=== PATIENT | female | born 1960 | race Caucasian/White ===

== ENCOUNTER 2017-07-04 08:03 | Outpatient (RCR) | payer BC, SELFPAY ==
[2017-06-19 01:00] VITALS: BP 94/66; PULSE 59; RESP 18; TEMP 36
[2017-07-04 08:04] VITALS: BP 121/73; PULSE 63; RESP 18; TEMP 36
--- NOTE | 2017-07-04 17:54 | PCM.WC.PN ---
Type of Wound Date of Service: 07/04/17 Chief Complaint: Nonhealing ulcers bilateral legs. History of Wound: Surgery 06/24/17 - 1. Surgical preparation left posterior leg with incision and drainage and excisional debridement involving underlying tendon nonhealing ulcer (12 cm2). 2. Surgical preparation left inferolateral leg with incision and drainage and excisional debridement involving underlying muscle nonhealing ulcer (18 cm2). 3. Surgical preparation left superolateral leg with incision and drainage and excisional debridement involving underlying muscle nonhealing ulcer (24 cm2). 4. Surgical preparation left anterior lower leg with incision and drainage and excisional debridement involving underlying tendon and muscle nonhealing ulcer (30 cm2). 5. Surgical preparation right lateral leg with incision and drainage and excisional debridement involving underlying fascia nonhealing ulcer (15.75 cm2). 6. Surgical preparation right anterosuperior leg with incision and drainage and excisional debridement involving underlying fascia nonhealing ulcer (6.25 cm2). 7. Surgical preparation right lower leg/anterior ankle with incision and drainage and excisional debridement involving underlying periosteum nonhealing ulcer (16 cm2). 8. Surgical preparation right medial ankle with incision and drainage and excisional debridement involving underlying muscle nonhealing ulcer (8 cm2). Wound care - Silver with NICKY wrap for compression. Operative culture - left leg - Staphylococcus aureus, Pasteurella species, Clostridium group and right leg - Staphylococcus aureus and Pasteurella multocida. She was discharged to [facility] on Ceftriaxone. Pathology - Ulcerations and microabscesses and no carcinoma seen. Prealbumin from 06/25/17 was 24.2. She takes nutritional supplementation with protein to help the healing process. Today she denies fever. Her appetite is good. She states the wound care is more tolerable with the addition of Duragesic Patch, Valium, Dilaudid, and Neurontin. Progress of Wound: Recent surgery on 06/24/17. - Physical Exam Vital Signs Temp Pulse Resp BP 96.8 F L 63 18 121/73 H 07/04/17 08:04 07/04/17 08:04 07/04/17 08:04 07/04/17 08:04 Wound Measurements and Assessment WC - Nurse 1 - General Ulcer Measurement Start: 07/04/17 08:04 Freq: Status: Active Protocol: Activity Type Activity Date Activity User E-Sign Co-Sign Detail Recorded Client Recorded Date Recorded By Document 07/04/17 08:04 [facility] [id number] 07/04/17 08:30 [facility] 07/04/17 08:04 Wound Center Nurse 1 [Ulcer Assessment Protocol: WC.WD.LOC] #10 R Med Ankle -Combined with other wound Yes -Combined with (Name of Wound-Exactly RT LOWER LEG as it is documented) -Current Size (cm) - Length 3.8 -Current Size (cm) - Width 6 -Current Size (cm) - Depth 1.3 -Total Square Cm 22.8 -Date of Last Picture (Recall this 07/04/17 field) -Photo Taken Yes -Epithelialization None Present -Tunneling No -Undermining/Tunneling No -Exudate Amt Large (67-100%) -Exudate Type Serosanguineous -Wound Margin Distinct, Outline Attached -Granulation Amt Small (1-33%) -Granulation Quality Pale [place] -Slough/Fibrin Yes -Necrosis Amt Large (67-100%) -Necrotic Tissue Type Adherent Slough -Structure Exposed Fascia -Texture (Riddhi-wound Skin Appearance) Scarring -Moisture (Riddhi-wound Skin Appearance Assessed ) -Color (Riddhi-wound Skin Appearance) Erythema -Temperature (Riddhi-wound Skin No Abnormality Appearance) (Pt Warm) -Tenderness on Palpation (Riddhi-wound Yes Skin Appearance) -Ulcer Cleansing Wound Cleanser -Foul Odor after Cleansing No -Anesthetic Used 4% Lidocaine Solution #6 R Sup [place] -Combined with other wound No -Current Size (cm) - Length 2.7 -Current Size (cm) - Width 2.5 -Current Size (cm) - Depth 0.7 -Total Square Cm 6.75 -Date of Last Picture (Recall this 07/04/17 field) -Photo Taken Yes -Undermining/Tunneling Yes -Undermining/Tunneling Starts (O' 12 clock) -Undermining/Tunneling Ends (O'clock) 12 -Maximum Distance (cm) 0.8 -Circular Undermining Yes -Exudate Amt Large (67-100%) -Exudate Type Serosanguineous -Wound Margin Distinct, Outline Attached -Granulation Amt Small (1-33%) -Granulation Quality Red -Slough/Fibrin Yes -Necrosis Amt Large (67-100%) -Necrotic Tissue Type Adherent Slough -Structure Exposed Fascia -Texture (Riddhi-wound Skin Appearance) Scarring -Color (Riddhi-wound Skin Appearance) Erythema -Temperature (Riddhi-wound Skin No Abnormality Appearance) (Pt Warm) -Tenderness on Palpation (Riddhi-wound Yes Skin Appearance) -Ulcer Cleansing Wound Cleanser -Foul Odor after Cleansing No -Anesthetic Used 4% Lidocaine Solution #5 R Lat Leg -Combined with other wound No -Current Size (cm) - Length 4.5 -Current Size (cm) - Width 3.3 -Current Size (cm) - Depth 0.8 -Total Square Cm 14.85 -Date of Last Picture (Recall this 07/04/17 field) -Photo Taken Yes -Tunneling No -Undermining/Tunneling No -Exudate Amt Large (67-100%) -Exudate Type Serosanguineous -Wound Margin Distinct, Outline Attached -Granulation Amt Large (67-100%) -Granulation Quality [place] -Slough/Fibrin Yes -Necrosis Amt Small (1-33%) -Necrotic Tissue Type Adherent Slough -Structure Exposed Tendon -Texture (Riddhi-wound Skin Appearance) Scarring -Moisture (Riddhi-wound Skin Appearance Assessed ) -Color (Riddhi-wound Skin Appearance) Erythema -Temperature (Riddhi-wound Skin No Abnormality Appearance) (Pt Warm) -Tenderness on Palpation (Riddhi-wound Yes Skin Appearance) -Ulcer Cleansing Wound Cleanser -Foul Odor after Cleansing No -Anesthetic Used 4% Lidocaine Solution #4 L Lower [place] -Combined with other wound No -Current Size (cm) - Length 5.6 -Current Size (cm) - Width 4.6 -Current Size (cm) - Depth 0.8 -Total Square Cm 25.76 -Date of Last Picture (Recall this 07/04/17 field) -Photo Taken Yes -Epithelialization None Present -Tunneling No -Undermining/Tunneling No -Exudate Amt Large (67-100%) -Exudate Type Serosanguineous -Wound Margin Distinct, Outline Attached -Granulation Amt Medium (34-66%) -Granulation Quality Red -Slough/Fibrin Yes -Necrosis Amt Medium (34-66%) -Necrotic Tissue Type Adherent Slough -Structure Exposed Tendon -Texture (Riddhi-wound Skin Appearance) Scarring -Moisture (Riddhi-wound Skin Appearance Assessed ) -Color (Riddhi-wound Skin Appearance) Erythema -Temperature (Riddhi-wound Skin No Abnormality Appearance) (Pt Warm) -Tenderness on Palpation (Riddhi-wound Yes Skin Appearance) -Ulcer Cleansing Wound Cleanser -Foul Odor after Cleansing No -Anesthetic Used 4% Lidocaine Solution #3 L Lat Sup -Combined with other wound No -Combined with (Name of Wound-Exactly #2 LT LAT as it is documented) INFERIOR -Current Size (cm) - Length 8 -Current Size (cm) - Width 6 -Current Size (cm) - Depth 1.7 -Total Square Cm 48 -Date of Last Picture (Recall this 07/04/17 field) -Photo Taken Yes -Epithelialization None Present -Tunneling No -Undermining/Tunneling No -Exudate Amt Large (67-100%) -Exudate Type Serosanguineous -Wound Margin Distinct, Outline Attached -Granulation Amt Medium (34-66%) -Granulation Quality Pale Red -Slough/Fibrin Yes -Necrosis Amt Medium (34-66%) -Necrotic Tissue Type Adherent Slough -Structure Exposed Fascia -Texture (Riddhi-wound Skin Appearance) Scarring -Moisture (Riddhi-wound Skin Appearance Assessed ) -Color (Riddhi-wound Skin Appearance) Erythema -Temperature (Riddhi-wound Skin No Abnormality Appearance) (Pt Warm) -Tenderness on Palpation (Riddhi-wound Yes Skin Appearance) -Ulcer Cleansing Wound Cleanser -Foul Odor after Cleansing No -Anesthetic Used 4% Lidocaine Solution #1 L Post Leg -Combined with other wound No -Current Size (cm) - Length 2.5 -Current Size (cm) - Width 2.6 -Current Size (cm) - Depth 0.8 -Total Square Cm 6.50 -Date of Last Picture (Recall this 07/04/17 field) -Photo Taken Yes -Epithelialization None Present -Tunneling No -Undermining/Tunneling No -Exudate Amt Large (67-100%) -Exudate Type Serosanguineous -Wound Margin Distinct, Outline Attached -Granulation Amt Small (1-33%) -Granulation Quality [place] -Slough/Fibrin Yes -Necrosis Amt Large (67-100%) -Necrotic Tissue Type Adherent Slough -Texture (Riddhi-wound Skin Appearance) Scarring -Moisture (Riddhi-wound Skin Appearance Assessed ) -Color (Riddhi-wound Skin Appearance) Erythema -Temperature (Riddhi-wound Skin No Abnormality Appearance) (Pt Warm) -Tenderness on Palpation (Riddhi-wound Yes Skin Appearance) -Ulcer Cleansing Wound Cleanser -Foul Odor after Cleansing No -Anesthetic Used 4% Lidocaine Solution WC - Nurse 2 - General Ulcer CM Notes Start: 07/04/17 08:04 Freq: Status: Active Protocol: Activity Type Activity Date Activity User E-Sign Co-Sign Detail Recorded Client Recorded Date Recorded By Document 07/04/17 08:47 [id number] 07/04/17 08:48 07/04/17 08:47 Wound Center Nurse 2 [Procedure/Treatment] #10 R Med Ankle -Correct Patient No -Correct Side, Site, Position No -Correct Procedure No -Procedure Performed No #6 R Sup [place] -Correct Patient No -Correct Side, Site, Position No -Correct Procedure No -Procedure Performed No #5 R Lat Leg -Correct Patient No -Correct Side, Site, Position No -Correct Procedure No -Procedure Performed No #4 L Lower [place] -Correct Patient No -Correct Side, Site, Position No -Correct Procedure No -Procedure Performed No #3 L Lat Sup -Correct Patient No -Correct Side, Site, Position No -Correct Procedure No -Procedure Performed No #1 L Post Leg -Correct Patient No -Correct Side, Site, Position No -Correct Procedure No -Procedure Performed No [See Physician Procedure note for Specifics] Pain Scale: 0-10 Numeric [Pain] -Is Patient Pain Free? Yes Debridement Note Post-Debridement Measurements/Treatment - Nurse 2 - General Ulcer CM Notes Start: 07/04/17 08:04 Freq: Status: Active Protocol: Activity Type Activity Date Activity User E-Sign Co-Sign Detail Recorded Client Recorded Date Recorded By Document 07/04/17 08:47 [id number] 07/04/17 08:48 07/04/17 08:47 Wound Center Nurse 2 #10 R Med Ankle -Correct Patient No -Correct Side, Site, Position No -Correct Procedure No -Procedure Performed No #6 R Sup [place] -Correct Patient No -Correct Side, Site, Position No -Correct Procedure No -Procedure Performed No #5 R Lat Leg -Correct Patient No -Correct Side, Site, Position No -Correct Procedure No -Procedure Performed No #4 L Lower [place] -Correct Patient No -Correct Side, Site, Position No -Correct Procedure No -Procedure Performed No #3 L Lat Sup -Correct Patient No -Correct Side, Site, Position No -Correct Procedure No -Procedure Performed No #1 L Post Leg -Correct Patient No -Correct Side, Site, Position No -Correct Procedure No -Procedure Performed No Pain Scale: 0-10 Numeric Is Patient Pain Free? Yes Wound debrided: #1 Left posterior leg. Laterality: Left Wound Grade/Stage: 2. No debridement was completed today - Patient had recent surgery on 06/24/17. - Additional Wound Wound debrided: #2 Left inferolateral leg. Laterality: Left Wound Grade/Stage: 2. Patient tolerated procedure: - - No debridement was done today as the patient had recent surgery on 06/24/17. - Additional Wound Wound debrided: #3 Left superolateral leg. Laterality: Left Wound Grade/Stage: 2. Patient tolerated procedure: - - No debridement was done today as the patient had recent surgery on 06/24/17. - Additional Wound Wound debrided: #4 Left anterior lower leg. Laterality: Left Wound Grade/Stage: 2. Patient tolerated procedure: - - No debridement was done today as the patient had recent surgery on 06/24/17. - Additional Wound Wound debrided: #5 Right lateral leg. Laterality: Right Wound Grade/Stage: 2. Patient tolerated procedure: - - No debridement was done today as the patient had recent surgery on 06/24/17. - Additional Wound Wound debrided: #6 Right anterosuperior leg. Laterality: Right Wound Grade/Stage: 2. Patient tolerated procedure: - - No debridement was done today as the patient had recent surgery on 06/24/17. - Additional Wound Wound debrided: #9 Right lower leg/anterior ankle. Laterality: Right Wound Grade/Stage: 2. Patient tolerated procedure: - - No debridement was done today as the patient had recent surgery on 06/24/17. - Additional Wound Wound debrided: #10 Right medial ankle. Laterality: Right Wound Grade/Stage: 2. Patient tolerated procedure: - - No debridement was done today as the patient had recent surgery on 06/24/17. Assessment/Plan Active Problems (Last Updated 06/28/17 @ 11:52 by Israel Anne DO) Glioblastoma multiforme (Chronic) Assessment: 1. Nonhealing ulcer left posterior leg. 2. Nonhealing ulcer left lateral inferior leg. 3. Nonhealing ulcer left lateral superior leg. 4. Nonhealing ulcer left lower anterior leg. 5. Nonhealing ulcer right lateral leg. 6. Nonhealing ulcer right anterosuperior leg. 7. Nonhealing ulcer right lower leg/anterior ankle. 8. Nonhealing ulcer right medial ankle. 9. Brain tumor - receiving chemotherapy. Plan: After her recent surgery on 06/24/17, Wound care was begun with Silver dressing changes daily followed by NICKY wrap for compression. Continue IV Ceftriaxone for the culture showing Staphlococcus aureus and Pasteurella multocida on the right leg and Staphylococcus aureus and Pasteurella species and Clostridium group on the left leg. Her Prealbumin from 06/25/17 was 24.2. Continue nutritional supplementation with protein to help the healing process. Followup 2 weeks. Will see at [place] if necessary if there are transportation issues. She is also in the process of going to TCU if accepted. Can see at TCU in the interim as well. Patient needs operative debridement of these ulcers since they are too painful for debridement at the wound center. It will make the wound care easier and allow better healing. However she is receiving chemotherapy for her brain tumor and is immunocompromised. I called her Oncology team at the [facility], and they stated her chemotherapy is on hold for now. So we can proceed with surgical debridement at this time. Her latest platelet count from [place] is 80k and the WBC was 2.5. In a timely fashion, will return to the OR for wound closure with skin grafting. After the operative debridements, she will probably be admitted overnight to make sure there are no issues after the surgery. Patient was informed of the risks and complications of the procedure including alternatives to surgery. These were discussed with her personally. She voices understanding and wishes to proceed. Surgery would be done under general anesthesia. Tissue will be sent to Pathology for the analysis to rule out carcinoma and to Microbiology for culture. A positive culture may necessitate antibiotic modification. Keep her legs elevated when sitting. Followup 2 weeks.
== END 2017-07-17 23:59 ==
LOC: WC 08:03
PROVIDERS: Family Provider Student in an Organized Health Care Education/Training Program; PCP Student in an Organized Health Care Education/Training Program; Visit Provider Surgery
DX: L97.825 Non-pressure chronic ulcer of other part of left lower leg with muscle involvement without evidence of necrosis (principal); L97.812 Non-pressure chronic ulcer of other part of right lower leg with fat layer exposed; L97.315 Non-pressure chronic ulcer of right ankle with muscle involvement without evidence of necrosis; D49.6 Neoplasm of unspecified behavior of brain; Z79.899 Other long term (current) drug therapy
CPT/HCPCS: 99215; G0463

== ENCOUNTER 2017-07-08 13:00 | Inpatient (IN) | payer BC, SELFPAY ==
[2017-07-08 13:08] VITALS: BMI 27.6; BMI 27.7
--- NOTE | 2017-07-08 13:23 | NURSING ---
Addendum entered by Jen Maradiaga 07/08/17 13:24: FROM [facility] Original Note: ARRIVED AMBULATING W/FAMILY AT SIDE.
[2017-07-08] MEDS: HYDROmorphone 2 MG TABLET PO (14:59)
[2017-07-08 16:25] VITALS: BP 103/65; PULSE 54; RESP 20; TEMP 36.5; O2SAT 95
[2017-07-08] MEDS: Docusate Sodium 100 MG Capsule PO (16:54)
[2017-07-08] MEDS: Gabapentin 300 MG Capsule PO (16:54)
[2017-07-08] MEDS: levETIRAcetam 750 MG Tablet PO (16:54)
[2017-07-08] MEDS: Famotidine 20 MG Tablet PO (16:54)
--- NOTE | 2017-07-08 17:00 | PCM.HP.STD ---
Problem List (1) Glioblastoma multiforme Status: Chronic (2) Ulcers of both lower legs Status: Acute Comment: multiple infected ulcers bilateral legs L97.919 (3) Debility, unspecified Status: Acute History of Present Illness Date of Admission: 07/08/17 Chief Complaint: Here for rehabilitation, strengthening, intravenous antibiotics, wound care, prior to discharge home. The patient is a 57 year old Female with below past medical history presented to [facility] Emergency Department 06/20/2017 for wound pain control. Chronic lower extremity wounds thought complication of chemotherapy, steroids. Flagyl, Bactrim 2 weeks prior. Percocet for pain. Patient has been receiving chemotherapy, steroids for treatment of glioblastoma. Glioblastoma originally treated with surgical resection 10/2015. Dilaudid given for pain. 06/24/2017 Admit to hospital per Dr. Moya. Chemotherapy x 4 for chemotherapy. Bactrim, Flagyl to cover. Polymicrobial wound culture results. 06/24/2017 Dr. Moya incised, drained, debrided bilateral lower extremity ulcers. Operative cultures grew multiple organisms. PICC line for Rocephin IV. Will need skin grafts to help heal wounds. Wounds need to heal prior to continuing chemotherapy. 06/28/2017 Discharged to [facility]. 07/08/20 Admit to TCU for rehabilitation, strengthening, intravenous antibiotics, wound care, prior to discharge home. Past Medical History Past Medical History (Chronic Problems): Chronic Problems (Last Updated 06/28/17 @ 11:52 by Israel Anne DO) Glioblastoma multiforme (Chronic) Allergies adhesive tape Adverse Reaction (Verified 06/24/17 09:09) VERY THIN STEROID SKIN WILL REMOVE SKIN IF ON TOO LONG Home Medications: Ambulatory Orders Medication Instructions Recorded Cholecalciferol (Vitamin D3) 5,000 unit PO DAILY 03/02/17 [Vitamin D3] Dexamethasone 3 mg PO DAILY 03/02/17 Famotidine [Pepcid] 20 mg PO BID 03/02/17 Multivitamin [Daily Multiple 1 each PO DAILY 03/02/17 Vitamin] Ondansetron [Zofran] 8 mg PO Q8H PRN PRN 03/02/17 Levetiracetam 750 mg PO BID 05/03/17 Lisinopril 1 tablet PO DAILY 05/03/17 Acetaminophen [Tylenol Tablet] 650 mg PO Q6H PRN PRN tablet 06/28/17 Diazepam [Valium] 5 mg PO 4X/DAY PRN PRN #30 tab 06/28/17 HydromorphONE [Dilaudid] 2 - 4 mg PO 4X/DAY PRN PRN #50 tab 06/28/17 Bisacodyl 10 mg RECTAL QHS PRN PRN 07/08/17 Calcium (Elemental) [Os-Guido 500] 500 mg PO DAILY 07/08/17 Ceftriaxone [Rocephin] 1 gm IV Q12 07/08/17 Docusate Sodium [Colace] 100 mg PO BID 07/08/17 Enoxaparin Sodium [Lovenox] 40 mg pe SC DAILY@0600 07/08/17 Fentanyl [Duragesic] 50 mcg TRANSDERM. Q3D@1000 07/08/17 Gabapentin [Neurontin] 300 mg PO BIDCM 07/08/17 Lactobacillus Acidophilus 1 each PO DAILY 07/08/17 [Acidophilus Lactobacilli] Magnesium Hydroxide [Milk Of 30 ml PO DAILY PRN PRN 07/08/17 Magnesia] Ondansetron [Zofran] 4 mg IV Q6H PRN PRN 07/08/17 ProMETHAzine [Phenergan] 25 mg PO Q4H PRN PRN 07/08/17 Surgical History: - - Brain tumor resection 10/2015. 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 Lives: Alone Smoking Status: Never smoker Tobacco Use: Non-smoker Alcohol: None Drugs: None - *Family History Maternal History Items: No pertinent history Paternal History Items: No pertinent history Review of Systems Constitutional: Denies: Chills, Fever, Weight Change HEENT: Denies: Head Aches, Sinus Congestion, Sinus Drainage Cardiovascular: Denies: Chest Pain, Palpitations Respiratory: Denies: Cough, Shortness of breath at rest, Sputum production Gastrointestinal: Denies: Abdominal Pain, Nausea, Vomiting Genitourinary: Denies: Dysuria Musculoskeletal: Denies: Joint Pain, Joint Tenderness Skin: Denies: Rash, Wounds Neurological: Denies: Numbness, Tingling, Focal weakness Psychiatric: Denies: Anxiety, Depression, Homicidal Ideations, Suicidal Ideations Hematologic/ Lymphatic: Denies: Easy Bruising, Easy Bleeding VTE Information - Inpt Only VTE Present on Admission: No VTE Mechan Device Prophylaxis: Knee High DANELLE Lopez VTE Pharm Prophylaxis ordered?: Yes - Physical Exam General: Alert, Oriented x3, Cooperative HEENT: Atraumatic, PERRLA, EOMI, Normocephalic Neck: Supple, No JVD, Negative Carotid Bruits Lungs: Clear to auscultation, Normal air movement Cardiovascular: Regular rate, No murmurs Abdomen: Bowel Sounds Present, Soft, Non Tender Extremities: No edema, Capillary Refill Less than 3 Seconds, - - Bilateral lower extremities wrapped with dressing, NICKY wraps. Skin: No rashes, No breakdown Musculoskeletal: No Tenderness to Palpation of Joints or Extremities Neurological: Cranial nerves II-XII grossly intact Psych/Mental Status: Normal Affect, Appropriate Vital Signs Temp Pulse Resp BP Pulse Ox 97.7 F L 54 L 20 H 103/65 95 07/08/17 16:25 07/08/17 16:25 07/08/17 16:25 07/08/17 16:25 07/08/17 16:25 Oxygen Delivery Method Room Air Weight: 82.55 kg Body Mass Index (BMI) 27.6 Assessment/Plan 57 year old female with below past medical history significant for glioblastoma, hospitalized for chronic bilateral lower extremity ulcers, underwent incision, drainage, debridement 06/24/[address] Moya, admitted to TCU for rehabilitation, strengthening, intravenous antibiotics, wound care, prior to discharge home. Resident will need skin grafts with Dr. Moya to help with ulcer healing. Debility - PT/OT. Pain - Tylenol 1000MG Q8H PRN mild pain, Fentanyl patch 50MCG 1 patch TD Q72H, Dilaudid 4MG PO 4x/day PRN severe pain. Bowel - Miralax 17GM daily, Senna/colace 2 tablets BID, Dulcolax 10MG [place] QHS PRN. Adult immunization - Administer Prevnar 13 and/or Pneumovax 23 as necessary, Fluvax given. DVT prophylaxis - Lovenox 40MG SC daily. Calcium deficiency - Calcium 500MG daily. Bilateral lower extremity wound infections - Ceftriaxone 1GM IV Q12H. Vitamin D deficiency - D3 5000IU daily. Glioblastoma status post resection 10/2015 - Decadron 3MG daily, chemotherapy after leg wounds heal. Anxiety - Diazepam 5MG Q6H PRN. Nutrition - Ensure Enlive 120ML 4x/day, MVI daily. GERD - Famotidine 20MG BID, MOM 30ML daily PRN. Neuropathic pain - Gabapentin 300MG BID. GI prophylaxis - Lactobacillus 1 tablet daily. Seizure disorder - Keppra 750MG BID. Hypertension - Lisinopril 5MG daily. Nausea - Zofran 8MG PO Q8H PRN, Zofran 4MG IV Q6H PRN, Compazine 25MG Q4H PRN.
--- NOTE | 2017-07-08 17:10 | HP.PCM_ITS ---
Problem List (1) Glioblastoma multiforme Status: Chronic (2) Ulcers of both lower legs Status: Acute Comment: multiple infected ulcers bilateral legs L97.919 (3) Debility, unspecified Status: Acute History of Present Illness Date of Admission: 07/08/17 Chief Complaint: Here for rehabilitation, strengthening, intravenous antibiotics , wound care, prior to discharge home. The patient is a 57 year old Female with below past medical history presented to [facility] Emergency Department 06/20/2017 for wound pain control. Chronic lower extremity wounds thought complication of chemotherapy, steroids. Flagyl, Bactrim 2 weeks prior. Percocet for pain. Patient has been receiving chemotherapy, steroids for treatment of glioblastoma. Glioblastoma originally treated with surgical resection 10/2015. Dilaudid given for pain. 06/24/2017 Admit to hospital per Dr. Moya. Chemotherapy x 4 for chemotherapy. Bactrim, Flagyl to cover. Polymicrobial wound culture results. 06/24/2017 Dr. Moya incised, drained, debrided bilateral lower extremity ulcers. Operative cultures grew multiple organisms. PICC line for Rocephin IV. Will need skin grafts to help heal wounds. Wounds need to heal prior to continuing chemotherapy. 06/28/2017 Discharged to [facility]. 07/08/20 Admit to TCU for rehabilitation, strengthening, intravenous antibiotics , wound care, prior to discharge home. Past Medical History Past Medical History (Chronic Problems): Chronic Problems (Last Updated 06/28/17 @ 11:52 by Israel Anne DO) Glioblastoma multiforme (Chronic) Allergies adhesive tape Adverse Reaction (Verified 06/24/17 09:09) VERY THIN STEROID SKIN WILL REMOVE SKIN IF ON TOO LONG Home Medications: Ambulatory Orders Medication Instructions Recorded Cholecalciferol (Vitamin D3) 5,000 unit PO DAILY 03/02/17 [Vitamin D3] Dexamethasone 3 mg PO DAILY 03/02/17 Famotidine [Pepcid] 20 mg PO BID 03/02/17 Multivitamin [Daily Multiple 1 each PO DAILY 03/02/17 Vitamin] Ondansetron [Zofran] 8 mg PO Q8H PRN PRN 03/02/17 Levetiracetam 750 mg PO BID 05/03/17 Lisinopril 1 tablet PO DAILY 05/03/17 Acetaminophen [Tylenol Tablet] 650 mg PO Q6H PRN PRN tablet 06/28/17 Diazepam [Valium] 5 mg PO 4X/DAY PRN PRN #30 tab 06/28/17 HydromorphONE [Dilaudid] 2 - 4 mg PO 4X/DAY PRN PRN #50 tab 06/28/17 Bisacodyl 10 mg RECTAL QHS PRN PRN 07/08/17 Calcium (Elemental) [Os-Guido 500] 500 mg PO DAILY 07/08/17 Ceftriaxone [Rocephin] 1 gm IV Q12 07/08/17 Docusate Sodium [Colace] 100 mg PO BID 07/08/17 Enoxaparin Sodium [Lovenox] 40 mg pe SC DAILY@0600 07/08/17 Fentanyl [Duragesic] 50 mcg TRANSDERM. Q3D@1000 07/08/17 Gabapentin [Neurontin] 300 mg PO BIDCM 07/08/17 Lactobacillus Acidophilus 1 each PO DAILY 07/08/17 [Acidophilus Lactobacilli] Magnesium Hydroxide [Milk Of 30 ml PO DAILY PRN PRN 07/08/17 Magnesia] Ondansetron [Zofran] 4 mg IV Q6H PRN PRN 07/08/17 ProMETHAzine [Phenergan] 25 mg PO Q4H PRN PRN 07/08/17 Surgical History: - - Brain tumor resection 10/2015. 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 MANAGER History: No pertinent LOAN AND CREDIT MANAGER history Lives: Alone Smoking Status: Never smoker Tobacco Use: Non-smoker Alcohol: None Drugs: None - *Family History Maternal History Items: No pertinent history Paternal History Items: No pertinent history Review of Systems Constitutional: Denies: Chills, Fever, Weight Change HEENT: Denies: Head Aches, Sinus Congestion, Sinus Drainage Cardiovascular: Denies: Chest Pain, Palpitations Respiratory: Denies: Cough, Shortness of breath at rest, Sputum production Gastrointestinal: Denies: Abdominal Pain, Nausea, Vomiting Genitourinary: Denies: Dysuria Musculoskeletal: Denies: Joint Pain, Joint Tenderness Skin: Denies: Rash, Wounds Neurological: Denies: Numbness, Tingling, Focal weakness Psychiatric: Denies: Anxiety, Depression, Homicidal Ideations, Suicidal Ideations Hematologic/ Lymphatic: Denies: Easy Bruising, Easy Bleeding VTE Information - Inpt Only VTE Present on Admission: No VTE Mechan Device Prophylaxis: Knee High DANELLE Lopez VTE Pharm Prophylaxis ordered?: Yes - Physical Exam General: Alert, Oriented x3, Cooperative HEENT: Atraumatic, PERRLA, EOMI, Normocephalic Neck: Supple, No JVD, Negative Carotid Bruits Lungs: Clear to auscultation, Normal air movement Cardiovascular: Regular rate, No murmurs Abdomen: Bowel Sounds Present, Soft, Non Tender Extremities: No edema, Capillary Refill Less than 3 Seconds, - - Bilateral lower extremities wrapped with dressing, NICKY wraps. Skin: No rashes, No breakdown Musculoskeletal: No Tenderness to Palpation of Joints or Extremities Neurological: Cranial nerves II-XII grossly intact Psych/Mental Status: Normal Affect, Appropriate Vital Signs Temp Pulse Resp BP Pulse Ox 97.7 F L 54 L 20 H 103/65 95 07/08/17 16:25 07/08/17 16:25 07/08/17 16:25 07/08/17 16:25 07/08/17 16:25 Oxygen Delivery Method Room Air Weight: 82.55 kg Body Mass Index (BMI) 27.6 Assessment/Plan 57 year old female with below past medical history significant for glioblastoma , hospitalized for chronic bilateral lower extremity ulcers, underwent incision , drainage, debridement 06/24/[address] Moya, admitted to TCU for rehabilitation, strengthening, intravenous antibiotics, wound care, prior to discharge home. Resident will need skin grafts with Dr. Moya to help with ulcer healing. * Debility - PT/OT. * Pain - Tylenol 1000MG Q8H PRN mild pain, Fentanyl patch 50MCG 1 patch TD Q72H , Dilaudid 4MG PO 4x/day PRN severe pain. * Bowel - Miralax 17GM daily, Senna/colace 2 tablets BID, Dulcolax 10MG FL QHS PRN. * Adult immunization - Administer Prevnar 13 and/or Pneumovax 23 as necessary, Fluvax given. * DVT prophylaxis - Lovenox 40MG SC daily. * Calcium deficiency - Calcium 500MG daily. * Bilateral lower extremity wound infections - Ceftriaxone 1GM IV Q12H. * Vitamin D deficiency - D3 5000IU daily. * Glioblastoma status post resection 10/2015 - Decadron 3MG daily, chemotherapy after leg wounds heal. * Anxiety - Diazepam 5MG Q6H PRN. * Nutrition - Ensure Enlive 120ML 4x/day, MVI daily. * GERD - Famotidine 20MG BID, MOM 30ML daily PRN. * Neuropathic pain - Gabapentin 300MG BID. * GI prophylaxis - Lactobacillus 1 tablet daily. * Seizure disorder - Keppra 750MG BID. * Hypertension - Lisinopril 5MG daily. * Nausea - Zofran 8MG PO Q8H PRN, Zofran 4MG IV Q6H PRN, Compazine 25MG Q4H PRN.
[2017-07-08] MEDS: HYDROmorphone 2 MG TABLET 4 MG PO (19:54)
[2017-07-08] MEDS: Ceftriaxone 1 GM/50 ML BAG IV (20:15)
[2017-07-08] MEDS: 0.9% NaCl PICC Flush IV (20:16)
[2017-07-09] MEDS: levETIRAcetam 750 MG Tablet PO ×2 (05:49→17:00)
[2017-07-09] MEDS: Famotidine 20 MG Tablet PO ×2 (05:49→17:00)
[2017-07-09] MEDS: Enoxaparin 40 MG/0.4 ML Syringe SC (05:49)
[2017-07-09] MEDS: Lisinopril 5 MG Tablet PO (05:49)
[2017-07-09] MEDS: Ceftriaxone 1 GM/50 ML BAG IV ×2 (08:55→20:49)
[2017-07-09] MEDS: Gabapentin 300 MG Capsule PO ×2 (08:58→17:00)
[2017-07-09] MEDS: Multivitamins,Therapeutic Tablet 1 TABLET PO (08:58)
[2017-07-09] MEDS: 0.9% NaCl PICC Flush IV ×2 (08:58→20:52)
[2017-07-09] MEDS: Calcium (Elemental) 500 MG Tablet PO (08:58)
--- NOTE | 2017-07-09 12:19 | PCM.PN.RX ---
<Nasir Campbell - Last Filed: 07/09/17 12:19> Progress Note - Pharmacy Subjective: TCU Admission Objective: Allergies adhesive tape Adverse Reaction (Verified 06/24/17 09:09) VERY THIN STEROID SKIN WILL REMOVE SKIN IF ON TOO LONG Home Medications Medication Instructions Recorded Cholecalciferol (Vitamin D3) 5,000 unit PO DAILY 03/02/17 [Vitamin D3] Dexamethasone 3 mg PO DAILY 03/02/17 Famotidine [Pepcid] 20 mg PO BID 03/02/17 Multivitamin [Daily Multiple 1 each PO DAILY 03/02/17 Vitamin] Ondansetron [Zofran] 8 mg PO Q8H PRN PRN 03/02/17 Levetiracetam 750 mg PO BID 05/03/17 Lisinopril 1 tablet PO DAILY 05/03/17 Acetaminophen [Tylenol Tablet] 650 mg PO Q6H PRN PRN tablet 06/28/17 Diazepam [Valium] 5 mg PO 4X/DAY PRN PRN #30 tab 06/28/17 HydromorphONE [Dilaudid] 2 - 4 mg PO 4X/DAY PRN PRN #50 tab 06/28/17 Bisacodyl 10 mg RECTAL QHS PRN PRN 07/08/17 Calcium (Elemental) [Os-Guido 500] 500 mg PO DAILY 07/08/17 Ceftriaxone [Rocephin] 1 gm IV Q12 07/08/17 Docusate Sodium [Colace] 100 mg PO BID 07/08/17 Enoxaparin Sodium [Lovenox] 40 mg pe SC DAILY@0600 07/08/17 Fentanyl [Duragesic] 50 mcg TRANSDERM. Q3D@1000 07/08/17 Gabapentin [Neurontin] 300 mg PO BIDCM 07/08/17 Lactobacillus Acidophilus 1 each PO DAILY 07/08/17 [Acidophilus Lactobacilli] Magnesium Hydroxide [Milk Of 30 ml PO DAILY PRN PRN 07/08/17 Magnesia] Ondansetron [Zofran] 4 mg IV Q6H PRN PRN 07/08/17 ProMETHAzine [Phenergan] 25 mg PO Q4H PRN PRN 07/08/17 Current Medications Generic Name Dose Route Start Last Admin Trade Name Freq PRN Reason Stop Dose Admin Acetaminophen 1,000 mg 07/08/17 17:25 Tylenol PO Q8H PRN PRN MILD PAIN (1-3/10) Bisacodyl 10 mg 07/08/17 14:07 Dulcolax RECTAL QHS PRN PRN Constipation Calcium Carbonate 500 mg 07/09/17 08:00 07/09/17 08:58 Os-Guido 500 PO 500 mg DAILYCM [facility] Administration Cholecalciferol 5,000 unit 07/09/17 08:00 07/09/17 09:00 Vitamin D PO 5,000 unit DAILY@0800 [facility] Administration Dexamethasone 3 mg 07/09/17 08:00 07/09/17 08:58 Decadron PO 3 mg DAILY@0800 [facility] Administration Diazepam 5 mg 07/08/17 14:07 Valium PO Q6H PRN PRN SPASMS Enoxaparin Sodium 40 mg 07/09/17 06:00 07/09/17 05:49 Lovenox SC 40 mg DAILY@0600 [facility] Administration Famotidine 20 mg 07/08/17 18:00 07/09/17 05:49 Pepcid PO 20 mg BID [facility] Administration Fentanyl 50 mcg 07/09/17 12:00 Duragesic TRANSDERM. Q3D@1000 [facility] Gabapentin 300 mg 07/08/17 17:00 07/09/17 08:58 [facility]urontin [facility] 300 [facility] Administration Heparin Sodium (Beef Lung) 500 unit 07/08/17 14:40 Heparin 500 Unit/5 Ml (100/Ml) IV UD PRN HEPARIN FLUSH Hydromorphone HCl 4 mg 07/08/17 17:25 07/08/17 19:54 Dilaudid PO 4 mg 4X/DAY PRN PRN Administration SEVERE PAIN (6-10/10) Ceftriaxone Sodium 1 gm in 50 mls @ 100 mls/hr 07/08/17 20:00 07/09/17 08:55 Rocephin IV 100 mls/hr Q12H [facility] Administration Sodium Chloride 1,000 mls @ 15 mls/hr 07/08/17 14:40 07/08/17 20:15 IV 15 mls/hr .Q48H PRN Administration SALINE FLUSH Lactobacillus Acidophilus 1 tablet 07/09/17 06:00 07/09/17 05:49 Acidophilus PO 1 tablet DAILY [facility] Administration Levetiracetam 750 mg 07/08/17 18:00 07/09/17 05:49 Keppra PO 750 mg BID [facility] Administration Lisinopril 5 mg 07/09/17 06:00 07/09/17 05:49 Zestril PO 5 mg DAILY [facility] Administration Magnesium Hydroxide 30 ml 07/08/17 14:07 Milk Of Magnesia PO DAILY PRN PRN Constipation Multivitamins 1 tablet 07/09/17 08:00 07/09/17 08:58 Multivitamin PO 1 tablet DAILY@0800 [facility] Administration Nutritional Formula 1 packet 07/09/17 08:00 07/09/17 08:59 Rodger - Bogard Flavor PO 1 packet BIDCM [facility] Administration Nutritional Formula (Lactose Free) 120 ml 07/08/17 17:00 07/09/17 05:54 Ensure Enlive PO 120 ml 4X/DAY [facility] Administration Ondansetron HCl 8 mg 07/08/17 14:07 Zofran PO Q8H PRN PRN NAUSEA Ondansetron HCl 4 mg 07/08/17 14:16 Zofran IV Q6H PRN PRN NAUSEA Polyethylene Glycol 17 gm 07/09/17 06:00 07/09/17 05:50 Miralax PO Not Given DAILY [facility] Promethazine HCl 25 mg 07/08/17 14:07 Phenergan PO Q4H PRN PRN NAUSEA/VOMITING Senna/Docusate Sodium 2 tablet 07/08/17 18:00 07/09/17 05:50 Senokot-S, Riddhi-Colace PO Not Given BID [facility] Sodium Chloride 10 - 20 ml 07/08/17 14:40 07/09/17 08:58 IV 20 ml UD PRN Administration PICC FLUSH Tuberculin PPD 5 tu 07/16/17 10:00 Tubersol, Aplisol, Ppd ID 07/16/17 10:01 X1 ONE Problem List (Last Updated 06/28/17 @ 11:52 by Israel Anne DO) Glioblastoma multiforme (Chronic) Vital Signs Temp Pulse Resp BP Pulse Ox 97.7 F L 54 L 20 H 103/65 95 07/08/17 16:25 07/08/17 16:25 07/08/17 16:25 07/08/17 16:25 07/08/17 16:25 Oxygen Delivery Method Room Air Weight: 82.55 kg Body Mass Index (BMI) 27.6 Assessment/Plan: 1) Pain APAP for mild pain, hydromorphone for severe pain, fentanyl patch, gabapentin, diazepam for spasm. Continue to monitor prn medication use, daily pain scores. 2) Oncology Dexamethasone daily. Continue to monitor BGT, for neurologic symptoms. 3) ID CTX for wound infection. Continue to monitor s/s infection. 4) BP Lisinopril. BP within goal range, no recent labs. Continue to monitor renal function, electrolytes, BP. 5) Seizure Levetiracetam twice daily. Continue to monitor for seizure. 6) GI Famotidine, Lactobacillus, prn ondansetron, prn promethazine. Continue to monitor prn medication use, s/s GI distress. 7) Nutrition Multivitamin, Rodger, Ensure, Ca, D. Continue to monitor clinically. 8) DVT PPx Enoxaparin daily. Continue to monitor s/s bleeding/clot. Psychotropic Medications: None Unnecessary Medications: None Bowel Regimen: 9) Senna/s, PEG, prn bisacodyl, MgOH prn. Continue to monitor prn medication use, for constipation/diarrhea. Date of Note:: 07/09/17 - Provider Comments Provider responsibility: Provider responsible to enter orders to implement recommendations <Regis Kirk Chi - Last Filed: 07/09/17 15:18> Progress Note - Pharmacy Subjective: [] Objective: Allergies adhesive tape Adverse Reaction (Verified 06/24/17 09:09) VERY THIN STEROID SKIN WILL REMOVE SKIN IF ON TOO LONG Home Medications Medication Instructions Recorded Cholecalciferol (Vitamin D3) 5,000 unit PO DAILY 03/02/17 [Vitamin D3] Dexamethasone 3 mg PO DAILY 03/02/17 Famotidine [Pepcid] 20 mg PO BID 03/02/17 Multivitamin [Daily Multiple 1 each PO DAILY 03/02/17 Vitamin] Ondansetron [Zofran] 8 mg PO Q8H PRN PRN 03/02/17 Levetiracetam 750 mg PO BID 05/03/17 Lisinopril 1 tablet PO DAILY 05/03/17 Acetaminophen [Tylenol Tablet] 650 mg PO Q6H PRN PRN tablet 06/28/17 Diazepam [Valium] 5 mg PO 4X/DAY PRN PRN #30 tab 06/28/17 HydromorphONE [Dilaudid] 2 - 4 mg PO 4X/DAY PRN PRN #50 tab 06/28/17 Bisacodyl 10 mg RECTAL QHS PRN PRN 07/08/17 Calcium (Elemental) [Os-Guido 500] 500 mg PO DAILY 07/08/17 Ceftriaxone [Rocephin] 1 gm IV Q12 07/08/17 Docusate Sodium [Colace] 100 mg PO BID 07/08/17 Enoxaparin Sodium [Lovenox] 40 mg pe SC DAILY@0600 07/08/17 Fentanyl [Duragesic] 50 mcg TRANSDERM. Q3D@1000 07/08/17 Gabapentin [Neurontin] 300 mg PO BIDCM 07/08/17 Lactobacillus Acidophilus 1 each PO DAILY 07/08/17 [Acidophilus Lactobacilli] Magnesium Hydroxide [Milk Of 30 ml PO DAILY PRN PRN 07/08/17 Magnesia] Ondansetron [Zofran] 4 mg IV Q6H PRN PRN 07/08/17 ProMETHAzine [Phenergan] 25 mg PO Q4H PRN PRN 07/08/17 Current Medications Generic Name Dose Route Start Last Admin Trade Name Freq PRN Reason Stop Dose Admin Acetaminophen 1,000 mg 07/08/17 17:25 Tylenol PO Q8H PRN PRN MILD PAIN (1-3/10) Bisacodyl 10 mg 07/08/17 14:07 Dulcolax RECTAL QHS PRN PRN Constipation Calcium Carbonate 500 mg 07/09/17 08:00 07/09/17 08:58 Os-Guido 500 PO 500 mg DAILYCM [facility] Administration Cholecalciferol 5,000 unit 07/09/17 08:00 07/09/17 09:00 Vitamin D PO 5,000 unit DAILY@0800 [facility] Administration Dexamethasone 3 mg 07/09/17 08:00 07/09/17 08:58 Decadron PO 3 mg DAILY@0800 [facility] Administration Diazepam 5 mg 07/08/17 14:07 Valium PO Q6H PRN PRN SPASMS Enoxaparin Sodium 40 mg 07/09/17 06:00 07/09/17 05:49 Lovenox SC 40 mg DAILY@0600 [facility] Administration Famotidine 20 mg 07/08/17 18:00 07/09/17 05:49 Pepcid PO 20 mg BID [facility] Administration Fentanyl 50 mcg 07/09/17 12:00 07/09/17 12:33 Duragesic TRANSDERM. 50 mcg Q3D@1000 [facility] Administration Gabapentin 300 mg 07/08/17 17:00 07/09/17 08:58 Neurontin PO 300 mg BIDCM [facility] Administration Heparin Sodium (Beef Lung) 500 unit 07/08/17 14:40 Heparin 500 Unit/5 Ml (100/Ml) IV UD PRN HEPARIN FLUSH Hydromorphone HCl 4 mg 07/08/17 17:25 07/09/17 13:15 Dilaudid PO 4 mg 4X/DAY PRN PRN Administration SEVERE PAIN (6-10/10) Ceftriaxone Sodium 1 gm in 50 mls @ 100 mls/hr 07/08/17 20:00 07/09/17 08:55 Rocephin IV 100 mls/hr Q12H [facility] Administration Sodium Chloride 1,000 mls @ 15 mls/hr 07/08/17 14:40 07/08/17 20:15 IV 15 mls/hr .Q48H PRN Administration SALINE FLUSH Lactobacillus Acidophilus 1 tablet 07/09/17 06:00 07/09/17 05:49 Acidophilus PO 1 tablet DAILY [facility] Administration Levetiracetam 750 mg 07/08/17 18:00 07/09/17 05:49 Keppra PO 750 mg BID [facility] Administration Lisinopril 5 mg 07/09/17 06:00 07/09/17 05:49 Zestril PO 5 mg DAILY [facility] Administration Magnesium Hydroxide 30 ml 07/08/17 14:07 Milk Of Magnesia PO DAILY PRN PRN Constipation Multivitamins 1 tablet 07/09/17 08:00 07/09/17 08:58 Multivitamin PO 1 tablet DAILY@0800 [facility] Administration Nutritional Formula 1 packet 07/09/17 08:00 07/09/17 08:59 Rodger - Bogard Flavor PO 1 packet BIDCM [facility] Administration Nutritional Formula (Lactose Free) 120 ml 07/08/17 17:00 07/09/17 12:33 Ensure Enlive PO 120 ml 4X/DAY [facility] Administration Ondansetron HCl 8 mg 07/08/17 14:07 Zofran PO Q8H PRN PRN NAUSEA Ondansetron HCl 4 mg 07/08/17 14:16 Zofran IV Q6H PRN PRN NAUSEA Polyethylene Glycol 17 gm 07/09/17 06:00 07/09/17 05:50 Miralax PO Not Given DAILY [facility] Promethazine HCl 25 mg 07/08/17 14:07 Phenergan PO Q4H PRN PRN NAUSEA/VOMITING Senna/Docusate Sodium 2 tablet 07/08/17 18:00 07/09/17 05:50 Senokot-S, Riddhi-Colace PO Not Given BID [facility] Sodium Chloride 10 - 20 ml 07/08/17 14:40 07/09/17 08:58 IV 20 ml UD PRN Administration PICC FLUSH Tuberculin PPD 5 tu 07/16/17 10:00 Tubersol, Aplisol, Ppd ID 07/16/17 10:01 X1 ONE Problem List (Last Updated 06/28/17 @ 11:52 by Israel Anne DO) Glioblastoma multiforme (Chronic) Vital Signs Temp Pulse Resp BP Pulse Ox 97.7 F L 54 L 20 H 103/65 95 07/08/17 16:25 07/08/17 16:25 07/08/17 16:25 07/08/17 16:25 07/08/17 16:25 Oxygen Delivery Method Room Air Weight: 82.55 kg Body Mass Index (BMI) 27.6 Sodium 140 mmol/L (136-145) 07/09/17 13:10 Potassium 4.1 mmol/L (3.5-5.1) 07/09/17 13:10 Chloride 99 mmol/L (98-107) 07/09/17 13:10 Carbon Dioxide 30.0 mmol/L (21.0-32.0) 07/09/17 13:10 Anion Gap 11 (5-15) 07/09/17 13:10 BUN 22 mg/dL (7-18) H 07/09/17 13:10 Creatinine 0.77 mg/dL (0.55-1.02) 07/09/17 13:10 Est GFR (MDRD) Af Amer 99 mL/min (>60) 07/09/17 13:10 Est GFR (MDRD) Non-Af 82 mL/min (>60) 07/09/17 13:10 BUN/Creatinine Ratio 28.6 RATIO (10-20) H 07/09/17 13:10 Glucose 150 mg/dL (70-110) H 07/09/17 13:10 Assessment/Plan: Psychotropic Medications: Unnecessary Medications: Bowel Regimen: - Provider Comments Provider responsibility: Provider responsible to enter orders to implement recommendations Provider Comments to Recommendations by Pharmacy: Agree
--- NOTE | 2017-07-09 12:27 | PHA.CONS_ITS ---
<Nasir Campbell - Last Filed: 07/09/17 12:19> Progress Note - Pharmacy Subjective: TCU Admission Objective: Allergies adhesive tape Adverse Reaction (Verified 06/24/17 09:09) VERY THIN STEROID SKIN WILL REMOVE SKIN IF ON TOO LONG Home Medications Medication Instructions Recorded Cholecalciferol (Vitamin D3) 5,000 unit PO DAILY 03/02/17 [Vitamin D3] Dexamethasone 3 mg PO DAILY 03/02/17 Famotidine [Pepcid] 20 mg PO BID 03/02/17 Multivitamin [Daily Multiple 1 each PO DAILY 03/02/17 Vitamin] Ondansetron [Zofran] 8 mg PO Q8H PRN PRN 03/02/17 Levetiracetam 750 mg PO BID 05/03/17 Lisinopril 1 tablet PO DAILY 05/03/17 Acetaminophen [Tylenol Tablet] 650 mg PO Q6H PRN PRN tablet 06/28/17 Diazepam [Valium] 5 mg PO 4X/DAY PRN PRN #30 tab 06/28/17 HydromorphONE [Dilaudid] 2 - 4 mg PO 4X/DAY PRN PRN #50 tab 06/28/17 Bisacodyl 10 mg RECTAL QHS PRN PRN 07/08/17 Calcium (Elemental) [Os-Guido 500] 500 mg PO DAILY 07/08/17 Ceftriaxone [Rocephin] 1 gm IV Q12 07/08/17 Docusate Sodium [Colace] 100 mg PO BID 07/08/17 Enoxaparin Sodium [Lovenox] 40 mg pe SC DAILY@0600 07/08/17 Fentanyl [Duragesic] 50 mcg TRANSDERM. Q3D@1000 07/08/17 Gabapentin [Neurontin] 300 mg PO BIDCM 07/08/17 Lactobacillus Acidophilus 1 each PO DAILY 07/08/17 [Acidophilus Lactobacilli] Magnesium Hydroxide [Milk Of 30 ml PO DAILY PRN PRN 07/08/17 Magnesia] Ondansetron [Zofran] 4 mg IV Q6H PRN PRN 07/08/17 ProMETHAzine [Phenergan] 25 mg PO Q4H PRN PRN 07/08/17 Current Medications Generic Name Dose Route Start Last Admin Trade Name Freq PRN Reason Stop Dose Admin Acetaminophen 1,000 mg 07/08/17 17:25 Tylenol PO Q8H PRN PRN MILD PAIN (1-3/10) Bisacodyl 10 mg 07/08/17 14:07 Dulcolax RECTAL QHS PRN PRN Constipation Calcium Carbonate 500 mg 07/09/17 08:00 07/09/17 08:58 Os-Guido 500 PO 500 mg DAILYCM [facility] Administration Cholecalciferol 5,000 unit 07/09/17 08:00 07/09/17 09:00 Vitamin D PO 5,000 unit DAILY@0800 [facility] Administration Dexamethasone 3 mg 07/09/17 08:00 07/09/17 08:58 Decadron PO 3 mg DAILY@0800 [facility] Administration Diazepam 5 mg 07/08/17 14:07 Valium PO Q6H PRN PRN SPASMS Enoxaparin Sodium 40 mg 07/09/17 06:00 07/09/17 05:49 Lovenox SC 40 mg DAILY@0600 [facility] Administration Famotidine 20 mg 07/08/17 18:00 07/09/17 05:49 Pepcid PO 20 mg BID [facility] Administration Fentanyl 50 mcg 07/09/17 12:00 Duragesic TRANSDERM. Q3D@1000 [facility] Gabapentin 300 mg 07/08/17 17:00 07/09/17 08:58 [facility] Heparin Sodium (Beef Lung) 500 unit 07/08/17 14:40 Heparin 500 Unit/5 Ml (100/Ml) IV UD PRN HEPARIN FLUSH Hydromorphone HCl 4 mg 07/08/17 17:25 07/08/17 19:54 Dilaudid PO 4 mg 4X/DAY PRN PRN Administration SEVERE PAIN (6-10/10) Ceftriaxone Sodium 1 gm in 50 mls @ 100 mls/hr 07/08/17 20:00 07/09/17 08:55 Rocephin IV 100 mls/hr Q12H [facility] Administration Sodium Chloride 1,000 mls @ 15 mls/hr 07/08/17 14:40 07/08/17 20:15 IV 15 mls/hr .Q48H PRN Administration SALINE FLUSH Lactobacillus Acidophilus 1 tablet 07/09/17 06:00 07/09/17 05:49 Acidophilus PO 1 tablet DAILY [facility] Administration Levetiracetam 750 mg 07/08/17 18:00 07/09/17 05:49 Keppra PO 750 mg BID [facility] Administration Lisinopril 5 mg 07/09/17 06:00 07/09/17 05:49 Zestril PO 5 mg DAILY [facility] Administration Magnesium Hydroxide 30 ml 07/08/17 14:07 Milk Of Magnesia PO DAILY PRN PRN Constipation Multivitamins 1 tablet 07/09/17 08:00 07/09/17 08:58 Multivitamin PO 1 tablet DAILY@0800 [facility] Administration Nutritional Formula 1 packet 07/09/17 08:00 07/09/17 08:59 Rodger - Marion Flavor PO 1 packet BIDCM [facility] Administration Nutritional Formula (Lactose Free) 120 ml 07/08/17 17:00 07/09/17 05:54 Ensure Enlive PO 120 ml 4X/DAY [facility] Administration Ondansetron HCl 8 mg 07/08/17 14:07 Zofran PO Q8H PRN PRN NAUSEA Ondansetron HCl 4 mg 07/08/17 14:16 Zofran IV Q6H PRN PRN NAUSEA Polyethylene Glycol 17 gm 07/09/17 06:00 07/09/17 05:50 Miralax PO Not Given DAILY [facility] Promethazine HCl 25 mg 07/08/17 14:07 Phenergan PO Q4H PRN PRN NAUSEA/VOMITING Senna/Docusate Sodium 2 tablet 07/08/17 18:00 07/09/17 05:50 Senokot-S, Riddhi-Colace PO Not Given BID [facility] Sodium Chloride 10 - 20 ml 07/08/17 14:40 07/09/17 08:58 IV 20 ml UD PRN Administration PICC FLUSH Tuberculin PPD 5 tu 07/16/17 10:00 Tubersol, Aplisol, Ppd ID 07/16/17 10:01 X1 ONE Problem List (Last Updated 06/28/17 @ 11:52 by Israel Anne DO) Glioblastoma multiforme (Chronic) Vital Signs Temp Pulse Resp BP Pulse Ox 97.7 F L 54 L 20 H 103/65 95 07/08/17 16:25 07/08/17 16:25 07/08/17 16:25 07/08/17 16:25 07/08/17 16:25 Oxygen Delivery Method Room Air Weight: 82.55 kg Body Mass Index (BMI) 27.6 Assessment/Plan: 1) Pain APAP for mild pain, hydromorphone for severe pain, fentanyl patch, gabapentin , diazepam for spasm. Continue to monitor prn medication use, daily pain scores. 2) Oncology Dexamethasone daily. Continue to monitor BGT, for neurologic symptoms. 3) ID CTX for wound infection. Continue to monitor s/s infection. 4) BP Lisinopril. BP within goal range, no recent labs. Continue to monitor renal function, electrolytes, BP. 5) Seizure Levetiracetam twice daily. Continue to monitor for seizure. 6) GI Famotidine, Lactobacillus, prn ondansetron, prn promethazine. Continue to monitor prn medication use, s/s GI distress. 7) Nutrition Multivitamin, Rodger, Ensure, Ca, D. Continue to monitor clinically. 8) DVT PPx Enoxaparin daily. Continue to monitor s/s bleeding/clot. Psychotropic Medications: None Unnecessary Medications: None Bowel Regimen: 9) Senna/s, PEG, prn bisacodyl, MgOH prn. Continue to monitor prn medication use , for constipation/diarrhea. Date of Note:: 07/09/17 - Provider Comments Provider responsibility: Provider responsible to enter orders to implement recommendations <Regis Kirk Chi - Last Filed: 07/09/17 15:18> Progress Note - Pharmacy Subjective: [] Objective: Allergies adhesive tape Adverse Reaction (Verified 06/24/17 09:09) VERY THIN STEROID SKIN WILL REMOVE SKIN IF ON TOO LONG Home Medications Medication Instructions Recorded Cholecalciferol (Vitamin D3) 5,000 unit PO DAILY 03/02/17 [Vitamin D3] Dexamethasone 3 mg PO DAILY 03/02/17 Famotidine [Pepcid] 20 mg PO BID 03/02/17 Multivitamin [Daily Multiple 1 each PO DAILY 03/02/17 Vitamin] Ondansetron [Zofran] 8 mg PO Q8H PRN PRN 03/02/17 Levetiracetam 750 mg PO BID 05/03/17 Lisinopril 1 tablet PO DAILY 05/03/17 Acetaminophen [Tylenol Tablet] 650 mg PO Q6H PRN PRN tablet 06/28/17 Diazepam [Valium] 5 mg PO 4X/DAY PRN PRN #30 tab 06/28/17 HydromorphONE [Dilaudid] 2 - 4 mg PO 4X/DAY PRN PRN #50 tab 06/28/17 Bisacodyl 10 mg RECTAL QHS PRN PRN 07/08/17 Calcium (Elemental) [Os-Guido 500] 500 mg PO DAILY 07/08/17 Ceftriaxone [Rocephin] 1 gm IV Q12 07/08/17 Docusate Sodium [Colace] 100 mg PO BID 07/08/17 Enoxaparin Sodium [Lovenox] 40 mg pe SC DAILY@0600 07/08/17 Fentanyl [Duragesic] 50 mcg TRANSDERM. Q3D@1000 07/08/17 Gabapentin [Neurontin] 300 mg PO BIDCM 07/08/17 Lactobacillus Acidophilus 1 each PO DAILY 07/08/17 [Acidophilus Lactobacilli] Magnesium Hydroxide [Milk Of 30 ml PO DAILY PRN PRN 07/08/17 Magnesia] Ondansetron [Zofran] 4 mg IV Q6H PRN PRN 07/08/17 ProMETHAzine [Phenergan] 25 mg PO Q4H PRN PRN 07/08/17 Current Medications Generic Name Dose Route Start Last Admin Trade Name Freq PRN Reason Stop Dose Admin Acetaminophen 1,000 mg 07/08/17 17:25 Tylenol PO Q8H PRN PRN MILD PAIN (1-3/10) Bisacodyl 10 mg 07/08/17 14:07 Dulcolax RECTAL QHS PRN PRN Constipation Calcium Carbonate 500 mg 07/09/17 08:00 07/09/17 08:58 Os-Guido 500 PO 500 mg DAILYCM [facility] Administration Cholecalciferol 5,000 unit 07/09/17 08:00 07/09/17 09:00 Vitamin D PO 5,000 unit DAILY@0800 [facility] Administration Dexamethasone 3 mg 07/09/17 08:00 07/09/17 08:58 Decadron PO 3 mg DAILY@0800 [facility] Administration Diazepam 5 mg 07/08/17 14:07 Valium PO Q6H PRN PRN SPASMS Enoxaparin Sodium 40 mg 07/09/17 06:00 07/09/17 05:49 Lovenox SC 40 mg DAILY@0600 [facility] Administration Famotidine 20 mg 07/08/17 18:00 07/09/17 05:49 Pepcid PO 20 mg BID [facility] Administration Fentanyl 50 mcg 07/09/17 12:00 07/09/17 12:33 Duragesic TRANSDERM. 50 mcg Q3D@1000 [facility] Administration Gabapentin 300 mg 07/08/17 17:00 07/09/17 08:58 Neurontin PO 300 mg BIDCM [facility] Administration Heparin Sodium (Beef Lung) 500 unit 07/08/17 14:40 Heparin 500 Unit/5 Ml (100/Ml) IV UD PRN HEPARIN FLUSH Hydromorphone HCl 4 mg 07/08/17 17:25 07/09/17 13:15 Dilaudid PO 4 mg 4X/DAY PRN PRN Administration SEVERE PAIN (6-10/10) Ceftriaxone Sodium 1 gm in 50 mls @ 100 mls/hr 07/08/17 20:00 07/09/17 08:55 Rocephin IV 100 mls/hr Q12H [facility] Administration Sodium Chloride 1,000 mls @ 15 mls/hr 07/08/17 14:40 07/08/17 20:15 IV 15 mls/hr .Q48H PRN Administration SALINE FLUSH Lactobacillus Acidophilus 1 tablet 07/09/17 06:00 07/09/17 05:49 Acidophilus PO 1 tablet DAILY [facility] Administration Levetiracetam 750 mg 07/08/17 18:00 07/09/17 05:49 Keppra PO 750 mg BID [facility] Administration Lisinopril 5 mg 07/09/17 06:00 07/09/17 05:49 Zestril PO 5 mg DAILY [facility] Administration Magnesium Hydroxide 30 ml 07/08/17 14:07 Milk Of Magnesia PO DAILY PRN PRN Constipation Multivitamins 1 tablet 07/09/17 08:00 07/09/17 08:58 Multivitamin PO 1 tablet DAILY@0800 [facility] Administration Nutritional Formula 1 packet 07/09/17 08:00 07/09/17 08:59 Rodger - Marion Flavor PO 1 packet BIDCM [facility] Administration Nutritional Formula (Lactose Free) 120 ml 07/08/17 17:00 07/09/17 12:33 Ensure Enlive PO 120 ml 4X/DAY [facility] Administration Ondansetron HCl 8 mg 07/08/17 14:07 Zofran PO Q8H PRN PRN NAUSEA Ondansetron HCl 4 mg 07/08/17 14:16 Zofran IV Q6H PRN PRN NAUSEA Polyethylene Glycol 17 gm 07/09/17 06:00 07/09/17 05:50 Miralax PO Not Given DAILY [facility] Promethazine HCl 25 mg 07/08/17 14:07 Phenergan PO Q4H PRN PRN NAUSEA/VOMITING Senna/Docusate Sodium 2 tablet 07/08/17 18:00 07/09/17 05:50 Senokot-S, Riddhi-Colace PO Not Given BID [facility] Sodium Chloride 10 - 20 ml 07/08/17 14:40 07/09/17 08:58 IV 20 ml UD PRN Administration PICC FLUSH Tuberculin PPD 5 tu 07/16/17 10:00 Tubersol, Aplisol, Ppd ID 07/16/17 10:01 X1 ONE Problem List (Last Updated 06/28/17 @ 11:52 by Israel Anne DO) Glioblastoma multiforme (Chronic) Vital Signs Temp Pulse Resp BP Pulse Ox 97.7 F L 54 L 20 H 103/65 95 07/08/17 16:25 07/08/17 16:25 07/08/17 16:25 07/08/17 16:25 07/08/17 16:25 Oxygen Delivery Method Room Air Weight: 82.55 kg Body Mass Index (BMI) 27.6 Sodium 140 mmol/L (136-145) 07/09/17 13:10 Potassium 4.1 mmol/L (3.5-5.1) 07/09/17 13:10 Chloride 99 mmol/L (98-107) 07/09/17 13:10 Carbon Dioxide 30.0 mmol/L (21.0-32.0) 07/09/17 13:10 Anion Gap 11 (5-15) 07/09/17 13:10 BUN 22 mg/dL (7-18) H 07/09/17 13:10 Creatinine 0.77 mg/dL (0.55-1.02) 07/09/17 13:10 Est GFR (MDRD) Af Amer 99 mL/min (>60) 07/09/17 13:10 Est GFR (MDRD) Non-Af 82 mL/min (>60) 07/09/17 13:10 BUN/Creatinine Ratio 28.6 RATIO (10-20) H 07/09/17 13:10 Glucose 150 mg/dL (70-110) H 07/09/17 13:10 Assessment/Plan: Psychotropic Medications: Unnecessary Medications: Bowel Regimen: - Provider Comments Provider responsibility: Provider responsible to enter orders to implement recommendations Provider Comments to Recommendations by Pharmacy: Agree
--- NOTE | 2017-07-09 12:38 | NURSING ---
Addendum entered by Micaela Torres 07/09/17 12:39: OLD PATCH WASTED BY FLUSHING DOWN TOILET, WITNESSED BY AMY DYER. Original Note: OLD PATCH REMOVED FROM LT SHOULDER, NEW PATCH APPLED TO RT SHOULDER, FENTANYL 50MCG.
[2017-07-09] MEDS: HYDROmorphone 2 MG TABLET 4 MG PO (13:15)
[2017-07-09 13:52] LABS: Absolute Lymphocyte Count 0.45 X10^3/ul (0.83-4.51); Absolute Neutrophil Count 6.4 X10^3/uL (2.0-7.7); Basophil# 0.02 X10^3/uL; Basophil% 0.3 % (0-1); Eosinophil# 0.01 X10^3/uL; Eosinophils% 0.1 % (0-5); Hemoglobin 10.7 g/dl (12.0-15.0); Lymphocyte # 0.45 X10^3/ul (4.0); Lymphocyte % 6.1 % (19-41); Mean Corp Hgb Conc 30.6 g/gl (32-36); Mean Corpuscular Hgb 32.3 pg (27.0-32.0); Mean Corpuscular Volume 105.7 fL (81-99); Mean Platelet Vol. 9.5 fl (6.2-12.0); Monocyte# 0.53 X10^3/uL; Monocyte% 7.2 % (0-10); Neutrophil # 6.35 X10^3/uL (2.7-7.7); Neutrophil % 85.8 % (47-70); POSITIVE COUNT NO; POSITIVE DIFFERENTIAL YES; POSITIVE MORPHOLOGY NO; Platelet Count 217 K/mm3 (150-450); RBC Distribution Width CV 14.4 % (11.6-14.6); RBC Distribution Width SD 55.7 fl (35.1-43.9); Red Blood Count 3.31 M/mm3 (4.2-5.4); White Blood Count 7.4 K/mm3 (4.4-11.0)
[2017-07-09 13:53] LABS: Differential Indicated SCAN CRITERIA MET
[2017-07-09 13:55] LABS: Anion Gap 11 (5-15); BUN 22 mg/dL (7-18); BUN/Creat Ratio 28.6 RATIO (10-20); Calcium,Total 9.4 mg/dL (8.5-10.1); Chloride 99 mmol/L (98-107); Creatinine, Serum 0.77 mg/dL (0.55-1.02); EST Glomerular Filtration Rate 82 mL/min (>60); Est Glom Filt Rate - Afr Amer 99 mL/min (>60); Estimated Creatinine Clearance 79.36 ml/min; Glucose 150 mg/dL (70-110); Potassium 4.1 mmol/L (3.5-5.1); Prealbumin 28.2 mg/dL (20.0-40.0); Sodium Level 140 mmol/L (136-145)
[2017-07-09 14:09] LABS: Erythrocyte Sedimentation Rate 45 mm/hr (0-30)
[2017-07-09] MEDS: diazePAM 5 MG Tablet PO (15:31)
[2017-07-09 15:43] VITALS: BP 110/68; PULSE 55; RESP 16; TEMP 36.4; O2SAT 95
[2017-07-09] MEDS: Tuberculin,Purif.prot.deriv. 50 TU/ML Vial 5 ML ID (16:08)
[2017-07-09] MEDS: Senna/Docusate Sodium 1 Tablet 2 TABLET PO (17:01)
[2017-07-10] MEDS: Ceftriaxone 1 GM/50 ML BAG IV ×2 (08:00→20:46)
[2017-07-10] MEDS: Senna/Docusate Sodium 1 Tablet 2 TABLET PO ×2 (08:30→16:37)
[2017-07-10] MEDS: Lisinopril 5 MG Tablet PO (08:30)
[2017-07-10] MEDS: Gabapentin 300 MG Capsule PO ×2 (08:30→16:38)
[2017-07-10] MEDS: levETIRAcetam 750 MG Tablet PO ×2 (08:30→16:38)
[2017-07-10] MEDS: Famotidine 20 MG Tablet PO ×2 (08:30→16:38)
[2017-07-10] MEDS: 0.9% NaCl PICC Flush IV (08:30)
[2017-07-10] MEDS: Polyethylene Glycol 3350 17 GM PACKET PO (11:36)
[2017-07-10] MEDS: Enoxaparin 40 MG/0.4 ML Syringe SC (11:36)
[2017-07-10] MEDS: Calcium (Elemental) 500 MG Tablet PO (11:37)
[2017-07-10] MEDS: Multivitamins,Therapeutic Tablet 1 TABLET PO (11:39)
[2017-07-10] MEDS: HYDROmorphone 2 MG TABLET 4 MG PO (13:34)
--- NOTE | 2017-07-10 13:42 | NURSING ---
bilat lower leg dressings completed as per order, medicated for lower leg pain as per order
[2017-07-10 15:55] VITALS: BP 153/82; PULSE 71; RESP 18; TEMP 36.4; O2SAT 95
[2017-07-11] MEDS: HYDROmorphone 2 MG TABLET 4 MG PO ×3 (00:10→15:25)
[2017-07-11] MEDS: Enoxaparin 40 MG/0.4 ML Syringe SC (04:12)
[2017-07-11] MEDS: levETIRAcetam 750 MG Tablet PO ×2 (04:12→16:39)
[2017-07-11] MEDS: Lisinopril 5 MG Tablet PO (04:12)
[2017-07-11] MEDS: Famotidine 20 MG Tablet PO ×2 (04:12→16:39)
[2017-07-11] MEDS: Calcium (Elemental) 500 MG Tablet PO (08:51)
[2017-07-11] MEDS: Gabapentin 300 MG Capsule PO ×2 (08:51→16:39)
[2017-07-11] MEDS: Multivitamins,Therapeutic Tablet 1 TABLET PO (08:51)
[2017-07-11] MEDS: Ceftriaxone 1 GM/50 ML BAG IV ×2 (08:53→21:12)
--- NOTE | 2017-07-11 09:49 | NURSING ---
BLLE dressings changed per order. Pt. tolerated well. Medicated for pain. Will continue to monitor.
--- NOTE | 2017-07-11 11:13 | NURSING ---
Pt left with sister and brother in law at 1030, paperwork signed by sister.
--- NOTE | 2017-07-11 13:30 | NURSING ---
PT RETURNED FROM [facility], BROUGHT BY SISTER MARY AND BRO IN LAW.
--- NOTE | 2017-07-11 15:17 | NURSING ---
FENTANYL PATCH INTACT TO RT SHOULDER.
[2017-07-11 16:00] VITALS: BP 109/62; PULSE 59; RESP 18; TEMP 36.1; O2SAT 95
--- NOTE | 2017-07-11 16:04 | NURSING ---
Pt returned with family at 1400.
[2017-07-11 22:00] VITALS: RESP 15
[2017-07-12] MEDS: Famotidine 20 MG Tablet PO ×2 (05:59→16:33)
[2017-07-12] MEDS: Lisinopril 5 MG Tablet PO (05:59)
[2017-07-12] MEDS: Enoxaparin 40 MG/0.4 ML Syringe SC (06:00)
[2017-07-12] MEDS: levETIRAcetam 750 MG Tablet PO ×2 (07:36→16:33)
[2017-07-12] MEDS: 0.9% NaCl PICC Flush IV ×2 (08:01→20:37)
[2017-07-12] MEDS: Gabapentin 300 MG Capsule PO ×2 (08:03→16:33)
[2017-07-12] MEDS: Multivitamins,Therapeutic Tablet 1 TABLET PO (08:03)
[2017-07-12] MEDS: Calcium (Elemental) 500 MG Tablet PO (08:03)
[2017-07-12] MEDS: Ceftriaxone 1 GM/50 ML BAG IV ×2 (08:18→20:37)
[2017-07-12] MEDS: HYDROmorphone 2 MG TABLET 4 MG PO ×2 (10:35→20:43)
--- NOTE | 2017-07-12 10:40 | NURSING ---
OLD PATCH REMOVED FROM RT SHOULDER, NEW FANTANYL PATCH 50MCG APPLIED TO BACK, WASTED BY FLUSHING DOWN TOILET, WITNESSED BY AMY BAPTISTE.
--- NOTE | 2017-07-12 12:59 | NURSING ---
wound photo: right lateral leg (proximal)
--- NOTE | 2017-07-12 13:01 | NURSING ---
wound photo: right distal lateral lower leg
--- NOTE | 2017-07-12 13:01 | NURSING ---
wound photo: right medial lower leg
--- NOTE | 2017-07-12 13:02 | NURSING ---
wound photo: left anterior/lateral lower leg
--- NOTE | 2017-07-12 13:03 | NURSING ---
wound photo: left lateral lower leg
--- NOTE | 2017-07-12 13:03 | NURSING ---
wound photo: left posterior lower leg
[2017-07-12] MEDS: diazePAM 5 MG Tablet PO (14:58)
[2017-07-12] MEDS: Acetaminophen 500 MG Tablet 1000 MG PO (15:01)
--- NOTE | 2017-07-12 15:12 | CASEMGMT ---
Insurance Clinical information faxed. Pending continued stay approval at this time. Auth#[id number] Kendra GIVENS, SERVICE MEMBER
[2017-07-12 16:00] VITALS: BP 127/70; PULSE 68; RESP 18; TEMP 36.7; O2SAT 97
[2017-07-12] MEDS: Senna/Docusate Sodium 1 Tablet 2 TABLET PO (16:34)
[2017-07-13] MEDS: Lisinopril 5 MG Tablet PO (05:31)
[2017-07-13] MEDS: Famotidine 20 MG Tablet PO ×2 (05:31→17:52)
[2017-07-13] MEDS: Enoxaparin 40 MG/0.4 ML Syringe SC (05:31)
[2017-07-13] MEDS: levETIRAcetam 750 MG Tablet PO ×2 (05:31→17:53)
[2017-07-13] MEDS: HYDROmorphone 2 MG TABLET 4 MG PO ×3 (05:34→21:15)
[2017-07-13] MEDS: Ceftriaxone 1 GM/50 ML BAG IV ×2 (07:33→19:57)
[2017-07-13] MEDS: Multivitamins,Therapeutic Tablet 1 TABLET PO (07:35)
[2017-07-13] MEDS: 0.9% NaCl PICC Flush IV ×2 (07:35→19:58)
[2017-07-13] MEDS: Calcium (Elemental) 500 MG Tablet PO (07:35)
[2017-07-13] MEDS: Gabapentin 300 MG Capsule PO ×2 (07:35→17:52)
[2017-07-13] MEDS: Acetaminophen 500 MG Tablet 1000 MG PO (08:48)
[2017-07-13 16:00] VITALS: BP 110/75; PULSE 58; RESP 20; TEMP 36.7; O2SAT 95
[2017-07-14] MEDS: levETIRAcetam 750 MG Tablet PO ×2 (05:53→16:23)
[2017-07-14] MEDS: Enoxaparin 40 MG/0.4 ML Syringe SC (05:53)
[2017-07-14] MEDS: Famotidine 20 MG Tablet PO ×2 (05:53→16:23)
[2017-07-14] MEDS: Lisinopril 5 MG Tablet PO (05:53)
[2017-07-14] MEDS: HYDROmorphone 2 MG TABLET 4 MG PO ×2 (08:21→19:52)
[2017-07-14] MEDS: Multivitamins,Therapeutic Tablet 1 TABLET PO (08:23)
[2017-07-14] MEDS: Gabapentin 300 MG Capsule PO ×2 (08:23→16:22)
[2017-07-14] MEDS: Calcium (Elemental) 500 MG Tablet PO (08:23)
[2017-07-14] MEDS: Ceftriaxone 1 GM/50 ML BAG IV ×2 (08:24→19:53)
[2017-07-14 10:00] VITALS: PULSE 58; RESP 16; O2SAT 98
--- NOTE | 2017-07-14 10:29 | NURSING ---
Dr. Moya here to see pt at this time
[2017-07-14] MEDS: Acetaminophen 500 MG Tablet 1000 MG PO (11:00)
--- NOTE | 2017-07-14 15:45 | CASEMGMT ---
Insurance Continued stay approved with next update due on 07/15/17. LCD is currently 07/16/17. Auth#[id number] eKndra GIVENS, NUCLEAR STATION OPERATOR
[2017-07-14 15:55] VITALS: BP 109/62; PULSE 64; RESP 18; TEMP 36; O2SAT 95
[2017-07-14] MEDS: 0.9% NaCl PICC Flush IV (19:53)
[2017-07-14] MEDS: Ondansetron 4 MG/2 ML Vial IV (19:53)
[2017-07-15] MEDS: Enoxaparin 40 MG/0.4 ML Syringe SC (04:50)
[2017-07-15] MEDS: Famotidine 20 MG Tablet PO ×2 (04:50→17:06)
[2017-07-15] MEDS: levETIRAcetam 750 MG Tablet PO ×2 (04:50→17:06)
[2017-07-15] MEDS: Lisinopril 5 MG Tablet PO (04:50)
[2017-07-15] MEDS: HYDROmorphone 2 MG TABLET 4 MG PO (04:53)
[2017-07-15] MEDS: Gabapentin 300 MG Capsule PO ×2 (07:47→17:06)
[2017-07-15] MEDS: Multivitamins,Therapeutic Tablet 1 TABLET PO (07:47)
[2017-07-15] MEDS: Calcium (Elemental) 500 MG Tablet PO (07:48)
[2017-07-15] MEDS: 0.9% NaCl PICC Flush IV ×2 (07:48→20:45)
[2017-07-15] MEDS: Ceftriaxone 1 GM/50 ML BAG IV ×2 (07:48→20:45)
--- NOTE | 2017-07-15 09:31 | CASEMGMT ---
Insurance Clinical information faxed. Pending continued stay approval at this time. Auth#[id number] Kendra GIVENS, DEPUTY CHIEF MAGISTRATE
--- NOTE | 2017-07-15 10:19 | NURSING ---
DURAGESIC PATCH REMOVED FROM MID BACK AND NEW PATCH APPLIED TO LEFT SHOULDER.
[2017-07-15] MEDS: Acetaminophen 500 MG Tablet 1000 MG PO ×2 (11:52→18:52)
--- NOTE | 2017-07-15 12:49 | PN.SURG_ITS ---
Subjective: Patient is known to me. She had recent surgery on 06/24/17 where she underwent surgical preparation left posterior leg with incision and drainage and excisional debridement involving underlying tendon nonhealing ulcer (12 cm2) and surgical preparation left inferolateral leg with incision and drainage and excisional debridement involving underlying muscle nonhealing ulcer (18 cm2) and surgical preparation left superolateral leg with incision and drainage and excisional debridement involving underlying muscle nonhealing ulcer (24 cm2) and surgical preparation left anterior lower leg with incision and drainage and excisional debridement involving underlying tendon and muscle nonhealing ulcer ( 30 cm2) and surgical preparation right lateral leg with incision and drainage and excisional debridement involving underlying fascia nonhealing ulcer (15.75 cm2) and surgical preparation right anterosuperior leg with incision and drainage and excisional debridement involving underlying fascia nonhealing ulcer (6.25 cm2) and surgical preparation right lower leg/anterior ankle with incision and drainage and excisional debridement involving underlying periosteum nonhealing ulcer (16 cm2) and surgical preparation right medial ankle with incision and drainage and excisional debridement involving underlying muscle nonhealing ulcer (8 cm2). 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 She was discharged on IV Ceftriaxone. She is currently getting daily dressing changes with Silver dressings. She has a brain tumor and was getting chemotherapy that had to be put on hold because of these multiple ulcers on her lower extremities. The plan is to stabilize the wounds with aggressive wound care and IV antibiotics in preparation for further operative intervention with skin grafting in order to continue her chemotherapy. - Physical Exam General: Alert, Oriented x3 HEENT: PERRLA, EOMI Neck: Supple Lungs: Clear to auscultation Cardiovascular: Regular rate, Regular Rhythm Abdomen: Soft, Non-Distended Extremities: Edema - mild edema in lower extremities. Skin: Ulcer/ Wound - multiple ulcers on bilateral lower extremities that are currently stable. She is tolerating the dressing changes with Silver dressings daily. Neurological: Cranial nerves II-XII grossly intact Psych/Mental Status: Normal Affect, Appropriate Vital Signs Temp Pulse Resp BP Pulse Ox 96.8 F L 64 18 109/62 95 07/14/17 15:55 07/14/17 15:55 07/14/17 15:55 07/14/17 15:55 07/14/17 15:55 Oxygen Delivery Method Room Air Weight: 182 lb 1.629 oz Body Mass Index (BMI) 27.6 Intake and Output for Last 24 Hours 07/13/17 07/14/17 07/15/17 23:59 23:59 23:59 Intake Total 940 / 940 1080 / 1080 480 / 480 Balance 940 / 940 1080 / 1080 480 / 480 Assessment/Plan 1. Nonhealing ulcer left posterior leg. 2. Nonhealing ulcer left lateral inferior leg. 3. Nonhealing ulcer left lateral superior leg. 4. Nonhealing ulcer left lower anterior leg. 5. Nonhealing ulcer right lateral leg. 6. Nonhealing ulcer right superior anterior leg. 7. Nonhealing ulcer right lower leg/anterior ankle. 8. Nonhealing ulcer right medial ankle. 9. Brain tumor - receiving chemotherapy. 10. s/p surgical preparation left posterior leg with incision and drainage and excisional debridement nonhealing ulcer and surgical preparation left lateral inferior leg with incision and drainage and excisional debridement nonhealing ulcer and surgical preparation left lateral superior leg with incision and drainage and excisional debridement nonhealing ulcer and surgical preparation left lower anterior leg with incision and drainage and excisional debridement nonhealing ulcer and surgical preparation right lateral leg with incision and drainage and excisional debridement nonhealing ulcer and surgical preparation right superior anterior leg with incision and drainage and excisional debridement nonhealing ulcer and surgical preparation right lower leg/anterior ankle with incision and drainage and excisional debridement nonhealing ulcer and surgical preparation right medial ankle with incision and drainage and excisional debridement nonhealing ulcer. Continue IV Ceftriaxone until 07/22/17 (tentative). Will evaluate the ulcers during a dressing change prior to that date in order to decide if we can stop the IV antibiotics or if we need to continue them for an additional couple of weeks. Continue nutritional supplementation with protein to help the healing process. She is tolerating the daily Silver dressing changes. She is on po Dilaudid, Valium prn, Neurontin, Duragesic Patch. Plan is to decide on timing of further operative intervention with skin grafting in preparation for further chemotherapy. Due to her immunocompromised state, she may develop skin graft compromise in which case she would be evaluated for HBO treatments to help salvage any compromise to the skin grafts.
--- NOTE | 2017-07-15 13:28 | NURSING ---
Dr. Moya called to clarify IV Rocephin stop date.
[2017-07-15 16:00] VITALS: BP 126/63; PULSE 58; RESP 18; TEMP 35.6; O2SAT 96
[2017-07-16] MEDS: Famotidine 20 MG Tablet PO ×2 (04:15→17:07)
[2017-07-16] MEDS: levETIRAcetam 750 MG Tablet PO ×2 (04:15→17:07)
[2017-07-16] MEDS: Lisinopril 5 MG Tablet PO (04:16)
[2017-07-16] MEDS: Enoxaparin 40 MG/0.4 ML Syringe SC (04:16)
[2017-07-16] MEDS: HYDROmorphone 2 MG TABLET 4 MG PO ×3 (04:18→21:16)
[2017-07-16 07:07] LABS: Absolute Lymphocyte Count 0.58 X10^3/ul (0.83-4.51); Absolute Neutrophil Count 2.5 X10^3/uL (2.0-7.7); Basophil# 0.03 X10^3/uL; Basophil% 0.8 % (0-1); Eosinophil# 0.03 X10^3/uL; Eosinophils% 0.8 % (0-5); Hematocrit 35.1 % (37-47); Lymphocyte # 0.58 X10^3/ul (4.0); Lymphocyte % 15.6 % (19-41); Mean Corp Hgb Conc 31.3 g/gl (32-36); Mean Corpuscular Hgb 32.6 pg (27.0-32.0); Mean Corpuscular Volume 104.2 fL (81-99); Mean Platelet Vol. 9.9 fl (6.2-12.0); Monocyte% 13.4 % (0-10); Neutrophil % 67.2 % (47-70); Platelet Count 174 K/mm3 (150-450); RBC Distribution Width CV 13.9 % (11.6-14.6); RBC Distribution Width SD 52.5 fl (35.1-43.9); Red Blood Count 3.37 M/mm3 (4.2-5.4); White Blood Count 3.7 K/mm3 (4.4-11.0)
[2017-07-16 07:08] LABS: Differential Indicated SCAN CRITERIA MET; POSITIVE COUNT YES; POSITIVE DIFFERENTIAL YES; POSITIVE MORPHOLOGY YES
[2017-07-16 07:33] LABS: Anion Gap 8 (5-15); BUN 24 mg/dL (7-18); BUN/Creat Ratio 34.7 RATIO (10-20); CRP 3.09 mg/L (0.0-3.0); Calcium,Total 9.5 mg/dL (8.5-10.1); Chloride 99 mmol/L (98-107); Creatinine, Serum 0.69 mg/dL (0.55-1.02); EST Glomerular Filtration Rate 92 mL/min (>60); Est Glom Filt Rate - Afr Amer 112 mL/min (>60); Estimated Creatinine Clearance 88.56 ml/min; Glucose 92 mg/dL (70-110); Potassium 4.2 mmol/L (3.5-5.1); Prealbumin 29.4 mg/dL (20.0-40.0); Sodium Level 137 mmol/L (136-145)
[2017-07-16] MEDS: Acetaminophen 500 MG Tablet 1000 MG PO (07:39)
[2017-07-16 07:55] LABS: Erythrocyte Sedimentation Rate 40 mm/hr (0-30)
[2017-07-16] MEDS: Calcium (Elemental) 500 MG Tablet PO (09:33)
[2017-07-16] MEDS: Gabapentin 300 MG Capsule PO ×2 (09:35→17:07)
[2017-07-16] MEDS: Multivitamins,Therapeutic Tablet 1 TABLET PO (09:35)
[2017-07-16] MEDS: Ceftriaxone 1 GM/50 ML BAG IV ×2 (09:38→20:28)
[2017-07-16] MEDS: Tuberculin,Purif.prot.deriv. 50 TU/ML Vial 5 ML ID (11:45)
[2017-07-16 16:00] VITALS: BP 105/65; PULSE 56; RESP 14; TEMP 36.6; O2SAT 93
[2017-07-16] MEDS: Senna/Docusate Sodium 1 Tablet 2 TABLET PO (17:07)
[2017-07-16] MEDS: 0.9% NaCl PICC Flush IV (20:28)
[2017-07-17] MEDS: HYDROmorphone 2 MG TABLET 4 MG PO ×3 (00:10→16:10)
[2017-07-17] MEDS: Enoxaparin 40 MG/0.4 ML Syringe SC (04:18)
[2017-07-17] MEDS: Famotidine 20 MG Tablet PO ×2 (04:18→16:28)
[2017-07-17] MEDS: Lisinopril 5 MG Tablet PO (04:18)
[2017-07-17] MEDS: levETIRAcetam 750 MG Tablet PO ×2 (04:18→16:28)
--- NOTE | 2017-07-17 04:26 | NURSING ---
Duragesic patch intact to left shoulder.
[2017-07-17] MEDS: Gabapentin 300 MG Capsule PO ×2 (08:31→16:28)
[2017-07-17] MEDS: Calcium (Elemental) 500 MG Tablet PO (08:31)
[2017-07-17] MEDS: Multivitamins,Therapeutic Tablet 1 TABLET PO (08:31)
[2017-07-17] MEDS: 0.9% NaCl PICC Flush IV ×2 (08:31→20:18)
[2017-07-17] MEDS: Ceftriaxone 1 GM/50 ML BAG IV ×2 (08:31→20:15)
--- NOTE | 2017-07-17 11:52 | NURSING ---
pain patch intact on left shoulder area pt denies needs at this time
[2017-07-17 15:26] VITALS: BP 97/61; PULSE 68; RESP 16; TEMP 36.7; O2SAT 95
[2017-07-17] MEDS: Senna/Docusate Sodium 1 Tablet 2 TABLET PO (16:28)
[2017-07-18] MEDS: HYDROmorphone 2 MG TABLET 4 MG PO (04:07)
[2017-07-18] MEDS: Enoxaparin 40 MG/0.4 ML Syringe SC (04:08)
[2017-07-18] MEDS: Senna/Docusate Sodium 1 Tablet 2 TABLET PO ×2 (04:09→16:45)
[2017-07-18] MEDS: Lisinopril 5 MG Tablet PO (04:09)
[2017-07-18] MEDS: Famotidine 20 MG Tablet PO ×2 (04:09→16:45)
[2017-07-18] MEDS: levETIRAcetam 750 MG Tablet PO ×2 (04:10→16:45)
[2017-07-18] MEDS: 0.9% NaCl PICC Flush IV (07:50)
[2017-07-18] MEDS: Ceftriaxone 1 GM/50 ML BAG IV ×2 (07:50→20:46)
[2017-07-18] MEDS: Calcium (Elemental) 500 MG Tablet PO (07:53)
[2017-07-18] MEDS: Gabapentin 300 MG Capsule PO ×2 (07:53→16:45)
[2017-07-18] MEDS: Multivitamins,Therapeutic Tablet 1 TABLET PO (07:53)
--- NOTE | 2017-07-18 10:41 | NURSING ---
OLD FENTANYL PATCH REMOVED FROM BACK, NEW PATCH APPLIED TO RT SHOULDER, WASTED BY FLUSHING DOWN TOILET, WITNESSED BY AYM DYER.
[2017-07-18 15:50] VITALS: BP 98/58; PULSE 63; RESP 18; TEMP 36.4; O2SAT 97
[2017-07-18 16:49] VITALS: BP 110/64
[2017-07-19] MEDS: HYDROmorphone 2 MG TABLET 4 MG PO ×2 (03:09→07:59)
[2017-07-19] MEDS: Famotidine 20 MG Tablet PO ×2 (04:48→16:49)
[2017-07-19] MEDS: Senna/Docusate Sodium 1 Tablet 2 TABLET PO (04:48)
[2017-07-19] MEDS: Lisinopril 5 MG Tablet PO (04:48)
[2017-07-19] MEDS: Polyethylene Glycol 3350 17 GM PACKET PO ×2 (04:48→04:49)
[2017-07-19] MEDS: Enoxaparin 40 MG/0.4 ML Syringe SC (04:48)
[2017-07-19] MEDS: levETIRAcetam 750 MG Tablet PO ×2 (04:48→16:49)
[2017-07-19] MEDS: Ceftriaxone 1 GM/50 ML BAG IV ×2 (07:57→19:51)
[2017-07-19] MEDS: Gabapentin 300 MG Capsule PO ×2 (08:01→16:49)
[2017-07-19] MEDS: Multivitamins,Therapeutic Tablet 1 TABLET PO (08:01)
[2017-07-19] MEDS: Calcium (Elemental) 500 MG Tablet PO (08:02)
[2017-07-19] MEDS: 0.9% NaCl PICC Flush IV ×2 (08:03→19:55)
--- NOTE | 2017-07-19 09:19 | NURSING ---
DURAGESIC PATCH IN PLACE TO RIGHT UPPER SHOULDER.
[2017-07-19 15:02] LABS: Pathologist Review Reviewed
[2017-07-19 15:35] VITALS: BP 104/58; PULSE 66; RESP 18; TEMP 36.5; O2SAT 98
--- NOTE | 2017-07-19 16:09 | CASEMGMT ---
Insurance Continued stay approved with next update due on 07/21/17 Auth#[id number] Kendra GIVENS, REPAIR DEPARTMENT SUPERVISOR
[2017-07-20] MEDS: Enoxaparin 40 MG/0.4 ML Syringe SC (04:40)
[2017-07-20] MEDS: levETIRAcetam 750 MG Tablet PO ×2 (04:40→16:37)
[2017-07-20] MEDS: Famotidine 20 MG Tablet PO ×2 (04:41→16:38)
[2017-07-20] MEDS: Lisinopril 5 MG Tablet PO (04:41)
[2017-07-20] MEDS: HYDROmorphone 2 MG TABLET 4 MG PO ×2 (07:33→21:50)
[2017-07-20] MEDS: Ceftriaxone 1 GM/50 ML BAG IV ×2 (07:34→20:36)
[2017-07-20] MEDS: Gabapentin 300 MG Capsule PO ×2 (07:35→16:38)
[2017-07-20] MEDS: Multivitamins,Therapeutic Tablet 1 TABLET PO (07:35)
[2017-07-20] MEDS: 0.9% NaCl PICC Flush IV ×2 (07:35→20:39)
[2017-07-20] MEDS: Calcium (Elemental) 500 MG Tablet PO (07:36)
--- NOTE | 2017-07-20 10:54 | CASEMGMT ---
Plan of care meeting held. Resident present. No support person present at this time. There has been no discharge date set at this time. Resident to continue with further care and treatment on the Transitional Care Unit at this time. Resident plans to discharge home alone when able. Resident does plan to follow up with the wound center for wound management at time of discharge. Support given. Will continue to follow. Kendra GIVENS, ROTARY SHEAR OPERATOR
--- NOTE | 2017-07-20 11:54 | NURSING ---
DURAGESIC PATCH IN PLACE TO RIGHT SHOULDER.
--- NOTE | 2017-07-20 12:10 | NURSING ---
wound photo: left anterior lower leg
--- NOTE | 2017-07-20 12:11 | NURSING ---
wound photo: left lateral lower leg
--- NOTE | 2017-07-20 12:11 | NURSING ---
wound photo: left posterior lower leg
--- NOTE | 2017-07-20 12:12 | NURSING ---
wound photo: right medial lower leg
--- NOTE | 2017-07-20 12:12 | NURSING ---
wound photo: right lateral lower leg (distal)
--- NOTE | 2017-07-20 12:13 | NURSING ---
wound photo: right lateral leg (proximal)
[2017-07-20 16:00] VITALS: BP 135/80; PULSE 60; RESP 18; TEMP 36.3; O2SAT 97
[2017-07-21] MEDS: HYDROmorphone 2 MG TABLET 4 MG PO (04:55)
[2017-07-21] MEDS: Famotidine 20 MG Tablet PO ×2 (04:56→17:07)
[2017-07-21] MEDS: levETIRAcetam 750 MG Tablet PO ×2 (04:56→17:07)
[2017-07-21] MEDS: Lisinopril 5 MG Tablet PO (04:56)
[2017-07-21] MEDS: Enoxaparin 40 MG/0.4 ML Syringe SC (04:57)
[2017-07-21] MEDS: Gabapentin 300 MG Capsule PO ×2 (08:01→17:06)
[2017-07-21] MEDS: Multivitamins,Therapeutic Tablet 1 TABLET PO (08:01)
[2017-07-21] MEDS: Calcium (Elemental) 500 MG Tablet PO (08:01)
[2017-07-21] MEDS: Ceftriaxone 1 GM/50 ML BAG IV ×2 (08:02→20:28)
--- NOTE | 2017-07-21 08:14 | NURSING ---
Old 50mcg fentanyl patch removed from patient's right shoulder, new patch applied on right upper back.
--- NOTE | 2017-07-21 11:13 | NURSING ---
Stefanie, horologist apprentice RN was concerned that the skin tear to the LFA was looking worse. removed dressing. skin tear very small. no signs of infection noted. skin tear does not appear worse to this nurse than last week. cleansed skin tear with NS. placed double layer Adaptic to prevent drying out and covered with a dry dressing. wrapped with giacomo. Pt tolerated well. Pt denies further needs at this time.
[2017-07-21] MEDS: Acetaminophen 500 MG Tablet 1000 MG PO (11:35)
--- NOTE | 2017-07-21 11:44 | NURSING ---
Per Dr. Moya, continue IV rocephin x 2 more weeks. Pt. made aware.
--- NOTE | 2017-07-21 14:09 | MDS.RN ---
Information for the mds was obtained from review of the clinical record, interview of resident, staff, and direct observation of resident's care.
--- NOTE | 2017-07-21 15:09 | CASEMGMT ---
Insurance Clinical information faxed. Pending continued stay approval at this time. Auth#[id number] Kendra GIVENS, LATEX DIPPER
[2017-07-21 15:59] VITALS: BP 111/62; PULSE 63; RESP 20; TEMP 36.7; O2SAT 96
[2017-07-21] MEDS: 0.9% NaCl PICC Flush IV (17:06)
[2017-07-22] MEDS: Lisinopril 5 MG Tablet PO (06:36)
[2017-07-22] MEDS: levETIRAcetam 750 MG Tablet PO ×2 (06:36→16:56)
[2017-07-22] MEDS: Famotidine 20 MG Tablet PO ×2 (06:36→16:56)
[2017-07-22] MEDS: Enoxaparin 40 MG/0.4 ML Syringe SC (06:36)
[2017-07-22] MEDS: HYDROmorphone 2 MG TABLET 4 MG PO (06:45)
--- NOTE | 2017-07-22 06:49 | NURSING ---
Duragesic patch intact to Right upper back.
[2017-07-22] MEDS: Calcium (Elemental) 500 MG Tablet PO (08:02)
[2017-07-22] MEDS: Multivitamins,Therapeutic Tablet 1 TABLET PO (08:02)
[2017-07-22] MEDS: Gabapentin 300 MG Capsule PO ×2 (08:02→16:55)
[2017-07-22] MEDS: Ceftriaxone 1 GM/50 ML BAG IV ×2 (08:03→20:31)
--- NOTE | 2017-07-22 08:38 | NURSING ---
Dressing to BLLE and BL arms changed per order. Pt. tolerated well.
--- NOTE | 2017-07-22 09:53 | NURSING ---
Pt noted to have increased forgetfulness, order put in for ST consult, Dr. Kirk made aware.
--- NOTE | 2017-07-22 10:48 | NURSING ---
FENTANYL PATCH INTACT TO RT UPPER BACK.
[2017-07-22 15:04] VITALS: BP 111/75; PULSE 54; RESP 16; TEMP 36.4; O2SAT 97
[2017-07-22] MEDS: 0.9% NaCl PICC Flush IV (20:31)
[2017-07-23] MEDS: HYDROmorphone 2 MG TABLET 4 MG PO ×2 (05:18→18:30)
[2017-07-23] MEDS: Famotidine 20 MG Tablet PO ×2 (05:53→17:11)
[2017-07-23] MEDS: levETIRAcetam 750 MG Tablet PO ×2 (05:53→17:11)
[2017-07-23] MEDS: Enoxaparin 40 MG/0.4 ML Syringe SC (05:53)
[2017-07-23] MEDS: Lisinopril 5 MG Tablet PO (05:54)
--- NOTE | 2017-07-23 05:58 | NURSING ---
Duragesic patch remains intact to Right upper back.
[2017-07-23 06:36] LABS: Absolute Lymphocyte Count 0.46 X10^3/ul (0.83-4.51); Absolute Neutrophil Count 2.4 X10^3/uL (2.0-7.7); Basophil# 0.02 X10^3/uL; Basophil% 0.6 % (0-1); Eosinophil# 0.03 X10^3/uL; Eosinophils% 0.9 % (0-5); Hematocrit 33.8 % (37-47); Hemoglobin 10.3 g/dl (12.0-15.0); Lymphocyte # 0.46 X10^3/ul (4.0); Lymphocyte % 13.9 % (19-41); Mean Corp Hgb Conc 30.5 g/gl (32-36); Mean Corpuscular Hgb 31.3 pg (27.0-32.0); Mean Corpuscular Volume 102.7 fL (81-99); Mean Platelet Vol. 9.6 fl (6.2-12.0); Monocyte# 0.36 X10^3/uL; Monocyte% 10.9 % (0-10); Neutrophil # 2.42 X10^3/uL (2.7-7.7); Neutrophil % 73.1 % (47-70); Platelet Count 169 K/mm3 (150-450); RBC Distribution Width CV 14.3 % (11.6-14.6); RBC Distribution Width SD 53.5 fl (35.1-43.9); Red Blood Count 3.29 M/mm3 (4.2-5.4); White Blood Count 3.3 K/mm3 (4.4-11.0)
[2017-07-23 06:47] LABS: Erythrocyte Sedimentation Rate 20 mm/hr (0-30)
[2017-07-23 06:59] LABS: Anion Gap 9 (5-15); BUN 16 mg/dL (7-18); CRP 5.53 mg/L (0.0-3.0); Chloride 106 mmol/L (98-107); Creatinine, Serum 0.62 mg/dL (0.55-1.02); EST Glomerular Filtration Rate 106 mL/min (>60); Est Glom Filt Rate - Afr Amer 128 mL/min (>60); Estimated Creatinine Clearance 98.56 ml/min; Glucose 111 mg/dL (70-110); Potassium 3.3 mmol/L (3.5-5.1); Prealbumin 22.8 mg/dL (20.0-40.0); Sodium Level 140 mmol/L (136-145)
[2017-07-23 07:01] LABS: Differential Indicated SCAN CRITERIA MET; POSITIVE COUNT NO; POSITIVE DIFFERENTIAL YES; POSITIVE MORPHOLOGY NO
[2017-07-23] MEDS: Ceftriaxone 1 GM/50 ML BAG IV ×2 (07:51→20:12)
[2017-07-23] MEDS: Multivitamins,Therapeutic Tablet 1 TABLET PO (07:53)
[2017-07-23] MEDS: Gabapentin 300 MG Capsule PO ×2 (07:53→17:11)
[2017-07-23] MEDS: Calcium (Elemental) 500 MG Tablet PO (07:53)
[2017-07-23] MEDS: 0.9% NaCl PICC Flush IV ×2 (07:55→20:12)
[2017-07-23 09:57] LABS: Differential Comment SCANNED
--- NOTE | 2017-07-23 10:10 | NURSING ---
dr gee notified of labs, new order to start kdur now and daily. recheck BMP on tuesday
--- NOTE | 2017-07-23 10:53 | NURSING ---
FENTANYL PATCH INTACT TO RT UPPER BACK.
[2017-07-23 16:00] VITALS: BP 113/70; PULSE 59; RESP 18; TEMP 36.7; O2SAT 97
[2017-07-24] MEDS: HYDROmorphone 2 MG TABLET 4 MG PO ×3 (05:13→19:43)
[2017-07-24] MEDS: Enoxaparin 40 MG/0.4 ML Syringe SC (06:15)
[2017-07-24] MEDS: levETIRAcetam 750 MG Tablet PO ×2 (06:15→16:22)
[2017-07-24] MEDS: Lisinopril 5 MG Tablet PO (06:15)
[2017-07-24] MEDS: Famotidine 20 MG Tablet PO ×2 (06:15→16:22)
[2017-07-24] MEDS: Ceftriaxone 1 GM/50 ML BAG IV ×2 (07:35→20:25)
[2017-07-24] MEDS: 0.9% NaCl PICC Flush IV ×2 (07:35→20:25)
[2017-07-24] MEDS: Gabapentin 300 MG Capsule PO ×2 (07:37→16:22)
[2017-07-24] MEDS: Multivitamins,Therapeutic Tablet 1 TABLET PO (07:37)
[2017-07-24] MEDS: Calcium (Elemental) 500 MG Tablet PO (07:37)
[2017-07-24 15:38] VITALS: BP 106/70; PULSE 62; RESP 16; TEMP 36.6; O2SAT 94
[2017-07-24] MEDS: 0.9% NaCl IVPB Med Flush (250 mL) 15 ML IV (20:25)
[2017-07-25] MEDS: 0.9% NaCl PICC Flush IV ×2 (05:51→20:12)
[2017-07-25] MEDS: levETIRAcetam 750 MG Tablet PO ×2 (05:52→17:59)
[2017-07-25] MEDS: Enoxaparin 40 MG/0.4 ML Syringe SC (05:52)
[2017-07-25] MEDS: Lisinopril 5 MG Tablet PO (05:52)
[2017-07-25] MEDS: Famotidine 20 MG Tablet PO ×2 (05:52→17:59)
[2017-07-25] MEDS: Polyethylene Glycol 3350 17 GM PACKET PO (05:54)
[2017-07-25 06:22] LABS: Anion Gap 5 (5-15); BUN 21 mg/dL (7-18); BUN/Creat Ratio 33.3 RATIO (10-20); Calcium,Total 8.7 mg/dL (8.5-10.1); Chloride 103 mmol/L (98-107); Creatinine, Serum 0.63 mg/dL (0.55-1.02); EST Glomerular Filtration Rate 103 mL/min (>60); Est Glom Filt Rate - Afr Amer 124 mL/min (>60); Estimated Creatinine Clearance 96.99 ml/min; Glucose 89 mg/dL (70-110); Potassium 3.6 mmol/L (3.5-5.1); Sodium Level 138 mmol/L (136-145)
[2017-07-25] MEDS: Gabapentin 300 MG Capsule PO ×2 (08:25→17:59)
[2017-07-25] MEDS: Ceftriaxone 1 GM/50 ML BAG IV ×2 (08:25→20:11)
[2017-07-25] MEDS: Calcium (Elemental) 500 MG Tablet PO (08:25)
[2017-07-25] MEDS: Multivitamins,Therapeutic Tablet 1 TABLET PO (08:25)
[2017-07-25] MEDS: HYDROmorphone 2 MG TABLET 4 MG PO ×3 (09:26→23:55)
--- NOTE | 2017-07-25 10:22 | NURSING ---
Dr. Kirk reviewed labs, NNO at this time.
--- NOTE | 2017-07-25 10:55 | NURSING ---
Pt has a new skin tear to the RFA, states she hit it on her bedside dresser. Area cleansed with NS, adaptic and CDD applied. Will continue to monitor.
[2017-07-25] MEDS: Acetaminophen 500 MG Tablet 1000 MG PO (11:42)
[2017-07-25 15:38] VITALS: BP 108/74; PULSE 58; RESP 16; TEMP 36.6; O2SAT 96
[2017-07-26] MEDS: Lisinopril 5 MG Tablet PO (06:37)
[2017-07-26] MEDS: Famotidine 20 MG Tablet PO ×2 (06:37→18:16)
[2017-07-26] MEDS: levETIRAcetam 750 MG Tablet PO ×2 (06:37→18:15)
[2017-07-26] MEDS: Enoxaparin 40 MG/0.4 ML Syringe SC (06:38)
[2017-07-26] MEDS: Ceftriaxone 1 GM/50 ML BAG IV ×2 (08:28→20:23)
[2017-07-26] MEDS: 0.9% NaCl PICC Flush IV ×2 (08:29→20:28)
[2017-07-26] MEDS: Multivitamins,Therapeutic Tablet 1 TABLET PO (08:33)
[2017-07-26] MEDS: Gabapentin 300 MG Capsule PO ×2 (08:33→18:15)
[2017-07-26] MEDS: Calcium (Elemental) 500 MG Tablet PO (08:33)
--- NOTE | 2017-07-26 09:49 | CASEMGMT ---
Insurance Continued stay approved with next update due on 07/27/17. Auth#[id number] Kendra GIVENS, FUR REPAIRER
[2017-07-26] MEDS: HYDROmorphone 2 MG TABLET 4 MG PO (10:41)
[2017-07-26 16:00] VITALS: BP 99/67; PULSE 60; RESP 20; TEMP 36.4; O2SAT 95
[2017-07-27] MEDS: Enoxaparin 40 MG/0.4 ML Syringe SC (05:38)
[2017-07-27] MEDS: Famotidine 20 MG Tablet PO ×2 (05:38→16:46)
[2017-07-27] MEDS: Lisinopril 5 MG Tablet PO (05:39)
[2017-07-27] MEDS: levETIRAcetam 750 MG Tablet PO ×2 (05:39→16:46)
[2017-07-27] MEDS: Calcium (Elemental) 500 MG Tablet PO (08:12)
[2017-07-27] MEDS: Multivitamins,Therapeutic Tablet 1 TABLET PO (08:12)
[2017-07-27] MEDS: Ceftriaxone 1 GM/50 ML BAG IV ×2 (08:12→20:20)
[2017-07-27] MEDS: Gabapentin 300 MG Capsule PO ×2 (08:12→16:46)
[2017-07-27] MEDS: HYDROmorphone 2 MG TABLET 4 MG PO (08:13)
--- NOTE | 2017-07-27 08:27 | NURSING ---
fentanyl patch removed from patient's left upper back, new fentanyl patch placed on right upper back.
[2017-07-27 15:53] VITALS: BP 97/66; PULSE 55; RESP 18; TEMP 36.9; O2SAT 97
[2017-07-27] MEDS: Senna/Docusate Sodium 1 Tablet 2 TABLET PO (16:46)
[2017-07-27] MEDS: 0.9% NaCl PICC Flush IV (20:17)
[2017-07-28] MEDS: HYDROmorphone 2 MG TABLET 4 MG PO (00:23)
[2017-07-28] MEDS: Lisinopril 5 MG Tablet PO (04:30)
[2017-07-28] MEDS: Acetaminophen 500 MG Tablet 1000 MG PO (04:30)
[2017-07-28] MEDS: Enoxaparin 40 MG/0.4 ML Syringe SC (04:30)
[2017-07-28] MEDS: levETIRAcetam 750 MG Tablet PO ×2 (04:30→16:50)
[2017-07-28] MEDS: Famotidine 20 MG Tablet PO ×2 (04:30→16:50)
--- NOTE | 2017-07-28 05:44 | NURSING ---
duragesic patch intact to Right upper back.
[2017-07-28] MEDS: Ceftriaxone 1 GM/50 ML BAG IV ×2 (07:55→20:29)
[2017-07-28] MEDS: 0.9% NaCl PICC Flush IV ×2 (07:55→20:25)
[2017-07-28] MEDS: 0.9% NaCl IVPB Med Flush (250 mL) 15 ML IV (07:56)
[2017-07-28] MEDS: Calcium (Elemental) 500 MG Tablet PO (07:59)
[2017-07-28] MEDS: Multivitamins,Therapeutic Tablet 1 TABLET PO (07:59)
[2017-07-28] MEDS: Gabapentin 300 MG Capsule PO ×2 (07:59→16:50)
--- NOTE | 2017-07-28 08:03 | NURSING ---
duragesic patch to RT Upper back/shoulder
--- NOTE | 2017-07-28 10:46 | CASEMGMT ---
Insurance Clinicals faxed. Pending continued stay approval at this time. Auth#[id number] Kendra GIVENS, TOOL ENGINEER
--- NOTE | 2017-07-28 15:49 | NURSING ---
FENTANYL PATCH INTACT TO RT POSTERIOR SHOULDER.
[2017-07-28 16:00] VITALS: BP 121/75; PULSE 67; RESP 18; TEMP 36.8; O2SAT 95
[2017-07-29] MEDS: HYDROmorphone 2 MG TABLET 4 MG PO ×2 (01:24→10:04)
[2017-07-29] MEDS: levETIRAcetam 750 MG Tablet PO ×2 (04:46→16:45)
[2017-07-29] MEDS: Enoxaparin 40 MG/0.4 ML Syringe SC (04:46)
[2017-07-29] MEDS: Famotidine 20 MG Tablet PO ×2 (04:47→16:45)
[2017-07-29] MEDS: Lisinopril 5 MG Tablet PO (04:47)
[2017-07-29] MEDS: Acetaminophen 500 MG Tablet 1000 MG PO ×2 (04:49→16:05)
--- NOTE | 2017-07-29 04:51 | NURSING ---
Duragesic patch intact to Right upper back.
[2017-07-29] MEDS: Ceftriaxone 1 GM/50 ML BAG IV ×2 (07:49→20:26)
[2017-07-29] MEDS: Calcium (Elemental) 500 MG Tablet PO (07:49)
[2017-07-29] MEDS: Gabapentin 300 MG Capsule PO ×2 (07:49→16:45)
[2017-07-29] MEDS: Multivitamins,Therapeutic Tablet 1 TABLET PO (07:49)
[2017-07-29] MEDS: 0.9% NaCl PICC Flush IV ×2 (07:53→20:31)
--- NOTE | 2017-07-29 11:13 | PCM.PN.SRG ---
Subjective: Postop #35, Initial surgery was 06/24/17. Patient is resting comfortably. - Physical Exam General: Alert, Oriented x3 HEENT: PERRLA, EOMI Neck: Supple Lungs: Clear to auscultation Cardiovascular: Regular rate, Regular Rhythm Abdomen: Soft, Non-Distended Skin: Ulcer/ Wound - bilateral leg ulcers look clean with good granulation tissue present. Almost all the tendon covered with granulation tissue. Continue Silver dressing changes daily. Swelling resolving. Neurological: Cranial nerves II-XII grossly intact Psych/Mental Status: Normal Affect, Appropriate Vital Signs Temp Pulse Resp BP Pulse Ox 98.3 F 67 18 121/75 H 95 07/28/17 16:00 07/28/17 16:00 07/28/17 16:00 07/28/17 16:00 07/28/17 16:00 Oxygen Delivery Method Room Air Weight: 187 lb 9.814 oz Body Mass Index (BMI) 27.6 Intake and Output for Last 24 Hours 07/27/17 07/28/17 07/29/17 23:59 23:59 23:59 Intake Total 540 / 540 600 / 600 240 / 240 Balance 540 / 540 600 / 600 240 / 240 Assessment/Plan 1. Nonhealing ulcer left posterior leg. 2. Nonhealing ulcer left lateral inferior leg. 3. Nonhealing ulcer left lateral superior leg. 4. Nonhealing ulcer left lower anterior leg. 5. Nonhealing ulcer right lateral leg. 6. Nonhealing ulcer right superior anterior leg. 7. Nonhealing ulcer right lower leg/anterior ankle. 8. Nonhealing ulcer right medial ankle. 9. Brain tumor - receiving chemotherapy. 10. s/p surgical preparation left posterior leg with incision and drainage and excisional debridement nonhealing ulcer and surgical preparation left lateral inferior leg with incision and drainage and excisional debridement nonhealing ulcer and surgical preparation left lateral superior leg with incision and drainage and excisional debridement nonhealing ulcer and surgical preparation left lower anterior leg with incision and drainage and excisional debridement nonhealing ulcer and surgical preparation right lateral leg with incision and drainage and excisional debridement nonhealing ulcer and surgical preparation right superior anterior leg with incision and drainage and excisional debridement nonhealing ulcer and surgical preparation right lower leg/anterior ankle with incision and drainage and excisional debridement nonhealing ulcer and surgical preparation right medial ankle with incision and drainage and excisional debridement nonhealing ulcer. Continue IV Ceftriaxone until 08/05/17 (that will be 6 weeks). The ulcers show good improvement with the wound care. Will schedule further operative debridement and skin grafting for next week. Can tentatively discharge her home next weekend after antibiotics completed. Will have [facility] on Tuesday08/08/17 to evaluate the healing skin grafts. Also I anticipate some compromise to the healing skin grafts because of her immunocompromised state and she will be evaluated for HBO treatments at that time as well. Continue nutritional supplementation with protein to help the healing process. She is tolerating the daily Silver dressing changes. She is on po Dilaudid, Valium prn, Neurontin, Duragesic Patch. Plan is to heal the ulcers with skin grafting in preparation for further chemotherapy.
--- NOTE | 2017-07-29 11:17 | NURSING ---
wound photo: right lateral leg
--- NOTE | 2017-07-29 11:18 | NURSING ---
wound photo: right anterior/lateral leg
--- NOTE | 2017-07-29 11:18 | NURSING ---
wound photo: right medial leg
--- NOTE | 2017-07-29 11:19 | NURSING ---
wound photo: left anterior/lateral leg
--- NOTE | 2017-07-29 11:19 | NURSING ---
wound photo: left lateral leg
--- NOTE | 2017-07-29 11:19 | NURSING ---
wound photo: left posterior leg
[2017-07-29 15:00] VITALS: BP 120/68; PULSE 71; RESP 20; TEMP 37.1; O2SAT 94
[2017-07-29] MEDS: 0.9% NaCl IVPB Med Flush (250 mL) 15 ML IV (20:31)
[2017-07-30] MEDS: HYDROmorphone 2 MG TABLET 4 MG PO ×2 (02:03→13:00)
[2017-07-30] MEDS: Lisinopril 5 MG Tablet PO (06:42)
[2017-07-30] MEDS: Enoxaparin 40 MG/0.4 ML Syringe SC (06:43)
[2017-07-30] MEDS: Famotidine 20 MG Tablet PO ×2 (06:43→17:34)
[2017-07-30] MEDS: levETIRAcetam 750 MG Tablet PO ×2 (06:43→17:34)
[2017-07-30] MEDS: Multivitamins,Therapeutic Tablet 1 TABLET PO (08:06)
[2017-07-30] MEDS: Gabapentin 300 MG Capsule PO ×2 (08:06→17:34)
[2017-07-30] MEDS: Calcium (Elemental) 500 MG Tablet PO (08:06)
[2017-07-30] MEDS: Ceftriaxone 1 GM/50 ML BAG IV ×2 (08:08→20:14)
[2017-07-30] MEDS: 0.9% NaCl PICC Flush IV ×2 (08:08→20:14)
[2017-07-30] MEDS: 0.9% NaCl IVPB Med Flush (250 mL) 15 ML IV ×2 (08:09→20:16)
[2017-07-30 10:48] LABS: Absolute Lymphocyte Count 0.39 X10^3/ul (0.83-4.51); Absolute Neutrophil Count 4.2 X10^3/uL (2.0-7.7); Basophil# 0.01 X10^3/uL; Basophil% 0.2 % (0-1); Eosinophil# 0.01 X10^3/uL; Eosinophils% 0.2 % (0-5); Hematocrit 33.3 % (37-47); Hemoglobin 10.3 g/dl (12.0-15.0); Lymphocyte # 0.39 X10^3/ul (4.0); Lymphocyte % 7.7 % (19-41); Mean Corp Hgb Conc 30.9 g/gl (32-36); Mean Corpuscular Hgb 31.5 pg (27.0-32.0); Mean Corpuscular Volume 101.8 fL (81-99); Mean Platelet Vol. 9.6 fl (6.2-12.0); Monocyte# 0.45 X10^3/uL; Monocyte% 8.8 % (0-10); Neutrophil % 82.5 % (47-70); Platelet Count 175 K/mm3 (150-450); RBC Distribution Width SD 50.3 fl (35.1-43.9); Red Blood Count 3.27 M/mm3 (4.2-5.4); White Blood Count 5.1 K/mm3 (4.4-11.0)
[2017-07-30 10:49] LABS: Differential Indicated SCAN CRITERIA MET; Erythrocyte Sedimentation Rate 39 mm/hr (0-30); POSITIVE COUNT NO; POSITIVE DIFFERENTIAL YES; POSITIVE MORPHOLOGY NO
[2017-07-30 10:58] LABS: Anion Gap 8 (5-15); BUN 23 mg/dL (7-18); BUN/Creat Ratio 35.2 RATIO (10-20); CRP 5.78 mg/L (0.0-3.0); Calcium,Total 8.8 mg/dL (8.5-10.1); Chloride 102 mmol/L (98-107); Creatinine, Serum 0.65 mg/dL (0.55-1.02); EST Glomerular Filtration Rate 99 mL/min (>60); Est Glom Filt Rate - Afr Amer 119 mL/min (>60); Estimated Creatinine Clearance 94.01 ml/min; Glucose 101 mg/dL (70-110); Prealbumin 22.5 mg/dL (20.0-40.0); Sodium Level 140 mmol/L (136-145)
--- NOTE | 2017-07-30 12:08 | NURSING ---
Old Fentanyl patch removed from rt shoulder, new patch applied to lt shoulder. Wasted by flushing down toilet, witnessed by AMY Bowie. Unable to waste in Accudose d/t not showing up in Accudose.
[2017-07-30 16:12] VITALS: BP 102/60; PULSE 62; RESP 18; TEMP 37; O2SAT 95
[2017-07-31] MEDS: Enoxaparin 40 MG/0.4 ML Syringe SC (04:33)
[2017-07-31] MEDS: Famotidine 20 MG Tablet PO ×2 (04:33→16:46)
[2017-07-31] MEDS: Lisinopril 5 MG Tablet PO (04:33)
[2017-07-31] MEDS: levETIRAcetam 750 MG Tablet PO ×2 (04:34→16:46)
[2017-07-31] MEDS: HYDROmorphone 2 MG TABLET 4 MG PO (06:13)
[2017-07-31] MEDS: Calcium (Elemental) 500 MG Tablet PO (08:02)
[2017-07-31] MEDS: Multivitamins,Therapeutic Tablet 1 TABLET PO (08:02)
[2017-07-31] MEDS: Gabapentin 300 MG Capsule PO ×2 (08:03→16:46)
[2017-07-31] MEDS: Ceftriaxone 1 GM/50 ML BAG IV ×2 (08:03→20:15)
[2017-07-31] MEDS: Acetaminophen 500 MG Tablet 1000 MG PO (11:23)
[2017-07-31 15:59] VITALS: BP 97/60; PULSE 56; RESP 16; TEMP 36.6; O2SAT 97
[2017-07-31] MEDS: 0.9% NaCl PICC Flush IV (20:17)
[2017-08-01] MEDS: Famotidine 20 MG Tablet PO ×2 (04:21→16:31)
[2017-08-01] MEDS: Lisinopril 5 MG Tablet PO (04:21)
[2017-08-01] MEDS: levETIRAcetam 750 MG Tablet PO ×2 (04:21→16:31)
[2017-08-01] MEDS: Enoxaparin 40 MG/0.4 ML Syringe SC (04:22)
[2017-08-01] MEDS: Calcium (Elemental) 500 MG Tablet PO (08:39)
[2017-08-01] MEDS: Gabapentin 300 MG Capsule PO ×2 (08:39→16:30)
[2017-08-01] MEDS: Multivitamins,Therapeutic Tablet 1 TABLET PO (08:39)
[2017-08-01] MEDS: Ceftriaxone 1 GM/50 ML BAG IV ×2 (09:46→20:04)
--- NOTE | 2017-08-01 14:17 | NURSING ---
FENTANYL PATCH IN PLACE TO LEFT UPPER SHOULDER.
[2017-08-01 15:47] VITALS: BP 121/71; PULSE 73; RESP 18; TEMP 36.7; O2SAT 94
[2017-08-01] MEDS: 0.9% NaCl PICC Flush IV (20:05)
[2017-08-01] MEDS: 0.9% NaCl IVPB Med Flush (250 mL) 15 ML IV (20:05)
--- NOTE | 2017-08-01 21:12 | PCM.TCUNOT ---
Subjective: Resident is extremely happy, maybe a side effect of the decadron, she has no complaints. Vitals/I&O's: Vital Signs Temp Pulse Resp BP Pulse Ox 98.1 F 73 18 121/71 H 94 08/01/17 15:47 08/01/17 15:47 08/01/17 15:47 08/01/17 15:47 08/01/17 15:47 Oxygen Delivery Method Room Air Weight: 85.1 kg Body Mass Index (BMI) 27.6 Intake and Output for Last 24 Hours 07/30/17 07/31/17 08/01/17 23:59 23:59 23:59 Intake Total 840 / 840 720 / 720 1440 / 1440 Balance 840 / 840 720 / 720 1440 / 1440 Past Medical History Past Medical History (Chronic Problems): Chronic Problems (Last Updated 06/28/17 @ 11:52 by Israel Anne DO) Glioblastoma multiforme (Chronic) Allergies adhesive tape Adverse Reaction (Verified 06/24/17 09:09) VERY THIN STEROID SKIN WILL REMOVE SKIN IF ON TOO LONG Home Medications: Ambulatory Orders Medication Instructions Recorded Cholecalciferol (Vitamin D3) 5,000 unit PO DAILY 03/02/17 [Vitamin D3] Dexamethasone 3 mg PO DAILY 03/02/17 Famotidine [Pepcid] 20 mg PO BID 03/02/17 Multivitamin [Daily Multiple 1 each PO DAILY 03/02/17 Vitamin] Ondansetron [Zofran] 8 mg PO Q8H PRN PRN 03/02/17 Levetiracetam 750 mg PO BID 05/03/17 Lisinopril 1 tablet PO DAILY 05/03/17 Acetaminophen [Tylenol Tablet] 650 mg PO Q6H PRN PRN tablet 06/28/17 Diazepam [Valium] 5 mg PO 4X/DAY PRN PRN #30 tab 06/28/17 HydromorphONE [Dilaudid] 2 - 4 mg PO 4X/DAY PRN PRN #50 tab 06/28/17 Bisacodyl 10 mg RECTAL QHS PRN PRN 07/08/17 Calcium (Elemental) [Os-Guido 500] 500 mg PO DAILY 07/08/17 Ceftriaxone [Rocephin] 1 gm IV Q12 07/08/17 Docusate Sodium [Colace] 100 mg PO BID 07/08/17 Enoxaparin Sodium [Lovenox] 40 mg pe SC DAILY@0600 07/08/17 Fentanyl [Duragesic] 50 mcg TRANSDERM. Q3D@1000 07/08/17 Gabapentin [Neurontin] 300 mg PO BIDCM 07/08/17 Lactobacillus Acidophilus 1 each PO DAILY 07/08/17 [Acidophilus Lactobacilli] Magnesium Hydroxide [Milk Of 30 ml PO DAILY PRN PRN 07/08/17 Magnesia] Ondansetron [Zofran] 4 mg IV Q6H PRN PRN 07/08/17 ProMETHAzine [Phenergan] 25 mg PO Q4H PRN PRN 07/08/17 Surgical History: - - Brain tumor resection 10/2015. Psychiatric History: No pertinent psych hx [employer] History: No pertinent [employer] history Lives: Alone Smoking Status: Never smoker Tobacco Use: Non-smoker Alcohol: None Drugs: None - *Family History Maternal History Items: No pertinent history Paternal History Items: No pertinent history Review of Systems Constitutional: Denies: Chills, Fever, Weight Change HEENT: Denies: Head Aches, Sinus Congestion, Sinus Drainage Cardiovascular: Denies: Chest Pain, Palpitations Respiratory: Denies: Cough, Shortness of breath at rest, Sputum production Gastrointestinal: Denies: Abdominal Pain, Nausea, Vomiting Genitourinary: Denies: Dysuria Musculoskeletal: Denies: Joint Pain, Joint Tenderness Skin: Denies: Rash, Wounds Neurological: Denies: Numbness, Tingling, Focal weakness Psychiatric: Denies: Anxiety, Depression, Homicidal Ideations, Suicidal Ideations Hematologic/ Lymphatic: Denies: Easy Bruising, Easy Bleeding - Physical Exam General: Alert, Oriented x3, Cooperative HEENT: Atraumatic, PERRLA, EOMI, Normocephalic Neck: Supple, No JVD, Negative Carotid Bruits Lungs: Clear to auscultation, Normal air movement Cardiovascular: Regular rate, No murmurs Abdomen: Bowel Sounds Present, Soft, Non Tender Extremities: No edema, Capillary Refill Less than 3 Seconds, - - Dressings to bilateral lower extremities. Skin: No rashes, No breakdown Musculoskeletal: No Tenderness to Palpation of Joints or Extremities Neurological: Cranial nerves II-XII grossly intact Psych/Mental Status: Normal Affect, Appropriate Vital Signs Temp Pulse Resp BP Pulse Ox 98.1 F 73 18 121/71 H 94 08/01/17 15:47 08/01/17 15:47 08/01/17 15:47 08/01/17 15:47 08/01/17 15:47 Oxygen Delivery Method Room Air Weight: 85.1 kg Body Mass Index (BMI) 27.6 Intake and Output for Last 24 Hours 07/30/17 07/31/17 08/01/17 23:59 23:59 23:59 Intake Total 840 / 840 720 / 720 1440 / 1440 Balance 840 / 840 720 / 720 1440 / 1440 Assessment/Plan 57 year old female with below past medical history significant for glioblastoma, hospitalized for chronic bilateral lower extremity ulcers, underwent incision, drainage, debridement 06/24/[address] Moya, admitted to TCU for rehabilitation, strengthening, intravenous antibiotics, wound care, prior to discharge home. Resident will need skin grafts with Dr. Moya to help with ulcer healing. Debility - PT/OT. Pain - Tylenol 1000MG Q8H PRN mild pain, Fentanyl patch 50MCG 1 patch TD Q72H, Dilaudid 4MG PO 4x/day PRN severe pain, pain controlled. Bowel - Miralax 17GM daily, Senna/colace 2 tablets BID, Dulcolax 10MG GA QHS PRN. Adult immunization - Administer Prevnar 13 and/or Pneumovax 23 as necessary, Fluvax given. DVT prophylaxis - Hold Lovenox in preparation for surgery. Calcium deficiency - Calcium 500MG daily. Bilateral lower extremity wound infections - Ceftriaxone 1GM IV Q12H, Dr. Moya planning debridement, skin grafting surgery 08/02/2017, then back to TCU, then discharge home. Vitamin D deficiency - D3 5000IU daily. Glioblastoma status post resection 10/2015 - Decadron 3MG daily, chemotherapy after leg wounds heal. Anxiety - Diazepam 5MG Q6H PRN. Nutrition - Ensure Enlive 120ML 4x/day, MVI daily. GERD - Famotidine 20MG BID, MOM 30ML daily PRN. Neuropathic pain - Gabapentin 300MG BID. GI prophylaxis - Lactobacillus 1 tablet daily. Seizure disorder - Keppra 750MG BID. Hypertension - Lisinopril 5MG daily. Nausea - Zofran 8MG PO Q8H PRN, Zofran 4MG IV Q6H PRN, Compazine 25MG Q4H PRN, nausea controlled.
--- NOTE | 2017-08-01 21:15 | PN_ITS ---
Subjective: Resident is extremely happy, maybe a side effect of the decadron, she has no complaints. Vitals/I&O's: Vital Signs Temp Pulse Resp BP Pulse Ox 98.1 F 73 18 121/71 H 94 08/01/17 15:47 08/01/17 15:47 08/01/17 15:47 08/01/17 15:47 08/01/17 15:47 Oxygen Delivery Method Room Air Weight: 85.1 kg Body Mass Index (BMI) 27.6 Intake and Output for Last 24 Hours 07/30/17 07/31/17 08/01/17 23:59 23:59 23:59 Intake Total 840 / 840 720 / 720 1440 / 1440 Balance 840 / 840 720 / 720 1440 / 1440 Past Medical History Past Medical History (Chronic Problems): Chronic Problems (Last Updated 06/28/17 @ 11:52 by Israel Anne DO) Glioblastoma multiforme (Chronic) Allergies adhesive tape Adverse Reaction (Verified 06/24/17 09:09) VERY THIN STEROID SKIN WILL REMOVE SKIN IF ON TOO LONG Home Medications: Ambulatory Orders Medication Instructions Recorded Cholecalciferol (Vitamin D3) 5,000 unit PO DAILY 03/02/17 [Vitamin D3] Dexamethasone 3 mg PO DAILY 03/02/17 Famotidine [Pepcid] 20 mg PO BID 03/02/17 Multivitamin [Daily Multiple 1 each PO DAILY 03/02/17 Vitamin] Ondansetron [Zofran] 8 mg PO Q8H PRN PRN 03/02/17 Levetiracetam 750 mg PO BID 05/03/17 Lisinopril 1 tablet PO DAILY 05/03/17 Acetaminophen [Tylenol Tablet] 650 mg PO Q6H PRN PRN tablet 06/28/17 Diazepam [Valium] 5 mg PO 4X/DAY PRN PRN #30 tab 06/28/17 HydromorphONE [Dilaudid] 2 - 4 mg PO 4X/DAY PRN PRN #50 tab 06/28/17 Bisacodyl 10 mg RECTAL QHS PRN PRN 07/08/17 Calcium (Elemental) [Os-Guido 500] 500 mg PO DAILY 07/08/17 Ceftriaxone [Rocephin] 1 gm IV Q12 07/08/17 Docusate Sodium [Colace] 100 mg PO BID 07/08/17 Enoxaparin Sodium [Lovenox] 40 mg pe SC DAILY@0600 07/08/17 Fentanyl [Duragesic] 50 mcg TRANSDERM. Q3D@1000 07/08/17 Gabapentin [Neurontin] 300 mg PO BIDCM 07/08/17 Lactobacillus Acidophilus 1 each PO DAILY 07/08/17 [Acidophilus Lactobacilli] Magnesium Hydroxide [Milk Of 30 ml PO DAILY PRN PRN 07/08/17 Magnesia] Ondansetron [Zofran] 4 mg IV Q6H PRN PRN 07/08/17 ProMETHAzine [Phenergan] 25 mg PO Q4H PRN PRN 07/08/17 Surgical History: - - Brain tumor resection 10/2015. 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 Lives: Alone Smoking Status: Never smoker Tobacco Use: Non-smoker Alcohol: None Drugs: None - *Family History Maternal History Items: No pertinent history Paternal History Items: No pertinent history Review of Systems Constitutional: Denies: Chills, Fever, Weight Change HEENT: Denies: Head Aches, Sinus Congestion, Sinus Drainage Cardiovascular: Denies: Chest Pain, Palpitations Respiratory: Denies: Cough, Shortness of breath at rest, Sputum production Gastrointestinal: Denies: Abdominal Pain, Nausea, Vomiting Genitourinary: Denies: Dysuria Musculoskeletal: Denies: Joint Pain, Joint Tenderness Skin: Denies: Rash, Wounds Neurological: Denies: Numbness, Tingling, Focal weakness Psychiatric: Denies: Anxiety, Depression, Homicidal Ideations, Suicidal Ideations Hematologic/ Lymphatic: Denies: Easy Bruising, Easy Bleeding - Physical Exam General: Alert, Oriented x3, Cooperative HEENT: Atraumatic, PERRLA, EOMI, Normocephalic Neck: Supple, No JVD, Negative Carotid Bruits Lungs: Clear to auscultation, Normal air movement Cardiovascular: Regular rate, No murmurs Abdomen: Bowel Sounds Present, Soft, Non Tender Extremities: No edema, Capillary Refill Less than 3 Seconds, - - Dressings to bilateral lower extremities. Skin: No rashes, No breakdown Musculoskeletal: No Tenderness to Palpation of Joints or Extremities Neurological: Cranial nerves II-XII grossly intact Psych/Mental Status: Normal Affect, Appropriate Vital Signs Temp Pulse Resp BP Pulse Ox 98.1 F 73 18 121/71 H 94 08/01/17 15:47 08/01/17 15:47 08/01/17 15:47 08/01/17 15:47 08/01/17 15:47 Oxygen Delivery Method Room Air Weight: 85.1 kg Body Mass Index (BMI) 27.6 Intake and Output for Last 24 Hours 07/30/17 07/31/17 08/01/17 23:59 23:59 23:59 Intake Total 840 / 840 720 / 720 1440 / 1440 Balance 840 / 840 720 / 720 1440 / 1440 Assessment/Plan 57 year old female with below past medical history significant for glioblastoma , hospitalized for chronic bilateral lower extremity ulcers, underwent incision , drainage, debridement 06/24/[address] Moya, admitted to TCU for rehabilitation, strengthening, intravenous antibiotics, wound care, prior to discharge home. Resident will need skin grafts with Dr. Moya to help with ulcer healing. * Debility - PT/OT. * Pain - Tylenol 1000MG Q8H PRN mild pain, Fentanyl patch 50MCG 1 patch TD Q72H , Dilaudid 4MG PO 4x/day PRN severe pain, pain controlled. * Bowel - Miralax 17GM daily, Senna/colace 2 tablets BID, Dulcolax 10MG CT QHS PRN. * Adult immunization - Administer Prevnar 13 and/or Pneumovax 23 as necessary, Fluvax given. * DVT prophylaxis - Hold Lovenox in preparation for surgery. * Calcium deficiency - Calcium 500MG daily. * Bilateral lower extremity wound infections - Ceftriaxone 1GM IV Q12H, Dr. Moya planning debridement, skin grafting surgery 08/02/2017, then back to TCU, then discharge home. * Vitamin D deficiency - D3 5000IU daily. * Glioblastoma status post resection 10/2015 - Decadron 3MG daily, chemotherapy after leg wounds heal. * Anxiety - Diazepam 5MG Q6H PRN. * Nutrition - Ensure Enlive 120ML 4x/day, MVI daily. * GERD - Famotidine 20MG BID, MOM 30ML daily PRN. * Neuropathic pain - Gabapentin 300MG BID. * GI prophylaxis - Lactobacillus 1 tablet daily. * Seizure disorder - Keppra 750MG BID. * Hypertension - Lisinopril 5MG daily. * Nausea - Zofran 8MG PO Q8H PRN, Zofran 4MG IV Q6H PRN, Compazine 25MG Q4H PRN , nausea controlled.
[2017-08-02] MEDS: levETIRAcetam 750 MG Tablet PO ×2 (05:31→17:46)
[2017-08-02] MEDS: Lisinopril 5 MG Tablet PO (05:31)
[2017-08-02] MEDS: Famotidine 20 MG Tablet PO ×2 (05:31→17:46)
[2017-08-02] MEDS: Ceftriaxone 1 GM/50 ML BAG IV ×2 (08:24→20:36)
--- NOTE | 2017-08-02 08:26 | NURSING ---
called Dr sharpe to verify that he wanted IV Rocephin given this AM.
--- NOTE | 2017-08-02 08:46 | NURSING ---
surgery here to take pt to OR for skin grafting this am
--- NOTE | 2017-08-02 11:02 | CASEMGMT ---
Insurance Continued stay approved with next update due on 08/02/17. Auth#[id number] Kendra GIVENS, HR ADMINISTRATIVE ASSISTANT
--- NOTE | 2017-08-02 15:09 | CASEMGMT ---
Insurance Clinical information faxed. Pending continued stay approval at this time. Auth#[id number] Kendra GIVENS, PUMP AND STILL OPERATOR
--- NOTE | 2017-08-02 15:33 | NURSING ---
pt back from surgery via bed, alert & oriented. Pleasant.
[2017-08-02] MEDS: HYDROmorphone 2 MG TABLET 4 MG PO (15:48)
--- NOTE | 2017-08-02 15:58 | NURSING ---
Complains of pain to abdomen and lower legs. Dilaudid Po given and Fentanyl patch changed. Resident takes Ensure without issues. Dressing to abdomen and legs Dry and intact. OBEY drains with scant amount of drainage noted.
[2017-08-02 16:00] VITALS: BP 105/63; PULSE 70; RESP 18; TEMP 36.4; O2SAT 92
[2017-08-02] MEDS: Acetaminophen 500 MG Tablet 1000 MG PO (17:46)
[2017-08-02] MEDS: Gabapentin 300 MG Capsule PO (17:46)
[2017-08-02] MEDS: Senna/Docusate Sodium 1 Tablet 2 TABLET PO (17:46)
--- NOTE | 2017-08-02 18:11 | NURSING ---
PT W/INCREASED PAIN SINCE SKIN GRAFT SURGERY. DR TRAN AWARE, NEW ORDER TO INCREASE DILAUDID
[2017-08-02] MEDS: HYDROmorphone 2 MG TABLET 8 MG PO (19:49)
[2017-08-02] MEDS: 0.9% NaCl PICC Flush IV (20:36)
[2017-08-03] MEDS: HYDROmorphone 2 MG TABLET 8 MG PO ×2 (01:23→11:00)
--- NOTE | 2017-08-03 01:25 | NURSING ---
35cc sanguineous drainage emptied from OBEY drain at this time.
--- NOTE | 2017-08-03 03:26 | NURSING ---
Duragesic patch remains intact to Right Shoulder.
[2017-08-03 05:00] LABS: Hematocrit 35.2 % (37-47); Hemoglobin 10.8 g/dl (12.0-15.0); Mean Corp Hgb Conc 30.7 g/gl (32-36); Mean Corpuscular Hgb 30.9 pg (27.0-32.0); Mean Corpuscular Volume 100.9 fL (81-99); Mean Platelet Vol. 9.4 fl (6.2-12.0); Platelet Count 213 K/mm3 (150-450); RBC Distribution Width CV 14.2 % (11.6-14.6); RBC Distribution Width SD 51.5 fl (35.1-43.9); Red Blood Count 3.49 M/mm3 (4.2-5.4); White Blood Count 8.7 K/mm3 (4.4-11.0)
[2017-08-03 05:02] LABS: Scan Indicated on CBC? Y/N NO
[2017-08-03] MEDS: levETIRAcetam 750 MG Tablet PO ×2 (05:07→18:04)
[2017-08-03 05:09] LABS: Anion Gap 8 (5-15); BUN 20 mg/dL (7-18); BUN/Creat Ratio 31.3 RATIO (10-20); Chloride 101 mmol/L (98-107); Creatinine, Serum 0.64 mg/dL (0.55-1.02); EST Glomerular Filtration Rate 101 mL/min (>60); Est Glom Filt Rate - Afr Amer 123 mL/min (>60); Estimated Creatinine Clearance 95.48 ml/min; Glucose 101 mg/dL (70-110); Potassium 4.4 mmol/L (3.5-5.1); Sodium Level 138 mmol/L (136-145)
[2017-08-03] MEDS: Enoxaparin 30 MG/0.3 ML Syringe SC (05:09)
[2017-08-03] MEDS: Lisinopril 5 MG Tablet PO (05:10)
[2017-08-03] MEDS: Famotidine 20 MG Tablet PO ×2 (05:10→17:56)
[2017-08-03] MEDS: Senna/Docusate Sodium 1 Tablet 2 TABLET PO ×2 (05:10→17:53)
[2017-08-03] MEDS: Ceftriaxone 1 GM/50 ML BAG IV ×2 (07:37→20:16)
[2017-08-03] MEDS: 0.9% NaCl IVPB Med Flush (250 mL) 15 ML IV (07:37)
[2017-08-03] MEDS: 0.9% NaCl PICC Flush IV ×2 (07:38→20:16)
[2017-08-03] MEDS: Gabapentin 300 MG Capsule PO ×2 (07:42→17:46)
[2017-08-03] MEDS: Calcium (Elemental) 500 MG Tablet PO (07:42)
[2017-08-03] MEDS: Multivitamins,Therapeutic Tablet 1 TABLET PO (07:42)
--- NOTE | 2017-08-03 15:52 | CASEMGMT ---
Social Work Continued stay approved with next update due on 08/05/17 Auth#[id number] Kendra GIVENS, LITHOSTRIPPER
[2017-08-03 16:00] VITALS: BP 137/83; PULSE 74; RESP 18; TEMP 37.1; O2SAT 91
[2017-08-03] MEDS: Acetaminophen 500 MG Tablet 1000 MG PO (17:45)
[2017-08-04] MEDS: HYDROmorphone 2 MG TABLET 8 MG PO (02:34)
--- NOTE | 2017-08-04 03:17 | NURSING ---
This nurse called to room by pt. Pt stated she was looking for a pair of socks in her drawer and hit her leg on the drawer. Skin tear noted to left leg below the knee. Skin tear cleansed with NS, adaptic and DSD was applied. Pt OBEY drain was hanging down and was wrapped around her leg. Pt had taken her abdominal binder off and up done the safety pin keeping the drain up. Binder reapplied and OBEY drain safely attached. Educated pt on importance of making sure binder and drain were working properly. Pts NICKY wraps to BLLE were also falling off. Adjusted to BLLE and her feet were wrapped d/t +1 pitting edema. Encouraged pt to call out for assistance. Pt agreed. Pt resting comfortably in bed with call light in reach.
[2017-08-04] MEDS: Senna/Docusate Sodium 1 Tablet 2 TABLET PO ×2 (06:12→17:28)
[2017-08-04] MEDS: levETIRAcetam 750 MG Tablet PO ×2 (06:12→17:27)
[2017-08-04] MEDS: Lisinopril 5 MG Tablet PO (06:12)
[2017-08-04] MEDS: Famotidine 20 MG Tablet PO ×2 (06:12→17:27)
[2017-08-04] MEDS: Enoxaparin 30 MG/0.3 ML Syringe SC (06:13)
[2017-08-04] MEDS: Gabapentin 300 MG Capsule PO ×2 (09:32→17:28)
[2017-08-04] MEDS: Multivitamins,Therapeutic Tablet 1 TABLET PO (09:33)
[2017-08-04] MEDS: Calcium (Elemental) 500 MG Tablet PO (09:33)
[2017-08-04] MEDS: Acetaminophen 500 MG Tablet 1000 MG PO ×2 (10:44→20:49)
[2017-08-04] MEDS: Ceftriaxone 1 GM/50 ML BAG IV ×2 (10:45→20:31)
[2017-08-04 15:13] VITALS: BP 108/73; PULSE 62; RESP 16; TEMP 35.8; O2SAT 94
[2017-08-04] MEDS: 0.9% NaCl PICC Flush IV (20:32)
[2017-08-04 21:00] VITALS: O2SAT 98
[2017-08-05] MEDS: Lisinopril 5 MG Tablet PO (05:19)
[2017-08-05] MEDS: Senna/Docusate Sodium 1 Tablet 2 TABLET PO ×2 (05:19→17:48)
[2017-08-05] MEDS: Enoxaparin 30 MG/0.3 ML Syringe SC (05:20)
[2017-08-05] MEDS: levETIRAcetam 750 MG Tablet PO ×2 (05:20→17:48)
[2017-08-05] MEDS: Famotidine 20 MG Tablet PO ×2 (05:20→17:48)
[2017-08-05] MEDS: Gabapentin 300 MG Capsule PO ×2 (08:30→17:48)
[2017-08-05] MEDS: 0.9% NaCl PICC Flush IV ×2 (08:32→21:32)
[2017-08-05] MEDS: Multivitamins,Therapeutic Tablet 1 TABLET PO (09:05)
[2017-08-05] MEDS: Calcium (Elemental) 500 MG Tablet PO (09:05)
--- NOTE | 2017-08-05 09:08 | NURSING ---
duragesic applied to Lt upper back/shoulder blade.
--- NOTE | 2017-08-05 10:18 | CASEMGMT ---
Insurance Clinical information faxed. Pending continued stay approval at this time. Auth#[id number] Kendra GIVENS, NAIL MILL WORKER
--- NOTE | 2017-08-05 10:33 | PCM.RX.CS ---
Subjective/Objective Date: 08/05/17 Time: 10:33 Antibiotic: Vancomycin Type of Consult: New start Indications for Therapy: Skin/Soft Tissue Labs: Sodium 138 mmol/L (136-145) 08/03/17 04:50 Potassium 4.4 mmol/L (3.5-5.1) 08/03/17 04:50 Chloride 101 mmol/L (98-107) 08/03/17 04:50 Carbon Dioxide 29.0 mmol/L (21.0-32.0) 08/03/17 04:50 Anion Gap 8 (5-15) 08/03/17 04:50 BUN 20 mg/dL (7-18) H 08/03/17 04:50 Creatinine 0.64 mg/dL (0.55-1.02) 08/03/17 04:50 Est GFR (MDRD) Af Amer 123 mL/min (>60) 08/03/17 04:50 Est GFR (MDRD) Non-Af 101 mL/min (>60) 08/03/17 04:50 BUN/Creatinine Ratio 31.3 RATIO (10-20) H 08/03/17 04:50 Glucose 101 mg/dL (70-110) 08/03/17 04:50 Pharmacy Plan for Drug Dosing: Goal vancomycin trough 10-15 mcg/mL. Recommend vancomycin 1250mg IV q12h for est trough 10 mcg/mL. Check Tuesday. Pharmacy Service will continue to monitor and adjust dosing as required. Pharmacy to order these labs: Trough - Vancomycin Labs to be done on (date): 08/08/17 Labs to be done (time): 10:00
[2017-08-05] MEDS: 0.9% NaCl IVPB Med Flush (250 mL) 15 ML IV (13:33)
[2017-08-05] MEDS: HYDROmorphone 2 MG TABLET 8 MG PO (13:40)
[2017-08-05 15:38] VITALS: BP 133/82; PULSE 63; RESP 18; TEMP 36.8; O2SAT 94
--- NOTE | 2017-08-05 15:55 | PCM.PN.SRG ---
Subjective: Postop #3 Patient is resting comfortably. Skin graft dressing changes done today. Operative culture showed Enterococcus faecium that is resistant to Augmentin. - Physical Exam General: Alert, Oriented x3 HEENT: PERRLA, EOMI Neck: Supple Lungs: Clear to auscultation Cardiovascular: Regular rate, Regular Rhythm Abdomen: Soft, Non-Distended Skin: Ulcer/ Wound - Bilateral leg ulcers are skin grafted. The left anterior lower leg graft shows the most compromise about 50%. The other grafts show good adherence with graft take ranging from 80-100%. Silver dressings were applied. Some drainage noted., Incision - abdominal incision is dry and intact. No clinical evidence of hematoma. Neurological: Cranial nerves II-XII grossly intact Psych/Mental Status: Normal Affect, Appropriate Vital Signs Temp Pulse Resp BP Pulse Ox 98.2 F 63 18 133/82 H 94 08/05/17 15:38 08/05/17 15:38 08/05/17 15:38 08/05/17 15:38 08/05/17 15:38 Oxygen Delivery Method Room Air Weight: 187 lb 9.814 oz Body Mass Index (BMI) 27.6 Intake and Output for Last 24 Hours 08/03/17 08/04/17 08/05/17 23:59 23:59 23:59 Intake Total 780 / 780 1040 / 1040 480 / 480 Output Total 85 / 85 75 / 75 Balance 695 / 695 965 / 965 480 / 480 Drainage 75 ml yesterday. Assessment/Plan 1. Nonhealing ulcer left posterior leg. 2. Nonhealing ulcer left lateral leg. 3. Nonhealing ulcer left anterior lower leg. 4. Nonhealing ulcer right lateral leg. 5. Nonhealing ulcer right anterior superior leg. 6. Nonhealing ulcer right lower leg/medial ankle. 7. Brain tumor - receiving chemotherapy. 8. s/p excisional debridement nonhealing ulcer left posterior leg with STSG reconstruction from lower anterior abdominal wall (9 cm2) and excisional debridement nonhealing ulcer left lateral leg with STSG reconstruction from lower anterior abdominal wall (30.5 cm2) and excisional debridement nonhealing ulcer left anterior lower leg with STSG reconstruction from lower anterior abdominal wall (27 cm2) and excisional debridement nonhealing ulcer right lateral leg with STSG reconstruction from lower anterior abdominal wall (14.25 cm2) and excisional debridement nonhealing ulcer right anterior superior leg with STSG reconstruction from lower anterior abdominal wall (7 cm2) and excisional debridement nonhealing ulcer right lower leg/medial ankle with STSG reconstruction from lower anterior abdominal wall (24.5 cm2). 9. Early compromise to skin grafts bilateral leg ulcers. The Ceftriaxone has been stopped because it has finished 6 weeks and also because the operative culture on the right leg showed Enterococcus faecium that is resistant to Augmentin. Vancomycin was started today. Will hold off on discharge for at least a week to see how well the skin grafts improve on the IV antibiotics. Some drainage was noted from the grafts. Will redress the graft sites with a Silver dressing which will absorb the drainage and help with the healing process. Will decide next week if it is rodríguez to continue the IV antibiotics and hold off on evaluation at the [facility] for HBO treatments or if I should have her proceed with the HBO. It may be difficult to do the IV antibiotics at home which adds to the complex decision making. There is no good po alternative except for Zyvox and that would have to be approved by her insurance. If it can be approved, then that could be an option in order to get started on the HBO treatments from home and still have provision for po antibiotic coverage. With the Silver dressing change today, there is already evidence of skin graft compromise to the healing skin grafts because of her immunocompromised state so the HBO treatments are necessary. Continue nutritional supplementation with protein to help the healing process. She is on po Dilaudid, Valium prn, Neurontin, Duragesic Patch for the Silver dressing changes and it is tolerable. Plan is to heal the ulcers with skin grafting in preparation for further chemotherapy.
[2017-08-05 21:47] VITALS: PULSE 64; RESP 16; O2SAT 95
[2017-08-06] MEDS: Senna/Docusate Sodium 1 Tablet 2 TABLET PO ×2 (05:47→18:07)
[2017-08-06] MEDS: Lisinopril 5 MG Tablet PO (05:47)
[2017-08-06] MEDS: Famotidine 20 MG Tablet PO ×2 (05:47→18:07)
[2017-08-06] MEDS: levETIRAcetam 750 MG Tablet PO ×2 (05:47→18:07)
[2017-08-06] MEDS: Enoxaparin 30 MG/0.3 ML Syringe SC (05:47)
[2017-08-06] MEDS: Calcium (Elemental) 500 MG Tablet PO (08:46)
[2017-08-06] MEDS: Gabapentin 300 MG Capsule PO ×2 (08:46→18:07)
[2017-08-06] MEDS: Multivitamins,Therapeutic Tablet 1 TABLET PO (08:46)
[2017-08-06 11:30] LABS: Erythrocyte Sedimentation Rate 64 mm/hr (0-30)
[2017-08-06 11:31] LABS: Hematocrit 35.2 % (37-47); Mean Corp Hgb Conc 31.3 g/gl (32-36); Mean Corpuscular Hgb 31.3 pg (27.0-32.0); Mean Platelet Vol. 9.5 fl (6.2-12.0); Platelet Count 220 K/mm3 (150-450); RBC Distribution Width CV 14.5 % (11.6-14.6); RBC Distribution Width SD 51.8 fl (35.1-43.9); Red Blood Count 3.52 M/mm3 (4.2-5.4); White Blood Count 6.6 K/mm3 (4.4-11.0)
[2017-08-06 11:32] LABS: Scan Indicated on CBC? Y/N NO
[2017-08-06 11:44] LABS: BUN 24 mg/dL (7-18); BUN/Creat Ratio 33.1 RATIO (10-20); Chloride 101 mmol/L (98-107); Creatinine, Serum 0.72 mg/dL (0.55-1.02); EST Glomerular Filtration Rate 88 mL/min (>60); Est Glom Filt Rate - Afr Amer 106 mL/min (>60); Estimated Creatinine Clearance 84.87 ml/min; Glucose 104 mg/dL (70-110); Potassium 4.3 mmol/L (3.5-5.1); Sodium Level 138 mmol/L (136-145)
[2017-08-06 11:45] LABS: Anion Gap 7 (5-15)
[2017-08-06 16:00] VITALS: BP 97/59; PULSE 68; RESP 16; TEMP 36.2; O2SAT 93
--- NOTE | 2017-08-06 16:25 | NURSING ---
Labs reviewed, NNO.
[2017-08-06] MEDS: 0.9% NaCl PICC Flush IV (21:23)
[2017-08-07] MEDS: Enoxaparin 30 MG/0.3 ML Syringe SC (04:11)
[2017-08-07] MEDS: levETIRAcetam 750 MG Tablet PO ×2 (04:11→17:12)
[2017-08-07] MEDS: Lisinopril 5 MG Tablet PO (04:12)
[2017-08-07] MEDS: Famotidine 20 MG Tablet PO ×2 (04:12→17:12)
--- NOTE | 2017-08-07 04:15 | NURSING ---
Duragesic patch intact to Left Upper back.
[2017-08-07] MEDS: Acetaminophen 500 MG Tablet 1000 MG PO (06:35)
[2017-08-07] MEDS: HYDROmorphone 2 MG TABLET 8 MG PO (07:03)
[2017-08-07] MEDS: Multivitamins,Therapeutic Tablet 1 TABLET PO (09:19)
[2017-08-07] MEDS: Gabapentin 300 MG Capsule PO ×2 (09:19→17:12)
[2017-08-07] MEDS: Calcium (Elemental) 500 MG Tablet PO (09:19)
[2017-08-07] MEDS: 0.9% NaCl PICC Flush IV (10:59)
[2017-08-07] MEDS: 0.9% NaCl IVPB Med Flush (250 mL) 15 ML IV (10:59)
[2017-08-07 15:54] VITALS: BP 115/72; PULSE 69; RESP 18; TEMP 36.7; O2SAT 93
[2017-08-08] MEDS: levETIRAcetam 750 MG Tablet PO ×2 (05:16→18:06)
[2017-08-08] MEDS: Lisinopril 5 MG Tablet PO (05:16)
[2017-08-08] MEDS: Enoxaparin 30 MG/0.3 ML Syringe SC (05:16)
[2017-08-08] MEDS: Famotidine 20 MG Tablet PO ×2 (05:16→18:06)
[2017-08-08] MEDS: Acetaminophen 500 MG Tablet 1000 MG PO (05:18)
--- NOTE | 2017-08-08 06:37 | NURSING ---
Duragesic patch intact to Left upper back.
[2017-08-08 06:39] VITALS: PULSE 61; O2SAT 97
--- NOTE | 2017-08-08 08:17 | CASEMGMT ---
Insurance Continued stay approved. Next update due on 08/10/17. LCD: 08/10/17. Auth#[id number] Kendra GIVENS, TATY
[2017-08-08] MEDS: Gabapentin 300 MG Capsule PO ×2 (09:11→18:06)
[2017-08-08] MEDS: Multivitamins,Therapeutic Tablet 1 TABLET PO (09:11)
[2017-08-08] MEDS: Calcium (Elemental) 500 MG Tablet PO (09:11)
--- NOTE | 2017-08-08 09:22 | NURSING ---
OLD FENTANYL REMOVED AND FLUSHED,WITNESS BY AMY BAPTISTE AND NEW FENTANYL PATCH APPLIED TO RIGHT SHOULDER.
[2017-08-08 10:15] LABS: Vancomycin, Trough Level 17.4 ug/mL (5.0-15.0)
--- NOTE | 2017-08-08 10:36 | NURSING ---
eliot in pharmacy dc'd 10am IV Vanc this am, wants bag sent back to pharmacy and they will restart it tomorrow.
[2017-08-08] MEDS: HYDROmorphone 2 MG TABLET 8 MG PO ×2 (11:51→20:32)
[2017-08-08] MEDS: 0.9% NaCl PICC Flush IV (13:32)
[2017-08-08 15:41] VITALS: BP 105/74; PULSE 62; RESP 18; TEMP 36.8; O2SAT 92
[2017-08-09] MEDS: Enoxaparin 30 MG/0.3 ML Syringe SC (05:11)
[2017-08-09] MEDS: levETIRAcetam 750 MG Tablet PO ×2 (05:11→17:16)
[2017-08-09] MEDS: Famotidine 20 MG Tablet PO ×2 (05:11→17:16)
[2017-08-09] MEDS: Lisinopril 5 MG Tablet PO (05:12)
[2017-08-09] MEDS: Gabapentin 300 MG Capsule PO ×2 (09:18→17:16)
[2017-08-09] MEDS: Calcium (Elemental) 500 MG Tablet PO (09:18)
[2017-08-09] MEDS: Multivitamins,Therapeutic Tablet 1 TABLET PO (09:18)
--- NOTE | 2017-08-09 09:21 | NURSING ---
wound photo: left anterior lateral lower leg
--- NOTE | 2017-08-09 09:23 | NURSING ---
wound photo: left lateral lower leg
--- NOTE | 2017-08-09 09:23 | NURSING ---
wound photo: left posterior lower leg
[2017-08-09] MEDS: HYDROmorphone 2 MG TABLET 8 MG PO (09:24)
--- NOTE | 2017-08-09 09:24 | NURSING ---
wound photo: right distal/lateral lower leg
--- NOTE | 2017-08-09 09:25 | NURSING ---
wound photo: right proximal/lateral lower leg
--- NOTE | 2017-08-09 09:25 | NURSING ---
wound photo: right medial lower leg
--- NOTE | 2017-08-09 09:26 | NURSING ---
wound photo: abdomen
[2017-08-09 10:00] VITALS: PULSE 70; RESP 18; O2SAT 95
[2017-08-09] MEDS: 0.9% NaCl IVPB Med Flush (250 mL) 15 ML IV (11:06)
[2017-08-09] MEDS: 0.9% NaCl PICC Flush IV ×2 (11:06→21:00)
[2017-08-09 15:35] VITALS: BP 121/81; PULSE 64; RESP 20; TEMP 36.6; O2SAT 93
[2017-08-10] MEDS: Enoxaparin 30 MG/0.3 ML Syringe SC (05:33)
[2017-08-10] MEDS: Lisinopril 5 MG Tablet PO (05:33)
[2017-08-10] MEDS: Famotidine 20 MG Tablet PO ×2 (05:33→17:30)
[2017-08-10] MEDS: levETIRAcetam 750 MG Tablet PO ×2 (05:33→17:30)
[2017-08-10] MEDS: Calcium (Elemental) 500 MG Tablet PO (08:39)
[2017-08-10] MEDS: Multivitamins,Therapeutic Tablet 1 TABLET PO (08:39)
[2017-08-10] MEDS: Gabapentin 300 MG Capsule PO ×2 (08:39→17:30)
[2017-08-10] MEDS: 0.9% NaCl PICC Flush IV ×2 (11:13→21:01)
[2017-08-10] MEDS: 0.9% NaCl IVPB Med Flush (250 mL) 15 ML IV (11:13)
--- NOTE | 2017-08-10 13:05 | CASEMGMT ---
Insurance Clinical information faxed. Pending continued stay approval at this time. Auth#[id number] Kendra GIVENS, CASH SHORTAGE INVESTIGATOR
--- NOTE | 2017-08-10 14:47 | CASEMGMT ---
Insurance Continued stay approved with next update due on 08/15/17; LCD: 08/15/17. Auth#[id number] Kendra GIVENS, HIGHWAY TRAFFIC CONTROL TECHNICIAN
[2017-08-10 16:00] VITALS: BP 113/68; PULSE 71; RESP 16; TEMP 36.8; O2SAT 94
[2017-08-10] MEDS: Acetaminophen 500 MG Tablet 1000 MG PO (17:33)
[2017-08-10 22:00] VITALS: O2SAT 98
[2017-08-11] MEDS: HYDROmorphone 2 MG TABLET 8 MG PO ×2 (00:22→11:10)
[2017-08-11] MEDS: Famotidine 20 MG Tablet PO ×2 (05:35→18:16)
[2017-08-11] MEDS: Enoxaparin 30 MG/0.3 ML Syringe SC (05:35)
[2017-08-11] MEDS: Lisinopril 5 MG Tablet PO (05:35)
[2017-08-11] MEDS: levETIRAcetam 750 MG Tablet PO ×2 (05:35→18:16)
[2017-08-11] MEDS: Multivitamins,Therapeutic Tablet 1 TABLET PO (09:35)
[2017-08-11] MEDS: Gabapentin 300 MG Capsule PO ×2 (09:35→18:16)
[2017-08-11] MEDS: Calcium (Elemental) 500 MG Tablet PO (09:36)
[2017-08-11 15:20] VITALS: BP 103/64; PULSE 60; RESP 18; TEMP 36.4; O2SAT 94
[2017-08-11] MEDS: Senna/Docusate Sodium 1 Tablet 2 TABLET PO (18:16)
[2017-08-11] MEDS: 0.9% NaCl PICC Flush IV (21:28)
[2017-08-11 22:00] VITALS: PULSE 60; RESP 16
[2017-08-12] MEDS: levETIRAcetam 750 MG Tablet PO ×2 (07:13→17:23)
[2017-08-12] MEDS: Famotidine 20 MG Tablet PO ×2 (07:13→17:23)
[2017-08-12] MEDS: Lisinopril 5 MG Tablet PO (07:13)
[2017-08-12] MEDS: Enoxaparin 30 MG/0.3 ML Syringe SC (07:14)
[2017-08-12] MEDS: Calcium (Elemental) 500 MG Tablet PO (08:04)
[2017-08-12] MEDS: Multivitamins,Therapeutic Tablet 1 TABLET PO (08:04)
[2017-08-12] MEDS: Gabapentin 300 MG Capsule PO ×2 (08:04→17:23)
[2017-08-12 10:43] LABS: Vancomycin, Trough Level 16.3 ug/mL (5.0-15.0)
[2017-08-12] MEDS: 0.9% NaCl PICC Flush IV ×2 (10:48→21:47)
[2017-08-12] MEDS: 0.9% NaCl IVPB Med Flush (250 mL) 15 ML IV ×2 (10:49→21:47)
[2017-08-12] MEDS: HYDROmorphone 2 MG TABLET 8 MG PO (14:18)
[2017-08-12 16:12] VITALS: BP 122/79; PULSE 58; RESP 18; TEMP 35.9; O2SAT 95
[2017-08-12] MEDS: Senna/Docusate Sodium 1 Tablet 2 TABLET PO (17:23)
--- NOTE | 2017-08-12 17:53 | PCM.PN.SRG ---
Subjective: Postop #10 Patient is resting comfortably. - Physical Exam General: Alert, Oriented x3 HEENT: PERRLA, EOMI Neck: Supple Lungs: Clear to auscultation Cardiovascular: Regular rate, Regular Rhythm Abdomen: Soft, Non-Distended Skin: Ulcer/ Wound - Bilateral leg ulcers are skin grafted. The left anterior lower leg graft shows the most compromise about 70%. The other grafts show good adherence with graft take ranging from 80-100%. Silver dressings were applied. Less drainage noted., Incision - abdominal incision is dry and intact. No clinical evidence of hematoma. Neurological: Cranial nerves II-XII grossly intact Psych/Mental Status: Normal Affect, Appropriate Vital Signs Temp Pulse Resp BP Pulse Ox 96.7 F L 58 L 18 122/79 H 95 08/12/17 16:12 08/12/17 16:12 08/12/17 16:12 08/12/17 16:12 08/12/17 16:12 Oxygen Delivery Method Room Air Weight: 187 lb 2.759 oz Body Mass Index (BMI) 27.6 Intake and Output for Last 24 Hours 08/10/17 08/11/17 08/12/17 23:59 23:59 23:59 Intake Total 960 / 960 1360 / 1360 360 / 360 Balance 960 / 960 1360 / 1360 360 / 360 Laboratory Tests Past 24 Hrs 08/12/17 09:34 Vancomycin Trough 16.3 H Assessment/Plan 1. Nonhealing ulcer left posterior leg. 2. Nonhealing ulcer left lateral leg. 3. Nonhealing ulcer left anterior lower leg. 4. Nonhealing ulcer right lateral leg. 5. Nonhealing ulcer right anterior superior leg. 6. Nonhealing ulcer right lower leg/medial ankle. 7. Brain tumor - receiving chemotherapy. 8. s/p excisional debridement nonhealing ulcer left posterior leg with STSG reconstruction from lower anterior abdominal wall (9 cm2) and excisional debridement nonhealing ulcer left lateral leg with STSG reconstruction from lower anterior abdominal wall (30.5 cm2) and excisional debridement nonhealing ulcer left anterior lower leg with STSG reconstruction from lower anterior abdominal wall (27 cm2) and excisional debridement nonhealing ulcer right lateral leg with STSG reconstruction from lower anterior abdominal wall (14.25 cm2) and excisional debridement nonhealing ulcer right anterior superior leg with STSG reconstruction from lower anterior abdominal wall (7 cm2) and excisional debridement nonhealing ulcer right lower leg/medial ankle with STSG reconstruction from lower anterior abdominal wall (24.5 cm2). 9. Early compromise to skin grafts bilateral leg ulcers. Continue Vancomycin for the Enterococcus. Will try and get approval for Zyvox at home so she can be discharged. It would be difficult to do IV Vancomycin at home for her because she can be forgetful. I don't want to keep her here at [facility] for an extended time until the Vancomycin is done because I want to get her started with [facility] to help salvage some of these compromised skin grafts. Some drainage was noted from the grafts. Will redress the graft sites with a Silver dressing which will absorb the drainage and help with the healing process. With the Silver dressing change today, there is already evidence of skin graft compromise to the healing skin grafts because of her immunocompromised state so the HBO treatments are necessary. Continue nutritional supplementation with protein to help the healing process. She is on po Dilaudid, Valium prn, Neurontin, Duragesic Patch for the Silver dressing changes and it is tolerable. Plan is to heal the ulcers with skin grafting in preparation for further chemotherapy.
[2017-08-13] MEDS: levETIRAcetam 750 MG Tablet PO ×2 (05:29→17:46)
[2017-08-13] MEDS: Enoxaparin 30 MG/0.3 ML Syringe SC (05:31)
[2017-08-13] MEDS: Lisinopril 5 MG Tablet PO (05:32)
[2017-08-13] MEDS: Famotidine 20 MG Tablet PO ×2 (05:32→17:46)
--- NOTE | 2017-08-13 05:33 | NURSING ---
Duragesic patch intact to Left upper back.
[2017-08-13] MEDS: Gabapentin 300 MG Capsule PO ×2 (08:49→17:47)
[2017-08-13] MEDS: Multivitamins,Therapeutic Tablet 1 TABLET PO (08:49)
[2017-08-13] MEDS: Calcium (Elemental) 500 MG Tablet PO (08:51)
[2017-08-13] MEDS: 0.9% NaCl IVPB Med Flush (250 mL) 15 ML IV (09:09)
[2017-08-13] MEDS: 0.9% NaCl PICC Flush IV ×2 (09:09→21:41)
[2017-08-13 10:00] VITALS: PULSE 93; RESP 16; O2SAT 95
[2017-08-13] MEDS: HYDROmorphone 2 MG TABLET 8 MG PO (10:21)
[2017-08-13 16:00] VITALS: BP 109/76; PULSE 73; RESP 18; TEMP 36.4; O2SAT 96
[2017-08-13] MEDS: Senna/Docusate Sodium 1 Tablet 2 TABLET PO (17:46)
[2017-08-14] MEDS: levETIRAcetam 750 MG Tablet PO ×2 (05:35→17:06)
[2017-08-14] MEDS: Famotidine 20 MG Tablet PO ×2 (05:35→17:06)
[2017-08-14] MEDS: Lisinopril 5 MG Tablet PO (05:35)
[2017-08-14] MEDS: Enoxaparin 30 MG/0.3 ML Syringe SC (05:37)
[2017-08-14] MEDS: Multivitamins,Therapeutic Tablet 1 TABLET PO (08:10)
[2017-08-14] MEDS: Calcium (Elemental) 500 MG Tablet PO (08:10)
[2017-08-14] MEDS: Gabapentin 300 MG Capsule PO ×2 (08:11→17:06)
[2017-08-14] MEDS: 0.9% NaCl PICC Flush IV ×2 (10:03→21:21)
[2017-08-14] MEDS: HYDROmorphone 2 MG TABLET 8 MG PO ×2 (14:03→21:21)
[2017-08-14 16:00] VITALS: BP 93/58; PULSE 61; RESP 18; TEMP 36.8; O2SAT 97
[2017-08-14] MEDS: 0.9% NaCl IVPB Med Flush (250 mL) 15 ML IV (21:19)
--- NOTE | 2017-08-15 02:07 | PCM.PN.RX ---
<Nasir Campbell D - Last Filed: 08/15/17 02:07> Progress Note - Pharmacy Subjective: [facility]CU Follow-up Objective: Allergies adhesive tape Adverse Reaction (Verified 06/24/17 09:09) VERY THIN STEROID SKIN WILL REMOVE SKIN IF ON TOO LONG Home Medications Medication Instructions Recorded Cholecalciferol (Vitamin D3) 5,000 unit PO DAILY 03/02/17 [Vitamin D3] Dexamethasone 3 mg PO DAILY 03/02/17 Famotidine [Pepcid] 20 mg PO BID 03/02/17 Multivitamin [Daily Multiple 1 each PO DAILY 03/02/17 Vitamin] Ondansetron [Zofran] 8 mg PO Q8H PRN PRN 03/02/17 Levetiracetam 750 mg PO BID 05/03/17 Lisinopril 1 tablet PO DAILY 05/03/17 Acetaminophen [Tylenol Tablet] 650 mg PO Q6H PRN PRN tablet 06/28/17 Diazepam [Valium] 5 mg PO 4X/DAY PRN PRN #30 tab 06/28/17 HydromorphONE [Dilaudid] 2 - 4 mg PO 4X/DAY PRN PRN #50 tab 06/28/17 Bisacodyl 10 mg RECTAL QHS PRN PRN 07/08/17 Calcium (Elemental) [Os-Guido 500] 500 mg PO DAILY 07/08/17 Ceftriaxone [Rocephin] 1 gm IV Q12 07/08/17 Docusate Sodium [Colace] 100 mg PO BID 07/08/17 Enoxaparin Sodium [Lovenox] 40 mg pe SC DAILY@0600 07/08/17 Fentanyl [Duragesic] 50 mcg TRANSDERM. Q3D@1000 07/08/17 Gabapentin [Neurontin] 300 mg PO BIDCM 07/08/17 Lactobacillus Acidophilus 1 each PO DAILY 07/08/17 [Acidophilus Lactobacilli] Magnesium Hydroxide [Milk Of 30 ml PO DAILY PRN PRN 07/08/17 Magnesia] Ondansetron [Zofran] 4 mg IV Q6H PRN PRN 07/08/17 ProMETHAzine [Phenergan] 25 mg PO Q4H PRN PRN 07/08/17 Current Medications Generic Name Dose Route Start Last Admin Trade Name Freq PRN Reason Stop Dose Admin Acetaminophen 1,000 mg 07/08/17 17:25 08/10/17 17:33 Tylenol PO 1,000 mg Q8H PRN PRN Administration MILD PAIN (1-3/10) Bisacodyl 10 mg 07/08/17 14:07 Dulcolax RECTAL QHS PRN PRN Constipation Calcium Carbonate 500 mg 07/09/17 08:00 08/14/17 08:10 Os-Guido 500 PO 500 mg DAILYCM [facility] Administration Cholecalciferol 5,000 unit 07/09/17 08:00 08/14/17 08:10 Vitamin D PO 5,000 unit DAILY@0800 [facility] Administration Dexamethasone 3 mg 07/09/17 08:00 08/14/17 08:10 Decadron PO 3 mg DAILY@0800 [facility] Administration Diazepam 5 mg 07/08/17 14:07 07/12/17 14:58 Valium PO 5 mg Q6H PRN PRN Administration SPASMS Enoxaparin Sodium 30 mg 08/03/17 06:00 08/14/17 05:37 Lovenox SC 30 mg DAILY@0600 [facility] Administration Famotidine 20 mg 07/08/17 18:00 08/14/17 17:06 Pepcid PO 20 mg BID [facility] Administration Fentanyl 50 mcg 07/09/17 12:00 08/14/17 08:11 Duragesic TRANSDERM. 50 mcg Q3D@1000 [facility] Administration Gabapentin 300 mg 07/08/17 17:00 08/14/17 17:06 Neurontin PO 300 mg BIDCM [facility] Administration Heparin Sodium (Beef Lung) 500 unit 07/08/17 14:40 Heparin 500 Unit/5 Ml (100/Ml) IV UD PRN HEPARIN FLUSH Hydromorphone HCl 8 mg 08/02/17 18:00 08/14/17 21:21 Dilaudid PO 8 mg Q4H PRN Administration SEVERE PAIN (6-10/10) Sodium Chloride 250 mls @ 15 mls/hr 07/24/17 14:39 08/14/17 21:19 IV 15 mls/hr .[id number] PRN Administration SALINE FLUSH Vancomycin HCl 500 mg in 100 mls @ 100 mls/hr 08/12/17 22:00 08/14/17 21:16 IV 100 mls/hr Q12H [facility] Administration Lactobacillus Acidophilus 1 tablet 07/09/17 06:00 08/14/17 05:35 Acidophilus PO 1 tablet DAILY [facility] Administration Levetiracetam 750 mg 07/08/17 18:00 08/14/17 17:06 Keppra PO 750 mg BID [facility] Administration Lisinopril 5 mg 07/09/17 06:00 08/14/17 05:35 Zestril PO 5 mg DAILY [facility] Administration Magnesium Hydroxide 30 ml 07/08/17 14:07 Milk Of Magnesia PO DAILY PRN PRN Constipation Multivitamins 1 tablet 07/09/17 08:00 08/14/17 08:10 Multivitamin PO 1 tablet DAILY@0800 [facility] Administration Nutritional Formula 1 packet 07/09/17 08:00 08/14/17 17:06 Rodger - [place] Flavor PO 1 packet BIDCM [facility] Administration Nutritional Formula (Lactose Free) 120 ml 07/08/17 17:00 08/14/17 21:13 Ensure Enlive PO 120 ml 4X/DAY [facility] Administration Ondansetron HCl 8 mg 07/08/17 14:07 Zofran PO Q8H PRN PRN NAUSEA Ondansetron HCl 4 mg 07/08/17 14:16 07/14/17 19:53 Zofran IV 4 mg Q6H PRN PRN Administration NAUSEA Polyethylene Glycol 17 gm 07/09/17 06:00 08/14/17 05:38 Miralax PO Not Given DAILY [facility] Potassium Chloride 20 meq 07/24/17 08:00 08/14/17 08:12 K-Dur PO 20 meq DAILYCM [facility] Administration Promethazine HCl 25 mg 07/08/17 14:07 Phenergan PO Q4H PRN PRN NAUSEA/VOMITING Senna/Docusate Sodium 2 tablet 07/08/17 18:00 08/14/17 17:06 Senokot-S, Riddhi-Colace PO Not Given BID [facility] Sodium Chloride 10 - 20 ml 07/08/17 14:40 08/14/17 21:21 IV 20 ml UD PRN Administration PICC FLUSH Problem List (Last Updated 06/28/17 @ 11:52 by Israel Anne DO) Glioblastoma multiforme (Chronic) Vital Signs Temp Pulse Resp BP Pulse Ox 98.2 F 61 18 93/58 L 97 08/14/17 16:00 08/14/17 16:00 08/14/17 16:00 08/14/17 16:00 08/14/17 16:00 Oxygen Delivery Method Room Air Weight: 84.9 kg Body Mass Index (BMI) 27.6 Sodium 138 mmol/L (136-145) 08/06/17 11:05 Potassium 4.3 mmol/L (3.5-5.1) 08/06/17 11:05 Chloride 101 mmol/L (98-107) 08/06/17 11:05 Carbon Dioxide 30.0 mmol/L (21.0-32.0) 08/06/17 11:05 Anion Gap 7 (5-15) 08/06/17 11:05 BUN 24 mg/dL (7-18) H 08/06/17 11:05 Creatinine 0.72 mg/dL (0.55-1.02) 08/06/17 11:05 Est GFR (MDRD) Af Amer 106 mL/min (>60) 08/06/17 11:05 Est GFR (MDRD) Non-Af 88 mL/min (>60) 08/06/17 11:05 BUN/Creatinine Ratio 33.1 RATIO (10-20) H 08/06/17 11:05 Glucose 104 mg/dL (70-110) 08/06/17 11:05 Vancomycin Trough 16.3 ug/mL (5.0-15.0) H 08/12/17 09:34 Assessment/Plan: 1) Pain APAP for mild pain, hydromorphone for severe pain, fentanyl patch, gabapentin, diazepam for spasm. Continue to monitor prn medication use, daily pain scores. 2) Oncology Dexamethasone daily. Continue to monitor BGT, for neurologic symptoms. 3) ID Vancomycin for skin/soft tissue infection. Continue to monitor s/s infection. 4) BP Lisinopril. BP within goal range, no recent labs. Continue to monitor renal function, electrolytes, BP. 5) Seizure Levetiracetam twice daily. Continue to monitor for seizure. 6) GI Famotidine, Lactobacillus, prn ondansetron, prn promethazine. Continue to monitor prn medication use, s/s GI distress. 7) Nutrition Multivitamin, Rodger, Ensure, Ca, D, KCl. Continue to monitor electrolytes. 8) DVT PPx Enoxaparin daily. Continue to monitor s/s bleeding/clot. Psychotropic Medications: None Unnecessary Medications: None Bowel Regimen: 9) Senna/s, PEG, prn bisacodyl, MgOH prn. Continue to monitor prn medication use, for constipation/diarrhea. Date of Note:: 08/15/17 - Provider Comments Provider responsibility: Provider responsible to enter orders to implement recommendations <Regis Kirk Chi - Last Filed: 08/15/17 08:00> Progress Note - Pharmacy Subjective: [] Objective: Allergies adhesive tape Adverse Reaction (Verified 06/24/17 09:09) VERY THIN STEROID SKIN WILL REMOVE SKIN IF ON TOO LONG Home Medications Medication Instructions Recorded Cholecalciferol (Vitamin D3) 5,000 unit PO DAILY 03/02/17 [Vitamin D3] Dexamethasone 3 mg PO DAILY 03/02/17 Famotidine [Pepcid] 20 mg PO BID 03/02/17 Multivitamin [Daily Multiple 1 each PO DAILY 03/02/17 Vitamin] Ondansetron [Zofran] 8 mg PO Q8H PRN PRN 03/02/17 Levetiracetam 750 mg PO BID 05/03/17 Lisinopril 1 tablet PO DAILY 05/03/17 Acetaminophen [Tylenol Tablet] 650 mg PO Q6H PRN PRN tablet 06/28/17 Diazepam [Valium] 5 mg PO 4X/DAY PRN PRN #30 tab 06/28/17 HydromorphONE [Dilaudid] 2 - 4 mg PO 4X/DAY PRN PRN #50 tab 06/28/17 Bisacodyl 10 mg RECTAL QHS PRN PRN 07/08/17 Calcium (Elemental) [Os-Guido 500] 500 mg PO DAILY 07/08/17 Ceftriaxone [Rocephin] 1 gm IV Q12 07/08/17 Docusate Sodium [Colace] 100 mg PO BID 07/08/17 Enoxaparin Sodium [Lovenox] 40 mg pe SC DAILY@0600 07/08/17 Fentanyl [Duragesic] 50 mcg TRANSDERM. Q3D@1000 07/08/17 Gabapentin [Neurontin] 300 mg PO BIDCM 07/08/17 Lactobacillus Acidophilus 1 each PO DAILY 07/08/17 [Acidophilus Lactobacilli] Magnesium Hydroxide [Milk Of 30 ml PO DAILY PRN PRN 07/08/17 Magnesia] Ondansetron [Zofran] 4 mg IV Q6H PRN PRN 07/08/17 ProMETHAzine [Phenergan] 25 mg PO Q4H PRN PRN 07/08/17 Current Medications Generic Name Dose Route Start Last Admin Trade Name Freq PRN Reason Stop Dose Admin Acetaminophen 1,000 mg 07/08/17 17:25 08/10/17 17:33 Tylenol PO 1,000 mg Q8H PRN PRN Administration MILD PAIN (1-3/10) Bisacodyl 10 mg 07/08/17 14:07 Dulcolax RECTAL QHS PRN PRN Constipation Calcium Carbonate 500 mg 07/09/17 08:00 08/14/17 08:10 Os-Guido 500 PO 500 mg DAILYCM [facility] Administration Cholecalciferol 5,000 unit 07/09/17 08:00 08/14/17 08:10 Vitamin D PO 5,000 unit DAILY@0800 [facility] Administration Dexamethasone 3 mg 07/09/17 08:00 08/14/17 08:10 Decadron PO 3 mg DAILY@0800 [facility] Administration Diazepam 5 mg 07/08/17 14:07 07/12/17 14:58 Valium PO 5 mg Q6H PRN PRN Administration SPASMS Enoxaparin Sodium 30 mg 08/03/17 06:00 08/15/17 05:42 Lovenox SC 30 mg DAILY@0600 [facility] Administration Famotidine 20 mg 07/08/17 18:00 08/15/17 05:43 Pepcid PO 20 mg BID [facility] Administration Fentanyl 50 mcg 07/09/17 12:00 08/14/17 08:11 Duragesic TRANSDERM. 50 mcg Q3D@1000 [facility] Administration Gabapentin 300 mg 07/08/17 17:00 08/14/17 17:06 [id number] Heparin Sodium (Beef Lung) 500 unit 07/08/17 14:40 Heparin 500 Unit/5 Ml (100/Ml) IV UD PRN HEPARIN FLUSH Hydromorphone HCl 8 mg 08/02/17 18:00 08/14/17 21:21 Dilaudid PO 8 mg Q4H PRN Administration SEVERE PAIN (6-10/10) Sodium Chloride 250 mls @ 15 mls/hr 07/24/17 14:39 08/14/17 21:19 IV 15 mls/hr .[id number] PRN Administration SALINE FLUSH Vancomycin HCl 500 mg in 100 mls @ 100 mls/hr 08/12/17 22:00 08/14/17 21:16 IV 100 mls/hr Q12H [facility] Administration Lactobacillus Acidophilus 1 tablet 07/09/17 06:00 08/15/17 05:43 Acidophilus PO 1 tablet DAILY [facility] Administration Levetiracetam 750 mg 07/08/17 18:00 08/15/17 05:43 Keppra PO 750 mg BID [facility] Administration Lisinopril 5 mg 07/09/17 06:00 08/15/17 05:43 Zestril PO 5 mg DAILY [facility] Administration Magnesium Hydroxide 30 ml 07/08/17 14:07 Milk Of Magnesia PO DAILY PRN PRN Constipation Multivitamins 1 tablet 07/09/17 08:00 08/14/17 08:10 Multivitamin PO 1 tablet DAILY@0800 [facility] Administration Nutritional Formula 1 packet 07/09/17 08:00 08/14/17 17:06 [place] - [place] Flavor PO 1 packet BIDCM [facility] Administration Nutritional Formula (Lactose Free) 120 ml 07/08/17 17:00 08/15/17 05:41 Ensure Enlive PO 120 ml 4X/DAY [facility] Administration Ondansetron HCl 8 mg 07/08/17 14:07 Zofran PO Q8H PRN PRN NAUSEA Ondansetron HCl 4 mg 07/08/17 14:16 07/14/17 19:53 Zofran IV 4 mg Q6H PRN PRN Administration NAUSEA Polyethylene Glycol 17 gm 07/09/17 06:00 08/15/17 05:42 Miralax PO Not Given DAILY [facility] Potassium Chloride 20 meq 07/24/17 08:00 08/14/17 08:12 K-Dur PO 20 meq DAILYCM [facility] Administration Promethazine HCl 25 mg 07/08/17 14:07 Phenergan PO Q4H PRN PRN NAUSEA/VOMITING Senna/Docusate Sodium 2 tablet 07/08/17 18:00 08/15/17 05:42 Senokot-S, Riddhi-Colace PO Not Given BID [facility] Sodium Chloride 10 - 20 ml 07/08/17 14:40 08/14/17 21:21 IV 20 ml UD PRN Administration PICC FLUSH Problem List (Last Updated 06/28/17 @ 11:52 by Israel Anne DO) Glioblastoma multiforme (Chronic) Vital Signs Temp Pulse Resp BP Pulse Ox 98.2 F 61 18 93/58 L 97 08/14/17 16:00 08/14/17 16:00 08/14/17 16:00 08/14/17 16:00 08/14/17 16:00 Oxygen Delivery Method Room Air Weight: 84.9 kg Body Mass Index (BMI) 27.6 Sodium 138 mmol/L (136-145) 08/06/17 11:05 Potassium 4.3 mmol/L (3.5-5.1) 08/06/17 11:05 Chloride 101 mmol/L (98-107) 08/06/17 11:05 Carbon Dioxide 30.0 mmol/L (21.0-32.0) 08/06/17 11:05 Anion Gap 7 (5-15) 08/06/17 11:05 BUN 24 mg/dL (7-18) H 08/06/17 11:05 Creatinine 0.72 mg/dL (0.55-1.02) 08/06/17 11:05 Est GFR (MDRD) Af Amer 106 mL/min (>60) 08/06/17 11:05 Est GFR (MDRD) Non-Af 88 mL/min (>60) 08/06/17 11:05 BUN/Creatinine Ratio 33.1 RATIO (10-20) H 08/06/17 11:05 Glucose 104 mg/dL (70-110) 08/06/17 11:05 Vancomycin Trough 16.3 ug/mL (5.0-15.0) H 08/12/17 09:34 Assessment/Plan: Psychotropic Medications: Unnecessary Medications: Bowel Regimen: - Provider Comments Provider responsibility: Provider responsible to enter orders to implement recommendations Provider Comments to Recommendations by Pharmacy: Agree
--- NOTE | 2017-08-15 02:10 | PHA.CONS_ITS ---
<Nasir Campbell D - Last Filed: 08/15/17 02:07> Progress Note - Pharmacy Subjective: TCU Follow-up Objective: Allergies adhesive tape Adverse Reaction (Verified 06/24/17 09:09) VERY THIN STEROID SKIN WILL REMOVE SKIN IF ON TOO LONG Home Medications Medication Instructions Recorded Cholecalciferol (Vitamin D3) 5,000 unit PO DAILY 03/02/17 [Vitamin D3] Dexamethasone 3 mg PO DAILY 03/02/17 Famotidine [Pepcid] 20 mg PO BID 03/02/17 Multivitamin [Daily Multiple 1 each PO DAILY 03/02/17 Vitamin] Ondansetron [Zofran] 8 mg PO Q8H PRN PRN 03/02/17 Levetiracetam 750 mg PO BID 05/03/17 Lisinopril 1 tablet PO DAILY 05/03/17 Acetaminophen [Tylenol Tablet] 650 mg PO Q6H PRN PRN tablet 06/28/17 Diazepam [Valium] 5 mg PO 4X/DAY PRN PRN #30 tab 06/28/17 HydromorphONE [Dilaudid] 2 - 4 mg PO 4X/DAY PRN PRN #50 tab 06/28/17 Bisacodyl 10 mg RECTAL QHS PRN PRN 07/08/17 Calcium (Elemental) [Os-Guido 500] 500 mg PO DAILY 07/08/17 Ceftriaxone [Rocephin] 1 gm IV Q12 07/08/17 Docusate Sodium [Colace] 100 mg PO BID 07/08/17 Enoxaparin Sodium [Lovenox] 40 mg pe SC DAILY@0600 07/08/17 Fentanyl [Duragesic] 50 mcg TRANSDERM. Q3D@1000 07/08/17 Gabapentin [Neurontin] 300 mg PO BIDCM 07/08/17 Lactobacillus Acidophilus 1 each PO DAILY 07/08/17 [Acidophilus Lactobacilli] Magnesium Hydroxide [Milk Of 30 ml PO DAILY PRN PRN 07/08/17 Magnesia] Ondansetron [Zofran] 4 mg IV Q6H PRN PRN 07/08/17 ProMETHAzine [Phenergan] 25 mg PO Q4H PRN PRN 07/08/17 Current Medications Generic Name Dose Route Start Last Admin Trade Name Freq PRN Reason Stop Dose Admin Acetaminophen 1,000 mg 07/08/17 17:25 08/10/17 17:33 Tylenol PO 1,000 mg Q8H PRN PRN Administration MILD PAIN (1-3/10) Bisacodyl 10 mg 07/08/17 14:07 Dulcolax RECTAL QHS PRN PRN Constipation Calcium Carbonate 500 mg 07/09/17 08:00 08/14/17 08:10 Os-Guido 500 PO 500 mg DAILYCM [facility] Administration Cholecalciferol 5,000 unit 07/09/17 08:00 08/14/17 08:10 Vitamin D PO 5,000 unit DAILY@0800 [facility] Administration Dexamethasone 3 mg 07/09/17 08:00 08/14/17 08:10 Decadron PO 3 mg DAILY@0800 [facility] Administration Diazepam 5 mg 07/08/17 14:07 07/12/17 14:58 Valium PO 5 mg Q6H PRN PRN Administration SPASMS Enoxaparin Sodium 30 mg 08/03/17 06:00 08/14/17 05:37 Lovenox SC 30 mg DAILY@0600 [facility] Administration Famotidine 20 mg 07/08/17 18:00 08/14/17 17:06 Pepcid PO 20 mg BID [facility] Administration Fentanyl 50 mcg 07/09/17 12:00 08/14/17 08:11 Duragesic TRANSDERM. 50 mcg Q3D@1000 [facility] Administration Gabapentin 300 mg 07/08/17 17:00 08/14/17 17:06 Neurontin PO 300 mg BIDCM [facility] Administration Heparin Sodium (Beef Lung) 500 unit 07/08/17 14:40 Heparin 500 Unit/5 Ml (100/Ml) IV UD PRN HEPARIN FLUSH Hydromorphone HCl 8 mg 08/02/17 18:00 08/14/17 21:21 Dilaudid PO 8 mg Q4H PRN Administration SEVERE PAIN (6-10/10) Sodium Chloride 250 mls @ 15 mls/hr 07/24/17 14:39 08/14/17 21:19 IV 15 mls/hr .[id number] PRN Administration SALINE FLUSH Vancomycin HCl 500 mg in 100 mls @ 100 mls/hr 08/12/17 22:00 08/14/17 21:16 IV 100 mls/hr Q12H [facility] Administration Lactobacillus Acidophilus 1 tablet 07/09/17 06:00 08/14/17 05:35 Acidophilus PO 1 tablet DAILY [facility] Administration Levetiracetam 750 mg 07/08/17 18:00 08/14/17 17:06 Keppra PO 750 mg BID [facility] Administration Lisinopril 5 mg 07/09/17 06:00 08/14/17 05:35 Zestril PO 5 mg DAILY [facility] Administration Magnesium Hydroxide 30 ml 07/08/17 14:07 Milk Of Magnesia PO DAILY PRN PRN Constipation Multivitamins 1 tablet 07/09/17 08:00 08/14/17 08:10 Multivitamin PO 1 tablet DAILY@0800 [facility] Administration Nutritional Formula 1 packet 07/09/17 08:00 08/14/17 17:06 Rodger - [place] Flavor PO 1 packet BIDCM [facility] Administration Nutritional Formula (Lactose Free) 120 ml 07/08/17 17:00 08/14/17 21:13 Ensure Enlive PO 120 ml 4X/DAY [facility] Administration Ondansetron HCl 8 mg 07/08/17 14:07 Zofran PO Q8H PRN PRN NAUSEA Ondansetron HCl 4 mg 07/08/17 14:16 07/14/17 19:53 Zofran IV 4 mg Q6H PRN PRN Administration NAUSEA Polyethylene Glycol 17 gm 07/09/17 06:00 08/14/17 05:38 Miralax PO Not Given DAILY [facility] Potassium Chloride 20 meq 07/24/17 08:00 08/14/17 08:12 K-Dur PO 20 meq DAILYCM [facility] Administration Promethazine HCl 25 mg 07/08/17 14:07 Phenergan PO Q4H PRN PRN NAUSEA/VOMITING Senna/Docusate Sodium 2 tablet 07/08/17 18:00 08/14/17 17:06 Senokot-S, Riddhi-Colace PO Not Given BID [facility] Sodium Chloride 10 - 20 ml 07/08/17 14:40 08/14/17 21:21 IV 20 ml UD PRN Administration PICC FLUSH Problem List (Last Updated 06/28/17 @ 11:52 by Israel Anne DO) Glioblastoma multiforme (Chronic) Vital Signs Temp Pulse Resp BP Pulse Ox 98.2 F 61 18 93/58 L 97 08/14/17 16:00 08/14/17 16:00 08/14/17 16:00 08/14/17 16:00 08/14/17 16:00 Oxygen Delivery Method Room Air Weight: 84.9 kg Body Mass Index (BMI) 27.6 Sodium 138 mmol/L (136-145) 08/06/17 11:05 Potassium 4.3 mmol/L (3.5-5.1) 08/06/17 11:05 Chloride 101 mmol/L (98-107) 08/06/17 11:05 Carbon Dioxide 30.0 mmol/L (21.0-32.0) 08/06/17 11:05 Anion Gap 7 (5-15) 08/06/17 11:05 BUN 24 mg/dL (7-18) H 08/06/17 11:05 Creatinine 0.72 mg/dL (0.55-1.02) 08/06/17 11:05 Est GFR (MDRD) Af Amer 106 mL/min (>60) 08/06/17 11:05 Est GFR (MDRD) Non-Af 88 mL/min (>60) 08/06/17 11:05 BUN/Creatinine Ratio 33.1 RATIO (10-20) H 08/06/17 11:05 Glucose 104 mg/dL (70-110) 08/06/17 11:05 Vancomycin Trough 16.3 ug/mL (5.0-15.0) H 08/12/17 09:34 Assessment/Plan: 1) Pain APAP for mild pain, hydromorphone for severe pain, fentanyl patch, gabapentin , diazepam for spasm. Continue to monitor prn medication use, daily pain scores. 2) Oncology Dexamethasone daily. Continue to monitor BGT, for neurologic symptoms. 3) ID Vancomycin for skin/soft tissue infection. Continue to monitor s/s infection. 4) BP Lisinopril. BP within goal range, no recent labs. Continue to monitor renal function, electrolytes, BP. 5) Seizure Levetiracetam twice daily. Continue to monitor for seizure. 6) GI Famotidine, Lactobacillus, prn ondansetron, prn promethazine. Continue to monitor prn medication use, s/s GI distress. 7) Nutrition Multivitamin, Rodger, Ensure, Ca, D, KCl. Continue to monitor electrolytes. 8) DVT PPx Enoxaparin daily. Continue to monitor s/s bleeding/clot. Psychotropic Medications: None Unnecessary Medications: None Bowel Regimen: 9) Senna/s, PEG, prn bisacodyl, MgOH prn. Continue to monitor prn medication use , for constipation/diarrhea. Date of Note:: 08/15/17 - Provider Comments Provider responsibility: Provider responsible to enter orders to implement recommendations <Regis Kirk Chi - Last Filed: 08/15/17 08:00> Progress Note - Pharmacy Subjective: [] Objective: Allergies adhesive tape Adverse Reaction (Verified 06/24/17 09:09) VERY THIN STEROID SKIN WILL REMOVE SKIN IF ON TOO LONG Home Medications Medication Instructions Recorded Cholecalciferol (Vitamin D3) 5,000 unit PO DAILY 03/02/17 [Vitamin D3] Dexamethasone 3 mg PO DAILY 03/02/17 Famotidine [Pepcid] 20 mg PO BID 03/02/17 Multivitamin [Daily Multiple 1 each PO DAILY 03/02/17 Vitamin] Ondansetron [Zofran] 8 mg PO Q8H PRN PRN 03/02/17 Levetiracetam 750 mg PO BID 05/03/17 Lisinopril 1 tablet PO DAILY 05/03/17 Acetaminophen [Tylenol Tablet] 650 mg PO Q6H PRN PRN tablet 06/28/17 Diazepam [Valium] 5 mg PO 4X/DAY PRN PRN #30 tab 06/28/17 HydromorphONE [Dilaudid] 2 - 4 mg PO 4X/DAY PRN PRN #50 tab 06/28/17 Bisacodyl 10 mg RECTAL QHS PRN PRN 07/08/17 Calcium (Elemental) [Os-Guido 500] 500 mg PO DAILY 07/08/17 Ceftriaxone [Rocephin] 1 gm IV Q12 07/08/17 Docusate Sodium [Colace] 100 mg PO BID 07/08/17 Enoxaparin Sodium [Lovenox] 40 mg pe SC DAILY@0600 07/08/17 Fentanyl [Duragesic] 50 mcg TRANSDERM. Q3D@1000 07/08/17 Gabapentin [Neurontin] 300 mg PO BIDCM 07/08/17 Lactobacillus Acidophilus 1 each PO DAILY 07/08/17 [Acidophilus Lactobacilli] Magnesium Hydroxide [Milk Of 30 ml PO DAILY PRN PRN 07/08/17 Magnesia] Ondansetron [Zofran] 4 mg IV Q6H PRN PRN 07/08/17 ProMETHAzine [Phenergan] 25 mg PO Q4H PRN PRN 07/08/17 Current Medications Generic Name Dose Route Start Last Admin Trade Name Freq PRN Reason Stop Dose Admin Acetaminophen 1,000 mg 07/08/17 17:25 08/10/17 17:33 Tylenol PO 1,000 mg Q8H PRN PRN Administration MILD PAIN (1-3/10) Bisacodyl 10 mg 07/08/17 14:07 Dulcolax RECTAL QHS PRN PRN Constipation Calcium Carbonate 500 mg 07/09/17 08:00 08/14/17 08:10 Os-Guido 500 PO 500 mg DAILYCM [facility] Administration Cholecalciferol 5,000 unit 07/09/17 08:00 08/14/17 08:10 Vitamin D PO 5,000 unit DAILY@0800 [facility] Administration Dexamethasone 3 mg 07/09/17 08:00 08/14/17 08:10 Decadron PO 3 mg DAILY@0800 [facility] Administration Diazepam 5 mg 07/08/17 14:07 07/12/17 14:58 Valium PO 5 mg Q6H PRN PRN Administration SPASMS Enoxaparin Sodium 30 mg 08/03/17 06:00 08/15/17 05:42 Lovenox SC 30 mg DAILY@0600 [facility] Administration Famotidine 20 mg 07/08/17 18:00 08/15/17 05:43 Pepcid PO 20 mg BID [facility] Administration Fentanyl 50 mcg 07/09/17 12:00 08/14/17 08:11 Duragesic TRANSDERM. 50 mcg Q3D@1000 [facility] Administration Gabapentin 300 mg 07/08/17 17:00 08/14/17 17:06 [facility] Heparin Sodium (Beef Lung) 500 unit 07/08/17 14:40 Heparin 500 Unit/5 Ml (100/Ml) IV UD PRN HEPARIN FLUSH Hydromorphone HCl 8 mg 08/02/17 18:00 08/14/17 21:21 Dilaudid PO 8 mg Q4H PRN Administration SEVERE PAIN (6-10/10) Sodium Chloride 250 mls @ 15 mls/hr 07/24/17 14:39 08/14/17 21:19 IV 15 mls/hr .[id number] PRN Administration SALINE FLUSH Vancomycin HCl 500 mg in 100 mls @ 100 mls/hr 08/12/17 22:00 08/14/17 21:16 IV 100 mls/hr Q12H [facility] Administration Lactobacillus Acidophilus 1 tablet 07/09/17 06:00 08/15/17 05:43 Acidophilus PO 1 tablet DAILY [facility] Administration Levetiracetam 750 mg 07/08/17 18:00 08/15/17 05:43 Keppra PO 750 mg BID [facility] Administration Lisinopril 5 mg 07/09/17 06:00 08/15/17 05:43 Zestril PO 5 mg DAILY [facility] Administration Magnesium Hydroxide 30 ml 07/08/17 14:07 Milk Of Magnesia PO DAILY PRN PRN Constipation Multivitamins 1 tablet 07/09/17 08:00 08/14/17 08:10 Multivitamin PO 1 tablet DAILY@0800 [facility] Administration Nutritional Formula 1 packet 07/09/17 08:00 08/14/17 17:06 Rodger - [place] Flavor PO 1 packet BIDCM [facility] Administration Nutritional Formula (Lactose Free) 120 ml 07/08/17 17:00 08/15/17 05:41 Ensure Enlive PO 120 ml 4X/DAY [facility] Administration Ondansetron HCl 8 mg 07/08/17 14:07 Zofran PO Q8H PRN PRN NAUSEA Ondansetron HCl 4 mg 07/08/17 14:16 07/14/17 19:53 Zofran IV 4 mg Q6H PRN PRN Administration NAUSEA Polyethylene Glycol 17 gm 07/09/17 06:00 08/15/17 05:42 Miralax PO Not Given DAILY [facility] Potassium Chloride 20 meq 07/24/17 08:00 08/14/17 08:12 K-Dur PO 20 meq DAILYCM [facility] Administration Promethazine HCl 25 mg 07/08/17 14:07 Phenergan PO Q4H PRN PRN NAUSEA/VOMITING Senna/Docusate Sodium 2 tablet 07/08/17 18:00 08/15/17 05:42 Senokot-S, Riddhi-Colace PO Not Given BID [facility] Sodium Chloride 10 - 20 ml 07/08/17 14:40 08/14/17 21:21 IV 20 ml UD PRN Administration PICC FLUSH Problem List (Last Updated 06/28/17 @ 11:52 by Israel Anne DO) Glioblastoma multiforme (Chronic) Vital Signs Temp Pulse Resp BP Pulse Ox 98.2 F 61 18 93/58 L 97 08/14/17 16:00 08/14/17 16:00 08/14/17 16:00 08/14/17 16:00 08/14/17 16:00 Oxygen Delivery Method Room Air Weight: 84.9 kg Body Mass Index (BMI) 27.6 Sodium 138 mmol/L (136-145) 08/06/17 11:05 Potassium 4.3 mmol/L (3.5-5.1) 08/06/17 11:05 Chloride 101 mmol/L (98-107) 08/06/17 11:05 Carbon Dioxide 30.0 mmol/L (21.0-32.0) 08/06/17 11:05 Anion Gap 7 (5-15) 08/06/17 11:05 BUN 24 mg/dL (7-18) H 08/06/17 11:05 Creatinine 0.72 mg/dL (0.55-1.02) 08/06/17 11:05 Est GFR (MDRD) Af Amer 106 mL/min (>60) 08/06/17 11:05 Est GFR (MDRD) Non-Af 88 mL/min (>60) 08/06/17 11:05 BUN/Creatinine Ratio 33.1 RATIO (10-20) H 08/06/17 11:05 Glucose 104 mg/dL (70-110) 08/06/17 11:05 Vancomycin Trough 16.3 ug/mL (5.0-15.0) H 08/12/17 09:34 Assessment/Plan: Psychotropic Medications: Unnecessary Medications: Bowel Regimen: - Provider Comments Provider responsibility: Provider responsible to enter orders to implement recommendations Provider Comments to Recommendations by Pharmacy: Agree
[2017-08-15] MEDS: Enoxaparin 30 MG/0.3 ML Syringe SC (05:42)
[2017-08-15] MEDS: Famotidine 20 MG Tablet PO ×2 (05:43→18:43)
[2017-08-15] MEDS: Lisinopril 5 MG Tablet PO (05:43)
[2017-08-15] MEDS: levETIRAcetam 750 MG Tablet PO ×2 (05:43→18:43)
[2017-08-15 09:01] LABS: Absolute Lymphocyte Count 0.74 X10^3/ul (0.83-4.51); Absolute Neutrophil Count 2.9 X10^3/uL (2.0-7.7); Basophil# 0.02 X10^3/uL; Basophil% 0.5 % (0-1); Hematocrit 36.2 % (37-47); Lymphocyte # 0.74 X10^3/ul (4.0); Lymphocyte % 17.9 % (19-41); Mean Corp Hgb Conc 30.4 g/gl (32-36); Mean Corpuscular Hgb 29.3 pg (27.0-32.0); Mean Corpuscular Volume 96.5 fL (81-99); Mean Platelet Vol. 9.6 fl (6.2-12.0); Monocyte# 0.42 X10^3/uL; Monocyte% 10.1 % (0-10); Neutrophil # 2.94 X10^3/uL (2.7-7.7); Platelet Count 208 K/mm3 (150-450); RBC Distribution Width CV 14.7 % (11.6-14.6); RBC Distribution Width SD 52.5 fl (35.1-43.9); Red Blood Count 3.75 M/mm3 (4.2-5.4); White Blood Count 4.1 K/mm3 (4.4-11.0)
[2017-08-15 09:02] LABS: POSITIVE COUNT NO; POSITIVE DIFFERENTIAL NO; POSITIVE MORPHOLOGY NO
[2017-08-15 09:23] LABS: Vancomycin, Trough Level 9.8 ug/mL (5.0-15.0)
[2017-08-15 09:31] LABS: Anion Gap 9 (5-15); BUN 18 mg/dL (7-18); BUN/Creat Ratio 23.4 RATIO (10-20); Calcium,Total 8.8 mg/dL (8.5-10.1); Chloride 101 mmol/L (98-107); Creatinine, Serum 0.77 mg/dL (0.55-1.02); EST Glomerular Filtration Rate 82 mL/min (>60); Est Glom Filt Rate - Afr Amer 99 mL/min (>60); Estimated Creatinine Clearance 79.36 ml/min; Glucose 105 mg/dL (70-110); Potassium 3.7 mmol/L (3.5-5.1); Sodium Level 139 mmol/L (136-145)
[2017-08-15] MEDS: Gabapentin 300 MG Capsule PO ×2 (09:35→18:44)
[2017-08-15] MEDS: Multivitamins,Therapeutic Tablet 1 TABLET PO (09:35)
[2017-08-15] MEDS: Calcium (Elemental) 500 MG Tablet PO (09:35)
[2017-08-15 10:00] VITALS: PULSE 70; RESP 18; O2SAT 97
--- NOTE | 2017-08-15 12:59 | CASEMGMT ---
Insurance Clinical information faxed. Pending continued stay approval at this time. Auth#[id number] Kendra GIVENS, RRTS
--- NOTE | 2017-08-15 13:38 | NURSING ---
SPOKE WITH DR. BEDOLLA REGARDING PT'S ZYVOXX PRESCRIPTION, HE SAID HE WILL CALL IT IN TO [facility] IN [place]. JOZEF BUSTAMANTE NOTIFIED.
[2017-08-15 15:31] VITALS: BP 112/74; PULSE 70; RESP 16; TEMP 36.9; O2SAT 95
--- NOTE | 2017-08-15 15:36 | CASEMGMT ---
Brief interview for mental status (BIMS) and resident mood interview (PHQ-9) completed on this day. BIMS score 06/01. PHQ-9 score
--- NOTE | 2017-08-15 15:36 | CASEMGMT ---
Social Work Dr. Moya sending script for PO Zyvox to [facility] in [place] with the intentions of checking coverage for resident. Telephone call to [facility]. Per the pharmacist resident has no copay for Zyvox. Dr. Moya notified and plans for resident to discharge home on PO medication and to discontinue the I.V treatment. Nursing staff aware. Collaborating with resident and resident daughter. Discharge date has been set for 08/17/17. Resident plans to discharge home alone with daughter and family to check in with resident daily. Resident family plans to assist with dressing changes as well. Resident to have half-way to follow in the home per nursing recommendation. Resident is agreeable to recommendation and requesting for home health services to be set up through [facility] This social services director making referral for skilled services. Order to be completed. Proposed discharge date: 08/17/17 PLAN: Discharge home with home health services. Kendra GIVENS, TATY
[2017-08-15] MEDS: 0.9% NaCl PICC Flush IV (21:51)
--- NOTE | 2017-08-15 22:04 | PCM.DC ---
- Discharge Diagnoses Current Active Problems: Current Active and Chronic Problems (Last Updated 06/28/17 @ 11:52 by Israel Anne DO) Glioblastoma multiforme (Chronic) You will use the following diet at home:: No restrictions, Regular Your food should be the consistency of: Regular Your liquids should be the consistency of: Regular/Thin Discharge Activity: Return to Normal Activity, Use Walker Weight Bearing Status: Weight bearing as tolerated Call your doctor if you observe: Fever of 101 or Higher, Inability to urinate, Inability to have a bowel movement, Shortness of breath, Chest pain, Uncontrolled pain Allergies/Adverse Reactions: Allergies adhesive tape Adverse Reaction (Verified 06/24/17 09:09) VERY THIN STEROID SKIN WILL REMOVE SKIN IF ON TOO LONG Medications to take at Discharge Cholecalciferol (Vitamin D3) [Vitamin D3] 5,000 unit PO DAILY 03/02/17 Dexamethasone 3 mg PO DAILY 03/02/17 Famotidine [Pepcid] 20 mg PO BID 03/02/17 Multivitamin [Daily Multiple Vitamin] 1 each PO DAILY 03/02/17 Ondansetron [Zofran] 8 mg PO Q8H PRN PRN 03/02/17 Levetiracetam 750 mg PO BID 05/03/17 Lisinopril 1 tablet PO DAILY 05/03/17 Acetaminophen [Tylenol Tablet] 650 mg PO Q6H PRN PRN tablet 06/28/17 Calcium (Elemental) [Os-Guido 500] 500 mg PO DAILY 07/08/17 Gabapentin [Neurontin] 300 mg PO BIDCM 07/08/17 Lactobacillus Acidophilus [Acidophilus Lactobacilli] 1 each PO DAILY 07/08/17 Magnesium Hydroxide [Milk Of Magnesia] 30 ml PO DAILY PRN PRN 07/08/17 ProMETHAzine [Phenergan] 25 mg PO Q4H PRN PRN 07/08/17 Bisacodyl 10 mg RECTAL QHS PRN PRN #30 supp.rect 08/15/17 Diazepam [Valium] 5 mg PO 4X/DAY PRN PRN #30 tab 08/15/17 Fentanyl [Duragesic] 50 mcg TRANSDERM. Q3D@1000 #5 patch 08/15/17 HydromorphONE [Dilaudid] 2 - 4 mg PO 4X/DAY PRN PRN #50 tab 01/29/18 Nutritional Supplement [Rodger - ORANGE FLAVOR] 1 packet PO BIDCM #60 packet 08/15/17 Polyethylene Glycol 3350 [Miralax] 17 gm PO DAILY #30 packet 08/15/17 Potassium Chloride [K-Dur] 20 meq PO DAILYCM #30 tab 08/15/17 The following prescriptions were given: Bisacodyl 10 mg RECTAL QHS PRN PRN #30 supp.rect PRN Reason: Constipation Diazepam [Valium] 5 mg PO 4X/DAY PRN PRN #30 tab PRN Reason: Spasms Fentanyl [Duragesic] 50 mcg TRANSDERM. Q3D@1000 #5 patch HydromorphONE [Dilaudid] 2 - 4 mg PO 4X/DAY PRN PRN #50 tab PRN Reason: Pain Polyethylene Glycol 3350 [Miralax] 17 gm PO DAILY #30 packet Potassium Chloride [K-Dur] 20 meq PO DAILYCM #30 tab Nutritional Supplement [Rodger - ORANGE FLAVOR] 1 packet PO BIDCM #60 packet Primary Care Physician: Loc Arizmendi DO [Primary Care Provider] - Please follow up with your Primary Care Physician in: 1 week. Please Follow Up With: Wound Center When: 1 week. Proposed Discharge Date: 08/17/17
--- NOTE | 2017-08-15 22:07 | PCM.DC.SUM ---
Discharge Date and Diagnosis Date of Admission: 08/05/17 Date of Discharge: 08/17/17 - Secondary Discharge Diagnosis Chronic Problems (Last Updated 06/28/17 @ 11:52 by Israel Anne DO) Glioblastoma multiforme (Chronic) Hospital Course and Treatment Imaging Results: 07/08/17 13:08 Diet: Regular Diet Labs (Last 48 Hours) 08/15/17 08/15/17 08/15/17 08:35 08:35 08:35 WBC 4.1 L RBC 3.75 L Hgb 11.0 L Hct 36.2 L MCV 96.5 MCH 29.3 MCHC 30.4 L RDW 14.7 H RDW Differential 52.5 H Plt Count 208 MPV 9.6 Immature Gran % (Auto) 0.500 Neut % (Auto) 71.0 H Lymph % (Auto) 17.9 L [place] % (Auto) 10.1 H Eos % (Auto) 0.0 Baso % (Auto) 0.5 Absolute Neuts (auto) 2.9 Absolute Lymphs (auto) 0.74 L Total Counted Not Reportable Sodium 139 Potassium 3.7 Chloride 101 Carbon Dioxide 29.0 Anion Gap 9 BUN 18 Creatinine 0.77 Estim Creat Clear Calc 79.36 Est GFR (MDRD) Af Amer 99 Est GFR (MDRD) Non-Af 82 BUN/Creatinine Ratio 23.4 H Glucose 105 Calcium 8.8 Vancomycin Trough 9.8 Consultations 07/08/17 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 Surgical preparation left posterior leg with incision and drainage and excisional debridement involving underlying tendon nonhealing ulcer (12 cm2). 2. Surgical preparation left inferolateral leg with incision and drainage and excisional debridement involving underlying muscle nonhealing ulcer (18 cm2). 3. Surgical preparation left superolateral leg with incision and drainage and excisional debridement involving underlying muscle nonhealing ulcer (24 cm2). 4. Surgical preparation left anterior lower leg with incision and drainage and excisional debridement involving underlying tendon and muscle nonhealing ulcer (30 cm2). 5. Surgical preparation right lateral leg with incision and drainage and excisional debridement involving underlying fascia nonhealing ulcer (15.75 cm2). 6. Surgical preparation right anterosuperior leg with incision and drainage and excisional debridement involving underlying fascia nonhealing ulcer (6.25 cm2). 7. Surgical preparation right lower leg/anterior ankle with incision and drainage and excisional debridement involving underlying periosteum nonhealing ulcer (16 cm2). 8. Surgical preparation right medial ankle with incision and drainage and excisional debridement involving underlying muscle nonhealing ulcer (8 cm2). Procedures: None Summary of Care Provided: The patient is a 57 year old Female with below past medical history significant for glioblastoma multiforme hospitalized for chronic lower extremity ulcers, underwent incision and debridement with Dr. Moya, then skin graft surgery with Dr. Moya, admitted to TCU for rehabilitation, strengthening, intravenous antibiotics, wound care. Will discharge home alone with family for support. Home health ordered. Discharge Diet: No Restrictions Discharge Activity: Return to Normal Activity, Use Walker Weight Bearing Status: Weight bearing as tolerated Call your doctor if you observe: Fever of 101 or Higher, Inability to urinate, Inability to have a bowel movement, Shortness of breath, Chest pain, Uncontrolled pain Home Medications: Medications to take at Discharge Cholecalciferol (Vitamin D3) [Vitamin D3] 5,000 unit PO DAILY 03/02/17 Dexamethasone 3 mg PO DAILY 03/02/17 Famotidine [Pepcid] 20 mg PO BID 03/02/17 Multivitamin [Daily Multiple Vitamin] 1 each PO DAILY 03/02/17 Ondansetron [Zofran] 8 mg PO Q8H PRN PRN 03/02/17 Levetiracetam 750 mg PO BID 05/03/17 Lisinopril 1 tablet PO DAILY 05/03/17 Acetaminophen [Tylenol Tablet] 650 mg PO Q6H PRN PRN tablet 06/28/17 Calcium (Elemental) [Os-Guido 500] 500 mg PO DAILY 07/08/17 Gabapentin [Neurontin] 300 mg PO BIDCM 07/08/17 Lactobacillus Acidophilus [Acidophilus Lactobacilli] 1 each PO DAILY 07/08/17 Magnesium Hydroxide [Milk Of Magnesia] 30 ml PO DAILY PRN PRN 07/08/17 ProMETHAzine [Phenergan] 25 mg PO Q4H PRN PRN 07/08/17 Bisacodyl 10 mg RECTAL QHS PRN PRN #30 supp.rect 08/15/17 Diazepam [Valium] 5 mg PO 4X/DAY PRN PRN #30 tab 08/15/17 Fentanyl [Duragesic] 50 mcg TRANSDERM. Q3D@1000 #5 patch 08/15/17 HydromorphONE [Dilaudid] 2 - 4 mg PO 4X/DAY PRN PRN #50 tab 08/15/17 Nutritional Supplement [Rodger - ORANGE FLAVOR] 1 packet PO BIDCM #60 packet 08/15/17 Polyethylene Glycol 3350 [Miralax] 17 gm PO DAILY #30 packet 08/15/17 Potassium Chloride [K-Dur] 20 meq PO DAILYCM #30 tab 08/15/17 Following Prescrptions Were Given to Patient: Bisacodyl 10 mg RECTAL QHS PRN PRN #30 supp.rect PRN Reason: Constipation Diazepam [Valium] 5 mg PO 4X/DAY PRN PRN #30 tab PRN Reason: Spasms Fentanyl [Duragesic] 50 mcg TRANSDERM. Q3D@1000 #5 patch HydromorphONE [Dilaudid] 2 - 4 mg PO 4X/DAY PRN PRN #50 tab PRN Reason: Pain Polyethylene Glycol 3350 [Miralax] 17 gm PO DAILY #30 packet Potassium Chloride [K-Dur] 20 meq PO DAILYCM #30 tab Nutritional Supplement [Ordger - ORANGE FLAVOR] 1 packet PO BIDCM #60 packet Primary Care Physician: Loc Arizmendi DO [Primary Care Provider] - Please follow up with your Primary Care Physician in: 1 week. Please Follow Up With: Wound Center When: 1 week. Disposition: Home with Home Health Minutes spent on discharge:: 35 Patient Condition:: Stable Meaningful Use Info Meaningful Use Diagnoses (Choose all that apply): None applicable
--- NOTE | 2017-08-15 22:10 | DS.PCM_ITS ---
Discharge Date and Diagnosis Date of Admission: 08/05/17 Date of Discharge: 08/17/17 - Secondary Discharge Diagnosis Chronic Problems (Last Updated 06/28/17 @ 11:52 by Israel Anne DO) Glioblastoma multiforme (Chronic) Hospital Course and Treatment Imaging Results: 07/08/17 13:08 Diet: Regular Diet Labs (Last 48 Hours) 08/15/17 08/15/17 08/15/17 08:35 08:35 08:35 WBC 4.1 L RBC 3.75 L Hgb 11.0 L Hct 36.2 L MCV 96.5 MCH 29.3 MCHC 30.4 L RDW 14.7 H RDW Differential 52.5 H Plt Count 208 MPV 9.6 Immature Gran % (Auto) 0.500 Neut % (Auto) 71.0 H Lymph % (Auto) 17.9 L Hamblen % (Auto) 10.1 H Eos % (Auto) 0.0 Baso % (Auto) 0.5 Absolute Neuts (auto) 2.9 Absolute Lymphs (auto) 0.74 L Total Counted Not Reportable Sodium 139 Potassium 3.7 Chloride 101 Carbon Dioxide 29.0 Anion Gap 9 BUN 18 Creatinine 0.77 Estim Creat Clear Calc 79.36 Est GFR (MDRD) Af Amer 99 Est GFR (MDRD) Non-Af 82 BUN/Creatinine Ratio 23.4 H Glucose 105 Calcium 8.8 Vancomycin Trough 9.8 Consultations 07/08/17 Consult: Onc/Wound/blood bank laboratory technologist Routine Comment: Reason for Consult:: ULCERS BLE'S Comments:: SLABY ON CASE Operations: - - 06/24 17 - 1. Surgical preparation left posterior leg with incision and drainage and excisional debridement involving underlying tendon nonhealing ulcer (12 cm2). 2. Surgical preparation left inferolateral leg with incision and drainage and excisional debridement involving underlying muscle nonhealing ulcer (18 cm2). 3. Surgical preparation left superolateral leg with incision and drainage and excisional debridement involving underlying muscle nonhealing ulcer (24 cm2). 4. Surgical preparation left anterior lower leg with incision and drainage and excisional debridement involving underlying tendon and muscle nonhealing ulcer (30 cm2). 5. Surgical preparation right lateral leg with incision and drainage and excisional debridement involving underlying fascia nonhealing ulcer (15.75 cm2). 6. Surgical preparation right anterosuperior leg with incision and drainage and excisional debridement involving underlying fascia nonhealing ulcer (6.25 cm2). 7. Surgical preparation right lower leg/anterior ankle with incision and drainage and excisional debridement involving underlying periosteum nonhealing ulcer (16 cm2) . 8. Surgical preparation right medial ankle with incision and drainage and excisional debridement involving underlying muscle nonhealing ulcer (8 cm2). Procedures: None Summary of Care Provided: The patient is a 57 year old Female with below past medical history significant for glioblastoma multiforme hospitalized for chronic lower extremity ulcers, underwent incision and debridement with Dr. Moya, then skin graft surgery with Dr. Moya, admitted to TCU for rehabilitation, strengthening, intravenous antibiotics, wound care. Will discharge home alone with family for support. Home health ordered. Discharge Diet: No Restrictions Discharge Activity: Return to Normal Activity, Use Walker Weight Bearing Status: Weight bearing as tolerated Call your doctor if you observe: Fever of 101 or Higher, Inability to urinate, Inability to have a bowel movement, Shortness of breath, Chest pain, Uncontrolled pain Home Medications: Medications to take at Discharge Cholecalciferol (Vitamin D3) [Vitamin D3] 5,000 unit PO DAILY 03/02/17 Dexamethasone 3 mg PO DAILY 03/02/17 Famotidine [Pepcid] 20 mg PO BID 03/02/17 Multivitamin [Daily Multiple Vitamin] 1 each PO DAILY 03/02/17 Ondansetron [Zofran] 8 mg PO Q8H PRN PRN 03/02/17 Levetiracetam 750 mg PO BID 05/03/17 Lisinopril 1 tablet PO DAILY 05/03/17 Acetaminophen [Tylenol Tablet] 650 mg PO Q6H PRN PRN tablet 06/28/17 Calcium (Elemental) [Os-Guido 500] 500 mg PO DAILY 07/08/17 Gabapentin [Neurontin] 300 mg PO BIDCM 07/08/17 Lactobacillus Acidophilus [Acidophilus Lactobacilli] 1 each PO DAILY 07/08/17 Magnesium Hydroxide [Milk Of Magnesia] 30 ml PO DAILY PRN PRN 07/08/17 ProMETHAzine [Phenergan] 25 mg PO Q4H PRN PRN 07/08/17 Bisacodyl 10 mg RECTAL QHS PRN PRN #30 supp.rect 08/15/17 Diazepam [Valium] 5 mg PO 4X/DAY PRN PRN #30 tab 08/15/17 Fentanyl [Duragesic] 50 mcg TRANSDERM. Q3D@1000 #5 patch 08/15/17 HydromorphONE [Dilaudid] 2 - 4 mg PO 4X/DAY PRN PRN #50 tab 08/15/17 Nutritional Supplement [Rodger - ORANGE FLAVOR] 1 packet PO BIDCM #60 packet Polyethylene Glycol 3350 [Miralax] 17 gm PO DAILY #30 packet 08/15/17 Potassium Chloride [K-Dur] 20 meq PO DAILYCM #30 tab 08/15/17 Following Prescrptions Were Given to Patient: Bisacodyl 10 mg RECTAL QHS PRN PRN #30 supp.rect PRN Reason: Constipation Diazepam [Valium] 5 mg PO 4X/DAY PRN PRN #30 tab PRN Reason: Spasms Fentanyl [Duragesic] 50 mcg TRANSDERM. Q3D@1000 #5 patch HydromorphONE [Dilaudid] 2 - 4 mg PO 4X/DAY PRN PRN #50 tab PRN Reason: Pain Polyethylene Glycol 3350 [Miralax] 17 gm PO DAILY #30 packet Potassium Chloride [K-Dur] 20 meq PO DAILYCM #30 tab Nutritional Supplement [Rodger - ORANGE FLAVOR] 1 packet PO BIDCM #60 packet Primary Care Physician: Loc Arizmendi DO [Primary Care Provider] - Please follow up with your Primary Care Physician in: 1 week. Please Follow Up With: Wound Center When: 1 week. Disposition: Home with Home Health Minutes spent on discharge:: 35 Patient Condition:: Stable Meaningful Use Info Meaningful Use Diagnoses (Choose all that apply): None applicable
--- NOTE | 2017-08-15 22:11 | HHNOTE_ITS ---
Home Health Note - Plan Overview of reason of hospitalization: The patient is a 57 year old Female with below past medical history significant for glioblastoma multiforme hospitalized for chronic lower extremity ulcers, underwent incision and debridement with Dr. Moya, then skin graft surgery with Dr. Moya, admitted to TCU for rehabilitation, strengthening, intravenous antibiotics, wound care. Will discharge home alone with family for support. Home health ordered. Problems: Patient was seen for (Last Updated 06/28/17 @ 11:52 by Israel Anne DO) Glioblastoma multiforme (Chronic) Complete List of Medical Problems (Last Updated 06/28/17 @ 11:52 by Israel Anne DO) Glioblastoma multiforme (Chronic) Ulcers of both lower legs (Acute) Wound, open, lower limb with complication (Acute) Infected open wound (Acute) Brain tumor (Acute) MRSA (methicillin resistant staph aureus) culture positive (Acute) Debility, unspecified (Acute) - Requirements and Reasons Disciplines Needed/Ordered: Longterm Reason for Disciplines: Disease Specific Monitoring/education, Medication Management/Knowledge Deficit, Wound Care Related To: Change in Medical Treatment Plan, Physical Impairments, Fall Risk Patient is unable to leave the home: Without Aid of Supportive Devices (crutches , cane, wheelchair, walker), Without the assistance of another person
[2017-08-16] MEDS: levETIRAcetam 750 MG Tablet PO ×2 (05:00→18:11)
[2017-08-16] MEDS: Famotidine 20 MG Tablet PO ×2 (05:00→18:11)
[2017-08-16] MEDS: Lisinopril 5 MG Tablet PO (05:01)
[2017-08-16] MEDS: Enoxaparin 30 MG/0.3 ML Syringe SC (05:02)
[2017-08-16] MEDS: Calcium (Elemental) 500 MG Tablet PO (08:50)
[2017-08-16] MEDS: Gabapentin 300 MG Capsule PO ×2 (08:50→18:11)
[2017-08-16] MEDS: Multivitamins,Therapeutic Tablet 1 TABLET PO (08:50)
--- NOTE | 2017-08-16 08:59 | CASEMGMT ---
Insurance Continued stayed approved with next update due on 08/19/17 with last cover day being 08/20/17. Auth#[id number] Kendra GIVENS, LAMP ASSEMBLER
--- NOTE | 2017-08-16 09:11 | CASEMGMT ---
Social Work Telephone call from [facility] ([facility]), Charmaine. Charmaine reporting to be unable to accept resident due to resident insurance. Spoke with resident in room. Resident is now requesting for this social studies teacher to make a referral to [facility]. Support given. Telephone call to [facility], this social studies teacher making referral for correction. [facility] voicing to be able to accept resident and that the insurance would not be a problem. Order and clinical information faxed. Proposed discharge date: 08/17/17 PLAN: Discharge home alone with home health services and family to assist as needed. Kendra GIVENS, PHYSICIAN RELATIONS SPECIALIST
[2017-08-16] MEDS: Alteplase 2 MG/2 ML Vial IV (09:48)
[2017-08-16] MEDS: 0.9% NaCl PICC Flush IV (10:36)
--- NOTE | 2017-08-16 14:52 | NURSING ---
wound photo: right anterior/lat lower leg
--- NOTE | 2017-08-16 14:53 | NURSING ---
wound photo: right lateral lower leg
--- NOTE | 2017-08-16 14:53 | NURSING ---
wound photo: right medial lower leg
--- NOTE | 2017-08-16 14:53 | NURSING ---
wound photo: left anterior lower leg
--- NOTE | 2017-08-16 14:54 | NURSING ---
wound photo: left lateral lower leg
--- NOTE | 2017-08-16 14:54 | NURSING ---
wound photo: left posterior lower leg
--- NOTE | 2017-08-16 14:55 | NURSING ---
wound photo: abdomen
[2017-08-16 15:42] VITALS: BP 117/75; PULSE 63; RESP 18; TEMP 37.2; O2SAT 97
[2017-08-16] MEDS: Senna/Docusate Sodium 1 Tablet 2 TABLET PO (18:10)
[2017-08-17] MEDS: Acetaminophen 500 MG Tablet 1000 MG PO (04:44)
[2017-08-17] MEDS: Enoxaparin 30 MG/0.3 ML Syringe SC (04:44)
[2017-08-17] MEDS: levETIRAcetam 750 MG Tablet PO (04:44)
[2017-08-17] MEDS: Famotidine 20 MG Tablet PO (04:45)
[2017-08-17] MEDS: Senna/Docusate Sodium 1 Tablet 2 TABLET PO (04:45)
[2017-08-17] MEDS: Lisinopril 5 MG Tablet PO (04:46)
--- NOTE | 2017-08-17 07:57 | PCM.PN.SRG ---
Subjective: Postop #15 Patient is resting comfortably. She is anxious to go home. - Physical Exam General: Alert, Oriented x3 HEENT: PERRLA, EOMI Neck: Supple Lungs: Clear to auscultation Cardiovascular: Regular rate, Regular Rhythm Skin: Ulcer/ Wound - Bilateral leg ulcers are skin grafted. The left anterior lower leg graft shows the most compromise about 75%. The other grafts show good adherence with graft take ranging from 80-100%. Silver dressings were applied. Less drainage noted., Incision - abdominal incision is dry and intact. No clinical evidence of hematoma. Neurological: Cranial nerves II-XII grossly intact Psych/Mental Status: Normal Affect, Appropriate Vital Signs Temp Pulse Resp BP Pulse Ox 98.9 F 63 18 117/75 97 08/16/17 15:42 08/16/17 15:42 08/16/17 15:42 08/16/17 15:42 08/16/17 15:42 Oxygen Delivery Method Room Air Weight: 187 lb 2.759 oz Body Mass Index (BMI) 27.6 Intake and Output for Last 24 Hours 08/15/17 08/16/17 08/17/17 23:59 23:59 23:59 Intake Total 1290 / 1290 1240 / 1240 Balance 1290 / 1290 1240 / 1240 Assessment/Plan 1. Nonhealing ulcer left posterior leg. 2. Nonhealing ulcer left lateral leg. 3. Nonhealing ulcer left anterior lower leg. 4. Nonhealing ulcer right lateral leg. 5. Nonhealing ulcer right anterior superior leg. 6. Nonhealing ulcer right lower leg/medial ankle. 7. Brain tumor - receiving chemotherapy. 8. s/p excisional debridement nonhealing ulcer left posterior leg with STSG reconstruction from lower anterior abdominal wall (9 cm2) and excisional debridement nonhealing ulcer left lateral leg with STSG reconstruction from lower anterior abdominal wall (30.5 cm2) and excisional debridement nonhealing ulcer left anterior lower leg with STSG reconstruction from lower anterior abdominal wall (27 cm2) and excisional debridement nonhealing ulcer right lateral leg with STSG reconstruction from lower anterior abdominal wall (14.25 cm2) and excisional debridement nonhealing ulcer right anterior superior leg with STSG reconstruction from lower anterior abdominal wall (7 cm2) and excisional debridement nonhealing ulcer right lower leg/medial ankle with STSG reconstruction from lower anterior abdominal wall (24.5 cm2). 9. Early compromise to skin grafts bilateral leg ulcers. The Zyvox has been approved for home so she can be discharged. Home Health to assist with Silver dressing changes to her leg grafts daily. Continue abdominal binder. Followup at Wound Center on Tuesday08/22/17 at 1015 am. Less drainage was noted from the grafts. Will redress the graft sites with a Silver dressing which will absorb the drainage and help with the healing process. With the Silver dressing change today, there is already evidence of skin graft compromise to the healing skin grafts because of her immunocompromised state so the HBO treatments are necessary. Continue nutritional supplementation with protein to help the healing process. Wrote scripts for Dilaudid for pain (30 tabs), Valium for spasm (20 tabs), Neurontin 300mg twice a day, and Duragesic Patch for pain 25mcg (5 patches). Her dressing changes have been much more tolerable with the added medication. Will wean as tolerated as an outpatient. Plan is to heal the ulcers with skin grafting in preparation for further chemotherapy.
[2017-08-17] MEDS: Multivitamins,Therapeutic Tablet 1 TABLET PO (09:14)
[2017-08-17] MEDS: Calcium (Elemental) 500 MG Tablet PO (09:15)
[2017-08-17] MEDS: Gabapentin 300 MG Capsule PO (09:15)
[2017-08-17] MEDS: 0.9% NaCl PICC Flush IV (10:03)
[2017-08-17 10:12] LABS: Vancomycin, Trough Level 11.6 ug/mL (5.0-15.0)
--- NOTE | 2017-08-17 10:16 | NURSING ---
wasted patch, flushed down toilet witnessed by ELIF fowler
--- NOTE | 2017-08-17 15:20 | CASEMGMT ---
Insurance Notified insurance of resident discharge date of today, 08/17/17 to home alone with home health services. Auth#[id number] Kendra GIVENS, REGISTERED NURSE PRACTITIONER
== END 2017-08-17 14:10 | disposition home health service (06) | DRG 949 ==
PROVIDERS: Surgery; Admitting Provider Family Medicine Geriatric Medicine; Family Provider Student in an Organized Health Care Education/Training Program; PCP Student in an Organized Health Care Education/Training Program; Visit Provider Family Medicine Geriatric Medicine
DX: Z48.817 Encounter for surgical aftercare following surgery on the skin and subcutaneous tissue (principal); C71.9 Malignant neoplasm of brain, unspecified; D89.9 Disorder involving the immune mechanism, unspecified; L97.315 Non-pressure chronic ulcer of right ankle with muscle involvement without evidence of necrosis; L97.815 Non-pressure chronic ulcer of other part of right lower leg with muscle involvement without evidence of necrosis; L97.825 Non-pressure chronic ulcer of other part of left lower leg with muscle involvement without evidence of necrosis; Z23 Encounter for immunization; G40.909 Epilepsy, unspecified, not intractable, without status epilepticus; I10 Essential (primary) hypertension; K21.9 Gastro-esophageal reflux disease without esophagitis; F41.9 Anxiety disorder, unspecified; Z79.899 Other long term (current) drug therapy; Z86.14 Personal history of Methicillin resistant Staphylococcus aureus infection; L08.9 Local infection of the skin and subcutaneous tissue, unspecified
CPT/HCPCS: 36415; 80048; 80202; 84134; 85025; 85027; 85652; 86140; 92507; 92523; 92526; 97110; 97116; 97162; 97166; 97530; 97535; 97802; J2997; J7030; J7050; 90670; 90686; A4216; J2405

== ENCOUNTER 2017-09-12 11:00 | Outpatient (RCR) | payer BC, SELFPAY ==
[2017-08-22 10:34] VITALS: BP 108/70; PULSE 62; RESP 16; TEMP 36.3
--- NOTE | 2017-08-22 20:29 | PCM.WC.PN ---
Type of Wound Date of Service: 08/22/17 Chief Complaint: Nonhealing ulcers bilateral legs s/p skin grafting with some compromise. History of Wound: Surgery 08/02/17 - 1. Excisional debridement nonhealing ulcer left posterior leg with STSG reconstruction from lower anterior abdominal wall (9 cm2). 2. Excisional debridement nonhealing ulcer left lateral leg with STSG reconstruction from lower anterior abdominal wall (30.5 cm2). 3. Excisional debridement nonhealing ulcer left anterior lower leg with STSG reconstruction from lower anterior abdominal wall (27 cm2). 4. Excisional debridement nonhealing ulcer right lateral leg with STSG reconstruction from lower anterior abdominal wall (14.25 cm2). 5. Excisional debridement nonhealing ulcer right anterior superior leg with STSG reconstruction from lower anterior abdominal wall (7 cm2). 6. Excisional debridement nonhealing ulcer right lower leg/medial ankle with STSG reconstruction from lower anterior abdominal wall (24.5 cm2). Wound care - Silver with NICKY wrap for compression. Operative culture - Enterococcus faecium. She was treated with Vancomycin and was discharged on Zyvox. Prealbumin from 07/30/17 was 22.5. She takes nutritional supplementation with protein to help the healing process. Today she denies fever. Her appetite is good. She states the wound care is more tolerable with the addition of Duragesic Patch, Valium, Dilaudid, and Neurontin. Progress of Wound: Recent skin graft surgery 08/02/17 with some compromise. - Physical Exam Vital Signs Temp Pulse Resp BP 97.3 F L 62 16 108/70 08/22/17 10:34 08/22/17 10:34 08/22/17 10:34 08/22/17 10:34 HEENT: TM's Clear - no bleeding noted or fluid behind the TM. Debridement Note Post-Debridement Measurements/Treatment WC - Nurse 2 - General Ulcer CM Notes Start: 08/22/17 10:34 Freq: Status: Active Protocol: Activity Type Activity Date Activity User E-Sign Co-Sign Detail Recorded Client Recorded Date Recorded By Document 08/22/17 11:54 [email or web address] 08/22/17 11:57 RANDY 08/22/17 11:54 Wound Center Nurse 2 #10 R Med Ankle -Time 11:54 -Correct Patient Yes -Correct Side, Site, Position Yes -Correct Procedure Yes -Procedure Performed Yes -Type of Procedure Debridement -Clinical Debridement Selective -Post Debridement Size (cm) - Length 4.0 -Post Debridement Size (cm) - Width 4.5 -Post Debridement Size (cm) - Depth 0.4 -Total Square Cm 18.00 -Wound/Ulcer Outcome Not Healed -Ulcer Cleansing Rinsed/ Irrigated with Saline -Foul Odor after Cleansing No -Bioengineered Tissue No -Cetacaine [place] No -Bleeding Controlled with Pressure -Treatment Response Procedure Tolerated Well #6 R Sup [place] -Time 11:55 -Correct Patient Yes -Correct Side, Site, Position Yes -Correct Procedure Yes -Procedure Performed Yes -Type of Procedure Debridement -Clinical Debridement Selective -Post Debridement Size (cm) - Length 2.5 -Post Debridement Size (cm) - Width 2.5 -Post Debridement Size (cm) - Depth 0.5 -Total Square Cm 6.25 -Wound/Ulcer Outcome Not Healed -Ulcer Cleansing Rinsed/ Irrigated with Saline -Foul Odor after Cleansing No -Bioengineered Tissue No -Cetacaine [place] No -Bleeding Controlled with Pressure -Treatment Response Procedure Tolerated Well #5 R Lat Leg -Time 11:55 -Correct Patient Yes -Correct Side, Site, Position Yes -Correct Procedure Yes -Procedure Performed Yes -Type of Procedure Debridement -Clinical Debridement Selective -Post Debridement Size (cm) - Length 3.5 -Post Debridement Size (cm) - Width 2.7 -Post Debridement Size (cm) - Depth 0.5 -Total Square Cm 9.45 -Wound/Ulcer Outcome Not Healed -Ulcer Cleansing Rinsed/ Irrigated with Saline -Foul Odor after Cleansing No -Bioengineered Tissue No -Cetacaine [place] No -Bleeding Controlled with Pressure -Treatment Response Procedure Tolerated Well #4 L Lower [place] -Time 11:55 -Correct Patient Yes -Correct Side, Site, Position Yes -Correct Procedure Yes -Procedure Performed Yes -Type of Procedure Debridement -Clinical Debridement Selective -Post Debridement Size (cm) - Length 5.8 -Post Debridement Size (cm) - Width 5.3 -Post Debridement Size (cm) - Depth 0.4 -Total Square Cm 30.74 -Wound/Ulcer Outcome Not Healed -Ulcer Cleansing Rinsed/ Irrigated with Saline -Foul Odor after Cleansing No -Bioengineered Tissue No -Cetacaine [place] No -Bleeding Controlled with Pressure -Treatment Response Procedure Tolerated Well #3 L Lat Sup -Time 11:56 -Correct Patient Yes -Correct Side, Site, Position Yes -Correct Procedure Yes -Procedure Performed Yes -Type of Procedure Debridement -Clinical Debridement Selective -Post Debridement Size (cm) - Length 6.3 -Post Debridement Size (cm) - Width 4.5 -Post Debridement Size (cm) - Depth 0.4 -Total Square Cm 28.35 -Wound/Ulcer Outcome Not Healed -Ulcer Cleansing Rinsed/ Irrigated with Saline -Foul Odor after Cleansing No -Bioengineered Tissue No -Cetacaine [place] No -Bleeding Controlled with Pressure -Treatment Response Procedure Tolerated Well #1 L Post Leg -Time 11:56 -Correct Patient Yes -Correct Side, Site, Position Yes -Correct Procedure Yes -Procedure Performed Yes -Type of Procedure Debridement -Clinical Debridement Selective -Post Debridement Size (cm) - Length 2.8 -Post Debridement Size (cm) - Width 2.6 -Post Debridement Size (cm) - Depth 0.3 -Total Square Cm 7.28 -Wound/Ulcer Outcome Not Healed -Ulcer Cleansing Rinsed/ Irrigated with Saline -Foul Odor after Cleansing No -Bioengineered Tissue No -Cetacaine [place] No -Bleeding Controlled with Pressure -Treatment Response Procedure Tolerated Well Pain Scale: 0-10 Numeric Is Patient Pain Free? Yes Wound debrided: #1 Left posterior leg skin graft. Laterality: Left Wound Grade/Stage: 2. Type of Debridement: Selective debridement Anesthesia Used: 4% Lidocaine Solution Depth: - - some loose scabbing around the skin graft. Percentage of wound debrided: 20 Instrument Used: 3mm curette Tissue Removed: some loose scabbing around the skin graft. Severity: Limited To Skin Breakdown - some loose scabbing around the skin graft. Amount of bleeding with debridement: Mild Bleeding Controlled with: Pressure Patient tolerated procedure well - Additional Wound Wound debrided: #3 Left lateral leg skin graft. Laterality: Left Wound Grade/Stage: 2. Type of Debridement: Selective debridement Anesthesia Used: 4% Lidocaine Solution Depth: - - some loose scabbing around the skin graft. Percentage of wound debrided: 20 Instrument Used: 3mm curette Tissue Removed: some loose scabbing around the skin graft. Severity: Limited To Skin Breakdown - some loose scabbing around the skin graft. Amount of bleeding with debridement: Mild Bleeding Controlled with: Pressure Patient tolerated procedure: Patient tolerated procedure well - Additional Wound Wound debrided: #4 Left anterior lower leg skin graft. Laterality: Left Wound Grade/Stage: 2. Type of Debridement: Selective debridement Anesthesia Used: 4% Lidocaine Solution Depth: - - some loose scabbing around the skin graft. Percentage of wound debrided: 60 Instrument Used: 5mm curette Tissue Removed: some loose scabbing around the skin graft. Severity: Limited To Skin Breakdown - some loose scabbing around the skin graft. Amount of bleeding with debridement: Mild Bleeding Controlled with: Pressure Patient tolerated procedure: Patient tolerated procedure well - Additional Wound Wound debrided: #5 Right lateral leg skin graft. Laterality: Right Wound Grade/Stage: 2. Type of Debridement: Selective debridement Anesthesia Used: 4% Lidocaine Solution Depth: - - some loose scabbing around the skin graft. Percentage of wound debrided: 20 Instrument Used: 3mm curette Tissue Removed: some loose scabbing around the skin graft. Severity: Limited To Skin Breakdown - some loose scabbing around the skin graft. Amount of bleeding with debridement: Mild Bleeding Controlled with: Pressure Patient tolerated procedure: Patient tolerated procedure well - Additional Wound Wound debrided: #6 Right anterior superior leg skin graft. Laterality: Right Wound Grade/Stage: 2. Type of Debridement: Selective debridement Anesthesia Used: 4% Lidocaine Solution Depth: - - some loose scabbing around the skin graft. Percentage of wound debrided: 20 Instrument Used: 3mm curette Tissue Removed: some loose scabbing around the skin graft. Severity: Limited To Skin Breakdown - some loose scabbing around the skin graft. Amount of bleeding with debridement: Mild Bleeding Controlled with: Pressure Patient tolerated procedure: Patient tolerated procedure well - Additional Wound Wound debrided: #10 Right lower leg/medial ankle skin graft. Laterality: Right Wound Grade/Stage: 2. Type of Debridement: Selective debridement Anesthesia Used: 4% Lidocaine Solution Depth: - - some loose scabbing around the skin graft. Percentage of wound debrided: 20 Instrument Used: 3mm curette Tissue Removed: some loose scabbing around the skin graft. Severity: Limited To Skin Breakdown - some loose scabbing around the skin graft. Amount of bleeding with debridement: Mild Bleeding Controlled with: Pressure Patient tolerated procedure: Patient tolerated procedure well Assessment/Plan Assessment: 1. Nonhealing ulcer left posterior leg. 2. Nonhealing ulcer left lateral leg. 3. Nonhealing ulcer left anterior lower leg. 4. Nonhealing ulcer right lateral leg. 5. Nonhealing ulcer right anterior superior leg. 6. Nonhealing ulcer right lower leg/medial ankle. 7. Brain tumor - receiving chemotherapy, on hold. 8. s/p excisional debridement nonhealing ulcer left posterior leg with STSG reconstruction from lower anterior abdominal wall (9 cm2) and excisional debridement nonhealing ulcer left lateral leg with STSG reconstruction from lower anterior abdominal wall (30.5 cm2) and excisional debridement nonhealing ulcer left anterior lower leg with STSG reconstruction from lower anterior abdominal wall (27 cm2) and excisional debridement nonhealing ulcer right lateral leg with STSG reconstruction from lower anterior abdominal wall (14.25 cm2) and excisional debridement nonhealing ulcer right anterior superior leg with STSG reconstruction from lower anterior abdominal wall (7 cm2) and excisional debridement nonhealing ulcer right lower leg/medial ankle with STSG reconstruction from lower anterior abdominal wall (24.5 cm2). 9. Early compromise to skin grafts bilateral leg ulcers with the biggest compromise to the left anterior lower leg graft. Plan: Continue Silvercel daily to the grafts with Surepress compression. Can apply Adaptic to the left lower leg because some tendon is seen with the graft compromise. Her abdominal wall donor incision is healing satisfactory. She is continuing the Zyvox for the Enterococcus faecium. With her compromised skin grafts, she needs HBO treatments to help salvage the compromise. Awaiting approval. More surgical clips from the skin grafts were removed today without difficulty. Chemotherapy continues to be on hold because of the skin graft compromise. Followup one week. Her Prealbumin from 07/30/17 was 22.5. She takes nutritional supplementation with protein to help the healing process.
[2017-08-29 11:19] VITALS: BP 105/61; PULSE 64; RESP 16; TEMP 34.8
--- NOTE | 2017-08-29 16:44 | PN.PCM_ITS ---
Type of Wound Date of Service: 08/29/17 Chief Complaint: Nonhealing ulcers bilateral legs s/p skin grafting with some compromise. History of Wound: Surgery 08/02/17 - 1. Excisional debridement nonhealing ulcer left posterior leg with STSG reconstruction from lower anterior abdominal wall ( 9 cm2). 2. Excisional debridement nonhealing ulcer left lateral leg with STSG reconstruction from lower anterior abdominal wall (30.5 cm2). 3. Excisional debridement nonhealing ulcer left anterior lower leg with STSG reconstruction from lower anterior abdominal wall (27 cm2). 4. Excisional debridement nonhealing ulcer right lateral leg with STSG reconstruction from lower anterior abdominal wall (14.25 cm2). 5. Excisional debridement nonhealing ulcer right anterior superior leg with STSG reconstruction from lower anterior abdominal wall (7 cm2). 6. Excisional debridement nonhealing ulcer right lower leg/ medial ankle with STSG reconstruction from lower anterior abdominal wall (24.5 cm2). Wound care - Silver with NICKY wrap for compression. Operative culture - Enterococcus faecium. She was treated with Vancomycin and was discharged on Zyvox. Prealbumin from 07/30/17 was 22.5. She takes nutritional supplementation with protein to help the healing process. Today she denies fever. Her appetite is good. She states the wound care is more tolerable with the addition of Duragesic Patch, Valium, Dilaudid, and Neurontin. With her skin graft compromise, she would benefit from HBO treatments. Awaiting approval. Progress of Wound: Recent skin graft surgery 08/02/17 with some compromise. - Physical Exam Vital Signs Temp Pulse Resp BP 94.6 F L 64 16 105/61 08/29/17 11:19 08/29/17 11:19 08/29/17 11:19 08/29/17 11:19 Wound Measurements and Assessment WC - Nurse 1 - General Ulcer Measurement Start: 08/22/17 10:34 Freq: Status: Active Protocol: Activity Type Activity Date Activity User E-Sign Co-Sign Detail Recorded Client Recorded Date Recorded By Document 08/29/17 11:19 DV [id number] 08/29/17 11:50 DV 08/29/17 11:19 Wound Center Nurse 1 [Ulcer Assessment Protocol: PONCHO.WD.LOC] #10 R Med Ankle -Combined with other wound No -Current Size (cm) - Length 4.0 -Current Size (cm) - Width 3.8 -Current Size (cm) - Depth 0.4 -Total Square Cm 15.20 -Photo Taken No -Epithelialization None Present -Tunneling No -Undermining/Tunneling No -Circular Undermining No -Classification - Thickness Full Thickness without Exposed Support Structure -Exudate Amt Large (67-100%) -Exudate Type Yellow/Green -Wound Margin Distinct, Outline Attached -Granulation Amt None Present (0 %) -Granulation Quality N/A -Slough/Fibrin Yes -Necrosis Amt Large (67-100%) -Necrotic Tissue Type Adherent Slough -Structure Exposed N/A -Texture (Riddhi-wound Skin Appearance) Assessed Localized Edema -Moisture (Riddhi-wound Skin Appearance Assessed ) Weeping -Color (Riddhi-wound Skin Appearance) Assessed Erythema -Temperature (Riddhi-wound Skin No Abnormality Appearance) (Pt Warm) -Ulcer Cleansing Rinsed/ Irrigated with Saline -Foul Odor after Cleansing No -Anesthetic Used 5% Lidocaine Gel #6 R Sup [place] -Combined with other wound No -Current Size (cm) - Length 2.0 -Current Size (cm) - Width 2.0 -Current Size (cm) - Depth 0.6 -Total Square Cm 4.00 -Photo Taken No -Epithelialization None Present -Tunneling No -Undermining/Tunneling No -Circular Undermining No -Classification - Thickness Full Thickness without Exposed Support Structure -Exudate Amt Medium (34-66%) -Exudate Type Serous -Wound Margin Distinct, Outline Attached -Granulation Amt None Present (0 %) -Granulation Quality N/A -Slough/Fibrin Yes -Necrosis Amt Large (67-100%) -Necrotic Tissue Type Adherent Slough -Structure Exposed N/A None/Limited to Skin Breakdown -Texture (Riddhi-wound Skin Appearance) Assessed Localized Edema Scarring -Moisture (Riddhi-wound Skin Appearance Assessed ) Weeping -Color (Riddhi-wound Skin Appearance) Assessed Erythema -Temperature (Riddhi-wound Skin No Abnormality Appearance) (Pt Warm) -Tenderness on Palpation (Riddhi-wound No Skin Appearance) -Ulcer Cleansing Rinsed/ Irrigated with Saline -Foul Odor after Cleansing No -Anesthetic Used 5% Lidocaine Gel #5 R Lat Leg -Combined with other wound No -Current Size (cm) - Length 3.3 -Current Size (cm) - Width 2.3 -Current Size (cm) - Depth 0.4 -Total Square Cm 7.59 -Photo Taken No -Epithelialization None Present -Tunneling No -Undermining/Tunneling No -Circular Undermining No -Classification - Thickness Full Thickness without Exposed Support Structure -Exudate Amt Large (67-100%) -Exudate Type Sanguineous -Wound Margin Distinct, Outline Attached -Granulation Amt None Present (0 %) -Granulation Quality N/A -Slough/Fibrin Yes -Necrosis Amt Large (67-100%) -Necrotic Tissue Type Adherent Slough -Structure Exposed None/Limited to Skin Breakdown -Texture (Riddhi-wound Skin Appearance) Assessed Localized Edema -Moisture (Riddhi-wound Skin Appearance Assessed ) Weeping -Color (Riddhi-wound Skin Appearance) Assessed Erythema -Temperature (Riddhi-wound Skin No Abnormality Appearance) (Pt Warm) -Tenderness on Palpation (Riddhi-wound No Skin Appearance) -Ulcer Cleansing Rinsed/ Irrigated with Saline -Foul Odor after Cleansing No -Anesthetic Used 5% Lidocaine Gel #4 L Lower [place] -Combined with other wound No -Current Size (cm) - Length 6.0 -Current Size (cm) - Width 5.0 -Current Size (cm) - Depth 0.6 -Total Square Cm 30.00 -Photo Taken No -Epithelialization None Present -Tunneling No -Undermining/Tunneling No -Circular Undermining No -Classification - Thickness Full Thickness without Exposed Support Structure -Exudate Amt Large (67-100%) -Exudate Type Sanguineous -Wound Margin Distinct, Outline Attached -Granulation Amt None Present (0 %) -Granulation Quality N/A -Slough/Fibrin Yes -Necrosis Amt Large (67-100%) -Necrotic Tissue Type Adherent Slough -Structure Exposed None/Limited to Skin Breakdown -Texture (Riddhi-wound Skin Appearance) Assessed -Moisture (Riddhi-wound Skin Appearance Assessed ) Weeping -Color (Riddhi-wound Skin Appearance) Assessed Erythema -Temperature (Riddhi-wound Skin No Abnormality Appearance) (Pt Warm) -Tenderness on Palpation (Riddhi-wound Yes Skin Appearance) -Ulcer Cleansing Rinsed/ Irrigated with Saline -Foul Odor after Cleansing No -Anesthetic Used 5% Lidocaine Gel #3 L Lat Sup -Combined with other wound No -Current Size (cm) - Length 6.5 -Current Size (cm) - Width 3.5 -Current Size (cm) - Depth 0.2 -Total Square Cm 22.75 -Photo Taken No -Epithelialization None Present -Tunneling No -Undermining/Tunneling No -Circular Undermining No -Classification - Thickness Full Thickness without Exposed Support Structure -Exudate Amt Large (67-100%) -Exudate Type Purulent -Wound Margin Distinct, Outline Attached -Granulation Amt None Present (0 %) -Granulation Quality N/A -Slough/Fibrin No -Necrosis Amt Small (1-33%) -Necrotic Tissue Type Adherent Slough -Structure Exposed None/Limited to Skin Breakdown -Texture (Riddhi-wound Skin Appearance) Assessed Localized Edema Scarring -Moisture (Riddhi-wound Skin Appearance Assessed ) Weeping -Color (Riddhi-wound Skin Appearance) Assessed Erythema -Temperature (Riddhi-wound Skin No Abnormality Appearance) (Pt Warm) -Ulcer Cleansing Rinsed/ Irrigated with Saline -Foul Odor after Cleansing No -Anesthetic Used 5% Lidocaine Gel #1 L Post Leg -Combined with other wound No -Current Size (cm) - Length 2.0 -Current Size (cm) - Width 3.5 -Current Size (cm) - Depth 0.2 -Total Square Cm 7.00 -Photo Taken No -Epithelialization None Present -Undermining/Tunneling No -Circular Undermining No -Classification - Thickness Full Thickness without Exposed Support Structure -Exudate Amt None Present (0 %) -Exudate Type Purulent -Wound Margin Distinct, Outline Attached -Granulation Amt None Present (0 %) -Necrosis Amt Large (67-100%) -Necrotic Tissue Type Adherent Slough -Structure Exposed None/Limited to Skin Breakdown -Texture (Riddhi-wound Skin Appearance) Assessed -Moisture (Riddhi-wound Skin Appearance Assessed ) -Color (Riddhi-wound Skin Appearance) Assessed -Temperature (Riddhi-wound Skin No Abnormality Appearance) (Pt Warm) -Tenderness on Palpation (Riddhi-wound Yes Skin Appearance) -Ulcer Cleansing Rinsed/ Irrigated with Saline -Foul Odor after Cleansing No -Anesthetic Used 5% Lidocaine Gel [Edema Assessment] -Lower Limb Edema Present Yes -Right Calf (cm) 36.7 -Right Ankle (cm) 21.0 -Left Calf (cm) 35.8 -Left Ankle (cm) 21.0 WC - Nurse 2 - General Ulcer CM Notes Start: 08/22/17 10:34 Freq: Status: Active Protocol: Activity Type Activity Date Activity User E-Sign Co-Sign Detail Recorded Client Recorded Date Recorded By Document 08/29/17 12:06 DV [id number] 08/29/17 12:11 DV 08/29/17 12:06 Wound Center Nurse 2 [Procedure/Treatment] #10 R Med Ankle -Time 12:07 -Correct Patient Yes -Correct Side, Site, Position Yes -Correct Procedure Yes -Procedure Performed Yes -Type of Procedure Debridement -Clinical Debridement Selective -Post Debridement Size (cm) - Length 4.0 -Post Debridement Size (cm) - Width 3.9 -Post Debridement Size (cm) - Depth 0.4 -Total Square Cm 15.60 -Wound/Ulcer Outcome Not Healed -Ulcer Cleansing Rinsed/ Irrigated with Saline -Foul Odor after Cleansing No -Bioengineered Tissue No -Bleeding Controlled with Pressure -Treatment Response Procedure Tolerated Well #6 R Sup [place] -Time 12:08 -Correct Patient Yes -Correct Side, Site, Position Yes -Correct Procedure Yes -Procedure Performed Yes -Type of Procedure Debridement -Clinical Debridement Selective -Post Debridement Size (cm) - Length 2.0 -Post Debridement Size (cm) - Width 2.0 -Post Debridement Size (cm) - Depth 0.6 -Total Square Cm 4.00 -Wound/Ulcer Outcome Not Healed -Ulcer Cleansing Rinsed/ Irrigated with Saline -Foul Odor after Cleansing No -Bioengineered Tissue No -Bleeding Controlled with Pressure -Treatment Response Procedure Tolerated Well #5 R Lat Leg -Time 12:08 -Correct Patient Yes -Correct Side, Site, Position Yes -Correct Procedure Yes -Procedure Performed Yes -Type of Procedure Debridement -Clinical Debridement Selective -Post Debridement Size (cm) - Length 3.4 -Post Debridement Size (cm) - Width 2.4 -Post Debridement Size (cm) - Depth 0.4 -Total Square Cm 8.16 -Wound/Ulcer Outcome Not Healed -Ulcer Cleansing Rinsed/ Irrigated with Saline -Foul Odor after Cleansing No -Bioengineered Tissue No -Bleeding Controlled with Pressure -Treatment Response Procedure Tolerated Well #4 L Lower [place] -Time 12:09 -Correct Patient Yes -Correct Side, Site, Position Yes -Correct Procedure Yes -Procedure Performed Yes -Type of Procedure Debridement -Clinical Debridement Selective -Post Debridement Size (cm) - Length 6.0 -Post Debridement Size (cm) - Width 5.0 -Post Debridement Size (cm) - Depth 0.6 -Total Square Cm 30.00 -Wound/Ulcer Outcome Not Healed -Ulcer Cleansing Rinsed/ Irrigated with Saline -Foul Odor after Cleansing No -Bioengineered Tissue No -Bleeding Controlled with Pressure -Treatment Response Procedure Tolerated Well #3 L Lat Sup -Time 12:09 -Correct Patient Yes -Correct Side, Site, Position Yes -Correct Procedure Yes -Procedure Performed Yes -Type of Procedure Debridement -Clinical Debridement Selective -Post Debridement Size (cm) - Length 6.5 -Post Debridement Size (cm) - Width 3.6 -Post Debridement Size (cm) - Depth 0.2 -Total Square Cm 23.40 -Wound/Ulcer Outcome Not Healed -Ulcer Cleansing Rinsed/ Irrigated with Saline -Foul Odor after Cleansing No -Bioengineered Tissue No -Bleeding Controlled with Pressure -Treatment Response Procedure Tolerated Well #1 L Post Leg -Time 12:10 -Correct Patient Yes -Correct Side, Site, Position Yes -Correct Procedure Yes -Procedure Performed Yes -Type of Procedure Debridement -Clinical Debridement Selective -Post Debridement Size (cm) - Length 2.0 -Post Debridement Size (cm) - Width 3.5 -Post Debridement Size (cm) - Depth 0.2 -Total Square Cm 7.00 -Wound/Ulcer Outcome Not Healed -Ulcer Cleansing Rinsed/ Irrigated with Saline -Foul Odor after Cleansing No -Bioengineered Tissue No -Bleeding Controlled with Pressure -Treatment Response Procedure Tolerated Well [See Physician Procedure note for Specifics] Pain Scale: 0-10 Numeric [Pain] -Is Patient Pain Free? Yes Debridement Note Post-Debridement Measurements/Treatment WC - Nurse 2 - General Ulcer CM Notes Start: 08/22/17 10:34 Freq: Status: Active Protocol: Activity Type Activity Date Activity User E-Sign Co-Sign Detail Recorded Client Recorded Date Recorded By Document 08/22/17 11:54 RANDY [id number] 08/22/17 11:57 JF Document 08/29/17 12:06 JOSSELINE [id number] 08/29/17 12:11 DV 08/22/17 08/29/17 11:54 12:06 Wound Center Nurse 2 #10 R Med Ankle -Time 11:54 12:07 -Correct Patient Yes Yes -Correct Side, Site, Position Yes Yes -Correct Procedure Yes Yes -Procedure Performed Yes Yes -Type of Procedure Debridement Debridement -Clinical Debridement Selective Selective -Post Debridement Size (cm) - Length 4.0 4.0 -Post Debridement Size (cm) - Width 4.5 3.9 -Post Debridement Size (cm) - Depth 0.4 0.4 -Total Square Cm 18.00 15.60 -Wound/Ulcer Outcome Not Healed Not Healed -Ulcer Cleansing Rinsed/ Rinsed/ Irrigated with Irrigated with Saline Saline -Foul Odor after Cleansing No No -Bioengineered Tissue No No -Cetacaine [place] No -Bleeding Controlled with Pressure Pressure -Treatment Response Procedure Procedure Tolerated Well Tolerated Well #6 R Sup [place] -Time 11:55 12:08 -Correct Patient Yes Yes -Correct Side, Site, Position Yes Yes -Correct Procedure Yes Yes -Procedure Performed Yes Yes -Type of Procedure Debridement Debridement -Clinical Debridement Selective Selective -Post Debridement Size (cm) - Length 2.5 2.0 -Post Debridement Size (cm) - Width 2.5 2.0 -Post Debridement Size (cm) - Depth 0.5 0.6 -Total Square Cm 6.25 4.00 -Wound/Ulcer Outcome Not Healed Not Healed -Ulcer Cleansing Rinsed/ Rinsed/ Irrigated with Irrigated with Saline Saline -Foul Odor after Cleansing No No -Bioengineered Tissue No No -Cetacaine [place] No -Bleeding Controlled with Pressure Pressure -Treatment Response Procedure Procedure Tolerated Well Tolerated Well #5 R Lat Leg -Time 11:55 12:08 -Correct Patient Yes Yes -Correct Side, Site, Position Yes Yes -Correct Procedure Yes Yes -Procedure Performed Yes Yes -Type of Procedure Debridement Debridement -Clinical Debridement Selective Selective -Post Debridement Size (cm) - Length 3.5 3.4 -Post Debridement Size (cm) - Width 2.7 2.4 -Post Debridement Size (cm) - Depth 0.5 0.4 -Total Square Cm 9.45 8.16 -Wound/Ulcer Outcome Not Healed Not Healed -Ulcer Cleansing Rinsed/ Rinsed/ Irrigated with Irrigated with Saline Saline -Foul Odor after Cleansing No No -Bioengineered Tissue No No -Cetacaine [place] No -Bleeding Controlled with Pressure Pressure -Treatment Response Procedure Procedure Tolerated Well Tolerated Well #4 L [place] -Time 11:55 12:09 -Correct Patient Yes Yes -Correct Side, Site, Position Yes Yes -Correct Procedure Yes Yes -Procedure Performed Yes Yes -Type of Procedure Debridement Debridement -Clinical Debridement Selective Selective -Post Debridement Size (cm) - Length 5.8 6.0 -Post Debridement Size (cm) - Width 5.3 5.0 -Post Debridement Size (cm) - Depth 0.4 0.6 -Total Square Cm 30.74 30.00 -Wound/Ulcer Outcome Not Healed Not Healed -Ulcer Cleansing Rinsed/ Rinsed/ Irrigated with Irrigated with Saline Saline -Foul Odor after Cleansing No No -Bioengineered Tissue No No -Cetacaine [place] No -Bleeding Controlled with Pressure Pressure -Treatment Response Procedure Procedure Tolerated Well Tolerated Well #3 L Lat Sup -Time 11:56 12:09 -Correct Patient Yes Yes -Correct Side, Site, Position Yes Yes -Correct Procedure Yes Yes -Procedure Performed Yes Yes -Type of Procedure Debridement Debridement -Clinical Debridement Selective Selective -Post Debridement Size (cm) - Length 6.3 6.5 -Post Debridement Size (cm) - Width 4.5 3.6 -Post Debridement Size (cm) - Depth 0.4 0.2 -Total Square Cm 28.35 23.40 -Wound/Ulcer Outcome Not Healed Not Healed -Ulcer Cleansing Rinsed/ Rinsed/ Irrigated with Irrigated with Saline Saline -Foul Odor after Cleansing No No -Bioengineered Tissue No No -Cetacaine [place] No -Bleeding Controlled with Pressure Pressure -Treatment Response Procedure Procedure Tolerated Well Tolerated Well #1 L Post Leg -Time 11:56 12:10 -Correct Patient Yes Yes -Correct Side, Site, Position Yes Yes -Correct Procedure Yes Yes -Procedure Performed Yes Yes -Type of Procedure Debridement Debridement -Clinical Debridement Selective Selective -Post Debridement Size (cm) - Length 2.8 2.0 -Post Debridement Size (cm) - Width 2.6 3.5 -Post Debridement Size (cm) - Depth 0.3 0.2 -Total Square Cm 7.28 7.00 -Wound/Ulcer Outcome Not Healed Not Healed -Ulcer Cleansing Rinsed/ Rinsed/ Irrigated with Irrigated with Saline Saline -Foul Odor after Cleansing No No -Bioengineered Tissue No No -Cetacaine [place] No -Bleeding Controlled with Pressure Pressure -Treatment Response Procedure Procedure Tolerated Well Tolerated Well Pain Scale: 0-10 Numeric Is Patient Pain Free? Yes Yes Wound debrided: #1 Left posterior leg skin graft. Laterality: Left Wound Grade/Stage: 2. Type of Debridement: Selective debridement Anesthesia Used: 4% Lidocaine Solution Depth: - - some loose scabbing around the skin graft. Percentage of wound debrided: 20 Instrument Used: 3mm curette Tissue Removed: some loose scabbing around the skin graft. Severity: Limited To Skin Breakdown - some loose scabbing around the skin graft. Amount of bleeding with debridement: Mild Bleeding Controlled with: Pressure Patient tolerated procedure well - Additional Wound Wound debrided: #3 Left lateral skin graft. Laterality: Left Wound Grade/Stage: 2. Type of Debridement: Selective debridement Anesthesia Used: 4% Lidocaine Solution Depth: - - some loose scabbing around the skin graft. Percentage of wound debrided: 20 Instrument Used: 3mm curette Tissue Removed: some loose scabbing around the skin graft. Severity: Limited To Skin Breakdown - some loose scabbing around the skin graft. Amount of bleeding with debridement: Mild Bleeding Controlled with: Pressure Patient tolerated procedure: Patient tolerated procedure well - Additional Wound Wound debrided: #4 Left anterior lower leg skin graft. Laterality: Left Wound Grade/Stage: 2. Type of Debridement: Selective debridement Anesthesia Used: 4% Lidocaine Solution Depth: - - some loose scabbing around the skin graft. Percentage of wound debrided: 50 Instrument Used: 5mm curette Tissue Removed: some loose scabbing around the skin graft. Severity: Limited To Skin Breakdown - some loose scabbing around the skin graft. Amount of bleeding with debridement: Mild Bleeding Controlled with: Pressure Patient tolerated procedure: Patient tolerated procedure well - Additional Wound Wound debrided: #5 Right lateral leg skin graft. Laterality: Right Wound Grade/Stage: 2. Type of Debridement: Selective debridement Anesthesia Used: 4% Lidocaine Solution Depth: - - some loose scabbing around the skin graft. Percentage of wound debrided: 20 Instrument Used: 3mm curette Tissue Removed: some loose scabbing around the skin graft. Severity: Limited To Skin Breakdown - some loose scabbing around the skin graft. Amount of bleeding with debridement: Mild Bleeding Controlled with: Pressure Patient tolerated procedure: Patient tolerated procedure well - Additional Wound Wound debrided: #6 Right anterior superior leg skin graft. Laterality: Right Wound Grade/Stage: 2. Type of Debridement: Selective debridement Anesthesia Used: 4% Lidocaine Solution Depth: - - some loose scabbing around the skin graft. Percentage of wound debrided: 20 Instrument Used: 3mm curette Tissue Removed: some loose scabbing around the skin graft. Severity: Limited To Skin Breakdown - some loose scabbing around the skin graft. Amount of bleeding with debridement: Mild Bleeding Controlled with: Pressure Patient tolerated procedure: Patient tolerated procedure well - Additional Wound Wound debrided: #10 Right lower leg/medial ankle skin graft. Laterality: Right Wound Grade/Stage: 2. Type of Debridement: Selective debridement Anesthesia Used: 4% Lidocaine Solution Depth: - - some loose scabbing around the skin graft. Percentage of wound debrided: 20 Instrument Used: 3mm curette Tissue Removed: some loose scabbing around the skin graft. Severity: Limited To Skin Breakdown - some loose scabbing around the skin graft. Amount of bleeding with debridement: Mild Bleeding Controlled with: Pressure Patient tolerated procedure: Patient tolerated procedure well Assessment/Plan Assessment: 1. Nonhealing ulcer left posterior leg. 2. Nonhealing ulcer left lateral leg. 3. Nonhealing ulcer left anterior lower leg. 4. Nonhealing ulcer right lateral leg. 5. Nonhealing ulcer right anterior superior leg. 6. Nonhealing ulcer right lower leg/medial ankle. 7. Brain tumor - receiving chemotherapy, on hold. 8. s/p excisional debridement nonhealing ulcer left posterior leg with STSG reconstruction from lower anterior abdominal wall (9 cm2 ) and excisional debridement nonhealing ulcer left lateral leg with STSG reconstruction from lower anterior abdominal wall (30.5 cm2) and excisional debridement nonhealing ulcer left anterior lower leg with STSG reconstruction from lower anterior abdominal wall (27 cm2) and excisional debridement nonhealing ulcer right lateral leg with STSG reconstruction from lower anterior abdominal wall (14.25 cm2) and excisional debridement nonhealing ulcer right anterior superior leg with STSG reconstruction from lower anterior abdominal wall (7 cm2) and excisional debridement nonhealing ulcer right lower leg/medial ankle with STSG reconstruction from lower anterior abdominal wall (24.5 cm2). 9. Early compromise to skin grafts bilateral leg ulcers with the biggest compromise to the left anterior lower leg graft. Plan: Continue Silvercel daily to the grafts with Surepress compression. Can apply Adaptic to the left lower leg because some tendon is seen with the graft compromise. Her abdominal wall donor incision is healing satisfactory. She is finishing the Zyvox for the Enterococcus faecium. With her compromised skin grafts, she needs HBO treatments to help salvage the compromise. Awaiting approval. More surgical clips from the skin grafts were removed today without difficulty. Chemotherapy continues to be on hold because of the skin graft compromise. Followup one week. Her Prealbumin from 07/30/17 was 22.5. She takes nutritional supplementation with protein to help the healing process.
[2017-09-05 11:42] VITALS: BP 109/74; PULSE 58; RESP 18; TEMP 36
[2017-09-12 11:01] VITALS: BP 143/101; PULSE 71; RESP 16; TEMP 36.4
--- NOTE | 2017-09-12 20:08 | PCM.WC.PN ---
Type of Wound Date of Service: 09/12/17 Chief Complaint: Nonhealing ulcers bilateral legs s/p skin grafting with some compromise. History of Wound: Surgery 08/02/17 - 1. Excisional debridement nonhealing ulcer left posterior leg with STSG reconstruction from lower anterior abdominal wall (9 cm2). 2. Excisional debridement nonhealing ulcer left lateral leg with STSG reconstruction from lower anterior abdominal wall (30.5 cm2). 3. Excisional debridement nonhealing ulcer left anterior lower leg with STSG reconstruction from lower anterior abdominal wall (27 cm2). 4. Excisional debridement nonhealing ulcer right lateral leg with STSG reconstruction from lower anterior abdominal wall (14.25 cm2). 5. Excisional debridement nonhealing ulcer right anterior superior leg with STSG reconstruction from lower anterior abdominal wall (7 cm2). 6. Excisional debridement nonhealing ulcer right lower leg/medial ankle with STSG reconstruction from lower anterior abdominal wall (24.5 cm2). Wound care - Silver with NICKY wrap for compression. Operative culture - Enterococcus faecium. She was treated with Vancomycin and was discharged on Zyvox and has finished them (Insurance would not approve any more). Prealbumin from 07/30/17 was 22.5. She takes nutritional supplementation with protein to help the healing process. Today she denies fever. Her appetite is good. She states the wound care is more tolerable with the addition of Duragesic Patch, Valium, Dilaudid, and Neurontin. With her skin graft compromise, she would benefit from HBO treatments. Will obtain an MRI prior to starting HBO to evaluate the status of the brain cancer. Progress of Wound: Bilateral legs skin graft surgery 08/02/17 with some compromise. - Physical Exam Vital Signs Temp Pulse Resp BP 97.5 F L 71 16 143/101 H 09/12/17 11:01 09/12/17 11:01 09/12/17 11:01 09/12/17 11:01 HEENT: TM's Clear - No blood behind the TM's. No hemorrhage involving the TM's. Wound Measurements and Assessment WC - Nurse 1 - General Ulcer Measurement Start: 08/22/17 10:34 Freq: Status: Active Protocol: Activity Type Activity Date Activity User E-Sign Co-Sign Detail Recorded Client Recorded Date Recorded By Document 09/12/17 11:01 DL [id number] 09/12/17 11:21 DL 09/12/17 11:01 Wound Center Nurse 1 [Ulcer Assessment] #10 R Med Ankle -Combined with other wound No -Current Size (cm) - Length 3.2 -Current Size (cm) - Width 3.7 -Current Size (cm) - Depth 0.3 -Total Square Cm 11.84 -Photo Taken No -Epithelialization None Present -Tunneling No -Undermining/Tunneling No -Exudate Amt Medium (34-66%) -Exudate Type Serosanguineous -Wound Margin Distinct, Outline Attached -Granulation Amt Medium (34-66%) -Granulation Quality Red -Slough/Fibrin Yes -Necrosis Amt Medium (34-66%) -Necrotic Tissue Type Adherent Slough -Structure Exposed N/A -Texture (Riddhi-wound Skin Appearance) Assessed -Moisture (Riddhi-wound Skin Appearance Dry/Scaly ) -Color (Riddhi-wound Skin Appearance) Assessed -Temperature (Riddhi-wound Skin No Abnormality Appearance) (Pt Warm) -Tenderness on Palpation (Riddhi-wound Yes Skin Appearance) -Ulcer Cleansing Rinsed/ Irrigated with Saline -Foul Odor after Cleansing No -Anesthetic Used 4% Lidocaine Solution #6 R Sup [place] -Combined with other wound No -Current Size (cm) - Length 2 -Current Size (cm) - Width 1.7 -Current Size (cm) - Depth 0.6 -Total Square Cm 3.4 -Photo Taken No -Epithelialization None Present -Tunneling No -Undermining/Tunneling Yes -Undermining/Tunneling Starts (O' 12 clock) -Undermining/Tunneling Ends (O'clock) 12 -Maximum Distance (cm) 1 -Circular Undermining Yes -Exudate Amt Small (1-33%) -Exudate Type Serosanguineous -Wound Margin Distinct, Outline Attached -Granulation Amt Medium (34-66%) -Granulation Quality Red -Slough/Fibrin Yes -Necrosis Amt Medium (34-66%) -Necrotic Tissue Type Adherent Slough -Structure Exposed N/A -Texture (Riddhi-wound Skin Appearance) Scarring -Moisture (Riddhi-wound Skin Appearance Dry/Scaly ) -Color (Riddhi-wound Skin Appearance) Assessed -Temperature (Riddhi-wound Skin No Abnormality Appearance) (Pt Warm) -Tenderness on Palpation (Riddhi-wound Yes Skin Appearance) -Ulcer Cleansing Rinsed/ Irrigated with Saline -Foul Odor after Cleansing No -Anesthetic Used 4% Lidocaine Solution #5 R Lat Leg -Combined with other wound No -Current Size (cm) - Length 3 -Current Size (cm) - Width 1.8 -Current Size (cm) - Depth 0.6 -Total Square Cm 5.4 -Photo Taken No -Epithelialization None Present -Tunneling No -Undermining/Tunneling Yes -Undermining/Tunneling Starts (O' 12 clock) -Undermining/Tunneling Ends (O'clock) 12 -Maximum Distance (cm) 1.5 -Circular Undermining Yes -Exudate Amt Small (1-33%) -Exudate Type Serosanguineous -Wound Margin Distinct, Outline Attached -Granulation Amt Large (67-100%) -Granulation Quality Red -Slough/Fibrin Yes -Necrosis Amt Small (1-33%) -Necrotic Tissue Type Adherent Slough -Texture (Riddhi-wound Skin Appearance) Scarring -Color (Riddhi-wound Skin Appearance) Assessed -Temperature (Riddhi-wound Skin No Abnormality Appearance) (Pt Warm) -Tenderness on Palpation (Riddhi-wound Yes Skin Appearance) -Ulcer Cleansing Rinsed/ Irrigated with Saline -Foul Odor after Cleansing No -Anesthetic Used 4% Lidocaine Solution #4 L Lower [place] -Combined with other wound No -Current Size (cm) - Length 5.5 -Current Size (cm) - Width 4.5 -Current Size (cm) - Depth 0.5 -Total Square Cm 24.75 -Photo Taken No -Epithelialization None Present -Tunneling No -Undermining/Tunneling Yes -Undermining/Tunneling Starts (O' 5 clock) -Undermining/Tunneling Ends (O'clock) 11 -Maximum Distance (cm) 0.6 -Exudate Amt Medium (34-66%) -Exudate Type Serosanguineous -Wound Margin Distinct, Outline Attached -Granulation Amt Large (67-100%) -Granulation Quality [place] -Slough/Fibrin Yes -Necrosis Amt Small (1-33%) -Necrotic Tissue Type Adherent Slough -Structure Exposed Tendon -Texture (Riddhi-wound Skin Appearance) Scarring -Moisture (Riddhi-wound Skin Appearance Dry/Scaly ) -Color (Riddhi-wound Skin Appearance) Assessed -Temperature (Riddhi-wound Skin No Abnormality Appearance) (Pt Warm) -Tenderness on Palpation (Riddhi-wound Yes Skin Appearance) -Ulcer Cleansing Rinsed/ Irrigated with Saline -Foul Odor after Cleansing No -Anesthetic Used 4% Lidocaine Solution #3 L Lat Sup -Combined with other wound No -Current Size (cm) - Length 5.9 -Current Size (cm) - Width 3.2 -Current Size (cm) - Depth 0.6 -Total Square Cm 18.88 -Photo Taken No -Epithelialization None Present -Tunneling No -Undermining/Tunneling Yes -Undermining/Tunneling Starts (O' 10 clock) -Undermining/Tunneling Ends (O'clock) 1 -Maximum Distance (cm) 0.6 -Exudate Amt Medium (34-66%) -Exudate Type Serosanguineous -Wound Margin Distinct, Outline Attached -Granulation Amt Large (67-100%) -Granulation Quality [place] -Slough/Fibrin Yes -Necrosis Amt Small (1-33%) -Necrotic Tissue Type Adherent Slough -Texture (Riddhi-wound Skin Appearance) Scarring -Moisture (Riddhi-wound Skin Appearance Assessed ) Dry/Scaly -Color (Riddhi-wound Skin Appearance) Assessed -Temperature (Riddhi-wound Skin No Abnormality Appearance) (Pt Warm) -Tenderness on Palpation (Riddhi-wound Yes Skin Appearance) -Ulcer Cleansing Rinsed/ Irrigated with Saline -Foul Odor after Cleansing No -Anesthetic Used 4% Lidocaine Solution #1 L Post Leg -Combined with other wound No -Current Size (cm) - Length 2.2 -Current Size (cm) - Width 1.7 -Current Size (cm) - Depth 0.6 -Total Square Cm 3.74 -Photo Taken No -Epithelialization None Present -Tunneling No -Undermining/Tunneling Yes -Undermining/Tunneling Starts (O' 10 clock) -Undermining/Tunneling Ends (O'clock) 12 -Maximum Distance (cm) 0.5 -Exudate Amt Small (1-33%) -Exudate Type Serosanguineous -Wound Margin Distinct, Outline Attached -Granulation Amt Large (67-100%) -Granulation Quality Red -Slough/Fibrin Yes -Necrosis Amt Small (1-33%) -Necrotic Tissue Type Adherent Slough -Texture (Riddhi-wound Skin Appearance) Scarring -Moisture (Riddhi-wound Skin Appearance Dry/Scaly ) -Color (Riddhi-wound Skin Appearance) Assessed -Temperature (Riddhi-wound Skin No Abnormality Appearance) (Pt Warm) -Tenderness on Palpation (Riddhi-wound Yes Skin Appearance) -Ulcer Cleansing Rinsed/ Irrigated with Saline -Foul Odor after Cleansing No -Anesthetic Used 4% Lidocaine Solution [Edema Assessment] -Lower Limb Edema Present Yes -Right Calf (cm) 34 -Right Ankle (cm) 19.3 -Left Calf (cm) 34 -Left Ankle (cm) 20 WC - Nurse 2 - General Ulcer CM Notes Start: 08/22/17 10:34 Freq: Status: Active Protocol: Activity Type Activity Date Activity User E-Sign Co-Sign Detail Recorded Client Recorded Date Recorded By Document 09/12/17 11:41 RANDY [id number] 09/12/17 11:47 RANDY 09/12/17 11:41 Wound Center Nurse 2 [Procedure/Treatment] #10 R Med Ankle -Time 11:42 -Correct Patient Yes -Correct Side, Site, Position Yes -Correct Procedure Yes -Procedure Performed Yes -Type of Procedure Debridement -Clinical Debridement Subcutaneous -Post Debridement Size (cm) - Length 3.3 -Post Debridement Size (cm) - Width 3.7 -Post Debridement Size (cm) - Depth 0.3 -Total Square Cm 12.21 -Wound/Ulcer Outcome Not Healed -Ulcer Cleansing Rinsed/ Irrigated with Saline -Foul Odor after Cleansing No -Bioengineered Tissue No -Bleeding Controlled with Pressure -Treatment Response Procedure Tolerated Well #6 R Sup [place] -Time 11:42 -Correct Patient Yes -Correct Side, Site, Position Yes -Correct Procedure Yes -Procedure Performed Yes -Type of Procedure Debridement -Clinical Debridement Subcutaneous -Post Debridement Size (cm) - Length 2 -Post Debridement Size (cm) - Width 1.8 -Post Debridement Size (cm) - Depth 0.6 -Total Square Cm 3.6 -Wound/Ulcer Outcome Not Healed -Ulcer Cleansing Rinsed/ Irrigated with Saline -Foul Odor after Cleansing No -Bioengineered Tissue No -Bleeding Controlled with Pressure -Treatment Response Procedure Tolerated Well #5 R Lat Leg -Time 11:43 -Correct Patient Yes -Correct Side, Site, Position Yes -Correct Procedure Yes -Procedure Performed Yes -Type of Procedure Debridement -Clinical Debridement Subcutaneous -Post Debridement Size (cm) - Length 3 -Post Debridement Size (cm) - Width 1.8 -Post Debridement Size (cm) - Depth 0.7 -Total Square Cm 5.4 -Wound/Ulcer Outcome Not Healed -Ulcer Cleansing Rinsed/ Irrigated with Saline -Foul Odor after Cleansing No -Bioengineered Tissue No -Bleeding Controlled with Pressure -Treatment Response Procedure Tolerated Well #4 L Lower [place] -Time 11:43 -Correct Patient Yes -Correct Side, Site, Position Yes -Correct Procedure Yes -Procedure Performed Yes -Type of Procedure Debridement -Clinical Debridement Muscle -Post Debridement Size (cm) - Length 5.5 -Post Debridement Size (cm) - Width 4.6 -Post Debridement Size (cm) - Depth 0.5 -Total Square Cm 25.30 -Wound/Ulcer Outcome Not Healed -Ulcer Cleansing Rinsed/ Irrigated with Saline -Foul Odor after Cleansing No -Bioengineered Tissue No -Bleeding Controlled with Pressure -Treatment Response Procedure Tolerated Well #3 L Lat Sup -Time 11:46 -Correct Patient Yes -Correct Side, Site, Position Yes -Correct Procedure Yes -Procedure Performed Yes -Type of Procedure Debridement -Clinical Debridement Subcutaneous -Post Debridement Size (cm) - Length 6 -Post Debridement Size (cm) - Width 3.2 -Post Debridement Size (cm) - Depth 0.6 -Total Square Cm 19.2 -Wound/Ulcer Outcome Not Healed -Ulcer Cleansing Rinsed/ Irrigated with Saline -Foul Odor after Cleansing No -Bioengineered Tissue No -Bleeding Controlled with Pressure -Treatment Response Procedure Tolerated Well #1 L Post Leg -Time 11:46 -Correct Patient Yes -Correct Side, Site, Position Yes -Correct Procedure Yes -Procedure Performed Yes -Type of Procedure Debridement -Clinical Debridement Muscle -Post Debridement Size (cm) - Length 2.2 -Post Debridement Size (cm) - Width 1.8 -Post Debridement Size (cm) - Depth 0.6 -Total Square Cm 3.96 -Wound/Ulcer Outcome Not Healed -Ulcer Cleansing Rinsed/ Irrigated with Saline -Foul Odor after Cleansing No -Bioengineered Tissue No -Bleeding Controlled with Pressure -Treatment Response Procedure Tolerated Well [See Physician Procedure note for Specifics] Pain Scale: 0-10 Numeric [Pain] -Is Patient Pain Free? Yes Debridement Note Post-Debridement Measurements/Treatment WC - Nurse 2 - General Ulcer CM Notes Start: 08/22/17 10:34 Freq: Status: Active Protocol: Activity Type Activity Date Activity User E-Sign Co-Sign Detail Recorded Client Recorded Date Recorded By Document 08/22/17 11:54 [id number] 08/22/17 11:57 Document 08/29/17 12:06 JOSSELINE [id number] 08/29/17 12:11 DV Document 09/12/17 11:41 [id number] 09/12/17 11:47 08/22/17 08/29/17 09/12/17 11:54 12:06 11:41 Wound Center Nurse 2 #10 R Med Ankle -Time 11:54 12:07 11:42 -Correct Patient Yes Yes Yes -Correct Side, Site, Position Yes Yes Yes -Correct Procedure Yes Yes Yes -Procedure Performed Yes Yes Yes -Type of Procedure Debridement Debridement Debridement -Clinical Debridement Selective Selective Subcutaneous -Post Debridement Size (cm) - Length 4.0 4.0 3.3 -Post Debridement Size (cm) - Width 4.5 3.9 3.7 -Post Debridement Size (cm) - Depth 0.4 0.4 0.3 -Total Square Cm 18.00 15.60 12.21 -Wound/Ulcer Outcome Not Healed Not Healed Not Healed -Ulcer Cleansing Rinsed/ Rinsed/ Rinsed/ Irrigated with Irrigated with Irrigated with Saline Saline Saline -Foul Odor after Cleansing No No No -Bioengineered Tissue No No No -Cetacaine [facility] No -Bleeding Controlled with Pressure Pressure Pressure -Treatment Response Procedure Procedure Procedure Tolerated Well Tolerated Well Tolerated Well #6 R Sup [place] -Time 11:55 12:08 11:42 -Correct Patient Yes Yes Yes -Correct Side, Site, Position Yes Yes Yes -Correct Procedure Yes Yes Yes -Procedure Performed Yes Yes Yes -Type of Procedure Debridement Debridement Debridement -Clinical Debridement Selective Selective Subcutaneous -Post Debridement Size (cm) - Length 2.5 2.0 2 -Post Debridement Size (cm) - Width 2.5 2.0 1.8 -Post Debridement Size (cm) - Depth 0.5 0.6 0.6 -Total Square Cm 6.25 4.00 3.6 -Wound/Ulcer Outcome Not Healed Not Healed Not Healed -Ulcer Cleansing Rinsed/ Rinsed/ Rinsed/ Irrigated with Irrigated with Irrigated with Saline Saline Saline -Foul Odor after Cleansing No No No -Bioengineered Tissue No No No -Cetacaine [facility] No -Bleeding Controlled with Pressure Pressure Pressure -Treatment Response Procedure Procedure Procedure Tolerated Well Tolerated Well Tolerated Well #5 R Lat Leg -Time 11:55 12:08 11:43 -Correct Patient Yes Yes Yes -Correct Side, Site, Position Yes Yes Yes -Correct Procedure Yes Yes Yes -Procedure Performed Yes Yes Yes -Type of Procedure Debridement Debridement Debridement -Clinical Debridement Selective Selective Subcutaneous -Post Debridement Size (cm) - Length 3.5 3.4 3 -Post Debridement Size (cm) - Width 2.7 2.4 1.8 -Post Debridement Size (cm) - Depth 0.5 0.4 0.7 -Total Square Cm 9.45 8.16 5.4 -Wound/Ulcer Outcome Not Healed Not Healed Not Healed -Ulcer Cleansing Rinsed/ Rinsed/ Rinsed/ Irrigated with Irrigated with Irrigated with Saline Saline Saline -Foul Odor after Cleansing No No No -Bioengineered Tissue No No No -Cetacaine [facility] No -Bleeding Controlled with Pressure Pressure Pressure -Treatment Response Procedure Procedure Procedure Tolerated Well Tolerated Well Tolerated Well #4 L [place] -Time 11:55 12:09 11:43 -Correct Patient Yes Yes Yes -Correct Side, Site, Position Yes Yes Yes -Correct Procedure Yes Yes Yes -Procedure Performed Yes Yes Yes -Type of Procedure Debridement Debridement Debridement -Clinical Debridement Selective Selective Muscle -Post Debridement Size (cm) - Length 5.8 6.0 5.5 -Post Debridement Size (cm) - Width 5.3 5.0 4.6 -Post Debridement Size (cm) - Depth 0.4 0.6 0.5 -Total Square Cm 30.74 30.00 25.30 -Wound/Ulcer Outcome Not Healed Not Healed Not Healed -Ulcer Cleansing Rinsed/ Rinsed/ Rinsed/ Irrigated with Irrigated with Irrigated with Saline Saline Saline -Foul Odor after Cleansing No No No -Bioengineered Tissue No No No -Cetacaine [facility] No -Bleeding Controlled with Pressure Pressure Pressure -Treatment Response Procedure Procedure Procedure Tolerated Well Tolerated Well Tolerated Well #3 L Lat Sup -Time 11:56 12:09 11:46 -Correct Patient Yes Yes Yes -Correct Side, Site, Position Yes Yes Yes -Correct Procedure Yes Yes Yes -Procedure Performed Yes Yes Yes -Type of Procedure Debridement Debridement Debridement -Clinical Debridement Selective Selective Subcutaneous -Post Debridement Size (cm) - Length 6.3 6.5 6 -Post Debridement Size (cm) - Width 4.5 3.6 3.2 -Post Debridement Size (cm) - Depth 0.4 0.2 0.6 -Total Square Cm 28.35 23.40 19.2 -Wound/Ulcer Outcome Not Healed Not Healed Not Healed -Ulcer Cleansing Rinsed/ Rinsed/ Rinsed/ Irrigated with Irrigated with Irrigated with Saline Saline Saline -Foul Odor after Cleansing No No No -Bioengineered Tissue No No No -Cetacaine [facility] No -Bleeding Controlled with Pressure Pressure Pressure -Treatment Response Procedure Procedure Procedure Tolerated Well Tolerated Well Tolerated Well #1 L Post Leg -Time 11:56 12:10 11:46 -Correct Patient Yes Yes Yes -Correct Side, Site, Position Yes Yes Yes -Correct Procedure Yes Yes Yes -Procedure Performed Yes Yes Yes -Type of Procedure Debridement Debridement Debridement -Clinical Debridement Selective Selective Muscle -Post Debridement Size (cm) - Length 2.8 2.0 2.2 -Post Debridement Size (cm) - Width 2.6 3.5 1.8 -Post Debridement Size (cm) - Depth 0.3 0.2 0.6 -Total Square Cm 7.28 7.00 3.96 -Wound/Ulcer Outcome Not Healed Not Healed Not Healed -Ulcer Cleansing Rinsed/ Rinsed/ Rinsed/ Irrigated with Irrigated with Irrigated with Saline Saline Saline -Foul Odor after Cleansing No No No -Bioengineered Tissue No No No -Cetacaine [facility] No -Bleeding Controlled with Pressure Pressure Pressure -Treatment Response Procedure Procedure Procedure Tolerated Well Tolerated Well Tolerated Well Pain Scale: 0-10 Numeric Is Patient Pain Free? Yes Yes Yes Wound debrided: #1 Left posterior leg skin graft. Laterality: Left Wound Grade/Stage: 2. Type of Debridement: Excisional debridement Anesthesia Used: 4% Lidocaine Solution Depth: Down to and including healthy tissue, in the subcutaneous layer, to muscle Percentage of wound debrided: 100 Instrument Used: 5mm curette Tissue Removed: subcutaneous tissue and muscle. Severity: Fat Layer Exposed - muscle is exposed. Amount of bleeding with debridement: Mild Bleeding Controlled with: Pressure Patient tolerated procedure well - Additional Wound Wound debrided: #3 Left lateral leg skin graft. Laterality: Left Wound Grade/Stage: 2. Type of Debridement: Excisional debridement Anesthesia Used: 4% Lidocaine Solution Depth: Down to and including healthy tissue, in the subcutaneous layer Percentage of wound debrided: 100 Instrument Used: 5mm curette Tissue Removed: subcutaneous tissue. Severity: Fat Layer Exposed Amount of bleeding with debridement: Mild Bleeding Controlled with: Pressure Patient tolerated procedure: Patient tolerated procedure well - Additional Wound Wound debrided: #4 Left anterior lower leg skin graft. Laterality: Left Wound Grade/Stage: 2. Type of Debridement: Excisional debridement Anesthesia Used: 4% Lidocaine Solution Depth: Down to and including healthy tissue, in the subcutaneous layer, to muscle Percentage of wound debrided: 100 Instrument Used: 5mm curette Tissue Removed: subcutaneous tissue and muscle. Severity: Fat Layer Exposed - muscle is exposed. Amount of bleeding with debridement: Mild Bleeding Controlled with: Pressure Patient tolerated procedure: Patient tolerated procedure well - Additional Wound Wound debrided: #5 Right lateral leg skin graft. Laterality: Right Wound Grade/Stage: 2. Type of Debridement: Excisional debridement Anesthesia Used: 4% Lidocaine Solution Depth: Down to and including healthy tissue, in the subcutaneous layer Percentage of wound debrided: 100 Instrument Used: 5mm curette Tissue Removed: subcutaneous tissue. Severity: Fat Layer Exposed Amount of bleeding with debridement: Mild Bleeding Controlled with: Pressure Patient tolerated procedure: Patient tolerated procedure well - Additional Wound Wound debrided: #6 Right anterior superior leg skin graft. Laterality: Right Wound Grade/Stage: 2. Type of Debridement: Excisional debridement Anesthesia Used: 4% Lidocaine Solution Depth: Down to and including healthy tissue, in the subcutaneous layer Percentage of wound debrided: 100 Instrument Used: 5mm curette Tissue Removed: subcutaneous tissue. Severity: Fat Layer Exposed Amount of bleeding with debridement: Mild Bleeding Controlled with: Pressure Patient tolerated procedure: Patient tolerated procedure well - Additional Wound Wound debrided: #10 Right lower leg/medial ankle. Laterality: Right Wound Grade/Stage: 2. Type of Debridement: Excisional debridement Anesthesia Used: 4% Lidocaine Solution Depth: Down to and including healthy tissue, in the subcutaneous layer Percentage of wound debrided: 100 Instrument Used: 5mm curette Tissue Removed: subcutaneous tissue. Severity: Fat Layer Exposed Amount of bleeding with debridement: Mild Bleeding Controlled with: Pressure Patient tolerated procedure: Patient tolerated procedure well Assessment/Plan Assessment: 1. Nonhealing ulcer left posterior leg. 2. Nonhealing ulcer left lateral leg. 3. Nonhealing ulcer left anterior lower leg. 4. Nonhealing ulcer right lateral leg. 5. Nonhealing ulcer right anterior superior leg. 6. Nonhealing ulcer right lower leg/medial ankle. 7. Brain tumor - receiving chemotherapy, on hold. 8. s/p excisional debridement nonhealing ulcer left posterior leg with STSG reconstruction from lower anterior abdominal wall (9 cm2) and excisional debridement nonhealing ulcer left lateral leg with STSG reconstruction from lower anterior abdominal wall (30.5 cm2) and excisional debridement nonhealing ulcer left anterior lower leg with STSG reconstruction from lower anterior abdominal wall (27 cm2) and excisional debridement nonhealing ulcer right lateral leg with STSG reconstruction from lower anterior abdominal wall (14.25 cm2) and excisional debridement nonhealing ulcer right anterior superior leg with STSG reconstruction from lower anterior abdominal wall (7 cm2) and excisional debridement nonhealing ulcer right lower leg/medial ankle with STSG reconstruction from lower anterior abdominal wall (24.5 cm2). 9. Early compromise to skin grafts bilateral leg ulcers with the biggest compromise to the left anterior lower leg graft. Plan: Continue Silvercel daily to the grafts with Surepress compression. The Silver is starting to dry out the ulcers. Will add Adaptic to the ulcers. It will also help the tendons from drying out as well. Her abdominal wall donor incision is healing satisfactory. 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 With her compromised skin grafts, she needs HBO treatments to help salvage the compromise. Awaiting approval. Chemotherapy continues to be on hold because of the skin graft compromise. Will order an MRI to evaluate the brain cancer before starting HBO. Followup 2 weeks. Her Prealbumin from 07/30/17 was 22.5. She takes nutritional supplementation with protein to help the healing process.
--- NOTE | 2017-10-10 23:31 | PCM.WC.PN ---
Type of Wound Date of Service: 10/10/17 Chief Complaint: Nonhealing ulcers bilateral legs s/p skin grafting with some compromise and new onset ulcers left posterior ankle and right posterior ankle. History of Wound: Surgery 08/02/17 - 1. Excisional debridement nonhealing ulcer left posterior leg with STSG reconstruction from lower anterior abdominal wall (9 cm2). 2. Excisional debridement nonhealing ulcer left lateral leg with STSG reconstruction from lower anterior abdominal wall (30.5 cm2). 3. Excisional debridement nonhealing ulcer left anterior lower leg with STSG reconstruction from lower anterior abdominal wall (27 cm2). 4. Excisional debridement nonhealing ulcer right lateral leg with STSG reconstruction from lower anterior abdominal wall (14.25 cm2). 5. Excisional debridement nonhealing ulcer right anterior superior leg with STSG reconstruction from lower anterior abdominal wall (7 cm2). 6. Excisional debridement nonhealing ulcer right lower leg/medial ankle with STSG reconstruction from lower anterior abdominal wall (24.5 cm2). Wound care - Silver with Adaptic and NICKY wrap for compression. Operative culture - Enterococcus faecium. She was treated with Vancomycin and was discharged on Zyvox and has finished them (Insurance would not approve any more). Prealbumin from 07/30/17 was 22.5. She takes nutritional supplementation with protein to help the healing process. Today she denies fever. Her appetite is good. She states the wound care is more tolerable with the addition of Duragesic Patch, Valium, Dilaudid, and Neurontin. We are weaning off the Dilaudid and changing to OxyIR. With her skin graft compromise, she would benefit from HBO treatments. We obtained an MRI prior to starting HBO to evaluate the status of the brain cancer. [facility] looked at it and stated the cancer was stable and not actively growing. So will start HBO. Due to some pressure, possibly from the dressing, she has noted a new onset left posterior ankle ulceration and right posterior ankle ulceration. Progress of Wound: Bilateral legs skin graft surgery 08/02/17 with some compromise and new onset ulcers left posterior ankle and right posterior ankle. - Physical Exam Vital Signs Temp Pulse Resp BP 97.5 F L 71 16 143/101 H 09/12/17 11:01 09/12/17 11:01 09/12/17 11:01 02/26/18 11:01 Debridement Note Post-Debridement Measurements/Treatment WC - Nurse 2 - General Ulcer CM Notes Start: 08/22/17 10:34 Freq: Status: Active Protocol: Activity Type Activity Date Activity User E-Sign Co-Sign Detail Recorded Client Recorded Date Recorded By Document 08/22/17 11:54 [id number] 08/22/17 11:57 JF Document 08/29/17 12:06 DV [id number] 08/29/17 12:11 DV Document 09/12/17 11:41 [id number] 09/12/17 11:47 08/22/17 08/29/17 09/12/17 11:54 12:06 11:41 Wound Center Nurse 2 #10 R Med Ankle -Time 11:54 12:07 11:42 -Correct Patient Yes Yes Yes -Correct Side, Site, Position Yes Yes Yes -Correct Procedure Yes Yes Yes -Procedure Performed Yes Yes Yes -Type of Procedure Debridement Debridement Debridement -Clinical Debridement Selective Selective Subcutaneous -Post Debridement Size (cm) - Length 4.0 4.0 3.3 -Post Debridement Size (cm) - Width 4.5 3.9 3.7 -Post Debridement Size (cm) - Depth 0.4 0.4 0.3 -Total Square Cm 18.00 15.60 12.21 -Wound/Ulcer Outcome Not Healed Not Healed Not Healed -Ulcer Cleansing Rinsed/ Rinsed/ Rinsed/ Irrigated with Irrigated with Irrigated with Saline Saline Saline -Foul Odor after Cleansing No No No -Bioengineered Tissue No No No -Cetacaine [place] No -Bleeding Controlled with Pressure Pressure Pressure -Treatment Response Procedure Procedure Procedure Tolerated Well Tolerated Well Tolerated Well #6 R Sup [place] -Time 11:55 12:08 11:42 -Correct Patient Yes Yes Yes -Correct Side, Site, Position Yes Yes Yes -Correct Procedure Yes Yes Yes -Procedure Performed Yes Yes Yes -Type of Procedure Debridement Debridement Debridement -Clinical Debridement Selective Selective Subcutaneous -Post Debridement Size (cm) - Length 2.5 2.0 2 -Post Debridement Size (cm) - Width 2.5 2.0 1.8 -Post Debridement Size (cm) - Depth 0.5 0.6 0.6 -Total Square Cm 6.25 4.00 3.6 -Wound/Ulcer Outcome Not Healed Not Healed Not Healed -Ulcer Cleansing Rinsed/ Rinsed/ Rinsed/ Irrigated with Irrigated with Irrigated with Saline Saline Saline -Foul Odor after Cleansing No No No -Bioengineered Tissue No No No -Cetacaine [place] No -Bleeding Controlled with Pressure Pressure Pressure -Treatment Response Procedure Procedure Procedure Tolerated Well Tolerated Well Tolerated Well #5 R Lat Leg -Time 11:55 12:08 11:43 -Correct Patient Yes Yes Yes -Correct Side, Site, Position Yes Yes Yes -Correct Procedure Yes Yes Yes -Procedure Performed Yes Yes Yes -Type of Procedure Debridement Debridement Debridement -Clinical Debridement Selective Selective Subcutaneous -Post Debridement Size (cm) - Length 3.5 3.4 3 -Post Debridement Size (cm) - Width 2.7 2.4 1.8 -Post Debridement Size (cm) - Depth 0.5 0.4 0.7 -Total Square Cm 9.45 8.16 5.4 -Wound/Ulcer Outcome Not Healed Not Healed Not Healed -Ulcer Cleansing Rinsed/ Rinsed/ Rinsed/ Irrigated with Irrigated with Irrigated with Saline Saline Saline -Foul Odor after Cleansing No No No -Bioengineered Tissue No No No -Cetacaine [place] No -Bleeding Controlled with Pressure Pressure Pressure -Treatment Response Procedure Procedure Procedure Tolerated Well Tolerated Well Tolerated Well #4 L Lower [place] -Time 11:55 12:09 11:43 -Correct Patient Yes Yes Yes -Correct Side, Site, Position Yes Yes Yes -Correct Procedure Yes Yes Yes -Procedure Performed Yes Yes Yes -Type of Procedure Debridement Debridement Debridement -Clinical Debridement Selective Selective Muscle -Post Debridement Size (cm) - Length 5.8 6.0 5.5 -Post Debridement Size (cm) - Width 5.3 5.0 4.6 -Post Debridement Size (cm) - Depth 0.4 0.6 0.5 -Total Square Cm 30.74 30.00 25.30 -Wound/Ulcer Outcome Not Healed Not Healed Not Healed -Ulcer Cleansing Rinsed/ Rinsed/ Rinsed/ Irrigated with Irrigated with Irrigated with Saline Saline Saline -Foul Odor after Cleansing No No No -Bioengineered Tissue No No No -Cetacaine [place] No -Bleeding Controlled with Pressure Pressure Pressure -Treatment Response Procedure Procedure Procedure Tolerated Well Tolerated Well Tolerated Well #3 L Lat Sup -Time 11:56 12:09 11:46 -Correct Patient Yes Yes Yes -Correct Side, Site, Position Yes Yes Yes -Correct Procedure Yes Yes Yes -Procedure Performed Yes Yes Yes -Type of Procedure Debridement Debridement Debridement -Clinical Debridement Selective Selective Subcutaneous -Post Debridement Size (cm) - Length 6.3 6.5 6 -Post Debridement Size (cm) - Width 4.5 3.6 3.2 -Post Debridement Size (cm) - Depth 0.4 0.2 0.6 -Total Square Cm 28.35 23.40 19.2 -Wound/Ulcer Outcome Not Healed Not Healed Not Healed -Ulcer Cleansing Rinsed/ Rinsed/ Rinsed/ Irrigated with Irrigated with Irrigated with Saline Saline Saline -Foul Odor after Cleansing No No No -Bioengineered Tissue No No No -Cetacaine [place] No -Bleeding Controlled with Pressure Pressure Pressure -Treatment Response Procedure Procedure Procedure Tolerated Well Tolerated Well Tolerated Well #1 L Post Leg -Time 11:56 12:10 11:46 -Correct Patient Yes Yes Yes -Correct Side, Site, Position Yes Yes Yes -Correct Procedure Yes Yes Yes -Procedure Performed Yes Yes Yes -Type of Procedure Debridement Debridement Debridement -Clinical Debridement Selective Selective Muscle -Post Debridement Size (cm) - Length 2.8 2.0 2.2 -Post Debridement Size (cm) - Width 2.6 3.5 1.8 -Post Debridement Size (cm) - Depth 0.3 0.2 0.6 -Total Square Cm 7.28 7.00 3.96 -Wound/Ulcer Outcome Not Healed Not Healed Not Healed -Ulcer Cleansing Rinsed/ Rinsed/ Rinsed/ Irrigated with Irrigated with Irrigated with Saline Saline Saline -Foul Odor after Cleansing No No No -Bioengineered Tissue No No No -Cetacaine [place] No -Bleeding Controlled with Pressure Pressure Pressure -Treatment Response Procedure Procedure Procedure Tolerated Well Tolerated Well Tolerated Well Pain Scale: 0-10 Numeric Is Patient Pain Free? Yes Yes Yes Wound debrided: #1 Left posterior leg skin graft. Laterality: Left Wound Grade/Stage: 2. Type of Debridement: Excisional debridement Anesthesia Used: 4% Lidocaine Solution Depth: Down to and including healthy tissue, in the subcutaneous layer, to muscle Percentage of wound debrided: 100 Instrument Used: 5mm curette Tissue Removed: subcutaneous tissue and muscle. Severity: Fat Layer Exposed - muscle is exposed. Amount of bleeding with debridement: Mild Bleeding Controlled with: Pressure Patient tolerated procedure well - Additional Wound Wound debrided: #3 Left lateral leg skin graft. Laterality: Left Wound Grade/Stage: 2. Patient tolerated procedure: - - The graft has healed. - Additional Wound Wound debrided: #4 Left anterior lower leg skin graft. Laterality: Left Wound Grade/Stage: 2. Type of Debridement: Excisional debridement Anesthesia Used: 4% Lidocaine Solution Depth: Down to and including healthy tissue, in the subcutaneous layer, to muscle Percentage of wound debrided: 100 Instrument Used: 5mm curette Tissue Removed: subcutaneous tissue and muscle. Severity: Fat Layer Exposed - muscle is exposed. Amount of bleeding with debridement: Mild Bleeding Controlled with: Pressure Patient tolerated procedure: Patient tolerated procedure well - Additional Wound Wound debrided: #5 Right lateral leg skin graft. Laterality: Right Wound Grade/Stage: 2. Type of Debridement: Excisional debridement Anesthesia Used: 4% Lidocaine Solution Depth: Down to and including healthy tissue, in the subcutaneous layer, to muscle Percentage of wound debrided: 100 Instrument Used: 5mm curette Tissue Removed: subcutaneous tissue and muscle. Severity: Fat Layer Exposed - muscle is exposed. Amount of bleeding with debridement: Mild Bleeding Controlled with: Pressure Patient tolerated procedure: Patient tolerated procedure well - Additional Wound Wound debrided: #6 Right anterior superior leg skin graft. Laterality: Right Wound Grade/Stage: 2. Type of Debridement: Excisional debridement Anesthesia Used: 4% Lidocaine Solution Depth: Down to and including healthy tissue, in the subcutaneous layer, to muscle Percentage of wound debrided: 100 Instrument Used: 5mm curette Tissue Removed: subcutaneous tissue and muscle. Severity: Fat Layer Exposed - muscle is exposed. Amount of bleeding with debridement: Mild Bleeding Controlled with: Pressure Patient tolerated procedure: Patient tolerated procedure well - Additional Wound Wound debrided: #10 Right lower leg/medial ankle. Laterality: Right Wound Grade/Stage: 2. Patient tolerated procedure: - - The graft has healed. - Additional Wound Wound debrided: #12 Left posterior ankle. Laterality: Left Wound Grade/Stage: 2. Type of Debridement: Excisional debridement Anesthesia Used: 4% Lidocaine Solution Depth: Down to and including healthy tissue, in the subcutaneous layer, to muscle Percentage of wound debrided: 100 Instrument Used: 5mm curette Tissue Removed: subcutaneous tissue and muscle. Severity: Fat Layer Exposed - muscle is exposed. Amount of bleeding with debridement: Mild Bleeding Controlled with: Pressure Patient tolerated procedure: Patient tolerated procedure well - Additional Wound Wound debrided: #13 Right posterior ankle. Laterality: Right Wound Grade/Stage: 2. Type of Debridement: Excisional debridement Anesthesia Used: 4% Lidocaine Solution Depth: Down to and including healthy tissue, in the subcutaneous layer, to muscle Percentage of wound debrided: 100 Instrument Used: 5mm curette Tissue Removed: subcutaneous tissue and muscle. Severity: Fat Layer Exposed - muscle is exposed. Amount of bleeding with debridement: Mild Bleeding Controlled with: Pressure Patient tolerated procedure: Patient tolerated procedure well Assessment/Plan Assessment: 1. Nonhealing ulcer left posterior leg. 2. Ulcer left lateral leg, healed. 3. Nonhealing ulcer left anterior lower leg. 4. Nonhealing ulcer right lateral leg. 5. Nonhealing ulcer right anterior superior leg. 6. Ulcer right lower leg/medial ankle, healed. 7. Brain tumor - receiving chemotherapy, on hold. 8. s/p excisional debridement nonhealing ulcer left posterior leg with STSG reconstruction from lower anterior abdominal wall (9 cm2) and excisional debridement nonhealing ulcer left lateral leg with STSG reconstruction from lower anterior abdominal wall (30.5 cm2) and excisional debridement nonhealing ulcer left anterior lower leg with STSG reconstruction from lower anterior abdominal wall (27 cm2) and excisional debridement nonhealing ulcer right lateral leg with STSG reconstruction from lower anterior abdominal wall (14.25 cm2) and excisional debridement nonhealing ulcer right anterior superior leg with STSG reconstruction from lower anterior abdominal wall (7 cm2) and excisional debridement nonhealing ulcer right lower leg/medial ankle with STSG reconstruction from lower anterior abdominal wall (24.5 cm2). 9. Early compromise to skin grafts bilateral leg ulcers with the biggest compromise to the left anterior lower leg graft. 10. Nonhealing ulcer left posterior ankle. 11. Nonhealing ulcer right posterior ankle. Plan: Continue Silvercel daily to the grafts with Surepress compression. Also apply Silver to the two new onset ulcers in the left posterior ankle and right posterior ankle. The Silver is starting to dry out the ulcers. Will add Adaptic to the ulcers. It will also help the tendons from drying out as well. Her abdominal wall donor incision is healing satisfactory. 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 With her compromised skin grafts, she needs HBO treatments to help salvage the compromise. It has been approved. Chemotherapy continues to be on hold because of the skin graft compromise. An MRI was done to evaluate the brain cancer before starting HBO, and according to [facility], the MRI was ok as the cancer has stabilized and is not actively growing at this time. She has started HBO treatments and is tolerating them thus far. Followup 2 weeks. Her Prealbumin from 07/30/17 was 22.5. She takes nutritional supplementation with protein to help the healing process. Renewed her Percocet for pain, one tab (30 tabs).
--- NOTE | 2017-10-17 18:22 | PN.PCM_ITS ---
Type of Wound Date of Service: 10/10/17 Chief Complaint: Nonhealing ulcers bilateral legs s/p skin grafting with some compromise and new onset ulcers left posterior ankle and right posterior ankle. History of Wound: Surgery 08/02/17 - 1. Excisional debridement nonhealing ulcer left posterior leg with STSG reconstruction from lower anterior abdominal wall ( 9 cm2). 2. Excisional debridement nonhealing ulcer left lateral leg with STSG reconstruction from lower anterior abdominal wall (30.5 cm2). 3. Excisional debridement nonhealing ulcer left anterior lower leg with STSG reconstruction from lower anterior abdominal wall (27 cm2). 4. Excisional debridement nonhealing ulcer right lateral leg with STSG reconstruction from lower anterior abdominal wall (14.25 cm2). 5. Excisional debridement nonhealing ulcer right anterior superior leg with STSG reconstruction from lower anterior abdominal wall (7 cm2). 6. Excisional debridement nonhealing ulcer right lower leg/ medial ankle with STSG reconstruction from lower anterior abdominal wall (24.5 cm2). Wound care - Silver with Adaptic and NICKY wrap for compression. Operative culture - Enterococcus faecium. She was treated with Vancomycin and was discharged on Zyvox and has finished them (Insurance would not approve any more). Prealbumin from 07/30/17 was 22.5. She takes nutritional supplementation with protein to help the healing process. Today she denies fever. Her appetite is good. She states the wound care is more tolerable with the addition of Duragesic Patch, Valium, Dilaudid, and Neurontin. We are weaning off the Dilaudid and changing to OxyIR. With her skin graft compromise , she would benefit from HBO treatments. We obtained an MRI prior to starting HBO to evaluate the status of the brain cancer. [facility] looked at it and stated the cancer was stable and not actively growing. So will start HBO. Due to some pressure, possibly from the dressing, she has noted a new onset left posterior ankle ulceration and right posterior ankle ulceration. Progress of Wound: Bilateral legs skin graft surgery 08/02/17 with some compromise and new onset ulcers left posterior ankle and right posterior ankle. - Physical Exam Vital Signs Temp Pulse Resp BP 97.5 F L 71 16 143/101 H 09/12/17 11:01 09/12/17 11:01 09/12/17 11:01 02/26/18 11:01 Debridement Note Post-Debridement Measurements/Treatment WC - Nurse 2 - General Ulcer CM Notes Start: 08/22/17 10:34 Freq: Status: Active Protocol: Activity Type Activity Date Activity User E-Sign Co-Sign Detail Recorded Client Recorded Date Recorded By Document 08/22/17 11:54 [id number] 08/22/17 11:57 JF Document 08/29/17 12:06 DV [id number] 08/29/17 12:11 DV Document 09/12/17 11:41 [id number] 09/12/17 11:47 08/22/17 08/29/17 09/12/17 11:54 12:06 11:41 Wound Center Nurse 2 #10 R Med Ankle -Time 11:54 12:07 11:42 -Correct Patient Yes Yes Yes -Correct Side, Site, Position Yes Yes Yes -Correct Procedure Yes Yes Yes -Procedure Performed Yes Yes Yes -Type of Procedure Debridement Debridement Debridement -Clinical Debridement Selective Selective Subcutaneous -Post Debridement Size (cm) - Length 4.0 4.0 3.3 -Post Debridement Size (cm) - Width 4.5 3.9 3.7 -Post Debridement Size (cm) - Depth 0.4 0.4 0.3 -Total Square Cm 18.00 15.60 12.21 -Wound/Ulcer Outcome Not Healed Not Healed Not Healed -Ulcer Cleansing Rinsed/ Rinsed/ Rinsed/ Irrigated with Irrigated with Irrigated with Saline Saline Saline -Foul Odor after Cleansing No No No -Bioengineered Tissue No No No -Cetacaine [place] No -Bleeding Controlled with Pressure Pressure Pressure -Treatment Response Procedure Procedure Procedure Tolerated Well Tolerated Well Tolerated Well #6 R Sup [place] -Time 11:55 12:08 11:42 -Correct Patient Yes Yes Yes -Correct Side, Site, Position Yes Yes Yes -Correct Procedure Yes Yes Yes -Procedure Performed Yes Yes Yes -Type of Procedure Debridement Debridement Debridement -Clinical Debridement Selective Selective Subcutaneous -Post Debridement Size (cm) - Length 2.5 2.0 2 -Post Debridement Size (cm) - Width 2.5 2.0 1.8 -Post Debridement Size (cm) - Depth 0.5 0.6 0.6 -Total Square Cm 6.25 4.00 3.6 -Wound/Ulcer Outcome Not Healed Not Healed Not Healed -Ulcer Cleansing Rinsed/ Rinsed/ Rinsed/ Irrigated with Irrigated with Irrigated with Saline Saline Saline -Foul Odor after Cleansing No No No -Bioengineered Tissue No No No -Cetacaine [place] No -Bleeding Controlled with Pressure Pressure Pressure -Treatment Response Procedure Procedure Procedure Tolerated Well Tolerated Well Tolerated Well #5 R Lat Leg -Time 11:55 12:08 11:43 -Correct Patient Yes Yes Yes -Correct Side, Site, Position Yes Yes Yes -Correct Procedure Yes Yes Yes -Procedure Performed Yes Yes Yes -Type of Procedure Debridement Debridement Debridement -Clinical Debridement Selective Selective Subcutaneous -Post Debridement Size (cm) - Length 3.5 3.4 3 -Post Debridement Size (cm) - Width 2.7 2.4 1.8 -Post Debridement Size (cm) - Depth 0.5 0.4 0.7 -Total Square Cm 9.45 8.16 5.4 -Wound/Ulcer Outcome Not Healed Not Healed Not Healed -Ulcer Cleansing Rinsed/ Rinsed/ Rinsed/ Irrigated with Irrigated with Irrigated with Saline Saline Saline -Foul Odor after Cleansing No No No -Bioengineered Tissue No No No -Cetacaine [place] No -Bleeding Controlled with Pressure Pressure Pressure -Treatment Response Procedure Procedure Procedure Tolerated Well Tolerated Well Tolerated Well #4 L [place] -Time 11:55 12:09 11:43 -Correct Patient Yes Yes Yes -Correct Side, Site, Position Yes Yes Yes -Correct Procedure Yes Yes Yes -Procedure Performed Yes Yes Yes -Type of Procedure Debridement Debridement Debridement -Clinical Debridement Selective Selective Muscle -Post Debridement Size (cm) - Length 5.8 6.0 5.5 -Post Debridement Size (cm) - Width 5.3 5.0 4.6 -Post Debridement Size (cm) - Depth 0.4 0.6 0.5 -Total Square Cm 30.74 30.00 25.30 -Wound/Ulcer Outcome Not Healed Not Healed Not Healed -Ulcer Cleansing Rinsed/ Rinsed/ Rinsed/ Irrigated with Irrigated with Irrigated with Saline Saline Saline -Foul Odor after Cleansing No No No -Bioengineered Tissue No No No -Cetacaine [place] No -Bleeding Controlled with Pressure Pressure Pressure -Treatment Response Procedure Procedure Procedure Tolerated Well Tolerated Well Tolerated Well #3 L Lat Sup -Time 11:56 12:09 11:46 -Correct Patient Yes Yes Yes -Correct Side, Site, Position Yes Yes Yes -Correct Procedure Yes Yes Yes -Procedure Performed Yes Yes Yes -Type of Procedure Debridement Debridement Debridement -Clinical Debridement Selective Selective Subcutaneous -Post Debridement Size (cm) - Length 6.3 6.5 6 -Post Debridement Size (cm) - Width 4.5 3.6 3.2 -Post Debridement Size (cm) - Depth 0.4 0.2 0.6 -Total Square Cm 28.35 23.40 19.2 -Wound/Ulcer Outcome Not Healed Not Healed Not Healed -Ulcer Cleansing Rinsed/ Rinsed/ Rinsed/ Irrigated with Irrigated with Irrigated with Saline Saline Saline -Foul Odor after Cleansing No No No -Bioengineered Tissue No No No -Cetacaine [place] No -Bleeding Controlled with Pressure Pressure Pressure -Treatment Response Procedure Procedure Procedure Tolerated Well Tolerated Well Tolerated Well #1 L Post Leg -Time 11:56 12:10 11:46 -Correct Patient Yes Yes Yes -Correct Side, Site, Position Yes Yes Yes -Correct Procedure Yes Yes Yes -Procedure Performed Yes Yes Yes -Type of Procedure Debridement Debridement Debridement -Clinical Debridement Selective Selective Muscle -Post Debridement Size (cm) - Length 2.8 2.0 2.2 -Post Debridement Size (cm) - Width 2.6 3.5 1.8 -Post Debridement Size (cm) - Depth 0.3 0.2 0.6 -Total Square Cm 7.28 7.00 3.96 -Wound/Ulcer Outcome Not Healed Not Healed Not Healed -Ulcer Cleansing Rinsed/ Rinsed/ Rinsed/ Irrigated with Irrigated with Irrigated with Saline Saline Saline -Foul Odor after Cleansing No No No -Bioengineered Tissue No No No -Cetacaine [place] No -Bleeding Controlled with Pressure Pressure Pressure -Treatment Response Procedure Procedure Procedure Tolerated Well Tolerated Well Tolerated Well Pain Scale: 0-10 Numeric Is Patient Pain Free? Yes Yes Yes Wound debrided: #1 Left posterior leg skin graft. Laterality: Left Wound Grade/Stage: 2. Type of Debridement: Excisional debridement Anesthesia Used: 4% Lidocaine Solution Depth: Down to and including healthy tissue, in the subcutaneous layer, to muscle Percentage of wound debrided: 100 Instrument Used: 5mm curette Tissue Removed: subcutaneous tissue and muscle. Severity: Fat Layer Exposed - muscle is exposed. Amount of bleeding with debridement: Mild Bleeding Controlled with: Pressure Patient tolerated procedure well - Additional Wound Wound debrided: #3 Left lateral leg skin graft. Laterality: Left Wound Grade/Stage: 2. Patient tolerated procedure: - - The graft has healed. - Additional Wound Wound debrided: #4 Left anterior lower leg skin graft. Laterality: Left Wound Grade/Stage: 2. Type of Debridement: Excisional debridement Anesthesia Used: 4% Lidocaine Solution Depth: Down to and including healthy tissue, in the subcutaneous layer, to muscle Percentage of wound debrided: 100 Instrument Used: 5mm curette Tissue Removed: subcutaneous tissue and muscle. Severity: Fat Layer Exposed - muscle is exposed. Amount of bleeding with debridement: Mild Bleeding Controlled with: Pressure Patient tolerated procedure: Patient tolerated procedure well - Additional Wound Wound debrided: #5 Right lateral leg skin graft. Laterality: Right Wound Grade/Stage: 2. Type of Debridement: Excisional debridement Anesthesia Used: 4% Lidocaine Solution Depth: Down to and including healthy tissue, in the subcutaneous layer, to muscle Percentage of wound debrided: 100 Instrument Used: 5mm curette Tissue Removed: subcutaneous tissue and muscle. Severity: Fat Layer Exposed - muscle is exposed. Amount of bleeding with debridement: Mild Bleeding Controlled with: Pressure Patient tolerated procedure: Patient tolerated procedure well - Additional Wound Wound debrided: #6 Right anterior superior leg skin graft. Laterality: Right Wound Grade/Stage: 2. Type of Debridement: Excisional debridement Anesthesia Used: 4% Lidocaine Solution Depth: Down to and including healthy tissue, in the subcutaneous layer, to muscle Percentage of wound debrided: 100 Instrument Used: 5mm curette Tissue Removed: subcutaneous tissue and muscle. Severity: Fat Layer Exposed - muscle is exposed. Amount of bleeding with debridement: Mild Bleeding Controlled with: Pressure Patient tolerated procedure: Patient tolerated procedure well - Additional Wound Wound debrided: #10 Right lower leg/medial ankle. Laterality: Right Wound Grade/Stage: 2. Patient tolerated procedure: - - The graft has healed. - Additional Wound Wound debrided: #12 Left posterior ankle. Laterality: Left Wound Grade/Stage: 2. Type of Debridement: Excisional debridement Anesthesia Used: 4% Lidocaine Solution Depth: Down to and including healthy tissue, in the subcutaneous layer, to muscle Percentage of wound debrided: 100 Instrument Used: 5mm curette Tissue Removed: subcutaneous tissue and muscle. Severity: Fat Layer Exposed - muscle is exposed. Amount of bleeding with debridement: Mild Bleeding Controlled with: Pressure Patient tolerated procedure: Patient tolerated procedure well - Additional Wound Wound debrided: #13 Right posterior ankle. Laterality: Right Wound Grade/Stage: 2. Type of Debridement: Excisional debridement Anesthesia Used: 4% Lidocaine Solution Depth: Down to and including healthy tissue, in the subcutaneous layer, to muscle Percentage of wound debrided: 100 Instrument Used: 5mm curette Tissue Removed: subcutaneous tissue and muscle. Severity: Fat Layer Exposed - muscle is exposed. Amount of bleeding with debridement: Mild Bleeding Controlled with: Pressure Patient tolerated procedure: Patient tolerated procedure well Assessment/Plan Assessment: 1. Nonhealing ulcer left posterior leg. 2. Ulcer left lateral leg , healed. 3. Nonhealing ulcer left anterior lower leg. 4. Nonhealing ulcer right lateral leg. 5. Nonhealing ulcer right anterior superior leg. 6. Ulcer right lower leg/medial ankle, healed. 7. Brain tumor - receiving chemotherapy, on hold. 8. s/p excisional debridement nonhealing ulcer left posterior leg with STSG reconstruction from lower anterior abdominal wall (9 cm2 ) and excisional debridement nonhealing ulcer left lateral leg with STSG reconstruction from lower anterior abdominal wall (30.5 cm2) and excisional debridement nonhealing ulcer left anterior lower leg with STSG reconstruction from lower anterior abdominal wall (27 cm2) and excisional debridement nonhealing ulcer right lateral leg with STSG reconstruction from lower anterior abdominal wall (14.25 cm2) and excisional debridement nonhealing ulcer right anterior superior leg with STSG reconstruction from lower anterior abdominal wall (7 cm2) and excisional debridement nonhealing ulcer right lower leg/medial ankle with STSG reconstruction from lower anterior abdominal wall (24.5 cm2). 9. Early compromise to skin grafts bilateral leg ulcers with the biggest compromise to the left anterior lower leg graft. 10. Nonhealing ulcer left posterior ankle. 11. Nonhealing ulcer right posterior ankle. Plan: Continue Silvercel daily to the grafts with Surepress compression. Also apply Silver to the two new onset ulcers in the left posterior ankle and right posterior ankle. The Silver is starting to dry out the ulcers. Will add Adaptic to the ulcers. It will also help the tendons from drying out as well. Her abdominal wall donor incision is healing satisfactory. 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 With her compromised skin grafts, she needs HBO treatments to help salvage the compromise. It has been approved. Chemotherapy continues to be on hold because of the skin graft compromise. An MRI was done to evaluate the brain cancer before starting HBO, and according to [facility], the MRI was ok as the cancer has stabilized and is not actively growing at this time. She has started HBO treatments and is tolerating them thus far. Followup 2 weeks. Her Prealbumin from 07/30/17 was 22.5. She takes nutritional supplementation with protein to help the healing process. Renewed her Percocet for pain, one tab (30 tabs).
== END 2017-09-14 23:59 ==
LOC: WC 11:00
PROVIDERS: Family Provider Student in an Organized Health Care Education/Training Program; PCP Student in an Organized Health Care Education/Training Program; Visit Provider Surgery
DX: T86.821 Skin graft (allograft) (autograft) failure (principal); Y83.8 Other surgical procedures as the cause of abnormal reaction of the patient, or of later complication, without mention of misadventure at the time of the procedure; D49.6 Neoplasm of unspecified behavior of brain; Z79.899 Other long term (current) drug therapy; L97.321 Non-pressure chronic ulcer of left ankle limited to breakdown of skin; L97.311 Non-pressure chronic ulcer of right ankle limited to breakdown of skin
CPT/HCPCS: 11042; 11043; 11045; 11046; 97597; 97598; 99212; 99213; G0463

== ENCOUNTER 2017-10-14 13:00 | Outpatient (RCR) | payer BC, SELFPAY ==
[2017-09-15 01:03] VITALS: BP 108/70; PULSE 71; RESP 16; TEMP 36.4
[2017-09-27 16:18] VITALS: BP 122/81; PULSE 53; RESP 18; TEMP 36
--- NOTE | 2017-09-27 22:14 | PN.PCM_ITS ---
Type of Wound Date of Service: 09/27/17 Chief Complaint: Nonhealing ulcers bilateral legs s/p skin grafting with some compromise and new onset ulcers left posterior ankle and right posterior ankle. History of Wound: Surgery 08/02/17 - 1. Excisional debridement nonhealing ulcer left posterior leg with STSG reconstruction from lower anterior abdominal wall ( 9 cm2). 2. Excisional debridement nonhealing ulcer left lateral leg with STSG reconstruction from lower anterior abdominal wall (30.5 cm2). 3. Excisional debridement nonhealing ulcer left anterior lower leg with STSG reconstruction from lower anterior abdominal wall (27 cm2). 4. Excisional debridement nonhealing ulcer right lateral leg with STSG reconstruction from lower anterior abdominal wall (14.25 cm2). 5. Excisional debridement nonhealing ulcer right anterior superior leg with STSG reconstruction from lower anterior abdominal wall (7 cm2). 6. Excisional debridement nonhealing ulcer right lower leg/ medial ankle with STSG reconstruction from lower anterior abdominal wall (24.5 cm2). Wound care - Silver with Adaptic and NICKY wrap for compression. Operative culture - Enterococcus faecium. She was treated with Vancomycin and was discharged on Zyvox and has finished them (Insurance would not approve any more). Prealbumin from 07/30/17 was 22.5. She takes nutritional supplementation with protein to help the healing process. Today she denies fever. Her appetite is good. She states the wound care is more tolerable with the addition of Duragesic Patch, Valium, Dilaudid, and Neurontin. We are weaning off the Dilaudid and changing to OxyIR. With her skin graft compromise , she would benefit from HBO treatments. We obtained an MRI prior to starting HBO to evaluate the status of the brain cancer. [facility] looked at it and stated the cancer was stable and not actively growing. So will start HBO. Due to some pressure, possibly from the dressing, she has noted a new onset left posterior ankle ulceration and right posterior ankle ulceration. Progress of Wound: Bilateral legs skin graft surgery 08/02/17 with some compromise. - Physical Exam Vital Signs Temp Pulse Resp BP 96.8 F L 53 L 18 122/81 H 09/27/17 16:18 09/27/17 16:18 09/27/17 16:18 09/27/17 16:18 Wound Measurements and Assessment WC - Nurse 1 - General Ulcer Measurement Start: 09/27/17 13:10 Freq: Status: Active Protocol: Activity Type Activity Date Activity User E-Sign Co-Sign Detail Recorded Client Recorded Date Recorded By Document 09/27/17 16:18 TM [id number] 09/27/17 16:36 TM 09/27/17 16:18 Wound Center Nurse 1 [Ulcer Assessment] #13 R Achilles -Current Size (cm) - Length 2.5 -Current Size (cm) - Width 1 -Current Size (cm) - Depth 0.1 -Total Square Cm 2.5 -Photo Taken Yes -Exudate Amt Medium (34-66%) -Exudate Type Serosanguineous -Wound Margin Distinct, Outline Attached -Granulation Amt Medium (34-66%) -Granulation Quality [place] -Necrosis Amt Medium (34-66%) -Necrotic Tissue Type Adherent Slough -Structure Exposed N/A -Texture (Riddhi-wound Skin Appearance) Localized Edema Scarring -Moisture (Riddhi-wound Skin Appearance No Abnormality ) -Color (Riddhi-wound Skin Appearance) Erythema -Temperature (Riddhi-wound Skin No Abnormality Appearance) (Pt Warm) -Ulcer Cleansing Wound Cleanser -Foul Odor after Cleansing No -Anesthetic Used 4% Lidocaine Solution #12 L Achilles -Current Size (cm) - Length 1.5 -Current Size (cm) - Width 1.1 -Current Size (cm) - Depth 0.1 -Total Square Cm 1.65 -Photo Taken Yes -Exudate Amt Medium (34-66%) -Exudate Type Serosanguineous -Wound Margin Distinct, Outline Attached -Granulation Amt Medium (34-66%) -Granulation Quality Red -Necrosis Amt Medium (34-66%) -Necrotic Tissue Type Adherent Slough -Structure Exposed N/A -Texture (Riddhi-wound Skin Appearance) Localized Edema Scarring -Moisture (Riddhi-wound Skin Appearance No Abnormality ) -Color (Riddhi-wound Skin Appearance) Ecchymosis Erythema Rubor -Ulcer Cleansing Wound Cleanser -Foul Odor after Cleansing No -Anesthetic Used 4% Lidocaine Solution #10 R Med Ankle -Current Size (cm) - Length 3.7 -Current Size (cm) - Width 4.6 -Current Size (cm) - Depth 0.3 -Total Square Cm 17.02 -Photo Taken Yes -Exudate Amt Small (1-33%) -Exudate Type Serosanguineous -Wound Margin Distinct, Outline Attached -Granulation Amt Medium (34-66%) -Granulation Quality [place] Red -Necrosis Amt Medium (34-66%) -Necrotic Tissue Type Adherent Slough -Structure Exposed N/A -Texture (Riddhi-wound Skin Appearance) Scarring -Moisture (Riddhi-wound Skin Appearance No Abnormality ) -Color (Riddhi-wound Skin Appearance) Hemosiderin Staining -Temperature (Riddhi-wound Skin No Abnormality Appearance) (Pt Warm) -Tenderness on Palpation (Riddhi-wound No Skin Appearance) -Ulcer Cleansing Rinsed/ Irrigated with Saline -Foul Odor after Cleansing No -Anesthetic Used 4% Lidocaine Solution #6 R Sup [place] -Current Size (cm) - Length 2.2 -Current Size (cm) - Width 1.8 -Current Size (cm) - Depth 0.2 -Total Square Cm 3.96 -Photo Taken Yes -Maximum Distance #2 (cm) 1.2 -Circular Undermining Yes -Exudate Amt Small (1-33%) -Exudate Type Serosanguineous -Wound Margin Thickened & Rolled Under -Granulation Amt Medium (34-66%) -Granulation Quality [place] -Necrosis Amt Medium (34-66%) -Necrotic Tissue Type Adherent Slough -Structure Exposed N/A -Texture (Riddhi-wound Skin Appearance) Scarring -Moisture (Riddhi-wound Skin Appearance No Abnormality ) -Color (Riddhi-wound Skin Appearance) Hemosiderin Staining -Temperature (Riddhi-wound Skin No Abnormality Appearance) (Pt Warm) -Tenderness on Palpation (Riddhi-wound No Skin Appearance) -Ulcer Cleansing Wound Cleanser -Foul Odor after Cleansing No -Anesthetic Used 4% Lidocaine Solution #5 R Lat Leg -Current Size (cm) - Length 2.6 -Current Size (cm) - Width 1.6 -Current Size (cm) - Depth 0.2 -Total Square Cm 4.16 -Photo Taken Yes -Maximum Distance #2 (cm) 0.3 -Circular Undermining Yes -Exudate Amt Small (1-33%) -Exudate Type Serosanguineous -Wound Margin Thickened & Rolled Under -Granulation Amt Large (67-100%) -Granulation Quality [place] Red -Necrosis Amt Small (1-33%) -Necrotic Tissue Type Adherent Slough -Structure Exposed N/A -Texture (Riddhi-wound Skin Appearance) Scarring -Moisture (Riddhi-wound Skin Appearance Dry/Scaly ) -Color (Riddhi-wound Skin Appearance) Hemosiderin Staining -Temperature (Riddhi-wound Skin No Abnormality Appearance) (Pt Warm) -Ulcer Cleansing Wound Cleanser -Foul Odor after Cleansing No -Anesthetic Used 4% Lidocaine Solution #4 L Lower [place] -Current Size (cm) - Length 5.6 -Current Size (cm) - Width 4.4 -Current Size (cm) - Depth 0.3 -Total Square Cm 24.64 -Photo Taken Yes -Maximum Distance #2 (cm) 0.3 -Circular Undermining Yes -Exudate Amt Small (1-33%) -Exudate Type Serosanguineous -Wound Margin Thickened & Rolled Under -Granulation Amt Large (67-100%) -Granulation Quality Red -Necrosis Amt None Present (0 %) -Structure Exposed Tendon -Texture (Riddhi-wound Skin Appearance) Scarring -Moisture (Riddhi-wound Skin Appearance No Abnormality ) -Color (Riddhi-wound Skin Appearance) Hemosiderin Staining -Temperature (Riddhi-wound Skin No Abnormality Appearance) (Pt Warm) -Tenderness on Palpation (Riddhi-wound No Skin Appearance) -Ulcer Cleansing Wound Cleanser -Foul Odor after Cleansing No -Anesthetic Used 4% Lidocaine Solution #3 L Lat Sup -Current Size (cm) - Length 0.2 -Current Size (cm) - Width 0.6 -Current Size (cm) - Depth 0.1 -Total Square Cm 0.12 -Photo Taken Yes -Exudate Amt Small (1-33%) -Exudate Type Serosanguineous -Wound Margin Thickened & Rolled Under -Granulation Amt Small (1-33%) -Granulation Quality [place] -Necrosis Amt Small (1-33%) -Necrotic Tissue Type Adherent Slough -Structure Exposed N/A -Texture (Riddhi-wound Skin Appearance) Scarring -Moisture (Riddhi-wound Skin Appearance No Abnormality ) -Color (Riddhi-wound Skin Appearance) Hemosiderin Staining -Temperature (Riddhi-wound Skin No Abnormality Appearance) (Pt Warm) -Tenderness on Palpation (Riddhi-wound No Skin Appearance) -Ulcer Cleansing Wound Cleanser -Foul Odor after Cleansing No -Anesthetic Used 4% Lidocaine Solution #1 L Post Leg -Current Size (cm) - Length 2 -Current Size (cm) - Width 2 -Current Size (cm) - Depth 0.3 -Total Square Cm 4 -Photo Taken Yes -Undermining/Tunneling Starts (O' 10 clock) -Undermining/Tunneling Ends (O'clock) 2 -Maximum Distance (cm) 1.4 -Exudate Amt Small (1-33%) -Exudate Type Serosanguineous -Wound Margin Thickened & Rolled Under -Granulation Amt Large (67-100%) -Granulation Quality [place] -Necrosis Amt Small (1-33%) -Necrotic Tissue Type Adherent Slough -Structure Exposed Tendon -Texture (Riddhi-wound Skin Appearance) Scarring -Moisture (Riddhi-wound Skin Appearance No Abnormality ) -Color (Riddhi-wound Skin Appearance) Hemosiderin Staining -Temperature (Riddhi-wound Skin No Abnormality Appearance) (Pt Warm) -Tenderness on Palpation (Riddhi-wound No Skin Appearance) -Ulcer Cleansing Wound Cleanser -Foul Odor after Cleansing No -Anesthetic Used 4% Lidocaine Solution [Edema Assessment] -Right Calf (cm) 35 -Right Ankle (cm) 20.8 -Left Calf (cm) 35.5 -Left Ankle (cm) 22 WC - Nurse 2 - General Ulcer CM Notes Start: 09/27/17 13:10 Freq: Status: Active Protocol: Activity Type Activity Date Activity User E-Sign Co-Sign Detail Recorded Client Recorded Date Recorded By Document 09/27/17 16:51 RANDY [id number] 09/27/17 16:56 RANDY 09/27/17 16:51 Wound Center Nurse 2 [Procedure/Treatment] #13 R Achilles -Time 16:53 -Correct Patient Yes -Correct Side, Site, Position Yes -Correct Procedure Yes -Procedure Performed Yes -Type of Procedure Debridement -Clinical Debridement Muscle -Post Debridement Size (cm) - Length 2.5 -Post Debridement Size (cm) - Width 1.1 -Post Debridement Size (cm) - Depth 0.1 -Total Square Cm 2.75 -Wound/Ulcer Outcome Not Healed -Ulcer Cleansing Rinsed/ Irrigated with Saline -Foul Odor after Cleansing No -Bioengineered Tissue No -Bleeding Controlled with Pressure -Treatment Response Procedure Tolerated Well #12 L Achilles -Time 16:53 -Correct Patient Yes -Correct Side, Site, Position Yes -Correct Procedure Yes -Procedure Performed Yes -Type of Procedure Debridement -Clinical Debridement Muscle -Post Debridement Size (cm) - Length 1.5 -Post Debridement Size (cm) - Width 1.2 -Post Debridement Size (cm) - Depth 0.1 -Total Square Cm 1.80 -Wound/Ulcer Outcome Not Healed -Ulcer Cleansing Rinsed/ Irrigated with Saline -Foul Odor after Cleansing No -Bioengineered Tissue No -Bleeding Controlled with Pressure -Treatment Response Procedure Tolerated Well #10 R Med Ankle -Time 16:53 -Correct Patient Yes -Correct Side, Site, Position Yes -Correct Procedure Yes -Procedure Performed Yes -Type of Procedure Debridement -Clinical Debridement Muscle -Post Debridement Size (cm) - Length 3.8 -Post Debridement Size (cm) - Width 4.6 -Post Debridement Size (cm) - Depth 0.3 -Total Square Cm 17.48 -Wound/Ulcer Outcome Not Healed -Ulcer Cleansing Rinsed/ Irrigated with Saline -Foul Odor after Cleansing No -Bioengineered Tissue No -Bleeding Controlled with Pressure -Treatment Response Procedure Tolerated Well #6 R Sup [place] -Time 16:54 -Correct Patient Yes -Correct Side, Site, Position Yes -Correct Procedure Yes -Procedure Performed Yes -Type of Procedure Debridement -Clinical Debridement Muscle -Post Debridement Size (cm) - Length 2.3 -Post Debridement Size (cm) - Width 1.8 -Post Debridement Size (cm) - Depth 0.2 -Total Square Cm 4.14 -Wound/Ulcer Outcome Not Healed -Ulcer Cleansing Rinsed/ Irrigated with Saline -Foul Odor after Cleansing No -Bioengineered Tissue No -Bleeding Controlled with Pressure -Treatment Response Procedure Tolerated Well #5 R Lat Leg -Time 16:54 -Correct Patient Yes -Correct Side, Site, Position Yes -Correct Procedure Yes -Procedure Performed Yes -Type of Procedure Debridement -Clinical Debridement Muscle -Post Debridement Size (cm) - Length 2.6 -Post Debridement Size (cm) - Width 1.7 -Post Debridement Size (cm) - Depth 0.2 -Total Square Cm 4.42 -Wound/Ulcer Outcome Not Healed -Ulcer Cleansing Rinsed/ Irrigated with Saline -Foul Odor after Cleansing No -Bioengineered Tissue No -Bleeding Controlled with Pressure -Treatment Response Procedure Tolerated Well #4 L Lower [place] -Time 16:54 -Correct Patient Yes -Correct Side, Site, Position Yes -Correct Procedure Yes -Procedure Performed Yes -Type of Procedure Debridement -Clinical Debridement Muscle -Post Debridement Size (cm) - Length 4.6 -Post Debridement Size (cm) - Width 4.5 -Post Debridement Size (cm) - Depth 0.3 -Total Square Cm 20.70 -Wound/Ulcer Outcome Not Healed -Ulcer Cleansing Rinsed/ Irrigated with Saline -Foul Odor after Cleansing No -Bioengineered Tissue No -Bleeding Controlled with Pressure -Treatment Response Procedure Tolerated Well #3 L Lat Sup -Time 16:55 -Correct Patient Yes -Correct Side, Site, Position Yes -Correct Procedure Yes -Procedure Performed Yes -Type of Procedure Debridement -Clinical Debridement Muscle -Post Debridement Size (cm) - Length 0.3 -Post Debridement Size (cm) - Width 0.6 -Post Debridement Size (cm) - Depth 0.1 -Total Square Cm 0.18 -Wound/Ulcer Outcome Not Healed -Ulcer Cleansing Rinsed/ Irrigated with Saline -Foul Odor after Cleansing No -Bioengineered Tissue No -Bleeding Controlled with Pressure -Treatment Response Procedure Tolerated Well #1 L Post Leg -Time 16:55 -Correct Patient Yes -Correct Side, Site, Position Yes -Correct Procedure Yes -Procedure Performed Yes -Type of Procedure Debridement -Clinical Debridement Muscle -Post Debridement Size (cm) - Length 2 -Post Debridement Size (cm) - Width 2.1 -Post Debridement Size (cm) - Depth 0.3 -Total Square Cm 4.2 -Wound/Ulcer Outcome Not Healed -Ulcer Cleansing Rinsed/ Irrigated with Saline -Foul Odor after Cleansing No -Bioengineered Tissue No -Bleeding Controlled with Pressure -Treatment Response Procedure Tolerated Well [See Physician Procedure note for Specifics] Pain Scale: 0-10 Numeric [Pain] -Is Patient Pain Free? Yes Debridement Note Post-Debridement Measurements/Treatment WC - Nurse 2 - General Ulcer CM Notes Start: 09/27/17 13:10 Freq: Status: Active Protocol: Activity Type Activity Date Activity User E-Sign Co-Sign Detail Recorded Client Recorded Date Recorded By Document 09/27/17 16:51 RANDY [id number] 09/27/17 16:56 RANDY 09/27/17 16:51 Wound Center Nurse 2 #13 R Achilles -Time 16:53 -Correct Patient Yes -Correct Side, Site, Position Yes -Correct Procedure Yes -Procedure Performed Yes -Type of Procedure Debridement -Clinical Debridement Muscle -Post Debridement Size (cm) - Length 2.5 -Post Debridement Size (cm) - Width 1.1 -Post Debridement Size (cm) - Depth 0.1 -Total Square Cm 2.75 -Wound/Ulcer Outcome Not Healed -Ulcer Cleansing Rinsed/ Irrigated with Saline -Foul Odor after Cleansing No -Bioengineered Tissue No -Bleeding Controlled with Pressure -Treatment Response Procedure Tolerated Well #12 L Achilles -Time 16:53 -Correct Patient Yes -Correct Side, Site, Position Yes -Correct Procedure Yes -Procedure Performed Yes -Type of Procedure Debridement -Clinical Debridement Muscle -Post Debridement Size (cm) - Length 1.5 -Post Debridement Size (cm) - Width 1.2 -Post Debridement Size (cm) - Depth 0.1 -Total Square Cm 1.80 -Wound/Ulcer Outcome Not Healed -Ulcer Cleansing Rinsed/ Irrigated with Saline -Foul Odor after Cleansing No -Bioengineered Tissue No -Bleeding Controlled with Pressure -Treatment Response Procedure Tolerated Well #10 R Med Ankle -Time 16:53 -Correct Patient Yes -Correct Side, Site, Position Yes -Correct Procedure Yes -Procedure Performed Yes -Type of Procedure Debridement -Clinical Debridement Muscle -Post Debridement Size (cm) - Length 3.8 -Post Debridement Size (cm) - Width 4.6 -Post Debridement Size (cm) - Depth 0.3 -Total Square Cm 17.48 -Wound/Ulcer Outcome Not Healed -Ulcer Cleansing Rinsed/ Irrigated with Saline -Foul Odor after Cleansing No -Bioengineered Tissue No -Bleeding Controlled with Pressure -Treatment Response Procedure Tolerated Well #6 R Sup [place] -Time 16:54 -Correct Patient Yes -Correct Side, Site, Position Yes -Correct Procedure Yes -Procedure Performed Yes -Type of Procedure Debridement -Clinical Debridement Muscle -Post Debridement Size (cm) - Length 2.3 -Post Debridement Size (cm) - Width 1.8 -Post Debridement Size (cm) - Depth 0.2 -Total Square Cm 4.14 -Wound/Ulcer Outcome Not Healed -Ulcer Cleansing Rinsed/ Irrigated with Saline -Foul Odor after Cleansing No -Bioengineered Tissue No -Bleeding Controlled with Pressure -Treatment Response Procedure Tolerated Well #5 R Lat Leg -Time 16:54 -Correct Patient Yes -Correct Side, Site, Position Yes -Correct Procedure Yes -Procedure Performed Yes -Type of Procedure Debridement -Clinical Debridement Muscle -Post Debridement Size (cm) - Length 2.6 -Post Debridement Size (cm) - Width 1.7 -Post Debridement Size (cm) - Depth 0.2 -Total Square Cm 4.42 -Wound/Ulcer Outcome Not Healed -Ulcer Cleansing Rinsed/ Irrigated with Saline -Foul Odor after Cleansing No -Bioengineered Tissue No -Bleeding Controlled with Pressure -Treatment Response Procedure Tolerated Well #4 L Lower [place] -Time 16:54 -Correct Patient Yes -Correct Side, Site, Position Yes -Correct Procedure Yes -Procedure Performed Yes -Type of Procedure Debridement -Clinical Debridement Muscle -Post Debridement Size (cm) - Length 4.6 -Post Debridement Size (cm) - Width 4.5 -Post Debridement Size (cm) - Depth 0.3 -Total Square Cm 20.70 -Wound/Ulcer Outcome Not Healed -Ulcer Cleansing Rinsed/ Irrigated with Saline -Foul Odor after Cleansing No -Bioengineered Tissue No -Bleeding Controlled with Pressure -Treatment Response Procedure Tolerated Well #3 L Lat Sup -Time 16:55 -Correct Patient Yes -Correct Side, Site, Position Yes -Correct Procedure Yes -Procedure Performed Yes -Type of Procedure Debridement -Clinical Debridement Muscle -Post Debridement Size (cm) - Length 0.3 -Post Debridement Size (cm) - Width 0.6 -Post Debridement Size (cm) - Depth 0.1 -Total Square Cm 0.18 -Wound/Ulcer Outcome Not Healed -Ulcer Cleansing Rinsed/ Irrigated with Saline -Foul Odor after Cleansing No -Bioengineered Tissue No -Bleeding Controlled with Pressure -Treatment Response Procedure Tolerated Well #1 L Post Leg -Time 16:55 -Correct Patient Yes -Correct Side, Site, Position Yes -Correct Procedure Yes -Procedure Performed Yes -Type of Procedure Debridement -Clinical Debridement Muscle -Post Debridement Size (cm) - Length 2 -Post Debridement Size (cm) - Width 2.1 -Post Debridement Size (cm) - Depth 0.3 -Total Square Cm 4.2 -Wound/Ulcer Outcome Not Healed -Ulcer Cleansing Rinsed/ Irrigated with Saline -Foul Odor after Cleansing No -Bioengineered Tissue No -Bleeding Controlled with Pressure -Treatment Response Procedure Tolerated Well Pain Scale: 0-10 Numeric Is Patient Pain Free? Yes Wound debrided: #1 Left posterior leg skin graft. Laterality: Left Wound Grade/Stage: 2. Type of Debridement: Excisional debridement Anesthesia Used: 4% Lidocaine Solution Depth: Down to and including healthy tissue, in the subcutaneous layer, to muscle Percentage of wound debrided: 100 Instrument Used: 5mm curette Tissue Removed: subcutaneous tissue and muscle. Severity: Fat Layer Exposed - muscle is exposed. Amount of bleeding with debridement: Mild Bleeding Controlled with: Pressure Patient tolerated procedure well - Additional Wound Wound debrided: #3 Left lateral leg skin graft. Laterality: Left Wound Grade/Stage: 2. Type of Debridement: Excisional debridement Anesthesia Used: 4% Lidocaine Solution Depth: Down to and including healthy tissue, in the subcutaneous layer, to muscle Percentage of wound debrided: 100 Instrument Used: 5mm curette Tissue Removed: subcutaneous tissue and muscle. Severity: Fat Layer Exposed - muscle is exposed. Amount of bleeding with debridement: Mild Bleeding Controlled with: Pressure Patient tolerated procedure: Patient tolerated procedure well - Additional Wound Wound debrided: #4 Left anterior lower leg skin graft. Laterality: Left Wound Grade/Stage: 2. Type of Debridement: Excisional debridement Anesthesia Used: 4% Lidocaine Solution Depth: Down to and including healthy tissue, in the subcutaneous layer, to muscle Percentage of wound debrided: 100 Instrument Used: 5mm curette Tissue Removed: subcutaneous tissue and muscle. Severity: Fat Layer Exposed - muscle is exposed. Amount of bleeding with debridement: Mild Bleeding Controlled with: Pressure Patient tolerated procedure: Patient tolerated procedure well - Additional Wound Wound debrided: #5 Right lateral leg skin graft. Laterality: Right Wound Grade/Stage: 2. Type of Debridement: Excisional debridement Anesthesia Used: 4% Lidocaine Solution Depth: Down to and including healthy tissue, in the subcutaneous layer, to muscle Percentage of wound debrided: 100 Instrument Used: 5mm curette Tissue Removed: subcutaneous tissue and muscle. Severity: Fat Layer Exposed - muscle is exposed. Amount of bleeding with debridement: Mild Bleeding Controlled with: Pressure Patient tolerated procedure: Patient tolerated procedure well - Additional Wound Wound debrided: #6 Right anterior superior leg skin graft. Laterality: Right Wound Grade/Stage: 2. Type of Debridement: Excisional debridement Anesthesia Used: 4% Lidocaine Solution Depth: Down to and including healthy tissue, in the subcutaneous layer, to muscle Percentage of wound debrided: 100 Instrument Used: 5mm curette Tissue Removed: subcutaneous tissue and muscle. Severity: Fat Layer Exposed - muscle is exposed. Amount of bleeding with debridement: Mild Bleeding Controlled with: Pressure Patient tolerated procedure: Patient tolerated procedure well - Additional Wound Wound debrided: #10 Right lower leg/medial ankle skin graft. Laterality: Right Wound Grade/Stage: 2. Type of Debridement: Excisional debridement Anesthesia Used: 4% Lidocaine Solution Depth: Down to and including healthy tissue, in the subcutaneous layer, to muscle Percentage of wound debrided: 100 Instrument Used: 5mm curette Tissue Removed: subcutaneous tissue and muscle. Severity: Fat Layer Exposed - muscle is exposed. Amount of bleeding with debridement: Mild Bleeding Controlled with: Pressure Patient tolerated procedure: Patient tolerated procedure well - Additional Wound Wound debrided: #12 Left posterior ankle. Laterality: Left Wound Grade/Stage: 2. Type of Debridement: Excisional debridement Anesthesia Used: 4% Lidocaine Solution Depth: Down to and including healthy tissue, in the subcutaneous layer, to muscle Percentage of wound debrided: 100 Instrument Used: 5mm curette Tissue Removed: subcutaneous tissue and muscle. Severity: Fat Layer Exposed - muscle is exposed. Amount of bleeding with debridement: Mild Bleeding Controlled with: Pressure Patient tolerated procedure: Patient tolerated procedure well - Additional Wound Wound debrided: #13 Right posterior ankle. Laterality: Right Wound Grade/Stage: 2. Type of Debridement: Excisional debridement Anesthesia Used: 4% Lidocaine Solution Depth: Down to and including healthy tissue, in the subcutaneous layer, to muscle Percentage of wound debrided: 100 Instrument Used: 5mm curette Tissue Removed: subcutaneous tissue and muscle. Severity: Fat Layer Exposed - muscle is exposed. Amount of bleeding with debridement: Mild Bleeding Controlled with: Pressure Patient tolerated procedure: Patient tolerated procedure well Assessment/Plan Assessment: 1. Nonhealing ulcer left posterior leg. 2. Nonhealing ulcer left lateral leg. 3. Nonhealing ulcer left anterior lower leg. 4. Nonhealing ulcer right lateral leg. 5. Nonhealing ulcer right anterior superior leg. 6. Nonhealing ulcer right lower leg/medial ankle. 7. Brain tumor - receiving chemotherapy, on hold. 8. s/p excisional debridement nonhealing ulcer left posterior leg with STSG reconstruction from lower anterior abdominal wall (9 cm2 ) and excisional debridement nonhealing ulcer left lateral leg with STSG reconstruction from lower anterior abdominal wall (30.5 cm2) and excisional debridement nonhealing ulcer left anterior lower leg with STSG reconstruction from lower anterior abdominal wall (27 cm2) and excisional debridement nonhealing ulcer right lateral leg with STSG reconstruction from lower anterior abdominal wall (14.25 cm2) and excisional debridement nonhealing ulcer right anterior superior leg with STSG reconstruction from lower anterior abdominal wall (7 cm2) and excisional debridement nonhealing ulcer right lower leg/medial ankle with STSG reconstruction from lower anterior abdominal wall (24.5 cm2). 9. Early compromise to skin grafts bilateral leg ulcers with the biggest compromise to the left anterior lower leg graft. 10. Nonhealing ulcer left posterior ankle. 11. Nonhealing ulcer right posterior ankle. Plan: Continue Silvercel daily to the grafts with Surepress compression. Also apply Silver to the two new onset ulcers in the left posterior ankle and right posterior ankle. The Silver is starting to dry out the ulcers. Will add Adaptic to the ulcers. It will also help the tendons from drying out as well. Her abdominal wall donor incision is healing satisfactory. 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 With her compromised skin grafts, she needs HBO treatments to help salvage the compromise. It has been approved. Chemotherapy continues to be on hold because of the skin graft compromise. An MRI was done to evaluate the brain cancer before starting HBO, and according to [facility], the MRI was ok as the cancer has stabilized and is not actively growing at this time. Followup 2 weeks. Her Prealbumin from 07/30/17 was 22.5. She takes nutritional supplementation with protein to help the healing process. Renewed her Neurontin for burning nerve pain (90 tabs) and 2 refills. Renewed her OxyIR for pain (40 tabs).
--- NOTE | 2017-09-28 14:55 | NURSING ---
Call placed to pts daughter, Chanelle Vega, by this nurse at 1040 to discuss HBO scheduling. There was no answer so message left to return call.
[2017-10-03 13:34] VITALS: BP 132/83; BP 135/69; PULSE 53; PULSE 54; RESP 18; TEMP 35.7; TEMP 37.2
--- NOTE | 2017-10-03 15:35 | PCM.HBO.PN ---
History of Present Illness Date of Service: 10/03/17 Presenting Chief Complaint: Compromised skin grafts in both lower extremities. GEORGINA SKINNER is a 57 year old currently undergoing hyperbaric oxygen therapy for compromised skin grafts of the lower extremities. Progress: Hyperbaric oxygen therapy was administered today, and was well tolerated by the patient. Tolerance of hyperbaric oxygen therapy: Hyperbaric oxygen therapy was administered as per the facility's protocol. Today's hyperbaric oxygen treatment represents the first such treatment. The patient tolerated hyperbaric oxygen therapy well, without significant complications. She did briefly and transiently experience minor barotrauma, complaining of slight discomfort in her ear. This resolved uneventfully. The hyperbaric oxygen treatment was completed in its entirety. Upon emergence from the hyperbaric chamber, patient's vital signs were noted to be stable. She was discharged in good condition. Past Medical History Chronic Problems (Last Updated 06/28/17 @ 11:52 by Israel Anne DO) Glioblastoma multiforme (Chronic) Allergies/Adverse Reactions: Allergies adhesive tape Adverse Reaction (Verified 06/24/17 09:09) VERY THIN STEROID SKIN WILL REMOVE SKIN IF ON TOO LONG Home Medications: Ambulatory Orders Medication Instructions Recorded Cholecalciferol (Vitamin D3) 5,000 unit PO DAILY 03/02/17 [Vitamin D3] Dexamethasone 3 mg PO DAILY 03/02/17 Famotidine [Pepcid] 20 mg PO BID 03/02/17 Multivitamin [Daily Multiple 1 each PO DAILY 03/02/17 Vitamin] Ondansetron [Zofran] 8 mg PO Q8H PRN PRN 03/02/17 Levetiracetam 750 mg PO BID 05/03/17 Lisinopril 1 tablet PO DAILY 05/03/17 Acetaminophen [Tylenol Tablet] 650 mg PO Q6H PRN PRN tablet 06/28/17 Calcium (Elemental) [Os-Guido 500] 500 mg PO DAILY 07/08/17 Lactobacillus Acidophilus 1 each PO DAILY 07/08/17 [Acidophilus Lactobacilli] Magnesium Hydroxide [Milk Of 30 ml PO DAILY PRN PRN 07/08/17 Magnesia] ProMETHAzine [Phenergan] 25 mg PO Q4H PRN PRN 07/08/17 Bisacodyl 10 mg RECTAL QHS PRN PRN #30 08/15/17 supp.rect Diazepam [Valium] 5 mg PO 4X/DAY PRN PRN #30 tab 08/15/17 HYDROmorphone tablet [Dilaudid] 2 - 4 mg PO 4X/DAY PRN PRN #50 tab 08/15/17 Nutritional Supplement [Rodger - 1 packet PO BIDCM #60 packet 08/15/17 ORANGE FLAVOR] Polyethylene Glycol 3350 [Miralax] 17 gm PO DAILY #30 packet 08/15/17 Potassium Chloride [K-Dur] 20 meq PO DAILYCM #30 tab 08/15/17 fentaNYL patch [Duragesic patch] 50 mcg TRANSDERM. Q3D@1000 #5 patch 08/15/17 Diazepam [Valium] 5 mg PO BID PRN 10 Days #29 tab 08/17/17 Gabapentin [Neurontin] 300 mg PO BIDCM 30 Days #60 08/17/17 HYDROmorphone tablet [Dilaudid] 2 mg PO 4X/DAY PRN PRN 7 Days #30 08/17/17 tab Linezolid [Zyvox] 600 mg PO BID 14 Days #28 tab 08/17/17 fentaNYL patch [Duragesic] 25 mcg TRANSDERM. Q72H #5 patch 08/17/17 0.9 % Sodium Chloride [Saline 210 ml MC .QDAILY 30 Days #10 08/18/17 Wound Wash] bottle Gauze Bandage [Gauze Pads] 6 ea TP .QDAILY 30 Days #180 08/18/17 bandage Gauze Bandage [Rolled Gauze] 2 ea TP .QDAILY 30 Days #60 bandage 08/18/17 Gloves [Nitrile Exam Gloves] 1 pair MC .QDAILY 30 Days #2 box 08/18/17 Silver/Hydrocolloid Dressing 2 ea TP .QDAILY 30 Days #60 bandage 08/18/17 [Aquacel-Ag W-Hydrofiber Dress] Maternal Family History: No pertinent history Paternal Family History: No pertinent history Smoking Status: Never smoker Physical Exam Vital Signs Temp Pulse Resp BP 96.2 F L 53 L 18 132/83 H 10/03/17 13:34 10/03/17 13:34 10/03/17 13:34 10/03/17 13:34 General: Alert, Oriented x3, Cooperative, No apparent distress, Well developed, Well nourished HEENT: Atraumatic, PERRLA, Normocephalic Lungs: Normal air movement Psych/Mental Status: Normal Affect, Appropriate, Alert and oriented to time, place, person, mood and affect Assessment/Plan The patient appeared to tolerate her first hyperbaric oxygen therapy session well, and subsequent hyperbaric oxygen treatments will continue as per the patient's medical plan.
[2017-10-06 13:34] VITALS: BP 131/85; BP 134/78; PULSE 56; RESP 16; TEMP 36.2; TEMP 36.5
[2017-10-07 12:41] VITALS: BP 131/91; BP 132/83; PULSE 53; PULSE 55; RESP 16; TEMP 36.4; TEMP 36.8
--- NOTE | 2017-10-07 16:19 | PCM.HBO.PN ---
History of Present Illness Date of Service: 10/07/17 Presenting Chief Complaint: Compromised skin grafts in both lower extremities. GEORGINA SKINNER is a 57 year old currently undergoing hyperbaric oxygen therapy for compromised skin grafts of the lower extremities. Progress: Hyperbaric oxygen therapy was administered today, and was well tolerated by the patient. Tolerance of hyperbaric oxygen therapy: Hyperbaric oxygen therapy was administered as per the facility's protocol. Today's hyperbaric oxygen treatment represents the 2nd such treatment. The patient tolerated hyperbaric oxygen therapy well, without significant complications. The hyperbaric oxygen treatment was completed in its entirety. Upon emergence from the hyperbaric chamber, patient's vital signs were noted to be stable. She was discharged in good condition. Past Medical History Chronic Problems (Last Updated 06/28/17 @ 11:52 by Israel Anne DO) Glioblastoma multiforme (Chronic) Allergies/Adverse Reactions: Allergies adhesive tape Adverse Reaction (Verified 06/24/17 09:09) VERY THIN STEROID SKIN WILL REMOVE SKIN IF ON TOO LONG Home Medications: Ambulatory Orders Medication Instructions Recorded Cholecalciferol (Vitamin D3) 5,000 unit PO DAILY 03/02/17 [Vitamin D3] Dexamethasone 3 mg PO DAILY 03/02/17 Famotidine [Pepcid] 20 mg PO BID 03/02/17 Multivitamin [Daily Multiple 1 each PO DAILY 03/02/17 Vitamin] Ondansetron [Zofran] 8 mg PO Q8H PRN PRN 03/02/17 Levetiracetam 750 mg PO BID 05/03/17 Lisinopril 1 tablet PO DAILY 05/03/17 Acetaminophen [Tylenol Tablet] 650 mg PO Q6H PRN PRN tablet 06/28/17 Calcium (Elemental) [Os-Gudio 500] 500 mg PO DAILY 07/08/17 Lactobacillus Acidophilus 1 each PO DAILY 07/08/17 [Acidophilus Lactobacilli] Magnesium Hydroxide [Milk Of 30 ml PO DAILY PRN PRN 07/08/17 Magnesia] proMETHazine tablet [Phenergan 25 mg PO Q4H PRN PRN 07/08/17 tablet] Bisacodyl 10 mg RECTAL QHS PRN PRN #30 08/15/17 supp.rect Diazepam [Valium] 5 mg PO 4X/DAY PRN PRN #30 tab 08/15/17 HYDROmorphone tablet [Dilaudid] 2 - 4 mg PO 4X/DAY PRN PRN #50 tab 08/15/17 Nutritional Supplement [Rodger - 1 packet PO BIDCM #60 packet 08/15/17 ORANGE FLAVOR] Polyethylene Glycol 3350 [Miralax] 17 gm PO DAILY #30 packet 08/15/17 Potassium Chloride [K-Dur] 20 meq PO DAILYCM #30 tab 08/15/17 fentaNYL patch [Duragesic patch] 50 mcg TRANSDERM. Q3D@1000 #5 patch 08/15/17 Diazepam [Valium] 5 mg PO BID PRN 10 Days #29 tab 08/17/17 Gabapentin [Neurontin] 300 mg PO BIDCM 30 Days #60 08/17/17 HYDROmorphone tablet [Dilaudid] 2 mg PO 4X/DAY PRN PRN 7 Days #30 08/17/17 tab Linezolid [Zyvox] 600 mg PO BID 14 Days #28 tab 08/17/17 fentaNYL patch [Duragesic] 25 mcg TRANSDERM. Q72H #5 patch 08/17/17 0.9 % Sodium Chloride [Saline 210 ml MC .QDAILY 30 Days #10 08/18/17 Wound Wash] bottle Gauze Bandage [Gauze Pads] 6 ea TP .QDAILY 30 Days #180 08/18/17 bandage Gauze Bandage [Rolled Gauze] 2 ea TP .QDAILY 30 Days #60 bandage 08/18/17 Gloves [Nitrile Exam Gloves] 1 pair MC .QDAILY 30 Days #2 box 08/18/17 Silver/Hydrocolloid Dressing 2 ea TP .QDAILY 30 Days #60 bandage 08/18/17 [Aquacel-Ag W-Hydrofiber Dress] Maternal Family History: No pertinent history Paternal Family History: No pertinent history Smoking Status: Never smoker Tobacco Use: Non-smoker Alcohol: None Drugs: None Physical Exam Vital Signs Temp Pulse Resp BP 98.2 F 53 L 16 132/83 H 10/07/17 12:41 10/07/17 12:41 10/07/17 12:41 10/07/17 12:41 General: Alert Psych/Mental Status: Normal Affect, Appropriate Assessment/Plan Active Problems (Last Updated 06/28/17 @ 11:52 by Israel Anne DO) Failed skin graft (Acute) Other complications of skin graft (allograft) (autograft) (Acute) Ulcers of both lower legs (Acute) multiple infected ulcers bilateral legs L97.919 Wound, open, lower limb with complication (Acute) The patient tolerated her second hyperbaric oxygen therapy session well, and subsequent hyperbaric oxygen treatments will continue as per the patient's medical plan to promote healing of her wounds. T86.828 complications of skin graft T86.821 failure of skin graft
--- NOTE | 2017-10-09 10:18 | PCM.HBO.PN ---
History of Present Illness Date of Service: 10/06/17 Presenting Chief Complaint: Compromised skin grafts in both lower extremities. GEORGINA SKINNER is a 57 year old currently undergoing hyperbaric oxygen therapy for compromised skin grafts of the lower extremities. Progress: Hyperbaric oxygen therapy was administered today, and was well tolerated by the patient. Tolerance of hyperbaric oxygen therapy: Hyperbaric oxygen therapy was administered as per the facility's protocol. Today's hyperbaric oxygen treatment represents the 2nd such treatment. The patient tolerated hyperbaric oxygen therapy well, without significant complications. The hyperbaric oxygen treatment was completed in its entirety. Upon emergence from the hyperbaric chamber, patient's vital signs were noted to be stable. She was discharged in good condition. Past Medical History Chronic Problems (Last Updated 10/07/17 @ 16:44 by Sari Hawk DO) Glioblastoma multiforme (Chronic) Allergies/Adverse Reactions: Allergies adhesive tape Adverse Reaction (Verified 06/24/17 09:09) VERY THIN STEROID SKIN WILL REMOVE SKIN IF ON TOO LONG Home Medications: Ambulatory Orders Medication Instructions Recorded Cholecalciferol (Vitamin D3) 5,000 unit PO DAILY 03/02/17 [Vitamin D3] Dexamethasone 3 mg PO DAILY 03/02/17 Famotidine [Pepcid] 20 mg PO BID 03/02/17 Multivitamin [Daily Multiple 1 each PO DAILY 03/02/17 Vitamin] Ondansetron [Zofran] 8 mg PO Q8H PRN PRN 03/02/17 Levetiracetam 750 mg PO BID 05/03/17 Lisinopril 1 tablet PO DAILY 05/03/17 Acetaminophen [Tylenol Tablet] 650 mg PO Q6H PRN PRN tablet 06/28/17 Calcium (Elemental) [Os-Guido 500] 500 mg PO DAILY 07/08/17 Lactobacillus Acidophilus 1 each PO DAILY 07/08/17 [Acidophilus Lactobacilli] Magnesium Hydroxide [Milk Of 30 ml PO DAILY PRN PRN 07/08/17 Magnesia] proMETHazine tablet [Phenergan 25 mg PO Q4H PRN PRN 07/08/17 tablet] Bisacodyl 10 mg RECTAL QHS PRN PRN #30 08/15/17 supp.rect Diazepam [Valium] 5 mg PO 4X/DAY PRN PRN #30 tab 08/15/17 HYDROmorphone tablet [Dilaudid] 2 - 4 mg PO 4X/DAY PRN PRN #50 tab 08/15/17 Nutritional Supplement [Rodger - 1 packet PO BIDCM #60 packet 08/15/17 ORANGE FLAVOR] Polyethylene Glycol 3350 [Miralax] 17 gm PO DAILY #30 packet 08/15/17 Potassium Chloride [K-Dur] 20 meq PO DAILYCM #30 tab 08/15/17 fentaNYL patch [Duragesic patch] 50 mcg TRANSDERM. Q3D@1000 #5 patch 08/15/17 Diazepam [Valium] 5 mg PO BID PRN 10 Days #29 tab 08/17/17 Gabapentin [Neurontin] 300 mg PO BIDCM 30 Days #60 08/17/17 HYDROmorphone tablet [Dilaudid] 2 mg PO 4X/DAY PRN PRN 7 Days #30 08/17/17 tab Linezolid [Zyvox] 600 mg PO BID 14 Days #28 tab 08/17/17 fentaNYL patch [Duragesic] 25 mcg TRANSDERM. Q72H #5 patch 08/17/17 0.9 % Sodium Chloride [Saline 210 ml MC .QDAILY 30 Days #10 08/18/17 Wound Wash] bottle Gauze Bandage [Gauze Pads] 6 ea TP .QDAILY 30 Days #180 08/18/17 bandage Gauze Bandage [Rolled Gauze] 2 ea TP .QDAILY 30 Days #60 bandage 08/18/17 Gloves [Nitrile Exam Gloves] 1 pair MC .QDAILY 30 Days #2 box 08/18/17 Silver/Hydrocolloid Dressing 2 ea TP .QDAILY 30 Days #60 bandage 08/18/17 [Aquacel-Ag W-Hydrofiber Dress] Maternal Family History: No pertinent history Paternal Family History: No pertinent history Smoking Status: Never smoker Tobacco Use: Non-smoker Alcohol: None Drugs: None Physical Exam Vital Signs Temp Pulse Resp BP 98.2 F 53 L 16 132/83 H 10/07/17 12:41 10/07/17 12:41 10/07/17 12:41 10/07/17 12:41 General: Alert, Oriented x3, Cooperative, No apparent distress HEENT: Atraumatic, Normocephalic, TM's Clear - Small amount of clear fluid present bilaterally, TMs intact and nonbulging Lungs: Clear to auscultation, Normal air movement Cardiovascular: Regular rate, Regular Rhythm Psych/Mental Status: Normal Affect Assessment/Plan Active Problems (Last Updated 10/07/17 @ 16:44 by Sari Hawk DO) Other complications of skin graft (allograft) (autograft) (Acute) Failed skin graft (Acute) Ulcers of both lower legs (Acute) multiple infected ulcers bilateral legs L97.919 Wound, open, lower limb with complication (Acute) The patient tolerated her second hyperbaric oxygen therapy session well, and subsequent hyperbaric oxygen treatments will continue as per the patient's medical plan to promote healing of her wounds. The patient was advised to start using Flonase, to see if this helps with her fluid accumulation in her ears. T86.828 complications of skin graft T86.821 failure of skin graft Code Visit Visit charge [id number]
[2017-10-10 12:01] VITALS: BP 123/86; PULSE 66; RESP 18; TEMP 36.6
[2017-10-10 14:31] VITALS: BP 123/86; BP 136/87; PULSE 57; PULSE 66; RESP 18; TEMP 35.9; TEMP 36.6
--- NOTE | 2017-10-10 16:42 | PCM.HBO.PN ---
History of Present Illness Date of Service: 10/10/17 Presenting Chief Complaint: Compromised skin grafts in both lower extremities. GEORGINA SKINNER is a 57 year old currently undergoing hyperbaric oxygen therapy for compromised skin grafts of the lower extremities. Progress: Hyperbaric oxygen therapy was administered today, and was well tolerated by the patient. Today represents the fourth such hyperbaric oxygen treatment. Tolerance of hyperbaric oxygen therapy: Hyperbaric oxygen therapy was administered as per the facility's protocol. Today's hyperbaric oxygen treatment represents the 4th such treatment. The patient tolerated hyperbaric oxygen therapy well, without significant complications. The hyperbaric oxygen treatment was completed in its entirety. Upon emergence from the hyperbaric chamber, patient's vital signs were noted to be stable. She was discharged in good condition. Past Medical History Chronic Problems (Last Updated 10/07/17 @ 16:44 by Sari Hawk DO) Glioblastoma multiforme (Chronic) Allergies/Adverse Reactions: Allergies adhesive tape Adverse Reaction (Verified 06/24/17 09:09) VERY THIN STEROID SKIN WILL REMOVE SKIN IF ON TOO LONG Home Medications: Ambulatory Orders Medication Instructions Recorded Cholecalciferol (Vitamin D3) 5,000 unit PO DAILY 03/02/17 [Vitamin D3] Dexamethasone 3 mg PO DAILY 03/02/17 Famotidine [Pepcid] 20 mg PO BID 03/02/17 Multivitamin [Daily Multiple 1 each PO DAILY 03/02/17 Vitamin] Ondansetron [Zofran] 8 mg PO Q8H PRN PRN 03/02/17 Levetiracetam 750 mg PO BID 05/03/17 Lisinopril 1 tablet PO DAILY 05/03/17 Acetaminophen [Tylenol Tablet] 650 mg PO Q6H PRN PRN tablet 06/28/17 Calcium (Elemental) [Os-Guido 500] 500 mg PO DAILY 07/08/17 Lactobacillus Acidophilus 1 each PO DAILY 07/08/17 [Acidophilus Lactobacilli] Magnesium Hydroxide [Milk Of 30 ml PO DAILY PRN PRN 07/08/17 Magnesia] proMETHazine tablet [Phenergan 25 mg PO Q4H PRN PRN 07/08/17 tablet] Bisacodyl 10 mg RECTAL QHS PRN PRN #30 08/15/17 supp.rect Diazepam [Valium] 5 mg PO 4X/DAY PRN PRN #30 tab 08/15/17 HYDROmorphone tablet [Dilaudid] 2 - 4 mg PO 4X/DAY PRN PRN #50 tab 08/15/17 Nutritional Supplement [Rodger - 1 packet PO BIDCM #60 packet 08/15/17 ORANGE FLAVOR] Polyethylene Glycol 3350 [Miralax] 17 gm PO DAILY #30 packet 08/15/17 Potassium Chloride [K-Dur] 20 meq PO DAILYCM #30 tab 08/15/17 fentaNYL patch [Duragesic patch] 50 mcg TRANSDERM. Q3D@1000 #5 patch 08/15/17 Diazepam [Valium] 5 mg PO BID PRN 10 Days #29 tab 08/17/17 Gabapentin [Neurontin] 300 mg PO BIDCM 30 Days #60 08/17/17 HYDROmorphone tablet [Dilaudid] 2 mg PO 4X/DAY PRN PRN 7 Days #30 08/17/17 tab Linezolid [Zyvox] 600 mg PO BID 14 Days #28 tab 08/17/17 fentaNYL patch [Duragesic] 25 mcg TRANSDERM. Q72H #5 patch 08/17/17 0.9 % Sodium Chloride [Saline 210 ml MC .QDAILY 30 Days #10 08/18/17 Wound Wash] bottle Gauze Bandage [Gauze Pads] 6 ea TP .QDAILY 30 Days #180 08/18/17 bandage Gauze Bandage [Rolled Gauze] 2 ea TP .QDAILY 30 Days #60 bandage 08/18/17 Gloves [Nitrile Exam Gloves] 1 pair MC .QDAILY 30 Days #2 box 08/18/17 Silver/Hydrocolloid Dressing 2 ea TP .QDAILY 30 Days #60 bandage 08/18/17 [Aquacel-Ag W-Hydrofiber Dress] Maternal Family History: No pertinent history Paternal Family History: No pertinent history Smoking Status: Never smoker Tobacco Use: Non-smoker Alcohol: None Drugs: None Physical Exam Vital Signs Temp Pulse Resp BP 96.6 F L 57 L 18 136/87 H 10/10/17 14:31 10/10/17 14:31 10/10/17 14:31 10/10/17 14:31 General: Alert, Oriented x3, Cooperative, No apparent distress, Well developed, Well nourished HEENT: Atraumatic, PERRLA, EOMI, Normocephalic Lungs: Normal air movement Psych/Mental Status: Normal Affect, Appropriate, Alert and oriented to time, place, person, mood and affect Assessment/Plan Active Problems (Last Updated 10/07/17 @ 16:44 by Sari Hawk DO) Other complications of skin graft (allograft) (autograft) (Acute) Failed skin graft (Acute) Ulcers of both lower legs (Acute) multiple infected ulcers bilateral legs L97.919 Wound, open, lower limb with complication (Acute) The patient appears to be tolerating hyperbaric oxygen therapy well, which will be continued as per the patient's medical plan.
[2017-10-12 13:13] VITALS: BP 126/75; PULSE 51; RESP 16; TEMP 36.3
--- NOTE | 2017-10-12 21:15 | PCM.HBO.PN ---
History of Present Illness Date of Service: 10/12/17 Presenting Chief Complaint: Compromised skin grafts bilateral lower extremities. GEORGINA SKINNER is a 57 year old currently undergoing hyperbaric oxygen therapy for compromised skin grafts bilateral lower extremities. Progress: Hyperbaric oxygen therapy was administered today, and was well tolerated by the patient. Today represents the 5th such hyperbaric oxygen treatment. Tolerance of hyperbaric oxygen therapy: Hyperbaric oxygen therapy was administered as per the facility's protocol. Today's hyperbaric oxygen treatment represents the 5th such treatment. The patient tolerated hyperbaric oxygen therapy well, without significant complications. The hyperbaric oxygen treatment was completed in its entirety. Upon emergence from the hyperbaric chamber, patient's vital signs were noted to be stable. She was discharged in good condition. Past Medical History Chronic Problems (Last Updated 10/07/17 @ 16:44 by Sari Hawk DO) Glioblastoma multiforme (Chronic) Allergies/Adverse Reactions: Allergies adhesive tape Adverse Reaction (Verified 06/24/17 09:09) VERY THIN STEROID SKIN WILL REMOVE SKIN IF ON TOO LONG Home Medications: Ambulatory Orders Medication Instructions Recorded Cholecalciferol (Vitamin D3) 5,000 unit PO DAILY 03/02/17 [Vitamin D3] Dexamethasone 3 mg PO DAILY 03/02/17 Famotidine [Pepcid] 20 mg PO BID 03/02/17 Multivitamin [Daily Multiple 1 each PO DAILY 03/02/17 Vitamin] Ondansetron [Zofran] 8 mg PO Q8H PRN PRN 03/02/17 Levetiracetam 750 mg PO BID 05/03/17 Lisinopril 1 tablet PO DAILY 05/03/17 Acetaminophen [Tylenol Tablet] 650 mg PO Q6H PRN PRN tablet 06/28/17 Calcium (Elemental) [Os-Guido 500] 500 mg PO DAILY 07/08/17 Lactobacillus Acidophilus 1 each PO DAILY 07/08/17 [Acidophilus Lactobacilli] Magnesium Hydroxide [Milk Of 30 ml PO DAILY PRN PRN 07/08/17 Magnesia] proMETHazine tablet [Phenergan 25 mg PO Q4H PRN PRN 07/08/17 tablet] Bisacodyl 10 mg RECTAL QHS PRN PRN #30 08/15/17 supp.rect Diazepam [Valium] 5 mg PO 4X/DAY PRN PRN #30 tab 01/29/18 HYDROmorphone tablet [Dilaudid] 2 - 4 mg PO 4X/DAY PRN PRN #50 tab 08/15/17 Nutritional Supplement [Rodger - 1 packet PO BIDCM #60 packet 08/15/17 ORANGE FLAVOR] Polyethylene Glycol 3350 [Miralax] 17 gm PO DAILY #30 packet 08/15/17 Potassium Chloride [K-Dur] 20 meq PO DAILYCM #30 tab 08/15/17 fentaNYL patch [Duragesic patch] 50 mcg TRANSDERM. Q3D@1000 #5 patch 08/15/17 Diazepam [Valium] 5 mg PO BID PRN 10 Days #29 tab 08/17/17 Gabapentin [Neurontin] 300 mg PO BIDCM 30 Days #60 08/17/17 HYDROmorphone tablet [Dilaudid] 2 mg PO 4X/DAY PRN PRN 7 Days #30 08/17/17 tab Linezolid [Zyvox] 600 mg PO BID 14 Days #28 tab 08/17/17 0.9 % Sodium Chloride [Saline 210 ml MC .QDAILY 30 Days #10 08/18/17 Wound Wash] bottle Gauze Bandage [Gauze Pads] 6 ea TP .QDAILY 30 Days #180 08/18/17 bandage Gauze Bandage [Rolled Gauze] 2 ea TP .QDAILY 30 Days #60 bandage 08/18/17 Gloves [Nitrile Exam Gloves] 1 pair MC .QDAILY 30 Days #2 box 08/18/17 Silver/Hydrocolloid Dressing 2 ea TP .QDAILY 30 Days #60 bandage 08/18/17 [Aquacel-Ag W-Hydrofiber Dress] Levofloxacin [Levaquin] 500 mg PO .QDAILY 14 Days #14 tab 10/17/17 Oxycodone HCl/Acetaminophen 1 tab PO 4X/DAY PRN PRN 7 Days #30 10/19/17 [Percocet 5/325] tab fentaNYL patch [Duragesic patch] 25 mcg TRANSDERM. Q72H 15 Days #5 10/19/17 patch Maternal Family History: No pertinent history Paternal Family History: No pertinent history Smoking Status: Never smoker Tobacco Use: Non-smoker Alcohol: None Drugs: None Physical Exam Vital Signs Temp Pulse Resp BP 97.4 F L 51 L 16 126/75 H 10/12/17 13:13 10/12/17 13:13 10/12/17 13:13 10/12/17 13:13
--- NOTE | 2017-10-14 07:33 | PCM.HBO.PN ---
History of Present Illness Date of Service: 10/13/17 Presenting Chief Complaint: Compromised skin grafts in both lower extremities. GEORGINA SKINNER is a 57 year old currently undergoing hyperbaric oxygen therapy for compromised skin grafts of the lower extremities. Progress: Hyperbaric oxygen therapy was administered today, and was well tolerated by the patient. Today represents the fifth such hyperbaric oxygen treatment. Tolerance of hyperbaric oxygen therapy: Hyperbaric oxygen therapy was administered as per the facility's protocol. Today's hyperbaric oxygen treatment represents the 5th such treatment. The patient tolerated hyperbaric oxygen therapy well, without significant complications. The hyperbaric oxygen treatment was completed in its entirety. Upon emergence from the hyperbaric chamber, patient's vital signs were noted to be stable. She was discharged in good condition. Past Medical History Chronic Problems (Last Updated 10/07/17 @ 16:44 by Sari Hawk DO) Glioblastoma multiforme (Chronic) Allergies/Adverse Reactions: Allergies adhesive tape Adverse Reaction (Verified 06/24/17 09:09) VERY THIN STEROID SKIN WILL REMOVE SKIN IF ON TOO LONG Home Medications: Ambulatory Orders Medication Instructions Recorded Cholecalciferol (Vitamin D3) 5,000 unit PO DAILY 03/02/17 [Vitamin D3] Dexamethasone 3 mg PO DAILY 03/02/17 Famotidine [Pepcid] 20 mg PO BID 03/02/17 Multivitamin [Daily Multiple 1 each PO DAILY 03/02/17 Vitamin] Ondansetron [Zofran] 8 mg PO Q8H PRN PRN 03/02/17 Levetiracetam 750 mg PO BID 05/03/17 Lisinopril 1 tablet PO DAILY 05/03/17 Acetaminophen [Tylenol Tablet] 650 mg PO Q6H PRN PRN tablet 06/28/17 Calcium (Elemental) [Os-Guido 500] 500 mg PO DAILY 07/08/17 Lactobacillus Acidophilus 1 each PO DAILY 07/08/17 [Acidophilus Lactobacilli] Magnesium Hydroxide [Milk Of 30 ml PO DAILY PRN PRN 07/08/17 Magnesia] proMETHazine tablet [Phenergan 25 mg PO Q4H PRN PRN 07/08/17 tablet] Bisacodyl 10 mg RECTAL QHS PRN PRN #30 08/15/17 supp.rect Diazepam [Valium] 5 mg PO 4X/DAY PRN PRN #30 tab 08/15/17 HYDROmorphone tablet [Dilaudid] 2 - 4 mg PO 4X/DAY PRN PRN #50 tab 08/15/17 Nutritional Supplement [Rodger - 1 packet PO BIDCM #60 packet 08/15/17 ORANGE FLAVOR] Polyethylene Glycol 3350 [Miralax] 17 gm PO DAILY #30 packet 08/15/17 Potassium Chloride [K-Dur] 20 meq PO DAILYCM #30 tab 08/15/17 fentaNYL patch [Duragesic patch] 50 mcg TRANSDERM. Q3D@1000 #5 patch 08/15/17 Diazepam [Valium] 5 mg PO BID PRN 10 Days #29 tab 08/17/17 Gabapentin [Neurontin] 300 mg PO BIDCM 30 Days #60 08/17/17 HYDROmorphone tablet [Dilaudid] 2 mg PO 4X/DAY PRN PRN 7 Days #30 08/17/17 tab Linezolid [Zyvox] 600 mg PO BID 14 Days #28 tab 08/17/17 fentaNYL patch [Duragesic] 25 mcg TRANSDERM. Q72H #5 patch 08/17/17 0.9 % Sodium Chloride [Saline 210 ml MC .QDAILY 30 Days #10 08/18/17 Wound Wash] bottle Gauze Bandage [Gauze Pads] 6 ea TP .QDAILY 30 Days #180 08/18/17 bandage Gauze Bandage [Rolled Gauze] 2 ea TP .QDAILY 30 Days #60 bandage 08/18/17 Gloves [Nitrile Exam Gloves] 1 pair MC .QDAILY 30 Days #2 box 08/18/17 Silver/Hydrocolloid Dressing 2 ea TP .QDAILY 30 Days #60 bandage 08/18/17 [Aquacel-Ag W-Hydrofiber Dress] Maternal Family History: No pertinent history Paternal Family History: No pertinent history Smoking Status: Never smoker Tobacco Use: Non-smoker Alcohol: None Drugs: None Physical Exam Vital Signs Temp Pulse Resp BP 97.4 F L 51 L 16 126/75 H 10/12/17 13:13 10/12/17 13:13 10/12/17 13:13 10/12/17 13:13 General: Alert, Oriented x3, Cooperative, No apparent distress HEENT: Atraumatic Cardiovascular: Regular rate Psych/Mental Status: Normal Affect Patient condition: Patient was concerned about ulceration on left posterior Achilles heel having a foul smell, both aerobic and anaerobic cultures collected. Assessment/Plan Active Problems (Last Updated 10/07/17 @ 16:44 by Sari Hawk DO) Other complications of skin graft (allograft) (autograft) (Acute) Failed skin graft (Acute) Ulcers of both lower legs (Acute) multiple infected ulcers bilateral legs L97.919 Wound, open, lower limb with complication (Acute) The patient appears to be tolerating hyperbaric oxygen therapy well, which will be continued as per the patient's medical plan. Code Visit Visit charge [id number]
[2017-10-14 12:40] VITALS: BP 109/67; PULSE 48; RESP 16; TEMP 36.2
--- NOTE | 2017-10-14 19:32 | PCM.HBO.PN ---
History of Present Illness Date of Service: 10/14/17 Presenting Chief Complaint: Compromised skin grafts in both lower extremities. GEORGINA SKINNER is a 57 year old currently undergoing hyperbaric oxygen therapy for compromised skin grafts of the lower extremities. Progress: Hyperbaric oxygen therapy was administered today, and was well tolerated by the patient. Today represents the sixth such hyperbaric oxygen treatment. Tolerance of hyperbaric oxygen therapy: Hyperbaric oxygen therapy was administered as per the facility's protocol. Today's hyperbaric oxygen treatment represents the 6th such treatment. The patient tolerated hyperbaric oxygen therapy well, without complications. The hyperbaric oxygen treatment was completed in its entirety. Upon emergence from the hyperbaric chamber, patient's vital signs were noted to be stable. She was discharged in good condition. Past Medical History Chronic Problems (Last Updated 10/07/17 @ 16:44 by Sari Hawk DO) Glioblastoma multiforme (Chronic) Allergies/Adverse Reactions: Allergies adhesive tape Adverse Reaction (Verified 06/24/17 09:09) VERY THIN STEROID SKIN WILL REMOVE SKIN IF ON TOO LONG Home Medications: Ambulatory Orders Medication Instructions Recorded Cholecalciferol (Vitamin D3) 5,000 unit PO DAILY 03/02/17 [Vitamin D3] Dexamethasone 3 mg PO DAILY 03/02/17 Famotidine [Pepcid] 20 mg PO BID 03/02/17 Multivitamin [Daily Multiple 1 each PO DAILY 03/02/17 Vitamin] Ondansetron [Zofran] 8 mg PO Q8H PRN PRN 03/02/17 Levetiracetam 750 mg PO BID 05/03/17 Lisinopril 1 tablet PO DAILY 05/03/17 Acetaminophen [Tylenol Tablet] 650 mg PO Q6H PRN PRN tablet 06/28/17 Calcium (Elemental) [Os-Guido 500] 500 mg PO DAILY 07/08/17 Lactobacillus Acidophilus 1 each PO DAILY 07/08/17 [Acidophilus Lactobacilli] Magnesium Hydroxide [Milk Of 30 ml PO DAILY PRN PRN 07/08/17 Magnesia] proMETHazine tablet [Phenergan 25 mg PO Q4H PRN PRN 07/08/17 tablet] Bisacodyl 10 mg RECTAL QHS PRN PRN #30 08/15/17 supp.rect Diazepam [Valium] 5 mg PO 4X/DAY PRN PRN #30 tab 08/15/17 HYDROmorphone tablet [Dilaudid] 2 - 4 mg PO 4X/DAY PRN PRN #50 tab 08/15/17 Nutritional Supplement [Rodger - 1 packet PO BIDCM #60 packet 08/15/17 ORANGE FLAVOR] Polyethylene Glycol 3350 [Miralax] 17 gm PO DAILY #30 packet 08/15/17 Potassium Chloride [K-Dur] 20 meq PO DAILYCM #30 tab 08/15/17 fentaNYL patch [Duragesic patch] 50 mcg TRANSDERM. Q3D@1000 #5 patch 08/15/17 Diazepam [Valium] 5 mg PO BID PRN 10 Days #29 tab 08/17/17 Gabapentin [Neurontin] 300 mg PO BIDCM 30 Days #60 08/17/17 HYDROmorphone tablet [Dilaudid] 2 mg PO 4X/DAY PRN PRN 7 Days #30 08/17/17 tab Linezolid [Zyvox] 600 mg PO BID 14 Days #28 tab 08/17/17 fentaNYL patch [Duragesic] 25 mcg TRANSDERM. Q72H #5 patch 08/17/17 0.9 % Sodium Chloride [Saline 210 ml MC .QDAILY 30 Days #10 08/18/17 Wound Wash] bottle Gauze Bandage [Gauze Pads] 6 ea TP .QDAILY 30 Days #180 08/18/17 bandage Gauze Bandage [Rolled Gauze] 2 ea TP .QDAILY 30 Days #60 bandage 08/18/17 Gloves [Nitrile Exam Gloves] 1 pair MC .QDAILY 30 Days #2 box 08/18/17 Silver/Hydrocolloid Dressing 2 ea TP .QDAILY 30 Days #60 bandage 08/18/17 [Aquacel-Ag W-Hydrofiber Dress] Maternal Family History: No pertinent history Paternal Family History: No pertinent history Smoking Status: Never smoker Tobacco Use: Non-smoker Alcohol: None Drugs: None Physical Exam Vital Signs Temp Pulse Resp BP 97.1 F L 48 L 16 109/67 10/14/17 12:40 10/14/17 12:40 10/14/17 12:40 10/14/17 12:40 General: Alert, Oriented x3, Cooperative, No apparent distress Psych/Mental Status: Normal Affect, Appropriate Assessment/Plan Active Problems (Last Updated 10/07/17 @ 16:44 by Sari Hawk DO) Other complications of skin graft (allograft) (autograft) (Acute) Failed skin graft (Acute) Ulcers of both lower legs (Acute) multiple infected ulcers bilateral legs L97.919 Wound, open, lower limb with complication (Acute) The patient appears to be tolerating hyperbaric oxygen therapy well, which will be continued as per the patient's medical plan.
--- NOTE | 2017-10-21 17:11 | PCM.HBO.PN ---
History of Present Illness Date of Service: 10/21/17 Presenting Chief Complaint: Compromised skin grafts bilateral lower extremities. GEORGINA SKINNER is a 57 year old currently undergoing hyperbaric oxygen therapy for compromised skin grafts of the lower extremities. Progress: Hyperbaric oxygen therapy was administered today, and was well tolerated by the patient. Today represents the 10th such hyperbaric oxygen treatment. Tolerance of hyperbaric oxygen therapy: Hyperbaric oxygen therapy was administered as per the facility's protocol. Today's hyperbaric oxygen treatment represents the 10th such treatment. The patient tolerated hyperbaric oxygen therapy well, without complications. The hyperbaric oxygen treatment was completed in its entirety. Upon emergence from the hyperbaric chamber, patient's vital signs were noted to be stable. She was discharged in good condition. Past Medical History Chronic Problems (Last Updated 10/07/17 @ 16:44 by Sari Hawk DO) Glioblastoma multiforme (Chronic) Allergies/Adverse Reactions: Allergies adhesive tape Adverse Reaction (Verified 06/24/17 09:09) VERY THIN STEROID SKIN WILL REMOVE SKIN IF ON TOO LONG Home Medications: Ambulatory Orders Medication Instructions Recorded Cholecalciferol (Vitamin D3) 5,000 unit PO DAILY 03/02/17 [Vitamin D3] Dexamethasone 3 mg PO DAILY 03/02/17 Famotidine [Pepcid] 20 mg PO BID 03/02/17 Multivitamin [Daily Multiple 1 each PO DAILY 03/02/17 Vitamin] Ondansetron [Zofran] 8 mg PO Q8H PRN PRN 03/02/17 Levetiracetam 750 mg PO BID 05/03/17 Lisinopril 1 tablet PO DAILY 05/03/17 Acetaminophen [Tylenol Tablet] 650 mg PO Q6H PRN PRN tablet 06/28/17 Calcium (Elemental) [Os-Guido 500] 500 mg PO DAILY 07/08/17 Lactobacillus Acidophilus 1 each PO DAILY 07/08/17 [Acidophilus Lactobacilli] Magnesium Hydroxide [Milk Of 30 ml PO DAILY PRN PRN 07/08/17 Magnesia] proMETHazine tablet [Phenergan 25 mg PO Q4H PRN PRN 07/08/17 tablet] Bisacodyl 10 mg RECTAL QHS PRN PRN #30 08/15/17 supp.rect Diazepam [Valium] 5 mg PO 4X/DAY PRN PRN #30 tab 01/29/18 HYDROmorphone tablet [Dilaudid] 2 - 4 mg PO 4X/DAY PRN PRN #50 tab 08/15/17 Nutritional Supplement [Rodger - 1 packet PO BIDCM #60 packet 08/15/17 ORANGE FLAVOR] Polyethylene Glycol 3350 [Miralax] 17 gm PO DAILY #30 packet 08/15/17 Potassium Chloride [K-Dur] 20 meq PO DAILYCM #30 tab 08/15/17 fentaNYL patch [Duragesic patch] 50 mcg TRANSDERM. Q3D@1000 #5 patch 08/15/17 Diazepam [Valium] 5 mg PO BID PRN 10 Days #29 tab 08/17/17 Gabapentin [Neurontin] 300 mg PO BIDCM 30 Days #60 08/17/17 HYDROmorphone tablet [Dilaudid] 2 mg PO 4X/DAY PRN PRN 7 Days #30 08/17/17 tab Linezolid [Zyvox] 600 mg PO BID 14 Days #28 tab 08/17/17 0.9 % Sodium Chloride [Saline 210 ml MC .QDAILY 30 Days #10 08/18/17 Wound Wash] bottle Gauze Bandage [Gauze Pads] 6 ea TP .QDAILY 30 Days #180 08/18/17 bandage Gauze Bandage [Rolled Gauze] 2 ea TP .QDAILY 30 Days #60 bandage 08/18/17 Gloves [Nitrile Exam Gloves] 1 pair MC .QDAILY 30 Days #2 box 08/18/17 Silver/Hydrocolloid Dressing 2 ea TP .QDAILY 30 Days #60 bandage 08/18/17 [Aquacel-Ag W-Hydrofiber Dress] Levofloxacin [Levaquin] 500 mg PO .QDAILY 14 Days #14 tab 10/17/17 Oxycodone HCl/Acetaminophen 1 tab PO 4X/DAY PRN PRN 7 Days #30 10/19/17 [Percocet 5/325] tab fentaNYL patch [Duragesic patch] 25 mcg TRANSDERM. Q72H 15 Days #5 10/19/17 patch Maternal Family History: No pertinent history Paternal Family History: No pertinent history Smoking Status: Never smoker Tobacco Use: Non-smoker Alcohol: None Drugs: None Physical Exam Vital Signs Temp Pulse Resp BP 97.1 F L 48 L 16 109/67 10/14/17 12:40 10/14/17 12:40 10/14/17 12:40 10/14/17 12:40
== END 2017-10-15 23:59 ==
LOC: WC 13:00
PROVIDERS: Family Provider Student in an Organized Health Care Education/Training Program; PCP Student in an Organized Health Care Education/Training Program; Visit Provider Surgery
DX: T86.828 Other complications of skin graft (allograft) (autograft) (principal); L97.822 Non-pressure chronic ulcer of other part of left lower leg with fat layer exposed; L97.812 Non-pressure chronic ulcer of other part of right lower leg with fat layer exposed; L97.322 Non-pressure chronic ulcer of left ankle with fat layer exposed; L97.312 Non-pressure chronic ulcer of right ankle with fat layer exposed; D49.6 Neoplasm of unspecified behavior of brain; Z79.899 Other long term (current) drug therapy
CPT/HCPCS: 11043; 11046; 87070; 87077; 87186; 87205; 99183; G0277

== ENCOUNTER 2017-11-14 13:00 | Outpatient (RCR) | payer BC, SELFPAY ==
[2017-10-16 00:52] VITALS: BP 108/70; PULSE 48; RESP 16; TEMP 36.2
[2017-10-17 13:03] VITALS: BP 141/81; PULSE 52; RESP 16; TEMP 36.2
--- NOTE | 2017-10-17 17:56 | PCM.HBO.PN ---
History of Present Illness Date of Service: 10/17/17 Presenting Chief Complaint: Compromised skin grafts bilateral lower extremities. GEORGINA SKINNER is a 57 year old currently undergoing hyperbaric oxygen therapy for compromised skin grafts bilateral lower extremities. Progress: Hyperbaric oxygen therapy was administered today, and was well tolerated by the patient. Today represents the 8th such hyperbaric oxygen treatment. Tolerance of hyperbaric oxygen therapy: Hyperbaric oxygen therapy was administered as per the facility's protocol. Today's hyperbaric oxygen treatment represents the 8th such treatment. The patient tolerated hyperbaric oxygen therapy well, without significant complications. The hyperbaric oxygen treatment was completed in its entirety. Upon emergence from the hyperbaric chamber, patient's vital signs were noted to be stable. She was discharged in good condition. Past Medical History Chronic Problems (Last Updated 10/07/17 @ 16:44 by Sari Hawk DO) Glioblastoma multiforme (Chronic) Allergies/Adverse Reactions: Allergies adhesive tape Adverse Reaction (Verified 06/24/17 09:09) VERY THIN STEROID SKIN WILL REMOVE SKIN IF ON TOO LONG Home Medications: Ambulatory Orders Medication Instructions Recorded Cholecalciferol (Vitamin D3) 5,000 unit PO DAILY 03/02/17 [Vitamin D3] Dexamethasone 3 mg PO DAILY 03/02/17 Famotidine [Pepcid] 20 mg PO BID 03/02/17 Multivitamin [Daily Multiple 1 each PO DAILY 03/02/17 Vitamin] Ondansetron [Zofran] 8 mg PO Q8H PRN PRN 03/02/17 Levetiracetam 750 mg PO BID 05/03/17 Lisinopril 1 tablet PO DAILY 05/03/17 Acetaminophen [Tylenol Tablet] 650 mg PO Q6H PRN PRN tablet 06/28/17 Calcium (Elemental) [Os-Guido 500] 500 mg PO DAILY 07/08/17 Lactobacillus Acidophilus 1 each PO DAILY 07/08/17 [Acidophilus Lactobacilli] Magnesium Hydroxide [Milk Of 30 ml PO DAILY PRN PRN 07/08/17 Magnesia] proMETHazine tablet [Phenergan 25 mg PO Q4H PRN PRN 07/08/17 tablet] Bisacodyl 10 mg RECTAL QHS PRN PRN #30 08/15/17 supp.rect Diazepam [Valium] 5 mg PO 4X/DAY PRN PRN #30 tab 01/29/18 HYDROmorphone tablet [Dilaudid] 2 - 4 mg PO 4X/DAY PRN PRN #50 tab 08/15/17 Nutritional Supplement [Rodger - 1 packet PO BIDCM #60 packet 08/15/17 ORANGE FLAVOR] Polyethylene Glycol 3350 [Miralax] 17 gm PO DAILY #30 packet 08/15/17 Potassium Chloride [K-Dur] 20 meq PO DAILYCM #30 tab 08/15/17 fentaNYL patch [Duragesic patch] 50 mcg TRANSDERM. Q3D@1000 #5 patch 08/15/17 Diazepam [Valium] 5 mg PO BID PRN 10 Days #29 tab 08/17/17 Gabapentin [Neurontin] 300 mg PO BIDCM 30 Days #60 08/17/17 HYDROmorphone tablet [Dilaudid] 2 mg PO 4X/DAY PRN PRN 7 Days #30 08/17/17 tab Linezolid [Zyvox] 600 mg PO BID 14 Days #28 tab 08/17/17 0.9 % Sodium Chloride [Saline 210 ml MC .QDAILY 30 Days #10 08/18/17 Wound Wash] bottle Gauze Bandage [Gauze Pads] 6 ea TP .QDAILY 30 Days #180 08/18/17 bandage Gauze Bandage [Rolled Gauze] 2 ea TP .QDAILY 30 Days #60 bandage 08/18/17 Gloves [Nitrile Exam Gloves] 1 pair MC .QDAILY 30 Days #2 box 08/18/17 Silver/Hydrocolloid Dressing 2 ea TP .QDAILY 30 Days #60 bandage 08/18/17 [Aquacel-Ag W-Hydrofiber Dress] Levofloxacin [Levaquin] 500 mg PO .QDAILY 14 Days #14 tab 10/17/17 Oxycodone HCl/Acetaminophen 1 tab PO 4X/DAY PRN PRN 7 Days #30 10/19/17 [Percocet 5/325] tab fentaNYL patch [Duragesic patch] 25 mcg TRANSDERM. Q72H 15 Days #5 10/19/17 patch Maternal Family History: No pertinent history Paternal Family History: No pertinent history Smoking Status: Never smoker Tobacco Use: Non-smoker Physical Exam Vital Signs Temp Pulse Resp BP 97.2 F L 52 L 16 141/81 H 10/17/17 13:03 10/17/17 13:03 10/17/17 13:03 10/17/17 13:03
[2017-10-19 13:15] VITALS: BP 127/75; PULSE 66; RESP 16; TEMP 36.4
--- NOTE | 2017-10-19 19:40 | PCM.HBO.PN ---
History of Present Illness Date of Service: 10/19/17 Presenting Chief Complaint: Compromised skin grafts bilateral lower extremities. GEORGINA SKINNER is a 57 year old currently undergoing hyperbaric oxygen therapy for compromised skin grafts bilateral lower extremities. Progress: Hyperbaric oxygen therapy was administered today, and was well tolerated by the patient. Today represents the 9th such hyperbaric oxygen treatment. Tolerance of hyperbaric oxygen therapy: Hyperbaric oxygen therapy was administered as per the facility's protocol. Today's hyperbaric oxygen treatment represents the 9th such treatment. The patient tolerated hyperbaric oxygen therapy well, without significant complications. The hyperbaric oxygen treatment was completed in its entirety. Upon emergence from the hyperbaric chamber, patient's vital signs were noted to be stable. She was discharged in good condition. Past Medical History Chronic Problems (Last Updated 10/07/17 @ 16:44 by Sari Hawk DO) Glioblastoma multiforme (Chronic) Allergies/Adverse Reactions: Allergies adhesive tape Adverse Reaction (Verified 06/24/17 09:09) VERY THIN STEROID SKIN WILL REMOVE SKIN IF ON TOO LONG Home Medications: Ambulatory Orders Medication Instructions Recorded Cholecalciferol (Vitamin D3) 5,000 unit PO DAILY 03/02/17 [Vitamin D3] Dexamethasone 3 mg PO DAILY 03/02/17 Famotidine [Pepcid] 20 mg PO BID 03/02/17 Multivitamin [Daily Multiple 1 each PO DAILY 03/02/17 Vitamin] Ondansetron [Zofran] 8 mg PO Q8H PRN PRN 03/02/17 Levetiracetam 750 mg PO BID 05/03/17 Lisinopril 1 tablet PO DAILY 05/03/17 Acetaminophen [Tylenol Tablet] 650 mg PO Q6H PRN PRN tablet 06/28/17 Calcium (Elemental) [Os-Guido 500] 500 mg PO DAILY 07/08/17 Lactobacillus Acidophilus 1 each PO DAILY 07/08/17 [Acidophilus Lactobacilli] Magnesium Hydroxide [Milk Of 30 ml PO DAILY PRN PRN 07/08/17 Magnesia] proMETHazine tablet [Phenergan 25 mg PO Q4H PRN PRN 07/08/17 tablet] Bisacodyl 10 mg RECTAL QHS PRN PRN #30 08/15/17 supp.rect Diazepam [Valium] 5 mg PO 4X/DAY PRN PRN #30 tab 08/15/17 HYDROmorphone tablet [Dilaudid] 2 - 4 mg PO 4X/DAY PRN PRN #50 tab 08/15/17 Nutritional Supplement [Rodger - 1 packet PO BIDCM #60 packet 08/15/17 ORANGE FLAVOR] Polyethylene Glycol 3350 [Miralax] 17 gm PO DAILY #30 packet 08/15/17 Potassium Chloride [K-Dur] 20 meq PO DAILYCM #30 tab 08/15/17 fentaNYL patch [Duragesic patch] 50 mcg TRANSDERM. Q3D@1000 #5 patch 08/15/17 Diazepam [Valium] 5 mg PO BID PRN 10 Days #29 tab 08/17/17 Gabapentin [Neurontin] 300 mg PO BIDCM 30 Days #60 08/17/17 HYDROmorphone tablet [Dilaudid] 2 mg PO 4X/DAY PRN PRN 7 Days #30 08/17/17 tab Linezolid [Zyvox] 600 mg PO BID 14 Days #28 tab 08/17/17 0.9 % Sodium Chloride [Saline 210 ml MC .QDAILY 30 Days #10 08/18/17 Wound Wash] bottle Gauze Bandage [Gauze Pads] 6 ea TP .QDAILY 30 Days #180 08/18/17 bandage Gauze Bandage [Rolled Gauze] 2 ea TP .QDAILY 30 Days #60 bandage 08/18/17 Gloves [Nitrile Exam Gloves] 1 pair MC .QDAILY 30 Days #2 box 08/18/17 Silver/Hydrocolloid Dressing 2 ea TP .QDAILY 30 Days #60 bandage 08/18/17 [Aquacel-Ag W-Hydrofiber Dress] Levofloxacin [Levaquin] 500 mg PO .QDAILY 14 Days #14 tab 10/17/17 Oxycodone HCl/Acetaminophen 1 tab PO 4X/DAY PRN PRN 7 Days #30 10/19/17 [Percocet 5/325] tab fentaNYL patch [Duragesic patch] 25 mcg TRANSDERM. Q72H 15 Days #5 10/19/17 patch Maternal Family History: No pertinent history Paternal Family History: No pertinent history Smoking Status: Never smoker Tobacco Use: Non-smoker Physical Exam Vital Signs Temp Pulse Resp BP 97.5 F L 66 16 127/75 H 10/19/17 13:15 10/19/17 13:15 10/19/17 13:15 10/19/17 13:15
[2017-10-21 12:53] VITALS: BP 127/73; BP 129/94; PULSE 54; PULSE 59; RESP 16; TEMP 36.4
[2017-10-24 11:25] VITALS: BP 120/73; PULSE 64; RESP 16; TEMP 36.8
[2017-10-24 13:01] VITALS: BP 133/77; PULSE 54; RESP 16
--- NOTE | 2017-10-24 16:03 | PCM.HBO.PN ---
History of Present Illness Date of Service: 10/24/17 Presenting Chief Complaint: Compromised skin grafts in both lower extremities. GEORGINA SKINNER is a 57 year old currently undergoing hyperbaric oxygen therapy for compromised skin grafts in both lower extremities. Progress: Patient is tolerating hyperbaric oxygen therapy well. Today represents the 11th such session of hyperbaric oxygen therapy. Tolerance of hyperbaric oxygen therapy: Third as per the facility's protocol. The patient tolerated hyperbaric oxygen therapy well, without complaints or complications. Upon emergence from the hyperbaric chamber, the patient's vital signs remained stable. The patient was discharged in good condition. Past Medical History Chronic Problems (Last Updated 10/07/17 @ 16:44 by Sari Hawk DO) Glioblastoma multiforme (Chronic) Allergies/Adverse Reactions: Allergies adhesive tape Adverse Reaction (Verified 06/24/17 09:09) VERY THIN STEROID SKIN WILL REMOVE SKIN IF ON TOO LONG Home Medications: Ambulatory Orders Medication Instructions Recorded Cholecalciferol (Vitamin D3) 5,000 unit PO DAILY 03/02/17 [Vitamin D3] Dexamethasone 3 mg PO DAILY 03/02/17 Famotidine [Pepcid] 20 mg PO BID 03/02/17 Multivitamin [Daily Multiple 1 each PO DAILY 03/02/17 Vitamin] Ondansetron [Zofran] 8 mg PO Q8H PRN PRN 03/02/17 Levetiracetam 750 mg PO BID 05/03/17 Lisinopril 1 tablet PO DAILY 05/03/17 Acetaminophen [Tylenol Tablet] 650 mg PO Q6H PRN PRN tablet 06/28/17 Calcium (Elemental) [Os-Guido 500] 500 mg PO DAILY 07/08/17 Lactobacillus Acidophilus 1 each PO DAILY 07/08/17 [Acidophilus Lactobacilli] Magnesium Hydroxide [Milk Of 30 ml PO DAILY PRN PRN 07/08/17 Magnesia] proMETHazine tablet [Phenergan 25 mg PO Q4H PRN PRN 07/08/17 tablet] Bisacodyl 10 mg RECTAL QHS PRN PRN #30 08/15/17 supp.rect Diazepam [Valium] 5 mg PO 4X/DAY PRN PRN #30 tab 08/15/17 HYDROmorphone tablet [Dilaudid] 2 - 4 mg PO 4X/DAY PRN PRN #50 tab 08/15/17 Nutritional Supplement [Rodger - 1 packet PO BIDCM #60 packet 08/15/17 ORANGE FLAVOR] Polyethylene Glycol 3350 [Miralax] 17 gm PO DAILY #30 packet 08/15/17 Potassium Chloride [K-Dur] 20 meq PO DAILYCM #30 tab 08/15/17 fentaNYL patch [Duragesic patch] 50 mcg TRANSDERM. Q3D@1000 #5 patch 08/15/17 Diazepam [Valium] 5 mg PO BID PRN 10 Days #29 tab 08/17/17 Gabapentin [Neurontin] 300 mg PO BIDCM 30 Days #60 08/17/17 HYDROmorphone tablet [Dilaudid] 2 mg PO 4X/DAY PRN PRN 7 Days #30 08/17/17 tab Linezolid [Zyvox] 600 mg PO BID 14 Days #28 tab 08/17/17 0.9 % Sodium Chloride [Saline 210 ml MC .QDAILY 30 Days #10 08/18/17 Wound Wash] bottle Gauze Bandage [Gauze Pads] 6 ea TP .QDAILY 30 Days #180 08/18/17 bandage Gauze Bandage [Rolled Gauze] 2 ea TP .QDAILY 30 Days #60 bandage 08/18/17 Gloves [Nitrile Exam Gloves] 1 pair MC .QDAILY 30 Days #2 box 08/18/17 Silver/Hydrocolloid Dressing 2 ea TP .QDAILY 30 Days #60 bandage 08/18/17 [Aquacel-Ag W-Hydrofiber Dress] Levofloxacin [Levaquin] 500 mg PO .QDAILY 14 Days #14 tab 10/17/17 Oxycodone HCl/Acetaminophen 1 tab PO 4X/DAY PRN PRN 7 Days #30 10/19/17 [Percocet 5/325] tab fentaNYL patch [Duragesic patch] 25 mcg TRANSDERM. Q72H 15 Days #5 10/19/17 patch Maternal Family History: No pertinent history Paternal Family History: No pertinent history Smoking Status: Never smoker Tobacco Use: Non-smoker Physical Exam Vital Signs Temp Pulse Resp BP 98.2 F 64 16 120/73 10/24/17 11:25 10/24/17 11:25 10/24/17 11:25 10/24/17 11:25 General: Alert, Oriented x3, Cooperative, No apparent distress, Well developed, Well nourished HEENT: Atraumatic, PERRLA, EOMI, Normocephalic Lungs: Normal air movement Psych/Mental Status: Normal Affect, Appropriate, Alert and oriented to time, place, person, mood and affect Assessment/Plan There is to be tolerating hyperbaric oxygen therapy well, which will be continued as per the patient's medical plan.
--- NOTE | 2017-10-24 20:17 | PCM.WC.PN ---
Type of Wound Date of Service: 10/24/17 Chief Complaint: Nonhealing ulcers bilateral legs s/p skin grafting with some compromise and new onset ulcers left posterior ankle and right posterior ankle. History of Wound: Surgery 08/02/17 - 1. Excisional debridement nonhealing ulcer left posterior leg with STSG reconstruction from lower anterior abdominal wall (9 cm2). 2. Excisional debridement nonhealing ulcer left lateral leg with STSG reconstruction from lower anterior abdominal wall (30.5 cm2). 3. Excisional debridement nonhealing ulcer left anterior lower leg with STSG reconstruction from lower anterior abdominal wall (27 cm2). 4. Excisional debridement nonhealing ulcer right lateral leg with STSG reconstruction from lower anterior abdominal wall (14.25 cm2). 5. Excisional debridement nonhealing ulcer right anterior superior leg with STSG reconstruction from lower anterior abdominal wall (7 cm2). 6. Excisional debridement nonhealing ulcer right lower leg/medial ankle with STSG reconstruction from lower anterior abdominal wall (24.5 cm2). Wound care - Silver with Adaptic and NICKY wrap for compression. Operative culture - Enterococcus faecium. She was treated with Vancomycin and was discharged on Zyvox and has finished them (Insurance would not approve any more). There was another wound culture on 10/13/17 which showed Enterobacter. She was placed on Levaquin. Prealbumin from 07/30/17 was 22.5. She takes nutritional supplementation with protein to help the healing process. Today she denies fever. Her appetite is good. With her skin graft compromise, she would benefit from HBO treatments. We obtained an MRI prior to starting HBO to evaluate the status of the brain cancer. [facility] looked at it and stated the cancer was stable and not actively growing. So we started the HBO treatments. She is tolerating them thus far. Due to some pressure, possibly from the dressing, she has noted a new onset left posterior ankle ulceration and right posterior ankle ulceration. Progress of Wound: Bilateral legs skin graft surgery 08/02/17 with some compromise and new onset ulcers left posterior ankle and right posterior ankle. - Physical Exam Vital Signs Temp Pulse Resp BP 98.2 F 54 L 16 133/77 H 10/24/17 11:25 10/24/17 13:01 10/24/17 13:01 10/24/17 13:01 Wound Measurements and Assessment WC - Nurse 1 - General Ulcer Measurement Start: 10/17/17 13:03 Freq: Status: Active Protocol: Activity Type Activity Date Activity User E-Sign Co-Sign Detail Recorded Client Recorded Date Recorded By Document 10/24/17 11:25 [facility] [id number] 10/24/17 11:53 [facility] 10/24/17 11:25 Wound Center Nurse 1 [Ulcer Assessment] #20 R Lat Forearm -Combined with other wound No -Current Size (cm) - Length 0 -Current Size (cm) - Width 0 -Current Size (cm) - Depth 0 -Total Square Cm 0 -Date of Last Picture (Recall this 10/24/17 field) -Photo Taken Yes -Epithelialization Large 67-100% #13 R Achilles -Combined with other wound No -Current Size (cm) - Length 0.9 -Current Size (cm) - Width 0.8 -Current Size (cm) - Depth 0.2 -Total Square Cm 0.72 -Photo Taken No -Tunneling No -Undermining/Tunneling No -Exudate Amt Small (1-33%) -Exudate Type Serosanguineous -Wound Margin Distinct, Outline Attached -Granulation Amt Large (67-100%) -Granulation Quality Red -Slough/Fibrin No -Necrosis Amt None Present (0 %) -Structure Exposed None/Limited to Skin Breakdown -Texture (Riddhi-wound Skin Appearance) Scarring -Moisture (Riddhi-wound Skin Appearance Dry/Scaly ) -Color (Riddhi-wound Skin Appearance) Erythema -Temperature (Riddhi-wound Skin No Abnormality Appearance) (Pt Warm) -Tenderness on Palpation (Riddhi-wound No Skin Appearance) -Ulcer Cleansing Rinsed/ Irrigated with Saline -Foul Odor after Cleansing No -Anesthetic Used 4% Lidocaine Solution #12 L Achilles -Combined with other wound No -Current Size (cm) - Length 2.7 -Current Size (cm) - Width 2.2 -Current Size (cm) - Depth 0.3 -Total Square Cm 5.94 -Photo Taken No -Epithelialization None Present -Tunneling No -Undermining/Tunneling Yes -Undermining/Tunneling Starts (O' 12 clock) -Undermining/Tunneling Ends (O'clock) 1 -Maximum Distance (cm) 0.7 -Circular Undermining No -Exudate Amt Medium (34-66%) -Exudate Type Serosanguineous -Wound Margin Distinct, Outline Attached -Granulation Amt Large (67-100%) -Granulation Quality Red -Slough/Fibrin Yes -Necrosis Amt None Present (0 %) -Structure Exposed Tendon -Texture (Riddhi-wound Skin Appearance) Scarring -Moisture (Riddhi-wound Skin Appearance Dry/Scaly ) -Color (Riddhi-wound Skin Appearance) Erythema -Temperature (Riddhi-wound Skin No Abnormality Appearance) (Pt Warm) -Tenderness on Palpation (Riddhi-wound Yes Skin Appearance) -Ulcer Cleansing Rinsed/ Irrigated with Saline -Foul Odor after Cleansing No -Anesthetic Used 4% Lidocaine Solution #19 R Sup [place] -Combined with other wound No -Current Size (cm) - Length 1.4 -Current Size (cm) - Width 1 -Current Size (cm) - Depth 0.2 -Total Square Cm 1.4 -Photo Taken No -Epithelialization None Present -Tunneling No -Undermining/Tunneling Yes -Undermining/Tunneling Starts (O' 12 clock) -Undermining/Tunneling Ends (O'clock) 12 -Maximum Distance (cm) 0.5 -Circular Undermining Yes -Exudate Amt Small (1-33%) -Exudate Type Serosanguineous -Wound Margin Distinct, Outline Attached -Granulation Amt Medium (34-66%) -Granulation Quality Red -Slough/Fibrin Yes -Necrosis Amt Small (1-33%) -Necrotic Tissue Type Adherent Slough -Structure Exposed None/Limited to Skin Breakdown -Texture (Riddhi-wound Skin Appearance) Scarring -Moisture (Riddhi-wound Skin Appearance Dry/Scaly ) -Color (Riddhi-wound Skin Appearance) Erythema -Temperature (Riddhi-wound Skin No Abnormality Appearance) (Pt Warm) -Tenderness on Palpation (Riddhi-wound No Skin Appearance) -Ulcer Cleansing Rinsed/ Irrigated with Saline -Foul Odor after Cleansing No -Anesthetic Used 4% Lidocaine Solution #18 R Lat Leg -Combined with other wound No -Current Size (cm) - Length 2.5 -Current Size (cm) - Width 1.2 -Current Size (cm) - Depth 0.1 -Total Square Cm 3.00 -Photo Taken No -Epithelialization Large 67-100% -Tunneling No -Undermining/Tunneling No -Circular Undermining No -Exudate Amt None Present (0 %) -Wound Margin Distinct, Outline Attached -Granulation Amt None Present (0 %) -Slough/Fibrin Yes -Necrosis Amt Large (67-100%) -Necrotic Tissue Type Adherent Slough -Texture (Riddhi-wound Skin Appearance) Scarring -Moisture (Riddhi-wound Skin Appearance Dry/Scaly ) -Color (Riddhi-wound Skin Appearance) Assessed -Temperature (Riddhi-wound Skin No Abnormality Appearance) (Pt Warm) -Tenderness on Palpation (Riddhi-wound No Skin Appearance) -Ulcer Cleansing Rinsed/ Irrigated with Saline -Foul Odor after Cleansing No -Anesthetic Used 4% Lidocaine Solution #17 L Lower [place] -Combined with other wound No -Current Size (cm) - Length 5.5 -Current Size (cm) - Width 4.1 -Current Size (cm) - Depth 0.4 -Total Square Cm 22.55 -Photo Taken No -Epithelialization None Present -Tunneling No -Undermining/Tunneling No -Circular Undermining No -Exudate Amt Medium (34-66%) -Exudate Type Serosanguineous -Wound Margin Distinct, Outline Attached -Granulation Amt Large (67-100%) -Granulation Quality Red -Slough/Fibrin No -Necrosis Amt None Present (0 %) -Structure Exposed Tendon -Texture (Riddhi-wound Skin Appearance) Scarring -Moisture (Riddhi-wound Skin Appearance Dry/Scaly ) -Color (Riddhi-wound Skin Appearance) Assessed -Temperature (Riddhi-wound Skin No Abnormality Appearance) (Pt Warm) -Tenderness on Palpation (Riddhi-wound No Skin Appearance) -Ulcer Cleansing Rinsed/ Irrigated with Saline -Foul Odor after Cleansing No -Anesthetic Used 4% Lidocaine Solution #14 L Post Leg -Combined with other wound No -Current Size (cm) - Length 1 -Current Size (cm) - Width 0.8 -Current Size (cm) - Depth 0.2 -Total Square Cm 0.8 -Photo Taken No -Epithelialization None Present -Tunneling No -Undermining/Tunneling Yes -Undermining/Tunneling Starts (O' 12 clock) -Undermining/Tunneling Ends (O'clock) 6 -Maximum Distance (cm) 0.2 -Exudate Amt Small (1-33%) -Exudate Type Serosanguineous -Wound Margin Distinct, Outline Attached -Granulation Amt Large (67-100%) -Granulation Quality Red -Slough/Fibrin No -Necrosis Amt None Present (0 %) -Structure Exposed None/Limited to Skin Breakdown -Texture (Riddhi-wound Skin Appearance) Scarring -Moisture (Riddhi-wound Skin Appearance Dry/Scaly ) -Color (Riddhi-wound Skin Appearance) Assessed -Temperature (Riddhi-wound Skin No Abnormality Appearance) (Pt Warm) -Tenderness on Palpation (Riddhi-wound No Skin Appearance) -Ulcer Cleansing Rinsed/ Irrigated with Saline -Foul Odor after Cleansing No -Anesthetic Used 4% Lidocaine Solution [Edema Assessment] -Lower Limb Edema Present Yes -Right Calf (cm) 36.6 -Right Ankle (cm) 23 -Left Calf (cm) 37 -Left Ankle (cm) 23.3 WC - Nurse 2 - General Ulcer CM Notes Start: 10/17/17 13:03 Freq: Status: Active Protocol: Activity Type Activity Date Activity User E-Sign Co-Sign Detail Recorded Client Recorded Date Recorded By Document 10/24/17 12:08 RANDY [id number] 10/24/17 12:16 RANDY 10/24/17 12:08 Wound Center Nurse 2 [Procedure/Treatment] #13 R Achilles -Time 12:10 -Correct Patient Yes -Correct Side, Site, Position Yes -Correct Procedure Yes -Procedure Performed Yes -Type of Procedure Debridement -Clinical Debridement Subcutaneous -Post Debridement Size (cm) - Length 1 -Post Debridement Size (cm) - Width 0.8 -Post Debridement Size (cm) - Depth 0.2 -Total Square Cm 0.8 -Wound/Ulcer Outcome Not Healed -Ulcer Cleansing Rinsed/ Irrigated with Saline -Foul Odor after Cleansing No -Bioengineered Tissue No -Bleeding Controlled with Pressure -Treatment Response Procedure Tolerated Well #12 L Achilles -Time 12:15 -Correct Patient Yes -Correct Side, Site, Position Yes -Correct Procedure Yes -Procedure Performed Yes -Type of Procedure Debridement -Clinical Debridement Subcutaneous -Post Debridement Size (cm) - Length 2.8 -Post Debridement Size (cm) - Width 2.2 -Post Debridement Size (cm) - Depth 0.3 -Total Square Cm 6.16 -Wound/Ulcer Outcome Not Healed -Ulcer Cleansing Rinsed/ Irrigated with Saline -Foul Odor after Cleansing No -Bioengineered Tissue No -Bleeding Controlled with Pressure -Treatment Response Procedure Tolerated Well #19 R Sup [place] -Time 12:10 -Correct Patient Yes -Correct Side, Site, Position Yes -Correct Procedure Yes -Procedure Performed Yes -Type of Procedure Debridement -Clinical Debridement Subcutaneous -Post Debridement Size (cm) - Length 1.4 -Post Debridement Size (cm) - Width 1 -Post Debridement Size (cm) - Depth 0.4 -Total Square Cm 1.4 -Wound/Ulcer Outcome Not Healed -Ulcer Cleansing Rinsed/ Irrigated with Saline -Foul Odor after Cleansing No -Bioengineered Tissue No -Bleeding Controlled with Pressure -Treatment Response Procedure Tolerated Well #18 R Lat Leg -Time 12:10 -Correct Patient Yes -Correct Side, Site, Position Yes -Correct Procedure Yes -Procedure Performed Yes -Type of Procedure Debridement -Clinical Debridement Subcutaneous -Post Debridement Size (cm) - Length 2.5 -Post Debridement Size (cm) - Width 1.3 -Post Debridement Size (cm) - Depth 0.1 -Total Square Cm 3.25 -Wound/Ulcer Outcome Not Healed -Ulcer Cleansing Rinsed/ Irrigated with Saline -Foul Odor after Cleansing No -Bioengineered Tissue No -Bleeding Controlled with Pressure -Treatment Response Procedure Tolerated Well #17 L Lower [place] -Time 12:12 -Correct Patient Yes -Correct Side, Site, Position Yes -Correct Procedure Yes -Procedure Performed Yes -Type of Procedure Debridement -Clinical Debridement Muscle -Post Debridement Size (cm) - Length 5.5 -Post Debridement Size (cm) - Width 4.2 -Post Debridement Size (cm) - Depth 0.4 -Total Square Cm 23.10 -Wound/Ulcer Outcome Not Healed -Ulcer Cleansing Rinsed/ Irrigated with Saline -Foul Odor after Cleansing No -Bioengineered Tissue No -Bleeding Controlled with Pressure -Treatment Response Procedure Tolerated Well #14 L Post Leg -Time 12:15 -Correct Patient Yes -Correct Side, Site, Position Yes -Correct Procedure Yes -Procedure Performed Yes -Type of Procedure Debridement -Clinical Debridement Subcutaneous -Post Debridement Size (cm) - Length 1 -Post Debridement Size (cm) - Width 0.9 -Post Debridement Size (cm) - Depth 0.2 -Total Square Cm 0.9 -Wound/Ulcer Outcome Not Healed -Ulcer Cleansing Rinsed/ Irrigated with Saline -Foul Odor after Cleansing No -Bioengineered Tissue No -Bleeding Controlled with Pressure -Treatment Response Procedure Tolerated Well [See Physician Procedure note for Specifics] Pain Scale: 0-10 Numeric [Pain] -Is Patient Pain Free? Yes Debridement Note Post-Debridement Measurements/Treatment WC - Nurse 2 - General Ulcer CM Notes Start: 10/17/17 13:03 Freq: Status: Active Protocol: Activity Type Activity Date Activity User E-Sign Co-Sign Detail Recorded Client Recorded Date Recorded By Document 10/24/17 12:08 RANDY [id number] 10/24/17 12:16 RANDY 10/24/17 12:08 Wound Center Nurse 2 #13 R Achilles -Time 12:10 -Correct Patient Yes -Correct Side, Site, Position Yes -Correct Procedure Yes -Procedure Performed Yes -Type of Procedure Debridement -Clinical Debridement Subcutaneous -Post Debridement Size (cm) - Length 1 -Post Debridement Size (cm) - Width 0.8 -Post Debridement Size (cm) - Depth 0.2 -Total Square Cm 0.8 -Wound/Ulcer Outcome Not Healed -Ulcer Cleansing Rinsed/ Irrigated with Saline -Foul Odor after Cleansing No -Bioengineered Tissue No -Bleeding Controlled with Pressure -Treatment Response Procedure Tolerated Well #12 L Achilles -Time 12:15 -Correct Patient Yes -Correct Side, Site, Position Yes -Correct Procedure Yes -Procedure Performed Yes -Type of Procedure Debridement -Clinical Debridement Subcutaneous -Post Debridement Size (cm) - Length 2.8 -Post Debridement Size (cm) - Width 2.2 -Post Debridement Size (cm) - Depth 0.3 -Total Square Cm 6.16 -Wound/Ulcer Outcome Not Healed -Ulcer Cleansing Rinsed/ Irrigated with Saline -Foul Odor after Cleansing No -Bioengineered Tissue No -Bleeding Controlled with Pressure -Treatment Response Procedure Tolerated Well #19 R Sup [place] -Time 12:10 -Correct Patient Yes -Correct Side, Site, Position Yes -Correct Procedure Yes -Procedure Performed Yes -Type of Procedure Debridement -Clinical Debridement Subcutaneous -Post Debridement Size (cm) - Length 1.4 -Post Debridement Size (cm) - Width 1 -Post Debridement Size (cm) - Depth 0.4 -Total Square Cm 1.4 -Wound/Ulcer Outcome Not Healed -Ulcer Cleansing Rinsed/ Irrigated with Saline -Foul Odor after Cleansing No -Bioengineered Tissue No -Bleeding Controlled with Pressure -Treatment Response Procedure Tolerated Well #18 R Lat Leg -Time 12:10 -Correct Patient Yes -Correct Side, Site, Position Yes -Correct Procedure Yes -Procedure Performed Yes -Type of Procedure Debridement -Clinical Debridement Subcutaneous -Post Debridement Size (cm) - Length 2.5 -Post Debridement Size (cm) - Width 1.3 -Post Debridement Size (cm) - Depth 0.1 -Total Square Cm 3.25 -Wound/Ulcer Outcome Not Healed -Ulcer Cleansing Rinsed/ Irrigated with Saline -Foul Odor after Cleansing No -Bioengineered Tissue No -Bleeding Controlled with Pressure -Treatment Response Procedure Tolerated Well #17 L Lower [place] -Time 12:12 -Correct Patient Yes -Correct Side, Site, Position Yes -Correct Procedure Yes -Procedure Performed Yes -Type of Procedure Debridement -Clinical Debridement Muscle -Post Debridement Size (cm) - Length 5.5 -Post Debridement Size (cm) - Width 4.2 -Post Debridement Size (cm) - Depth 0.4 -Total Square Cm 23.10 -Wound/Ulcer Outcome Not Healed -Ulcer Cleansing Rinsed/ Irrigated with Saline -Foul Odor after Cleansing No -Bioengineered Tissue No -Bleeding Controlled with Pressure -Treatment Response Procedure Tolerated Well #14 L Post Leg -Time 12:15 -Correct Patient Yes -Correct Side, Site, Position Yes -Correct Procedure Yes -Procedure Performed Yes -Type of Procedure Debridement -Clinical Debridement Subcutaneous -Post Debridement Size (cm) - Length 1 -Post Debridement Size (cm) - Width 0.9 -Post Debridement Size (cm) - Depth 0.2 -Total Square Cm 0.9 -Wound/Ulcer Outcome Not Healed -Ulcer Cleansing Rinsed/ Irrigated with Saline -Foul Odor after Cleansing No -Bioengineered Tissue No -Bleeding Controlled with Pressure -Treatment Response Procedure Tolerated Well Pain Scale: 0-10 Numeric Is Patient Pain Free? Yes Wound debrided: #12 Left posterior ankle. Laterality: Left Wound Grade/Stage: 2. Type of Debridement: Excisional debridement Anesthesia Used: 4% Lidocaine Solution Depth: Down to and including healthy tissue, in the subcutaneous layer Percentage of wound debrided: 100 Instrument Used: 5mm curette Tissue Removed: subcutaneous tissue. Severity: Fat Layer Exposed Amount of bleeding with debridement: Mild Bleeding Controlled with: Pressure Patient tolerated procedure well - Additional Wound Wound debrided: #13 Right posterior ankle. Laterality: Right Wound Grade/Stage: 2. Type of Debridement: Excisional debridement Anesthesia Used: 4% Lidocaine Solution Depth: Down to and including healthy tissue, in the subcutaneous layer Percentage of wound debrided: 100 Instrument Used: 5mm curette Tissue Removed: subcutaneous tissue. Severity: Fat Layer Exposed Amount of bleeding with debridement: Mild Bleeding Controlled with: Pressure Patient tolerated procedure: Patient tolerated procedure well - Additional Wound Wound debrided: #14 Left posterior leg skin graft. Laterality: Left Wound Grade/Stage: 2. Type of Debridement: Excisional debridement Anesthesia Used: 4% Lidocaine Solution Depth: Down to and including healthy tissue, in the subcutaneous layer Percentage of wound debrided: 100 Instrument Used: 5mm curette Tissue Removed: subcutaneous tissue. Severity: Fat Layer Exposed Amount of bleeding with debridement: Mild Bleeding Controlled with: Pressure Patient tolerated procedure: Patient tolerated procedure well - Additional Wound Wound debrided: #17 Left anterior lower leg skin graft. Laterality: Left Wound Grade/Stage: 2. Type of Debridement: Excisional debridement Anesthesia Used: 4% Lidocaine Solution Depth: Down to and including healthy tissue, in the subcutaneous layer, to muscle Percentage of wound debrided: 100 Instrument Used: 5mm curette Tissue Removed: subcutaneous tissue and muscle. Severity: Fat Layer Exposed - muscle is exposed. Amount of bleeding with debridement: Mild Bleeding Controlled with: Pressure Patient tolerated procedure: Patient tolerated procedure well - Additional Wound Wound debrided: #18 Right lateral leg skin graft. Laterality: Right Wound Grade/Stage: 2. Type of Debridement: Excisional debridement Anesthesia Used: 4% Lidocaine Solution Depth: Down to and including healthy tissue, in the subcutaneous layer Percentage of wound debrided: 100 Instrument Used: 5mm curette Tissue Removed: subcutaneous tissue. Severity: Fat Layer Exposed Amount of bleeding with debridement: Mild Bleeding Controlled with: Pressure Patient tolerated procedure: Patient tolerated procedure well - Additional Wound Wound debrided: #19 Right anterior superior leg skin graft. Laterality: Right Wound Grade/Stage: 2. Type of Debridement: Excisional debridement Anesthesia Used: 4% Lidocaine Solution Depth: Down to and including healthy tissue, in the subcutaneous layer Percentage of wound debrided: 100 Instrument Used: 5mm curette Tissue Removed: subcutaneous tissue. Severity: Fat Layer Exposed Amount of bleeding with debridement: Mild Bleeding Controlled with: Pressure Patient tolerated procedure: Patient tolerated procedure well Assessment/Plan Assessment: 1. Nonhealing ulcer left posterior leg. 2. Nonhealing ulcer left anterior lower leg. 3. Nonhealing ulcer right lateral leg. 4. Nonhealing ulcer right anterior superior leg. 5. Brain tumor - receiving chemotherapy, on hold. 6. s/p excisional debridement nonhealing ulcer left posterior leg with STSG reconstruction from lower anterior abdominal wall (9 cm2) and excisional debridement nonhealing ulcer left lateral leg with STSG reconstruction from lower anterior abdominal wall (30.5 cm2) and excisional debridement nonhealing ulcer left anterior lower leg with STSG reconstruction from lower anterior abdominal wall (27 cm2) and excisional debridement nonhealing ulcer right lateral leg with STSG reconstruction from lower anterior abdominal wall (14.25 cm2) and excisional debridement nonhealing ulcer right anterior superior leg with STSG reconstruction from lower anterior abdominal wall (7 cm2) and excisional debridement nonhealing ulcer right lower leg/medial ankle with STSG reconstruction from lower anterior abdominal wall (24.5 cm2). 7. Early compromise to skin grafts bilateral leg ulcers with the biggest compromise to the left anterior lower leg graft. 8. Nonhealing ulcer left posterior ankle. 9. Nonhealing ulcer right posterior ankle. Plan: Continue Silvercel daily to the grafts with Surepress compression. Also apply Silver to the two new onset ulcers in the left posterior ankle and right posterior ankle. The Silver is starting to dry out the ulcers. Will add Adaptic to the ulcers. It will also help the tendons from drying out as well. Her abdominal wall donor incision is healing satisfactory. 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 With her compromised skin grafts, she needs HBO treatments to help salvage the compromise. It has been approved. Another wound culture was done on 10/13/17 which showed Enterobacter cloacae. She was started on Levaquin and is tolerating them. Chemotherapy continues to be on hold because of the skin graft compromise. An MRI was done to evaluate the brain cancer before starting HBO, and according to [facility], the MRI was ok as the cancer has stabilized and is not actively growing at this time. She has started HBO treatments and is tolerating them thus far. Followup 2 weeks. Her Prealbumin from 07/30/17 was 22.5. She takes nutritional supplementation with protein to help the healing process. A lot of progress was noted today with healing of the compromised skin grafts. The right lateral leg skin graft is almost healed. The right anterior superior leg skin graft wound is getting smaller and may be able to be closed at surgery with a localized skin flap. Both the right posterior ankle and left posterior leg ulcers are showing more granulation tissue. The left posterior ankle ulcer is healing and getting smaller with less exposure of the tendon. The left anterior lower leg skin graft ulcer is also getting smaller and the wound base is stabilizing and is the main one that will need a complete new skin graft. She would benefit from additional HBO treatments since it appears to be strengthening the skin graft ulcers with improved salvage. The goal is to minimize the need for additional surgery and if surgery is needed, it would be less extensive as a result of the HBO treatments.
[2017-10-26 14:05] VITALS: BP 129/79; BP 143/83; PULSE 55; PULSE 60; RESP 16; TEMP 36.2; TEMP 36.8
--- NOTE | 2017-10-26 19:22 | PCM.HBO.PN ---
History of Present Illness Date of Service: 10/26/17 Presenting Chief Complaint: Compromised skin grafts bilateral lower extremities. GEORGINA SKINNER is a 57 year old currently undergoing hyperbaric oxygen therapy for compromised skin grafts bilateral lower extremities. Progress: Hyperbaric oxygen therapy was administered today, and was well tolerated by the patient. Today represents the 12th such hyperbaric oxygen treatment. Tolerance of hyperbaric oxygen therapy: Hyperbaric oxygen therapy was administered as per the facility's protocol. Today's hyperbaric oxygen treatment represents the 9th such treatment. The patient tolerated hyperbaric oxygen therapy well, without significant complications. The hyperbaric oxygen treatment was completed in its entirety. Upon emergence from the hyperbaric chamber, patient's vital signs were noted to be stable. She was discharged in good condition. Past Medical History Chronic Problems (Last Updated 10/07/17 @ 16:44 by Sari Hawk DO) Glioblastoma multiforme (Chronic) Allergies/Adverse Reactions: Allergies adhesive tape Adverse Reaction (Verified 06/24/17 09:09) VERY THIN STEROID SKIN WILL REMOVE SKIN IF ON TOO LONG Home Medications: Ambulatory Orders Medication Instructions Recorded Cholecalciferol (Vitamin D3) 5,000 unit PO DAILY 03/02/17 [Vitamin D3] Dexamethasone 3 mg PO DAILY 03/02/17 Famotidine [Pepcid] 20 mg PO BID 03/02/17 Multivitamin [Daily Multiple 1 each PO DAILY 03/02/17 Vitamin] Ondansetron [Zofran] 8 mg PO Q8H PRN PRN 03/02/17 Levetiracetam 750 mg PO BID 05/03/17 Lisinopril 1 tablet PO DAILY 05/03/17 Acetaminophen [Tylenol Tablet] 650 mg PO Q6H PRN PRN tablet 06/28/17 Calcium (Elemental) [Os-Guido 500] 500 mg PO DAILY 07/08/17 Lactobacillus Acidophilus 1 each PO DAILY 07/08/17 [Acidophilus Lactobacilli] Magnesium Hydroxide [Milk Of 30 ml PO DAILY PRN PRN 07/08/17 Magnesia] proMETHazine tablet [Phenergan 25 mg PO Q4H PRN PRN 07/08/17 tablet] Bisacodyl 10 mg RECTAL QHS PRN PRN #30 08/15/17 supp.rect Diazepam [Valium] 5 mg PO 4X/DAY PRN PRN #30 tab 08/15/17 HYDROmorphone tablet [Dilaudid] 2 - 4 mg PO 4X/DAY PRN PRN #50 tab 08/15/17 Nutritional Supplement [Rodger - 1 packet PO BIDCM #60 packet 08/15/17 ORANGE FLAVOR] Polyethylene Glycol 3350 [Miralax] 17 gm PO DAILY #30 packet 08/15/17 Potassium Chloride [K-Dur] 20 meq PO DAILYCM #30 tab 08/15/17 fentaNYL patch [Duragesic patch] 50 mcg TRANSDERM. Q3D@1000 #5 patch 08/15/17 Diazepam [Valium] 5 mg PO BID PRN 10 Days #29 tab 08/17/17 Gabapentin [Neurontin] 300 mg PO BIDCM 30 Days #60 08/17/17 HYDROmorphone tablet [Dilaudid] 2 mg PO 4X/DAY PRN PRN 7 Days #30 08/17/17 tab Linezolid [Zyvox] 600 mg PO BID 14 Days #28 tab 08/17/17 0.9 % Sodium Chloride [Saline 210 ml MC .QDAILY 30 Days #10 08/18/17 Wound Wash] bottle Gauze Bandage [Gauze Pads] 6 ea TP .QDAILY 30 Days #180 08/18/17 bandage Gauze Bandage [Rolled Gauze] 2 ea TP .QDAILY 30 Days #60 bandage 08/18/17 Gloves [Nitrile Exam Gloves] 1 pair MC .QDAILY 30 Days #2 box 08/18/17 Silver/Hydrocolloid Dressing 2 ea TP .QDAILY 30 Days #60 bandage 08/18/17 [Aquacel-Ag W-Hydrofiber Dress] Levofloxacin [Levaquin] 500 mg PO .QDAILY 14 Days #14 tab 10/17/17 Oxycodone HCl/Acetaminophen 1 tab PO 4X/DAY PRN PRN 7 Days #30 10/19/17 [Percocet 5/325] tab fentaNYL patch [Duragesic patch] 25 mcg TRANSDERM. Q72H 15 Days #5 10/19/17 patch Maternal Family History: No pertinent history Paternal Family History: No pertinent history Smoking Status: Never smoker Tobacco Use: Non-smoker Physical Exam Vital Signs Temp Pulse Resp BP 98.2 F 60 16 129/79 H 10/26/17 14:05 10/26/17 14:05 10/26/17 14:05 10/26/17 14:05
[2017-10-28 12:55] VITALS: BP 118/75; BP 123/76; PULSE 52; PULSE 59; RESP 16; TEMP 36.6
--- NOTE | 2017-10-28 14:45 | PCM.HBO.PN ---
History of Present Illness Date of Service: 10/28/17 Presenting Chief Complaint: Compromised skin grafts bilateral lower extremities. GEORGINA SKINNER is a 57 year old currently undergoing hyperbaric oxygen therapy for compromised skin grafts bilateral lower extremities. Progress: Hyperbaric oxygen therapy was administered today, and was well tolerated by the patient. Today represents the 9th such hyperbaric oxygen treatment. Tolerance of hyperbaric oxygen therapy: Hyperbaric oxygen therapy was administered as per the facility's protocol. Today's hyperbaric oxygen treatment represents the 9th such treatment. The patient tolerated hyperbaric oxygen therapy well, without significant complications. The hyperbaric oxygen treatment was completed in its entirety. Upon emergence from the hyperbaric chamber, patient's vital signs were noted to be stable. She was discharged in good condition. Past Medical History Chronic Problems (Last Updated 10/07/17 @ 16:44 by Sari Hawk DO) Glioblastoma multiforme (Chronic) Allergies/Adverse Reactions: Allergies adhesive tape Adverse Reaction (Verified 06/24/17 09:09) VERY THIN STEROID SKIN WILL REMOVE SKIN IF ON TOO LONG Home Medications: Ambulatory Orders Medication Instructions Recorded Cholecalciferol (Vitamin D3) 5,000 unit PO DAILY 03/02/17 [Vitamin D3] Dexamethasone 3 mg PO DAILY 03/02/17 Famotidine [Pepcid] 20 mg PO BID 03/02/17 Multivitamin [Daily Multiple 1 each PO DAILY 03/02/17 Vitamin] Ondansetron [Zofran] 8 mg PO Q8H PRN PRN 03/02/17 Levetiracetam 750 mg PO BID 05/03/17 Lisinopril 1 tablet PO DAILY 05/03/17 Acetaminophen [Tylenol Tablet] 650 mg PO Q6H PRN PRN tablet 06/28/17 Calcium (Elemental) [Os-Guido 500] 500 mg PO DAILY 07/08/17 Lactobacillus Acidophilus 1 each PO DAILY 07/08/17 [Acidophilus Lactobacilli] Magnesium Hydroxide [Milk Of 30 ml PO DAILY PRN PRN 07/08/17 Magnesia] proMETHazine tablet [Phenergan 25 mg PO Q4H PRN PRN 07/08/17 tablet] Bisacodyl 10 mg RECTAL QHS PRN PRN #30 08/15/17 supp.rect Diazepam [Valium] 5 mg PO 4X/DAY PRN PRN #30 tab 08/15/17 HYDROmorphone tablet [Dilaudid] 2 - 4 mg PO 4X/DAY PRN PRN #50 tab 08/15/17 Nutritional Supplement [Rodger - 1 packet PO BIDCM #60 packet 08/15/17 ORANGE FLAVOR] Polyethylene Glycol 3350 [Miralax] 17 gm PO DAILY #30 packet 08/15/17 Potassium Chloride [K-Dur] 20 meq PO DAILYCM #30 tab 08/15/17 fentaNYL patch [Duragesic patch] 50 mcg TRANSDERM. Q3D@1000 #5 patch 08/15/17 Diazepam [Valium] 5 mg PO BID PRN 10 Days #29 tab 08/17/17 Gabapentin [Neurontin] 300 mg PO BIDCM 30 Days #60 08/17/17 HYDROmorphone tablet [Dilaudid] 2 mg PO 4X/DAY PRN PRN 7 Days #30 08/17/17 tab Linezolid [Zyvox] 600 mg PO BID 14 Days #28 tab 08/17/17 0.9 % Sodium Chloride [Saline 210 ml MC .QDAILY 30 Days #10 08/18/17 Wound Wash] bottle Gauze Bandage [Gauze Pads] 6 ea TP .QDAILY 30 Days #180 08/18/17 bandage Gauze Bandage [Rolled Gauze] 2 ea TP .QDAILY 30 Days #60 bandage 08/18/17 Gloves [Nitrile Exam Gloves] 1 pair MC .QDAILY 30 Days #2 box 08/18/17 Silver/Hydrocolloid Dressing 2 ea TP .QDAILY 30 Days #60 bandage 08/18/17 [Aquacel-Ag W-Hydrofiber Dress] Levofloxacin [Levaquin] 500 mg PO .QDAILY 14 Days #14 tab 10/17/17 Oxycodone HCl/Acetaminophen 1 tab PO 4X/DAY PRN PRN 7 Days #30 10/19/17 [Percocet 5/325] tab fentaNYL patch [Duragesic patch] 25 mcg TRANSDERM. Q72H 15 Days #5 10/19/17 patch Maternal Family History: No pertinent history Paternal Family History: No pertinent history Smoking Status: Never smoker Tobacco Use: Non-smoker Physical Exam Vital Signs Temp Pulse Resp BP 97.9 F 59 L 16 118/75 10/28/17 12:55 10/28/17 12:55 10/28/17 12:55 10/28/17 12:55 Assessment/Plan There is to be tolerating hyperbaric oxygen therapy well, which will be continued as per the patient's medical plan.
[2017-10-31 13:08] VITALS: BP 107/64; BP 112/75; PULSE 51; PULSE 54; RESP 18; TEMP 36.1; TEMP 36.2
--- NOTE | 2017-10-31 16:03 | PCM.HBO.PN ---
History of Present Illness Date of Service: 10/31/17 Presenting Chief Complaint: Compromised skin grafts bilateral lower extremities. GEORGINA SKINNER is a 57 year old currently undergoing hyperbaric oxygen therapy for compromised skin grafts bilateral lower extremities. Progress: Hyperbaric oxygen therapy was administered today, and was well tolerated by the patient. Today represents the 14th such hyperbaric oxygen treatment. Tolerance of hyperbaric oxygen therapy: Hyperbaric oxygen therapy was administered as per the facility's protocol. Today's hyperbaric oxygen treatment represents the 14th such treatment. The patient tolerated hyperbaric oxygen therapy well, without complaints or complications. The hyperbaric oxygen treatment was completed in its entirety. Upon emergence from the hyperbaric chamber, patient's vital signs were noted to be stable. She was discharged in good condition. Past Medical History Chronic Problems (Last Updated 10/07/17 @ 16:44 by Sari Hawk DO) Glioblastoma multiforme (Chronic) Allergies/Adverse Reactions: Allergies adhesive tape Adverse Reaction (Verified 06/24/17 09:09) VERY THIN STEROID SKIN WILL REMOVE SKIN IF ON TOO LONG Home Medications: Ambulatory Orders Medication Instructions Recorded Cholecalciferol (Vitamin D3) 5,000 unit PO DAILY 03/02/17 [Vitamin D3] Dexamethasone 3 mg PO DAILY 03/02/17 Famotidine [Pepcid] 20 mg PO BID 03/02/17 Multivitamin [Daily Multiple 1 each PO DAILY 03/02/17 Vitamin] Ondansetron [Zofran] 8 mg PO Q8H PRN PRN 03/02/17 Levetiracetam 750 mg PO BID 05/03/17 Lisinopril 1 tablet PO DAILY 05/03/17 Acetaminophen [Tylenol Tablet] 650 mg PO Q6H PRN PRN tablet 06/28/17 Calcium (Elemental) [Os-Guido 500] 500 mg PO DAILY 07/08/17 Lactobacillus Acidophilus 1 each PO DAILY 07/08/17 [Acidophilus Lactobacilli] Magnesium Hydroxide [Milk Of 30 ml PO DAILY PRN PRN 07/08/17 Magnesia] proMETHazine tablet [Phenergan 25 mg PO Q4H PRN PRN 07/08/17 tablet] Bisacodyl 10 mg RECTAL QHS PRN PRN #30 08/15/17 supp.rect Diazepam [Valium] 5 mg PO 4X/DAY PRN PRN #30 tab 08/15/17 HYDROmorphone tablet [Dilaudid] 2 - 4 mg PO 4X/DAY PRN PRN #50 tab 08/15/17 Nutritional Supplement [Rodger - 1 packet PO BIDCM #60 packet 08/15/17 ORANGE FLAVOR] Polyethylene Glycol 3350 [Miralax] 17 gm PO DAILY #30 packet 08/15/17 Potassium Chloride [K-Dur] 20 meq PO DAILYCM #30 tab 08/15/17 fentaNYL patch [Duragesic patch] 50 mcg TRANSDERM. Q3D@1000 #5 patch 08/15/17 Diazepam [Valium] 5 mg PO BID PRN 10 Days #29 tab 08/17/17 Gabapentin [Neurontin] 300 mg PO BIDCM 30 Days #60 08/17/17 HYDROmorphone tablet [Dilaudid] 2 mg PO 4X/DAY PRN PRN 7 Days #30 08/17/17 tab Linezolid [Zyvox] 600 mg PO BID 14 Days #28 tab 08/17/17 0.9 % Sodium Chloride [Saline 210 ml MC .QDAILY 30 Days #10 08/18/17 Wound Wash] bottle Gauze Bandage [Gauze Pads] 6 ea TP .QDAILY 30 Days #180 08/18/17 bandage Gauze Bandage [Rolled Gauze] 2 ea TP .QDAILY 30 Days #60 bandage 08/18/17 Gloves [Nitrile Exam Gloves] 1 pair MC .QDAILY 30 Days #2 box 08/18/17 Silver/Hydrocolloid Dressing 2 ea TP .QDAILY 30 Days #60 bandage 08/18/17 [Aquacel-Ag W-Hydrofiber Dress] Levofloxacin [Levaquin] 500 mg PO .QDAILY 14 Days #14 tab 10/17/17 Oxycodone HCl/Acetaminophen 1 tab PO 4X/DAY PRN PRN 7 Days #30 10/19/17 [Percocet 5/325] tab fentaNYL patch [Duragesic patch] 25 mcg TRANSDERM. Q72H 15 Days #5 10/19/17 patch Maternal Family History: No pertinent history Paternal Family History: No pertinent history Smoking Status: Never smoker Tobacco Use: Non-smoker Physical Exam Vital Signs Temp Pulse Resp BP 96.9 F L 51 L 18 112/75 10/31/17 13:08 10/31/17 13:08 10/31/17 13:08 10/31/17 13:08 General: Alert, Oriented x3, Cooperative, No apparent distress, Well developed, Well nourished HEENT: Atraumatic, PERRLA, EOMI, Normocephalic Lungs: Normal air movement Psych/Mental Status: Normal Affect, Appropriate, Alert and oriented to time, place, person, mood and affect Assessment/Plan The patient appears to be tolerating hyperbaric oxygen therapy well, which will be continued as per the patient's medical plan.
[2017-11-02 13:32] VITALS: BP 121/77; BP 133/85; PULSE 47; PULSE 51; RESP 16; TEMP 35.9; TEMP 36.3
--- NOTE | 2017-11-03 11:05 | NURSING ---
Spoke with pt insurance, [employer], on 11/02/17 regarding dates of service change and adding additional txs per Dr. Moya. Initial call made at 1210, at 1218 spoke with Oma Elkins who was unable to access account so transferred to local extension. At 1220 spoke with Aly Bell, explained to him what was needed. He stated that a nurse would have to do what was needed, once again transferred to the nurse line. Was on hold until 1252 when this nurse left a message (d/t having pts in the chamber preparing to come out) to have a call back regarding the case. This nurse also faxed the necessary documentation and stated that it was urgent and message left to respond. As of today 11/03/17 there has been no response. Per pt pre-approval notifications from [employer] (present under the Hyperbaric Medicine tab in chart), they state the pt is allowed 80 visits for codes G0277 and 20 visits for codes 26443. Clarification about visits and why the amounts did match, was asked for by this nurse to Aly Bell at [employer] and he was unable to do so. Will attempt to contact [employer] nursing to resolve confusion and extend pts treatments.
[2017-11-03 14:06] VITALS: BP 110/68; BP 125/81; PULSE 50; PULSE 52; RESP 16; TEMP 36.2; TEMP 36.4
--- NOTE | 2017-11-03 16:40 | PCM.HBO.PN ---
History of Present Illness Date of Service: 11/03/17 Presenting Chief Complaint: Nonhealing ulcers bilateral legs s/p skin grafting with some compromise and new onset ulcers left posterior ankle and right posterior ankle. GEORGINA SKINNER is a 57 year old currently undergoing hyperbaric oxygen therapy for compromised skin grafts bilateral lower extremities. Progress: Hyperbaric oxygen therapy was administered today, and was well tolerated by the patient. Tolerance of hyperbaric oxygen therapy: Hyperbaric oxygen therapy was administered as per the facility's protocol. The patient tolerated hyperbaric oxygen therapy well, without significant complications. The hyperbaric oxygen treatment was completed in its entirety. Upon emergence from the hyperbaric chamber, patient's vital signs were noted to be stable. She was discharged in good condition. Past Medical History Chronic Problems (Last Updated 10/07/17 @ 16:44 by Sari Hawk DO) Glioblastoma multiforme (Chronic) Allergies/Adverse Reactions: Allergies adhesive tape Adverse Reaction (Verified 06/24/17 09:09) VERY THIN STEROID SKIN WILL REMOVE SKIN IF ON TOO LONG Home Medications: Ambulatory Orders Medication Instructions Recorded Cholecalciferol (Vitamin D3) 5,000 unit PO DAILY 03/02/17 [Vitamin D3] Dexamethasone 3 mg PO DAILY 03/02/17 Famotidine [Pepcid] 20 mg PO BID 03/02/17 Multivitamin [Daily Multiple 1 each PO DAILY 03/02/17 Vitamin] Ondansetron [Zofran] 8 mg PO Q8H PRN PRN 03/02/17 Levetiracetam 750 mg PO BID 05/03/17 Lisinopril 1 tablet PO DAILY 05/03/17 Acetaminophen [Tylenol Tablet] 650 mg PO Q6H PRN PRN tablet 06/28/17 Calcium (Elemental) [Os-Guido 500] 500 mg PO DAILY 07/08/17 Lactobacillus Acidophilus 1 each PO DAILY 07/08/17 [Acidophilus Lactobacilli] Magnesium Hydroxide [Milk Of 30 ml PO DAILY PRN PRN 07/08/17 Magnesia] proMETHazine tablet [Phenergan 25 mg PO Q4H PRN PRN 07/08/17 tablet] Bisacodyl 10 mg RECTAL QHS PRN PRN #30 08/15/17 supp.rect Diazepam [Valium] 5 mg PO 4X/DAY PRN PRN #30 tab 08/15/17 HYDROmorphone tablet [Dilaudid] 2 - 4 mg PO 4X/DAY PRN PRN #50 tab 08/15/17 Nutritional Supplement [Rodger - 1 packet PO BIDCM #60 packet 08/15/17 ORANGE FLAVOR] Polyethylene Glycol 3350 [Miralax] 17 gm PO DAILY #30 packet 08/15/17 Potassium Chloride [K-Dur] 20 meq PO DAILYCM #30 tab 08/15/17 fentaNYL patch [Duragesic patch] 50 mcg TRANSDERM. Q3D@1000 #5 patch 08/15/17 Diazepam [Valium] 5 mg PO BID PRN 10 Days #29 tab 08/17/17 Gabapentin [Neurontin] 300 mg PO BIDCM 30 Days #60 08/17/17 HYDROmorphone tablet [Dilaudid] 2 mg PO 4X/DAY PRN PRN 7 Days #30 08/17/17 tab Linezolid [Zyvox] 600 mg PO BID 14 Days #28 tab 08/17/17 0.9 % Sodium Chloride [Saline 210 ml MC .QDAILY 30 Days #10 08/18/17 Wound Wash] bottle Gauze Bandage [Gauze Pads] 6 ea TP .QDAILY 30 Days #180 08/18/17 bandage Gauze Bandage [Rolled Gauze] 2 ea TP .QDAILY 30 Days #60 bandage 08/18/17 Gloves [Nitrile Exam Gloves] 1 pair MC .QDAILY 30 Days #2 box 08/18/17 Silver/Hydrocolloid Dressing 2 ea TP .QDAILY 30 Days #60 bandage 08/18/17 [Aquacel-Ag W-Hydrofiber Dress] Levofloxacin [Levaquin] 500 mg PO .QDAILY 14 Days #14 tab 10/17/17 Oxycodone HCl/Acetaminophen 1 tab PO 4X/DAY PRN PRN 7 Days #30 10/19/17 [Percocet 5/325] tab fentaNYL patch [Duragesic patch] 25 mcg TRANSDERM. Q72H 15 Days #5 10/19/17 patch Maternal Family History: No pertinent history Paternal Family History: No pertinent history Smoking Status: Never smoker Tobacco Use: Non-smoker Physical Exam Vital Signs Temp Pulse Resp BP 97.1 F L 50 L 16 125/81 H 11/03/17 14:06 11/03/17 14:06 11/03/17 14:06 11/03/17 14:06 General: Alert, Oriented x3, Cooperative, No apparent distress HEENT: Atraumatic, PERRLA, TM's Clear, EAC Clear Lungs: Clear to auscultation, Normal air movement Cardiovascular: Regular rate Psych/Mental Status: Normal Affect, Appropriate, Alert and oriented to time, place, person, mood and affect Assessment/Plan The patient appears to be tolerating hyperbaric oxygen therapy well, which will be continued as per the patient's medical plan.
[2017-11-04 12:45] VITALS: BP 120/75; BP 130/75; PULSE 48; PULSE 59; RESP 16; TEMP 36.2; TEMP 36.6
--- NOTE | 2017-11-04 13:37 | PCM.HBO.PN ---
History of Present Illness Date of Service: 11/04/17 Presenting Chief Complaint: Nonhealing ulcers bilateral legs s/p skin grafting with some compromise and new onset ulcers left posterior ankle and right posterior ankle. GEORGINA SKINNER is a 57 year old currently undergoing hyperbaric oxygen therapy for compromised skin grafts bilateral lower extremities. Progress: Hyperbaric oxygen therapy was administered today, and was well tolerated by the patient. Tolerance of hyperbaric oxygen therapy: Hyperbaric oxygen therapy was administered as per the facility's protocol. The patient tolerated hyperbaric oxygen therapy well, without significant complications. The hyperbaric oxygen treatment was completed in its entirety. Upon emergence from the hyperbaric chamber, patient's vital signs were noted to be stable. She was discharged in good condition. Past Medical History Chronic Problems (Last Updated 10/07/17 @ 16:44 by Sari Hawk DO) Glioblastoma multiforme (Chronic) Allergies/Adverse Reactions: Allergies adhesive tape Adverse Reaction (Verified 06/24/17 09:09) VERY THIN STEROID SKIN WILL REMOVE SKIN IF ON TOO LONG Home Medications: Ambulatory Orders Medication Instructions Recorded Cholecalciferol (Vitamin D3) 5,000 unit PO DAILY 03/02/17 [Vitamin D3] Dexamethasone 3 mg PO DAILY 03/02/17 Famotidine [Pepcid] 20 mg PO BID 03/02/17 Multivitamin [Daily Multiple 1 each PO DAILY 03/02/17 Vitamin] Ondansetron [Zofran] 8 mg PO Q8H PRN PRN 03/02/17 Levetiracetam 750 mg PO BID 05/03/17 Lisinopril 1 tablet PO DAILY 05/03/17 Acetaminophen [Tylenol Tablet] 650 mg PO Q6H PRN PRN tablet 06/28/17 Calcium (Elemental) [Os-Guido 500] 500 mg PO DAILY 07/08/17 Lactobacillus Acidophilus 1 each PO DAILY 07/08/17 [Acidophilus Lactobacilli] Magnesium Hydroxide [Milk Of 30 ml PO DAILY PRN PRN 07/08/17 Magnesia] proMETHazine tablet [Phenergan 25 mg PO Q4H PRN PRN 07/08/17 tablet] Bisacodyl 10 mg RECTAL QHS PRN PRN #30 08/15/17 supp.rect Diazepam [Valium] 5 mg PO 4X/DAY PRN PRN #30 tab 08/15/17 HYDROmorphone tablet [Dilaudid] 2 - 4 mg PO 4X/DAY PRN PRN #50 tab 08/15/17 Nutritional Supplement [Rodger - 1 packet PO BIDCM #60 packet 08/15/17 ORANGE FLAVOR] Polyethylene Glycol 3350 [Miralax] 17 gm PO DAILY #30 packet 08/15/17 Potassium Chloride [K-Dur] 20 meq PO DAILYCM #30 tab 08/15/17 fentaNYL patch [Duragesic patch] 50 mcg TRANSDERM. Q3D@1000 #5 patch 08/15/17 Diazepam [Valium] 5 mg PO BID PRN 10 Days #29 tab 08/17/17 Gabapentin [Neurontin] 300 mg PO BIDCM 30 Days #60 08/17/17 HYDROmorphone tablet [Dilaudid] 2 mg PO 4X/DAY PRN PRN 7 Days #30 08/17/17 tab Linezolid [Zyvox] 600 mg PO BID 14 Days #28 tab 08/17/17 0.9 % Sodium Chloride [Saline 210 ml MC .QDAILY 30 Days #10 08/18/17 Wound Wash] bottle Gauze Bandage [Gauze Pads] 6 ea TP .QDAILY 30 Days #180 08/18/17 bandage Gauze Bandage [Rolled Gauze] 2 ea TP .QDAILY 30 Days #60 bandage 08/18/17 Gloves [Nitrile Exam Gloves] 1 pair MC .QDAILY 30 Days #2 box 08/18/17 Silver/Hydrocolloid Dressing 2 ea TP .QDAILY 30 Days #60 bandage 08/18/17 [Aquacel-Ag W-Hydrofiber Dress] Levofloxacin [Levaquin] 500 mg PO .QDAILY 14 Days #14 tab 10/17/17 Oxycodone HCl/Acetaminophen 1 tab PO 4X/DAY PRN PRN 7 Days #30 10/19/17 [Percocet 5/325] tab fentaNYL patch [Duragesic patch] 25 mcg TRANSDERM. Q72H 15 Days #5 10/19/17 patch Maternal Family History: No pertinent history Paternal Family History: No pertinent history Smoking Status: Never smoker Tobacco Use: Non-smoker Physical Exam Vital Signs Temp Pulse Resp BP 97.9 F 59 L 16 120/75 11/04/17 12:45 11/04/17 12:45 11/04/17 12:45 11/04/17 12:45 Assessment/Plan The patient appears to be tolerating hyperbaric oxygen therapy well, which will be continued as per the patient's medical plan.
--- NOTE | 2017-11-04 15:14 | NURSING ---
This nurse spoke with AMY Whalen with [facility] to increase the number of txs and dates of service for the pt. [place] 20 more [place] for [address] and 80 units for G0277, meaning and additional 20 txs to bring her total to 40. Dates of service will be 11/07/17- 12/06/17. In the case addidtional txs are ordered will again contact [facility] with updated progress notes stating medical necessity. Reference number for the call is the case #[id number].
[2017-11-07 11:54] VITALS: BP 139/91; PULSE 55; RESP 16; TEMP 36.2
[2017-11-07 13:21] VITALS: BP 137/75; PULSE 46; RESP 16; TEMP 36.2
--- NOTE | 2017-11-07 17:53 | PCM.HBO.PN ---
History of Present Illness Date of Service: 11/07/17 Presenting Chief Complaint: Nonhealing ulcers bilateral legs s/p skin grafting with some compromise and new onset ulcers left posterior ankle and right posterior ankle. GEORGINA SKINNER is a 57 year old currently undergoing hyperbaric oxygen therapy for compromised skin grafts bilateral lower extremities. Progress: Hyperbaric oxygen therapy was administered today, and was well tolerated by the patient. Today's hyperbaric oxygen session represents the 18th such session of hyperbaric oxygen therapy. Tolerance of hyperbaric oxygen therapy: Hyperbaric oxygen therapy was administered as per the facility's protocol. The patient tolerated hyperbaric oxygen therapy well, without complaints or complications. The hyperbaric oxygen treatment was completed in its entirety. Upon emergence from the hyperbaric chamber, patient's vital signs were noted to be stable. She was discharged in good condition. Past Medical History Chronic Problems (Last Updated 10/07/17 @ 16:44 by Sari Hawk DO) Glioblastoma multiforme (Chronic) Allergies/Adverse Reactions: Allergies adhesive tape Adverse Reaction (Verified 06/24/17 09:09) VERY THIN STEROID SKIN WILL REMOVE SKIN IF ON TOO LONG Home Medications: Ambulatory Orders Medication Instructions Recorded Cholecalciferol (Vitamin D3) 5,000 unit PO DAILY 03/02/17 [Vitamin D3] Dexamethasone 3 mg PO DAILY 03/02/17 Famotidine [Pepcid] 20 mg PO BID 03/02/17 Multivitamin [Daily Multiple 1 each PO DAILY 03/02/17 Vitamin] Ondansetron [Zofran] 8 mg PO Q8H PRN PRN 03/02/17 Levetiracetam 750 mg PO BID 05/03/17 Lisinopril 1 tablet PO DAILY 05/03/17 Acetaminophen [Tylenol Tablet] 650 mg PO Q6H PRN PRN tablet 06/28/17 Calcium (Elemental) [Os-Guido 500] 500 mg PO DAILY 07/08/17 Lactobacillus Acidophilus 1 each PO DAILY 07/08/17 [Acidophilus Lactobacilli] Magnesium Hydroxide [Milk Of 30 ml PO DAILY PRN PRN 07/08/17 Magnesia] proMETHazine tablet [Phenergan 25 mg PO Q4H PRN PRN 07/08/17 tablet] Bisacodyl 10 mg RECTAL QHS PRN PRN #30 08/15/17 supp.rect Diazepam [Valium] 5 mg PO 4X/DAY PRN PRN #30 tab 08/15/17 HYDROmorphone tablet [Dilaudid] 2 - 4 mg PO 4X/DAY PRN PRN #50 tab 08/15/17 Nutritional Supplement [Rodger - 1 packet PO BIDCM #60 packet 08/15/17 ORANGE FLAVOR] Polyethylene Glycol 3350 [Miralax] 17 gm PO DAILY #30 packet 08/15/17 Potassium Chloride [K-Dur] 20 meq PO DAILYCM #30 tab 08/15/17 fentaNYL patch [Duragesic patch] 50 mcg TRANSDERM. Q3D@1000 #5 patch 08/15/17 Diazepam [Valium] 5 mg PO BID PRN 10 Days #29 tab 08/17/17 Gabapentin [Neurontin] 300 mg PO BIDCM 30 Days #60 08/17/17 HYDROmorphone tablet [Dilaudid] 2 mg PO 4X/DAY PRN PRN 7 Days #30 08/17/17 tab Linezolid [Zyvox] 600 mg PO BID 14 Days #28 tab 08/17/17 0.9 % Sodium Chloride [Saline 210 ml MC .QDAILY 30 Days #10 08/18/17 Wound Wash] bottle Gauze Bandage [Gauze Pads] 6 ea TP .QDAILY 30 Days #180 08/18/17 bandage Gauze Bandage [Rolled Gauze] 2 ea TP .QDAILY 30 Days #60 bandage 08/18/17 Gloves [Nitrile Exam Gloves] 1 pair MC .QDAILY 30 Days #2 box 08/18/17 Silver/Hydrocolloid Dressing 2 ea TP .QDAILY 30 Days #60 bandage 08/18/17 [Aquacel-Ag W-Hydrofiber Dress] Levofloxacin [Levaquin] 500 mg PO .QDAILY 14 Days #14 tab 10/17/17 Oxycodone HCl/Acetaminophen 1 tab PO 4X/DAY PRN PRN 7 Days #30 10/19/17 [Percocet 5/325] tab fentaNYL patch [Duragesic patch] 25 mcg TRANSDERM. Q72H 15 Days #5 10/19/17 patch Maternal Family History: No pertinent history Paternal Family History: No pertinent history Smoking Status: Never smoker Tobacco Use: Non-smoker Physical Exam Vital Signs Temp Pulse Resp BP 97.1 F L 46 L 16 137/75 H 11/07/17 13:21 11/07/17 13:21 11/07/17 13:21 11/07/17 13:21 General: Alert, Oriented x3, Cooperative, No apparent distress, Well developed, Well nourished HEENT: Atraumatic, PERRLA, EOMI, Normocephalic, TM's Clear Lungs: Normal air movement Psych/Mental Status: Normal Affect, Appropriate, Alert and oriented to time, place, person, mood and affect Assessment/Plan Patient appears to be tolerating hyperbaric oxygen therapy well, which will be continued as per the patient's medical plan.
--- NOTE | 2017-11-07 19:57 | PCM.WC.PN ---
Type of Wound Date of Service: 11/07/17 Chief Complaint: Nonhealing ulcers bilateral legs s/p skin grafting with some compromise and new onset ulcers left posterior ankle and right posterior ankle. History of Wound: Surgery 08/02/17 - 1. Excisional debridement nonhealing ulcer left posterior leg with STSG reconstruction from lower anterior abdominal wall (9 cm2). 2. Excisional debridement nonhealing ulcer left lateral leg with STSG reconstruction from lower anterior abdominal wall (30.5 cm2). 3. Excisional debridement nonhealing ulcer left anterior lower leg with STSG reconstruction from lower anterior abdominal wall (27 cm2). 4. Excisional debridement nonhealing ulcer right lateral leg with STSG reconstruction from lower anterior abdominal wall (14.25 cm2). 5. Excisional debridement nonhealing ulcer right anterior superior leg with STSG reconstruction from lower anterior abdominal wall (7 cm2). 6. Excisional debridement nonhealing ulcer right lower leg/medial ankle with STSG reconstruction from lower anterior abdominal wall (24.5 cm2). Wound care - Silver with Adaptic and NICKY wrap for compression. Operative culture - Enterococcus faecium. She was treated with Vancomycin and was discharged on Zyvox and has finished them (Insurance would not approve any more). There was another wound culture on 10/13/17 which showed Enterobacter. She was placed on Levaquin. Prealbumin from 07/30/17 was 22.5. She takes nutritional supplementation with protein to help the healing process. Today she denies fever. Her appetite is good. With her skin graft compromise, she would benefit from HBO treatments. We obtained an MRI prior to starting HBO to evaluate the status of the brain cancer. [facility] looked at it and stated the cancer was stable and not actively growing. So we started the HBO treatments. She is tolerating them thus far. Due to some pressure, possibly from the dressing, she has noted a new onset left posterior ankle ulceration and right posterior ankle ulceration. Progress of Wound: Bilateral legs skin graft surgery 08/02/17 with some compromise and new onset ulcers left posterior ankle and right posterior ankle. - Physical Exam Vital Signs Temp Pulse Resp BP 97.1 F L 46 L 16 137/75 H 11/07/17 13:21 11/07/17 13:21 11/07/17 13:21 11/07/17 13:21 Wound Measurements and Assessment WC - Nurse 1 - General Ulcer Measurement Start: 10/17/17 13:03 Freq: Status: Active Protocol: Activity Type Activity Date Activity User E-Sign Co-Sign Detail Recorded Client Recorded Date Recorded By Document 11/07/17 11:54 [facility] [id number] 11/07/17 12:16 [facility] 11/07/17 11:54 Wound Center Nurse 1 [Ulcer Assessment] #13 R Achilles -Combined with other wound No -Current Size (cm) - Length 0.5 -Current Size (cm) - Width 0.4 -Current Size (cm) - Depth 0.1 -Total Square Cm 0.20 -Photo Taken No -Epithelialization Medium 34-66% -Tunneling No -Undermining/Tunneling No -Circular Undermining No -Exudate Amt Small (1-33%) -Exudate Type Serosanguineous -Wound Margin Distinct, Outline Attached -Granulation Amt Large (67-100%) -Granulation Quality [place] -Slough/Fibrin No -Necrosis Amt None Present (0 %) -Structure Exposed None/Limited to Skin Breakdown -Texture (Riddhi-wound Skin Appearance) Scarring -Moisture (Riddhi-wound Skin Appearance Dry/Scaly ) -Color (Riddhi-wound Skin Appearance) Assessed -Temperature (Riddhi-wound Skin No Abnormality Appearance) (Pt Warm) -Tenderness on Palpation (Riddhi-wound No Skin Appearance) -Ulcer Cleansing Rinsed/ Irrigated with Saline -Foul Odor after Cleansing No -Anesthetic Used 4% Lidocaine Solution #12 L Achilles -Combined with other wound No -Current Size (cm) - Length 2.4 -Current Size (cm) - Width 2.3 -Current Size (cm) - Depth 0.3 -Total Square Cm 5.52 -Photo Taken No -Epithelialization None Present -Tunneling No -Undermining/Tunneling Yes -Undermining/Tunneling Starts (O' 12 clock) -Undermining/Tunneling Ends (O'clock) 4 -Maximum Distance (cm) 0.4 -Exudate Amt Small (1-33%) -Exudate Type Serosanguineous -Wound Margin Distinct, Outline Attached -Granulation Amt Large (67-100%) -Granulation Quality Red -Slough/Fibrin No -Necrosis Amt None Present (0 %) -Structure Exposed Tendon -Texture (Riddhi-wound Skin Appearance) Scarring -Moisture (Riddhi-wound Skin Appearance Dry/Scaly ) -Color (Riddhi-wound Skin Appearance) Assessed -Temperature (Riddih-wound Skin No Abnormality Appearance) (Pt Warm) -Tenderness on Palpation (Riddhi-wound No Skin Appearance) -Ulcer Cleansing Rinsed/ Irrigated with Saline -Foul Odor after Cleansing No -Anesthetic Used 4% Lidocaine Solution #19 R Sup [place] -Combined with other wound No -Current Size (cm) - Length 1 -Current Size (cm) - Width 0.7 -Current Size (cm) - Depth 0.3 -Total Square Cm 0.7 -Photo Taken No -Epithelialization None Present -Tunneling No -Undermining/Tunneling Yes -Undermining/Tunneling Starts (O' 12 clock) -Undermining/Tunneling Ends (O'clock) 12 -Maximum Distance (cm) 0.6 -Circular Undermining Yes -Exudate Amt Small (1-33%) -Exudate Type Serosanguineous -Wound Margin Distinct, Outline Attached -Granulation Amt Large (67-100%) -Granulation Quality [place] -Slough/Fibrin Yes -Necrosis Amt Small (1-33%) -Necrotic Tissue Type Adherent Slough -Texture (Riddhi-wound Skin Appearance) No Abnormality Scarring -Moisture (Riddhi-wound Skin Appearance Dry/Scaly ) -Color (Riddhi-wound Skin Appearance) Assessed -Temperature (Riddhi-wound Skin No Abnormality Appearance) (Pt Warm) -Tenderness on Palpation (Riddhi-wound No Skin Appearance) -Ulcer Cleansing Rinsed/ Irrigated with Saline -Foul Odor after Cleansing No -Anesthetic Used 4% Lidocaine Solution #18 R Lat Leg -Combined with other wound No -Current Size (cm) - Length 0.1 -Current Size (cm) - Width 0.1 -Current Size (cm) - Depth 0.1 -Total Square Cm 0.01 -Photo Taken No -Epithelialization None Present -Tunneling No -Undermining/Tunneling No -Circular Undermining No -Exudate Amt None Present (0 %) -Granulation Amt None Present (0 %) -Slough/Fibrin Yes -Necrosis Amt Large (67-100%) -Necrotic Tissue Type Adherent Slough -Structure Exposed N/A -Texture (Riddhi-wound Skin Appearance) Scarring -Moisture (Riddhi-wound Skin Appearance Dry/Scaly ) -Color (Riddhi-wound Skin Appearance) Assessed -Temperature (Riddhi-wound Skin No Abnormality Appearance) (Pt Warm) -Tenderness on Palpation (Riddhi-wound No Skin Appearance) -Ulcer Cleansing Rinsed/ Irrigated with Saline -Foul Odor after Cleansing No -Anesthetic Used 4% Lidocaine Solution #17 L Lower [place] -Combined with other wound No -Current Size (cm) - Length 5.2 -Current Size (cm) - Width 3.6 -Current Size (cm) - Depth 1.2 -Total Square Cm 18.72 -Photo Taken No -Epithelialization None Present -Tunneling No -Undermining/Tunneling Yes -Undermining/Tunneling Starts (O' 6 clock) -Undermining/Tunneling Ends (O'clock) 11 -Maximum Distance (cm) 0.5 -Exudate Amt Medium (34-66%) -Exudate Type Serosanguineous -Wound Margin Distinct, Outline Attached -Granulation Amt Large (67-100%) -Granulation Quality Red -Slough/Fibrin No -Necrosis Amt None Present (0 %) -Texture (Riddhi-wound Skin Appearance) Scarring -Moisture (Riddhi-wound Skin Appearance Dry/Scaly ) -Color (Riddhi-wound Skin Appearance) Assessed -Temperature (Riddhi-wound Skin No Abnormality Appearance) (Pt Warm) -Tenderness on Palpation (Riddhi-wound No Skin Appearance) -Ulcer Cleansing Rinsed/ Irrigated with Saline -Foul Odor after Cleansing No -Anesthetic Used 4% Lidocaine Solution #14 L Post Leg -Combined with other wound No -Current Size (cm) - Length 0.4 -Current Size (cm) - Width 0.2 -Current Size (cm) - Depth 0.1 -Total Square Cm 0.08 -Photo Taken No -Epithelialization None Present -Tunneling No -Undermining/Tunneling No -Circular Undermining No -Exudate Amt Small (1-33%) -Exudate Type Serosanguineous -Wound Margin Distinct, Outline Attached -Granulation Amt Large (67-100%) -Granulation Quality [place] -Slough/Fibrin Yes -Necrosis Amt Small (1-33%) -Necrotic Tissue Type Adherent Slough -Texture (Riddhi-wound Skin Appearance) Scarring -Moisture (Riddhi-wound Skin Appearance Dry/Scaly ) -Color (Riddhi-wound Skin Appearance) Assessed -Temperature (Riddhi-wound Skin No Abnormality Appearance) (Pt Warm) -Tenderness on Palpation (Riddhi-wound No Skin Appearance) -Ulcer Cleansing Rinsed/ Irrigated with Saline -Foul Odor after Cleansing No -Anesthetic Used 4% Lidocaine Solution [Edema Assessment] -Lower Limb Edema Present Yes -Right Calf (cm) 36 -Right Ankle (cm) 21 -Left Calf (cm) 35.5 -Left Ankle (cm) 22.6 WC - Nurse 2 - General Ulcer CM Notes Start: 10/17/17 13:03 Freq: Status: Active Protocol: Activity Type Activity Date Activity User E-Sign Co-Sign Detail Recorded Client Recorded Date Recorded By Document 11/07/17 12:41 RANDY [id number] 11/07/17 12:46 RANDY 11/07/17 12:41 Wound Center Nurse 2 [Procedure/Treatment] #13 R Achilles -Time 12:42 -Correct Patient Yes -Correct Side, Site, Position Yes -Correct Procedure Yes -Procedure Performed Yes -Type of Procedure Debridement -Clinical Debridement Subcutaneous -Post Debridement Size (cm) - Length 0.5 -Post Debridement Size (cm) - Width 0.5 -Post Debridement Size (cm) - Depth 0.1 -Total Square Cm 0.25 -Wound/Ulcer Outcome Not Healed -Ulcer Cleansing Rinsed/ Irrigated with Saline -Foul Odor after Cleansing No -Bioengineered Tissue No -Bleeding Controlled with Pressure -Treatment Response Procedure Tolerated Well #12 L Achilles -Time 12:44 -Correct Patient Yes -Correct Side, Site, Position Yes -Correct Procedure Yes -Procedure Performed Yes -Type of Procedure Debridement -Clinical Debridement Subcutaneous -Post Debridement Size (cm) - Length 2.5 -Post Debridement Size (cm) - Width 2.3 -Post Debridement Size (cm) - Depth 0.3 -Total Square Cm 5.75 -Wound/Ulcer Outcome Not Healed -Ulcer Cleansing Rinsed/ Irrigated with Saline -Foul Odor after Cleansing No -Bioengineered Tissue No -Bleeding Controlled with Pressure -Treatment Response Procedure Tolerated Well #19 R Sup [place] -Time 12:42 -Correct Patient Yes -Correct Side, Site, Position Yes -Correct Procedure Yes -Procedure Performed Yes -Type of Procedure Debridement -Clinical Debridement Subcutaneous -Post Debridement Size (cm) - Length 1.1 -Post Debridement Size (cm) - Width 0.8 -Post Debridement Size (cm) - Depth 0.3 -Total Square Cm 0.88 -Wound/Ulcer Outcome Not Healed -Ulcer Cleansing Rinsed/ Irrigated with Saline -Foul Odor after Cleansing No -Bioengineered Tissue No -Bleeding Controlled with Pressure -Treatment Response Procedure Tolerated Well #18 R Lat Leg -Time 12:42 -Correct Patient Yes -Correct Side, Site, Position Yes -Correct Procedure Yes -Procedure Performed Yes -Type of Procedure Debridement -Clinical Debridement Subcutaneous -Post Debridement Size (cm) - Length 0.6 -Post Debridement Size (cm) - Width 0.1 -Post Debridement Size (cm) - Depth 0.1 -Total Square Cm 0.06 -Wound/Ulcer Outcome Not Healed -Ulcer Cleansing Rinsed/ Irrigated with Saline -Foul Odor after Cleansing No -Bioengineered Tissue No -Bleeding Controlled with Pressure -Treatment Response Procedure Tolerated Well #17 L Lower [place] -Time 12:45 -Correct Patient Yes -Correct Side, Site, Position Yes -Correct Procedure Yes -Procedure Performed Yes -Type of Procedure Debridement -Clinical Debridement Muscle -Post Debridement Size (cm) - Length 5.3 -Post Debridement Size (cm) - Width 3.6 -Post Debridement Size (cm) - Depth 1.2 -Total Square Cm 19.08 -Wound/Ulcer Outcome Not Healed -Ulcer Cleansing Rinsed/ Irrigated with Saline -Foul Odor after Cleansing No -Bioengineered Tissue No -Bleeding Controlled with Pressure -Treatment Response Procedure Tolerated Well #14 L Post Leg -Time 12:44 -Correct Patient Yes -Correct Side, Site, Position Yes -Correct Procedure Yes -Procedure Performed Yes -Type of Procedure Debridement -Clinical Debridement Subcutaneous -Post Debridement Size (cm) - Length 0.5 -Post Debridement Size (cm) - Width 0.2 -Post Debridement Size (cm) - Depth 0.1 -Total Square Cm 0.10 -Wound/Ulcer Outcome Not Healed -Ulcer Cleansing Rinsed/ Irrigated with Saline -Foul Odor after Cleansing No -Bioengineered Tissue No -Bleeding Controlled with Pressure -Treatment Response Procedure Tolerated Well [See Physician Procedure note for Specifics] Pain Scale: 0-10 Numeric [Pain] -Is Patient Pain Free? Yes Debridement Note Post-Debridement Measurements/Treatment WC - Nurse 2 - General Ulcer CM Notes Start: 10/17/17 13:03 Freq: Status: Active Protocol: Activity Type Activity Date Activity User E-Sign Co-Sign Detail Recorded Client Recorded Date Recorded By Document 10/24/17 12:08 [id number] 10/24/17 12:16 JF Document 11/07/17 12:41 [id number] 11/07/17 12:46 10/24/17 11/07/17 12:08 12:41 Wound Center Nurse 2 #13 R Achilles -Time 12:10 12:42 -Correct Patient Yes Yes -Correct Side, Site, Position Yes Yes -Correct Procedure Yes Yes -Procedure Performed Yes Yes -Type of Procedure Debridement Debridement -Clinical Debridement Subcutaneous Subcutaneous -Post Debridement Size (cm) - Length 1 0.5 -Post Debridement Size (cm) - Width 0.8 0.5 -Post Debridement Size (cm) - Depth 0.2 0.1 -Total Square Cm 0.8 0.25 -Wound/Ulcer Outcome Not Healed Not Healed -Ulcer Cleansing Rinsed/ Rinsed/ Irrigated with Irrigated with Saline Saline -Foul Odor after Cleansing No No -Bioengineered Tissue No No -Bleeding Controlled with Pressure Pressure -Treatment Response Procedure Procedure Tolerated Well Tolerated Well #12 L Achilles -Time 12:15 12:44 -Correct Patient Yes Yes -Correct Side, Site, Position Yes Yes -Correct Procedure Yes Yes -Procedure Performed Yes Yes -Type of Procedure Debridement Debridement -Clinical Debridement Subcutaneous Subcutaneous -Post Debridement Size (cm) - Length 2.8 2.5 -Post Debridement Size (cm) - Width 2.2 2.3 -Post Debridement Size (cm) - Depth 0.3 0.3 -Total Square Cm 6.16 5.75 -Wound/Ulcer Outcome Not Healed Not Healed -Ulcer Cleansing Rinsed/ Rinsed/ Irrigated with Irrigated with Saline Saline -Foul Odor after Cleansing No No -Bioengineered Tissue No No -Bleeding Controlled with Pressure Pressure -Treatment Response Procedure Procedure Tolerated Well Tolerated Well #19 R Sup [place] -Time 12:10 12:42 -Correct Patient Yes Yes -Correct Side, Site, Position Yes Yes -Correct Procedure Yes Yes -Procedure Performed Yes Yes -Type of Procedure Debridement Debridement -Clinical Debridement Subcutaneous Subcutaneous -Post Debridement Size (cm) - Length 1.4 1.1 -Post Debridement Size (cm) - Width 1 0.8 -Post Debridement Size (cm) - Depth 0.4 0.3 -Total Square Cm 1.4 0.88 -Wound/Ulcer Outcome Not Healed Not Healed -Ulcer Cleansing Rinsed/ Rinsed/ Irrigated with Irrigated with Saline Saline -Foul Odor after Cleansing No No -Bioengineered Tissue No No -Bleeding Controlled with Pressure Pressure -Treatment Response Procedure Procedure Tolerated Well Tolerated Well #18 R Lat Leg -Time 12:10 12:42 -Correct Patient Yes Yes -Correct Side, Site, Position Yes Yes -Correct Procedure Yes Yes -Procedure Performed Yes Yes -Type of Procedure Debridement Debridement -Clinical Debridement Subcutaneous Subcutaneous -Post Debridement Size (cm) - Length 2.5 0.6 -Post Debridement Size (cm) - Width 1.3 0.1 -Post Debridement Size (cm) - Depth 0.1 0.1 -Total Square Cm 3.25 0.06 -Wound/Ulcer Outcome Not Healed Not Healed -Ulcer Cleansing Rinsed/ Rinsed/ Irrigated with Irrigated with Saline Saline -Foul Odor after Cleansing No No -Bioengineered Tissue No No -Bleeding Controlled with Pressure Pressure -Treatment Response Procedure Procedure Tolerated Well Tolerated Well #17 L [place] -Time 12:12 12:45 -Correct Patient Yes Yes -Correct Side, Site, Position Yes Yes -Correct Procedure Yes Yes -Procedure Performed Yes Yes -Type of Procedure Debridement Debridement -Clinical Debridement Muscle Muscle -Post Debridement Size (cm) - Length 5.5 5.3 -Post Debridement Size (cm) - Width 4.2 3.6 -Post Debridement Size (cm) - Depth 0.4 1.2 -Total Square Cm 23.10 19.08 -Wound/Ulcer Outcome Not Healed Not Healed -Ulcer Cleansing Rinsed/ Rinsed/ Irrigated with Irrigated with Saline Saline -Foul Odor after Cleansing No No -Bioengineered Tissue No No -Bleeding Controlled with Pressure Pressure -Treatment Response Procedure Procedure Tolerated Well Tolerated Well #14 L Post Leg -Time 12:15 12:44 -Correct Patient Yes Yes -Correct Side, Site, Position Yes Yes -Correct Procedure Yes Yes -Procedure Performed Yes Yes -Type of Procedure Debridement Debridement -Clinical Debridement Subcutaneous Subcutaneous -Post Debridement Size (cm) - Length 1 0.5 -Post Debridement Size (cm) - Width 0.9 0.2 -Post Debridement Size (cm) - Depth 0.2 0.1 -Total Square Cm 0.9 0.10 -Wound/Ulcer Outcome Not Healed Not Healed -Ulcer Cleansing Rinsed/ Rinsed/ Irrigated with Irrigated with Saline Saline -Foul Odor after Cleansing No No -Bioengineered Tissue No No -Bleeding Controlled with Pressure Pressure -Treatment Response Procedure Procedure Tolerated Well Tolerated Well Pain Scale: 0-10 Numeric Is Patient Pain Free? Yes Yes Wound debrided: #12 Left posterior ankle. Laterality: Left Wound Grade/Stage: 2. Type of Debridement: Excisional debridement Anesthesia Used: 4% Lidocaine Solution Depth: Down to and including healthy tissue, in the subcutaneous layer Percentage of wound debrided: 100 Instrument Used: 5mm curette Tissue Removed: subcutaneous tissue. Severity: Fat Layer Exposed Amount of bleeding with debridement: Mild Bleeding Controlled with: Pressure Patient tolerated procedure well - Additional Wound Wound debrided: #13 Right posterior ankle. Laterality: Right Wound Grade/Stage: 2. Type of Debridement: Excisional debridement Anesthesia Used: 4% Lidocaine Solution Depth: Down to and including healthy tissue, in the subcutaneous layer Percentage of wound debrided: 100 Instrument Used: 5mm curette Tissue Removed: subcutaneous tissue. Severity: Fat Layer Exposed Amount of bleeding with debridement: Mild Bleeding Controlled with: Pressure Patient tolerated procedure: Patient tolerated procedure well - Additional Wound Wound debrided: #14 Left posterior left skin graft. Laterality: Left Wound Grade/Stage: 2. Type of Debridement: Excisional debridement Anesthesia Used: 4% Lidocaine Solution Depth: Down to and including healthy tissue, in the subcutaneous layer Percentage of wound debrided: 100 Instrument Used: 5mm curette Tissue Removed: subcutaneous tissue. Severity: Fat Layer Exposed Amount of bleeding with debridement: Mild Bleeding Controlled with: Pressure Patient tolerated procedure: Patient tolerated procedure well - Additional Wound Wound debrided: #17 Left anterior lower leg skin graft. Laterality: Left Wound Grade/Stage: 2. Type of Debridement: Excisional debridement Anesthesia Used: 4% Lidocaine Solution Depth: Down to and including healthy tissue, in the subcutaneous layer, to muscle Percentage of wound debrided: 100 Instrument Used: 5mm curette Tissue Removed: subcutaneous tissue and muscle. Severity: Fat Layer Exposed - muscle is exposed. Amount of bleeding with debridement: Mild Bleeding Controlled with: Pressure Patient tolerated procedure: Patient tolerated procedure well - Additional Wound Wound debrided: #18 Right lateral leg skin graft. Laterality: Right Wound Grade/Stage: 2. Type of Debridement: Excisional debridement Anesthesia Used: 4% Lidocaine Solution Depth: Down to and including healthy tissue, in the subcutaneous layer Percentage of wound debrided: 100 Instrument Used: 5mm curette Tissue Removed: subcutaneous tissue. Severity: Fat Layer Exposed Amount of bleeding with debridement: Mild Bleeding Controlled with: Pressure Patient tolerated procedure: Patient tolerated procedure well - Additional Wound Wound debrided: #19 Right anterior superior leg skin graft. Laterality: Right Wound Grade/Stage: 2. Type of Debridement: Excisional debridement Anesthesia Used: 4% Lidocaine Solution Depth: Down to and including healthy tissue, in the subcutaneous layer Percentage of wound debrided: 100 Instrument Used: 5mm curette Tissue Removed: subcutaneous tissue. Severity: Fat Layer Exposed Amount of bleeding with debridement: Mild Bleeding Controlled with: Pressure Patient tolerated procedure: Patient tolerated procedure well Assessment/Plan Active Problems (Last Updated 12/16/17 @ 17:12 by Sari Hawk DO) GERD (gastroesophageal reflux disease) (Chronic) Nausea (Chronic) Seizure disorder (Chronic) Hypertension (Chronic) Anxiety (Chronic) Chronic pain (Chronic) Neuropathic pain (Chronic) Assessment: 1. Nonhealing ulcer left posterior leg. 2. Nonhealing ulcer left anterior lower leg. 3. Nonhealing ulcer right lateral leg. 4. Nonhealing ulcer right anterior superior leg. 5. Brain tumor - receiving chemotherapy, on hold. 6. s/p excisional debridement nonhealing ulcer left posterior leg with STSG reconstruction from lower anterior abdominal wall (9 cm2) and excisional debridement nonhealing ulcer left lateral leg with STSG reconstruction from lower anterior abdominal wall (30.5 cm2) and excisional debridement nonhealing ulcer left anterior lower leg with STSG reconstruction from lower anterior abdominal wall (27 cm2) and excisional debridement nonhealing ulcer right lateral leg with STSG reconstruction from lower anterior abdominal wall (14.25 cm2) and excisional debridement nonhealing ulcer right anterior superior leg with STSG reconstruction from lower anterior abdominal wall (7 cm2) and excisional debridement nonhealing ulcer right lower leg/medial ankle with STSG reconstruction from lower anterior abdominal wall (24.5 cm2). 7. Early compromise to skin grafts bilateral leg ulcers with the biggest compromise to the left anterior lower leg graft. 8. Nonhealing ulcer left posterior ankle. 9. Nonhealing ulcer right posterior ankle. Plan: Continue Silvercel daily to the grafts with Surepress compression. Also apply Silver to the two new onset ulcers in the left posterior ankle and right posterior ankle. The Silver is starting to dry out the ulcers. Will add Adaptic to the ulcers. It will also help the tendons from drying out as well. Her abdominal wall donor incision is healing satisfactory. 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 With her compromised skin grafts, she needs HBO treatments to help salvage the compromise. She has started HBO treatments and is tolerating them. Another wound culture was done on 10/13/17 which showed Enterobacter cloacae. She was started on Levaquin and is tolerating them. Chemotherapy continues to be on hold because of the skin graft compromise. An MRI was done to evaluate the brain cancer before starting HBO, and according to [facility], the MRI was ok as the cancer has stabilized and is not actively growing at this time. She has started HBO treatments and is tolerating them thus far. Followup 2 weeks. Her Prealbumin from 07/30/17 was 22.5. She takes nutritional supplementation with protein to help the healing process. A lot of progress was noted today with healing of the compromised skin grafts. The right lateral leg skin graft is almost healed. The right anterior superior leg skin graft wound is getting smaller and may be able to be closed at surgery with a localized skin flap. Both the right posterior ankle and left posterior leg ulcers are showing more granulation tissue. The left posterior ankle ulcer is healing and getting smaller with less exposure of the tendon. The left anterior lower leg skin graft ulcer is also getting smaller and the wound base is stabilizing and is the main one that will need a complete new skin graft. She would benefit from additional HBO treatments since it appears to be strengthening the skin graft ulcers with improved salvage. The goal is to minimize the need for additional surgery and if surgery is needed, it would be less extensive as a result of the HBO treatments. Tentatively will plan on operative debridement and skin grafting in December.
[2017-11-10 13:09] VITALS: BP 136/83; PULSE 51; RESP 16
[2017-11-14 12:41] VITALS: BP 122/80; BP 123/85; PULSE 55; PULSE 60; RESP 16; TEMP 36; TEMP 36.7
--- NOTE | 2017-11-14 16:38 | PCM.HBO.PN ---
History of Present Illness Date of Service: 11/14/17 Presenting Chief Complaint: Nonhealing ulcers bilateral legs s/p skin grafting with some compromise and new onset ulcers left posterior ankle and right posterior ankle. GEORGINA SKINNER is a 57 year old currently undergoing hyperbaric oxygen therapy for compromised skin grafts bilateral lower extremities. Progress: Hyperbaric oxygen therapy was administered today, and was well tolerated by the patient. Today's hyperbaric oxygen session represents the 20th such session of hyperbaric oxygen therapy. Tolerance of hyperbaric oxygen therapy: Hyperbaric oxygen therapy was administered as per the facility's protocol. The patient tolerated hyperbaric oxygen therapy well, without complaints or complications. The hyperbaric oxygen treatment was completed in its entirety. Upon emergence from the hyperbaric chamber, patient's vital signs were noted to be stable. She was discharged in good condition. Past Medical History Chronic Problems (Last Updated 10/07/17 @ 16:44 by Sari Hawk DO) Glioblastoma multiforme (Chronic) Allergies/Adverse Reactions: Allergies adhesive tape Adverse Reaction (Verified 06/24/17 09:09) VERY THIN STEROID SKIN WILL REMOVE SKIN IF ON TOO LONG Home Medications: Ambulatory Orders Medication Instructions Recorded Cholecalciferol (Vitamin D3) 5,000 unit PO DAILY 03/02/17 [Vitamin D3] Dexamethasone 3 mg PO DAILY 03/02/17 Famotidine [Pepcid] 20 mg PO BID 03/02/17 Multivitamin [Daily Multiple 1 each PO DAILY 03/02/17 Vitamin] Ondansetron [Zofran] 8 mg PO Q8H PRN PRN 03/02/17 Levetiracetam 750 mg PO BID 05/03/17 Lisinopril 1 tablet PO DAILY 05/03/17 Acetaminophen [Tylenol Tablet] 650 mg PO Q6H PRN PRN tablet 06/28/17 Calcium (Elemental) [Os-Guido 500] 500 mg PO DAILY 07/08/17 Lactobacillus Acidophilus 1 each PO DAILY 07/08/17 [Acidophilus Lactobacilli] Magnesium Hydroxide [Milk Of 30 ml PO DAILY PRN PRN 07/08/17 Magnesia] proMETHazine tablet [Phenergan 25 mg PO Q4H PRN PRN 07/08/17 tablet] Bisacodyl 10 mg RECTAL QHS PRN PRN #30 08/15/17 supp.rect Diazepam [Valium] 5 mg PO 4X/DAY PRN PRN #30 tab 08/15/17 HYDROmorphone tablet [Dilaudid] 2 - 4 mg PO 4X/DAY PRN PRN #50 tab 08/15/17 Nutritional Supplement [Rodger - 1 packet PO BIDCM #60 packet 08/15/17 ORANGE FLAVOR] Polyethylene Glycol 3350 [Miralax] 17 gm PO DAILY #30 packet 08/15/17 Potassium Chloride [K-Dur] 20 meq PO DAILYCM #30 tab 08/15/17 fentaNYL patch [Duragesic patch] 50 mcg TRANSDERM. Q3D@1000 #5 patch 08/15/17 Diazepam [Valium] 5 mg PO BID PRN 10 Days #29 tab 08/17/17 Gabapentin [Neurontin] 300 mg PO BIDCM 30 Days #60 08/17/17 HYDROmorphone tablet [Dilaudid] 2 mg PO 4X/DAY PRN PRN 7 Days #30 08/17/17 tab Linezolid [Zyvox] 600 mg PO BID 14 Days #28 tab 08/17/17 0.9 % Sodium Chloride [Saline 210 ml MC .QDAILY 30 Days #10 08/18/17 Wound Wash] bottle Gauze Bandage [Gauze Pads] 6 ea TP .QDAILY 30 Days #180 08/18/17 bandage Gauze Bandage [Rolled Gauze] 2 ea TP .QDAILY 30 Days #60 bandage 08/18/17 Gloves [Nitrile Exam Gloves] 1 pair MC .QDAILY 30 Days #2 box 08/18/17 Silver/Hydrocolloid Dressing 2 ea TP .QDAILY 30 Days #60 bandage 08/18/17 [Aquacel-Ag W-Hydrofiber Dress] Levofloxacin [Levaquin] 500 mg PO .QDAILY 14 Days #14 tab 10/17/17 Oxycodone HCl/Acetaminophen 1 tab PO 4X/DAY PRN PRN 7 Days #30 10/19/17 [Percocet 5/325] tab fentaNYL patch [Duragesic patch] 25 mcg TRANSDERM. Q72H 15 Days #5 10/19/17 patch oxycodone-acetaminophen 5 mg-325 1 tab PO 4X/DAY PRN #30 tab 11/11/17 mg tablet Maternal Family History: No pertinent history Paternal Family History: No pertinent history Smoking Status: Never smoker Tobacco Use: Non-smoker Physical Exam Vital Signs Temp Pulse Resp BP 98.1 F 60 16 122/80 H 11/14/17 12:41 11/14/17 12:41 11/14/17 12:41 11/14/17 12:41 General: Alert, Oriented x3, Cooperative, No apparent distress, Well developed, Well nourished HEENT: Atraumatic, PERRLA, EOMI, Normocephalic Lungs: Normal air movement Psych/Mental Status: Normal Affect, Appropriate, Alert and oriented to time, place, person, mood and affect Assessment/Plan The patient appears to be tolerating hyperbaric oxygen therapy well, which will be continued as per the patient's medical plan.
--- NOTE | 2017-11-16 08:26 | PCM.HBO.PN ---
History of Present Illness Date of Service: 11/10/17 Presenting Chief Complaint: Nonhealing ulcers bilateral legs s/p skin grafting with some compromise and new onset ulcers left posterior ankle and right posterior ankle. GEORGINA SKINNER is a 57 year old currently undergoing hyperbaric oxygen therapy for compromised skin grafts bilateral lower extremities. Progress: Hyperbaric oxygen therapy was administered today, and was well tolerated by the patient. Tolerance of hyperbaric oxygen therapy: Hyperbaric oxygen therapy was administered as per the facility's protocol. The patient tolerated hyperbaric oxygen therapy well, without complaints or complications. The hyperbaric oxygen treatment was completed in its entirety. Upon emergence from the hyperbaric chamber, patient's vital signs were noted to be stable. She was discharged in good condition. Past Medical History Chronic Problems (Last Updated 10/07/17 @ 16:44 by Sari Hawk DO) Glioblastoma multiforme (Chronic) Allergies/Adverse Reactions: Allergies adhesive tape Adverse Reaction (Verified 06/24/17 09:09) VERY THIN STEROID SKIN WILL REMOVE SKIN IF ON TOO LONG Home Medications: Ambulatory Orders Medication Instructions Recorded Cholecalciferol (Vitamin D3) 5,000 unit PO DAILY 03/02/17 [Vitamin D3] Dexamethasone 3 mg PO DAILY 03/02/17 Famotidine [Pepcid] 20 mg PO BID 03/02/17 Multivitamin [Daily Multiple 1 each PO DAILY 03/02/17 Vitamin] Ondansetron [Zofran] 8 mg PO Q8H PRN PRN 03/02/17 Levetiracetam 750 mg PO BID 05/03/17 Lisinopril 1 tablet PO DAILY 05/03/17 Acetaminophen [Tylenol Tablet] 650 mg PO Q6H PRN PRN tablet 06/28/17 Calcium (Elemental) [Os-Guido 500] 500 mg PO DAILY 07/08/17 Lactobacillus Acidophilus 1 each PO DAILY 07/08/17 [Acidophilus Lactobacilli] Magnesium Hydroxide [Milk Of 30 ml PO DAILY PRN PRN 07/08/17 Magnesia] proMETHazine tablet [Phenergan 25 mg PO Q4H PRN PRN 07/08/17 tablet] Bisacodyl 10 mg RECTAL QHS PRN PRN #30 08/15/17 supp.rect Diazepam [Valium] 5 mg PO 4X/DAY PRN PRN #30 tab 08/15/17 HYDROmorphone tablet [Dilaudid] 2 - 4 mg PO 4X/DAY PRN PRN #50 tab 08/15/17 Nutritional Supplement [Rodger - 1 packet PO BIDCM #60 packet 08/15/17 ORANGE FLAVOR] Polyethylene Glycol 3350 [Miralax] 17 gm PO DAILY #30 packet 08/15/17 Potassium Chloride [K-Dur] 20 meq PO DAILYCM #30 tab 08/15/17 fentaNYL patch [Duragesic patch] 50 mcg TRANSDERM. Q3D@1000 #5 patch 08/15/17 Diazepam [Valium] 5 mg PO BID PRN 10 Days #29 tab 08/17/17 Gabapentin [Neurontin] 300 mg PO BIDCM 30 Days #60 08/17/17 HYDROmorphone tablet [Dilaudid] 2 mg PO 4X/DAY PRN PRN 7 Days #30 08/17/17 tab Linezolid [Zyvox] 600 mg PO BID 14 Days #28 tab 08/17/17 0.9 % Sodium Chloride [Saline 210 ml MC .QDAILY 30 Days #10 08/18/17 Wound Wash] bottle Gauze Bandage [Gauze Pads] 6 ea TP .QDAILY 30 Days #180 08/18/17 bandage Gauze Bandage [Rolled Gauze] 2 ea TP .QDAILY 30 Days #60 bandage 08/18/17 Gloves [Nitrile Exam Gloves] 1 pair MC .QDAILY 30 Days #2 box 08/18/17 Silver/Hydrocolloid Dressing 2 ea TP .QDAILY 30 Days #60 bandage 08/18/17 [Aquacel-Ag W-Hydrofiber Dress] Levofloxacin [Levaquin] 500 mg PO .QDAILY 14 Days #14 tab 10/17/17 Oxycodone HCl/Acetaminophen 1 tab PO 4X/DAY PRN PRN 7 Days #30 10/19/17 [Percocet 5/325] tab fentaNYL patch [Duragesic patch] 25 mcg TRANSDERM. Q72H 15 Days #5 10/19/17 patch oxycodone-acetaminophen 5 mg-325 1 tab PO 4X/DAY PRN #30 tab 11/11/17 mg tablet Maternal Family History: No pertinent history Paternal Family History: No pertinent history Smoking Status: Never smoker Tobacco Use: Non-smoker Physical Exam Vital Signs Temp Pulse Resp BP 96.8 F L 55 L 16 123/85 H 11/14/17 12:41 11/14/17 12:41 11/14/17 12:41 11/14/17 12:41 General: Alert, Oriented x3, Cooperative, No apparent distress HEENT: Atraumatic, TM's Clear, EAC Clear Lungs: Clear to auscultation Cardiovascular: Regular rate, Regular Rhythm Psych/Mental Status: Normal Affect, Appropriate, Alert and oriented to time, place, person, mood and affect Assessment/Plan The patient appears to be tolerating hyperbaric oxygen therapy well, which will be continued as per the patient's medical plan. Code Visit CHARGES FOR VISIT DATE SHOULD BE FOR 11/10/17, however, no chart on that date to attach to .
--- NOTE | 2017-11-30 18:28 | PCM.HBO.PN ---
History of Present Illness Date of Service: 11/30/17 Presenting Chief Complaint: Compromised skin grafts bilateral lower extremities. GEORGINA SKINNER is a 57 year old currently undergoing hyperbaric oxygen therapy for compromised skin grafts bilateral lower extremities. Progress: Hyperbaric oxygen therapy was administered today, and was well tolerated by the patient. Today represents the 28th such hyperbaric oxygen treatment. Tolerance of hyperbaric oxygen therapy: Hyperbaric oxygen therapy was administered as per the facility's protocol. The patient tolerated hyperbaric oxygen therapy well, without significant complications. The hyperbaric oxygen treatment was completed in its entirety. Upon emergence from the hyperbaric chamber, patient's vital signs were noted to be stable. She was discharged in good condition. 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 without evidence of necrosis (Chronic) GERD (gastroesophageal reflux disease) (Chronic) Nausea (Chronic) Seizure disorder (Chronic) Hypertension (Chronic) Anxiety (Chronic) Chronic pain (Chronic) Neuropathic pain (Chronic) Glioblastoma multiforme (Chronic) Ulcers of both lower legs (Chronic) multiple infected ulcers bilateral legs L97.919 Debility, unspecified (Chronic) Allergies/Adverse Reactions: Allergies adhesive tape Adverse Reaction (Verified 01/19/18 10:54) VERY THIN STEROID SKIN WILL REMOVE SKIN IF ON TOO LONG Home Medications: Ambulatory Orders Medication Instructions Recorded Cholecalciferol (Vitamin D3) 5,000 unit PO DAILY 03/02/17 [Vitamin D3] Dexamethasone 2.5 mg PO DAILY 03/02/17 Famotidine [Pepcid] 20 mg PO BID 03/02/17 Multivitamin [Daily Multiple 1 each PO DAILY 03/02/17 Vitamin] Ondansetron [Zofran] 8 mg PO Q8H PRN PRN 03/02/17 Levetiracetam 750 mg PO BID 05/03/17 Calcium (Elemental) [Os-Guido 500] 500 mg PO DAILY 07/08/17 Lactobacillus Acidophilus 1 each PO DAILY 07/08/17 [Acidophilus Lactobacilli] proMETHazine tablet [Phenergan 25 mg PO Q4H PRN PRN 07/08/17 tablet] Gabapentin [Neurontin] 300 mg PO BIDCM 30 Days #60 08/17/17 Acetaminophen [Tylenol Extra 1,000 mg PO DAILY 01/24/18 Strength] Sertraline HCl [Zoloft] 25 mg PO DAILY 01/24/18 Diazepam [Valium] 5 mg PO 4X/DAY PRN PRN #30 tab 01/31/18 Docusate Sodium [Colace] 100 mg PO BID 01/31/18 Nutritional Supplement [Rodger - 1 packet PO BIDCM 01/31/18 ORANGE FLAVOR] Ondansetron [Zofran] 4 mg IV Q6H PRN PRN vial 01/31/18 Oxycodone [Oxyir] 10 mg PO Q4H PRN PRN 7 Days #60 tab 01/31/18 Polyethylene Glycol 3350 [Miralax] 17 gm PO DAILY 01/31/18 Potassium Chloride [K-Dur] 20 meq PO DAILYCM 01/31/18 Vancomycin IV 750 mg IV Q12H 01/31/18 levoFLOXacin IV [Levaquin 500mg 500 mg IV Q24 01/31/18 IVPB] Maternal Family History: No pertinent history Paternal Family History: No pertinent history Smoking Status: Never smoker Tobacco Use: Non-smoker Physical Exam Vital Signs Temp Pulse Resp BP 96.8 F L 55 L 16 123/85 H 11/14/17 12:41 11/14/17 12:41 11/14/17 12:41 11/14/17 12:41 Assessment/Plan Active Problems (Last Updated 12/16/17 @ 17:12 by Sari Hawk DO) GERD (gastroesophageal reflux disease) (Chronic) Nausea (Chronic) Seizure disorder (Chronic) Hypertension (Chronic) Anxiety (Chronic) Chronic pain (Chronic) Neuropathic pain (Chronic)
== END 2017-11-14 23:59 ==
LOC: WC 13:00
PROVIDERS: Family Provider Student in an Organized Health Care Education/Training Program; PCP Student in an Organized Health Care Education/Training Program; Visit Provider Surgery
DX: T86.828 Other complications of skin graft (allograft) (autograft) (principal); L97.322 Non-pressure chronic ulcer of left ankle with fat layer exposed; L97.312 Non-pressure chronic ulcer of right ankle with fat layer exposed; L97.822 Non-pressure chronic ulcer of other part of left lower leg with fat layer exposed; L97.812 Non-pressure chronic ulcer of other part of right lower leg with fat layer exposed; Z79.899 Other long term (current) drug therapy; C71.9 Malignant neoplasm of brain, unspecified
CPT/HCPCS: 11042; 11043; 11046; 99183; G0277

== ENCOUNTER 2017-12-15 13:00 | Outpatient (RCR) | payer BC, SELFPAY ==
[2017-11-15 00:43] VITALS: BP 108/70; PULSE 60; RESP 16; TEMP 36.7
[2017-11-15 13:06] VITALS: BP 117/78; BP 124/77; PULSE 51; PULSE 59; RESP 16; TEMP 36.2; TEMP 36.6
--- NOTE | 2017-11-15 22:24 | PCM.HBO.PN ---
History of Present Illness Date of Service: 11/15/17 Presenting Chief Complaint: Compromised skin grafts bilateral lower extremities. GEORGINA SKINNER is a 57 year old currently undergoing hyperbaric oxygen therapy for compromised skin grafts bilateral lower extremities. Progress: Hyperbaric oxygen therapy was administered today, and was well tolerated by the patient. Today represents the 21st such hyperbaric oxygen treatment. Tolerance of hyperbaric oxygen therapy: Hyperbaric oxygen therapy was administered as per the facility's protocol. The patient tolerated hyperbaric oxygen therapy well, without significant complications. The hyperbaric oxygen treatment was completed in its entirety. Upon emergence from the hyperbaric chamber, patient's vital signs were noted to be stable. She was discharged in good condition. 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 without evidence of necrosis (Chronic) GERD (gastroesophageal reflux disease) (Chronic) Nausea (Chronic) Seizure disorder (Chronic) Hypertension (Chronic) Anxiety (Chronic) Chronic pain (Chronic) Neuropathic pain (Chronic) Glioblastoma multiforme (Chronic) Ulcers of both lower legs (Chronic) multiple infected ulcers bilateral legs L97.919 Debility, unspecified (Chronic) Allergies/Adverse Reactions: Allergies adhesive tape Adverse Reaction (Verified 01/19/18 10:54) VERY THIN STEROID SKIN WILL REMOVE SKIN IF ON TOO LONG Home Medications: Ambulatory Orders Medication Instructions Recorded Cholecalciferol (Vitamin D3) 5,000 unit PO DAILY 03/02/17 [Vitamin D3] Dexamethasone 2.5 mg PO DAILY 03/02/17 Famotidine [Pepcid] 20 mg PO BID 03/02/17 Multivitamin [Daily Multiple 1 each PO DAILY 03/02/17 Vitamin] Ondansetron [Zofran] 8 mg PO Q8H PRN PRN 03/02/17 Levetiracetam 750 mg PO BID 05/03/17 Calcium (Elemental) [Os-Guido 500] 500 mg PO DAILY 07/08/17 Lactobacillus Acidophilus 1 each PO DAILY 07/08/17 [Acidophilus Lactobacilli] proMETHazine tablet [Phenergan 25 mg PO Q4H PRN PRN 07/08/17 tablet] Gabapentin [Neurontin] 300 mg PO BIDCM 30 Days #60 08/17/17 Acetaminophen [Tylenol Extra 1,000 mg PO DAILY 01/24/18 Strength] Sertraline HCl [Zoloft] 25 mg PO DAILY 01/24/18 Diazepam [Valium] 5 mg PO 4X/DAY PRN PRN #30 tab 01/31/18 Docusate Sodium [Colace] 100 mg PO BID 01/31/18 Nutritional Supplement [Rodger - 1 packet PO BIDCM 01/31/18 ORANGE FLAVOR] Ondansetron [Zofran] 4 mg IV Q6H PRN PRN vial 01/31/18 Oxycodone [Oxyir] 10 mg PO Q4H PRN PRN 7 Days #60 tab 01/31/18 Polyethylene Glycol 3350 [Miralax] 17 gm PO DAILY 01/31/18 Potassium Chloride [K-Dur] 20 meq PO DAILYCM 01/31/18 Vancomycin IV 750 mg IV Q12H 01/31/18 levoFLOXacin IV [Levaquin 500mg 500 mg IV Q24 01/31/18 IVPB] Maternal Family History: No pertinent history Paternal Family History: No pertinent history Smoking Status: Never smoker Tobacco Use: Non-smoker Physical Exam Vital Signs Temp Pulse Resp BP 98 F 59 L 16 124/77 H 11/15/17 13:06 11/15/17 13:06 11/15/17 13:06 11/15/17 13:06 Assessment/Plan Active Problems (Last Updated 12/16/17 @ 17:12 by Sari Hawk DO) GERD (gastroesophageal reflux disease) (Chronic) Nausea (Chronic) Seizure disorder (Chronic) Hypertension (Chronic) Anxiety (Chronic) Chronic pain (Chronic) Neuropathic pain (Chronic)
[2017-11-16 13:27] VITALS: BP 113/68; BP 125/82; PULSE 58; PULSE 70; RESP 16; TEMP 36.2; TEMP 36.9
[2017-11-17 13:11] VITALS: BP 128/85; BP 130/88; PULSE 59; PULSE 61; RESP 16; TEMP 36.1; TEMP 37.1
--- NOTE | 2017-11-17 13:33 | PCM.HBO.PN ---
History of Present Illness Date of Service: 11/17/17 Presenting Chief Complaint: Nonhealing ulcers bilateral legs s/p skin grafting with some compromise and new onset ulcers left posterior ankle and right posterior ankle. GEORGINA SKINNER is a 57 year old currently undergoing hyperbaric oxygen therapy for compromised skin grafts bilateral lower extremities. Progress: Hyperbaric oxygen therapy was administered today, and was well tolerated by the patient. Tolerance of hyperbaric oxygen therapy: Hyperbaric oxygen therapy was administered as per the facility's protocol. The patient tolerated hyperbaric oxygen therapy well, without complaints or complications. The hyperbaric oxygen treatment was completed in its entirety. Upon emergence from the hyperbaric chamber, patient's vital signs were noted to be stable. She was discharged in good condition. Past Medical History Chronic Problems (Last Updated 10/07/17 @ 16:44 by Sari Hawk DO) Glioblastoma multiforme (Chronic) Allergies/Adverse Reactions: Allergies adhesive tape Adverse Reaction (Verified 06/24/17 09:09) VERY THIN STEROID SKIN WILL REMOVE SKIN IF ON TOO LONG Home Medications: Ambulatory Orders Medication Instructions Recorded Cholecalciferol (Vitamin D3) 5,000 unit PO DAILY 03/02/17 [Vitamin D3] Dexamethasone 3 mg PO DAILY 03/02/17 Famotidine [Pepcid] 20 mg PO BID 03/02/17 Multivitamin [Daily Multiple 1 each PO DAILY 03/02/17 Vitamin] Ondansetron [Zofran] 8 mg PO Q8H PRN PRN 03/02/17 Levetiracetam 750 mg PO BID 05/03/17 Lisinopril 1 tablet PO DAILY 05/03/17 Acetaminophen [Tylenol Tablet] 650 mg PO Q6H PRN PRN tablet 06/28/17 Calcium (Elemental) [Os-Guido 500] 500 mg PO DAILY 07/08/17 Lactobacillus Acidophilus 1 each PO DAILY 07/08/17 [Acidophilus Lactobacilli] Magnesium Hydroxide [Milk Of 30 ml PO DAILY PRN PRN 07/08/17 Magnesia] proMETHazine tablet [Phenergan 25 mg PO Q4H PRN PRN 07/08/17 tablet] Bisacodyl 10 mg RECTAL QHS PRN PRN #30 08/15/17 supp.rect Diazepam [Valium] 5 mg PO 4X/DAY PRN PRN #30 tab 08/15/17 HYDROmorphone tablet [Dilaudid] 2 - 4 mg PO 4X/DAY PRN PRN #50 tab 08/15/17 Nutritional Supplement [Rodger - 1 packet PO BIDCM #60 packet 08/15/17 ORANGE FLAVOR] Polyethylene Glycol 3350 [Miralax] 17 gm PO DAILY #30 packet 08/15/17 Potassium Chloride [K-Dur] 20 meq PO DAILYCM #30 tab 08/15/17 fentaNYL patch [Duragesic patch] 50 mcg TRANSDERM. Q3D@1000 #5 patch 08/15/17 Diazepam [Valium] 5 mg PO BID PRN 10 Days #29 tab 08/17/17 Gabapentin [Neurontin] 300 mg PO BIDCM 30 Days #60 08/17/17 HYDROmorphone tablet [Dilaudid] 2 mg PO 4X/DAY PRN PRN 7 Days #30 08/17/17 tab Linezolid [Zyvox] 600 mg PO BID 14 Days #28 tab 08/17/17 0.9 % Sodium Chloride [Saline 210 ml MC .QDAILY 30 Days #10 08/18/17 Wound Wash] bottle Gauze Bandage [Gauze Pads] 6 ea TP .QDAILY 30 Days #180 08/18/17 bandage Gauze Bandage [Rolled Gauze] 2 ea TP .QDAILY 30 Days #60 bandage 08/18/17 Gloves [Nitrile Exam Gloves] 1 pair MC .QDAILY 30 Days #2 box 08/18/17 Silver/Hydrocolloid Dressing 2 ea TP .QDAILY 30 Days #60 bandage 08/18/17 [Aquacel-Ag W-Hydrofiber Dress] Levofloxacin [Levaquin] 500 mg PO .QDAILY 14 Days #14 tab 10/17/17 fentaNYL patch [Duragesic patch] 25 mcg TRANSDERM. Q72H 15 Days #5 10/19/17 patch Oxycodone HCl/Acetaminophen 1 tab PO 4X/DAY PRN PRN 7 Days #30 11/18/17 [Percocet 5-325] tab Maternal Family History: No pertinent history Paternal Family History: No pertinent history Smoking Status: Never smoker Tobacco Use: Non-smoker Physical Exam Vital Signs Temp Pulse Resp BP 98.7 F 59 L 16 128/85 H 11/17/17 13:11 11/17/17 13:11 11/17/17 13:11 11/17/17 13:11 General: Alert, Oriented x3, Cooperative, No apparent distress HEENT: Atraumatic, TM's Clear Lungs: Clear to auscultation, Normal air movement Cardiovascular: Regular rate, Regular Rhythm, Normal S1, Normal S2 Psych/Mental Status: Normal Affect, Appropriate Assessment/Plan The patient appears to be tolerating hyperbaric oxygen therapy well, which will be continued as per the patient's medical plan.
[2017-11-18 13:26] VITALS: BP 122/89; BP 131/73; PULSE 54; PULSE 60; RESP 16; TEMP 36; TEMP 36.5
--- NOTE | 2017-11-18 14:21 | PCM.HBO.PN ---
History of Present Illness Date of Service: 11/18/17 Presenting Chief Complaint: Nonhealing ulcers bilateral legs s/p skin grafting with some compromise and new onset ulcers left posterior ankle and right posterior ankle. GEORGINA SKINNER is a 57 year old currently undergoing hyperbaric oxygen therapy for compromised skin grafts bilateral lower extremities. Progress: Hyperbaric oxygen therapy was administered today, and was well tolerated by the patient. Tolerance of hyperbaric oxygen therapy: Hyperbaric oxygen therapy was administered as per the facility's protocol. The patient tolerated hyperbaric oxygen therapy well, without complaints or complications. The hyperbaric oxygen treatment was completed in its entirety. Upon emergence from the hyperbaric chamber, patient's vital signs were noted to be stable. She was discharged in good condition. Past Medical History Chronic Problems (Last Updated 10/07/17 @ 16:44 by Sari Hawk DO) Glioblastoma multiforme (Chronic) Allergies/Adverse Reactions: Allergies adhesive tape Adverse Reaction (Verified 06/24/17 09:09) VERY THIN STEROID SKIN WILL REMOVE SKIN IF ON TOO LONG Home Medications: Ambulatory Orders Medication Instructions Recorded Cholecalciferol (Vitamin D3) 5,000 unit PO DAILY 03/02/17 [Vitamin D3] Dexamethasone 3 mg PO DAILY 03/02/17 Famotidine [Pepcid] 20 mg PO BID 03/02/17 Multivitamin [Daily Multiple 1 each PO DAILY 03/02/17 Vitamin] Ondansetron [Zofran] 8 mg PO Q8H PRN PRN 03/02/17 Levetiracetam 750 mg PO BID 05/03/17 Lisinopril 1 tablet PO DAILY 05/03/17 Acetaminophen [Tylenol Tablet] 650 mg PO Q6H PRN PRN tablet 06/28/17 Calcium (Elemental) [Os-Guido 500] 500 mg PO DAILY 07/08/17 Lactobacillus Acidophilus 1 each PO DAILY 07/08/17 [Acidophilus Lactobacilli] Magnesium Hydroxide [Milk Of 30 ml PO DAILY PRN PRN 07/08/17 Magnesia] proMETHazine tablet [Phenergan 25 mg PO Q4H PRN PRN 07/08/17 tablet] Bisacodyl 10 mg RECTAL QHS PRN PRN #30 08/15/17 supp.rect Diazepam [Valium] 5 mg PO 4X/DAY PRN PRN #30 tab 08/15/17 HYDROmorphone tablet [Dilaudid] 2 - 4 mg PO 4X/DAY PRN PRN #50 tab 08/15/17 Nutritional Supplement [Rodger - 1 packet PO BIDCM #60 packet 08/15/17 ORANGE FLAVOR] Polyethylene Glycol 3350 [Miralax] 17 gm PO DAILY #30 packet 08/15/17 Potassium Chloride [K-Dur] 20 meq PO DAILYCM #30 tab 08/15/17 fentaNYL patch [Duragesic patch] 50 mcg TRANSDERM. Q3D@1000 #5 patch 08/15/17 Diazepam [Valium] 5 mg PO BID PRN 10 Days #29 tab 08/17/17 Gabapentin [Neurontin] 300 mg PO BIDCM 30 Days #60 08/17/17 HYDROmorphone tablet [Dilaudid] 2 mg PO 4X/DAY PRN PRN 7 Days #30 08/17/17 tab Linezolid [Zyvox] 600 mg PO BID 14 Days #28 tab 08/17/17 0.9 % Sodium Chloride [Saline 210 ml MC .QDAILY 30 Days #10 08/18/17 Wound Wash] bottle Gauze Bandage [Gauze Pads] 6 ea TP .QDAILY 30 Days #180 08/18/17 bandage Gauze Bandage [Rolled Gauze] 2 ea TP .QDAILY 30 Days #60 bandage 08/18/17 Gloves [Nitrile Exam Gloves] 1 pair MC .QDAILY 30 Days #2 box 08/18/17 Silver/Hydrocolloid Dressing 2 ea TP .QDAILY 30 Days #60 bandage 08/18/17 [Aquacel-Ag W-Hydrofiber Dress] Levofloxacin [Levaquin] 500 mg PO .QDAILY 14 Days #14 tab 10/17/17 Oxycodone HCl/Acetaminophen 1 tab PO 4X/DAY PRN PRN 7 Days #30 10/19/17 [Percocet 5/325] tab fentaNYL patch [Duragesic patch] 25 mcg TRANSDERM. Q72H 15 Days #5 10/19/17 patch oxycodone-acetaminophen 5 mg-325 1 tab PO 4X/DAY PRN #30 tab 11/11/17 mg tablet Maternal Family History: No pertinent history Paternal Family History: No pertinent history Smoking Status: Never smoker Tobacco Use: Non-smoker Physical Exam Vital Signs Temp Pulse Resp BP 97.7 F L 60 16 131/73 H 11/18/17 13:26 11/18/17 13:26 11/18/17 13:26 11/18/17 13:26 Assessment/Plan The patient appears to be tolerating hyperbaric oxygen therapy well, which will be continued as per the patient's medical plan.
[2017-11-21 12:07] VITALS: BP 117/80; PULSE 60; RESP 18; TEMP 36.2
[2017-11-21 13:48] VITALS: BP 135/96; PULSE 63; RESP 18; TEMP 36
--- NOTE | 2017-11-21 15:17 | PCM.HBO.PN ---
History of Present Illness Date of Service: 11/21/17 Presenting Chief Complaint: Nonhealing ulcers bilateral legs s/p skin grafting with some compromise and new onset ulcers left posterior ankle and right posterior ankle. GEORGINA SKINNER is a 57 year old currently undergoing hyperbaric oxygen therapy for compromised skin grafts bilateral lower extremities. Progress: Hyperbaric oxygen therapy was administered today, and was well tolerated by the patient. Today's session represents a 25th session of hyperbaric oxygen therapy. Tolerance of hyperbaric oxygen therapy: Hyperbaric oxygen therapy was administered as per the facility's protocol. The patient tolerated hyperbaric oxygen therapy well, without complaints or complications. The hyperbaric oxygen treatment was completed in its entirety. Upon emergence from the hyperbaric chamber, patient's vital signs were noted to be stable. She was discharged in good condition. Past Medical History Chronic Problems (Last Updated 10/07/17 @ 16:44 by Sari Hawk DO) Glioblastoma multiforme (Chronic) Allergies/Adverse Reactions: Allergies adhesive tape Adverse Reaction (Verified 06/24/17 09:09) VERY THIN STEROID SKIN WILL REMOVE SKIN IF ON TOO LONG Home Medications: Ambulatory Orders Medication Instructions Recorded Cholecalciferol (Vitamin D3) 5,000 unit PO DAILY 03/02/17 [Vitamin D3] Dexamethasone 3 mg PO DAILY 03/02/17 Famotidine [Pepcid] 20 mg PO BID 03/02/17 Multivitamin [Daily Multiple 1 each PO DAILY 03/02/17 Vitamin] Ondansetron [Zofran] 8 mg PO Q8H PRN PRN 03/02/17 Levetiracetam 750 mg PO BID 05/03/17 Lisinopril 1 tablet PO DAILY 05/03/17 Acetaminophen [Tylenol Tablet] 650 mg PO Q6H PRN PRN tablet 06/28/17 Calcium (Elemental) [Os-Guido 500] 500 mg PO DAILY 07/08/17 Lactobacillus Acidophilus 1 each PO DAILY 07/08/17 [Acidophilus Lactobacilli] Magnesium Hydroxide [Milk Of 30 ml PO DAILY PRN PRN 07/08/17 Magnesia] proMETHazine tablet [Phenergan 25 mg PO Q4H PRN PRN 07/08/17 tablet] Bisacodyl 10 mg RECTAL QHS PRN PRN #30 08/15/17 supp.rect Diazepam [Valium] 5 mg PO 4X/DAY PRN PRN #30 tab 08/15/17 HYDROmorphone tablet [Dilaudid] 2 - 4 mg PO 4X/DAY PRN PRN #50 tab 08/15/17 Nutritional Supplement [Rodger - 1 packet PO BIDCM #60 packet 08/15/17 ORANGE FLAVOR] Polyethylene Glycol 3350 [Miralax] 17 gm PO DAILY #30 packet 08/15/17 Potassium Chloride [K-Dur] 20 meq PO DAILYCM #30 tab 08/15/17 fentaNYL patch [Duragesic patch] 50 mcg TRANSDERM. Q3D@1000 #5 patch 08/15/17 Diazepam [Valium] 5 mg PO BID PRN 10 Days #29 tab 08/17/17 Gabapentin [Neurontin] 300 mg PO BIDCM 30 Days #60 08/17/17 HYDROmorphone tablet [Dilaudid] 2 mg PO 4X/DAY PRN PRN 7 Days #30 08/17/17 tab Linezolid [Zyvox] 600 mg PO BID 14 Days #28 tab 08/17/17 0.9 % Sodium Chloride [Saline 210 ml MC .QDAILY 30 Days #10 08/18/17 Wound Wash] bottle Gauze Bandage [Gauze Pads] 6 ea TP .QDAILY 30 Days #180 08/18/17 bandage Gauze Bandage [Rolled Gauze] 2 ea TP .QDAILY 30 Days #60 bandage 08/18/17 Gloves [Nitrile Exam Gloves] 1 pair MC .QDAILY 30 Days #2 box 08/18/17 Silver/Hydrocolloid Dressing 2 ea TP .QDAILY 30 Days #60 bandage 08/18/17 [Aquacel-Ag W-Hydrofiber Dress] Levofloxacin [Levaquin] 500 mg PO .QDAILY 14 Days #14 tab 10/17/17 fentaNYL patch [Duragesic patch] 25 mcg TRANSDERM. Q72H 15 Days #5 10/19/17 patch Oxycodone HCl/Acetaminophen 1 tab PO 4X/DAY PRN PRN 7 Days #30 11/18/17 [Percocet 5-325] tab Maternal Family History: No pertinent history Paternal Family History: No pertinent history Smoking Status: Never smoker Tobacco Use: Non-smoker Physical Exam Vital Signs Temp Pulse Resp BP 96.8 F L 63 18 135/96 H 11/21/17 13:48 11/21/17 13:48 11/21/17 13:48 11/21/17 13:48 General: Alert, Oriented x3, Cooperative, No apparent distress, Well developed, Well nourished HEENT: Atraumatic, PERRLA, EOMI, Normocephalic Lungs: Normal air movement Psych/Mental Status: Normal Affect, Appropriate, Alert and oriented to time, place, person, mood and affect Assessment/Plan Patient appears to be tolerating hyperbaric oxygen therapy well, which will be continued as per the patient's medical plan.
--- NOTE | 2017-11-21 21:48 | PN.PCM_ITS ---
Type of Wound Date of Service: 11/21/17 Chief Complaint: Nonhealing ulcers bilateral legs s/p skin grafting with some compromise and new onset ulcers left posterior ankle and right posterior ankle. History of Wound: Surgery 08/02/17 - 1. Excisional debridement nonhealing ulcer left posterior leg with STSG reconstruction from lower anterior abdominal wall ( 9 cm2). 2. Excisional debridement nonhealing ulcer left lateral leg with STSG reconstruction from lower anterior abdominal wall (30.5 cm2). 3. Excisional debridement nonhealing ulcer left anterior lower leg with STSG reconstruction from lower anterior abdominal wall (27 cm2). 4. Excisional debridement nonhealing ulcer right lateral leg with STSG reconstruction from lower anterior abdominal wall (14.25 cm2). 5. Excisional debridement nonhealing ulcer right anterior superior leg with STSG reconstruction from lower anterior abdominal wall (7 cm2). 6. Excisional debridement nonhealing ulcer right lower leg/ medial ankle with STSG reconstruction from lower anterior abdominal wall (24.5 cm2). Wound care - Silver with Adaptic and Surepress for compression. Operative culture - Enterococcus faecium. She was treated with Vancomycin and was discharged on Zyvox and has finished them (Insurance would not approve any more). There was another wound culture on 10/13/17 which showed Enterobacter. She was placed on Levaquin and has finished them. Prealbumin from 07/30/17 was 22.5. She takes nutritional supplementation with protein to help the healing process. Today she denies fever. Her appetite is good. With her skin graft compromise, she would benefit from HBO treatments. We obtained an MRI prior to starting HBO to evaluate the status of the brain cancer. [facility] looked at it and stated the cancer was stable and not actively growing. So we started the HBO treatments. She is tolerating them thus far. Due to some pressure, possibly from the dressing, she has noted a new onset left posterior ankle ulceration and right posterior ankle ulceration. Progress of Wound: Bilateral legs skin graft surgery 08/02/17 with some compromise and right posterior ankle ulcer, left posterior leg ulcer, and right lateral leg ulcer have healed. - Physical Exam Vital Signs Temp Pulse Resp BP 96.8 F L 63 18 135/96 H 11/21/17 13:48 11/21/17 13:48 11/21/17 13:48 11/21/17 13:48 Wound Measurements and Assessment WC - Nurse 1 - General Ulcer Measurement Start: 11/15/17 13:05 Freq: Status: Active Protocol: Activity Type Activity Date Activity User E-Sign Co-Sign Detail Recorded Client Recorded Date Recorded By Document 11/21/17 12:07 [id number] 11/21/17 12:27 TM 11/21/17 12:07 Wound Center Nurse 1 [Ulcer Assessment] #13 R Achilles -Combined with other wound No -Current Size (cm) - Length 0.3 -Current Size (cm) - Width 0.3 -Current Size (cm) - Depth 0.1 -Total Square Cm 0.09 -Date of Last Picture (Recall this 11/21/17 field) -Photo Taken Yes -Epithelialization Large 67-100% -Tunneling No -Undermining/Tunneling No -Circular Undermining No -Exudate Amt None Present (0 %) -Wound Margin Distinct, Outline Attached -Granulation Amt None Present (0 %) -Slough/Fibrin Yes -Necrosis Amt Large (67-100%) -Necrotic Tissue Type Adherent Slough -Structure Exposed N/A -Texture (Riddhi-wound Skin Appearance) Scarring -Moisture (Riddhi-wound Skin Appearance Dry/Scaly ) -Color (Riddhi-wound Skin Appearance) Assessed -Temperature (Riddhi-wound Skin No Abnormality Appearance) (Pt Warm) -Tenderness on Palpation (Riddhi-wound No Skin Appearance) -Ulcer Cleansing Rinsed/ Irrigated with Saline -Foul Odor after Cleansing No -Anesthetic Used 4% Lidocaine Solution #12 L Achilles -Combined with other wound No -Current Size (cm) - Length 2.4 -Current Size (cm) - Width 2.2 -Current Size (cm) - Depth 0.2 -Total Square Cm 5.28 -Date of Last Picture (Recall this 11/21/17 field) -Photo Taken Yes -Epithelialization None Present -Tunneling No -Undermining/Tunneling Yes -Undermining/Tunneling Starts (O' 12 clock) -Undermining/Tunneling Ends (O'clock) 12 -Maximum Distance (cm) 0.2 -Circular Undermining Yes -Exudate Amt Small (1-33%) -Exudate Type Serosanguineous -Wound Margin Distinct, Outline Attached -Granulation Amt Medium (34-66%) -Granulation Quality Morrison -Slough/Fibrin Yes -Necrosis Amt Small (1-33%) -Necrotic Tissue Type Adherent Slough -Structure Exposed Tendon -Texture (Riddhi-wound Skin Appearance) Scarring -Moisture (Riddhi-wound Skin Appearance Dry/Scaly ) -Color (Riddhi-wound Skin Appearance) Assessed -Temperature (Riddhi-wound Skin No Abnormality Appearance) (Pt Warm) -Tenderness on Palpation (Riddhi-wound No Skin Appearance) -Ulcer Cleansing Rinsed/ Irrigated with Saline -Foul Odor after Cleansing No -Anesthetic Used 4% Lidocaine Solution #19 R Sup [place] -Combined with other wound No -Current Size (cm) - Length 0.7 -Current Size (cm) - Width 0.5 -Current Size (cm) - Depth 0.3 -Total Square Cm 0.35 -Date of Last Picture (Recall this 11/21/17 field) -Photo Taken Yes -Epithelialization None Present -Tunneling No -Undermining/Tunneling Yes -Undermining/Tunneling Starts (O' 12 clock) -Undermining/Tunneling Ends (O'clock) 12 -Circular Undermining Yes -Exudate Amt Small (1-33%) -Exudate Type Serosanguineous -Wound Margin Distinct, Outline Attached -Granulation Amt Large (67-100%) -Granulation Quality Morrison -Slough/Fibrin Yes -Necrosis Amt Small (1-33%) -Texture (Riddhi-wound Skin Appearance) Scarring -Moisture (Riddhi-wound Skin Appearance Dry/Scaly ) -Color (Riddhi-wound Skin Appearance) Assessed -Temperature (Riddhi-wound Skin No Abnormality Appearance) (Pt Warm) -Tenderness on Palpation (Riddhi-wound No Skin Appearance) -Ulcer Cleansing Rinsed/ Irrigated with Saline -Foul Odor after Cleansing No -Anesthetic Used 4% Lidocaine Solution #18 R Lat Leg -Combined with other wound No -Current Size (cm) - Length 0.1 -Current Size (cm) - Width 0.1 -Current Size (cm) - Depth 0.1 -Total Square Cm 0.01 -Date of Last Picture (Recall this 11/21/17 field) -Photo Taken Yes -Epithelialization Large 67-100% -Tunneling No -Undermining/Tunneling No -Circular Undermining No -Exudate Amt None Present (0 %) #17 L Lower [place] -Combined with other wound No -Current Size (cm) - Length 5.0 -Current Size (cm) - Width 3.9 -Current Size (cm) - Depth 0.7 -Total Square Cm 19.50 -Date of Last Picture (Recall this 11/21/17 field) -Photo Taken Yes -Epithelialization None Present -Tunneling No -Undermining/Tunneling Yes -Undermining/Tunneling Starts (O' 11 clock) -Undermining/Tunneling Ends (O'clock) 2 -Maximum Distance (cm) 0.2 -Circular Undermining No -Exudate Amt Medium (34-66%) -Exudate Type Serosanguineous -Wound Margin Distinct, Outline Attached -Granulation Amt Large (67-100%) -Granulation Quality Morrison -Slough/Fibrin Yes -Necrosis Amt Small (1-33%) -Necrotic Tissue Type Adherent Slough -Structure Exposed Tendon -Texture (Riddhi-wound Skin Appearance) Scarring -Moisture (Riddhi-wound Skin Appearance Dry/Scaly ) -Color (Riddhi-wound Skin Appearance) Assessed -Temperature (Riddhi-wound Skin No Abnormality Appearance) (Pt Warm) -Tenderness on Palpation (Riddhi-wound No Skin Appearance) -Ulcer Cleansing Rinsed/ Irrigated with Saline -Foul Odor after Cleansing No -Anesthetic Used 4% Lidocaine Solution #14 L Post Leg -Combined with other wound No -Current Size (cm) - Length 0.1 -Current Size (cm) - Width 0.1 -Current Size (cm) - Depth 0.1 -Total Square Cm 0.01 -Date of Last Picture (Recall this 11/21/17 field) -Photo Taken Yes -Epithelialization Large 67-100% -Tunneling No -Undermining/Tunneling No -Circular Undermining No [Edema Assessment] -Lower Limb Edema Present Yes -Right Calf (cm) 34 -Right Ankle (cm) 21 -Point of measurement (cm from the 35 medial instep) -Point of Measurement (cm from the 22.5 medial instep) WC - Nurse 2 - General Ulcer CM Notes Start: 11/15/17 13:05 Freq: Status: Active Protocol: Activity Type Activity Date Activity User E-Sign Co-Sign Detail Recorded Client Recorded Date Recorded By Document 11/21/17 12:49 RANDY [id number] 11/21/17 12:54 RANDY 11/21/17 12:49 Wound Center Nurse 2 [Procedure/Treatment] #13 R Achilles -Correct Patient No -Correct Side, Site, Position No -Correct Procedure No -Procedure Performed No -Post Debridement Size (cm) - Length 0 -Post Debridement Size (cm) - Width 0 -Post Debridement Size (cm) - Depth 0 -Total Square Cm 0 -Wound/Ulcer Outcome Healed- Epithelialized #12 L Achilles -Time 12:49 -Correct Patient Yes -Correct Side, Site, Position Yes -Correct Procedure Yes -Procedure Performed Yes -Type of Procedure Debridement -Clinical Debridement Subcutaneous -Post Debridement Size (cm) - Length 2.5 -Post Debridement Size (cm) - Width 2.2 -Post Debridement Size (cm) - Depth 0.2 -Total Square Cm 5.50 -Wound/Ulcer Outcome Not Healed -Ulcer Cleansing Rinsed/ Irrigated with Saline -Foul Odor after Cleansing No -Bioengineered Tissue No -Bleeding Controlled with Pressure -Treatment Response Procedure Tolerated Well #19 R Sup Rasmussen -Time 12:50 -Correct Patient Yes -Correct Side, Site, Position Yes -Correct Procedure Yes -Procedure Performed Yes -Type of Procedure Debridement -Clinical Debridement Subcutaneous -Post Debridement Size (cm) - Length 0.8 -Post Debridement Size (cm) - Width 0.5 -Post Debridement Size (cm) - Depth 0.3 -Total Square Cm 0.40 -Wound/Ulcer Outcome Not Healed -Ulcer Cleansing Rinsed/ Irrigated with Saline -Foul Odor after Cleansing No -Bioengineered Tissue No -Bleeding Controlled with Pressure -Treatment Response Procedure Tolerated Well #18 R Lat Leg -Correct Patient No -Correct Side, Site, Position No -Correct Procedure No -Procedure Performed No -Post Debridement Size (cm) - Length 0 -Post Debridement Size (cm) - Width 0 -Post Debridement Size (cm) - Depth 0 -Total Square Cm 0 -Wound/Ulcer Outcome Healed- Epithelialized #17 L Lower Rasmussen -Time 12:51 -Correct Patient Yes -Correct Side, Site, Position Yes -Correct Procedure Yes -Procedure Performed Yes -Type of Procedure Debridement -Clinical Debridement Muscle -Post Debridement Size (cm) - Length 5 -Post Debridement Size (cm) - Width 4 -Post Debridement Size (cm) - Depth 0.7 -Total Square Cm 20 -Wound/Ulcer Outcome Not Healed -Ulcer Cleansing Rinsed/ Irrigated with Saline -Foul Odor after Cleansing No -Bioengineered Tissue No -Bleeding Controlled with Pressure -Treatment Response Procedure Tolerated Well #14 L Post Leg -Correct Patient No -Correct Side, Site, Position No -Correct Procedure No -Procedure Performed No -Post Debridement Size (cm) - Length 0 -Post Debridement Size (cm) - Width 0 -Post Debridement Size (cm) - Depth 0 -Total Square Cm 0 -Wound/Ulcer Outcome Healed- Epithelialized [See Physician Procedure note for Specifics] Pain Scale: 0-10 Numeric [Pain] -Is Patient Pain Free? Yes Debridement Note Post-Debridement Measurements/Treatment WC - Nurse 2 - General Ulcer CM Notes Start: 11/15/17 13:05 Freq: Status: Active Protocol: Activity Type Activity Date Activity User E-Sign Co-Sign Detail Recorded Client Recorded Date Recorded By Document 11/21/17 12:49 RANDY [id number] 11/21/17 12:54 RANDY 11/21/17 12:49 Wound Center Nurse 2 #13 R Achilles -Correct Patient No -Correct Side, Site, Position No -Correct Procedure No -Procedure Performed No -Post Debridement Size (cm) - Length 0 -Post Debridement Size (cm) - Width 0 -Post Debridement Size (cm) - Depth 0 -Total Square Cm 0 -Wound/Ulcer Outcome Healed- Epithelialized #12 L Achilles -Time 12:49 -Correct Patient Yes -Correct Side, Site, Position Yes -Correct Procedure Yes -Procedure Performed Yes -Type of Procedure Debridement -Clinical Debridement Subcutaneous -Post Debridement Size (cm) - Length 2.5 -Post Debridement Size (cm) - Width 2.2 -Post Debridement Size (cm) - Depth 0.2 -Total Square Cm 5.50 -Wound/Ulcer Outcome Not Healed -Ulcer Cleansing Rinsed/ Irrigated with Saline -Foul Odor after Cleansing No -Bioengineered Tissue No -Bleeding Controlled with Pressure -Treatment Response Procedure Tolerated Well #19 R Sup R[place]ussen -Time 12:50 -Correct Patient Yes -Correct Side, Site, Position Yes -Correct Procedure Yes -Procedure Performed Yes -Type of Procedure Debridement -Clinical Debridement Subcutaneous -Post Debridement Size (cm) - Length 0.8 -Post Debridement Size (cm) - Width 0.5 -Post Debridement Size (cm) - Depth 0.3 -Total Square Cm 0.40 -Wound/Ulcer Outcome Not Healed -Ulcer Cleansing Rinsed/ Irrigated with Saline -Foul Odor after Cleansing No -Bioengineered Tissue No -Bleeding Controlled with Pressure -Treatment Response Procedure Tolerated Well #18 R Lat Leg -Correct Patient No -Correct Side, Site, Position No -Correct Procedure No -Procedure Performed No -Post Debridement Size (cm) - Length 0 -Post Debridement Size (cm) - Width 0 -Post Debridement Size (cm) - Depth 0 -Total Square Cm 0 -Wound/Ulcer Outcome Healed- Epithelialized #17 L Lower R[place] -Time 12:51 -Correct Patient Yes -Correct Side, Site, Position Yes -Correct Procedure Yes -Procedure Performed Yes -Type of Procedure Debridement -Clinical Debridement Muscle -Post Debridement Size (cm) - Length 5 -Post Debridement Size (cm) - Width 4 -Post Debridement Size (cm) - Depth 0.7 -Total Square Cm 20 -Wound/Ulcer Outcome Not Healed -Ulcer Cleansing Rinsed/ Irrigated with Saline -Foul Odor after Cleansing No -Bioengineered Tissue No -Bleeding Controlled with Pressure -Treatment Response Procedure Tolerated Well #14 L Post Leg -Correct Patient No -Correct Side, Site, Position No -Correct Procedure No -Procedure Performed No -Post Debridement Size (cm) - Length 0 -Post Debridement Size (cm) - Width 0 -Post Debridement Size (cm) - Depth 0 -Total Square Cm 0 -Wound/Ulcer Outcome Healed- Epithelialized Pain Scale: 0-10 Numeric Is Patient Pain Free? Yes Wound debrided: #12 Left posterior ankle. Laterality: Left Wound Grade/Stage: 2. Type of Debridement: Excisional debridement Anesthesia Used: 4% Lidocaine Solution Depth: Down to and including healthy tissue, in the subcutaneous layer Percentage of wound debrided: 100 Instrument Used: 3mm curette Tissue Removed: subcutaneous tissue. Severity: Fat Layer Exposed Amount of bleeding with debridement: Mild Bleeding Controlled with: Pressure Patient tolerated procedure well - Additional Wound Wound debrided: #13 Right posterior ankle. Laterality: Right Wound Grade/Stage: 2. Patient tolerated procedure: - - No debridement was done today as the ulcer has healed. - Additional Wound Wound debrided: #14 Left posterior leg skin graft. Laterality: Left Wound Grade/Stage: 2. Patient tolerated procedure: - - No debridement was done today as the ulcer has healed. - Additional Wound Wound debrided: #17 Left anterior lower leg skin graft. Laterality: Left Wound Grade/Stage: 2. Type of Debridement: Excisional debridement Anesthesia Used: 4% Lidocaine Solution Depth: Down to and including healthy tissue, in the subcutaneous layer, to muscle Percentage of wound debrided: 100 Instrument Used: 5mm curette Tissue Removed: subcutaneous tissue and muscle. Severity: Fat Layer Exposed - muscle is exposed. Amount of bleeding with debridement: Mild Bleeding Controlled with: Pressure Patient tolerated procedure: Patient tolerated procedure well - Additional Wound Wound debrided: #18 Right lateral leg skin graft. Laterality: Right Wound Grade/Stage: 2. Patient tolerated procedure: - - No debridement was done today as the ulcer has healed. - Additional Wound Wound debrided: #19 Right anterior superior leg skin graft. Laterality: Right Wound Grade/Stage: 2. Type of Debridement: Excisional debridement Anesthesia Used: 4% Lidocaine Solution Depth: Down to and including healthy tissue, in the subcutaneous layer Percentage of wound debrided: 100 Instrument Used: 3mm curette Tissue Removed: subcutaneous tissue. Severity: Fat Layer Exposed Amount of bleeding with debridement: Mild Bleeding Controlled with: Pressure Patient tolerated procedure: Patient tolerated procedure well Assessment/Plan Active Problems (Last Updated 12/16/17 @ 17:12 by Sari Hawk DO) GERD (gastroesophageal reflux disease) (Chronic) Nausea (Chronic) Seizure disorder (Chronic) Hypertension (Chronic) Anxiety (Chronic) Chronic pain (Chronic) Neuropathic pain (Chronic) Assessment: 1. Ulcer left posterior leg, healed. 2. Nonhealing ulcer left anterior lower leg. 3. Ulcer right lateral leg, healed. 4. Nonhealing ulcer right anterior superior leg. 5. Brain tumor - receiving chemotherapy, on hold. 6. s/p excisional debridement nonhealing ulcer left posterior leg with STSG reconstruction from lower anterior abdominal wall (9 cm2) and excisional debridement nonhealing ulcer left lateral leg with STSG reconstruction from lower anterior abdominal wall (30.5 cm2) and excisional debridement nonhealing ulcer left anterior lower leg with STSG reconstruction from lower anterior abdominal wall (27 cm2) and excisional debridement nonhealing ulcer right lateral leg with STSG reconstruction from lower anterior abdominal wall (14.25 cm2) and excisional debridement nonhealing ulcer right anterior superior leg with STSG reconstruction from lower anterior abdominal wall (7 cm2) and excisional debridement nonhealing ulcer right lower leg/medial ankle with STSG reconstruction from lower anterior abdominal wall (24.5 cm2). 7. Early compromise to skin grafts bilateral leg ulcers with the biggest compromise to the left anterior lower leg graft. 8. Nonhealing ulcer left posterior ankle. 9. Ulcer right posterior ankle, healed. Plan: Continue Silvercel daily to the ulcers with Surepress compression. The Silver is starting to dry out the ulcers. Will add Adaptic to the ulcers. It will also help the tendons from drying out as well. Her abdominal wall donor incision is healing satisfactory. 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 With her compromised skin grafts, she needs HBO treatments to help salvage the compromise. She has started HBO treatments and is tolerating them. Another wound culture was done on 10/13/17 which showed Enterobacter cloacae. She was started on Levaquin and finished them. Chemotherapy continues to be on hold because of the skin graft compromise. An MRI was done to evaluate the brain cancer before starting HBO, and according to [facility], the MRI was ok as the cancer has stabilized and is not actively growing at this time. She has started HBO treatments and is tolerating them thus far. Her Prealbumin from 07/30/17 was 22.5. She takes nutritional supplementation with protein to help the healing process. A lot of progress was noted today with healing of the compromised skin grafts. The right lateral leg skin graft ulcer is healed. The right anterior superior leg skin graft wound is getting smaller and may be able to be closed at surgery with a localized skin flap. The left posterior leg skin graft ulcer is healed. The right posterior ankle ulcer has healed. The left posterior ankle ulcer is healing and getting smaller with less exposure of the tendon. The left anterior lower leg skin graft ulcer is also getting smaller and the wound base is stabilizing and is the main one that will need a complete new skin graft. She woiuld benefit from additional HBO treatments since it appears to be strengthening the skin graft ulcers with improved salvage. The goal is to minimize the need for additional surgery and if surgery is needed, it would be less extensive as a result of the HBO treatments. Tentatively will plan on operative debridement and skin grafting in December after the HBO is completed. Will plan on HBO postop as well. Renewed her Durgagesic Patch for pain 25mcg ( 5 patches). Followup 3 weeks.
[2017-11-23 10:00] VITALS: BP 118/75; BP 120/71; PULSE 56; PULSE 62; RESP 16; TEMP 36.1; TEMP 36.3
--- NOTE | 2017-11-23 17:59 | PCM.HBO.PN ---
History of Present Illness Date of Service: 11/23/17 Presenting Chief Complaint: Nonhealing ulcers bilateral legs s/p skin grafting with some compromise and new onset ulcers left posterior ankle and right posterior ankle. GEORGINA SKINNER is a 57 year old currently undergoing hyperbaric oxygen therapy for compromised skin grafts bilateral lower extremities. Progress: Hyperbaric oxygen therapy was administered today, and was well tolerated by the patient. Tolerance of hyperbaric oxygen therapy: Hyperbaric oxygen therapy was administered as per the facility's protocol. The patient tolerated hyperbaric oxygen therapy well, without complaints or complications. The hyperbaric oxygen treatment was completed in its entirety. Upon emergence from the hyperbaric chamber, patient's vital signs were noted to be stable. She was discharged in good condition. Past Medical History Chronic Problems (Last Updated 10/07/17 @ 16:44 by Sari Hawk DO) Glioblastoma multiforme (Chronic) Allergies/Adverse Reactions: Allergies adhesive tape Adverse Reaction (Verified 06/24/17 09:09) VERY THIN STEROID SKIN WILL REMOVE SKIN IF ON TOO LONG Home Medications: Ambulatory Orders Medication Instructions Recorded Cholecalciferol (Vitamin D3) 5,000 unit PO DAILY 03/02/17 [Vitamin D3] Dexamethasone 3 mg PO DAILY 03/02/17 Famotidine [Pepcid] 20 mg PO BID 03/02/17 Multivitamin [Daily Multiple 1 each PO DAILY 03/02/17 Vitamin] Ondansetron [Zofran] 8 mg PO Q8H PRN PRN 03/02/17 Levetiracetam 750 mg PO BID 05/03/17 Lisinopril 1 tablet PO DAILY 05/03/17 Acetaminophen [Tylenol Tablet] 650 mg PO Q6H PRN PRN tablet 06/28/17 Calcium (Elemental) [Os-Guido 500] 500 mg PO DAILY 07/08/17 Lactobacillus Acidophilus 1 each PO DAILY 07/08/17 [Acidophilus Lactobacilli] Magnesium Hydroxide [Milk Of 30 ml PO DAILY PRN PRN 07/08/17 Magnesia] proMETHazine tablet [Phenergan 25 mg PO Q4H PRN PRN 07/08/17 tablet] Bisacodyl 10 mg RECTAL QHS PRN PRN #30 08/15/17 supp.rect Diazepam [Valium] 5 mg PO 4X/DAY PRN PRN #30 tab 08/15/17 HYDROmorphone tablet [Dilaudid] 2 - 4 mg PO 4X/DAY PRN PRN #50 tab 08/15/17 Nutritional Supplement [Rodger - 1 packet PO BIDCM #60 packet 08/15/17 ORANGE FLAVOR] Polyethylene Glycol 3350 [Miralax] 17 gm PO DAILY #30 packet 08/15/17 Potassium Chloride [K-Dur] 20 meq PO DAILYCM #30 tab 08/15/17 fentaNYL patch [Duragesic patch] 50 mcg TRANSDERM. Q3D@1000 #5 patch 08/15/17 Diazepam [Valium] 5 mg PO BID PRN 10 Days #29 tab 08/17/17 Gabapentin [Neurontin] 300 mg PO BIDCM 30 Days #60 08/17/17 HYDROmorphone tablet [Dilaudid] 2 mg PO 4X/DAY PRN PRN 7 Days #30 08/17/17 tab Linezolid [Zyvox] 600 mg PO BID 14 Days #28 tab 08/17/17 0.9 % Sodium Chloride [Saline 210 ml MC .QDAILY 30 Days #10 08/18/17 Wound Wash] bottle Gauze Bandage [Gauze Pads] 6 ea TP .QDAILY 30 Days #180 08/18/17 bandage Gauze Bandage [Rolled Gauze] 2 ea TP .QDAILY 30 Days #60 bandage 08/18/17 Gloves [Nitrile Exam Gloves] 1 pair MC .QDAILY 30 Days #2 box 08/18/17 Silver/Hydrocolloid Dressing 2 ea TP .QDAILY 30 Days #60 bandage 08/18/17 [Aquacel-Ag W-Hydrofiber Dress] Levofloxacin [Levaquin] 500 mg PO .QDAILY 14 Days #14 tab 10/17/17 fentaNYL patch [Duragesic patch] 25 mcg TRANSDERM. Q72H 15 Days #5 10/19/17 patch Oxycodone HCl/Acetaminophen 1 tab PO 4X/DAY PRN PRN 7 Days #30 11/18/17 [Percocet 5-325] tab Maternal Family History: No pertinent history Paternal Family History: No pertinent history Smoking Status: Never smoker Tobacco Use: Non-smoker Physical Exam Vital Signs Temp Pulse Resp BP 97.3 F L 62 16 120/71 11/23/17 10:00 11/23/17 10:00 11/23/17 10:00 11/23/17 10:00 General: Alert, Oriented x3, Cooperative, No apparent distress HEENT: Atraumatic, Normocephalic Lungs: Normal air movement Cardiovascular: Regular rate Psych/Mental Status: Normal Affect Assessment/Plan The patient appears to be tolerating hyperbaric oxygen therapy well, which will be continued as per the patient's medical plan.
[2017-11-28 13:02] VITALS: BP 112/80; BP 133/97; PULSE 51; PULSE 60; RESP 16; TEMP 36; TEMP 36.7
--- NOTE | 2017-11-28 17:44 | PCM.HBO.PN ---
History of Present Illness Date of Service: 11/28/17 Presenting Chief Complaint: Nonhealing ulcers bilateral legs s/p skin grafting with some compromise and new onset ulcers left posterior ankle and right posterior ankle. GEORGINA SKINNER is a 57 year old currently undergoing hyperbaric oxygen therapy for compromised skin grafts bilateral lower extremities. Progress: Hyperbaric oxygen therapy was administered today, and was well tolerated by the patient. Today's session represents the 27th such session of hyperbaric oxygen therapy. Tolerance of hyperbaric oxygen therapy: Hyperbaric oxygen therapy was administered as per the facility's protocol. The patient tolerated hyperbaric oxygen therapy well, without complaints or complications. The hyperbaric oxygen treatment was completed in its entirety. Upon emergence from the hyperbaric chamber, patient's vital signs were noted to be stable. She was discharged in good condition. Past Medical History Chronic Problems (Last Updated 10/07/17 @ 16:44 by Sari Hawk DO) Glioblastoma multiforme (Chronic) Allergies/Adverse Reactions: Allergies adhesive tape Adverse Reaction (Verified 06/24/17 09:09) VERY THIN STEROID SKIN WILL REMOVE SKIN IF ON TOO LONG Home Medications: Ambulatory Orders Medication Instructions Recorded Cholecalciferol (Vitamin D3) 5,000 unit PO DAILY 03/02/17 [Vitamin D3] Dexamethasone 3 mg PO DAILY 03/02/17 Famotidine [Pepcid] 20 mg PO BID 03/02/17 Multivitamin [Daily Multiple 1 each PO DAILY 03/02/17 Vitamin] Ondansetron [Zofran] 8 mg PO Q8H PRN PRN 03/02/17 Levetiracetam 750 mg PO BID 05/03/17 Lisinopril 1 tablet PO DAILY 05/03/17 Acetaminophen [Tylenol Tablet] 650 mg PO Q6H PRN PRN tablet 06/28/17 Calcium (Elemental) [Os-Guido 500] 500 mg PO DAILY 07/08/17 Lactobacillus Acidophilus 1 each PO DAILY 07/08/17 [Acidophilus Lactobacilli] Magnesium Hydroxide [Milk Of 30 ml PO DAILY PRN PRN 07/08/17 Magnesia] proMETHazine tablet [Phenergan 25 mg PO Q4H PRN PRN 07/08/17 tablet] Bisacodyl 10 mg RECTAL QHS PRN PRN #30 08/15/17 supp.rect Diazepam [Valium] 5 mg PO 4X/DAY PRN PRN #30 tab 08/15/17 HYDROmorphone tablet [Dilaudid] 2 - 4 mg PO 4X/DAY PRN PRN #50 tab 08/15/17 Nutritional Supplement [Rodger - 1 packet PO BIDCM #60 packet 08/15/17 ORANGE FLAVOR] Polyethylene Glycol 3350 [Miralax] 17 gm PO DAILY #30 packet 08/15/17 Potassium Chloride [K-Dur] 20 meq PO DAILYCM #30 tab 08/15/17 fentaNYL patch [Duragesic patch] 50 mcg TRANSDERM. Q3D@1000 #5 patch 08/15/17 Diazepam [Valium] 5 mg PO BID PRN 10 Days #29 tab 08/17/17 Gabapentin [Neurontin] 300 mg PO BIDCM 30 Days #60 08/17/17 HYDROmorphone tablet [Dilaudid] 2 mg PO 4X/DAY PRN PRN 7 Days #30 08/17/17 tab Linezolid [Zyvox] 600 mg PO BID 14 Days #28 tab 08/17/17 0.9 % Sodium Chloride [Saline 210 ml MC .QDAILY 30 Days #10 08/18/17 Wound Wash] bottle Gauze Bandage [Gauze Pads] 6 ea TP .QDAILY 30 Days #180 08/18/17 bandage Gauze Bandage [Rolled Gauze] 2 ea TP .QDAILY 30 Days #60 bandage 08/18/17 Gloves [Nitrile Exam Gloves] 1 pair MC .QDAILY 30 Days #2 box 08/18/17 Silver/Hydrocolloid Dressing 2 ea TP .QDAILY 30 Days #60 bandage 08/18/17 [Aquacel-Ag W-Hydrofiber Dress] Levofloxacin [Levaquin] 500 mg PO .QDAILY 14 Days #14 tab 10/17/17 fentaNYL patch [Duragesic patch] 25 mcg TRANSDERM. Q72H 15 Days #5 10/19/17 patch Oxycodone HCl/Acetaminophen 1 tab PO 4X/DAY PRN PRN 7 Days #30 11/18/17 [Percocet 5-325] tab Maternal Family History: No pertinent history Paternal Family History: No pertinent history Smoking Status: Never smoker Tobacco Use: Non-smoker Physical Exam Vital Signs Temp Pulse Resp BP 98.1 F 60 16 112/80 11/28/17 13:02 11/28/17 13:02 11/28/17 13:02 11/28/17 13:02 General: Alert, Oriented x3, Cooperative, No apparent distress, Well developed, Well nourished HEENT: Atraumatic, PERRLA, EOMI, Normocephalic Lungs: Normal air movement Psych/Mental Status: Normal Affect, Appropriate, Alert and oriented to time, place, person, mood and affect Assessment/Plan The patient appears to be tolerating hyperbaric oxygen therapy well, which will be continued as per the patient's medical plan.
[2017-11-30 13:18] VITALS: BP 110/83; BP 135/79; PULSE 51; PULSE 61; RESP 16; TEMP 36; TEMP 36.6
[2017-12-01 13:41] VITALS: BP 110/62; BP 128/75; PULSE 64; PULSE 74; RESP 16; TEMP 36.3; TEMP 36.7
--- NOTE | 2017-12-01 16:21 | PCM.HBO.PN ---
History of Present Illness Date of Service: 12/01/17 Presenting Chief Complaint: Nonhealing ulcers bilateral legs s/p skin grafting with some compromise and new onset ulcers left posterior ankle and right posterior ankle. GEORGINA SKINNER is a 57 year old currently undergoing hyperbaric oxygen therapy for compromised skin grafts bilateral lower extremities. Progress: Hyperbaric oxygen therapy was administered today, and was well tolerated by the patient. Today's session represents the 28th such session of hyperbaric oxygen therapy. Tolerance of hyperbaric oxygen therapy: Hyperbaric oxygen therapy was administered as per the facility's protocol. The patient tolerated hyperbaric oxygen therapy well, without complaints or complications. The hyperbaric oxygen treatment was completed in its entirety. Upon emergence from the hyperbaric chamber, patient's vital signs were noted to be stable. She was discharged in good condition. Past Medical History Chronic Problems (Last Updated 10/07/17 @ 16:44 by Sari Hawk DO) Glioblastoma multiforme (Chronic) Allergies/Adverse Reactions: Allergies adhesive tape Adverse Reaction (Verified 06/24/17 09:09) VERY THIN STEROID SKIN WILL REMOVE SKIN IF ON TOO LONG Home Medications: Ambulatory Orders Medication Instructions Recorded Cholecalciferol (Vitamin D3) 5,000 unit PO DAILY 03/02/17 [Vitamin D3] Dexamethasone 3 mg PO DAILY 03/02/17 Famotidine [Pepcid] 20 mg PO BID 03/02/17 Multivitamin [Daily Multiple 1 each PO DAILY 03/02/17 Vitamin] Ondansetron [Zofran] 8 mg PO Q8H PRN PRN 03/02/17 Levetiracetam 750 mg PO BID 05/03/17 Lisinopril 1 tablet PO DAILY 05/03/17 Acetaminophen [Tylenol Tablet] 650 mg PO Q6H PRN PRN tablet 06/28/17 Calcium (Elemental) [Os-Guido 500] 500 mg PO DAILY 07/08/17 Lactobacillus Acidophilus 1 each PO DAILY 07/08/17 [Acidophilus Lactobacilli] Magnesium Hydroxide [Milk Of 30 ml PO DAILY PRN PRN 07/08/17 Magnesia] proMETHazine tablet [Phenergan 25 mg PO Q4H PRN PRN 07/08/17 tablet] Bisacodyl 10 mg RECTAL QHS PRN PRN #30 08/15/17 supp.rect Diazepam [Valium] 5 mg PO 4X/DAY PRN PRN #30 tab 08/15/17 HYDROmorphone tablet [Dilaudid] 2 - 4 mg PO 4X/DAY PRN PRN #50 tab 08/15/17 Nutritional Supplement [Rodger - 1 packet PO BIDCM #60 packet 08/15/17 ORANGE FLAVOR] Polyethylene Glycol 3350 [Miralax] 17 gm PO DAILY #30 packet 08/15/17 Potassium Chloride [K-Dur] 20 meq PO DAILYCM #30 tab 08/15/17 fentaNYL patch [Duragesic patch] 50 mcg TRANSDERM. Q3D@1000 #5 patch 08/15/17 Diazepam [Valium] 5 mg PO BID PRN 10 Days #29 tab 08/17/17 Gabapentin [Neurontin] 300 mg PO BIDCM 30 Days #60 08/17/17 HYDROmorphone tablet [Dilaudid] 2 mg PO 4X/DAY PRN PRN 7 Days #30 08/17/17 tab Linezolid [Zyvox] 600 mg PO BID 14 Days #28 tab 08/17/17 0.9 % Sodium Chloride [Saline 210 ml MC .QDAILY 30 Days #10 08/18/17 Wound Wash] bottle Gauze Bandage [Gauze Pads] 6 ea TP .QDAILY 30 Days #180 08/18/17 bandage Gauze Bandage [Rolled Gauze] 2 ea TP .QDAILY 30 Days #60 bandage 08/18/17 Gloves [Nitrile Exam Gloves] 1 pair MC .QDAILY 30 Days #2 box 08/18/17 Silver/Hydrocolloid Dressing 2 ea TP .QDAILY 30 Days #60 bandage 08/18/17 [Aquacel-Ag W-Hydrofiber Dress] Levofloxacin [Levaquin] 500 mg PO .QDAILY 14 Days #14 tab 10/17/17 fentaNYL patch [Duragesic patch] 25 mcg TRANSDERM. Q72H 15 Days #5 10/19/17 patch Oxycodone HCl/Acetaminophen 1 tab PO 4X/DAY PRN PRN 7 Days #30 11/18/17 [Percocet 5-325] tab oxycodone-acetaminophen 5 mg-325 See Label Instructions PO 4X/DAY 11/30/17 mg tablet PRN #40 tab Maternal Family History: No pertinent history Paternal Family History: No pertinent history Smoking Status: Never smoker Tobacco Use: Non-smoker Physical Exam Vital Signs Temp Pulse Resp BP 98.1 F 64 16 110/62 12/01/17 13:41 12/01/17 13:41 12/01/17 13:41 12/01/17 13:41 General: Alert, Oriented x3, Cooperative, No apparent distress HEENT: Atraumatic, PERRLA, Normocephalic, TM's Clear Lungs: Clear to auscultation, Normal air movement Cardiovascular: Regular rate, Regular Rhythm Psych/Mental Status: Normal Affect, Appropriate, Alert and oriented to time, place, person, mood and affect Assessment/Plan The patient appears to be tolerating hyperbaric oxygen therapy well, which will be continued as per the patient's medical plan.
[2017-12-02 12:48] VITALS: BP 112/78; BP 119/82; PULSE 50; PULSE 92; RESP 16; TEMP 36.2; TEMP 37.1
--- NOTE | 2017-12-02 15:32 | PCM.HBO.PN ---
History of Present Illness Date of Service: 12/02/17 Presenting Chief Complaint: Nonhealing ulcers bilateral legs s/p skin grafting with some compromise and new onset ulcers left posterior ankle and right posterior ankle. GEORGINA SKINNER is a 57 year old currently undergoing hyperbaric oxygen therapy for compromised skin grafts bilateral lower extremities. Progress: Hyperbaric oxygen therapy was administered today, and was well tolerated by the patient. Today's session represents the 28th such session of hyperbaric oxygen therapy. Tolerance of hyperbaric oxygen therapy: Hyperbaric oxygen therapy was administered as per the facility's protocol. The patient tolerated hyperbaric oxygen therapy well, without complaints or complications. The hyperbaric oxygen treatment was completed in its entirety. Upon emergence from the hyperbaric chamber, patient's vital signs were noted to be stable. She was discharged in good condition. Past Medical History Chronic Problems (Last Updated 10/07/17 @ 16:44 by Sari Hawk DO) Glioblastoma multiforme (Chronic) Allergies/Adverse Reactions: Allergies adhesive tape Adverse Reaction (Verified 06/24/17 09:09) VERY THIN STEROID SKIN WILL REMOVE SKIN IF ON TOO LONG Home Medications: Ambulatory Orders Medication Instructions Recorded Cholecalciferol (Vitamin D3) 5,000 unit PO DAILY 03/02/17 [Vitamin D3] Dexamethasone 3 mg PO DAILY 03/02/17 Famotidine [Pepcid] 20 mg PO BID 03/02/17 Multivitamin [Daily Multiple 1 each PO DAILY 03/02/17 Vitamin] Ondansetron [Zofran] 8 mg PO Q8H PRN PRN 03/02/17 Levetiracetam 750 mg PO BID 05/03/17 Lisinopril 1 tablet PO DAILY 05/03/17 Acetaminophen [Tylenol Tablet] 650 mg PO Q6H PRN PRN tablet 06/28/17 Calcium (Elemental) [Os-Guido 500] 500 mg PO DAILY 07/08/17 Lactobacillus Acidophilus 1 each PO DAILY 07/08/17 [Acidophilus Lactobacilli] Magnesium Hydroxide [Milk Of 30 ml PO DAILY PRN PRN 07/08/17 Magnesia] proMETHazine tablet [Phenergan 25 mg PO Q4H PRN PRN 07/08/17 tablet] Bisacodyl 10 mg RECTAL QHS PRN PRN #30 08/15/17 supp.rect Diazepam [Valium] 5 mg PO 4X/DAY PRN PRN #30 tab 08/15/17 HYDROmorphone tablet [Dilaudid] 2 - 4 mg PO 4X/DAY PRN PRN #50 tab 08/15/17 Nutritional Supplement [Rodger - 1 packet PO BIDCM #60 packet 08/15/17 ORANGE FLAVOR] Polyethylene Glycol 3350 [Miralax] 17 gm PO DAILY #30 packet 08/15/17 Potassium Chloride [K-Dur] 20 meq PO DAILYCM #30 tab 08/15/17 fentaNYL patch [Duragesic patch] 50 mcg TRANSDERM. Q3D@1000 #5 patch 08/15/17 Diazepam [Valium] 5 mg PO BID PRN 10 Days #29 tab 08/17/17 Gabapentin [Neurontin] 300 mg PO BIDCM 30 Days #60 08/17/17 HYDROmorphone tablet [Dilaudid] 2 mg PO 4X/DAY PRN PRN 7 Days #30 08/17/17 tab Linezolid [Zyvox] 600 mg PO BID 14 Days #28 tab 08/17/17 0.9 % Sodium Chloride [Saline 210 ml MC .QDAILY 30 Days #10 08/18/17 Wound Wash] bottle Gauze Bandage [Gauze Pads] 6 ea TP .QDAILY 30 Days #180 08/18/17 bandage Gauze Bandage [Rolled Gauze] 2 ea TP .QDAILY 30 Days #60 bandage 08/18/17 Gloves [Nitrile Exam Gloves] 1 pair MC .QDAILY 30 Days #2 box 08/18/17 Silver/Hydrocolloid Dressing 2 ea TP .QDAILY 30 Days #60 bandage 08/18/17 [Aquacel-Ag W-Hydrofiber Dress] Levofloxacin [Levaquin] 500 mg PO .QDAILY 14 Days #14 tab 10/17/17 fentaNYL patch [Duragesic patch] 25 mcg TRANSDERM. Q72H 15 Days #5 10/19/17 patch Oxycodone HCl/Acetaminophen 1 tab PO 4X/DAY PRN PRN 7 Days #30 11/18/17 [Percocet 5-325] tab oxycodone-acetaminophen 5 mg-325 See Label Instructions PO 4X/DAY 11/30/17 mg tablet PRN #40 tab Maternal Family History: No pertinent history Paternal Family History: No pertinent history Smoking Status: Never smoker Tobacco Use: Non-smoker Physical Exam Vital Signs Temp Pulse Resp BP 98.7 F 92 16 112/78 12/02/17 12:48 12/02/17 12:48 12/02/17 12:48 12/02/17 12:48 Assessment/Plan The patient appears to be tolerating hyperbaric oxygen therapy well, which will be continued as per the patient's medical plan.
[2017-12-05 12:43] VITALS: BP 134/81; BP 138/89; PULSE 52; PULSE 70; RESP 16; TEMP 35.8; TEMP 36.3
--- NOTE | 2017-12-05 16:16 | PCM.HBO.PN ---
History of Present Illness Date of Service: 12/05/17 Presenting Chief Complaint: Nonhealing ulcers bilateral legs s/p skin grafting with some compromise and new onset ulcers left posterior ankle and right posterior ankle. GEORGINA SKINNER is a 57 year old currently undergoing hyperbaric oxygen therapy for compromised skin grafts bilateral lower extremities. Progress: Hyperbaric oxygen therapy was administered today, and was well tolerated by the patient. Today's session represents the 31st such session of hyperbaric oxygen therapy. Tolerance of hyperbaric oxygen therapy: Hyperbaric oxygen therapy was administered as per the facility's protocol. The patient tolerated hyperbaric oxygen therapy well, without complaints or complications. The hyperbaric oxygen treatment was completed in its entirety. Upon emergence from the hyperbaric chamber, patient's vital signs were noted to be stable. She was discharged in good condition. Past Medical History Chronic Problems (Last Updated 10/07/17 @ 16:44 by Sari Hawk DO) Glioblastoma multiforme (Chronic) Allergies/Adverse Reactions: Allergies adhesive tape Adverse Reaction (Verified 06/24/17 09:09) VERY THIN STEROID SKIN WILL REMOVE SKIN IF ON TOO LONG Home Medications: Ambulatory Orders Medication Instructions Recorded Cholecalciferol (Vitamin D3) 5,000 unit PO DAILY 03/02/17 [Vitamin D3] Dexamethasone 3 mg PO DAILY 03/02/17 Famotidine [Pepcid] 20 mg PO BID 03/02/17 Multivitamin [Daily Multiple 1 each PO DAILY 03/02/17 Vitamin] Ondansetron [Zofran] 8 mg PO Q8H PRN PRN 03/02/17 Levetiracetam 750 mg PO BID 05/03/17 Lisinopril 1 tablet PO DAILY 05/03/17 Acetaminophen [Tylenol Tablet] 650 mg PO Q6H PRN PRN tablet 06/28/17 Calcium (Elemental) [Os-Guido 500] 500 mg PO DAILY 07/08/17 Lactobacillus Acidophilus 1 each PO DAILY 07/08/17 [Acidophilus Lactobacilli] Magnesium Hydroxide [Milk Of 30 ml PO DAILY PRN PRN 07/08/17 Magnesia] proMETHazine tablet [Phenergan 25 mg PO Q4H PRN PRN 07/08/17 tablet] Bisacodyl 10 mg RECTAL QHS PRN PRN #30 08/15/17 supp.rect Diazepam [Valium] 5 mg PO 4X/DAY PRN PRN #30 tab 08/15/17 HYDROmorphone tablet [Dilaudid] 2 - 4 mg PO 4X/DAY PRN PRN #50 tab 08/15/17 Nutritional Supplement [Rodger - 1 packet PO BIDCM #60 packet 08/15/17 ORANGE FLAVOR] Polyethylene Glycol 3350 [Miralax] 17 gm PO DAILY #30 packet 08/15/17 Potassium Chloride [K-Dur] 20 meq PO DAILYCM #30 tab 08/15/17 fentaNYL patch [Duragesic patch] 50 mcg TRANSDERM. Q3D@1000 #5 patch 08/15/17 Diazepam [Valium] 5 mg PO BID PRN 10 Days #29 tab 08/17/17 Gabapentin [Neurontin] 300 mg PO BIDCM 30 Days #60 08/17/17 HYDROmorphone tablet [Dilaudid] 2 mg PO 4X/DAY PRN PRN 7 Days #30 08/17/17 tab Linezolid [Zyvox] 600 mg PO BID 14 Days #28 tab 08/17/17 0.9 % Sodium Chloride [Saline 210 ml MC .QDAILY 30 Days #10 08/18/17 Wound Wash] bottle Gauze Bandage [Gauze Pads] 6 ea TP .QDAILY 30 Days #180 08/18/17 bandage Gauze Bandage [Rolled Gauze] 2 ea TP .QDAILY 30 Days #60 bandage 08/18/17 Gloves [Nitrile Exam Gloves] 1 pair MC .QDAILY 30 Days #2 box 08/18/17 Silver/Hydrocolloid Dressing 2 ea TP .QDAILY 30 Days #60 bandage 08/18/17 [Aquacel-Ag W-Hydrofiber Dress] Levofloxacin [Levaquin] 500 mg PO .QDAILY 14 Days #14 tab 10/17/17 fentaNYL patch [Duragesic patch] 25 mcg TRANSDERM. Q72H 15 Days #5 10/19/17 patch Oxycodone HCl/Acetaminophen 1 tab PO 4X/DAY PRN PRN 7 Days #30 11/18/17 [Percocet 5-325] tab oxycodone-acetaminophen 5 mg-325 See Label Instructions PO 4X/DAY 11/30/17 mg tablet PRN #40 tab Maternal Family History: No pertinent history Paternal Family History: No pertinent history Smoking Status: Never smoker Tobacco Use: Non-smoker Physical Exam Vital Signs Temp Pulse Resp BP 97.4 F L 70 16 138/89 H 12/05/17 12:43 12/05/17 12:43 12/05/17 12:43 12/05/17 12:43 General: Alert, Oriented x3, Cooperative, No apparent distress, Well developed, Well nourished HEENT: Atraumatic, PERRLA, EOMI, Normocephalic, TM's Clear Lungs: Normal air movement Psych/Mental Status: Normal Affect, Appropriate, Alert and oriented to time, place, person, mood and affect Assessment/Plan Hyperbaric oxygen therapy has been tolerated well, and will be continued as per the patient's medical plan.
--- NOTE | 2017-12-07 15:05 | NURSING ---
This nurse spoke with Geovany Anthony to change end date of service to 12/23/17 to complete her 40 pre approved tx, this was approved and changed. Also returned call to daughter Marine in regards to schedule for pt next week. Had to leave message.
[2017-12-08 13:05] VITALS: BP 118/76; BP 145/95; PULSE 53; PULSE 54; RESP 16; TEMP 35.9; TEMP 36.6
--- NOTE | 2017-12-08 13:49 | PCM.HBO.PN ---
History of Present Illness Date of Service: 12/08/17 Presenting Chief Complaint: Nonhealing ulcers bilateral legs s/p skin grafting with some compromise and new onset ulcers left posterior ankle and right posterior ankle. GEORGINA SKINNER is a 57 year old currently undergoing hyperbaric oxygen therapy for compromised skin grafts bilateral lower extremities. Progress: Hyperbaric oxygen therapy was administered today, and was well tolerated by the patient. Today's session represents the 32st such session of hyperbaric oxygen therapy. Tolerance of hyperbaric oxygen therapy: Hyperbaric oxygen therapy was administered as per the facility's protocol. The patient tolerated hyperbaric oxygen therapy well, without complaints or complications. The hyperbaric oxygen treatment was completed in its entirety. Upon emergence from the hyperbaric chamber, patient's vital signs were noted to be stable. She was discharged in good condition. Past Medical History Chronic Problems (Last Updated 10/07/17 @ 16:44 by Sari Hawk DO) Glioblastoma multiforme (Chronic) Allergies/Adverse Reactions: Allergies adhesive tape Adverse Reaction (Verified 06/24/17 09:09) VERY THIN STEROID SKIN WILL REMOVE SKIN IF ON TOO LONG Home Medications: Ambulatory Orders Medication Instructions Recorded Cholecalciferol (Vitamin D3) 5,000 unit PO DAILY 03/02/17 [Vitamin D3] Dexamethasone 3 mg PO DAILY 03/02/17 Famotidine [Pepcid] 20 mg PO BID 03/02/17 Multivitamin [Daily Multiple 1 each PO DAILY 03/02/17 Vitamin] Ondansetron [Zofran] 8 mg PO Q8H PRN PRN 03/02/17 Levetiracetam 750 mg PO BID 05/03/17 Lisinopril 1 tablet PO DAILY 05/03/17 Acetaminophen [Tylenol Tablet] 650 mg PO Q6H PRN PRN tablet 06/28/17 Calcium (Elemental) [Os-Guido 500] 500 mg PO DAILY 07/08/17 Lactobacillus Acidophilus 1 each PO DAILY 07/08/17 [Acidophilus Lactobacilli] Magnesium Hydroxide [Milk Of 30 ml PO DAILY PRN PRN 07/08/17 Magnesia] proMETHazine tablet [Phenergan 25 mg PO Q4H PRN PRN 07/08/17 tablet] Bisacodyl 10 mg RECTAL QHS PRN PRN #30 08/15/17 supp.rect Diazepam [Valium] 5 mg PO 4X/DAY PRN PRN #30 tab 08/15/17 HYDROmorphone tablet [Dilaudid] 2 - 4 mg PO 4X/DAY PRN PRN #50 tab 08/15/17 Nutritional Supplement [Rodger - 1 packet PO BIDCM #60 packet 08/15/17 ORANGE FLAVOR] Polyethylene Glycol 3350 [Miralax] 17 gm PO DAILY #30 packet 08/15/17 Potassium Chloride [K-Dur] 20 meq PO DAILYCM #30 tab 08/15/17 fentaNYL patch [Duragesic patch] 50 mcg TRANSDERM. Q3D@1000 #5 patch 08/15/17 Diazepam [Valium] 5 mg PO BID PRN 10 Days #29 tab 08/17/17 Gabapentin [Neurontin] 300 mg PO BIDCM 30 Days #60 08/17/17 HYDROmorphone tablet [Dilaudid] 2 mg PO 4X/DAY PRN PRN 7 Days #30 08/17/17 tab Linezolid [Zyvox] 600 mg PO BID 14 Days #28 tab 08/17/17 0.9 % Sodium Chloride [Saline 210 ml MC .QDAILY 30 Days #10 08/18/17 Wound Wash] bottle Gauze Bandage [Gauze Pads] 6 ea TP .QDAILY 30 Days #180 08/18/17 bandage Gauze Bandage [Rolled Gauze] 2 ea TP .QDAILY 30 Days #60 bandage 08/18/17 Gloves [Nitrile Exam Gloves] 1 pair MC .QDAILY 30 Days #2 box 08/18/17 Silver/Hydrocolloid Dressing 2 ea TP .QDAILY 30 Days #60 bandage 08/18/17 [Aquacel-Ag W-Hydrofiber Dress] Levofloxacin [Levaquin] 500 mg PO .QDAILY 14 Days #14 tab 10/17/17 fentaNYL patch [Duragesic patch] 25 mcg TRANSDERM. Q72H 15 Days #5 10/19/17 patch Oxycodone HCl/Acetaminophen 1 tab PO 4X/DAY PRN PRN 7 Days #30 11/18/17 [Percocet 5-325] tab oxycodone-acetaminophen 5 mg-325 See Label Instructions PO 4X/DAY 11/30/17 mg tablet PRN #40 tab Maternal Family History: No pertinent history Paternal Family History: No pertinent history Smoking Status: Never smoker Tobacco Use: Non-smoker Physical Exam Vital Signs Temp Pulse Resp BP 98 F 54 L 16 118/76 12/08/17 13:05 12/08/17 13:05 12/08/17 13:05 12/08/17 13:05 General: Alert, Oriented x3, Cooperative, No apparent distress HEENT: Atraumatic, PERRLA, Normocephalic, TM's Clear Lungs: Clear to auscultation, Normal air movement Cardiovascular: Regular rate, Regular Rhythm, Normal S1, Normal S2 Psych/Mental Status: Normal Affect, Appropriate, Alert and oriented to time, place, person, mood and affect Assessment/Plan Hyperbaric oxygen therapy has been tolerated well, and will be continued as per the patient's medical plan.
[2017-12-09 12:00] VITALS: BP 106/70; PULSE 57; RESP 18; TEMP 36.9
--- NOTE | 2017-12-09 13:20 | PCM.HBO.PN ---
History of Present Illness Date of Service: 12/09/17 Presenting Chief Complaint: Nonhealing ulcers bilateral legs s/p skin grafting with some compromise and new onset ulcers left posterior ankle and right posterior ankle. GEORGINA SKINNER is a 57 year old currently undergoing hyperbaric oxygen therapy for compromised skin grafts bilateral lower extremities. Progress: Hyperbaric oxygen therapy was administered today, and was well tolerated by the patient. Today's session represents the 33rd such session of hyperbaric oxygen therapy. Tolerance of hyperbaric oxygen therapy: Hyperbaric oxygen therapy was administered as per the facility's protocol. The patient tolerated hyperbaric oxygen therapy well, without complaints or complications. The hyperbaric oxygen treatment was completed in its entirety. Upon emergence from the hyperbaric chamber, patient's vital signs were noted to be stable. She was discharged in good condition. Past Medical History Chronic Problems (Last Updated 10/07/17 @ 16:44 by Sari Hawk DO) Glioblastoma multiforme (Chronic) Allergies/Adverse Reactions: Allergies adhesive tape Adverse Reaction (Verified 06/24/17 09:09) VERY THIN STEROID SKIN WILL REMOVE SKIN IF ON TOO LONG Home Medications: Ambulatory Orders Medication Instructions Recorded Cholecalciferol (Vitamin D3) 5,000 unit PO DAILY 03/02/17 [Vitamin D3] Dexamethasone 3 mg PO DAILY 03/02/17 Famotidine [Pepcid] 20 mg PO BID 03/02/17 Multivitamin [Daily Multiple 1 each PO DAILY 03/02/17 Vitamin] Ondansetron [Zofran] 8 mg PO Q8H PRN PRN 03/02/17 Levetiracetam 750 mg PO BID 05/03/17 Lisinopril 1 tablet PO DAILY 05/03/17 Acetaminophen [Tylenol Tablet] 650 mg PO Q6H PRN PRN tablet 06/28/17 Calcium (Elemental) [Os-Guido 500] 500 mg PO DAILY 07/08/17 Lactobacillus Acidophilus 1 each PO DAILY 07/08/17 [Acidophilus Lactobacilli] Magnesium Hydroxide [Milk Of 30 ml PO DAILY PRN PRN 07/08/17 Magnesia] proMETHazine tablet [Phenergan 25 mg PO Q4H PRN PRN 07/08/17 tablet] Bisacodyl 10 mg RECTAL QHS PRN PRN #30 08/15/17 supp.rect Diazepam [Valium] 5 mg PO 4X/DAY PRN PRN #30 tab 08/15/17 HYDROmorphone tablet [Dilaudid] 2 - 4 mg PO 4X/DAY PRN PRN #50 tab 08/15/17 Nutritional Supplement [Rodger - 1 packet PO BIDCM #60 packet 08/15/17 ORANGE FLAVOR] Polyethylene Glycol 3350 [Miralax] 17 gm PO DAILY #30 packet 08/15/17 Potassium Chloride [K-Dur] 20 meq PO DAILYCM #30 tab 08/15/17 fentaNYL patch [Duragesic patch] 50 mcg TRANSDERM. Q3D@1000 #5 patch 08/15/17 Diazepam [Valium] 5 mg PO BID PRN 10 Days #29 tab 08/17/17 Gabapentin [Neurontin] 300 mg PO BIDCM 30 Days #60 08/17/17 HYDROmorphone tablet [Dilaudid] 2 mg PO 4X/DAY PRN PRN 7 Days #30 08/17/17 tab Linezolid [Zyvox] 600 mg PO BID 14 Days #28 tab 08/17/17 0.9 % Sodium Chloride [Saline 210 ml MC .QDAILY 30 Days #10 08/18/17 Wound Wash] bottle Gauze Bandage [Gauze Pads] 6 ea TP .QDAILY 30 Days #180 08/18/17 bandage Gauze Bandage [Rolled Gauze] 2 ea TP .QDAILY 30 Days #60 bandage 08/18/17 Gloves [Nitrile Exam Gloves] 1 pair MC .QDAILY 30 Days #2 box 08/18/17 Silver/Hydrocolloid Dressing 2 ea TP .QDAILY 30 Days #60 bandage 08/18/17 [Aquacel-Ag W-Hydrofiber Dress] Levofloxacin [Levaquin] 500 mg PO .QDAILY 14 Days #14 tab 10/17/17 fentaNYL patch [Duragesic patch] 25 mcg TRANSDERM. Q72H 15 Days #5 10/19/17 patch Oxycodone HCl/Acetaminophen 1 tab PO 4X/DAY PRN PRN 7 Days #30 11/18/17 [Percocet 5-325] tab oxycodone-acetaminophen 5 mg-325 See Label Instructions PO 4X/DAY 11/30/17 mg tablet PRN #40 tab Maternal Family History: No pertinent history Paternal Family History: No pertinent history Smoking Status: Never smoker Tobacco Use: Non-smoker Physical Exam Vital Signs Temp Pulse Resp BP 98.5 F 57 L 18 106/70 12/09/17 12:00 12/09/17 12:00 12/09/17 12:00 12/09/17 12:00 Assessment/Plan Hyperbaric oxygen therapy has been tolerated well, and will be continued as per the patient's medical plan.
[2017-12-13 13:05] VITALS: BP 117/72; BP 119/80; PULSE 52; PULSE 58; RESP 16; TEMP 36.3; TEMP 36.6
[2017-12-13 15:27] VITALS: BP 119/80; PULSE 52; RESP 16; TEMP 36.3
--- NOTE | 2017-12-13 20:27 | PN.PCM_ITS ---
Type of Wound Date of Service: 12/13/17 Chief Complaint: Nonhealing ulcers bilateral legs s/p skin grafting with some compromise and nonhealing ulcer left posterior ankle. History of Wound: Surgery 08/02/17 - 1. Excisional debridement nonhealing ulcer left posterior leg with STSG reconstruction from lower anterior abdominal wall ( 9 cm2). 2. Excisional debridement nonhealing ulcer left lateral leg with STSG reconstruction from lower anterior abdominal wall (30.5 cm2). 3. Excisional debridement nonhealing ulcer left anterior lower leg with STSG reconstruction from lower anterior abdominal wall (27 cm2). 4. Excisional debridement nonhealing ulcer right lateral leg with STSG reconstruction from lower anterior abdominal wall (14.25 cm2). 5. Excisional debridement nonhealing ulcer right anterior superior leg with STSG reconstruction from lower anterior abdominal wall (7 cm2). 6. Excisional debridement nonhealing ulcer right lower leg/ medial ankle with STSG reconstruction from lower anterior abdominal wall (24.5 cm2). Wound care - Silver with Adaptic and Surepress for compression. Operative culture - Enterococcus faecium. She was treated with Vancomycin and was discharged on Zyvox and has finished them (Insurance would not approve any more). There was another wound culture on 10/13/17 which showed Enterobacter. She was placed on Levaquin and has finished them. Prealbumin from 07/30/17 was 22.5. She takes nutritional supplementation with protein to help the healing process. Today she denies fever. Her appetite is good. With her skin graft compromise, she would benefit from HBO treatments. We obtained an MRI prior to starting HBO to evaluate the status of the brain cancer. [facility] looked at it and stated the cancer was stable and not actively growing. So we started the HBO treatments. She is tolerating them thus far. Progress of Wound: Bilateral legs skin graft surgery 08/02/17 with some compromise and improvement in left posterior ankle ulcer, left anterior lower leg skin graft ulcer, and right anterior superior leg skin graft ulcer. - Physical Exam Vital Signs Temp Pulse Resp BP 97.4 F L 52 L 16 119/80 12/13/17 15:27 12/13/17 15:27 12/13/17 15:27 12/13/17 15:27 Wound Measurements and Assessment WC - Nurse 1 - General Ulcer Measurement Start: 05/01/18 13:05 Freq: Status: Active Protocol: Activity Type Activity Date Activity User E-Sign Co-Sign Detail Recorded Client Recorded Date Recorded By Document 12/13/17 15:27 DL [id number] 12/13/17 15:36 DL 12/13/17 15:27 Wound Center Nurse 1 [Ulcer Assessment] #12 L Achilles -Current Size (cm) - Length 1.8 -Current Size (cm) - Width 1.8 -Current Size (cm) - Depth 0.1 -Total Square Cm 3.24 -Photo Taken No -Exudate Amt Small (1-33%) -Exudate Type Serosanguineous -Wound Margin Thickened -Granulation Amt Large (67-100%) -Granulation Quality [place] -Necrosis Amt Small (1-33%) -Necrotic Tissue Type Adherent Slough -Structure Exposed N/A -Texture (Riddhi-wound Skin Appearance) Scarring -Moisture (Riddhi-wound Skin Appearance Dry/Scaly ) -Color (Riddhi-wound Skin Appearance) No Abnormality -Temperature (Riddhi-wound Skin No Abnormality Appearance) (Pt Warm) -Tenderness on Palpation (Riddhi-wound No Skin Appearance) -Ulcer Cleansing Wound Cleanser -Foul Odor after Cleansing No -Anesthetic Used 4% Lidocaine Solution #19 R Sup [place] -Current Size (cm) - Length 0.4 -Current Size (cm) - Width 0.4 -Current Size (cm) - Depth 0.1 -Total Square Cm 0.16 -Photo Taken No -Exudate Amt None Present (0 %) -Wound Margin Distinct, Outline Attached -Granulation Amt Small (1-33%) -Granulation Quality [place] -Necrosis Amt None Present (0 %) -Structure Exposed N/A -Texture (Riddhi-wound Skin Appearance) Scarring -Moisture (Riddhi-wound Skin Appearance No Abnormality ) -Color (Riddhi-wound Skin Appearance) No Abnormality -Temperature (Riddhi-wound Skin No Abnormality Appearance) (Pt Warm) -Ulcer Cleansing Wound Cleanser -Foul Odor after Cleansing No -Anesthetic Used 4% Lidocaine Solution #17 L Lower [place] -Current Size (cm) - Length 4.5 -Current Size (cm) - Width 3.4 -Current Size (cm) - Depth 0.2 -Total Square Cm 15.30 -Photo Taken No -Undermining/Tunneling Starts (O' 5 clock) -Undermining/Tunneling Ends (O'clock) 7 -Maximum Distance (cm) 1.5 -Circular Undermining No -Exudate Amt Medium (34-66%) -Exudate Type Serosanguineous -Wound Margin Distinct, Outline Attached -Granulation Amt Medium (34-66%) -Granulation Quality Pale [place] -Necrosis Amt Medium (34-66%) -Necrotic Tissue Type Adherent Slough -Structure Exposed N/A -Texture (Riddhi-wound Skin Appearance) Scarring -Moisture (Riddhi-wound Skin Appearance No Abnormality ) -Color (Riddhi-wound Skin Appearance) No Abnormality -Temperature (Riddhi-wound Skin No Abnormality Appearance) (Pt Warm) -Ulcer Cleansing Wound Cleanser -Foul Odor after Cleansing No -Anesthetic Used 4% Lidocaine Solution [Edema Assessment] -Right Calf (cm) 32.5 -Right Ankle (cm) 19 -Left Calf (cm) 32.6 -Left Ankle (cm) 20.6 WC - Nurse 2 - General Ulcer CM Notes Start: 11/15/17 13:05 Freq: Status: Active Protocol: Activity Type Activity Date Activity User E-Sign Co-Sign Detail Recorded Client Recorded Date Recorded By Document 12/13/17 16:02 [id number] 12/13/17 16:07 RANDY 12/13/17 16:02 Wound Center Nurse 2 [Procedure/Treatment] #12 L Achilles -Time 16:07 -Correct Patient Yes -Correct Side, Site, Position Yes -Correct Procedure Yes -Procedure Performed Yes -Type of Procedure Debridement -Clinical Debridement Subcutaneous -Post Debridement Size (cm) - Length 1.9 -Post Debridement Size (cm) - Width 1.9 -Post Debridement Size (cm) - Depth 0.1 -Total Square Cm 3.61 -Wound/Ulcer Outcome Not Healed -Ulcer Cleansing Rinsed/ Irrigated with Saline -Foul Odor after Cleansing No -Bioengineered Tissue No -Bleeding Controlled with Pressure -Treatment Response Procedure Tolerated Well #19 R Sup [place] -Time 16:06 -Correct Patient Yes -Correct Side, Site, Position Yes -Correct Procedure Yes -Procedure Performed Yes -Type of Procedure Debridement -Clinical Debridement Subcutaneous -Post Debridement Size (cm) - Length 0.5 -Post Debridement Size (cm) - Width 0.5 -Post Debridement Size (cm) - Depth 0.2 -Total Square Cm 0.25 -Wound/Ulcer Outcome Not Healed -Ulcer Cleansing Rinsed/ Irrigated with Saline -Foul Odor after Cleansing No -Bioengineered Tissue No -Bleeding Controlled with Pressure -Treatment Response Procedure Tolerated Well #17 L [place] -Time 16:02 -Correct Patient Yes -Correct Side, Site, Position Yes -Correct Procedure Yes -Procedure Performed Yes -Type of Procedure Debridement -Clinical Debridement Muscle -Post Debridement Size (cm) - Length 4.5 -Post Debridement Size (cm) - Width 3.5 -Post Debridement Size (cm) - Depth 0.3 -Total Square Cm 15.75 -Wound/Ulcer Outcome Not Healed -Ulcer Cleansing Rinsed/ Irrigated with Saline -Foul Odor after Cleansing No -Bioengineered Tissue No -Bleeding Controlled with Pressure -Treatment Response Procedure Tolerated Well [See Physician Procedure note for Specifics] Pain Scale: 0-10 Numeric [Pain] -Is Patient Pain Free? Yes Debridement Note Post-Debridement Measurements/Treatment WC - Nurse 2 - General Ulcer CM Notes Start: 11/15/17 13:05 Freq: Status: Active Protocol: Activity Type Activity Date Activity User E-Sign Co-Sign Detail Recorded Client Recorded Date Recorded By Document 11/21/17 12:49 [id number] 11/21/17 12:54 Document 12/13/17 16:02 [id number] 12/13/17 16:07 11/21/17 12/13/17 12:49 16:02 Wound Center Nurse 2 #13 R Achilles -Correct Patient No -Correct Side, Site, Position No -Correct Procedure No -Procedure Performed No -Post Debridement Size (cm) - Length 0 -Post Debridement Size (cm) - Width 0 -Post Debridement Size (cm) - Depth 0 -Total Square Cm 0 -Wound/Ulcer Outcome Healed- Epithelialized #12 L Achilles -Time 12:49 16:07 -Correct Patient Yes Yes -Correct Side, Site, Position Yes Yes -Correct Procedure Yes Yes -Procedure Performed Yes Yes -Type of Procedure Debridement Debridement -Clinical Debridement Subcutaneous Subcutaneous -Post Debridement Size (cm) - Length 2.5 1.9 -Post Debridement Size (cm) - Width 2.2 1.9 -Post Debridement Size (cm) - Depth 0.2 0.1 -Total Square Cm 5.50 3.61 -Wound/Ulcer Outcome Not Healed Not Healed -Ulcer Cleansing Rinsed/ Rinsed/ Irrigated with Irrigated with Saline Saline -Foul Odor after Cleansing No No -Bioengineered Tissue No No -Bleeding Controlled with Pressure Pressure -Treatment Response Procedure Procedure Tolerated Well Tolerated Well #19 R Sup [place] -Time 12:50 16:06 -Correct Patient Yes Yes -Correct Side, Site, Position Yes Yes -Correct Procedure Yes Yes -Procedure Performed Yes Yes -Type of Procedure Debridement Debridement -Clinical Debridement Subcutaneous Subcutaneous -Post Debridement Size (cm) - Length 0.8 0.5 -Post Debridement Size (cm) - Width 0.5 0.5 -Post Debridement Size (cm) - Depth 0.3 0.2 -Total Square Cm 0.40 0.25 -Wound/Ulcer Outcome Not Healed Not Healed -Ulcer Cleansing Rinsed/ Rinsed/ Irrigated with Irrigated with Saline Saline -Foul Odor after Cleansing No No -Bioengineered Tissue No No -Bleeding Controlled with Pressure Pressure -Treatment Response Procedure Procedure Tolerated Well Tolerated Well #18 R Lat Leg -Correct Patient No -Correct Side, Site, Position No -Correct Procedure No -Procedure Performed No -Post Debridement Size (cm) - Length 0 -Post Debridement Size (cm) - Width 0 -Post Debridement Size (cm) - Depth 0 -Total Square Cm 0 -Wound/Ulcer Outcome Healed- Epithelialized #17 L [place] -Time 12:51 16:02 -Correct Patient Yes Yes -Correct Side, Site, Position Yes Yes -Correct Procedure Yes Yes -Procedure Performed Yes Yes -Type of Procedure Debridement Debridement -Clinical Debridement Muscle Muscle -Post Debridement Size (cm) - Length 5 4.5 -Post Debridement Size (cm) - Width 4 3.5 -Post Debridement Size (cm) - Depth 0.7 0.3 -Total Square Cm 20 15.75 -Wound/Ulcer Outcome Not Healed Not Healed -Ulcer Cleansing Rinsed/ Rinsed/ Irrigated with Irrigated with Saline Saline -Foul Odor after Cleansing No No -Bioengineered Tissue No No -Bleeding Controlled with Pressure Pressure -Treatment Response Procedure Procedure Tolerated Well Tolerated Well #14 L Post Leg -Correct Patient No -Correct Side, Site, Position No -Correct Procedure No -Procedure Performed No -Post Debridement Size (cm) - Length 0 -Post Debridement Size (cm) - Width 0 -Post Debridement Size (cm) - Depth 0 -Total Square Cm 0 -Wound/Ulcer Outcome Healed- Epithelialized Pain Scale: 0-10 Numeric Is Patient Pain Free? Yes Yes Wound debrided: #12 Left posterior ankle. Laterality: Left Wound Grade/Stage: 2. Type of Debridement: Excisional debridement Anesthesia Used: 4% Lidocaine Solution Depth: Down to and including healthy tissue, in the subcutaneous layer Percentage of wound debrided: 100 Instrument Used: 3mm curette Tissue Removed: subcutaneous tissue. Severity: Fat Layer Exposed Amount of bleeding with debridement: Mild Bleeding Controlled with: Pressure Patient tolerated procedure well - Additional Wound Wound debrided: #17 Left anterior lower leg skin graft. Laterality: Left Wound Grade/Stage: 2. Type of Debridement: Excisional debridement Anesthesia Used: 4% Lidocaine Solution Depth: Down to and including healthy tissue, in the subcutaneous layer, to muscle Percentage of wound debrided: 100 Instrument Used: 5mm curette Tissue Removed: subcutaneous tissue and muscle. Severity: Fat Layer Exposed - muscle is exposed. Amount of bleeding with debridement: Mild Bleeding Controlled with: Pressure Patient tolerated procedure: Patient tolerated procedure well - Additional Wound Wound debrided: #19 Right anterior superior leg skin graft. Laterality: Right Wound Grade/Stage: 2. Type of Debridement: Excisional debridement Anesthesia Used: 4% Lidocaine Solution Depth: Down to and including healthy tissue, in the subcutaneous layer Percentage of wound debrided: 100 Instrument Used: 3mm curette Tissue Removed: subcutaneous tissue. Severity: Fat Layer Exposed Amount of bleeding with debridement: Mild Bleeding Controlled with: Pressure Patient tolerated procedure: Patient tolerated procedure well Assessment/Plan Active Problems (Last Updated 12/16/17 @ 17:12 by Sari Hawk DO) GERD (gastroesophageal reflux disease) (Chronic) Nausea (Chronic) Seizure disorder (Chronic) Hypertension (Chronic) Anxiety (Chronic) Chronic pain (Chronic) Neuropathic pain (Chronic) Assessment: 1. Nonhealing ulcer left anterior lower leg. 2. Nonhealing ulcer right anterior superior leg. 3. Brain tumor - receiving chemotherapy, on hold. 4. s/p excisional debridement nonhealing ulcer left posterior leg with STSG reconstruction from lower anterior abdominal wall (9 cm2) and excisional debridement nonhealing ulcer left lateral leg with STSG reconstruction from lower anterior abdominal wall (30.5 cm2) and excisional debridement nonhealing ulcer left anterior lower leg with STSG reconstruction from lower anterior abdominal wall (27 cm2) and excisional debridement nonhealing ulcer right lateral leg with STSG reconstruction from lower anterior abdominal wall (14.25 cm2) and excisional debridement nonhealing ulcer right anterior superior leg with STSG reconstruction from lower anterior abdominal wall (7 cm2) and excisional debridement nonhealing ulcer right lower leg/medial ankle with STSG reconstruction from lower anterior abdominal wall (24.5 cm2). 5. Early compromise to skin grafts bilateral leg ulcers with the biggest compromise to the left anterior lower leg graft. 6. Nonhealing ulcer left posterior ankle. Plan: Continue Silvercel daily to the ulcers with Surepress compression. The Silver is starting to dry out the ulcers. Will add Adaptic to the ulcers. It will also help the tendons from drying out as well. Her abdominal wall donor incision is healing satisfactory. 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 With her compromised skin grafts, she needs HBO treatments to help salvage the compromise. She has started HBO treatments and is tolerating them. Another wound culture was done on 10/13/17 which showed Enterobacter cloacae. She was started on Levaquin and finished them. Chemotherapy continues to be on hold because of the skin graft compromise. An MRI was done to evaluate the brain cancer before starting HBO, and according to [facility], the MRI was ok as the cancer has stabilized and is not actively growing at this time. She has started HBO treatments and is tolerating them thus far. Her Prealbumin from 07/30/17 was 22.5. She takes nutritional supplementation with protein to help the healing process. A lot of progress was noted today with healing of the compromised skin grafts. The right anterior superior leg skin graft wound is getting smaller and may be able to be closed at surgery with a localized skin flap. The left posterior ankle ulcer is healing and getting smaller with less exposure of the tendon. The left anterior lower leg skin graft ulcer is also getting smaller and the wound base is stabilizing and is the main one that will need a complete new skin graft. She would benefit from additional HBO treatments since it appears to be strengthening the skin graft ulcers with improved salvage. The goal is to minimize the need for additional surgery and if surgery is needed, it would be less extensive as a result of the HBO treatments. Tentatively will plan on operative debridement and skin grafting in December after the HBO is completed. Will plan on HBO postop as well. Renewed her Percocet for pain, one tab (30 tabs). Followup 2 weeks.
--- NOTE | 2017-12-13 20:43 | PCM.HBO.PN ---
History of Present Illness Date of Service: 12/13/17 Presenting Chief Complaint: Compromised skin grafts bilateral lower extremities. GEORGINA SKINNER is a 57 year old currently undergoing hyperbaric oxygen therapy for compromised skin grafts bilateral lower extremities. Progress: Hyperbaric oxygen therapy was administered today, and was well tolerated by the patient. Today represents the 34th such hyperbaric oxygen treatment. Tolerance of hyperbaric oxygen therapy: Hyperbaric oxygen therapy was administered as per the facility's protocol. The patient tolerated hyperbaric oxygen therapy well, without significant complications. The hyperbaric oxygen treatment was completed in its entirety. Upon emergence from the hyperbaric chamber, patient's vital signs were noted to be stable. She was discharged in good condition. 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 without evidence of necrosis (Chronic) GERD (gastroesophageal reflux disease) (Chronic) Nausea (Chronic) Seizure disorder (Chronic) Hypertension (Chronic) Anxiety (Chronic) Chronic pain (Chronic) Neuropathic pain (Chronic) Glioblastoma multiforme (Chronic) Ulcers of both lower legs (Chronic) multiple infected ulcers bilateral legs L97.919 Debility, unspecified (Chronic) Allergies/Adverse Reactions: Allergies adhesive tape Adverse Reaction (Verified 01/19/18 10:54) VERY THIN STEROID SKIN WILL REMOVE SKIN IF ON TOO LONG Home Medications: Ambulatory Orders Medication Instructions Recorded Cholecalciferol (Vitamin D3) 5,000 unit PO DAILY 03/02/17 [Vitamin D3] Dexamethasone 2.5 mg PO DAILY 03/02/17 Famotidine [Pepcid] 20 mg PO BID 03/02/17 Multivitamin [Daily Multiple 1 each PO DAILY 03/02/17 Vitamin] Ondansetron [Zofran] 8 mg PO Q8H PRN PRN 03/02/17 Levetiracetam 750 mg PO BID 05/03/17 Calcium (Elemental) [Os-Guido 500] 500 mg PO DAILY 07/08/17 Lactobacillus Acidophilus 1 each PO DAILY 07/08/17 [Acidophilus Lactobacilli] proMETHazine tablet [Phenergan 25 mg PO Q4H PRN PRN 07/08/17 tablet] Gabapentin [Neurontin] 300 mg PO BIDCM 30 Days #60 08/17/17 Acetaminophen [Tylenol Extra 1,000 mg PO DAILY 01/24/18 Strength] Sertraline HCl [Zoloft] 25 mg PO DAILY 01/24/18 Diazepam [Valium] 5 mg PO 4X/DAY PRN PRN #30 tab 01/31/18 Docusate Sodium [Colace] 100 mg PO BID 01/31/18 Nutritional Supplement [Rodger - 1 packet PO BIDCM 01/31/18 ORANGE FLAVOR] Ondansetron [Zofran] 4 mg IV Q6H PRN PRN vial 01/31/18 Oxycodone [Oxyir] 10 mg PO Q4H PRN PRN 7 Days #60 tab 01/31/18 Polyethylene Glycol 3350 [Miralax] 17 gm PO DAILY 01/31/18 Potassium Chloride [K-Dur] 20 meq PO DAILYCM 01/31/18 Vancomycin IV 750 mg IV Q12H 01/31/18 levoFLOXacin IV [Levaquin 500mg 500 mg IV Q24 01/31/18 IVPB] Maternal Family History: No pertinent history Paternal Family History: No pertinent history Smoking Status: Never smoker Tobacco Use: Non-smoker Physical Exam Vital Signs Temp Pulse Resp BP 97.4 F L 52 L 16 119/80 12/13/17 15:27 12/13/17 15:27 12/13/17 15:27 12/13/17 15:27 Assessment/Plan Active Problems (Last Updated 12/16/17 @ 17:12 by Sari Hawk DO) GERD (gastroesophageal reflux disease) (Chronic) Nausea (Chronic) Seizure disorder (Chronic) Hypertension (Chronic) Anxiety (Chronic) Chronic pain (Chronic) Neuropathic pain (Chronic)
[2017-12-14 13:31] VITALS: BP 109/77; BP 135/80; PULSE 54; PULSE 59; RESP 16; TEMP 36.4; TEMP 36.7
--- NOTE | 2017-12-14 23:30 | PCM.HBO.PN ---
History of Present Illness Date of Service: 12/14/17 Presenting Chief Complaint: Compromised skin grafts bilateral lower extremities. GEORGINA SKINNER is a 57 year old currently undergoing hyperbaric oxygen therapy for compromised skin grafts bilateral lower extremities. Progress: Hyperbaric oxygen therapy was administered today, and was well tolerated by the patient. Today represents the 35th such hyperbaric oxygen treatment. Tolerance of hyperbaric oxygen therapy: Hyperbaric oxygen therapy was administered as per the facility's protocol. The patient tolerated hyperbaric oxygen therapy well, without significant complications. The hyperbaric oxygen treatment was completed in its entirety. Upon emergence from the hyperbaric chamber, patient's vital signs were noted to be stable. She was discharged in good condition. 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 without evidence of necrosis (Chronic) GERD (gastroesophageal reflux disease) (Chronic) Nausea (Chronic) Seizure disorder (Chronic) Hypertension (Chronic) Anxiety (Chronic) Chronic pain (Chronic) Neuropathic pain (Chronic) Glioblastoma multiforme (Chronic) Ulcers of both lower legs (Chronic) multiple infected ulcers bilateral legs L97.919 Debility, unspecified (Chronic) Allergies/Adverse Reactions: Allergies adhesive tape Adverse Reaction (Verified 01/19/18 10:54) VERY THIN STEROID SKIN WILL REMOVE SKIN IF ON TOO LONG Home Medications: Ambulatory Orders Medication Instructions Recorded Cholecalciferol (Vitamin D3) 5,000 unit PO DAILY 03/02/17 [Vitamin D3] Dexamethasone 2.5 mg PO DAILY 03/02/17 Famotidine [Pepcid] 20 mg PO BID 03/02/17 Multivitamin [Daily Multiple 1 each PO DAILY 03/02/17 Vitamin] Ondansetron [Zofran] 8 mg PO Q8H PRN PRN 03/02/17 Levetiracetam 750 mg PO BID 05/03/17 Calcium (Elemental) [Os-Guido 500] 500 mg PO DAILY 07/08/17 Lactobacillus Acidophilus 1 each PO DAILY 07/08/17 [Acidophilus Lactobacilli] proMETHazine tablet [Phenergan 25 mg PO Q4H PRN PRN 07/08/17 tablet] Gabapentin [Neurontin] 300 mg PO BIDCM 30 Days #60 08/17/17 Acetaminophen [Tylenol Extra 1,000 mg PO DAILY 01/24/18 Strength] Sertraline HCl [Zoloft] 25 mg PO DAILY 01/24/18 Diazepam [Valium] 5 mg PO 4X/DAY PRN PRN #30 tab 01/31/18 Docusate Sodium [Colace] 100 mg PO BID 01/31/18 Nutritional Supplement [Rodger - 1 packet PO BIDCM 01/31/18 ORANGE FLAVOR] Ondansetron [Zofran] 4 mg IV Q6H PRN PRN vial 01/31/18 Oxycodone [Oxyir] 10 mg PO Q4H PRN PRN 7 Days #60 tab 01/31/18 Polyethylene Glycol 3350 [Miralax] 17 gm PO DAILY 01/31/18 Potassium Chloride [K-Dur] 20 meq PO DAILYCM 01/31/18 Vancomycin IV 750 mg IV Q12H 01/31/18 levoFLOXacin IV [Levaquin 500mg 500 mg IV Q24 01/31/18 IVPB] Maternal Family History: No pertinent history Paternal Family History: No pertinent history Smoking Status: Never smoker Tobacco Use: Non-smoker Physical Exam Vital Signs Temp Pulse Resp BP 98.1 F 59 L 16 109/77 12/14/17 13:31 12/14/17 13:31 12/14/17 13:31 12/14/17 13:31 Assessment/Plan Active Problems (Last Updated 12/16/17 @ 17:12 by Sari Hawk DO) GERD (gastroesophageal reflux disease) (Chronic) Nausea (Chronic) Seizure disorder (Chronic) Hypertension (Chronic) Anxiety (Chronic) Chronic pain (Chronic) Neuropathic pain (Chronic)
[2017-12-15 11:30] VITALS: BP 104/76; PULSE 62; RESP 16
--- NOTE | 2017-12-15 18:38 | PCM.HBO.PN ---
History of Present Illness Date of Service: 12/15/17 Presenting Chief Complaint: Nonhealing ulcers bilateral legs s/p skin grafting with some compromise and new onset ulcers left posterior ankle and right posterior ankle. GEORGINA SKINNER is a 57 year old currently undergoing hyperbaric oxygen therapy for compromised skin grafts bilateral lower extremities. Progress: Hyperbaric oxygen therapy was administered today, and was well tolerated by the patient. Tolerance of hyperbaric oxygen therapy: Hyperbaric oxygen therapy was administered as per the facility's protocol. The patient tolerated hyperbaric oxygen therapy well, without complaints or complications. The hyperbaric oxygen treatment was completed in its entirety. Upon emergence from the hyperbaric chamber, patient's vital signs were noted to be stable. She was discharged in good condition. Past Medical History Chronic Problems (Last Updated 10/07/17 @ 16:44 by Sari Hawk DO) Glioblastoma multiforme (Chronic) Allergies/Adverse Reactions: Allergies adhesive tape Adverse Reaction (Verified 06/24/17 09:09) VERY THIN STEROID SKIN WILL REMOVE SKIN IF ON TOO LONG Home Medications: Ambulatory Orders Medication Instructions Recorded Cholecalciferol (Vitamin D3) 5,000 unit PO DAILY 03/02/17 [Vitamin D3] Dexamethasone 3 mg PO DAILY 03/02/17 Famotidine [Pepcid] 20 mg PO BID 03/02/17 Multivitamin [Daily Multiple 1 each PO DAILY 03/02/17 Vitamin] Ondansetron [Zofran] 8 mg PO Q8H PRN PRN 03/02/17 Levetiracetam 750 mg PO BID 05/03/17 Lisinopril 1 tablet PO DAILY 05/03/17 Acetaminophen [Tylenol Tablet] 650 mg PO Q6H PRN PRN tablet 06/28/17 Calcium (Elemental) [Os-Guido 500] 500 mg PO DAILY 07/08/17 Lactobacillus Acidophilus 1 each PO DAILY 07/08/17 [Acidophilus Lactobacilli] Magnesium Hydroxide [Milk Of 30 ml PO DAILY PRN PRN 07/08/17 Magnesia] proMETHazine tablet [Phenergan 25 mg PO Q4H PRN PRN 07/08/17 tablet] Bisacodyl 10 mg RECTAL QHS PRN PRN #30 08/15/17 supp.rect Diazepam [Valium] 5 mg PO 4X/DAY PRN PRN #30 tab 08/15/17 HYDROmorphone tablet [Dilaudid] 2 - 4 mg PO 4X/DAY PRN PRN #50 tab 08/15/17 Nutritional Supplement [Rodger - 1 packet PO BIDCM #60 packet 08/15/17 ORANGE FLAVOR] Polyethylene Glycol 3350 [Miralax] 17 gm PO DAILY #30 packet 08/15/17 Potassium Chloride [K-Dur] 20 meq PO DAILYCM #30 tab 08/15/17 fentaNYL patch [Duragesic patch] 50 mcg TRANSDERM. Q3D@1000 #5 patch 08/15/17 Diazepam [Valium] 5 mg PO BID PRN 10 Days #29 tab 08/17/17 Gabapentin [Neurontin] 300 mg PO BIDCM 30 Days #60 08/17/17 HYDROmorphone tablet [Dilaudid] 2 mg PO 4X/DAY PRN PRN 7 Days #30 08/17/17 tab Linezolid [Zyvox] 600 mg PO BID 14 Days #28 tab 08/17/17 0.9 % Sodium Chloride [Saline 210 ml MC .QDAILY 30 Days #10 08/18/17 Wound Wash] bottle Gauze Bandage [Gauze Pads] 6 ea TP .QDAILY 30 Days #180 08/18/17 bandage Gauze Bandage [Rolled Gauze] 2 ea TP .QDAILY 30 Days #60 bandage 08/18/17 Gloves [Nitrile Exam Gloves] 1 pair MC .QDAILY 30 Days #2 box 08/18/17 Silver/Hydrocolloid Dressing 2 ea TP .QDAILY 30 Days #60 bandage 08/18/17 [Aquacel-Ag W-Hydrofiber Dress] Levofloxacin [Levaquin] 500 mg PO .QDAILY 14 Days #14 tab 10/17/17 fentaNYL patch [Duragesic patch] 25 mcg TRANSDERM. Q72H 15 Days #5 10/19/17 patch Oxycodone HCl/Acetaminophen 1 tab PO 4X/DAY PRN PRN 7 Days #30 11/18/17 [Percocet 5-325] tab Maternal Family History: No pertinent history Paternal Family History: No pertinent history Smoking Status: Never smoker Tobacco Use: Non-smoker Physical Exam Vital Signs Temp Pulse Resp BP 98.1 F 62 16 104/76 12/14/17 13:31 12/15/17 11:30 12/15/17 11:30 12/15/17 11:30 General: Alert, Cooperative, No apparent distress HEENT: Atraumatic, Normocephalic Lungs: Normal air movement Cardiovascular: Regular rate Psych/Mental Status: Normal Affect Assessment/Plan Hyperbaric oxygen therapy has been tolerated well, and will be continued as per the patient's medical plan.
== END 2017-12-15 23:59 ==
LOC: WC 13:00
PROVIDERS: Family Provider Student in an Organized Health Care Education/Training Program; PCP Student in an Organized Health Care Education/Training Program; Visit Provider Surgery
DX: L97.329 Non-pressure chronic ulcer of left ankle with unspecified severity (principal); L97.319 Non-pressure chronic ulcer of right ankle with unspecified severity; C71.9 Malignant neoplasm of brain, unspecified
CPT/HCPCS: 11042; 11043; 11045; 99183; G0277

== ENCOUNTER 2017-12-16 07:41 | Outpatient (RCR) | payer BC, SELFPAY ==
[2017-12-16 00:39] VITALS: BP 104/76; PULSE 62; RESP 16; TEMP 36.4
[2017-12-16 12:45] VITALS: BP 114/76; BP 129/82; PULSE 51; PULSE 60; RESP 16; TEMP 35.8; TEMP 36.3
--- NOTE | 2017-12-16 17:15 | HBO.PN.PCM_ITS ---
History of Present Illness Date of Service: 12/16/17 Presenting Chief Complaint: Nonhealing ulcers bilateral legs s/p skin grafting with some compromise and new onset ulcers left posterior ankle and right posterior ankle. GEORGINA SKINNER is a 57 year old currently undergoing hyperbaric oxygen therapy for compromised skin grafts of the lower extremities b/l. Progress: Hyperbaric oxygen therapy was administered today, and was well tolerated by the patient. Today represents the such hyperbaric oxygen treatment. Tolerance of hyperbaric oxygen therapy: Hyperbaric oxygen treatment was administered as per the facility's protocol. The patient tolerated hyperbaric oxygen therapy well, without complications. The hyperbaric oxygen treatment was completed in its entirety. Upon emergence from the hyperbaric chamber, patient' s vital signs were noted to be stable and they were discharged in good condition. Past Medical History Chronic Problems (Last Updated 10/07/17 @ 16:44 by Sari Hawk DO) Glioblastoma multiforme (Chronic) Allergies/Adverse Reactions: Allergies adhesive tape Adverse Reaction (Verified 06/24/17 09:09) VERY THIN STEROID SKIN WILL REMOVE SKIN IF ON TOO LONG Home Medications: Ambulatory Orders Medication Instructions Recorded Cholecalciferol (Vitamin D3) 5,000 unit PO DAILY 03/02/17 [Vitamin D3] Dexamethasone 3 mg PO DAILY 03/02/17 Famotidine [Pepcid] 20 mg PO BID 03/02/17 Multivitamin [Daily Multiple 1 each PO DAILY 03/02/17 Vitamin] Ondansetron [Zofran] 8 mg PO Q8H PRN PRN 03/02/17 Levetiracetam 750 mg PO BID 05/03/17 Lisinopril 1 tablet PO DAILY 05/03/17 Acetaminophen [Tylenol Tablet] 650 mg PO Q6H PRN PRN tablet 06/28/17 Calcium (Elemental) [Os-Guido 500] 500 mg PO DAILY 07/08/17 Lactobacillus Acidophilus 1 each PO DAILY 07/08/17 [Acidophilus Lactobacilli] Magnesium Hydroxide [Milk Of 30 ml PO DAILY PRN PRN 07/08/17 Magnesia] proMETHazine tablet [Phenergan 25 mg PO Q4H PRN PRN 07/08/17 tablet] Bisacodyl 10 mg RECTAL QHS PRN PRN #30 08/15/17 supp.rect Diazepam [Valium] 5 mg PO 4X/DAY PRN PRN #30 tab 08/15/17 HYDROmorphone tablet [Dilaudid] 2 - 4 mg PO 4X/DAY PRN PRN #50 tab 08/15/17 Nutritional Supplement [Rodger - 1 packet PO BIDCM #60 packet 08/15/17 ORANGE FLAVOR] Polyethylene Glycol 3350 [Miralax] 17 gm PO DAILY #30 packet 08/15/17 Potassium Chloride [K-Dur] 20 meq PO DAILYCM #30 tab 08/15/17 fentaNYL patch [Duragesic patch] 50 mcg TRANSDERM. Q3D@1000 #5 patch 08/15/17 Diazepam [Valium] 5 mg PO BID PRN 10 Days #29 tab 08/17/17 Gabapentin [Neurontin] 300 mg PO BIDCM 30 Days #60 08/17/17 HYDROmorphone tablet [Dilaudid] 2 mg PO 4X/DAY PRN PRN 7 Days #30 08/17/17 tab Linezolid [Zyvox] 600 mg PO BID 14 Days #28 tab 08/17/17 0.9 % Sodium Chloride [Saline 210 ml MC .QDAILY 30 Days #10 08/18/17 Wound Wash] bottle Gauze Bandage [Gauze Pads] 6 ea TP .QDAILY 30 Days #180 08/18/17 bandage Gauze Bandage [Rolled Gauze] 2 ea TP .QDAILY 30 Days #60 bandage 08/18/17 Gloves [Nitrile Exam Gloves] 1 pair MC .QDAILY 30 Days #2 box 08/18/17 Silver/Hydrocolloid Dressing 2 ea TP .QDAILY 30 Days #60 bandage 08/18/17 [Aquacel-Ag W-Hydrofiber Dress] Levofloxacin [Levaquin] 500 mg PO .QDAILY 14 Days #14 tab 10/17/17 fentaNYL patch [Duragesic patch] 25 mcg TRANSDERM. Q72H 15 Days #5 10/19/17 patch Oxycodone HCl/Acetaminophen 1 tab PO 4X/DAY PRN PRN 7 Days #30 11/18/17 [Percocet 5-325] tab Maternal Family History: No pertinent history Paternal Family History: No pertinent history Smoking Status: Never smoker Tobacco Use: Non-smoker Physical Exam Vital Signs Temp Pulse Resp BP 97.3 F L 60 16 129/82 H 12/16/17 12:45 12/16/17 12:45 12/16/17 12:45 12/16/17 12:45 General: Alert, Oriented x3, Cooperative, No apparent distress Psych/Mental Status: Normal Affect, Appropriate Assessment/Plan Active Problems (Last Updated 10/07/17 @ 16:44 by Sari Hawk DO) Other complications of skin graft (allograft) (autograft) (Acute) Failed skin graft (Acute) Complication of skin graft (Acute) Ulcers of both lower legs (Acute) multiple infected ulcers bilateral legs L97.919 Wound, open, lower limb with complication (Acute) The patient appears to be tolerating hyperbaric oxygen treatment well, which will be continued as per the patient's comprehensive medical treatment plan.
== END 2018-01-14 23:59 ==
LOC: WC 07:41
PROVIDERS: Family Provider Student in an Organized Health Care Education/Training Program; PCP Student in an Organized Health Care Education/Training Program; Visit Provider Surgery
DX: T86.821 Skin graft (allograft) (autograft) failure (principal); Y83.8 Other surgical procedures as the cause of abnormal reaction of the patient, or of later complication, without mention of misadventure at the time of the procedure; C71.9 Malignant neoplasm of brain, unspecified; Z79.899 Other long term (current) drug therapy; L97.919 Non-pressure chronic ulcer of unspecified part of right lower leg with unspecified severity
CPT/HCPCS: 11042; 11043; 87070; 87075; 87077; 87186; 87205; 99183; G0277

== ENCOUNTER 2018-01-16 10:56 | Outpatient (RCR) | payer BC, SELFPAY ==
[2018-01-15 00:36] VITALS: BP 114/76; PULSE 51; RESP 16; TEMP 35.8
[2018-01-16 12:40] VITALS: BP 125/88; PULSE 54; RESP 16; TEMP 36.4
--- NOTE | 2018-01-16 23:44 | PN.PCM_ITS ---
Type of Wound Date of Service: 01/16/18 Chief Complaint: Nonhealing ulcers bilateral legs s/p skin grafting with some compromise and nonhealing ulcer left posterior ankle. History of Wound: Surgery 08/02/17 - 1. Excisional debridement nonhealing ulcer left posterior leg with STSG reconstruction from lower anterior abdominal wall ( 9 cm2). 2. Excisional debridement nonhealing ulcer left lateral leg with STSG reconstruction from lower anterior abdominal wall (30.5 cm2). 3. Excisional debridement nonhealing ulcer left anterior lower leg with STSG reconstruction from lower anterior abdominal wall (27 cm2). 4. Excisional debridement nonhealing ulcer right lateral leg with STSG reconstruction from lower anterior abdominal wall (14.25 cm2). 5. Excisional debridement nonhealing ulcer right anterior superior leg with STSG reconstruction from lower anterior abdominal wall (7 cm2). 6. Excisional debridement nonhealing ulcer right lower leg/ medial ankle with STSG reconstruction from lower anterior abdominal wall (24.5 cm2). Wound care - Silver with Adaptic and Surepress for compression. Operative culture - Enterococcus faecium. She was treated with Vancomycin and was discharged on Zyvox and has finished them (Insurance would not approve any more). There was another wound culture on 10/13/17 which showed Enterobacter. She was placed on Levaquin and has finished them. Prealbumin from 07/30/17 was 22.5. She takes nutritional supplementation with protein to help the healing process. Today she denies fever. Her appetite is good. With her skin graft compromise, she would benefit from HBO treatments. We obtained an MRI prior to starting HBO to evaluate the status of the brain cancer. [facility] looked at it and stated the cancer was stable and not actively growing. So we started the HBO treatments. She is tolerating them thus far. Progress of Wound: Bilateral legs skin graft surgery 08/02/17 with some compromise and improvement in left posterior ankle ulcer and left anterior lower leg skin graft ulcer. The right anterior superior leg skin graft ulcer has healed. - Physical Exam Vital Signs Temp Pulse Resp BP 97.5 F L 54 L 16 125/88 H 01/16/18 12:40 01/16/18 12:40 01/16/18 12:40 01/16/18 12:40 Wound Measurements and Assessment WC - Nurse 1 - General Ulcer Measurement Start: 01/16/18 12:40 Freq: Status: Active Protocol: Activity Type Activity Date Activity User E-Sign Co-Sign Detail Recorded Client Recorded Date Recorded By Document 01/16/18 12:40 [id number] 01/16/18 12:45 01/16/18 12:40 Wound Center Nurse 1 [Ulcer Assessment] #12 L Achilles -Combined with other wound No -Current Size (cm) - Length 1.8 -Current Size (cm) - Width 1.9 -Current Size (cm) - Depth 0.3 -Total Square Cm 3.42 -Photo Taken No -Epithelialization None Present -Tunneling No -Undermining/Tunneling Yes -Undermining/Tunneling Starts (O' 8 clock) -Undermining/Tunneling Ends (O'clock) 10 -Circular Undermining Yes -Exudate Amt Small (1-33%) -Exudate Type Serosanguineous -Wound Margin Distinct, Outline Attached -Granulation Amt Small (1-33%) -Granulation Quality [place] -Slough/Fibrin No -Necrosis Amt None Present (0 %) -Necrotic Tissue Type Adherent Slough -Texture (Riddhi-wound Skin Appearance) Assessed -Moisture (Riddhi-wound Skin Appearance Assessed ) -Color (Riddhi-wound Skin Appearance) Assessed -Temperature (Riddhi-wound Skin No Abnormality Appearance) (Pt Warm) -Tenderness on Palpation (Riddhi-wound Yes Skin Appearance) -Ulcer Cleansing Rinsed/ Irrigated with Saline -Foul Odor after Cleansing No -Anesthetic Used 4% Lidocaine Solution #19 R Sup [place] -Tunneling No #17 L [place] -Combined with other wound No -Current Size (cm) - Length 3.6 -Current Size (cm) - Width 2.0 -Current Size (cm) - Depth 0.4 -Total Square Cm 7.20 -Photo Taken No -Epithelialization None Present -Tunneling No -Undermining/Tunneling Yes -Undermining/Tunneling Starts (O' 11 clock) -Undermining/Tunneling Ends (O'clock) 12 -Exudate Amt Small (1-33%) -Exudate Type Serosanguineous -Wound Margin Distinct, Outline Attached -Granulation Amt Small (1-33%) -Granulation Quality [place] -Slough/Fibrin Yes -Necrosis Amt None Present (0 %) -Texture (Riddhi-wound Skin Appearance) Assessed -Moisture (Riddhi-wound Skin Appearance Assessed ) -Color (Riddhi-wound Skin Appearance) Assessed -Temperature (Riddhi-wound Skin No Abnormality Appearance) (Pt Warm) -Tenderness on Palpation (Riddhi-wound Yes Skin Appearance) -Ulcer Cleansing Rinsed/ Irrigated with Saline -Foul Odor after Cleansing No -Anesthetic Used 4% Lidocaine Solution [Edema Assessment] -Lower Limb Edema Present Yes -Right Calf (cm) 34 -Right Ankle (cm) 21.7 -Left Calf (cm) 29.5 -Left Ankle (cm) 22.5 WC - Nurse 2 - General Ulcer CM Notes Start: 01/16/18 12:40 Freq: Status: Active Protocol: Activity Type Activity Date Activity User E-Sign Co-Sign Detail Recorded Client Recorded Date Recorded By Document 01/16/18 13:59 [id number] 01/16/18 14:00 01/16/18 13:59 Wound Center Nurse 2 [Procedure/Treatment] #12 L Achilles -Time 13:59 -Correct Patient Yes -Correct Side, Site, Position Yes -Correct Procedure Yes -Procedure Performed Yes -Type of Procedure Debridement -Clinical Debridement Subcutaneous -Post Debridement Size (cm) - Length 1.9 -Post Debridement Size (cm) - Width 1.9 -Post Debridement Size (cm) - Depth 0.3 -Total Square Cm 3.61 -Wound/Ulcer Outcome Not Healed -Ulcer Cleansing Rinsed/ Irrigated with Saline -Foul Odor after Cleansing No -Bioengineered Tissue No -Bleeding Controlled with Pressure -Treatment Response Procedure Tolerated Well #17 L [place] -Time 13:59 -Correct Patient Yes -Correct Side, Site, Position Yes -Correct Procedure Yes -Procedure Performed Yes -Type of Procedure Debridement -Clinical Debridement Muscle -Post Debridement Size (cm) - Length 3.7 -Post Debridement Size (cm) - Width 2.1 -Post Debridement Size (cm) - Depth 0.4 -Total Square Cm 7.77 -Wound/Ulcer Outcome Not Healed -Ulcer Cleansing Rinsed/ Irrigated with Saline -Foul Odor after Cleansing No -Bioengineered Tissue No -Bleeding Controlled with Pressure -Treatment Response Procedure Tolerated Well [See Physician Procedure note for Specifics] Pain Scale: 0-10 Numeric [Pain] -Is Patient Pain Free? Yes Debridement Note Post-Debridement Measurements/Treatment PONCHO - Nurse 2 - General Ulcer CM Notes Start: 01/16/18 12:40 Freq: Status: Active Protocol: Activity Type Activity Date Activity User E-Sign Co-Sign Detail Recorded Client Recorded Date Recorded By Document 01/16/18 13:59 [id number] 01/16/18 14:00 01/16/18 13:59 Wound Center Nurse 2 #12 L Achilles -Time 13:59 -Correct Patient Yes -Correct Side, Site, Position Yes -Correct Procedure Yes -Procedure Performed Yes -Type of Procedure Debridement -Clinical Debridement Subcutaneous -Post Debridement Size (cm) - Length 1.9 -Post Debridement Size (cm) - Width 1.9 -Post Debridement Size (cm) - Depth 0.3 -Total Square Cm 3.61 -Wound/Ulcer Outcome Not Healed -Ulcer Cleansing Rinsed/ Irrigated with Saline -Foul Odor after Cleansing No -Bioengineered Tissue No -Bleeding Controlled with Pressure -Treatment Response Procedure Tolerated Well #17 L [place] -Time 13:59 -Correct Patient Yes -Correct Side, Site, Position Yes -Correct Procedure Yes -Procedure Performed Yes -Type of Procedure Debridement -Clinical Debridement Muscle -Post Debridement Size (cm) - Length 3.7 -Post Debridement Size (cm) - Width 2.1 -Post Debridement Size (cm) - Depth 0.4 -Total Square Cm 7.77 -Wound/Ulcer Outcome Not Healed -Ulcer Cleansing Rinsed/ Irrigated with Saline -Foul Odor after Cleansing No -Bioengineered Tissue No -Bleeding Controlled with Pressure -Treatment Response Procedure Tolerated Well Pain Scale: 0-10 Numeric Is Patient Pain Free? Yes Wound debrided: #12 Left posterior ankle. Laterality: Left Wound Grade/Stage: 2. Type of Debridement: Excisional debridement Anesthesia Used: 4% Lidocaine Solution Depth: Down to and including healthy tissue, in the subcutaneous layer Percentage of wound debrided: 100 Instrument Used: 3mm curette Tissue Removed: subcutaneous tissue. Severity: Fat Layer Exposed Amount of bleeding with debridement: Mild Bleeding Controlled with: Pressure Patient tolerated procedure well - Additional Wound Wound debrided: #17 Left anterior lower leg skin graft. Laterality: Left Wound Grade/Stage: 2. Type of Debridement: Excisional debridement Anesthesia Used: 4% Lidocaine Solution Depth: Down to and including healthy tissue, in the subcutaneous layer, to muscle Percentage of wound debrided: 100 Instrument Used: 5mm curette Tissue Removed: subcutaneous tissue and muscle. Severity: Fat Layer Exposed - muscle is exposed. Amount of bleeding with debridement: Mild Bleeding Controlled with: Pressure Patient tolerated procedure: Patient tolerated procedure well - Additional Wound Wound debrided: #19 Right anterior superior leg skin graft. Laterality: Right Wound Grade/Stage: 2. Patient tolerated procedure: - - No debridement was done today as the ulcer has healed. Assessment/Plan Active Problems (Last Updated 12/16/17 @ 17:12 by Sari Hawk DO) GERD (gastroesophageal reflux disease) (Chronic) Nausea (Chronic) Seizure disorder (Chronic) Hypertension (Chronic) Anxiety (Chronic) Chronic pain (Chronic) Neuropathic pain (Chronic) Assessment: 1. Nonhealing ulcer left anterior lower leg. 2. Ulcer right anterior superior leg, healed. 3. Brain tumor - receiving chemotherapy, on hold. 4. s/p excisional debridement nonhealing ulcer left posterior leg with STSG reconstruction from lower anterior abdominal wall (9 cm2) and excisional debridement nonhealing ulcer left lateral leg with STSG reconstruction from lower anterior abdominal wall (30.5 cm2) and excisional debridement nonhealing ulcer left anterior lower leg with STSG reconstruction from lower anterior abdominal wall (27 cm2) and excisional debridement nonhealing ulcer right lateral leg with STSG reconstruction from lower anterior abdominal wall (14.25 cm2) and excisional debridement nonhealing ulcer right anterior superior leg with STSG reconstruction from lower anterior abdominal wall (7 cm2) and excisional debridement nonhealing ulcer right lower leg/medial ankle with STSG reconstruction from lower anterior abdominal wall (24.5 cm2). 5. Early compromise to skin grafts bilateral leg ulcers with the biggest compromise to the left anterior lower leg graft. 6. Nonhealing ulcer left posterior ankle. Plan: Continue Silvercel daily to the ulcers with Surepress compression. The Silver is starting to dry out the ulcers. Will add Adaptic to the ulcers. It will also help the tendons from drying out as well. Her abdominal wall donor incision is healing satisfactory. 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 With her compromised skin grafts, she needs HBO treatments to help salvage the compromise. She has started HBO treatments and is tolerating them. Another wound culture was done on 10/13/17 which showed Enterobacter cloacae. She was started on Levaquin and finished them. Chemotherapy continues to be on hold because of the skin graft compromise. An MRI was done to evaluate the brain cancer before starting HBO, and according to [facility], the MRI was ok as the cancer has stabilized and is not actively growing at this time. She has started HBO treatments and is tolerating them thus far. Her Prealbumin from 07/30/17 was 22.5. She takes nutritional supplementation with protein to help the healing process. A lot of progress was noted today with healing of the compromised skin grafts. The right anterior superior leg skin graft wound is getting smaller and may be able to be closed at surgery with a localized skin flap. The left posterior ankle ulcer is healing and getting smaller with less exposure of the tendon. The left anterior lower leg skin graft ulcer is also getting smaller and the wound base is stabilizing and is the main one that will need a complete new skin graft. She would benefit from additional HBO treatments since it appears to be strengthening the skin graft ulcers with improved salvage. The goal is to minimize the need for additional surgery and if surgery is needed, it would be less extensive as a result of the HBO treatments. The operative debridement and skin grafting is scheduled for next week, 01/24/18. Will plan on HBO postop as well. Renewed her Percocet for pain, one tab (30 tabs). Followup 2 weeks.
== END 2018-02-14 23:59 ==
LOC: WC 10:56
PROVIDERS: Family Provider Student in an Organized Health Care Education/Training Program; PCP Student in an Organized Health Care Education/Training Program; Visit Provider Surgery
DX: T86.828 Other complications of skin graft (allograft) (autograft) (principal); Y83.2 Surgical operation with anastomosis, bypass or graft as the cause of abnormal reaction of the patient, or of later complication, without mention of misadventure at the time of the procedure; C71.9 Malignant neoplasm of brain, unspecified; K21.9 Gastro-esophageal reflux disease without esophagitis; I10 Essential (primary) hypertension; L97.322 Non-pressure chronic ulcer of left ankle with fat layer exposed; L97.825 Non-pressure chronic ulcer of other part of left lower leg with muscle involvement without evidence of necrosis
CPT/HCPCS: 11042

== ENCOUNTER 2018-01-24 12:51 | Inpatient (IN) | payer BC, SELFPAY ==
--- NOTE | 2018-01-23 23:03 | PCM.HP.BLA ---
History and Physical Date of Admission: 01/24/18 HISTORY OF PRESENT ILLNESS Chief Complaint: Nonhealing ulcers left anterior and posterior leg. History of Wound: 57-year-old white female is being treated for a brain tumor. She was started on chemotherapy and has received several rounds of her treatment. Side effects of the chemo is vasoconstriction. Patient has been on prednisone therapy also for the past year. Thin skin has caused her to bleed and develop open sores on her lower extremities from minor trauma. Patient's family says they start as a superficial ulcer from minor trauma and develops into a huge ulcer. She underwent surgery for these ulcers on 08/02/17 where she underwent excisional debridement nonhealing ulcer left posterior leg with STSG reconstruction from lower anterior abdominal wall (9 cm2) and excisional debridement nonhealing ulcer left lateral leg with STSG reconstruction from lower anterior abdominal wall (30.5 cm2) and excisional debridement nonhealing ulcer left anterior lower leg with STSG reconstruction from lower anterior abdominal wall (27 cm2) and excisional debridement nonhealing ulcer right lateral leg with STSG reconstruction from lower anterior abdominal wall (14.25 cm2) and excisional debridement nonhealing ulcer right anterior superior leg with STSG reconstruction from lower anterior abdominal wall (7 cm2) and excisional debridement nonhealing ulcer right lower leg/medial ankle with STSG reconstruction from lower anterior abdominal wall (24.5 cm2). Postop she developed some compromise to the skin grafts and underwent HBO treatments. Most of the wounds healed except for one on the left lower anterior leg and the left lower posterior leg in Achilles area. This Achilles area ulcer developed after the last surgery. She is being seen at the Wound Center and wound care with a Silver dressing has been done. A recent wound culture was done on 12/26/17 and it showed Staphylococcus epidermidis and Corynebacterium striatum. She was started on Doxycycline. She presents at this time for further operative debridement and skin grafting. She will also continue HBO treatments postop. Once healed, she can resume her chemotherapy for her brain tumor. PAST MEDICAL HISTORY Brain tumor. PAST SURGICAL HISTORY dilatation and curettage, - - brain surgery - 10/31. Surgical preparation left posterior leg with incision and drainage and excisional debridement involving underlying tendon nonhealing ulcer (12 cm2) and surgical preparation left inferolateral leg with incision and drainage and excisional debridement involving underlying muscle nonhealing ulcer (18 cm2) and surgical preparation left superolateral leg with incision and drainage and excisional debridement involving underlying muscle nonhealing ulcer (24 cm2) and surgical preparation left anterior lower leg with incision and drainage and excisional debridement involving underlying tendon and muscle nonhealing ulcer (30 cm2) and surgical preparation right lateral leg with incision and drainage and excisional debridement involving underlying fascia nonhealing ulcer (15.75 cm2) and surgical preparation right anterosuperior leg with incision and drainage and excisional debridement involving underlying fascia nonhealing ulcer (6.25 cm2) and surgical preparation right lower leg/anterior ankle with incision and drainage and excisional debridement involving underlying periosteum nonhealing ulcer (16 cm2) and surgical preparation right medial ankle with incision and drainage and excisional debridement involving underlying muscle nonhealing ulcer (8 cm2) - 06/24/17. 1. Excisional debridement nonhealing ulcer left posterior leg with STSG reconstruction from lower anterior abdominal wall (9 cm2). 2. Excisional debridement nonhealing ulcer left lateral leg with STSG reconstruction from lower anterior abdominal wall (30.5 cm2). 3. Excisional debridement nonhealing ulcer left anterior lower leg with STSG reconstruction from lower anterior abdominal wall (27 cm2). 4. Excisional debridement nonhealing ulcer right lateral leg with STSG reconstruction from lower anterior abdominal wall (14.25 cm2). 5. Excisional debridement nonhealing ulcer right anterior superior leg with STSG reconstruction from lower anterior abdominal wall (7 cm2). 6. Excisional debridement nonhealing ulcer right lower leg/medial ankle with STSG reconstruction from lower anterior abdominal wall (24.5 cm2) - 08/02/17 ALLERGIES None. MEDICATIONS Tylenol. Dulcolax. Os-Guido. Ceftriaxone. Vitamin D. Decadron. Valium. Pepcid. Duragesic Patch. Neurontin. Heparin. Dilaudid. Acidophilus. Keppra. Zestril. Milk of Magnesia. MVI. Rodger. Zofran. Miralax. Kdur. Phenergan. Senokot. SOCIAL HISTORY Lives: Spouse/ Significant Other Smoking Status: Former smoker Tobacco Use: Non-smoker Alcohol: None Drugs: None FAMILY HISTORY Negative for skin cancer. REVIEW OF SYSTEMS Constitutional: Denies: Chills, Fever. Eyes: Denies: Blurred vision, Drainage, Pain. HEENT: Denies: Difficulty Hearing, Difficulty Swallowing, Sore Throat, Visual Changes. Cardiovascular: Denies: Chest Pain, Palpitations, Syncope. Respiratory: Denies: Cough, Shortness of Breath. Gastrointestinal: Denies: Abdominal Pain, Nausea, Vomiting. Genitourinary: Denies: Dysuria, Frequency. Musculoskeletal: Denies: Joint Pain, Muscle pain. Skin: Reports: - - Open ulcers bilateral lower legs many. Denies: Jaundice, Rash. Neurological: Denies: Balance problems, Change in Speech, Difficulty swallowing, Focal weakness. Psychiatric: Denies: Anxiety, Depression. Endocrine: Denies: Change in Body Habitus. Hematologic/ Lymphatic: Denies: Adenopathy PHYSICAL EXAMINATION General: Oriented x3. HEENT: Atraumatic, PERRLA. Oral: Moist Mucosa. Neck: Supple, No cervical adenopathy. Lungs: Clear to auscultation. Cardiovascular: Regular rate, Regular Rhythm. Abdomen: Soft, Nondistended. Extremities: No clubbing, No edema. Musculoskeletal: No Tenderness to Palpation of Joints or Extremities. Lymphatic: No Cervical, Supraclavicular, or Inguinal Adenopathy. Neurological: Cranial nerves II-XII grossly intact. Psych/Mental Status: Normal Affect, Appropriate. Wound Measurements and Assessment Wound debrided: #12 Left lower posterior leg in Achilles area. Laterality: Left Wound Grade/Stage: 3. Measurements - 1.9 x 1.9 x 0.3 cm. Additional Wound Wound debrided: #17 Left lower anterior leg. Laterality: Left Wound Grade/Stage: 3. Measurements - 3.7 x 2.1 0.4 cm. ASSESSMENT 1. Nonhealing ulcer left lower posterior leg in Achilles area. 2. Nonhealing ulcer left lower anterior leg. 3. Brain tumor - receiving chemotherapy. PLAN Continue daily dressing changes with Silver dressings. Continue Doxycycline for the Staphylococcus epidermidis and Corynebacterium striatum. She presents for further debridement and skin grafting. After surgery she will followup at the Wound Center for evaluation for HBO treatments to help the healing of the skin grafts in preparation for further chemotherapy. Patient was informed of the risks and complications of the procedure including alternatives to surgery. These were discussed with her personally. She voices understanding and wishes to proceed. Surgery would be done under general anesthesia on an outpatient basis. Tissue will be sent to Microbiology for culture. A positive culture may necessitate antibiotic modification. Keep her legs elevated when sitting. Encourage nutritional supplementation with protein to help the healing process.
[2018-01-24] VITALS (8 sets, daily range): BP systolic 92–122; BP diastolic 58–73; PULSE 50–81; RESP 16; TEMP 36.1–37; O2SAT 93–98; BMI 27.8
[2018-01-24 08:36] LABS: Hematocrit 39.8 % (37-47); Hemoglobin 12.8 g/dl (12.0-15.0); Mean Corp Hgb Conc 32.2 g/gl (32-36); Mean Corpuscular Hgb 32.3 pg (27.0-32.0); Mean Corpuscular Volume 100.5 fL (81-99); Mean Platelet Vol. 9.4 fl (6.2-12.0); Platelet Count 167 K/mm3 (150-450); RBC Distribution Width CV 13.7 % (11.6-14.6); RBC Distribution Width SD 50.7 fl (35.1-43.9); Red Blood Count 3.96 M/mm3 (4.2-5.4); Scan Indicated on CBC? Y/N NO; White Blood Count 3.3 K/mm3 (4.4-11.0)
[2018-01-24 08:42] LABS: International Normalized Ratio 0.9; Prothrombin Time (Protime)PT. 12.2 SECONDS (11.7-14.9)
[2018-01-24 08:43] LABS: Partial Thromboplast Time 26.4 Seconds (24.1-36.2)
[2018-01-24 08:50] LABS: AST(SGOT) 27 U/L (15-37); Alanine Aminotransfer ALT/SGPT 67 U/L (13-56); Albumin, Serum 3.8 g/dL (3.2-5.0); Alkaline Phosphatase 109 U/L (45-117); Protein, Total 6.8 g/dL (6.4-8.2)
[2018-01-24] MEDS: Vancomycin IV 1,000 MG/200 ML BAG 200 MG IV (09:23)
--- NOTE | 2018-01-24 09:30 | UL_PTH ---
PATIENT: GEORGINA SKINNER LOC: [facility] U#:[id number] AGE/SX: 57/F ROOM: [facility]317 RE01/24/[address]: Dr. Kei Moya MD : 1960 BED: 1 DIS: 01/31/2018 SPEC #: [id number] RECD: 01/24/18 16:08 STATUS: NANCY GANESH #: [id number] MARRY: 01/24/18 09:[address]: Kei Moya DEPT: SURGICAL PATHOLOGY RECD BY: Stanley Shahid ENTERED: 01/25/18 07:10 SP TYPE: ULCER OTHR DR: Dr. Loc Arizmendi, DO Tissues: A - ULCER B - ULCER Procedures: Surgery Specimen Level III HEADER OPERATION: Excisional debridement, ulcer x2, skin grafting, leg PRE-OP DIAGNOSIS: Nonhealing ulcer left lower anterior leg TISSUE SUBMITTED: A - Nonhealing ulcer left lower posterior leg, B - Nonhealing ulcer left lower anterior leg MICROSCOPIC DIAGNOSIS A. Nonhealing ulcer, left lower posterior leg, excisional debridement: Skin with underlying tissue with ulceration, associated acute and chronic inflammation and granulation tissue reaction. B. Nonhealing ulcer, left lower anterior leg, excisional debridement: Skin with underlying tissue with ulceration, associated acute and chronic inflammation and granulation tissue reaction. SHANEKA:nathan 01/26/18 MICROSCOPIC DESCRIPTION Slides are reviewed. GROSS DESCRIPTION A - Received in fixative is one container labeled with the patient's name and designated nonhealing ulcer left lower posterior leg. The specimen consists of two pieces of irregular skin that in aggregate measure 3 x 2 x 0.4 cm. The largest piece is serially sectioned. The entire specimen is submitted in one cassette. B - Received in fixative is one container labeled with the patient's name and designated nonhealing ulcer left lower anterior leg. The specimen consists of two pieces of vargas soft tissue that in aggregate measure 3 x 1 x 0.2 cm. The entire specimen is submitted in one cassette. / SHANEKA:nathan 01/25/18 TC:2 CPT: 95503 x2
[2018-01-24] MEDS: levoFLOXacin IV 500 MG/100 ML BAG 100 MG IV (10:38)
--- NOTE | 2018-01-24 12:42 | OP.PN_ITS ---
Immediate Post-Op Note Date of Procedure: 01/24/18 Primary Surgeon/Physician: Kei Moya [employer] band teacher: Ravi Dior. Pre-Operative Diagnosis: 1. Nonhealing ulcer left lower posterior leg in Achilles area. 2. Nonhealing ulcer left lower anterior leg. 3. Brain tumor - receiving chemotherapy. Post-Operative Diagnosis: Same. Surgery/Procedure Performed:: 1. Surgical preparation left lower posterior leg in Achilles area with excisional debridement nonhealing ulcer and reconstruction with STSG from left flank (5 cm2). 2. Surgical preparation left lower anterior leg with excisional debridement nonhealing ulcer and reconstruction with STSG from left flank (15.75 cm2) and placement of CHELSEA NPWT device. Description of Surgical Findings:: 57-year-old white female is being treated for a brain tumor. She was started on chemotherapy and has received several rounds of her treatment. Side effects of the chemo is vasoconstriction. Patient has been on prednisone therapy also for the past year. Thin skin has caused her to bleed and develop open sores on her lower extremities from minor trauma. Patient's family says they start as a superficial ulcer from minor trauma and develops into a huge ulcer. She underwent surgery for these ulcers on 08/02/17 where she underwent excisional debridement nonhealing ulcer left posterior leg with STSG reconstruction from lower anterior abdominal wall (9 cm2) and excisional debridement nonhealing ulcer left lateral leg with STSG reconstruction from lower anterior abdominal wall (30.5 cm2) and excisional debridement nonhealing ulcer left anterior lower leg with STSG reconstruction from lower anterior abdominal wall (27 cm2) and excisional debridement nonhealing ulcer right lateral leg with STSG reconstruction from lower anterior abdominal wall (14.25 cm2) and excisional debridement nonhealing ulcer right anterior superior leg with STSG reconstruction from lower anterior abdominal wall (7 cm2) and excisional debridement nonhealing ulcer right lower leg/medial ankle with STSG reconstruction from lower anterior abdominal wall (24.5 cm2). Postop she developed some compromise to the skin grafts and underwent HBO treatments. Most of the wounds healed except for one on the left lower anterior leg and the left lower posterior leg in Achilles area. This Achilles area ulcer developed after the last surgery. She is being seen at [facility] and wound care with a Silver dressing has been done. A recent wound culture was done on and it showed Staphylococcus epidermidis and Corynebacterium striatum. She was started on Doxycycline. She presents at this time for further operative debridement and skin grafting. She will also continue HBO treatments postop. Once healed, she can resume her chemotherapy for her brain tumor. Today the patient underwent surgical preparation left lower posterior leg in Achilles area with excisional debridement nonhealing ulcer and reconstruction with STSG from left flank (5 cm2) and surgical preparation left lower anterior leg with excisional debridement nonhealing ulcer and reconstruction with STSG from left flank (15.75 cm2) and placement of CHELSEA NPWT device. I used Saray absorbable hemostat. Reference Number - [id number]. Lot Number - [id number]. Expiration - September 14, 2022. Estimated Blood Loss: 25 ml. Specimen's removed: 1. Left lower anterior leg ulcer to Pathology and Microbiology. 2. Left lower posterior leg ulcer to Pathology and Microbiology. Drains: None. Type of Anesthesia:: General - Admit VTE Documentation VTE Present on Admission: No VTE Mechan Device Prophylaxis: SCD's VTE Pharm Prophylaxis ordered?: Yes
--- NOTE | 2018-01-24 15:59 | CASEMGMT ---
Referral received for evaluation for TCU on dc. PT/OT orders entered. Message left for JOZEF Blancas re: evaluation for SNF on dc. Viraj BSN RN ACM
[2018-01-24] MEDS: oxyCODONE 5 MG Tablet 10 MG PO ×2 (16:20→20:40)
[2018-01-24] MEDS: Gabapentin 300 MG Capsule PO (16:22)
--- NOTE | 2018-01-24 20:17 | PCM.OPRPT ---
Report of Operation Date of Procedure: 01/24/18 Pre-Operative Diagnosis: 1. Nonhealing ulcer left lower posterior leg in Achilles area. 2. Nonhealing ulcer left lower anterior leg. 3. Brain tumor - receiving chemotherapy. Post-Operative Diagnosis: Same. Surgery/Procedure Performed:: 1. Surgical preparation left lower posterior leg in Achilles area with excisional debridement nonhealing ulcer and reconstruction with STSG from left flank (5 cm2). 2. Surgical preparation left lower anterior leg with excisional debridement nonhealing ulcer and reconstruction with STSG from left flank (15.75 cm2) and placement of CHELSEA NPWT device. Description of Surgical Findings:: 57-year-old white female is being treated for a brain tumor. She was started on chemotherapy and has received several rounds of her treatment. Side effects of the chemo is vasoconstriction. Patient has been on prednisone therapy also for the past year. Thin skin has caused her to bleed and develop open sores on her lower extremities from minor trauma. Patient's family says they start as a superficial ulcer from minor trauma and develops into a huge ulcer. She underwent surgery for these ulcers on 08/02/17 where she underwent excisional debridement nonhealing ulcer left posterior leg with STSG reconstruction from lower anterior abdominal wall (9 cm2) and excisional debridement nonhealing ulcer left lateral leg with STSG reconstruction from lower anterior abdominal wall (30.5 cm2) and excisional debridement nonhealing ulcer left anterior lower leg with STSG reconstruction from lower anterior abdominal wall (27 cm2) and excisional debridement nonhealing ulcer right lateral leg with STSG reconstruction from lower anterior abdominal wall (14.25 cm2) and excisional debridement nonhealing ulcer right anterior superior leg with STSG reconstruction from lower anterior abdominal wall (7 cm2) and excisional debridement nonhealing ulcer right lower leg/medial ankle with STSG reconstruction from lower anterior abdominal wall (24.5 cm2). Postop she developed some compromise to the skin grafts and underwent HBO treatments. Most of the wounds healed except for one on the left lower anterior leg and the left lower posterior leg in Achilles area. This Achilles area ulcer developed after the last surgery. She is being seen at the [facility] and wound care with a Silver dressing has been done. A recent wound culture was done on 12/26/17 and it showed Staphylococcus epidermidis and Corynebacterium striatum. She was started on Doxycycline. She presents at this time for further operative debridement and skin grafting. She will also continue HBO treatments postop. Once healed, she can resume her chemotherapy for her brain tumor. Patient was informed of the risks and complications of the procedure including alternatives to surgery. These were discussed with her personally. She voices understanding and wishes to proceed. I used Saray absorbable hemostat. Reference Number - [id number]. Lot Number - [id number]. Expiration - September 14, 2022. transit authority police officer: Ravi Dior. Type of Anesthesia:: General Specimen's removed: 1. Left lower anterior leg ulcer to Pathology and Microbiology. 2. Left lower posterior leg ulcer to Pathology and Microbiology. Drains: None. Estimated Blood Loss (mL): 25 ml. Description of Procedure: Patient was taken to the OR in supine position and was placed under general anesthesia. She was then placed in the lateral position and her left flank and left leg were prepped and draped in the usual fashion. SCD's were placed for DVT prophylaxis on the other leg. Perioperative antibiotics were given intravenously. Using xylocaine with epinephrine, I infiltrated both ulcers on the anterior leg and posterior leg as well as the left flank which will be the donor site for the skin graft. After waiting 5 minutes for the anesthetic to take effect, I excised an ellipse of skin from the left flank down into the subcutaneous tissue. The subcutaneous tissue was removed from the undersurface of the dermis along with some deeper dermis thus fashioning a thick split thickness skin graft. The skin graft was placed on stretch and meshed with a 15 blade. It was then placed in saline. I excised some additional subcutaneous tissue to aid in wound closure. Hemostasis was obtained with electrocautery. The wound was irrigated with saline. The wound was small enough that it did not need a drain. However to minimize seroma formation, I sprayed Saray absorbable hemostat into the left flank wound. I then closed the wound in multiple layers with 3-0 Vicryl figure of eight interrupted sutures for the deeper Ethan's fascial layer. The deep dermis and subcutaneous tissue was approximated with 3-0 Monocryl interrupted sutures. The skin was approximated with 3-0 V-lock unidirectional barbed running subcuticular suture. This was followed by Histoacryl skin tissue adhesive and a Kerlix gauze dressing. I then excised the ulcers on the anterior leg and posterior leg with a separate scalpel and I also used curettes. Some of the tissue was sent to Microbiology for culture and to Pathology for analysis to rule out carcinoma. Hemostasis was obtained with electrocautery. The wound were irrigated with saline. The size of the wound of the anterior leg after debridement was 4.5 x 3.5 cm or 15.75 cm2. The size of the wound of the posterior leg after debridement Pwas 2 x 2.5 cm or 5 cm2. The STSG was then placed on both wounds and secured to the skin edge with 3-0 Chromic interrupted sutures. 3-0 Chromic sutures were also used for central quilting stabilization. Mepitel nonadherent dressing was applied to the skin grafts followed by antibiotic ointment and CHELSEA NPWT device was applied for skin graft compression and stabilization. Good suction was noted. An NICKY wrap was then applied to the left leg as well. Patient tolerated the procedure well and was sent to PACU in satisfactory condition. She will be sent upstairs for a surgical observation overnight stay. Will see if she can qualify for TCU for a week or so for IV antibiotics. With her history of brain cancer and immunocompromised state, I would like to proceed with the IV antibiotics and she would be unable to do it herself at home. Grafts/Implants Used: None. - Complications None. - Admit VTE Documentation VTE Present on Admission: No VTE Mechan Device Prophylaxis: SCD's VTE Pharm Prophylaxis ordered?: Yes Code Visit Surgery Charges CPT - 45740 ICD-10 - L97.925, C71.9, D49.6, T86.828 66441 L97.925, C71.9, D49.6, T86.828
[2018-01-24] MEDS: levETIRAcetam 750 MG Tablet PO (21:57)
[2018-01-24] MEDS: Famotidine 20 MG Tablet PO (21:57)
[2018-01-24] MEDS: Docusate Sodium 100 MG Capsule PO (21:57)
[2018-01-24] MEDS: LORazepam 0.5 MG Tablet PO (21:57)
[2018-01-25 02:13] VITALS: BP 139/72; PULSE 57; RESP 18; TEMP 36.6; O2SAT 97
[2018-01-25] MEDS: Enoxaparin 30 MG/0.3 ML Syringe SC (06:27)
[2018-01-25] MEDS: Lactated Ringers 1,000 ML 60 ML IV (06:27)
[2018-01-25 07:41] LABS: Hematocrit 35.4 % (37-47); Hemoglobin 11.6 g/dl (12.0-15.0); Mean Corp Hgb Conc 32.8 g/gl (32-36); Mean Corpuscular Hgb 33.3 pg (27.0-32.0); Mean Corpuscular Volume 101.7 fL (81-99); Mean Platelet Vol. 9.9 fl (6.2-12.0); Platelet Count 162 K/mm3 (150-450); RBC Distribution Width CV 13.2 % (11.6-14.6); RBC Distribution Width SD 48.2 fl (35.1-43.9); Red Blood Count 3.48 M/mm3 (4.2-5.4); White Blood Count 4.8 K/mm3 (4.4-11.0)
[2018-01-25 07:57] LABS: Scan Indicated on CBC? Y/N NO
[2018-01-25] MEDS: Sertraline 50 MG Tablet 25 MG PO (08:00)
[2018-01-25] MEDS: Acetaminophen 500 MG Tablet 1000 MG PO (08:01)
[2018-01-25] MEDS: Polyethylene Glycol 3350 17 GM PACKET PO (08:02)
[2018-01-25] MEDS: Famotidine 20 MG Tablet PO ×2 (08:02→21:21)
[2018-01-25] MEDS: Multivitamins,Therapeutic Tablet 1 TABLET PO (08:02)
[2018-01-25] MEDS: Gabapentin 300 MG Capsule PO ×2 (08:02→16:45)
[2018-01-25] MEDS: Calcium (Elemental) 500 MG Tablet PO (08:02)
[2018-01-25] MEDS: Docusate Sodium 100 MG Capsule PO ×2 (08:03→21:21)
[2018-01-25 08:08] LABS: Anion Gap 9 (5-15); BUN 15 mg/dL (7-18); BUN/Creat Ratio 19.8 RATIO (10-20); Calcium,Total 8.7 mg/dL (8.5-10.1); Chloride 105 mmol/L (98-107); Creatinine, Serum 0.76 mg/dL (0.55-1.02); EST Glomerular Filtration Rate 83 mL/min (>60); Est Glom Filt Rate - Afr Amer 101 mL/min (>60); Glucose 86 mg/dL (74-106); Potassium 3.8 mmol/L (3.5-5.1); Prealbumin 30.8 mg/dL (20.0-40.0); Sodium Level 142 mmol/L (136-145)
[2018-01-25 08:10] VITALS: BP 119/75; PULSE 60; RESP 18; TEMP 36.6; O2SAT 97
[2018-01-25] MEDS: Vancomycin IV 1,000 MG/200 ML BAG 200 MG IV (09:13)
[2018-01-25] MEDS: levETIRAcetam 750 MG Tablet PO ×2 (10:42→21:21)
[2018-01-25] MEDS: levoFLOXacin IV 500 MG/100 ML BAG 100 MG IV (10:42)
--- NOTE | 2018-01-25 11:59 | CASEMGMT ---
Social Work: Spoke with patient in room. Introduced self and the role of the social services analyst. Patient lives alone but has a daughter that lives close by and assists as needed. Patient was diagnosed with brain cancer in 2016 and has had health issues since. Patient admits to recent feelings of anxiety and depression due to loss of activity and independence. Patient currently has daily dressing changes and IV ATB and is unsure that this can be managed at home. Per nursing, Dr. Moya recommending short term SNF as well. Patient choosing TCU. Will follow for D/C planning. TC to Anabella Dixon in TCU. Anabella states that TCU is able to accept patient and she will start pre- cert. PLAN: Patient to be discharged to TCU when medically ready and once insurance approval has been received. SARAH Waters
[2018-01-25 14:00] VITALS: BP 121/81; PULSE 52; RESP 16; TEMP 36.7; O2SAT 98
[2018-01-25] MEDS: oxyCODONE 5 MG Tablet 10 MG PO ×2 (14:50→22:33)
--- NOTE | 2018-01-25 16:55 | PN.SURG_ITS ---
Subjective: Postop #1 Patient is resting comfortably. - Physical Exam General: Alert, Oriented x3 HEENT: PERRLA, EOMI Neck: Supple Abdomen: Soft, Non-Distended Skin: Ulcer/ Wound - Skin graft dressing is dry. CHELSEA NPWT device is functional., Incision - Donor incision dressing left flank is dry. Neurological: Cranial nerves II-XII grossly intact Psych/Mental Status: Normal Affect, Appropriate Vital Signs Temp Pulse Resp BP Pulse Ox 98.1 F 52 L 16 121/81 H 98 01/25/18 14:00 01/25/18 14:00 01/25/18 14:00 01/25/18 14:00 01/25/18 14:00 Oxygen Delivery Method Room Air Weight: 183 lb 3.266 oz Body Mass Index (BMI) 27.8 Intake and Output for Last 24 Hours 01/23/18 01/24/18 01/25/18 23:59 23:59 23:59 Intake Total 2579 / 2579 2297 / 2297 Output Total 1000 / 1000 2300 / 2300 Balance 1579 / 1579 -3 / -3 Microbiology Past 72 Hours 01/24/18 12:56 Gram Stain - Final Tissue - Leg, Left Wound Culture - Preliminary Staphylococcus species 01/24/18 12:56 Gram Stain - Final Tissue - Leg, Left Wound Culture - Preliminary Staphylococcus species Laboratory Tests Past 24 Hrs 01/25/18 01/25/18 07:02 07:02 WBC 4.8 RBC 3.48 L Hgb 11.6 L Hct 35.4 L MCV 101.7 H MCH 33.3 H MCHC 32.8 RDW 13.2 RDW Differential 48.2 H Plt Count 162 MPV 9.9 Sodium 142 Potassium 3.8 Chloride 105 Carbon Dioxide 28.0 Anion Gap 9 BUN 15 Creatinine 0.76 Estim Creat Clear Calc 80.40 Est GFR (MDRD) Af Amer 101 Est GFR (MDRD) Non-Af 83 BUN/Creatinine Ratio 19.8 Glucose 86 Calcium 8.7 Prealbumin 30.8 Medical Necessity - Tobacco Use Smoking Status: Former smoker Assessment/Plan All Active Problems (Last Updated 12/16/17 @ 17:12 by Sari Hawk DO) Other complications of skin graft (allograft) (autograft) (Acute) Failed skin graft (Acute) Complication of skin graft (Acute) Ulcers of both lower legs (Acute) Wound, open, lower limb with complication (Acute) Infected open wound (Acute) Brain tumor (Acute) MRSA (methicillin resistant staph aureus) culture positive (Acute) Debility, unspecified (Acute) 1. Nonhealing ulcer left lower posterior leg in Achilles area. 2. Nonhealing ulcer left lower anterior leg. 3. Brain tumor - receiving chemotherapy. 4. s/p surgical preparation left lower posterior leg in Achilles area with excisional debridement nonhealing ulcer and reconstruction with STSG from left flank (5 cm2) and surgical preparation left lower anterior leg with excisional debridement nonhealing ulcer and reconstruction with STSG from left flank ( 15.75 cm2) and placement of CHELSEA NPWT device. Continue IV Vancomycin and Levaquin. Operative culture shows Staphylococcus species. Skin graft dressing is dry and the CHELSEA NPWT device is functional. Would benefit from IV antibiotics because of her immunocompromised state and positive culture. May need PICC line. Recommend evaluation for TCU. After discharge followup at the [facility]ound Center.
[2018-01-25 20:30] VITALS: BP 117/79; PULSE 54; RESP 18; TEMP 36.9; O2SAT 97
[2018-01-25] MEDS: LORazepam 0.5 MG Tablet PO (21:23)
[2018-01-26] MEDS: Lactated Ringers 1,000 ML 60 ML IV ×2 (02:36→19:50)
[2018-01-26 02:38] VITALS: BP 142/73; PULSE 49; RESP 18; TEMP 36.7; O2SAT 96
[2018-01-26] MEDS: Enoxaparin 30 MG/0.3 ML Syringe SC (06:02)
[2018-01-26 07:43] VITALS: BP 129/79; PULSE 50; RESP 16; TEMP 36.6; O2SAT 97
[2018-01-26] MEDS: Multivitamins,Therapeutic Tablet 1 TABLET PO (07:53)
[2018-01-26] MEDS: Calcium (Elemental) 500 MG Tablet PO (07:53)
[2018-01-26] MEDS: Gabapentin 300 MG Capsule PO ×2 (07:53→17:00)
[2018-01-26] MEDS: Vancomycin IV 1,000 MG/200 ML BAG 200 MG IV (09:20)
[2018-01-26] MEDS: Polyethylene Glycol 3350 17 GM PACKET PO (10:13)
[2018-01-26] MEDS: Acetaminophen 500 MG Tablet 1000 MG PO (10:13)
[2018-01-26] MEDS: Famotidine 20 MG Tablet PO ×2 (10:13→21:19)
[2018-01-26] MEDS: levETIRAcetam 750 MG Tablet PO ×2 (10:13→21:19)
[2018-01-26] MEDS: Docusate Sodium 100 MG Capsule PO (10:13)
[2018-01-26] MEDS: Sertraline 50 MG Tablet 25 MG PO (10:14)
[2018-01-26] MEDS: levoFLOXacin IV 500 MG/100 ML BAG 100 MG IV (10:34)
--- NOTE | 2018-01-26 12:48 | CASEMGMT ---
SW spoke w/Anabella in TCU earlier, they have not heard back from insurance. SW let pt know that we are still waiting to hear from insurance, will let her know as soon as we hear anything. Pt states understanding. SW will continue to follow. SARAH Badillo, RN DOCUMENT IMPROVEMENT
[2018-01-26 13:45] VITALS: BP 99/66; PULSE 58; RESP 18; TEMP 36.6; O2SAT 96
--- NOTE | 2018-01-26 18:03 | PCM.PN.SRG ---
Subjective: Postop #2 Patient is resting comfortably. - Physical Exam General: Alert, Oriented x3 HEENT: PERRLA, EOMI Oral: Moist Mucosa Neck: Supple Abdomen: Soft, Non-Distended Skin: Ulcer/ Wound - Skin graft dressing is dry. CHELSEA NPWT device is functional., Incision - Donor incision dressing left flank is dry. Neurological: Cranial nerves II-XII grossly intact Psych/Mental Status: Normal Affect, Appropriate Vital Signs Temp Pulse Resp BP Pulse Ox 97.9 F 58 L 18 99/66 96 01/26/18 13:45 01/26/18 13:45 01/26/18 13:45 01/26/18 13:45 01/26/18 13:45 Oxygen Delivery Method Room Air Weight: 183 lb 3.266 oz Body Mass Index (BMI) 27.8 Intake and Output for Last 24 Hours 01/24/18 01/25/18 01/26/18 23:59 23:59 23:59 Intake Total 2579 / 2579 3989 / 3989 1830 / 1830 Output Total 1000 / 1000 2500 / 2500 2500 / 2500 Balance 1579 / 1579 1489 / 1489 -670 / -670 Microbiology Past 72 Hours 01/24/18 12:56 Fungal Smear - Final Tissue - Leg, Left 01/24/18 12:56 Fungal Smear - Final Tissue - Leg, Left 01/24/18 12:56 Gram Stain - Final Tissue - Leg, Left Wound Culture - Final Staphylococcus epidermidis Anaerobic Culture - Preliminary Checking for anaerobes, further studies to follow. 01/24/18 12:56 Gram Stain - Final Tissue - Leg, Left Wound Culture - Final Staphylococcus epidermidis Anaerobic Culture - Preliminary Checking for anaerobes, further studies to follow. Medical Necessity - Tobacco Use Smoking Status: Former smoker Assessment/Plan All Active Problems (Last Updated 12/16/17 @ 17:12 by Sari Hawk DO) Other complications of skin graft (allograft) (autograft) (Acute) Failed skin graft (Acute) Complication of skin graft (Acute) Ulcers of both lower legs (Acute) Wound, open, lower limb with complication (Acute) Infected open wound (Acute) Brain tumor (Acute) MRSA (methicillin resistant staph aureus) culture positive (Acute) Debility, unspecified (Acute) 1. Nonhealing ulcer left lower posterior leg in Achilles area. 2. Nonhealing ulcer left lower anterior leg. 3. Brain tumor - receiving chemotherapy. 4. s/p surgical preparation left lower posterior leg in Achilles area with excisional debridement nonhealing ulcer and reconstruction with STSG from left flank (5 cm2) and surgical preparation left lower anterior leg with excisional debridement nonhealing ulcer and reconstruction with STSG from left flank (15.75 cm2) and placement of CHELSEA NPWT device. 5. MRSE. Operative culture shows MRSE in both cultures. Continue IV Vancomycin and Levaquin. Skin graft dressing is dry and the CHELSEA NPWT device is functional. Will remove skin graft dressing on Tuesday01/30/18. Resistant Staph can compromise the skin grafts especially because of her immunocompromised state. Will order a PICC line. She will need tank terminal gauger IV antibiotics with Vancomycin. Can switch to po Levaquin when discharged to TCU. TCU evaluation in process. After discharge followup at the [facility] Center.
--- NOTE | 2018-01-26 19:24 | NURSING ---
This RN called pharmacy and notified them that patient has order for pharmacy to dose vanco. Notified that no trough levels are ordered. Hannah stated she would let pharmacist know- Javier called and verified same- notified nursing communication order entered by Dr. Moya regarding pharmacy to dose.
--- NOTE | 2018-01-26 19:37 | PCM.RX.CS ---
Consult Pharmacy has been consulted to manage selected antiobiotic: Vancomycin Type of Consult: Follow-up Suspected Infection: Skin/Soft tissue Prior Doses of Antibiotics Received/Current Regimen: VANCOMYCIN 1000MG Q24H Labs: Sodium 142 mmol/L (136-145) 01/25/18 07:02 Potassium 3.8 mmol/L (3.5-5.1) 01/25/18 07:02 Chloride 105 mmol/L (98-107) 01/25/18 07:02 Carbon Dioxide 28.0 mmol/L (21.0-32.0) 01/25/18 07:02 Anion Gap 9 (5-15) 01/25/18 07:02 BUN 15 mg/dL (7-18) 01/25/18 07:02 Creatinine 0.76 mg/dL (0.55-1.02) 01/25/18 07:02 Est GFR (MDRD) Af Amer 101 mL/min (>60) 01/25/18 07:02 Est GFR (MDRD) Non-Af 83 mL/min (>60) 01/25/18 07:02 BUN/Creatinine Ratio 19.8 RATIO (10-20) 01/25/18 07:02 Glucose 86 mg/dL (74-106) 01/25/18 07:02 Microbiology: Microbiology 01/24/18 12:56 Tissue - Leg, Left Fungal Smear - Final 01/24/18 12:56 Tissue - Leg, Left Fungal Smear - Final 01/24/18 12:56 Tissue - Leg, Left Gram Stain - Final 01/24/18 12:56 Tissue - Leg, Left Wound Culture - Final Staphylococcus epidermidis 01/24/18 12:56 Tissue - Leg, Left Anaerobic Culture - Preliminary Checking for anaerobes, further studies to follow. 01/24/18 12:56 Tissue - Leg, Left Gram Stain - Final 01/24/18 12:56 Tissue - Leg, Left Wound Culture - Final Staphylococcus epidermidis 01/24/18 12:56 Tissue - Leg, Left Anaerobic Culture - Preliminary Checking for anaerobes, further studies to follow. Goal Trough: 10-15 mcg/mL Pharmacy Plan for Drug Dosing: Pharmacy Service will continue to monitor and adjust dosing as required. Follow-Up Labs: Trough Vancomycin Labs to be done on [date and time ordered]: 01/27/18 AT 0900
[2018-01-26] MEDS: LORazepam 0.5 MG Tablet PO (19:50)
[2018-01-26 20:00] VITALS: BP 142/90; PULSE 55; RESP 18; TEMP 36.5; O2SAT 95
[2018-01-26 20:59] VITALS: O2SAT 95
[2018-01-26] MEDS: oxyCODONE 5 MG Tablet 10 MG PO (21:21)
[2018-01-27 02:00] VITALS: BP 122/78; PULSE 66; RESP 18; TEMP 36.6; O2SAT 97
[2018-01-27] MEDS: Enoxaparin 30 MG/0.3 ML Syringe SC (05:56)
[2018-01-27] MEDS: oxyCODONE 5 MG Tablet 10 MG PO ×3 (05:59→20:46)
[2018-01-27 08:03] VITALS: BP 146/87; PULSE 60; RESP 18; TEMP 36.6; O2SAT 98
[2018-01-27] MEDS: Multivitamins,Therapeutic Tablet 1 TABLET PO (08:13)
[2018-01-27] MEDS: Gabapentin 300 MG Capsule PO ×2 (08:13→17:09)
[2018-01-27] MEDS: Calcium (Elemental) 500 MG Tablet PO (08:13)
[2018-01-27] MEDS: Docusate Sodium 100 MG Capsule PO (09:30)
[2018-01-27] MEDS: Polyethylene Glycol 3350 17 GM PACKET PO (09:30)
[2018-01-27] MEDS: Vancomycin IV 1,000 MG/200 ML BAG 200 MG IV (09:30)
[2018-01-27] MEDS: levETIRAcetam 750 MG Tablet PO ×2 (09:30→21:00)
[2018-01-27] MEDS: Sertraline 50 MG Tablet 25 MG PO (09:31)
[2018-01-27] MEDS: Famotidine 20 MG Tablet PO ×2 (09:31→21:00)
[2018-01-27] MEDS: Acetaminophen 500 MG Tablet 1000 MG PO (09:31)
[2018-01-27 10:08] LABS: Vancomycin, Trough Level 5.7 ug/mL (5.0-15.0)
--- NOTE | 2018-01-27 10:09 | CASEMGMT ---
Addendum entered by Melissa Peña 01/27/18 13:28: SW did let pt know that we have still not heard anything from her insurance in regard to the precert for TCU. SW will continue to follow. SARAH Badillo, WIRELESS TEAM MEMBER Original Note: SW spoke w/Linda from TCU, the precert is still pending, Linda is to let this SW know once she hears from insurance. SARAH Badillo, WIRELESS TEAM MEMBER
[2018-01-27] MEDS: levoFLOXacin IV 500 MG/100 ML BAG 100 MG IV (10:39)
--- NOTE | 2018-01-27 12:31 | PCM.RX.CS ---
Consult Pharmacy has been consulted to manage selected antiobiotic: Vancomycin Type of Consult: Follow-up Suspected Infection: Skin/Soft tissue Prior Doses of Antibiotics Received/Current Regimen: VANCOMYCIN 1000MG IV Q24HRS: 01/25 @0913, 01/26 @0920, 01/27 @0930 Labs: Sodium 142 mmol/L (136-145) 01/25/18 07:02 Potassium 3.8 mmol/L (3.5-5.1) 01/25/18 07:02 Chloride 105 mmol/L (98-107) 01/25/18 07:02 Carbon Dioxide 28.0 mmol/L (21.0-32.0) 01/25/18 07:02 Anion Gap 9 (5-15) 01/25/18 07:02 BUN 15 mg/dL (-18) 01/25/18 07:02 Creatinine 0.76 mg/dL (0.55-1.02) 01/25/18 07:02 Est GFR (MDRD) Af Amer 101 mL/min (>60) 01/25/18 07:02 Est GFR (MDRD) Non-Af 83 mL/min (>60) 01/25/18 07:02 BUN/Creatinine Ratio 19.8 RATIO (10-20) 01/25/18 07:02 Glucose 86 mg/dL (74-106) 01/25/18 07:02 Vancomycin Trough 5.7 ug/mL (5.0-15.0) 01/27/18 09:18 Microbiology: Microbiology 01/24/18 12:56 Tissue - Leg, Left Gram Stain - Final 01/24/18 12:56 Tissue - Leg, Left Wound Culture - Final Staphylococcus epidermidis 01/24/18 12:56 Tissue - Leg, Left Anaerobic Culture - Final No anaerobic bacteria isolated. 01/24/18 12:56 Tissue - Leg, Left Gram Stain - Final 01/24/18 12:56 Tissue - Leg, Left Wound Culture - Final Staphylococcus epidermidis 01/24/18 12:56 Tissue - Leg, Left Anaerobic Culture - Final No anaerobic bacteria isolated. 01/24/18 12:56 Tissue - Leg, Left Fungal Smear - Final 01/24/18 12:56 Tissue - Leg, Left Fungal Smear - Final Weight used for dosin kg Estimated Creatinine Clearance: 80ML/MIN Goal Trough: 10-15 mcg/mL Pharmacy Plan for Drug Dosing: The patient had a trough drawn which resulted in a value of 5.7 (drawn ~24hrs from last dose administered). Since the patient had a goal of 10-15, will increase the frequency and reassess the trough in a few days to determine if more adjustments need made. PLAN/RECOMMENDATIONS 1. Vancomycin 750mg IV Q12hrs to start 01/27 @2100 2. Trough scheduled for 01/30/18 @0830 to reassess dosing 3. Pharmacy Service will continue to monitor and adjust dosing as required.
--- NOTE | 2018-01-27 13:00 | NURSING ---
Called and spoke with coin dealer, aware of need for PICC. They will call back with time that RN will be out to perform the procedure.
--- NOTE | 2018-01-27 14:00 | PCM.PN.SRG ---
Subjective: Postop #3 Patient is resting comfortably. - Physical Exam General: Alert, Oriented x3 HEENT: PERRLA, EOMI Oral: Moist Mucosa Neck: Supple Abdomen: Soft, Non-Distended Skin: Ulcer/ Wound - skin graft dressing is dry. CHELSEA NPWT device is functional., Incision - Donor incision dry and intact. Neurological: Cranial nerves II-XII grossly intact Psych/Mental Status: Normal Affect, Appropriate Vital Signs Temp Pulse Resp BP Pulse Ox 97.8 F 60 18 146/87 H 98 01/27/18 08:03 01/27/18 08:03 01/27/18 08:03 01/27/18 08:03 01/27/18 08:03 Oxygen Delivery Method Room Air Weight: 183 lb 3.266 oz Body Mass Index (BMI) 27.8 Intake and Output for Last 24 Hours 01/25/18 01/26/18 01/27/18 23:59 23:59 23:59 Intake Total 3989 / 3989 1830 / 1830 495 / 495 Output Total 2500 / 2500 2600 / 2600 350 / 350 Balance 1489 / 1489 -770 / -770 145 / 145 Microbiology Past 72 Hours 01/24/18 12:56 Gram Stain - Final Tissue - Leg, Left Wound Culture - Final Staphylococcus epidermidis Anaerobic Culture - Final No anaerobic bacteria isolated. 01/24/18 12:56 Gram Stain - Final Tissue - Leg, Left Wound Culture - Final Staphylococcus epidermidis Anaerobic Culture - Final No anaerobic bacteria isolated. 01/24/18 12:56 Fungal Smear - Final Tissue - Leg, Left 01/24/18 12:56 Fungal Smear - Final Tissue - Leg, Left Laboratory Tests Past 24 Hrs 01/27/18 09:18 Vancomycin Trough 5.7 Medical Necessity - Tobacco Use Smoking Status: Former smoker Assessment/Plan All Active Problems (Last Updated 12/16/17 @ 17:12 by Sari Hawk DO) Other complications of skin graft (allograft) (autograft) (Acute) Failed skin graft (Acute) Complication of skin graft (Acute) Ulcers of both lower legs (Acute) Wound, open, lower limb with complication (Acute) Infected open wound (Acute) Brain tumor (Acute) MRSA (methicillin resistant staph aureus) culture positive (Acute) Debility, unspecified (Acute) 1. Nonhealing ulcer left lower posterior leg in Achilles area. 2. Nonhealing ulcer left lower anterior leg. 3. Brain tumor - receiving chemotherapy. 4. s/p surgical preparation left lower posterior leg in Achilles area with excisional debridement nonhealing ulcer and reconstruction with STSG from left flank (5 cm2) and surgical preparation left lower anterior leg with excisional debridement nonhealing ulcer and reconstruction with STSG from left flank (15.75 cm2) and placement of CHELSEA NPWT device. 5. MRSE. Operative culture shows MRSE in both cultures. Continue IV Vancomycin and Levaquin. Will switch the Levaquin to po when discharged to TCU. Skin graft dressing is dry and the CHELSEA NPWT device is functional. Will remove skin graft dressing on Tuesday01/30/18. Resistant Staph can compromise the skin grafts especially because of her immunocompromised state. PICC line has been placed. She will need moth exterminator IV antibiotics with Vancomycin. TCU evaluation in process. After discharge followup at the [facility].
[2018-01-27 14:12] VITALS: BP 124/65; PULSE 65; RESP 18; TEMP 36.7; O2SAT 95
[2018-01-27 20:15] VITALS: BP 140/78; PULSE 52; RESP 18; TEMP 36.4; O2SAT 97
[2018-01-27] MEDS: Lactated Ringers 1,000 ML 60 ML IV (20:47)
[2018-01-28 02:29] VITALS: BP 150/68; PULSE 50; RESP 16; TEMP 36.5; O2SAT 98
[2018-01-28] MEDS: Enoxaparin 30 MG/0.3 ML Syringe SC (05:35)
[2018-01-28 05:51] LABS: Hematocrit 36.5 % (37-47); Hemoglobin 11.8 g/dl (12.0-15.0); Mean Corp Hgb Conc 32.3 g/gl (32-36); Mean Corpuscular Hgb 32.7 pg (27.0-32.0); Mean Corpuscular Volume 101.1 fL (81-99); Mean Platelet Vol. 9.4 fl (6.2-12.0); Platelet Count 137 K/mm3 (150-450); RBC Distribution Width CV 13.6 % (11.6-14.6); RBC Distribution Width SD 50.6 fl (35.1-43.9); Red Blood Count 3.61 M/mm3 (4.2-5.4); White Blood Count 3.8 K/mm3 (4.4-11.0)
[2018-01-28 05:52] LABS: Scan Indicated on CBC? Y/N NO
[2018-01-28] MEDS: 0.9% NaCl Peripheral Flush Adult/Peds IV (05:57)
[2018-01-28 06:08] LABS: Anion Gap 6 (5-15); BUN 14 mg/dL (7-18); BUN/Creat Ratio 18.6 RATIO (10-20); Calcium,Total 8.7 mg/dL (8.5-10.1); Chloride 106 mmol/L (98-107); Creatinine, Serum 0.75 mg/dL (0.55-1.02); EST Glomerular Filtration Rate 83 mL/min (>60); Est Glom Filt Rate - Afr Amer 101 mL/min (>60); Estimated Creatinine Clearance 81.47 ml/min; Glucose 90 mg/dL (74-106); Potassium 3.8 mmol/L (3.5-5.1); Sodium Level 145 mmol/L (136-145)
[2018-01-28] MEDS: Multivitamins,Therapeutic Tablet 1 TABLET PO (07:25)
[2018-01-28] MEDS: Gabapentin 300 MG Capsule PO ×2 (07:26→16:36)
[2018-01-28] MEDS: Calcium (Elemental) 500 MG Tablet PO (07:26)
[2018-01-28] MEDS: Acetaminophen 500 MG Tablet 1000 MG PO (07:27)
[2018-01-28] MEDS: Famotidine 20 MG Tablet PO ×2 (07:27→21:25)
[2018-01-28] MEDS: levETIRAcetam 750 MG Tablet PO ×2 (07:29→21:25)
[2018-01-28] MEDS: Sertraline 50 MG Tablet 25 MG PO (07:29)
[2018-01-28 07:36] VITALS: BP 138/85; PULSE 57; RESP 16; TEMP 36.4; O2SAT 97
--- NOTE | 2018-01-28 08:20 | CASEMGMT ---
Precert was not attained yesterday. SW spoke w/pt in the room this morning, let her know we have not yet attained precert. SW spoke w/pt in regard to this. SW explained that as per Dr. Moya's note, she will need IV's for one week. SW explained that by Tuesday, she may almost be done with the IV antibiotics and the insurance may not approve her for SNF if all she needs is daily dressing changes. SW explained we can see if Dr. Moya is planning for longer than a week for the IV's. If not however, SW inquired if there is anybody who can assist w/dressing changes at home. Pt states that her daughter is a nurse and may be able to assist, but she would just need to coordinate this w/her. SW explained if she were to go home we would also set up home health, but they cannot come daily. Pt states understanding. SW explained will follow up Tuesday w/TCU, Dr. Moya, and pt to see what is most appropriate for pt by Tuesday in regard to discharge plan. Pt states understanding. SW will continue to follow. SARAH Badillo, 1ST GRADE TEACHER
[2018-01-28] MEDS: levoFLOXacin IV 500 MG/100 ML BAG 100 MG IV (11:11)
[2018-01-28 11:15] VITALS: BP 116/65; PULSE 63; RESP 16; TEMP 36.6; O2SAT 94
--- NOTE | 2018-01-28 13:11 | PCM.PN.SRG ---
Subjective: Postop #4 Patient is resting comfortably. PICC line has been placed. - Physical Exam General: Alert, Oriented x3 HEENT: PERRLA, EOMI Oral: Moist Mucosa Neck: Supple Abdomen: Soft, Non-Distended Skin: Ulcer/ Wound - Skin graft dressing is dry. CHELSEA NPWT device is functional., Incision - Donor incision left flank is dry and intact. Neurological: Cranial nerves II-XII grossly intact Psych/Mental Status: Normal Affect, Appropriate Vital Signs Temp Pulse Resp BP Pulse Ox 97.8 F 63 16 116/65 94 01/28/18 11:15 01/28/18 11:15 01/28/18 11:15 01/28/18 11:15 01/28/18 11:15 Oxygen Delivery Method Room Air Weight: 183 lb 3.266 oz Body Mass Index (BMI) 27.8 Intake and Output for Last 24 Hours 01/26/18 01/27/18 01/28/18 23:59 23:59 23:59 Intake Total 1830 / 1830 1288 / 1288 885 / 885 Output Total 2600 / 2600 350 / 350 Balance -770 / -770 938 / 938 885 / 885 Microbiology Past 72 Hours 01/24/18 12:56 Gram Stain - Final Tissue - Leg, Left Wound Culture - Final Staphylococcus epidermidis Anaerobic Culture - Final No anaerobic bacteria isolated. 01/24/18 12:56 Gram Stain - Final Tissue - Leg, Left Wound Culture - Final Staphylococcus epidermidis Anaerobic Culture - Final No anaerobic bacteria isolated. 01/24/18 12:56 Fungal Smear - Final Tissue - Leg, Left 01/24/18 12:56 Fungal Smear - Final Tissue - Leg, Left Laboratory Tests Past 24 Hrs 01/28/18 01/28/18 05:35 05:35 WBC 3.8 L RBC 3.61 L Hgb 11.8 L Hct 36.5 L MCV 101.1 H MCH 32.7 H MCHC 32.3 RDW 13.6 RDW Differential 50.6 H Plt Count 137 L MPV 9.4 Sodium 145 Potassium 3.8 Chloride 106 Carbon Dioxide 33.0 H Anion Gap 6 BUN 14 Creatinine 0.75 Estim Creat Clear Calc 81.47 Est GFR (MDRD) Af Amer 101 Est GFR (MDRD) Non-Af 83 BUN/Creatinine Ratio 18.6 Glucose 90 Calcium 8.7 Medical Necessity - Tobacco Use Smoking Status: Former smoker Assessment/Plan All Active Problems (Last Updated 12/16/17 @ 17:12 by Sari Hawk DO) Other complications of skin graft (allograft) (autograft) (Acute) Failed skin graft (Acute) Complication of skin graft (Acute) Ulcers of both lower legs (Acute) Wound, open, lower limb with complication (Acute) Infected open wound (Acute) Brain tumor (Acute) MRSA (methicillin resistant staph aureus) culture positive (Acute) Debility, unspecified (Acute) 1. Nonhealing ulcer left lower posterior leg in Achilles area. 2. Nonhealing ulcer left lower anterior leg. 3. Brain tumor - receiving chemotherapy. 4. s/p surgical preparation left lower posterior leg in Achilles area with excisional debridement nonhealing ulcer and reconstruction with STSG from left flank (5 cm2) and surgical preparation left lower anterior leg with excisional debridement nonhealing ulcer and reconstruction with STSG from left flank (15.75 cm2) and placement of CHELSEA NPWT device. 5. MRSE. Operative culture shows MRSE in both cultures. Continue IV Vancomycin and Levaquin. Will switch the Levaquin to po when discharged to TCU. Skin graft dressing is dry and the CHELSEA NPWT device is functional. Will remove skin graft dressing on Tuesday01/30/18. Resistant Staph can compromise the skin grafts especially because of her immunocompromised state. PICC line has been placed. She will need laborer marine terminal IV antibiotics with Vancomycin. TCU evaluation in process. After discharge followup at the [facility]ound Center.
[2018-01-28] MEDS: oxyCODONE 5 MG Tablet 10 MG PO (14:34)
[2018-01-28 14:36] VITALS: BP 121/71; PULSE 58; RESP 16; TEMP 36.6; O2SAT 96
[2018-01-28] MEDS: Lactated Ringers 1,000 ML 60 ML IV (16:36)
[2018-01-28 20:02] VITALS: BP 140/85; PULSE 56; RESP 16; TEMP 36.7; O2SAT 96
[2018-01-28] MEDS: LORazepam 0.5 MG Tablet PO (22:18)
[2018-01-29 02:28] VITALS: BP 141/90; PULSE 54; RESP 16; TEMP 36.8; O2SAT 97
[2018-01-29] MEDS: oxyCODONE 5 MG Tablet 10 MG PO (05:05)
[2018-01-29] MEDS: Enoxaparin 30 MG/0.3 ML Syringe SC (05:06)
[2018-01-29] MEDS: Lactated Ringers 1,000 ML 60 ML IV (08:35)
[2018-01-29] MEDS: Gabapentin 300 MG Capsule PO ×2 (08:38→17:51)
[2018-01-29] MEDS: Multivitamins,Therapeutic Tablet 1 TABLET PO (08:39)
[2018-01-29 08:55] VITALS: BP 109/71; PULSE 60; RESP 16; TEMP 36.7; O2SAT 98
[2018-01-29] MEDS: Calcium (Elemental) 500 MG Tablet PO (08:57)
[2018-01-29] MEDS: Docusate Sodium 100 MG Capsule PO (09:24)
[2018-01-29] MEDS: levETIRAcetam 750 MG Tablet PO ×2 (09:25→21:15)
[2018-01-29] MEDS: Famotidine 20 MG Tablet PO ×2 (09:25→21:16)
[2018-01-29] MEDS: Acetaminophen 500 MG Tablet 1000 MG PO (09:25)
[2018-01-29] MEDS: Sertraline 50 MG Tablet 25 MG PO (09:26)
[2018-01-29] MEDS: Polyethylene Glycol 3350 17 GM PACKET PO (09:27)
[2018-01-29] MEDS: levoFLOXacin IV 500 MG/100 ML BAG 100 MG IV (10:55)
--- NOTE | 2018-01-29 13:14 | PN.SURG_ITS ---
Subjective: Postop #5 Patient is resting comfortably. - Physical Exam General: Alert, Oriented x3 HEENT: PERRLA, EOMI Oral: Moist Mucosa Neck: Supple Abdomen: Soft, Non-Distended Skin: Ulcer/ Wound - Skin graft dressing is dry. CHELSEA NPWT device is functional., Incision - Donor incision left flank is dry and intact. Neurological: Cranial nerves II-XII grossly intact Psych/Mental Status: Normal Affect, Appropriate Vital Signs Temp Pulse Resp BP Pulse Ox 98.0 F 60 16 109/71 98 01/29/18 08:55 01/29/18 08:55 01/29/18 08:55 01/29/18 08:55 01/29/18 08:55 Oxygen Delivery Method Room Air Weight: 183 lb 3.266 oz Body Mass Index (BMI) 27.8 Intake and Output for Last 24 Hours 01/27/18 01/28/18 01/29/18 23:59 23:59 23:59 Intake Total 1288 / 1288 3002 / 3002 1390 / 1390 Output Total 350 / 350 Balance 938 / 938 3002 / 3002 1390 / 1390 Microbiology Past 72 Hours 01/24/18 12:56 Gram Stain - Final Tissue - Leg, Left Wound Culture - Final Staphylococcus epidermidis Anaerobic Culture - Final No anaerobic bacteria isolated. 01/24/18 12:56 Gram Stain - Final Tissue - Leg, Left Wound Culture - Final Staphylococcus epidermidis Anaerobic Culture - Final No anaerobic bacteria isolated. 01/24/18 12:56 Fungal Smear - Final Tissue - Leg, Left 01/24/18 12:56 Fungal Smear - Final Tissue - Leg, Left Medical Necessity - Tobacco Use Smoking Status: Former smoker Assessment/Plan All Active Problems (Last Updated 12/16/17 @ 17:12 by Sari Hawk DO) Other complications of skin graft (allograft) (autograft) (Acute) Failed skin graft (Acute) Complication of skin graft (Acute) Ulcers of both lower legs (Acute) Wound, open, lower limb with complication (Acute) Infected open wound (Acute) Brain tumor (Acute) MRSA (methicillin resistant staph aureus) culture positive (Acute) Debility, unspecified (Acute) 1. Nonhealing ulcer left lower posterior leg in Achilles area. 2. Nonhealing ulcer left lower anterior leg. 3. Brain tumor - receiving chemotherapy. 4. s/p surgical preparation left lower posterior leg in Achilles area with excisional debridement nonhealing ulcer and reconstruction with STSG from left flank (5 cm2) and surgical preparation left lower anterior leg with excisional debridement nonhealing ulcer and reconstruction with STSG from left flank ( 15.75 cm2) and placement of CHELSEA NPWT device. 5. MRSE. Operative culture shows MRSE in both cultures. Continue IV Vancomycin and Levaquin. Will switch the Levaquin to po when discharged to TCU. Skin graft dressing is dry and the CHELSEA NPWT device is functional. Will remove skin graft dressing on Tuesday01/30/18. Resistant Staph can compromise the skin grafts especially because of her immunocompromised state. PICC line has been placed. She will need salvage determiner IV antibiotics with Vancomycin. TCU evaluation in process. After discharge followup at the [facility]ound Center.
[2018-01-29 15:02] VITALS: BP 106/72; PULSE 59; RESP 16; TEMP 37.2; O2SAT 98
[2018-01-29 21:15] VITALS: BP 141/80; PULSE 63; RESP 16; TEMP 36.5; O2SAT 98
[2018-01-29] MEDS: LORazepam 0.5 MG Tablet PO (22:13)
[2018-01-30 04:20] VITALS: BP 126/73; PULSE 52; RESP 16; TEMP 36.8; O2SAT 95
[2018-01-30] MEDS: 0.9% NaCl Peripheral Flush Adult/Peds IV (04:30)
[2018-01-30] MEDS: Lactated Ringers 1,000 ML 60 ML IV (04:30)
[2018-01-30 04:35] LABS: Hematocrit 35.9 % (37-47); Hemoglobin 11.7 g/dl (12.0-15.0); Mean Corp Hgb Conc 32.6 g/gl (32-36); Mean Corpuscular Hgb 33.2 pg (27.0-32.0); Mean Platelet Vol. 9.2 fl (6.2-12.0); Platelet Count 149 K/mm3 (150-450); RBC Distribution Width CV 13.4 % (11.6-14.6); RBC Distribution Width SD 48.9 fl (35.1-43.9); Red Blood Count 3.52 M/mm3 (4.2-5.4); White Blood Count 3.6 K/mm3 (4.4-11.0)
[2018-01-30 04:46] LABS: Anion Gap 7 (5-15); BUN 18 mg/dL (7-18); Calcium,Total 8.8 mg/dL (8.5-10.1); Chloride 107 mmol/L (98-107); Creatinine, Serum 0.75 mg/dL (0.55-1.02); EST Glomerular Filtration Rate 84 mL/min (>60); Est Glom Filt Rate - Afr Amer 102 mL/min (>60); Estimated Creatinine Clearance 81.47 ml/min; Glucose 93 mg/dL (74-106); Potassium 3.7 mmol/L (3.5-5.1); Sodium Level 145 mmol/L (136-145)
[2018-01-30 04:49] LABS: Scan Indicated on CBC? Y/N NO
[2018-01-30] MEDS: Enoxaparin 30 MG/0.3 ML Syringe SC (06:30)
[2018-01-30 08:06] VITALS: BP 118/89; PULSE 58; RESP 18; TEMP 36.3; O2SAT 98
[2018-01-30] MEDS: Docusate Sodium 100 MG Capsule PO (08:08)
[2018-01-30] MEDS: Gabapentin 300 MG Capsule PO ×2 (08:08→17:02)
[2018-01-30] MEDS: Multivitamins,Therapeutic Tablet 1 TABLET PO (08:09)
[2018-01-30] MEDS: levETIRAcetam 750 MG Tablet PO ×2 (08:10→21:26)
[2018-01-30] MEDS: Famotidine 20 MG Tablet PO ×2 (08:10→21:26)
[2018-01-30] MEDS: Polyethylene Glycol 3350 17 GM PACKET PO (08:10)
[2018-01-30] MEDS: Calcium (Elemental) 500 MG Tablet PO (08:12)
[2018-01-30] MEDS: Sertraline 50 MG Tablet 25 MG PO (08:13)
[2018-01-30] MEDS: levoFLOXacin IV 500 MG/100 ML BAG 100 MG IV (08:13)
[2018-01-30] MEDS: Acetaminophen 500 MG Tablet 1000 MG PO (08:15)
[2018-01-30 08:24] VITALS: PULSE 58
[2018-01-30 09:08] LABS: Vancomycin, Trough Level 12.6 ug/mL (5.0-15.0)
[2018-01-30] MEDS: oxyCODONE 5 MG Tablet 10 MG PO (09:27)
--- NOTE | 2018-01-30 10:16 | PCM.RX.CS ---
Consult Pharmacy has been consulted to manage selected antiobiotic: Vancomycin Type of Consult: Follow-up Suspected Infection: Skin/Soft tissue Prior Doses of Antibiotics Received/Current Regimen: VANCOMYCIN 750MG IV Q12HRS: 01/29 @0923, 2105 AND 01/30 @0927 Labs: Sodium 145 mmol/L (136-145) 01/30/18 04:20 Potassium 3.7 mmol/L (3.5-5.1) 01/30/18 04:20 Chloride 107 mmol/L (98-107) 01/30/18 04:20 Carbon Dioxide 31.0 mmol/L (21.0-32.0) 01/30/18 04:20 Anion Gap 7 (5-15) 01/30/18 04:20 BUN 18 mg/dL (7-18) 01/30/18 04:20 Creatinine 0.75 mg/dL (0.55-1.02) 01/30/18 04:20 Est GFR (MDRD) Af Amer 102 mL/min (>60) 01/30/18 04:20 Est GFR (MDRD) Non-Af 84 mL/min (>60) 01/30/18 04:20 BUN/Creatinine Ratio 24.0 RATIO (10-20) H 01/30/18 04:20 Glucose 93 mg/dL (74-106) 01/30/18 04:20 Vancomycin Trough 12.6 ug/mL (5.0-15.0) 01/30/18 08:20 Microbiology: Microbiology 01/24/18 12:56 Tissue - Leg, Left Gram Stain - Final 01/24/18 12:56 Tissue - Leg, Left Wound Culture - Final Staphylococcus epidermidis 01/24/18 12:56 Tissue - Leg, Left Anaerobic Culture - Final No anaerobic bacteria isolated. 01/24/18 12:56 Tissue - Leg, Left Gram Stain - Final 01/24/18 12:56 Tissue - Leg, Left Wound Culture - Final Staphylococcus epidermidis 01/24/18 12:56 Tissue - Leg, Left Anaerobic Culture - Final No anaerobic bacteria isolated. 01/24/18 12:56 Tissue - Leg, Left Fungal Smear - Final 01/24/18 12:56 Tissue - Leg, Left Fungal Smear - Final Weight used for dosin kg Estimated Creatinine Clearance: 81 ML/MIN Goal Trough: 10-15 mcg/mL Pharmacy Plan for Drug Dosing: A trough was drawn which resulted in a value of 12.6 (11.5hrs from last dose given). Will continue the current regimen given that the patient is in her goal range of 10-15. PLAN/RECOMMENDATIONS 1. Continue vancomycin 750mg IV Q12hrs 2. Trough reassessment scheduled for 02/03/18 @ 0830 3. Pharmacy Service will continue to monitor and adjust dosing as required.
[2018-01-30 14:55] VITALS: BP 111/71; PULSE 69; RESP 16; TEMP 36.8; O2SAT 97
[2018-01-30 19:53] VITALS: BP 113/68; PULSE 64; RESP 16; TEMP 36.6; O2SAT 95
--- NOTE | 2018-01-30 22:24 | PCM.PN.SRG ---
Subjective: Postop #6 Patient is resting comfortably. - Physical Exam General: Alert, Oriented x3 HEENT: PERRLA, EOMI Oral: Moist Mucosa Neck: Supple Abdomen: Soft, Non-Distended Skin: Ulcer/ Wound - Skin graft dressing was removed today. The skin graft on the anterior leg shows good adherence with about 90% take. Small amount of compromise with skin graft separation from the skin edge. The rest of the graft shows good vascular ingrowth. The posterior leg skin graft shows good adherence and 100% take and good vascular ingrowth. There was some moisture on the graft so a Silver dressing was applied followed by kerlix gauze and a compression nicky wrap., Incision - left flank donor incision is dry and intact. Mild bruising seen laterally. No evidence of hematoma. Neurological: Cranial nerves II-XII grossly intact Psych/Mental Status: Normal Affect, Appropriate Vital Signs Temp Pulse Resp BP Pulse Ox 97.8 F 64 16 113/68 95 01/30/18 19:53 01/30/18 19:53 01/30/18 19:53 01/30/18 19:53 01/30/18 19:53 Oxygen Delivery Method Room Air Weight: 183 lb 3.266 oz Body Mass Index (BMI) 27.8 Intake and Output for Last 24 Hours 01/28/18 01/29/18 01/30/18 23:59 23:59 23:59 Intake Total 3002 / 3002 2450 / 2450 3543 / 3543 Balance 3002 / 3002 2450 / 2450 3543 / 3543 Laboratory Tests Past 24 Hrs 01/30/18 01/30/18 01/30/18 04:20 04:20 08:20 WBC 3.6 L RBC 3.52 L Hgb 11.7 L Hct 35.9 L MCV 102.0 H MCH 33.2 H MCHC 32.6 RDW 13.4 RDW Differential 48.9 H Plt Count 149 L MPV 9.2 Sodium 145 Potassium 3.7 Chloride 107 Carbon Dioxide 31.0 Anion Gap 7 BUN 18 Creatinine 0.75 Estim Creat Clear Calc 81.47 Est GFR (MDRD) Af Amer 102 Est GFR (MDRD) Non-Af 84 BUN/Creatinine Ratio 24.0 H Glucose 93 Calcium 8.8 Vancomycin Trough 12.6 Medical Necessity - Tobacco Use Smoking Status: Former smoker Assessment/Plan All Active Problems (Last Updated 12/16/17 @ 17:12 by Sari Hawk DO) Other complications of skin graft (allograft) (autograft) (Acute) Failed skin graft (Acute) Complication of skin graft (Acute) Ulcers of both lower legs (Acute) Wound, open, lower limb with complication (Acute) Infected open wound (Acute) Brain tumor (Acute) MRSA (methicillin resistant staph aureus) culture positive (Acute) Debility, unspecified (Acute) 1. Nonhealing ulcer left lower posterior leg in Achilles area. 2. Nonhealing ulcer left lower anterior leg. 3. Brain tumor - receiving chemotherapy. 4. s/p surgical preparation left lower posterior leg in Achilles area with excisional debridement nonhealing ulcer and reconstruction with STSG from left flank (5 cm2) and surgical preparation left lower anterior leg with excisional debridement nonhealing ulcer and reconstruction with STSG from left flank (15.75 cm2) and placement of CHELSEA NPWT device. 5. MRSE. Operative culture shows MRSE in both cultures. Continue IV Vancomycin and Levaquin. Will switch the Levaquin to po when discharged to TCU. Skin graft dressing removed today. Both skin grafts show good adherence with 90% take for the anterior graft and 100% take for the posterior graft. Good vascular ingrowth is noted. There is a small area of the anterior skin graft that is showing some compromise with graft separation inferiorly at the skin edge. Some moisture is noted on the grafts. Will dress them with Aquacel Silver daily followed by Kerlix gauze and a compression NICKY wrap. i Resistant Staph can compromise the skin grafts especially because of her immunocompromised state. PICC line has been placed. She will need aligning checker IV antibiotics with Vancomycin. Anticipate at least 3-4 weeks but maybe as long as 4-6 weeks. The length of time will be tempered by the healing of the grafts and the need to begin HBO treatments in an expeditious fashion to help salvage the compromised graft. TCU evaluation in process. After discharge followup at the Wound Center. Will need HBO treatments for some compromise of the graft.
[2018-01-31 01:50] VITALS: BP 138/79; PULSE 56; RESP 16; TEMP 36.7; O2SAT 97
[2018-01-31] MEDS: Enoxaparin 30 MG/0.3 ML Syringe SC (05:33)
[2018-01-31 08:05] VITALS: BP 106/76; PULSE 67; RESP 18; TEMP 36.8; O2SAT 94
[2018-01-31] MEDS: levoFLOXacin IV 500 MG/100 ML BAG 100 MG IV (08:05)
[2018-01-31] MEDS: Sertraline 50 MG Tablet 25 MG PO (08:06)
[2018-01-31] MEDS: Gabapentin 300 MG Capsule PO ×2 (08:06→16:50)
[2018-01-31] MEDS: levETIRAcetam 750 MG Tablet PO (08:06)
[2018-01-31] MEDS: Famotidine 20 MG Tablet PO (08:06)
[2018-01-31] MEDS: Docusate Sodium 100 MG Capsule PO (08:06)
[2018-01-31] MEDS: Acetaminophen 500 MG Tablet 1000 MG PO (08:07)
[2018-01-31] MEDS: Multivitamins,Therapeutic Tablet 1 TABLET PO (08:07)
[2018-01-31] MEDS: Calcium (Elemental) 500 MG Tablet PO (08:07)
[2018-01-31] MEDS: Polyethylene Glycol 3350 17 GM PACKET PO (08:08)
--- NOTE | 2018-01-31 08:54 | CASEMGMT ---
Addendum entered by Pricilla Cintron 01/31/18 13:44: RN TODD Kennedy updated Dr. Moya that pt is able to discharge to TCU today. Transfer to extended care facility sheet on pt's chart. Original Note: Social Work Note SW received message from Anabella in TCU stating that pre-cert has been obtained and pt is able to discharge to TCU. SW updated pt of this. Pt denied additional needs or concerns at this time. Plan: Pt to discharge to TCU today Pricilla Cintron [employer], ELECTRICAL ENGINEERING DRAFTSPERSON
[2018-01-31] MEDS: oxyCODONE 5 MG Tablet 10 MG PO (09:27)
[2018-01-31 14:37] VITALS: BP 110/72; PULSE 64; RESP 16; TEMP 36.7; O2SAT 95
--- NOTE | 2018-01-31 17:03 | PN.SURG_ITS ---
Subjective: Postop #7 Patient is resting comfortably. - Physical Exam General: Alert, Oriented x3 HEENT: PERRLA, EOMI Oral: Moist Mucosa Neck: Supple Abdomen: Soft, Non-Distended Skin: Ulcer/ Wound - Skin graft shows good healing. The skin graft on the anterior leg shows good adherence with about 90% take. Small amount of compromise inferiorly at the skin edge. It appears to be skin graft from the skin edge folding over leading to maceration and moisture on that edge of the graft. The rest of the graft shows good vascular ingrowth. The posterior leg skin graft shows good adherence and 100% take and good vascular ingrowth. Because of the small amount of moisture on the graft, will continue Silver dressings followed by kerlix gauze and a compression nicky wrap., Incision - left flank donor incision is dry and intact. Mild bruising seen laterally. No evidence of hematoma. Neurological: Cranial nerves II-XII grossly intact Psych/Mental Status: Normal Affect, Appropriate Vital Signs Temp Pulse Resp BP Pulse Ox 98.0 F 64 16 110/72 95 01/31/18 14:37 01/31/18 14:37 01/31/18 14:37 01/31/18 14:37 01/31/18 14:37 Oxygen Delivery Method Room Air Weight: 183 lb 3.266 oz Body Mass Index (BMI) 27.8 Intake and Output for Last 24 Hours 01/29/18 01/30/18 01/31/18 23:59 23:59 23:59 Intake Total 2450 / 2450 3543 / 3543 1698 / 1698 Balance 2450 / 2450 3543 / 3543 1698 / 1698 Pathology - chronic inflammation and no carcinoma seen. Medical Necessity - Tobacco Use Smoking Status: Former smoker Assessment/Plan All Active Problems (Last Updated 12/16/17 @ 17:12 by Sari Hawk DO) Other complications of skin graft (allograft) (autograft) (Acute) Failed skin graft (Acute) Complication of skin graft (Acute) Wound, open, lower limb with complication (Acute) Infected open wound (Acute) Brain tumor (Acute) MRSA (methicillin resistant staph aureus) culture positive (Acute) 1. Nonhealing ulcer left lower posterior leg in Achilles area. 2. Nonhealing ulcer left lower anterior leg. 3. Brain tumor - receiving chemotherapy. 4. s/p surgical preparation left lower posterior leg in Achilles area with excisional debridement nonhealing ulcer and reconstruction with STSG from left flank (5 cm2) and surgical preparation left lower anterior leg with excisional debridement nonhealing ulcer and reconstruction with STSG from left flank ( 15.75 cm2) and placement of CHELSEA NPWT device. 5. MRSE. Operative culture shows MRSE in both cultures. Continue IV Vancomycin and Levaquin. Will switch the Levaquin to po when discharged to TCU. Both skin grafts show good adherence with 90% take for the anterior graft and 100% take for the posterior graft. Good vascular ingrowth is noted. There is a small area of the anterior skin graft that is showing some compromise. It appears to be skin graft from the skin edge folding over leading to maceration and moisture on that edge of the graft. Continue Aquacel Silver daily followed by Kerlix gauze and a compression NICKY wrap. Resistant Staph can compromise the skin grafts especially because of her immunocompromised state. PICC line has been placed. She will need medical terminologist IV antibiotics with Vancomycin. Anticipate at least 3-4 weeks but maybe as long as 4-6 weeks. The length of time will be tempered by the healing of the grafts and the need to begin HBO treatments in an expeditious fashion to help salvage the compromised graft. TCU has been approved. Will discharge today. After discharge fro TCU, followup at the Wound Center. Will need HBO treatments for some compromise of the graft.
--- NOTE | 2018-01-31 17:03 | PCM.TXEXTCAR ---
- Diet 01/24/18 12:56 Diet: Regular Diet - Routine Orders/Code Status Routine Lab Work: CBC - qMonday., BMP - qMonday., - - ESR, CRP, Vancomycin Trough qMonday. Pharmacy to dose. Code Status: Full Code - Wound(s) LLE Wound Type: Surgical Incision - skin graft left anterior leg and left posterior leg. Dressing Change: NICKY LEFT FLANK Wound Type: Surgical Incision - donor incision left flank. Dressing Change: AntiMicrobial (Aquacel AG, etc) - Place Aquacel Silver to both skin grafts left anterior leg and left posterior leg daily. Place dry gauze to donor incision left flank. To be changed every 2-3 days prn. - Suggestions for Active Care Change Position every (hours): 0 - patient is ambulatory. Hours to sit in a chair: 6 - prn. Times a day to sit in chair: 3 - prn. - Therapies Weight Bearing: Full weight bearing Extremity Affected:: Left Lower - skin grafts on left leg. Physical Therapy: Eval and Treat Occupational Therapy: Eval and Treat - Allergies/Procedures Done in Hospital Allergies/Adverse Reactions: Allergies adhesive tape Adverse Reaction (Verified 01/19/18 10:54) VERY THIN STEROID SKIN WILL REMOVE SKIN IF ON TOO LONG Procedures: PICC line placement, Wound Vac placement - Type of Care/Length of Stay Estimated LOS: Convalescent Care Less Than 30 days Type of Care Needed: Skilled Rehab Potential: Good Prognosis: Good - Additional Orders/Day of Discharge H&P will serve as current which was dated: 01/24/18 Day of Discharge: 01/31/18 - Dietary and Speech Recommendations Dietitian Recommendations/Changes: Rec continue on regular diet. Rec continue with 1 packet Rodger BID for wound healing. - Follow Up Care Primary Care Physician: Loc Arizmendi DO [Primary Care Provider] - Please Follow Up With: Kei Moya MD When: 3 weeks at wound center. call [phone] for appt.
--- NOTE | 2018-01-31 17:29 | PCM.DC.SUM ---
Discharge Date and Diagnosis Date of Admission: 01/24/18 Date of Discharge: 01/31/18 - Primary Discharge Diagnosis Nonhealing ulcer left lower posterior leg in Achilles area. Nonhealing ulcer left lower anterior leg. - Secondary Discharge Diagnosis Glioblastoma multiforme. Brain tumor - receiving chemotherapy. Hospital Course and Treatment Imaging Results: None. CONSULTATIONS None. Operations: - - 01/24/18 - 1. Surgical preparation left lower posterior leg in Achilles area with excisional debridement nonhealing ulcer and reconstruction with STSG from left flank (5 cm2). 2. Surgical preparation left lower anterior leg with excisional debridement nonhealing ulcer and reconstruction with STSG from left flank (15.75 cm2) and placement of CHELSEA NPWT device. Procedures: PICC line placement Summary of Care Provided: 57-year-old white female is being treated for a brain tumor. She was started on chemotherapy and has received several rounds of her treatment. Side effects of the chemo is vasoconstriction. Patient has been on prednisone therapy also for the past year. Thin skin has caused her to bleed and develop open sores on her lower extremities from minor trauma. Patient's family says they start as a superficial ulcer from minor trauma and develops into a huge ulcer. She underwent surgery for these ulcers on 08/02/17 where she underwent excisional debridement nonhealing ulcer left posterior leg with STSG reconstruction from lower anterior abdominal wall (9 cm2) and excisional debridement nonhealing ulcer left lateral leg with STSG reconstruction from lower anterior abdominal wall (30.5 cm2) and excisional debridement nonhealing ulcer left anterior lower leg with STSG reconstruction from lower anterior abdominal wall (27 cm2) and excisional debridement nonhealing ulcer right lateral leg with STSG reconstruction from lower anterior abdominal wall (14.25 cm2) and excisional debridement nonhealing ulcer right anterior superior leg with STSG reconstruction from lower anterior abdominal wall (7 cm2) and excisional debridement nonhealing ulcer right lower leg/medial ankle with STSG reconstruction from lower anterior abdominal wall (24.5 cm2). Postop she developed some compromise to the skin grafts and underwent HBO treatments. Most of the wounds healed except for one on the left lower anterior leg and the left lower posterior leg in Achilles area. This Achilles area ulcer developed after the last surgery. [facility] and wound care with a Silver dressing has been done. A recent wound culture was done on 12/26/17 and it showed Staphylococcus epidermidis and Corynebacterium striatum. She was started on Doxycycline. She presents at this time for further operative debridement and skin grafting. She will also continue HBO treatments postop. Once healed, she can resume her chemotherapy for her brain tumor. On 01/24/18, the patient went to the operating room and underwent surgical preparation left lower posterior leg in Achilles area with excisional debridement nonhealing ulcer and reconstruction with STSG from left flank (5 cm2) and surgical preparation left lower anterior leg with excisional debridement nonhealing ulcer and reconstruction with STSG from left flank (15.75 cm2) and placement of CHELSEA NPWT device. She tolerated the procedure well. Her hospital course was uneventful. She was treated perioperatively with Vancomycin and Levaquin. Operative cultures showed MRSE in both ulcerations. With her immunocompromised state from the brain cancer, I wanted to be aggressive in treatment of the Staph infection since it can be detrimental to healing skin grafts. Therefore a PICC line was placed. Will continue Vancomycin for 3-4 weeks. She was evaluated for TCU since it was felt she could not go home with IV antibiotics. There was the fear she would accidentally give herself the antibiotic at the wrong time with the risk of hearing loss and kidney dysfunction. Her family they could not be there 24/. TCU was finally approved on postop day #7, and she was discharged to TCU. Condition upon discharge was good. Discharge Diet: No Restrictions, - - encourage nutritional supplementation with protein to help the healing process. May shower in (days): 2 - at the time of the dressing change May resume sexual activity in: No Restrictions Weight Bearing Status: Weight bearing as tolerated Keep extremity elevated above heart level: Left Leg Call your doctor if your incision/area has: Continuous Slow Oozing, Sudden Increased Bleeding, Increased Pain/ Swelling, Increased Redness, Foul Smelling Discharge, Swelling at the incision site Call your doctor if you observe: Fever of 101 or Higher, Coldness, Increased Pain, Shortness of breath, Chest pain, Calf discomfort, Uncontrolled pain Suture Line Care: - - dry dressings to left flank donor incision. Change Dressing in (Days):: 2 - Aquacel Silver dressings to skin grafts left leg Cleanse incision/area with: Soap & Water - may cleanse the skin grafts with soap and water at the time of the dressing change., - Additional Dressing/Incision Instructions:: After applying the Aquacel Silver, wrap with Kerlix gauze followed by a compression NICKY wrap. Home Medications: Medications to take at Discharge Cholecalciferol (Vitamin D3) [Vitamin D3] 5,000 unit PO DAILY 03/02/17 Dexamethasone 2.5 mg PO DAILY 03/02/17 Famotidine [Pepcid] 20 mg PO BID 03/02/17 Multivitamin [Daily Multiple Vitamin] 1 each PO DAILY 03/02/17 Ondansetron [Zofran] 8 mg PO Q8H PRN PRN 03/02/17 Levetiracetam 750 mg PO BID 05/03/17 Calcium (Elemental) [Os-Guido 500] 500 mg PO DAILY 07/08/17 Lactobacillus Acidophilus [Acidophilus Lactobacilli] 1 each PO DAILY 07/08/17 proMETHazine tablet [Phenergan tablet] 25 mg PO Q4H PRN PRN 07/08/17 Gabapentin [Neurontin] 300 mg PO BIDCM 30 Days #60 08/17/17 Acetaminophen [Tylenol Extra Strength] 1,000 mg PO DAILY 01/24/18 Sertraline HCl [Zoloft] 25 mg PO DAILY 01/24/18 Diazepam [Valium] 5 mg PO 4X/DAY PRN PRN #30 tab 01/31/18 Docusate Sodium [Colace] 100 mg PO BID 01/31/18 Nutritional Supplement [Rodger - ORANGE FLAVOR] 1 packet PO BIDCM 01/31/18 Ondansetron [Zofran] 4 mg IV Q6H PRN PRN vial 01/31/18 Oxycodone [Oxyir] 10 mg PO Q4H PRN PRN 7 Days #60 tab 01/31/18 Polyethylene Glycol 3350 [Miralax] 17 gm PO DAILY 01/31/18 Potassium Chloride [K-Dur] 20 meq PO DAILYCM 01/31/18 Vancomycin IV 750 mg IV Q12H 01/31/18 levoFLOXacin IV [Levaquin 500mg IVPB] 500 mg IV Q24 01/31/18 Following Prescrptions Were Given to Patient: Oxycodone [Oxyir] 10 mg PO Q4H PRN PRN 7 Days #60 tab PRN Reason: Severe Pain (6-04/26) Diazepam [Valium] 5 mg PO 4X/DAY PRN PRN #30 tab PRN Reason: Spasms Primary Care Physician: Loc Arizmendi DO [Primary Care Provider] - Please Follow Up With: Kei Moya MD - call [phone] if any questions. When: 02/20/[address] [facility] center at 900 am. Disposition: Care Home facility Minutes spent on discharge:: 35 Patient Condition:: Good Medical Necessity - Tobacco Use Smoking Status: Former smoker Meaningful Use Info Meaningful Use Diagnoses (Choose all that apply): None applicable
--- NOTE | 2018-01-31 17:44 | NURSING ---
call placed to tcu report given to bianka
== END 2018-01-31 17:51 | disposition skilled nursing facility (03) | DRG 574 ==
LOC: SDC 01-25 12:52 → MS2 01-25 12:52 → MS3 01-27 16:56
PROVIDERS: Admitting Provider Surgery; Family Provider Student in an Organized Health Care Education/Training Program; PCP Student in an Organized Health Care Education/Training Program; Visit Provider Surgery
PROC: 0JBP0ZZ Excision of Left Lower Leg Subcutaneous Tissue and Fascia, Open Approach (ICD-10-PCS; principal; 2018-01-24 09:15)
DX: L97.829 Non-pressure chronic ulcer of other part of left lower leg with unspecified severity (principal); T86.821 Skin graft (allograft) (autograft) failure; C71.9 Malignant neoplasm of brain, unspecified; Z79.899 Other long term (current) drug therapy; B95.7 Other staphylococcus as the cause of diseases classified elsewhere
CPT/HCPCS: 36415; 36569; 80048; 80076; 80202; 84134; 85027; 85610; 85730; 87070; 87075; 87077; 87102; 87186; 87205; 87206; 88304; 97110; 97116; 97162; 97165; 97530; 97535; 97802; J7050; J7120; A4216; J2405

== ENCOUNTER 2018-01-31 18:01 | Inpatient (IN) | payer BC, SELFPAY ==
[2018-01-31 18:13] VITALS: BP 137/89; PULSE 77; RESP 16; TEMP 35.8; O2SAT 93
--- NOTE | 2018-01-31 18:13 | NURSING ---
Pt arrived at 18:00 via wheelchair from [facility]
[2018-01-31] MEDS: oxyCODONE 5 MG Tablet 10 MG PO (20:23)
--- NOTE | 2018-01-31 21:03 | PCM.HP.STD ---
Problem List (1) GERD (gastroesophageal reflux disease) Status: Chronic (2) Nausea Status: Chronic (3) Seizure disorder Status: Chronic (4) Hypertension Status: Chronic (5) Anxiety Status: Chronic (6) Chronic pain Status: Chronic (7) Neuropathic pain Status: Chronic (8) Glioblastoma multiforme Status: Chronic (9) Ulcers of both lower legs Status: Chronic Comment: multiple infected ulcers bilateral legs L97.919 (10) Debility, unspecified Status: Chronic History of Present Illness Date of Admission: 01/31/18 Chief Complaint: Here for rehabilitation, strengthening, wound care, intravenous antibiotics. The patient is a 57 year old Female with below past medical history significant for glioblastoma multiforme. 01/24/[address] Moya for non-healing ulcers of left anterior, posterior leg. Patient has been continuing on chemotherapy, prednisone for treatment of GM. The prednisone caused severe skin atrophy predisposing her to skin ulcers from minor trauma. 12/26/2017 Wound culture grew Staph Epi, Corynebacterium striatum. Patient was treated with Doxycycline. 01/24/2018 Dr. Moya performed excisional debridement of left lower extremity ulcers with skin grafting. 01/31/2018 Admit to TCU for rehabilitation, strengthening, wound care, intravenous antibiotics prior to discharge home with spouse. Past Medical History Past Medical History (Chronic Problems): Chronic Problems (Last Updated 12/16/17 @ 17:12 by Sari Hawk DO) GERD (gastroesophageal reflux disease) (Chronic) Nausea (Chronic) Seizure disorder (Chronic) Hypertension (Chronic) Anxiety (Chronic) Chronic pain (Chronic) Neuropathic pain (Chronic) Glioblastoma multiforme (Chronic) Ulcers of both lower legs (Chronic) multiple infected ulcers bilateral legs L97.919 Debility, unspecified (Chronic) Medical History: Medical History (Last Updated 12/16/17 @ 17:12 by Sari Hawk DO) Other complications of skin graft (allograft) (autograft) (Acute) T86.828 Failed skin graft (Acute) T86.821 Ulcers of both lower legs (Chronic) L97.919, L97.929 multiple infected ulcers bilateral legs L97.919 Allergies adhesive tape Adverse Reaction (Verified 01/19/18 10:54) VERY THIN STEROID SKIN WILL REMOVE SKIN IF ON TOO LONG Home Medications: Ambulatory Orders Medication Instructions Recorded Cholecalciferol (Vitamin D3) 5,000 unit PO DAILY 03/02/17 [Vitamin D3] Dexamethasone 2.5 mg PO DAILY 03/02/17 Famotidine [Pepcid] 20 mg PO BID 03/02/17 Multivitamin [Daily Multiple 1 each PO DAILY 03/02/17 Vitamin] Ondansetron [Zofran] 8 mg PO Q8H PRN PRN 03/02/17 Levetiracetam 750 mg PO BID 05/03/17 Calcium (Elemental) [Os-Guido 500] 500 mg PO DAILY 07/08/17 Lactobacillus Acidophilus 1 each PO DAILY 07/08/17 [Acidophilus Lactobacilli] proMETHazine tablet [Phenergan 25 mg PO Q4H PRN PRN 07/08/17 tablet] Gabapentin [Neurontin] 300 mg PO BIDCM 30 Days #60 08/17/17 Acetaminophen [Tylenol Extra 1,000 mg PO DAILY 01/24/18 Strength] Sertraline HCl [Zoloft] 25 mg PO DAILY 01/24/18 Diazepam [Valium] 5 mg PO 4X/DAY PRN PRN #30 tab 01/31/18 Docusate Sodium [Colace] 100 mg PO BID 01/31/18 Nutritional Supplement [Rodger - 1 packet PO BIDCM 01/31/18 ORANGE FLAVOR] Ondansetron [Zofran] 4 mg IV Q6H PRN PRN vial 01/31/18 Oxycodone [Oxyir] 10 mg PO Q4H PRN PRN 7 Days #60 tab 01/31/18 Polyethylene Glycol 3350 [Miralax] 17 gm PO DAILY 01/31/18 Potassium Chloride [K-Dur] 20 meq PO DAILYCM 01/31/18 Vancomycin IV 750 mg IV Q12H 01/31/18 levoFLOXacin IV [Levaquin 500mg 500 mg IV Q24 01/31/18 IVPB] Surgical History: dilatation and curettage, - - Brain tumor resection 10/2015, leg ulcer surgery. 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 Lives: Spouse/ Significant Other Smoking Status: Former smoker Tobacco Use: Non-smoker Alcohol: None Drugs: None - *Family History Maternal History Items: No pertinent history Paternal History Items: No pertinent history Review of Systems Constitutional: Denies: Chills, Fever, Weight Change HEENT: Denies: Head Aches, Sinus Congestion, Sinus Drainage Cardiovascular: Denies: Chest Pain, Palpitations Respiratory: Denies: Cough, Shortness of breath at rest, Sputum production Gastrointestinal: Denies: Abdominal Pain, Nausea, Vomiting Genitourinary: Denies: Dysuria Musculoskeletal: Denies: Joint Pain, Joint Tenderness Skin: Denies: Rash, Wounds Neurological: Denies: Numbness, Tingling, Focal weakness Psychiatric: Denies: Anxiety, Depression, Homicidal Ideations, Suicidal Ideations Hematologic/ Lymphatic: Denies: Easy Bruising, Easy Bleeding VTE Information - Inpt Only VTE Present on Admission: No VTE Mechan Device Prophylaxis: Knee High DANELLE Hose VTE Pharm Prophylaxis ordered?: Yes - Physical Exam General: Alert, Oriented x3, Cooperative HEENT: Atraumatic, PERRLA, EOMI, Normocephalic Neck: Supple, No JVD, Negative Carotid Bruits Lungs: Clear to auscultation, Normal air movement Cardiovascular: Regular rate, No murmurs Abdomen: Bowel Sounds Present, Soft, Non Tender Extremities: No edema, Capillary Refill Less than 3 Seconds, - - Left lower extremity wounds dressed. Skin: No rashes, No breakdown Musculoskeletal: No Tenderness to Palpation of Joints or Extremities Neurological: Cranial nerves II-XII grossly intact Psych/Mental Status: Normal Affect, Appropriate Assessment/Plan All Active Problems (Last Updated 12/16/17 @ 17:12 by Sari Hawk DO) Other complications of skin graft (allograft) (autograft) (Acute) Failed skin graft (Acute) Complication of skin graft (Acute) Wound, open, lower limb with complication (Acute) Infected open wound (Acute) Brain tumor (Acute) MRSA (methicillin resistant staph aureus) culture positive (Acute) 57 year old female with below past medical history significant for glioblastoma multiforme, hospitalized for left lower extremity ulcer surgery 01/24/[address] Moya, admitted to TCU for rehabilitation, strengthening, wound care, intravenous antibiotics, prior to discharge home with spouse. Debility - PT/OT. Pain - Tylenol 1000MG daily, Oxycodone 10MG Q4H PRN severe pain. Bowel - Miralax 17GM daily, Senna/colace 2 tablets BID, Dulcolax 10MG PO daily PRN. Pneumonia vaccination - Administer Prevnar 13 and/or Pneumovax 23 as necessary. DVT prophylaxis - Lovenox 40MG SC daily. Calcium deficiency - Os-Guido 500MG daily. Vitamin D deficiency - D3 5000IU daily. Glioblastoma Multiforme - Decadron 2.5MG daily. Anxiety - Valium 5MG 4x/day PRN. GERD - Famotidine 20MG BID. Neuropathic pain - Gabapentin 300MG BID. GI prophylaxis - Lactobacillus 1 tablet daily. Seizure Disorder - Keppra 750MG BID. S. Epi/C. Striatum infection - Levaquin 500MG IV Q24H, Vancomycin 750MG IV Q12H, stop date per Dr. Moya. Nutrition - Rodger 1 packet BID, MVI daily. Nausea - Zofran 4MG IV Q6H PRN, 8MG PO Q8H PRN, Phenergan 25MG Q4H PRN. Hypokalemia - K-Dur 20MEQ daily. Depression - Sertraline 25MG daily.
--- NOTE | 2018-01-31 21:14 | HP.PCM_ITS ---
Problem List (1) GERD (gastroesophageal reflux disease) Status: Chronic (2) Nausea Status: Chronic (3) Seizure disorder Status: Chronic (4) Hypertension Status: Chronic (5) Anxiety Status: Chronic (6) Chronic pain Status: Chronic (7) Neuropathic pain Status: Chronic (8) Glioblastoma multiforme Status: Chronic (9) Ulcers of both lower legs Status: Chronic Comment: multiple infected ulcers bilateral legs L97.919 (10) Debility, unspecified Status: Chronic History of Present Illness Date of Admission: 01/31/18 Chief Complaint: Here for rehabilitation, strengthening, wound care, intravenous antibiotics. The patient is a 57 year old Female with below past medical history significant for glioblastoma multiforme. 01/24/[address] Moya for non-healing ulcers of left anterior, posterior leg. Patient has been continuing on chemotherapy, prednisone for treatment of GM. The prednisone caused severe skin atrophy predisposing her to skin ulcers from minor trauma. 12/26/2017 Wound culture grew Staph Epi, Corynebacterium striatum. Patient was treated with Doxycycline. 01/24/2018 Dr. Moya performed excisional debridement of left lower extremity ulcers with skin grafting. 01/31/2018 Admit to TCU for rehabilitation, strengthening, wound care, intravenous antibiotics prior to discharge home with spouse. Past Medical History Past Medical History (Chronic Problems): Chronic Problems (Last Updated 12/16/17 @ 17:12 by Sari Hawk DO) GERD (gastroesophageal reflux disease) (Chronic) Nausea (Chronic) Seizure disorder (Chronic) Hypertension (Chronic) Anxiety (Chronic) Chronic pain (Chronic) Neuropathic pain (Chronic) Glioblastoma multiforme (Chronic) Ulcers of both lower legs (Chronic) multiple infected ulcers bilateral legs L97.919 Debility, unspecified (Chronic) Medical History: Medical History (Last Updated 12/16/17 @ 17:12 by Sari Hawk DO) Other complications of skin graft (allograft) (autograft) (Acute) T86.828 Failed skin graft (Acute) T86.821 Ulcers of both lower legs (Chronic) L97.919, L97.929 multiple infected ulcers bilateral legs L97.919 Allergies adhesive tape Adverse Reaction (Verified 01/19/18 10:54) VERY THIN STEROID SKIN WILL REMOVE SKIN IF ON TOO LONG Home Medications: Ambulatory Orders Medication Instructions Recorded Cholecalciferol (Vitamin D3) 5,000 unit PO DAILY 03/02/17 [Vitamin D3] Dexamethasone 2.5 mg PO DAILY 03/02/17 Famotidine [Pepcid] 20 mg PO BID 03/02/17 Multivitamin [Daily Multiple 1 each PO DAILY 03/02/17 Vitamin] Ondansetron [Zofran] 8 mg PO Q8H PRN PRN 03/02/17 Levetiracetam 750 mg PO BID 05/03/17 Calcium (Elemental) [Os-Guido 500] 500 mg PO DAILY 07/08/17 Lactobacillus Acidophilus 1 each PO DAILY 07/08/17 [Acidophilus Lactobacilli] proMETHazine tablet [Phenergan 25 mg PO Q4H PRN PRN 07/08/17 tablet] Gabapentin [Neurontin] 300 mg PO BIDCM 30 Days #60 08/17/17 Acetaminophen [Tylenol Extra 1,000 mg PO DAILY 01/24/18 Strength] Sertraline HCl [Zoloft] 25 mg PO DAILY 01/24/18 Diazepam [Valium] 5 mg PO 4X/DAY PRN PRN #30 tab 01/31/18 Docusate Sodium [Colace] 100 mg PO BID 01/31/18 Nutritional Supplement [Rodger - 1 packet PO BIDCM 01/31/18 ORANGE FLAVOR] Ondansetron [Zofran] 4 mg IV Q6H PRN PRN vial 01/31/18 Oxycodone [Oxyir] 10 mg PO Q4H PRN PRN 7 Days #60 tab 01/31/18 Polyethylene Glycol 3350 [Miralax] 17 gm PO DAILY 01/31/18 Potassium Chloride [K-Dur] 20 meq PO DAILYCM 01/31/18 Vancomycin IV 750 mg IV Q12H 01/31/18 levoFLOXacin IV [Levaquin 500mg 500 mg IV Q24 01/31/18 IVPB] Surgical History: dilatation and curettage, - - Brain tumor resection 10/2015, leg ulcer surgery. 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 Lives: Spouse/ Significant Other Smoking Status: Former smoker Tobacco Use: Non-smoker Alcohol: None Drugs: None - *Family History Maternal History Items: No pertinent history Paternal History Items: No pertinent history Review of Systems Constitutional: Denies: Chills, Fever, Weight Change HEENT: Denies: Head Aches, Sinus Congestion, Sinus Drainage Cardiovascular: Denies: Chest Pain, Palpitations Respiratory: Denies: Cough, Shortness of breath at rest, Sputum production Gastrointestinal: Denies: Abdominal Pain, Nausea, Vomiting Genitourinary: Denies: Dysuria Musculoskeletal: Denies: Joint Pain, Joint Tenderness Skin: Denies: Rash, Wounds Neurological: Denies: Numbness, Tingling, Focal weakness Psychiatric: Denies: Anxiety, Depression, Homicidal Ideations, Suicidal Ideations Hematologic/ Lymphatic: Denies: Easy Bruising, Easy Bleeding VTE Information - Inpt Only VTE Present on Admission: No VTE Mechan Device Prophylaxis: Knee High DANELLE Hose VTE Pharm Prophylaxis ordered?: Yes - Physical Exam General: Alert, Oriented x3, Cooperative HEENT: Atraumatic, PERRLA, EOMI, Normocephalic Neck: Supple, No JVD, Negative Carotid Bruits Lungs: Clear to auscultation, Normal air movement Cardiovascular: Regular rate, No murmurs Abdomen: Bowel Sounds Present, Soft, Non Tender Extremities: No edema, Capillary Refill Less than 3 Seconds, - - Left lower extremity wounds dressed. Skin: No rashes, No breakdown Musculoskeletal: No Tenderness to Palpation of Joints or Extremities Neurological: Cranial nerves II-XII grossly intact Psych/Mental Status: Normal Affect, Appropriate Assessment/Plan All Active Problems (Last Updated 12/16/17 @ 17:12 by Sari Hawk DO) Other complications of skin graft (allograft) (autograft) (Acute) Failed skin graft (Acute) Complication of skin graft (Acute) Wound, open, lower limb with complication (Acute) Infected open wound (Acute) Brain tumor (Acute) MRSA (methicillin resistant staph aureus) culture positive (Acute) 57 year old female with below past medical history significant for glioblastoma multiforme, hospitalized for left lower extremity ulcer surgery 01/24/[address] Moya, admitted to TCU for rehabilitation, strengthening, wound care, intravenous antibiotics, prior to discharge home with spouse. * Debility - PT/OT. * Pain - Tylenol 1000MG daily, Oxycodone 10MG Q4H PRN severe pain. * Bowel - Miralax 17GM daily, Senna/colace 2 tablets BID, Dulcolax 10MG PO daily PRN. * Pneumonia vaccination - Administer Prevnar 13 and/or Pneumovax 23 as necessary. * DVT prophylaxis - Lovenox 40MG SC daily. * Calcium deficiency - Os-Guido 500MG daily. * Vitamin D deficiency - D3 5000IU daily. * Glioblastoma Multiforme - Decadron 2.5MG daily. * Anxiety - Valium 5MG 4x/day PRN. * GERD - Famotidine 20MG BID. * Neuropathic pain - Gabapentin 300MG BID. * GI prophylaxis - Lactobacillus 1 tablet daily. * Seizure Disorder - Keppra 750MG BID. * S. Epi/C. Striatum infection - Levaquin 500MG IV Q24H, Vancomycin 750MG IV Q12H, stop date per Dr. Moya. * Nutrition - Rodger 1 packet BID, MVI daily. * Nausea - Zofran 4MG IV Q6H PRN, 8MG PO Q8H PRN, Phenergan 25MG Q4H PRN. * Hypokalemia - K-Dur 20MEQ daily. * Depression - Sertraline 25MG daily.
[2018-01-31] MEDS: diazePAM 5 MG Tablet PO (21:15)
[2018-01-31] MEDS: 0.9% NaCl PICC Flush IV (22:00)
[2018-01-31] MEDS: 0.9% NaCl IVPB Med Flush (250 mL) 15 ML IV (22:00)
[2018-01-31 22:09] VITALS: BMI 28.2
[2018-01-31 22:21] VITALS: BMI 28.3
[2018-02-01] MEDS: 0.9% NaCl PICC Flush IV ×6 (05:06→23:44)
[2018-02-01] MEDS: levETIRAcetam 750 MG Tablet PO ×2 (05:31→18:11)
[2018-02-01] MEDS: Polyethylene Glycol 3350 17 GM PACKET PO (05:32)
[2018-02-01] MEDS: Famotidine 20 MG Tablet PO ×2 (05:32→18:11)
[2018-02-01] MEDS: Acetaminophen 500 MG Tablet 1000 MG PO (05:32)
[2018-02-01] MEDS: Enoxaparin 40 MG/0.4 ML Syringe SC (05:32)
[2018-02-01] MEDS: Senna/Docusate Sodium 1 Tablet 2 TABLET PO ×2 (05:32→18:11)
[2018-02-01] MEDS: Sertraline 50 MG Tablet 25 MG PO (05:33)
[2018-02-01] MEDS: diazePAM 5 MG Tablet PO ×2 (05:34→22:17)
[2018-02-01] MEDS: oxyCODONE 5 MG Tablet 10 MG PO (05:34)
[2018-02-01 05:41] LABS: Anion Gap 9 (5-15); BUN 18 mg/dL (7-18); BUN/Creat Ratio 20.6 RATIO (10-20); Calcium,Total 9.3 mg/dL (8.5-10.1); Chloride 105 mmol/L (98-107); Creatinine, Serum 0.87 mg/dL (0.55-1.02); EST Glomerular Filtration Rate 70 mL/min (>60); Est Glom Filt Rate - Afr Amer 85 mL/min (>60); Estimated Creatinine Clearance 70.23 ml/min; Glucose 88 mg/dL (74-106); Potassium 3.8 mmol/L (3.5-5.1); Sodium Level 144 mmol/L (136-145)
[2018-02-01 06:26] LABS: Hematocrit 40.3 % (37-47); Hemoglobin 13.3 g/dl (12.0-15.0); Mean Corpuscular Hgb 33.4 pg (27.0-32.0); Mean Corpuscular Volume 101.3 fL (81-99); Mean Platelet Vol. 9.3 fl (6.2-12.0); Platelet Count 208 K/mm3 (150-450); RBC Distribution Width CV 13.5 % (11.6-14.6); RBC Distribution Width SD 49.4 fl (35.1-43.9); Red Blood Count 3.98 M/mm3 (4.2-5.4); White Blood Count 5.3 K/mm3 (4.4-11.0)
[2018-02-01 06:28] LABS: Differential Indicated MANUAL DIFF; POSITIVE COUNT YES; POSITIVE DIFFERENTIAL NO; POSITIVE MORPHOLOGY YES
[2018-02-01 07:20] LABS: Lymphocyte 20 % (19-41); Metamyelocyte 4 % (0-1); Monocyte 6 % (0-10); Neutrophil-Band 3 % (0-5); Neutrophil-Segmented 67 % (47-70); Total Cells Counted 100 (MANUAL DIFF)
[2018-02-01 07:21] LABS: Anisocytosis 1+; Macrocytosis 1+; Platelet Estimate ADEQUATE (ADEQ); Polychromasia 1+
[2018-02-01 07:22] LABS: Absolute Lymphocyte Count 1.06 X10^3/ul (0.83-4.51); Absolute Neutrophil Count 3.7 X10^3/uL (2.0-7.7)
[2018-02-01] MEDS: Multivitamins,Therapeutic Tablet 1 TABLET PO (08:30)
[2018-02-01] MEDS: Gabapentin 300 MG Capsule PO ×2 (08:30→18:11)
[2018-02-01] MEDS: Calcium (Elemental) 500 MG Tablet PO (08:30)
[2018-02-01] MEDS: Tuberculin,Purif.prot.deriv. 50 TU/ML Vial 5 ML ID (12:00)
[2018-02-01] MEDS: levoFLOXacin IV 500 MG/100 ML BAG 100 MG IV (12:08)
--- NOTE | 2018-02-01 12:57 | CASEMGMT ---
Insurance Clinical information sent. Pending continued stay approval at this time. Auth#[id number] Kendra GIVENS, SCHEDULING COORDINATOR
[2018-02-01 13:28] LABS: Pathologist Review Reviewed
[2018-02-01 16:00] VITALS: BP 105/72; PULSE 78; RESP 16; TEMP 36.6; O2SAT 94
--- NOTE | 2018-02-01 18:10 | NURSING ---
PT IN PRECAUTIONS FOR MRSA IN HER WOUNDS.
[2018-02-02] MEDS: levETIRAcetam 750 MG Tablet PO ×2 (05:54→16:30)
[2018-02-02] MEDS: Acetaminophen 500 MG Tablet 1000 MG PO (05:54)
[2018-02-02] MEDS: Sertraline 50 MG Tablet 25 MG PO (05:54)
[2018-02-02] MEDS: Famotidine 20 MG Tablet PO ×2 (05:55→16:30)
[2018-02-02] MEDS: Enoxaparin 40 MG/0.4 ML Syringe SC (05:58)
--- NOTE | 2018-02-02 07:32 | NURSING ---
pt remains in precautions for MRSA
[2018-02-02] MEDS: Gabapentin 300 MG Capsule PO ×2 (07:56→16:30)
[2018-02-02] MEDS: Calcium (Elemental) 500 MG Tablet PO (07:56)
[2018-02-02] MEDS: Multivitamins,Therapeutic Tablet 1 TABLET PO (07:56)
[2018-02-02] MEDS: oxyCODONE 5 MG Tablet 10 MG PO ×2 (08:56→22:38)
[2018-02-02 09:23] VITALS: PULSE 78; RESP 16
[2018-02-02] MEDS: levoFLOXacin IV 500 MG/100 ML BAG 100 MG IV (10:36)
--- NOTE | 2018-02-02 15:20 | NURSING ---
wound photo: left posterior lower leg
--- NOTE | 2018-02-02 15:21 | NURSING ---
wound photo: left anterior lower leg
[2018-02-02 16:00] VITALS: BP 103/61; PULSE 60; RESP 18; TEMP 36.2; O2SAT 94
[2018-02-02] MEDS: 0.9% NaCl PICC Flush IV ×2 (20:50→22:39)
--- NOTE | 2018-02-02 22:31 | NURSING ---
pt states walking into room restroom arm was rubbed again the door got a skin tear to l forearm 4cm x .25 cm. cleanse area applied 4 steri strips to area. no s/sx of infection noted.
[2018-02-03] MEDS: Acetaminophen 500 MG Tablet 1000 MG PO (06:42)
[2018-02-03] MEDS: Sertraline 50 MG Tablet 25 MG PO (06:42)
[2018-02-03] MEDS: Famotidine 20 MG Tablet PO ×2 (06:42→19:18)
[2018-02-03] MEDS: levETIRAcetam 750 MG Tablet PO ×2 (06:42→19:18)
[2018-02-03] MEDS: Enoxaparin 40 MG/0.4 ML Syringe SC (06:48)
[2018-02-03] MEDS: Polyethylene Glycol 3350 17 GM PACKET PO (06:50)
--- NOTE | 2018-02-03 07:17 | NURSING ---
pt removed steri strips to L forearm not replaced taking a shower this morning.
[2018-02-03] MEDS: 0.9% NaCl IVPB Med Flush (250 mL) 15 ML IV (09:07)
[2018-02-03] MEDS: 0.9% NaCl PICC Flush IV (09:07)
[2018-02-03] MEDS: Multivitamins,Therapeutic Tablet 1 TABLET PO (09:08)
[2018-02-03] MEDS: Gabapentin 300 MG Capsule PO ×2 (09:08→19:18)
[2018-02-03] MEDS: Calcium (Elemental) 500 MG Tablet PO (09:08)
[2018-02-03] MEDS: levoFLOXacin IV 500 MG/100 ML BAG 100 MG IV (10:33)
[2018-02-03 16:00] VITALS: BP 118/74; PULSE 60; RESP 20; TEMP 36.8; O2SAT 95
[2018-02-03] MEDS: oxyCODONE 5 MG Tablet 10 MG PO (22:13)
[2018-02-04] MEDS: levETIRAcetam 750 MG Tablet PO ×2 (05:13→17:14)
[2018-02-04] MEDS: Sertraline 50 MG Tablet 25 MG PO (05:13)
[2018-02-04] MEDS: Acetaminophen 500 MG Tablet 1000 MG PO (05:14)
[2018-02-04] MEDS: Famotidine 20 MG Tablet PO ×2 (05:14→17:15)
[2018-02-04] MEDS: Polyethylene Glycol 3350 17 GM PACKET PO (05:15)
[2018-02-04] MEDS: Senna/Docusate Sodium 1 Tablet 2 TABLET PO (05:15)
[2018-02-04] MEDS: Enoxaparin 40 MG/0.4 ML Syringe SC (05:16)
[2018-02-04] MEDS: Multivitamins,Therapeutic Tablet 1 TABLET PO (07:52)
[2018-02-04] MEDS: Gabapentin 300 MG Capsule PO ×2 (07:52→17:14)
[2018-02-04] MEDS: Calcium (Elemental) 500 MG Tablet PO (07:52)
[2018-02-04] MEDS: 0.9% NaCl PICC Flush IV ×3 (09:17→21:21)
[2018-02-04] MEDS: 0.9% NaCl IVPB Med Flush (250 mL) 15 ML IV (10:35)
[2018-02-04] MEDS: levoFLOXacin IV 500 MG/100 ML BAG 100 MG IV (10:35)
[2018-02-04 15:35] VITALS: BP 100/62; PULSE 66; RESP 18; TEMP 36.8; O2SAT 94
[2018-02-04] MEDS: oxyCODONE 5 MG Tablet 10 MG PO (21:19)
[2018-02-04 21:30] VITALS: PULSE 86; RESP 18; O2SAT 95
[2018-02-05] MEDS: Polyethylene Glycol 3350 17 GM PACKET PO (06:24)
[2018-02-05] MEDS: levETIRAcetam 750 MG Tablet PO ×2 (06:25→18:00)
[2018-02-05] MEDS: Acetaminophen 500 MG Tablet 1000 MG PO (06:25)
[2018-02-05] MEDS: Famotidine 20 MG Tablet PO ×2 (06:26→18:01)
[2018-02-05] MEDS: Sertraline 50 MG Tablet 25 MG PO (06:27)
[2018-02-05] MEDS: Enoxaparin 40 MG/0.4 ML Syringe SC (06:27)
[2018-02-05] MEDS: Calcium (Elemental) 500 MG Tablet PO (08:05)
[2018-02-05] MEDS: Multivitamins,Therapeutic Tablet 1 TABLET PO (08:05)
[2018-02-05] MEDS: Gabapentin 300 MG Capsule PO ×2 (08:05→18:00)
[2018-02-05] MEDS: 0.9% NaCl PICC Flush IV ×3 (09:14→20:19)
[2018-02-05] MEDS: levoFLOXacin IV 500 MG/100 ML BAG 100 MG IV (10:37)
[2018-02-05] MEDS: 0.9% NaCl IVPB Med Flush (250 mL) 15 ML IV (10:37)
[2018-02-05] MEDS: oxyCODONE 5 MG Tablet 10 MG PO ×2 (11:05→20:28)
[2018-02-05 13:08] VITALS: PULSE 50; RESP 18; O2SAT 94
[2018-02-05 16:00] VITALS: BP 117/69; PULSE 68; RESP 18; TEMP 36.6; O2SAT 95
[2018-02-06] MEDS: Famotidine 20 MG Tablet PO ×2 (05:59→16:55)
[2018-02-06] MEDS: Acetaminophen 500 MG Tablet 1000 MG PO (05:59)
[2018-02-06] MEDS: levETIRAcetam 750 MG Tablet PO ×2 (05:59→16:55)
[2018-02-06] MEDS: Sertraline 50 MG Tablet 25 MG PO (06:00)
[2018-02-06] MEDS: Enoxaparin 40 MG/0.4 ML Syringe SC (06:19)
[2018-02-06] MEDS: Polyethylene Glycol 3350 17 GM PACKET PO (06:27)
[2018-02-06 07:33] LABS: Absolute Lymphocyte Count 0.75 X10^3/ul (0.83-4.51); Absolute Neutrophil Count 3.5 X10^3/uL (2.0-7.7); Basophil# 0.02 X10^3/uL; Basophil% 0.4 % (0-1); Eosinophil# 0.05 X10^3/uL; Hematocrit 39.3 % (37-47); Hemoglobin 12.5 g/dl (12.0-15.0); Lymphocyte # 0.75 X10^3/ul (4.0); Lymphocyte % 15.3 % (19-41); Mean Corp Hgb Conc 31.8 g/gl (32-36); Mean Corpuscular Hgb 32.5 pg (27.0-32.0); Mean Corpuscular Volume 102.1 fL (81-99); Mean Platelet Vol. 9.9 fl (6.2-12.0); Monocyte# 0.48 X10^3/uL; Monocyte% 9.8 % (0-10); Neutrophil % 71.7 % (47-70); Platelet Count 204 K/mm3 (150-450); RBC Distribution Width CV 14.1 % (11.6-14.6); RBC Distribution Width SD 52.5 fl (35.1-43.9); Red Blood Count 3.85 M/mm3 (4.2-5.4); White Blood Count 4.9 K/mm3 (4.4-11.0)
[2018-02-06 07:37] LABS: Erythrocyte Sedimentation Rate 14 mm/hr (0-30); POSITIVE COUNT NO; POSITIVE DIFFERENTIAL NO; POSITIVE MORPHOLOGY NO
[2018-02-06] MEDS: Multivitamins,Therapeutic Tablet 1 TABLET PO (07:37)
[2018-02-06] MEDS: Gabapentin 300 MG Capsule PO ×2 (07:38→16:55)
[2018-02-06] MEDS: Calcium (Elemental) 500 MG Tablet PO (07:38)
[2018-02-06 08:00] LABS: Anion Gap 8 (5-15); BUN 22 mg/dL (7-18); BUN/Creat Ratio 23.4 RATIO (10-20); CRP 3.47 mg/L (0.0-3.0); Calcium,Total 9.4 mg/dL (8.5-10.1); Chloride 103 mmol/L (98-107); Creatinine, Serum 0.94 mg/dL (0.55-1.02); EST Glomerular Filtration Rate 65 mL/min (>60); Est Glom Filt Rate - Afr Amer 78 mL/min (>60); Glucose 115 mg/dL (74-106); Potassium 3.7 mmol/L (3.5-5.1); Sodium Level 142 mmol/L (136-145)
[2018-02-06 08:33] VITALS: PULSE 60; RESP 16
[2018-02-06 08:54] LABS: Vancomycin, Trough Level 12.4 ug/mL (5.0-15.0)
--- NOTE | 2018-02-06 10:16 | PCM.RX.CS ---
Consult Pharmacy has been consulted to manage selected antiobiotic: Vancomycin Type of Consult: Follow-up Suspected Infection: Skin/Soft tissue Prior Doses of Antibiotics Received/Current Regimen: 25 Labs: Sodium 142 mmol/L (136-145) 02/06/18 07:00 Potassium 3.7 mmol/L (3.5-5.1) 02/06/18 07:00 Chloride 103 mmol/L (98-107) 02/06/18 07:00 Carbon Dioxide 31.0 mmol/L (21.0-32.0) 02/06/18 07:00 Anion Gap 8 (5-15) 02/06/18 07:00 BUN 22 mg/dL (7-18) H 02/06/18 07:00 Creatinine 0.94 mg/dL (0.55-1.02) 02/06/18 07:00 Est GFR (MDRD) Af Amer 78 mL/min (>60) 02/06/18 07:00 Est GFR (MDRD) Non-Af 65 mL/min (>60) 02/06/18 07:00 BUN/Creatinine Ratio 23.4 RATIO (10-20) H 02/06/18 07:00 Glucose 115 mg/dL (74-106) H 02/06/18 07:00 Vancomycin Trough 12.4 ug/mL (5.0-15.0) 02/06/18 08:16 Goal Trough: 10-15 mcg/mL - TROUGH LEVEL 12.4, CONTINUE SAME DOSE, REPEAT TROUGH IN 7 DAYS Pharmacy Plan for Drug Dosing: Pharmacy Service will continue to monitor and adjust dosing as required.
[2018-02-06] MEDS: levoFLOXacin IV 500 MG/100 ML BAG 100 MG IV (11:14)
--- NOTE | 2018-02-06 11:25 | NURSING ---
Dr. Kirk reviewed labs, N.N.O.
--- NOTE | 2018-02-06 12:46 | PCM.PN.RX ---
<AmenanikkidiNasir D - Last Filed: 02/06/18 12:46> Progress Note - Pharmacy Subjective: TCU Admission Objective: Allergies adhesive tape Adverse Reaction (Verified 01/19/18 10:54) VERY THIN STEROID SKIN WILL REMOVE SKIN IF ON TOO LONG Current Medications Generic Name Dose Route Start Last Admin Trade Name Freq PRN Reason Stop Dose Admin Acetaminophen 1,000 mg 02/01/18 06:00 02/06/18 05:59 Tylenol PO 1,000 mg DAILY [facility] Administration Bisacodyl 10 mg 01/31/18 21:19 Dulcolax PO DAILY PRN Constipation Calcium Carbonate 500 mg 02/01/18 08:00 02/06/18 07:38 Os-Guido 500 PO 500 mg DAILYCM [facility] Administration Cholecalciferol 5,000 unit 02/01/18 08:00 02/06/18 07:38 Vitamin D PO 5,000 unit DAILYCM [facility] Administration Dexamethasone 2.5 mg 02/01/18 08:00 02/06/18 10:19 Decadron PO 2.5 mg DAILY@0800 [facility] Administration Diazepam 5 mg 01/31/18 18:23 02/01/18 22:17 Valium PO 5 mg 4X/DAY PRN PRN Administration SPASMS Enoxaparin Sodium 40 mg 02/01/18 06:00 02/06/18 06:19 Lovenox SC 40 mg DAILY [facility] Administration Famotidine 20 mg 02/01/18 06:00 02/06/18 05:59 Pepcid PO 20 mg BID [facility] Administration Gabapentin 300 mg 02/01/18 08:00 02/06/18 07:38 Neurontin PO 300 mg BID [facility] Administration Heparin Sodium (Beef Lung) 500 unit 01/31/18 22:21 Heparin 500 Unit/5 Ml (100/Ml) IV UD PRN HEPARIN FLUSH Levofloxacin 500 mg in 100 mls @ 100 mls/hr 02/01/18 10:00 02/06/18 11:14 Levaquin Iv IV 100 mls/hr Q24 [facility] Administration Vancomycin HCl 750 mg/ Sodium 265 mls @ 265 mls/hr 01/31/18 21:00 02/06/18 10:05 Chloride IV 265 mls/hr Q12H [facility] Administration Sodium Chloride 250 mls @ 15 mls/hr 01/31/18 22:21 02/05/18 10:37 IV 15 mls/hr .[id number] PRN Administration SALINE FLUSH Lactobacillus Acidophilus 1 tablet 02/01/18 06:00 02/06/18 05:59 Acidophilus PO 1 tablet DAILY [facility] Administration Levetiracetam 750 mg 02/01/18 06:00 02/06/18 05:59 Keppra Tablet PO 750 mg BID [facility] Administration Multivitamins 1 tablet 02/01/18 08:00 02/06/18 07:37 Multivitamin PO 1 tablet DAILY@0800 [facility] Administration Nutritional Formula 1 packet 02/01/18 08:00 02/06/18 07:37 Rodger - Barron Flavor PO 1 packet BIDCM [facility] Administration Nutritional Formula (Lactose Free) 120 ml 02/01/18 06:00 02/06/18 11:14 Ensure Enlive PO 120 ml 4X/DAY [facility] Administration Ondansetron HCl 4 mg 01/31/18 18:23 Zofran IV Q6H PRN PRN NAUSEA Ondansetron HCl 8 mg 01/31/18 18:23 Zofran PO Q8H PRN PRN NAUSEA Oxycodone HCl 10 mg 01/31/18 18:23 02/05/18 20:28 Oxyir PO 10 mg Q4H PRN PRN Administration SEVERE PAIN (6-10/10) Polyethylene Glycol 17 gm 02/01/18 06:00 02/06/18 06:27 Miralax PO 17 gm DAILY [facility] Administration Potassium Chloride 20 meq 02/01/18 08:00 02/06/18 07:37 K-Dur PO 20 meq DAILYCM [facility] Administration Promethazine HCl 25 mg 01/31/18 18:23 Phenergan Tablet PO Q4H PRN PRN NAUSEA/VOMITING Senna/Docusate Sodium 2 tablet 02/01/18 06:00 02/06/18 05:58 Senokot-S, Riddhi-Colace PO Not Given BID [facility] Sertraline HCl 25 mg 02/01/18 06:00 02/06/18 06:00 Zoloft PO 25 mg DAILY [facility] Administration Sodium Chloride 10 - 20 ml 01/31/18 22:21 02/05/18 20:19 IV 20 ml UD PRN Administration PICC FLUSH Tuberculin PPD 5 tu 02/08/18 10:00 Tubersol, Aplisol, Ppd ID 02/08/18 10:01 X1 ONE Problem List (Last Updated 12/16/17 @ 17:12 by Sari Hawk DO) GERD (gastroesophageal reflux disease) (Chronic) Nausea (Chronic) Seizure disorder (Chronic) Hypertension (Chronic) Anxiety (Chronic) Chronic pain (Chronic) Neuropathic pain (Chronic) Vital Signs Temp Pulse Resp BP Pulse Ox 97.8 F 60 16 117/69 95 02/05/18 16:00 02/06/18 08:33 02/06/18 08:33 02/05/18 16:00 02/05/18 16:00 Oxygen Delivery Method Room Air Weight: 84.3 kg Body Mass Index (BMI) 28.2 Sodium 142 mmol/L (136-145) 02/06/18 07:00 Potassium 3.7 mmol/L (3.5-5.1) 02/06/18 07:00 Chloride 103 mmol/L (98-107) 02/06/18 07:00 Carbon Dioxide 31.0 mmol/L (21.0-32.0) 02/06/18 07:00 Anion Gap 8 (5-15) 02/06/18 07:00 BUN 22 mg/dL (7-18) H 02/06/18 07:00 Creatinine 0.94 mg/dL (0.55-1.02) 02/06/18 07:00 Est GFR (MDRD) Af Amer 78 mL/min (>60) 02/06/18 07:00 Est GFR (MDRD) Non-Af 65 mL/min (>60) 02/06/18 07:00 BUN/Creatinine Ratio 23.4 RATIO (10-20) H 02/06/18 07:00 Glucose 115 mg/dL (74-106) H 02/06/18 07:00 Vancomycin Trough 12.4 ug/mL (5.0-15.0) 02/06/18 08:16 Assessment/Plan: 1) Pain APAP daily, gabapentin, diazepam prn for spasms, oxycodone for severe pain. Continue to monitor daily pain scores, prn medication use. 2) ID Vancomycin IV q12h with pharmacy monitoring, levofloxacin daily. Continue to monitor s/s infection. 3) Seizure Disorder Levetiracetam twice daily. Continue to monitor for seizures. 4) GI Ondansetron po/iv for nausea, promethazine for nausea with vomiting, famotidine twice daily, lactobacillus. Continue to monitor prn medication, for s/s GI distress. 5) DVT PPx Enoxaparin daily. Continue to monitor s/s bleeding/clot. 6) Nutrition Calcium, D, Ensure, multivitamin, Rodger, KCl. Continue to monitor electrolytes. 7) GBM Dexamethasone daily. Continue to monitor clinically. Psychotropic Medications: 8) Depression Sertraline daily. Continue to monitor s/s depression. Unnecessary Medications: None Bowel Regimen: 9) Senna/s, PEG, prn bisacodyl. Continue to monitor prn medication use, for constipation/diarrhea. Date of Note:: 02/06/18 - Provider Comments Provider responsibility: Provider responsible to enter orders to implement recommendations <Regis Kirk Chi - Last Filed: 02/06/18 18:13> Progress Note - Pharmacy Subjective: [] Objective: Allergies adhesive tape Adverse Reaction (Verified 01/19/18 10:54) VERY THIN STEROID SKIN WILL REMOVE SKIN IF ON TOO LONG Current Medications Generic Name Dose Route Start Last Admin Trade Name Freq PRN Reason Stop Dose Admin Acetaminophen 1,000 mg 02/01/18 06:00 02/06/18 05:59 Tylenol PO 1,000 mg DAILY [facility] Administration Bisacodyl 10 mg 01/31/18 21:19 Dulcolax PO DAILY PRN Constipation Calcium Carbonate 500 mg 02/01/18 08:00 02/06/18 07:38 Os-Guido 500 PO 500 mg DAILYCM [facility] Administration Cholecalciferol 5,000 unit 02/01/18 08:00 02/06/18 07:38 Vitamin D PO 5,000 unit DAILYCM [facility] Administration Dexamethasone 2.5 mg 02/01/18 08:00 02/06/18 10:19 Decadron PO 2.5 mg DAILY@0800 [facility] Administration Diazepam 5 mg 01/31/18 18:23 02/01/18 22:17 Valium PO 5 mg 4X/DAY PRN PRN Administration SPASMS Enoxaparin Sodium 40 mg 02/01/18 06:00 02/06/18 06:19 Lovenox SC 40 mg DAILY [facility] Administration Famotidine 20 mg 02/01/18 06:00 02/06/18 16:55 Pepcid PO 20 mg BID [facility] Administration Gabapentin 300 mg 02/01/18 08:00 02/06/18 16:55 Neurontin PO 300 mg BIDCM [facility] Administration Heparin Sodium (Beef Lung) 500 unit 01/31/18 22:21 Heparin 500 Unit/5 Ml (100/Ml) IV UD PRN HEPARIN FLUSH Levofloxacin 500 mg in 100 mls @ 100 mls/hr 02/01/18 10:00 02/06/18 11:14 Levaquin Iv IV 100 mls/hr Q24 [facility] Administration Vancomycin HCl 750 mg/ Sodium 265 mls @ 265 mls/hr 01/31/18 21:00 02/06/18 10:05 Chloride IV 265 mls/hr Q12H [facility] Administration Sodium Chloride 250 mls @ 15 mls/hr 01/31/18 22:21 02/05/18 10:37 IV 15 mls/hr .[id number] PRN Administration SALINE FLUSH Lactobacillus Acidophilus 1 tablet 02/01/18 06:00 02/06/18 05:59 Acidophilus PO 1 tablet DAILY [facility] Administration Levetiracetam 750 mg 02/01/18 06:00 02/06/18 16:55 Keppra Tablet PO 750 mg BID [facility] Administration Multivitamins 1 tablet 02/01/18 08:00 02/06/18 07:37 Multivitamin PO 1 tablet DAILY@0800 [facility] Administration Nutritional Formula 1 packet 02/01/18 08:00 02/06/18 16:56 Rodger - Barron Flavor PO 1 packet BIDCM [facility] Administration Nutritional Formula (Lactose Free) 120 ml 02/01/18 06:00 02/06/18 16:56 Ensure Enlive PO Not Given 4X/DAY [facility] Ondansetron HCl 4 mg 01/31/18 18:23 Zofran IV Q6H PRN PRN NAUSEA Ondansetron HCl 8 mg 01/31/18 18:23 Zofran PO Q8H PRN PRN NAUSEA Oxycodone HCl 10 mg 01/31/18 18:23 02/06/18 16:55 Oxyir PO 10 mg Q4H PRN PRN Administration SEVERE PAIN (6-10/10) Polyethylene Glycol 17 gm 02/01/18 06:00 02/06/18 06:27 Miralax PO 17 gm DAILY [facility] Administration Potassium Chloride 20 meq 02/01/18 08:00 02/06/18 07:37 K-Dur PO 20 meq DAILYCM [facility] Administration Promethazine HCl 25 mg 01/31/18 18:23 Phenergan Tablet PO Q4H PRN PRN NAUSEA/VOMITING Senna/Docusate Sodium 2 tablet 02/01/18 06:00 02/06/18 16:56 Senokot-S, Riddhi-Colace PO Not Given BID [facility] Sertraline HCl 25 mg 02/01/18 06:00 02/06/18 06:00 Zoloft PO 25 mg DAILY [facility] Administration Sodium Chloride 10 - 20 ml 01/31/18 22:21 02/05/18 20:19 IV 20 ml UD PRN Administration PICC FLUSH Tuberculin PPD 5 tu 02/08/18 10:00 Tubersol, Aplisol, Ppd ID 02/08/18 10:01 X1 ONE Problem List (Last Updated 12/16/17 @ 17:12 by Sari Hawk DO) GERD (gastroesophageal reflux disease) (Chronic) Nausea (Chronic) Seizure disorder (Chronic) Hypertension (Chronic) Anxiety (Chronic) Chronic pain (Chronic) Neuropathic pain (Chronic) Vital Signs Temp Pulse Resp BP Pulse Ox 98.0 F 66 18 112/81 H 95 02/06/18 16:00 02/06/18 16:00 02/06/18 16:00 02/06/18 16:00 02/06/18 16:00 Oxygen Delivery Method Room Air Weight: 84.3 kg Body Mass Index (BMI) 28.2 Sodium 142 mmol/L (136-145) 02/06/18 07:00 Potassium 3.7 mmol/L (3.5-5.1) 02/06/18 07:00 Chloride 103 mmol/L (98-107) 02/06/18 07:00 Carbon Dioxide 31.0 mmol/L (21.0-32.0) 02/06/18 07:00 Anion Gap 8 (5-15) 02/06/18 07:00 BUN 22 mg/dL (7-18) H 02/06/18 07:00 Creatinine 0.94 mg/dL (0.55-1.02) 02/06/18 07:00 Est GFR (MDRD) Af Amer 78 mL/min (>60) 02/06/18 07:00 Est GFR (MDRD) Non-Af 65 mL/min (>60) 02/06/18 07:00 BUN/Creatinine Ratio 23.4 RATIO (10-20) H 02/06/18 07:00 Glucose 115 mg/dL (74-106) H 02/06/18 07:00 Vancomycin Trough 12.4 ug/mL (5.0-15.0) 02/06/18 08:16 Assessment/Plan: Psychotropic Medications: Unnecessary Medications: Bowel Regimen: - Provider Comments Provider responsibility: Provider responsible to enter orders to implement recommendations Provider Comments to Recommendations by Pharmacy: Agree
--- NOTE | 2018-02-06 12:54 | PHA.CONS_ITS ---
<AmenanikkidiNasir D - Last Filed: 02/06/18 12:46> Progress Note - Pharmacy Subjective: TCU Admission Objective: Allergies adhesive tape Adverse Reaction (Verified 01/19/18 10:54) VERY THIN STEROID SKIN WILL REMOVE SKIN IF ON TOO LONG Current Medications Generic Name Dose Route Start Last Admin Trade Name Freq PRN Reason Stop Dose Admin Acetaminophen 1,000 mg 02/01/18 06:00 02/06/18 05:59 Tylenol PO 1,000 mg DAILY [facility] Administration Bisacodyl 10 mg 01/31/18 21:19 Dulcolax PO DAILY PRN Constipation Calcium Carbonate 500 mg 02/01/18 08:00 02/06/18 07:38 Os-Guido 500 PO 500 mg DAILYCM [facility] Administration Cholecalciferol 5,000 unit 02/01/18 08:00 02/06/18 07:38 Vitamin D PO 5,000 unit DAILYCM [facility] Administration Dexamethasone 2.5 mg 02/01/18 08:00 02/06/18 10:19 Decadron PO 2.5 mg DAILY@0800 [facility] Administration Diazepam 5 mg 01/31/18 18:23 02/01/18 22:17 Valium PO 5 mg 4X/DAY PRN PRN Administration SPASMS Enoxaparin Sodium 40 mg 02/01/18 06:00 02/06/18 06:19 Lovenox SC 40 mg DAILY [facility] Administration Famotidine 20 mg 02/01/18 06:00 02/06/18 05:59 Pepcid PO 20 mg BID [facility] Administration Gabapentin 300 mg 02/01/18 08:00 02/06/18 07:38 Neurontin PO 300 mg BID [facility] Administration Heparin Sodium (Beef Lung) 500 unit 01/31/18 22:21 Heparin 500 Unit/5 Ml (100/Ml) IV UD PRN HEPARIN FLUSH Levofloxacin 500 mg in 100 mls @ 100 mls/hr 02/01/18 10:00 02/06/18 11:14 Levaquin Iv IV 100 mls/hr Q24 [facility] Administration Vancomycin HCl 750 mg/ Sodium 265 mls @ 265 mls/hr 01/31/18 21:00 02/06/18 10 :05 Chloride IV 265 mls/hr Q12H [facility] Administration Sodium Chloride 250 mls @ 15 mls/hr 01/31/18 22:21 02/05/18 10:37 IV 15 mls/hr .[id number] PRN Administration SALINE FLUSH Lactobacillus Acidophilus 1 tablet 02/01/18 06:00 02/06/18 05:59 Acidophilus PO 1 tablet DAILY [facility] Administration Levetiracetam 750 mg 02/01/18 06:00 02/06/18 05:59 Keppra Tablet PO 750 mg BID [facility] Administration Multivitamins 1 tablet 02/01/18 08:00 02/06/18 07:37 Multivitamin PO 1 tablet DAILY@0800 [facility] Administration Nutritional Formula 1 packet 02/01/18 08:00 02/06/18 07:37 Rodger - [place] Flavor PO 1 packet BIDCM [facility] Administration Nutritional Formula (Lactose Free) 120 ml 02/01/18 06:00 02/06/18 11:14 Ensure Enlive PO 120 ml 4X/DAY [facility] Administration Ondansetron HCl 4 mg 01/31/18 18:23 Zofran IV Q6H PRN PRN NAUSEA Ondansetron HCl 8 mg 01/31/18 18:23 Zofran PO Q8H PRN PRN NAUSEA Oxycodone HCl 10 mg 01/31/18 18:23 02/05/18 20:28 Oxyir PO 10 mg Q4H PRN PRN Administration SEVERE PAIN (6-10/10) Polyethylene Glycol 17 gm 02/01/18 06:00 02/06/18 06:27 Miralax PO 17 gm DAILY [facility] Administration Potassium Chloride 20 meq 02/01/18 08:00 02/06/18 07:37 K-Dur PO 20 meq DAILYCM [facility] Administration Promethazine HCl 25 mg 01/31/18 18:23 Phenergan Tablet PO Q4H PRN PRN NAUSEA/VOMITING Senna/Docusate Sodium 2 tablet 02/01/18 06:00 02/06/18 05:58 Senokot-S, Riddhi-Colace PO Not Given BID [facility] Sertraline HCl 25 mg 02/01/18 06:00 02/06/18 06:00 Zoloft PO 25 mg DAILY [facility] Administration Sodium Chloride 10 - 20 ml 01/31/18 22:21 02/05/18 20:19 IV 20 ml UD PRN Administration PICC FLUSH Tuberculin PPD 5 tu 02/08/18 10:00 Tubersol, Aplisol, Ppd ID 02/08/18 10:01 X1 ONE Problem List (Last Updated 12/16/17 @ 17:12 by Sari Hawk DO) GERD (gastroesophageal reflux disease) (Chronic) Nausea (Chronic) Seizure disorder (Chronic) Hypertension (Chronic) Anxiety (Chronic) Chronic pain (Chronic) Neuropathic pain (Chronic) Vital Signs Temp Pulse Resp BP Pulse Ox 97.8 F 60 16 117/69 95 02/05/18 16:00 02/06/18 08:33 02/06/18 08:33 02/05/18 16:00 02/05/18 16:00 Oxygen Delivery Method Room Air Weight: 84.3 kg Body Mass Index (BMI) 28.2 Sodium 142 mmol/L (136-145) 02/06/18 07:00 Potassium 3.7 mmol/L (3.5-5.1) 02/06/18 07:00 Chloride 103 mmol/L (98-107) 02/06/18 07:00 Carbon Dioxide 31.0 mmol/L (21.0-32.0) 02/06/18 07:00 Anion Gap 8 (5-15) 02/06/18 07:00 BUN 22 mg/dL (7-18) H 02/06/18 07:00 Creatinine 0.94 mg/dL (0.55-1.02) 02/06/18 07:00 Est GFR (MDRD) Af Amer 78 mL/min (>60) 02/06/18 07:00 Est GFR (MDRD) Non-Af 65 mL/min (>60) 02/06/18 07:00 BUN/Creatinine Ratio 23.4 RATIO (10-20) H 02/06/18 07:00 Glucose 115 mg/dL (74-106) H 02/06/18 07:00 Vancomycin Trough 12.4 ug/mL (5.0-15.0) 02/06/18 08:16 Assessment/Plan: 1) Pain APAP daily, gabapentin, diazepam prn for spasms, oxycodone for severe pain. Continue to monitor daily pain scores, prn medication use. 2) ID Vancomycin IV q12h with pharmacy monitoring, levofloxacin daily. Continue to monitor s/s infection. 3) Seizure Disorder Levetiracetam twice daily. Continue to monitor for seizures. 4) GI Ondansetron po/iv for nausea, promethazine for nausea with vomiting, famotidine twice daily, lactobacillus. Continue to monitor prn medication, for s /s GI distress. 5) DVT PPx Enoxaparin daily. Continue to monitor s/s bleeding/clot. 6) Nutrition Calcium, D, Ensure, multivitamin, Rodger, KCl. Continue to monitor electrolytes. 7) GBM Dexamethasone daily. Continue to monitor clinically. Psychotropic Medications: 8) Depression Sertraline daily. Continue to monitor s/s depression. Unnecessary Medications: None Bowel Regimen: 9) Senna/s, PEG, prn bisacodyl. Continue to monitor prn medication use, for constipation/diarrhea. Date of Note:: 02/06/18 - Provider Comments Provider responsibility: Provider responsible to enter orders to implement recommendations <Regis Kirk Chi - Last Filed: 02/06/18 18:13> Progress Note - Pharmacy Subjective: [] Objective: Allergies adhesive tape Adverse Reaction (Verified 01/19/18 10:54) VERY THIN STEROID SKIN WILL REMOVE SKIN IF ON TOO LONG Current Medications Generic Name Dose Route Start Last Admin Trade Name Freq PRN Reason Stop Dose Admin Acetaminophen 1,000 mg 02/01/18 06:00 02/06/18 05:59 Tylenol PO 1,000 mg DAILY [facility] Administration Bisacodyl 10 mg 01/31/18 21:19 Dulcolax PO DAILY PRN Constipation Calcium Carbonate 500 mg 02/01/18 08:00 02/06/18 07:38 Os-Guido 500 PO 500 mg DAILYCM [facility] Administration Cholecalciferol 5,000 unit 02/01/18 08:00 02/06/18 07:38 Vitamin D PO 5,000 unit DAILYCM [facility] Administration Dexamethasone 2.5 mg 02/01/18 08:00 02/06/18 10:19 Decadron PO 2.5 mg DAILY@0800 [facility] Administration Diazepam 5 mg 01/31/18 18:23 02/01/18 22:17 Valium PO 5 mg 4X/DAY PRN PRN Administration SPASMS Enoxaparin Sodium 40 mg 02/01/18 06:00 02/06/18 06:19 Lovenox SC 40 mg DAILY [facility] Administration Famotidine 20 mg 02/01/18 06:00 02/06/18 16:55 Pepcid PO 20 mg BID [facility] Administration Gabapentin 300 mg 02/01/18 08:00 02/06/18 16:55 Neurontin PO 300 mg BIDCM [facility] Administration Heparin Sodium (Beef Lung) 500 unit 01/31/18 22:21 Heparin 500 Unit/5 Ml (100/Ml) IV UD PRN HEPARIN FLUSH Levofloxacin 500 mg in 100 mls @ 100 mls/hr 02/01/18 10:00 02/06/18 11:14 Levaquin Iv IV 100 mls/hr Q24 [facility] Administration Vancomycin HCl 750 mg/ Sodium 265 mls @ 265 mls/hr 01/31/18 21:00 02/06/18 10 :05 Chloride IV 265 mls/hr Q12H [facility] Administration Sodium Chloride 250 mls @ 15 mls/hr 01/31/18 22:21 02/05/18 10:37 IV 15 mls/hr .[id number] PRN Administration SALINE FLUSH Lactobacillus Acidophilus 1 tablet 02/01/18 06:00 02/06/18 05:59 Acidophilus PO 1 tablet DAILY [facility] Administration Levetiracetam 750 mg 02/01/18 06:00 02/06/18 16:55 Keppra Tablet PO 750 mg BID [facility] Administration Multivitamins 1 tablet 02/01/18 08:00 02/06/18 07:37 Multivitamin PO 1 tablet DAILY@0800 [facility] Administration Nutritional Formula 1 packet 02/01/18 08:00 02/06/18 16:56 Rodger - [place] Flavor PO 1 packet BIDCM [facility] Administration Nutritional Formula (Lactose Free) 120 ml 02/01/18 06:00 02/06/18 16:56 Ensure Enlive PO Not Given 4X/DAY [facility] Ondansetron HCl 4 mg 01/31/18 18:23 Zofran IV Q6H PRN PRN NAUSEA Ondansetron HCl 8 mg 01/31/18 18:23 Zofran PO Q8H PRN PRN NAUSEA Oxycodone HCl 10 mg 01/31/18 18:23 02/06/18 16:55 Oxyir PO 10 mg Q4H PRN PRN Administration SEVERE PAIN (6-10/10) Polyethylene Glycol 17 gm 02/01/18 06:00 02/06/18 06:27 Miralax PO 17 gm DAILY [facility] Administration Potassium Chloride 20 meq 02/01/18 08:00 02/06/18 07:37 K-Dur PO 20 meq DAILYCM [facility] Administration Promethazine HCl 25 mg 01/31/18 18:23 Phenergan Tablet PO Q4H PRN PRN NAUSEA/VOMITING Senna/Docusate Sodium 2 tablet 02/01/18 06:00 02/06/18 16:56 Senokot-S, Riddhi-Colace PO Not Given BID [facility] Sertraline HCl 25 mg 02/01/18 06:00 02/06/18 06:00 Zoloft PO 25 mg DAILY [facility] Administration Sodium Chloride 10 - 20 ml 01/31/18 22:21 02/05/18 20:19 IV 20 ml UD PRN Administration PICC FLUSH Tuberculin PPD 5 tu 02/08/18 10:00 Tubersol, Aplisol, Ppd ID 02/08/18 10:01 X1 ONE Problem List (Last Updated 12/16/17 @ 17:12 by Sari Hawk DO) GERD (gastroesophageal reflux disease) (Chronic) Nausea (Chronic) Seizure disorder (Chronic) Hypertension (Chronic) Anxiety (Chronic) Chronic pain (Chronic) Neuropathic pain (Chronic) Vital Signs Temp Pulse Resp BP Pulse Ox 98.0 F 66 18 112/81 H 95 02/06/18 16:00 02/06/18 16:00 02/06/18 16:00 02/06/18 16:00 02/06/18 16:00 Oxygen Delivery Method Room Air Weight: 84.3 kg Body Mass Index (BMI) 28.2 Sodium 142 mmol/L (136-145) 02/06/18 07:00 Potassium 3.7 mmol/L (3.5-5.1) 02/06/18 07:00 Chloride 103 mmol/L (98-107) 02/06/18 07:00 Carbon Dioxide 31.0 mmol/L (21.0-32.0) 02/06/18 07:00 Anion Gap 8 (5-15) 02/06/18 07:00 BUN 22 mg/dL (7-18) H 02/06/18 07:00 Creatinine 0.94 mg/dL (0.55-1.02) 02/06/18 07:00 Est GFR (MDRD) Af Amer 78 mL/min (>60) 02/06/18 07:00 Est GFR (MDRD) Non-Af 65 mL/min (>60) 02/06/18 07:00 BUN/Creatinine Ratio 23.4 RATIO (10-20) H 02/06/18 07:00 Glucose 115 mg/dL (74-106) H 02/06/18 07:00 Vancomycin Trough 12.4 ug/mL (5.0-15.0) 02/06/18 08:16 Assessment/Plan: Psychotropic Medications: Unnecessary Medications: Bowel Regimen: - Provider Comments Provider responsibility: Provider responsible to enter orders to implement recommendations Provider Comments to Recommendations by Pharmacy: Agree
--- NOTE | 2018-02-06 14:31 | NURSING ---
R UA PICC DRESSING CHANGED AT THIS TIME, PT TOLERATED WELL. LLE DRESSING CHANGED WITH AQUACEL AG, NS, AND 4X4 WITH KERLIX AND NICKY WRAP, PT TOLERATED WELL.
[2018-02-06 16:00] VITALS: BP 112/81; PULSE 66; RESP 18; TEMP 36.7; O2SAT 95
[2018-02-06] MEDS: oxyCODONE 5 MG Tablet 10 MG PO ×2 (16:55→22:40)
[2018-02-06] MEDS: 0.9% NaCl PICC Flush IV (21:13)
[2018-02-06] MEDS: 0.9% NaCl IVPB Med Flush (250 mL) 15 ML IV (21:13)
[2018-02-06] MEDS: diazePAM 5 MG Tablet PO (22:41)
[2018-02-07] MEDS: oxyCODONE 5 MG Tablet 10 MG PO ×2 (06:05→22:27)
[2018-02-07] MEDS: Famotidine 20 MG Tablet PO ×2 (06:06→18:23)
[2018-02-07] MEDS: Enoxaparin 40 MG/0.4 ML Syringe SC (06:07)
[2018-02-07] MEDS: levETIRAcetam 750 MG Tablet PO ×2 (06:07→18:23)
[2018-02-07] MEDS: Polyethylene Glycol 3350 17 GM PACKET PO (06:08)
[2018-02-07] MEDS: Acetaminophen 500 MG Tablet 1000 MG PO (06:09)
[2018-02-07] MEDS: Sertraline 50 MG Tablet 25 MG PO (06:11)
[2018-02-07] MEDS: Multivitamins,Therapeutic Tablet 1 TABLET PO (08:13)
[2018-02-07] MEDS: Gabapentin 300 MG Capsule PO ×2 (08:13→18:23)
[2018-02-07] MEDS: Calcium (Elemental) 500 MG Tablet PO (08:14)
--- NOTE | 2018-02-07 08:38 | NURSING ---
DRESSINGS CHANGED TO LEFT ARM,[ADDED STERI STRIP] AND LEFT LEG DUE TO PT JUST OUT OF SHOWER.
[2018-02-07] MEDS: 0.9% NaCl PICC Flush IV ×3 (12:14→21:16)
[2018-02-07] MEDS: levoFLOXacin IV 500 MG/100 ML BAG 100 MG IV (12:14)
--- NOTE | 2018-02-07 14:28 | CASEMGMT ---
Brief interview for mental status (BIMS) and resident mood interview (PHQ-9) completed on this day. BIMS score 13/15. PHQ-9 score
--- NOTE | 2018-02-07 15:21 | NURSING ---
Dressings to left leg were changed by ELIF Vieira.
--- NOTE | 2018-02-07 15:31 | CASEMGMT ---
Insurance Telephone call to speak with insurance in regards to pending insurance approval. Continued stay approved with next update due on 02/07/18. Clinical information faxed. Pending continued stay approval. Auth#[id number] Kendra GIVENS, EXPLOSIVE OPERATOR
[2018-02-07 15:48] VITALS: BP 110/80; PULSE 71; RESP 16; TEMP 36.4; O2SAT 94
[2018-02-07 20:15] VITALS: PULSE 74; RESP 18; O2SAT 97
[2018-02-07] MEDS: 0.9% NaCl IVPB Med Flush (250 mL) 15 ML IV (21:16)
--- NOTE | 2018-02-07 21:25 | NURSING ---
Unable to flush PICC at this time. Dr Kirk aware new order for cathflo, repeat if needed.
[2018-02-07] MEDS: Alteplase 2 MG/2 ML Vial IV (22:22)
[2018-02-07] MEDS: diazePAM 5 MG Tablet PO (22:27)
[2018-02-08] MEDS: Alteplase 2 MG/2 ML Vial IV (00:51)
--- NOTE | 2018-02-08 01:48 | NURSING ---
iv attempt to left hand. vein blew and immediately became edemetous and eccymotic. pressure held, ice applied and hand elevated.
[2018-02-08] MEDS: oxyCODONE 5 MG Tablet 10 MG PO (03:05)
[2018-02-08] MEDS: proMETHazine 25 MG Tablet PO (03:08)
--- NOTE | 2018-02-08 03:17 | NURSING ---
No blood return noted to COMPA PICC after cathflo X2. Will update Dr Kirk
[2018-02-08] MEDS: Enoxaparin 40 MG/0.4 ML Syringe SC (05:23)
[2018-02-08] MEDS: levETIRAcetam 750 MG Tablet PO ×2 (05:23→16:59)
[2018-02-08] MEDS: Famotidine 20 MG Tablet PO ×2 (05:23→16:58)
[2018-02-08] MEDS: Acetaminophen 500 MG Tablet 1000 MG PO (05:24)
[2018-02-08] MEDS: Sertraline 50 MG Tablet 25 MG PO (05:25)
--- NOTE | 2018-02-08 07:30 | NURSING ---
Per [facility], pharmacist d/t vancomycin infusing late last HS, administer 02/08 9AM vanc after 10AM Levaquin. Dayshift updated.
[2018-02-08] MEDS: Multivitamins,Therapeutic Tablet 1 TABLET PO (07:51)
[2018-02-08] MEDS: Calcium (Elemental) 500 MG Tablet PO (07:51)
[2018-02-08] MEDS: Gabapentin 300 MG Capsule PO ×2 (07:51→16:58)
--- NOTE | 2018-02-08 08:31 | NURSING ---
This nurse called into Pt room. Pt saline lock in L forearm noted to be out, and Pt has minimal blood draining from site. Catheter intact. 2x2 gauze and tape placed over site to minimize bleeding. Violeta REYES notified
--- NOTE | 2018-02-08 08:44 | NURSING ---
Call to Kari from performance improvement analyst and reported that we need a new line. The COMPA line that was placed was unable to be declotted x2 through the night. Patient had a peripheral line that was removed accidentally by the patient. Kari reports that she will call back with an ETA when available.
[2018-02-08 09:56] VITALS: PULSE 53; RESP 16; O2SAT 96
--- NOTE | 2018-02-08 11:22 | CASEMGMT ---
Plan of care meeting held. Resident present as well as resident family. No discharge date set at this time. Resident to discharge home alone at time of discharge. Resident to continue with further care and treatment on the Transitional Care Unit. Support given. Will continue to follow. Kendra GIVENS, BICYCLE TAXI DRIVER
--- NOTE | 2018-02-08 11:40 | NURSING ---
swimming pool maintenance supervisor gave the OK to use PICC line at this time.
[2018-02-08] MEDS: levoFLOXacin IV 500 MG/100 ML BAG 100 MG IV (11:42)
--- NOTE | 2018-02-08 11:52 | CASEMGMT ---
Insurance Continued stay approved with next update due on 02/09/18. Auth#[id number] Kendra GIVENS, AVIONICS SYSTEM ENGINEER
--- NOTE | 2018-02-08 14:06 | NURSING ---
ELIF Bowie states dressings to the left leg were changed already today. will monitor. Did not remove dressings at this time.
[2018-02-08 15:44] VITALS: BP 135/85; PULSE 66; RESP 18; TEMP 36.2; O2SAT 96
[2018-02-08] MEDS: 0.9% NaCl PICC Flush IV (20:03)
[2018-02-09] MEDS: 0.9% NaCl PICC Flush IV ×2 (01:10→17:37)
[2018-02-09] MEDS: Enoxaparin 40 MG/0.4 ML Syringe SC (04:25)
[2018-02-09] MEDS: Polyethylene Glycol 3350 17 GM PACKET PO (04:25)
[2018-02-09] MEDS: Sertraline 50 MG Tablet 25 MG PO (04:28)
[2018-02-09] MEDS: Famotidine 20 MG Tablet PO ×2 (04:28→17:08)
[2018-02-09] MEDS: levETIRAcetam 750 MG Tablet PO ×2 (04:29→17:08)
[2018-02-09] MEDS: Acetaminophen 500 MG Tablet 1000 MG PO (04:30)
[2018-02-09] MEDS: Gabapentin 300 MG Capsule PO ×2 (07:57→17:08)
[2018-02-09] MEDS: Calcium (Elemental) 500 MG Tablet PO (07:57)
[2018-02-09] MEDS: Multivitamins,Therapeutic Tablet 1 TABLET PO (07:57)
[2018-02-09] MEDS: 0.9% NaCl IVPB Med Flush (250 mL) 15 ML IV ×2 (09:18→17:36)
[2018-02-09] MEDS: levoFLOXacin IV 500 MG/100 ML BAG 100 MG IV (09:18)
--- NOTE | 2018-02-09 11:02 | CASEMGMT ---
Insurance Clinical information faxed. Pending continued stay approval at this time. Auth#[id number] Kendra GIVENS, DECONTAMINATION TECHNICIAN
--- NOTE | 2018-02-09 15:24 | NURSING ---
wound photo: left posterior lower leg
--- NOTE | 2018-02-09 15:25 | NURSING ---
wound photo: left anterior lower leg
[2018-02-09 15:40] VITALS: BP 120/68; PULSE 70; RESP 18; TEMP 36.7; O2SAT 97
--- NOTE | 2018-02-09 16:28 | CASEMGMT ---
Insurance Continued stay approved with next update due on 02/14/18. Auth#[id number] Kendra GIVENS, BUSINESS BROKER
[2018-02-09 20:11] VITALS: PULSE 73; RESP 16; O2SAT 96
[2018-02-09] MEDS: oxyCODONE 5 MG Tablet 10 MG PO (22:46)
[2018-02-10] MEDS: Senna/Docusate Sodium 1 Tablet 2 TABLET PO (04:36)
[2018-02-10] MEDS: Famotidine 20 MG Tablet PO ×2 (04:36→17:51)
[2018-02-10] MEDS: Sertraline 50 MG Tablet 25 MG PO (04:37)
[2018-02-10] MEDS: Acetaminophen 500 MG Tablet 1000 MG PO (04:37)
[2018-02-10] MEDS: levETIRAcetam 750 MG Tablet PO ×2 (04:37→17:51)
[2018-02-10] MEDS: Enoxaparin 40 MG/0.4 ML Syringe SC (04:39)
[2018-02-10] MEDS: 0.9% NaCl PICC Flush IV ×3 (06:03→18:04)
[2018-02-10] MEDS: Gabapentin 300 MG Capsule PO ×2 (08:06→17:51)
[2018-02-10] MEDS: oxyCODONE 5 MG Tablet 10 MG PO (08:06)
[2018-02-10] MEDS: Calcium (Elemental) 500 MG Tablet PO (08:06)
[2018-02-10] MEDS: Multivitamins,Therapeutic Tablet 1 TABLET PO (08:07)
[2018-02-10] MEDS: levoFLOXacin IV 500 MG/100 ML BAG 100 MG IV (10:46)
[2018-02-10 15:29] VITALS: BP 117/74; PULSE 70; RESP 16; TEMP 36.4; O2SAT 95
[2018-02-10 20:07] VITALS: PULSE 65; RESP 16; O2SAT 95
[2018-02-11] MEDS: 0.9% NaCl PICC Flush IV (06:31)
[2018-02-11] MEDS: Acetaminophen 500 MG Tablet 1000 MG PO (06:31)
[2018-02-11] MEDS: Famotidine 20 MG Tablet PO ×2 (06:31→18:23)
[2018-02-11] MEDS: levETIRAcetam 750 MG Tablet PO ×2 (06:31→18:23)
[2018-02-11] MEDS: Sertraline 50 MG Tablet 25 MG PO (06:32)
[2018-02-11] MEDS: Enoxaparin 40 MG/0.4 ML Syringe SC (06:33)
[2018-02-11] MEDS: Calcium (Elemental) 500 MG Tablet PO (08:29)
[2018-02-11] MEDS: Multivitamins,Therapeutic Tablet 1 TABLET PO (08:29)
[2018-02-11] MEDS: Gabapentin 300 MG Capsule PO ×2 (08:29→18:23)
[2018-02-11 10:00] VITALS: PULSE 55; O2SAT 93
[2018-02-11] MEDS: levoFLOXacin IV 500 MG/100 ML BAG 100 MG IV (10:27)
[2018-02-11 15:46] VITALS: BP 119/76; PULSE 62; RESP 16; TEMP 36.6; O2SAT 91
[2018-02-11] MEDS: Senna/Docusate Sodium 1 Tablet 2 TABLET PO (18:24)
[2018-02-11] MEDS: oxyCODONE 5 MG Tablet 10 MG PO ×2 (18:26→22:30)
[2018-02-11] MEDS: diazePAM 5 MG Tablet PO (22:31)
[2018-02-12] MEDS: oxyCODONE 5 MG Tablet 10 MG PO ×3 (05:10→19:52)
[2018-02-12] MEDS: Sertraline 50 MG Tablet 25 MG PO (05:12)
[2018-02-12] MEDS: Acetaminophen 500 MG Tablet 1000 MG PO (05:13)
[2018-02-12] MEDS: Enoxaparin 40 MG/0.4 ML Syringe SC (05:14)
[2018-02-12] MEDS: Famotidine 20 MG Tablet PO ×2 (05:14→17:31)
[2018-02-12] MEDS: levETIRAcetam 750 MG Tablet PO ×2 (05:15→17:31)
[2018-02-12] MEDS: 0.9% NaCl PICC Flush IV ×3 (06:59→18:29)
[2018-02-12] MEDS: Calcium (Elemental) 500 MG Tablet PO ×2 (08:05→08:07)
[2018-02-12] MEDS: Gabapentin 300 MG Capsule PO ×2 (08:05→17:31)
[2018-02-12] MEDS: Multivitamins,Therapeutic Tablet 1 TABLET PO (08:07)
[2018-02-12 10:00] VITALS: PULSE 84; RESP 16; O2SAT 95
[2018-02-12] MEDS: levoFLOXacin IV 500 MG/100 ML BAG 100 MG IV (10:42)
[2018-02-12 15:16] VITALS: BP 91/62; PULSE 53; RESP 16; TEMP 36.8; O2SAT 94
[2018-02-12] MEDS: diazePAM 5 MG Tablet PO (19:52)
[2018-02-13] MEDS: oxyCODONE 5 MG Tablet 10 MG PO ×3 (00:03→22:30)
[2018-02-13] MEDS: diazePAM 5 MG Tablet PO ×2 (00:04→21:21)
[2018-02-13 05:49] LABS: Absolute Lymphocyte Count 0.84 X10^3/ul (0.83-4.51); Absolute Neutrophil Count 2.7 X10^3/uL (2.0-7.7); Basophil# 0.02 X10^3/uL; Basophil% 0.5 % (0-1); Eosinophil# 0.05 X10^3/uL; Eosinophils% 1.3 % (0-5); Hemoglobin 12.6 g/dl (12.0-15.0); Lymphocyte # 0.84 X10^3/ul (4.0); Lymphocyte % 21.2 % (19-41); Mean Corp Hgb Conc 32.3 g/gl (32-36); Mean Corpuscular Hgb 32.5 pg (27.0-32.0); Mean Corpuscular Volume 100.5 fL (81-99); Mean Platelet Vol. 9.5 fl (6.2-12.0); Monocyte# 0.27 X10^3/uL; Monocyte% 6.8 % (0-10); Neutrophil # 2.72 X10^3/uL (2.7-7.7); Neutrophil % 68.4 % (47-70); Platelet Count 164 K/mm3 (150-450); RBC Distribution Width CV 14.2 % (11.6-14.6); RBC Distribution Width SD 51.8 fl (35.1-43.9); Red Blood Count 3.88 M/mm3 (4.2-5.4)
[2018-02-13] MEDS: levETIRAcetam 750 MG Tablet PO ×2 (06:05→17:22)
[2018-02-13] MEDS: Famotidine 20 MG Tablet PO ×2 (06:05→17:22)
[2018-02-13] MEDS: Enoxaparin 40 MG/0.4 ML Syringe SC (06:05)
[2018-02-13] MEDS: Senna/Docusate Sodium 1 Tablet 2 TABLET PO ×2 (06:06→17:22)
[2018-02-13] MEDS: Acetaminophen 500 MG Tablet 1000 MG PO (06:06)
[2018-02-13 06:07] LABS: BUN 23 mg/dL (7-18); BUN/Creat Ratio 26.5 RATIO (10-20); Calcium,Total 9.3 mg/dL (8.5-10.1); Chloride 105 mmol/L (98-107); Creatinine, Serum 0.87 mg/dL (0.55-1.02); EST Glomerular Filtration Rate 71 mL/min (>60); Est Glom Filt Rate - Afr Amer 86 mL/min (>60); Estimated Creatinine Clearance 70.23 ml/min; Glucose 89 mg/dL (74-106); Sodium Level 143 mmol/L (136-145)
[2018-02-13] MEDS: Sertraline 50 MG Tablet 25 MG PO (06:07)
[2018-02-13 06:08] LABS: Anion Gap 8 (5-15); CRP 6.94 mg/L (0.0-3.0); Vancomycin, Trough Level 13.2 ug/mL (5.0-15.0)
[2018-02-13 06:09] LABS: POSITIVE COUNT NO; POSITIVE DIFFERENTIAL NO; POSITIVE MORPHOLOGY NO
[2018-02-13 07:15] LABS: Erythrocyte Sedimentation Rate 31 mm/hr (0-30)
[2018-02-13] MEDS: 0.9% NaCl PICC Flush IV ×3 (08:03→17:25)
[2018-02-13] MEDS: 0.9% NaCl IVPB Med Flush (250 mL) 15 ML IV (08:03)
[2018-02-13] MEDS: Multivitamins,Therapeutic Tablet 1 TABLET PO (09:13)
[2018-02-13] MEDS: Gabapentin 300 MG Capsule PO ×2 (09:13→17:22)
[2018-02-13] MEDS: levoFLOXacin IV 500 MG/100 ML BAG 100 MG IV (09:43)
--- NOTE | 2018-02-13 10:12 | PCM.RX.CS ---
Consult Pharmacy has been consulted to manage selected antiobiotic: Vancomycin Type of Consult: Follow-up Suspected Infection: Skin/Soft tissue Prior Doses of Antibiotics Received/Current Regimen: VANCOMYCIN 750MG IV Q12HR: 02/12 @1828, 02/13 @0803 Labs: Sodium 143 mmol/L (136-145) 02/13/18 05:25 Potassium 4.0 mmol/L (3.5-5.1) 02/13/18 05:25 Chloride 105 mmol/L (98-107) 02/13/18 05:25 Carbon Dioxide 30.0 mmol/L (21.0-32.0) 02/13/18 05:25 Anion Gap 8 (5-15) 02/13/18 05:25 BUN 23 mg/dL (7-18) H 02/13/18 05:25 Creatinine 0.87 mg/dL (0.55-1.02) 02/13/18 05:25 Est GFR (MDRD) Af Amer 86 mL/min (>60) 02/13/18 05:25 Est GFR (MDRD) Non-Af 71 mL/min (>60) 02/13/18 05:25 BUN/Creatinine Ratio 26.5 RATIO (10-20) H 02/13/18 05:25 Glucose 89 mg/dL (74-106) 02/13/18 05:25 Vancomycin Trough 13.2 ug/mL (5.0-15.0) 02/13/18 05:25 Goal Trough: 10-15 mcg/mL Pharmacy Plan for Drug Dosing: The patient had a trough drawn which resulted in a value of 13.2 (drawn 11hrs from last administered dose). This is within the patient's goal trough range of 10-15. Will continue the current regimen. Trough scheduled 1 week from now to reassess dosing at that time. PLAN/RECOMMENDATIONS 1. Continue vancomycin 750mg IV Q12hrs 2. Trough scheduled 02/20/18 @0530 3. Pharmacy Service will continue to monitor and adjust dosing as required.
--- NOTE | 2018-02-13 12:10 | MDS.RN ---
Information for the mds was obtained from review of the clinical record, interview of resident, staff, and direct observation of resident's care.
[2018-02-13 15:31] VITALS: BP 109/73; PULSE 64; RESP 16; TEMP 36.7; O2SAT 94
--- NOTE | 2018-02-13 15:47 | NURSING ---
wound photo: left anterior lower leg
--- NOTE | 2018-02-13 15:48 | NURSING ---
wound photo: left posterior lower leg (achilles area)
[2018-02-13 21:00] VITALS: PULSE 64; RESP 20; O2SAT 94
[2018-02-14] MEDS: Enoxaparin 40 MG/0.4 ML Syringe SC (05:34)
[2018-02-14] MEDS: Acetaminophen 500 MG Tablet 1000 MG PO (05:34)
[2018-02-14] MEDS: Senna/Docusate Sodium 1 Tablet 2 TABLET PO ×2 (05:35→16:55)
[2018-02-14] MEDS: Sertraline 50 MG Tablet 25 MG PO (05:35)
[2018-02-14] MEDS: levETIRAcetam 750 MG Tablet PO ×2 (05:35→16:54)
[2018-02-14] MEDS: Famotidine 20 MG Tablet PO ×2 (05:35→16:54)
[2018-02-14 06:00] VITALS: PULSE 70; RESP 18; O2SAT 96
[2018-02-14] MEDS: 0.9% NaCl PICC Flush IV ×3 (06:55→16:55)
[2018-02-14] MEDS: 0.9% NaCl IVPB Med Flush (250 mL) 15 ML IV (06:55)
[2018-02-14] MEDS: Gabapentin 300 MG Capsule PO ×2 (08:08→16:54)
[2018-02-14] MEDS: Calcium (Elemental) 500 MG Tablet PO (08:08)
[2018-02-14] MEDS: Multivitamins,Therapeutic Tablet 1 TABLET PO (08:08)
--- NOTE | 2018-02-14 08:37 | NURSING ---
Pt took a shower this am, so dressings to the left leg were changed by the mine shifter nurse.
[2018-02-14] MEDS: levoFLOXacin IV 500 MG/100 ML BAG 100 MG IV (09:45)
--- NOTE | 2018-02-14 09:50 | CASEMGMT ---
Insurance Clinical information faxed. Pending continued stay approval at this time. Auth#[id number] Kendra GIVENS, DIGITAL PRODUCTION MANAGER
--- NOTE | 2018-02-14 13:16 | CASEMGMT ---
Insurance Continued stay approved with next update due on 02/20/18. Auth#[id number] Kendra GIVENS, MAPLE PRODUCTS SUPERVISOR
[2018-02-14 15:15] VITALS: BP 100/61; PULSE 71; RESP 24; TEMP 36.7; O2SAT 93
[2018-02-14] MEDS: oxyCODONE 5 MG Tablet 10 MG PO (16:16)
[2018-02-14] MEDS: diazePAM 5 MG Tablet PO (23:28)
[2018-02-15] MEDS: 0.9% NaCl PICC Flush IV ×2 (05:37→17:40)
[2018-02-15] MEDS: Acetaminophen 500 MG Tablet 1000 MG PO (05:41)
[2018-02-15] MEDS: Famotidine 20 MG Tablet PO ×2 (05:41→17:34)
[2018-02-15] MEDS: Sertraline 50 MG Tablet 25 MG PO (05:41)
[2018-02-15] MEDS: levETIRAcetam 750 MG Tablet PO ×2 (05:42→17:34)
[2018-02-15] MEDS: Senna/Docusate Sodium 1 Tablet 2 TABLET PO ×2 (05:42→17:34)
[2018-02-15] MEDS: Enoxaparin 40 MG/0.4 ML Syringe SC (05:43)
[2018-02-15] MEDS: Gabapentin 300 MG Capsule PO ×2 (07:53→17:34)
[2018-02-15] MEDS: Multivitamins,Therapeutic Tablet 1 TABLET PO (07:53)
[2018-02-15] MEDS: Calcium (Elemental) 500 MG Tablet PO (07:53)
[2018-02-15] MEDS: levoFLOXacin IV 500 MG/100 ML BAG 100 MG IV (10:03)
--- NOTE | 2018-02-15 14:29 | PN.SURG_ITS ---
Subjective: Postop #22 Patient is resting comfortably. - Physical Exam General: Alert, Oriented x3 HEENT: PERRLA, EOMI Oral: Moist Mucosa Neck: Supple Abdomen: Soft, Non-Distended Skin: Ulcer/ Wound - skin graft wounds show small amount of compromise. On the anterior skin graft about 25% mostly inferiorly and medially. The remaining graft shows good adherence and vascular ingrowth. On the posterior skin graft about 20% mostly superior. The remaining graft shows good adherence and vascular ingrowth., Incision - left flank incision is dry and intact and healing satisfactory. Lymphatic: - - no inguinal adenopathy. Neurological: Cranial nerves II-XII grossly intact Psych/Mental Status: Normal Affect, Appropriate Vital Signs Temp Pulse Resp BP Pulse Ox 98.1 F 71 24 H 100/61 93 02/14/18 15:15 02/14/18 15:15 02/14/18 15:15 02/14/18 15:15 02/14/18 15:15 Oxygen Delivery Method Room Air Weight: 186 lb Body Mass Index (BMI) 28.2 Intake and Output for Last 24 Hours 02/13/18 02/14/18 02/15/18 23:59 23:59 23:59 Intake Total 1420 / 1420 1930 / 1930 600 / 600 Balance 1420 / 1420 1930 / 1930 600 / 600 Medical Necessity - Tobacco Use Smoking Status: Former smoker Tobacco Use: Non-smoker Assessment/Plan All Active Problems (Last Updated 12/16/17 @ 17:12 by Sari Hawk DO) Other complications of skin graft (allograft) (autograft) (Acute) Failed skin graft (Acute) Complication of skin graft (Acute) Wound, open, lower limb with complication (Acute) Infected open wound (Acute) Brain tumor (Acute) MRSA (methicillin resistant staph aureus) culture positive (Acute) 1. Nonhealing ulcer left lower posterior leg in Achilles area. 2. Nonhealing ulcer left lower anterior leg. 3. Brain tumor - receiving chemotherapy. 4. s/p surgical preparation left lower posterior leg in Achilles area with excisional debridement nonhealing ulcer and reconstruction with STSG from left flank (5 cm2) and surgical preparation left lower anterior leg with excisional debridement nonhealing ulcer and reconstruction with STSG from left flank ( 15.75 cm2) and placement of CHELSEA NPWT device. 5. MRSE. 6. Mild compromise to skin grafts left leg. Continue Vancomycin IV for another week. Is also finishing up Levaquin po. She needs to start HBO treatments for her compromise to her skin grafts left leg. The wounds look clean at this point without residual drainage or exudate or cellulitis. She would have 4 weeks of Vancomycin and Levaquin instead of 6 weeks, but I want to get started on the HBO treatments which will help to salvage the compromised grafts like it did back in July after her previous skin graft surgery. So I think it is a safe trade-off to stop the IV antibiotics a little sooner than 6 weeks. Tentatively would like to stop the IV antibiotics next week with the hope of starting HBO treatments later next week or the first part of the following week.
[2018-02-15 15:52] VITALS: BP 123/85; PULSE 72; RESP 16; TEMP 36.7; O2SAT 93
[2018-02-15] MEDS: oxyCODONE 5 MG Tablet 10 MG PO (19:55)
[2018-02-16] MEDS: Polyethylene Glycol 3350 17 GM PACKET PO (05:03)
[2018-02-16] MEDS: levETIRAcetam 750 MG Tablet PO ×2 (05:14→17:19)
[2018-02-16] MEDS: Famotidine 20 MG Tablet PO ×2 (05:14→17:19)
[2018-02-16] MEDS: Sertraline 50 MG Tablet 25 MG PO (05:14)
[2018-02-16] MEDS: Enoxaparin 40 MG/0.4 ML Syringe SC (05:15)
[2018-02-16] MEDS: Acetaminophen 500 MG Tablet 1000 MG PO (05:22)
[2018-02-16] MEDS: Calcium (Elemental) 500 MG Tablet PO (08:28)
[2018-02-16] MEDS: Gabapentin 300 MG Capsule PO ×2 (08:28→17:18)
[2018-02-16] MEDS: Multivitamins,Therapeutic Tablet 1 TABLET PO (08:28)
[2018-02-16] MEDS: levoFLOXacin IV 500 MG/100 ML BAG 100 MG IV (09:42)
[2018-02-16] MEDS: 0.9% NaCl PICC Flush IV ×2 (09:42→17:18)
[2018-02-16 15:31] VITALS: BP 116/73; PULSE 68; RESP 18; TEMP 36.3; O2SAT 93
[2018-02-16] MEDS: Senna/Docusate Sodium 1 Tablet 2 TABLET PO (17:21)
[2018-02-16] MEDS: oxyCODONE 5 MG Tablet 10 MG PO (22:22)
[2018-02-17] MEDS: Acetaminophen 500 MG Tablet 1000 MG PO (05:09)
[2018-02-17] MEDS: levETIRAcetam 750 MG Tablet PO ×2 (05:09→17:58)
[2018-02-17] MEDS: Famotidine 20 MG Tablet PO ×2 (05:09→17:58)
[2018-02-17] MEDS: Polyethylene Glycol 3350 17 GM PACKET PO (05:09)
[2018-02-17] MEDS: Senna/Docusate Sodium 1 Tablet 2 TABLET PO (05:10)
[2018-02-17] MEDS: Sertraline 50 MG Tablet 25 MG PO (05:10)
[2018-02-17] MEDS: Enoxaparin 40 MG/0.4 ML Syringe SC (05:11)
[2018-02-17] MEDS: oxyCODONE 5 MG Tablet 10 MG PO ×2 (08:34→20:16)
[2018-02-17] MEDS: Calcium (Elemental) 500 MG Tablet PO (08:36)
[2018-02-17] MEDS: Gabapentin 300 MG Capsule PO ×2 (08:36→17:59)
[2018-02-17] MEDS: Multivitamins,Therapeutic Tablet 1 TABLET PO (08:36)
[2018-02-17] MEDS: 0.9% NaCl PICC Flush IV ×2 (08:44→18:00)
[2018-02-17] MEDS: levoFLOXacin IV 500 MG/100 ML BAG 100 MG IV (11:05)
[2018-02-17 16:00] VITALS: BP 110/71; PULSE 70; RESP 22; TEMP 36.5; O2SAT 94
[2018-02-17 21:14] VITALS: PULSE 68; RESP 18; O2SAT 98
[2018-02-17] MEDS: proMETHazine 25 MG Tablet PO (21:56)
[2018-02-18] MEDS: oxyCODONE 5 MG Tablet 10 MG PO ×2 (05:57→11:58)
[2018-02-18] MEDS: Enoxaparin 40 MG/0.4 ML Syringe SC (05:58)
[2018-02-18] MEDS: Famotidine 20 MG Tablet PO ×2 (05:58→16:43)
[2018-02-18] MEDS: Sertraline 50 MG Tablet 25 MG PO (05:59)
[2018-02-18] MEDS: levETIRAcetam 750 MG Tablet PO ×2 (05:59→16:43)
[2018-02-18] MEDS: Acetaminophen 500 MG Tablet 1000 MG PO (06:00)
[2018-02-18] MEDS: Senna/Docusate Sodium 1 Tablet 2 TABLET PO ×2 (06:01→16:43)
[2018-02-18] MEDS: proMETHazine 25 MG Tablet PO (06:35)
[2018-02-18] MEDS: 0.9% NaCl PICC Flush IV ×2 (06:57→16:41)
[2018-02-18] MEDS: Calcium (Elemental) 500 MG Tablet PO (08:12)
[2018-02-18] MEDS: Multivitamins,Therapeutic Tablet 1 TABLET PO (08:13)
[2018-02-18] MEDS: Gabapentin 300 MG Capsule PO ×2 (08:13→16:43)
[2018-02-18] MEDS: levoFLOXacin IV 500 MG/100 ML BAG 100 MG IV (10:25)
[2018-02-18 15:36] VITALS: BP 112/68; PULSE 70; RESP 20; TEMP 36.7; O2SAT 95
[2018-02-18 20:30] VITALS: RESP 16; O2SAT 97
[2018-02-19] MEDS: 0.9% NaCl PICC Flush IV ×4 (05:08→16:54)
[2018-02-19] MEDS: 0.9% NaCl IVPB Med Flush (250 mL) 15 ML IV (05:08)
[2018-02-19] MEDS: Acetaminophen 500 MG Tablet 1000 MG PO (05:12)
[2018-02-19] MEDS: Senna/Docusate Sodium 1 Tablet 2 TABLET PO ×2 (05:13→16:49)
[2018-02-19] MEDS: levETIRAcetam 750 MG Tablet PO ×2 (05:13→16:49)
[2018-02-19] MEDS: Sertraline 50 MG Tablet 25 MG PO (05:14)
[2018-02-19] MEDS: Famotidine 20 MG Tablet PO ×2 (05:16→16:49)
[2018-02-19] MEDS: Enoxaparin 40 MG/0.4 ML Syringe SC (05:17)
[2018-02-19] MEDS: Calcium (Elemental) 500 MG Tablet PO (07:56)
[2018-02-19] MEDS: Gabapentin 300 MG Capsule PO ×2 (07:57→16:49)
[2018-02-19] MEDS: Multivitamins,Therapeutic Tablet 1 TABLET PO (07:57)
[2018-02-19] MEDS: levoFLOXacin IV 500 MG/100 ML BAG 100 MG IV (09:33)
[2018-02-19 10:00] VITALS: PULSE 78; RESP 18; O2SAT 95
[2018-02-19] MEDS: oxyCODONE 5 MG Tablet 10 MG PO ×2 (10:58→22:13)
[2018-02-19 15:36] VITALS: BP 114/73; PULSE 60; RESP 18; TEMP 36.6; O2SAT 94
[2018-02-20] MEDS: 0.9% NaCl IVPB Med Flush (250 mL) 15 ML IV (05:30)
[2018-02-20] MEDS: 0.9% NaCl PICC Flush IV ×3 (05:40→10:54)
[2018-02-20] MEDS: Sertraline 50 MG Tablet 25 MG PO (06:01)
[2018-02-20] MEDS: Acetaminophen 500 MG Tablet 1000 MG PO (06:01)
[2018-02-20] MEDS: levETIRAcetam 750 MG Tablet PO ×2 (06:02→18:10)
[2018-02-20] MEDS: Famotidine 20 MG Tablet PO ×2 (06:02→18:10)
[2018-02-20] MEDS: Enoxaparin 40 MG/0.4 ML Syringe SC (06:03)
[2018-02-20 06:13] LABS: Anion Gap 8 (5-15); BUN 22 mg/dL (7-18); BUN/Creat Ratio 27.4 RATIO (10-20); CRP 4.57 mg/L (0.0-3.0); Calcium,Total 8.7 mg/dL (8.5-10.1); Chloride 105 mmol/L (98-107); EST Glomerular Filtration Rate 78 mL/min (>60); Est Glom Filt Rate - Afr Amer 94 mL/min (>60); Estimated Creatinine Clearance 76.38 ml/min; Glucose 88 mg/dL (74-106); Potassium 4.1 mmol/L (3.5-5.1); Sodium Level 145 mmol/L (136-145)
[2018-02-20 06:14] LABS: Vancomycin, Trough Level 11.2 ug/mL (5.0-15.0)
[2018-02-20 06:17] LABS: Absolute Lymphocyte Count 0.52 X10^3/ul (0.83-4.51); Absolute Neutrophil Count 2.6 X10^3/uL (2.0-7.7); Basophil# 0.02 X10^3/uL; Basophil% 0.5 % (0-1); Eosinophil# 0.04 X10^3/uL; Eosinophils% 1.1 % (0-5); Hematocrit 37.7 % (37-47); Lymphocyte # 0.52 X10^3/ul (4.0); Lymphocyte % 13.9 % (19-41); Mean Corp Hgb Conc 31.8 g/gl (32-36); Mean Corpuscular Hgb 32.5 pg (27.0-32.0); Mean Corpuscular Volume 102.2 fL (81-99); Mean Platelet Vol. 9.6 fl (6.2-12.0); Monocyte# 0.54 X10^3/uL; Monocyte% 14.4 % (0-10); Neutrophil # 2.55 X10^3/uL (2.7-7.7); Neutrophil % 68.2 % (47-70); Platelet Count 154 K/mm3 (150-450); RBC Distribution Width CV 14.3 % (11.6-14.6); RBC Distribution Width SD 52.6 fl (35.1-43.9); Red Blood Count 3.69 M/mm3 (4.2-5.4); White Blood Count 3.7 K/mm3 (4.4-11.0)
[2018-02-20 06:23] LABS: Differential Indicated SCAN CRITERIA MET; Erythrocyte Sedimentation Rate 17 mm/hr (0-30); POSITIVE COUNT NO; POSITIVE DIFFERENTIAL YES; POSITIVE MORPHOLOGY NO
[2018-02-20] MEDS: Gabapentin 300 MG Capsule PO ×2 (07:54→18:10)
[2018-02-20] MEDS: Multivitamins,Therapeutic Tablet 1 TABLET PO (07:54)
[2018-02-20] MEDS: Calcium (Elemental) 500 MG Tablet PO (07:54)
--- NOTE | 2018-02-20 09:00 | PCM.RX.CS ---
Consult Pharmacy has been consulted to manage selected antiobiotic: Vancomycin Type of Consult: Follow-up Suspected Infection: Skin/Soft tissue Prior Doses of Antibiotics Received/Current Regimen: VANCOMYCIN 750MG IV Q12HRS: 02/19 @0508, 1648 AND 02/20 @0620 Labs: Sodium 145 mmol/L (136-145) 02/20/18 05:35 Potassium 4.1 mmol/L (3.5-5.1) 02/20/18 05:35 Chloride 105 mmol/L (98-107) 02/20/18 05:35 Carbon Dioxide 32.0 mmol/L (21.0-32.0) 02/20/18 05:35 Anion Gap 8 (5-15) 02/20/18 05:35 BUN 22 mg/dL (7-18) H 02/20/18 05:35 Creatinine 0.80 mg/dL (0.55-1.02) 02/20/18 05:35 Est GFR (MDRD) Af Amer 94 mL/min (>60) 02/20/18 05:35 Est GFR (MDRD) Non-Af 78 mL/min (>60) 02/20/18 05:35 BUN/Creatinine Ratio 27.4 RATIO (10-20) H 02/20/18 05:35 Glucose 88 mg/dL (74-106) 02/20/18 05:35 Vancomycin Trough 11.2 ug/mL (5.0-15.0) 02/20/18 05:35 Goal Trough: 10-15 mcg/mL Pharmacy Plan for Drug Dosing: The patient had a trough drawn @0535, which resulted in a value of 11.2 (drawn~13hrs from last administered dose). Given that the previous dose was given early and the trough is within the goal of 10-15, will continue current regimen and recheck a trough in 1 week to reassess dosing at that time. PLAN/RECOMMENDATIONS 1. Continue vancomycin 750mg IV Q12hrs 2. Trough scheduled for 02/27/18 @0530 3. Pharmacy Service will continue to monitor and adjust dosing as required.
--- NOTE | 2018-02-20 09:03 | PHA.PHARE_ITS ---
Consult Pharmacy has been consulted to manage selected antiobiotic: Vancomycin Type of Consult: Follow-up Suspected Infection: Skin/Soft tissue Prior Doses of Antibiotics Received/Current Regimen: VANCOMYCIN 750MG IV Q12HRS: 02/19 @0508, 1648 AND 02/20 @0620 Labs: Sodium 145 mmol/L (136-145) 02/20/18 05:35 Potassium 4.1 mmol/L (3.5-5.1) 02/20/18 05:35 Chloride 105 mmol/L (98-107) 02/20/18 05:35 Carbon Dioxide 32.0 mmol/L (21.0-32.0) 02/20/18 05:35 Anion Gap 8 (5-15) 02/20/18 05:35 BUN 22 mg/dL (7-18) H 02/20/18 05:35 Creatinine 0.80 mg/dL (0.55-1.02) 02/20/18 05:35 Est GFR (MDRD) Af Amer 94 mL/min (>60) 02/20/18 05:35 Est GFR (MDRD) Non-Af 78 mL/min (>60) 02/20/18 05:35 BUN/Creatinine Ratio 27.4 RATIO (10-20) H 02/20/18 05:35 Glucose 88 mg/dL (74-106) 02/20/18 05:35 Vancomycin Trough 11.2 ug/mL (5.0-15.0) 02/20/18 05:35 Goal Trough: 10-15 mcg/mL Pharmacy Plan for Drug Dosing: The patient had a trough drawn @0535, which resulted in a value of 11.2 (drawn~ 13hrs from last administered dose). Given that the previous dose was given early and the trough is within the goal of 10-15, will continue current regimen and recheck a trough in 1 week to reassess dosing at that time. PLAN/RECOMMENDATIONS 1. Continue vancomycin 750mg IV Q12hrs 2. Trough scheduled for 02/27/18 @0530 3. Pharmacy Service will continue to monitor and adjust dosing as required.
[2018-02-20] MEDS: levoFLOXacin IV 500 MG/100 ML BAG 100 MG IV (10:55)
--- NOTE | 2018-02-20 11:23 | CASEMGMT ---
Insurance Clinical information sent. Pending continued stay approval at this time. Auth#[id number] Kendra GIVENS, STEEL ROLLER
[2018-02-20 15:18] VITALS: BP 129/67; PULSE 58; RESP 20; TEMP 36.7; O2SAT 94
[2018-02-20] MEDS: Senna/Docusate Sodium 1 Tablet 2 TABLET PO (18:10)
[2018-02-20] MEDS: oxyCODONE 5 MG Tablet 10 MG PO (19:55)
[2018-02-20] MEDS: diazePAM 5 MG Tablet PO (19:56)
[2018-02-20 21:44] VITALS: PULSE 68; RESP 18; O2SAT 97
[2018-02-21] MEDS: oxyCODONE 5 MG Tablet 10 MG PO ×3 (00:29→20:26)
[2018-02-21] MEDS: Acetaminophen 500 MG Tablet 1000 MG PO (06:06)
[2018-02-21] MEDS: Famotidine 20 MG Tablet PO ×2 (06:07→17:03)
[2018-02-21] MEDS: Enoxaparin 40 MG/0.4 ML Syringe SC (06:07)
[2018-02-21] MEDS: levETIRAcetam 750 MG Tablet PO ×2 (06:07→17:03)
[2018-02-21] MEDS: Sertraline 50 MG Tablet 25 MG PO (06:08)
[2018-02-21] MEDS: 0.9% NaCl IVPB Med Flush (250 mL) 15 ML IV (07:04)
[2018-02-21] MEDS: 0.9% NaCl PICC Flush IV ×2 (07:05→18:38)
[2018-02-21] MEDS: Multivitamins,Therapeutic Tablet 1 TABLET PO (08:50)
[2018-02-21] MEDS: Calcium (Elemental) 500 MG Tablet PO (08:51)
[2018-02-21] MEDS: Gabapentin 300 MG Capsule PO ×2 (08:51→17:03)
[2018-02-21] MEDS: levoFLOXacin IV 500 MG/100 ML BAG 100 MG IV (09:12)
--- NOTE | 2018-02-21 10:59 | NURSING ---
DRESSINGS DONE AT 9AM BY THIS NURSE. PT TOLERATED WELL.
[2018-02-21 15:56] VITALS: BP 112/71; PULSE 76; RESP 16; TEMP 36.4; O2SAT 95
[2018-02-21 21:30] VITALS: PULSE 74; RESP 18; O2SAT 95
[2018-02-22] MEDS: 0.9% NaCl IVPB Med Flush (250 mL) 15 ML IV (06:54)
[2018-02-22] MEDS: 0.9% NaCl PICC Flush IV ×3 (06:55→17:37)
[2018-02-22] MEDS: levETIRAcetam 750 MG Tablet PO ×2 (06:57→17:38)
[2018-02-22] MEDS: Famotidine 20 MG Tablet PO ×2 (06:57→17:38)
[2018-02-22] MEDS: Enoxaparin 40 MG/0.4 ML Syringe SC (06:57)
[2018-02-22] MEDS: Acetaminophen 500 MG Tablet 1000 MG PO (06:58)
[2018-02-22] MEDS: Sertraline 50 MG Tablet 25 MG PO (06:58)
[2018-02-22] MEDS: Gabapentin 300 MG Capsule PO ×2 (08:13→17:38)
[2018-02-22] MEDS: Multivitamins,Therapeutic Tablet 1 TABLET PO (08:13)
[2018-02-22] MEDS: Calcium (Elemental) 500 MG Tablet PO (08:13)
[2018-02-22] MEDS: levoFLOXacin IV 500 MG/100 ML BAG 100 MG IV (10:28)
[2018-02-22 15:29] VITALS: BP 100/63; PULSE 69; RESP 20; TEMP 35.8; O2SAT 96
[2018-02-22] MEDS: Senna/Docusate Sodium 1 Tablet 2 TABLET PO (17:38)
[2018-02-22 20:00] VITALS: PULSE 62; RESP 16; O2SAT 94
[2018-02-22] MEDS: oxyCODONE 5 MG Tablet 10 MG PO (22:19)
[2018-02-23] MEDS: 0.9% NaCl PICC Flush IV ×3 (05:36→18:16)
[2018-02-23] MEDS: 0.9% NaCl IVPB Med Flush (250 mL) 15 ML IV (05:36)
[2018-02-23] MEDS: Sertraline 50 MG Tablet 25 MG PO (06:18)
[2018-02-23] MEDS: Famotidine 20 MG Tablet PO ×2 (06:19→16:50)
[2018-02-23] MEDS: Acetaminophen 500 MG Tablet 1000 MG PO (06:19)
[2018-02-23] MEDS: levETIRAcetam 750 MG Tablet PO ×2 (06:20→16:50)
[2018-02-23] MEDS: Polyethylene Glycol 3350 17 GM PACKET PO (06:21)
[2018-02-23] MEDS: Enoxaparin 40 MG/0.4 ML Syringe SC (06:21)
[2018-02-23] MEDS: Multivitamins,Therapeutic Tablet 1 TABLET PO (07:43)
[2018-02-23] MEDS: Gabapentin 300 MG Capsule PO ×2 (07:43→16:50)
[2018-02-23] MEDS: Calcium (Elemental) 500 MG Tablet PO (07:44)
[2018-02-23 10:00] VITALS: PULSE 68; RESP 18; O2SAT 96
[2018-02-23] MEDS: levoFLOXacin IV 500 MG/100 ML BAG 100 MG IV (10:15)
[2018-02-23 15:17] VITALS: BP 114/64; PULSE 60; RESP 16; TEMP 36.2; O2SAT 95
[2018-02-23] MEDS: oxyCODONE 5 MG Tablet 10 MG PO (20:43)
[2018-02-24] MEDS: 0.9% NaCl PICC Flush IV (05:27)
[2018-02-24] MEDS: 0.9% NaCl IVPB Med Flush (250 mL) 15 ML IV (05:27)
[2018-02-24] MEDS: Acetaminophen 500 MG Tablet 1000 MG PO (05:47)
[2018-02-24] MEDS: Polyethylene Glycol 3350 17 GM PACKET PO (05:48)
[2018-02-24] MEDS: levETIRAcetam 750 MG Tablet PO ×2 (05:51→17:50)
[2018-02-24] MEDS: Enoxaparin 40 MG/0.4 ML Syringe SC (05:51)
[2018-02-24] MEDS: Famotidine 20 MG Tablet PO ×2 (05:52→17:51)
[2018-02-24] MEDS: Sertraline 50 MG Tablet 25 MG PO (05:52)
[2018-02-24] MEDS: Gabapentin 300 MG Capsule PO ×2 (08:26→17:51)
[2018-02-24] MEDS: Multivitamins,Therapeutic Tablet 1 TABLET PO (08:26)
[2018-02-24] MEDS: Calcium (Elemental) 500 MG Tablet PO (08:26)
[2018-02-24 10:00] VITALS: PULSE 72; RESP 18; O2SAT 95
--- NOTE | 2018-02-24 10:38 | CASEMGMT ---
Social Work Nursing paging Dr. Moya. Dr. Moya reporting that I.V. therapy can be discontinued. This would be that resident could discharge home tomorrow. Dr. Moya to be today to change resident to P.O. antibiotics. Spoke with resident in room. Resident plans to discharge home on 02/25/18. Resident becoming very tearful with this social sciences research scientist as resident is reporting to be so excited about being able to return home. Resident plans to discharge to home alone where resident daughter and niece assist with dressing changes. Resident is agreeable to have home health nursing to assist in managing the wound care. Resident requesting for home health services to be set up through [facility] ([facility]). Resident agreeable to this social sciences research scientist contacting resident daughterMarine in regards to discharge plan. Telephone call to [facility] [place]. Marine to contact this social sciences research scientist back. Resident reporting that family will provide transportation home for resident at time of discharge. Resident reporting to have all needed durable medical equipment needs already met. Support given. [facility] This social sciences research scientist making referral for [facility]. Order to be completed. Proposed discharge date: 02/25/18 PLAN: Discharge to home alone with home health services and family for support. Kendra GIVENS, STAVE HEWER
[2018-02-24 15:00] VITALS: BP 139/93; PULSE 66; RESP 16; TEMP 36.2; O2SAT 94
--- NOTE | 2018-02-24 15:23 | DCINST_ITS ---
- Discharge Diagnoses Current Active Problems: Current Active and Chronic Problems (Last Updated 12/16/17 @ 17:12 by Sari Hawk DO) GERD (gastroesophageal reflux disease) (Chronic) Nausea (Chronic) Seizure disorder (Chronic) Hypertension (Chronic) Anxiety (Chronic) Chronic pain (Chronic) Neuropathic pain (Chronic) You will use the following diet at home:: No restrictions, Regular Your food should be the consistency of: Regular Your liquids should be the consistency of: Regular/Thin Discharge Activity: Return to Normal Activity, May Shower, Use Walker Weight Bearing Status: Weight bearing as tolerated Call your doctor if you observe: Fever of 101 or Higher, Inability to urinate, Inability to have a bowel movement, Shortness of breath, Chest pain, Uncontrolled pain Allergies/Adverse Reactions: Allergies adhesive tape Adverse Reaction (Verified 01/19/18 10:54) VERY THIN STEROID SKIN WILL REMOVE SKIN IF ON TOO LONG Medications to take at Discharge Cholecalciferol (Vitamin D3) [Vitamin D3] 5,000 unit PO DAILY 03/02/17 Dexamethasone 2.5 mg PO DAILY 03/02/17 Famotidine [Pepcid] 20 mg PO BID 03/02/17 Multivitamin [Daily Multiple Vitamin] 1 each PO DAILY 03/02/17 Ondansetron [Zofran] 8 mg PO Q8H PRN PRN 03/02/17 Levetiracetam 750 mg PO BID 05/03/17 Calcium (Elemental) [Os-Guido 500] 500 mg PO DAILY 07/08/17 Lactobacillus Acidophilus [Acidophilus Lactobacilli] 1 each PO DAILY 07/08/17 proMETHazine tablet [Phenergan tablet] 25 mg PO Q4H PRN PRN 07/08/17 Gabapentin [Neurontin] 300 mg PO BIDCM 30 Days #60 08/17/17 Acetaminophen [Tylenol Extra Strength] 1,000 mg PO DAILY 01/24/18 Diazepam [Valium] 5 mg PO 4X/DAY PRN PRN #30 tab 01/31/18 Nutritional Supplement [Rodger - ORANGE FLAVOR] 1 packet PO BIDCM 01/31/18 Ondansetron [Zofran] 4 mg IV Q6H PRN PRN vial 01/31/18 Oxycodone [Oxyir] 10 mg PO Q4H PRN PRN 7 Days #60 tab 01/31/18 Polyethylene Glycol 3350 [Miralax] 17 gm PO DAILY 01/31/18 Potassium Chloride [K-Dur] 20 meq PO DAILYCM 01/31/18 Bisacodyl [Dulcolax] 10 mg PO DAILY PRN tablet 02/24/18 Senna/Docusate Sodium [Senokot-S] 2 tablet PO BID tablet 02/24/18 Sertraline HCl [Zoloft] 25 mg PO DAILY #30 tab 02/24/18 The following prescriptions were given: Sertraline HCl [Zoloft] 25 mg PO DAILY #30 tab Primary Care Physician: Loc Arizmendi DO [Primary Care Provider] - Please follow up with your Primary Care Physician in: 1 week. Test Results: Test results from this visit will be discussed in further detail at your follow- up appointment, if applicable. Proposed Discharge Date: 02/25/18
--- NOTE | 2018-02-24 15:23 | PCM.DC.SUM ---
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 without evidence of necrosis (Chronic) GERD (gastroesophageal reflux disease) (Chronic) Nausea (Chronic) Seizure disorder (Chronic) Hypertension (Chronic) Anxiety (Chronic) Chronic pain (Chronic) Neuropathic pain (Chronic) Glioblastoma multiforme (Chronic) Ulcers of both lower legs (Chronic) multiple infected ulcers bilateral legs L97.919 Debility, unspecified (Chronic) Hospital Course and Treatment Imaging Results: 01/31/18 18:33 Diet: Regular Diet Consultations 01/31/18 Consult: Onc/Wound/principal embedded software engineer Routine Comment: Reason for Consult:: LLE and left flank Operations: None, - - 06/24 17 - 1. Surgical preparation left posterior leg with incision and drainage and excisional debridement involving underlying tendon nonhealing ulcer (12 cm2). 2. Surgical preparation left inferolateral leg with incision and drainage and excisional debridement involving underlying muscle nonhealing ulcer (18 cm2). 3. Surgical preparation left superolateral leg with incision and drainage and excisional debridement involving underlying muscle nonhealing ulcer (24 cm2). 4. Surgical preparation left anterior lower leg with incision and drainage and excisional debridement involving underlying tendon and muscle nonhealing ulcer (30 cm2). 5. Surgical preparation right lateral leg with incision and drainage and excisional debridement involving underlying fascia nonhealing ulcer (15.75 cm2). 6. Surgical preparation right anterosuperior leg with incision and drainage and excisional debridement involving underlying fascia nonhealing ulcer (6.25 cm2). 7. Surgical preparation right lower leg/anterior ankle with incision and drainage and excisional debridement involving underlying periosteum nonhealing ulcer (16 cm2). 8. Surgical preparation right medial ankle with incision and drainage and excisional debridement involving underlying muscle nonhealing ulcer (8 cm2). Procedures: None Summary of Care Provided: The patient is a 57 year old Female with below past medical history significant for glioblastoma multiforme, hospitalized for left lower extremity ulcer surgery 01/24/[address] Moya, admitted to TCU for rehabilitation, strengthening, wound care, intravenous antibiotics, prior to discharge home alone. Discharge home alone with family for support. Discharge Diet: No Restrictions Discharge Activity: Return to Normal Activity, May Shower, Use Walker Weight Bearing Status: Weight bearing as tolerated Call your doctor if you observe: Fever of 101 or Higher, Inability to urinate, Inability to have a bowel movement, Shortness of breath, Chest pain, Uncontrolled pain Home Medications: Medications to take at Discharge Cholecalciferol (Vitamin D3) [Vitamin D3] 5,000 unit PO DAILY 03/02/17 Dexamethasone 2.5 mg PO DAILY 03/02/17 Famotidine [Pepcid] 20 mg PO BID 03/02/17 Multivitamin [Daily Multiple Vitamin] 1 each PO DAILY 03/02/17 Ondansetron [Zofran] 8 mg PO Q8H PRN PRN 03/02/17 Levetiracetam 750 mg PO BID 05/03/17 Calcium (Elemental) [Os-Guido 500] 500 mg PO DAILY 07/08/17 Lactobacillus Acidophilus [Acidophilus Lactobacilli] 1 each PO DAILY 07/08/17 proMETHazine tablet [Phenergan tablet] 25 mg PO Q4H PRN PRN 07/08/17 Gabapentin [Neurontin] 300 mg PO BIDCM 30 Days #60 08/17/17 Acetaminophen [Tylenol Extra Strength] 1,000 mg PO DAILY 01/24/18 Diazepam [Valium] 5 mg PO 4X/DAY PRN PRN #30 tab 01/31/18 Nutritional Supplement [Rodger - ORANGE FLAVOR] 1 packet PO BIDCM 01/31/18 Ondansetron [Zofran] 4 mg IV Q6H PRN PRN vial 01/31/18 Oxycodone [Oxyir] 10 mg PO Q4H PRN PRN 7 Days #60 tab 01/31/18 Polyethylene Glycol 3350 [Miralax] 17 gm PO DAILY 01/31/18 Potassium Chloride [K-Dur] 20 meq PO DAILYCM 01/31/18 Bisacodyl [Dulcolax] 10 mg PO DAILY PRN tablet 02/24/18 Senna/Docusate Sodium [Senokot-S] 2 tablet PO BID tablet 02/24/18 Sertraline HCl [Zoloft] 25 mg PO DAILY #30 tab 02/24/18 Following Prescrptions Were Given to Patient: Sertraline HCl [Zoloft] 25 mg PO DAILY #30 tab Primary Care Physician: Loc Arizmendi DO [Primary Care Provider] - Please follow up with your Primary Care Physician in: 1 week. Disposition: Home Minutes spent on discharge:: 30 Patient Condition:: Stable Medical Necessity - Tobacco Use Smoking Status: Former smoker Tobacco Use: Non-smoker Meaningful Use Info Meaningful Use Diagnoses (Choose all that apply): None applicable
--- NOTE | 2018-02-24 15:38 | CASEMGMT ---
Social Work Telephone call from resident daughter, Marine. Marine reporting to be able to manage wound within the home without home nursing and to have needed supplies for wound care. Marine is agreeable to all discharge planning. Resident also agreeable with Marine in regards to home health and is requesting for home health services to be canceled at this time. Support given. Telephone call to [facility] Mary FARRAR. This social services analyst canceling referral at this time. Proposed discharge date: 02/25/18 PLAN: Discharge to home alone with family for support. Kendra GIVENS, OPTICIAN APPRENTICE DISPENSING
--- NOTE | 2018-02-24 16:08 | PN.SURG_ITS ---
Subjective: Postop #31 Patient is resting comfortably. - Physical Exam General: Alert, Oriented x3 HEENT: PERRLA, EOMI, TM's Clear - no bleeding noted. Oral: Moist Mucosa Neck: Supple Abdomen: Soft, Non-Distended Skin: Ulcer/ Wound - skin grafts healing well. Small amount of compromise on the left anterior skin graft inferiorly, about 15%. Left posterior skin graft healing well. Small amount of compromise, about 5%., Incision - donor incision left flank healing well. Neurological: Cranial nerves II-XII grossly intact Psych/Mental Status: Normal Affect, Appropriate Vital Signs Temp Pulse Resp BP Pulse Ox 97.1 F L 66 16 139/93 H 94 02/24/18 15:00 02/24/18 15:00 02/24/18 15:00 02/24/18 15:00 02/24/18 15:00 Oxygen Delivery Method Room Air Weight: 189 lb 6 oz Body Mass Index (BMI) 28.2 Intake and Output for Last 24 Hours 02/22/18 02/23/18 02/24/18 23:59 23:59 23:59 Intake Total 840 / 840 1000 / 1000 480 / 480 Balance 840 / 840 1000 / 1000 480 / 480 Medical Necessity - Tobacco Use Smoking Status: Former smoker Tobacco Use: Non-smoker Assessment/Plan All Active Problems (Last Updated 12/16/17 @ 17:12 by Sari Hawk DO) Other complications of skin graft (allograft) (autograft) (Acute) Failed skin graft (Acute) Complication of skin graft (Acute) Wound, open, lower limb with complication (Acute) Infected open wound (Acute) Brain tumor (Acute) MRSA (methicillin resistant staph aureus) culture positive (Acute) 1. Nonhealing ulcer left lower posterior leg in Achilles area. 2. Nonhealing ulcer left lower anterior leg. 3. Brain tumor - receiving chemotherapy. 4. s/p surgical preparation left lower posterior leg in Achilles area with excisional debridement nonhealing ulcer and reconstruction with STSG from left flank (5 cm2) and surgical preparation left lower anterior leg with excisional debridement nonhealing ulcer and reconstruction with STSG from left flank ( 15.75 cm2) and placement of CHELSEA NPWT device. 5. MRSE. 6. Mild compromise to skin grafts left leg. The Vancomycin will be stopped. The PICC line will be pulled. She has had over 4 weeks of IV antibiotics. The grafts are healing well and are dry without exudate or moisture. Small amounts of compromise present. I want to get her started back on HBO treatments to help salvage the skin graft compromise. There are no oral equivalents to continue any more antibiotics except for Zyvox which is expensive. The last time I needed to use it in this patient, the insurance only approved a week's worth. That is why I kept her an extra week for additional IV antibiotics so we wouldn't have to worry about approval for the Zyvox after discharge. So she will go home without antibiotics at this time. Wrote script for Percocet for pain (30 tabs). She needs to start HBO treatments for her compromise to her skin grafts left leg. The wounds look clean at this point without residual drainage or exudate or cellulitis. Awaiting approval with her insurance company regarding future HBO treatments. Ok for discharge from my standpoint. Followup at the wound center on 03/06/18.
[2018-02-25] MEDS: oxyCODONE 5 MG Tablet 10 MG PO (00:02)
[2018-02-25] MEDS: Acetaminophen 500 MG Tablet 1000 MG PO (04:24)
[2018-02-25] MEDS: Sertraline 50 MG Tablet 25 MG PO (04:26)
[2018-02-25] MEDS: levETIRAcetam 750 MG Tablet PO ×2 (04:26→16:44)
[2018-02-25] MEDS: Famotidine 20 MG Tablet PO ×2 (04:27→16:44)
[2018-02-25] MEDS: Enoxaparin 40 MG/0.4 ML Syringe SC (04:29)
[2018-02-25 04:32] VITALS: PULSE 63; O2SAT 95
[2018-02-25] MEDS: Multivitamins,Therapeutic Tablet 1 TABLET PO (07:50)
[2018-02-25] MEDS: Gabapentin 300 MG Capsule PO ×2 (07:51→16:44)
[2018-02-25] MEDS: Calcium (Elemental) 500 MG Tablet PO (07:51)
--- NOTE | 2018-02-25 08:21 | NURSING ---
Dr. Moya paged to clarify PO antibiotics orders, states pt doesn't need PO antibiotics at this time
--- NOTE | 2018-02-25 12:12 | NURSING ---
Daughter Chanelle Vega called in, D/C instructions reviewed
[2018-02-25 15:23] VITALS: BP 108/76; PULSE 67; RESP 18; TEMP 36.2; O2SAT 93
[2018-02-25 16:00] VITALS: BP 108/76; PULSE 67; RESP 18; TEMP 36.2; O2SAT 93
--- NOTE | 2018-02-27 16:27 | CASEMGMT ---
Insurance Notified insurance of resident discharge to home alone on 02/25/18. Auth#[id number] Kendra GIVENS, METER READER CHIEF
--- NOTE | 2018-02-27 16:38 | CASEMGMT ---
Insurance Continued stay approved with last cover day being 02/24/18. Auth#[id number] Kendra GIVENS, TATY
== END 2018-02-25 18:19 | disposition home or self-care (01) | DRG 949 ==
PROVIDERS: Admitting Provider Family Medicine Geriatric Medicine; Family Provider Student in an Organized Health Care Education/Training Program; PCP Student in an Organized Health Care Education/Training Program; Visit Provider Family Medicine Geriatric Medicine
DX: Z48.817 Encounter for surgical aftercare following surgery on the skin and subcutaneous tissue (principal); C71.9 Malignant neoplasm of brain, unspecified; L97.819 Non-pressure chronic ulcer of other part of right lower leg with unspecified severity; T86.821 Skin graft (allograft) (autograft) failure; L97.825 Non-pressure chronic ulcer of other part of left lower leg with muscle involvement without evidence of necrosis; K21.9 Gastro-esophageal reflux disease without esophagitis; F32.9 Major depressive disorder, single episode, unspecified; G40.909 Epilepsy, unspecified, not intractable, without status epilepticus; E55.9 Vitamin D deficiency, unspecified; F41.9 Anxiety disorder, unspecified; E87.6 Hypokalemia; Z86.14 Personal history of Methicillin resistant Staphylococcus aureus infection; I10 Essential (primary) hypertension; G89.29 Other chronic pain; Z87.891 Personal history of nicotine dependence; Y83.8 Other surgical procedures as the cause of abnormal reaction of the patient, or of later complication, without mention of misadventure at the time of the procedure; B95.7 Other staphylococcus as the cause of diseases classified elsewhere
CPT/HCPCS: 36415; 36569; 80048; 80202; 85025; 85652; 86140; 97110; 97116; 97161; 97166; 97530; 97535; 97802; J2997; J7050; A4216

== ENCOUNTER 2018-03-16 08:00 | Outpatient (RCR) | payer BC, MEDICARE, SELFPAY ==
[2018-02-15 00:39] VITALS: BP 125/88; PULSE 54; RESP 16; TEMP 36.4
--- NOTE | 2018-03-03 15:06 | WC ---
Call received today from [employer] ([employer]) regarding Pre-Authorization for Hyperbaric Oxygen Therapy Patient has been approved for twenty (20) treatments (80 segments). Dates of Service are from 03/06- Reference #: [id number].
[2018-03-06 14:32] VITALS: BP 108/74; PULSE 61; RESP 16; TEMP 36
--- NOTE | 2018-03-06 22:33 | PCM.WC.PN ---
Type of Wound Date of Service: 03/06/18 Chief Complaint: Nonhealing ulcers left lower anterior leg and left posterior leg in Achilles area with skin grafting and mild compromise. History of Wound: Surgery 01/24/18 - 1. Surgical preparation left lower posterior leg in Achilles area with excisional debridement nonhealing ulcer and reconstruction with STSG from left flank (5 cm2). 2. Surgical preparation left lower anterior leg with excisional debridement nonhealing ulcer and reconstruction with STSG from left flank (15.75 cm2) and placement of CHELSEA NPWT device. Wound care - Silver. Operative culture - MRSE in both wounds. Prealbumin from 01/25/18 was 30.8. Encourage nutritional supplementation with protein to help the healing process. Today the patient denies fever. Her appetite is pretty good. Progress of Wound: Recent skin graft surgery 01/24/18 with mild compromise. - Physical Exam Vital Signs Temp Pulse Resp BP 96.8 F L 61 16 108/74 03/06/18 14:32 03/06/18 14:32 03/06/18 14:32 03/06/18 14:32 Wound Measurements and Assessment WC - Nurse 1 - General Ulcer Measurement Start: 03/06/18 14:32 Freq: Status: Active Protocol: Activity Type Activity Date Activity User E-Sign Co-Sign Detail Recorded Client Recorded Date Recorded By Document 03/06/18 14:32 [id number] 03/06/18 14:35 03/06/18 14:32 Wound Center Nurse 1 [Ulcer Assessment] #12 L Achilles -Combined with other wound No -Current Size (cm) - Length 0.2 -Current Size (cm) - Width 0.3 -Current Size (cm) - Depth 0.1 -Total Square Cm 0.06 -Photo Taken No -Epithelialization Large 67-100% -Temperature (Riddhi-wound Skin No Abnormality Appearance) (Pt Warm) -Tenderness on Palpation (Riddhi-wound No Skin Appearance) -Ulcer Cleansing Rinsed/ Irrigated with Saline -Foul Odor after Cleansing No -Anesthetic Used 5% Lidocaine Gel #17 L [place] -Combined with other wound No -Current Size (cm) - Length 0.4 -Current Size (cm) - Width 2.1 -Current Size (cm) - Depth 0.2 -Total Square Cm 0.84 -Photo Taken No -Epithelialization Medium 34-66% -Tunneling No -Undermining/Tunneling No -Circular Undermining No -Exudate Amt Small (1-33%) -Exudate Type Serosanguineous -Wound Margin Distinct, Outline Attached -Granulation Amt Small (1-33%) -Granulation Quality Red -Slough/Fibrin Yes -Necrosis Amt None Present (0 %) -Necrotic Tissue Type Adherent Slough -Structure Exposed None/Limited to Skin Breakdown -Texture (Riddhi-wound Skin Appearance) No Abnormality Assessed -Moisture (Riddhi-wound Skin Appearance No Abnormality ) Assessed -Color (Riddhi-wound Skin Appearance) No Abnormality Assessed -Temperature (Riddhi-wound Skin No Abnormality Appearance) (Pt Warm) -Tenderness on Palpation (Riddhi-wound No Skin Appearance) -Ulcer Cleansing Rinsed/ Irrigated with Saline -Foul Odor after Cleansing No -Anesthetic Used 5% Lidocaine Gel [Edema Assessment] -Lower Limb Edema Present Yes -Right Calf (cm) 35 -Right Ankle (cm) 22.5 -Left Calf (cm) 35 -Left Ankle (cm) 24 WC - Nurse 2 - General Ulcer CM Notes Start: 03/06/18 14:32 Freq: Status: Active Protocol: Activity Type Activity Date Activity User E-Sign Co-Sign Detail Recorded Client Recorded Date Recorded By Document 03/06/18 14:51 [id number] 03/06/18 14:52 03/06/18 14:51 Wound Center Nurse 2 [Procedure/Treatment] #12 L Achilles -Time 14:51 -Correct Patient Yes -Correct Side, Site, Position Yes -Correct Procedure Yes -Procedure Performed Yes -Type of Procedure Debridement -Clinical Debridement Subcutaneous -Post Debridement Size (cm) - Length 0.3 -Post Debridement Size (cm) - Width 0.3 -Post Debridement Size (cm) - Depth 0.1 -Total Square Cm 0.09 -Wound/Ulcer Outcome Not Healed -Ulcer Cleansing Rinsed/ Irrigated with Saline -Foul Odor after Cleansing No -Bioengineered Tissue No -Bleeding Controlled with Pressure -Treatment Response Procedure Tolerated Well #17 L [place] -Time 14:52 -Correct Patient Yes -Correct Side, Site, Position Yes -Correct Procedure Yes -Procedure Performed Yes -Type of Procedure Debridement -Clinical Debridement Subcutaneous -Post Debridement Size (cm) - Length 0.5 -Post Debridement Size (cm) - Width 2.1 -Post Debridement Size (cm) - Depth 0.2 -Total Square Cm 1.05 -Wound/Ulcer Outcome Not Healed -Ulcer Cleansing Rinsed/ Irrigated with Saline -Foul Odor after Cleansing No -Bioengineered Tissue No -Bleeding Controlled with Pressure -Treatment Response Procedure Tolerated Well [See Physician Procedure note for Specifics] Pain Scale: 0-10 Numeric [Pain] -Is Patient Pain Free? Yes Debridement Note Post-Debridement Measurements/Treatment WC - Nurse 2 - General Ulcer CM Notes Start: 03/06/18 14:32 Freq: Status: Active Protocol: Activity Type Activity Date Activity User E-Sign Co-Sign Detail Recorded Client Recorded Date Recorded By Document 03/06/18 14:51 [id number] 03/06/18 14:52 03/06/18 14:51 Wound Center Nurse 2 #12 L Achilles -Time 14:51 -Correct Patient Yes -Correct Side, Site, Position Yes -Correct Procedure Yes -Procedure Performed Yes -Type of Procedure Debridement -Clinical Debridement Subcutaneous -Post Debridement Size (cm) - Length 0.3 -Post Debridement Size (cm) - Width 0.3 -Post Debridement Size (cm) - Depth 0.1 -Total Square Cm 0.09 -Wound/Ulcer Outcome Not Healed -Ulcer Cleansing Rinsed/ Irrigated with Saline -Foul Odor after Cleansing No -Bioengineered Tissue No -Bleeding Controlled with Pressure -Treatment Response Procedure Tolerated Well #17 L [place] -Time 14:52 -Correct Patient Yes -Correct Side, Site, Position Yes -Correct Procedure Yes -Procedure Performed Yes -Type of Procedure Debridement -Clinical Debridement Subcutaneous -Post Debridement Size (cm) - Length 0.5 -Post Debridement Size (cm) - Width 2.1 -Post Debridement Size (cm) - Depth 0.2 -Total Square Cm 1.05 -Wound/Ulcer Outcome Not Healed -Ulcer Cleansing Rinsed/ Irrigated with Saline -Foul Odor after Cleansing No -Bioengineered Tissue No -Bleeding Controlled with Pressure -Treatment Response Procedure Tolerated Well Pain Scale: 0-10 Numeric Is Patient Pain Free? Yes Wound debrided: #12 Left posterior leg in Achilles area (ankle). Laterality: Left Wound Grade/Stage: 2. Type of Debridement: Excisional debridement Anesthesia Used: 4% Lidocaine Solution Depth: Down to and including healthy tissue, in the subcutaneous layer Percentage of wound debrided: 100 Instrument Used: 3mm curette Tissue Removed: subcutaneous tissue. Severity: Fat Layer Exposed Amount of bleeding with debridement: Mild Bleeding Controlled with: Pressure Patient tolerated procedure well - Additional Wound Wound debrided: #17 Left lower anterior leg. Laterality: Left Wound Grade/Stage: 2. Type of Debridement: Excisional debridement Anesthesia Used: 4% Lidocaine Solution Depth: Down to and including healthy tissue, in the subcutaneous layer Percentage of wound debrided: 100 Instrument Used: 3mm curette Tissue Removed: subcutaneous tissue. Severity: Fat Layer Exposed Amount of bleeding with debridement: Mild Bleeding Controlled with: Pressure Patient tolerated procedure: Patient tolerated procedure well Assessment/Plan Assessment: 1. Nonhealing ulcer left lower posterior leg in Achilles area. 2. Nonhealing ulcer left lower anterior leg. 3. Brain tumor - receiving chemotherapy. 4. s/p surgical preparation left lower posterior leg in Achilles area with excisional debridement nonhealing ulcer and reconstruction with STSG from left flank (5 cm2) and surgical preparation left lower anterior leg with excisional debridement nonhealing ulcer and reconstruction with STSG from left flank (15.75 cm2) and placement of CHELSEA NPWT device. 5. Mild compromise skin grafts left leg. Plan: Continue Silver dressings to the small compromised areas of her skin grafts left lower anterior leg and left posterior leg in the Achilles area. Continue the Tubigrip for compression. She will start HBO treatments today for the skin graft compromise to try and salvage the healing of the skin grafts. She has finished the Vancomycin for the operative cultures that showed MRSE. Her Prealbumin from 01/25/18 was 30.8. Encourage nutritional supplementation with protein to help the healing process. Followup 3 weeks.
[2018-03-08 11:31] VITALS: BP 123/78; BP 126/74; PULSE 54; PULSE 61; RESP 16; RESP 18; TEMP 36.1; TEMP 36.2
--- NOTE | 2018-03-08 18:35 | HBO.PN.PCM_ITS ---
History of Present Illness Date of Service: 03/08/18 Presenting Chief Complaint: Post - Op HBO therapy for left lower extremity skin graft. GEORGINA SKINNER is a 57 year old currently undergoing hyperbaric oxygen therapy for post -op left lower extremity skin graft. Progress: Hyperbaric oxygen therapy was administered today and was well tolerated by the patient. Today represents the first session. ( She has had prior sessions in the past ). Tolerance of hyperbaric oxygen therapy: Hyperbaric oxygen treatment was administered as per the facility's protocol. The patient tolerated hyperbaric oxygen therapy well, without complications. The hyperbaric oxygen treatment was completed in its entirety. Upon emergence from the hyperbaric chamber, patient' s vital signs were noted to be stable and was discharged in good condition. 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 without evidence of necrosis (Chronic) GERD (gastroesophageal reflux disease) (Chronic) Nausea (Chronic) Seizure disorder (Chronic) Hypertension (Chronic) Anxiety (Chronic) Chronic pain (Chronic) Neuropathic pain (Chronic) Glioblastoma multiforme (Chronic) Ulcers of both lower legs (Chronic) multiple infected ulcers bilateral legs L97.919 Debility, unspecified (Chronic) Allergies/Adverse Reactions: Allergies adhesive tape Adverse Reaction (Verified 01/19/18 10:54) VERY THIN STEROID SKIN WILL REMOVE SKIN IF ON TOO LONG Home Medications: Ambulatory Orders Medication Instructions Recorded Cholecalciferol (Vitamin D3) 5,000 unit PO DAILY 03/02/17 [Vitamin D3] Dexamethasone 2.5 mg PO DAILY 03/02/17 Famotidine [Pepcid] 20 mg PO BID 03/02/17 Multivitamin [Daily Multiple 1 each PO DAILY 03/02/17 Vitamin] Ondansetron [Zofran] 8 mg PO Q8H PRN PRN 03/02/17 Levetiracetam 750 mg PO BID 05/03/17 Calcium (Elemental) [Os-Guido 500] 500 mg PO DAILY 07/08/17 Lactobacillus Acidophilus 1 each PO DAILY 07/08/17 [Acidophilus Lactobacilli] Gabapentin [Neurontin] 300 mg PO BIDCM 30 Days #60 08/17/17 Acetaminophen [Tylenol Extra 1,000 mg PO DAILY 01/24/18 Strength] Diazepam [Valium] 5 mg PO 4X/DAY PRN PRN #30 tab 01/31/18 Nutritional Supplement [Rodger - 1 packet PO BIDCM 01/31/18 ORANGE FLAVOR] Ondansetron [Zofran] 4 mg IV Q6H PRN PRN vial 01/31/18 Oxycodone [Oxyir] 10 mg PO Q4H PRN PRN 7 Days #60 tab 01/31/18 Polyethylene Glycol 3350 [Miralax] 17 gm PO DAILY 01/31/18 Potassium Chloride [K-Dur] 20 meq PO DAILYCM 01/31/18 Bisacodyl [Dulcolax] 10 mg PO DAILY PRN tablet 02/24/18 Docusate Sodium [Colace] 100 mg PO BID #60 cap 02/24/18 Oxycodone HCl/Acetaminophen 1 tab PO 4X/DAY PRN PRN 7 Days #30 02/24/18 [Percocet 5/325] tab Senna/Docusate Sodium [Senokot-S] 2 tablet PO BID tablet 02/24/18 Sertraline HCl [Zoloft] 25 mg PO DAILY #30 tab 02/24/18 proMETHazine tablet [Phenergan 25 mg PO 4X/DAY PRN PRN #30 tab 02/24/18 tablet] Maternal Family History: No pertinent history Paternal Family History: No pertinent history Smoking Status: Never smoker Tobacco Use: Non-smoker Physical Exam Vital Signs Temp Pulse Resp BP 97.1 F L 61 18 126/74 H 03/08/18 11:31 03/08/18 11:31 03/08/18 11:31 03/08/18 11:31 General: Alert, Oriented x3, Cooperative, No apparent distress HEENT: Atraumatic, TM's Clear Lungs: Normal air movement Cardiovascular: Regular rate Psych/Mental Status: Normal Affect Assessment/Plan The patient appears to be tolerating hyperbaric oxygen therapy well which will be continued as per the patient's medical plan.
[2018-03-09 08:56] VITALS: BP 105/75; BP 111/76; PULSE 55; PULSE 65; RESP 16; TEMP 35.7; TEMP 36.5
--- NOTE | 2018-03-09 09:51 | HBO.PN.PCM_ITS ---
History of Present Illness Date of Service: 03/09/18 Presenting Chief Complaint: Post - Op HBO therapy for left lower extremity skin graft. GEORGINA SKINNER is a 57 year old currently undergoing hyperbaric oxygen therapy for post -op left lower extremity skin graft. Progress: Hyperbaric oxygen therapy was administered today and was well tolerated by the patient. Today represents the 2nd session. Tolerance of hyperbaric oxygen therapy: Hyperbaric oxygen treatment was administered as per the facility's protocol. The patient tolerated hyperbaric oxygen therapy well, without complications. The hyperbaric oxygen treatment was completed in its entirety. Upon emergence from the hyperbaric chamber, patient' s vital signs were noted to be stable and was discharged in good condition. 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 without evidence of necrosis (Chronic) GERD (gastroesophageal reflux disease) (Chronic) Nausea (Chronic) Seizure disorder (Chronic) Hypertension (Chronic) Anxiety (Chronic) Chronic pain (Chronic) Neuropathic pain (Chronic) Glioblastoma multiforme (Chronic) Ulcers of both lower legs (Chronic) multiple infected ulcers bilateral legs L97.919 Debility, unspecified (Chronic) Allergies/Adverse Reactions: Allergies adhesive tape Adverse Reaction (Verified 01/19/18 10:54) VERY THIN STEROID SKIN WILL REMOVE SKIN IF ON TOO LONG Home Medications: Ambulatory Orders Medication Instructions Recorded Cholecalciferol (Vitamin D3) 5,000 unit PO DAILY 03/02/17 [Vitamin D3] Dexamethasone 2.5 mg PO DAILY 03/02/17 Famotidine [Pepcid] 20 mg PO BID 03/02/17 Multivitamin [Daily Multiple 1 each PO DAILY 03/02/17 Vitamin] Ondansetron [Zofran] 8 mg PO Q8H PRN PRN 03/02/17 Levetiracetam 750 mg PO BID 05/03/17 Calcium (Elemental) [Os-Guido 500] 500 mg PO DAILY 07/08/17 Lactobacillus Acidophilus 1 each PO DAILY 07/08/17 [Acidophilus Lactobacilli] Gabapentin [Neurontin] 300 mg PO BIDCM 30 Days #60 08/17/17 Acetaminophen [Tylenol Extra 1,000 mg PO DAILY 01/24/18 Strength] Diazepam [Valium] 5 mg PO 4X/DAY PRN PRN #30 tab 01/31/18 Nutritional Supplement [Rodger - 1 packet PO BIDCM 01/31/18 ORANGE FLAVOR] Ondansetron [Zofran] 4 mg IV Q6H PRN PRN vial 01/31/18 Oxycodone [Oxyir] 10 mg PO Q4H PRN PRN 7 Days #60 tab 01/31/18 Polyethylene Glycol 3350 [Miralax] 17 gm PO DAILY 01/31/18 Potassium Chloride [K-Dur] 20 meq PO DAILYCM 01/31/18 Bisacodyl [Dulcolax] 10 mg PO DAILY PRN tablet 02/24/18 Docusate Sodium [Colace] 100 mg PO BID #60 cap 02/24/18 Oxycodone HCl/Acetaminophen 1 tab PO 4X/DAY PRN PRN 7 Days #30 02/24/18 [Percocet 5/325] tab Senna/Docusate Sodium [Senokot-S] 2 tablet PO BID tablet 02/24/18 Sertraline HCl [Zoloft] 25 mg PO DAILY #30 tab 02/24/18 proMETHazine tablet [Phenergan 25 mg PO 4X/DAY PRN PRN #30 tab 02/24/18 tablet] Maternal Family History: No pertinent history Paternal Family History: No pertinent history Smoking Status: Never smoker Tobacco Use: Non-smoker Physical Exam Vital Signs Temp Pulse Resp BP 97.7 F L 65 16 111/76 03/09/18 08:56 03/09/18 08:56 03/09/18 08:56 03/09/18 08:56 General: Alert, Oriented x3, Cooperative, No apparent distress HEENT: Atraumatic Lungs: Normal air movement Psych/Mental Status: Normal Affect Assessment/Plan The patient appears to be tolerating hyperbaric oxygen therapy well which will be continued as per the patient's medical plan.
[2018-03-14 11:17] VITALS: BP 112/67; BP 129/87; PULSE 54; PULSE 64; RESP 18; TEMP 35.9; TEMP 36.4
--- NOTE | 2018-03-14 13:43 | PCM.HBO.PN ---
History of Present Illness Date of Service: 03/14/18 Presenting Chief Complaint: Nonhealing ulcers bilateral legs s/p skin grafting with some compromise and nonhealing ulcer left posterior ankle. Post - Op HBO therapy for left lower extremity skin graft. GEORGINA SKINNER is a 57 year old currently undergoing hyperbaric oxygen therapy for post -op left lower extremity skin graft with compromise, and a chronic nonhealing wound. Progress: Hyperbaric oxygen therapy was administered today and was well tolerated by the patient. Today represents the 3rd session. Tolerance of hyperbaric oxygen therapy: Hyperbaric oxygen treatment was administered as per the facility's protocol. The patient tolerated hyperbaric oxygen therapy well, without complications or complaints. The hyperbaric oxygen treatment was completed in its entirety. Upon emergence from the hyperbaric chamber, patient's vital signs were noted to be stable and the patient was discharged in good condition. 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 without evidence of necrosis (Chronic) GERD (gastroesophageal reflux disease) (Chronic) Nausea (Chronic) Seizure disorder (Chronic) Hypertension (Chronic) Anxiety (Chronic) Chronic pain (Chronic) Neuropathic pain (Chronic) Glioblastoma multiforme (Chronic) Ulcers of both lower legs (Chronic) multiple infected ulcers bilateral legs L97.919 Debility, unspecified (Chronic) Allergies/Adverse Reactions: Allergies adhesive tape Adverse Reaction (Verified 01/19/18 10:54) VERY THIN STEROID SKIN WILL REMOVE SKIN IF ON TOO LONG Home Medications: Ambulatory Orders Medication Instructions Recorded Cholecalciferol (Vitamin D3) 5,000 unit PO DAILY 03/02/17 [Vitamin D3] Dexamethasone 2.5 mg PO DAILY 03/02/17 Famotidine [Pepcid] 20 mg PO BID 03/02/17 Multivitamin [Daily Multiple 1 each PO DAILY 03/02/17 Vitamin] Ondansetron [Zofran] 8 mg PO Q8H PRN PRN 03/02/17 Levetiracetam 750 mg PO BID 05/03/17 Calcium (Elemental) [Os-Guido 500] 500 mg PO DAILY 07/08/17 Lactobacillus Acidophilus 1 each PO DAILY 07/08/17 [Acidophilus Lactobacilli] Gabapentin [Neurontin] 300 mg PO BIDCM 30 Days #60 08/17/17 Acetaminophen [Tylenol Extra 1,000 mg PO DAILY 01/24/18 Strength] Diazepam [Valium] 5 mg PO 4X/DAY PRN PRN #30 tab 01/31/18 Nutritional Supplement [Rodger - 1 packet PO BIDCM 01/31/18 ORANGE FLAVOR] Ondansetron [Zofran] 4 mg IV Q6H PRN PRN vial 01/31/18 Oxycodone [Oxyir] 10 mg PO Q4H PRN PRN 7 Days #60 tab 01/31/18 Polyethylene Glycol 3350 [Miralax] 17 gm PO DAILY 01/31/18 Potassium Chloride [K-Dur] 20 meq PO DAILYCM 01/31/18 Bisacodyl [Dulcolax] 10 mg PO DAILY PRN tablet 02/24/18 Docusate Sodium [Colace] 100 mg PO BID #60 cap 02/24/18 Oxycodone HCl/Acetaminophen 1 tab PO 4X/DAY PRN PRN 7 Days #30 02/24/18 [Percocet 5/325] tab Senna/Docusate Sodium [Senokot-S] 2 tablet PO BID tablet 02/24/18 Sertraline HCl [Zoloft] 25 mg PO DAILY #30 tab 02/24/18 proMETHazine tablet [Phenergan 25 mg PO 4X/DAY PRN PRN #30 tab 02/24/18 tablet] Maternal Family History: No pertinent history Paternal Family History: No pertinent history Smoking Status: Never smoker Tobacco Use: Non-smoker Physical Exam Vital Signs Temp Pulse Resp BP 97.5 F L 64 18 112/67 03/14/18 11:17 03/14/18 11:17 03/14/18 11:17 03/14/18 11:17 General: Alert, Oriented x3, Cooperative, No apparent distress, Well developed, Well nourished HEENT: Atraumatic, PERRLA, EOMI, Normocephalic Lungs: Normal air movement Psych/Mental Status: Normal Affect, Appropriate, Alert and oriented to time, place, person, mood and affect Assessment/Plan The patient appears to be tolerating hyperbaric oxygen therapy well, which will be continued as per the patient's medical plan.
--- NOTE | 2018-03-15 09:05 | PCM.HBO.PN ---
History of Present Illness Date of Service: 03/15/18 Presenting Chief Complaint: Nonhealing ulcers bilateral legs s/p skin grafting with some compromise and nonhealing ulcer left posterior ankle. Post - Op HBO therapy for left lower extremity skin graft. GEORGINA SKINNER is a 57 year old currently undergoing hyperbaric oxygen therapy for post -op left lower extremity skin graft with compromise, and a chronic nonhealing wound. Progress: Hyperbaric oxygen therapy was administered today and was well tolerated by the patient. Tolerance of hyperbaric oxygen therapy: Hyperbaric oxygen treatment was administered as per the facility's protocol. The patient tolerated hyperbaric oxygen therapy well, without complications or complaints. Upon emergence from the hyperbaric chamber, patient's vital signs were noted to be stable and the patient was discharged in good condition. 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 without evidence of necrosis (Chronic) GERD (gastroesophageal reflux disease) (Chronic) Nausea (Chronic) Seizure disorder (Chronic) Hypertension (Chronic) Anxiety (Chronic) Chronic pain (Chronic) Neuropathic pain (Chronic) Glioblastoma multiforme (Chronic) Ulcers of both lower legs (Chronic) multiple infected ulcers bilateral legs L97.919 Debility, unspecified (Chronic) Allergies/Adverse Reactions: Allergies adhesive tape Adverse Reaction (Verified 01/19/18 10:54) VERY THIN STEROID SKIN WILL REMOVE SKIN IF ON TOO LONG Home Medications: Ambulatory Orders Medication Instructions Recorded Cholecalciferol (Vitamin D3) 5,000 unit PO DAILY 03/02/17 [Vitamin D3] Dexamethasone 2.5 mg PO DAILY 03/02/17 Famotidine [Pepcid] 20 mg PO BID 03/02/17 Multivitamin [Daily Multiple 1 each PO DAILY 03/02/17 Vitamin] Ondansetron [Zofran] 8 mg PO Q8H PRN PRN 03/02/17 Levetiracetam 750 mg PO BID 05/03/17 Calcium (Elemental) [Os-Guido 500] 500 mg PO DAILY 07/08/17 Lactobacillus Acidophilus 1 each PO DAILY 07/08/17 [Acidophilus Lactobacilli] Gabapentin [Neurontin] 300 mg PO BIDCM 30 Days #60 08/17/17 Acetaminophen [Tylenol Extra 1,000 mg PO DAILY 01/24/18 Strength] Diazepam [Valium] 5 mg PO 4X/DAY PRN PRN #30 tab 01/31/18 Nutritional Supplement [Rodger - 1 packet PO BIDCM 01/31/18 ORANGE FLAVOR] Ondansetron [Zofran] 4 mg IV Q6H PRN PRN vial 01/31/18 Oxycodone [Oxyir] 10 mg PO Q4H PRN PRN 7 Days #60 tab 01/31/18 Polyethylene Glycol 3350 [Miralax] 17 gm PO DAILY 01/31/18 Potassium Chloride [K-Dur] 20 meq PO DAILYCM 01/31/18 Bisacodyl [Dulcolax] 10 mg PO DAILY PRN tablet 02/24/18 Docusate Sodium [Colace] 100 mg PO BID #60 cap 02/24/18 Oxycodone HCl/Acetaminophen 1 tab PO 4X/DAY PRN PRN 7 Days #30 02/24/18 [Percocet 5/325] tab Senna/Docusate Sodium [Senokot-S] 2 tablet PO BID tablet 02/24/18 Sertraline HCl [Zoloft] 25 mg PO DAILY #30 tab 02/24/18 proMETHazine tablet [Phenergan 25 mg PO 4X/DAY PRN PRN #30 tab 02/24/18 tablet] Maternal Family History: No pertinent history Paternal Family History: No pertinent history Smoking Status: Never smoker Tobacco Use: Non-smoker Physical Exam Vital Signs Temp Pulse Resp BP 97.5 F L 64 18 112/67 03/14/18 11:17 03/14/18 11:17 03/14/18 11:17 03/14/18 11:17 General: Alert, Oriented x3, Cooperative, No apparent distress HEENT: Atraumatic Lungs: Normal air movement Psych/Mental Status: Normal Affect Assessment/Plan The patient appears to be tolerating hyperbaric oxygen therapy well, which will be continued as per the patient's medical plan.
[2018-03-15 09:11] VITALS: BP 120/78; PULSE 76; RESP 16; TEMP 36.4
[2018-03-16 08:13] VITALS: BP 118/71; BP 122/81; PULSE 57; PULSE 61; RESP 16; TEMP 35.7; TEMP 36.1
--- NOTE | 2018-03-16 09:09 | PCM.HBO.PN ---
History of Present Illness Date of Service: 03/16/18 Presenting Chief Complaint: Nonhealing ulcers bilateral legs s/p skin grafting with some compromise and nonhealing ulcer left posterior ankle. Post - Op HBO therapy for left lower extremity skin graft. GEORGINA SKINNER is a 57 year old currently undergoing hyperbaric oxygen therapy for post -op left lower extremity skin graft with compromise, and a chronic nonhealing wound. Progress: Hyperbaric oxygen therapy was administered today and was well tolerated by the patient. Tolerance of hyperbaric oxygen therapy: Hyperbaric oxygen treatment was administered as per the facility's protocol. The patient tolerated hyperbaric oxygen therapy well, without complications or complaints. Upon emergence from the hyperbaric chamber, patient's vital signs were noted to be stable and the patient was discharged in good condition. 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 without evidence of necrosis (Chronic) GERD (gastroesophageal reflux disease) (Chronic) Nausea (Chronic) Seizure disorder (Chronic) Hypertension (Chronic) Anxiety (Chronic) Chronic pain (Chronic) Neuropathic pain (Chronic) Glioblastoma multiforme (Chronic) Ulcers of both lower legs (Chronic) multiple infected ulcers bilateral legs L97.919 Debility, unspecified (Chronic) Allergies/Adverse Reactions: Allergies adhesive tape Adverse Reaction (Verified 01/19/18 10:54) VERY THIN STEROID SKIN WILL REMOVE SKIN IF ON TOO LONG Home Medications: Ambulatory Orders Medication Instructions Recorded Cholecalciferol (Vitamin D3) 5,000 unit PO DAILY 03/02/17 [Vitamin D3] Dexamethasone 2.5 mg PO DAILY 03/02/17 Famotidine [Pepcid] 20 mg PO BID 03/02/17 Multivitamin [Daily Multiple 1 each PO DAILY 03/02/17 Vitamin] Ondansetron [Zofran] 8 mg PO Q8H PRN PRN 03/02/17 Levetiracetam 750 mg PO BID 05/03/17 Calcium (Elemental) [Os-Guido 500] 500 mg PO DAILY 07/08/17 Lactobacillus Acidophilus 1 each PO DAILY 07/08/17 [Acidophilus Lactobacilli] Gabapentin [Neurontin] 300 mg PO BIDCM 30 Days #60 08/17/17 Acetaminophen [Tylenol Extra 1,000 mg PO DAILY 01/24/18 Strength] Diazepam [Valium] 5 mg PO 4X/DAY PRN PRN #30 tab 01/31/18 Nutritional Supplement [Rodger - 1 packet PO BIDCM 01/31/18 ORANGE FLAVOR] Ondansetron [Zofran] 4 mg IV Q6H PRN PRN vial 01/31/18 Oxycodone [Oxyir] 10 mg PO Q4H PRN PRN 7 Days #60 tab 01/31/18 Polyethylene Glycol 3350 [Miralax] 17 gm PO DAILY 01/31/18 Potassium Chloride [K-Dur] 20 meq PO DAILYCM 01/31/18 Bisacodyl [Dulcolax] 10 mg PO DAILY PRN tablet 02/24/18 Docusate Sodium [Colace] 100 mg PO BID #60 cap 02/24/18 Oxycodone HCl/Acetaminophen 1 tab PO 4X/DAY PRN PRN 7 Days #30 02/24/18 [Percocet 5/325] tab Senna/Docusate Sodium [Senokot-S] 2 tablet PO BID tablet 02/24/18 Sertraline HCl [Zoloft] 25 mg PO DAILY #30 tab 02/24/18 proMETHazine tablet [Phenergan 25 mg PO 4X/DAY PRN PRN #30 tab 02/24/18 tablet] Maternal Family History: No pertinent history Paternal Family History: No pertinent history Smoking Status: Never smoker Tobacco Use: Non-smoker Physical Exam Vital Signs Temp Pulse Resp BP 96.9 F L 61 16 118/71 03/16/18 08:13 03/16/18 08:13 03/16/18 08:13 03/16/18 08:13 General: Alert, Oriented x3, Cooperative, No apparent distress HEENT: Atraumatic Lungs: Normal air movement Psych/Mental Status: Normal Affect Assessment/Plan The patient appears to be tolerating hyperbaric oxygen therapy well, which will be continued as per the patient's medical plan.
== END 2018-03-17 23:59 ==
LOC: WC 08:00
PROVIDERS: Family Provider Student in an Organized Health Care Education/Training Program; PCP Student in an Organized Health Care Education/Training Program; Visit Provider Surgery
DX: T86.828 Other complications of skin graft (allograft) (autograft) (principal); Y83.8 Other surgical procedures as the cause of abnormal reaction of the patient, or of later complication, without mention of misadventure at the time of the procedure; K21.9 Gastro-esophageal reflux disease without esophagitis; C71.9 Malignant neoplasm of brain, unspecified; I10 Essential (primary) hypertension; Z79.899 Other long term (current) drug therapy; L97.322 Non-pressure chronic ulcer of left ankle with fat layer exposed; L97.822 Non-pressure chronic ulcer of other part of left lower leg with fat layer exposed; G89.29 Other chronic pain
CPT/HCPCS: 11042; 99183; G0277

== ENCOUNTER 2018-04-10 08:00 | Outpatient (RCR) | payer BC, MEDICARE, SELFPAY ==
[2018-03-18 00:50] VITALS: BP 122/81; PULSE 57; RESP 16; TEMP 35.7
[2018-03-21 08:11] VITALS: BP 112/79; BP 118/73; PULSE 53; PULSE 77; RESP 16; TEMP 36; TEMP 36.2
--- NOTE | 2018-03-21 13:42 | PCM.HBO.PN ---
History of Present Illness Date of Service: 03/21/18 Presenting Chief Complaint: Nonhealing ulcers bilateral legs s/p skin grafting with some compromise and nonhealing ulcer left posterior ankle. Post - Op HBO therapy for left lower extremity skin graft. GEORGINA SKINNER is a 57 year old currently undergoing hyperbaric oxygen therapy for nonhealing ulcers bilateral legs s/p skin grafting with some compromise (compromised graft) and nonhealing ulcer left posterior ankle. Post - Op HBO therapy for left lower extremity skin graft. Progress: This represents the 6 such session of hyperbaric oxygen therapy. Patient appears to be tolerating HBO therapy well. Tolerance of hyperbaric oxygen therapy: Hyperbaric oxygen therapy was administered as per the facility's protocol. The patient tolerated hyperbaric oxygen therapy well, without complaints or complications. Upon emergence from the hyperbaric chamber, the patient's vital signs remained stable. The patient was discharged in good condition. 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 without evidence of necrosis (Chronic) GERD (gastroesophageal reflux disease) (Chronic) Nausea (Chronic) Seizure disorder (Chronic) Hypertension (Chronic) Anxiety (Chronic) Chronic pain (Chronic) Neuropathic pain (Chronic) Glioblastoma multiforme (Chronic) Ulcers of both lower legs (Chronic) multiple infected ulcers bilateral legs L97.919 Debility, unspecified (Chronic) Allergies/Adverse Reactions: Allergies adhesive tape Adverse Reaction (Verified 01/19/18 10:54) VERY THIN STEROID SKIN WILL REMOVE SKIN IF ON TOO LONG Home Medications: Ambulatory Orders Medication Instructions Recorded Cholecalciferol (Vitamin D3) 5,000 unit PO DAILY 03/02/17 [Vitamin D3] Dexamethasone 2.5 mg PO DAILY 03/02/17 Famotidine [Pepcid] 20 mg PO BID 03/02/17 Multivitamin [Daily Multiple 1 each PO DAILY 03/02/17 Vitamin] Ondansetron [Zofran] 8 mg PO Q8H PRN PRN 03/02/17 Levetiracetam 750 mg PO BID 05/03/17 Calcium (Elemental) [Os-Guido 500] 500 mg PO DAILY 07/08/17 Lactobacillus Acidophilus 1 each PO DAILY 07/08/17 [Acidophilus Lactobacilli] Gabapentin [Neurontin] 300 mg PO BIDCM 30 Days #60 08/17/17 Acetaminophen [Tylenol Extra 1,000 mg PO DAILY 01/24/18 Strength] Diazepam [Valium] 5 mg PO 4X/DAY PRN PRN #30 tab 01/31/18 Nutritional Supplement [Rodger - 1 packet PO BIDCM 01/31/18 ORANGE FLAVOR] Ondansetron [Zofran] 4 mg IV Q6H PRN PRN vial 01/31/18 Oxycodone [Oxyir] 10 mg PO Q4H PRN PRN 7 Days #60 tab 01/31/18 Polyethylene Glycol 3350 [Miralax] 17 gm PO DAILY 01/31/18 Potassium Chloride [K-Dur] 20 meq PO DAILYCM 01/31/18 Bisacodyl [Dulcolax] 10 mg PO DAILY PRN tablet 02/24/18 Docusate Sodium [Colace] 100 mg PO BID #60 cap 02/24/18 Oxycodone HCl/Acetaminophen 1 tab PO 4X/DAY PRN PRN 7 Days #30 02/24/18 [Percocet 5/325] tab Senna/Docusate Sodium [Senokot-S] 2 tablet PO BID tablet 02/24/18 Sertraline HCl [Zoloft] 25 mg PO DAILY #30 tab 02/24/18 proMETHazine tablet [Phenergan 25 mg PO 4X/DAY PRN PRN #30 tab 02/24/18 tablet] Maternal Family History: No pertinent history Paternal Family History: No pertinent history Smoking Status: Never smoker Tobacco Use: Non-smoker Physical Exam Vital Signs Temp Pulse Resp BP 97.1 F L 77 16 112/79 03/21/18 08:11 03/21/18 08:11 03/21/18 08:11 03/21/18 08:11 General: Alert, Oriented x3, Cooperative, No apparent distress, Well developed, Well nourished HEENT: Atraumatic, PERRLA, EOMI, Normocephalic Lungs: Normal air movement Psych/Mental Status: Normal Affect, Appropriate, Alert and oriented to time, place, person, mood and affect Assessment/Plan The patient appears to be tolerating hyperbaric oxygen therapy well, which will be continued as per the patient's medical plan.
[2018-03-22 08:57] VITALS: BP 119/77; BP 136/84; PULSE 55; PULSE 56; RESP 16; TEMP 36.4; TEMP 36.6
--- NOTE | 2018-03-22 12:58 | PCM.HBO.PN ---
History of Present Illness Date of Service: 03/22/18 Presenting Chief Complaint: Nonhealing ulcers bilateral legs s/p skin grafting with some compromise and nonhealing ulcer left posterior ankle. Post - Op HBO therapy for left lower extremity skin graft. GEORGINA SKINNER is a 57 year old currently undergoing hyperbaric oxygen therapy for nonhealing ulcers bilateral legs s/p skin grafting with some compromise (compromised graft) and nonhealing ulcer left posterior ankle. Post - Op HBO therapy for left lower extremity skin graft. Progress: This represents the 7Th such session of hyperbaric oxygen therapy. Patient appears to be tolerating HBO therapy well. Tolerance of hyperbaric oxygen therapy: Hyperbaric oxygen therapy was administered as per the facility's protocol. The patient tolerated hyperbaric oxygen therapy well, without complaints or complications. Upon emergence from the hyperbaric chamber, the patient's vital signs remained stable. The patient was discharged in good condition. 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 without evidence of necrosis (Chronic) GERD (gastroesophageal reflux disease) (Chronic) Nausea (Chronic) Seizure disorder (Chronic) Hypertension (Chronic) Anxiety (Chronic) Chronic pain (Chronic) Neuropathic pain (Chronic) Glioblastoma multiforme (Chronic) Ulcers of both lower legs (Chronic) multiple infected ulcers bilateral legs L97.919 Debility, unspecified (Chronic) Allergies/Adverse Reactions: Allergies adhesive tape Adverse Reaction (Verified 01/19/18 10:54) VERY THIN STEROID SKIN WILL REMOVE SKIN IF ON TOO LONG Home Medications: Ambulatory Orders Medication Instructions Recorded Cholecalciferol (Vitamin D3) 5,000 unit PO DAILY 03/02/17 [Vitamin D3] Dexamethasone 2.5 mg PO DAILY 03/02/17 Famotidine [Pepcid] 20 mg PO BID 03/02/17 Multivitamin [Daily Multiple 1 each PO DAILY 03/02/17 Vitamin] Ondansetron [Zofran] 8 mg PO Q8H PRN PRN 03/02/17 Levetiracetam 750 mg PO BID 05/03/17 Calcium (Elemental) [Os-Guido 500] 500 mg PO DAILY 07/08/17 Lactobacillus Acidophilus 1 each PO DAILY 07/08/17 [Acidophilus Lactobacilli] Gabapentin [Neurontin] 300 mg PO BIDCM 30 Days #60 08/17/17 Acetaminophen [Tylenol Extra 1,000 mg PO DAILY 01/24/18 Strength] Diazepam [Valium] 5 mg PO 4X/DAY PRN PRN #30 tab 01/31/18 Nutritional Supplement [Rodger - 1 packet PO BIDCM 01/31/18 ORANGE FLAVOR] Ondansetron [Zofran] 4 mg IV Q6H PRN PRN vial 01/31/18 Oxycodone [Oxyir] 10 mg PO Q4H PRN PRN 7 Days #60 tab 01/31/18 Polyethylene Glycol 3350 [Miralax] 17 gm PO DAILY 01/31/18 Potassium Chloride [K-Dur] 20 meq PO DAILYCM 01/31/18 Bisacodyl [Dulcolax] 10 mg PO DAILY PRN tablet 02/24/18 Docusate Sodium [Colace] 100 mg PO BID #60 cap 02/24/18 Oxycodone HCl/Acetaminophen 1 tab PO 4X/DAY PRN PRN 7 Days #30 02/24/18 [Percocet 5/325] tab Senna/Docusate Sodium [Senokot-S] 2 tablet PO BID tablet 02/24/18 Sertraline HCl [Zoloft] 25 mg PO DAILY #30 tab 02/24/18 proMETHazine tablet [Phenergan 25 mg PO 4X/DAY PRN PRN #30 tab 02/24/18 tablet] Maternal Family History: No pertinent history Paternal Family History: No pertinent history Smoking Status: Never smoker Tobacco Use: Non-smoker Physical Exam Vital Signs Temp Pulse Resp BP 97.8 F 56 L 16 119/77 03/22/18 08:57 03/22/18 08:57 03/22/18 08:57 03/22/18 08:57 General: Alert, Oriented x3, Cooperative, No apparent distress HEENT: Atraumatic Lungs: Normal air movement Cardiovascular: Regular rate Psych/Mental Status: Normal Affect Assessment/Plan The patient appears to be tolerating hyperbaric oxygen therapy well, which will be continued as per the patient's medical plan.
[2018-03-23 09:21] VITALS: BP 115/82; BP 126/77; PULSE 59; PULSE 71; RESP 16; TEMP 36.4; TEMP 36.6
--- NOTE | 2018-03-23 09:25 | PCM.HBO.PN ---
History of Present Illness Date of Service: 03/23/18 Presenting Chief Complaint: Nonhealing ulcers bilateral legs s/p skin grafting with some compromise and nonhealing ulcer left posterior ankle. Post - Op HBO therapy for left lower extremity skin graft. GEORGINA SKINNER is a 57 year old currently undergoing hyperbaric oxygen therapy for nonhealing ulcers bilateral legs s/p skin grafting with some compromise (compromised graft) and nonhealing ulcer left posterior ankle. Post - Op HBO therapy for left lower extremity skin graft. Progress: This represents the 8Th such session of hyperbaric oxygen therapy. Patient appears to be tolerating HBO therapy well. Tolerance of hyperbaric oxygen therapy: Hyperbaric oxygen therapy was administered as per the facility's protocol. The patient tolerated hyperbaric oxygen therapy well, without complaints or complications. Upon emergence from the hyperbaric chamber, the patient's vital signs remained stable. The patient was discharged in good condition. 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 without evidence of necrosis (Chronic) GERD (gastroesophageal reflux disease) (Chronic) Nausea (Chronic) Seizure disorder (Chronic) Hypertension (Chronic) Anxiety (Chronic) Chronic pain (Chronic) Neuropathic pain (Chronic) Glioblastoma multiforme (Chronic) Ulcers of both lower legs (Chronic) multiple infected ulcers bilateral legs L97.919 Debility, unspecified (Chronic) Allergies/Adverse Reactions: Allergies adhesive tape Adverse Reaction (Verified 01/19/18 10:54) VERY THIN STEROID SKIN WILL REMOVE SKIN IF ON TOO LONG Home Medications: Ambulatory Orders Medication Instructions Recorded Cholecalciferol (Vitamin D3) 5,000 unit PO DAILY 03/02/17 [Vitamin D3] Dexamethasone 2.5 mg PO DAILY 03/02/17 Famotidine [Pepcid] 20 mg PO BID 03/02/17 Multivitamin [Daily Multiple 1 each PO DAILY 03/02/17 Vitamin] Ondansetron [Zofran] 8 mg PO Q8H PRN PRN 03/02/17 Levetiracetam 750 mg PO BID 05/03/17 Calcium (Elemental) [Os-Guido 500] 500 mg PO DAILY 07/08/17 Lactobacillus Acidophilus 1 each PO DAILY 07/08/17 [Acidophilus Lactobacilli] Gabapentin [Neurontin] 300 mg PO BIDCM 30 Days #60 08/17/17 Acetaminophen [Tylenol Extra 1,000 mg PO DAILY 01/24/18 Strength] Diazepam [Valium] 5 mg PO 4X/DAY PRN PRN #30 tab 01/31/18 Nutritional Supplement [Rodger - 1 packet PO BIDCM 01/31/18 ORANGE FLAVOR] Ondansetron [Zofran] 4 mg IV Q6H PRN PRN vial 01/31/18 Oxycodone [Oxyir] 10 mg PO Q4H PRN PRN 7 Days #60 tab 01/31/18 Polyethylene Glycol 3350 [Miralax] 17 gm PO DAILY 01/31/18 Potassium Chloride [K-Dur] 20 meq PO DAILYCM 01/31/18 Bisacodyl [Dulcolax] 10 mg PO DAILY PRN tablet 02/24/18 Docusate Sodium [Colace] 100 mg PO BID #60 cap 02/24/18 Oxycodone HCl/Acetaminophen 1 tab PO 4X/DAY PRN PRN 7 Days #30 02/24/18 [Percocet 5/325] tab Senna/Docusate Sodium [Senokot-S] 2 tablet PO BID tablet 02/24/18 Sertraline HCl [Zoloft] 25 mg PO DAILY #30 tab 02/24/18 proMETHazine tablet [Phenergan 25 mg PO 4X/DAY PRN PRN #30 tab 02/24/18 tablet] Maternal Family History: No pertinent history Paternal Family History: No pertinent history Smoking Status: Never smoker Tobacco Use: Non-smoker Physical Exam Vital Signs Temp Pulse Resp BP 97.6 F L 71 16 126/77 H 03/23/18 09:21 03/23/18 09:21 03/23/18 09:21 03/23/18 09:21 General: Alert, Oriented x3, Cooperative, No apparent distress HEENT: Atraumatic Lungs: Normal air movement Cardiovascular: Regular rate Psych/Mental Status: Normal Affect Assessment/Plan The patient appears to be tolerating hyperbaric oxygen therapy well, which will be continued as per the patient's medical plan.
[2018-03-24 08:46] VITALS: BP 128/88; PULSE 64; RESP 18; TEMP 36.2
--- NOTE | 2018-03-24 10:42 | PCM.HBO.PN ---
History of Present Illness Date of Service: 03/24/18 Presenting Chief Complaint: Nonhealing ulcers bilateral legs s/p skin grafting with some compromise and nonhealing ulcer left posterior ankle. Post - Op HBO therapy for left lower extremity skin graft. GEORGINA SKINNER is a 57 year old currently undergoing hyperbaric oxygen therapy for nonhealing ulcers bilateral legs s/p skin grafting with some compromise (compromised graft) and nonhealing ulcer left posterior ankle. Post - Op HBO therapy for left lower extremity skin graft. Progress: This represents the 9Th such session of hyperbaric oxygen therapy. Patient appears to be tolerating HBO therapy well. Tolerance of hyperbaric oxygen therapy: Hyperbaric oxygen therapy was administered as per the facility's protocol. The patient tolerated hyperbaric oxygen therapy well, without complaints or complications. Upon emergence from the hyperbaric chamber, the patient's vital signs remained stable. The patient was discharged in good condition. 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 without evidence of necrosis (Chronic) GERD (gastroesophageal reflux disease) (Chronic) Nausea (Chronic) Seizure disorder (Chronic) Hypertension (Chronic) Anxiety (Chronic) Chronic pain (Chronic) Neuropathic pain (Chronic) Glioblastoma multiforme (Chronic) Ulcers of both lower legs (Chronic) multiple infected ulcers bilateral legs L97.919 Debility, unspecified (Chronic) Allergies/Adverse Reactions: Allergies adhesive tape Adverse Reaction (Verified 01/19/18 10:54) VERY THIN STEROID SKIN WILL REMOVE SKIN IF ON TOO LONG Home Medications: Ambulatory Orders Medication Instructions Recorded Cholecalciferol (Vitamin D3) 5,000 unit PO DAILY 03/02/17 [Vitamin D3] Dexamethasone 2.5 mg PO DAILY 03/02/17 Famotidine [Pepcid] 20 mg PO BID 03/02/17 Multivitamin [Daily Multiple 1 each PO DAILY 03/02/17 Vitamin] Ondansetron [Zofran] 8 mg PO Q8H PRN PRN 03/02/17 Levetiracetam 750 mg PO BID 05/03/17 Calcium (Elemental) [Os-Guido 500] 500 mg PO DAILY 07/08/17 Lactobacillus Acidophilus 1 each PO DAILY 07/08/17 [Acidophilus Lactobacilli] Gabapentin [Neurontin] 300 mg PO BIDCM 30 Days #60 08/17/17 Acetaminophen [Tylenol Extra 1,000 mg PO DAILY 01/24/18 Strength] Diazepam [Valium] 5 mg PO 4X/DAY PRN PRN #30 tab 01/31/18 Nutritional Supplement [Rodger - 1 packet PO BIDCM 01/31/18 ORANGE FLAVOR] Ondansetron [Zofran] 4 mg IV Q6H PRN PRN vial 01/31/18 Oxycodone [Oxyir] 10 mg PO Q4H PRN PRN 7 Days #60 tab 01/31/18 Polyethylene Glycol 3350 [Miralax] 17 gm PO DAILY 01/31/18 Potassium Chloride [K-Dur] 20 meq PO DAILYCM 01/31/18 Bisacodyl [Dulcolax] 10 mg PO DAILY PRN tablet 02/24/18 Docusate Sodium [Colace] 100 mg PO BID #60 cap 02/24/18 Oxycodone HCl/Acetaminophen 1 tab PO 4X/DAY PRN PRN 7 Days #30 02/24/18 [Percocet 5/325] tab Senna/Docusate Sodium [Senokot-S] 2 tablet PO BID tablet 02/24/18 Sertraline HCl [Zoloft] 25 mg PO DAILY #30 tab 02/24/18 proMETHazine tablet [Phenergan 25 mg PO 4X/DAY PRN PRN #30 tab 02/24/18 tablet] oxycodone-acetaminophen 2.5 mg-325 1 tab PO 4X/DAY PRN #30 tab 03/23/18 mg tablet Maternal Family History: No pertinent history Paternal Family History: No pertinent history Smoking Status: Never smoker Tobacco Use: Non-smoker Physical Exam Vital Signs Temp Pulse Resp BP 97.2 F L 64 18 128/88 H 03/24/18 08:46 03/24/18 08:46 03/24/18 08:46 03/24/18 08:46 Assessment/Plan The patient appears to be tolerating hyperbaric oxygen therapy well, which will be continued as per the patient's medical plan.
[2018-03-27 08:34] VITALS: BP 119/74; PULSE 61; RESP 16; TEMP 36.4
[2018-03-27 10:16] VITALS: BP 136/75; PULSE 56; RESP 16; TEMP 35.5
--- NOTE | 2018-03-27 21:39 | PN.PCM_ITS ---
Type of Wound Date of Service: 03/27/18 Chief Complaint: Nonhealing ulcers left lower anterior leg and left posterior leg in Achilles area with skin grafting and mild compromise. History of Wound: Surgery 01/24/18 - 1. Surgical preparation left lower posterior leg in Achilles area with excisional debridement nonhealing ulcer and reconstruction with STSG from left flank (5 cm2). 2. Surgical preparation left lower anterior leg with excisional debridement nonhealing ulcer and reconstruction with STSG from left flank (15.75 cm2) and placement of CHELSEA NPWT device. Wound care - Silver. Operative culture - MRSE in both wounds. She was treated with Vancomycin and has completed the treatment. Prealbumin from 01/25/18 was 30.8. Encourage nutritional supplementation with protein to help the healing process. Today the patient denies fever. Her appetite is pretty good. Progress of Wound: Improved healing of skin graft left lower anterior leg and healed skin graft left posterior leg in Achilles area (ankle). - Physical Exam Vital Signs Temp Pulse Resp BP 95.9 F L 56 L 16 136/75 H 03/27/18 10:16 03/27/18 10:16 03/27/18 10:16 03/27/18 10:16 Wound Measurements and Assessment WC - Nurse 1 - General Ulcer Measurement Start: 03/21/18 08:11 Freq: Status: Active Protocol: Activity Type Activity Date Activity User E-Sign Co-Sign Detail Recorded Client Recorded Date Recorded By Document 03/27/18 10:16 [facility] [id number] 03/27/18 10:24 [facility] 03/27/18 10:16 Wound Center Nurse 1 [Ulcer Assessment] #21 L Achilles -Combined with other wound No -Current Size (cm) - Length 0.1 -Current Size (cm) - Width 0.1 -Current Size (cm) - Depth 0.1 -Total Square Cm 0.01 -Date of Last Picture (Recall this 03/27/18 field) -Photo Taken Yes -Epithelialization Large 67-100% -Temperature (Riddhi-wound Skin No Abnormality Appearance) (Pt Warm) -Tenderness on Palpation (Riddhi-wound No Skin Appearance) -Ulcer Cleansing Rinsed/ Irrigated with Saline -Foul Odor after Cleansing No -Anesthetic Used 4% Lidocaine Solution #22 L [place] -Combined with other wound No -Current Size (cm) - Length 1.1 -Current Size (cm) - Width 0.7 -Current Size (cm) - Depth 0.3 -Total Square Cm 0.77 -Date of Last Picture (Recall this 03/27/18 field) -Photo Taken Yes -Epithelialization None Present -Tunneling No -Undermining/Tunneling No -Circular Undermining No -Exudate Amt Small (1-33%) -Exudate Type Serosanguineous -Wound Margin Distinct, Outline Attached -Granulation Amt Large (67-100%) -Granulation Quality [place] -Slough/Fibrin Yes -Necrosis Amt Small (1-33%) -Necrotic Tissue Type Adherent Slough -Texture (Riddhi-wound Skin Appearance) Scarring -Moisture (Riddhi-wound Skin Appearance Assessed ) -Color (Riddhi-wound Skin Appearance) Assessed -Temperature (Riddhi-wound Skin No Abnormality Appearance) (Pt Warm) -Tenderness on Palpation (Riddhi-wound No Skin Appearance) -Ulcer Cleansing Rinsed/ Irrigated with Saline -Foul Odor after Cleansing No -Anesthetic Used 4% Lidocaine Solution [Edema Assessment] -Lower Limb Edema Present Yes -Left Calf (cm) 36.1 -Left Ankle (cm) 22.2 WC - Nurse 2 - General Ulcer CM Notes Start: 03/21/18 08:11 Freq: Status: Active Protocol: Activity Type Activity Date Activity User E-Sign Co-Sign Detail Recorded Client Recorded Date Recorded By Document 03/27/18 10:39 RANDY [id number] 03/27/18 10:40 RANDY 03/27/18 10:39 Wound Center Nurse 2 [Procedure/Treatment] #21 L Achilles -Correct Patient No -Correct Side, Site, Position No -Correct Procedure No -Procedure Performed No -Post Debridement Size (cm) - Length 0 -Post Debridement Size (cm) - Width 0 -Post Debridement Size (cm) - Depth 0 -Total Square Cm 0 -Wound/Ulcer Outcome Healed- Epithelialized #22 L [place] -Time 10:40 -Correct Patient Yes -Correct Side, Site, Position Yes -Correct Procedure Yes -Procedure Performed Yes -Type of Procedure Debridement -Clinical Debridement Subcutaneous -Post Debridement Size (cm) - Length 1.2 -Post Debridement Size (cm) - Width 0.8 -Post Debridement Size (cm) - Depth 0.3 -Total Square Cm 0.96 -Wound/Ulcer Outcome Not Healed -Ulcer Cleansing Rinsed/ Irrigated with Saline -Foul Odor after Cleansing No -Bioengineered Tissue No -Bleeding Controlled with Pressure -Treatment Response Procedure Tolerated Well [See Physician Procedure note for Specifics] Pain Scale: 0-10 Numeric [Pain] -Is Patient Pain Free? Yes Debridement Note Post-Debridement Measurements/Treatment WC - Nurse 2 - General Ulcer CM Notes Start: 03/21/18 08:11 Freq: Status: Active Protocol: Activity Type Activity Date Activity User E-Sign Co-Sign Detail Recorded Client Recorded Date Recorded By Document 03/27/18 10:39 [id number] 03/27/18 10:40 03/27/18 10:39 Wound Center Nurse 2 #21 L Achilles -Correct Patient No -Correct Side, Site, Position No -Correct Procedure No -Procedure Performed No -Post Debridement Size (cm) - Length 0 -Post Debridement Size (cm) - Width 0 -Post Debridement Size (cm) - Depth 0 -Total Square Cm 0 -Wound/Ulcer Outcome Healed- Epithelialized #22 L [place] -Time 10:40 -Correct Patient Yes -Correct Side, Site, Position Yes -Correct Procedure Yes -Procedure Performed Yes -Type of Procedure Debridement -Clinical Debridement Subcutaneous -Post Debridement Size (cm) - Length 1.2 -Post Debridement Size (cm) - Width 0.8 -Post Debridement Size (cm) - Depth 0.3 -Total Square Cm 0.96 -Wound/Ulcer Outcome Not Healed -Ulcer Cleansing Rinsed/ Irrigated with Saline -Foul Odor after Cleansing No -Bioengineered Tissue No -Bleeding Controlled with Pressure -Treatment Response Procedure Tolerated Well Pain Scale: 0-10 Numeric Is Patient Pain Free? Yes Wound debrided: #21 Left posterior leg in Achilles area (ankle). Laterality: Left Wound Grade/Stage: 2. No debridement was completed today - the ulcer has healed. - Additional Wound Wound debrided: #22 Left lower anterior leg. Laterality: Left Wound Grade/Stage: 2. Type of Debridement: Excisional debridement Anesthesia Used: 4% Lidocaine Solution Depth: Down to and including healthy tissue, in the subcutaneous layer Percentage of wound debrided: 100 Instrument Used: 3mm curette Tissue Removed: subcutaneous tissue. Severity: Fat Layer Exposed Amount of bleeding with debridement: Mild Bleeding Controlled with: Pressure Patient tolerated procedure: Patient tolerated procedure well Assessment/Plan Assessment: 1. Ulcer left lower posterior leg in Achilles area, healed. 2. Nonhealing ulcer left lower anterior leg. 3. Brain tumor - receiving chemotherapy. 4. s/p surgical preparation left lower posterior leg in Achilles area with excisional debridement nonhealing ulcer and reconstruction with STSG from left flank (5 cm2) and surgical preparation left lower anterior leg with excisional debridement nonhealing ulcer and reconstruction with STSG from left flank (15.75 cm2) and placement of CHELSEA NPWT device. 5. Mild compromise skin grafts left leg. Plan: The left lower anterior leg ulcer is almost healed, about 90%. Will stop the Silver dressings and start Collagen Hydrogel dressings daily. The ulcer left posterior leg in the Achilles area has healed. Continue the Tubigrip for compression. She has started HBO treatments for the skin graft compromise to try and salvage the healing of the skin grafts. She is tolerating the treatments without problem. Her Prealbumin from 01/25/18 was 30.8. Encourage nutritional supplementation with protein to help the healing process. She will continue the HBO treatments as she is showing improvement in the healing of the compromised grafts. Followup 4 weeks.
--- NOTE | 2018-03-27 21:46 | PCM.HBO.PN ---
History of Present Illness Date of Service: 03/27/18 Presenting Chief Complaint: Compromised skin grafts left lower anterior leg and left posterior leg in Achilles area. GEORGINA SKINNER is a 57 year old currently undergoing hyperbaric oxygen therapy for compromised skin grafts left lower anterior leg and left posterior leg in Achilles area. Progress: This represents the 2nd treatment course and the 10th such session of hyperbaric oxygen therapy. Patient appears to be tolerating HBO therapy well. Tolerance of hyperbaric oxygen therapy: Hyperbaric oxygen therapy was administered as per the facility's protocol. The patient tolerated hyperbaric oxygen therapy well, without complaints or complications. Upon emergence from the hyperbaric chamber, the patient's vital signs remained stable. The patient was discharged in good condition. 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 without evidence of necrosis (Chronic) GERD (gastroesophageal reflux disease) (Chronic) Nausea (Chronic) Seizure disorder (Chronic) Hypertension (Chronic) Anxiety (Chronic) Chronic pain (Chronic) Neuropathic pain (Chronic) Glioblastoma multiforme (Chronic) Ulcers of both lower legs (Chronic) multiple infected ulcers bilateral legs L97.919 Debility, unspecified (Chronic) Allergies/Adverse Reactions: Allergies adhesive tape Adverse Reaction (Verified 01/19/18 10:54) VERY THIN STEROID SKIN WILL REMOVE SKIN IF ON TOO LONG Home Medications: Ambulatory Orders Medication Instructions Recorded Cholecalciferol (Vitamin D3) 5,000 unit PO DAILY 03/02/17 [Vitamin D3] Dexamethasone 2.5 mg PO DAILY 03/02/17 Famotidine [Pepcid] 20 mg PO BID 03/02/17 Multivitamin [Daily Multiple 1 each PO DAILY 03/02/17 Vitamin] Ondansetron [Zofran] 8 mg PO Q8H PRN PRN 03/02/17 Levetiracetam 750 mg PO BID 05/03/17 Calcium (Elemental) [Os-Guido 500] 500 mg PO DAILY 07/08/17 Lactobacillus Acidophilus 1 each PO DAILY 07/08/17 [Acidophilus Lactobacilli] Gabapentin [Neurontin] 300 mg PO BIDCM 30 Days #60 08/17/17 Acetaminophen [Tylenol Extra 1,000 mg PO DAILY 01/24/18 Strength] Diazepam [Valium] 5 mg PO 4X/DAY PRN PRN #30 tab 01/31/18 Nutritional Supplement [Rodger - 1 packet PO BIDCM 01/31/18 ORANGE FLAVOR] Ondansetron [Zofran] 4 mg IV Q6H PRN PRN vial 01/31/18 Oxycodone [Oxyir] 10 mg PO Q4H PRN PRN 7 Days #60 tab 01/31/18 Polyethylene Glycol 3350 [Miralax] 17 gm PO DAILY 01/31/18 Potassium Chloride [K-Dur] 20 meq PO DAILYCM 01/31/18 Bisacodyl [Dulcolax] 10 mg PO DAILY PRN tablet 02/24/18 Docusate Sodium [Colace] 100 mg PO BID #60 cap 02/24/18 Oxycodone HCl/Acetaminophen 1 tab PO 4X/DAY PRN PRN 7 Days #30 02/24/18 [Percocet 5/325] tab Senna/Docusate Sodium [Senokot-S] 2 tablet PO BID tablet 02/24/18 Sertraline HCl [Zoloft] 25 mg PO DAILY #30 tab 02/24/18 proMETHazine tablet [Phenergan 25 mg PO 4X/DAY PRN PRN #30 tab 02/24/18 tablet] oxycodone-acetaminophen 2.5 mg-325 1 tab PO 4X/DAY PRN #30 tab 03/23/18 mg tablet Maternal Family History: No pertinent history Paternal Family History: No pertinent history Smoking Status: Never smoker Tobacco Use: Non-smoker Physical Exam Vital Signs Temp Pulse Resp BP 95.9 F L 56 L 16 136/75 H 03/27/18 10:16 03/27/18 10:16 03/27/18 10:16 03/27/18 10:16
[2018-03-28 08:17] VITALS: BP 115/74; BP 118/74; PULSE 50; PULSE 55; RESP 16; TEMP 36.4
--- NOTE | 2018-03-28 13:00 | PCM.HBO.PN ---
History of Present Illness Date of Service: 03/28/18 Presenting Chief Complaint: Nonhealing ulcers bilateral legs s/p skin grafting with some compromise and nonhealing ulcer left posterior ankle. Post - Op HBO therapy for left lower extremity skin graft. GEORGINA SKINNER is a 57 year old currently undergoing hyperbaric oxygen therapy for nonhealing ulcers bilateral legs s/p skin grafting with some compromise (compromised graft) and nonhealing ulcer left posterior ankle. Post - Op HBO therapy for left lower extremity skin graft. Progress: This represents the 11th such session of hyperbaric oxygen therapy. Patient appears to be tolerating HBO therapy well. Tolerance of hyperbaric oxygen therapy: Hyperbaric oxygen therapy was administered as per the facility's protocol. The patient tolerated hyperbaric oxygen therapy well, without complaints or complications. Upon emergence from the hyperbaric chamber, the patient's vital signs remained stable. The patient was discharged in good condition. 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 without evidence of necrosis (Chronic) GERD (gastroesophageal reflux disease) (Chronic) Nausea (Chronic) Seizure disorder (Chronic) Hypertension (Chronic) Anxiety (Chronic) Chronic pain (Chronic) Neuropathic pain (Chronic) Glioblastoma multiforme (Chronic) Ulcers of both lower legs (Chronic) multiple infected ulcers bilateral legs L97.919 Debility, unspecified (Chronic) Allergies/Adverse Reactions: Allergies adhesive tape Adverse Reaction (Verified 01/19/18 10:54) VERY THIN STEROID SKIN WILL REMOVE SKIN IF ON TOO LONG Home Medications: Ambulatory Orders Medication Instructions Recorded Cholecalciferol (Vitamin D3) 5,000 unit PO DAILY 03/02/17 [Vitamin D3] Dexamethasone 2.5 mg PO DAILY 03/02/17 Famotidine [Pepcid] 20 mg PO BID 03/02/17 Multivitamin [Daily Multiple 1 each PO DAILY 03/02/17 Vitamin] Ondansetron [Zofran] 8 mg PO Q8H PRN PRN 03/02/17 Levetiracetam 750 mg PO BID 05/03/17 Calcium (Elemental) [Os-Guido 500] 500 mg PO DAILY 07/08/17 Lactobacillus Acidophilus 1 each PO DAILY 07/08/17 [Acidophilus Lactobacilli] Gabapentin [Neurontin] 300 mg PO BIDCM 30 Days #60 08/17/17 Acetaminophen [Tylenol Extra 1,000 mg PO DAILY 01/24/18 Strength] Diazepam [Valium] 5 mg PO 4X/DAY PRN PRN #30 tab 01/31/18 Nutritional Supplement [Rodger - 1 packet PO BIDCM 01/31/18 ORANGE FLAVOR] Ondansetron [Zofran] 4 mg IV Q6H PRN PRN vial 01/31/18 Oxycodone [Oxyir] 10 mg PO Q4H PRN PRN 7 Days #60 tab 01/31/18 Polyethylene Glycol 3350 [Miralax] 17 gm PO DAILY 01/31/18 Potassium Chloride [K-Dur] 20 meq PO DAILYCM 01/31/18 Bisacodyl [Dulcolax] 10 mg PO DAILY PRN tablet 02/24/18 Docusate Sodium [Colace] 100 mg PO BID #60 cap 02/24/18 Oxycodone HCl/Acetaminophen 1 tab PO 4X/DAY PRN PRN 7 Days #30 02/24/18 [Percocet 5/325] tab Senna/Docusate Sodium [Senokot-S] 2 tablet PO BID tablet 02/24/18 Sertraline HCl [Zoloft] 25 mg PO DAILY #30 tab 02/24/18 proMETHazine tablet [Phenergan 25 mg PO 4X/DAY PRN PRN #30 tab 02/24/18 tablet] oxycodone-acetaminophen 2.5 mg-325 1 tab PO 4X/DAY PRN #30 tab 03/23/18 mg tablet Maternal Family History: No pertinent history Paternal Family History: No pertinent history Smoking Status: Never smoker Tobacco Use: Non-smoker Physical Exam Vital Signs Temp Pulse Resp BP 97.5 F L 55 L 16 118/74 03/28/18 08:17 03/28/18 08:17 03/28/18 08:17 03/28/18 08:17 General: Alert, Oriented x3, Cooperative, No apparent distress, Well developed, Well nourished HEENT: Atraumatic, PERRLA, EOMI, Normocephalic Lungs: Normal air movement Psych/Mental Status: Normal Affect, Appropriate, Alert and oriented to time, place, person, mood and affect Assessment/Plan The patient appears to be tolerating hyperbaric oxygen therapy well, which will be continued as per the patient's medical plan.
[2018-03-29 08:19] VITALS: BP 128/75; PULSE 63; RESP 16; TEMP 36.6
--- NOTE | 2018-03-29 09:25 | PCM.HBO.PN ---
History of Present Illness Date of Service: 03/29/18 Presenting Chief Complaint: Nonhealing ulcers bilateral legs s/p skin grafting with some compromise and nonhealing ulcer left posterior ankle. Post - Op HBO therapy for left lower extremity skin graft. GEORGINA SKINNER is a 57 year old currently undergoing hyperbaric oxygen therapy for nonhealing ulcers bilateral legs s/p skin grafting with some compromise (compromised graft) and nonhealing ulcer left posterior ankle. Post - Op HBO therapy for left lower extremity skin graft. Progress: Patient appears to be tolerating HBO therapy well so far. Tolerance of hyperbaric oxygen therapy: Hyperbaric oxygen therapy was administered as per the facility's protocol. The patient tolerated hyperbaric oxygen therapy well, without complaints or complications. Upon emergence from the hyperbaric chamber, the patient's vital signs remained stable. The patient was discharged in good condition. 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 without evidence of necrosis (Chronic) GERD (gastroesophageal reflux disease) (Chronic) Nausea (Chronic) Seizure disorder (Chronic) Hypertension (Chronic) Anxiety (Chronic) Chronic pain (Chronic) Neuropathic pain (Chronic) Glioblastoma multiforme (Chronic) Ulcers of both lower legs (Chronic) multiple infected ulcers bilateral legs L97.919 Debility, unspecified (Chronic) Allergies/Adverse Reactions: Allergies adhesive tape Adverse Reaction (Verified 01/19/18 10:54) VERY THIN STEROID SKIN WILL REMOVE SKIN IF ON TOO LONG Home Medications: Ambulatory Orders Medication Instructions Recorded Cholecalciferol (Vitamin D3) 5,000 unit PO DAILY 03/02/17 [Vitamin D3] Dexamethasone 2.5 mg PO DAILY 03/02/17 Famotidine [Pepcid] 20 mg PO BID 03/02/17 Multivitamin [Daily Multiple 1 each PO DAILY 03/02/17 Vitamin] Ondansetron [Zofran] 8 mg PO Q8H PRN PRN 03/02/17 Levetiracetam 750 mg PO BID 05/03/17 Calcium (Elemental) [Os-Guido 500] 500 mg PO DAILY 07/08/17 Lactobacillus Acidophilus 1 each PO DAILY 07/08/17 [Acidophilus Lactobacilli] Gabapentin [Neurontin] 300 mg PO BIDCM 30 Days #60 08/17/17 Acetaminophen [Tylenol Extra 1,000 mg PO DAILY 01/24/18 Strength] Diazepam [Valium] 5 mg PO 4X/DAY PRN PRN #30 tab 01/31/18 Nutritional Supplement [Rodger - 1 packet PO BIDCM 01/31/18 ORANGE FLAVOR] Ondansetron [Zofran] 4 mg IV Q6H PRN PRN vial 01/31/18 Oxycodone [Oxyir] 10 mg PO Q4H PRN PRN 7 Days #60 tab 01/31/18 Polyethylene Glycol 3350 [Miralax] 17 gm PO DAILY 01/31/18 Potassium Chloride [K-Dur] 20 meq PO DAILYCM 01/31/18 Bisacodyl [Dulcolax] 10 mg PO DAILY PRN tablet 02/24/18 Docusate Sodium [Colace] 100 mg PO BID #60 cap 02/24/18 Oxycodone HCl/Acetaminophen 1 tab PO 4X/DAY PRN PRN 7 Days #30 02/24/18 [Percocet 5/325] tab Senna/Docusate Sodium [Senokot-S] 2 tablet PO BID tablet 02/24/18 Sertraline HCl [Zoloft] 25 mg PO DAILY #30 tab 02/24/18 proMETHazine tablet [Phenergan 25 mg PO 4X/DAY PRN PRN #30 tab 02/24/18 tablet] oxycodone-acetaminophen 2.5 mg-325 1 tab PO 4X/DAY PRN #30 tab 03/23/18 mg tablet Maternal Family History: No pertinent history Paternal Family History: No pertinent history Smoking Status: Never smoker Tobacco Use: Non-smoker Physical Exam Vital Signs Temp Pulse Resp BP 97.8 F 63 16 128/75 H 03/29/18 08:19 03/29/18 08:19 03/29/18 08:19 03/29/18 08:19 General: Alert, Oriented x3, Cooperative, No apparent distress HEENT: Atraumatic Lungs: Normal air movement Psych/Mental Status: Normal Affect Assessment/Plan The patient appears to be tolerating hyperbaric oxygen therapy well, which will be continued as per the patient's medical plan.
[2018-03-30 08:22] VITALS: BP 116/77; BP 124/78; PULSE 54; PULSE 66; RESP 16; TEMP 36.3; TEMP 36.4
--- NOTE | 2018-03-30 10:01 | PCM.HBO.PN ---
History of Present Illness Date of Service: 03/30/18 Presenting Chief Complaint: Nonhealing ulcers bilateral legs s/p skin grafting with some compromise and nonhealing ulcer left posterior ankle. Post - Op HBO therapy for left lower extremity skin graft. GEORGINA SKINNER is a 57 year old currently undergoing hyperbaric oxygen therapy for nonhealing ulcers bilateral legs s/p skin grafting with some compromise (compromised graft) and nonhealing ulcer left posterior ankle. Post - Op HBO therapy for left lower extremity skin graft. Progress: Patient appears to be tolerating HBO therapy well so far. Tolerance of hyperbaric oxygen therapy: Hyperbaric oxygen therapy was administered as per the facility's protocol. The patient tolerated hyperbaric oxygen therapy well, without complaints or complications. Upon emergence from the hyperbaric chamber, the patient's vital signs remained stable. The patient was discharged in good condition. 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 without evidence of necrosis (Chronic) GERD (gastroesophageal reflux disease) (Chronic) Nausea (Chronic) Seizure disorder (Chronic) Hypertension (Chronic) Anxiety (Chronic) Chronic pain (Chronic) Neuropathic pain (Chronic) Glioblastoma multiforme (Chronic) Ulcers of both lower legs (Chronic) multiple infected ulcers bilateral legs L97.919 Debility, unspecified (Chronic) Allergies/Adverse Reactions: Allergies adhesive tape Adverse Reaction (Verified 01/19/18 10:54) VERY THIN STEROID SKIN WILL REMOVE SKIN IF ON TOO LONG Home Medications: Ambulatory Orders Medication Instructions Recorded Cholecalciferol (Vitamin D3) 5,000 unit PO DAILY 03/02/17 [Vitamin D3] Dexamethasone 2.5 mg PO DAILY 03/02/17 Famotidine [Pepcid] 20 mg PO BID 03/02/17 Multivitamin [Daily Multiple 1 each PO DAILY 03/02/17 Vitamin] Ondansetron [Zofran] 8 mg PO Q8H PRN PRN 03/02/17 Levetiracetam 750 mg PO BID 05/03/17 Calcium (Elemental) [Os-Guido 500] 500 mg PO DAILY 07/08/17 Lactobacillus Acidophilus 1 each PO DAILY 07/08/17 [Acidophilus Lactobacilli] Gabapentin [Neurontin] 300 mg PO BIDCM 30 Days #60 08/17/17 Acetaminophen [Tylenol Extra 1,000 mg PO DAILY 01/24/18 Strength] Diazepam [Valium] 5 mg PO 4X/DAY PRN PRN #30 tab 01/31/18 Nutritional Supplement [Rodger - 1 packet PO BIDCM 01/31/18 ORANGE FLAVOR] Ondansetron [Zofran] 4 mg IV Q6H PRN PRN vial 01/31/18 Oxycodone [Oxyir] 10 mg PO Q4H PRN PRN 7 Days #60 tab 01/31/18 Polyethylene Glycol 3350 [Miralax] 17 gm PO DAILY 01/31/18 Potassium Chloride [K-Dur] 20 meq PO DAILYCM 01/31/18 Bisacodyl [Dulcolax] 10 mg PO DAILY PRN tablet 02/24/18 Docusate Sodium [Colace] 100 mg PO BID #60 cap 02/24/18 Oxycodone HCl/Acetaminophen 1 tab PO 4X/DAY PRN PRN 7 Days #30 02/24/18 [Percocet 5/325] tab Senna/Docusate Sodium [Senokot-S] 2 tablet PO BID tablet 02/24/18 Sertraline HCl [Zoloft] 25 mg PO DAILY #30 tab 02/24/18 proMETHazine tablet [Phenergan 25 mg PO 4X/DAY PRN PRN #30 tab 02/24/18 tablet] oxycodone-acetaminophen 2.5 mg-325 1 tab PO 4X/DAY PRN #30 tab 03/23/18 mg tablet Maternal Family History: No pertinent history Paternal Family History: No pertinent history Smoking Status: Never smoker Tobacco Use: Non-smoker Physical Exam Vital Signs Temp Pulse Resp BP 97.4 F L 66 16 116/77 03/30/18 08:22 03/30/18 08:22 03/30/18 08:22 03/30/18 08:22 General: Alert, Oriented x3, Cooperative HEENT: Atraumatic Lungs: Normal air movement Psych/Mental Status: Normal Affect Assessment/Plan The patient appears to be tolerating hyperbaric oxygen therapy well, which will be continued as per the patient's medical plan.
[2018-03-31 08:12] VITALS: BP 105/67; BP 113/77; PULSE 55; PULSE 65; RESP 16; TEMP 35.9; TEMP 36.6
--- NOTE | 2018-03-31 10:04 | PCM.HBO.PN ---
History of Present Illness Date of Service: 03/31/18 Presenting Chief Complaint: Nonhealing ulcers bilateral legs s/p skin grafting with some compromise and nonhealing ulcer left posterior ankle. Post - Op HBO therapy for left lower extremity skin graft. GEORGINA SKINNER is a 57 year old currently undergoing hyperbaric oxygen therapy for nonhealing ulcers bilateral legs s/p skin grafting with some compromise (compromised graft) and nonhealing ulcer left posterior ankle. Post - Op HBO therapy for left lower extremity skin graft. Progress: Patient appears to be tolerating HBO therapy well so far. Tolerance of hyperbaric oxygen therapy: Hyperbaric oxygen therapy was administered as per the facility's protocol. The patient tolerated hyperbaric oxygen therapy well, without complaints or complications. Upon emergence from the hyperbaric chamber, the patient's vital signs remained stable. The patient was discharged in good condition. 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 without evidence of necrosis (Chronic) GERD (gastroesophageal reflux disease) (Chronic) Nausea (Chronic) Seizure disorder (Chronic) Hypertension (Chronic) Anxiety (Chronic) Chronic pain (Chronic) Neuropathic pain (Chronic) Glioblastoma multiforme (Chronic) Ulcers of both lower legs (Chronic) multiple infected ulcers bilateral legs L97.919 Debility, unspecified (Chronic) Allergies/Adverse Reactions: Allergies adhesive tape Adverse Reaction (Verified 01/19/18 10:54) VERY THIN STEROID SKIN WILL REMOVE SKIN IF ON TOO LONG Home Medications: Ambulatory Orders Medication Instructions Recorded Cholecalciferol (Vitamin D3) 5,000 unit PO DAILY 03/02/17 [Vitamin D3] Dexamethasone 2.5 mg PO DAILY 03/02/17 Famotidine [Pepcid] 20 mg PO BID 03/02/17 Multivitamin [Daily Multiple 1 each PO DAILY 03/02/17 Vitamin] Ondansetron [Zofran] 8 mg PO Q8H PRN PRN 03/02/17 Levetiracetam 750 mg PO BID 05/03/17 Calcium (Elemental) [Os-Guido 500] 500 mg PO DAILY 07/08/17 Lactobacillus Acidophilus 1 each PO DAILY 07/08/17 [Acidophilus Lactobacilli] Gabapentin [Neurontin] 300 mg PO BIDCM 30 Days #60 08/17/17 Acetaminophen [Tylenol Extra 1,000 mg PO DAILY 01/24/18 Strength] Diazepam [Valium] 5 mg PO 4X/DAY PRN PRN #30 tab 01/31/18 Nutritional Supplement [Rodger - 1 packet PO BIDCM 01/31/18 ORANGE FLAVOR] Ondansetron [Zofran] 4 mg IV Q6H PRN PRN vial 01/31/18 Oxycodone [Oxyir] 10 mg PO Q4H PRN PRN 7 Days #60 tab 01/31/18 Polyethylene Glycol 3350 [Miralax] 17 gm PO DAILY 01/31/18 Potassium Chloride [K-Dur] 20 meq PO DAILYCM 01/31/18 Bisacodyl [Dulcolax] 10 mg PO DAILY PRN tablet 02/24/18 Docusate Sodium [Colace] 100 mg PO BID #60 cap 02/24/18 Oxycodone HCl/Acetaminophen 1 tab PO 4X/DAY PRN PRN 7 Days #30 02/24/18 [Percocet 5/325] tab Senna/Docusate Sodium [Senokot-S] 2 tablet PO BID tablet 02/24/18 Sertraline HCl [Zoloft] 25 mg PO DAILY #30 tab 02/24/18 proMETHazine tablet [Phenergan 25 mg PO 4X/DAY PRN PRN #30 tab 02/24/18 tablet] oxycodone-acetaminophen 2.5 mg-325 1 tab PO 4X/DAY PRN #30 tab 03/23/18 mg tablet Maternal Family History: No pertinent history Paternal Family History: No pertinent history Smoking Status: Never smoker Tobacco Use: Non-smoker Physical Exam Vital Signs Temp Pulse Resp BP 97.9 F 65 16 105/67 03/31/18 08:12 03/31/18 08:12 03/31/18 08:12 03/31/18 08:12 Assessment/Plan The patient appears to be tolerating hyperbaric oxygen therapy well, which will be continued as per the patient's medical plan.
[2018-04-03 08:23] VITALS: BP 102/65; BP 119/77; PULSE 53; PULSE 56; RESP 16; TEMP 36.1; TEMP 36.3
--- NOTE | 2018-04-03 22:51 | PCM.HBO.PN ---
History of Present Illness Date of Service: 04/03/18 Presenting Chief Complaint: Compromised skin grafts left lower anterior leg and left posterior leg in Achilles area. GEORGINA SKINNER is a 57 year old currently undergoing hyperbaric oxygen therapy for compromised skin grafts left lower anterior leg and left posterior leg in Achilles area. Progress: This represents the 2nd treatment course and the 15th such session of hyperbaric oxygen therapy. Patient appears to be tolerating HBO therapy well. Tolerance of hyperbaric oxygen therapy: Hyperbaric oxygen therapy was administered as per the facility's protocol. The patient tolerated hyperbaric oxygen therapy well, without complaints or complications. Upon emergence from the hyperbaric chamber, the patient's vital signs remained stable. The patient was discharged in good condition. 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 without evidence of necrosis (Chronic) GERD (gastroesophageal reflux disease) (Chronic) Nausea (Chronic) Seizure disorder (Chronic) Hypertension (Chronic) Anxiety (Chronic) Chronic pain (Chronic) Neuropathic pain (Chronic) Glioblastoma multiforme (Chronic) Ulcers of both lower legs (Chronic) multiple infected ulcers bilateral legs L97.919 Debility, unspecified (Chronic) Allergies/Adverse Reactions: Allergies adhesive tape Adverse Reaction (Verified 01/19/18 10:54) VERY THIN STEROID SKIN WILL REMOVE SKIN IF ON TOO LONG Home Medications: Ambulatory Orders Medication Instructions Recorded Cholecalciferol (Vitamin D3) 5,000 unit PO DAILY 03/02/17 [Vitamin D3] Dexamethasone 2.5 mg PO DAILY 03/02/17 Famotidine [Pepcid] 20 mg PO BID 03/02/17 Multivitamin [Daily Multiple 1 each PO DAILY 03/02/17 Vitamin] Ondansetron [Zofran] 8 mg PO Q8H PRN PRN 03/02/17 Levetiracetam 750 mg PO BID 05/03/17 Calcium (Elemental) [Os-Guido 500] 500 mg PO DAILY 07/08/17 Lactobacillus Acidophilus 1 each PO DAILY 07/08/17 [Acidophilus Lactobacilli] Gabapentin [Neurontin] 300 mg PO BIDCM 30 Days #60 08/17/17 Acetaminophen [Tylenol Extra 1,000 mg PO DAILY 01/24/18 Strength] Diazepam [Valium] 5 mg PO 4X/DAY PRN PRN #30 tab 01/31/18 Nutritional Supplement [Rodger - 1 packet PO BIDCM 01/31/18 ORANGE FLAVOR] Ondansetron [Zofran] 4 mg IV Q6H PRN PRN vial 01/31/18 Oxycodone [Oxyir] 10 mg PO Q4H PRN PRN 7 Days #60 tab 01/31/18 Polyethylene Glycol 3350 [Miralax] 17 gm PO DAILY 01/31/18 Potassium Chloride [K-Dur] 20 meq PO DAILYCM 01/31/18 Bisacodyl [Dulcolax] 10 mg PO DAILY PRN tablet 02/24/18 Docusate Sodium [Colace] 100 mg PO BID #60 cap 02/24/18 Oxycodone HCl/Acetaminophen 1 tab PO 4X/DAY PRN PRN 7 Days #30 02/24/18 [Percocet 5/325] tab Senna/Docusate Sodium [Senokot-S] 2 tablet PO BID tablet 02/24/18 Sertraline HCl [Zoloft] 25 mg PO DAILY #30 tab 02/24/18 proMETHazine tablet [Phenergan 25 mg PO 4X/DAY PRN PRN #30 tab 02/24/18 tablet] oxycodone-acetaminophen 2.5 mg-325 1 tab PO 4X/DAY PRN #30 tab 03/23/18 mg tablet Maternal Family History: No pertinent history Paternal Family History: No pertinent history Smoking Status: Never smoker Tobacco Use: Non-smoker Physical Exam Vital Signs Temp Pulse Resp BP 97.4 F L 56 L 16 102/65 04/03/18 08:23 04/03/18 08:23 04/03/18 08:23 04/03/18 08:23
[2018-04-04 08:17] VITALS: BP 108/74; BP 123/95; PULSE 58; PULSE 64; RESP 16; TEMP 36.1; TEMP 36.4
--- NOTE | 2018-04-04 15:02 | PCM.HBO.PN ---
History of Present Illness Date of Service: 04/04/18 Presenting Chief Complaint: Compromised skin grafts left lower anterior leg and left posterior leg in Achilles area. GEORGINA SKINNER is a 57 year old currently undergoing hyperbaric oxygen therapy for compromised skin grafts left lower anterior leg and left posterior leg in Achilles area. Progress: This represents the 2nd treatment course and the 16th such session of hyperbaric oxygen therapy. Patient appears to be tolerating HBO therapy well. Tolerance of hyperbaric oxygen therapy: Hyperbaric oxygen therapy was administered as per the facility's protocol. The patient tolerated hyperbaric oxygen therapy well, without complaints or complications. Upon emergence from the hyperbaric chamber, the patient's vital signs remained stable. The patient was discharged in good condition. 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 without evidence of necrosis (Chronic) GERD (gastroesophageal reflux disease) (Chronic) Nausea (Chronic) Seizure disorder (Chronic) Hypertension (Chronic) Anxiety (Chronic) Chronic pain (Chronic) Neuropathic pain (Chronic) Glioblastoma multiforme (Chronic) Ulcers of both lower legs (Chronic) multiple infected ulcers bilateral legs L97.919 Debility, unspecified (Chronic) Allergies/Adverse Reactions: Allergies adhesive tape Adverse Reaction (Verified 01/19/18 10:54) VERY THIN STEROID SKIN WILL REMOVE SKIN IF ON TOO LONG Home Medications: Ambulatory Orders Medication Instructions Recorded Cholecalciferol (Vitamin D3) 5,000 unit PO DAILY 03/02/17 [Vitamin D3] Dexamethasone 2.5 mg PO DAILY 03/02/17 Famotidine [Pepcid] 20 mg PO BID 03/02/17 Multivitamin [Daily Multiple 1 each PO DAILY 03/02/17 Vitamin] Ondansetron [Zofran] 8 mg PO Q8H PRN PRN 03/02/17 Levetiracetam 750 mg PO BID 05/03/17 Calcium (Elemental) [Os-Guido 500] 500 mg PO DAILY 07/08/17 Lactobacillus Acidophilus 1 each PO DAILY 07/08/17 [Acidophilus Lactobacilli] Gabapentin [Neurontin] 300 mg PO BIDCM 30 Days #60 08/17/17 Acetaminophen [Tylenol Extra 1,000 mg PO DAILY 01/24/18 Strength] Diazepam [Valium] 5 mg PO 4X/DAY PRN PRN #30 tab 01/31/18 Nutritional Supplement [Rodger - 1 packet PO BIDCM 01/31/18 ORANGE FLAVOR] Ondansetron [Zofran] 4 mg IV Q6H PRN PRN vial 01/31/18 Oxycodone [Oxyir] 10 mg PO Q4H PRN PRN 7 Days #60 tab 01/31/18 Polyethylene Glycol 3350 [Miralax] 17 gm PO DAILY 01/31/18 Potassium Chloride [K-Dur] 20 meq PO DAILYCM 01/31/18 Bisacodyl [Dulcolax] 10 mg PO DAILY PRN tablet 02/24/18 Docusate Sodium [Colace] 100 mg PO BID #60 cap 02/24/18 Oxycodone HCl/Acetaminophen 1 tab PO 4X/DAY PRN PRN 7 Days #30 02/24/18 [Percocet 5/325] tab Senna/Docusate Sodium [Senokot-S] 2 tablet PO BID tablet 02/24/18 Sertraline HCl [Zoloft] 25 mg PO DAILY #30 tab 02/24/18 proMETHazine tablet [Phenergan 25 mg PO 4X/DAY PRN PRN #30 tab 02/24/18 tablet] oxycodone-acetaminophen 2.5 mg-325 1 tab PO 4X/DAY PRN #30 tab 03/23/18 mg tablet Maternal Family History: No pertinent history Paternal Family History: No pertinent history Smoking Status: Never smoker Tobacco Use: Non-smoker Physical Exam Vital Signs Temp Pulse Resp BP 97.6 F L 64 16 108/74 04/04/18 08:17 04/04/18 08:17 04/04/18 08:17 04/04/18 08:17 General: Alert, Oriented x3, Cooperative, No apparent distress, Well developed, Well nourished HEENT: Atraumatic, PERRLA, EOMI, Normocephalic Lungs: Normal air movement Psych/Mental Status: Normal Affect, Appropriate, Alert and oriented to time, place, person, mood and affect Assessment/Plan The patient appears to be tolerating hyperbaric oxygen therapy well, which will be continued as per the patient's medical plan.
[2018-04-05 08:30] VITALS: BP 105/67; BP 109/74; PULSE 55; PULSE 63; RESP 16; TEMP 36.1; TEMP 36.4
--- NOTE | 2018-04-05 16:33 | PCM.HBO.PN ---
History of Present Illness Date of Service: 04/05/18 Presenting Chief Complaint: Compromised skin grafts left lower anterior leg and left posterior leg in Achilles area. GEORGINA SKINNER is a 57 year old, currently undergoing hyperbaric oxygen therapy for compromised skin grafts left lower anterior leg and left posterior leg in Achilles area. Progress: This represents the 2nd treatment course and the 17th such session of hyperbaric oxygen therapy. Patient appears to be tolerating HBO therapy well. Tolerance of hyperbaric oxygen therapy: Hyperbaric oxygen therapy was administered as per the facility's protocol. The patient tolerated hyperbaric oxygen therapy well, without complaints or complications. Upon emergence from the hyperbaric chamber, the patient's vital signs remained stable. The patient was discharged in good condition. 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 without evidence of necrosis (Chronic) GERD (gastroesophageal reflux disease) (Chronic) Nausea (Chronic) Seizure disorder (Chronic) Hypertension (Chronic) Anxiety (Chronic) Chronic pain (Chronic) Neuropathic pain (Chronic) Glioblastoma multiforme (Chronic) Ulcers of both lower legs (Chronic) multiple infected ulcers bilateral legs L97.919 Debility, unspecified (Chronic) Allergies/Adverse Reactions: Allergies adhesive tape Adverse Reaction (Verified 01/19/18 10:54) VERY THIN STEROID SKIN WILL REMOVE SKIN IF ON TOO LONG Home Medications: Ambulatory Orders Medication Instructions Recorded Cholecalciferol (Vitamin D3) 5,000 unit PO DAILY 03/02/17 [Vitamin D3] Dexamethasone 2.5 mg PO DAILY 03/02/17 Famotidine [Pepcid] 20 mg PO BID 03/02/17 Multivitamin [Daily Multiple 1 each PO DAILY 03/02/17 Vitamin] Ondansetron [Zofran] 8 mg PO Q8H PRN PRN 03/02/17 Levetiracetam 750 mg PO BID 05/03/17 Calcium (Elemental) [Os-Guido 500] 500 mg PO DAILY 07/08/17 Lactobacillus Acidophilus 1 each PO DAILY 07/08/17 [Acidophilus Lactobacilli] Gabapentin [Neurontin] 300 mg PO BIDCM 30 Days #60 08/17/17 Acetaminophen [Tylenol Extra 1,000 mg PO DAILY 01/24/18 Strength] Diazepam [Valium] 5 mg PO 4X/DAY PRN PRN #30 tab 01/31/18 Nutritional Supplement [Rodger - 1 packet PO BIDCM 01/31/18 ORANGE FLAVOR] Ondansetron [Zofran] 4 mg IV Q6H PRN PRN vial 01/31/18 Oxycodone [Oxyir] 10 mg PO Q4H PRN PRN 7 Days #60 tab 01/31/18 Polyethylene Glycol 3350 [Miralax] 17 gm PO DAILY 01/31/18 Potassium Chloride [K-Dur] 20 meq PO DAILYCM 01/31/18 Bisacodyl [Dulcolax] 10 mg PO DAILY PRN tablet 02/24/18 Docusate Sodium [Colace] 100 mg PO BID #60 cap 02/24/18 Oxycodone HCl/Acetaminophen 1 tab PO 4X/DAY PRN PRN 7 Days #30 02/24/18 [Percocet 5/325] tab Senna/Docusate Sodium [Senokot-S] 2 tablet PO BID tablet 02/24/18 Sertraline HCl [Zoloft] 25 mg PO DAILY #30 tab 02/24/18 proMETHazine tablet [Phenergan 25 mg PO 4X/DAY PRN PRN #30 tab 02/24/18 tablet] oxycodone-acetaminophen 2.5 mg-325 1 tab PO 4X/DAY PRN #30 tab 03/23/18 mg tablet Maternal Family History: No pertinent history Paternal Family History: No pertinent history Smoking Status: Never smoker Tobacco Use: Non-smoker Physical Exam Vital Signs Temp Pulse Resp BP 97.6 F L 63 16 105/67 04/05/18 08:30 04/05/18 08:30 04/05/18 08:30 04/05/18 08:30 General: Alert, Oriented x3, Cooperative, No apparent distress, Well developed, Well nourished HEENT: Atraumatic, Normocephalic, TM's Clear Lungs: Clear to auscultation, No rhonchi, No wheeze, No rales Cardiovascular: Regular rate, Regular Rhythm, No murmurs Psych/Mental Status: Normal Affect, Appropriate, Alert and oriented to time, place, person, mood and affect Assessment/Plan The patient appears to be tolerating hyperbaric oxygen therapy well, which will be continued as per the patient's medical plan.
[2018-04-06 08:27] VITALS: BP 133/79; PULSE 69; RESP 16; TEMP 36.6
--- NOTE | 2018-04-06 12:30 | PCM.HBO.PN ---
History of Present Illness Date of Service: 04/06/18 Presenting Chief Complaint: Compromised skin grafts left lower anterior leg and left posterior leg in Achilles area. GEORGINA SKINNER is a 57 year old, currently undergoing hyperbaric oxygen therapy for compromised skin grafts left lower anterior leg and left posterior leg in Achilles area. Progress: This represents the 2nd treatment course and the 18th such session of hyperbaric oxygen therapy. Patient appears to be tolerating HBO therapy well. Tolerance of hyperbaric oxygen therapy: Hyperbaric oxygen therapy was administered as per the facility's protocol. The patient tolerated hyperbaric oxygen therapy well, without complaints or complications. Upon emergence from the hyperbaric chamber, the patient's vital signs remained stable. The patient was discharged in good condition. 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 without evidence of necrosis (Chronic) GERD (gastroesophageal reflux disease) (Chronic) Nausea (Chronic) Seizure disorder (Chronic) Hypertension (Chronic) Anxiety (Chronic) Chronic pain (Chronic) Neuropathic pain (Chronic) Glioblastoma multiforme (Chronic) Ulcers of both lower legs (Chronic) multiple infected ulcers bilateral legs L97.919 Debility, unspecified (Chronic) Allergies/Adverse Reactions: Allergies adhesive tape Adverse Reaction (Verified 01/19/18 10:54) VERY THIN STEROID SKIN WILL REMOVE SKIN IF ON TOO LONG Home Medications: Ambulatory Orders Medication Instructions Recorded Cholecalciferol (Vitamin D3) 5,000 unit PO DAILY 03/02/17 [Vitamin D3] Dexamethasone 2.5 mg PO DAILY 03/02/17 Famotidine [Pepcid] 20 mg PO BID 03/02/17 Multivitamin [Daily Multiple 1 each PO DAILY 03/02/17 Vitamin] Ondansetron [Zofran] 8 mg PO Q8H PRN PRN 03/02/17 Levetiracetam 750 mg PO BID 05/03/17 Calcium (Elemental) [Os-Guido 500] 500 mg PO DAILY 07/08/17 Lactobacillus Acidophilus 1 each PO DAILY 07/08/17 [Acidophilus Lactobacilli] Gabapentin [Neurontin] 300 mg PO BIDCM 30 Days #60 08/17/17 Acetaminophen [Tylenol Extra 1,000 mg PO DAILY 01/24/18 Strength] Diazepam [Valium] 5 mg PO 4X/DAY PRN PRN #30 tab 01/31/18 Nutritional Supplement [Rodger - 1 packet PO BIDCM 01/31/18 ORANGE FLAVOR] Ondansetron [Zofran] 4 mg IV Q6H PRN PRN vial 01/31/18 Oxycodone [Oxyir] 10 mg PO Q4H PRN PRN 7 Days #60 tab 01/31/18 Polyethylene Glycol 3350 [Miralax] 17 gm PO DAILY 01/31/18 Potassium Chloride [K-Dur] 20 meq PO DAILYCM 01/31/18 Bisacodyl [Dulcolax] 10 mg PO DAILY PRN tablet 02/24/18 Docusate Sodium [Colace] 100 mg PO BID #60 cap 02/24/18 Oxycodone HCl/Acetaminophen 1 tab PO 4X/DAY PRN PRN 7 Days #30 02/24/18 [Percocet 5/325] tab Senna/Docusate Sodium [Senokot-S] 2 tablet PO BID tablet 02/24/18 Sertraline HCl [Zoloft] 25 mg PO DAILY #30 tab 02/24/18 proMETHazine tablet [Phenergan 25 mg PO 4X/DAY PRN PRN #30 tab 02/24/18 tablet] oxycodone-acetaminophen 2.5 mg-325 1 tab PO 4X/DAY PRN #30 tab 03/23/18 mg tablet Maternal Family History: No pertinent history Paternal Family History: No pertinent history Smoking Status: Never smoker Tobacco Use: Non-smoker Physical Exam Vital Signs Temp Pulse Resp BP 97.8 F 69 16 133/79 H 04/06/18 08:27 04/06/18 08:27 04/06/18 08:27 04/06/18 08:27 Assessment/Plan The patient appears to be tolerating hyperbaric oxygen therapy well, which will be continued as per the patient's medical plan.
[2018-04-07 08:15] VITALS: BP 111/70; BP 115/70; PULSE 59; PULSE 71; RESP 16; TEMP 35.9; TEMP 36.5
--- NOTE | 2018-04-07 09:46 | PCM.HBO.PN ---
History of Present Illness Date of Service: 04/07/18 Presenting Chief Complaint: Compromised skin grafts left lower anterior leg and left posterior leg in Achilles area. GEORGINA SKINNER is a 57 year old, currently undergoing hyperbaric oxygen therapy for compromised skin grafts left lower anterior leg and left posterior leg in Achilles area. Progress: This represents the 19th treatment course and the 19th such session of hyperbaric oxygen therapy. Patient appears to be tolerating HBO therapy well. Tolerance of hyperbaric oxygen therapy: Hyperbaric oxygen therapy was administered as per the facility's protocol. The patient tolerated hyperbaric oxygen therapy well, without complaints or complications. Upon emergence from the hyperbaric chamber, the patient's vital signs remained stable. The patient was discharged in good condition. 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 without evidence of necrosis (Chronic) GERD (gastroesophageal reflux disease) (Chronic) Nausea (Chronic) Seizure disorder (Chronic) Hypertension (Chronic) Anxiety (Chronic) Chronic pain (Chronic) Neuropathic pain (Chronic) Glioblastoma multiforme (Chronic) Ulcers of both lower legs (Chronic) multiple infected ulcers bilateral legs L97.919 Debility, unspecified (Chronic) Allergies/Adverse Reactions: Allergies adhesive tape Adverse Reaction (Verified 01/19/18 10:54) VERY THIN STEROID SKIN WILL REMOVE SKIN IF ON TOO LONG Home Medications: Ambulatory Orders Medication Instructions Recorded Cholecalciferol (Vitamin D3) 5,000 unit PO DAILY 03/02/17 [Vitamin D3] Dexamethasone 2.5 mg PO DAILY 03/02/17 Famotidine [Pepcid] 20 mg PO BID 03/02/17 Multivitamin [Daily Multiple 1 each PO DAILY 03/02/17 Vitamin] Ondansetron [Zofran] 8 mg PO Q8H PRN PRN 03/02/17 Levetiracetam 750 mg PO BID 05/03/17 Calcium (Elemental) [Os-Guido 500] 500 mg PO DAILY 07/08/17 Lactobacillus Acidophilus 1 each PO DAILY 07/08/17 [Acidophilus Lactobacilli] Gabapentin [Neurontin] 300 mg PO BIDCM 30 Days #60 08/17/17 Acetaminophen [Tylenol Extra 1,000 mg PO DAILY 01/24/18 Strength] Diazepam [Valium] 5 mg PO 4X/DAY PRN PRN #30 tab 01/31/18 Nutritional Supplement [Rodger - 1 packet PO BIDCM 01/31/18 ORANGE FLAVOR] Ondansetron [Zofran] 4 mg IV Q6H PRN PRN vial 01/31/18 Oxycodone [Oxyir] 10 mg PO Q4H PRN PRN 7 Days #60 tab 01/31/18 Polyethylene Glycol 3350 [Miralax] 17 gm PO DAILY 01/31/18 Potassium Chloride [K-Dur] 20 meq PO DAILYCM 01/31/18 Bisacodyl [Dulcolax] 10 mg PO DAILY PRN tablet 02/24/18 Docusate Sodium [Colace] 100 mg PO BID #60 cap 02/24/18 Oxycodone HCl/Acetaminophen 1 tab PO 4X/DAY PRN PRN 7 Days #30 02/24/18 [Percocet 5/325] tab Senna/Docusate Sodium [Senokot-S] 2 tablet PO BID tablet 02/24/18 Sertraline HCl [Zoloft] 25 mg PO DAILY #30 tab 02/24/18 proMETHazine tablet [Phenergan 25 mg PO 4X/DAY PRN PRN #30 tab 02/24/18 tablet] oxycodone-acetaminophen 2.5 mg-325 1 tab PO 4X/DAY PRN #30 tab 03/23/18 mg tablet Maternal Family History: No pertinent history Paternal Family History: No pertinent history Smoking Status: Never smoker Tobacco Use: Non-smoker Physical Exam Vital Signs Temp Pulse Resp BP 97.7 F L 71 16 111/70 04/07/18 08:15 04/07/18 08:15 04/07/18 08:15 04/07/18 08:15 Assessment/Plan The patient appears to be tolerating hyperbaric oxygen therapy well, which will be continued as per the patient's medical plan.
[2018-04-10 08:22] VITALS: BP 136/83; PULSE 86; RESP 16; TEMP 35.9
--- NOTE | 2018-04-17 09:45 | PCM.HBO.PN ---
History of Present Illness Date of Service: 04/10/18 Presenting Chief Complaint: Compromised skin grafts left lower anterior leg and left posterior leg in Achilles area. GEORGINA SKINNER is a 57 year old, currently undergoing hyperbaric oxygen therapy for compromised skin grafts left lower anterior leg and left posterior leg in Achilles area. Progress: This represents the 20th treatment course and the 20th such session of hyperbaric oxygen therapy. Patient appears to be tolerating HBO therapy well. This is last treatment. Tolerance of hyperbaric oxygen therapy: Hyperbaric oxygen therapy was administered as per the facility's protocol. The patient tolerated hyperbaric oxygen therapy well, without complaints or complications. Upon emergence from the hyperbaric chamber, the patient's vital signs remained stable. The patient was discharged in good condition. 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 without evidence of necrosis (Chronic) GERD (gastroesophageal reflux disease) (Chronic) Nausea (Chronic) Seizure disorder (Chronic) Hypertension (Chronic) Anxiety (Chronic) Chronic pain (Chronic) Neuropathic pain (Chronic) Glioblastoma multiforme (Chronic) Ulcers of both lower legs (Chronic) multiple infected ulcers bilateral legs L97.919 Debility, unspecified (Chronic) Allergies/Adverse Reactions: Allergies adhesive tape Adverse Reaction (Verified 01/19/18 10:54) VERY THIN STEROID SKIN WILL REMOVE SKIN IF ON TOO LONG Home Medications: Ambulatory Orders Medication Instructions Recorded Cholecalciferol (Vitamin D3) 5,000 unit PO DAILY 03/02/17 [Vitamin D3] Dexamethasone 2.5 mg PO DAILY 03/02/17 Famotidine [Pepcid] 20 mg PO BID 03/02/17 Multivitamin [Daily Multiple 1 each PO DAILY 03/02/17 Vitamin] Ondansetron [Zofran] 8 mg PO Q8H PRN PRN 03/02/17 Levetiracetam 750 mg PO BID 05/03/17 Calcium (Elemental) [Os-Guido 500] 500 mg PO DAILY 07/08/17 Lactobacillus Acidophilus 1 each PO DAILY 07/08/17 [Acidophilus Lactobacilli] Gabapentin [Neurontin] 300 mg PO BIDCM 30 Days #60 08/17/17 Acetaminophen [Tylenol Extra 1,000 mg PO DAILY 01/24/18 Strength] Diazepam [Valium] 5 mg PO 4X/DAY PRN PRN #30 tab 01/31/18 Nutritional Supplement [Rodger - 1 packet PO BIDCM 01/31/18 ORANGE FLAVOR] Ondansetron [Zofran] 4 mg IV Q6H PRN PRN vial 01/31/18 Oxycodone [Oxyir] 10 mg PO Q4H PRN PRN 7 Days #60 tab 01/31/18 Polyethylene Glycol 3350 [Miralax] 17 gm PO DAILY 01/31/18 Potassium Chloride [K-Dur] 20 meq PO DAILYCM 01/31/18 Bisacodyl [Dulcolax] 10 mg PO DAILY PRN tablet 02/24/18 Docusate Sodium [Colace] 100 mg PO BID #60 cap 02/24/18 Oxycodone HCl/Acetaminophen 1 tab PO 4X/DAY PRN PRN 7 Days #30 02/24/18 [Percocet 5/325] tab Senna/Docusate Sodium [Senokot-S] 2 tablet PO BID tablet 02/24/18 Sertraline HCl [Zoloft] 25 mg PO DAILY #30 tab 02/24/18 proMETHazine tablet [Phenergan 25 mg PO 4X/DAY PRN PRN #30 tab 02/24/18 tablet] oxycodone-acetaminophen 2.5 mg-325 1 tab PO 4X/DAY PRN #30 tab 03/23/18 mg tablet Maternal Family History: No pertinent history Paternal Family History: No pertinent history Smoking Status: Never smoker Tobacco Use: Non-smoker Physical Exam Vital Signs Temp Pulse Resp BP 96.6 F L 86 16 136/83 H 04/10/18 08:22 04/10/18 08:22 04/10/18 08:22 04/10/18 08:22 General: Alert, Oriented x3 HEENT: Atraumatic, PERRLA, TM's Clear Lungs: Clear to auscultation, Normal air movement Cardiovascular: Regular rate, Regular Rhythm Psych/Mental Status: Normal Affect Assessment/Plan Patient appears to be tolerating hyperbaric oxygen therapy well, which will be continued as per patient's medical plan. This is the 20th and final session today.
== END 2018-04-16 23:59 ==
LOC: WC 08:00
PROVIDERS: Family Provider Student in an Organized Health Care Education/Training Program; PCP Student in an Organized Health Care Education/Training Program; Visit Provider Surgery
DX: T86.821 Skin graft (allograft) (autograft) failure (principal); Y83.2 Surgical operation with anastomosis, bypass or graft as the cause of abnormal reaction of the patient, or of later complication, without mention of misadventure at the time of the procedure; K21.9 Gastro-esophageal reflux disease without esophagitis; I10 Essential (primary) hypertension; G40.909 Epilepsy, unspecified, not intractable, without status epilepticus; Z79.899 Other long term (current) drug therapy; G89.29 Other chronic pain; F41.9 Anxiety disorder, unspecified; L97.929 Non-pressure chronic ulcer of unspecified part of left lower leg with unspecified severity; L97.919 Non-pressure chronic ulcer of unspecified part of right lower leg with unspecified severity
CPT/HCPCS: 11042; 99183; G0277

== ENCOUNTER 2018-05-15 09:45 | Outpatient (RCR) | payer BC, MEDICARE, SELFPAY ==
[2018-04-17 00:42] VITALS: BP 136/83; PULSE 86; RESP 16; TEMP 35.9
[2018-04-24 09:53] VITALS: BP 115/78; PULSE 77; RESP 18; TEMP 36.2
--- NOTE | 2018-04-24 22:22 | PCM.WC.PN ---
Type of Wound Date of Service: 04/24/18 Chief Complaint: Nonhealing skin graft ulcer left lower anterior leg. History of Wound: Surgery 01/24/18 - 1. Surgical preparation left lower posterior leg in Achilles area with excisional debridement nonhealing ulcer and reconstruction with STSG from left flank (5 cm2). 2. Surgical preparation left lower anterior leg with excisional debridement nonhealing ulcer and reconstruction with STSG from left flank (15.75 cm2) and placement of CHELSEA NPWT device. Wound care - Collagen hydrogel. Operative culture - MRSE in both wounds. She was treated with Vancomycin and has completed the treatment. Prealbumin from 01/25/18 was 30.8. Encourage nutritional supplementation with protein to help the healing process. Today the patient denies fever. Her appetite is pretty good. She underwent HBO treatments for her compromised skin grafts and have finished the treatments without problem. Progress of Wound: Improved healing of skin graft left lower anterior leg. - Physical Exam Vital Signs Temp Pulse Resp BP 97.1 F L 77 18 115/78 04/24/18 09:53 04/24/18 09:53 04/24/18 09:53 04/24/18 09:53 Wound Measurements and Assessment WC - Nurse 1 - General Ulcer Measurement Start: 04/24/18 09:53 Freq: Status: Active Protocol: Activity Type Activity Date Activity User E-Sign Co-Sign Detail Recorded Client Recorded Date Recorded By Document 04/24/18 09:53 DL [id number] 04/24/18 10:10 DL 04/24/18 09:53 Wound Center Nurse 1 [Ulcer Assessment] #22 L [place] -Combined with other wound No -Current Size (cm) - Length 0.2 -Current Size (cm) - Width 0.5 -Current Size (cm) - Depth 0.1 -Total Square Cm 0.10 -Photo Taken No -Epithelialization Small 1-33% -Tunneling No -Undermining/Tunneling No -Circular Undermining No -Classification - Thickness Full Thickness without Exposed Support Structure -Exudate Amt Small (1-33%) -Exudate Type Serous -Wound Margin Indistinct, Non -Visible -Granulation Amt None Present (0 %) -Granulation Quality N/A -Slough/Fibrin Yes -Necrosis Amt Small (1-33%) -Necrotic Tissue Type Adherent Slough -Structure Exposed None/Limited to Skin Breakdown -Texture (Riddhi-wound Skin Appearance) Assessed Scarring -Moisture (Riddhi-wound Skin Appearance No Abnormality ) Assessed -Color (Riddhi-wound Skin Appearance) Assessed Hemosiderin Staining -Temperature (Riddhi-wound Skin No Abnormality Appearance) (Pt Warm) -Ulcer Cleansing Rinsed/ Irrigated with Saline -Foul Odor after Cleansing No -Anesthetic Used 4% Lidocaine Solution [Edema Assessment] -Lower Limb Edema Present No -Right Calf (cm) 34.4 -Right Ankle (cm) 20.6 -Left Calf (cm) 34.5 -Left Ankle (cm) 22.0 - Nurse 2 - General Ulcer CM Notes Start: 04/24/18 09:53 Freq: Status: Active Protocol: Activity Type Activity Date Activity User E-Sign Co-Sign Detail Recorded Client Recorded Date Recorded By Document 04/24/18 10: JF [id number] 04/24/18 10:26 04/24/18 10:23 Wound Center Nurse 2 [Procedure/Treatment] #22 L [place] -Time 10:25 -Correct Patient Yes -Correct Side, Site, Position Yes -Correct Procedure Yes -Procedure Performed Yes -Type of Procedure Debridement -Clinical Debridement Subcutaneous -Post Debridement Size (cm) - Length 0.4 -Post Debridement Size (cm) - Width 1.0 -Post Debridement Size (cm) - Depth 0.4 -Total Square Cm 0.40 -Wound/Ulcer Outcome Not Healed -Ulcer Cleansing Rinsed/ Irrigated with Saline -Foul Odor after Cleansing No -Bioengineered Tissue No -Bleeding Controlled with Pressure -Treatment Response Procedure Tolerated Well [See Physician Procedure note for Specifics] Pain Scale: 0-10 Numeric [Pain] -Is Patient Pain Free? Yes Debridement Note Post-Debridement Measurements/Treatment - Nurse 2 - General Ulcer CM Notes Start: 04/24/18 09:53 Freq: Status: Active Protocol: Activity Type Activity Date Activity User E-Sign Co-Sign Detail Recorded Client Recorded Date Recorded By Document 04/24/18 10: JF [id number] 04/24/18 10:26 JF 04/24/18 10:23 Wound Center Nurse 2 #22 L [place] -Time 10:25 -Correct Patient Yes -Correct Side, Site, Position Yes -Correct Procedure Yes -Procedure Performed Yes -Type of Procedure Debridement -Clinical Debridement Subcutaneous -Post Debridement Size (cm) - Length 0.4 -Post Debridement Size (cm) - Width 1.0 -Post Debridement Size (cm) - Depth 0.4 -Total Square Cm 0.40 -Wound/Ulcer Outcome Not Healed -Ulcer Cleansing Rinsed/ Irrigated with Saline -Foul Odor after Cleansing No -Bioengineered Tissue No -Bleeding Controlled with Pressure -Treatment Response Procedure Tolerated Well Pain Scale: 0-10 Numeric Is Patient Pain Free? Yes Wound debrided: #22 Left lower anterior leg. Laterality: Left Wound Grade/Stage: 2. Type of Debridement: Excisional debridement Anesthesia Used: 4% Lidocaine Solution Depth: Down to and including healthy tissue, in the subcutaneous layer Percentage of wound debrided: 100 Instrument Used: 3mm curette Tissue Removed: subcutaneous tissue. Severity: Fat Layer Exposed Amount of bleeding with debridement: Mild Bleeding Controlled with: Pressure Patient tolerated procedure well Assessment/Plan Assessment: 1. Nonhealing ulcer left lower anterior leg. 2. Brain tumor - receiving chemotherapy. 3. s/p surgical preparation left lower posterior leg in Achilles area with excisional debridement nonhealing ulcer and reconstruction with STSG from left flank (5 cm2) and surgical preparation left lower anterior leg with excisional debridement nonhealing ulcer and reconstruction with STSG from left flank (15.75 cm2) and placement of CHELSEA NPWT device. 4. Mild compromise skin grafts left leg. Plan: The left lower anterior leg ulcer is almost healed, about 95%. Continue Collagen Hydrogel dressings daily. Continue the Tubigrip for compression. She has finished HBO treatments for the skin graft compromise to try and salvage the healing of the skin grafts. She tolerated the treatments without problem. Her Prealbumin from 01/25/18 was 30.8. Encourage nutritional supplementation with protein to help the healing process. Followup one week with Wanda Nurse Practitioner. Followup 2 weeks to see me.
[2018-05-02 12:53] VITALS: BP 120/89; PULSE 69; RESP 16; TEMP 36.1
--- NOTE | 2018-05-02 13:26 | PCM.WC.PN ---
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 Status: Chronic Current Visit: Yes Code(s): L97.925 - Non-pressure chronic ulcer of unspecified part of left lower leg with muscle involvement without evidence of necrosis (2) Complication of skin graft Status: Acute Current Visit: Yes Code(s): T86.829 - Unspecified complication of skin graft (allograft) (autograft) (3) Glioblastoma multiforme Status: Chronic Current Visit: No Code(s): C71.9 - Malignant neoplasm of brain, unspecified (4) MRSA (methicillin resistant staph aureus) culture positive Status: Acute Current Visit: No Code(s): Z22.322 - Carrier or suspected carrier of Methicillin resistant Staphylococcus aureus Type of Wound Date of Service: 05/02/18 Chief Complaint: Nonhealing skin graft ulcer left lower anterior leg. History of Wound: Surgery 01/24/18 - 1. Surgical preparation left lower posterior leg in Achilles area with excisional debridement nonhealing ulcer and reconstruction with STSG from left flank (5 cm2). 2. Surgical preparation left lower anterior leg with excisional debridement nonhealing ulcer and reconstruction with STSG from left flank (15.75 cm2) and placement of CHELSEA NPWT device. Wound care - Collagen hydrogel. Operative culture - MRSE in both wounds. She was treated with Vancomycin and has completed the treatment. Prealbumin from 01/25/18 was 30.8. Encourage nutritional supplementation with protein to help the healing process. Today the patient denies fever. Her appetite is pretty good. She underwent HBO treatments for her compromised skin grafts and have finished the treatments without problem. Progress of Wound: No change in healing of skin graft left lower anterior leg since last seen in the wound center. - Physical Exam Vital Signs Temp Pulse Resp BP 96.9 F L 69 16 120/89 H 05/02/18 12:53 05/02/18 12:53 05/02/18 12:53 05/02/18 12:53 General: Alert, Oriented x3 HEENT: Atraumatic Extremities: No edema Skin: Ulcer/ Wound - Left lower leg, distal portion of skin graft. Wound Measurements and Assessment WC - Nurse 1 - General Ulcer Measurement Start: 04/24/18 09:53 Freq: Status: Active Protocol: Activity Type Activity Date Activity User E-Sign Co-Sign Detail Recorded Client Recorded Date Recorded By Document 05/02/18 12:53 DL [id number] 05/02/18 12:57 DL 05/02/18 12:53 Wound Center Nurse 1 [Ulcer Assessment] #22 L [place] -Current Size (cm) - Length 0.1 -Current Size (cm) - Width 0.7 -Current Size (cm) - Depth 0.6 -Total Square Cm 0.07 -Photo Taken No -Exudate Amt None Present (0 %) -Wound Margin Thickened & Rolled Under -Granulation Amt Large (67-100%) -Granulation Quality [place] -Necrosis Amt Small (1-33%) -Necrotic Tissue Type Adherent Slough -Structure Exposed N/A -Texture (Riddhi-wound Skin Appearance) Scarring -Moisture (Riddhi-wound Skin Appearance Dry/Scaly ) -Color (Riddhi-wound Skin Appearance) Hemosiderin Staining -Temperature (Riddhi-wound Skin No Abnormality Appearance) (Pt Warm) -Ulcer Cleansing Rinsed/ Irrigated with Saline -Foul Odor after Cleansing No -Anesthetic Used 4% Lidocaine Solution [Edema Assessment] -Left Calf (cm) 34.1 -Left Ankle (cm) 21.3 WC - Nurse 2 - General Ulcer CM Notes Start: 04/24/18 09:53 Freq: Status: Active Protocol: Activity Type Activity Date Activity User E-Sign Co-Sign Detail Recorded Client Recorded Date Recorded By Document 05/02/18 13:14 [id number] 05/02/18 13:16 05/02/18 13:14 Wound Center Nurse 2 [Procedure/Treatment] #22 L [place] -Time 13:14 -Correct Patient Yes -Correct Side, Site, Position Yes -Correct Procedure Yes -Procedure Performed Yes -Type of Procedure Debridement -Clinical Debridement Subcutaneous -Post Debridement Size (cm) - Length 0.4 -Post Debridement Size (cm) - Width 0.9 -Post Debridement Size (cm) - Depth 0.5 -Total Square Cm 0.36 -Wound/Ulcer Outcome Not Healed -Ulcer Cleansing Rinsed/ Irrigated with Saline -Foul Odor after Cleansing No -Bioengineered Tissue No -Bleeding Controlled with Pressure -Treatment Response Procedure Tolerated Well [See Physician Procedure note for Specifics] Pain Scale: 0-10 Numeric [Pain] -Is Patient Pain Free? Yes Musculoskeletal: No Tenderness to Palpation of Joints or Extremities Neurological: Neuro grossly intact Psych/Mental Status: Normal Affect, Appropriate Debridement Note Post-Debridement Measurements/Treatment WC - Nurse 2 - General Ulcer CM Notes Start: 04/24/18 09:53 Freq: Status: Active Protocol: Activity Type Activity Date Activity User E-Sign Co-Sign Detail Recorded Client Recorded Date Recorded By Document 04/24/18 10:23 [id number] 04/24/18 10:26 Document 05/02/18 13:14 [id number] 05/02/18 13:16 04/24/18 05/02/18 10:23 13:14 Wound Center Nurse 2 #22 L [place] -Time 10:25 13:14 -Correct Patient Yes Yes -Correct Side, Site, Position Yes Yes -Correct Procedure Yes Yes -Procedure Performed Yes Yes -Type of Procedure Debridement Debridement -Clinical Debridement Subcutaneous Subcutaneous -Post Debridement Size (cm) - Length 0.4 0.4 -Post Debridement Size (cm) - Width 1.0 0.9 -Post Debridement Size (cm) - Depth 0.4 0.5 -Total Square Cm 0.40 0.36 -Wound/Ulcer Outcome Not Healed Not Healed -Ulcer Cleansing Rinsed/ Rinsed/ Irrigated with Irrigated with Saline Saline -Foul Odor after Cleansing No No -Bioengineered Tissue No No -Bleeding Controlled with Pressure Pressure -Treatment Response Procedure Procedure Tolerated Well Tolerated Well Pain Scale: 0-10 Numeric Is Patient Pain Free? 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 Nonhealing ulcer left lower anterior leg. 2. Brain tumor - receiving chemotherapy. 3. s/p surgical preparation left lower posterior leg in Achilles area with excisional debridement nonhealing ulcer and reconstruction with STSG from left flank (5 cm2) and surgical preparation left lower anterior leg with excisional debridement nonhealing ulcer and reconstruction with STSG from left flank (15.75 cm2) and placement of CHELSEA NPWT device. 4. Mild compromise skin grafts left leg. Plan: The left lower anterior leg ulcer is almost healed, about 95%. There has been no improvement in the wound since she completed her HBO treatments 2 weeks ago. We would like to prevent her from going back to surgery for further treatment of this non healing skin graft. Will stop the daily Collagen Hydrogel dressings. The opened area of the graft would benefit from negative pressure to help heal from the bottom out. Will apply SNAP negative pressure dressing to try to stimumlate healing of the opened area. Continue the Tubigrip for compression. Her Prealbumin from 01/25/18 was 30.8. Encourage nutritional supplementation with protein to help the healing process. Followup one week. Code Visit [id number]: [id number] Debbi subq tissue 20 sq cm/<
--- NOTE | 2018-05-02 13:30 | PN.PCM_ITS ---
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 Status: Chronic Current Visit: Yes Code(s): L97.925 - Non-pressure chronic ulcer of unspecified part of left lower leg with muscle involvement without evidence of necrosis (2) Complication of skin graft Status: Acute Current Visit: Yes Code(s): T86.829 - Unspecified complication of skin graft (allograft) (autograft) (3) Glioblastoma multiforme Status: Chronic Current Visit: No Code(s): C71.9 - Malignant neoplasm of brain, unspecified (4) MRSA (methicillin resistant staph aureus) culture positive Status: Acute Current Visit: No Code(s): Z22.322 - Carrier or suspected carrier of Methicillin resistant Staphylococcus aureus Type of Wound Date of Service: 05/02/18 Chief Complaint: Nonhealing skin graft ulcer left lower anterior leg. History of Wound: Surgery 01/24/18 - 1. Surgical preparation left lower po sterior leg in Achilles area with excisional debridement nonhealing ulcer and reconstruction with STSG from left flank (5 cm2). 2. Surgical preparation left lower anterior leg with excisional debridement nonhealing ulcer and reconstruction with STSG from left flank (15.75 cm2) and placement of CHELSEA NPWT device. Wound care - Collagen hydrogel. Operative culture - MRSE in both wounds. She was treated with Vancomycin and has completed the treatment. Prealbumin from 01/25/18 was 30.8. Encourage nutritional supplementation with protein to help the healing process. Today the patient denies fever. Her appetite is pretty good. She underwent HBO treatments for her compromised skin grafts and have finished the treatments without problem. Progress of Wound: No change in healing of skin graft left lower anterior leg since last seen in the wound center. - Physical Exam Vital Signs Temp Pulse Resp BP 96.9 F L 69 16 120/89 H 05/02/18 12:53 05/02/18 12:53 05/02/18 12:53 05/02/18 12:53 General: Alert, Oriented x3 HEENT: Atraumatic Extremities: No edema Skin: Ulcer/ Wound - Left lower leg, distal portion of skin graft. Wound Measurements and Assessment WC - Nurse 1 - General Ulcer Measurement Start: 04/24/18 09:53 Freq: Status: Active Protocol: Activity Type Activity Date Activity User E-Sign Co-Sign Detail Recorded Client Recorded Date Recorded By Document 05/02/18 12:53 DL [id number] 05/02/18 12:57 DL 05/02/18 12:53 Wound Center Nurse 1 [Ulcer Assessment] #22 L [place] -Current Size (cm) - Length 0.1 -Current Size (cm) - Width 0.7 -Current Size (cm) - Depth 0.6 -Total Square Cm 0.07 -Photo Taken No -Exudate Amt None Present (0 %) -Wound Margin Thickened & Rolled Under -Granulation Amt Large (67-100%) -Granulation Quality [place] -Necrosis Amt Small (1-33%) -Necrotic Tissue Type Adherent Slough -Structure Exposed N/A -Texture (Riddhi-wound Skin Appearance) Scarring -Moisture (Riddhi-wound Skin Appearance Dry/Scaly ) -Color (Riddhi-wound Skin Appearance) Hemosiderin Staining -Temperature (Riddhi-wound Skin No Abnormality Appearance) (Pt Warm) -Ulcer Cleansing Rinsed/ Irrigated with Saline -Foul Odor after Cleansing No -Anesthetic Used 4% Lidocaine Solution [Edema Assessment] -Left Calf (cm) 34.1 -Left Ankle (cm) 21.3 WC - Nurse 2 - General Ulcer CM Notes Start: 04/24/18 09:53 Freq: Status: Active Protocol: Activity Type Activity Date Activity User E-Sign Co-Sign Detail Recorded Client Recorded Date Recorded By Document 05/02/18 13:14 [id number] 05/02/18 13:16 05/02/18 13:14 Wound Center Nurse 2 [Procedure/Treatment] #22 L [place] -Time 13:14 -Correct Patient Yes -Correct Side, Site, Position Yes -Correct Procedure Yes -Procedure Performed Yes -Type of Procedure Debridement -Clinical Debridement Subcutaneous -Post Debridement Size (cm) - Length 0.4 -Post Debridement Size (cm) - Width 0.9 -Post Debridement Size (cm) - Depth 0.5 -Total Square Cm 0.36 -Wound/Ulcer Outcome Not Healed -Ulcer Cleansing Rinsed/ Irrigated with Saline -Foul Odor after Cleansing No -Bioengineered Tissue No -Bleeding Controlled with Pressure -Treatment Response Procedure Tolerated Well [See Physician Procedure note for Specifics] Pain Scale: 0-10 Numeric [Pain] -Is Patient Pain Free? Yes Musculoskeletal: No Tenderness to Palpation of Joints or Extremities Neurological: Neuro grossly intact Psych/Mental Status: Normal Affect, Appropriate Debridement Note Post-Debridement Measurements/Treatment WC - Nurse 2 - General Ulcer CM Notes Start: 04/24/18 09:53 Freq: Status: Active Protocol: Activity Type Activity Date Activity User E-Sign Co-Sign Detail Recorded Client Recorded Date Recorded By Document 04/24/18 10:23 [id number] 04/24/18 10:26 Document 05/02/18 13:14 [id number] 05/02/18 13:16 04/24/18 05/02/18 10:23 13:14 Wound Center Nurse 2 #22 L [place] -Time 10:25 13:14 -Correct Patient Yes Yes -Correct Side, Site, Position Yes Yes -Correct Procedure Yes Yes -Procedure Performed Yes Yes -Type of Procedure Debridement Debridement -Clinical Debridement Subcutaneous Subcutaneous -Post Debridement Size (cm) - Length 0.4 0.4 -Post Debridement Size (cm) - Width 1.0 0.9 -Post Debridement Size (cm) - Depth 0.4 0.5 -Total Square Cm 0.40 0.36 -Wound/Ulcer Outcome Not Healed Not Healed -Ulcer Cleansing Rinsed/ Rinsed/ Irrigated with Irrigated with Saline Saline -Foul Odor after Cleansing No No -Bioengineered Tissue No No -Bleeding Controlled with Pressure Pressure -Treatment Response Procedure Procedure Tolerated Well Tolerated Well Pain Scale: 0-10 Numeric Is Patient Pain Free? 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 Nonhealing ulcer left lower anterior leg. 2. Brain tumor - receiving chemotherapy. 3. s/p surgical preparation left lower posterior leg in Achilles area with excisional debridement nonhealing ulcer and reconstruction with STSG from left flank (5 cm2) and surgical preparation left lower anterior leg with excisional debridement nonhealing ulcer and reconstruction with STSG f rom left flank (15.75 cm2) and placement of CHELSEA NPWT device. 4. Mild compromise skin grafts left leg. Plan: The left lower anterior leg ulcer is almost healed, about 95%. There has been no improvement in the wound since she completed her HBO treatments 2 weeks ago. We would like to prevent her from going back to surgery for further treatment of this non healing skin graft. Will stop the daily Collagen Hydrogel dressings. The opened area of the graft would benefit from negative pressure to help heal from the bottom out. Will apply SNAP negative pressure dressing to try to stimumlate healing of the opened area. Continue the Tubigrip for compression. Her Prealbumin from 01/25/18 was 30.8. Encourage nutritional supplementation with protein to help the healing process. Followup one week. Code Visit 111xxx-113xx: [id number] Debbi subq tissue 20 sq cm/<
[2018-05-09 14:02] VITALS: BP 102/70; PULSE 61; RESP 18; TEMP 36.4
--- NOTE | 2018-05-09 16:48 | PCM.WC.PN ---
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 Status: Chronic Current Visit: Yes Code(s): L97.925 - Non-pressure chronic ulcer of unspecified part of left lower leg with muscle involvement without evidence of necrosis (2) Complication of skin graft Status: Acute Current Visit: Yes Code(s): T86.829 - Unspecified complication of skin graft (allograft) (autograft) (3) Glioblastoma multiforme Status: Chronic Current Visit: Yes Code(s): C71.9 - Malignant neoplasm of brain, unspecified (4) MRSA (methicillin resistant staph aureus) culture positive Status: Acute Current Visit: No Code(s): Z22.322 - Carrier or suspected carrier of Methicillin resistant Staphylococcus aureus Type of Wound Date of Service: 05/09/18 Chief Complaint: Nonhealing skin graft ulcer left lower anterior leg. History of Wound: Surgery 01/24/18 - 1. Surgical preparation left lower posterior leg in Achilles area with excisional debridement nonhealing ulcer and reconstruction with STSG from left flank (5 cm2). 2. Surgical preparation left lower anterior leg with excisional debridement nonhealing ulcer and reconstruction with STSG from left flank (15.75 cm2) and placement of CHELSEA NPWT device. Wound care - Collagen hydrogel which was stopped 05/02 and a SNAP negative pressure dressing. This stopped after one week due to the odor. Restart Collagen hydrogel 05/09. Operative culture - MRSE in both wounds. She was treated with Vancomycin and has completed the treatment. Prealbumin from 01/25/18 was 30.8. Encourage nutritional supplementation with protein to help the healing process. Today the patient denies fever. Her appetite is pretty good. She underwent HBO treatments for her compromised skin grafts and have finished the treatments without problem. Progress of Wound: Wound appears less shallow. - Physical Exam Vital Signs Temp Pulse Resp BP 97.5 F L 61 18 102/70 05/09/18 14:02 05/09/18 14:02 05/09/18 14:02 05/09/18 14:02 General: Alert, Oriented x3, Cooperative HEENT: Atraumatic Oral: Moist Mucosa Cardiovascular: Regular rate Extremities: No cyanosis, Capillary Refill Less than 3 Seconds, Edema - Mild lower extremity non pitting edema, Peripheral Pulses Normal Skin: Ulcer/ Wound Wound Measurements and Assessment WC - Nurse 1 - General Ulcer Measurement Start: 04/24/18 09:53 Freq: Status: Active Protocol: Activity Type Activity Date Activity User E-Sign Co-Sign Detail Recorded Client Recorded Date Recorded By Document 05/09/18 14:02 CAROLINE [id number] 05/09/18 14:12 DL 05/09/18 14:02 Wound Center Nurse 1 [Ulcer Assessment] #22 L [place] -Current Size (cm) - Length 0.5 -Current Size (cm) - Width 1.1 -Current Size (cm) - Depth 0.3 -Total Square Cm 0.55 -Photo Taken No -Maximum Distance #2 (cm) 0.3 -Circular Undermining Yes -Exudate Amt Medium (34-66%) -Exudate Type Yellow/Green -Wound Margin Thickened & Rolled Under -Granulation Amt Small (1-33%) -Granulation Quality [place] -Necrosis Amt Small (1-33%) -Necrotic Tissue Type Adherent Slough -Structure Exposed N/A -Texture (Riddhi-wound Skin Appearance) Scarring -Moisture (Riddhi-wound Skin Appearance No Abnormality ) -Color (Riddhi-wound Skin Appearance) No Abnormality -Temperature (Riddhi-wound Skin No Abnormality Appearance) (Pt Warm) -Ulcer Cleansing Wound Cleanser -Foul Odor after Cleansing No -Anesthetic Used 4% Lidocaine Solution [Edema Assessment] -Left Calf (cm) 33 -Left Ankle (cm) 21.5 - Nurse 2 - General Ulcer CM Notes Start: 04/24/18 09:53 Freq: Status: Active Protocol: Activity Type Activity Date Activity User E-Sign Co-Sign Detail Recorded Client Recorded Date Recorded By Document 05/09/18 15:27 [id number] 05/09/18 15:28 05/09/18 15:27 Wound Center Nurse 2 [Procedure/Treatment] #22 L [place] -Time 15:28 -Correct Patient Yes -Correct Side, Site, Position Yes -Correct Procedure Yes -Procedure Performed Yes -Type of Procedure Debridement -Clinical Debridement Subcutaneous -Post Debridement Size (cm) - Length 0.6 -Post Debridement Size (cm) - Width 1.0 -Post Debridement Size (cm) - Depth 0.4 -Total Square Cm 0.60 -Wound/Ulcer Outcome Not Healed -Ulcer Cleansing Rinsed/ Irrigated with Saline -Foul Odor after Cleansing No -Bioengineered Tissue No -Bleeding Controlled with Pressure -Treatment Response Procedure Tolerated Well [See Physician Procedure note for Specifics] Pain Scale: 0-10 Numeric [Pain] -Is Patient Pain Free? Yes Musculoskeletal: No Tenderness to Palpation of Joints or Extremities Neurological: Neuro grossly intact Psych/Mental Status: Normal Affect, Appropriate Debridement Note Post-Debridement Measurements/Treatment WC - Nurse 2 - General Ulcer CM Notes Start: 04/24/18 09:53 Freq: Status: Active Protocol: Activity Type Activity Date Activity User E-Sign Co-Sign Detail Recorded Client Recorded Date Recorded By Document 04/24/18 10:23 [id number] 04/24/18 10:26 Document 05/02/18 13:14 [id number] 05/02/18 13:16 Document 05/09/18 15:27 [id number] 05/09/18 15:28 04/24/18 05/02/18 05/09/18 10:23 13:14 15:27 Wound Center Nurse 2 #22 L [place] -Time 10:25 13:14 15:28 -Correct Patient Yes Yes Yes -Correct Side, Site, Position Yes Yes Yes -Correct Procedure Yes Yes Yes -Procedure Performed Yes Yes Yes -Type of Procedure Debridement Debridement Debridement -Clinical Debridement Subcutaneous Subcutaneous Subcutaneous -Post Debridement Size (cm) - Length 0.4 0.4 0.6 -Post Debridement Size (cm) - Width 1.0 0.9 1.0 -Post Debridement Size (cm) - Depth 0.4 0.5 0.4 -Total Square Cm 0.40 0.36 0.60 -Wound/Ulcer Outcome Not Healed Not Healed Not Healed -Ulcer Cleansing Rinsed/ Rinsed/ Rinsed/ Irrigated with Irrigated with Irrigated with Saline Saline Saline -Foul Odor after Cleansing No No No -Bioengineered Tissue No No No -Bleeding Controlled with Pressure Pressure Pressure -Treatment Response Procedure Procedure Procedure Tolerated Well Tolerated Well Tolerated Well Pain Scale: 0-10 Numeric Is Patient Pain Free? 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 Nonhealing ulcer left lower anterior leg. 2. Brain tumor - receiving chemotherapy. 3. s/p surgical preparation left lower posterior leg in Achilles area with excisional debridement nonhealing ulcer and reconstruction with STSG from left flank (5 cm2) and surgical preparation left lower anterior leg with excisional debridement nonhealing ulcer and reconstruction with STSG from left flank (15.75 cm2) and placement of CHELSEA NPWT device. 4. Mild compromise skin grafts left leg. Plan: The left lower anterior leg ulcer is almost healed, about 95%. She completed HBOT 3 weeks ago. We would like to prevent her from going back to surgery for further treatment of this non healing skin graft. The opened area of the graft would benefit from negative pressure, which a SNAP dressing was applied last week. Patient did not like the odor it had after a few days. Her wound does appear to be more shallow but the other margins have minimally increased in size. Will discontinue the SNAP dressing today and start on Aquacel Silver dressing changes daily. Continue the Tubigrip for compression. Her Prealbumin from 01/25/18 was 30.8. Encourage nutritional supplementation with protein to help the healing process. Followup one week with Dr. Moya, so he can evaluate her ulcer. Code Visit 111xxx-113xx: [id number] Debbi subq tissue 20 sq cm/<
--- NOTE | 2018-05-11 09:53 | PN.PCM_ITS ---
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 Status: Chronic Current Visit: Yes Code(s): L97.925 - Non-pressure chronic ulcer of unspecified part of left lower leg with muscle involvement without evidence of necrosis (2) Complication of skin graft Status: Acute Current Visit: Yes Code(s): T86.829 - Unspecified complication of skin graft (allograft) (autograft) (3) Glioblastoma multiforme Status: Chronic Current Visit: Yes Code(s): C71.9 - Malignant neoplasm of brain, unspecified (4) MRSA (methicillin resistant staph aureus) culture positive Status: Acute Current Visit: No Code(s): Z22.322 - Carrier or suspected carrier of Methicillin resistant Staphylococcus aureus Type of Wound Date of Service: 05/09/18 Chief Complaint: Nonhealing skin graft ulcer left lower anterior leg. History of Wound: Surgery 01/24/18 - 1. Surgical preparation left lower p osterior leg in Achilles area with excisional debridement nonhealing ulcer and reconstruction with STSG from left flank (5 cm2). 2. Surgical preparation left lower anterior leg with excisional debridement nonhealing ulcer and reconstruction with STSG from left flank (15.75 cm2) and placement of CHELSEA NPWT device. Wound care - Collagen hydrogel which was stopped 05/02 and a SNAP negative pressure dressing. This stopped after one week due to the odor. Restart Collagen hydrogel 05/09. Operative culture - MRSE in both wounds. She was treated with Vancomycin and has completed the treatment. Prealbumin from 01/25/18 was 30.8. Encourage nutritional supplementation with protein to help the healing process. Today the patient denies fever. Her appetite is pretty good. She underwent HBO treatments for her compromised skin grafts and have finished the treatments without problem. Progress of Wound: Wound appears less shallow. - Physical Exam Vital Signs Temp Pulse Resp BP 97.5 F L 61 18 102/70 05/09/18 14:02 05/09/18 14:02 05/09/18 14:02 05/09/18 14:02 General: Alert, Oriented x3, Cooperative HEENT: Atraumatic Oral: Moist Mucosa Cardiovascular: Regular rate Extremities: No cyanosis, Capillary Refill Less than 3 Seconds, Edema - Mild lower extremity non pitting edema, Peripheral Pulses Normal Skin: Ulcer/ Wound Wound Measurements and Assessment WC - Nurse 1 - General Ulcer Measurement Start: 04/24/18 09:53 Freq: Status: Active Protocol: Activity Type Activity Date Activity User E-Sign Co-Sign Detail Recorded Client Recorded Date Recorded By Document 05/09/18 14:02 DL [id number] 05/09/18 14:12 DL 05/09/18 14:02 Wound Center Nurse 1 [Ulcer Assessment] #22 L [place] -Current Size (cm) - Length 0.5 -Current Size (cm) - Width 1.1 -Current Size (cm) - Depth 0.3 -Total Square Cm 0.55 -Photo Taken No -Maximum Distance #2 (cm) 0.3 -Circular Undermining Yes -Exudate Amt Medium (34-66%) -Exudate Type Yellow/Green -Wound Margin Thickened & Rolled Under -Granulation Amt Small (1-33%) -Granulation Quality [place] -Necrosis Amt Small (1-33%) -Necrotic Tissue Type Adherent Slough -Structure Exposed N/A -Texture (Riddhi-wound Skin Appearance) Scarring -Moisture (Riddhi-wound Skin Appearance No Abnormality ) -Color (Riddhi-wound Skin Appearance) No Abnormality -Temperature (Riddhi-wound Skin No Abnormality Appearance) (Pt Warm) -Ulcer Cleansing Wound Cleanser -Foul Odor after Cleansing No -Anesthetic Used 4% Lidocaine Solution [Edema Assessment] -Left Calf (cm) 33 -Left Ankle (cm) 21.5 - Nurse 2 - General Ulcer CM Notes Start: 04/24/18 09:53 Freq: Status: Active Protocol: Activity Type Activity Date Activity User E-Sign Co-Sign Detail Recorded Client Recorded Date Recorded By Document 05/09/18 15:27 [id number] 05/09/18 15:28 05/09/18 15:27 Wound Center Nurse 2 [Procedure/Treatment] #22 L [place] -Time 15:28 -Correct Patient Yes -Correct Side, Site, Position Yes -Correct Procedure Yes -Procedure Performed Yes -Type of Procedure Debridement -Clinical Debridement Subcutaneous -Post Debridement Size (cm) - Length 0.6 -Post Debridement Size (cm) - Width 1.0 -Post Debridement Size (cm) - Depth 0.4 -Total Square Cm 0.60 -Wound/Ulcer Outcome Not Healed -Ulcer Cleansing Rinsed/ Irrigated with Saline -Foul Odor after Cleansing No -Bioengineered Tissue No -Bleeding Controlled with Pressure -Treatment Response Procedure Tolerated Well [See Physician Procedure note for Specifics] Pain Scale: 0-10 Numeric [Pain] -Is Patient Pain Free? Yes Musculoskeletal: No Tenderness to Palpation of Joints or Extremities Neurological: Neuro grossly intact Psych/Mental Status: Normal Affect, Appropriate Debridement Note Post-Debridement Measurements/Treatment WC - Nurse 2 - General Ulcer CM Notes Start: 04/24/18 09:53 Freq: Status: Active Protocol: Activity Type Activity Date Activity User E-Sign Co-Sign Detail Recorded Client Recorded Date Recorded By Document 04/24/18 10:23 [id number] 04/24/18 10:26 Document 05/02/18 13:14 [id number] 05/02/18 13:16 Document 05/09/18 15:27 [id number] 05/09/18 15:28 04/24/18 05/02/18 05/09/18 10:23 13:14 15:27 Wound Center Nurse 2 #22 L [place] -Time 10:25 13:14 15:28 -Correct Patient Yes Yes Yes -Correct Side, Site, Position Yes Yes Yes -Correct Procedure Yes Yes Yes -Procedure Performed Yes Yes Yes -Type of Procedure Debridement Debridement Debridement -Clinical Debridement Subcutaneous Subcutaneous Subcutaneous -Post Debridement Size (cm) - Length 0.4 0.4 0.6 -Post Debridement Size (cm) - Width 1.0 0.9 1.0 -Post Debridement Size (cm) - Depth 0.4 0.5 0.4 -Total Square Cm 0.40 0.36 0.60 -Wound/Ulcer Outcome Not Healed Not Healed Not Healed -Ulcer Cleansing Rinsed/ Rinsed/ Rinsed/ Irrigated with Irrigated with Irrigated with Saline Saline Saline -Foul Odor after Cleansing No No No -Bioengineered Tissue No No No -Bleeding Controlled with Pressure Pressure Pressure -Treatment Response Procedure Procedure Procedure Tolerated Well Tolerated Well Tolerated Well Pain Scale: 0-10 Numeric Is Patient Pain Free? 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 Nonhealing ulcer left lower anterior leg. 2. Brain tumor - receiving chemotherapy. 3. s/p surgical preparation left lower posterior leg in Achilles area with excisional debridement nonhealing ulcer and reconstruction with STSG from left flank (5 cm2) and surgical preparation left lower anterior leg with excisional debridement nonhealing ulcer and reconstruction with STSG from left flank (15.75 cm2) and placement of CHELSEA NPWT device. 4. Mild compromise skin grafts left leg. Plan: The left lower anterior leg ulcer is almost healed, about 95%. She completed HBOT 3 weeks ago. We would like to prevent her from going back to surgery for further treatment of this non healing skin graft. The opened area of the graft would benefit from negative pressure, which a SNAP dressing was applied last week. Patient did not like the odor it had after a few days. Her wound does appear to be more shallow but the other margins have minimally i ncreased in size. Will discontinue the SNAP dressing today and start on Aquacel Silver dressing changes daily. Continue the Tubigrip for compression. Her Prealbumin from 01/25/18 was 30.8. Encourage nutritional supplementation with protein to help the healing process. Followup one week with Dr. Moya, so he can evaluate her ulcer. Code Visit 111xxx-113xx: [id number] Debbi subq tissue 20 sq cm/<
[2018-05-15 09:50] VITALS: BP 100/66; PULSE 63; RESP 18; TEMP 36
--- NOTE | 2018-05-15 22:25 | PN.PCM_ITS ---
Type of Wound Date of Service: 05/15/18 Chief Complaint: Nonhealing skin graft ulcer left lower anterior leg. History of Wound: Surgery 01/24/18 - 1. Surgical preparation left lower posterior leg in Achilles area with excisional debridement nonhealing ulcer and reconstruction with STSG from left flank (5 cm2). 2. Surgical preparation left lower anterior leg with excisional debridement nonhealing ulcer and reconstruction with STSG from left flank (15.75 cm2) and placement of CHELSEA NPWT device. Wound care - Silver. Operative culture - MRSE in both wounds. She was treated with Vancomycin and has completed the treatment. Prealbumin from 01/25/18 was 30.8. Encourage nutritional supplementation with protein to help the healing process. Today the patient denies fever. Her appetite is pretty good. She underwent HBO treatments for her compromised skin grafts and have finished the treatments without problem. Progress of Wound: Slowly healing. - Physical Exam Vital Signs Temp Pulse Resp BP 96.8 F L 63 18 100/66 05/15/18 09:50 05/15/18 09:50 05/15/18 09:50 05/15/18 09:50 Wound Measurements and Assessment WC - Nurse 1 - General Ulcer Measurement Start: 04/24/18 09:53 Freq: Status: Active Protocol: Activity Type Activity Date Activity User E-Sign Co-Sign Detail Recorded Client Recorded Date Recorded By Document 05/15/18 09:50 [id number] 05/15/18 09:55 05/15/18 09:50 Wound Center Nurse 1 [Ulcer Assessment] #22 L [place] -Combined with other wound No -Current Size (cm) - Length 1.0 -Current Size (cm) - Width 0.1 -Current Size (cm) - Depth 0.8 -Total Square Cm 0.10 -Date of Last Picture (Recall this 05/15/18 field) -Photo Taken Yes -Tunneling No -Undermining/Tunneling Yes -Undermining/Tunneling Starts (O' 12 clock) -Undermining/Tunneling Ends (O'clock) 1 -Maximum Distance (cm) 0.8 -Circular Undermining No -Classification - Thickness Full Thickness without Exposed Support Structure -Exudate Amt Small (1-33%) -Exudate Type Serosanguineous -Wound Margin Distinct, Outline Attached -Granulation Amt Small (1-33%) -Granulation Quality Pale [place] -Slough/Fibrin Yes -Necrosis Amt Small (1-33%) -Necrotic Tissue Type Adherent Slough -Texture (Riddhi-wound Skin Appearance) Assessed Scarring -Moisture (Riddhi-wound Skin Appearance Assessed ) Dry/Scaly -Color (Riddhi-wound Skin Appearance) No Abnormality Assessed -Temperature (Riddhi-wound Skin No Abnormality Appearance) (Pt Warm) -Tenderness on Palpation (Riddhi-wound No Skin Appearance) -Ulcer Cleansing Rinsed/ Irrigated with Saline -Foul Odor after Cleansing No -Anesthetic Used 4% Lidocaine Solution [Edema Assessment] -Left Calf (cm) 35 -Left Ankle (cm) 22 - Nurse 2 - General Ulcer CM Notes Start: 04/24/18 09:53 Freq: Status: Active Protocol: Activity Type Activity Date Activity User E-Sign Co-Sign Detail Recorded Client Recorded Date Recorded By Document 05/15/18 10:35 [id number] 05/15/18 10:36 05/15/18 10:35 Wound Center Nurse 2 [Procedure/Treatment] #22 L [place] -Time 10:35 -Correct Patient Yes -Correct Side, Site, Position Yes -Correct Procedure Yes -Procedure Performed Yes -Type of Procedure Debridement -Clinical Debridement Subcutaneous -Post Debridement Size (cm) - Length 1.0 -Post Debridement Size (cm) - Width 1.2 -Post Debridement Size (cm) - Depth 0.4 -Total Square Cm 1.20 -Wound/Ulcer Outcome Not Healed -Ulcer Cleansing Rinsed/ Irrigated with Saline -Foul Odor after Cleansing No -Bioengineered Tissue No -Bleeding Controlled with Pressure -Treatment Response Procedure Tolerated Well [See Physician Procedure note for Specifics] Pain Scale: 0-10 Numeric [Pain] -Is Patient Pain Free? Yes Debridement Note Post-Debridement Measurements/Treatment - Nurse 2 - General Ulcer CM Notes Start: 04/24/18 09:53 Freq: Status: Active Protocol: Activity Type Activity Date Activity User E-Sign Co-Sign Detail Recorded Client Recorded Date Recorded By Document 04/24/18 10:23 [id number] 04/24/18 10:26 Document 05/02/18 13:14 [id number] 05/02/18 13:16 Document 05/09/18 15:27 [id number] 05/09/18 15:28 Document 05/15/18 10:35 [id number] 05/15/18 10:36 04/24/18 05/02/18 05/09/18 10:23 13:14 15:27 Wound Center Nurse 2 #22 L [place] -Time 10:25 13:14 15:28 -Correct Patient Yes Yes Yes -Correct Side, Site, Position Yes Yes Yes -Correct Procedure Yes Yes Yes -Procedure Performed Yes Yes Yes -Type of Procedure Debridement Debridement Debridement -Clinical Debridement Subcutaneous Subcutaneous Subcutaneous -Post Debridement Size (cm) - Length 0.4 0.4 0.6 -Post Debridement Size (cm) - Width 1.0 0.9 1.0 -Post Debridement Size (cm) - Depth 0.4 0.5 0.4 -Total Square Cm 0.40 0.36 0.60 -Wound/Ulcer Outcome Not Healed Not Healed Not Healed -Ulcer Cleansing Rinsed/ Rinsed/ Rinsed/ Irrigated with Irrigated with Irrigated with Saline Saline Saline -Foul Odor after Cleansing No No No -Bioengineered Tissue No No No -Bleeding Controlled with Pressure Pressure Pressure -Treatment Response Procedure Procedure Procedure Tolerated Well Tolerated Well Tolerated Well Pain Scale: 0-10 Numeric Is Patient Pain Free? Yes Yes Yes 05/15/18 10:35 Wound Center Nurse 2 #22 L [place] -Time 10:35 -Correct Patient Yes -Correct Side, Site, Position Yes -Correct Procedure Yes -Procedure Performed Yes -Type of Procedure Debridement -Clinical Debridement Subcutaneous -Post Debridement Size (cm) - Length 1.0 -Post Debridement Size (cm) - Width 1.2 -Post Debridement Size (cm) - Depth 0.4 -Total Square Cm 1.20 -Wound/Ulcer Outcome Not Healed -Ulcer Cleansing Rinsed/ Irrigated with Saline -Foul Odor after Cleansing No -Bioengineered Tissue No -Bleeding Controlled with Pressure -Treatment Response Procedure Tolerated Well Pain Scale: 0-10 Numeric Is Patient Pain Free? Yes Wound debrided: #22 Left lower anterior leg. Laterality: Left Wound Grade/Stage: 2. Type of Debridement: Excisional debridement Anesthesia Used: 4% Lidocaine Solution Depth: Down to and including healthy tissue, in the subcutaneous layer Percentage of wound debrided: 100 Instrument Used: 3mm curette Tissue Removed: subcutaneous tissue. Severity: Fat Layer Exposed Amount of bleeding with debridement: Mild Bleeding Controlled with: Pressure Patient tolerated procedure well - A wound culture was obtained today. Assessment/Plan Assessment: 1. Nonhealing ulcer left lower anterior leg. 2. Brain tumor - receiving chemotherapy. 3. s/p surgical preparation left lower posterior leg in Achilles area with excisional debridement nonhealing ulcer and reconstruction with STSG from left flank (5 cm2) and surgical preparation left lower anterior leg with excisional debridement nonhealing ulcer and reconstruction with STSG from left flank (15.75 cm2) and placement of CHELSEA NPWT device. 4. Mild compromise skin grafts left leg. Plan: The left lower anterior leg ulcer is slowing down its healing. She completed HBOT 3 weeks ago. We would like to prevent her from going back to surgery for further treatment of this non healing skin graft. A SNAP dressing was applied and had too much odor. Will continue her Silver dressing changes daily. Continue the Tubigrip for compression. The healing scar has curled inward thus making completion healing difficult. So aggressive excisional debridement was done today to roughen up the edges and remove the curled in scar tissue to better promote healing. A wound culture was obtained today. A positive culture will necessitate antibiotic therapy. Would like to try Theraskin graft here at the Wound Center to promote healing. If not successful, will need additional operative debridement with further skin grafting. Her Prealbumin from 01/25/18 was 30.8. Encourage nutritional supplementation with protein to help the healing process. Followup one week with Wanda Nurse Practitioner.
== END 2018-05-17 23:59 ==
LOC: WC 09:45
PROVIDERS: Family Provider Student in an Organized Health Care Education/Training Program; PCP Student in an Organized Health Care Education/Training Program; Visit Provider Surgery
DX: T86.828 Other complications of skin graft (allograft) (autograft) (principal); Y83.2 Surgical operation with anastomosis, bypass or graft as the cause of abnormal reaction of the patient, or of later complication, without mention of misadventure at the time of the procedure; D49.6 Neoplasm of unspecified behavior of brain; L97.822 Non-pressure chronic ulcer of other part of left lower leg with fat layer exposed; Z86.14 Personal history of Methicillin resistant Staphylococcus aureus infection
CPT/HCPCS: 11042; 87070; 87075; 87077; 87186; 87205; 97607

== ENCOUNTER 2018-06-12 09:30 | Outpatient (RCR) | payer MEDICARE, SELFPAY ==
[2018-05-18 00:48] VITALS: BP 100/66; PULSE 63; RESP 18; TEMP 36
[2018-05-22 11:18] VITALS: BP 90/61; PULSE 58; RESP 18; TEMP 36.6
--- NOTE | 2018-05-22 12:30 | PN.PCM_ITS ---
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 Status: Chronic Current Visit: Yes Code(s): L97.925 - Non-pressure chronic ulcer of unspecified part of left lower leg with muscle involvement without evidence of necrosis (2) Complication of skin graft Status: Chronic Current Visit: Yes Code(s): T86.829 - Unspecified complication of skin graft (allograft) (autograft) (3) Infected open wound Status: Acute Current Visit: Yes Code(s): T14.8XXA - Other injury of unspecified body region, initial encounter; L08.9 - Local infection of the skin and subcutaneous tissue, unspecified (4) Glioblastoma multiforme Status: Chronic Current Visit: No Code(s): C71.9 - Malignant neoplasm of brain, unspecified Type of Wound Date of Service: 05/22/18 Chief Complaint: Nonhealing skin graft ulcer left lower anterior leg. History of Wound: Surgery 01/24/18 - 1. Surgical preparation left lower posterior leg in Achilles area with excisional debridement nonhealing ulcer and reconstruction with STSG from left flank (5 cm2). 2. Surgical preparation left lower anterior leg with excisional debridement nonhealing ulcer and reconstruction with STSG from left flank (15.75 cm2) and placement of CHELSEA NPWT device. Wound care - Collagen hydrogel which was stopped 05/02 and a SNAP negative pressure dressing. This stopped after one week due to the odor. Restart Collagen hydrogel 05/09. Operative culture - MRSE in both wounds. She was treated with Vancomycin and has completed the treatment. Prealbumin from 01/25/18 was 30.8. Encourage nutritional supplementation with protein to help the healing process. Today the patient denies fever. Her appetite is pretty good. She underwent HBO treatments for her compromised skin grafts and have finished the treatments without problem. Progress of Wound: Improving. - Physical Exam Vital Signs Temp Pulse Resp BP 97.9 F 58 L 18 90/61 05/22/18 11:18 05/22/18 11:18 05/22/18 11:18 05/22/18 11:18 General: Alert, Oriented x3, Cooperative Lungs: Normal air movement Cardiovascular: Regular rate Extremities: No edema, Capillary Refill Less than 3 Seconds, Peripheral Pulses Normal Skin: Ulcer/ Wound - Left lower leg ulcer at skin graft site. Wound Measurements and Assessment WC - Nurse 1 - General Ulcer Measurement Start: 05/22/18 11:17 Freq: Status: Active Protocol: Activity Type Activity Date Activity User E-Sign Co-Sign Detail Recorded Client Recorded Date Recorded By Document 05/22/18 11:18 [id number] 05/22/18 11:21 05/22/18 11:18 Wound Center Nurse 1 [Ulcer Assessment] #22 L [place] -Combined with other wound No -Current Size (cm) - Length 0.5 -Current Size (cm) - Width 0.7 -Current Size (cm) - Depth 0.4 -Total Square Cm 0.35 -Photo Taken No -Epithelialization Small 1-33% -Tunneling No -Undermining/Tunneling No -Circular Undermining No -Exudate Amt Medium (34-66%) -Exudate Type Serosanguineous -Wound Margin Distinct, Outline Attached -Granulation Amt Small (1-33%) -Granulation Quality Pale [place] -Slough/Fibrin Yes -Necrosis Amt Small (1-33%) -Necrotic Tissue Type Adherent Slough -Texture (Riddhi-wound Skin Appearance) Assessed Scarring -Moisture (Riddhi-wound Skin Appearance No Abnormality ) Assessed -Color (Riddhi-wound Skin Appearance) No Abnormality Assessed -Temperature (Riddhi-wound Skin No Abnormality Appearance) (Pt Warm) -Tenderness on Palpation (Riddhi-wound No Skin Appearance) -Ulcer Cleansing Rinsed/ Irrigated with Saline -Foul Odor after Cleansing No -Anesthetic Used 4% Lidocaine Solution [Edema Assessment] -Left Calf (cm) 35 -Left Ankle (cm) 22 - Nurse 2 - General Ulcer CM Notes Start: 05/22/18 11:17 Freq: Status: Active Protocol: Activity Type Activity Date Activity User E-Sign Co-Sign Detail Recorded Client Recorded Date Recorded By Document 05/22/18 12:07 [id number] 05/22/18 12:08 RANDY 05/22/18 12:07 Wound Center Nurse 2 [Procedure/Treatment] #22 L [place] -Time 12:07 -Correct Patient Yes -Correct Side, Site, Position Yes -Correct Procedure Yes -Procedure Performed Yes -Type of Procedure Debridement -Clinical Debridement Subcutaneous -Post Debridement Size (cm) - Length 1.5 -Post Debridement Size (cm) - Width 0.9 -Post Debridement Size (cm) - Depth 0.6 -Total Square Cm 1.35 -Wound/Ulcer Outcome Not Healed -Ulcer Cleansing Rinsed/ Irrigated with Saline -Foul Odor after Cleansing No -Bioengineered Tissue No -Bleeding Controlled with Pressure -Treatment Response Procedure Tolerated Well [See Physician Procedure note for Specifics] Pain Scale: 0-10 Numeric [Pain] -Is Patient Pain Free? Yes Musculoskeletal: No Tenderness to Palpation of Joints or Extremities Neurological: Neuro grossly intact Psych/Mental Status: Normal Affect, Appropriate Debridement Note Post-Debridement Measurements/Treatment WC - Nurse 2 - General Ulcer CM Notes Start: 05/22/18 11:17 Freq: Status: Active Protocol: Activity Type Activity Date Activity User E-Sign Co-Sign Detail Recorded Client Recorded Date Recorded By Document 05/22/18 12:07 RANDY [id number] 05/22/18 12:08 RANDY 05/22/18 12:07 Wound Center Nurse 2 #22 L [place] -Time 12:07 -Correct Patient Yes -Correct Side, Site, Position Yes -Correct Procedure Yes -Procedure Performed Yes -Type of Procedure Debridement -Clinical Debridement Subcutaneous -Post Debridement Size (cm) - Length 1.5 -Post Debridement Size (cm) - Width 0.9 -Post Debridement Size (cm) - Depth 0.6 -Total Square Cm 1.35 -Wound/Ulcer Outcome Not Healed -Ulcer Cleansing Rinsed/ Irrigated with Saline -Foul Odor after Cleansing No -Bioengineered Tissue No -Bleeding Controlled with Pressure -Treatment Response Procedure Tolerated Well Pain Scale: 0-10 Numeric Is Patient Pain Free? 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 Nonhealing ulcer left lower anterior leg. 2. Brain tumor - receiving chemotherapy. 3. s/p surgical preparation left lower posterior leg in Achilles area with excisional debridement nonhealing ulcer and reconstruction with STSG from left flank (5 cm2) and surgical preparation left lower anterior leg with excisional debridement nonhealing ulcer and reconstruction with STSG from left flank (15.75 cm2) and placement of CHELSEA NPWT device. 4. Mild compromise skin grafts left leg. Plan: The left lower anterior leg ulcer is almost healed, about 95%. She completed HBOT 4 weeks ago. Tried SNAP vac for one week, but patient did not like it so it was discontinued. Wound culture obtained last week which was positive for Staphylococcus hominis hominis. Started her today on Docloxacillin. Continue Aquacel Silver dressing changes daily. Continue the Tubigrip for compression. Applied for theraskin which she was approved for. Will apply her first treatment next week after she has been on her antibiotics for a week. Encouraged her to take a probiotic twice daily and to eat yogurt. Her Prealbumin from 01/25/18 was 30.8. Encourage nutritional supplementation with protein to help the healing process. Followup one week with Dr. Moya. Code Visit [id number]: [id number] Debbi subq tissue 20 sq cm/<
[2018-05-29 12:17] VITALS: BP 115/90; PULSE 60; RESP 16; TEMP 35.8
--- NOTE | 2018-05-29 22:01 | PCM.WC.PN ---
Type of Wound Date of Service: 05/29/18 Chief Complaint: Nonhealing skin graft ulcer left lower anterior leg. History of Wound: Surgery 01/24/18 - 1. Surgical preparation left lower posterior leg in Achilles area with excisional debridement nonhealing ulcer and reconstruction with STSG from left flank (5 cm2). 2. Surgical preparation left lower anterior leg with excisional debridement nonhealing ulcer and reconstruction with STSG from left flank (15.75 cm2) and placement of CHELSEA NPWT device. Wound care - Silver. Operative culture - MRSE in both wounds. She was treated with Vancomycin and has completed the treatment. Prealbumin from 01/25/18 was 30.8. Encourage nutritional supplementation with protein to help the healing process. Today the patient denies fever. Her appetite is pretty good. She underwent HBO treatments for her compromised skin grafts and have finished the treatments without problem. She had a wound culture done on 05/15/18. It showed Staphylococcus hominis hominis and she was placed on Dicloxacillin. Progress of Wound: Slowly healing. - Physical Exam Vital Signs Temp Pulse Resp BP 96.4 F L 60 16 115/90 H 05/29/18 12:17 05/29/18 12:17 05/29/18 12:17 05/29/18 12:17 Wound Measurements and Assessment WC - Nurse 1 - General Ulcer Measurement Start: 05/22/18 11:17 Freq: Status: Active Protocol: Activity Type Activity Date Activity User E-Sign Co-Sign Detail Recorded Client Recorded Date Recorded By Document 05/29/18 12:17 MW [id number] 05/29/18 12:21 MW 05/29/18 12:17 Wound Center Nurse 1 [Ulcer Assessment] #22 L [place] -Combined with other wound No -Current Size (cm) - Length 0.7 -Current Size (cm) - Width 0.7 -Current Size (cm) - Depth 0.7 -Total Square Cm 0.49 -Photo Taken No -Epithelialization Small 1-33% -Tunneling No -Undermining/Tunneling No -Circular Undermining No -Exudate Amt Small (1-33%) -Exudate Type Serosanguineous -Wound Margin Thickened & Rolled Under -Granulation Amt Large (67-100%) -Granulation Quality [place] -Necrosis Amt Small (1-33%) -Necrotic Tissue Type Adherent Slough -Structure Exposed N/A -Texture (Riddhi-wound Skin Appearance) Assessed Localized Edema Scarring -Moisture (Riddhi-wound Skin Appearance Assessed ) Dry/Scaly -Color (Riddhi-wound Skin Appearance) Assessed -Temperature (Riddhi-wound Skin No Abnormality Appearance) (Pt Warm) -Tenderness on Palpation (Riddhi-wound No Skin Appearance) -Ulcer Cleansing Rinsed/ Irrigated with Saline -Foul Odor after Cleansing No -Anesthetic Used 4% Lidocaine Solution [Edema Assessment] -Lower Limb Edema Present Yes -Right Calf (cm) 33.5 -Right Ankle (cm) 20.0 -Left Calf (cm) 33.6 -Left Ankle (cm) 21.5 PONCHO - Nurse 2 - General Ulcer CM Notes Start: 05/22/18 11:17 Freq: Status: Active Protocol: Activity Type Activity Date Activity User E-Sign Co-Sign Detail Recorded Client Recorded Date Recorded By Document 05/29/18 12:49 RANDY [id number] 05/29/18 12:51 05/29/18 12:49 Wound Center Nurse 2 [Procedure/Treatment] #22 L [place] -Time 12:49 -Correct Patient Yes -Correct Side, Site, Position Yes -Correct Procedure Yes -Procedure Performed Yes -Type of Procedure Debridement -Clinical Debridement Subcutaneous -Post Debridement Size (cm) - Length 0.8 -Post Debridement Size (cm) - Width 1.2 -Post Debridement Size (cm) - Depth 0.8 -Total Square Cm 0.96 -Wound/Ulcer Outcome Not Healed -Ulcer Cleansing Rinsed/ Irrigated with Saline -Foul Odor after Cleansing No -Bioengineered Tissue Yes -Type of bioengineered Tissue [place] -Expiration Date 03/01/22 -Product Lot Number [id number] -Percent Used 50 -Saline Lot Number [id number] -Bleeding Controlled with Pressure -Treatment Response Procedure Tolerated Well [See Physician Procedure note for Specifics] Pain Scale: 0-10 Numeric [Pain] -Is Patient Pain Free? Yes Debridement Note Post-Debridement Measurements/Treatment - Nurse 2 - General Ulcer CM Notes Start: 05/22/18 11:17 Freq: Status: Active Protocol: Activity Type Activity Date Activity User E-Sign Co-Sign Detail Recorded Client Recorded Date Recorded By Document 05/22/18 12:07 [id number] 05/22/18 12:08 Document 05/29/18 12:49 [id number] 05/29/18 12:51 05/22/18 05/29/18 12:07 12:49 Wound Center Nurse 2 #22 L [place] -Time 12:07 12:49 -Correct Patient Yes Yes -Correct Side, Site, Position Yes Yes -Correct Procedure Yes Yes -Procedure Performed Yes Yes -Type of Procedure Debridement Debridement -Clinical Debridement Subcutaneous Subcutaneous -Post Debridement Size (cm) - Length 1.5 0.8 -Post Debridement Size (cm) - Width 0.9 1.2 -Post Debridement Size (cm) - Depth 0.6 0.8 -Total Square Cm 1.35 0.96 -Wound/Ulcer Outcome Not Healed Not Healed -Ulcer Cleansing Rinsed/ Rinsed/ Irrigated with Irrigated with Saline Saline -Foul Odor after Cleansing No No -Bioengineered Tissue No Yes -Type of bioengineered Tissue [place] -Expiration Date 03/01/22 -Product Lot Number [id number] -Percent Used 50 -Saline Lot Number [id number] -Bleeding Controlled with Pressure Pressure -Treatment Response Procedure Procedure Tolerated Well Tolerated Well Pain Scale: 0-10 Numeric Is Patient Pain Free? Yes Yes Wound debrided: #22 Left lower anterior leg. Laterality: Left Wound Grade/Stage: 2. Type of Debridement: Excisional debridement Anesthesia Used: 4% Lidocaine Solution Depth: Down to and including healthy tissue, in the subcutaneous layer Percentage of wound debrided: 100 Instrument Used: 3mm curette Tissue Removed: subcutaneous tissue. Severity: Fat Layer Exposed Amount of bleeding with debridement: Mild Bleeding Controlled with: Pressure Patient tolerated procedure well - Thera-skin #1 was applied today without difficulty. Lot Number - [id number]. Saline Lot Number - [id number]. Percent used - 50%. Expiration - March 01, 2022. Assessment/Plan Assessment: 1. Nonhealing ulcer left lower anterior leg. 2. Brain tumor - receiving chemotherapy. 3. s/p surgical preparation left lower posterior leg in Achilles area with excisional debridement nonhealing ulcer and reconstruction with STSG from left flank (5 cm2) and surgical preparation left lower anterior leg with excisional debridement nonhealing ulcer and reconstruction with STSG from left flank (15.75 cm2) and placement of CHELSEA NPWT device. 4. Mild compromise skin grafts left leg. Plan: The left lower anterior leg ulcer is slowing down its healing. She completed HBOT 3 weeks ago. Continue her Silver dressing changes daily. Continue the Tubigrip for compression. A wound culture from 05/15/18 showed Staphylococcus hominis hominis and was placed on Dicloxacillin. Thera-skin skin substitute graft was placed today without difficulty. I used 50% of the graft. If Thera-skin not successful, will need additional operative debridement with further skin grafting. Her Prealbumin from 01/25/18 was 30.8. Encourage nutritional supplementation with protein to help the healing process. Followup one week with Wanda Nurse Practitioner for another placement of Thera-skin skin substitute graft.
--- NOTE | 2018-05-31 22:01 | PN.PCM_ITS ---
Type of Wound Date of Service: 05/29/18 Chief Complaint: Nonhealing skin graft ulcer left lower anterior leg. History of Wound: Surgery 01/24/18 - 1. Surgical preparation left lower posterior leg in Achilles area with excisional debridement nonhealing ulcer and reconstruction with STSG from left flank (5 cm2). 2. Surgical preparation left lower anterior leg with excisional debridement nonhealing ulcer and reconstruction with STSG from left flank (15.75 cm2) and placement of CHELSEA NPWT device. Wound care - Silver. Operative culture - MRSE in both wounds. She was treated with Vancomycin and has completed the treatment. Prealbumin from 01/25/18 was 30.8. Encourage nutritional supplementation with protein to help the healing process. Today the patient denies fever. Her appetite is pretty good. She underwent HBO treatments for her compromised skin grafts and have finished the treatments without problem. She had a wound culture done on 05/15/18. It showed Staphylococcus hominis hominis and she was placed on Dicloxacillin. Progress of Wound: Slowly healing. - Physical Exam Vital Signs Temp Pulse Resp BP 96.4 F L 60 16 115/90 H 05/29/18 12:17 05/29/18 12:17 05/29/18 12:17 05/29/18 12:17 Wound Measurements and Assessment WC - Nurse 1 - General Ulcer Measurement Start: 05/22/18 11:17 Freq: Status: Active Protocol: Activity Type Activity Date Activity User E-Sign Co-Sign Detail Recorded Client Recorded Date Recorded By Document 05/29/18 12:17 MW [id number] 05/29/18 12:21 MW 05/29/18 12:17 Wound Center Nurse 1 [Ulcer Assessment] #22 L [place] -Combined with other wound No -Current Size (cm) - Length 0.7 -Current Size (cm) - Width 0.7 -Current Size (cm) - Depth 0.7 -Total Square Cm 0.49 -Photo Taken No -Epithelialization Small 1-33% -Tunneling No -Undermining/Tunneling No -Circular Undermining No -Exudate Amt Small (1-33%) -Exudate Type Serosanguineous -Wound Margin Thickened & Rolled Under -Granulation Amt Large (67-100%) -Granulation Quality [place] -Necrosis Amt Small (1-33%) -Necrotic Tissue Type Adherent Slough -Structure Exposed N/A -Texture (Riddhi-wound Skin Appearance) Assessed Localized Edema Scarring -Moisture (Riddhi-wound Skin Appearance Assessed ) Dry/Scaly -Color (Riddhi-wound Skin Appearance) Assessed -Temperature (Riddhi-wound Skin No Abnormality Appearance) (Pt Warm) -Tenderness on Palpation (Riddhi-wound No Skin Appearance) -Ulcer Cleansing Rinsed/ Irrigated with Saline -Foul Odor after Cleansing No -Anesthetic Used 4% Lidocaine Solution [Edema Assessment] -Lower Limb Edema Present Yes -Right Calf (cm) 33.5 -Right Ankle (cm) 20.0 -Left Calf (cm) 33.6 -Left Ankle (cm) 21.5 PONCHO - Nurse 2 - General Ulcer CM Notes Start: 05/22/18 11:17 Freq: Status: Active Protocol: Activity Type Activity Date Activity User E-Sign Co-Sign Detail Recorded Client Recorded Date Recorded By Document 05/29/18 12:49 RANDY [id number] 05/29/18 12:51 05/29/18 12:49 Wound Center Nurse 2 [Procedure/Treatment] #22 L [place] -Time 12:49 -Correct Patient Yes -Correct Side, Site, Position Yes -Correct Procedure Yes -Procedure Performed Yes -Type of Procedure Debridement -Clinical Debridement Subcutaneous -Post Debridement Size (cm) - Length 0.8 -Post Debridement Size (cm) - Width 1.2 -Post Debridement Size (cm) - Depth 0.8 -Total Square Cm 0.96 -Wound/Ulcer Outcome Not Healed -Ulcer Cleansing Rinsed/ Irrigated with Saline -Foul Odor after Cleansing No -Bioengineered Tissue Yes -Type of bioengineered Tissue [place] -Expiration Date 03/01/22 -Product Lot Number [id number] -Percent Used 50 -Saline Lot Number [id number] -Bleeding Controlled with Pressure -Treatment Response Procedure Tolerated Well [See Physician Procedure note for Specifics] Pain Scale: 0-10 Numeric [Pain] -Is Patient Pain Free? Yes Debridement Note Post-Debridement Measurements/Treatment - Nurse 2 - General Ulcer CM Notes Start: 05/22/18 11:17 Freq: Status: Active Protocol: Activity Type Activity Date Activity User E-Sign Co-Sign Detail Recorded Client Recorded Date Recorded By Document 05/22/18 12:07 [id number] 05/22/18 12:08 Document 05/29/18 12:49 [id number] 05/29/18 12:51 05/22/18 05/29/18 12:07 12:49 Wound Center Nurse 2 #22 L [place] -Time 12:07 12:49 -Correct Patient Yes Yes -Correct Side, Site, Position Yes Yes -Correct Procedure Yes Yes -Procedure Performed Yes Yes -Type of Procedure Debridement Debridement -Clinical Debridement Subcutaneous Subcutaneous -Post Debridement Size (cm) - Length 1.5 0.8 -Post Debridement Size (cm) - Width 0.9 1.2 -Post Debridement Size (cm) - Depth 0.6 0.8 -Total Square Cm 1.35 0.96 -Wound/Ulcer Outcome Not Healed Not Healed -Ulcer Cleansing Rinsed/ Rinsed/ Irrigated with Irrigated with Saline Saline -Foul Odor after Cleansing No No -Bioengineered Tissue No Yes -Type of bioengineered Tissue [place] -Expiration Date 03/01/22 -Product Lot Number [id number] -Percent Used 50 -Saline Lot Number [id number] -Bleeding Controlled with Pressure Pressure -Treatment Response Procedure Procedure Tolerated Well Tolerated Well Pain Scale: 0-10 Numeric Is Patient Pain Free? Yes Yes Wound debrided: #22 Left lower anterior leg. Laterality: Left Wound Grade/Stage: 2. Type of Debridement: Excisional debridement Anesthesia Used: 4% Lidocaine Solution Depth: Down to and including healthy tissue, in the subcutaneous layer Percentage of wound debrided: 100 Instrument Used: 3mm curette Tissue Removed: subcutaneous tissue. Severity: Fat Layer Exposed Amount of bleeding with debridement: Mild Bleeding Controlled with: Pressure Patient tolerated procedure well - Thera-skin #1 was applied today without diffi culty. Lot Number - [id number]. Saline Lot Number - [id number]. Percent used - 50%. Expiration - March 01, 2022. Assessment/Plan Assessment: 1. Nonhealing ulcer left lower anterior leg. 2. Brain tumor - receiving chemotherapy. 3. s/p surgical preparation left lower posterior leg in Achilles area with excisional debridement nonhealing ulcer and reconstruction with STSG from left flank (5 cm2) and surgical preparation left lower anterior leg with excisional debridement nonhealing ulcer and reconstruction with STSG from left flank (15.75 cm2) and placement of CHELSEA NPWT device. 4. Mild compromise skin grafts left leg. Plan: The left lower anterior leg ulcer is slowing down its healing. She completed HBOT 3 weeks ago. Continue her Silver dressing changes daily. Continue the Tubigrip for compression. A wound culture from 05/15/18 showed Staphylococcus hominis hominis and was placed on Dicloxacillin. Thera-skin skin substitute graft was placed today without difficulty. I used 50% of the graft. If Thera-skin not successful, will need additional operative debridement with further skin grafting. Her Prealbumin from 01/25/18 was 30.8. Encourage nutritional supplementation with protein to help the healing process. Followup one week with Wanda Nurse Practitioner for another placement of Thera-skin skin substitute graft.
[2018-06-05 09:11] VITALS: BP 115/69; PULSE 65; RESP 18; TEMP 36
--- NOTE | 2018-06-05 09:13 | WC ---
therashin left inplace with veil wound not measured
--- NOTE | 2018-06-05 15:03 | PCM.WC.PN ---
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 History of Wound: Surgery 01/24/18 - 1. Surgical preparation left lower posterior leg in Achilles area with excisional debridement nonhealing ulcer and reconstruction with STSG from left flank (5 cm2). 2. Surgical preparation left lower anterior leg with excisional debridement nonhealing ulcer and reconstruction with STSG from left flank (15.75 cm2) and placement of CHELSEA NPWT device. Wound care - Silver. Operative culture - MRSE in both wounds. She was treated with Vancomycin and has completed the treatment. Prealbumin from 01/25/18 was 30.8. Encourage nutritional supplementation with protein to help the healing process. Today the patient denies fever. Her appetite is pretty good. She underwent HBO treatments for her compromised skin grafts and have finished the treatments without problem. She had a wound culture done on 05/15/18. It showed Staphylococcus hominis hominis and she was placed on Dicloxacillin. Progress of Wound: Slowly healing. - Physical Exam Vital Signs Temp Pulse Resp BP 96.8 F L 65 18 115/69 06/05/18 09:11 06/05/18 09:11 06/05/18 09:11 06/05/18 09:11 General: Alert, Oriented x3, Cooperative HEENT: Atraumatic Oral: Moist Mucosa Extremities: No edema, Capillary Refill Less than 3 Seconds, No Calf Tenderness Skin: No rashes, Ulcer/ Wound - Left lower anterior leg Wound Measurements and Assessment WC - Nurse 1 - General Ulcer Measurement Start: 05/22/18 11:17 Freq: Status: Active Protocol: Activity Type Activity Date Activity User E-Sign Co-Sign Detail Recorded Client Recorded Date Recorded By Document 06/05/18 09:11 RB [id number] 06/05/18 09:13 RB 06/05/18 09:11 Wound Center Nurse 1 [Ulcer Assessment] #22 L [place] -Combined with other wound No -Photo Taken No -Undermining/Tunneling No -Circular Undermining No -Granulation Amt None Present (0 %) -Texture (Riddhi-wound Skin Appearance) Assessed -Moisture (Riddhi-wound Skin Appearance Assessed ) -Color (Riddhi-wound Skin Appearance) Assessed -Temperature (Riddhi-wound Skin No Abnormality Appearance) (Pt Warm) -Tenderness on Palpation (Riddhi-wound No Skin Appearance) [Edema Assessment] -Lower Limb Edema Present Yes -Right Calf (cm) 32.1 -Right Ankle (cm) 20.1 -Left Calf (cm) 32 -Left Ankle (cm) 21.2 06/05/18 09:13 Wound Center by Santa Kumar left inplace with veil wound not measured Initialized on 06/05/18 09:13 - END OF NOTE WC - Nurse 2 - General Ulcer CM Notes Start: 05/22/18 11:17 Freq: Status: Active Protocol: Activity Type Activity Date Activity User E-Sign Co-Sign Detail Recorded Client Recorded Date Recorded By Document 06/05/18 09:17 RANDY [id number] 06/05/18 09:22 RANDY 06/05/18 09:17 Wound Center Nurse 2 [Procedure/Treatment] #22 L [place] -Time 09:21 -Correct Patient Yes -Correct Side, Site, Position Yes -Correct Procedure Yes -Procedure Performed Yes -Type of Procedure Debridement -Clinical Debridement Subcutaneous -Post Debridement Size (cm) - Length 1.2 -Post Debridement Size (cm) - Width 1.2 -Post Debridement Size (cm) - Depth 0.5 -Total Square Cm 1.44 -Wound/Ulcer Outcome Not Healed -Ulcer Cleansing Rinsed/ Irrigated with Saline -Foul Odor after Cleansing No -Bioengineered Tissue Yes -Type of bioengineered Tissue [place] -Expiration Date 02/28/22 -Product Lot Number [id number] -Percent Used 100 -Saline Lot Number [id number] -Bleeding Controlled with Pressure -Treatment Response Procedure Tolerated Well [See Physician Procedure note for Specifics] Pain Scale: 0-10 Numeric [Pain] -Is Patient Pain Free? Yes Musculoskeletal: No Tenderness to Palpation of Joints or Extremities Neurological: Neuro grossly intact Psych/Mental Status: Normal Affect, Appropriate Debridement Note Post-Debridement Measurements/Treatment WC - Nurse 2 - General Ulcer CM Notes Start: 05/22/18 11:17 Freq: Status: Active Protocol: Activity Type Activity Date Activity User E-Sign Co-Sign Detail Recorded Client Recorded Date Recorded By Document 05/22/18 12:07 [id number] 05/22/18 12:08 Document 05/29/18 12:49 [id number] 05/29/18 12:51 Document 06/05/18 09:17 [id number] 06/05/18 09:22 05/22/18 05/29/18 06/05/18 12:07 12:49 09:17 Wound Center Nurse 2 #22 L [place] -Time 12:07 12:49 09:21 -Correct Patient Yes Yes Yes -Correct Side, Site, Position Yes Yes Yes -Correct Procedure Yes Yes Yes -Procedure Performed Yes Yes Yes -Type of Procedure Debridement Debridement Debridement -Clinical Debridement Subcutaneous Subcutaneous Subcutaneous -Post Debridement Size (cm) - Length 1.5 0.8 1.2 -Post Debridement Size (cm) - Width 0.9 1.2 1.2 -Post Debridement Size (cm) - Depth 0.6 0.8 0.5 -Total Square Cm 1.35 0.96 1.44 -Wound/Ulcer Outcome Not Healed Not Healed Not Healed -Ulcer Cleansing Rinsed/ Rinsed/ Rinsed/ Irrigated with Irrigated with Irrigated with Saline Saline Saline -Foul Odor after Cleansing No No No -Bioengineered Tissue No Yes Yes -Type of bioengineered Tissue [place] -Expiration Date 03/01/22 02/28/22 -Product Lot Number [id number] -Percent Used 50 100 -Saline Lot Number [id number] -Bleeding Controlled with Pressure Pressure Pressure -Treatment Response Procedure Procedure Procedure Tolerated Well Tolerated Well Tolerated Well Pain Scale: 0-10 Numeric Is Patient Pain Free? 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 Nonhealing ulcer left lower anterior leg. 2. Brain tumor - receiving chemotherapy. 3. s/p surgical preparation left lower posterior leg in Achilles area with excisional debridement nonhealing ulcer and reconstruction with STSG from left flank (5 cm2) and surgical preparation left lower anterior leg with excisional debridement nonhealing ulcer and reconstruction with STSG from left flank (15.75 cm2) and placement of CHELSEA NPWT device. 4. Mild compromise skin grafts left leg. Plan: The left lower anterior leg ulcer is slowing down its healing. She completed HBOT 4 weeks ago. Continue the Tubigrip for compression. A wound culture from 05/15/18 showed Staphylococcus hominis hominis and was placed on Dicloxacillin. The first Thera-skin came off when her wound veil was removed. Thera-skin skin substitute graft #2 was placed today without difficulty. I used 100% of the graft, folding it over. There was a decrease in the size of ulcer after the first application. If Thera-skin not successful, will need additional operative debridement with further skin grafting. Her Prealbumin from 01/25/18 was 30.8. Encourage nutritional supplementation with protein to help the healing process. Followup one week with Dr. Moya for another placement of Thera-skin skin substitute graft. Code Visit [id number]: 01008 Skin sub graft trnk/arm/leg
[2018-06-12 09:46] VITALS: BP 129/81; PULSE 63; RESP 20; TEMP 36
--- NOTE | 2018-06-12 22:19 | PN.PCM_ITS ---
Type of Wound Date of Service: 06/12/18 Chief Complaint: Nonhealing skin graft ulcer left lower anterior leg. History of Wound: Surgery 01/24/18 - 1. Surgical preparation left lower posterior leg in Achilles area with excisional debridement nonhealing ulcer and reconstruction with STSG from left flank (5 cm2). 2. Surgical preparation left lower anterior leg with excisional debridement nonhealing ulcer and reconstruction with STSG from left flank (15.75 cm2) and placement of CHELSEA NPWT device. Wound care - Silver. Operative culture - MRSE in both wounds. She was treated with Vancomycin and has completed the treatment. Prealbumin from 01/25/18 was 30.8. Encourage nutritional supplementation with protein to help the healing process. Today the patient denies fever. Her appetite is pretty good. She underwent HBO treatments for her compromised skin grafts and have finished the treatments without problem. She had a wound culture done on 05/15/18. It showed Staphylococcus hominis hominis and she was placed on Dicloxacillin. Thera-skin skin substitute graft placement has been started. She has had two applications thus far. Progress of Wound: Slowly healing. - Physical Exam Vital Signs Temp Pulse Resp BP 96.8 F L 63 20 H 129/81 H 06/12/18 09:46 06/12/18 09:46 06/12/18 09:46 06/12/18 09:46 Wound Measurements and Assessment WC - Nurse 1 - General Ulcer Measurement Start: 05/22/18 11:17 Freq: Status: Active Protocol: Activity Type Activity Date Activity User E-Sign Co-Sign Detail Recorded Client Recorded Date Recorded By Document 06/12/18 09:46 DL [id number] 06/12/18 09:55 DL 06/12/18 09:46 Wound Center Nurse 1 [Ulcer Assessment] #22 L [place] -Current Size (cm) - Length 0.6 -Current Size (cm) - Width 0.6 -Current Size (cm) - Depth 0.6 -Total Square Cm 0.36 -Photo Taken No -Exudate Amt Small (1-33%) -Exudate Type Serosanguineous -Wound Margin Thickened & Rolled Under -Granulation Amt Large (67-100%) -Granulation Quality [place] -Necrosis Amt None Present (0 %) -Structure Exposed N/A -Texture (Riddhi-wound Skin Appearance) Scarring -Moisture (Riddhi-wound Skin Appearance No Abnormality ) Dry/Scaly -Color (Riddhi-wound Skin Appearance) No Abnormality -Temperature (Riddhi-wound Skin No Abnormality Appearance) (Pt Warm) -Ulcer Cleansing Rinsed/ Irrigated with Saline -Foul Odor after Cleansing No -Anesthetic Used 4% Lidocaine Solution - Nurse 2 - General Ulcer CM Notes Start: 05/22/18 11:17 Freq: Status: Active Protocol: Activity Type Activity Date Activity User E-Sign Co-Sign Detail Recorded Client Recorded Date Recorded By Document 06/12/18 10:43 [id number] 06/12/18 10:45 06/12/18 10:43 Wound Center Nurse 2 [Procedure/Treatment] -Time 10:43 -Correct Patient Yes -Correct Side, Site, Position Yes -Correct Procedure Yes -Procedure Performed Yes -Type of Procedure Debridement -Clinical Debridement Subcutaneous -Post Debridement Size (cm) - Length 1 -Post Debridement Size (cm) - Width 1 -Post Debridement Size (cm) - Depth 0.3 -Total Square Cm 1 -Wound/Ulcer Outcome Not Healed -Ulcer Cleansing Rinsed/ Irrigated with Saline -Foul Odor after Cleansing No -Bioengineered Tissue Yes -Type of bioengineered Tissue [place] -Expiration Date 01/31/22 -Product Lot Number [id number] -Percent Used 100 -Saline Lot Number [id number] -Bleeding Controlled with Pressure -Treatment Response Procedure Tolerated Well [See Physician Procedure note for Specifics] Pain Scale: 0-10 Numeric [Pain] -Is Patient Pain Free? Yes Debridement Note Post-Debridement Measurements/Treatment - Nurse 2 - General Ulcer CM Notes Start: 05/22/18 11:17 Freq: Status: Active Protocol: Activity Type Activity Date Activity User E-Sign Co-Sign Detail Recorded Client Recorded Date Recorded By Document 05/22/18 12:07 [id number] 05/22/18 12:08 Document 05/29/18 12:49 [id number] 05/29/18 12:51 Document 06/05/18 09:17 [id number] 06/05/18 09:22 Document 06/12/18 10:43 [id number] 06/12/18 10:45 05/22/18 05/29/18 06/05/18 12:07 12:49 09:17 Wound Center Nurse 2 #22 L [place] -Time 12:07 12:49 09:21 -Correct Patient Yes Yes Yes -Correct Side, Site, Position Yes Yes Yes -Correct Procedure Yes Yes Yes -Procedure Performed Yes Yes Yes -Type of Procedure Debridement Debridement Debridement -Clinical Debridement Subcutaneous Subcutaneous Subcutaneous -Post Debridement Size (cm) - Length 1.5 0.8 1.2 -Post Debridement Size (cm) - Width 0.9 1.2 1.2 -Post Debridement Size (cm) - Depth 0.6 0.8 0.5 -Total Square Cm 1.35 0.96 1.44 -Wound/Ulcer Outcome Not Healed Not Healed Not Healed -Ulcer Cleansing Rinsed/ Rinsed/ Rinsed/ Irrigated with Irrigated with Irrigated with Saline Saline Saline -Foul Odor after Cleansing No No No -Bioengineered Tissue No Yes Yes -Type of bioengineered Tissue [place] -Expiration Date 03/01/22 02/28/22 -Product Lot Number [id number] -Percent Used 50 100 -Saline Lot Number [id number] -Bleeding Controlled with Pressure Pressure Pressure -Treatment Response Procedure Procedure Procedure Tolerated Well Tolerated Well Tolerated Well Pain Scale: 0-10 Numeric Is Patient Pain Free? Yes Yes Yes 06/12/18 10:43 Wound Center Nurse 2 #22 L [place] -Time 10:43 -Correct Patient Yes -Correct Side, Site, Position Yes -Correct Procedure Yes -Procedure Performed Yes -Type of Procedure Debridement -Clinical Debridement Subcutaneous -Post Debridement Size (cm) - Length 1 -Post Debridement Size (cm) - Width 1 -Post Debridement Size (cm) - Depth 0.3 -Total Square Cm 1 -Wound/Ulcer Outcome Not Healed -Ulcer Cleansing Rinsed/ Irrigated with Saline -Foul Odor after Cleansing No -Bioengineered Tissue Yes -Type of bioengineered Tissue [place] -Expiration Date 01/31/22 -Product Lot Number [id number] -Percent Used 100 -Saline Lot Number [id number] -Bleeding Controlled with Pressure -Treatment Response Procedure Tolerated Well Pain Scale: 0-10 Numeric Is Patient Pain Free? Yes Wound debrided: #22 Left lower anterior leg. Laterality: Left Wound Grade/Stage: 2. Type of Debridement: Excisional debridement Anesthesia Used: 4% Lidocaine Solution Depth: Down to and including healthy tissue, in the subcutaneous layer Percentage of wound debrided: 100 Instrument Used: 3mm curette Tissue Removed: subcutaneous tissue. Severity: Fat Layer Exposed Amount of bleeding with debridement: Mild Bleeding Controlled with: Pressure Patient tolerated procedure well - Thera-skin #3 was applied today without difficulty. Product Lot Number - [id number]. Saline Lot Number - [id number]. Percent used - 100%. Expiration - January 31, 2022. Assessment/Plan Assessment: 1. Nonhealing ulcer left lower anterior leg. 2. Brain tumor - receiving chemotherapy. 3. s/p surgical preparation left lower posterior leg in Achilles area with excisional debridement nonhealing ulcer and reconstruction with STSG from left flank (5 cm2) and surgical preparation left lower anterior leg with excisional debridement nonhealing ulcer and reconstruction with STSG from left flank (15.75 cm2) and placement of CHELSEA NPWT device. 4. Mild compromise skin grafts left leg. Plan: The left lower anterior leg ulcer had slowed down its healing. She completed HBOT 3 weeks ago. Continue the Tubigrip for compression. A wound culture from 05/15/18 showed Staphylococcus hominis hominis and was placed on Dicloxacillin. Thera-skin skin substitute graft was placed today without difficulty. I used 100% of the graft. This is application #3. If Thera-skin not successful, will need additional operative debridement with further skin grafting. Her Prealbumin from 01/25/18 was 30.8. Encourage nutritional supplementation with protein to help the healing process. Followup one week with Wanda Nurse Practitioner for another placement of Thera-skin skin substitute graft.
== END 2018-06-16 23:59 ==
LOC: WC 09:30
PROVIDERS: Family Provider Student in an Organized Health Care Education/Training Program; PCP Student in an Organized Health Care Education/Training Program; Visit Provider Surgery
DX: T86.828 Other complications of skin graft (allograft) (autograft) (principal); Y83.2 Surgical operation with anastomosis, bypass or graft as the cause of abnormal reaction of the patient, or of later complication, without mention of misadventure at the time of the procedure; C71.9 Malignant neoplasm of brain, unspecified; L97.822 Non-pressure chronic ulcer of other part of left lower leg with fat layer exposed
CPT/HCPCS: 11042; 15271; Q4121

== ENCOUNTER 2018-07-17 10:30 | Outpatient (RCR) | payer MEDICARE, SELFPAY ==
[2018-06-17 00:49] VITALS: BP 129/81; PULSE 63; RESP 20; TEMP 36
[2018-06-19 08:26] VITALS: BP 99/73; PULSE 73; RESP 20; TEMP 36.3
--- NOTE | 2018-06-19 11:33 | PCM.WC.PN ---
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 History of Wound: Surgery 01/24/18 - 1. Surgical preparation left lower posterior leg in Achilles area with excisional debridement nonhealing ulcer and reconstruction with STSG from left flank (5 cm2). 2. Surgical preparation left lower anterior leg with excisional debridement nonhealing ulcer and reconstruction with STSG from left flank (15.75 cm2) and placement of CHELSEA NPWT device. Wound care - Silver. Operative culture - MRSE in both wounds. She was treated with Vancomycin and has completed the treatment. Prealbumin from 01/25/18 was 30.8. Encourage nutritional supplementation with protein to help the healing process. Today the patient denies fever. Her appetite is pretty good. She underwent HBO treatments for her compromised skin grafts and have finished the treatments without problem. She had a wound culture done on 05/15/18. It showed Staphylococcus hominis hominis and she was placed on Dicloxacillin. Started to use Theraskin on left distal leg skin graft opening. 06/19/18 has a new wound on proximal portion of left lower leg. She banged it on a cupboard and has had it for 2 weeks with no improvement in the open area. Progress of Wound: Slowly healing. - Physical Exam Vital Signs Temp Pulse Resp BP 97.3 F L 73 20 H 99/73 06/19/18 08:26 06/19/18 08:26 06/19/18 08:26 06/19/18 08:26 General: Alert, Cooperative HEENT: Atraumatic Extremities: No edema, Capillary Refill Less than 3 Seconds Skin: Ulcer/ Wound - Left distal lower leg with opening on distal aspect of skin graft. New wound on proximal portion of left lower anterior leg that is clean and pink. Wound Measurements and Assessment WC - Nurse 1 - General Ulcer Measurement Start: 06/19/18 08:26 Freq: Status: Active Protocol: Activity Type Activity Date Activity User E-Sign Co-Sign Detail Recorded Client Recorded Date Recorded By Document 06/19/18 08:26 DL [id number] 06/19/18 08:34 DL 06/19/18 08:26 Wound Center Nurse 1 [Ulcer Assessment] #23 L [place] -Current Size (cm) - Length 2.3 -Current Size (cm) - Width 1.1 -Current Size (cm) - Depth 0.1 -Total Square Cm 2.53 -Photo Taken Yes -Exudate Amt Small (1-33%) -Exudate Type Yellow/Green -Wound Margin Distinct, Outline Attached -Granulation Amt Medium (34-66%) -Granulation Quality Red -Necrosis Amt Medium (34-66%) -Necrotic Tissue Type Adherent Slough -Structure Exposed N/A -Texture (Riddhi-wound Skin Appearance) Scarring -Moisture (Riddhi-wound Skin Appearance Dry/Scaly ) -Color (Riddhi-wound Skin Appearance) No Abnormality -Temperature (Riddhi-wound Skin No Abnormality Appearance) (Pt Warm) -Ulcer Cleansing Wound Cleanser -Foul Odor after Cleansing No -Anesthetic Used 4% Lidocaine Solution #22 L [place] -Current Size (cm) - Length 0.6 -Current Size (cm) - Width 0.7 -Current Size (cm) - Depth 0.8 -Total Square Cm 0.42 -Photo Taken No -Exudate Amt Small (1-33%) -Exudate Type Serous -Wound Margin Distinct, Outline Attached -Granulation Amt Large (67-100%) -Granulation Quality [place] -Necrosis Amt None Present (0 %) -Structure Exposed N/A -Texture (Riddhi-wound Skin Appearance) Scarring -Moisture (Riddhi-wound Skin Appearance No Abnormality ) -Color (Riddhi-wound Skin Appearance) Rubor -Temperature (Riddhi-wound Skin No Abnormality Appearance) (Pt Warm) -Ulcer Cleansing Wound Cleanser -Foul Odor after Cleansing No -Anesthetic Used 4% Lidocaine Solution [Edema Assessment] -Left Calf (cm) 33.5 -Left Ankle (cm) 21.8 WC - Nurse 2 - General Ulcer CM Notes Start: 06/19/18 08:26 Freq: Status: Active Protocol: Activity Type Activity Date Activity User E-Sign Co-Sign Detail Recorded Client Recorded Date Recorded By Document 06/19/18 09:02 RANDY [id number] 06/19/18 09:04 RANDY 06/19/18 09:02 Wound Center Nurse 2 [Procedure/Treatment] #23 L [place] -Time 09:02 -Correct Patient Yes -Correct Side, Site, Position Yes -Correct Procedure Yes -Procedure Performed Yes -Type of Procedure Debridement -Clinical Debridement Subcutaneous -Post Debridement Size (cm) - Length 2.5 -Post Debridement Size (cm) - Width 1.5 -Post Debridement Size (cm) - Depth 0.1 -Total Square Cm 3.75 -Wound/Ulcer Outcome Not Healed -Ulcer Cleansing Rinsed/ Irrigated with Saline -Foul Odor after Cleansing No -Bioengineered Tissue Yes -Type of bioengineered Tissue [place] -Expiration Date 01/24/22 -Product Lot Number [id number] -Percent Used 100 -Saline Lot Number [id number] -Bleeding Controlled with Pressure -Offloading No #22 L [place] -Time 09:03 -Correct Patient Yes -Correct Side, Site, Position Yes -Correct Procedure Yes -Procedure Performed Yes -Type of Procedure Debridement -Clinical Debridement Subcutaneous -Post Debridement Size (cm) - Length 0.8 -Post Debridement Size (cm) - Width 0.9 -Post Debridement Size (cm) - Depth 0.8 -Total Square Cm 0.72 -Wound/Ulcer Outcome Not Healed -Ulcer Cleansing Rinsed/ Irrigated with Saline -Foul Odor after Cleansing No -Bioengineered Tissue Yes -Type of bioengineered Tissue [place] -Expiration Date 01/24/22 -Product Lot Number [id number] -Percent Used 100 -Saline Lot Number [id number] -Bleeding Controlled with Pressure -Offloading No [See Physician Procedure note for Specifics] Pain Scale: 0-10 Numeric [Pain] -Is Patient Pain Free? Yes Musculoskeletal: No Tenderness to Palpation of Joints or Extremities, No Muscle Wasting Neurological: Neuro grossly intact Psych/Mental Status: Normal Affect, Appropriate Debridement Note Post-Debridement Measurements/Treatment WC - Nurse 2 - General Ulcer CM Notes Start: 06/19/18 08:26 Freq: Status: Active Protocol: Activity Type Activity Date Activity User E-Sign Co-Sign Detail Recorded Client Recorded Date Recorded By Document 06/19/18 09:02 RANDY [id number] 06/19/18 09:04 RANDY 06/19/18 09:02 Wound Center Nurse 2 #23 L [place] -Time 09:02 -Correct Patient Yes -Correct Side, Site, Position Yes -Correct Procedure Yes -Procedure Performed Yes -Type of Procedure Debridement -Clinical Debridement Subcutaneous -Post Debridement Size (cm) - Length 2.5 -Post Debridement Size (cm) - Width 1.5 -Post Debridement Size (cm) - Depth 0.1 -Total Square Cm 3.75 -Wound/Ulcer Outcome Not Healed -Ulcer Cleansing Rinsed/ Irrigated with Saline -Foul Odor after Cleansing No -Bioengineered Tissue Yes -Type of bioengineered Tissue [place] -Expiration Date 01/24/22 -Product Lot Number [id number] -Percent Used 100 -Saline Lot Number [id number] -Bleeding Controlled with Pressure -Offloading No #22 L [place] -Time 09:03 -Correct Patient Yes -Correct Side, Site, Position Yes -Correct Procedure Yes -Procedure Performed Yes -Type of Procedure Debridement -Clinical Debridement Subcutaneous -Post Debridement Size (cm) - Length 0.8 -Post Debridement Size (cm) - Width 0.9 -Post Debridement Size (cm) - Depth 0.8 -Total Square Cm 0.72 -Wound/Ulcer Outcome Not Healed -Ulcer Cleansing Rinsed/ Irrigated with Saline -Foul Odor after Cleansing No -Bioengineered Tissue Yes -Type of bioengineered Tissue [place] -Expiration Date 01/24/22 -Product Lot Number [id number] -Percent Used 100 -Saline Lot Number [id number] -Bleeding Controlled with Pressure -Offloading No Pain Scale: 0-10 Numeric Is Patient Pain Free? Yes Wound debrided: left distal lower leg Laterality: Left Type of Debridement: Excisional debridement Anesthesia Used: 4% Lidocaine Solution Depth: Down to and including healthy tissue, in the subcutaneous layer Percentage of wound debrided: 100 Instrument Used: 3mm curette Tissue Removed: Subcutaneous tissue and slough Severity: Limited To Skin Breakdown Amount of bleeding with debridement: Mild Bleeding Controlled with: Pressure Patient tolerated procedure well - Additional Wound Wound debrided: Left proximal lower leg Laterality: Left Type of Debridement: Excisional debridement Anesthesia Used: 4% Lidocaine Solution Depth: Down to and including healthy tissue, in the subcutaneous layer Percentage of wound debrided: 100 Instrument Used: 3mm curette Severity: Limited To Skin Breakdown Amount of bleeding with debridement: Mild Bleeding Controlled with: Pressure, Compression and gauze Patient tolerated procedure: Patient tolerated procedure well Assessment/Plan Active Problems (Last Updated 12/16/17 @ 17:12 by Sari Hawk DO) Traumatic open wound of left lower leg (Acute) Assessment: 1. Nonhealing ulcer left lower anterior leg. 2. Brain tumor - receiving chemotherapy. 3. s/p surgical preparation left lower posterior leg in Achilles area with excisional debridement nonhealing ulcer and reconstruction with STSG from left flank (5 cm2) and surgical preparation left lower anterior leg with excisional debridement nonhealing ulcer and reconstruction with STSG from left flank (15.75 cm2) and placement of CHELSEA NPWT device. 4. Mild compromise skin grafts left leg. 5. Traumatic skin wound to proximal left lower leg. Plan: The left lower anterior leg ulcer is slowing down its healing. She completed HBOT in April 2018. Continue the Tubigrip for compression. A wound culture from 05/15/18 showed Staphylococcus hominis hominis and was placed on Dicloxacillin. The first Thera-skin came off when her wound veil was removed. Thera-skin skin substitute graft #4 was placed today without difficulty. I used 100% of the graft 1/2 on the distal left lower leg and the remainder on the proximal lower leg wound. There has been a decrease in the size of ulcer If Thera-skin not successful, will need additional operative debridement with further skin grafting. Her Prealbumin from 01/25/18 was 30.8. Encourage nutritional supplementation with protein to help the healing process. Followup one week with Dr. Moya for another placement of Thera-skin skin substitute graft. Code Visit [id number]: [id number] Skin sub graft trnk/arm/leg
--- NOTE | 2018-06-19 11:38 | PN.PCM_ITS ---
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 History of Wound: Surgery 01/24/18 - 1. Surgical preparation left lower posterior leg in Achilles area with excisional debridement nonhealing ulcer and reconstruction with STSG from left flank (5 cm2). 2. Surgical preparation left lower anterior leg with excisional debridement nonhealing ulcer and reconstruction with STSG from left flank (15.75 cm2) and placement of CHELSEA NPWT device. Wound care - Silver. Operative culture - MRSE in both wounds. She was treated with Vancomycin and has completed the treatment. Prealbumin from 01/25/18 was 30.8. Encourage nutritional supplementation with protein to help the healing process. Today the patient denies fever. Her appetite is pretty good. She underwent HBO treatments for her compromised skin grafts and have finished the treatments without problem. She had a wound culture done on 05/15/18. It showed Staphylococcus hominis hominis and she was placed on Dicloxacillin. Started to use Theraskin on left distal leg skin graft opening. 06/19/18 has a new wound on proximal portion of left lower leg. She banged it on a cupboard and has had it for 2 weeks with no improvement in the open area. Progress of Wound: Slowly healing. - Physical Exam Vital Signs Temp Pulse Resp BP 97.3 F L 73 20 H 99/73 06/19/18 08:26 06/19/18 08:26 06/19/18 08:26 06/19/18 08:26 General: Alert, Cooperative HEENT: Atraumatic Extremities: No edema, Capillary Refill Less than 3 Seconds Skin: Ulcer/ Wound - Left distal lower leg with opening on distal aspect of skin graft. New wound on proximal portion of left lower anterior leg that is clean and pink. Wound Measurements and Assessment WC - Nurse 1 - General Ulcer Measurement Start: 06/19/18 08:26 Freq: Status: Active Protocol: Activity Type Activity Date Activity User E-Sign Co-Sign Detail Recorded Client Recorded Date Recorded By Document 06/19/18 08:26 DL [id number] 06/19/18 08:34 DL 06/19/18 08:26 Wound Center Nurse 1 [Ulcer Assessment] #23 L [place] -Current Size (cm) - Length 2.3 -Current Size (cm) - Width 1.1 -Current Size (cm) - Depth 0.1 -Total Square Cm 2.53 -Photo Taken Yes -Exudate Amt Small (1-33%) -Exudate Type Yellow/Green -Wound Margin Distinct, Outline Attached -Granulation Amt Medium (34-66%) -Granulation Quality Red -Necrosis Amt Medium (34-66%) -Necrotic Tissue Type Adherent Slough -Structure Exposed N/A -Texture (Riddhi-wound Skin Appearance) Scarring -Moisture (Riddhi-wound Skin Appearance Dry/Scaly ) -Color (Riddhi-wound Skin Appearance) No Abnormality -Temperature (Riddhi-wound Skin No Abnormality Appearance) (Pt Warm) -Ulcer Cleansing Wound Cleanser -Foul Odor after Cleansing No -Anesthetic Used 4% Lidocaine Solution #22 L [place] -Current Size (cm) - Length 0.6 -Current Size (cm) - Width 0.7 -Current Size (cm) - Depth 0.8 -Total Square Cm 0.42 -Photo Taken No -Exudate Amt Small (1-33%) -Exudate Type Serous -Wound Margin Distinct, Outline Attached -Granulation Amt Large (67-100%) -Granulation Quality [place] -Necrosis Amt None Present (0 %) -Structure Exposed N/A -Texture (Riddhi-wound Skin Appearance) Scarring -Moisture (Riddhi-wound Skin Appearance No Abnormality ) -Color (Riddhi-wound Skin Appearance) Rubor -Temperature (Riddhi-wound Skin No Abnormality Appearance) (Pt Warm) -Ulcer Cleansing Wound Cleanser -Foul Odor after Cleansing No -Anesthetic Used 4% Lidocaine Solution [Edema Assessment] -Left Calf (cm) 33.5 -Left Ankle (cm) 21.8 WC - Nurse 2 - General Ulcer CM Notes Start: 06/19/18 08:26 Freq: Status: Active Protocol: Activity Type Activity Date Activity User E-Sign Co-Sign Detail Recorded Client Recorded Date Recorded By Document 06/19/18 09:02 RANDY [id number] 06/19/18 09:04 RANDY 06/19/18 09:02 Wound Center Nurse 2 [Procedure/Treatment] #23 L [place] -Time 09:02 -Correct Patient Yes -Correct Side, Site, Position Yes -Correct Procedure Yes -Procedure Performed Yes -Type of Procedure Debridement -Clinical Debridement Subcutaneous -Post Debridement Size (cm) - Length 2.5 -Post Debridement Size (cm) - Width 1.5 -Post Debridement Size (cm) - Depth 0.1 -Total Square Cm 3.75 -Wound/Ulcer Outcome Not Healed -Ulcer Cleansing Rinsed/ Irrigated with Saline -Foul Odor after Cleansing No -Bioengineered Tissue Yes -Type of bioengineered Tissue [place] -Expiration Date 01/24/22 -Product Lot Number [id number] -Percent Used 100 -Saline Lot Number [id number] -Bleeding Controlled with Pressure -Offloading No #22 L [place] -Time 09:03 -Correct Patient Yes -Correct Side, Site, Position Yes -Correct Procedure Yes -Procedure Performed Yes -Type of Procedure Debridement -Clinical Debridement Subcutaneous -Post Debridement Size (cm) - Length 0.8 -Post Debridement Size (cm) - Width 0.9 -Post Debridement Size (cm) - Depth 0.8 -Total Square Cm 0.72 -Wound/Ulcer Outcome Not Healed -Ulcer Cleansing Rinsed/ Irrigated with Saline -Foul Odor after Cleansing No -Bioengineered Tissue Yes -Type of bioengineered Tissue [place] -Expiration Date 01/24/22 -Product Lot Number [id number] -Percent Used 100 -Saline Lot Number [id number] -Bleeding Controlled with Pressure -Offloading No [See Physician Procedure note for Specifics] Pain Scale: 0-10 Numeric [Pain] -Is Patient Pain Free? Yes Musculoskeletal: No Tenderness to Palpation of Joints or Extremities, No Muscle Wasting Neurological: Neuro grossly intact Psych/Mental Status: Normal Affect, Appropriate Debridement Note Post-Debridement Measurements/Treatment WC - Nurse 2 - General Ulcer CM Notes Start: 06/19/18 08:26 Freq: Status: Active Protocol: Activity Type Activity Date Activity User E-Sign Co-Sign Detail Recorded Client Recorded Date Recorded By Document 06/19/18 09:02 RANDY [id number] 06/19/18 09:04 RANDY 06/19/18 09:02 Wound Center Nurse 2 #23 L [place] -Time 09:02 -Correct Patient Yes -Correct Side, Site, Position Yes -Correct Procedure Yes -Procedure Performed Yes -Type of Procedure Debridement -Clinical Debridement Subcutaneous -Post Debridement Size (cm) - Length 2.5 -Post Debridement Size (cm) - Width 1.5 -Post Debridement Size (cm) - Depth 0.1 -Total Square Cm 3.75 -Wound/Ulcer Outcome Not Healed -Ulcer Cleansing Rinsed/ Irrigated with Saline -Foul Odor after Cleansing No -Bioengineered Tissue Yes -Type of bioengineered Tissue [place] -Expiration Date 01/24/22 -Product Lot Number [id number] -Percent Used 100 -Saline Lot Number [id number] -Bleeding Controlled with Pressure -Offloading No #22 L [place] -Time 09:03 -Correct Patient Yes -Correct Side, Site, Position Yes -Correct Procedure Yes -Procedure Performed Yes -Type of Procedure Debridement -Clinical Debridement Subcutaneous -Post Debridement Size (cm) - Length 0.8 -Post Debridement Size (cm) - Width 0.9 -Post Debridement Size (cm) - Depth 0.8 -Total Square Cm 0.72 -Wound/Ulcer Outcome Not Healed -Ulcer Cleansing Rinsed/ Irrigated with Saline -Foul Odor after Cleansing No -Bioengineered Tissue Yes -Type of bioengineered Tissue [place] -Expiration Date 01/24/22 -Product Lot Number [id number] -Percent Used 100 -Saline Lot Number [id number] -Bleeding Controlled with Pressure -Offloading No Pain Scale: 0-10 Numeric Is Patient Pain Free? Yes Wound debrided: left distal lower leg Laterality: Left Type of Debridement: Excisional debridement Anesthesia Used: 4% Lidocaine Solution Depth: Down to and including healthy tissue, in the subcutaneous layer Percentage of wound debrided: 100 Instrument Used: 3mm curette Tissue Removed: Subcutaneous tissue and slough Severity: Limited To Skin Breakdown Amount of bleeding with debridement: Mild Bleeding Controlled with: Pressure Patient tolerated procedure well - Additional Wound Wound debrided: Left proximal lower leg Laterality: Left Type of Debridement: Excisional debridement Anesthesia Used: 4% Lidocaine Solution Depth: Down to and including healthy tissue, in the subcutaneous layer Percentage of wound debrided: 100 Instrument Used: 3mm curette Severity: Limited To Skin Breakdown Amount of bleeding with debridement: Mild Bleeding Controlled with: Pressure, Compression and gauze Patient tolerated procedure: Patient tolerated procedure well Assessment/Plan Active Problems (Last Updated 12/16/17 @ 17:12 by Sari Hawk DO) Traumatic open wound of left lower leg (Acute) Assessment: 1. Nonhealing ulcer left lower anterior leg. 2. Brain tumor - receiving chemotherapy. 3. s/p surgical preparation left lower posterior leg in Achilles area with excisional debridement nonhealing ulcer and reconstruction with STSG from left flank (5 cm2) and surgical preparation left lower anterior leg with excisional debridement nonhealing ulcer and reconstruction with STSG from left flank (15.75 cm2) and placement of CHELSEA NPWT device. 4. Mild compromise skin grafts left leg. 5. Traumatic skin wound to proximal left lower leg. Plan: The left lower anterior leg ulcer is slowing down its healing. She completed HBOT in April 2018. Continue the Tubigrip for compression. A wound culture from 05/15/18 showed Staphylococcus hominis hominis and was placed on Dicloxacillin. The first Thera-skin came off when her wound veil was removed. Thera-skin skin substitute graft #4 was placed today without difficulty. I used 100% of the graft 1/2 on the distal left lower leg and the remainder on the proximal lower leg wound. There has been a decrease in the size of ulcer If Thera-skin not successful, will need additional operative debridement with further skin grafting. Her Prealbumin from 01/25/18 was 30.8. Encourage nutritional supplementation with protein to help the healing process. Followup one week with Dr. Moya for another placement of Thera-skin skin substitute graft. Code Visit 150xxx-[id number]: [id number] Skin sub graft trnk/arm/leg
[2018-06-26 08:23] VITALS: BP 106/65; PULSE 71; RESP 18; TEMP 36.6
--- NOTE | 2018-06-26 23:38 | PN.PCM_ITS ---
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 History of Wound: Surgery 01/24/18 - 1. Surgical preparation left lower posterior leg in Achilles area with excisional debridement nonhealing ulcer and reconstruction with STSG from left flank (5 cm2). 2. Surgical preparation left lower anterior leg with excisional debridement nonhealing ulcer and reconstruction with STSG from left flank (15.75 cm2) and placement of CHELSEA NPWT device. Wound care - Thera-Skin #4. Operative culture - MRSE in both wounds. She was treated with Vancomycin and has completed the treatment. Prealbumin from 01/25/18 was 30.8. Encourage nutritional supplementation with protein to help the healing process. Today the patient denies fever. Her appetite is pretty good. She underwent HBO treatments for her compromised skin grafts and have finished the treatments without problem. She had a wound culture done on 05/15/18. It showed Staphylococcus hominis hominis and she was placed on Dicloxacillin and has finished them. Thera-skin skin substitute graft placement has been started. She has had four applications thus far. Progress of Wound: Slowly healing. - Physical Exam Vital Signs Temp Pulse Resp BP 97.8 F 71 18 106/65 06/26/18 08:23 06/26/18 08:23 06/26/18 08:23 06/26/18 08:23 Wound Measurements and Assessment WC - Nurse 1 - General Ulcer Measurement Start: 06/19/18 08:26 Freq: Status: Active Protocol: Activity Type Activity Date Activity User E-Sign Co-Sign Detail Recorded Client Recorded Date Recorded By Document 06/26/18 08:23 [id number] 06/26/18 08:26 06/26/18 08:23 Wound Center Nurse 1 [Ulcer Assessment] #23 L [place] -Combined with other wound No -Current Size (cm) - Length 0.1 -Current Size (cm) - Width 0.1 -Current Size (cm) - Depth 0.1 -Total Square Cm 0.01 -Photo Taken No -Epithelialization Large 67-100% -Tunneling No -Undermining/Tunneling No -Circular Undermining No -Exudate Amt None Present (0 %) -Wound Margin Flat & Intact -Granulation Amt Medium (34-66%) -Granulation Quality [place] -Slough/Fibrin Yes -Necrosis Amt Medium (34-66%) -Necrotic Tissue Type Adherent Slough -Structure Exposed N/A -Texture (Riddhi-wound Skin Appearance) Assessed Localized Edema Scarring -Moisture (Riddhi-wound Skin Appearance Assessed ) Dry/Scaly -Color (Riddhi-wound Skin Appearance) Assessed -Temperature (Riddhi-wound Skin No Abnormality Appearance) (Pt Warm) -Tenderness on Palpation (Riddhi-wound No Skin Appearance) -Ulcer Cleansing Wound Cleanser -Foul Odor after Cleansing No -Anesthetic Used 5% Lidocaine Gel #22 L [place] -Combined with other wound No -Current Size (cm) - Length 0.2 -Current Size (cm) - Width 0.3 -Current Size (cm) - Depth 0.4 -Total Square Cm 0.06 -Photo Taken No -Epithelialization Medium 34-66% -Tunneling No -Undermining/Tunneling No -Circular Undermining No -Exudate Amt None Present (0 %) -Wound Margin Indistinct, Non -Visible -Granulation Amt Small (1-33%) -Granulation Quality Pale -Slough/Fibrin Yes -Necrosis Amt Medium (34-66%) -Necrotic Tissue Type Adherent Slough -Structure Exposed N/A -Texture (Riddhi-wound Skin Appearance) Assessed Localized Edema Scarring -Moisture (Riddhi-wound Skin Appearance Assessed ) Dry/Scaly -Color (Riddhi-wound Skin Appearance) Assessed -Temperature (Riddhi-wound Skin No Abnormality Appearance) (Pt Warm) -Tenderness on Palpation (Riddhi-wound No Skin Appearance) -Ulcer Cleansing Wound Cleanser -Foul Odor after Cleansing No -Anesthetic Used 5% Lidocaine Gel [Edema Assessment] -Lower Limb Edema Present Yes -Left Calf (cm) 34.3 -Left Ankle (cm) 21.6 WC - Nurse 2 - General Ulcer CM Notes Start: 06/19/18 08:26 Freq: Status: Active Protocol: Activity Type Activity Date Activity User E-Sign Co-Sign Detail Recorded Client Recorded Date Recorded By Document 06/26/18 09:08 RANDY [id number] 06/26/18 09:10 RANDY 06/26/18 09:08 Wound Center Nurse 2 [Procedure/Treatment] #23 L [place] -Correct Patient No -Correct Side, Site, Position No -Correct Procedure No -Procedure Performed No -Post Debridement Size (cm) - Length 0.1 -Post Debridement Size (cm) - Width 0.1 -Post Debridement Size (cm) - Depth 0.1 -Total Square Cm 0.01 -Wound/Ulcer Outcome Not Healed -Ulcer Cleansing Rinsed/ Irrigated with Saline -Foul Odor after Cleansing No -Bioengineered Tissue No -Bleeding Controlled with Pressure -Offloading No -Treatment Response Procedure Tolerated Well #22 L [place] -Time 09:09 -Correct Patient Yes -Correct Side, Site, Position Yes -Correct Procedure Yes -Procedure Performed Yes -Type of Procedure Debridement -Clinical Debridement Subcutaneous -Post Debridement Size (cm) - Length 0.3 -Post Debridement Size (cm) - Width 0.3 -Post Debridement Size (cm) - Depth 0.4 -Total Square Cm 0.09 -Wound/Ulcer Outcome Not Healed -Ulcer Cleansing Rinsed/ Irrigated with Saline -Foul Odor after Cleansing No -Bioengineered Tissue Yes -Type of bioengineered Tissue [place] -Expiration Date 01/03/22 -Product Lot Number [id number] -Percent Used 30 -Saline Lot Number [id number] -Bleeding Controlled with Pressure -Offloading No -Treatment Response Procedure Tolerated Well [See Physician Procedure note for Specifics] Pain Scale: 0-10 Numeric [Pain] -Is Patient Pain Free? Yes Debridement Note Post-Debridement Measurements/Treatment WC - Nurse 2 - General Ulcer CM Notes Start: 06/19/18 08:26 Freq: Status: Active Protocol: Activity Type Activity Date Activity User E-Sign Co-Sign Detail Recorded Client Recorded Date Recorded By Document 06/19/18 09:02 JF [id number] 06/19/18 09:04 Document 06/26/18 09:08 [id number] [id number] 06/26/18 09:10 06/19/18 06/26/18 09:02 09:08 Wound Center Nurse 2 #23 L [place] -Time 09:02 -Correct Patient Yes No -Correct Side, Site, Position Yes No -Correct Procedure Yes No -Procedure Performed Yes No -Type of Procedure Debridement -Clinical Debridement Subcutaneous -Post Debridement Size (cm) - Length 2.5 0.1 -Post Debridement Size (cm) - Width 1.5 0.1 -Post Debridement Size (cm) - Depth 0.1 0.1 -Total Square Cm 3.75 0.01 -Wound/Ulcer Outcome Not Healed Not Healed -Ulcer Cleansing Rinsed/ Rinsed/ Irrigated with Irrigated with Saline Saline -Foul Odor after Cleansing No No -Bioengineered Tissue Yes No -Type of bioengineered Tissue [place] -Expiration Date 01/24/22 -Product Lot Number [id number] -Percent Used 100 -Saline Lot Number [id number] -Bleeding Controlled with Pressure Pressure -Offloading No No -Treatment Response Procedure Tolerated Well #22 L [place] -Time 09:03 09:09 -Correct Patient Yes Yes -Correct Side, Site, Position Yes Yes -Correct Procedure Yes Yes -Procedure Performed Yes Yes -Type of Procedure Debridement Debridement -Clinical Debridement Subcutaneous Subcutaneous -Post Debridement Size (cm) - Length 0.8 0.3 -Post Debridement Size (cm) - Width 0.9 0.3 -Post Debridement Size (cm) - Depth 0.8 0.4 -Total Square Cm 0.72 0.09 -Wound/Ulcer Outcome Not Healed Not Healed -Ulcer Cleansing Rinsed/ Rinsed/ Irrigated with Irrigated with Saline Saline -Foul Odor after Cleansing No No -Bioengineered Tissue Yes Yes -Type of bioengineered Tissue [place] -Expiration Date 01/24/22 01/03/22 -Product Lot Number [id number] -Percent Used 100 30 -Saline Lot Number [id number] -Bleeding Controlled with Pressure Pressure -Offloading No No -Treatment Response Procedure Tolerated Well Pain Scale: 0-10 Numeric Is Patient Pain Free? Yes Yes Wound debrided: #22 Left lower anterior leg. Laterality: Left Wound Grade/Stage: 2. Type of Debridement: Excisional debridement Anesthesia Used: 4% Lidocaine Solution Depth: Down to and including healthy tissue, in the subcutaneous layer Percentage of wound debrided: 100 Instrument Used: 3mm curette Tissue Removed: subcutaneous tissue. Severity: Fat Layer Exposed Amount of bleeding with debridement: Mild Bleeding Controlled with: Pressure Patient tolerated procedure well - Thera-skin #5 was applied today without difficulty. Product Lot Number - [id number]. Saline Lot Number - [id number]. Percent used - 30%. Expiration - January 03, 2022. Assessment/Plan Assessment: 1. Nonhealing ulcer left lower anterior leg. 2. Brain tumor - receiving chemotherapy. 3. s/p surgical preparation left lower posterior leg in Achilles area with excisional debridement nonhealing ulcer and reconstruction with STSG from left flank (5 cm2) and surgical preparation left lower anterior leg with excisional debridement nonhealing ulcer and reconstruction with STSG from left flank (15.75 cm2) and placement of CHELSEA NPWT device. 4. Mild compromise skin grafts left leg. Plan: The left lower anterior leg ulcer had slowed down its healing. She has completed HBOT treatments. Continue the Tubigrip for compression. A wound culture from 05/15/18 showed Staphylococcus hominis hominis and was placed on Dicloxacillin and has finished them. Thera-skin skin substitute graft placement has been started. Application #5 was done today. I used 30% of the graft. If Thera-skin not successful, will need additional operative debridement with further skin grafting. Her Prealbumin from 01/25/18 was 30.8. Encourage nutritional supplementation with protein to help the healing process. Followup one week for another placement of Thera-skin skin substitute graft.
[2018-07-03 08:54] VITALS: BP 116/80; PULSE 73; RESP 18; TEMP 36.3
--- NOTE | 2018-07-03 19:09 | PCM.WC.PN ---
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 History of Wound: Surgery 01/24/18 - 1. Surgical preparation left lower posterior leg in Achilles area with excisional debridement nonhealing ulcer and reconstruction with STSG from left flank (5 cm2). 2. Surgical preparation left lower anterior leg with excisional debridement nonhealing ulcer and reconstruction with STSG from left flank (15.75 cm2) and placement of CHELSEA NPWT device. Wound care - Thera-Skin #5. Operative culture - MRSE in both wounds. She was treated with Vancomycin and has completed the treatment. Prealbumin from 01/25/18 was 30.8. Encourage nutritional supplementation with protein to help the healing process. Today the patient denies fever. Her appetite is pretty good. She underwent HBO treatments for her compromised skin grafts and have finished the treatments without problem. She had a wound culture done on 05/15/18. It showed Staphylococcus hominis hominis and she was placed on Dicloxacillin and has finished them. Thera-skin skin substitute graft placement has been started. She has had 5 applications thus far. Progress of Wound: Slowly healing. - Physical Exam Vital Signs Temp Pulse Resp BP 97.4 F L 73 18 116/80 07/03/18 08:54 07/03/18 08:54 07/03/18 08:54 07/03/18 08:54 Wound Measurements and Assessment WC - Nurse 1 - General Ulcer Measurement Start: 06/19/18 08:26 Freq: Status: Active Protocol: Activity Type Activity Date Activity User E-Sign Co-Sign Detail Recorded Client Recorded Date Recorded By Document 07/03/18 08:54 [id number] 07/03/18 09:03 DL 07/03/18 08:54 Wound Center Nurse 1 [Ulcer Assessment] #23 L [place] -Current Size (cm) - Length 0 -Current Size (cm) - Width 0 -Current Size (cm) - Depth 0 -Total Square Cm 0 -Photo Taken Yes -Exudate Amt None Present (0 %) -Wound Margin Flat & Intact -Granulation Amt Large (67-100%) -Granulation Quality [place] -Necrosis Amt None Present (0 %) -Necrotic Tissue Type Adherent Slough -Structure Exposed N/A -Texture (Riddhi-wound Skin Appearance) Scarring -Moisture (Riddhi-wound Skin Appearance Dry/Scaly ) -Color (Riddhi-wound Skin Appearance) No Abnormality Hemosiderin Staining -Temperature (Riddhi-wound Skin No Abnormality Appearance) (Pt Warm) -Ulcer Cleansing Wound Cleanser -Foul Odor after Cleansing No #22 L [place] -Current Size (cm) - Length 0.1 -Current Size (cm) - Width 0.1 -Current Size (cm) - Depth 0.1 -Total Square Cm 0.01 -Photo Taken No -Exudate Amt None Present (0 %) -Wound Margin Thickened -Granulation Amt Large (67-100%) -Granulation Quality [place] -Necrosis Amt Small (1-33%) -Necrotic Tissue Type Adherent Slough -Structure Exposed N/A -Texture (Riddhi-wound Skin Appearance) Scarring -Moisture (Riddhi-wound Skin Appearance Dry/Scaly ) -Color (Riddhi-wound Skin Appearance) Hemosiderin Staining -Temperature (Riddhi-wound Skin No Abnormality Appearance) (Pt Warm) -Tenderness on Palpation (Riddhi-wound No Skin Appearance) -Ulcer Cleansing Wound Cleanser -Foul Odor after Cleansing No -Anesthetic Used 4% Lidocaine Solution [Edema Assessment] -Left Calf (cm) 32 -Left Ankle (cm) 21 WC - Nurse 2 - General Ulcer CM Notes Start: 06/19/18 08:26 Freq: Status: Active Protocol: Activity Type Activity Date Activity User E-Sign Co-Sign Detail Recorded Client Recorded Date Recorded By Document 07/03/18 09:19 RANDY [id number] 18 09:27 RANDY 07/03/18 09:19 Wound Center Nurse 2 [Procedure/Treatment] #23 L [place] -Time 09:24 -Correct Patient No -Correct Side, Site, Position No -Correct Procedure No -Procedure Performed No -Post Debridement Size (cm) - Length 0 -Post Debridement Size (cm) - Width 0 -Post Debridement Size (cm) - Depth 0 -Total Square Cm 0 -Wound/Ulcer Outcome Healed- Epithelialized -Ulcer Cleansing Rinsed/ Irrigated with Saline -Foul Odor after Cleansing No -Bioengineered Tissue No -Bleeding Controlled with Pressure -Offloading No -Treatment Response Procedure Tolerated Well #22 L [place] -Time 09:26 -Correct Patient Yes -Correct Side, Site, Position Yes -Correct Procedure Yes -Procedure Performed Yes -Type of Procedure Debridement -Clinical Debridement Subcutaneous -Post Debridement Size (cm) - Length 0.6 -Post Debridement Size (cm) - Width 0.7 -Post Debridement Size (cm) - Depth 0.2 -Total Square Cm 0.42 -Wound/Ulcer Outcome Not Healed -Ulcer Cleansing Rinsed/ Irrigated with Saline -Foul Odor after Cleansing No -Bioengineered Tissue No -Bleeding Controlled with Pressure -Offloading No -Treatment Response Procedure Tolerated Well [See Physician Procedure note for Specifics] Pain Scale: 0-10 Numeric [Pain] -Is Patient Pain Free? Yes Debridement Note Post-Debridement Measurements/Treatment WC - Nurse 2 - General Ulcer CM Notes Start: 06/19/18 08:26 Freq: Status: Active Protocol: Activity Type Activity Date Activity User E-Sign Co-Sign Detail Recorded Client Recorded Date Recorded By Document 06/19/18 09:02 [id number] 06/19/18 09:04 Document 06/26/18 09:08 [id number] 06/26/18 09:10 Document 07/03/18 09:19 [id number] 07/03/18 09:27 06/19/18 06/26/18 07/03/18 09:02 09:08 09:19 Wound Center Nurse 2 #23 L [place] -Time 09:02 09:24 -Correct Patient Yes No No -Correct Side, Site, Position Yes No No -Correct Procedure Yes No No -Procedure Performed Yes No No -Type of Procedure Debridement -Clinical Debridement Subcutaneous -Post Debridement Size (cm) - Length 2.5 0.1 0 -Post Debridement Size (cm) - Width 1.5 0.1 0 -Post Debridement Size (cm) - Depth 0.1 0.1 0 -Total Square Cm 3.75 0.01 0 -Wound/Ulcer Outcome Not Healed Not Healed Healed- Epithelialized -Ulcer Cleansing Rinsed/ Rinsed/ Rinsed/ Irrigated with Irrigated with Irrigated with Saline Saline Saline -Foul Odor after Cleansing No No No -Bioengineered Tissue Yes No No -Type of bioengineered Tissue [place] -Expiration Date 01/24/22 -Product Lot Number [id number] -Percent Used 100 -Saline Lot Number [id number] -Bleeding Controlled with Pressure Pressure Pressure -Offloading No No No -Treatment Response Procedure Procedure Tolerated Well Tolerated Well #22 L [place] -Time 09:03 09:09 09:26 -Correct Patient Yes Yes Yes -Correct Side, Site, Position Yes Yes Yes -Correct Procedure Yes Yes Yes -Procedure Performed Yes Yes Yes -Type of Procedure Debridement Debridement Debridement -Clinical Debridement Subcutaneous Subcutaneous Subcutaneous -Post Debridement Size (cm) - Length 0.8 0.3 0.6 -Post Debridement Size (cm) - Width 0.9 0.3 0.7 -Post Debridement Size (cm) - Depth 0.8 0.4 0.2 -Total Square Cm 0.72 0.09 0.42 -Wound/Ulcer Outcome Not Healed Not Healed Not Healed -Ulcer Cleansing Rinsed/ Rinsed/ Rinsed/ Irrigated with Irrigated with Irrigated with Saline Saline Saline -Foul Odor after Cleansing No No No -Bioengineered Tissue Yes Yes No -Type of bioengineered Tissue [place] -Expiration Date 01/24/22 01/03/22 -Product Lot Number [id number] -Percent Used 100 30 -Saline Lot Number [id number] -Bleeding Controlled with Pressure Pressure Pressure -Offloading No No No -Treatment Response Procedure Procedure Tolerated Well Tolerated Well Pain Scale: 0-10 Numeric Is Patient Pain Free? Yes Yes Yes Wound debrided: #22 Left lower anterior leg. Laterality: Left Wound Grade/Stage: 2. Type of Debridement: Excisional debridement Anesthesia Used: 4% Lidocaine Solution Depth: Down to and including healthy tissue, in the subcutaneous layer Percentage of wound debrided: 100 Instrument Used: 3mm curette Tissue Removed: subcutaneous tissue. Severity: Fat Layer Exposed Amount of bleeding with debridement: Mild Bleeding Controlled with: Pressure Patient tolerated procedure well Assessment/Plan Assessment: 1. Nonhealing ulcer left lower anterior leg. 2. Brain tumor - receiving chemotherapy. 3. s/p surgical preparation left lower posterior leg in Achilles area with excisional debridement nonhealing ulcer and reconstruction with STSG from left flank (5 cm2) and surgical preparation left lower anterior leg with excisional debridement nonhealing ulcer and reconstruction with STSG from left flank (15.75 cm2) and placement of CHELSEA NPWT device. 4. Mild compromise skin grafts left leg Plan: The left lower anterior leg ulcer had slowed down its healing. She has completed HBOT treatments. Continue the Tubigrip for compression. A wound culture from 05/15/18 showed Staphylococcus hominis hominis and was placed on Dicloxacillin and has finished them. Thera-skin skin substitute graft placement has been started. She has had 5 applications thus far. Thera-skin was not available today so no graft was applied. Will apply next visit. If Thera-skin not successful, will need additional operative debridement with further skin grafting. Her Prealbumin from 01/25/18 was 30.8. Encourage nutritional supplementation with protein to help the healing process. Followup 2 weeks with Wanda Nurse Practitioner, for another placement of Thera-skin skin substitute graft.
[2018-07-17 10:31] VITALS: BP 115/70; PULSE 71; RESP 16; TEMP 35.9
--- NOTE | 2018-07-20 10:22 | PCM.WC.PN ---
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 Status: Chronic Code(s): L97.925 - Non-pressure chronic ulcer of unspecified part of left lower leg with muscle involvement without evidence of necrosis (2) Complication of skin graft Status: Chronic Code(s): T86.829 - Unspecified complication of skin graft (allograft) (autograft) (3) Traumatic open wound of left lower leg Status: Resolved Code(s): S81.802A - Unspecified open wound, left lower leg, initial encounter (4) Traumatic open wound of right lower leg Status: Acute Code(s): S81.801A - Unspecified open wound, right lower leg, initial encounter Type of Wound Date of Service: 07/17/18 Chief Complaint: Nonhealing skin graft ulcer left lower anterior leg. History of Wound: Surgery 01/24/18 - 1. Surgical preparation left lower posterior leg in Achilles area with excisional debridement nonhealing ulcer and reconstruction with STSG from left flank (5 cm2). 2. Surgical preparation left lower anterior leg with excisional debridement nonhealing ulcer and reconstruction with STSG from left flank (15.75 cm2) and placement of CHELSEA NPWT device. Wound care - Thera-Skin #6. Operative culture - MRSE in both wounds. She was treated with Vancomycin and has completed the treatment. Prealbumin from 01/25/18 was 30.8. Encourage nutritional supplementation with protein to help the healing process. Today the patient denies fever. Her appetite is pretty good. She underwent HBO treatments for her compromised skin grafts and have finished the treatments without problem. She had a wound culture done on 05/15/18. It showed Staphylococcus hominis hominis and she was placed on Dicloxacillin and has finished them. Thera-skin skin substitute graft placement has been started. She has had 6 applications thus far. She has a new wound on right lateral lower leg that she obtained a week ago when her dog scratched her. It is opened but not draining, no redness. Progress of Wound: Slowly healing. - Physical Exam Vital Signs Temp Pulse Resp BP 96.6 F L 71 16 115/70 07/17/18 10:31 07/17/18 10:31 07/17/18 10:31 07/17/18 10:31 General: Alert, Cooperative HEENT: Atraumatic Oral: Moist Mucosa Lungs: Normal air movement Cardiovascular: Regular rate Extremities: No edema, Capillary Refill Less than 3 Seconds, Peripheral Pulses Normal Skin: Ulcer/ Wound - Left lower leg at skin graft site. New wound right lateral lower leg. Wound Measurements and Assessment WC - Nurse 1 - General Ulcer Measurement Start: 06/19/18 08:26 Freq: Status: Active Protocol: Activity Type Activity Date Activity User E-Sign Co-Sign Detail Recorded Client Recorded Date Recorded By Document 07/17/18 10:31 [id number] 07/17/18 10:37 07/17/18 10:31 Wound Center Nurse 1 [Ulcer Assessment] #23 L [place] -Combined with other wound No -Current Size (cm) - Length 0.1 -Current Size (cm) - Width 0.1 -Current Size (cm) - Depth 0.1 -Total Square Cm 0.01 -Date of Last Picture (Recall this 07/17/18 field) -Photo Taken Yes -Epithelialization Large 67-100% #22 L [place] -Combined with other wound No -Current Size (cm) - Length 0.2 -Current Size (cm) - Width 0.3 -Current Size (cm) - Depth 0.2 -Total Square Cm 0.06 -Date of Last Picture (Recall this 07/17/18 field) -Photo Taken Yes -Epithelialization Small 1-33% -Tunneling No -Undermining/Tunneling No -Circular Undermining No -Exudate Amt None Present (0 %) -Wound Margin Distinct, Outline Attached -Granulation Amt Large (67-100%) -Granulation Quality N/A Red -Slough/Fibrin Yes -Necrosis Amt Large (67-100%) -Necrotic Tissue Type Adherent Slough -Structure Exposed None/Limited to Skin Breakdown -Texture (Riddhi-wound Skin Appearance) Scarring -Moisture (Riddhi-wound Skin Appearance No Abnormality ) Assessed -Color (Riddhi-wound Skin Appearance) Assessed -Temperature (Riddhi-wound Skin No Abnormality Appearance) (Pt Warm) -Tenderness on Palpation (Riddhi-wound No Skin Appearance) -Ulcer Cleansing Rinsed/ Irrigated with Saline -Foul Odor after Cleansing No -Anesthetic Used 5% Lidocaine Gel [Edema Assessment] -Lower Limb Edema Present No -Left Calf (cm) 35 -Left Ankle (cm) 22 WC - Nurse 2 - General Ulcer CM Notes Start: 06/19/18 08:26 Freq: Status: Active Protocol: Activity Type Activity Date Activity User E-Sign Co-Sign Detail Recorded Client Recorded Date Recorded By Document 07/17/18 11:07 RANDY [id number] 07/17/18 11:10 RANDY 07/17/18 11:07 Wound Center Nurse 2 [Procedure/Treatment] 24-right lateral leg -Time 11:09 -Correct Patient Yes -Correct Side, Site, Position Yes -Correct Procedure Yes -Procedure Performed Yes -Type of Procedure Debridement -Clinical Debridement Subcutaneous -Post Debridement Size (cm) - Length 1 -Post Debridement Size (cm) - Width 0.8 -Post Debridement Size (cm) - Depth 0.1 -Total Square Cm 0.8 -Wound/Ulcer Outcome Not Healed -Ulcer Cleansing Rinsed/ Irrigated with Saline -Foul Odor after Cleansing No -Bioengineered Tissue Yes -Type of bioengineered Tissue [place] -Expiration Date 03/28/22 -Product Lot Number [id number] -Percent Used 100 -Saline Lot Number [id number] -Bleeding Controlled with Pressure -Offloading No -Treatment Response Procedure Tolerated Well #23 L [place] -Correct Patient No -Correct Side, Site, Position No -Correct Procedure No -Procedure Performed No -Post Debridement Size (cm) - Length 0 -Post Debridement Size (cm) - Width 0 -Post Debridement Size (cm) - Depth 0 -Total Square Cm 0 -Wound/Ulcer Outcome Healed- Epithelialized #22 L [place] -Time 11:08 -Correct Patient Yes -Correct Side, Site, Position Yes -Correct Procedure Yes -Procedure Performed Yes -Type of Procedure Debridement -Clinical Debridement Subcutaneous -Post Debridement Size (cm) - Length 0.4 -Post Debridement Size (cm) - Width 0.3 -Post Debridement Size (cm) - Depth 0.3 -Total Square Cm 0.12 -Wound/Ulcer Outcome Not Healed -Ulcer Cleansing Rinsed/ Irrigated with Saline -Foul Odor after Cleansing No -Bioengineered Tissue Yes -Type of bioengineered Tissue [place] -Expiration Date 03/28/22 -Product Lot Number [id number] -Percent Used 100 -Saline Lot Number [id number] -Bleeding Controlled with Pressure -Offloading No -Treatment Response Procedure Tolerated Well [See Physician Procedure note for Specifics] Pain Scale: 0-10 Numeric [Pain] -Is Patient Pain Free? Yes Musculoskeletal: No Tenderness to Palpation of Joints or Extremities Lymphatic: No Cervical, Supraclavicular, or Inguinal Adenopathy Neurological: Neuro grossly intact Psych/Mental Status: Normal Affect, Appropriate Debridement Note Post-Debridement Measurements/Treatment WC - Nurse 2 - General Ulcer CM Notes Start: 06/19/18 08:26 Freq: Status: Active Protocol: Activity Type Activity Date Activity User E-Sign Co-Sign Detail Recorded Client Recorded Date Recorded By Document 06/19/18 09:02 [id number] 06/19/18 09:04 Document 06/26/18 09:08 [id number] 06/26/18 09:10 Document 07/03/18 09:19 [id number] 07/03/18 09:27 Document 07/17/18 11:07 [id number] 07/17/18 11:10 06/19/18 06/26/18 07/03/18 09:02 09:08 09:19 Wound Center Nurse 2 24-right lateral leg -Time -Correct Patient -Correct Side, Site, Position -Correct Procedure -Procedure Performed -Type of Procedure -Clinical Debridement -Post Debridement Size (cm) - Length -Post Debridement Size (cm) - Width -Post Debridement Size (cm) - Depth -Total Square Cm -Wound/Ulcer Outcome -Ulcer Cleansing -Foul Odor after Cleansing -Bioengineered Tissue -Type of bioengineered Tissue -Expiration Date -Product Lot Number -Percent Used -Saline Lot Number -Bleeding Controlled with -Offloading -Treatment Response #23 L [place] -Time 09:02 09:24 -Correct Patient Yes No No -Correct Side, Site, Position Yes No No -Correct Procedure Yes No No -Procedure Performed Yes No No -Type of Procedure Debridement -Clinical Debridement Subcutaneous -Post Debridement Size (cm) - Length 2.5 0.1 0 -Post Debridement Size (cm) - Width 1.5 0.1 0 -Post Debridement Size (cm) - Depth 0.1 0.1 0 -Total Square Cm 3.75 0.01 0 -Wound/Ulcer Outcome Not Healed Not Healed Healed- Epithelialized -Ulcer Cleansing Rinsed/ Rinsed/ Rinsed/ Irrigated with Irrigated with Irrigated with Saline Saline Saline -Foul Odor after Cleansing No No No -Bioengineered Tissue Yes No No -Type of bioengineered Tissue [place] -Expiration Date 01/24/22 -Product Lot Number [id number] -Percent Used 100 -Saline Lot Number [id number] -Bleeding Controlled with Pressure Pressure Pressure -Offloading No No No -Treatment Response Procedure Procedure Tolerated Well Tolerated Well #22 L [place] -Time 09:03 09:09 09:26 -Correct Patient Yes Yes Yes -Correct Side, Site, Position Yes Yes Yes -Correct Procedure Yes Yes Yes -Procedure Performed Yes Yes Yes -Type of Procedure Debridement Debridement Debridement -Clinical Debridement Subcutaneous Subcutaneous Subcutaneous -Post Debridement Size (cm) - Length 0.8 0.3 0.6 -Post Debridement Size (cm) - Width 0.9 0.3 0.7 -Post Debridement Size (cm) - Depth 0.8 0.4 0.2 -Total Square Cm 0.72 0.09 0.42 -Wound/Ulcer Outcome Not Healed Not Healed Not Healed -Ulcer Cleansing Rinsed/ Rinsed/ Rinsed/ Irrigated with Irrigated with Irrigated with Saline Saline Saline -Foul Odor after Cleansing No No No -Bioengineered Tissue Yes Yes No -Type of bioengineered Tissue [place] -Expiration Date 01/24/22 01/03/22 -Product Lot Number [id number] -Percent Used 100 30 -Saline Lot Number [id number] -Bleeding Controlled with Pressure Pressure Pressure -Offloading No No No -Treatment Response Procedure Procedure Tolerated Well Tolerated Well Pain Scale: 0-10 Numeric Is Patient Pain Free? Yes Yes Yes 07/17/18 11:07 Wound Center Nurse 2 24-right lateral leg -Time 11:09 -Correct Patient Yes -Correct Side, Site, Position Yes -Correct Procedure Yes -Procedure Performed Yes -Type of Procedure Debridement -Clinical Debridement Subcutaneous -Post Debridement Size (cm) - Length 1 -Post Debridement Size (cm) - Width 0.8 -Post Debridement Size (cm) - Depth 0.1 -Total Square Cm 0.8 -Wound/Ulcer Outcome Not Healed -Ulcer Cleansing Rinsed/ Irrigated with Saline -Foul Odor after Cleansing No -Bioengineered Tissue Yes -Type of bioengineered Tissue [place] -Expiration Date 03/28/22 -Product Lot Number [id number] -Percent Used 100 -Saline Lot Number [id number] -Bleeding Controlled with Pressure -Offloading No -Treatment Response Procedure Tolerated Well #23 L [place] -Time -Correct Patient No -Correct Side, Site, Position No -Correct Procedure No -Procedure Performed No -Type of Procedure -Clinical Debridement -Post Debridement Size (cm) - Length 0 -Post Debridement Size (cm) - Width 0 -Post Debridement Size (cm) - Depth 0 -Total Square Cm 0 -Wound/Ulcer Outcome Healed- Epithelialized -Ulcer Cleansing -Foul Odor after Cleansing -Bioengineered Tissue -Type of bioengineered Tissue -Expiration Date -Product Lot Number -Percent Used -Saline Lot Number -Bleeding Controlled with -Offloading -Treatment Response #22 L [place] -Time 11:08 -Correct Patient Yes -Correct Side, Site, Position Yes -Correct Procedure Yes -Procedure Performed Yes -Type of Procedure Debridement -Clinical Debridement Subcutaneous -Post Debridement Size (cm) - Length 0.4 -Post Debridement Size (cm) - Width 0.3 -Post Debridement Size (cm) - Depth 0.3 -Total Square Cm 0.12 -Wound/Ulcer Outcome Not Healed -Ulcer Cleansing Rinsed/ Irrigated with Saline -Foul Odor after Cleansing No -Bioengineered Tissue Yes -Type of bioengineered Tissue [place] -Expiration Date 03/28/22 -Product Lot Number [id number] -Percent Used 100 -Saline Lot Number [id number] -Bleeding Controlled with Pressure -Offloading No -Treatment Response Procedure Tolerated Well Pain Scale: 0-10 Numeric Is Patient Pain Free? Yes Wound debrided: Left anterior lower leg Laterality: Left Type of Debridement: Excisional debridement Anesthesia Used: 4% Lidocaine Solution Depth: Down to and including healthy tissue Percentage of wound debrided: 100 Instrument Used: 3mm curette Tissue Removed: Subcutaneous tissue Severity: Limited To Skin Breakdown Amount of bleeding with debridement: None Bleeding Controlled with: Pressure Patient tolerated procedure well - Additional Wound Wound debrided: right lateral lower leg Laterality: Right Type of Debridement: Excisional debridement Anesthesia Used: 4% Lidocaine Solution Depth: Down to and including healthy tissue, in the subcutaneous layer Percentage of wound debrided: 100 Instrument Used: 3mm curette Tissue Removed: Subcutaneous tissue and slough Severity: Limited To Skin Breakdown Amount of bleeding with debridement: Mild Bleeding Controlled with: Pressure Patient tolerated procedure: Patient tolerated procedure well Assessment/Plan Assessment: 1. Nonhealing ulcer left lower anterior leg. 2. Brain tumor - receiving chemotherapy. 3. s/p surgical preparation left lower posterior leg in Achilles area with excisional debridement nonhealing ulcer and reconstruction with STSG from left flank (5 cm2) and surgical preparation left lower anterior leg with excisional debridement nonhealing ulcer and reconstruction with STSG from left flank (15.75 cm2) and placement of CHELSEA NPWT device. 4. Mild compromise skin grafts left leg. 5. Traumatic wound to right lower leg (Acute). Plan: The left lower anterior leg ulcer had slowed down its healing. She has completed HBOT treatments. Continue the Tubigrip for compression. A wound culture from 05/15/18 showed Staphylococcus hominis hominis and was placed on Dicloxacillin and has finished them. Thera-skin skin substitute graft placement has been started. She has had 5 applications thus far. Thera-skin #6 was applied to left lower anterior leg. 30% of the product was used. Used the remainder on the new open wound on right lateral lower leg. If Thera-skin not successful, will need additional operative debridement with further skin grafting. Her Prealbumin from 01/25/18 was 30.8. Encourage nutritional supplementation with protein to help the healing process. Followup 1 week. Code Visit [id number]: [id number] Skin sub graft trnk/arm/leg
--- NOTE | 2018-07-20 10:26 | PN.PCM_ITS ---
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 Status: Chronic Code(s): L97.925 - Non-pressure chronic ulcer of unspecified part of left lower leg with muscle involvement without evidence of necrosis (2) Complication of skin graft Status: Chronic Code(s): T86.829 - Unspecified complication of skin graft (allograft) (autograft) (3) Traumatic open wound of left lower leg Status: Resolved Code(s): S81.802A - Unspecified open wound, left lower leg, initial encounter (4) Traumatic open wound of right lower leg Status: Acute Code(s): S81.801A - Unspecified open wound, right lower leg, initial encounter Type of Wound Date of Service: 07/17/18 Chief Complaint: Nonhealing skin graft ulcer left lower anterior leg. History of Wound: Surgery 01/24/18 - 1. Surgical preparation left lower posterior leg in Achilles area with excisional debridement nonhealing ulcer and reconstruction with STSG from left flank (5 cm2). 2. Surgical preparation left lower anterior leg with excisional debridement nonhealing ulcer and reconstruction with STSG from left flank (15.75 cm2) and placement of CHELSEA NPWT device. Wound care - Thera-Skin #6. Operative culture - MRSE in both wounds. She was treated with Vancomycin and has completed the treatment. Prealbumin from 01/25/18 was 30.8. Encourage nutritional supplementation with protein to help the healing process. Today the patient denies fever. Her appetite is pretty good. She underwent HBO treatments for her compromised skin grafts and have finished the treatments without problem. She had a wound culture done on 05/15/18. It showed Staphylococcus hominis hominis and she was placed on Dicloxacillin and has finished them. Thera-skin skin substitute graft placement has been started. She has had 6 applications thus far. She has a new wound on right lateral lower leg that she obtained a week ago when her dog scratched her. It is opened but not draining, no redness. Progress of Wound: Slowly healing. - Physical Exam Vital Signs Temp Pulse Resp BP 96.6 F L 71 16 115/70 07/17/18 10:31 07/17/18 10:31 07/17/18 10:31 07/17/18 10:31 General: Alert, Cooperative HEENT: Atraumatic Oral: Moist Mucosa Lungs: Normal air movement Cardiovascular: Regular rate Extremities: No edema, Capillary Refill Less than 3 Seconds, Peripheral Pulses Normal Skin: Ulcer/ Wound - Left lower leg at skin graft site. New wound right lateral lower leg. Wound Measurements and Assessment WC - Nurse 1 - General Ulcer Measurement Start: 06/19/18 08:26 Freq: Status: Active Protocol: Activity Type Activity Date Activity User E-Sign Co-Sign Detail Recorded Client Recorded Date Recorded By Document 07/17/18 10:31 [id number] 07/17/18 10:37 07/17/18 10:31 Wound Center Nurse 1 [Ulcer Assessment] #23 L [place] -Combined with other wound No -Current Size (cm) - Length 0.1 -Current Size (cm) - Width 0.1 -Current Size (cm) - Depth 0.1 -Total Square Cm 0.01 -Date of Last Picture (Recall this 07/17/18 field) -Photo Taken Yes -Epithelialization Large 67-100% #22 L [place] -Combined with other wound No -Current Size (cm) - Length 0.2 -Current Size (cm) - Width 0.3 -Current Size (cm) - Depth 0.2 -Total Square Cm 0.06 -Date of Last Picture (Recall this 07/17/18 field) -Photo Taken Yes -Epithelialization Small 1-33% -Tunneling No -Undermining/Tunneling No -Circular Undermining No -Exudate Amt None Present (0 %) -Wound Margin Distinct, Outline Attached -Granulation Amt Large (67-100%) -Granulation Quality N/A Red -Slough/Fibrin Yes -Necrosis Amt Large (67-100%) -Necrotic Tissue Type Adherent Slough -Structure Exposed None/Limited to Skin Breakdown -Texture (Riddhi-wound Skin Appearance) Scarring -Moisture (Riddhi-wound Skin Appearance No Abnormality ) Assessed -Color (Riddhi-wound Skin Appearance) Assessed -Temperature (Riddhi-wound Skin No Abnormality Appearance) (Pt Warm) -Tenderness on Palpation (Riddhi-wound No Skin Appearance) -Ulcer Cleansing Rinsed/ Irrigated with Saline -Foul Odor after Cleansing No -Anesthetic Used 5% Lidocaine Gel [Edema Assessment] -Lower Limb Edema Present No -Left Calf (cm) 35 -Left Ankle (cm) 22 WC - Nurse 2 - General Ulcer CM Notes Start: 06/19/18 08:26 Freq: Status: Active Protocol: Activity Type Activity Date Activity User E-Sign Co-Sign Detail Recorded Client Recorded Date Recorded By Document 07/17/18 11:07 RANDY [id number] 07/17/18 11:10 RANDY 07/17/18 11:07 Wound Center Nurse 2 [Procedure/Treatment] 24-right lateral leg -Time 11:09 -Correct Patient Yes -Correct Side, Site, Position Yes -Correct Procedure Yes -Procedure Performed Yes -Type of Procedure Debridement -Clinical Debridement Subcutaneous -Post Debridement Size (cm) - Length 1 -Post Debridement Size (cm) - Width 0.8 -Post Debridement Size (cm) - Depth 0.1 -Total Square Cm 0.8 -Wound/Ulcer Outcome Not Healed -Ulcer Cleansing Rinsed/ Irrigated with Saline -Foul Odor after Cleansing No -Bioengineered Tissue Yes -Type of bioengineered Tissue [place] -Expiration Date 03/28/22 -Product Lot Number [id number] -Percent Used 100 -Saline Lot Number [id number] -Bleeding Controlled with Pressure -Offloading No -Treatment Response Procedure Tolerated Well #23 L [place] -Correct Patient No -Correct Side, Site, Position No -Correct Procedure No -Procedure Performed No -Post Debridement Size (cm) - Length 0 -Post Debridement Size (cm) - Width 0 -Post Debridement Size (cm) - Depth 0 -Total Square Cm 0 -Wound/Ulcer Outcome Healed- Epithelialized #22 L [place] -Time 11:08 -Correct Patient Yes -Correct Side, Site, Position Yes -Correct Procedure Yes -Procedure Performed Yes -Type of Procedure Debridement -Clinical Debridement Subcutaneous -Post Debridement Size (cm) - Length 0.4 -Post Debridement Size (cm) - Width 0.3 -Post Debridement Size (cm) - Depth 0.3 -Total Square Cm 0.12 -Wound/Ulcer Outcome Not Healed -Ulcer Cleansing Rinsed/ Irrigated with Saline -Foul Odor after Cleansing No -Bioengineered Tissue Yes -Type of bioengineered Tissue [place] -Expiration Date 03/28/22 -Product Lot Number [id number] -Percent Used 100 -Saline Lot Number [id number] -Bleeding Controlled with Pressure -Offloading No -Treatment Response Procedure Tolerated Well [See Physician Procedure note for Specifics] Pain Scale: 0-10 Numeric [Pain] -Is Patient Pain Free? Yes Musculoskeletal: No Tenderness to Palpation of Joints or Extremities Lymphatic: No Cervical, Supraclavicular, or Inguinal Adenopathy Neurological: Neuro grossly intact Psych/Mental Status: Normal Affect, Appropriate Debridement Note Post-Debridement Measurements/Treatment WC - Nurse 2 - General Ulcer CM Notes Start: 06/19/18 08:26 Freq: Status: Active Protocol: Activity Type Activity Date Activity User E-Sign Co-Sign Detail Recorded Client Recorded Date Recorded By Document 06/19/18 09:02 [id number] 06/19/18 09:04 Document 06/26/18 09:08 [id number] 06/26/18 09:10 Document 07/03/18 09:19 [id number] 07/03/18 09:27 Document 07/17/18 11:07 [id number] 07/17/18 11:10 06/19/18 06/26/18 07/03/18 09:02 09:08 09:19 Wound Center Nurse 2 24-right lateral leg -Time -Correct Patient -Correct Side, Site, Position -Correct Procedure -Procedure Performed -Type of Procedure -Clinical Debridement -Post Debridement Size (cm) - Length -Post Debridement Size (cm) - Width -Post Debridement Size (cm) - Depth -Total Square Cm -Wound/Ulcer Outcome -Ulcer Cleansing -Foul Odor after Cleansing -Bioengineered Tissue -Type of bioengineered Tissue -Expiration Date -Product Lot Number -Percent Used -Saline Lot Number -Bleeding Controlled with -Offloading -Treatment Response #23 L [place] -Time 09:02 09:24 -Correct Patient Yes No No -Correct Side, Site, Position Yes No No -Correct Procedure Yes No No -Procedure Performed Yes No No -Type of Procedure Debridement -Clinical Debridement Subcutaneous -Post Debridement Size (cm) - Length 2.5 0.1 0 -Post Debridement Size (cm) - Width 1.5 0.1 0 -Post Debridement Size (cm) - Depth 0.1 0.1 0 -Total Square Cm 3.75 0.01 0 -Wound/Ulcer Outcome Not Healed Not Healed Healed- Epithelialized -Ulcer Cleansing Rinsed/ Rinsed/ Rinsed/ Irrigated with Irrigated with Irrigated with Saline Saline Saline -Foul Odor after Cleansing No No No -Bioengineered Tissue Yes No No -Type of bioengineered Tissue [place] -Expiration Date 01/24/22 -Product Lot Number [id number] -Percent Used 100 -Saline Lot Number [id number] -Bleeding Controlled with Pressure Pressure Pressure -Offloading No No No -Treatment Response Procedure Procedure Tolerated Well Tolerated Well #22 L [place] -Time 09:03 09:09 09:26 -Correct Patient Yes Yes Yes -Correct Side, Site, Position Yes Yes Yes -Correct Procedure Yes Yes Yes -Procedure Performed Yes Yes Yes -Type of Procedure Debridement Debridement Debridement -Clinical Debridement Subcutaneous Subcutaneous Subcutaneous -Post Debridement Size (cm) - Length 0.8 0.3 0.6 -Post Debridement Size (cm) - Width 0.9 0.3 0.7 -Post Debridement Size (cm) - Depth 0.8 0.4 0.2 -Total Square Cm 0.72 0.09 0.42 -Wound/Ulcer Outcome Not Healed Not Healed Not Healed -Ulcer Cleansing Rinsed/ Rinsed/ Rinsed/ Irrigated with Irrigated with Irrigated with Saline Saline Saline -Foul Odor after Cleansing No No No -Bioengineered Tissue Yes Yes No -Type of bioengineered Tissue [place] -Expiration Date 01/24/22 01/03/22 -Product Lot Number [id number] -Percent Used 100 30 -Saline Lot Number [id number] -Bleeding Controlled with Pressure Pressure Pressure -Offloading No No No -Treatment Response Procedure Procedure Tolerated Well Tolerated Well Pain Scale: 0-10 Numeric Is Patient Pain Free? Yes Yes Yes 07/17/18 11:07 Wound Center Nurse 2 24-right lateral leg -Time 11:09 -Correct Patient Yes -Correct Side, Site, Position Yes -Correct Procedure Yes -Procedure Performed Yes -Type of Procedure Debridement -Clinical Debridement Subcutaneous -Post Debridement Size (cm) - Length 1 -Post Debridement Size (cm) - Width 0.8 -Post Debridement Size (cm) - Depth 0.1 -Total Square Cm 0.8 -Wound/Ulcer Outcome Not Healed -Ulcer Cleansing Rinsed/ Irrigated with Saline -Foul Odor after Cleansing No -Bioengineered Tissue Yes -Type of bioengineered Tissue [place] -Expiration Date 03/28/22 -Product Lot Number [id number] -Percent Used 100 -Saline Lot Number [id number] -Bleeding Controlled with Pressure -Offloading No -Treatment Response Procedure Tolerated Well #23 L [place] -Time -Correct Patient No -Correct Side, Site, Position No -Correct Procedure No -Procedure Performed No -Type of Procedure -Clinical Debridement -Post Debridement Size (cm) - Length 0 -Post Debridement Size (cm) - Width 0 -Post Debridement Size (cm) - Depth 0 -Total Square Cm 0 -Wound/Ulcer Outcome Healed- Epithelialized -Ulcer Cleansing -Foul Odor after Cleansing -Bioengineered Tissue -Type of bioengineered Tissue -Expiration Date -Product Lot Number -Percent Used -Saline Lot Number -Bleeding Controlled with -Offloading -Treatment Response #22 L [place] -Time 11:08 -Correct Patient Yes -Correct Side, Site, Position Yes -Correct Procedure Yes -Procedure Performed Yes -Type of Procedure Debridement -Clinical Debridement Subcutaneous -Post Debridement Size (cm) - Length 0.4 -Post Debridement Size (cm) - Width 0.3 -Post Debridement Size (cm) - Depth 0.3 -Total Square Cm 0.12 -Wound/Ulcer Outcome Not Healed -Ulcer Cleansing Rinsed/ Irrigated with Saline -Foul Odor after Cleansing No -Bioengineered Tissue Yes -Type of bioengineered Tissue [place] -Expiration Date 03/28/22 -Product Lot Number [id number] -Percent Used 100 -Saline Lot Number [id number] -Bleeding Controlled with Pressure -Offloading No -Treatment Response Procedure Tolerated Well Pain Scale: 0-10 Numeric Is Patient Pain Free? Yes Wound debrided: Left anterior lower leg Laterality: Left Type of Debridement: Excisional debridement Anesthesia Used: 4% Lidocaine Solution Depth: Down to and including healthy tissue Percentage of wound debrided: 100 Instrument Used: 3mm curette Tissue Removed: Subcutaneous tissue Severity: Limited To Skin Breakdown Amount of bleeding with debridement: None Bleeding Controlled with: Pressure Patient tolerated procedure well - Additional Wound Wound debrided: right lateral lower leg Laterality: Right Type of Debridement: Excisional debridement Anesthesia Used: 4% Lidocaine Solution Depth: Down to and including healthy tissue, in the subcutaneous layer Percentage of wound debrided: 100 Instrument Used: 3mm curette Tissue Removed: Subcutaneous tissue and slough Severity: Limited To Skin Breakdown Amount of bleeding with debridement: Mild Bleeding Controlled with: Pressure Patient tolerated procedure: Patient tolerated procedure well Assessment/Plan Assessment: 1. Nonhealing ulcer left lower anterior leg. 2. Brain tumor - receiving chemotherapy. 3. s/p surgical preparation left lower posterior leg in Achilles area with excisional debridement nonhealing ulcer and reconstruction with STSG from left flank (5 cm2) and surgical preparation left lower anterior leg with excisional debridement nonhealing ulcer and reconstruction with STSG from left flank (15.75 cm2) and placement of CHELSEA NPWT device. 4. Mild compromise skin grafts left leg. 5. Traumatic wound to right lower leg (Acute). Plan: The left lower anterior leg ulcer had slowed down its healing. She has completed HBOT treatments. Continue the Tubigrip for compression. A wound culture from 05/15/18 showed Staphylococcus hominis hominis and was placed on Dicloxacillin and has finished them. Thera-skin skin substitute graft placement has been started. She has had 5 applications thus far. Thera-skin #6 was applied to left lower anterior leg. 30% of the product was used. Used the remainder on the new open wound on right lateral lower leg. If Thera-skin not successful, will need additional operative debridement with further skin grafti ng. Her Prealbumin from 01/25/18 was 30.8. Encourage nutritional supplementation with protein to help the healing process. Followup 1 week. Code Visit [id number]: [id number] Skin sub graft trnk/arm/leg
== END 2018-07-17 23:59 ==
LOC: WC 10:30
PROVIDERS: Family Provider Student in an Organized Health Care Education/Training Program; PCP Student in an Organized Health Care Education/Training Program; Visit Provider Surgery
DX: T86.829 Unspecified complication of skin graft (allograft) (autograft) (principal); Y83.2 Surgical operation with anastomosis, bypass or graft as the cause of abnormal reaction of the patient, or of later complication, without mention of misadventure at the time of the procedure; L97.821 Non-pressure chronic ulcer of other part of left lower leg limited to breakdown of skin; D49.6 Neoplasm of unspecified behavior of brain; L97.822 Non-pressure chronic ulcer of other part of left lower leg with fat layer exposed
CPT/HCPCS: 11042; 15271; Q4121

== ENCOUNTER 2018-08-08 13:45 | Outpatient (RCR) | payer MEDICARE, SELFPAY ==
[2018-07-18 00:40] VITALS: BP 115/70; PULSE 71; RESP 16; TEMP 35.9
[2018-07-24 11:41] VITALS: BP 126/70; PULSE 58; RESP 16; TEMP 36.9
--- NOTE | 2018-07-24 18:25 | PCM.WC.PN ---
Type of Wound Date of Service: 07/24/18 Chief Complaint: Nonhealing skin graft ulcer left lower anterior leg and new ulcer right lateral proximal leg. History of Wound: Surgery 01/24/18 - 1. Surgical preparation left lower posterior leg in Achilles area with excisional debridement nonhealing ulcer and reconstruction with STSG from left flank (5 cm2). 2. Surgical preparation left lower anterior leg with excisional debridement nonhealing ulcer and reconstruction with STSG from left flank (15.75 cm2) and placement of CHELSEA NPWT device. Wound care - Thera-Skin #6. Operative culture - MRSE in both wounds. She was treated with Vancomycin and has completed the treatment. Prealbumin from 01/25/18 was 30.8. Encourage nutritional supplementation with protein to help the healing process. Today the patient denies fever. Her appetite is pretty good. She underwent HBO treatments for her compromised skin grafts and have finished the treatments without problem. She had a wound culture done on 05/15/18. It showed Staphylococcus hominis hominis and she was placed on Dicloxacillin and has finished them. Thera-skin skin substitute graft placement has been started. She has had 6 applications thus far. She also has a new onset superficial abrasion ulcer on the right lateral proximal leg. She states she bumped her leg at home. Progress of Wound: Left leg ulcer healed and new ulcer right lateral proximal leg. - Physical Exam Vital Signs Temp Pulse Resp BP 98.4 F 58 L 16 126/70 H 07/24/18 11:41 07/24/18 11:41 07/24/18 11:41 07/24/18 11:41 Wound Measurements and Assessment WC - Nurse 1 - General Ulcer Measurement Start: 07/24/18 11:41 Freq: Status: Active Protocol: Activity Type Activity Date Activity User E-Sign Co-Sign Detail Recorded Client Recorded Date Recorded By Document 07/24/18 11:41 DV [id number] 07/24/18 11:51 DV 07/24/18 11:41 Wound Center Nurse 1 [Ulcer Assessment] 24-right lateral leg -Combined with other wound No -Current Size (cm) - Length 0.8 -Current Size (cm) - Width 0.7 -Current Size (cm) - Depth 0.1 -Total Square Cm 0.56 -Photo Taken No -Epithelialization None Present -Tunneling No -Undermining/Tunneling No -Circular Undermining No -Exudate Amt Small (1-33%) -Exudate Type Sanguineous -Wound Margin Distinct, Outline Attached -Granulation Amt Medium (34-66%) -Granulation Quality Red -Slough/Fibrin Yes -Necrosis Amt Medium (34-66%) -Necrotic Tissue Type Adherent Slough -Texture (Riddhi-wound Skin Appearance) Scarring -Moisture (Riddhi-wound Skin Appearance Dry/Scaly ) -Color (Riddhi-wound Skin Appearance) Assessed -Temperature (Riddhi-wound Skin No Abnormality Appearance) (Pt Warm) -Tenderness on Palpation (Riddhi-wound No Skin Appearance) -Ulcer Cleansing Rinsed/ Irrigated with Saline -Foul Odor after Cleansing No -Anesthetic Used 4% Lidocaine Solution #22 L [place] -Combined with other wound No -Current Size (cm) - Length 0.1 -Current Size (cm) - Width 0.1 -Current Size (cm) - Depth 0.1 -Total Square Cm 0.01 -Epithelialization Large 67-100% -Tunneling No -Undermining/Tunneling No -Circular Undermining No -Texture (Riddhi-wound Skin Appearance) Scarring -Moisture (Riddhi-wound Skin Appearance Dry/Scaly ) -Color (Riddhi-wound Skin Appearance) Assessed -Temperature (Riddhi-wound Skin No Abnormality Appearance) (Pt Warm) -Tenderness on Palpation (Riddhi-wound No Skin Appearance) -Ulcer Cleansing Rinsed/ Irrigated with Saline -Foul Odor after Cleansing No -Anesthetic Used 4% Lidocaine Solution [Edema Assessment] -Lower Limb Edema Present Yes -Right Calf (cm) 35 -Right Ankle (cm) 20.4 -Left Calf (cm) 35 -Left Ankle (cm) 25 WC - Nurse 2 - General Ulcer CM Notes Start: 07/24/18 11:41 Freq: Status: Active Protocol: Activity Type Activity Date Activity User E-Sign Co-Sign Detail Recorded Client Recorded Date Recorded By Document 07/24/18 12:21 RANDY [id number] 07/24/18 12:23 RANDY 07/24/18 12:21 Wound Center Nurse 2 [Procedure/Treatment] 24-right lateral leg -Time 12:22 -Correct Patient Yes -Correct Side, Site, Position Yes -Correct Procedure Yes -Procedure Performed Yes -Type of Procedure Debridement -Clinical Debridement Subcutaneous -Post Debridement Size (cm) - Length 0.8 -Post Debridement Size (cm) - Width 1.0 -Post Debridement Size (cm) - Depth 0.1 -Total Square Cm 0.80 -Wound/Ulcer Outcome Not Healed -Ulcer Cleansing Rinsed/ Irrigated with Saline -Foul Odor after Cleansing No -Bioengineered Tissue No -Bleeding Controlled with Pressure -Offloading No -Treatment Response Procedure Tolerated Well #22 L [place] -Correct Patient No -Correct Side, Site, Position No -Correct Procedure No -Procedure Performed No -Post Debridement Size (cm) - Length 0 -Post Debridement Size (cm) - Width 0 -Post Debridement Size (cm) - Depth 0 -Total Square Cm 0 -Wound/Ulcer Outcome Healed- Epithelialized [See Physician Procedure note for Specifics] Pain Scale: 0-10 Numeric [Pain] -Is Patient Pain Free? Yes Debridement Note Post-Debridement Measurements/Treatment WC - Nurse 2 - General Ulcer CM Notes Start: 07/24/18 11:41 Freq: Status: Active Protocol: Activity Type Activity Date Activity User E-Sign Co-Sign Detail Recorded Client Recorded Date Recorded By Document 07/24/18 12:21 RANDY [id number] 07/24/18 12:23 RANDY 07/24/18 12:21 Wound Center Nurse 2 24-right lateral leg -Time 12:22 -Correct Patient Yes -Correct Side, Site, Position Yes -Correct Procedure Yes -Procedure Performed Yes -Type of Procedure Debridement -Clinical Debridement Subcutaneous -Post Debridement Size (cm) - Length 0.8 -Post Debridement Size (cm) - Width 1.0 -Post Debridement Size (cm) - Depth 0.1 -Total Square Cm 0.80 -Wound/Ulcer Outcome Not Healed -Ulcer Cleansing Rinsed/ Irrigated with Saline -Foul Odor after Cleansing No -Bioengineered Tissue No -Bleeding Controlled with Pressure -Offloading No -Treatment Response Procedure Tolerated Well #22 L [place] -Correct Patient No -Correct Side, Site, Position No -Correct Procedure No -Procedure Performed No -Post Debridement Size (cm) - Length 0 -Post Debridement Size (cm) - Width 0 -Post Debridement Size (cm) - Depth 0 -Total Square Cm 0 -Wound/Ulcer Outcome Healed- Epithelialized Pain Scale: 0-10 Numeric Is Patient Pain Free? Yes Wound debrided: #22 Left lower anterior leg. Laterality: Left Wound Grade/Stage: 2. No debridement was completed today - The ulcer has healed. - Additional Wound Wound debrided: #24 Right lateral proximal leg. Laterality: Right Wound Grade/Stage: 2. Type of Debridement: Excisional debridement Anesthesia Used: 4% Lidocaine Solution Depth: Down to and including healthy tissue, in the subcutaneous layer Percentage of wound debrided: 100 Instrument Used: 3mm curette Tissue Removed: subcutaneous tissue. Severity: Fat Layer Exposed Amount of bleeding with debridement: Mild Bleeding Controlled with: Pressure Patient tolerated procedure: Patient tolerated procedure well Assessment/Plan Assessment: 1. Ulcer left lower anterior leg, healed. 2. Nonhealing ulcer right lateral proximal leg. 3. Brain tumor - receiving chemotherapy. 4. s/p surgical preparation left lower posterior leg in Achilles area with excisional debridement nonhealing ulcer and reconstruction with STSG from left flank (5 cm2) and surgical preparation left lower anterior leg with excisional debridement nonhealing ulcer and reconstruction with STSG from left flank (15.75 cm2) and placement of CHELSEA NPWT device. 5. Mild compromise skin grafts left leg. Plan: The left lower anterior leg ulcer has healed. She has completed HBOT treatments. Continue the Tubigrip for compression. A wound culture from 05/15/18 showed Staphylococcus hominis hominis and was placed on Dicloxacillin and has finished them. No Thera-skin skin substitute graft was placed today as the ulcer has healed. She had a total of 6 applications. Her Prealbumin from 01/25/18 was 30.8. Encourage nutritional supplementation with protein to help the healing process. For the new onset ulcer right lateral proximal leg since it is superficial, will apply Collagen Hydrogel for wound care on a daily basis. She is scheduled to have her MRI Brain (to monitor her brain tumor) in a few weeks. Followup one week with Wanda Nurse Practitioner.
[2018-07-31 10:49] VITALS: BP 115/71; PULSE 63; RESP 16; TEMP 35.9
--- NOTE | 2018-07-31 12:19 | PCM.WC.PN ---
(1) Nonhealing ulcer of right lower extremity with fat layer exposed Status: Acute Current Visit: Yes Code(s): L97.912 - Non-pressure chronic ulcer of unspecified part of right lower leg with fat layer exposed Type of Wound Date of Service: 07/31/18 Chief Complaint: Nonhealing skin graft ulcer left lower anterior leg and new ulcer right lateral proximal leg. History of Wound: Surgery 01/24/18 - 1. Surgical preparation left lower posterior leg in Achilles area with excisional debridement nonhealing ulcer and reconstruction with STSG from left flank (5 cm2). 2. Surgical preparation left lower anterior leg with excisional debridement nonhealing ulcer and reconstruction with STSG from left flank (15.75 cm2) and placement of CHELSEA NPWT device. Wound care - Thera-Skin #6. Operative culture - MRSE in both wounds. She was treated with Vancomycin and has completed the treatment. Prealbumin from 01/25/18 was 30.8. Encourage nutritional supplementation with protein to help the healing process. Today the patient denies fever. Her appetite is pretty good. She underwent HBO treatments for her compromised skin grafts and have finished the treatments without problem. She had a wound culture done on 05/15/18. It showed Staphylococcus hominis hominis and she was placed on Dicloxacillin and has finished them. Thera-skin skin substitute graft placement has been started. She has had 6 applications thus far. She also has a new onset superficial abrasion ulcer on the right lateral proximal leg. She states she bumped her leg at home. Progress of Wound: Improved. - Physical Exam Vital Signs Temp Pulse Resp BP 96.6 F L 63 16 115/71 07/31/18 10:49 07/31/18 10:49 07/31/18 10:49 07/31/18 10:49 General: Alert, Cooperative HEENT: Atraumatic Lungs: Normal air movement Extremities: No edema, Capillary Refill Less than 3 Seconds Skin: Ulcer/ Wound - Right lateral proximal lower leg open area Wound Measurements and Assessment WC - Nurse 1 - General Ulcer Measurement Start: 07/24/18 11:41 Freq: Status: Active Protocol: Activity Type Activity Date Activity User E-Sign Co-Sign Detail Recorded Client Recorded Date Recorded By Document 07/31/18 10:49 [id number] 07/31/18 10:52 07/31/18 10:49 Wound Center Nurse 1 [Ulcer Assessment] 24-right lateral leg -Combined with other wound No -Current Size (cm) - Length 0.8 -Current Size (cm) - Width 0.6 -Current Size (cm) - Depth 0.2 -Total Square Cm 0.48 -Photo Taken No -Epithelialization None Present -Tunneling No -Undermining/Tunneling No -Circular Undermining No -Exudate Amt Medium -Exudate Type Serous -Wound Margin Distinct, Outline Attached -Granulation Amt Medium (34-66%) -Granulation Quality Red -Slough/Fibrin Yes -Necrosis Amt Small (1-33%) -Necrotic Tissue Type Adherent Slough -Structure Exposed None/Limited to Skin Breakdown -Texture (Riddhi-wound Skin Appearance) No Abnormality Assessed -Moisture (Riddhi-wound Skin Appearance Dry/Scaly ) -Color (Riddhi-wound Skin Appearance) No Abnormality Assessed -Temperature (Riddhi-wound Skin No Abnormality Appearance) (Pt Warm) -Tenderness on Palpation (Riddhi-wound No Skin Appearance) -Ulcer Cleansing Rinsed/ Irrigated with Saline -Foul Odor after Cleansing No -Anesthetic Used 4% Lidocaine Solution [Edema Assessment] -Lower Limb Edema Present No -Right Calf (cm) 34 -Right Ankle (cm) 21 - Nurse 2 - General Ulcer CM Notes Start: 07/24/18 11:41 Freq: Status: Active Protocol: Activity Type Activity Date Activity User E-Sign Co-Sign Detail Recorded Client Recorded Date Recorded By Document 07/31/18 11:09 [id number] 07/31/18 11:11 07/31/18 11:09 Wound Center Nurse 2 [Procedure/Treatment] 24-right lateral leg -Time 11:09 -Correct Patient Yes -Correct Side, Site, Position Yes -Correct Procedure Yes -Procedure Performed Yes -Type of Procedure Debridement -Clinical Debridement Subcutaneous -Post Debridement Size (cm) - Length 0.7 -Post Debridement Size (cm) - Width 0.5 -Post Debridement Size (cm) - Depth 0.1 -Total Square Cm 0.35 -Wound/Ulcer Outcome Not Healed -Ulcer Cleansing Rinsed/ Irrigated with Saline -Foul Odor after Cleansing No -Bioengineered Tissue No -Bleeding Controlled with Pressure -Offloading No -Treatment Response Procedure Tolerated Well [See Physician Procedure note for Specifics] Pain Scale: 0-10 Numeric [Pain] -Is Patient Pain Free? Yes Musculoskeletal: No Tenderness to Palpation of Joints or Extremities Neurological: Neuro grossly intact Psych/Mental Status: Normal Affect, Appropriate Debridement Note Post-Debridement Measurements/Treatment WC - Nurse 2 - General Ulcer CM Notes Start: 07/24/18 11:41 Freq: Status: Active Protocol: Activity Type Activity Date Activity User E-Sign Co-Sign Detail Recorded Client Recorded Date Recorded By Document 07/24/18 12:21 [id number] 07/24/18 12:23 Document 07/31/18 11:09 [id number] 07/31/18 11:11 07/24/18 07/31/18 12:21 11:09 Wound Center Nurse 2 24-right lateral leg -Time 12:22 11:09 -Correct Patient Yes Yes -Correct Side, Site, Position Yes Yes -Correct Procedure Yes Yes -Procedure Performed Yes Yes -Type of Procedure Debridement Debridement -Clinical Debridement Subcutaneous Subcutaneous -Post Debridement Size (cm) - Length 0.8 0.7 -Post Debridement Size (cm) - Width 1.0 0.5 -Post Debridement Size (cm) - Depth 0.1 0.1 -Total Square Cm 0.80 0.35 -Wound/Ulcer Outcome Not Healed Not Healed -Ulcer Cleansing Rinsed/ Rinsed/ Irrigated with Irrigated with Saline Saline -Foul Odor after Cleansing No No -Bioengineered Tissue No No -Bleeding Controlled with Pressure Pressure -Offloading No No -Treatment Response Procedure Procedure Tolerated Well Tolerated Well #22 L [place] -Correct Patient No -Correct Side, Site, Position No -Correct Procedure No -Procedure Performed No -Post Debridement Size (cm) - Length 0 -Post Debridement Size (cm) - Width 0 -Post Debridement Size (cm) - Depth 0 -Total Square Cm 0 -Wound/Ulcer Outcome Healed- Epithelialized Pain Scale: 0-10 Numeric Is Patient Pain Free? Yes Yes Wound debrided: Right lateral proximal lower leg Laterality: Right Type of Debridement: Excisional debridement Anesthesia Used: 4% Lidocaine Solution Depth: Down to and including healthy tissue, in the subcutaneous layer Percentage of wound debrided: 100 Instrument Used: 3mm curette Tissue Removed: Subcutaneous tissue and slough Severity: Fat Layer Exposed Amount of bleeding with debridement: Mild Bleeding Controlled with: Pressure Patient tolerated procedure well Assessment/Plan Active Problems (Last Updated 12/16/17 @ 17:12 by Sari Hawk DO) Nonhealing ulcer of right lower extremity with fat layer exposed (Acute) Traumatic open wound of right lower leg (Acute) Assessment: 1. Ulcer left lower anterior leg, healed. 2. Nonhealing ulcer right lateral proximal leg. 3. Brain tumor - receiving chemotherapy. 4. s/p surgical preparation left lower posterior leg in Achilles area with excisional debridement nonhealing ulcer and reconstruction with STSG from left flank (5 cm2) and surgical preparation left lower anterior leg with excisional debridement nonhealing ulcer and reconstruction with STSG from left flank (15.75 cm2) and placement of CHELSEA NPWT device. 5. Mild compromise skin grafts left leg. Plan: The left lower anterior leg ulcer has healed. She has completed HBOT treatments. Continue the Tubigrip for compression. A wound culture from 05/15/18 showed Staphylococcus hominis hominis and was placed on Dicloxacillin and has finished them. She had a total of 6 applications of Theraskin to her left lower leg. Her Prealbumin from 01/25/18 was 30.8. Encourage nutritional supplementation with protein to help the healing process. For the ulcer right lateral proximal leg since it is superficial, will continue to apply Collagen Hydrogel for wound care on a daily basis. She is scheduled to have her MRI Brain (to monitor her brain tumor) in a few weeks. Followup one week. Code Visit [id number]: [id number] Debbi subq tissue 20 sq cm/<
[2018-08-08 13:42] VITALS: BP 111/70; PULSE 59; RESP 16; TEMP 36
--- NOTE | 2018-08-08 14:49 | PN.PCM_ITS ---
(1) Traumatic open wound of left lower leg Status: Acute Current Visit: Yes Code(s): S81.802A - Unspecified open wound, left lower leg, initial encounter (2) Nonhealing ulcer of right lower extremity with fat layer exposed Status: Acute Current Visit: Yes Code(s): L97.912 - Non-pressure chronic ulcer of unspecified part of right lower leg with fat layer exposed Type of Wound Date of Service: 08/08/18 Chief Complaint: Nonhealing skin graft ulcer left lower anterior leg and new ulcer right lateral proximal leg. History of Wound: Surgery 01/24/18 - 1. Surgical preparation left lower posterior leg in Achilles area with excisional debridement nonhealing ulcer and reconstruction with STSG from left flank (5 cm2). 2. Surgical preparation left lower anterior leg with excisional debridement nonhealing ulcer and reconstruction with STSG from left flank (15.75 cm2) and placement of CHELSEA NPWT device. Wound care - Thera-Skin #6. Operative culture - MRSE in both wounds. She was treated with Vancomycin and has completed the treatment. Prealbumin from 01/25/18 was 30.8. Encourage nutritional supplementation with protein to help the healing process. Today the patient denies fever. Her appetite is pretty good. She underwent HBO treatments for her compromised skin grafts and have finished the treatments without problem. She had a wound culture done on 05/15/18. It showed Staphylococcus hominis hominis and she was placed on Dicloxacillin and has finished them. Thera-skin skin substitute graft placement has been started. She has had 6 applications thus far. She also has a new onset superficial abrasion ulcer on the right lateral proximal leg. She states she bumped her leg at home. Progress of Wound: Right lateral left wound healed. Has a new left proximal lateral leg skin tear caused by walking into a corner of a box. - Physical Exam Vital Signs Temp Pulse Resp BP 96.8 F L 59 L 16 111/70 08/08/18 13:42 08/08/18 13:42 08/08/18 13:42 08/08/18 13:42 General: Alert, Oriented x3, Cooperative HEENT: Atraumatic Oral: Moist Mucosa Lungs: Normal air movement Cardiovascular: Regular rate Extremities: No edema, Capillary Refill Less than 3 Seconds Skin: Ulcer/ Wound - Right lateral leg wound healed. Has a new traumatic wound /skin tear on left proximal lateral leg. Wound Measurements and Assessment WC - Nurse 1 - General Ulcer Measurement Start: 07/24/18 11:41 Freq: Status: Active Protocol: Activity Type Activity Date Activity User E-Sign Co-Sign Detail Recorded Client Recorded Date Recorded By Document 08/08/18 13:42 MW [id number] 08/08/18 13:50 MW 08/08/18 13:42 Wound Center Nurse 1 [Ulcer Assessment] #25 left lateral upper leg -Combined with other wound No -Current Size (cm) - Length 2.0 -Current Size (cm) - Width 1.8 -Current Size (cm) - Depth 0.1 -Total Square Cm 3.60 -Date of Last Picture (Recall this 08/08/18 field) -Photo Taken Yes -Epithelialization None Present -Tunneling No -Undermining/Tunneling No -Circular Undermining No -Exudate Amt None Present -Wound Margin Flat & Intact -Granulation Amt Small (1-33%) -Granulation Quality Red -Slough/Fibrin Yes -Necrosis Amt Large (67-100%) -Necrotic Tissue Type Adherent Slough -Structure Exposed N/A -Texture (Riddhi-wound Skin Appearance) Assessed Localized Edema Scarring -Moisture (Riddhi-wound Skin Appearance No Abnormality ) Assessed -Color (Riddhi-wound Skin Appearance) No Abnormality Assessed -Temperature (Riddhi-wound Skin No Abnormality Appearance) (Pt Warm) -Tenderness on Palpation (Riddhi-wound Yes Skin Appearance) -Ulcer Cleansing Rinsed/ Irrigated with Saline -Foul Odor after Cleansing No -Anesthetic Used 4% Lidocaine Solution 24-right lateral leg -Combined with other wound No -Current Size (cm) - Length 0 -Current Size (cm) - Width 0 -Current Size (cm) - Depth 0 -Total Square Cm 0 -Photo Taken Yes -Epithelialization Large 67-100% -Tunneling No -Undermining/Tunneling No -Circular Undermining No -Exudate Amt None Present -Granulation Amt None Present (0 %) -Slough/Fibrin No -Texture (Riddhi-wound Skin Appearance) Assessed Localized Edema Scarring -Moisture (Riddhi-wound Skin Appearance No Abnormality ) Assessed -Color (Riddhi-wound Skin Appearance) No Abnormality Assessed -Temperature (Riddhi-wound Skin No Abnormality Appearance) (Pt Warm) -Tenderness on Palpation (Riddhi-wound No Skin Appearance) -Ulcer Cleansing Not Cleansed -Foul Odor after Cleansing No [Edema Assessment] -Lower Limb Edema Present Yes -Right Calf (cm) 37.3 -Point of Measurement (cm from the 20.4 medial instep) -Left Calf (cm) 37.9 -Left Ankle (cm) 23.0 PONCHO - Nurse 2 - General Ulcer CM Notes Start: 07/24/18 11:41 Freq: Status: Active Protocol: Activity Type Activity Date Activity User E-Sign Co-Sign Detail Recorded Client Recorded Date Recorded By Document 08/08/18 14:20 [id number] 08/08/18 14:21 08/08/18 14:20 Wound Center Nurse 2 [Procedure/Treatment] #25 left lateral upper leg -Time 14:20 -Correct Patient Yes -Correct Side, Site, Position Yes -Correct Procedure Yes -Procedure Performed Yes -Type of Procedure Debridement -Clinical Debridement Selective -Post Debridement Size (cm) - Length 1.2 -Post Debridement Size (cm) - Width 1.5 -Post Debridement Size (cm) - Depth 0.1 -Total Square Cm 1.80 -Wound/Ulcer Outcome Not Healed -Ulcer Cleansing Rinsed/ Irrigated with Saline -Foul Odor after Cleansing No -Bioengineered Tissue No -Bleeding Controlled with Pressure -Offloading No -Treatment Response Procedure Tolerated Well 24-right lateral leg -Correct Patient No -Correct Side, Site, Position No -Correct Procedure No -Procedure Performed No -Post Debridement Size (cm) - Length 0 -Post Debridement Size (cm) - Width 0 -Post Debridement Size (cm) - Depth 0 -Total Square Cm 0 -Wound/Ulcer Outcome Healed- Epithelialized [See Physician Procedure note for Specifics] Pain Scale: 0-10 Numeric [Pain] -Is Patient Pain Free? Yes Musculoskeletal: No Tenderness to Palpation of Joints or Extremities Neurological: Neuro grossly intact Psych/Mental Status: Normal Affect, Appropriate Debridement Note Post-Debridement Measurements/Treatment PONCHO - Nurse 2 - General Ulcer CM Notes Start: 07/24/18 11:41 Freq: Status: Active Protocol: Activity Type Activity Date Activity User E-Sign Co-Sign Detail Recorded Client Recorded Date Recorded By Document 07/24/18 12:21 [id number] 07/24/18 12:23 Document 07/31/18 11:09 [id number] 07/31/18 11:11 JF Document 08/08/18 14:20 [id number] 08/08/18 14:21 JF 07/24/18 07/31/18 08/08/18 12:21 11:09 14:20 Wound Center Nurse 2 #25 left lateral upper leg -Time 14:20 -Correct Patient Yes -Correct Side, Site, Position Yes -Correct Procedure Yes -Procedure Performed Yes -Type of Procedure Debridement -Clinical Debridement Selective -Post Debridement Size (cm) - Length 1.2 -Post Debridement Size (cm) - Width 1.5 -Post Debridement Size (cm) - Depth 0.1 -Total Square Cm 1.80 -Wound/Ulcer Outcome Not Healed -Ulcer Cleansing Rinsed/ Irrigated with Saline -Foul Odor after Cleansing No -Bioengineered Tissue No -Bleeding Controlled with Pressure -Offloading No -Treatment Response Procedure Tolerated Well 24-right lateral leg -Time 12:22 11:09 -Correct Patient Yes Yes No -Correct Side, Site, Position Yes Yes No -Correct Procedure Yes Yes No -Procedure Performed Yes Yes No -Type of Procedure Debridement Debridement -Clinical Debridement Subcutaneous Subcutaneous -Post Debridement Size (cm) - Length 0.8 0.7 0 -Post Debridement Size (cm) - Width 1.0 0.5 0 -Post Debridement Size (cm) - Depth 0.1 0.1 0 -Total Square Cm 0.80 0.35 0 -Wound/Ulcer Outcome Not Healed Not Healed Healed- Epithelialized -Ulcer Cleansing Rinsed/ Rinsed/ Irrigated with Irrigated with Saline Saline -Foul Odor after Cleansing No No -Bioengineered Tissue No No -Bleeding Controlled with Pressure Pressure -Offloading No No -Treatment Response Procedure Procedure Tolerated Well Tolerated Well #22 L [place] -Correct Patient No -Correct Side, Site, Position No -Correct Procedure No -Procedure Performed No -Post Debridement Size (cm) - Length 0 -Post Debridement Size (cm) - Width 0 -Post Debridement Size (cm) - Depth 0 -Total Square Cm 0 -Wound/Ulcer Outcome Healed- Epithelialized Pain Scale: 0-10 Numeric Is Patient Pain Free? Yes Yes Yes Wound debrided: Left proximal lower leg Laterality: Left Type of Debridement: Selective debridement - Removed the torn, skin from the wound Anesthesia Used: 4% Lidocaine Solution Depth: Down to and including healthy tissue Percentage of wound debrided: 50 Severity: Limited To Skin Breakdown Amount of bleeding with debridement: Mild Patient tolerated procedure well Assessment/Plan Active Problems (Last Updated 12/16/17 @ 17:12 by Sari Hawk DO) Nonhealing ulcer of right lower extremity with fat layer exposed (Acute) Traumatic open wound of left lower leg (Acute) Traumatic open wound of right lower leg (Acute) Assessment: 1. Traumatic wound to left lower leg. 2. Nonhealing ulcer right lateral proximal leg-healed. 3. Brain tumor - received chemotherapy. Plan: The right lateral lower leg wound is now healed. She has a new traumatic wound on her proximal left lateral leg that occured a couple days ago when she ran into the corner of a box. Partially debrided the wound today. Will apply Collagen hydrogel daily with wound veil daily. Continue the Tubigrip for compression. A wound culture from 05/15/18 showed Staphylococcus hominis hominis and was placed on Dicloxacillin and has finished them. She had a total of 6 applications of Theraskin to her left lower leg, and she is now healed. Her Prealbumin from 01/25/18 was 30.8. Encourage nutritional supplementation with protein to help the healing process. She is scheduled to have her MRI Brain (to monitor her brain tumor) on 08/15/18. Followup one week. Code Visit [id number]
== END 2018-08-17 23:59 ==
LOC: WC 13:45
PROVIDERS: Family Provider Student in an Organized Health Care Education/Training Program; PCP Student in an Organized Health Care Education/Training Program; Visit Provider Surgery
DX: S80.811A Abrasion, right lower leg, initial encounter (principal); W22.8XXA Striking against or struck by other objects, initial encounter; Y92.009 Unspecified place in unspecified non-institutional (private) residence as the place of occurrence of the external cause; D49.6 Neoplasm of unspecified behavior of brain; S81.812A Laceration without foreign body, left lower leg, initial encounter
CPT/HCPCS: 11042; 97597

== ENCOUNTER 2018-08-28 09:30 | Outpatient (RCR) | payer MEDICARE, SELFPAY ==
[2018-08-18 01:03] VITALS: BP 111/70; PULSE 59; RESP 16; TEMP 36
[2018-08-22 13:23] VITALS: BP 108/69; PULSE 70; RESP 16; TEMP 36.6
--- NOTE | 2018-08-22 16:11 | PCM.WC.PN ---
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 History of Wound: Surgery 01/24/18 - 1. Surgical preparation left lower posterior leg in Achilles area with excisional debridement nonhealing ulcer and reconstruction with STSG from left flank (5 cm2). 2. Surgical preparation left lower anterior leg with excisional debridement nonhealing ulcer and reconstruction with STSG from left flank (15.75 cm2) and placement of CHELSEA NPWT device. Wound care - Thera-Skin #6. Operative culture - MRSE in both wounds. She was treated with Vancomycin and has completed the treatment. Prealbumin from 01/25/18 was 30.8. Encourage nutritional supplementation with protein to help the healing process. Today the patient denies fever. Her appetite is pretty good. She underwent HBO treatments for her compromised skin grafts and have finished the treatments without problem. She had a wound culture done on 05/15/18. It showed Staphylococcus hominis hominis and she was placed on Dicloxacillin and has finished them. Thera-skin skin substitute graft placement has been started. She has had 6 applications thus far. She also has a new onset superficial abrasion ulcer on the right lateral proximal leg. She states she bumped her leg at home. Progress of Wound: Left proximal lateral leg skin tear caused by walking into a corner of a box is almost healed. She has a new skin tear on her right lower leg from a fall, this is very superficial. Her left lower leg at the skin graft site remains healed. - Physical Exam Vital Signs Temp Pulse Resp BP 97.8 F 70 16 108/69 08/22/18 13:23 08/22/18 13:23 08/22/18 13:23 08/22/18 13:23 General: Alert, Cooperative HEENT: Atraumatic Oral: Moist Mucosa Lungs: Normal air movement Cardiovascular: Regular rate Extremities: No edema, Capillary Refill Less than 3 Seconds Skin: Ulcer/ Wound - Skin tear on left lateral leg that is improving. Has a new skin tear on right lateral leg. Wound Measurements and Assessment WC - Nurse 1 - General Ulcer Measurement Start: 08/22/18 13:22 Freq: Status: Active Protocol: Activity Type Activity Date Activity User E-Sign Co-Sign Detail Recorded Client Recorded Date Recorded By Document 08/22/18 13:23 MW [id number] 08/22/18 13:25 MW 08/22/18 13:23 Wound Center Nurse 1 [Ulcer Assessment] #25 left lateral upper leg -Combined with other wound No -Current Size (cm) - Length 0.1 -Current Size (cm) - Width 0.1 -Current Size (cm) - Depth 0.1 -Total Square Cm 0.01 -Photo Taken No -Epithelialization None Present -Tunneling No -Undermining/Tunneling No -Circular Undermining No -Exudate Amt None Present -Wound Margin Flat & Intact -Granulation Amt None Present (0 %) -Granulation Quality N/A -Slough/Fibrin Yes -Necrosis Amt Large (67-100%) -Necrotic Tissue Type Adherent Slough -Structure Exposed N/A -Texture (Riddhi-wound Skin Appearance) Assessed Localized Edema Scarring -Moisture (Riddhi-wound Skin Appearance Assessed ) Dry/Scaly -Color (Riddhi-wound Skin Appearance) Assessed -Temperature (Riddhi-wound Skin No Abnormality Appearance) (Pt Warm) -Tenderness on Palpation (Riddhi-wound No Skin Appearance) -Ulcer Cleansing Rinsed/ Irrigated with Saline -Foul Odor after Cleansing No -Anesthetic Used 4% Lidocaine Solution [Edema Assessment] -Lower Limb Edema Present Yes -Right Calf (cm) 34.0 -Right Ankle (cm) 22.2 -Left Calf (cm) 35.7 -Left Ankle (cm) 22.5 WC - Nurse 2 - General Ulcer CM Notes Start: 08/22/18 13:22 Freq: Status: Active Protocol: Activity Type Activity Date Activity User E-Sign Co-Sign Detail Recorded Client Recorded Date Recorded By Document 08/22/18 13:42 RANDY [id number] 08/22/18 13:43 RANDY 08/22/18 13:42 Wound Center Nurse 2 [Procedure/Treatment] #25 left lateral upper leg -Time 13:42 -Correct Patient Yes -Correct Side, Site, Position Yes -Correct Procedure Yes -Procedure Performed Yes -Type of Procedure Debridement -Clinical Debridement Subcutaneous -Post Debridement Size (cm) - Length 1.2 -Post Debridement Size (cm) - Width 0.8 -Post Debridement Size (cm) - Depth 0.1 -Total Square Cm 0.96 -Wound/Ulcer Outcome Not Healed -Ulcer Cleansing Rinsed/ Irrigated with Saline -Foul Odor after Cleansing No -Bioengineered Tissue No -Bleeding Controlled with Pressure -Offloading No -Treatment Response Procedure Tolerated Well [See Physician Procedure note for Specifics] Pain Scale: 0-10 Numeric [Pain] -Is Patient Pain Free? Yes Musculoskeletal: No Tenderness to Palpation of Joints or Extremities Neurological: Neuro grossly intact Psych/Mental Status: Normal Affect, Appropriate Debridement Note Post-Debridement Measurements/Treatment WC - Nurse 2 - General Ulcer CM Notes Start: 08/22/18 13:22 Freq: Status: Active Protocol: Activity Type Activity Date Activity User E-Sign Co-Sign Detail Recorded Client Recorded Date Recorded By Document 08/22/18 13:42 RANDY [id number] 08/22/18 13:43 RANDY 08/22/18 13:42 Wound Center Nurse 2 #25 left lateral upper leg -Time 13:42 -Correct Patient Yes -Correct Side, Site, Position Yes -Correct Procedure Yes -Procedure Performed Yes -Type of Procedure Debridement -Clinical Debridement Subcutaneous -Post Debridement Size (cm) - Length 1.2 -Post Debridement Size (cm) - Width 0.8 -Post Debridement Size (cm) - Depth 0.1 -Total Square Cm 0.96 -Wound/Ulcer Outcome Not Healed -Ulcer Cleansing Rinsed/ Irrigated with Saline -Foul Odor after Cleansing No -Bioengineered Tissue No -Bleeding Controlled with Pressure -Offloading No -Treatment Response Procedure Tolerated Well Pain Scale: 0-10 Numeric Is Patient Pain Free? Yes Wound debrided: Left lateral leg Laterality: Left Type of Debridement: Excisional debridement Anesthesia Used: 4% Lidocaine Solution Depth: Down to and including healthy tissue, in the subcutaneous layer Percentage of wound debrided: 100 Instrument Used: 3mm curette Tissue Removed: Subcutaneous tissue and slough Severity: Limited To Skin Breakdown Amount of bleeding with debridement: Mild Bleeding Controlled with: Pressure Patient tolerated procedure well - Additional Wound Wound debrided: Left lateral lower leg skin tear Tissue Removed: No debridement done today Assessment/Plan Active Problems (Last Updated 12/16/17 @ 17:12 by LANIE Wang Traumatic open wound of left lower leg (Acute) Traumatic open wound of right lower leg (Acute) Assessment: 1. Traumatic wound to left lower leg. 2. Nonhealing ulcer right lateral proximal leg-healed. 3. Brain tumor - received chemotherapy. Plan: The traumatic wound on her proximal left lateral leg is healing well. She has a new traumatic skin tear on right lateral lower leg from a fall on the ice last week. She states she is wearing soft samuel gaurds for protection. No debridement of right skin tear. Will apply Collagen hydrogel daily with wound veil daily to both skin tears. Continue the Tubigrip for compression. A wound culture from 05/15/18 showed Staphylococcus hominis hominis and was placed on Dicloxacillin and has finished them. She had a total of 6 applications of Theraskin to her left lower leg, and she is now healed. Her Prealbumin from 01/25/18 was 30.8. Encourage nutritional supplementation with protein to help the healing process. She had a an MRI on 08/15/18 and her oncologist would like to start chemo again because she has had an increase in her brain tumor. Her deep tissue wounds are healed. She continues to repeatedly have skin that her PCP should be able to handle if they do not heal on their own. Will have her follow up one more time next week to re-evaluate her wounds. Code Visit [id number]: [id number] Debbi subq tissue 20 sq cm/<
[2018-08-28 09:43] VITALS: BP 123/72; PULSE 64; RESP 16; TEMP 35.4
--- NOTE | 2018-08-28 20:41 | PCM.WC.PN ---
Type of Wound Date of Service: 08/28/18 Chief Complaint: Superficial abrasions bilateral legs. History of Wound: Patient's nonhealing ulcers and skin grafts that started over a year ago and required multiple surgical procedures with wound care, antibiotics and HBO treatments. She lives at home alone. Her family does visit her often. She has started wearing soft samuel guards. However she bumps into things at home a lot and occasionally will fall down. Her skin is quite thin and she develops intermittent abrasions. She has had a recent MRI Brain and the tumor has grown. It has been reported that she needs urgent chemotherapy. Progress of Wound: Superficial abrasions bilateral legs healing. - Physical Exam Vital Signs Temp Pulse Resp BP 95.7 F L 64 16 123/72 H 08/28/18 09:43 08/28/18 09:43 08/28/18 09:43 08/28/18 09:43 General: Alert, Oriented x3 HEENT: PERRLA, EOMI Oral: Moist Mucosa Neck: Supple Lungs: Clear to auscultation Cardiovascular: Regular rate, Regular Rhythm Abdomen: Soft, Non-Distended Skin: Incision - Her skin grafts bilateral legs are healed., - - superficial abrasions on her bilateral legs. Wound Measurements and Assessment WC - Nurse 1 - General Ulcer Measurement Start: 08/22/18 13:22 Freq: Status: Active Protocol: Activity Type Activity Date Activity User E-Sign Co-Sign Detail Recorded Client Recorded Date Recorded By Document 08/28/18 09:43 RANDY [id number] 08/28/18 09:55 RANDY 08/28/18 09:43 Wound Center Nurse 1 [Ulcer Assessment] 26. R mid samuel -Combined with other wound No -Current Size (cm) - Length 1 -Current Size (cm) - Width 2.5 -Current Size (cm) - Depth 0.1 -Total Square Cm 2.5 -Photo Taken Yes -Tunneling No -Undermining/Tunneling No -Circular Undermining No -Exudate Amt Small -Exudate Type Serosanguineous -Wound Margin Distinct, Outline Attached -Granulation Amt Large (67-100%) -Granulation Quality [place] -Slough/Fibrin Yes -Necrosis Amt Small (1-33%) -Necrotic Tissue Type Adherent Slough -Structure Exposed N/A -Texture (Riddhi-wound Skin Appearance) Assessed Friable -Moisture (Riddhi-wound Skin Appearance Assessed ) -Color (Riddhi-wound Skin Appearance) Assessed -Temperature (Riddhi-wound Skin No Abnormality Appearance) (Pt Warm) -Tenderness on Palpation (Riddhi-wound No Skin Appearance) -Ulcer Cleansing Rinsed/ Irrigated with Saline -Foul Odor after Cleansing No -Anesthetic Used 4% Lidocaine Solution #25 left lateral upper leg -Combined with other wound No -Current Size (cm) - Length 1.0 -Current Size (cm) - Width 0.4 -Current Size (cm) - Depth 0.1 -Total Square Cm 0.40 -Photo Taken No -Epithelialization Large 67-100% -Tunneling No -Undermining/Tunneling No -Circular Undermining No -Exudate Amt Small -Exudate Type Serosanguineous -Wound Margin Flat & Intact -Granulation Amt None Present (0 %) -Slough/Fibrin Yes -Necrosis Amt Large (67-100%) -Necrotic Tissue Type Adherent Slough -Structure Exposed N/A -Texture (Riddhi-wound Skin Appearance) Assessed Localized Edema -Moisture (Riddhi-wound Skin Appearance Assessed ) Dry/Scaly -Color (Riddhi-wound Skin Appearance) Assessed Hemosiderin Staining -Temperature (Riddhi-wound Skin No Abnormality Appearance) (Pt Warm) -Tenderness on Palpation (Riddhi-wound No Skin Appearance) -Ulcer Cleansing Rinsed/ Irrigated with Saline -Foul Odor after Cleansing No -Anesthetic Used 4% Lidocaine Solution [Edema Assessment] -Lower Limb Edema Present Yes -Right Calf (cm) 36.5 -Right Ankle (cm) 20.5 -Left Calf (cm) 36.5 -Left Ankle (cm) 22 WC - Nurse 2 - General Ulcer CM Notes Start: 08/22/18 13:22 Freq: Status: Active Protocol: Activity Type Activity Date Activity User E-Sign Co-Sign Detail Recorded Client Recorded Date Recorded By Document 08/28/18 10:29 RANDY [id number] 08/28/18 10:34 RANDY 08/28/18 10:29 Wound Center Nurse 2 [Procedure/Treatment] 26. R mid samuel -Correct Patient No -Correct Side, Site, Position No -Correct Procedure No -Procedure Performed No -Wound/Ulcer Outcome Not Healed #25 left lateral upper leg -Correct Patient No -Correct Side, Site, Position No -Correct Procedure No -Procedure Performed No -Wound/Ulcer Outcome Not Healed [See Physician Procedure note for Specifics] Pain Scale: 0-10 Numeric [Pain] -Is Patient Pain Free? Yes Neurological: Cranial nerves II-XII grossly intact Psych/Mental Status: Normal Affect, Appropriate Debridement Note Post-Debridement Measurements/Treatment WC - Nurse 2 - General Ulcer CM Notes Start: 08/22/18 13:22 Freq: Status: Active Protocol: Activity Type Activity Date Activity User E-Sign Co-Sign Detail Recorded Client Recorded Date Recorded By Document 08/22/18 13:42 [id number] 08/22/18 13:43 Document 08/28/18 10:29 [id number] 08/28/18 10:34 08/22/18 08/28/18 13:42 10:29 Wound Center Nurse 2 26. R mid samuel -Correct Patient No -Correct Side, Site, Position No -Correct Procedure No -Procedure Performed No -Wound/Ulcer Outcome Not Healed #25 left lateral upper leg -Time 13:42 -Correct Patient Yes No -Correct Side, Site, Position Yes No -Correct Procedure Yes No -Procedure Performed Yes No -Type of Procedure Debridement -Clinical Debridement Subcutaneous -Post Debridement Size (cm) - Length 1.2 -Post Debridement Size (cm) - Width 0.8 -Post Debridement Size (cm) - Depth 0.1 -Total Square Cm 0.96 -Wound/Ulcer Outcome Not Healed Not Healed -Ulcer Cleansing Rinsed/ Irrigated with Saline -Foul Odor after Cleansing No -Bioengineered Tissue No -Bleeding Controlled with Pressure -Offloading No -Treatment Response Procedure Tolerated Well Pain Scale: 0-10 Numeric Is Patient Pain Free? Yes Yes Assessment/Plan Active Problems (Last Updated 12/16/17 @ 17:12 by Sari Hawk DO) Traumatic open wound of left lower leg (Acute) Traumatic open wound of right lower leg (Acute) Assessment: 1. Superficial abrasions bilateral legs. 2. Brain tumor - received chemotherapy. Plan: Continue Collagen Hydrogel to the abrasions daily. Continue samuel guards to minimize further trauma. Part of the trauma could be related to the growth of her brain tumor. I suspect she will never be totally healed because when one abrasion heals, she will fall or bump her legs and develop another abrasion. The fear is that the brain tumor is growing. Eventually her balance will worsen and her eyesight will worsen and she will have no choice but to go to an ECF. Right now she wants to try and stay at home. So my recommendation is to proceed with the chemotherapy for the brain tumor. If ulcerations develop just like last time yanira may require additional surgery and antibiotics, then can see her again here at the Wound Center. At this time she is discharged from the Wound Center. Her PCP can monitor her abrasions at this time. Continue Collagen Hydrogel daily to the abrasions. Hopefully they will lessen as she gets the chemotherapy and the tumor shrinks as it did in the past and her balance improves. Her Prealbumin from 01/25/18 was 30.8. Encourage nutritional supplementation with protein to help the healing process. She had a an MRI on 08/15/18 and her oncologist would like to start chemo again because she has had an increase in her brain tumor. Followup on an as needed basis.
== END 2018-09-14 23:59 ==
LOC: WC 09:30
PROVIDERS: Family Provider Student in an Organized Health Care Education/Training Program; PCP Student in an Organized Health Care Education/Training Program; Visit Provider Surgery
DX: S80.811A Abrasion, right lower leg, initial encounter (principal); S81.812A Laceration without foreign body, left lower leg, initial encounter; W22.8XXA Striking against or struck by other objects, initial encounter; Y92.009 Unspecified place in unspecified non-institutional (private) residence as the place of occurrence of the external cause; D49.6 Neoplasm of unspecified behavior of brain
CPT/HCPCS: 11042; 99214; G0463

== ENCOUNTER 2018-11-13 08:56 | Outpatient (RCR) | payer MEDICARE, SELFPAY ==
[2018-11-13 08:45] VITALS: BP 141/96; PULSE 67; RESP 18; TEMP 35.8
--- NOTE | 2018-11-13 17:36 | PCM.WC.PN ---
Type of Wound Date of Service: 11/13/18 Chief Complaint: Superficial abrasion right lateral leg and left lateral leg. History of Wound: Patient has had nonhealing ulcers on her lower extremities that required surgery with skin grafts, and wound care, and antibiotics and HBO treatments. They resulted initially from her chemotherapy for her brain tumor. They have finally healed earlier this year and she restarted her chemotherapy. She lives at home alone. Her family does visit her often. She has started wearing soft samuel guards. However she bumps into things at home a lot and occasionally will fall down. Her skin is quite thin and she develops intermittent abrasions. Today she presents with abrasions on her right lateral leg and left lateral leg. Progress of Wound: Stable. - Physical Exam Vital Signs Temp Pulse Resp BP 96.4 F L 67 18 141/96 H 11/13/18 08:45 11/13/18 08:45 11/13/18 08:45 11/13/18 08:45 Wound Measurements and Assessment WC - Nurse 1 - General Ulcer Measurement Start: 11/13/18 08:45 Freq: Status: Active Protocol: Activity Type Activity Date Activity User E-Sign Co-Sign Detail Recorded Client Recorded Date Recorded By Document 11/13/18 08:45 MW [id number] 11/13/18 08:53 MW 11/13/18 08:45 Wound Center Nurse 1 [Ulcer Assessment] #27 Right lateral LE -Combined with other wound No -Current Size (cm) - Length 3.0 -Current Size (cm) - Width 12.5 -Current Size (cm) - Depth 0.1 -Total Square Cm 37.50 -Date of Last Picture (Recall this 11/13/18 field) -Photo Taken Yes -Tunneling No -Undermining/Tunneling No -Circular Undermining No -Exudate Amt Medium -Exudate Type Serous -Wound Margin Flat & Intact -Granulation Amt Small (1-33%) -Granulation Quality [place] -Slough/Fibrin No -Necrosis Amt Large (67-100%) -Necrotic Tissue Type Adherent Slough -Structure Exposed N/A -Texture (Riddhi-wound Skin Appearance) Assessed Scarring -Moisture (Riddhi-wound Skin Appearance No Abnormality ) Assessed -Color (Riddhi-wound Skin Appearance) Assessed Hemosiderin Staining -Temperature (Riddhi-wound Skin No Abnormality Appearance) (Pt Warm) -Tenderness on Palpation (Riddhi-wound Yes Skin Appearance) -Ulcer Cleansing Rinsed/ Irrigated with Saline -Foul Odor after Cleansing No -Anesthetic Used 4% Lidocaine Solution [Edema Assessment] -Lower Limb Edema Present Yes -Right Calf (cm) 37.0 -Right Ankle (cm) 21.5 WC - Nurse 2 - General Ulcer CM Notes Start: 11/13/18 08:45 Freq: Status: Active Protocol: Activity Type Activity Date Activity User E-Sign Co-Sign Detail Recorded Client Recorded Date Recorded By Document 11/13/18 09:42 RANDY [id number] 11/13/18 09:44 RANDY 11/13/18 09:42 Wound Center Nurse 2 [Procedure/Treatment] 28-left lateral leg wound -Time 09:43 -Correct Patient Yes -Correct Side, Site, Position Yes -Correct Procedure Yes -Procedure Performed Yes -Type of Procedure Debridement -Clinical Debridement Selective -Post Debridement Size (cm) - Length 6.0 -Post Debridement Size (cm) - Width 1.0 -Post Debridement Size (cm) - Depth 0.1 -Total Square Cm 6.00 -Wound/Ulcer Outcome Not Healed -Ulcer Cleansing Rinsed/ Irrigated with Saline -Foul Odor after Cleansing No -Bioengineered Tissue No -Bleeding Controlled with Pressure -Offloading No -Treatment Response Procedure Tolerated Well #27 Right lateral LE -Time 09:42 -Correct Patient Yes -Correct Side, Site, Position Yes -Correct Procedure Yes -Procedure Performed Yes -Type of Procedure Debridement -Clinical Debridement Selective -Post Debridement Size (cm) - Length 3.0 -Post Debridement Size (cm) - Width 12.6 -Post Debridement Size (cm) - Depth 0.1 -Total Square Cm 37.80 -Wound/Ulcer Outcome Not Healed -Ulcer Cleansing Rinsed/ Irrigated with Saline -Foul Odor after Cleansing No -Bioengineered Tissue No -Bleeding Controlled with Pressure -Offloading No -Treatment Response Procedure Tolerated Well [See Physician Procedure note for Specifics] Pain Scale: 0-10 Numeric [Pain] -Is Patient Pain Free? Yes Debridement Note Post-Debridement Measurements/Treatment WC - Nurse 2 - General Ulcer CM Notes Start: 11/13/18 08:45 Freq: Status: Active Protocol: Activity Type Activity Date Activity User E-Sign Co-Sign Detail Recorded Client Recorded Date Recorded By Document 11/13/18 09:42 [id number] 11/13/18 09:44 11/13/18 09:42 Wound Center Nurse 2 28-left lateral leg wound -Time 09:43 -Correct Patient Yes -Correct Side, Site, Position Yes -Correct Procedure Yes -Procedure Performed Yes -Type of Procedure Debridement -Clinical Debridement Selective -Post Debridement Size (cm) - Length 6.0 -Post Debridement Size (cm) - Width 1.0 -Post Debridement Size (cm) - Depth 0.1 -Total Square Cm 6.00 -Wound/Ulcer Outcome Not Healed -Ulcer Cleansing Rinsed/ Irrigated with Saline -Foul Odor after Cleansing No -Bioengineered Tissue No -Bleeding Controlled with Pressure -Offloading No -Treatment Response Procedure Tolerated Well #27 Right lateral LE -Time 09:42 -Correct Patient Yes -Correct Side, Site, Position Yes -Correct Procedure Yes -Procedure Performed Yes -Type of Procedure Debridement -Clinical Debridement Selective -Post Debridement Size (cm) - Length 3.0 -Post Debridement Size (cm) - Width 12.6 -Post Debridement Size (cm) - Depth 0.1 -Total Square Cm 37.80 -Wound/Ulcer Outcome Not Healed -Ulcer Cleansing Rinsed/ Irrigated with Saline -Foul Odor after Cleansing No -Bioengineered Tissue No -Bleeding Controlled with Pressure -Offloading No -Treatment Response Procedure Tolerated Well Pain Scale: 0-10 Numeric Is Patient Pain Free? Yes Wound debrided: #27 Right lateral leg. Laterality: Right Wound Grade/Stage: 1. Type of Debridement: Selective debridement Anesthesia Used: 4% Lidocaine Solution Depth: Down to and including healthy tissue - dermis is present and viable. Percentage of wound debrided: 100 Instrument Used: 3mm curette Tissue Removed: some dermis. Severity: Limited To Skin Breakdown - dermis is present and viable. Amount of bleeding with debridement: Mild Bleeding Controlled with: Pressure Patient tolerated procedure well - Additional Wound Wound debrided: #28 Left lateral leg. Laterality: Left Wound Grade/Stage: 1. Type of Debridement: Selective debridement Anesthesia Used: 4% Lidocaine Solution Depth: Down to and including healthy tissue - dermis is present and viable. Percentage of wound debrided: 100 Instrument Used: 3mm curette Tissue Removed: some dermis. Severity: Limited To Skin Breakdown - dermis is present and viable. Amount of bleeding with debridement: Mild Bleeding Controlled with: Pressure Patient tolerated procedure: Patient tolerated procedure well Assessment/Plan Assessment: 1. Superficial abrasion right lateral leg and left lateral leg. 2. Brain tumor - received chemotherapy. Plan: Continue Collagen Hydrogel to the abrasions daily followed by tubigrip to minimize swelling. Continue samuel guards to minimize further trauma. I suspect she will never be totally healed because when one abrasion heals, she will fall or bump her legs and develop another abrasion. She has restarted her chemotherapy for her brain tumor because it has grown. So the chemotherapy will make it easier to get abrasions when she does fall. Eventually her balance will worsen and her eyesight will worsen and she will have no choice but to go to an ECF. Right now she wants to try and stay at home. Her Prealbumin from 01/25/18 was 30.8. Encourage nutritional supplementation with protein to help the healing process. If healing is suboptimal, will obtain a wound culture. A positive culture will necessitate antibiotic therapy. Followup one week.
== END 2018-11-14 23:59 ==
LOC: WC 08:56
PROVIDERS: Family Provider Student in an Organized Health Care Education/Training Program; PCP Student in an Organized Health Care Education/Training Program; Visit Provider Surgery
DX: S80.811A Abrasion, right lower leg, initial encounter (principal); W22.8XXA Striking against or struck by other objects, initial encounter; D49.6 Neoplasm of unspecified behavior of brain; S80.812A Abrasion, left lower leg, initial encounter
CPT/HCPCS: 97597; 97598

== ENCOUNTER 2018-12-04 08:45 | Outpatient (RCR) | payer MEDICARE, SELFPAY ==
[2018-11-15 01:59] VITALS: BP 141/96; PULSE 67; RESP 18; TEMP 35.8
[2018-11-20 09:17] VITALS: BP 138/95; PULSE 62; RESP 20; TEMP 36.3
--- NOTE | 2018-11-20 16:27 | PCM.WC.PN ---
(1) Abrasion of right leg Status: Chronic Code(s): S80.811A - Abrasion, right lower leg, initial encounter (2) Abrasion of left leg Status: Chronic Code(s): S80.812A - Abrasion, left lower leg, initial encounter (3) Traumatic open wound of left lower leg Status: Chronic Code(s): S81.802A - Unspecified open wound, left lower leg, initial encounter (4) Traumatic open wound of right lower leg Status: Chronic Code(s): S81.801A - Unspecified open wound, right lower leg, initial encounter (5) Glioblastoma multiforme Status: Chronic Code(s): C71.9 - Malignant neoplasm of brain, unspecified (6) Debility, unspecified Status: Chronic Code(s): R53.81 - Other malaise Type of Wound Date of Service: 11/20/18 Chief Complaint: Superficial abrasions bilateral legs. History of Wound: Patient's nonhealing ulcers and skin grafts that started over a year ago and required multiple surgical procedures with wound care, antibiotics and HBO treatments. She lives at home alone. Her family does visit her often. She has started wearing soft samuel guards. However she bumps into things at home a lot and occasionally will fall down. Her skin is quite thin and she develops intermittent abrasions. She has had a recent MRI Brain and the tumor has grown. It has been reported that she needs urgent chemotherapy, which she is receiving. Wound care is collagen hydrogel covered with adaptic. Progress of Wound: Improved. - Physical Exam Vital Signs Temp Pulse Resp BP 97.4 F L 62 20 H 138/95 H 11/20/18 09:17 11/20/18 09:17 11/20/18 09:17 11/20/18 09:17 General: Alert, Oriented x3, Cooperative, - - Poor short-term memory HEENT: Atraumatic Oral: Moist Mucosa Lungs: Normal air movement Cardiovascular: Regular rate Extremities: No edema, No Calf Tenderness, Diminished Peripheral Pulses Skin: Ulcer/ Wound - Bilateral traumatic abrasions from a fall. Wound Measurements and Assessment WC - Nurse 1 - General Ulcer Measurement Start: 11/20/18 09:17 Freq: Status: Active Protocol: Activity Type Activity Date Activity User E-Sign Co-Sign Detail Recorded Client Recorded Date Recorded By Document 11/20/18 09:17 CAROLINE [id number] 11/20/18 09:26 DL 11/20/18 09:17 Wound Center Nurse 1 [Ulcer Assessment] 28-left lateral leg wound -Current Size (cm) - Length 6 -Current Size (cm) - Width 0.7 -Current Size (cm) - Depth 0.1 -Total Square Cm 4.2 -Photo Taken No -Exudate Amt None Present -Wound Margin Flat & Intact -Granulation Amt Medium (34-66%) -Granulation Quality Red -Necrosis Amt Medium (34-66%) -Necrotic Tissue Type Adherent Slough -Structure Exposed N/A -Texture (Riddhi-wound Skin Appearance) Localized Edema Scarring -Moisture (Riddhi-wound Skin Appearance No Abnormality ) -Color (Riddhi-wound Skin Appearance) Hemosiderin Staining -Temperature (Riddhi-wound Skin No Abnormality Appearance) (Pt Warm) -Tenderness on Palpation (Riddhi-wound No Skin Appearance) -Ulcer Cleansing Wound Cleanser -Foul Odor after Cleansing No -Anesthetic Used 5% Lidocaine Gel #27 Right lateral LE -Current Size (cm) - Length 10 -Current Size (cm) - Width 1.8 -Current Size (cm) - Depth 0.2 -Total Square Cm 18.0 -Photo Taken No -Exudate Amt Small -Exudate Type Serosanguineous -Wound Margin Distinct, Outline Attached -Granulation Amt Medium (34-66%) -Granulation Quality Red -Necrosis Amt Medium (34-66%) -Necrotic Tissue Type Adherent Slough -Texture (Riddhi-wound Skin Appearance) Localized Edema Scarring -Moisture (Riddhi-wound Skin Appearance No Abnormality ) -Color (Riddhi-wound Skin Appearance) Hemosiderin Staining -Temperature (Riddhi-wound Skin No Abnormality Appearance) (Pt Warm) -Tenderness on Palpation (Riddhi-wound No Skin Appearance) -Ulcer Cleansing Wound Cleanser -Foul Odor after Cleansing No -Anesthetic Used 4% Lidocaine Solution 5% Lidocaine Gel [Edema Assessment] -Right Calf (cm) 34.8 -Right Ankle (cm) 19.4 -Left Calf (cm) 33.5 -Left Ankle (cm) 20.5 WC - Nurse 2 - General Ulcer CM Notes Start: 11/20/18 09:17 Freq: Status: Active Protocol: Activity Type Activity Date Activity User E-Sign Co-Sign Detail Recorded Client Recorded Date Recorded By Document 11/20/18 10:20 RANDY [id number] 11/20/18 10:23 RANDY 11/20/18 10:20 Wound Center Nurse 2 [Procedure/Treatment] 29-right superior lateral leg -Time 10:22 -Correct Patient Yes -Correct Side, Site, Position Yes -Correct Procedure Yes -Procedure Performed Yes -Type of Procedure Debridement -Clinical Debridement Subcutaneous -Post Debridement Size (cm) - Length 1 -Post Debridement Size (cm) - Width 2.5 -Post Debridement Size (cm) - Depth 0.2 -Total Square Cm 2.5 -Wound/Ulcer Outcome Not Healed -Ulcer Cleansing Rinsed/ Irrigated with Saline -Foul Odor after Cleansing No -Bioengineered Tissue No -Bleeding Controlled with Pressure -Offloading No -Treatment Response Procedure Tolerated Well 28-left lateral leg wound -Time 10:20 -Correct Patient Yes -Correct Side, Site, Position Yes -Correct Procedure Yes -Procedure Performed Yes -Type of Procedure Debridement -Clinical Debridement Subcutaneous -Post Debridement Size (cm) - Length 5.5 -Post Debridement Size (cm) - Width 1.4 -Post Debridement Size (cm) - Depth 0.2 -Total Square Cm 7.70 -Wound/Ulcer Outcome Not Healed -Ulcer Cleansing Rinsed/ Irrigated with Saline -Foul Odor after Cleansing No -Bioengineered Tissue No -Bleeding Controlled with Pressure -Offloading No -Treatment Response Procedure Tolerated Well #27 Right lateral LE -Time 10:21 -Correct Patient Yes -Correct Side, Site, Position Yes -Correct Procedure Yes -Procedure Performed Yes -Type of Procedure Debridement -Clinical Debridement Subcutaneous -Post Debridement Size (cm) - Length 4 -Post Debridement Size (cm) - Width 1.2 -Post Debridement Size (cm) - Depth 0.3 -Total Square Cm 4.8 -Wound/Ulcer Outcome Not Healed -Ulcer Cleansing Rinsed/ Irrigated with Saline -Foul Odor after Cleansing No -Bioengineered Tissue No -Bleeding Controlled with Pressure -Offloading No -Treatment Response Procedure Tolerated Well [See Physician Procedure note for Specifics] Pain Scale: 0-10 Numeric [Pain] -Is Patient Pain Free? Yes Musculoskeletal: No Tenderness to Palpation of Joints or Extremities Neurological: Neuro grossly intact Psych/Mental Status: Normal Affect Debridement Note Post-Debridement Measurements/Treatment WC - Nurse 2 - General Ulcer CM Notes Start: 11/20/18 09:17 Freq: Status: Active Protocol: Activity Type Activity Date Activity User E-Sign Co-Sign Detail Recorded Client Recorded Date Recorded By Document 11/20/18 10:20 RANDY [id number] 11/20/18 10:23 RANDY 11/20/18 10:20 Wound Center Nurse 2 29-right superior lateral leg -Time 10:22 -Correct Patient Yes -Correct Side, Site, Position Yes -Correct Procedure Yes -Procedure Performed Yes -Type of Procedure Debridement -Clinical Debridement Subcutaneous -Post Debridement Size (cm) - Length 1 -Post Debridement Size (cm) - Width 2.5 -Post Debridement Size (cm) - Depth 0.2 -Total Square Cm 2.5 -Wound/Ulcer Outcome Not Healed -Ulcer Cleansing Rinsed/ Irrigated with Saline -Foul Odor after Cleansing No -Bioengineered Tissue No -Bleeding Controlled with Pressure -Offloading No -Treatment Response Procedure Tolerated Well 28-left lateral leg wound -Time 10:20 -Correct Patient Yes -Correct Side, Site, Position Yes -Correct Procedure Yes -Procedure Performed Yes -Type of Procedure Debridement -Clinical Debridement Subcutaneous -Post Debridement Size (cm) - Length 5.5 -Post Debridement Size (cm) - Width 1.4 -Post Debridement Size (cm) - Depth 0.2 -Total Square Cm 7.70 -Wound/Ulcer Outcome Not Healed -Ulcer Cleansing Rinsed/ Irrigated with Saline -Foul Odor after Cleansing No -Bioengineered Tissue No -Bleeding Controlled with Pressure -Offloading No -Treatment Response Procedure Tolerated Well #27 Right lateral LE -Time 10:21 -Correct Patient Yes -Correct Side, Site, Position Yes -Correct Procedure Yes -Procedure Performed Yes -Type of Procedure Debridement -Clinical Debridement Subcutaneous -Post Debridement Size (cm) - Length 4 -Post Debridement Size (cm) - Width 1.2 -Post Debridement Size (cm) - Depth 0.3 -Total Square Cm 4.8 -Wound/Ulcer Outcome Not Healed -Ulcer Cleansing Rinsed/ Irrigated with Saline -Foul Odor after Cleansing No -Bioengineered Tissue No -Bleeding Controlled with Pressure -Offloading No -Treatment Response Procedure Tolerated Well Pain Scale: 0-10 Numeric Is Patient Pain Free? Yes Wound debrided: right lateral lower leg Laterality: Right Type of Debridement: Excisional debridement Anesthesia Used: 5% Lidocaine Gel Depth: Down to and including healthy tissue, in the subcutaneous layer Percentage of wound debrided: 100 Instrument Used: 7mm curette Tissue Removed: Subcutaneous tissue and slough Severity: Limited To Skin Breakdown Amount of bleeding with debridement: Mild Bleeding Controlled with: Pressure Patient tolerated procedure well - Additional Wound Wound debrided: Left lateral lower leg Laterality: Left Type of Debridement: Excisional debridement Anesthesia Used: 5% Lidocaine Gel Depth: Down to and including healthy tissue, in the subcutaneous layer Percentage of wound debrided: 100 Instrument Used: 7mm curette Tissue Removed: Subcutaneous tissue and slough Severity: Limited To Skin Breakdown Amount of bleeding with debridement: Mild Bleeding Controlled with: Pressure Patient tolerated procedure: Patient tolerated procedure well Assessment/Plan Assessment: 1. Superficial abrasions bilateral legs. 2. Brain tumor - received chemotherapy. Plan: Continue Collagen Hydrogel to the abrasions daily. Continue samuel guards to minimize further trauma. Part of the trauma could be related to the growth of her brain tumor. I suspect she will never be totally healed because when one abrasion heals, she will fall or bump her legs and develop another abrasion. The fear is that the brain tumor is growing. Eventually her balance will worsen and her eyesight will worsen and she will have no choice but to go to an ECF. Right now she wants to try and stay at home. So my recommendation is to proceed with the chemotherapy for the brain tumor. Hopefully with the chemotherapy the tumor shrinks as it did in the past and her balance improves. Her Prealbumin from 01/25/18 was 30.8. Encourage nutritional supplementation with protein to help the healing process. She had a an MRI on 08/15/18 and her oncologist would like to start chemo again because she has had an increase in her brain tumor. Followup in one week. Code Visit [id number]: [id number] Debbi subq tissue 20 sq cm/<
[2018-12-04 08:38] VITALS: BP 123/94; PULSE 62; RESP 18; TEMP 36.3
--- NOTE | 2018-12-04 19:59 | PCM.WC.PN ---
Type of Wound Date of Service: 12/04/18 Chief Complaint: Nonhealing traumatic wounds left lateral leg and right lateral leg. History of Wound: Patient has had nonhealing ulcers on her lower extremities that required surgery with skin grafts, and wound care, and antibiotics and HBO treatments. They resulted initially from her chemotherapy for her brain tumor. They have finally healed earlier this year and she restarted her chemotherapy. She lives at home alone. Her family does visit her. She has started wearing soft samuel guards. However she bumps into things at home a lot and occasionally will fall down. Her skin is quite thin and she develops intermittent abrasions and wounds. Because of these wounds, her chemotherapy has been put on hold according to the patient. She states the chemotherapy that she did receive recently has decreased the tumor at this point. Today she denies fever. Her appetite is ok. She also has chronic swelling in her legs from chronic venous disease and insufficiency. This chronic swelling will thin the skin as well and contribute to the nonhealing wounds. She has recently fallen again and has a new onset wound in the right superolateral leg area. Progress of Wound: Extended into the subcutaneous tissue. - Physical Exam Vital Signs Temp Pulse Resp BP 97.4 F L 62 18 123/94 H 12/04/18 08:38 12/04/18 08:38 12/04/18 08:38 12/04/18 08:38 Wound Measurements and Assessment WC - Nurse 1 - General Ulcer Measurement Start: 11/20/18 09:17 Freq: Status: Active Protocol: Activity Type Activity Date Activity User E-Sign Co-Sign Detail Recorded Client Recorded Date Recorded By Document 12/04/18 08:38 AN [id number] 12/04/18 08:58 AN 12/04/18 08:38 Wound Center Nurse 1 [Ulcer Assessment] 29-right superior lateral leg -Current Size (cm) - Length 0.1 -Current Size (cm) - Width 0.1 -Current Size (cm) - Depth 0.1 -Total Square Cm 0.01 -Classification - Thickness Unclassifiable (Eschar Covered ) 28-left lateral leg wound -Current Size (cm) - Length 1.2 -Current Size (cm) - Width 1.5 -Current Size (cm) - Depth 0.1 -Total Square Cm 1.80 -Classification - Thickness Full Thickness without Exposed Support Structure -Exudate Amt Small -Exudate Type Serosanguineous -Wound Margin Distinct, Outline Attached -Granulation Amt Medium (34-66%) -Granulation Quality Red -Slough/Fibrin Yes -Necrosis Amt Medium (34-66%) -Necrotic Tissue Type Adherent Slough -Structure Exposed None/Limited to Skin Breakdown -Texture (Riddhi-wound Skin Appearance) Assessed -Moisture (Riddhi-wound Skin Appearance Assessed ) -Color (Riddhi-wound Skin Appearance) Assessed Erythema -Temperature (Riddhi-wound Skin No Abnormality Appearance) (Pt Warm) -Tenderness on Palpation (Riddhi-wound No Skin Appearance) -Ulcer Cleansing Rinsed/ Irrigated with Saline -Foul Odor after Cleansing No -Anesthetic Used 4% Lidocaine Solution #27 Right lateral LE -Current Size (cm) - Length 1.7 -Current Size (cm) - Width 0.8 -Current Size (cm) - Depth 0.2 -Total Square Cm 1.36 -Classification - Thickness Full Thickness without Exposed Support Structure -Exudate Amt Small -Exudate Type Serosanguineous -Wound Margin Distinct, Outline Attached -Granulation Amt Medium (34-66%) -Granulation Quality Red -Slough/Fibrin Yes -Necrosis Amt Medium (34-66%) -Necrotic Tissue Type Adherent Slough -Structure Exposed None/Limited to Skin Breakdown -Texture (Riddhi-wound Skin Appearance) Assessed -Moisture (Riddhi-wound Skin Appearance Assessed ) -Color (Riddhi-wound Skin Appearance) Assessed -Temperature (Riddhi-wound Skin No Abnormality Appearance) (Pt Warm) -Tenderness on Palpation (Riddhi-wound No Skin Appearance) -Ulcer Cleansing Rinsed/ Irrigated with Saline -Foul Odor after Cleansing No -Anesthetic Used 4% Lidocaine Solution [Edema Assessment] -Right Calf (cm) 35.5 -Right Ankle (cm) 21.0 -Left Calf (cm) 35 -Left Ankle (cm) 21.5 WC - Nurse 2 - General Ulcer CM Notes Start: 11/20/18 09:17 Freq: Status: Active Protocol: Activity Type Activity Date Activity User E-Sign Co-Sign Detail Recorded Client Recorded Date Recorded By Document 12/04/18 09:24 RANDY [id number] 12/04/18 09:29 RANDY 12/04/18 09:24 Wound Center Nurse 2 [Procedure/Treatment] 29-right superior lateral leg -Time 09:24 -Correct Patient Yes -Correct Side, Site, Position Yes -Correct Procedure Yes -Procedure Performed Yes -Type of Procedure Debridement -Clinical Debridement Subcutaneous -Post Debridement Size (cm) - Length 0.5 -Post Debridement Size (cm) - Width 0.3 -Post Debridement Size (cm) - Depth 0.2 -Total Square Cm 0.15 -Wound/Ulcer Outcome Not Healed -Ulcer Cleansing Rinsed/ Irrigated with Saline -Foul Odor after Cleansing No -Bioengineered Tissue No -Bleeding Controlled with Pressure -Offloading No -Treatment Response Procedure Tolerated Well 28-left lateral leg wound -Time 09:24 -Correct Patient Yes -Correct Side, Site, Position Yes -Correct Procedure Yes -Procedure Performed Yes -Type of Procedure Debridement -Clinical Debridement Subcutaneous -Post Debridement Size (cm) - Length 2.8 -Post Debridement Size (cm) - Width 1.0 -Post Debridement Size (cm) - Depth 0.9 -Total Square Cm 2.80 -Wound/Ulcer Outcome Not Healed -Ulcer Cleansing Rinsed/ Irrigated with Saline -Foul Odor after Cleansing No -Bioengineered Tissue No -Bleeding Controlled with Pressure -Offloading No #27 Right lateral LE -Time 09:25 -Correct Patient Yes -Correct Side, Site, Position Yes -Correct Procedure Yes -Procedure Performed Yes -Type of Procedure Debridement -Clinical Debridement Subcutaneous -Post Debridement Size (cm) - Length 3.0 -Post Debridement Size (cm) - Width 3.8 -Post Debridement Size (cm) - Depth 0.5 -Total Square Cm 11.40 -Wound/Ulcer Outcome Not Healed -Ulcer Cleansing Rinsed/ Irrigated with Saline -Foul Odor after Cleansing No -Bioengineered Tissue No -Bleeding Controlled with Pressure -Offloading No -Treatment Response Procedure Tolerated Well [See Physician Procedure note for Specifics] Pain Scale: 0-10 Numeric [Pain] -Is Patient Pain Free? Yes Debridement Note Post-Debridement Measurements/Treatment WC - Nurse 2 - General Ulcer CM Notes Start: 11/20/18 09:17 Freq: Status: Active Protocol: Activity Type Activity Date Activity User E-Sign Co-Sign Detail Recorded Client Recorded Date Recorded By Document 11/20/18 10:20 RANDY [id number] 11/20/18 10:23 JF Document 12/04/18 09:24 RANDY [id number] 12/04/18 09:29 JF 11/20/18 12/04/18 10:20 09:24 Wound Center Nurse 2 29-right superior lateral leg -Time 10:22 09:24 -Correct Patient Yes Yes -Correct Side, Site, Position Yes Yes -Correct Procedure Yes Yes -Procedure Performed Yes Yes -Type of Procedure Debridement Debridement -Clinical Debridement Subcutaneous Subcutaneous -Post Debridement Size (cm) - Length 1 0.5 -Post Debridement Size (cm) - Width 2.5 0.3 -Post Debridement Size (cm) - Depth 0.2 0.2 -Total Square Cm 2.5 0.15 -Wound/Ulcer Outcome Not Healed Not Healed -Ulcer Cleansing Rinsed/ Rinsed/ Irrigated with Irrigated with Saline Saline -Foul Odor after Cleansing No No -Bioengineered Tissue No No -Bleeding Controlled with Pressure Pressure -Offloading No No -Treatment Response Procedure Procedure Tolerated Well Tolerated Well 28-left lateral leg wound -Time 10:20 09:24 -Correct Patient Yes Yes -Correct Side, Site, Position Yes Yes -Correct Procedure Yes Yes -Procedure Performed Yes Yes -Type of Procedure Debridement Debridement -Clinical Debridement Subcutaneous Subcutaneous -Post Debridement Size (cm) - Length 5.5 2.8 -Post Debridement Size (cm) - Width 1.4 1.0 -Post Debridement Size (cm) - Depth 0.2 0.9 -Total Square Cm 7.70 2.80 -Wound/Ulcer Outcome Not Healed Not Healed -Ulcer Cleansing Rinsed/ Rinsed/ Irrigated with Irrigated with Saline Saline -Foul Odor after Cleansing No No -Bioengineered Tissue No No -Bleeding Controlled with Pressure Pressure -Offloading No No -Treatment Response Procedure Tolerated Well #27 Right lateral LE -Time 10:21 09:25 -Correct Patient Yes Yes -Correct Side, Site, Position Yes Yes -Correct Procedure Yes Yes -Procedure Performed Yes Yes -Type of Procedure Debridement Debridement -Clinical Debridement Subcutaneous Subcutaneous -Post Debridement Size (cm) - Length 4 3.0 -Post Debridement Size (cm) - Width 1.2 3.8 -Post Debridement Size (cm) - Depth 0.3 0.5 -Total Square Cm 4.8 11.40 -Wound/Ulcer Outcome Not Healed Not Healed -Ulcer Cleansing Rinsed/ Rinsed/ Irrigated with Irrigated with Saline Saline -Foul Odor after Cleansing No No -Bioengineered Tissue No No -Bleeding Controlled with Pressure Pressure -Offloading No No -Treatment Response Procedure Procedure Tolerated Well Tolerated Well Pain Scale: 0-10 Numeric Is Patient Pain Free? Yes Yes Wound debrided: #27 Right lateral leg. Laterality: Right Wound Grade/Stage: 2. Type of Debridement: Excisional debridement Anesthesia Used: 4% Lidocaine Solution Depth: Down to and including healthy tissue, in the subcutaneous layer Percentage of wound debrided: 100 Instrument Used: 3mm curette Tissue Removed: subcutaneous tissue. Severity: Fat Layer Exposed Amount of bleeding with debridement: Mild Bleeding Controlled with: Pressure Patient tolerated procedure well - Additional Wound Wound debrided: #28 Left lateral leg. Laterality: Left Wound Grade/Stage: 2. Type of Debridement: Excisional debridement Anesthesia Used: 4% Lidocaine Solution Depth: Down to and including healthy tissue, in the subcutaneous layer Percentage of wound debrided: 100 Instrument Used: 3mm curette Tissue Removed: subcutaneous tissue. Severity: Fat Layer Exposed Amount of bleeding with debridement: Mild Bleeding Controlled with: Pressure Patient tolerated procedure: Patient tolerated procedure well - Additional Wound Wound debrided: #29 Right superolateral leg. Laterality: Right Wound Grade/Stage: 2. Type of Debridement: Excisional debridement Anesthesia Used: 4% Lidocaine Solution Depth: Down to and including healthy tissue, in the subcutaneous layer Percentage of wound debrided: 100 Instrument Used: 3mm curette Tissue Removed: subcutaneous tissue. Severity: Fat Layer Exposed Amount of bleeding with debridement: Mild Bleeding Controlled with: Pressure Patient tolerated procedure: Patient tolerated procedure well Assessment/Plan Assessment: 1. Nonhealing traumatic wound left lateral leg. 2. Nonhealing traumatic wound right lateral leg. 3. Nonhealing traumatic wound right superolateral leg. 4. Chronic venous disease with insufficiency. 5. Brain tumor - received chemotherapy. Plan: Continue Collagen Hydrogel to the wounds daily followed by tubigrip for compression to minimize swelling and to help with the healing process from her chronic venous disease and insufficiency. Continue samuel guards to minimize further trauma. I suspect she will never be totally healed because when one traumatic wound and ulcer heals, she will fall or bump her legs and develop another wound and ulcer. She had restarted her chemotherapy for her brain tumor because it has grown. She was told the chemotherapy has helped to decrease the tumor at this time as the chemotherapy was stopped because of the new onset wounds. Eventually her balance will worsen and her eyesight will worsen and she will have no choice but to go to an [facility]. Right now she wants to try and stay at home. Her Prealbumin from 01/25/18 was 30.8. Encourage nutritional supplementation with protein to help the healing process. If healing is suboptimal, will obtain a wound culture. A positive culture will necessitate antibiotic therapy. To try and speed up the healing process, she would be a candidate for PuraPly Antimicrobial Wound Matrix. Will check with her insurance for medical approval. Followup 2 weeks.
== END 2018-12-15 23:59 ==
LOC: WC 08:45
PROVIDERS: Family Provider Student in an Organized Health Care Education/Training Program; PCP Student in an Organized Health Care Education/Training Program; Visit Provider Surgery
DX: S80.811A Abrasion, right lower leg, initial encounter (principal); S80.812A Abrasion, left lower leg, initial encounter; W22.8XXA Striking against or struck by other objects, initial encounter; C71.9 Malignant neoplasm of brain, unspecified; I73.9 Peripheral vascular disease, unspecified
CPT/HCPCS: 11042

== ENCOUNTER 2019-01-08 08:45 | Outpatient (RCR) | payer MEDICARE, SELFPAY ==
[2018-12-16 01:13] VITALS: BP 123/94; PULSE 62; RESP 18; TEMP 36.3
[2018-12-18 08:43] VITALS: BP 124/92; PULSE 75; RESP 20; TEMP 36.4
--- NOTE | 2018-12-18 13:07 | PN.PCM_ITS ---
(1) Skin tear of left forearm without complication Status: Acute Code(s): S51.812A - Laceration without foreign body of left forearm, initial encounter (2) Open wound of left knee Status: Acute Code(s): S81.002A - Unspecified open wound, left knee, initial encounter (3) Traumatic open wound of left lower leg Status: Chronic Code(s): S81.802A - Unspecified open wound, left lower leg, initial encounter (4) Traumatic open wound of right lower leg Status: Chronic Code(s): S81.801A - Unspecified open wound, right lower leg, initial encounter (5) Glioblastoma multiforme Status: Chronic Code(s): C71.9 - Malignant neoplasm of brain, unspecified (6) Brain tumor Status: Chronic Code(s): D49.6 - Neoplasm of unspecified behavior of brain (7) Debility, unspecified Status: Chronic Code(s): R53.81 - Other malaise Type of Wound Date of Service: 12/18/18 Chief Complaint: Superficial abrasions bilateral legs. History of Wound: Patient's nonhealing ulcers and skin grafts that started over a year ago and required multiple surgical procedures with wound care, antibiotics and HBO treatments. She lives at home alone. Her family does visit her often. She has started wearing soft samuel guards. However she bumps into t hings at home a lot and occasionally will fall down. Her skin is quite thin and she develops intermittent abrasions. She has had a recent MRI Brain and the tumor has grown. It has been reported that she needs urgent chemotherapy, which she is receiving. Wound care is collagen hydrogel covered with adaptic. Progress of Wound: Right lateral lower leg and left lateral leg is improved. She has new wounds on right forearm and right knee from falling at home and hitting areas on the corner of boxes. - Physical Exam Vital Signs Temp Pulse Resp BP 97.6 F L 75 20 H 124/92 H 12/18/18 08:43 12/18/18 08:43 12/18/18 08:43 12/18/18 08:43 General: Alert, No apparent distress, Well nourished, Confused - Having increased memory issues since they had to stop her chemo due to all her open wounds HEENT: Atraumatic Oral: Moist Mucosa Lungs: Normal air movement Cardiovascular: Regular rate Extremities: No edema, Capillary Refill Less than 3 Seconds Skin: Ulcer/ Wound - New wounds on left forearm and left knee from falling and hitting boxes. The wounds on her left lateral lower leg and right lateral lower leg are improving. Wound Measurements and Assessment WC - Nurse 1 - General Ulcer Measurement Start: 12/18/18 08:43 Freq: Status: Active Protocol: Activity Type Activity Date Activity User E-Sign Co-Sign Detail Recorded Client Recorded Date Recorded By Document 12/18/18 08:43 DL [id number] 12/18/18 09:11 DL 12/18/18 08:43 Wound Center Nurse 1 [Ulcer Assessment] # 31 L Forearm -Current Size (cm) - Length 2.3 -Current Size (cm) - Width 2 -Current Size (cm) - Depth 0.1 -Total Square Cm 4.6 -Photo Taken Yes -Exudate Amt Small -Exudate Type Yellow/Green -Wound Margin Distinct, Outline Attached -Granulation Amt Small (1-33%) -Granulation Quality [place] -Necrosis Amt Small (1-33%) -Necrotic Tissue Type Adherent Slough -Structure Exposed N/A -Texture (Riddhi-wound Skin Appearance) Scarring -Moisture (Riddhi-wound Skin Appearance No Abnormality ) Dry/Scaly -Color (Riddhi-wound Skin Appearance) No Abnormality -Tenderness on Palpation (Riddhi-wound No Skin Appearance) -Ulcer Cleansing Rinsed/ Irrigated with Saline -Foul Odor after Cleansing No -Anesthetic Used 5% Lidocaine Gel #30 L Knee -Current Size (cm) - Length 0.8 -Current Size (cm) - Width 0.6 -Current Size (cm) - Depth 0.1 -Total Square Cm 0.48 -Photo Taken Yes -Exudate Amt None Present -Wound Margin Distinct, Outline Attached -Granulation Amt Small (1-33%) -Granulation Quality [place] -Necrosis Amt Small (1-33%) -Necrotic Tissue Type Adherent Slough -Texture (Riddhi-wound Skin Appearance) Scarring -Moisture (Riddhi-wound Skin Appearance No Abnormality ) -Color (Riddhi-wound Skin Appearance) No Abnormality -Temperature (Riddhi-wound Skin No Abnormality Appearance) (Pt Warm) -Tenderness on Palpation (Riddhi-wound No Skin Appearance) -Ulcer Cleansing Rinsed/ Irrigated with Saline -Foul Odor after Cleansing No -Anesthetic Used 4% Lidocaine Solution 5% Lidocaine Gel 29-right superior lateral leg -Current Size (cm) - Length 3.1 -Current Size (cm) - Width 1 -Current Size (cm) - Depth 0.2 -Total Square Cm 3.1 -Photo Taken No -Exudate Amt Small -Exudate Type Serosanguineous -Wound Margin Distinct, Outline Attached -Granulation Amt Medium (34-66%) -Granulation Quality [place] -Necrosis Amt Medium (34-66%) -Necrotic Tissue Type Adherent Slough -Structure Exposed N/A -Texture (Riddhi-wound Skin Appearance) Scarring -Moisture (Riddhi-wound Skin Appearance No Abnormality ) -Color (Riddhi-wound Skin Appearance) No Abnormality -Temperature (Riddhi-wound Skin No Abnormality Appearance) (Pt Warm) -Tenderness on Palpation (Riddhi-wound No Skin Appearance) -Ulcer Cleansing Rinsed/ Irrigated with Saline -Foul Odor after Cleansing No 28-left lateral leg wound -Current Size (cm) - Length 2.7 -Current Size (cm) - Width 0.8 -Current Size (cm) - Depth 0.2 -Total Square Cm 2.16 -Photo Taken No -Exudate Amt Small -Exudate Type Serosanguineous -Wound Margin Distinct, Outline Attached -Granulation Amt Medium (34-66%) -Granulation Quality [place] -Necrosis Amt Medium (34-66%) -Necrotic Tissue Type Adherent Slough -Structure Exposed N/A -Texture (Riddhi-wound Skin Appearance) Scarring -Moisture (Riddhi-wound Skin Appearance No Abnormality ) -Color (Riddhi-wound Skin Appearance) Hemosiderin Staining -Temperature (Riddhi-wound Skin No Abnormality Appearance) (Pt Warm) -Tenderness on Palpation (Riddhi-wound No Skin Appearance) -Ulcer Cleansing Rinsed/ Irrigated with Saline -Foul Odor after Cleansing No -Anesthetic Used 5% Lidocaine Gel #27 Right lateral LE -Current Size (cm) - Length 0 -Current Size (cm) - Width 0 -Current Size (cm) - Depth 0 -Total Square Cm 0 -Photo Taken Yes -Exudate Amt None Present -Wound Margin Distinct, Outline Attached -Granulation Amt None Present (0 %) -Structure Exposed N/A -Texture (Riddhi-wound Skin Appearance) Scarring -Moisture (Riddhi-wound Skin Appearance Dry/Scaly ) -Color (Riddhi-wound Skin Appearance) Hemosiderin Staining -Temperature (Riddhi-wound Skin No Abnormality Appearance) (Pt Warm) -Tenderness on Palpation (Riddhi-wound No Skin Appearance) -Ulcer Cleansing Rinsed/ Irrigated with Saline -Foul Odor after Cleansing No [Edema Assessment] -Right Calf (cm) 35 -Right Ankle (cm) 19 -Left Calf (cm) 34 -Left Ankle (cm) 20.5 WC - Nurse 2 - General Ulcer CM Notes Start: 12/18/18 08:43 Freq: Status: Active Protocol: Activity Type Activity Date Activity User E-Sign Co-Sign Detail Recorded Client Recorded Date Recorded By Document 12/18/18 09:35 AN [id number] 12/18/18 09:40 AN 12/18/18 09:35 Wound Center Nurse 2 [Procedure/Treatment] # 31 L Forearm -Time 09:35 -Correct Patient Yes -Correct Side, Site, Position Yes -Correct Procedure Yes -Procedure Performed Yes -Type of Procedure Debridement -Clinical Debridement Subcutaneous -Post Debridement Size (cm) - Length 2.2 -Post Debridement Size (cm) - Width 1.5 -Post Debridement Size (cm) - Depth 0.1 -Total Square Cm 3.30 #30 L Knee -Time 09:36 -Correct Patient Yes -Correct Side, Site, Position Yes -Correct Procedure Yes -Procedure Performed Yes -Type of Procedure Debridement -Clinical Debridement Subcutaneous -Post Debridement Size (cm) - Length 2 -Post Debridement Size (cm) - Width 0.7 -Post Debridement Size (cm) - Depth 0.1 -Total Square Cm 1.4 -Wound/Ulcer Outcome Not Healed 29-right superior lateral leg -Time 09:37 -Correct Patient Yes -Correct Side, Site, Position Yes -Correct Procedure Yes -Procedure Performed Yes -Type of Procedure Debridement -Clinical Debridement Subcutaneous -Post Debridement Size (cm) - Length 2.5 -Post Debridement Size (cm) - Width 0.7 -Post Debridement Size (cm) - Depth 0.3 -Total Square Cm 1.75 -Wound/Ulcer Outcome Not Healed -Ulcer Cleansing Rinsed/ Irrigated with Saline -Foul Odor after Cleansing No -Bioengineered Tissue No -Bleeding Controlled with Pressure -Treatment Response Procedure Tolerated Well 28-left lateral leg wound -Time 09:36 -Correct Patient Yes -Correct Side, Site, Position Yes -Correct Procedure Yes -Procedure Performed Yes -Type of Procedure Debridement -Clinical Debridement Subcutaneous -Post Debridement Size (cm) - Length 2.7 -Post Debridement Size (cm) - Width 1.8 -Post Debridement Size (cm) - Depth 0.3 -Total Square Cm 4.86 -Wound/Ulcer Outcome Not Healed -Bleeding Controlled with Pressure -Offloading No -Treatment Response Procedure Tolerated Well [See Physician Procedure note for Specifics] Pain Scale: 0-10 Numeric [Pain] -Is Patient Pain Free? Yes Musculoskeletal: No Tenderness to Palpation of Joints or Extremities Neurological: Neuro grossly intact, Unsteady Gait - Walking with walker, although she doesn't do this at home as often as she should Psych/Mental Status: Normal Affect Debridement Note Post-Debridement Measurements/Treatment WC - Nurse 2 - General Ulcer CM Notes Start: 12/18/18 08:43 Freq: Status: Active Protocol: Activity Type Activity Date Activity User E-Sign Co-Sign Detail Recorded Client Recorded Date Recorded By Document 12/18/18 09:35 AN [id number] 12/18/18 09:40 AN 12/18/18 09:35 Wound Center Nurse 2 # 31 L Forearm -Time 09:35 -Correct Patient Yes -Correct Side, Site, Position Yes -Correct Procedure Yes -Procedure Performed Yes -Type of Procedure Debridement -Clinical Debridement Subcutaneous -Post Debridement Size (cm) - Length 2.2 -Post Debridement Size (cm) - Width 1.5 -Post Debridement Size (cm) - Depth 0.1 -Total Square Cm 3.30 #30 L Knee -Time 09:36 -Correct Patient Yes -Correct Side, Site, Position Yes -Correct Procedure Yes -Procedure Performed Yes -Type of Procedure Debridement -Clinical Debridement Subcutaneous -Post Debridement Size (cm) - Length 2 -Post Debridement Size (cm) - Width 0.7 -Post Debridement Size (cm) - Depth 0.1 -Total Square Cm 1.4 -Wound/Ulcer Outcome Not Healed 29-right superior lateral leg -Time 09:37 -Correct Patient Yes -Correct Side, Site, Position Yes -Correct Procedure Yes -Procedure Performed Yes -Type of Procedure Debridement -Clinical Debridement Subcutaneous -Post Debridement Size (cm) - Length 2.5 -Post Debridement Size (cm) - Width 0.7 -Post Debridement Size (cm) - Depth 0.3 -Total Square Cm 1.75 -Wound/Ulcer Outcome Not Healed -Ulcer Cleansing Rinsed/ Irrigated with Saline -Foul Odor after Cleansing No -Bioengineered Tissue No -Bleeding Controlled with Pressure -Treatment Response Procedure Tolerated Well 28-left lateral leg wound -Time 09:36 -Correct Patient Yes -Correct Side, Site, Position Yes -Correct Procedure Yes -Procedure Performed Yes -Type of Procedure Debridement -Clinical Debridement Subcutaneous -Post Debridement Size (cm) - Length 2.7 -Post Debridement Size (cm) - Width 1.8 -Post Debridement Size (cm) - Depth 0.3 -Total Square Cm 4.86 -Wound/Ulcer Outcome Not Healed -Bleeding Controlled with Pressure -Offloading No -Treatment Response Procedure Tolerated Well Pain Scale: 0-10 Numeric Is Patient Pain Free? Yes Wound debrided: right lateral lower leg Laterality: Right Type of Debridement: Excisional debridement Anesthesia Used: 4% Lidocaine Solution Depth: Down to and including healthy tissue, in the subcutaneous layer Percentage of wound debrided: 100 Instrument Used: 5mm curette Tissue Removed: Subcutaneous tissue and slough Severity: Limited To Skin Breakdown Amount of bleeding with debridement: Mild Bleeding Controlled with: Pressure Patient tolerated procedure well - Additional Wound Wound debrided: Left lateral lower leg Laterality: Left Type of Debridement: Excisional debridement Anesthesia Used: 4% Lidocaine Solution Depth: Down to and including healthy tissue, in the subcutaneous layer Percentage of wound debrided: 100 Instrument Used: 5mm curette Tissue Removed: Subcutaneous tissue and slough Severity: Limited To Skin Breakdown Amount of bleeding with debridement: Mild Bleeding Controlled with: Pressure Patient tolerated procedure: Patient tolerated procedure well - Additional Wound Wound debrided: Left forearm Laterality: Left Type of Debridement: Excisional debridement Anesthesia Used: 4% Lidocaine Solution Depth: Down to and including healthy tissue, in the subcutaneous layer Percentage of wound debrided: 100 Instrument Used: 3mm curette Tissue Removed: Subcutaneous tissue and slough Severity: Limited To Skin Breakdown Amount of bleeding with debridement: Mild Bleeding Controlled with: Pressure Patient tolerated procedure: Patient tolerated procedure well - Additional Wound Wound debrided: Left knee Type of Debridement: Excisional debridement Anesthesia Used: 4% Lidocaine Solution Depth: Down to and including healthy tissue Percentage of wound debrided: 100 Instrument Used: 3mm curette Tissue Removed: Subcutaneous tissue and slough Severity: Limited To Skin Breakdown Amount of bleeding with debridement: Mild Bleeding Controlled with: Pressure Patient tolerated procedure: Patient tolerated procedure well Assessment/Plan Assessment: 1. Superficial abrasions bilateral legs. 2. Skin tear wound to left forearm. 3. Opened wound left knee. 2. Brain tumor - received chemotherapy, has been stopped due so many opened wounds. Plan: Continue Collagen Hydrogel to all of the abrasions with adaptic daily. Continue samuel guards to minimize further trauma. Part of the trauma could be related to the growth of her brain tumor. I suspect she will never be totally healed because when one abrasion heals, she will fall or bump her legs and develop another abrasion. The fear is that the brain tumor is growing. Eventually her balance will worsen and her eyesight will worsen and she will have no choice but to go to an ECF. Right now she wants to try and stay at home. Her niece is moving in with her to help her at home. So my recommendation is to proceed with the chemotherapy for the brain tumor. Hopefully with the chemotherapy the tumor shrinks as it did in the past and her balance improves. Her Prealbumin from 01/25/18 was 30.8. Encourage nutritional supplementation with protein to help the healing process. She had a an MRI on 08/15/18 and her oncologist would like to start chemo again because she has had an increase in her brain tumor. Followup in two weeks. Code Visit [id number]: [id number] Debbi subq tissue 20 sq cm/<
[2019-01-08 09:08] VITALS: BP 131/79; PULSE 69; RESP 16; TEMP 35.7
--- NOTE | 2019-01-08 23:24 | PCM.WC.PN ---
Type of Wound Date of Service: 01/08/19 Chief Complaint: Nonhealing traumatic wounds left lateral leg and right lateral leg. History of Wound: Patient has had nonhealing ulcers on her lower extremities that required surgery with skin grafts, and wound care, and antibiotics and HBO treatments. They resulted initially from her chemotherapy for her brain tumor. They have finally healed earlier this year and she restarted her chemotherapy. She lives at home alone. Her family does visit her. She has started wearing soft samuel guards. However she bumps into things at home a lot and occasionally will fall down. Her skin is quite thin and she develops intermittent abrasions and subsequent ulcerations. Because of these ulcers, her chemotherapy has been put on hold according to the patient. She states the chemotherapy that she did receive recently has decreased the tumor at this point. Today she denies fever. Her appetite is ok. She also has chronic swelling in her legs from chronic venous disease and insufficiency. This chronic swelling will thin the skin as well and contribute to the nonhealing ulcers. Progress of Wound: Slightly improved. - Physical Exam Vital Signs Temp Pulse Resp BP 96.2 F L 69 16 131/79 H 01/08/19 09:08 01/08/19 09:08 01/08/19 09:08 01/08/19 09:08 Wound Measurements and Assessment WC - Nurse 1 - General Ulcer Measurement Start: 12/18/18 08:43 Freq: Status: Active Protocol: Activity Type Activity Date Activity User E-Sign Co-Sign Detail Recorded Client Recorded Date Recorded By Document 01/08/19 09:08 [id number] 01/08/19 09:33 MW 01/08/19 09:08 Wound Center Nurse 1 [Ulcer Assessment] #33 Left Medial Anterior Foot -Combined with other wound No -Current Size (cm) - Length 1.5 -Current Size (cm) - Width 0.5 -Current Size (cm) - Depth 0.2 -Total Square Cm 0.75 -Date of Last Picture (Recall this 01/08/19 field) -Photo Taken Yes -Epithelialization None Present -Tunneling No -Undermining/Tunneling No -Circular Undermining No -Exudate Amt Small -Exudate Type Serous -Wound Margin Flat & Intact -Granulation Amt None Present (0 %) -Granulation Quality N/A -Slough/Fibrin Yes -Necrosis Amt Large (67-100%) -Necrotic Tissue Type Adherent Slough -Structure Exposed N/A -Texture (Riddhi-wound Skin Appearance) Assessed, Localized Edema -Moisture (Riddhi-wound Skin Appearance No Abnormality, ) Assessed -Color (Riddhi-wound Skin Appearance) No Abnormality, Assessed -Temperature (Riddhi-wound Skin No Abnormality Appearance) (Pt Warm) -Tenderness on Palpation (Riddhi-wound No Skin Appearance) -Ulcer Cleansing Rinsed/ Irrigated with Saline -Foul Odor after Cleansing No -Anesthetic Used 4% Lidocaine Solution #32 Left Posterior LE -Combined with other wound No -Current Size (cm) - Length 2.0 -Current Size (cm) - Width 1.2 -Current Size (cm) - Depth 0.5 -Total Square Cm 2.40 -Date of Last Picture (Recall this 01/08/19 field) -Photo Taken Yes -Epithelialization None Present -Tunneling No -Undermining/Tunneling No -Circular Undermining No -Exudate Amt Small -Exudate Type Serous -Wound Margin Flat & Intact -Granulation Amt None Present (0 %) -Granulation Quality N/A -Slough/Fibrin Yes -Necrosis Amt Large (67-100%) -Necrotic Tissue Type Adherent Slough -Structure Exposed N/A -Texture (Riddhi-wound Skin Appearance) Assessed, Localized Edema ,Scarring -Moisture (Riddhi-wound Skin Appearance No Abnormality, ) Assessed -Color (Riddhi-wound Skin Appearance) No Abnormality, Hemosiderin Staining -Temperature (Riddhi-wound Skin No Abnormality Appearance) (Pt Warm) -Tenderness on Palpation (Riddhi-wound No Skin Appearance) -Ulcer Cleansing Rinsed/ Irrigated with Saline -Foul Odor after Cleansing No -Anesthetic Used 4% Lidocaine Solution # 31 L Forearm -Combined with other wound No -Current Size (cm) - Length 0.1 -Current Size (cm) - Width 0.1 -Current Size (cm) - Depth 0.1 -Total Square Cm 0.01 -Date of Last Picture (Recall this 01/08/19 field) -Photo Taken Yes -Epithelialization Small 1-33% -Tunneling No -Undermining/Tunneling No -Circular Undermining No -Exudate Amt None Present -Wound Margin Flat & Intact -Granulation Amt None Present (0 %) -Granulation Quality N/A -Slough/Fibrin Yes -Necrosis Amt Small (1-33%) -Necrotic Tissue Type Adherent Slough -Structure Exposed N/A -Texture (Riddhi-wound Skin Appearance) Assessed, Localized Edema ,Scarring -Moisture (Riddhi-wound Skin Appearance Assessed ) -Color (Riddhi-wound Skin Appearance) Assessed, Hemosiderin Staining -Temperature (Riddhi-wound Skin No Abnormality Appearance) (Pt Warm) -Tenderness on Palpation (Riddhi-wound No Skin Appearance) -Ulcer Cleansing Rinsed/ Irrigated with Saline -Foul Odor after Cleansing No -Anesthetic Used 4% Lidocaine Solution #30 L Knee -Combined with other wound No -Current Size (cm) - Length 0.1 -Current Size (cm) - Width 0.1 -Current Size (cm) - Depth 0.1 -Total Square Cm 0.01 -Date of Last Picture (Recall this 01/08/19 field) -Photo Taken Yes -Epithelialization Large 67-100% -Tunneling No -Undermining/Tunneling No -Circular Undermining No -Exudate Amt None Present -Wound Margin Flat & Intact -Granulation Amt None Present (0 %) -Granulation Quality N/A -Slough/Fibrin No -Necrosis Amt None Present (0 %) -Structure Exposed N/A -Texture (Riddhi-wound Skin Appearance) Assessed, Localized Edema ,Scarring -Moisture (Riddhi-wound Skin Appearance No Abnormality, ) Assessed -Color (Riddhi-wound Skin Appearance) Assessed, Hemosiderin Staining -Temperature (Riddhi-wound Skin No Abnormality Appearance) (Pt Warm) -Tenderness on Palpation (Riddhi-wound No Skin Appearance) -Ulcer Cleansing Rinsed/ Irrigated with Saline -Foul Odor after Cleansing No -Anesthetic Used 4% Lidocaine Solution 29-right superior lateral leg -Combined with other wound No -Current Size (cm) - Length 1.7 -Current Size (cm) - Width 1.4 -Current Size (cm) - Depth 0.5 -Total Square Cm 2.38 -Date of Last Picture (Recall this 01/08/19 field) -Photo Taken Yes -Epithelialization None Present -Tunneling No -Undermining/Tunneling No -Circular Undermining No -Exudate Amt Small -Exudate Type Serous -Wound Margin Thickened & Rolled Under -Granulation Amt Small (1-33%) -Granulation Quality Pale -Slough/Fibrin Yes -Necrosis Amt Large (67-100%) -Necrotic Tissue Type Adherent Slough -Structure Exposed N/A -Texture (Riddhi-wound Skin Appearance) Assessed, Localized Edema ,Scarring -Moisture (Riddhi-wound Skin Appearance No Abnormality, ) Assessed -Color (Riddhi-wound Skin Appearance) Assessed, Hemosiderin Staining -Temperature (Riddhi-wound Skin No Abnormality Appearance) (Pt Warm) -Tenderness on Palpation (Riddhi-wound No Skin Appearance) -Ulcer Cleansing Rinsed/ Irrigated with Saline -Foul Odor after Cleansing No -Anesthetic Used 4% Lidocaine Solution 28-left lateral leg wound -Combined with other wound No -Current Size (cm) - Length 3.5 -Current Size (cm) - Width 4.0 -Current Size (cm) - Depth 0.5 -Total Square Cm 14.00 -Date of Last Picture (Recall this 01/08/19 field) -Photo Taken Yes -Epithelialization None Present -Tunneling No -Undermining/Tunneling No -Circular Undermining No -Exudate Amt Small -Exudate Type Serosanguineous -Wound Margin Thickened & Rolled Under -Granulation Amt Medium (34-66%) -Granulation Quality [place] -Slough/Fibrin Yes -Necrosis Amt Small (1-33%) -Necrotic Tissue Type Adherent Slough -Structure Exposed N/A -Texture (Riddhi-wound Skin Appearance) Assessed, Localized Edema ,Scarring -Moisture (Riddhi-wound Skin Appearance No Abnormality, ) Assessed -Color (Riddhi-wound Skin Appearance) Assessed, Hemosiderin Staining -Temperature (Riddhi-wound Skin No Abnormality Appearance) (Pt Warm) -Tenderness on Palpation (Riddhi-wound No Skin Appearance) -Ulcer Cleansing Wound Cleanser -Foul Odor after Cleansing No -Anesthetic Used 4% Lidocaine Solution [Edema Assessment] -Lower Limb Edema Present Yes -Right Calf (cm) 40.5 -Right Ankle (cm) 21.0 -Left Calf (cm) 39.5 -Left Ankle (cm) 22.4 WC - Nurse 2 - General Ulcer CM Notes Start: 12/18/18 08:43 Freq: Status: Active Protocol: Activity Type Activity Date Activity User E-Sign Co-Sign Detail Recorded Client Recorded Date Recorded By Document 01/08/19 10:18 RANDY [id number] 01/08/19 10:25 RANDY 01/08/19 10:18 Wound Center Nurse 2 [Procedure/Treatment] #33 Left Medial Anterior Foot -Time 10:21 -Correct Patient Yes -Correct Side, Site, Position Yes -Correct Procedure Yes -Procedure Performed Yes -Type of Procedure Debridement -Clinical Debridement Subcutaneous -Post Debridement Size (cm) - Length 1.5 -Post Debridement Size (cm) - Width 0.6 -Post Debridement Size (cm) - Depth 0.2 -Total Square Cm 0.90 -Wound/Ulcer Outcome Not Healed -Ulcer Cleansing Rinsed/ Irrigated with Saline -Foul Odor after Cleansing No -Bioengineered Tissue No -Bleeding Controlled with Pressure -Offloading No -Treatment Response Procedure Tolerated Well #32 Left Posterior LE -Time 10:21 -Correct Patient Yes -Correct Side, Site, Position Yes -Correct Procedure Yes -Procedure Performed Yes -Type of Procedure Debridement -Clinical Debridement Subcutaneous -Post Debridement Size (cm) - Length 2.1 -Post Debridement Size (cm) - Width 1.2 -Post Debridement Size (cm) - Depth 0.5 -Total Square Cm 2.52 -Wound/Ulcer Outcome Not Healed -Ulcer Cleansing Rinsed/ Irrigated with Saline -Foul Odor after Cleansing No -Bioengineered Tissue No -Bleeding Controlled with Pressure -Offloading No -Treatment Response Procedure Tolerated Well # 31 L Forearm -Time 10:24 -Correct Patient Yes -Correct Side, Site, Position Yes -Correct Procedure Yes -Procedure Performed Yes -Type of Procedure Debridement -Clinical Debridement Subcutaneous -Post Debridement Size (cm) - Length 0.3 -Post Debridement Size (cm) - Width 0.4 -Post Debridement Size (cm) - Depth 0.1 -Total Square Cm 0.12 -Wound/Ulcer Outcome Not Healed -Ulcer Cleansing Rinsed/ Irrigated with Saline -Foul Odor after Cleansing No -Bioengineered Tissue No -Bleeding Controlled with Pressure -Offloading No -Treatment Response Procedure Tolerated Well #30 L Knee -Correct Patient No -Correct Side, Site, Position No -Correct Procedure No -Procedure Performed No -Post Debridement Size (cm) - Length 0 -Post Debridement Size (cm) - Width 0 -Post Debridement Size (cm) - Depth 0 -Total Square Cm 0 -Wound/Ulcer Outcome Healed- Epithelialized 29-right superior lateral leg -Time 10:22 -Correct Patient Yes -Correct Side, Site, Position Yes -Correct Procedure Yes -Procedure Performed Yes -Type of Procedure Debridement -Clinical Debridement Subcutaneous -Post Debridement Size (cm) - Length 1.8 -Post Debridement Size (cm) - Width 1.5 -Post Debridement Size (cm) - Depth 0.5 -Total Square Cm 2.70 -Wound/Ulcer Outcome Not Healed -Ulcer Cleansing Rinsed/ Irrigated with Saline -Foul Odor after Cleansing No -Bioengineered Tissue No -Bleeding Controlled with Pressure -Offloading No -Treatment Response Procedure Tolerated Well 28-left lateral leg wound -Time 10:23 -Correct Patient Yes -Correct Side, Site, Position Yes -Correct Procedure Yes -Procedure Performed Yes -Type of Procedure Debridement -Clinical Debridement Subcutaneous -Post Debridement Size (cm) - Length 3.5 -Post Debridement Size (cm) - Width 4.1 -Post Debridement Size (cm) - Depth 0.5 -Total Square Cm 14.35 -Wound/Ulcer Outcome Not Healed -Ulcer Cleansing Rinsed/ Irrigated with Saline -Foul Odor after Cleansing No -Bioengineered Tissue No -Bleeding Controlled with Pressure -Offloading No -Treatment Response Procedure Tolerated Well [See Physician Procedure note for Specifics] Pain Scale: 0-10 Numeric [Pain] -Is Patient Pain Free? Yes Debridement Note Post-Debridement Measurements/Treatment WC - Nurse 2 - General Ulcer CM Notes Start: 12/18/18 08:43 Freq: Status: Active Protocol: Activity Type Activity Date Activity User E-Sign Co-Sign Detail Recorded Client Recorded Date Recorded By Document 12/18/18 09:35 AN [id number] 12/18/18 09:40 AN Document 01/08/19 10:18 JF [id number] 01/08/19 10:25 12/18/18 01/08/19 09:35 10:18 Wound Center Nurse 2 #33 Left Medial Anterior Foot -Time 10:21 -Correct Patient Yes -Correct Side, Site, Position Yes -Correct Procedure Yes -Procedure Performed Yes -Type of Procedure Debridement -Clinical Debridement Subcutaneous -Post Debridement Size (cm) - Length 1.5 -Post Debridement Size (cm) - Width 0.6 -Post Debridement Size (cm) - Depth 0.2 -Total Square Cm 0.90 -Wound/Ulcer Outcome Not Healed -Ulcer Cleansing Rinsed/ Irrigated with Saline -Foul Odor after Cleansing No -Bioengineered Tissue No -Bleeding Controlled with Pressure -Offloading No -Treatment Response Procedure Tolerated Well #32 Left Posterior LE -Time 10:21 -Correct Patient Yes -Correct Side, Site, Position Yes -Correct Procedure Yes -Procedure Performed Yes -Type of Procedure Debridement -Clinical Debridement Subcutaneous -Post Debridement Size (cm) - Length 2.1 -Post Debridement Size (cm) - Width 1.2 -Post Debridement Size (cm) - Depth 0.5 -Total Square Cm 2.52 -Wound/Ulcer Outcome Not Healed -Ulcer Cleansing Rinsed/ Irrigated with Saline -Foul Odor after Cleansing No -Bioengineered Tissue No -Bleeding Controlled with Pressure -Offloading No -Treatment Response Procedure Tolerated Well # 31 L Forearm -Time 09:35 10:24 -Correct Patient Yes Yes -Correct Side, Site, Position Yes Yes -Correct Procedure Yes Yes -Procedure Performed Yes Yes -Type of Procedure Debridement Debridement -Clinical Debridement Subcutaneous Subcutaneous -Post Debridement Size (cm) - Length 2.2 0.3 -Post Debridement Size (cm) - Width 1.5 0.4 -Post Debridement Size (cm) - Depth 0.1 0.1 -Total Square Cm 3.30 0.12 -Wound/Ulcer Outcome Not Healed -Ulcer Cleansing Rinsed/ Irrigated with Saline -Foul Odor after Cleansing No -Bioengineered Tissue No -Bleeding Controlled with Pressure -Offloading No -Treatment Response Procedure Tolerated Well #30 L Knee -Time 09:36 -Correct Patient Yes No -Correct Side, Site, Position Yes No -Correct Procedure Yes No -Procedure Performed Yes No -Type of Procedure Debridement -Clinical Debridement Subcutaneous -Post Debridement Size (cm) - Length 2 0 -Post Debridement Size (cm) - Width 0.7 0 -Post Debridement Size (cm) - Depth 0.1 0 -Total Square Cm 1.4 0 -Wound/Ulcer Outcome Not Healed Healed- Epithelialized 29-right superior lateral leg -Time 09:37 10:22 -Correct Patient Yes Yes -Correct Side, Site, Position Yes Yes -Correct Procedure Yes Yes -Procedure Performed Yes Yes -Type of Procedure Debridement Debridement -Clinical Debridement Subcutaneous Subcutaneous -Post Debridement Size (cm) - Length 2.5 1.8 -Post Debridement Size (cm) - Width 0.7 1.5 -Post Debridement Size (cm) - Depth 0.3 0.5 -Total Square Cm 1.75 2.70 -Wound/Ulcer Outcome Not Healed Not Healed -Ulcer Cleansing Rinsed/ Rinsed/ Irrigated with Irrigated with Saline Saline -Foul Odor after Cleansing No No -Bioengineered Tissue No No -Bleeding Controlled with Pressure Pressure -Offloading No -Treatment Response Procedure Procedure Tolerated Well Tolerated Well 28-left lateral leg wound -Time 09:36 10:23 -Correct Patient Yes Yes -Correct Side, Site, Position Yes Yes -Correct Procedure Yes Yes -Procedure Performed Yes Yes -Type of Procedure Debridement Debridement -Clinical Debridement Subcutaneous Subcutaneous -Post Debridement Size (cm) - Length 2.7 3.5 -Post Debridement Size (cm) - Width 1.8 4.1 -Post Debridement Size (cm) - Depth 0.3 0.5 -Total Square Cm 4.86 14.35 -Wound/Ulcer Outcome Not Healed Not Healed -Ulcer Cleansing Rinsed/ Irrigated with Saline -Foul Odor after Cleansing No -Bioengineered Tissue No -Bleeding Controlled with Pressure Pressure -Offloading No No -Treatment Response Procedure Procedure Tolerated Well Tolerated Well Pain Scale: 0-10 Numeric Is Patient Pain Free? Yes Yes Wound debrided: #28 Left lateral leg. Laterality: Left Wound Grade/Stage: 2. Type of Debridement: Excisional debridement Anesthesia Used: 4% Lidocaine Solution Depth: Down to and including healthy tissue, in the subcutaneous layer Percentage of wound debrided: 100 Instrument Used: 3mm curette Tissue Removed: subcutaneous tissue. Severity: Fat Layer Exposed Amount of bleeding with debridement: Mild Bleeding Controlled with: Pressure Patient tolerated procedure well - Additional Wound Wound debrided: #29 Right superolateral leg. Laterality: Right Wound Grade/Stage: 2. Type of Debridement: Excisional debridement Anesthesia Used: 4% Lidocaine Solution Depth: Down to and including healthy tissue, in the subcutaneous layer Percentage of wound debrided: 100 Instrument Used: 3mm curette Tissue Removed: subcutaneous tissue. Severity: Fat Layer Exposed Amount of bleeding with debridement: Mild Bleeding Controlled with: Pressure Patient tolerated procedure: Patient tolerated procedure well - Additional Wound Wound debrided: #30 Left knee. Laterality: Left Wound Grade/Stage: 2. Patient tolerated procedure: - - no debridement was done today as the ulcer has healed. - Additional Wound Wound debrided: #31 Left forearm. Laterality: Left Wound Grade/Stage: 2. Type of Debridement: Excisional debridement Anesthesia Used: 4% Lidocaine Solution Depth: Down to and including healthy tissue, in the subcutaneous layer Percentage of wound debrided: 100 Instrument Used: 3mm curette Tissue Removed: subcutaneous tissue. Severity: Fat Layer Exposed Amount of bleeding with debridement: Mild Bleeding Controlled with: Pressure Patient tolerated procedure: Patient tolerated procedure well - Additional Wound Wound debrided: #32 Left posterior leg. Laterality: Left Wound Grade/Stage: 2. Type of Debridement: Excisional debridement Anesthesia Used: 4% Lidocaine Solution Depth: Down to and including healthy tissue, in the subcutaneous layer Percentage of wound debrided: 100 Instrument Used: 3mm curette Tissue Removed: subcutaneous tissue. Severity: Fat Layer Exposed Amount of bleeding with debridement: Mild Bleeding Controlled with: Pressure Patient tolerated procedure: Patient tolerated procedure well - Additional Wound Wound debrided: #33 Left medial anterior foot. Laterality: Left Wound Grade/Stage: 2. Type of Debridement: Excisional debridement Anesthesia Used: 4% Lidocaine Solution Depth: Down to and including healthy tissue, in the subcutaneous layer Percentage of wound debrided: 100 Instrument Used: 3mm curette Tissue Removed: suncutaneous tissue. Severity: Fat Layer Exposed Amount of bleeding with debridement: Mild Bleeding Controlled with: Pressure Patient tolerated procedure: Patient tolerated procedure well Assessment/Plan Assessment: 1. Nonhealing ulcer left lateral leg. 2. Nonhealing ulcer left posterior leg. 3. Nonhealing ulcer left medial anterior foot. 4. Nonhealing ulcer right superolateral leg. 5. Nonhealing ulcer left forearm. 6. Ulcer left knee, healed. 7. Chronic venous disease with insufficiency. 8. Brain tumor - received chemotherapy. Plan: Continue Collagen Hydrogel to the wounds daily followed by tubigrip for compression to minimize swelling and to help with the healing process from her chronic venous disease and insufficiency. Continue samuel guards to minimize further trauma. I suspect she will never be totally healed because when one ulcer heals, she will fall or bump her legs and develop another ulcer. She had restarted her chemotherapy for her brain tumor because it has grown. She was told the chemotherapy has helped to decrease the tumor at this time as the chemotherapy was stopped because of the new onset wounds. Eventually her balance will worsen and her eyesight will worsen and she will have no choice but to go to an ECF. Right now she wants to try and stay at home. Her Prealbumin from 01/25/18 was 30.8. Encourage nutritional supplementation with protein to help the healing process. If healing is suboptimal, will obtain a wound culture. A positive culture will necessitate antibiotic therapy. To try and speed up the healing process, she would be a candidate for PuraPly Antimicrobial Wound Matrix. Will check with her insurance for medical approval. Followup one week.
== END 2019-01-14 23:59 ==
LOC: WC 08:45
PROVIDERS: Family Provider Student in an Organized Health Care Education/Training Program; PCP Student in an Organized Health Care Education/Training Program; Visit Provider Surgery
DX: S80.811A Abrasion, right lower leg, initial encounter (principal); S80.812A Abrasion, left lower leg, initial encounter; W22.8XXA Striking against or struck by other objects, initial encounter; C71.9 Malignant neoplasm of brain, unspecified; I73.9 Peripheral vascular disease, unspecified; S51.812A Laceration without foreign body of left forearm, initial encounter; S81.012A Laceration without foreign body, left knee, initial encounter; W19.XXXA Unspecified fall, initial encounter; Y93.9 Activity, unspecified; Y92.009 Unspecified place in unspecified non-institutional (private) residence as the place of occurrence of the external cause
CPT/HCPCS: 11042; 11045

== ENCOUNTER 2019-01-22 08:45 | Outpatient (RCR) | payer MEDICARE, SELFPAY ==
[2019-01-15 00:50] VITALS: BP 131/79; PULSE 69; RESP 16; TEMP 35.7
[2019-01-15 10:23] VITALS: BP 124/80; PULSE 77; RESP 16; TEMP 36.4
--- NOTE | 2019-01-15 11:43 | PCM.WC.PN ---
(1) Skin tear of left forearm without complication Status: Acute Current Visit: Yes Code(s): S51.812A - Laceration without foreign body of left forearm, initial encounter (2) Ulcer of left foot Status: Chronic Current Visit: Yes Code(s): L97.529 - Non-pressure chronic ulcer of other part of left foot with unspecified severity (3) Ulcer of left calf Status: Chronic Current Visit: Yes Code(s): L97.229 - Non-pressure chronic ulcer of left calf with unspecified severity (4) Ulcer of left lower leg Status: Chronic Current Visit: Yes Code(s): L97.929 - Non-pressure chronic ulcer of unspecified part of left lower leg with unspecified severity (5) Nonhealing ulcer of right lower extremity with fat layer exposed Status: Chronic Current Visit: Yes Code(s): L97.912 - Non-pressure chronic ulcer of unspecified part of right lower leg with fat layer exposed (6) Venous insufficiency of both lower extremities Status: Chronic Current Visit: Yes Code(s): I87.2 - Venous insufficiency (chronic) (peripheral) (7) Glioblastoma multiforme Status: Chronic Current Visit: Yes Code(s): C71.9 - Malignant neoplasm of brain, unspecified (8) Debility, unspecified Status: Chronic Current Visit: Yes Code(s): R53.81 - Other malaise Type of Wound Date of Service: 01/15/19 Chief Complaint: Nonhealing traumatic wounds left lateral leg and right lateral leg. History of Wound: Patient has had nonhealing ulcers on her lower extremities that required surgery with skin grafts, and wound care, and antibiotics and HBO treatments. They resulted initially from her chemotherapy for her brain tumor. They have finally healed earlier this year and she restarted her chemotherapy. She lives at home alone. Her family does visit her. She has started wearing soft samuel guards. However she bumps into things at home a lot and occasionally will fall down. Her skin is quite thin and she develops intermittent abrasions and subsequent ulcerations. Because of these ulcers, her chemotherapy has been put on hold according to the patient. She states the chemotherapy that she did receive recently has decreased the tumor at this point. Today she denies fever. Her appetite is ok. She also has chronic swelling in her legs from chronic venous disease and insufficiency. This chronic swelling will thin the skin as well and contribute to the nonhealing ulcers. Progress of Wound: Multiple opened areas on lower legs. Left forearm is improving. - Physical Exam Vital Signs Temp Pulse Resp BP 97.5 F L 77 16 124/80 H 01/15/19 10:23 01/15/19 10:23 01/15/19 10:23 01/15/19 10:23 General: Alert, Cooperative HEENT: Atraumatic Oral: Moist Mucosa Lungs: Normal air movement Cardiovascular: Regular rate Extremities: Capillary Refill Less than 3 Seconds, Diminished Peripheral Pulses, Edema Skin: Ulcer/ Wound - Left forearm almost healed, left medial foot, left lateral lower leg and left posterior calf and right lateral leg ulcers Wound Measurements and Assessment WC - Nurse 1 - General Ulcer Measurement Start: 01/15/19 10:23 Freq: Status: Active Protocol: Activity Type Activity Date Activity User E-Sign Co-Sign Detail Recorded Client Recorded Date Recorded By Document 01/15/19 10:23 [facility] [id number] 01/15/19 10:38 [facility] 01/15/19 10:23 Wound Center Nurse 1 [Ulcer Assessment] #33 Left Medial Anterior Foot -Combined with other wound No -Current Size (cm) - Length 1.3 -Current Size (cm) - Width 0.4 -Current Size (cm) - Depth 0.2 -Total Square Cm 0.52 -Photo Taken No -Epithelialization None Present -Tunneling No -Undermining/Tunneling No -Circular Undermining No -Exudate Amt Small -Exudate Type Serous -Wound Margin Distinct, Outline Attached -Granulation Amt Small (1-33%) -Granulation Quality [place] -Slough/Fibrin Yes -Necrosis Amt Medium (34-66%) -Necrotic Tissue Type Adherent Slough -Texture (Riddhi-wound Skin Appearance) Assessed, Scarring -Moisture (Riddhi-wound Skin Appearance Assessed ) -Color (Riddhi-wound Skin Appearance) Assessed -Temperature (Riddhi-wound Skin No Abnormality Appearance) (Pt Warm) -Tenderness on Palpation (Riddhi-wound No Skin Appearance) -Ulcer Cleansing Rinsed/ Irrigated with Saline -Foul Odor after Cleansing No -Anesthetic Used 4% Lidocaine Solution #32 Left Posterior LE -Combined with other wound No -Current Size (cm) - Length 1.4 -Current Size (cm) - Width 1 -Current Size (cm) - Depth 0.3 -Total Square Cm 1.4 -Photo Taken No -Epithelialization None Present -Tunneling No -Undermining/Tunneling No -Circular Undermining No -Exudate Amt Small -Exudate Type Serous -Wound Margin Distinct, Outline Attached -Granulation Amt Small (1-33%) -Granulation Quality Red -Slough/Fibrin Yes -Necrosis Amt Medium (34-66%) -Necrotic Tissue Type Adherent Slough -Texture (Riddhi-wound Skin Appearance) Assessed, Scarring -Moisture (Riddhi-wound Skin Appearance Assessed,Dry/ ) Scaly -Color (Riddhi-wound Skin Appearance) Assessed -Temperature (Riddhi-wound Skin No Abnormality Appearance) (Pt Warm) -Tenderness on Palpation (Riddhi-wound No Skin Appearance) -Ulcer Cleansing Rinsed/ Irrigated with Saline -Foul Odor after Cleansing No -Anesthetic Used 4% Lidocaine Solution # 31 L Forearm -Combined with other wound No -Current Size (cm) - Length 0.1 -Current Size (cm) - Width 0.1 -Current Size (cm) - Depth 0.1 -Total Square Cm 0.01 -Photo Taken No -Epithelialization Large 67-100% -Tunneling No -Undermining/Tunneling No -Circular Undermining No 29-right superior lateral leg -Combined with other wound No -Current Size (cm) - Length 1.5 -Current Size (cm) - Width 1 -Current Size (cm) - Depth 0.5 -Total Square Cm 1.5 -Photo Taken No -Epithelialization None Present -Tunneling No -Undermining/Tunneling No -Circular Undermining No -Exudate Amt Small -Exudate Type Serous -Wound Margin Distinct, Outline Attached -Granulation Amt Small (1-33%) -Granulation Quality [place] -Slough/Fibrin Yes -Necrosis Amt Medium (34-66%) -Necrotic Tissue Type Adherent Slough -Texture (Riddhi-wound Skin Appearance) Assessed, Scarring -Moisture (Riddhi-wound Skin Appearance Assessed,Dry/ ) Scaly -Color (Riddhi-wound Skin Appearance) Assessed -Temperature (Riddhi-wound Skin No Abnormality Appearance) (Pt Warm) -Tenderness on Palpation (Riddhi-wound No Skin Appearance) -Ulcer Cleansing Rinsed/ Irrigated with Saline -Foul Odor after Cleansing No -Anesthetic Used 4% Lidocaine Solution 28-left lateral leg wound -Combined with other wound No -Current Size (cm) - Length 2.2 -Current Size (cm) - Width 3.8 -Current Size (cm) - Depth 0.5 -Total Square Cm 8.36 -Photo Taken No -Epithelialization None Present -Tunneling No -Undermining/Tunneling No -Circular Undermining No -Exudate Amt Medium -Exudate Type Serous -Wound Margin Distinct, Outline Attached -Granulation Amt Small (1-33%) -Granulation Quality Red -Slough/Fibrin Yes -Necrosis Amt Medium (34-66%) -Necrotic Tissue Type Adherent Slough -Texture (Riddhi-wound Skin Appearance) Assessed, Scarring -Moisture (Riddhi-wound Skin Appearance Assessed ) -Color (Riddhi-wound Skin Appearance) Assessed, Erythema -Temperature (Riddhi-wound Skin No Abnormality Appearance) (Pt Warm) -Tenderness on Palpation (Riddhi-wound No Skin Appearance) -Ulcer Cleansing Rinsed/ Irrigated with Saline -Foul Odor after Cleansing No -Anesthetic Used 4% Lidocaine Solution [Edema Assessment] -Lower Limb Edema Present Yes -Right Calf (cm) 36 -Right Ankle (cm) 21.1 -Left Calf (cm) 36 -Left Ankle (cm) 23.1 WC - Nurse 2 - General Ulcer CM Notes Start: 01/15/19 10:23 Freq: Status: Active Protocol: Activity Type Activity Date Activity User E-Sign Co-Sign Detail Recorded Client Recorded Date Recorded By Document 01/15/19 11:00 RANDY [id number] 01/15/19 11:09 RANDY 01/15/19 11:00 Wound Center Nurse 2 [Procedure/Treatment] #33 Left Medial Anterior Foot -Time 11:05 -Correct Patient Yes -Correct Side, Site, Position Yes -Correct Procedure Yes -Procedure Performed Yes -Type of Procedure Debridement -Clinical Debridement Subcutaneous -Post Debridement Size (cm) - Length 1.5 -Post Debridement Size (cm) - Width 0.5 -Post Debridement Size (cm) - Depth 0.3 -Total Square Cm 0.75 -Wound/Ulcer Outcome Not Healed -Ulcer Cleansing Rinsed/ Irrigated with Saline -Foul Odor after Cleansing No -Bioengineered Tissue No -Bleeding Controlled with Pressure -Offloading No -Treatment Response Procedure Tolerated Well #32 Left Posterior LE -Time 11:04 -Correct Patient Yes -Correct Side, Site, Position Yes -Correct Procedure Yes -Procedure Performed Yes -Type of Procedure Debridement -Clinical Debridement Subcutaneous -Post Debridement Size (cm) - Length 1.5 -Post Debridement Size (cm) - Width 1.3 -Post Debridement Size (cm) - Depth 0.7 -Total Square Cm 1.95 -Wound/Ulcer Outcome Not Healed -Ulcer Cleansing Rinsed/ Irrigated with Saline -Foul Odor after Cleansing No -Bioengineered Tissue No -Bleeding Controlled with Pressure -Offloading No -Treatment Response Procedure Tolerated Well # 31 L Forearm -Time 11:06 -Correct Patient Yes -Correct Side, Site, Position Yes -Correct Procedure Yes -Procedure Performed Yes -Type of Procedure Debridement -Clinical Debridement Subcutaneous -Post Debridement Size (cm) - Length 0.3 -Post Debridement Size (cm) - Width 0.2 -Post Debridement Size (cm) - Depth 0.1 -Total Square Cm 0.06 -Wound/Ulcer Outcome Not Healed -Ulcer Cleansing Rinsed/ Irrigated with Saline -Foul Odor after Cleansing No -Bioengineered Tissue No -Bleeding Controlled with Pressure -Offloading No -Treatment Response Procedure Tolerated Well 29-right superior lateral leg -Time 11:07 -Correct Patient Yes -Correct Side, Site, Position Yes -Correct Procedure Yes -Procedure Performed Yes -Type of Procedure Debridement -Clinical Debridement Subcutaneous -Post Debridement Size (cm) - Length 1.5 -Post Debridement Size (cm) - Width 0.5 -Post Debridement Size (cm) - Depth 1.8 -Total Square Cm 0.75 -Wound/Ulcer Outcome Not Healed -Ulcer Cleansing Rinsed/ Irrigated with Saline -Foul Odor after Cleansing No -Bioengineered Tissue No -Bleeding Controlled with Pressure -Offloading No -Treatment Response Procedure Tolerated Well 28-left lateral leg wound -Time 11:03 -Correct Patient Yes -Correct Side, Site, Position Yes -Correct Procedure Yes -Procedure Performed Yes -Type of Procedure Debridement -Clinical Debridement Subcutaneous -Post Debridement Size (cm) - Length 2 -Post Debridement Size (cm) - Width 4.5 -Post Debridement Size (cm) - Depth 0.5 -Total Square Cm 9.0 -Wound/Ulcer Outcome Not Healed -Ulcer Cleansing Rinsed/ Irrigated with Saline -Foul Odor after Cleansing No -Bioengineered Tissue No -Bleeding Controlled with Pressure -Offloading No -Treatment Response Procedure Tolerated Well [See Physician Procedure note for Specifics] Pain Scale: 0-10 Numeric [Pain] -Is Patient Pain Free? Yes Musculoskeletal: No Tenderness to Palpation of Joints or Extremities Neurological: Neuro grossly intact Psych/Mental Status: Normal Affect Debridement Note Post-Debridement Measurements/Treatment WC - Nurse 2 - General Ulcer CM Notes Start: 01/15/19 10:23 Freq: Status: Active Protocol: Activity Type Activity Date Activity User E-Sign Co-Sign Detail Recorded Client Recorded Date Recorded By Document 01/15/19 11:00 [id number] 01/15/19 11:09 RANDY 01/15/19 11:00 Wound Center Nurse 2 #33 Left Medial Anterior Foot -Time 11:05 -Correct Patient Yes -Correct Side, Site, Position Yes -Correct Procedure Yes -Procedure Performed Yes -Type of Procedure Debridement -Clinical Debridement Subcutaneous -Post Debridement Size (cm) - Length 1.5 -Post Debridement Size (cm) - Width 0.5 -Post Debridement Size (cm) - Depth 0.3 -Total Square Cm 0.75 -Wound/Ulcer Outcome Not Healed -Ulcer Cleansing Rinsed/ Irrigated with Saline -Foul Odor after Cleansing No -Bioengineered Tissue No -Bleeding Controlled with Pressure -Offloading No -Treatment Response Procedure Tolerated Well #32 Left Posterior LE -Time 11:04 -Correct Patient Yes -Correct Side, Site, Position Yes -Correct Procedure Yes -Procedure Performed Yes -Type of Procedure Debridement -Clinical Debridement Subcutaneous -Post Debridement Size (cm) - Length 1.5 -Post Debridement Size (cm) - Width 1.3 -Post Debridement Size (cm) - Depth 0.7 -Total Square Cm 1.95 -Wound/Ulcer Outcome Not Healed -Ulcer Cleansing Rinsed/ Irrigated with Saline -Foul Odor after Cleansing No -Bioengineered Tissue No -Bleeding Controlled with Pressure -Offloading No -Treatment Response Procedure Tolerated Well # 31 L Forearm -Time 11:06 -Correct Patient Yes -Correct Side, Site, Position Yes -Correct Procedure Yes -Procedure Performed Yes -Type of Procedure Debridement -Clinical Debridement Subcutaneous -Post Debridement Size (cm) - Length 0.3 -Post Debridement Size (cm) - Width 0.2 -Post Debridement Size (cm) - Depth 0.1 -Total Square Cm 0.06 -Wound/Ulcer Outcome Not Healed -Ulcer Cleansing Rinsed/ Irrigated with Saline -Foul Odor after Cleansing No -Bioengineered Tissue No -Bleeding Controlled with Pressure -Offloading No -Treatment Response Procedure Tolerated Well 29-right superior lateral leg -Time 11:07 -Correct Patient Yes -Correct Side, Site, Position Yes -Correct Procedure Yes -Procedure Performed Yes -Type of Procedure Debridement -Clinical Debridement Subcutaneous -Post Debridement Size (cm) - Length 1.5 -Post Debridement Size (cm) - Width 0.5 -Post Debridement Size (cm) - Depth 1.8 -Total Square Cm 0.75 -Wound/Ulcer Outcome Not Healed -Ulcer Cleansing Rinsed/ Irrigated with Saline -Foul Odor after Cleansing No -Bioengineered Tissue No -Bleeding Controlled with Pressure -Offloading No -Treatment Response Procedure Tolerated Well 28-left lateral leg wound -Time 11:03 -Correct Patient Yes -Correct Side, Site, Position Yes -Correct Procedure Yes -Procedure Performed Yes -Type of Procedure Debridement -Clinical Debridement Subcutaneous -Post Debridement Size (cm) - Length 2 -Post Debridement Size (cm) - Width 4.5 -Post Debridement Size (cm) - Depth 0.5 -Total Square Cm 9.0 -Wound/Ulcer Outcome Not Healed -Ulcer Cleansing Rinsed/ Irrigated with Saline -Foul Odor after Cleansing No -Bioengineered Tissue No -Bleeding Controlled with Pressure -Offloading No -Treatment Response Procedure Tolerated Well Pain Scale: 0-10 Numeric Is Patient Pain Free? Yes Wound debrided: Right forearm Laterality: Right Type of Debridement: Excisional debridement Anesthesia Used: 4% Lidocaine Solution Depth: Down to and including healthy tissue, in the subcutaneous layer Percentage of wound debrided: 100 Instrument Used: 3mm curette Tissue Removed: Subcutaneous tissue and slough Severity: Limited To Skin Breakdown Amount of bleeding with debridement: Mild Bleeding Controlled with: Pressure Patient tolerated procedure well - Additional Wound Wound debrided: Left posterior lower leg/calf Laterality: Left Type of Debridement: Excisional debridement Anesthesia Used: 4% Lidocaine Solution Depth: Down to and including healthy tissue, in the subcutaneous layer Percentage of wound debrided: 100 Instrument Used: 7mm curette Tissue Removed: Subcutaneous tissue and slough Severity: Fat Layer Exposed Amount of bleeding with debridement: Mild Bleeding Controlled with: Pressure, Compression and gauze Patient tolerated procedure: Patient tolerated procedure well - Additional Wound Wound debrided: Left lower lateral leg ulcer Laterality: Left Type of Debridement: Excisional debridement Anesthesia Used: 4% Lidocaine Solution Depth: Down to and including healthy tissue, in the subcutaneous layer Percentage of wound debrided: 100 Instrument Used: 7mm curette Tissue Removed: Subcutaneous tissue and slough Severity: Fat Layer Exposed Amount of bleeding with debridement: Mild Bleeding Controlled with: Pressure Patient tolerated procedure: Patient tolerated procedure well - Additional Wound Wound debrided: left medial anterior foot (dorsal aspect) Laterality: Left Type of Debridement: Excisional debridement Anesthesia Used: 4% Lidocaine Solution Depth: Down to and including healthy tissue, in the subcutaneous layer Percentage of wound debrided: 100 Instrument Used: 7mm curette Tissue Removed: Subcutanous tissue and slough Severity: Fat Layer Exposed Bleeding Controlled with: Pressure Patient tolerated procedure: Patient tolerated procedure well - Additional Wound Wound debrided: right lateral lower leg ulcer Laterality: Right Type of Debridement: Excisional debridement Anesthesia Used: 4% Lidocaine Solution Depth: Down to and including healthy tissue, in the subcutaneous layer Percentage of wound debrided: 100 Instrument Used: 7mm curette Tissue Removed: Subcutaneous tissue and slough Severity: Fat Layer Exposed Amount of bleeding with debridement: Mild Patient tolerated procedure: Patient tolerated procedure well Assessment/Plan Active Problems (Last Updated 12/16/17 @ 17:12 by Sari Hawk DO) Skin tear of left forearm without complication (Acute) Venous insufficiency of both lower extremities (Chronic) Ulcer of left foot (Chronic) Ulcer of left calf (Chronic) Ulcer of left lower leg (Chronic) Nonhealing ulcer of right lower extremity with fat layer exposed (Chronic) Glioblastoma multiforme (Chronic) Debility, unspecified (Chronic) Assessment: 1. Nonhealing ulcer left lateral leg. 2. Nonhealing ulcer left posterior leg. 3. Nonhealing ulcer left medial anterior foot. 4. Nonhealing ulcer right superolateral leg. 5. Nonhealing ulcer left forearm. 6. Ulcer left knee, healed. 7. Chronic venous disease with insufficiency. 8. Brain tumor - received chemotherapy. Plan: Stop Collagen Hydrogel to the ulcers and will start Suzanne daily to the ulcers followed by tubigrip for compression to minimize swelling and to help with the healing process from her chronic venous disease and insufficiency. Continue samuel guards to minimize further trauma. I suspect she will never be totally healed because when one ulcer heals, she will fall or bump her legs and develop another ulcer. She had restarted her chemotherapy for her brain tumor because it has grown. She was told the chemotherapy has helped to decrease the tumor at this time as the chemotherapy was stopped because of the new onset wounds. Instructed her to talk to her oncologist to restart her chemo because she will perpetually have opened wounds. Eventually her balance will worsen and her eyesight will worsen and she will have no choice but to go to an ECF. Right now she wants to try and stay at home. Her Prealbumin from 01/25/18 was 30.8. Encourage nutritional supplementation with protein to help the healing process. If healing is suboptimal, will obtain a wound culture. A positive culture will necessitate antibiotic therapy. To try and speed up the healing process, she would be a candidate for PuraPly Antimicrobial Wound Matrix. Will check with her insurance for medical approval. Followup one week. Code Visit [id number]: [id number] Debbi subq tissue 20 sq cm/<
[2019-01-22 09:08] VITALS: BP 126/95; PULSE 69; RESP 20; TEMP 36.2
--- NOTE | 2019-01-22 12:42 | PCM.WC.PN ---
(1) Ulcer of left foot Status: Chronic Code(s): L97.529 - Non-pressure chronic ulcer of other part of left foot with unspecified severity (2) Ulcer of left calf Status: Chronic Code(s): L97.229 - Non-pressure chronic ulcer of left calf with unspecified severity (3) Ulcer of left lower leg Status: Chronic Code(s): L97.929 - Non-pressure chronic ulcer of unspecified part of left lower leg with unspecified severity (4) Nonhealing ulcer of right lower extremity with fat layer exposed Status: Chronic Code(s): L97.912 - Non-pressure chronic ulcer of unspecified part of right lower leg with fat layer exposed (5) Venous insufficiency of both lower extremities Status: Chronic Code(s): I87.2 - Venous insufficiency (chronic) (peripheral) (6) Glioblastoma multiforme Status: Chronic Code(s): C71.9 - Malignant neoplasm of brain, unspecified (7) Debility, unspecified Status: Chronic Code(s): R53.81 - Other malaise Type of Wound Date of Service: 01/22/19 Chief Complaint: Nonhealing traumatic wounds left lateral leg and right lateral leg. History of Wound: Patient has had nonhealing ulcers on her lower extremities that required surgery with skin grafts, and wound care, and antibiotics and HBO treatments. They resulted initially from her chemotherapy for her brain tumor. They have finally healed earlier this year and she restarted her chemotherapy. She lives at home alone. Her family does visit her. She has started wearing soft samuel guards. However she bumps into things at home a lot and occasionally will fall down. Her skin is quite thin and she develops intermittent abrasions and subsequent ulcerations. Because of these ulcers, her chemotherapy has been put on hold according to the patient. She states the chemotherapy that she did receive recently has decreased the tumor at this point. Today she denies fever. Her appetite is ok. She also has chronic swelling in her legs from chronic venous disease and insufficiency. This chronic swelling will thin the skin as well and contribute to the nonhealing ulcers. Progress of Wound: Multiple opened areas on lower legs. Left forearm is healed. - Physical Exam Vital Signs Temp Pulse Resp BP 97.1 F L 69 20 H 126/95 H 01/22/19 09:08 01/22/19 09:08 01/22/19 09:08 01/22/19 09:08 General: Alert, Cooperative HEENT: Atraumatic Oral: Moist Mucosa Lungs: Normal air movement Cardiovascular: Regular rate Abdomen: Soft Extremities: Capillary Refill Less than 3 Seconds, Diminished Peripheral Pulses, Edema Skin: Ulcer/ Wound - Ulcer of right posterior lateral lower leg, left foot, left posterior lower leg and left lateral lower leg Wound Measurements and Assessment WC - Nurse 1 - General Ulcer Measurement Start: 01/15/19 10:23 Freq: Status: Active Protocol: Activity Type Activity Date Activity User E-Sign Co-Sign Detail Recorded Client Recorded Date Recorded By Document 01/22/19 09:08 DL [id number] 01/22/19 09:27 DL 01/22/19 09:08 Wound Center Nurse 1 [Ulcer Assessment] #33 Left Medial Anterior Foot -Current Size (cm) - Length 1.1 -Current Size (cm) - Width 0.6 -Current Size (cm) - Depth 0.2 -Total Square Cm 0.66 -Photo Taken No -Exudate Amt None Present -Wound Margin Distinct, Outline Attached -Granulation Amt Small (1-33%) -Granulation Quality [place] -Necrosis Amt Small (1-33%) -Necrotic Tissue Type Adherent Slough -Structure Exposed N/A -Texture (Riddhi-wound Skin Appearance) Scarring -Moisture (Riddhi-wound Skin Appearance Dry/Scaly ) -Color (Riddhi-wound Skin Appearance) Ecchymosis, Hemosiderin Staining,Rubor -Temperature (Riddhi-wound Skin No Abnormality Appearance) (Pt Warm) -Tenderness on Palpation (Riddhi-wound No Skin Appearance) -Ulcer Cleansing Wound Cleanser -Foul Odor after Cleansing No -Anesthetic Used 5% Lidocaine Gel #32 Left Posterior LE -Current Size (cm) - Length 1.6 -Current Size (cm) - Width 0.5 -Current Size (cm) - Depth 0.6 -Total Square Cm 0.80 -Photo Taken No -Exudate Amt Small -Exudate Type Serosanguineous -Wound Margin Distinct, Outline Attached -Granulation Amt Small (1-33%) -Granulation Quality Red -Necrosis Amt Small (1-33%) -Necrotic Tissue Type Adherent Slough -Texture (Riddhi-wound Skin Appearance) Scarring -Moisture (Riddhi-wound Skin Appearance No Abnormality ) -Color (Riddhi-wound Skin Appearance) Ecchymosis, Hemosiderin Staining,Rubor -Tenderness on Palpation (Riddhi-wound No Skin Appearance) -Ulcer Cleansing Wound Cleanser -Foul Odor after Cleansing No -Anesthetic Used 5% Lidocaine Gel 29-right superior lateral leg -Current Size (cm) - Length 0.6 -Current Size (cm) - Width 1.8 -Current Size (cm) - Depth 0.9 -Total Square Cm 1.08 -Photo Taken No -Tunneling Position (O'clock) 16 -Tunneling Distance (cm) 0.6 -Exudate Amt Small -Exudate Type Serosanguineous -Wound Margin Distinct, Outline Attached -Granulation Amt Large (67-100%) -Granulation Quality Red -Necrosis Amt Small (1-33%) -Necrotic Tissue Type Adherent Slough -Structure Exposed Fat Layer Exposed -Texture (Riddhi-wound Skin Appearance) Scarring -Moisture (Riddhi-wound Skin Appearance No Abnormality ) -Color (Riddhi-wound Skin Appearance) Ecchymosis, Hemosiderin Staining,Rubor -Temperature (Riddhi-wound Skin No Abnormality Appearance) (Pt Warm) -Tenderness on Palpation (Riddhi-wound No Skin Appearance) -Ulcer Cleansing Wound Cleanser -Foul Odor after Cleansing No -Anesthetic Used 5% Lidocaine Gel 28-left lateral leg wound -Current Size (cm) - Length 2.8 -Current Size (cm) - Width 3.5 -Current Size (cm) - Depth 0.5 -Total Square Cm 9.80 -Photo Taken No -Exudate Amt Small -Exudate Type Serosanguineous -Wound Margin Distinct, Outline Attached -Granulation Amt Medium (34-66%) -Granulation Quality [place],Red -Necrosis Amt Medium (34-66%) -Necrotic Tissue Type Adherent Slough -Structure Exposed N/A -Texture (Riddhi-wound Skin Appearance) Scarring -Moisture (Riddhi-wound Skin Appearance No Abnormality ) -Color (Riddhi-wound Skin Appearance) Ecchymosis, Hemosiderin Staining,Rubor -Temperature (Riddhi-wound Skin No Abnormality Appearance) (Pt Warm) -Tenderness on Palpation (Riddhi-wound No Skin Appearance) -Ulcer Cleansing Wound Cleanser -Foul Odor after Cleansing No -Anesthetic Used 5% Lidocaine Gel [Edema Assessment] -Right Calf (cm) 35.5 -Right Ankle (cm) 19.8 -Left Calf (cm) 32.8 -Left Ankle (cm) 20.2 WC - Nurse 2 - General Ulcer CM Notes Start: 01/15/19 10:23 Freq: Status: Active Protocol: Activity Type Activity Date Activity User E-Sign Co-Sign Detail Recorded Client Recorded Date Recorded By Document 01/22/19 09:35 RANDY [id number] 01/22/19 09:42 RANDY 01/22/19 09:35 Wound Center Nurse 2 [Procedure/Treatment] #33 Left Medial Anterior Foot -Time 09:38 -Correct Patient Yes -Correct Side, Site, Position Yes -Correct Procedure Yes -Procedure Performed Yes -Type of Procedure Debridement -Clinical Debridement Subcutaneous -Post Debridement Size (cm) - Length 1.4 -Post Debridement Size (cm) - Width 0.5 -Post Debridement Size (cm) - Depth 0.3 -Total Square Cm 0.70 -Wound/Ulcer Outcome Not Healed -Ulcer Cleansing Rinsed/ Irrigated with Saline -Foul Odor after Cleansing No -Bioengineered Tissue No -Bleeding Controlled with Pressure -Offloading No -Treatment Response Procedure Tolerated Well #32 Left Posterior LE -Time 09:37 -Correct Patient Yes -Correct Side, Site, Position Yes -Correct Procedure Yes -Procedure Performed Yes -Type of Procedure Debridement -Clinical Debridement Subcutaneous -Post Debridement Size (cm) - Length 1.8 -Post Debridement Size (cm) - Width 1 -Post Debridement Size (cm) - Depth 1 -Total Square Cm 1.8 -Wound/Ulcer Outcome Not Healed -Ulcer Cleansing Rinsed/ Irrigated with Saline -Foul Odor after Cleansing No -Bioengineered Tissue No -Bleeding Controlled with Pressure -Offloading No -Treatment Response Procedure Tolerated Well 29-right superior lateral leg -Time 09:39 -Correct Patient Yes -Correct Side, Site, Position Yes -Correct Procedure Yes -Procedure Performed Yes -Type of Procedure Debridement -Clinical Debridement Subcutaneous -Post Debridement Size (cm) - Length 0.5 -Post Debridement Size (cm) - Width 0.5 -Post Debridement Size (cm) - Depth 1.4 -Total Square Cm 0.25 -Wound/Ulcer Outcome Not Healed -Ulcer Cleansing Rinsed/ Irrigated with Saline -Foul Odor after Cleansing No -Bioengineered Tissue No -Bleeding Controlled with Pressure -Offloading No -Treatment Response Procedure Tolerated Well 28-left lateral leg wound -Time 09:36 -Correct Patient Yes -Correct Side, Site, Position Yes -Correct Procedure Yes -Procedure Performed Yes -Type of Procedure Debridement -Clinical Debridement Subcutaneous -Post Debridement Size (cm) - Length 2.0 -Post Debridement Size (cm) - Width 3.8 -Post Debridement Size (cm) - Depth 0.4 -Total Square Cm 7.60 -Wound/Ulcer Outcome Not Healed -Ulcer Cleansing Rinsed/ Irrigated with Saline -Foul Odor after Cleansing No -Bioengineered Tissue No -Bleeding Controlled with Pressure -Offloading No -Treatment Response Procedure Tolerated Well [See Physician Procedure note for Specifics] Pain Scale: 0-10 Numeric [Pain] -Is Patient Pain Free? Yes Musculoskeletal: No Tenderness to Palpation of Joints or Extremities Neurological: Neuro grossly intact Psych/Mental Status: Normal Affect Debridement Note Post-Debridement Measurements/Treatment WC - Nurse 2 - General Ulcer CM Notes Start: 01/15/19 10:23 Freq: Status: Active Protocol: Activity Type Activity Date Activity User E-Sign Co-Sign Detail Recorded Client Recorded Date Recorded By Document 01/15/19 11:00 [id number] 01/15/19 11:09 Document 01/22/19 09:35 [id number] 01/22/19 09:42 01/15/19 01/22/19 11:00 09:35 Wound Center Nurse 2 #33 Left Medial Anterior Foot -Time 11:05 09:38 -Correct Patient Yes Yes -Correct Side, Site, Position Yes Yes -Correct Procedure Yes Yes -Procedure Performed Yes Yes -Type of Procedure Debridement Debridement -Clinical Debridement Subcutaneous Subcutaneous -Post Debridement Size (cm) - Length 1.5 1.4 -Post Debridement Size (cm) - Width 0.5 0.5 -Post Debridement Size (cm) - Depth 0.3 0.3 -Total Square Cm 0.75 0.70 -Wound/Ulcer Outcome Not Healed Not Healed -Ulcer Cleansing Rinsed/ Rinsed/ Irrigated with Irrigated with Saline Saline -Foul Odor after Cleansing No No -Bioengineered Tissue No No -Bleeding Controlled with Pressure Pressure -Offloading No No -Treatment Response Procedure Procedure Tolerated Well Tolerated Well #32 Left Posterior LE -Time 11:04 09:37 -Correct Patient Yes Yes -Correct Side, Site, Position Yes Yes -Correct Procedure Yes Yes -Procedure Performed Yes Yes -Type of Procedure Debridement Debridement -Clinical Debridement Subcutaneous Subcutaneous -Post Debridement Size (cm) - Length 1.5 1.8 -Post Debridement Size (cm) - Width 1.3 1 -Post Debridement Size (cm) - Depth 0.7 1 -Total Square Cm 1.95 1.8 -Wound/Ulcer Outcome Not Healed Not Healed -Ulcer Cleansing Rinsed/ Rinsed/ Irrigated with Irrigated with Saline Saline -Foul Odor after Cleansing No No -Bioengineered Tissue No No -Bleeding Controlled with Pressure Pressure -Offloading No No -Treatment Response Procedure Procedure Tolerated Well Tolerated Well # 31 L Forearm -Time 11:06 -Correct Patient Yes -Correct Side, Site, Position Yes -Correct Procedure Yes -Procedure Performed Yes -Type of Procedure Debridement -Clinical Debridement Subcutaneous -Post Debridement Size (cm) - Length 0.3 -Post Debridement Size (cm) - Width 0.2 -Post Debridement Size (cm) - Depth 0.1 -Total Square Cm 0.06 -Wound/Ulcer Outcome Not Healed -Ulcer Cleansing Rinsed/ Irrigated with Saline -Foul Odor after Cleansing No -Bioengineered Tissue No -Bleeding Controlled with Pressure -Offloading No -Treatment Response Procedure Tolerated Well 29-right superior lateral leg -Time 11:07 09:39 -Correct Patient Yes Yes -Correct Side, Site, Position Yes Yes -Correct Procedure Yes Yes -Procedure Performed Yes Yes -Type of Procedure Debridement Debridement -Clinical Debridement Subcutaneous Subcutaneous -Post Debridement Size (cm) - Length 1.5 0.5 -Post Debridement Size (cm) - Width 0.5 0.5 -Post Debridement Size (cm) - Depth 1.8 1.4 -Total Square Cm 0.75 0.25 -Wound/Ulcer Outcome Not Healed Not Healed -Ulcer Cleansing Rinsed/ Rinsed/ Irrigated with Irrigated with Saline Saline -Foul Odor after Cleansing No No -Bioengineered Tissue No No -Bleeding Controlled with Pressure Pressure -Offloading No No -Treatment Response Procedure Procedure Tolerated Well Tolerated Well 28-left lateral leg wound -Time 11:03 09:36 -Correct Patient Yes Yes -Correct Side, Site, Position Yes Yes -Correct Procedure Yes Yes -Procedure Performed Yes Yes -Type of Procedure Debridement Debridement -Clinical Debridement Subcutaneous Subcutaneous -Post Debridement Size (cm) - Length 2 2.0 -Post Debridement Size (cm) - Width 4.5 3.8 -Post Debridement Size (cm) - Depth 0.5 0.4 -Total Square Cm 9.0 7.60 -Wound/Ulcer Outcome Not Healed Not Healed -Ulcer Cleansing Rinsed/ Rinsed/ Irrigated with Irrigated with Saline Saline -Foul Odor after Cleansing No No -Bioengineered Tissue No No -Bleeding Controlled with Pressure Pressure -Offloading No No -Treatment Response Procedure Procedure Tolerated Well Tolerated Well Pain Scale: 0-10 Numeric Is Patient Pain Free? Yes Yes Wound debrided: right posterior lateral lower leg Type of Debridement: Excisional debridement Anesthesia Used: 5% Lidocaine Gel Depth: Down to and including healthy tissue, in the subcutaneous layer Percentage of wound debrided: 100 Instrument Used: 5mm curette Tissue Removed: Subcutaneous tissue and slough Severity: Fat Layer Exposed Amount of bleeding with debridement: Mild Bleeding Controlled with: Compression and gauze Patient tolerated procedure well - Additional Wound Wound debrided: left foot Laterality: Left Type of Debridement: Excisional debridement Anesthesia Used: 5% Lidocaine Gel Depth: Down to and including healthy tissue, in the subcutaneous layer Percentage of wound debrided: 100 Instrument Used: 5mm curette Tissue Removed: subcutaneous tissue and slough Severity: Fat Layer Exposed Amount of bleeding with debridement: Mild Bleeding Controlled with: Compression and gauze Patient tolerated procedure: Patient tolerated procedure well - Additional Wound Wound debrided: Left lateral lower leg Laterality: Left Type of Debridement: Excisional debridement Anesthesia Used: 5% Lidocaine Gel Depth: Down to and including healthy tissue, in the subcutaneous layer Percentage of wound debrided: 100 Instrument Used: 5mm curette Tissue Removed: subcutaneous tissue and slough Severity: Fat Layer Exposed Bleeding Controlled with: Compression and gauze Patient tolerated procedure: Patient tolerated procedure well - Additional Wound Wound debrided: left posterior leg Laterality: Left Type of Debridement: Excisional debridement Anesthesia Used: 5% Lidocaine Gel Depth: Down to and including healthy tissue, in the subcutaneous layer Percentage of wound debrided: 100 Instrument Used: 5mm curette Tissue Removed: Subcutaneous tissue and slough Severity: Fat Layer Exposed Amount of bleeding with debridement: Mild Bleeding Controlled with: Compression and gauze Patient tolerated procedure: Patient tolerated procedure well Assessment/Plan Assessment: 1. Nonhealing ulcer left lateral leg. 2. Nonhealing ulcer left posterior leg. 3. Nonhealing ulcer left medial anterior foot. 4. Nonhealing ulcer right superolateral leg. 5. Nonhealing ulcer left forearm. 6. Ulcer left knee, healed. 7. Chronic venous disease with insufficiency. 8. Brain tumor - received chemotherapy. Plan: Continue Suzanne daily to the ulcers followed by tubigrip for compression to minimize swelling and to help with the healing process from her chronic venous disease and insufficiency. Continue samuel guards to minimize further trauma. I suspect she will never be totally healed because when one ulcer heals, she will fall or bump her legs and develop another ulcer. She had restarted her chemotherapy for her brain tumor because it has grown. She was told the chemotherapy has helped to decrease the tumor at this time as the chemotherapy was stopped because of the new onset wounds. Instructed her to talk to her oncologist to restart her chemo because she will perpetually have opened wounds. Eventually her balance will worsen and her eyesight will worsen and she will have no choice but to go to an ECF. Right now she wants to try and stay at home. Her Prealbumin from 01/25/18 was 30.8. Encourage nutritional supplementation with protein to help the healing process. If healing is suboptimal, will obtain a wound culture. A positive culture will necessitate antibiotic therapy. To try and speed up the healing process, she would be a candidate for PuraPly Antimicrobial Wound Matrix was denied. Followup two weeks. Code Visit [id number]: 13981 Debbi subq tissue 20 sq cm/<
== END 2019-02-14 23:59 ==
LOC: WC 08:45
PROVIDERS: Family Provider Student in an Organized Health Care Education/Training Program; PCP Student in an Organized Health Care Education/Training Program; Visit Provider Surgery
DX: S51.812A Laceration without foreign body of left forearm, initial encounter (principal); C71.9 Malignant neoplasm of brain, unspecified; I73.9 Peripheral vascular disease, unspecified; M79.89 Other specified soft tissue disorders; X58.XXXA Exposure to other specified factors, initial encounter; L97.822 Non-pressure chronic ulcer of other part of left lower leg with fat layer exposed; L97.812 Non-pressure chronic ulcer of other part of right lower leg with fat layer exposed; L97.522 Non-pressure chronic ulcer of other part of left foot with fat layer exposed; I87.2 Venous insufficiency (chronic) (peripheral)
CPT/HCPCS: 11042

== ENCOUNTER 2019-03-05 08:45 | Outpatient (RCR) | payer MEDICARE, SELFPAY ==
[2019-02-15 00:49] VITALS: BP 123/72; PULSE 64; RESP 16; TEMP 35.4
[2019-02-19 09:59] VITALS: BP 121/82; PULSE 77; TEMP 36.2
--- NOTE | 2019-02-19 10:56 | PCM.WC.PN ---
(1) Ulcer of left foot Status: Chronic Current Visit: Yes Code(s): L97.529 - Non-pressure chronic ulcer of other part of left foot with unspecified severity (2) Ulcer of left calf Status: Chronic Current Visit: Yes Code(s): L97.229 - Non-pressure chronic ulcer of left calf with unspecified severity (3) Ulcer of left lower leg Status: Chronic Current Visit: Yes Code(s): L97.929 - Non-pressure chronic ulcer of unspecified part of left lower leg with unspecified severity (4) Nonhealing ulcer of right lower extremity with fat layer exposed Status: Chronic Current Visit: Yes Code(s): L97.912 - Non-pressure chronic ulcer of unspecified part of right lower leg with fat layer exposed (5) Venous insufficiency of both lower extremities Status: Chronic Current Visit: Yes Code(s): I87.2 - Venous insufficiency (chronic) (peripheral) (6) Glioblastoma multiforme Status: Chronic Current Visit: Yes Code(s): C71.9 - Malignant neoplasm of brain, unspecified (7) Debility, unspecified Status: Chronic Current Visit: Yes Code(s): R53.81 - Other malaise Type of Wound Date of Service: 02/19/19 Chief Complaint: Superficial abrasions bilateral legs. History of Wound: Patient's nonhealing ulcers and skin grafts that started over a year ago and required multiple surgical procedures with wound care, antibiotics and HBO treatments. She was living home alone, but her niece moved in with her a couple months ago. Her family does visit her often. She has started wearing soft samuel guards. However she bumps into things at home a lot and occasionally will fall down. Her skin is quite thin and she develops intermittent abrasions. She has had a recent MRI Brain and the tumor has grown. It has been reported that she needs chemotherapy but they were waiting for her ulcers to heal. Due to the fact that she has chronic ulcers and is constantly creating new ones, it is suggested that they start doing her chemo and we will deal with the ulcers. Wound care is marcie. Progress of Wound: Left posterior leg and left medial foot ulcers are healed today. Right lateral leg, left anterior leg and left lateral leg are improving. No new wounds/ulcers today. - Physical Exam Vital Signs Temp Pulse Resp BP 97.1 F L 77 16 121/82 H 02/19/19 09:59 02/19/19 09:59 02/15/19 00:49 02/19/19 09:59 General: Alert, Cooperative HEENT: Atraumatic Oral: Moist Mucosa Lungs: Normal air movement Cardiovascular: Regular rate Extremities: Capillary Refill Less than 3 Seconds, Edema, Peripheral Pulses Normal Skin: Ulcer/ Wound - Right posterior leg, left anterior leg and left lateral leg ulcers Wound Measurements and Assessment WC - Nurse 1 - General Ulcer Measurement Start: 02/19/19 09:59 Freq: Status: Active Protocol: Activity Type Activity Date Activity User E-Sign Co-Sign Detail Recorded Client Recorded Date Recorded By Document 02/19/19 09:59 MW [id number] 02/19/19 10:15 MW 02/19/19 09:59 Wound Center Nurse 1 [Ulcer Assessment] #34 left samuel -Combined with other wound No -Current Size (cm) - Length 1.5 -Current Size (cm) - Width 3.3 -Current Size (cm) - Depth 0.3 -Total Square Cm 4.95 -Date of Last Picture (Recall this 02/19/19 field) -Photo Taken Yes -Epithelialization Small 1-33% -Tunneling No -Undermining/Tunneling No -Circular Undermining No -Exudate Amt Small -Exudate Type Serosanguineous -Wound Margin Flat & Intact -Granulation Amt Large (67-100%) -Granulation Quality Red -Slough/Fibrin Yes -Necrosis Amt Small (1-33%) -Necrotic Tissue Type Adherent Slough -Structure Exposed N/A -Texture (Riddhi-wound Skin Appearance) Assessed, Localized Edema ,Scarring -Moisture (Riddhi-wound Skin Appearance Assessed,Dry/ ) Scaly -Color (Riddhi-wound Skin Appearance) Assessed -Temperature (Riddhi-wound Skin No Abnormality Appearance) (Pt Warm) -Ulcer Cleansing Rinsed/ Irrigated with Saline -Foul Odor after Cleansing No -Anesthetic Used 4% Lidocaine Solution #33 Left Medial Anterior Foot -Combined with other wound No -Current Size (cm) - Length 0.1 -Current Size (cm) - Width 0.1 -Current Size (cm) - Depth 0.1 -Total Square Cm 0.01 -Date of Last Picture (Recall this 02/19/19 field) -Photo Taken Yes -Epithelialization Large 67-100% -Tunneling No -Undermining/Tunneling No -Circular Undermining No -Exudate Amt None Present -Wound Margin Flat & Intact -Granulation Amt None Present (0 %) -Granulation Quality N/A -Slough/Fibrin Yes -Necrosis Amt Small (1-33%) -Necrotic Tissue Type Adherent Slough -Structure Exposed N/A -Texture (Riddhi-wound Skin Appearance) Assessed, Localized Edema ,Scarring -Moisture (Riddhi-wound Skin Appearance Assessed,Dry/ ) Scaly -Color (Riddhi-wound Skin Appearance) No Abnormality, Assessed -Temperature (Riddhi-wound Skin No Abnormality Appearance) (Pt Warm) -Tenderness on Palpation (Riddhi-wound Yes Skin Appearance) -Ulcer Cleansing Rinsed/ Irrigated with Saline -Foul Odor after Cleansing No -Anesthetic Used 4% Lidocaine Solution #32 Left Posterior LE -Combined with other wound No -Current Size (cm) - Length 0.1 -Current Size (cm) - Width 0.1 -Current Size (cm) - Depth 0.1 -Total Square Cm 0.01 -Date of Last Picture (Recall this 02/19/19 field) -Photo Taken Yes -Epithelialization Large 67-100% -Tunneling No -Undermining/Tunneling No -Circular Undermining No -Exudate Amt None Present -Wound Margin Flat & Intact -Granulation Amt None Present (0 %) -Granulation Quality N/A -Slough/Fibrin Yes -Necrosis Amt Small (1-33%) -Necrotic Tissue Type Adherent Slough -Structure Exposed N/A -Texture (Riddhi-wound Skin Appearance) Assessed, Localized Edema ,Scarring -Moisture (Riddhi-wound Skin Appearance Assessed,Dry/ ) Scaly -Color (Riddhi-wound Skin Appearance) No Abnormality, Assessed -Temperature (Riddhi-wound Skin No Abnormality Appearance) (Pt Warm) -Tenderness on Palpation (Riddhi-wound Yes Skin Appearance) -Ulcer Cleansing Rinsed/ Irrigated with Saline -Foul Odor after Cleansing No -Anesthetic Used 4% Lidocaine Solution 29-right superior lateral leg -Combined with other wound No -Current Size (cm) - Length 0.1 -Current Size (cm) - Width 0.1 -Current Size (cm) - Depth 0.1 -Total Square Cm 0.01 -Date of Last Picture (Recall this 02/19/19 field) -Photo Taken Yes -Epithelialization None Present -Tunneling No -Undermining/Tunneling No -Circular Undermining No -Exudate Amt None Present -Wound Margin Flat & Intact -Granulation Amt None Present (0 %) -Granulation Quality N/A -Necrosis Amt Small (1-33%) -Necrotic Tissue Type Adherent Slough -Structure Exposed N/A -Texture (Riddhi-wound Skin Appearance) Assessed, Localized Edema ,Scarring -Moisture (Riddhi-wound Skin Appearance Assessed,Dry/ ) Scaly -Color (Riddhi-wound Skin Appearance) No Abnormality, Assessed -Temperature (Riddhi-wound Skin No Abnormality Appearance) (Pt Warm) -Tenderness on Palpation (Riddhi-wound No Skin Appearance) -Ulcer Cleansing Rinsed/ Irrigated with Saline -Foul Odor after Cleansing No -Anesthetic Used 4% Lidocaine Solution 28-left lateral leg wound -Combined with other wound No -Current Size (cm) - Length 0.7 -Current Size (cm) - Width 0.2 -Current Size (cm) - Depth 0.2 -Total Square Cm 0.14 -Date of Last Picture (Recall this 02/19/19 field) -Photo Taken Yes -Epithelialization Small 1-33% -Tunneling No -Undermining/Tunneling No -Circular Undermining No -Exudate Amt Small -Exudate Type Serosanguineous -Wound Margin Flat & Intact -Granulation Amt Large (67-100%) -Granulation Quality [place] -Slough/Fibrin Yes -Necrosis Amt Small (1-33%) -Necrotic Tissue Type Adherent Slough -Structure Exposed N/A -Texture (Riddhi-wound Skin Appearance) Assessed, Localized Edema ,Scarring -Moisture (Riddhi-wound Skin Appearance Assessed,Dry/ ) Scaly -Color (Riddhi-wound Skin Appearance) No Abnormality, Assessed -Temperature (Riddhi-wound Skin No Abnormality Appearance) (Pt Warm) -Tenderness on Palpation (Riddhi-wound Yes Skin Appearance) -Ulcer Cleansing Rinsed/ Irrigated with Saline -Foul Odor after Cleansing No -Anesthetic Used 4% Lidocaine Solution [Edema Assessment] -Lower Limb Edema Present Yes -Right Calf (cm) 35.0 -Right Ankle (cm) 19.5 -Left Calf (cm) 33.5 -Left Ankle (cm) 20.5 WC - Nurse 2 - General Ulcer CM Notes Start: 02/19/19 09:59 Freq: Status: Active Protocol: Activity Type Activity Date Activity User E-Sign Co-Sign Detail Recorded Client Recorded Date Recorded By Document 02/19/19 10:38 RANDY [id number] 02/19/19 10:44 RANDY 02/19/19 10:38 Wound Center Nurse 2 [Procedure/Treatment] #34 left samuel -Time 10:42 -Correct Patient Yes -Correct Side, Site, Position Yes -Correct Procedure Yes -Procedure Performed Yes -Type of Procedure Debridement -Clinical Debridement Subcutaneous -Post Debridement Size (cm) - Length 1.7 -Post Debridement Size (cm) - Width 3.0 -Post Debridement Size (cm) - Depth 0.3 -Total Square Cm 5.10 -Wound/Ulcer Outcome Not Healed -Ulcer Cleansing Rinsed/ Irrigated with Saline -Foul Odor after Cleansing No -Bioengineered Tissue No -Bleeding Controlled with Pressure -Offloading No -Treatment Response Procedure Tolerated Well #33 Left Medial Anterior Foot -Correct Patient No -Correct Side, Site, Position No -Correct Procedure No -Procedure Performed No -Post Debridement Size (cm) - Length 0 -Post Debridement Size (cm) - Width 0 -Post Debridement Size (cm) - Depth 0 -Total Square Cm 0 -Wound/Ulcer Outcome Healed- Epithelialized #32 Left Posterior LE -Correct Patient No -Correct Side, Site, Position No -Correct Procedure No -Procedure Performed No -Post Debridement Size (cm) - Length 0 -Post Debridement Size (cm) - Width 0 -Post Debridement Size (cm) - Depth 0 -Total Square Cm 0 -Wound/Ulcer Outcome Healed- Epithelialized 29-right superior lateral leg -Time 10:39 -Correct Patient Yes -Correct Side, Site, Position Yes -Correct Procedure Yes -Procedure Performed Yes -Type of Procedure Debridement -Clinical Debridement Subcutaneous -Post Debridement Size (cm) - Length 0.5 -Post Debridement Size (cm) - Width 0.3 -Post Debridement Size (cm) - Depth 0.3 -Total Square Cm 0.15 -Wound/Ulcer Outcome Not Healed -Ulcer Cleansing Rinsed/ Irrigated with Saline -Foul Odor after Cleansing No -Bioengineered Tissue No -Bleeding Controlled with Pressure -Offloading No -Treatment Response Procedure Tolerated Well 28-left lateral leg wound -Time 10:41 -Correct Patient Yes -Correct Side, Site, Position Yes -Correct Procedure Yes -Procedure Performed Yes -Type of Procedure Debridement -Clinical Debridement Subcutaneous -Post Debridement Size (cm) - Length 1.0 -Post Debridement Size (cm) - Width 0.5 -Post Debridement Size (cm) - Depth 0.3 -Total Square Cm 0.50 -Wound/Ulcer Outcome Not Healed -Ulcer Cleansing Rinsed/ Irrigated with Saline -Foul Odor after Cleansing No -Bioengineered Tissue No -Bleeding Controlled with Pressure -Offloading No -Treatment Response Procedure Tolerated Well [See Physician Procedure note for Specifics] Pain Scale: 0-10 Numeric [Pain] -Is Patient Pain Free? Yes Musculoskeletal: No Tenderness to Palpation of Joints or Extremities Neurological: Neuro grossly intact Psych/Mental Status: Normal Affect, Appropriate Debridement Note Post-Debridement Measurements/Treatment WC - Nurse 2 - General Ulcer CM Notes Start: 02/19/19 09:59 Freq: Status: Active Protocol: Activity Type Activity Date Activity User E-Sign Co-Sign Detail Recorded Client Recorded Date Recorded By Document 02/19/19 10:38 RANDY [id number] 02/19/19 10:44 RANDY 02/19/19 10:38 Wound Center Nurse 2 #34 left samuel -Time 10:42 -Correct Patient Yes -Correct Side, Site, Position Yes -Correct Procedure Yes -Procedure Performed Yes -Type of Procedure Debridement -Clinical Debridement Subcutaneous -Post Debridement Size (cm) - Length 1.7 -Post Debridement Size (cm) - Width 3.0 -Post Debridement Size (cm) - Depth 0.3 -Total Square Cm 5.10 -Wound/Ulcer Outcome Not Healed -Ulcer Cleansing Rinsed/ Irrigated with Saline -Foul Odor after Cleansing No -Bioengineered Tissue No -Bleeding Controlled with Pressure -Offloading No -Treatment Response Procedure Tolerated Well #33 Left Medial Anterior Foot -Correct Patient No -Correct Side, Site, Position No -Correct Procedure No -Procedure Performed No -Post Debridement Size (cm) - Length 0 -Post Debridement Size (cm) - Width 0 -Post Debridement Size (cm) - Depth 0 -Total Square Cm 0 -Wound/Ulcer Outcome Healed- Epithelialized #32 Left Posterior LE -Correct Patient No -Correct Side, Site, Position No -Correct Procedure No -Procedure Performed No -Post Debridement Size (cm) - Length 0 -Post Debridement Size (cm) - Width 0 -Post Debridement Size (cm) - Depth 0 -Total Square Cm 0 -Wound/Ulcer Outcome Healed- Epithelialized 29-right superior lateral leg -Time 10:39 -Correct Patient Yes -Correct Side, Site, Position Yes -Correct Procedure Yes -Procedure Performed Yes -Type of Procedure Debridement -Clinical Debridement Subcutaneous -Post Debridement Size (cm) - Length 0.5 -Post Debridement Size (cm) - Width 0.3 -Post Debridement Size (cm) - Depth 0.3 -Total Square Cm 0.15 -Wound/Ulcer Outcome Not Healed -Ulcer Cleansing Rinsed/ Irrigated with Saline -Foul Odor after Cleansing No -Bioengineered Tissue No -Bleeding Controlled with Pressure -Offloading No -Treatment Response Procedure Tolerated Well 28-left lateral leg wound -Time 10:41 -Correct Patient Yes -Correct Side, Site, Position Yes -Correct Procedure Yes -Procedure Performed Yes -Type of Procedure Debridement -Clinical Debridement Subcutaneous -Post Debridement Size (cm) - Length 1.0 -Post Debridement Size (cm) - Width 0.5 -Post Debridement Size (cm) - Depth 0.3 -Total Square Cm 0.50 -Wound/Ulcer Outcome Not Healed -Ulcer Cleansing Rinsed/ Irrigated with Saline -Foul Odor after Cleansing No -Bioengineered Tissue No -Bleeding Controlled with Pressure -Offloading No -Treatment Response Procedure Tolerated Well Pain Scale: 0-10 Numeric Is Patient Pain Free? Yes Wound debrided: Right posterior leg Laterality: Right Type of Debridement: Excisional debridement Anesthesia Used: 4% Lidocaine Solution Depth: Down to and including healthy tissue, in the subcutaneous layer Percentage of wound debrided: 100 Instrument Used: 3mm curette Tissue Removed: Subcutaneous tissue and slough Severity: Fat Layer Exposed Amount of bleeding with debridement: Mild Bleeding Controlled with: Compression and gauze Patient tolerated procedure well - Additional Wound Wound debrided: Left anterior leg Laterality: Left Type of Debridement: Excisional debridement Anesthesia Used: 4% Lidocaine Solution Depth: Down to and including healthy tissue, in the subcutaneous layer Percentage of wound debrided: 100 Instrument Used: 3mm curette Tissue Removed: Subcutaneous tissue and slough Severity: Fat Layer Exposed Amount of bleeding with debridement: Mild - Additional Wound Wound debrided: Left lateral leg Laterality: Left Type of Debridement: Excisional debridement Anesthesia Used: 4% Lidocaine Solution Depth: Down to and including healthy tissue, in the subcutaneous layer Percentage of wound debrided: 100 Instrument Used: 3mm curette Tissue Removed: Subcutaneous tissue and slough Severity: Fat Layer Exposed Amount of bleeding with debridement: Mild Bleeding Controlled with: Compression and gauze Patient tolerated procedure: Patient tolerated procedure well Assessment/Plan Active Problems (Last Updated 12/16/17 @ 17:12 by Sari Hawk DO) Venous insufficiency of both lower extremities (Chronic) Ulcer of left foot (Chronic) Ulcer of left calf (Chronic) Ulcer of left lower leg (Chronic) Nonhealing ulcer of right lower extremity with fat layer exposed (Chronic) Glioblastoma multiforme (Chronic) Debility, unspecified (Chronic) Assessment: 1. Superficial abrasions bilateral legs. 2. Skin tear wound to left forearm. 3. Opened wound left knee. 2. Brain tumor - received chemotherapy, has been stopped due so many opened wounds. Plan: Continue Marcie daily to the ulcers followed by tubigrip for compression to minimize swelling and to help with the healing process from her chronic venous disease and insufficiency. Continue samuel guards to minimize further trauma. I suspect she will never be totally healed because when one ulcer heals, she will fall or bump her legs and develop another ulcer. She needs to restarted her chemotherapy for her brain tumor because it has grown. She was told the chemotherapy has helped to decrease the tumor at this time as the chemotherapy was stopped because of the new onset wounds. Instructed her to talk to her oncologist to restart her chemo because she will perpetually have opened wounds. Eventually her balance will worsen and her eyesight will worsen and she will have no choice but to go to an ECF. Right now she wants to try and stay at home with her niece living with her to help. Her Prealbumin from 01/25/18 was 30.8. Encourage nutritional supplementation with protein to help the healing process. If healing is suboptimal, will obtain a wound culture. A positive culture will necessitate antibiotic therapy. To try and speed up the healing process, she would be a candidate for PuraPly Antimicrobial Wound Matrix was denied. Followup two weeks. Code Visit [id number]: [id number] Debbi subq tissue 20 sq cm/<
[2019-03-05 09:13] VITALS: BP 127/88; PULSE 76; RESP 16; TEMP 35.3
--- NOTE | 2019-03-05 21:41 | PCM.WC.PN ---
(1) Ulcer of left calf Status: Chronic Code(s): L97.229 - Non-pressure chronic ulcer of left calf with unspecified severity (2) Ulcer of left lower leg Status: Chronic Code(s): L97.929 - Non-pressure chronic ulcer of unspecified part of left lower leg with unspecified severity (3) Nonhealing ulcer of right lower extremity with fat layer exposed Status: Chronic Code(s): L97.912 - Non-pressure chronic ulcer of unspecified part of right lower leg with fat layer exposed (4) Venous insufficiency of both lower extremities Status: Chronic Code(s): I87.2 - Venous insufficiency (chronic) (peripheral) (5) Glioblastoma multiforme Status: Chronic Code(s): C71.9 - Malignant neoplasm of brain, unspecified (6) Debility, unspecified Status: Chronic Code(s): R53.81 - Other malaise (7) Ulcer of upper extremity Status: Acute Code(s): L98.499 - Non-pressure chronic ulcer of skin of other sites with unspecified severity (8) Ulcer of upper extremity, limited to breakdown of skin Status: Acute Code(s): L98.491 - Non-pressure chronic ulcer of skin of other sites limited to breakdown of skin Type of Wound Date of Service: 03/05/19 Chief Complaint: Multiple ulcers with frequent new ones due to falls and mild traumas History of Wound: Patient's nonhealing ulcers and skin grafts that started over a year ago and required multiple surgical procedures with wound care, antibiotics and HBO treatments. She was living home alone, but her niece moved in with her a couple months ago. Her family does visit her often. She has started wearing soft samuel guards. However she bumps into things at home a lot and occasionally will fall down. Her skin is quite thin and she develops intermittent abrasions. She has had a recent MRI Brain and the tumor has grown. It has been reported that she needs chemotherapy but they were waiting for her ulcers to heal. Due to the fact that she has chronic ulcers and is constantly creating new ones, it is suggested that they start doing her chemo and we will deal with the ulcers. Wound care is marcie to left lower leg ulcer and collagen hydrogel to the remaining ulcers. Progress of Wound: Left posterior leg and left medial foot ulcers are healed today. Right lateral leg, left anterior leg and left lateral leg are improving. No new wounds/ulcers today. - Physical Exam Vital Signs Temp Pulse Resp BP 95.5 F L 76 16 127/88 H 03/05/19 09:13 03/05/19 09:13 03/05/19 09:13 03/05/19 09:13 General: Alert, Cooperative HEENT: Atraumatic, PERRLA Oral: Moist Mucosa Lungs: Normal air movement Cardiovascular: Regular rate Extremities: Capillary Refill Less than 3 Seconds, Edema Skin: Ulcer/ Wound - Ulcer to left lower leg, right forearm and left forearm Wound Measurements and Assessment WC - Nurse 1 - General Ulcer Measurement Start: 02/19/19 09:59 Freq: Status: Active Protocol: Activity Type Activity Date Activity User E-Sign Co-Sign Detail Recorded Client Recorded Date Recorded By Document 03/05/19 08:53 MW [id number] 03/05/19 09:13 MW 03/05/19 08:53 Wound Center Nurse 1 [Ulcer Assessment] #36 R Lateral Forearm -Current Size (cm) - Length 1.5 -Current Size (cm) - Width 0.5 -Current Size (cm) - Depth 0.1 -Total Square Cm 0.75 -Exudate Amt Small -Exudate Type Serosanguineous -Wound Margin Flat & Intact -Granulation Amt Large (67-100%) -Granulation Quality Pale,Elberfeld,Red -Slough/Fibrin Yes -Necrosis Amt Small (1-33%) -Necrotic Tissue Type Adherent Slough -Texture (Riddhi-wound Skin Appearance) Assessed -Moisture (Riddhi-wound Skin Appearance Assessed ) -Color (Riddhi-wound Skin Appearance) Assessed, Erythema -Temperature (Riddhi-wound Skin No Abnormality Appearance) (Pt Warm) -Tenderness on Palpation (Riddhi-wound No Skin Appearance) -Ulcer Cleansing Wound Cleanser -Foul Odor after Cleansing No -Anesthetic Used 4% Lidocaine Solution #35 L Post Forearm Cluster -Current Size (cm) - Length 3.5 -Current Size (cm) - Width 5.0 -Current Size (cm) - Depth 0.1 -Total Square Cm 17.50 -Exudate Amt Small -Exudate Type Serosanguineous -Wound Margin Flat & Intact -Granulation Amt Large (67-100%) -Granulation Quality Pale,Elberfeld,Red -Necrosis Amt Small (1-33%) -Necrotic Tissue Type Adherent Slough -Texture (Riddhi-wound Skin Appearance) Assessed -Moisture (Riddhi-wound Skin Appearance Assessed ) -Color (Riddhi-wound Skin Appearance) Assessed, Erythema -Temperature (Riddhi-wound Skin No Abnormality Appearance) (Pt Warm) -Tenderness on Palpation (Riddhi-wound No Skin Appearance) -Ulcer Cleansing Wound Cleanser -Foul Odor after Cleansing No -Anesthetic Used 4% Lidocaine Solution #34 left samuel -Current Size (cm) - Length 1.7 -Current Size (cm) - Width 2.4 -Current Size (cm) - Depth 0.3 -Total Square Cm 4.08 -Exudate Amt Small -Exudate Type Serosanguineous -Wound Margin Flat & Intact -Granulation Amt Large (67-100%) -Granulation Quality Red -Necrosis Amt Small (1-33%) -Necrotic Tissue Type Adherent Slough -Texture (Riddhi-wound Skin Appearance) Assessed, Scarring -Moisture (Riddhi-wound Skin Appearance Assessed ) -Color (Riddhi-wound Skin Appearance) Assessed, Erythema, Hemosiderin Staining -Temperature (Riddhi-wound Skin No Abnormality Appearance) (Pt Warm) -Tenderness on Palpation (Riddhi-wound No Skin Appearance) -Ulcer Cleansing Wound Cleanser 29-right superior lateral leg -Current Size (cm) - Length 0.1 -Current Size (cm) - Width 0.1 -Current Size (cm) - Depth 0.1 -Total Square Cm 0.01 -Texture (Riddhi-wound Skin Appearance) Assessed -Moisture (Riddhi-wound Skin Appearance Assessed,Dry/ ) Scaly -Color (Riddhi-wound Skin Appearance) Assessed, Erythema, Hemosiderin Staining -Temperature (Riddhi-wound Skin No Abnormality Appearance) (Pt Warm) -Tenderness on Palpation (Riddhi-wound No Skin Appearance) -Ulcer Cleansing Wound Cleanser -Foul Odor after Cleansing No -Anesthetic Used 4% Lidocaine Solution 28-left lateral leg wound -Current Size (cm) - Length 1.3 -Current Size (cm) - Width 0.5 -Current Size (cm) - Depth 0.1 -Total Square Cm 0.65 -Exudate Amt Small -Exudate Type Serosanguineous -Wound Margin Flat & Intact -Granulation Amt None Present (0 %) -Slough/Fibrin Yes -Necrosis Amt Large (67-100%) -Necrotic Tissue Type Adherent Slough -Texture (Riddhi-wound Skin Appearance) Assessed -Moisture (Riddhi-wound Skin Appearance Assessed ) -Color (Riddhi-wound Skin Appearance) Assessed, Erythema, Hemosiderin Staining -Temperature (Riddhi-wound Skin No Abnormality Appearance) (Pt Warm) -Tenderness on Palpation (Riddhi-wound Yes Skin Appearance) -Ulcer Cleansing Wound Cleanser -Foul Odor after Cleansing No -Anesthetic Used 4% Lidocaine Solution [Edema Assessment] -Lower Limb Edema Present Yes -Right Calf (cm) 40.1 -Right Ankle (cm) 21.2 -Left Calf (cm) 37.9 -Left Ankle (cm) 23.0 WC - Nurse 2 - General Ulcer CM Notes Start: 02/19/19 09:59 Freq: Status: Active Protocol: Activity Type Activity Date Activity User E-Sign Co-Sign Detail Recorded Client Recorded Date Recorded By Document 03/05/19 09:31 RANDY [id number] 03/05/19 09:50 RANDY 03/05/19 09:31 Wound Center Nurse 2 [Procedure/Treatment] #36 R Lateral Forearm -Time 09:39 -Correct Patient Yes -Correct Side, Site, Position Yes -Correct Procedure Yes -Procedure Performed Yes -Type of Procedure Debridement -Clinical Debridement Subcutaneous -Post Debridement Size (cm) - Length 2.5 -Post Debridement Size (cm) - Width 1.5 -Post Debridement Size (cm) - Depth 0.1 -Total Square Cm 3.75 -Wound/Ulcer Outcome Not Healed -Ulcer Cleansing Rinsed/ Irrigated with Saline -Foul Odor after Cleansing No -Bioengineered Tissue No -Bleeding Controlled with Pressure -Offloading No -Treatment Response Procedure Tolerated Well #35 L Post Forearm Cluster -Time 09:39 -Correct Patient Yes -Correct Side, Site, Position Yes -Correct Procedure Yes -Procedure Performed Yes -Type of Procedure Debridement -Clinical Debridement Subcutaneous -Post Debridement Size (cm) - Length 7.5 -Post Debridement Size (cm) - Width 5 -Post Debridement Size (cm) - Depth 0.1 -Total Square Cm 37.5 -Wound/Ulcer Outcome Not Healed -Ulcer Cleansing Rinsed/ Irrigated with Saline -Foul Odor after Cleansing No -Bioengineered Tissue No -Bleeding Controlled with Pressure -Offloading No -Treatment Response Procedure Tolerated Well #34 left samuel -Time 09:31 -Correct Patient Yes -Correct Side, Site, Position Yes -Correct Procedure Yes -Procedure Performed Yes -Type of Procedure Debridement -Clinical Debridement Subcutaneous -Post Debridement Size (cm) - Length 1.3 -Post Debridement Size (cm) - Width 2.5 -Post Debridement Size (cm) - Depth 0.3 -Total Square Cm 3.25 -Wound/Ulcer Outcome Not Healed -Ulcer Cleansing Rinsed/ Irrigated with Saline -Foul Odor after Cleansing No -Bioengineered Tissue No -Bleeding Controlled with Pressure -Offloading No -Treatment Response Procedure Tolerated Well 29-right superior lateral leg -Time 09:35 -Correct Patient No -Correct Side, Site, Position No -Correct Procedure No -Procedure Performed No -Post Debridement Size (cm) - Length 0 -Post Debridement Size (cm) - Width 0 -Post Debridement Size (cm) - Depth 0 -Total Square Cm 0 -Wound/Ulcer Outcome Healed- Epithelialized -Ulcer Cleansing Rinsed/ Irrigated with Saline -Foul Odor after Cleansing No -Bioengineered Tissue No -Bleeding Controlled with Pressure -Offloading No -Treatment Response Procedure Tolerated Well 28-left lateral leg wound -Time 09:32 -Correct Patient Yes -Correct Side, Site, Position Yes -Correct Procedure Yes -Procedure Performed Yes -Type of Procedure Debridement -Clinical Debridement Subcutaneous -Post Debridement Size (cm) - Length 1.7 -Post Debridement Size (cm) - Width 0.5 -Post Debridement Size (cm) - Depth 0.3 -Total Square Cm 0.85 -Wound/Ulcer Outcome Not Healed -Ulcer Cleansing Rinsed/ Irrigated with Saline -Foul Odor after Cleansing No -Bioengineered Tissue No -Bleeding Controlled with Pressure -Offloading No -Treatment Response Procedure Tolerated Well [See Physician Procedure note for Specifics] Pain Scale: 0-10 Numeric [Pain] -Is Patient Pain Free? Yes Musculoskeletal: No Tenderness to Palpation of Joints or Extremities Neurological: Neuro grossly intact Psych/Mental Status: Normal Affect Debridement Note Post-Debridement Measurements/Treatment WC - Nurse 2 - General Ulcer CM Notes Start: 02/19/19 09:59 Freq: Status: Active Protocol: Activity Type Activity Date Activity User E-Sign Co-Sign Detail Recorded Client Recorded Date Recorded By Document 02/19/19 10:38 RANDY [id number] 02/19/19 10:44 Document 03/05/19 09:31 RANDY [id number] 03/05/19 09:50 JF 02/19/19 03/05/19 10:38 09:31 Wound Center Nurse 2 #36 R Lateral Forearm -Time 09:39 -Correct Patient Yes -Correct Side, Site, Position Yes -Correct Procedure Yes -Procedure Performed Yes -Type of Procedure Debridement -Clinical Debridement Subcutaneous -Post Debridement Size (cm) - Length 2.5 -Post Debridement Size (cm) - Width 1.5 -Post Debridement Size (cm) - Depth 0.1 -Total Square Cm 3.75 -Wound/Ulcer Outcome Not Healed -Ulcer Cleansing Rinsed/ Irrigated with Saline -Foul Odor after Cleansing No -Bioengineered Tissue No -Bleeding Controlled with Pressure -Offloading No -Treatment Response Procedure Tolerated Well #35 L Post Forearm Cluster -Time 09:39 -Correct Patient Yes -Correct Side, Site, Position Yes -Correct Procedure Yes -Procedure Performed Yes -Type of Procedure Debridement -Clinical Debridement Subcutaneous -Post Debridement Size (cm) - Length 7.5 -Post Debridement Size (cm) - Width 5 -Post Debridement Size (cm) - Depth 0.1 -Total Square Cm 37.5 -Wound/Ulcer Outcome Not Healed -Ulcer Cleansing Rinsed/ Irrigated with Saline -Foul Odor after Cleansing No -Bioengineered Tissue No -Bleeding Controlled with Pressure -Offloading No -Treatment Response Procedure Tolerated Well #34 left samuel -Time 10:42 09:31 -Correct Patient Yes Yes -Correct Side, Site, Position Yes Yes -Correct Procedure Yes Yes -Procedure Performed Yes Yes -Type of Procedure Debridement Debridement -Clinical Debridement Subcutaneous Subcutaneous -Post Debridement Size (cm) - Length 1.7 1.3 -Post Debridement Size (cm) - Width 3.0 2.5 -Post Debridement Size (cm) - Depth 0.3 0.3 -Total Square Cm 5.10 3.25 -Wound/Ulcer Outcome Not Healed Not Healed -Ulcer Cleansing Rinsed/ Rinsed/ Irrigated with Irrigated with Saline Saline -Foul Odor after Cleansing No No -Bioengineered Tissue No No -Bleeding Controlled with Pressure Pressure -Offloading No No -Treatment Response Procedure Procedure Tolerated Well Tolerated Well #33 Left Medial Anterior Foot -Correct Patient No -Correct Side, Site, Position No -Correct Procedure No -Procedure Performed No -Post Debridement Size (cm) - Length 0 -Post Debridement Size (cm) - Width 0 -Post Debridement Size (cm) - Depth 0 -Total Square Cm 0 -Wound/Ulcer Outcome Healed- Epithelialized #32 Left Posterior LE -Correct Patient No -Correct Side, Site, Position No -Correct Procedure No -Procedure Performed No -Post Debridement Size (cm) - Length 0 -Post Debridement Size (cm) - Width 0 -Post Debridement Size (cm) - Depth 0 -Total Square Cm 0 -Wound/Ulcer Outcome Healed- Epithelialized 29-right superior lateral leg -Time 10:39 09:35 -Correct Patient Yes No -Correct Side, Site, Position Yes No -Correct Procedure Yes No -Procedure Performed Yes No -Type of Procedure Debridement -Clinical Debridement Subcutaneous -Post Debridement Size (cm) - Length 0.5 0 -Post Debridement Size (cm) - Width 0.3 0 -Post Debridement Size (cm) - Depth 0.3 0 -Total Square Cm 0.15 0 -Wound/Ulcer Outcome Not Healed Healed- Epithelialized -Ulcer Cleansing Rinsed/ Rinsed/ Irrigated with Irrigated with Saline Saline -Foul Odor after Cleansing No No -Bioengineered Tissue No No -Bleeding Controlled with Pressure Pressure -Offloading No No -Treatment Response Procedure Procedure Tolerated Well Tolerated Well 28-left lateral leg wound -Time 10:41 09:32 -Correct Patient Yes Yes -Correct Side, Site, Position Yes Yes -Correct Procedure Yes Yes -Procedure Performed Yes Yes -Type of Procedure Debridement Debridement -Clinical Debridement Subcutaneous Subcutaneous -Post Debridement Size (cm) - Length 1.0 1.7 -Post Debridement Size (cm) - Width 0.5 0.5 -Post Debridement Size (cm) - Depth 0.3 0.3 -Total Square Cm 0.50 0.85 -Wound/Ulcer Outcome Not Healed Not Healed -Ulcer Cleansing Rinsed/ Rinsed/ Irrigated with Irrigated with Saline Saline -Foul Odor after Cleansing No No -Bioengineered Tissue No No -Bleeding Controlled with Pressure Pressure -Offloading No No -Treatment Response Procedure Procedure Tolerated Well Tolerated Well Pain Scale: 0-10 Numeric Is Patient Pain Free? Yes Yes Wound debrided: Left lower anterior leg ulcer Laterality: Left Type of Debridement: Excisional debridement Anesthesia Used: 4% Lidocaine Solution Depth: Down to and including healthy tissue, in the subcutaneous layer Percentage of wound debrided: 100 Instrument Used: 3mm curette Tissue Removed: subcutaneous tissue and slough Severity: Limited To Skin Breakdown Amount of bleeding with debridement: Mild Bleeding Controlled with: Pressure, Compression and gauze - Additional Wound Wound debrided: right forearm ulcer Laterality: Right Type of Debridement: Excisional debridement Anesthesia Used: 5% Lidocaine Gel Depth: Down to and including healthy tissue, in the subcutaneous layer Percentage of wound debrided: 100 Instrument Used: 3mm curette, - - scissors and pick ups Tissue Removed: Skin, slough, subcutaneous tissue Severity: Limited To Skin Breakdown Amount of bleeding with debridement: Mild Bleeding Controlled with: Compression and gauze Patient tolerated procedure: Patient tolerated procedure well - Additional Wound Wound debrided: left forearm Laterality: Left Type of Debridement: Excisional debridement Anesthesia Used: 4% Lidocaine Solution Depth: Down to and including healthy tissue, in the subcutaneous layer Percentage of wound debrided: 100 Instrument Used: 3mm curette, - - scissors and pick ups Tissue Removed: Skin, slough and subcutaneous tissue Severity: Limited To Skin Breakdown Amount of bleeding with debridement: Mild Bleeding Controlled with: Pressure, Compression and gauze Patient tolerated procedure: Patient tolerated procedure well Assessment/Plan Assessment: 1. Superficial abrasions bilateral legs. 2. Skin tear wound to left forearm. 3. Opened wound left knee. 2. Brain tumor - received chemotherapy, has been stopped due so many opened wounds. Plan: Continue Marcie daily to the left anterior lower leg ulcer followed by tubigrip for compression to minimize swelling and to help with the healing process. She can use collogen hydrogel to the bilateral forearm ulcers. Her right lateral lower leg ulcer is healed this week. Continue samuel guards to minimize further trauma. I suspect she will never be totally healed because when one ulcer heals, she will fall or bump her legs and develop another ulcer. She needs to restarted her chemotherapy for her brain tumor because it has grown. She was told the chemotherapy has helped to decrease the tumor at this time as the chemotherapy was stopped because of the new onset wounds. Instructed her to talk to her oncologist to restart her chemo because she will perpetually have opened wounds. Reinforced this conversation with her family member who brought her today and to have them speak with her medical POA to talk to oncology. Eventually her balance will worsen and her eyesight will worsen and she will have no choice but to go to an ECF. Right now she wants to try and stay at home with her niece living with her to help. Her Prealbumin from 01/25/18 was 30.8. Encourage nutritional supplementation with protein to help the healing process. If healing is suboptimal, will obtain a wound culture. A positive culture will necessitate antibiotic therapy. To try and speed up the healing process, she would be a candidate for PuraPly Antimicrobial Wound Matrix was denied. Followup three weeks due to the Holiday. Code Visit [id number]: [id number] Debbi subq tissue 20 sq cm/< Add On Codes: 53286 Debbi subq tissue add-on
== END 2019-03-17 23:59 ==
LOC: WC 08:45
PROVIDERS: Family Provider Student in an Organized Health Care Education/Training Program; PCP Student in an Organized Health Care Education/Training Program; Visit Provider Surgery
DX: I87.2 Venous insufficiency (chronic) (peripheral) (principal); C71.9 Malignant neoplasm of brain, unspecified; S51.812A Laceration without foreign body of left forearm, initial encounter; W22.8XXA Striking against or struck by other objects, initial encounter; S80.812A Abrasion, left lower leg, initial encounter; S80.811A Abrasion, right lower leg, initial encounter
CPT/HCPCS: 11042; 11045

== ENCOUNTER 2019-03-26 09:00 | Outpatient (RCR) | payer MEDICARE, SELFPAY ==
[2019-03-18 00:41] VITALS: BP 127/88; PULSE 76; RESP 16; TEMP 35.3
[2019-03-26 09:12] VITALS: BP 136/81; PULSE 56; RESP 18; TEMP 36.1
--- NOTE | 2019-03-26 20:01 | PCM.WC.PN ---
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 She was living home alone, but her niece moved in with her a couple months ago. Her family does visit her often. She has started wearing soft samuel guards. However she bumps into things at home a lot and occasionally will fall down. Her skin is quite thin and she develops intermittent abrasions. She has had a recent MRI Brain and the tumor has grown. It has been reported that she needs chemotherapy but they were waiting for her ulcers to heal. Due to the fact that she has chronic ulcers and is constantly creating new ones, it is suggested that they start doing her chemo and we will deal with the ulcers. Wound care is collagen hydrogel to the left lower anterior leg and left elbow. Progress of Wound: Left anterior lower leg is improved. New ulcer right elbow. All other ulcers are healed. - Physical Exam Vital Signs Temp Pulse Resp BP 96.9 F L 56 L 18 136/81 H 03/26/19 09:12 03/26/19 09:12 03/26/19 09:12 03/26/19 09:12 General: Alert, Cooperative HEENT: Atraumatic Oral: Moist Mucosa Lungs: Normal air movement Cardiovascular: Regular rate Extremities: Capillary Refill Less than 3 Seconds, Peripheral Pulses Normal Skin: Ulcer/ Wound - left anterior lower leg and left elbow Wound Measurements and Assessment WC - Nurse 1 - General Ulcer Measurement Start: 03/26/19 09:12 Freq: Status: Active Protocol: Activity Type Activity Date Activity User E-Sign Co-Sign Detail Recorded Client Recorded Date Recorded By Document 03/26/19 09:12 AN [id number] 03/26/19 09:43 AN 09/09/19 09:12 Wound Center Nurse 1 [Ulcer Assessment] #37 left elbow cluster -Current Size (cm) - Length 0.6 -Current Size (cm) - Width 1.2 -Current Size (cm) - Depth 0.1 -Total Square Cm 0.72 -Classification - Thickness Full Thickness with Exposed Support Structure -Exudate Amt Small -Exudate Type Serosanguineous -Wound Margin Distinct, Outline Attached -Granulation Amt Small (1-33%) -Granulation Quality Red -Slough/Fibrin Yes -Necrosis Amt Large (67-100%) -Necrotic Tissue Type Eschar -Structure Exposed None/Limited to Skin Breakdown -Texture (Riddhi-wound Skin Appearance) Assessed -Moisture (Riddhi-wound Skin Appearance Assessed ) -Color (Riddhi-wound Skin Appearance) Assessed -Temperature (Riddhi-wound Skin No Abnormality Appearance) (Pt Warm) -Tenderness on Palpation (Riddhi-wound No Skin Appearance) -Ulcer Cleansing Rinsed/ Irrigated with Saline -Foul Odor after Cleansing No -Anesthetic Used 4% Lidocaine Solution #34 left samuel -Current Size (cm) - Length 0.1 -Current Size (cm) - Width 1.0 -Current Size (cm) - Depth 0.2 -Total Square Cm 0.10 -Date of Last Picture (Recall this 03/26/19 field) -Photo Taken Yes -Classification - Thickness Full Thickness with Exposed Support Structure -Exudate Amt Medium -Exudate Type Serosanguineous -Wound Margin Distinct, Outline Attached -Granulation Amt Large (67-100%) -Granulation Quality Red -Slough/Fibrin Yes -Necrosis Amt Small (1-33%) -Necrotic Tissue Type Adherent Slough -Structure Exposed None/Limited to Skin Breakdown -Texture (Riddhi-wound Skin Appearance) Assessed -Moisture (Riddhi-wound Skin Appearance Assessed ) -Color (Riddhi-wound Skin Appearance) Assessed -Temperature (Riddhi-wound Skin No Abnormality Appearance) (Pt Warm) -Tenderness on Palpation (Riddhi-wound Yes Skin Appearance) -Ulcer Cleansing Wound Cleanser -Foul Odor after Cleansing No -Anesthetic Used 4% Lidocaine Solution WC - Nurse 2 - General Ulcer CM Notes Start: 03/26/19 09:12 Freq: Status: Active Protocol: Activity Type Activity Date Activity User E-Sign Co-Sign Detail Recorded Client Recorded Date Recorded By Document 03/26/19 10:05 RANDY [id number] 03/26/19 10:12 JF 03/26/19 10:05 Wound Center Nurse 2 [Procedure/Treatment] #37 left elbow cluster -Time 10:09 -Correct Patient Yes -Correct Side, Site, Position Yes -Correct Procedure Yes -Procedure Performed Yes -Type of Procedure Debridement -Clinical Debridement Subcutaneous -Post Debridement Size (cm) - Length 0.5 -Post Debridement Size (cm) - Width 1.2 -Post Debridement Size (cm) - Depth 0.3 -Total Square Cm 0.60 -Wound/Ulcer Outcome Not Healed -Ulcer Cleansing Rinsed/ Irrigated with Saline -Foul Odor after Cleansing No -Bioengineered Tissue No -Bleeding Controlled with Pressure -Offloading No -Treatment Response Procedure Tolerated Well #36 R Lateral Forearm -Correct Patient No -Correct Side, Site, Position No -Correct Procedure No -Procedure Performed No -Post Debridement Size (cm) - Length 0 -Post Debridement Size (cm) - Width 0 -Post Debridement Size (cm) - Depth 0 -Total Square Cm 0 -Wound/Ulcer Outcome Healed- Epithelialized #35 L Post Forearm Cluster -Correct Patient No -Correct Side, Site, Position No -Correct Procedure No -Procedure Performed No -Post Debridement Size (cm) - Length 0 -Post Debridement Size (cm) - Width 0 -Post Debridement Size (cm) - Depth 0 -Total Square Cm 0 -Wound/Ulcer Outcome Healed- Epithelialized #34 left samuel -Time 10:06 -Correct Patient Yes -Correct Side, Site, Position Yes -Correct Procedure Yes -Procedure Performed Yes -Type of Procedure Debridement -Clinical Debridement Subcutaneous -Post Debridement Size (cm) - Length 0.2 -Post Debridement Size (cm) - Width 1.5 -Post Debridement Size (cm) - Depth 0.2 -Total Square Cm 0.30 -Wound/Ulcer Outcome Not Healed -Ulcer Cleansing Rinsed/ Irrigated with Saline -Foul Odor after Cleansing No -Bioengineered Tissue No -Bleeding Controlled with Pressure -Offloading No -Treatment Response Procedure Tolerated Well 28-left lateral leg wound -Correct Patient No -Correct Side, Site, Position No -Correct Procedure No -Procedure Performed No -Post Debridement Size (cm) - Length 0 -Post Debridement Size (cm) - Width 0 -Post Debridement Size (cm) - Depth 0 -Total Square Cm 0 -Wound/Ulcer Outcome Healed- Epithelialized [See Physician Procedure note for Specifics] Pain Scale: 0-10 Numeric [Pain] -Is Patient Pain Free? Yes Musculoskeletal: No Tenderness to Palpation of Joints or Extremities Neurological: Neuro grossly intact Psych/Mental Status: Normal Affect Debridement Note Post-Debridement Measurements/Treatment WC - Nurse 2 - General Ulcer CM Notes Start: 03/26/19 09:12 Freq: Status: Active Protocol: Activity Type Activity Date Activity User E-Sign Co-Sign Detail Recorded Client Recorded Date Recorded By Document 03/26/19 10:05 RANDY [id number] 03/26/19 10:12 RANDY 03/26/19 10:05 Wound Center Nurse 2 #37 left elbow cluster -Time 10:09 -Correct Patient Yes -Correct Side, Site, Position Yes -Correct Procedure Yes -Procedure Performed Yes -Type of Procedure Debridement -Clinical Debridement Subcutaneous -Post Debridement Size (cm) - Length 0.5 -Post Debridement Size (cm) - Width 1.2 -Post Debridement Size (cm) - Depth 0.3 -Total Square Cm 0.60 -Wound/Ulcer Outcome Not Healed -Ulcer Cleansing Rinsed/ Irrigated with Saline -Foul Odor after Cleansing No -Bioengineered Tissue No -Bleeding Controlled with Pressure -Offloading No -Treatment Response Procedure Tolerated Well #36 R Lateral Forearm -Correct Patient No -Correct Side, Site, Position No -Correct Procedure No -Procedure Performed No -Post Debridement Size (cm) - Length 0 -Post Debridement Size (cm) - Width 0 -Post Debridement Size (cm) - Depth 0 -Total Square Cm 0 -Wound/Ulcer Outcome Healed- Epithelialized #35 L Post Forearm Cluster -Correct Patient No -Correct Side, Site, Position No -Correct Procedure No -Procedure Performed No -Post Debridement Size (cm) - Length 0 -Post Debridement Size (cm) - Width 0 -Post Debridement Size (cm) - Depth 0 -Total Square Cm 0 -Wound/Ulcer Outcome Healed- Epithelialized #34 left samuel -Time 10:06 -Correct Patient Yes -Correct Side, Site, Position Yes -Correct Procedure Yes -Procedure Performed Yes -Type of Procedure Debridement -Clinical Debridement Subcutaneous -Post Debridement Size (cm) - Length 0.2 -Post Debridement Size (cm) - Width 1.5 -Post Debridement Size (cm) - Depth 0.2 -Total Square Cm 0.30 -Wound/Ulcer Outcome Not Healed -Ulcer Cleansing Rinsed/ Irrigated with Saline -Foul Odor after Cleansing No -Bioengineered Tissue No -Bleeding Controlled with Pressure -Offloading No -Treatment Response Procedure Tolerated Well 28-left lateral leg wound -Correct Patient No -Correct Side, Site, Position No -Correct Procedure No -Procedure Performed No -Post Debridement Size (cm) - Length 0 -Post Debridement Size (cm) - Width 0 -Post Debridement Size (cm) - Depth 0 -Total Square Cm 0 -Wound/Ulcer Outcome Healed- Epithelialized Pain Scale: 0-10 Numeric Is Patient Pain Free? Yes Wound debrided: Left anterior lower leg Laterality: Left Type of Debridement: Excisional debridement Anesthesia Used: 4% Lidocaine Solution, 5% Lidocaine Gel Depth: Down to and including healthy tissue, in the subcutaneous layer Percentage of wound debrided: 100 Instrument Used: 3mm curette Tissue Removed: Subcutaneous tissue and slough Severity: Limited To Skin Breakdown Amount of bleeding with debridement: Mild Bleeding Controlled with: Pressure, Compression and gauze Patient tolerated procedure well - Additional Wound Wound debrided: Left elbow Laterality: Left Type of Debridement: Excisional debridement Anesthesia Used: 4% Lidocaine Solution, 5% Lidocaine Gel Depth: Down to and including healthy tissue, in the subcutaneous layer Percentage of wound debrided: 100 Instrument Used: 3mm curette Tissue Removed: Subcutaneous tissue and slough Severity: Limited To Skin Breakdown Amount of bleeding with debridement: Mild Bleeding Controlled with: Pressure, Compression and gauze Patient tolerated procedure: Patient tolerated procedure well Assessment/Plan Active Problems (Last Updated 12/16/17 @ 17:12 by Sari Hawk DO) Ulcer of left lower leg (Chronic) Ulcer of upper extremity (Acute) Assessment: 1. Superficial abrasions bilateral legs. 2. Skin tear wound to left forearm. 3. Opened wound left knee. 2. Brain tumor - received chemotherapy, has been stopped due so many opened wounds. Plan: Collagen Hydrogel to the new left elbow ulcer and left anterior lower leg ulcer followed by tubigrip for compression to minimize swelling and to help with the healing process. All other ulcers are healed this week. Continue samuel guards to minimize further trauma. I suspect she will never be totally healed because when one ulcer heals, she will fall or bump her legs and develop another ulcer. She needs to restarted her chemotherapy for her brain tumor because it has grown. She was told the chemotherapy has helped to decrease the tumor at this time as the chemotherapy was stopped because of the new onset wounds. Instructed her to talk to her oncologist to restart her chemo because she will perpetually have opened wounds. Reinforced this conversation with her family member who brought her today and to have them speak with her medical POA to talk to oncology. Eventually her balance will worsen and her eyesight will worsen and she will have no choice but to go to an ECF. Right now she wants to try and stay at home with her niece living with her to help. Her Prealbumin from 01/25/18 was 30.8. Encourage nutritional supplementation with protein to help the healing process. If healing is suboptimal, will obtain a wound culture. A positive culture will necessitate antibiotic therapy. To try and speed up the healing process, she would be a candidate for PuraPly Antimicrobial Wound Matrix was denied. Followup two weeks. Code Visit [id number]: 71085 Debbi subq tissue 20 sq cm/<
== END 2019-04-16 23:59 ==
LOC: WC 09:00
PROVIDERS: Family Provider Student in an Organized Health Care Education/Training Program; PCP Student in an Organized Health Care Education/Training Program; Visit Provider Surgery
DX: S51.812A Laceration without foreign body of left forearm, initial encounter (principal); S80.812A Abrasion, left lower leg, initial encounter; S80.811A Abrasion, right lower leg, initial encounter; C71.9 Malignant neoplasm of brain, unspecified; W22.8XXA Striking against or struck by other objects, initial encounter
CPT/HCPCS: 11042

== ENCOUNTER 2019-05-08 14:39 | Outpatient (RCR) | payer MEDICARE, SELFPAY ==
[2019-04-17 00:41] VITALS: BP 136/81; PULSE 56; RESP 18; TEMP 36.1
[2019-05-08 15:25] VITALS: BP 113/73; PULSE 65; RESP 18; TEMP 36.6
--- NOTE | 2019-05-08 16:47 | PN.PCM_ITS ---
(1) Skin tear of left lower leg without complication Status: Acute Code(s): S81.812A - Laceration without foreign body, left lower leg, initial encounter (2) Traumatic open wound of left lower leg Status: Chronic Code(s): S81.802A - Unspecified open wound, left lower leg, initial encounter (3) Traumatic open wound of right lower leg Status: Chronic Code(s): S81.801A - Unspecified open wound, right lower leg, initial encounter (4) Glioblastoma multiforme Status: Chronic Code(s): C71.9 - Malignant neoplasm of brain, unspecified (5) Frequent falls Status: Chronic Code(s): R29.6 - Repeated falls Type of Wound Date of Service: 05/08/19 Chief Complaint: Multiple ulcers with frequent new ones due to falls and mild traumas History of Wound: Patient's nonhealing ulcers and skin grafts that started over a year ago and required multiple surgical procedures with wound care, antibiotics and HBO treatments. She was living home alone, but her niece moved in with her a few months ago. Her family does visit her often. She has started wearing soft samuel guards. However she bumps into things at home a lot and frequently will fall down. Her skin is quite thin and she develops intermittent abrasions. She has had a recent MRI Brain and the tumor has grown. It has been reported that she needs chemotherapy but they were waiting for her ulcers to jose luis blanco. Due to the fact that she has chronic ulcers and is constantly creating new ones, it is suggested that they start doing her chemo and we will deal with the ulcers. Wound care is collagen hydrogel to the left knee and marcie daily to right and left anterior lower leg. Today denies fever. States her appetite are good. Progress of Wound: Ulcers of left knee skin tear, left samuel and right samuel traumatic wounds that are stable - Physical Exam Vital Signs Temp Pulse Resp BP 97.8 F 65 18 113/73 05/08/19 15:25 05/08/19 15:25 05/08/19 15:25 05/08/19 15:25 General: Alert, Cooperative HEENT: Atraumatic Oral: Moist Mucosa Lungs: Normal air movement Cardiovascular: Regular rate Extremities: Capillary Refill Less than 3 Seconds, Edema Skin: Ulcer/ Wound - Skin tear left knee and opened area on left and right lower anterior legs Wound Measurements and Assessment WC - Nurse 1 - General Ulcer Measurement Start: 05/08/19 15:25 Freq: Status: Active Protocol: Activity Type Activity Date Activity User E-Sign Co-Sign Detail Recorded Client Recorded Date Recorded By Document 05/08/19 15:25 [facility] [id number] 05/08/19 15:37 BM 05/08/19 15:25 Wound Center Nurse 1 [Ulcer Assessment] #40 right lateral samuel -Current Size (cm) - Length 3.1 -Current Size (cm) - Width 2.2 -Current Size (cm) - Depth 0.2 -Total Square Cm 6.82 -Date of Last Picture (Recall this 05/08/19 field) -Photo Taken Yes -Classification - Thickness Full Thickness without Exposed Support Structure -Exudate Amt Medium -Exudate Type Serosanguineous -Wound Margin Distinct, Outline Attached -Granulation Amt Medium (34-66%) -Granulation Quality Red -Slough/Fibrin Yes -Necrosis Amt Medium (34-66%) -Necrotic Tissue Type Adherent Slough -Structure Exposed Fat Layer Exposed -Texture (Riddhi-wound Skin Appearance) Assessed, Localized Edema -Moisture (Riddhi-wound Skin Appearance Assessed ) -Color (Riddhi-wound Skin Appearance) Assessed, Erythema -Temperature (Riddhi-wound Skin No Abnormality Appearance) (Pt Warm) -Tenderness on Palpation (Riddhi-wound No Skin Appearance) -Ulcer Cleansing Rinsed/ Irrigated with Saline -Foul Odor after Cleansing No -Anesthetic Used 4% Lidocaine Solution #39 left lateral leg skin tear -Current Size (cm) - Length 1.2 -Current Size (cm) - Width 1.2 -Current Size (cm) - Depth 0.2 -Total Square Cm 1.44 -Date of Last Picture (Recall this 05/08/19 field) -Photo Taken Yes -Classification - Thickness Full Thickness without Exposed Support Structure -Exudate Amt Medium -Exudate Type Serosanguineous -Wound Margin Distinct, Outline Attached -Granulation Amt Large (67-100%) -Granulation Quality Red -Slough/Fibrin Yes -Necrosis Amt Small (1-33%) -Necrotic Tissue Type Adherent Slough -Structure Exposed None/Limited to Skin Breakdown -Texture (Riddhi-wound Skin Appearance) Assessed, Localized Edema ,Scarring -Moisture (Riddhi-wound Skin Appearance Assessed ) -Color (Riddhi-wound Skin Appearance) Assessed, Erythema -Temperature (Riddhi-wound Skin No Abnormality Appearance) (Pt Warm) -Tenderness on Palpation (Riddhi-wound No Skin Appearance) -Ulcer Cleansing Rinsed/ Irrigated with Saline -Foul Odor after Cleansing No -Anesthetic Used 4% Lidocaine Solution #38 left medial lower extremity -Current Size (cm) - Length 2.7 -Current Size (cm) - Width 5.4 -Current Size (cm) - Depth 0.3 -Total Square Cm 14.58 -Classification - Thickness Full Thickness without Exposed Support Structure -Exudate Amt Medium -Exudate Type Serosanguineous -Wound Margin Distinct, Outline Attached -Granulation Amt Medium (34-66%) -Granulation Quality Red -Slough/Fibrin Yes -Necrosis Amt Medium (34-66%) -Necrotic Tissue Type Adherent Slough -Structure Exposed Fat Layer Exposed -Texture (Riddhi-wound Skin Appearance) Assessed, Scarring -Moisture (Riddhi-wound Skin Appearance Assessed ) -Color (Riddhi-wound Skin Appearance) Assessed, Erythema -Temperature (Riddhi-wound Skin No Abnormality Appearance) (Pt Warm) -Tenderness on Palpation (Riddhi-wound No Skin Appearance) -Ulcer Cleansing Rinsed/ Irrigated with Saline -Foul Odor after Cleansing No -Anesthetic Used 4% Lidocaine Solution [Edema Assessment] -Right Calf (cm) 30.3 -Right Ankle (cm) 20.9 -Left Calf (cm) 35.5 -Left Ankle (cm) 22.0 WC - Nurse 2 - General Ulcer CM Notes Start: 05/08/19 15:25 Freq: Status: Active Protocol: Activity Type Activity Date Activity User E-Sign Co-Sign Detail Recorded Client Recorded Date Recorded By Document 05/08/19 16:13 RANDY [id number] 05/08/19 16:17 RANDY 05/08/19 16:13 Wound Center Nurse 2 [Procedure/Treatment] #40 right lateral samuel -Time 16:15 -Correct Patient Yes -Correct Side, Site, Position Yes -Correct Procedure Yes -Procedure Performed Yes -Type of Procedure Debridement -Clinical Debridement Subcutaneous -Post Debridement Size (cm) - Length 3.7 -Post Debridement Size (cm) - Width 2.0 -Post Debridement Size (cm) - Depth 0.2 -Total Square Cm 7.40 -Wound/Ulcer Outcome Not Healed -Ulcer Cleansing Rinsed/ Irrigated with Saline -Foul Odor after Cleansing No -Bioengineered Tissue No -Bleeding Controlled with Pressure -Offloading No -Treatment Response Procedure Tolerated Well #39 left lateral leg skin tear -Correct Patient No -Correct Side, Site, Position No -Correct Procedure No -Procedure Performed No -Wound/Ulcer Outcome Not Healed -Ulcer Cleansing Rinsed/ Irrigated with Saline -Foul Odor after Cleansing No -Bioengineered Tissue No -Bleeding Controlled with Pressure -Offloading No -Treatment Response Procedure Tolerated Well #38 left medial lower extremity -Time 16:14 -Correct Patient Yes -Correct Side, Site, Position Yes -Correct Procedure Yes -Procedure Performed Yes -Type of Procedure Debridement -Clinical Debridement Subcutaneous -Post Debridement Size (cm) - Length 2 -Post Debridement Size (cm) - Width 5.5 -Post Debridement Size (cm) - Depth 0.3 -Total Square Cm 11.0 -Wound/Ulcer Outcome Not Healed -Ulcer Cleansing Rinsed/ Irrigated with Saline -Foul Odor after Cleansing No -Bioengineered Tissue No -Bleeding Controlled with Pressure -Offloading No -Treatment Response Procedure Tolerated Well [See Physician Procedure note for Specifics] Pain Scale: 0-10 Numeric [Pain] -Is Patient Pain Free? Yes Musculoskeletal: No Tenderness to Palpation of Joints or Extremities Neurological: Neuro grossly intact Psych/Mental Status: Normal Affect Debridement Note Post-Debridement Measurements/Treatment WC - Nurse 2 - General Ulcer CM Notes Start: 05/08/19 15:25 Freq: Status: Active Protocol: Activity Type Activity Date Activity User E-Sign Co-Sign Detail Recorded Client Recorded Date Recorded By Document 05/08/19 16:13 RANDY [id number] 05/08/19 16:17 RANDY 05/08/19 16:13 Wound Center Nurse 2 #40 right lateral samuel -Time 16:15 -Correct Patient Yes -Correct Side, Site, Position Yes -Correct Procedure Yes -Procedure Performed Yes -Type of Procedure Debridement -Clinical Debridement Subcutaneous -Post Debridement Size (cm) - Length 3.7 -Post Debridement Size (cm) - Width 2.0 -Post Debridement Size (cm) - Depth 0.2 -Total Square Cm 7.40 -Wound/Ulcer Outcome Not Healed -Ulcer Cleansing Rinsed/ Irrigated with Saline -Foul Odor after Cleansing No -Bioengineered Tissue No -Bleeding Controlled with Pressure -Offloading No -Treatment Response Procedure Tolerated Well #39 left lateral leg skin tear -Correct Patient No -Correct Side, Site, Position No -Correct Procedure No -Procedure Performed No -Wound/Ulcer Outcome Not Healed -Ulcer Cleansing Rinsed/ Irrigated with Saline -Foul Odor after Cleansing No -Bioengineered Tissue No -Bleeding Controlled with Pressure -Offloading No -Treatment Response Procedure Tolerated Well #38 left medial lower extremity -Time 16:14 -Correct Patient Yes -Correct Side, Site, Position Yes -Correct Procedure Yes -Procedure Performed Yes -Type of Procedure Debridement -Clinical Debridement Subcutaneous -Post Debridement Size (cm) - Length 2 -Post Debridement Size (cm) - Width 5.5 -Post Debridement Size (cm) - Depth 0.3 -Total Square Cm 11.0 -Wound/Ulcer Outcome Not Healed -Ulcer Cleansing Rinsed/ Irrigated with Saline -Foul Odor after Cleansing No -Bioengineered Tissue No -Bleeding Controlled with Pressure -Offloading No -Treatment Response Procedure Tolerated Well Pain Scale: 0-10 Numeric Is Patient Pain Free? Yes Wound debrided: knee skin tear Laterality: Left Type of Debridement: Excisional debridement Anesthesia Used: 4% Lidocaine Solution Depth: Down to and including healthy tissue, in the subcutaneous layer Percentage of wound debrided: 100 Instrument Used: 3mm curette Tissue Removed: Subcutaneous tissue and slough Severity: Limited To Skin Breakdown Amount of bleeding with debridement: Mild Bleeding Controlled with: Pressure, Compression and gauze Patient tolerated procedure well - Additional Wound Wound debrided: anterior lower leg Laterality: Right Type of Debridement: Excisional debridement Anesthesia Used: 4% Lidocaine Solution, 5% Lidocaine Gel Depth: Down to and including healthy tissue, in the subcutaneous layer Percentage of wound debrided: 100 Instrument Used: 5mm curette Tissue Removed: Subcutaneous tissue and slough Severity: Fat Layer Exposed Amount of bleeding with debridement: Mild Bleeding Controlled with: Pressure, Compression and gauze Patient tolerated procedure: Patient tolerated procedure well - Additional Wound Wound debrided: anterior lower leg Laterality: Left Type of Debridement: Excisional debridement Anesthesia Used: 4% Lidocaine Solution, 5% Lidocaine Gel Depth: Down to and including healthy tissue, in the subcutaneous layer Percentage of wound debrided: 100 Instrument Used: 5mm curette Tissue Removed: Subcutaneous tissue and slough Severity: Fat Layer Exposed Amount of bleeding with debridement: Mild Bleeding Controlled with: Pressure, Compression and gauze Patient tolerated procedure: Patient tolerated procedure well Assessment/Plan Assessment: 1. Superficial abrasions bilateral legs. 2. Skin tear wound to left forearm. 3. Opened wound left knee. 2. Brain tumor - received chemotherapy, has been stopped due so many opened wounds. Plan: Collagen Hydrogel to the new left knee skin tear and Marcie to the left and right anterior lower leg opened areas daily followed by tubigrip for compression to minimize swelling and to help with the healing process. All other ulcers are healed this week. Continue samuel guards to minimize further trauma. I suspect she will never be totally healed because when one ulcer heals, she will fall or bump her legs and develop another ulcer. She needs to restarted her chemotherapy for her brain tumor because it has grown. Her family states that she is not eligable for chemo at this time. Her two new opened areas on her her lower legs are from running into the corner of totes of stuff for a yard sale. Instructed to move these totes out of her was so she does not keep running into them. Eventually her balance will worsen and her eyesight will worsen and she will have no choice but to go to an ECF. Right now she wants to try and stay at home with her niece living with her to help. Her Prealbumin from 01/25/18 was 30.8. Encourage nutritional supplementation with protein to help the healing process. Followup one week. Code Visit [id number]: [id number] Debbi subq tissue 20 sq cm/<
== END 2019-05-17 23:59 ==
LOC: WC 14:39
PROVIDERS: Family Provider Student in an Organized Health Care Education/Training Program; PCP Student in an Organized Health Care Education/Training Program; Visit Provider Surgery
DX: S51.812A Laceration without foreign body of left forearm, initial encounter (principal); S80.812A Abrasion, left lower leg, initial encounter; S80.811A Abrasion, right lower leg, initial encounter; C71.9 Malignant neoplasm of brain, unspecified; W22.8XXA Striking against or struck by other objects, initial encounter
CPT/HCPCS: 11042

== ENCOUNTER 2019-05-12 19:51 | Emergency (ER) | payer MEDICARE, SELFPAY ==
[2019-05-12 19:53] VITALS: BP 112/74; PULSE 80; RESP 15; TEMP 37; O2SAT 93; BMI 30.4
--- NOTE | 2019-05-12 20:21 | EKG12_ITS ---
Test Reason : CONFUSION Blood Pressure : / mmHG Vent. Rate : 069 BPM Atrial Rate : 069 BPM P-R Int : 138 ms QRS Dur : 086 ms QT Int : 410 ms P-R-T Axes : 059 038 072 degrees QTc Int : 439 ms Normal sinus rhythm Nonspecific ST abnormality Abnormal ECG Confirmed by DONNA BAILEY, RADHA ([id number]), loan expeditor ESTUARDO ROSA ([id number]) on 05/15/2019 11:24:27 AM Referred By: FRANCISCO JAVIER Confirmed By:RADHA THOMPSON MD
--- NOTE | 2019-05-12 20:21 | CT_ITS ---
STUDY: CT BRAIN WITHOUT CONTRAST REASON FOR EXAM: Female, 59 years old. Effusion. Fall. History of seizures and glioblastoma treated with chemotherapy radiation and surgery. RADIATION DOSAGE (If Supplied By Facility): CTDIvol = ( 44.99 ) mGy, DLP = ( 796.11 ) mGycm TECHNIQUE: Transaxial CT imaging of the brain was performed without administration of intravenous contrast material. Individualized dose optimization techniques were used for this CT. COMPARISON: 10/10/2015, 03/02/2017. FINDINGS: Changes from a previous right parieto-occipital craniotomy are seen. No evidence for acute skull fracture. No definite acute intracranial abnormality. No evidence for hemorrhage. No evidence for acute infarction. Extensive abnormalities seen in the right temporal lobe and right occipital and parietal lobes are seen consistent with patient's history of a treated glioblastoma. Coarse calcifications again seen in the area of the tumor bed, increased since prior exam and probably related to the radiation treatments. Encephalomalacia seen of the right temporal parietal occipital lobes. Only mild edema currently suggested. No specific evidence for neoplastic mass is seen although noncontrast CT is very insensitive for mass. Mild ex vacuo enlargement of the right ventricle. Only mild 4 mm midline shift from left to right. On the left there is mild atrophy and White matter disease. Normal posterior fossa structures. CT/Brain/Head without Contrast IMPRESSION: No definite acute abnormality. Extensive abnormalities of the right cerebral hemisphere related to a known, treated glioblastoma. Little current mass effect. Little if any edema. Electronically Signed: Mikael Baeza MD at 21:34 EDT , Service support ,
--- NOTE | 2019-05-12 20:49 | ED.DCSUM_ITS ---
History of Present Illness Chief Complaint: Confusion Informant: Patient, Family Limited by: - - Confusion Onset: Days Context: Gradual Onset Timing: Waxes and wanes Narrative: Patient is a 59-year-old female with history of stage IV glioblastoma multiform presenting from home for increased confusion. Family members state that she is normally ANO x3 and does have some problems with short-term memory but has been cognitively declining over the past week. She is been much more confused and even having trouble using her phone or putting on her shoes. She has developed urinary incontinence over the past week which is new for her. They note that she was sleeping more today and she is been more continued to have a lot of unsteadiness. She is significantly worsened today which concerned the family. She has had recent falls over the past 3 weeks. Family notes that she was started on trazodone 1 week ago. They are not sure if this is normal. Patient has been compliant with all of her medications. She is not currently receiving any chemotherapy because of complications of side effects. She does have chronic wounds on her lower extremities which she is in wound care for. They have not changed significantly. She has not been complain of any significant pain at the sites. No reports of any vomiting, diarrhea, fever, rash or chest pain/shortness of breath. Patient currently has no complaints. Past Medical History - Allergies and Home Meds Allergies/Adverse Reactions: Allergies adhesive tape Adverse Reaction (Verified 01/19/18 10:54) VERY THIN STEROID SKIN WILL REMOVE SKIN IF ON TOO LONG Primary Care Physician: Loc Arizmendi DO [Primary Care Provider] - Past Medical History: - - Glioblastoma multiform, history of seizures, chronic wounds Surgical History: dilatation and curettage, - Smoking Status: Never smoker - Family History Maternal Family History: Reports: No pertinent history Paternal Family History: Reports: No pertinent history Review of Systems All systems negative except as indicated Genitourinary: Reports: - - Nighttime incontinence Neurological: Reports: - - Confusion Hematologic: Reports: Easy bruising - Chronic Physical Exam Vital Signs/Narrative: Vital Signs Temp Pulse Resp BP Pulse Ox 05/12/19 19:53 98.6 F 80 15 112/74 93 Inital Vital Signs reviewed: Yes General: Well nourished, Well developed, No Acute Distress Head: Normocephalic, Atraumatic Eyes: Perrl, EOMI ENT: Moist mucous membranes, No rhinorrhea, TM's clear. Negative for: Dry mucous membranes Neck: Supple, Nontender Cardiovascular: Regular rate, Regular rhythm, No murmurs Respiratory: No distress, CTA bilaterally, Chest nontender Abdomen: Soft, Nontender, Nondistended, Normal bowel sounds Back: Nontender, Normal Inspection Extremities: Nontender, No edema Skin: Normal color, No rash, - - Multiple skin tears on upper extremities in various stages of healing, no surrounding cellulitic changes. Chronic wound over right samuel with granulomatous changes and mild surrounding erythema Neurological: Alert, Cranial nerves II-XII grossly intact, Normal Strength, Normal Sensation, Confused - Oriented to self only, - - Very poor short-term memory, does not remember things that were just told her Psychological: Normal affect, Normal Mood Diagnostic/Tx/Re-eval Chest X-Ray - ED: 1 View, Read by ED Physician, Read by Radiologist, No Acute Disease Clinical Impression(s) from Imaging Studies Brain CT 05/12/19 20:21 IMPRESSION: No definite acute abnormality. Extensive abnormalities of the right cerebral hemisphere related to a known, treated glioblastoma. Little current mass effect. Little if any edema. Electronically Signed: Mikael Baeza MD at 21:34 EDT , Service support , Chest X-Ray 05/12/19 21:10 IMPRESSION: There are findings consistent with COPD. There is no evidence of acute chest disease. Electronically Signed: Mikael Baeza MD at 21:41 EDT , Service support , Laboratory Data 05/12/19 05/12/19 05/12/19 20:40 20:40 20:40 WBC 4.6 RBC 4.52 Hgb 14.6 Hct 45.3 MCV 100.2 H MCH 32.3 H MCHC 32.2 RDW Std Deviation 48.5 H RDW Coeff of Marylu 13.2 Plt Count 156 MPV 9.4 Immature Gran % (Auto) 1.500 H Neut % (Auto) 74.9 H Lymph % (Auto) 12.0 L Terry % (Auto) 9.6 Eos % (Auto) 1.1 Baso % (Auto) 0.9 Absolute Neuts (auto) 3.4 Absolute Lymphs (auto) 0.55 L Nucleated RBC % 0 Differential Comment SCANNED Platelet Estimate ADEQUATE Macrocytosis 1+ PT 12.4 INR 0.9 Sodium 137 Potassium 3.9 Chloride 104 Carbon Dioxide 26.0 Anion Gap 7 BUN 15 Creatinine 0.92 Estim Creat Clear Calc 64.78 Est GFR (MDRD) Af Amer 79 Est GFR (MDRD) Non-Af 66 BUN/Creatinine Ratio 16.2 Glucose 86 Lactic Acid Calcium 9.2 Troponin I < 0.015 Urine Color Urine Clarity Urine pH Ur Specific [place] Urine Protein Urine Glucose (UA) Urine Ketones Urine Occult Blood Urine Nitrite Urine Bilirubin Urine Urobilinogen Ur Leukocyte Esterase Urine RBC Urine WBC Ur Squamous Epith Cells Urine Bacteria Urine Mucus 05/12/19 05/12/19 20:40 21:30 WBC RBC Hgb Hct MCV MCH MCHC RDW Std Deviation RDW Coeff of Marylu Plt Count MPV Immature Gran % (Auto) Neut % (Auto) Lymph % (Auto) Terry % (Auto) Eos % (Auto) Baso % (Auto) Absolute Neuts (auto) Absolute Lymphs (auto) Nucleated RBC % Differential Comment Platelet Estimate Macrocytosis PT INR Sodium Potassium Chloride Carbon Dioxide Anion Gap BUN Creatinine Estim Creat Clear Calc Est GFR (MDRD) Af Amer Est GFR (MDRD) Non-Af BUN/Creatinine Ratio Glucose Lactic Acid 1.1 Calcium Troponin I Urine Color Yellow Urine Clarity Clear Urine pH 5.0 Ur Specific [place] 1.025 Urine Protein 30 H Urine Glucose (UA) Normal Urine Ketones 50 H Urine Occult Blood Negative Urine Nitrite Negative Urine Bilirubin 1 H Urine Urobilinogen 1 H Ur Leukocyte Esterase 25 H Urine RBC 0 SEEN Urine WBC 0-5 SEEN Ur Squamous Epith Cells 0-5 SEEN Urine Bacteria 1+ Urine Mucus 0 SEEN - Rhythm Strip Rhythm Strip: Sinus Rhythm Rate: 69 Ectopy: None - EKG Initial EKG Interpretation: Sinus Rhythm, - - Normal sinus rhythm at a rate of 69 Normal intervals Normal axis Nonspecific T wave inversion in aVL - Medical Decision Making Patient is evaluated for worsening confusion and mental status change. Her past medical history is complicated by glioblastoma multiform. Patient has a n nonfocal neurologic exam. She does appear confused and likely delirious. No obvious metabolic organic cause of her mental status changes found. Family is concerned because she is unable to do her activities of daily living and she is already prone to falls as well as poor wound healing. I agree the patient will require admission for further evaluation. While I cannot rule out a subtle change in her GBM as the cause of her symptoms I suspect it is more polypharmacy as she recently was started on trazodone. Discussed with hospitalist for admission for further evaluation and monitoring who declined stating that because of her significant GBM history she should go to where her oncology care is. Discussed with [facility] transfer line, Dr. Lux, who agrees with this. He accepts her for transfer. Patient is stable in the ER and stable for the general medical floor at time of disposition. Family is agreeable and understanding with this plan. ED Disposition - Plan for ED Patient: Disposition: [facility] - Main Diagnosis: Acute delirium Referrals: Loc Arizmendi DO [Primary Care Provider] -
[2019-05-12 20:52] LABS: Absolute Lymphocyte Count 0.55 X10^3/uL (0.83-4.51); Absolute Neutrophil Count 3.4 X10^3/uL (2.0-7.7); Basophil# 0.04 X10^3/uL; Basophil% 0.9 % (0-1); Eosinophil# 0.05 X10^3/uL; Eosinophils% 1.1 % (0-5); Hematocrit 45.3 % (37-47); Hemoglobin 14.6 g/dL (12.0-15.0); Lymphocyte # 0.55 X10^3/ul (4.0); Mean Corp Hgb Conc 32.2 g/dL (32-36); Mean Corpuscular Hgb 32.3 pg (27.0-32.0); Mean Corpuscular Volume 100.2 fL (81-99); Mean Platelet Vol. 9.4 fl (6.2-12.0); Monocyte# 0.44 X10^3/uL; Monocyte% 9.6 % (0-10); NRBC Flagged by Analyzer 0 % (0-5); Neutrophil # 3.42 X10^3/uL (2.7-7.7); Neutrophil % 74.9 % (47-70); POSITIVE DIFFERENTIAL YES; Platelet Count 156 K/mm3 (150-450); RBC Distribution Width CV 13.2 % (11.6-14.6); RBC Distribution Width SD 48.5 fl (35.1-43.9); Red Blood Count 4.52 M/mm3 (4.2-5.4); White Blood Count 4.6 K/mm3 (4.4-11.0)
[2019-05-12 20:53] LABS: Differential Indicated SCAN CRITERIA MET
[2019-05-12 20:58] LABS: International Normalized Ratio 0.9; Prothrombin Time (Protime)PT. 12.4 SECONDS (11.7-14.9)
[2019-05-12 21:08] LABS: Anion Gap 7 (5-15); BUN 15 mg/dL (7-18); BUN/Creat Ratio 16.2 RATIO (10-20); Calcium,Total 9.2 mg/dL (8.5-10.1); Chloride 104 mmol/L (98-107); Creatinine, Serum 0.92 mg/dL (0.55-1.02); EST Glomerular Filtration Rate 66 mL/min (>60); Est Glom Filt Rate - Afr Amer 79 mL/min (>60); Estimated Creatinine Clearance 64.78 ml/min; Glucose 86 mg/dL (74-106); Potassium 3.9 mmol/L (3.5-5.1); Sodium Level 137 mmol/L (136-145)
--- NOTE | 2019-05-12 21:10 | RAD_ITS ---
STUDY: X-RAY CHEST REASON FOR EXAM: Female, 59 years old. Confusion and altered mental status. TECHNIQUE: Frontal and lateral views of the chest. COMPARISON: 03/02/2017. FINDINGS: There are findings consistent with COPD. There is no evidence of acute chest disease.. No infiltrates or effusions. Probable mild fibrotic changes in both lung bases, stable. Normal size heart. Normal mediastinum and michelle. Normal visualized pulmonary arteries. Normal visualized aortic arch and descending thoracic aorta. There are diffuse degenerative changes of the visualized thoracic spine. Compression fractures of L1 and L2 not present on exam of 10/10/2015. Normal visualized ribs, clavicles, and shoulders. There is no demonstrated abnormality of the visualized soft tissue structures of the upper abdomen. RAD/Chest PA and Lateral IMPRESSION: There are findings consistent with COPD. There is no evidence of acute chest disease. Electronically Signed: Mikael Baeza MD at 21:41 EDT , Service support ,
[2019-05-12 21:11] LABS: Lactic Acid 1.1 mmol/L (0.4-2.0)
[2019-05-12] MEDS: 0.9% Normal Saline 1,000 ML 1000 ML IV (21:21)
[2019-05-12 21:28] LABS: Differential Comment SCANNED; Platelet Estimate ADEQUATE (ADEQ)
[2019-05-12 21:29] LABS: Macrocytosis 1+
[2019-05-12 21:33] LABS: Mucous, Urine 0 SEEN /hpf (<or=2+); Red Blood Cells-Urine 0 SEEN /hpf (0-5)
[2019-05-12 21:44] LABS: Color, Urine Yellow (Yellow); Glucose, Dipstick Normal (Normal); Ketone-Dipstick 50 mg/dl (Negative); Leukocyte Esterase-Dipstick 25 /ul (Negative); Nitrite-Dipstick Negative (Negative); Occult Blood-Urine Negative /ul (Negative); Protein-Dipstick 30 mg/dl (Negative); Specific Gravity, Urine 1.025 (1.002-1.030); Urine Bilirubin Dipstick 1 mg/dL (Negative); Urine Clarity Clear (Clear); Urine Urobilinogen 1 mg/dl (Normal)
[2019-05-12 21:46] LABS: Bacteria 1+ /hpf (None Seen); Squamous Epithelial Cells - UA 0-5 SEEN /hpf (5-10); White Blood Cells 0-5 SEEN /hpf (0-5)
[2019-05-12 21:52] VITALS: BP 132/82; PULSE 64; RESP 20; O2SAT 98
[2019-05-12 23:00] VITALS: BP 147/78; PULSE 68; RESP 17; O2SAT 95
[2019-05-12] MEDS: Acetaminophen 325 MG Tablet 650 MG PO (23:23)
--- NOTE | 2019-05-13 00:25 | NURSING ---
ACCEPTED TO [place] [id number]
[2019-05-13 01:02] VITALS: BP 147/78; PULSE 68; RESP 16; O2SAT 97
== END 2019-05-13 01:03 | disposition short-term general hospital (02) ==
PROVIDERS: Emergency Provider Emergency Medicine; Family Provider Student in an Organized Health Care Education/Training Program; PCP Student in an Organized Health Care Education/Training Program
DX: R41.0 Disorientation, unspecified (principal); C71.9 Malignant neoplasm of brain, unspecified; Z79.899 Other long term (current) drug therapy
CPT/HCPCS: 70450; 71046; 80048; 81001; 83605; 84484; 85025; 85610; 87086; 93005; 96360; 99285; J7030; P9612

== ENCOUNTER 2019-05-24 08:38 | Outpatient (RCR) | payer MEDICARE, SELFPAY ==
[2019-05-18 00:43] VITALS: BP 113/73; PULSE 65; RESP 18; TEMP 36.6
== END 2019-06-16 23:59 ==
LOC: WC 08:38
PROVIDERS: Family Provider Student in an Organized Health Care Education/Training Program; PCP Student in an Organized Health Care Education/Training Program; Visit Provider Surgery
DX: Z09 Encounter for follow-up examination after completed treatment for conditions other than malignant neoplasm (principal)

== ENCOUNTER 2020-01-03 03:45 | Inpatient (IN) | payer MEDICARE, SELFPAY ==
--- NOTE | 2020-01-03 05:00 | RAD_ITS ---
STUDY: X-RAY - LEFT TIBIA AND FIBULA REASON FOR EXAM: Female, 59 years old. s/p fall -- skin tear / wound lateral Lt mid-lower tib fib -- hx of skin grafts to leg TECHNIQUE: 4 view(s) of the tibia and fibula were obtained. COMPARISON: None. FINDINGS: Normal visualized tibia. Normal visualized fibula. There is lateral contour irregularity of the soft tissues, consistent with history of recent pneumonia and/or previous graft. There is no demonstrated radiodense foreign body. RAD/Tibia & Fibula 2 Views IMPRESSION: No demonstrated fracture, dislocation, or destructive osseous lesion. No demonstrated radiodense foreign body. Electronically Signed: Sathya Long MD at 5:28 EDT , Service support ,
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
--- NOTE | 2020-01-03 05:57 | CT_ITS ---
STUDY: CT BRAIN WITHOUT CONTRAST REASON FOR EXAM: Female, 59 years old. FALL- BRAIN CA RADIATION DOSAGE (If Supplied By Facility): CTDIvol = ( 44.99 ) mGy, DLP = ( 745.49 ) mGycm TECHNIQUE: Transaxial CT imaging of the brain was performed without administration of intravenous contrast material. Individualized dose optimization techniques were used for this CT. COMPARISON: CT scan brain 05/12/2019. FINDINGS: Normal soft tissue structures. There is a right parietal and occipital craniotomy defect. There is underlying encephalomalacia in the right occipital, parietal, and posterior temporal lobes. There are parenchymal calcifications in the right occipital and parietal lobes which are stable in appearance. There is mild cerebral atrophy with widening of the extra-axial spaces and ventricular dilatation. There are areas of decreased attenuation within the white matter tracts of the supratentorial brain, consistent with microvascular disease changes. Normal basal ganglia and thalami. Normal brainstem. There is mild cerebellar atrophy. There is no intracranial hemorrhage. There are no findings of an acute ischemic infarction. Normal visualized paranasal sinuses. CT/Brain/Head without Contrast IMPRESSION: Chronic involutional changes of the brain. Status post right craniotomy. Areas of underlying encephalomalacia and parenchymal calcification, stable in appearance. No demonstrated acute intracranial process. Electronically Signed: Sathya Long MD at 6:56 EDT , Service support ,
--- NOTE | 2020-01-03 05:58 | CT_ITS ---
STUDY: CT CERVICAL SPINE WITHOUT CONTRAST REASON FOR EXAM: Female, 59 years old. Status post fall. History of brain cancer. RADIATION DOSAGE (If Supplied By Facility): CTDIvol = ( 14.92 ) mGy, DLP = ( 291.56 ) mGycm TECHNIQUE: High resolution transaxial imaging was performed without contrast material. Sagittal and coronal images were reconstructed. Individualized dose optimization techniques were used for this CT. COMPARISON: None FINDINGS: Normal craniovertebral junction. Normal anterior atlantoaxial articulation. Normal odontoid process. There is straightening of the normal lordotic curve, a nonspecific finding, which may be due to positioning or which might be due to muscle spasm. Normal vertebral bodies and posterior osseous elements. C2-3: Normal endplates. Normal disc height and morphology. Normal central canal and intervertebral neuroforamina. C3-4: Normal endplates. Normal disc height and morphology. Degenerative changes left uncovertebral joint. Normal central canal. Normal right and mild narrowing left intervertebral neuroforamina. C4-5: Normal endplates. Normal disc height and morphology. Degenerative changes right uncovertebral and apophyseal joints. Normal central canal. Moderate narrowing right normal left intervertebral neuroforamina. C5-6: Spondylosis. Disc space narrowing. Broad posterior disc osteophyte complex. Degenerative changes bilateral vertebral joints.. Normal central canal. Mild narrowing right and moderate narrowing left intervertebral neuroforamina. C6-7: Mild spondylosis. Small broad posterior disc protrusion.. Normal central canal and intervertebral neuroforamina. C7-T1: Mild spondylosis.. Normal disc height and morphology. Normal central canal and intervertebral neuroforamina. Normal visualized soft tissue structures. CT/Spine Cervical without Contras IMPRESSION: Multilevel degenerative changes, as described above. No demonstrated fracture or subluxation. Electronically Signed: Sathya Long MD at 7:10 EDT , Service support ,
--- NOTE | 2020-01-03 06:01 | CT_ITS ---
STUDY: CT ABDOMEN AND PELVIS WITH CONTRAST REASON FOR EXAM: Female, 59 years old. FALL- BRAIN CA RADIATION DOSAGE (If Supplied By Facility): CTDIvol = ( 27.23 ) mGy, DLP = ( 1300.98 ) mGycm TECHNIQUE: Transaxial images were obtained from the dome of the diaphragm to the symphysis pubis without oral contrast. IV - 100 ML ISOVUE 370 was administered. Sagittal and coronal images were reconstructed. Individualized dose optimization techniques were used for this CT. COMPARISON: CT scan chest done today. FINDINGS: The lower lung field findings will be discussed in CT scan chest report. Normal liver. Normal gallbladder and extrahepatic biliary system. Normal spleen. Normal pancreas. Normal bilateral adrenal glands. Normal right kidney. There are areas of cortical scarring in the left kidney. There is no demonstrated urinary calculus or hydronephrosis. Assessment the stomach is limited by nondistention. Normal small intestine. Normal colon. The appendix is visualized on axial images 63-68 and it appears normal.. Normal abdominal aorta. Normal inferior vena cava. Normal retroperitoneum. Normal urinary bladder. There is an umbilical hernia which contains fat, but no bowel. There is a prominent compression fracture deformities of the T11, L1, and L2 vertebral bodies which appear to be chronic. There are less prominent compression deformities of the T12 and L5 vertebral bodies as well as vertebral endplates of the L3 and L4 vertebral bodies, which also appear to be chronic. There were old healed fractures of the left transverse processes of L2-L3, and L4. CT/Abdomen/Pelvis W IV Cont ONLY IMPRESSION: Multiple lumbar compression fractures. Multiple old fractures of left lumbar transverse processes. Prominent cortical scarring of the left kidney. No demonstrated urinary calculi or hydronephrosis. Umbilical hernia contains fat, but no bowel. No evidence for acute pathology in the abdomen or pelvis. No evidence for significant acute internal injury. Electronically Signed: Sathya Long MD at 6:52 EDT , Service support ,
--- NOTE | 2020-01-03 06:01 | CT_ITS ---
STUDY: CT CHEST WITH CONTRAST REASON FOR EXAM: Female, 59 years old. FALL- BRAIN CA RADIATION DOSAGE (If Supplied By Facility): CTDIvol = ( 18.86 ) mGy, DLP = ( 916.30 ) mGycm TECHNIQUE: Transaxial imaging was performed following intravenous administration of . Individualized dose optimization techniques were used for this CT. COMPARISON: CT scan abdomen and pelvis done today. FINDINGS: There is mild atelectasis in the posterior lungs. There are no demonstrated acute pulmonary infiltrates or pulmonary contusions. There is no demonstrated pleural abnormality. Normal heart and pericardium. Normal mediastinum. Normal hilar regions. Normal enhanced pulmonary arteries. Normal aorta arch and descending thoracic aorta. There are compression fractures of the T11 and L1 vertebral bodies which appear to be chronic. There are multilevel degenerative changes of thoracic spine. There are old healed fractures through the posterior or posterolateral segments of the right sixth through 10th ribs. Abdominal findings were discussed in CT scan abdomen and pelvis report. CT/Chest WITH Contrast IMPRESSION: Old right rib fractures. Compression fractures of lower thoracic and upper lumbar vertebra appear to be chronic. No evidence for acute cardiopulmonary pathology. No evidence for significant acute internal injury. Electronically Signed: Sathya Long MD at 7:04 EDT , Service support ,
[2020-01-03 06:32] LABS: Hematocrit 37.4 % (37-47); Hemoglobin 12.3 g/dL (12.0-15.0); Mean Corp Hgb Conc 32.9 g/dL (32-36); Mean Corpuscular Hgb 32.6 pg (27.0-32.0); Mean Corpuscular Volume 99.2 fL (81-99); Mean Platelet Vol. 9.7 fl (6.2-12.0); POSITIVE DIFFERENTIAL YES; Platelet Count 166 K/mm3 (150-450); RBC Distribution Width CV 14.6 % (11.6-14.6); RBC Distribution Width SD 52.9 fl (35.1-43.9); Red Blood Count 3.77 M/mm3 (4.2-5.4); White Blood Count 5.3 K/mm3 (4.4-11.0)
[2020-01-03 06:34] LABS: Anion Gap 8 (5-15); BUN 17 mg/dL (7-18); BUN/Creat Ratio 20.2 RATIO (10-20); Calcium,Total 8.8 mg/dL (8.5-10.1); Chloride 104 mmol/L (98-107); Creatinine, Serum 0.84 mg/dL (0.55-1.02); EST Glomerular Filtration Rate 73 mL/min (>60); Est Glom Filt Rate - Afr Amer 88 mL/min (>60); Glucose 97 mg/dL (74-106); Potassium 4.1 mmol/L (3.5-5.1); Sodium Level 138 mmol/L (136-145)
--- NOTE | 2020-01-03 07:28 | HP.PCM_ITS ---
Problem List (1) Open wound of left knee Status: Chronic (2) Venous insufficiency of both lower extremities Status: Chronic (3) Ulcer of left foot Status: Chronic (4) Ulcer of left calf Status: Chronic (5) Ulcer of left lower leg Status: Chronic (6) Ulcer of upper extremity Status: Acute (7) Skin tear of left lower leg without complication Status: Acute (8) Frequent falls Status: Acute (9) Abrasion of right leg Status: Chronic (10) Abrasion of left leg Status: Chronic (11) Nonhealing ulcer of right lower extremity with fat layer exposed Status: Chronic (12) Traumatic open wound of left lower leg Status: Chronic (13) Traumatic open wound of right lower leg Status: Chronic (14) Non-pressure chronic ulcer of left lower leg with muscle involvement without evidence of necrosis Status: Chronic (15) GERD (gastroesophageal reflux disease) Status: Chronic (16) Nausea Status: Chronic (17) Seizure disorder Status: Chronic (18) Hypertension Status: Chronic (19) Anxiety Status: Chronic (20) Chronic pain Status: Chronic (21) Neuropathic pain Status: Chronic (22) Other complications of skin graft (allograft) (autograft) Status: Acute (23) Failed skin graft Status: Acute (24) Complication of skin graft Status: Chronic (25) Glioblastoma multiforme Status: Chronic (26) Ulcers of both lower legs Status: Chronic Comment: multiple infected ulcers bilateral legs L97.919 (27) Wound, open, lower limb with complication Status: Acute (28) Infected open wound Status: Acute (29) MRSA (methicillin resistant staph aureus) culture positive Status: Acute (30) Debility, unspecified Status: Chronic (31) Glioblastoma Status: Chronic History of Present Illness Date of Admission: 01/03/20 Chief Complaint: Fall The patient is a 59 year old F with history of glioblastoma brain status post craniotomy, chemotherapy on long-term dexamethasone came to ED with fall. Patient sled down from the bed on her right side and hurt her right chest, shoulder area and right lumbar area. She has a skin atrophy with multiple bruises and ulcers lower extremities. Has chronic nonhealing ulcer over left leg and skin grafts on left leg and right leg. Skin grafting's were done by Dr. Moya in the past. She did not loss consciousness. She had hit her head. As per her she had last fall about 6 months ago when she went to [facility] In ED, she had multiple x-rays and CT scan which did not show acute change or fracture. CBC and BMP is grossly in normal range Past Medical History Past Medical History (Chronic Problems): Chronic Problems (Last Updated 12/16/17 @ 17:[address] Sari Hawk DO) Open wound of left knee (Chronic) Venous insufficiency of both lower extremities (Chronic) Ulcer of left foot (Chronic) Ulcer of left calf (Chronic) Ulcer of left lower leg (Chronic) Glioblastoma (Chronic) Abrasion of right leg (Chronic) Abrasion of left leg (Chronic) Nonhealing ulcer of right lower extremity with fat layer exposed (Chronic) Traumatic open wound of left lower leg (Chronic) Traumatic open wound of right lower leg (Chronic) Non-pressure chronic ulcer of left lower leg with muscle involvement without evidence of necrosis (Chronic) GERD (gastroesophageal reflux disease) (Chronic) Nausea (Chronic) Seizure disorder (Chronic) Hypertension (Chronic) Anxiety (Chronic) Chronic pain (Chronic) Neuropathic pain (Chronic) Complication of skin graft (Chronic) Glioblastoma multiforme (Chronic) Ulcers of both lower legs (Chronic) multiple infected ulcers bilateral legs L97.919 Debility, unspecified (Chronic) Medical History: Medical History (Last Updated 12/16/17 @ 17:[address] Sari aHwk DO) Other complications of skin graft (allograft) (autograft) (Acute) T86.828 Failed skin graft (Acute) T86.821 Ulcers of both lower legs (Chronic) L97.919, L97.929 multiple infected ulcers bilateral legs L97.919 Allergies adhesive tape Adverse Reaction (Verified 01/19/18 10:54) VERY THIN STEROID SKIN WILL REMOVE SKIN IF ON TOO LONG Home Medications: Ambulatory Orders Medication Instructions Recorded Cholecalciferol (Vitamin D3) 5,000 unit PO DAILY 03/02/17 [Vitamin D3] Dexamethasone 3 mg PO DAILY 03/02/17 Famotidine [Pepcid] 20 mg PO BID 03/02/17 Multivitamin [Daily Multiple 1 each PO DAILY 03/02/17 Vitamin] Levetiracetam 750 mg PO BID 05/03/17 Calcium (Elemental) [Os-Guido 500] 500 mg PO DAILY 07/08/17 Acetaminophen [Tylenol Extra 1,000 mg PO DAILY PRN PRN 01/24/18 Strength] Polyethylene Glycol 3350 [Miralax] 17 gm PO PRN PRN 01/31/18 Bisacodyl [Dulcolax] 10 mg PO DAILY PRN tablet 02/24/18 Sertraline HCl [Zoloft] 100 mg PO DAILY 05/12/19 Trazodone HCl 50 mg PO QHS 05/12/19 Surgical History: dilatation and curettage, - Psychiatric History: No pertinent psych hx [employer] WORK[employer] History: No pertinent [employer] WORK[employer] history Smoking Status: Former smoker - Quit a month ago. Smoked since age of 12 a pack per day, about 47 pack years of smoking - *Family History Maternal History Items: COPD - of COPD Paternal History Items: No pertinent history Review of Systems Constitutional: Denies: Chills, Fever, Weight Change HEENT: Denies: Head Aches, Sinus Congestion, Sinus Drainage Cardiovascular: Denies: Chest Pain, Palpitations Respiratory: Denies: Cough, Shortness of breath at rest, Sputum production Gastrointestinal: Denies: Abdominal Pain, Nausea, Vomiting Genitourinary: Denies: Dysuria Musculoskeletal: Reports: Back Pain, Joint Pain. Denies: Joint Tenderness Skin: Reports: Skin Changes, Wounds. Denies: Rash Neurological: Denies: Numbness, Tingling, Focal weakness Psychiatric: Denies: Anxiety, Depression, Homicidal Ideations, Suicidal Ideations Hematologic/ Lymphatic: Reports: Easy Bruising. Denies: Easy Bleeding VTE Information - Inpt Only VTE Present on Admission: No VTE Mechan Device Prophylaxis: None VTE Pharm Prophylaxis ordered?: Yes - Physical Exam Vitals/I&O's: Body Mass Index (BMI) 30.4 General: Alert, Oriented x3, Cooperative HEENT: Atraumatic, PERRLA, EOMI, Normocephalic Oral: No Gingival or Mucosal Lesions/ Ulcerations, Dry Mucosa Neck: Supple, No JVD, Negative Carotid Bruits Lungs: Clear to auscultation, Normal air movement, No rhonchi, No wheeze, No rales Cardiovascular: Regular rate, Regular Rhythm, Normal S1, Normal S2, No murmurs Abdomen: Bowel Sounds Present, Soft, Non Tender, Non-Distended Extremities: No edema, Capillary Refill Less than 3 Seconds Skin: Ulcer/ Wound - Nonhealing ulcer over left leg. Skin graft changes in both lower legs. Generalized skin atrophy., Skin Tear Musculoskeletal: No Tenderness to Palpation of Joints or Extremities, Arthritic Changes Neurological: Cranial nerves II-XII grossly intact, Deep Tendon Reflexes 2+/4 and Symmetrical, Neuro grossly intact Psych/Mental Status: Normal Affect, Appropriate Laboratory Results 01/03/20 04:33: WBC 5.3, RBC 3.77 L, Hgb 12.3, Hct 37.4, MCV 99.2 H, MCH 32.6 H, MCHC 32.9, RDW Std Deviation 52.9 H, RDW Coeff of Marylu 14.6, Plt Count 166, MPV 9.7 01/03/20 04:33: Sodium 138, Potassium 4.1, Chloride 104, Carbon Dioxide 26.0, Anion Gap 8, BUN 17, Creatinine 0.84, Est GFR (MDRD) Af Amer 88, Est GFR (MDRD) Non-Af 73, BUN/Creatinine Ratio 20.2 H, Glucose 97, Calcium 8.8 Assessment/Plan All Active Problems (Last Updated 12/16/17 @ 17:[address] Sari Hawk, DO) Ulcer of upper extremity (Acute) Ulcer of upper extremity, limited to breakdown of skin (Acute) Skin tear of left lower leg without complication (Acute) Frequent falls (Acute) Other complications of skin graft (allograft) (autograft) (Acute) Failed skin graft (Acute) Wound, open, lower limb with complication (Acute) Infected open wound (Acute) MRSA (methicillin resistant staph aureus) culture positive (Acute) The patient is a 59 year old F with history of glioblastoma brain status post craniotomy, chemotherapy on long-term dexamethasone came to ED with fall and soft tissue injury of right side of body. In ED, she had multiple x-rays and CT scan which did not show acute change or fracture. CBC and BMP is grossly in normal range 1. recurrent fall, weakness of lower extremity probably secondary to prolonged steroid and debility: Patient is being admitted on MedSurg floor. CK and CRP ordered. PT and OT. IV fluid patient hydrated. Vitamin B12, vitamin D 25, folic acid and TSH ordered. Patient walks on Rollator. 2. Chronic nonhealing ulcer of left lower extremity and deep scarring of both lower extremity with skin graft: Wound nurse is being consulted. 3. Glioblastoma multi-forming status post craniectomy and chemoradiation on long-term dexamethasone and Keppra: Patient is on dexamethasone 3 mg daily and Keppra 750 mg p.o. twice daily and continued. She follows Dr. Arciniega in [facility]. 4. Chronic smoker, quit a month ago: Patient was encouraged to maintain remission. 5. Chronic pain, neuropathic pain, GERD, seizure, and previous failed skin graft: Multiple comorbidities complicates the present care and expect difficult and delay recovery 6. DVT prophylaxis: Lovenox 40 minutes subcu daily. Discontinue if platelet count drops less than 50,000 or hemoglobin less than 8 g% Living will/advanced directive/end of life care: Patient does have living will or advanced directive. Her daughter, Ms. Chanelle saavedra is power of employment law attorney. After discussion of procedures involved with full code, DNR CC arrest and DNR CC, the patient opted for DNR-CC Arrest Patient does not want artificial life support including intubation, tube feed, ventilator and/chest compression, central venous catheter, vasopressor and DC shock during terminal or irreversible condition. DNR CC arrest. Total time spent in [id number] encounter in discussion of advanced directive 16 minutes. Clinical Impression(s) from Imaging Studies Left tibia/Fibula X-Ray 01/03/20 05:00 IMPRESSION: No demonstrated fracture, dislocation, or destructive osseous lesion. No demonstrated radiodense foreign body. Electronically Signed: Sathya Long MD at 5:28 EDT , Service support , Brain CT 01/03/20 05:57 IMPRESSION: Chronic involutional changes of the brain. Status post right craniotomy. Areas of underlying encephalomalacia and parenchymal calcification, stable in appearance. No demonstrated acute intracranial process. Cervical Spine CT 01/03/20 05:58 IMPRESSION: Multilevel degenerative changes, as described above. No demonstrated fracture or subluxation. Abdomen/Pelvis CT 01/03/20 06:01 IMPRESSION: Multiple lumbar compression fractures. Multiple old fractures of left lumbar transverse processes. Prominent cortical scarring of the left kidney. No demonstrated urinary calculi or hydronephrosis. Umbilical hernia contains fat, but no bowel. No evidence for acute pathology in the abdomen or pelvis. No evidence for significant acute internal injury. Chest CT 01/03/20 06:01 IMPRESSION: Old right rib fractures. Compression fractures of lower thoracic and upper lumbar vertebra appear to be chronic. No evidence for acute cardiopulmonary pathology. No evidence for significant acute internal injury. Inpatient E&M: 73035 Init Hosp L3 Procedures: 59708 Advncd Care Plan 30 Min
[2020-01-03 08:29] VITALS: BMI 31.9
[2020-01-03 08:34] VITALS: BMI 31.8
[2020-01-03 09:10] VITALS: BP 114/74; PULSE 70; RESP 16; TEMP 36.7; O2SAT 94
[2020-01-03 09:28] LABS: Magnesium 1.9 mg/dL (1.6-2.6)
[2020-01-03] MEDS: 0.45% Normal Saline 1,000 ML 75 ML IV (09:56)
[2020-01-03] MEDS: 0.9% Saline Lock 10 ML Syringe IV ×2 (09:56→23:56)
[2020-01-03 09:59] LABS: CPK Total, Creatine Kinase 145 U/L (26-192)
--- NOTE | 2020-01-03 10:35 | CASEMGMT ---
AMY BROOKS Face to Face with patient for initial transition planning/care coordination assessment. RN CM introduced self and role at [facility]. Patient lying in bed, alert and oriented. Patient willing to participate in assessment and is able to answer all questions appropriately. Care providers, pharmacy, and demographics verified. Patient wishes to discharge home, denies need for home health at this time. Patient states she has no further needs or concerns at this time. CM to follow for discharge planning needs that may arise. PCP: [facility] Specialists: [facility]erred [facility]acy: [facility] Prescription Benefit: yes Living Will/HPOA: yes, daughter Chanelle Vega LNOK: daughter Living Arrangements: Patient lives alone in 1 story home with ramp to enter the home. patient states she is independent at home for self care and has an aide 2x per week Transportation: Mother in law, daughter DME/HHC: Patient states she has shower chair, cane, walker, rollator, wheelchair, and grab bars. Patient has aide services 2x per week, not sure which company. Disposition Plan: Patient to discharge home with family support and follow-up plans in place. Will monitor for need for HHC for wound care. Pricilla HERNANDEZ, RN, CM
[2020-01-03] MEDS: Sertraline 100 MG Tablet PO (11:12)
[2020-01-03] MEDS: levETIRAcetam 750 MG Tablet PO ×2 (11:13→23:57)
[2020-01-03] MEDS: Enoxaparin 40 MG/0.4 ML Syringe SC (11:13)
[2020-01-03] MEDS: Famotidine 20 MG Tablet PO ×2 (11:13→23:56)
[2020-01-03 11:17] LABS: Vitamin B12 404 pg/mL (211-911); Vitamin D,25 Hydroxy 45.7 ng/mL
[2020-01-03] MEDS: Calcium (Elemental) 500 MG Tablet PO (11:21)
[2020-01-03] MEDS: Cyanocobalamin 500 MCG Tablet PO (12:50)
[2020-01-03 14:20] VITALS: BP 113/81; PULSE 74; RESP 18; TEMP 36.6; O2SAT 94
[2020-01-03 15:16] VITALS: O2SAT 94
--- NOTE | 2020-01-03 15:17 | CPS ---
started by nursing
--- NOTE | 2020-01-03 16:31 | PCM.CONS.GEN ---
Reason for Consult Date of Consultation: 01/03/20 Reason for Consultation: Traumatic hematoma left anterior leg. REFERRING PHYSICIAN: Dr. Massey. BANDAGE WRAPPING MACHINE OPERATOR: Dr. Moya. History of Present Illness: The patient is a 59 year old F with history of glioblastoma brain status post craniotomy, chemotherapy on long-term dexamethasone came to ED because of recent falls. Patient is known to me from previous falls that resulted in chronic ulcers that needed debridement and wound care and antibiotics and eventual skin grafting. She was admitted now for falls and she sustained a traumatic hematoma left anterolateral leg. She complains of pain in the left leg. She states she sustained the hematoma about a month ago. She was concerned because of some skin discoloration. X-ray showed no fracture. I was asked to evaluate this patient for surgical options for treatment. Past Medical History Past Medical History (Chronic Problems): Chronic Problems (Last Updated 12/16/17 @ 17:[address] Sari Hawk DO) Open wound of left knee (Chronic) Venous insufficiency of both lower extremities (Chronic) Ulcer of left foot (Chronic) Ulcer of left calf (Chronic) Ulcer of left lower leg (Chronic) Glioblastoma (Chronic) Abrasion of right leg (Chronic) Abrasion of left leg (Chronic) Nonhealing ulcer of right lower extremity with fat layer exposed (Chronic) Traumatic open wound of left lower leg (Chronic) Traumatic open wound of right lower leg (Chronic) Non-pressure chronic ulcer of left lower leg with muscle involvement without evidence of necrosis (Chronic) GERD (gastroesophageal reflux disease) (Chronic) Nausea (Chronic) Seizure disorder (Chronic) Hypertension (Chronic) Anxiety (Chronic) Chronic pain (Chronic) Neuropathic pain (Chronic) Complication of skin graft (Chronic) Glioblastoma multiforme (Chronic) Ulcers of both lower legs (Chronic) multiple infected ulcers bilateral legs L97.919 Debility, unspecified (Chronic) Medical History: Medical History (Last Updated 12/16/17 @ 17:[address] Sari Hawk DO) Other complications of skin graft (allograft) (autograft) (Acute) T86.828 Failed skin graft (Acute) T86.821 Ulcers of both lower legs (Chronic) L97.919, L97.929 multiple infected ulcers bilateral legs L97.919 Allergies adhesive tape Adverse Reaction (Verified 01/19/18 10:54) VERY THIN STEROID SKIN WILL REMOVE SKIN IF ON TOO LONG Home Medications: Ambulatory Orders Medication Instructions Recorded Dexamethasone 3 mg PO DAILY 03/02/17 Famotidine [Pepcid] 20 mg PO BID 03/02/17 Multivitamin [Daily Multiple 1 each PO DAILY 03/02/17 Vitamin] Levetiracetam 750 mg PO BID 05/03/17 Polyethylene Glycol 3350 [Miralax] 17 gm PO PRN PRN 01/31/18 Bisacodyl [Dulcolax] 10 mg PO DAILY PRN tablet 02/24/18 Acetaminophen [Tylenol] 650 mg PO Q6H PRN PRN 01/03/20 Calcium Carbonate [Tums] 600 mg PO BID 01/03/20 Calcium Carbonate/Vitamin D3 1 ea PO BID 01/03/20 [Calcium 600 + Vit D Tablet] Melatonin 6 mg PO QHS 01/03/20 Ondansetron [Zofran Odt] 8 mg PO Q8H PRN PRN 01/03/20 Ondansetron [Zofran] 8 mg PO Q8H PRN PRN 01/03/20 Quetiapine Fumarate [Seroquel] 25 mg PO QHS 01/03/20 Senna [Senokot] 1 tab PO BID 01/03/20 Sertraline HCl [Zoloft] 150 mg PO QHS 01/03/20 Surgical History: dilatation and curettage, - Psychiatric History: No pertinent psych hx GASKET INSPECTOR History: No pertinent GASKET INSPECTOR history Smoking Status: Former smoker - Quit a month ago. Smoked since age of 12 a pack per day, about 47 pack years of smoking - *Family History Maternal History Items: COPD - of COPD Paternal History Items: No pertinent history Review of Systems Comment: Constitutional: Denies: Chills, Fever, Weight Change. HEENT: Denies: Head Aches, Sinus Congestion, Sinus Drainage. Cardiovascular: Denies: Chest Pain, Palpitations. Respiratory: Denies: Cough, Shortness of breath at rest, Sputum production. Gastrointestinal: Denies: Abdominal Pain, Nausea, Vomiting. Genitourinary: Denies: Dysuria. Musculoskeletal: Reports: Back Pain, Joint Pain. Denies: Joint Tenderness. Skin: Reports: Skin Changes, Wounds. Denies: Rash. Neurological: Denies: Numbness, Tingling, Focal weakness. Psychiatric: Denies: Anxiety, Depression, Homicidal Ideations, Suicidal Ideations. Hematologic/ Lymphatic: Reports: Easy Bruising. Denies: Easy Bleeding Patient Problems: Active and Suspected Problems (Last Updated 12/16/17 @ 17:[address] Sari Hawk DO) Traumatic hematoma of left lower leg (Acute) - Physical Exam Vitals/I&O's: General: Alert, Oriented x3, Cooperative HEENT: PERRLA, EOMI. Oral: Dry Mucosa. Neck: Supple, Nontender. No cervical adenopathy. Lungs: Clear to auscultation. Cardiovascular: Regular rate, Regular Rhythm. Abdomen: Soft, Nondistended. Extremities: No edema, Capillary Refill Less than 3 Seconds Skin: Ulcer/ Wound - Nonhealing ulcer over left anterolateral leg with associated traumatic hematoma. Some tenderness to palpation. No purulent drainage noted. Some skin discoloration seen. Measures 6 x 5 cm. Neurological: Cranial nerves II-XII grossly intact. Psych/Mental Status: Normal Affect, Appropriate Vital Signs Temp Pulse Resp BP Pulse Ox 97.9 F 74 18 113/81 H 94 01/03/20 14:20 01/03/20 14:20 01/03/20 14:20 01/03/20 14:20 01/03/20 15:16 Oxygen Delivery Method Room Air Weight: 209 lb 14.081 oz Body Mass Index (BMI) 31.8 Intake and Output for Last 24 Hours 01/01/20 01/02/20 01/03/20 23:59 23:59 23:59 Output Total 400 / 400 Balance -400 / -400 Laboratory Results 01/03/20 04:33: WBC 5.3, RBC 3.77 L, Hgb 12.3, Hct 37.4, MCV 99.2 H, MCH 32.6 H, MCHC 32.9, RDW Std Deviation 52.9 H, RDW Coeff of Marylu 14.6, Plt Count 166, MPV 9.7 01/03/20 04:33: Sodium 138, Potassium 4.1, Chloride 104, Carbon Dioxide 26.0, Anion Gap 8, BUN 17, Creatinine 0.84, Est GFR (MDRD) Af Amer 88, Est GFR (MDRD) Non-Af 73, BUN/Creatinine Ratio 20.2 H, Glucose 97, Calcium 8.8 01/03/20 04:33: Magnesium 1.9 01/03/20 04:33: Total Creatine Kinase 145, C-React Prot Ext Range 10.60 H 01/03/20 04:33: Vitamin B12 404, Vitamin D 25-Hydroxy 45.7 01/03/20 04:33: Folate 39.70 01/03/20 15:40: COVID-19 (JANET) Pending Diagnostic Data Tibia/Fibula X-Ray 01/03/20 05:00 IMPRESSION: No demonstrated fracture, dislocation, or destructive osseous lesion. No demonstrated radiodense foreign body. Electronically Signed: Sathya Long MD at 5:28 EDT , Service support , Brain CT 01/03/20 05:57 IMPRESSION: Chronic involutional changes of the brain. Status post right craniotomy. Areas of underlying encephalomalacia and parenchymal calcification, stable in appearance. No demonstrated acute intracranial process. Electronically Signed: Sathya Long MD at 6:56 EDT , Service support , Cervical Spine CT 01/03/20 05:58 IMPRESSION: Multilevel degenerative changes, as described above. No demonstrated fracture or subluxation. Electronically Signed: Sathya Long MD at 7:10 EDT , Service support , Abdomen/Pelvis CT 01/03/20 06:01 IMPRESSION: Multiple lumbar compression fractures. Multiple old fractures of left lumbar transverse processes. Prominent cortical scarring of the left kidney. No demonstrated urinary calculi or hydronephrosis. Umbilical hernia contains fat, but no bowel. No evidence for acute pathology in the abdomen or pelvis. No evidence for significant acute internal injury. Electronically Signed: Sathya Long MD at 6:52 EDT , Service support , Chest CT 01/03/20 06:01 IMPRESSION: Old right rib fractures. Compression fractures of lower thoracic and upper lumbar vertebra appear to be chronic. No evidence for acute cardiopulmonary pathology. No evidence for significant acute internal injury. Electronically Signed: Sathya Long MD at 7:04 EDT , Service support , Current Medications Acetaminophen (Tylenol) 650 mg PO Q6H PRN PRN PRN Reason: Pain Score 1-10/Temp > 100.7 F Albuterol Sulfate (Ventolin Aerosols) 2.5 mg INHALATION Q2H PRN PRN PRN Reason: Shortness of Breath/Wheezing Bisacodyl (Dulcolax) 10 mg PO DAILY PRN PRN Reason: Constipation [facility]Guido [facility] Admin: 01/03/20 11:21 Dose: 500 mg Documented by: Cholecalciferol (Vitamin D (25mcg)) 5,000 unit PO DAILY [facility] Last Admin: 01/03/20 11:14 Dose: 5,000 unit Documented by: Cyanocobalamin (Vitamin B12) 500 mcg PO DAILY@0800 [facility] Last Admin: 01/03/20 12:50 Dose: 500 mcg Documented by: [facility]amethasone ([facility]adron) [facility] Last Admin: 01/03/20 11:14 Dose: 3 mg Documented by: Dextrose (D50w Syringe) 0 gm IV X1 PRN; Protocol PRN Reason: Hypoglycemia Enoxaparin Sodium (Lovenox) 40 mg SC DAILY [facility] Last Admin: 01/03/20 11:13 Dose: 40 mg Documented by: Famotidine (Pepcid) 20 mg PO BID [facility] Last Admin: 01/03/20 11:13 Dose: 20 mg Documented by: Glucagon () 1 mg IM .X1 PRN PRN Reason: Hypoglycemia Sodium Chloride () 1,000 mls @ 75 mls/hr IV .[id number] [facility] Stop: 01/03/20 22:24 Last Admin: 01/03/20 09:56 Dose: 75 mls/hr Documented by: Levetiracetam (Keppra Tablet) 750 mg PO BID [facility] Last Admin: 01/03/20 11:13 Dose: 750 mg Documented by: Morphine Sulfate () 2 mg IV Q3H PRN PRN PRN Reason: Pain Score 6-10/10 Nitroglycerin (Nitrostat) 0.4 mg SUBLINGUAL Q5M PRN PRN Reason: CARDIAC/CHEST PAIN Nutritional Formula (Lactose Free) (Ensure Enlive) 120 ml PO 4X/DAY [facility] Last Admin: 01/03/20 11:22 Dose: 120 ml Documented by: Ondansetron HCl (Zofran) 4 mg IV Q8H PRN PRN PRN Reason: NAUSEA/VOMITING Oxycodone HCl (Oxyir) 5 mg PO Q4H PRN PRN PRN Reason: Pain Score 4-5/10 Polyethylene Glycol (Miralax) 17 gm PO DAILY PRN PRN Reason: Constipation Prochlorperazine Edisylate (Compazine Iv) 5 mg IV Q4H PRN PRN PRN Reason: Breakthrough nausea/vomiting Senna/Docusate Sodium (Senokot-S, Riddhi-Colace) 2 tablet PO BID PRN PRN PRN Reason: Constipation Sertraline HCl (Zoloft) 100 mg PO DAILY [facility] Last Admin: 01/03/20 11:12 Dose: 100 mg Documented by: Sodium Chloride () 10 - 40 ml IV UD PRN PRN Reason: SALINE FLUSH Last Admin: 01/03/20 09:56 Dose: 10 ml Documented by: Trazodone HCl (Desyrel) 50 mg PO QHS [facility] Assessment/Plan All Active Problems (Last Updated 12/16/17 @ 17:[address] Sari Hawk, DO) Traumatic hematoma of left lower leg (Acute) Ulcer of upper extremity (Acute) Ulcer of upper extremity, limited to breakdown of skin (Acute) Skin tear of left lower leg without complication (Acute) Frequent falls (Acute) Other complications of skin graft (allograft) (autograft) (Acute) Failed skin graft (Acute) Wound, open, lower limb with complication (Acute) Infected open wound (Acute) MRSA (methicillin resistant staph aureus) culture positive (Acute) 1. Traumatic hematoma left anterolateral leg. 2. Chronic falls at home. 3. Smoker. 4. Glioblastoma multiforme status post craniectomy and chemoradiation on long-term dexamethasone and Keppra. Patient has a traumatic hematoma left anterolateral leg with some compromised skin. Recommend operative intervention with surgical preparation left anterolateral leg with incision and drainage and evacuation and excisional debridement traumatic hematoma. Will send tissue to Pathology for analysis to rule out carcinoma and to Microbiology for culture. A positive culture will necessitate antibiotic therapy. Will treat perioperatively with Ancef. Will leave the wound open and proceed with postop wound care with the V[facility]. After discharge, she will [facility]. If a plateau develops during the healing process, will proceed with delayed closure with skin grafting. Surgery will be done tomorrow under local anesthesia and IV sedation. She has had the hematoma for a month and there is risk of infection. With her current immunocompromised medical status, an infection could be life threatening. Patient was informed of the risks and complications of the procedure including alternatives to surgery. These were discussed with the patient personally. Patient voices understanding and wishes to proceed. Encouraged patient to stop smoking as it may have deleterious effects on wound healing. Anticipate increased metabolic demands from the injury and from the surgery. Will check a Prealbumin and encourage nutritional supplementation with protein to help the healing process. Procedure Criteria Procedure Type: Essential Procedure Essential: Yes Criteria Statement: On 10/02/2019 the [facility] of Health ([facility]) Public Order signed by [facility] Director Sofiya Blanco M.D., regarding the Management of Non-Essential Surgeries and Procedures for the purpose of preserving Personal Protective Equipment (PPE) and critical hospital capacity and resources within [place] went into effect as of 10/03/2019 at 5:00PM. According to the [facility] Public Order: This action will remain in full force and effect until the State of Emergency declared by the Governor no longer exists or the Director of the [facility] rescinds or modifies this Order. This [facility] order stated all non-essential or elective surgeries and procedures that utilize PPE should be delayed unless there is undue risk to the current or future health of a patient. After reviewing the aforementioned [facility] Public Order and the patient's clinical case, I have determined that the scheduled procedure meets the criteria to go forward. Risk to Patient if Procedure Delayed: Risk of rapidly worsening to severe symptoms if delayed - She has had the traumatic hematoma for a month and there is risk of infection. With her current immunocompromised medical status, an infection could be life threatening. Inpatient E&M: 61330 Init Hosp L2 - ICD-10- S80.12xA, R29.6, F17.200, C71.9
[2020-01-03 23:15] VITALS: BP 130/76; PULSE 66; RESP 18; TEMP 36.7; O2SAT 94
[2020-01-03] MEDS: traZODone 50 MG Tablet PO (23:55)
[2020-01-04] VITALS (13 sets, daily range): BP systolic 98–139; BP diastolic 69–97; PULSE 56–67; RESP 16–20; TEMP 36.1–36.9; O2SAT 92–98; BMI 31.8
[2020-01-04] MEDS: 0.9% Saline Lock 10 ML Syringe IV ×3 (04:15→20:24)
--- NOTE | 2020-01-04 05:55 | EKG12_ITS ---
Test Reason : AM EKG Blood Pressure : / mmHG Vent. Rate : 057 BPM Atrial Rate : 057 BPM P-R Int : 144 ms QRS Dur : 098 ms QT Int : 476 ms P-R-T Axes : 076 061 081 degrees QTc Int : 463 ms Sinus bradycardia Otherwise normal ECG When compared with ECG of 12-MAY-2019 20:31, No significant change was found Confirmed by DONNA BAILEY, RADHA ([id number]), market editor ESTUARDO ROSA ([id number]) on 01/08/2020 11:02:52 AM Referred By: JENNIE Confirmed By:RADHA THOMPSON MD
[2020-01-04 06:36] LABS: Absolute Lymphocyte Count 0.73 X10^3/uL (0.83-4.51); Absolute Neutrophil Count 4.2 X10^3/uL (2.0-7.7); Basophil# 0.04 X10^3/uL; Basophil% 0.7 % (0-1); Eosinophil# 0.06 X10^3/uL; Eosinophils% 1.1 % (0-5); Hematocrit 35.9 % (37-47); Hemoglobin 11.5 g/dL (12.0-15.0); Lymphocyte # 0.73 X10^3/ul (4.0); Lymphocyte % 12.9 % (19-41); Mean Corpuscular Hgb 32.3 pg (27.0-32.0); Mean Corpuscular Volume 100.8 fL (81-99); Mean Platelet Vol. 9.6 fl (6.2-12.0); Monocyte# 0.57 X10^3/uL; Monocyte% 10.1 % (0-10); NRBC Flagged by Analyzer 0 % (0-5); Neutrophil # 4.15 X10^3/uL (2.7-7.7); Neutrophil % 73.6 % (47-70); Platelet Count 168 K/mm3 (150-450); RBC Distribution Width CV 14.6 % (11.6-14.6); RBC Distribution Width SD 52.7 fl (35.1-43.9); Red Blood Count 3.56 M/mm3 (4.2-5.4); White Blood Count 5.6 K/mm3 (4.4-11.0)
[2020-01-04 07:00] LABS: AST(SGOT) 19 U/L (15-37); Alanine Aminotransfer ALT/SGPT 33 U/L (13-56); Albumin, Serum 3.2 g/dL (3.2-5.0); Alkaline Phosphatase 77 U/L (45-117); Anion Gap 7 (5-15); BUN 12 mg/dL (7-18); Calcium,Total 8.9 mg/dL (8.5-10.1); Chloride 106 mmol/L (98-107); Creatinine, Serum 0.71 mg/dL (0.55-1.02); EST Glomerular Filtration Rate 89 mL/min (>60); Est Glom Filt Rate - Afr Amer 108 mL/min (>60); Estimated Creatinine Clearance 83.94 ml/min; Glucose 95 mg/dL (74-106); Phosphorus 2.6 mg/dL (2.5-4.9); Potassium 3.5 mmol/L (3.5-5.1); Protein, Total 6.2 g/dL (6.4-8.2); Sodium Level 140 mmol/L (136-145); Thyroid Stim Hormone (TSH) 0.52 uIU/mL (0.358-3.74)
[2020-01-04] MEDS: Famotidine 20 MG Tablet PO (08:41)
[2020-01-04] MEDS: levETIRAcetam 750 MG Tablet PO (08:43)
[2020-01-04] MEDS: Calcium (Elemental) 500 MG Tablet PO (08:43)
[2020-01-04] MEDS: Sertraline 100 MG Tablet PO (08:43)
[2020-01-04] MEDS: Cyanocobalamin 500 MCG Tablet PO (08:48)
--- NOTE | 2020-01-04 08:50 | NURSING ---
Aware of NPO 2hrs prior to surgery, clr liquids 6hrs prior to surgery. Pt was given regular ensure but pt not supposed to go to surgery until 1500 this afternoon. Will be clear liquids from now on.
--- NOTE | 2020-01-04 12:05 | PN_ITS ---
Reason for Visit: Fall. Left leg ulcer with hematoma. Patient also has intermittent confusion and worsening of memory at home. Objective: Seen and examined. Patient is not confused, alert and awake oriented x3. Answers questions appropriately. I talked to the patient's daughter. At home, she has intermittent confusion and emotional burst with anger sometimes. On exam General: Alert, Oriented x3, Cooperative HEENT: Atraumatic, PERRLA, EOMI, Normocephalic Oral: No Gingival or Mucosal Lesions/ Ulcerations, moist mucosa Neck: Supple, No JVD, Negative Carotid Bruits Lungs: Clear to auscultation, Normal air movement, No rhonchi, No wheeze, No rales Cardiovascular: Regular rate, Regular Rhythm, Normal S1, Normal S2, No murmurs Abdomen: Bowel Sounds Present, Soft, Non Tender, Non-Distended Extremities: No edema, Capillary Refill Less than 3 Seconds Skin: Nonhealing ulcer over left leg with dried up/organized hematoma. Skin graft changes in both lower legs. Generalized skin atrophy. Skin Tear Musculoskeletal: No Tenderness to Palpation of Joints or Extremities, Arthritic Changes Neurological: Cranial nerves II-XII grossly intact, Deep Tendon Reflexes 2+/4 and Symmetrical, Neuro grossly intact Psych/Mental Status: Normal Affect, Appropriate Vitals/I&O's: Vital Signs Temp Pulse Resp BP Pulse Ox 97.7 F L 63 18 129/73 H 92 01/04/20 08:33 01/04/20 08:33 01/04/20 08:33 01/04/20 08:33 01/04/20 10:48 Oxygen Delivery Method Room Air Weight: 209 lb 14.081 oz Body Mass Index (BMI) 31.8 Intake and Output for Last 24 Hours 01/02/20 01/03/20 01/04/20 23:59 23:59 23:59 Intake Total 1680 / 2380 700 / 700 Output Total 400 / 800 750 / 750 Balance 1280 / 1580 -50 / -50 Laboratory Results 01/03/20 15:40: COVID-19 (JANET) Not Detected 01/04/20 05:55: Sodium 140, Potassium 3.5, Chloride 106, Carbon Dioxide 27.0, Anion Gap 7, BUN 12, Creatinine 0.71, Estim Creat Clear Calc 83.94, Est GFR (MDRD) Af Amer 108, Est GFR (MDRD) Non-Af 89, BUN/Creatinine Ratio 17.0, Glucose 95, Calcium 8.9, Phosphorus 2.6, Total Bilirubin 0.30, Direct Bilirubin 0.10, AST 19, ALT 33, Alkaline Phosphatase 77, Total Protein 6.2 L, Albumin 3.2, Globulin 3.0, TSH 0.52 01/04/20 05:55: WBC 5.6, RBC 3.56 L, Hgb 11.5 L, Hct 35.9 L, MCV 100.8 H, MCH 32.3 H, MCHC 32.0, RDW Std Deviation 52.7 H, RDW Coeff of Marylu 14.6, Plt Count 168, MPV 9.6, Immature Gran % (Auto) 1.600 H, Neut % (Auto) 73.6 H, Lymph % (Auto) 12.9 L, [place] % (Auto) 10.1 H, Eos % (Auto) 1.1, Baso % (Auto) 0.7, Absolute Neuts (auto) 4.2, Absolute Lymphs (auto) 0.73 L, Nucleated RBC % 0 Current Medications Acetaminophen (Tylenol) 650 mg PO Q6H PRN PRN PRN Reason: Pain Score 1-10/Temp > 100.7 F Albuterol Sulfate (Ventolin Aerosols) 2.5 mg INHALATION Q2H PRN PRN PRN Reason: Shortness of Breath/Wheezing Bisacodyl (Dulcolax) 10 mg PO DAILY PRN PRN Reason: Constipation [facility] Carbon[facility] ([facility]Guido 500) [facility] Admin: 01/04/20 08:43 Dose: 500 mg Documented by: Cholecalciferol (Vitamin D (25mcg)) 5,000 unit PO DAILY [facility] Last Admin: 01/04/20 08:41 Dose: 5,000 unit Documented by: Cyanocobalamin (Vitamin B12) 500 mcg PO DAILY@0800 [facility] Last Admin: 01/04/20 08:48 Dose: 500 mcg Documented by: Dexamethasone (Decadron) [facility] Last Admin: 01/04/20 08:40 Dose: 3 mg Documented by: Dextrose (D50w Syringe) 0 gm IV X1 PRN; Protocol PRN Reason: Hypoglycemia Enoxaparin Sodium (Lovenox) 40 mg SC DAILY [facility] Last Admin: 01/04/20 08:43 Dose: Not Given Documented by: Famotidine (Pepcid) 20 mg PO BID [facility] Last Admin: 01/04/20 08:41 Dose: 20 mg Documented by: Glucagon () 1 mg IM .X1 PRN PRN Reason: Hypoglycemia Levetiracetam (Keppra Tablet) 750 mg PO BID [facility] Last Admin: 01/04/20 08:43 Dose: 750 mg Documented by: Morphine Sulfate () 2 mg IV Q3H PRN PRN PRN Reason: Pain Score 6-10/10 Nitroglycerin (Nitrostat) 0.4 mg SUBLINGUAL Q5M PRN PRN Reason: CARDIAC/CHEST PAIN Nutritional Formula (Rodger - [place] Flavor) [facility] Ondansetron HCl (Zofran) 4 mg IV Q8H PRN PRN PRN Reason: NAUSEA/VOMITING Oxycodone HCl (Oxyir) 5 mg PO Q4H PRN PRN PRN Reason: Pain Score 4-5/10 Polyethylene Glycol (Miralax) 17 gm PO DAILY PRN PRN Reason: Constipation Prochlorperazine Edisylate (Compazine Iv) 5 mg IV Q4H PRN PRN PRN Reason: Breakthrough nausea/vomiting Quetiapine Fumarate (Seroquel) 25 mg PO QHS [facility] Senna/Docusate Sodium (Senokot-S, Riddhi-Colace) 2 tablet PO BID PRN PRN PRN Reason: Constipation Sertraline HCl (Zoloft) 100 mg PO DAILY [facility] Last Admin: 01/04/20 08:43 Dose: 100 mg Documented by: Sodium Chloride () 10 - 40 ml IV UD PRN PRN Reason: SALINE FLUSH Last Admin: 01/04/20 06:51 Dose: 10 ml Documented by: STROKE Vital Signs/Narrative: Vital Signs Temp Pulse Resp BP Pulse Ox 01/04/20 10:48 92 01/04/20 08:33 97.7 F L 63 18 129/73 H 96 Medical Necessity - Tobacco Use Smoking Status: Former smoker - Quit a month ago. Smoked since age of 12 a pack per day, about 47 pack years of smoking Assessment/Plan All Active Problems (Last Updated 12/16/17 @ 17:[address] Sari Hawk DO) Ulcer of upper extremity (Acute) Ulcer of upper extremity, limited to breakdown of skin (Acute) Skin tear of left lower leg without complication (Acute) Frequent falls (Acute) Other complications of skin graft (allograft) (autograft) (Acute) Failed skin graft (Acute) Wound, open, lower limb with complication (Acute) Infected open wound (Acute) MRSA (methicillin resistant staph aureus) culture positive (Acute) The patient is a 59 year old F with history of glioblastoma brain status post craniotomy, chemotherapy on long-term dexamethasone came to ED with fall and soft tissue injury of right side of body. In ED, she had multiple x-rays and CT scan which did not show acute change or fracture. CBC and BMP is grossly in normal range 1. recurrent fall, weakness of lower extremity probably secondary to prolonged steroid and debility: Patient is being admitted on [facility] floor. CK and CRP ordered. PT and OT. Vitamin B12, vitamin D 25, folic acid and TSH ordered. Patient walks on Rollator. 01/03: Vitamin D, TSH and folate is normal. B12 404 and started on cyanocobalamin 500 mcg oral daily. PT and OT. 2. Chronic nonhealing ulcer of left lower extremity and deep scarring of both lower extremity with skin graft: 01/03: Patient is scheduled for drainage of left leg hematoma ulcer by Dr. Moya afternoon today. Wound dressing afterwards. 3. Glioblastoma multi-forming status post craniectomy and chemoradiation on long-term dexamethasone and Keppra: Patient is on dexamethasone 3 mg daily and Keppra 750 mg p.o. twice daily and continued. She follows Dr. Arciniega in [facility] [place]. 01/03: I talked to the patient's daughter, Sunday [phone] and she raised the concern for slowly progressive memory issues, intermittent burst of anger and emotions. At home she is on sertraline 150 mg nightly and Seroquel 25 mg at bedtime daily. 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 Was advised to follow-up with Dr. Esparza in [facility] I also updated her clinical status that she is going for surgery for left leg hematoma ulcer drainage, PT and OT. 4. Chronic smoker, quit a month ago: Patient was encouraged to maintain remission. 5. Chronic pain, neuropathic pain, GERD, seizure, and previous failed skin graft: Multiple comorbidities complicates the present care and expect difficult and delay recovery 6. DVT prophylaxis: Lovenox 40 minutes subcu daily. Discontinue if platelet count drops less than 50,000 or hemoglobin less than 8 g% Total time of the visit including total time spent in counseling or coordination of care, (more than 50% of the total time, spent in obtaining medical information from nurses and other ancillary care providers), , review of labs and imaging is 30 minutes Living will/advanced directive/end of life care: Patient does have living will or advanced directive. Her daughter, Ms. Chanelle saavedra is power of environmental attorney. After discussion of procedures involved with full code, DNR CC arrest and DNR CC, the patient opted for DNR-CC Arrest Patient does not want artificial life support including intubation, tube feed, ventilator and/chest compression, central venous catheter, vasopressor and DC shock during terminal or irreversible condition. DNR CC arrest. Clinical Impression(s) from Imaging Studies Left tibia/Fibula X-Ray 01/03/20 05:00 IMPRESSION: No demonstrated fracture, dislocation, or destructive osseous lesion. No demonstrated radiodense foreign body. Electronically Signed: Sathya Long MD at 5:28 EDT , Service support , Brain CT 01/03/20 05:57 IMPRESSION: Chronic involutional changes of the brain. Status post right craniotomy. Areas of underlying encephalomalacia and parenchymal calcification, stable in appearance. No demonstrated acute intracranial process. Cervical Spine CT 01/03/20 05:58 IMPRESSION: Multilevel degenerative changes, as described above. No demonstrated fracture or subluxation. Abdomen/Pelvis CT 01/03/20 06:01 IMPRESSION: Multiple lumbar compression fractures. Multiple old fractures of left lumbar transverse processes. Prominent cortical scarring of the left kidney. No demonstrated urinary calculi or hydronephrosis. Umbilical hernia contains fat, but no bowel. No evidence for acute pathology in the abdomen or pelvis. No evidence for significant acute internal injury. Chest CT 01/03/20 06:01 IMPRESSION: Old right rib fractures. Compression fractures of lower thoracic and upper lumbar vertebra appear to be chronic. No evidence for acute cardiopulmonary pathology. No evidence for significant acute internal injury. Inpatient E&M: 09085 Subs Hosp L2
--- NOTE | 2020-01-04 15:15 | TISS_PTH ---
PATIENT: GEORGINA SKINNER LOC: MS3 U#:[id number] AGE/SX: 59/F ROOM: MS305 RE01/03/[address]: Dr. Glynn Mora MD : 1960 BED: 1 DIS: 01/07/2020 SPEC #: [id number] RECD: 01/04/20 17:03 STATUS: NANCY GANESH #: [id number] MARRY: 01/04/20 15:[address]: Kei Moya DEPT: SURGICAL PATHOLOGY RECD BY: Stanley Shahid ENTERED: 01/07/20 09:40 SP TYPE: Tissue Bx OTHR DR: DO Dr. Kei Quesada MD Dr. Nicholas F Kotsonis, MD Dr. Prakash Chand, MD Tissues: Skin of leg, NOS Procedures: Surgery Specimen Level III Comments: @ Ordering doctor for TAN edited from to @ by GAUTAM at 01/08/20 0851 @ Submitting doctor edited from to @ by RGOOD at 01/08/20 0851 HEADER OPERATION: I & D left leg hematoma PRE-OP DIAGNOSIS: Left anterior leg hematoma TISSUE SUBMITTED: Left leg soft tissue MICROSCOPIC DIAGNOSIS Left leg soft tissue: Pieces of skin with underlying tissue with focal ulceration, acute and chronic inflammation and granulation tissue reaction and extensive hemorrhage, consistent with hematoma. SHANEKA:nathan 01/08/20 MICROSCOPIC DESCRIPTION Slides are reviewed. GROSS DESCRIPTION Received in fixative is one container labeled with the patient's name and designated left leg soft tissue. The specimen consists of a piece of skin with underlying tissue measuring 5.5 x 5.5 cm and up to 1 cm in thickness. The skin surface shows a focal area of hemorrhage. Sections reveal hemorrhagic cut surfaces. Computer Engineering Technologist sections are submitted in two cassettes. / SHANEKA:nathan 01/07/20 TC:5 CPT: 93480
--- NOTE | 2020-01-04 16:40 | PCM.OPRPT ---
Report of Operation Date of Procedure: 01/04/20 Pre-Operative Diagnosis: 1. Traumatic hematoma left anterolateral leg. 2. Chronic falls at home. 3. Smoker. 4. Glioblastoma multiforme status post craniectomy and chemoradiation on long-term dexamethasone and Keppra. Post-Operative Diagnosis: Same. Surgery/Procedure Performed:: Surgical preparation left anterolateral leg with incision and drainage and evacuation and excisional debridement traumatic hematoma (33 cm2). Description of Surgical Findings:: The patient is a 59 year old F with history of glioblastoma brain status post craniotomy, chemotherapy on long-term dexamethasone came to ED because of recent falls. Patient is known to me from previous falls that resulted in chronic ulcers that needed debridement and wound care and antibiotics and eventual skin grafting. She was admitted now for falls and she sustained a traumatic hematoma left anterolateral leg. She complains of pain in the left leg. She states she sustained the hematoma about a month ago. She was concerned because of some skin discoloration. X-ray showed no fracture. I was asked to evaluate this patient for surgical options for treatment. Patient was informed of the risks and complications of the procedure including alternatives to surgery. These were discussed with the patient personally. Patient voices understanding and wishes to proceed. Encouraged patient to stop smoking as it may have deleterious effects on wound healing. Size of defect left anterolateral leg - 6 x 5.5 x 1 cm. manager of community relations: None Type of Anesthesia:: Local MAC - xylocaine with epinephrine and IV sedation. Specimen's removed: Traumatic hematoma left anterolateral leg to Pathology and Microbiology. Drains: None. Estimated Blood Loss (mL): 25 ml. Description of Procedure: Patient was taken to OR in supine position and was given IV sedation. The left leg was prepped and draped in the usual fashion. SCD's were placed for DVT prophylaxis. Perioperative antibiotics were given intravenously. I performed the surgery with an N95 mask and proper eye protection. The left leg hematoma was infiltrated with xylocaine and epinephrine. After waiting 5 minutes for the anesthetic to take effect, I proceeded with an incision and drainage of the traumatic hematoma. No pus was seen. Some fat necrosis was noted. The hematoma was somewhat liquefied and somewhat congealed and it was evacuated. The fat necrosis and the bruised skin was excised and debrided. The debridement extended down to the muscular fascia. The muscular fascia was inflamed and looked viable. The tissue was sent to Pathology for analysis to rule out carcinoma and to Microbiology for culture. A positive culture will necessitate antibiotic therapy. The size of the wound left anterolateral leg after the incision and drainage and evacuation and excisional debridement traumatic hematoma was 6 x 5.5 x 1 cm or 33 cm2. I then dressed the hematoma wound with Mepitel nonadherent dressing followed by Kerlix gauze with Betadine followed by dry Kerlix gauze and a compression sumeet wrap. Patient tolerated the procedure well and was sent to PACU in satisfactory condition. Patient will be sent upstairs for continued postop care. The VAC will be applied tomorrow. After discharge [facility]. If there is a plateau in the healing process, can proceed with delayed closure with skin grafting. Grafts/Implants Used: None. - Complications None. - Admit VTE Documentation VTE Present on Admission: No VTE Mechan Device Prophylaxis: SCD's VTE Pharm Prophylaxis ordered?: Yes Surgery Charges CPT - 62058 ICD-10 - S81.802A, S80.12xA, R29.6, F17.200, C71.9 53754 S80.12xA, S81.802A, R29.6, F17.200, C71.9
--- NOTE | 2020-01-04 17:33 | NURSING ---
Arrived back to floor at this time. Had a mac local.
--- NOTE | 2020-01-04 18:10 | NURSING ---
given purse per pt request. Looking threw it pt states her money is missing and cell phone is as well. This nurse called daughter Chanelle, Chanelle said the cell phone was recently turned off and now she has a house phone. Reminded the pt this. then she states oh I dont know if I'm missing money now. Chanelle said she doesnt think she had money in her purse but it could be possible.
[2020-01-04] MEDS: 0.9% Normal Saline 1,000 ML 60 ML IV (18:19)
--- NOTE | 2020-01-04 18:47 | NURSING ---
Called to this room by Danni EUGENIO that pt is choking. Pt color is archibald/blue coughing consistently. Unable to talk. Coughing and brought up very small amt of eaten/chewed up burger. sp02 was 76% at first but back up to 96-97% once stopped choking. This nurse attempted to suction mouth but there was nothing else in mouth. Lung sounds assessed, wheezy to Lt upper lung otherwise clear. pt not coughing now and able to hold a conversation with her spo2 at 94% on RA. This nurse made pt NPO until speech therapy can see her.
[2020-01-04] MEDS: Morphine 2 MG/ML Syringe IV (20:25)
[2020-01-04] MEDS: Haloperidol Lactate 5 MG/ML Vial 2 MG IM (20:37)
--- NOTE | 2020-01-04 20:55 | NURSING ---
called to pt's room by AMY Guo. pt yelling, kicking/hitting dementia program director viviane. pt repeatedly attempting to get out of bed. c/o pain to her leg. this rn attempted to re orient pt and remind pt that she had surgery on her left leg. medicated pt for reported pain. pt is angry that we are not able to give her anything to eat or drink. educated pt regarding npo status for her safety d/t previous choking at dinner time. pt remains agitated and aggressive towards staff. dementia program director viviane remained at bedside while this rn paged hospitalist.
[2020-01-05 01:53] VITALS: PULSE 61; RESP 18; TEMP 36.6; O2SAT 95
--- NOTE | 2020-01-05 01:54 | NURSING ---
pt repeatedly attempting to get out of bed. assistant merchandiser alina at bedside. pt tearful and agitated. pt repeatedly asking for her dogs and her cell phone. attempted to re orient pt. pt agrees to have vs taken but when bp cuff compressed arm pt became very agitated and yelled take it off attempting to remove cuff herself.
[2020-01-05] MEDS: 0.9% Normal Saline 1,000 ML 60 ML IV (07:09)
[2020-01-05 08:36] VITALS: O2SAT 95
--- NOTE | 2020-01-05 09:11 | NURSING ---
Speech Therapy here and going to see pt.
--- NOTE | 2020-01-05 11:00 | PCM.PN.HOSP ---
Subjective: Sleepy but easily arousable and oriented. Feeling a little bit better. Vitals/I&O's: Vital Signs Temp Pulse Resp BP Pulse Ox 97.8 F 61 18 139/97 H 95 01/05/20 01:53 01/05/20 01:53 01/05/20 01:53 01/04/20 19:47 01/05/20 08:36 Oxygen Delivery Method Room Air Weight: 209 lb 14.081 oz Body Mass Index (BMI) 31.8 Intake and Output for Last 24 Hours 01/03/20 01/04/20 01/05/20 23:59 23:59 23:59 Intake Total 1680 / 2380 940 / 940 770 / 770 Output Total 400 / 800 750 / 750 Balance 1280 / 1580 190 / 190 770 / 770 General: Alert, Oriented x3, Cooperative, No apparent distress HEENT: Atraumatic, PERRLA, EOMI, Normocephalic Oral: Moist Mucosa Neck: Supple, No JVD Lungs: Clear to auscultation, Normal air movement, No rhonchi, No wheeze, No rales Cardiovascular: Regular rate, Regular Rhythm, Normal S1, Normal S2, No murmurs Abdomen: Soft, Non Tender, Non-Distended, No Hepato-splenomegaly Skin: Ulcer/ Wound - Left lower extremity wrapped status post surgical repair Neurological: Neuro grossly intact, Sensory exam intact to light touch and pain Psych/Mental Status: Normal Affect, Appropriate Current Medications Acetaminophen (Tylenol) 650 mg PO Q6H PRN PRN PRN Reason: Pain Score 1-10/Temp > 100.7 F Albuterol Sulfate (Ventolin Aerosols) 2.5 mg INHALATION Q2H PRN PRN PRN Reason: Shortness of Breath/Wheezing Bisacodyl (Dulcolax) 10 mg PO DAILY PRN PRN Reason: Constipation Calcium Carbonate (Os-Guido 500) [facility] Last Admin: 01/04/20 08:43 Dose: 500 mg Documented by: Cholecalciferol (Vitamin D (25mcg)) 5,000 unit PO DAILY [facility] Last Admin: 01/04/20 08:41 Dose: 5,000 unit Documented by: Cyanocobalamin (Vitamin B12) 500 mcg PO DAILY@0800 [facility] Last Admin: 01/04/20 08:48 Dose: 500 mcg Documented by: Dexamethasone (Decadron) [facility] Last Admin: 01/04/20 08:40 Dose: 3 mg Documented by: Dextrose (D50w Syringe) 0 gm IV X1 PRN; Protocol PRN Reason: Hypoglycemia Enoxaparin Sodium (Lovenox) 40 mg SC DAILY [facility] Last Admin: 01/04/20 08:43 Dose: Not Given Documented by: Famotidine (Pepcid) 20 mg PO BID [facility] Last Admin: 01/04/20 22:35 Dose: Not Given Documented by: Glucagon () 1 mg IM .X1 PRN PRN Reason: Hypoglycemia Sodium Chloride () 1,000 mls @ 60 mls/hr IV .[id number] [facility] Last Admin: 01/05/20 07:09 Dose: 60 mls/hr Documented by: Levetiracetam (Keppra Tablet) 750 mg PO BID [facility] Last Admin: 01/04/20 22:34 Dose: Not Given Documented by: Morphine Sulfate () 2 mg IV Q3H PRN PRN PRN Reason: Pain Score 6-10/10 Last Admin: 01/04/20 20:25 Dose: 2 mg Documented by: Nitroglycerin (Nitrostat) 0.4 mg SUBLINGUAL Q5M PRN PRN Reason: CARDIAC/CHEST PAIN Nutritional Formula (Rodger - [place] Flavor) [facility] Last Admin: 01/04/20 17:49 Dose: 1 packet Documented by: Ondansetron HCl (Zofran) 4 mg IV Q8H PRN PRN PRN Reason: NAUSEA/VOMITING Oxycodone HCl (Oxyir) 5 mg PO Q4H PRN PRN PRN Reason: Pain Score 4-5/10 Polyethylene Glycol (Miralax) 17 gm PO DAILY PRN PRN Reason: Constipation Prochlorperazine Edisylate (Compazine Iv) 5 mg IV Q4H PRN PRN PRN Reason: Breakthrough nausea/vomiting Quetiapine Fumarate (Seroquel) 25 mg PO QHS [facility] Last Admin: 01/04/20 22:35 Dose: Not Given Documented by: Senna/Docusate Sodium (Senokot-S, Riddhi-Colace) 2 tablet PO BID PRN PRN PRN Reason: Constipation Sertraline HCl (Zoloft) 100 mg PO DAILY [facility] Last Admin: 01/04/20 08:43 Dose: 100 mg Documented by: Sodium Chloride () 10 - 40 ml IV UD PRN PRN Reason: SALINE FLUSH Last Admin: 01/04/20 20:24 Dose: 10 ml Documented by: STROKE Vital Signs/Narrative: Vital Signs Pulse Ox 01/05/20 08:36 95 Medical Necessity - Tobacco Use Smoking Status: Former smoker - Quit a month ago. Smoked since age of 12 a pack per day, about 47 pack years of smoking Assessment/Plan All Active Problems (Last Updated 12/16/17 @ 17:[address] Sari Hawk, DO) Ulcer of upper extremity (Acute) Ulcer of upper extremity, limited to breakdown of skin (Acute) Skin tear of left lower leg without complication (Acute) Frequent falls (Acute) Other complications of skin graft (allograft) (autograft) (Acute) Failed skin graft (Acute) Wound, open, lower limb with complication (Acute) Infected open wound (Acute) MRSA (methicillin resistant staph aureus) culture positive (Acute) 1. Recurrent falls with weakness to her lower extremities, inability to complete ADLs/slowly progressing memory issues/seizure disorder -She is status post craniectomy and chemoradiation for a glioblastoma -After surgery she has been on long-term dexamethasone and Keppra -She is also had changes in her mood with intermittent bursts of anger and volatile emotions at home, she is therefore on 150 mg of Zoloft as well as Seroquel 25 mg at bedtime, she will need to follow-up with [facility] where she had a craniectomy -Continue with PT/OT -Case management to evaluate possible placement, COVID test is negative 2. 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 GERD -Stable -Continue with Pepcid DVT: Lovenox Inpatient E&M: 97073 Subs Hosp L2
[2020-01-05 11:01] VITALS: BP 125/62; PULSE 64; RESP 16; TEMP 36.7; O2SAT 95
[2020-01-05] MEDS: Sertraline 100 MG Tablet PO (11:07)
[2020-01-05] MEDS: Famotidine 20 MG Tablet PO ×2 (11:09→21:23)
[2020-01-05] MEDS: Cyanocobalamin 500 MCG Tablet PO (11:10)
[2020-01-05] MEDS: Enoxaparin 40 MG/0.4 ML Syringe SC (11:10)
[2020-01-05] MEDS: Calcium (Elemental) 500 MG Tablet PO (11:11)
[2020-01-05] MEDS: levETIRAcetam 750 MG Tablet PO ×2 (11:11→21:23)
--- NOTE | 2020-01-05 15:29 | PN.SURG_ITS ---
Subjective: Postop #1 Complains of some left leg pain. VAC to be applied today. - Physical Exam Vitals/I&O's: Vital Signs Temp Pulse Resp BP Pulse Ox 98.1 F 64 16 125/62 H 95 01/05/20 11:01 01/05/20 11:01 01/05/20 11:01 01/05/20 11:01 01/05/20 11:01 Oxygen Delivery Method Room Air Weight: 209 lb 14.081 oz Body Mass Index (BMI) 31.8 Intake and Output for Last 24 Hours 01/03/20 01/04/20 01/05/20 23:59 23:59 23:59 Intake Total 1680 / 2380 940 / 940 1010 / 1010 Output Total 400 / 800 750 / 750 Balance 1280 / 1580 190 / 190 1010 / 1010 General: Alert, Oriented x3 HEENT: PERRLA, EOMI Oral: Moist Mucosa Neck: Supple Abdomen: Soft, Non-Distended Skin: Ulcer/ Wound - left leg wound stable. No active bleeding seen. VAC to be applied today. Neurological: Cranial nerves II-XII grossly intact Psych/Mental Status: Normal Affect, Appropriate Microbiology Past 72 Hours 01/04/20 16:41 Wound Drainage - Leg Gram Stain - Final 01/04/20 16:41 Wound Drainage - Leg Wound Culture - Preliminary No growth-Final to follow Current Medications Acetaminophen (Tylenol) 650 mg PO Q6H PRN PRN PRN Reason: Pain Score 1-10/Temp > 100.7 F Albuterol Sulfate (Ventolin Aerosols) 2.5 mg INHALATION Q2H PRN PRN PRN Reason: Shortness of Breath/Wheezing Bisacodyl (Dulcolax) 10 mg PO DAILY PRN PRN Reason: Constipation [facility]Guido 500) [facility] Last Admin: 01/05/20 11:11 Dose: 500 mg Documented by: Cholecalciferol (Vitamin D (25mcg)) 5,000 unit PO DAILY [facility] Last Admin: 01/05/20 11:07 Dose: 5,000 unit Documented by: Cyanocobalamin (Vitamin B12) 500 mcg PO DAILY@0800 [facility] Last Admin: 01/05/20 11:10 Dose: 500 mcg Documented by: Dexamethasone [facility]Decadron) [facility] Last Admin: 01/05/20 11:08 Dose: 3 mg Documented by: Dextrose (D50w Syringe) 0 gm IV X1 PRN; Protocol PRN Reason: Hypoglycemia Enoxaparin Sodium (Lovenox) 40 mg SC DAILY [facility] Last Admin: 01/05/20 11:10 Dose: 40 mg Documented by: Famotidine (Pepcid) 20 mg PO BID [facility] Last Admin: 01/05/20 11:09 Dose: 20 mg Documented by: Glucagon () 1 mg IM .X1 PRN PRN Reason: Hypoglycemia Sodium Chloride () 1,000 mls @ 60 mls/hr IV .[id number] [facility] Last Admin: 01/05/20 07:09 Dose: 60 mls/hr Documented by: Cefazolin Sodium () 1 gm in 50 mls @ 100 mls/hr IV Q8 [facility] Levetiracetam (Keppra Tablet) 750 mg PO BID [facility] Last Admin: 01/05/20 11:11 Dose: 750 mg Documented by: Morphine Sulfate () 2 mg IV Q3H PRN PRN PRN Reason: Pain Score 6-10/10 Last Admin: 01/04/20 20:25 Dose: 2 mg Documented by: Nitroglycerin (Nitrostat) 0.4 mg SUBLINGUAL Q5M PRN PRN Reason: CARDIAC/CHEST PAIN Nutritional Formula (Rodger - [place] Flavor) [facility] Last Admin: 01/05/20 11:09 Dose: 1 packet Documented by: Ondansetron HCl (Zofran) 4 mg IV Q8H PRN PRN PRN Reason: NAUSEA/VOMITING Oxycodone HCl (Oxyir) 5 mg PO Q4H PRN PRN PRN Reason: Pain Score 4-5/10 Polyethylene Glycol (Miralax) 17 gm PO DAILY PRN PRN Reason: Constipation Prochlorperazine Edisylate (Compazine Iv) 5 mg IV Q4H PRN PRN PRN Reason: Breakthrough nausea/vomiting Quetiapine Fumarate (Seroquel) 25 mg PO QHS [facility] Last Admin: 01/04/20 22:35 Dose: Not Given Documented by: Senna/Docusate Sodium (Senokot-S, Riddhi-Colace) 2 tablet PO BID PRN PRN PRN Reason: Constipation Sertraline HCl (Zoloft) 100 mg PO DAILY [facility] Last Admin: 01/05/20 11:07 Dose: 100 mg Documented by: Sodium Chloride () 10 - 40 ml IV UD PRN PRN Reason: SALINE FLUSH Last Admin: 01/04/20 20:24 Dose: 10 ml Documented by: Medical Necessity - Tobacco Use Smoking Status: Former smoker - Quit a month ago. Smoked since age of 12 a pack per day, about 47 pack years of smoking Assessment/Plan All Active Problems (Last Updated 12/16/17 @ 17:[address] Sari Hawk, DO) Traumatic hematoma of left lower leg (Acute) Ulcer of upper extremity (Acute) Ulcer of upper extremity, limited to breakdown of skin (Acute) Skin tear of left lower leg without complication (Acute) Frequent falls (Acute) Other complications of skin graft (allograft) (autograft) (Acute) Failed skin graft (Acute) Wound, open, lower limb with complication (Acute) Infected open wound (Acute) MRSA (methicillin resistant staph aureus) culture positive (Acute) 1. Traumatic hematoma left anterolateral leg. 2. Chronic falls at home. 3. Smoker. 4. Glioblastoma multiforme status post craniectomy and chemoradiation on long- term dexamethasone and Keppra. 5. s/p surgical preparation left anterolateral leg with incision and drainage and evacuation and excisional debridement traumatic hematoma (33 cm2). Wound is stable. No active bleeding seen. VAC to be applied today. To be changed three times per week at 150 mmHg continuous suction. Operative culture is negative thus far. Continue Ancef while hospitalized. Anticipate increased metabolic demands from the injury and from the surgery. Will check a Prealbumin and encourage nutritional supplementation with protein to help the healing process. After discharge, she will [facility]. If a plateau develops during the healing process, will proceed with delayed closure with skin grafting. Encouraged patient to stop smoking as it may have deleterious effects on wound healing.
[2020-01-05 15:45] VITALS: BP 106/71; PULSE 78; RESP 18; TEMP 36.9; O2SAT 93
[2020-01-05] MEDS: Cefazolin 1 GM/50 ML BAG IV ×2 (16:04→21:28)
--- NOTE | 2020-01-05 17:18 | NURSING ---
Dr. Anderson is aware of choking episode that happened at shift changed. Pt does not have temp and lungs remain clr. Dr. Anderson is aware of that as well.
[2020-01-05] MEDS: QUEtiapine 25 MG Tablet PO (21:23)
[2020-01-05 21:30] VITALS: BP 136/71; PULSE 65; RESP 18; TEMP 36.8; O2SAT 94
[2020-01-05 21:40] VITALS: PULSE 65; RESP 18; O2SAT 94
[2020-01-06] MEDS: 0.9% Normal Saline 1,000 ML 60 ML IV ×2 (00:21→17:50)
[2020-01-06 03:50] VITALS: BP 130/85; PULSE 56; RESP 18; TEMP 36.6; O2SAT 94
[2020-01-06 06:00] LABS: Absolute Lymphocyte Count 0.74 X10^3/uL (0.83-4.51); Absolute Neutrophil Count 3.8 X10^3/uL (2.0-7.7); Basophil# 0.03 X10^3/uL; Basophil% 0.6 % (0-1); Eosinophil# 0.04 X10^3/uL; Eosinophils% 0.8 % (0-5); Hemoglobin 11.8 g/dL (12.0-15.0); Lymphocyte # 0.74 X10^3/ul (4.0); Lymphocyte % 14.5 % (19-41); Mean Corp Hgb Conc 31.9 g/dL (32-36); Mean Corpuscular Hgb 32.5 pg (27.0-32.0); Mean Corpuscular Volume 101.9 fL (81-99); Mean Platelet Vol. 9.4 fl (6.2-12.0); Monocyte# 0.43 X10^3/uL; Monocyte% 8.4 % (0-10); NRBC Flagged by Analyzer 0 % (0-5); Neutrophil # 3.77 X10^3/uL (2.7-7.7); Neutrophil % 73.7 % (47-70); Platelet Count 164 K/mm3 (150-450); RBC Distribution Width CV 14.9 % (11.6-14.6); RBC Distribution Width SD 55.1 fl (35.1-43.9); Red Blood Count 3.63 M/mm3 (4.2-5.4); White Blood Count 5.1 K/mm3 (4.4-11.0)
[2020-01-06] MEDS: Cefazolin 1 GM/50 ML BAG IV ×3 (06:20→21:15)
[2020-01-06 07:06] LABS: Anion Gap 5 (5-15); BUN 16 mg/dL (7-18); BUN/Creat Ratio 20.9 RATIO (10-20); Calcium,Total 8.7 mg/dL (8.5-10.1); Chloride 108 mmol/L (98-107); Creatinine, Serum 0.77 mg/dL (0.55-1.02); EST Glomerular Filtration Rate 81 mL/min (>60); Est Glom Filt Rate - Afr Amer 98 mL/min (>60); Glucose 93 mg/dL (74-106); Potassium 3.7 mmol/L (3.5-5.1); Prealbumin 19.6 mg/dL (20.0-40.0); Sodium Level 139 mmol/L (136-145)
[2020-01-06 07:34] VITALS: O2SAT 94
[2020-01-06] MEDS: Cyanocobalamin 500 MCG Tablet PO (09:06)
[2020-01-06] MEDS: Famotidine 20 MG Tablet PO ×2 (09:06→20:03)
[2020-01-06] MEDS: Calcium (Elemental) 500 MG Tablet PO (09:06)
[2020-01-06] MEDS: levETIRAcetam 750 MG Tablet PO ×2 (09:07→20:02)
[2020-01-06] MEDS: Enoxaparin 40 MG/0.4 ML Syringe SC (09:07)
[2020-01-06] MEDS: Sertraline 100 MG Tablet PO (09:07)
--- NOTE | 2020-01-06 09:25 | PCM.PN.HOSP ---
Subjective: Sitting up and eating breakfast today. Says that she feels well. Vitals/I&O's: Vital Signs Temp Pulse Resp BP Pulse Ox 97.9 F 56 L 18 130/85 H 94 01/06/20 03:50 01/06/20 03:50 01/06/20 03:50 01/06/20 03:50 01/06/20 07:34 Oxygen Delivery Method Room Air Weight: 209 lb 14.081 oz Body Mass Index (BMI) 31.8 Intake and Output for Last 24 Hours 01/04/20 01/05/20 01/06/20 23:59 23:59 23:59 Intake Total 940 / 940 2349 / 2589 943 / 943 Output Total 750 / 750 200 / 200 Balance 190 / 190 2349 / 2389 743 / 743 General: Alert, Oriented x3, Cooperative, No apparent distress HEENT: Atraumatic, PERRLA, EOMI, Normocephalic Oral: Moist Mucosa Neck: Supple, No JVD Lungs: Clear to auscultation, Normal air movement, No rhonchi, No wheeze, No rales Cardiovascular: Regular rate, Regular Rhythm, Normal S1, Normal S2, No murmurs Abdomen: Soft, Non Tender, Non-Distended, No Hepato-splenomegaly Skin: Ulcer/ Wound - Left lower extremity with wound VAC in place Neurological: Neuro grossly intact, Sensory exam intact to light touch and pain Psych/Mental Status: Normal Affect, Appropriate Microbiology Past 72 Hours 01/04/20 16:41 Wound Drainage - Leg Gram Stain - Final 01/04/20 16:41 Wound Drainage - Leg Wound Culture - Preliminary No growth-Final to follow Laboratory Results 01/06/20 05:52: WBC 5.1, RBC 3.63 L, Hgb 11.8 L, Hct 37.0, MCV 101.9 H, MCH 32.5 H, MCHC 31.9 L, RDW Std Deviation 55.1 H, RDW Coeff of Marylu 14.9 H, Plt Count 164, MPV 9.4, Immature Gran % (Auto) 2.000 H, Neut % (Auto) 73.7 H, Lymph % (Auto) 14.5 L, [place] % (Auto) 8.4, Eos % (Auto) 0.8, Baso % (Auto) 0.6, Absolute Neuts (auto) 3.8, Absolute Lymphs (auto) 0.74 L, Nucleated RBC % 0 01/06/20 05:52: Sodium 139, Potassium 3.7, Chloride 108 H, Carbon Dioxide 26.0, Anion Gap 5, BUN 16, Creatinine 0.77, Estim Creat Clear Calc 77.40, Est GFR (MDRD) Af Amer 98, Est GFR (MDRD) Non-Af 81, BUN/Creatinine Ratio 20.9 H, Glucose 93, Calcium 8.7, Prealbumin 19.6 L Current Medications Acetaminophen (Tylenol) 650 mg PO Q6H PRN PRN PRN Reason: Pain Score 1-10/Temp > 100.7 F Albuterol Sulfate (Ventolin Aerosols) 2.5 mg INHALATION Q2H PRN PRN PRN Reason: Shortness of Breath/Wheezing Bisacodyl (Dulcolax) 10 mg PO DAILY PRN PRN Reason: Constipation Calcium Carbonate (Os-Guido 500) [facility] Last Admin: 01/06/20 09:06 Dose: 500 mg Documented by: Cholecalciferol (Vitamin D (25mcg)) 5,000 unit PO DAILY [facility] Last Admin: 01/06/20 09:06 Dose: 5,000 unit Documented by: Cyanocobalamin (Vitamin B12) 500 mcg PO DAILY@0800 [facility] Last Admin: 01/06/20 09:06 Dose: 500 mcg Documented by: Dexamethasone (Decadron) [facility] Last Admin: 01/06/20 09:05 Dose: 3 mg Documented by: Dextrose (D50w Syringe) 0 gm IV X1 PRN; Protocol PRN Reason: Hypoglycemia Enoxaparin Sodium (Lovenox) 40 mg SC DAILY [facility] Last Admin: 01/06/20 09:07 Dose: 40 mg Documented by: Famotidine (Pepcid) 20 mg PO BID [facility] Last Admin: 01/06/20 09:06 Dose: 20 mg Documented by: Glucagon () 1 mg IM .X1 PRN PRN Reason: Hypoglycemia Sodium Chloride () 1,000 mls @ 60 mls/hr IV .[id number] [facility] Last Infusion: 01/06/20 07:00 Dose: 60 mls/hr Documented by: Cefazolin Sodium () 1 gm in 50 mls @ 100 mls/hr IV Q8 [facility] Last Infusion: 01/06/20 07:00 Dose: Infused Documented by: Levetiracetam (Keppra Tablet) 750 mg PO BID [facility] Last Admin: 01/06/20 09:07 Dose: 750 mg Documented by: Morphine Sulfate () 2 mg IV Q3H PRN PRN PRN Reason: Pain Score 6-10/10 Last Admin: 01/04/20 20:25 Dose: 2 mg Documented by: Nitroglycerin (Nitrostat) 0.4 mg SUBLINGUAL Q5M PRN PRN Reason: CARDIAC/CHEST PAIN Nutritional Formula (Rodger - [place] Flavor) [facility] Last Admin: 01/06/20 09:10 Dose: 1 packet Documented by: Ondansetron HCl (Zofran) 4 mg IV Q8H PRN PRN PRN Reason: NAUSEA/VOMITING Oxycodone HCl (Oxyir) 5 mg PO Q4H PRN PRN PRN Reason: Pain Score 4-5/10 Polyethylene Glycol (Miralax) 17 gm PO DAILY PRN PRN Reason: Constipation Prochlorperazine Edisylate (Compazine Iv) 5 mg IV Q4H PRN PRN PRN Reason: Breakthrough nausea/vomiting Quetiapine Fumarate (Seroquel) 25 mg PO QHS [facility] Last Admin: 01/05/20 21:23 Dose: 25 mg Documented by: Senna/Docusate Sodium (Senokot-S, Riddhi-Colace) 2 tablet PO BID PRN PRN PRN Reason: Constipation Sertraline HCl (Zoloft) 100 mg PO DAILY [facility] Last Admin: 01/06/20 09:07 Dose: 100 mg Documented by: Sodium Chloride () 10 - 40 ml IV UD PRN PRN Reason: SALINE FLUSH Last Admin: 01/04/20 20:24 Dose: 10 ml Documented by: STROKE Vital Signs/Narrative: Vital Signs Pulse Ox 01/06/20 07:34 94 Medical Necessity - Tobacco Use Smoking Status: Former smoker - Quit a month ago. Smoked since age of 12 a pack per day, about 47 pack years of smoking Assessment/Plan All Active Problems (Last Updated 12/16/17 @ 17:[address] Sari Hawk, DO) Traumatic hematoma of left lower leg (Acute) Ulcer of upper extremity (Acute) Ulcer of upper extremity, limited to breakdown of skin (Acute) Skin tear of left lower leg without complication (Acute) Frequent falls (Acute) Other complications of skin graft (allograft) (autograft) (Acute) Failed skin graft (Acute) Wound, open, lower limb with complication (Acute) Infected open wound (Acute) MRSA (methicillin resistant staph aureus) culture positive (Acute) 1. Recurrent falls with weakness to her lower extremities, inability to complete ADLs/slowly progressing memory issues/seizure disorder -She is status post craniectomy and chemoradiation for a glioblastoma -After surgery she has been on long-term dexamethasone and Keppra -She is also had changes in her mood with intermittent bursts of anger and volatile emotions at home, she is therefore on 150 mg of Zoloft as well as Seroquel 25 mg at bedtime, she will need to follow-up with [facility] where she had a craniectomy -Continue with PT/OT -Case management to evaluate possible placement, COVID test is negative 2. 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 GERD -Stable -Continue with Pepcid DVT: Lovenox Inpatient E&M: 32619 Subs Hosp L2
[2020-01-06 10:10] VITALS: BP 103/72; PULSE 74; RESP 20; TEMP 36.5; O2SAT 96
[2020-01-06 13:39] VITALS: BP 107/98; PULSE 67; RESP 18; TEMP 36.4; O2SAT 95
--- NOTE | 2020-01-06 14:48 | PCM.PN.SRG ---
Subjective: Postop #2 Patient is resting comfortably. VAC in place. - Physical Exam Vitals/I&O's: Vital Signs Temp Pulse Resp BP Pulse Ox 97.6 F L 67 18 107/98 H 95 01/06/20 13:39 01/06/20 13:39 01/06/20 13:39 01/06/20 13:39 01/06/20 13:39 Oxygen Delivery Method Room Air Weight: 209 lb 14.081 oz Body Mass Index (BMI) 31.8 Intake and Output for Last 24 Hours 01/04/20 01/05/20 01/06/20 23:59 23:59 23:59 Intake Total 940 / 940 2349 / 2589 1697 / 1697 Output Total 750 / 750 200 / 200 Balance 190 / 190 2349 / 2389 1497 / 1497 General: Alert, Oriented x3 HEENT: PERRLA, EOMI Oral: Moist Mucosa Neck: Supple Abdomen: Soft, Non-Distended Skin: Ulcer/ Wound - left leg wound stable. VAC in place. minimal drainage in the canister. Neurological: Cranial nerves II-XII grossly intact Psych/Mental Status: Normal Affect, Appropriate Microbiology Past 72 Hours 01/04/20 16:41 Wound Drainage - Leg Gram Stain - Final 01/04/20 16:41 Wound Drainage - Leg Wound Culture - Preliminary Gram positive organism Laboratory Results 01/06/20 05:52: WBC 5.1, RBC 3.63 L, Hgb 11.8 L, Hct 37.0, MCV 101.9 H, MCH 32.5 H, MCHC 31.9 L, RDW Std Deviation 55.1 H, RDW Coeff of Marylu 14.9 H, Plt Count 164, MPV 9.4, Immature Gran % (Auto) 2.000 H, Neut % (Auto) 73.7 H, Lymph % (Auto) 14.5 L, [place] % (Auto) 8.4, Eos % (Auto) 0.8, Baso % (Auto) 0.6, Absolute Neuts (auto) 3.8, Absolute Lymphs (auto) 0.74 L, Nucleated RBC % 0 01/06/20 05:52: Sodium 139, Potassium 3.7, Chloride 108 H, Carbon Dioxide 26.0, Anion Gap 5, BUN 16, Creatinine 0.77, Estim Creat Clear Calc 77.40, Est GFR (MDRD) Af Amer 98, Est GFR (MDRD) Non-Af 81, BUN/Creatinine Ratio 20.9 H, Glucose 93, Calcium 8.7, Prealbumin 19.6 L Current Medications Acetaminophen (Tylenol) 650 mg PO Q6H PRN PRN PRN Reason: Pain Score 1-10/Temp > 100.7 F Albuterol Sulfate (Ventolin Aerosols) 2.5 mg INHALATION Q2H PRN PRN PRN Reason: Shortness of Breath/Wheezing Bisacodyl (Dulcolax) 10 mg PO DAILY PRN PRN Reason: Constipation [facility] Carbon[facility] (Os-Guido 500) [facility] Last Admin: 01/06/20 09:06 Dose: 500 mg Documented by: Cholecalciferol (Vitamin D (25mcg)) 5,000 unit PO DAILY [facility] Last Admin: 01/06/20 09:06 Dose: 5,000 unit Documented by: Cyanocobalamin (Vitamin B12) 500 mcg PO DAILY@0800 [facility] Last Admin: 01/06/20 09:06 Dose: 500 mcg Documented by: Dexamethasone (Decadron) [facility] Last Admin: 01/06/20 09:05 Dose: 3 mg Documented by: Dextrose (D50w Syringe) 0 gm IV X1 PRN; Protocol PRN Reason: Hypoglycemia Enoxaparin Sodium (Lovenox) 40 mg SC DAILY [facility] Last Admin: 01/06/20 09:07 Dose: 40 mg Documented by: Famotidine (Pepcid) 20 mg PO BID [facility] Last Admin: 01/06/20 09:06 Dose: 20 mg Documented by: Glucagon () 1 mg IM .X1 PRN PRN Reason: Hypoglycemia Sodium Chloride () 1,000 mls @ 60 mls/hr IV .[id number] [facility] Last Infusion: 01/06/20 13:34 Dose: 0 mls/hr Documented by: Cefazolin Sodium () 1 gm in 50 mls @ 100 mls/hr IV Q8 [facility] Last Admin: 01/06/20 13:34 Dose: 100 mls/hr Documented by: Levetiracetam (Keppra Tablet) 750 mg PO BID [facility] Last Admin: 01/06/20 09:07 Dose: 750 mg Documented by: Morphine Sulfate () 2 mg IV Q3H PRN PRN PRN Reason: Pain Score 6-10/10 Last Admin: 01/04/20 20:25 Dose: 2 mg Documented by: Nitroglycerin (Nitrostat) 0.4 mg SUBLINGUAL Q5M PRN PRN Reason: CARDIAC/CHEST PAIN Nutritional Formula (Rodger - [place] Flavor) [facility] Last Admin: 01/06/20 09:10 Dose: 1 packet Documented by: Ondansetron HCl (Zofran) 4 mg IV Q8H PRN PRN PRN Reason: NAUSEA/VOMITING Oxycodone HCl (Oxyir) 5 mg PO Q4H PRN PRN PRN Reason: Pain Score 4-5/10 Polyethylene Glycol (Miralax) 17 gm PO DAILY PRN PRN Reason: Constipation Prochlorperazine Edisylate (Compazine Iv) 5 mg IV Q4H PRN PRN PRN Reason: Breakthrough nausea/vomiting Quetiapine Fumarate (Seroquel) 25 mg PO QHS [facility] Last Admin: 01/05/20 21:23 Dose: 25 mg Documented by: Senna/Docusate Sodium (Senokot-S, Riddhi-Colace) 2 tablet PO BID PRN PRN PRN Reason: Constipation Sertraline HCl (Zoloft) 100 mg PO DAILY [facility] Last Admin: 01/06/20 09:07 Dose: 100 mg Documented by: Sodium Chloride () 10 - 40 ml IV UD PRN PRN Reason: SALINE FLUSH Last Admin: 01/04/20 20:24 Dose: 10 ml Documented by: Medical Necessity - Tobacco Use Smoking Status: Former smoker - Quit a month ago. Smoked since age of 12 a pack per day, about 47 pack years of smoking Assessment/Plan All Active Problems (Last Updated 12/16/17 @ 17:[address] Sari Hawk, DO) Open wound of left lower leg (Acute) Traumatic hematoma of left lower leg (Acute) Ulcer of upper extremity (Acute) Ulcer of upper extremity, limited to breakdown of skin (Acute) Skin tear of left lower leg without complication (Acute) Frequent falls (Acute) Other complications of skin graft (allograft) (autograft) (Acute) Failed skin graft (Acute) Wound, open, lower limb with complication (Acute) Infected open wound (Acute) MRSA (methicillin resistant staph aureus) culture positive (Acute) 1. Traumatic hematoma left anterolateral leg. 2. Chronic falls at home. 3. Smoker. 4. Glioblastoma multiforme status post craniectomy and chemoradiation on long-term dexamethasone and Keppra. 5. s/p surgical preparation left anterolateral leg with incision and drainage and evacuation and excisional debridement traumatic hematoma (33 cm2). Wound is stable. VAC in place. Minimal drainage in the canister. To be changed tomorrow. Operative culture shows Gram positive organism. Continue Ancef while hospitalized. Anticipate increased metabolic demands from the injury and from the surgery. Prealbumin was 19.6. Encourage nutritional supplementation with protein to help the healing process. After discharge, she will followup at [facility]. If a plateau develops during the healing process, will proceed with delayed closure with skin grafting. Encouraged patient to stop smoking as it may have deleterious effects on wound healing.
[2020-01-06] MEDS: Acetaminophen 325 MG Tablet 650 MG PO (16:20)
[2020-01-06 19:54] VITALS: BP 154/85; PULSE 69; RESP 18; TEMP 36.6; O2SAT 95
[2020-01-06] MEDS: QUEtiapine 25 MG Tablet PO (20:03)
[2020-01-06] MEDS: oxyCODONE 5 MG Tablet PO (20:03)
[2020-01-06 20:32] VITALS: PULSE 69; RESP 18; O2SAT 95
[2020-01-07 05:19] VITALS: BP 133/84; PULSE 57; RESP 18; TEMP 36.8; O2SAT 95
[2020-01-07] MEDS: Cefazolin 1 GM/50 ML BAG IV ×2 (05:20→14:11)
[2020-01-07 07:48] VITALS: O2SAT 95
[2020-01-07] MEDS: Morphine 2 MG/ML Syringe IV (08:59)
[2020-01-07] MEDS: 0.9% Saline Lock 10 ML Syringe IV (09:00)
[2020-01-07 09:49] VITALS: BP 121/70; PULSE 66; RESP 16; TEMP 36.6; O2SAT 93
[2020-01-07] MEDS: levETIRAcetam 750 MG Tablet PO (10:18)
[2020-01-07] MEDS: Enoxaparin 40 MG/0.4 ML Syringe SC (10:18)
[2020-01-07] MEDS: Cyanocobalamin 500 MCG Tablet PO (10:18)
[2020-01-07] MEDS: Famotidine 20 MG Tablet PO (10:18)
[2020-01-07] MEDS: Calcium (Elemental) 500 MG Tablet PO (10:19)
[2020-01-07] MEDS: Sertraline 100 MG Tablet PO (10:19)
--- NOTE | 2020-01-07 12:10 | NURSING ---
wound photo: left lower leg
--- NOTE | 2020-01-07 12:30 | CASEMGMT ---
AMY BROOKS updated by wound nurse that patient would like to go home. AMY BROOKS in to talk with patient and is agreeable to [facility]. RN TODD asked patient's permission to call daughter. Patient stated RN TODD can updated daughter regarding HHC. AMY BROOKS called daughter and per daughter patient is active with [facility]. AMY BROOKS called and updated [facility] regarding wound vac at discharge. Resumption order and updated clinicals sent to [facility]. AMY BROOKS updated wound nurse regarding HHC.
[2020-01-07] MEDS: 0.9% Normal Saline 1,000 ML 60 ML IV (14:11)
--- NOTE | 2020-01-07 14:36 | PCM.DC ---
- Discharge Diagnoses Current Active Problems: Current Active and Chronic Problems (Last Updated 12/16/17 @ 17:[address] Sari Hawk, DO) Glioblastoma (Chronic) You will use the following diet at home:: Regular Your food should be the consistency of: Mechanical soft (ground) Your liquids should be the consistency of: Regular/Thin Discharge Activity: Return to Normal Activity Call your doctor if you observe: Fever of 101 or Higher, Shortness of breath, Dizziness, Fainting spells, Swelling in the ankles, Chest pain, Increased palpitations (irregular heartbeat) Allergies/Adverse Reactions: Allergies adhesive tape Adverse Reaction (Verified 01/19/18 10:54) VERY THIN STEROID SKIN WILL REMOVE SKIN IF ON TOO LONG Medications to take at Discharge Dexamethasone 3 mg PO DAILY 03/02/17 Famotidine [Pepcid] 20 mg PO BID 03/02/17 Multivitamin [Daily Multiple Vitamin] 1 each PO DAILY 03/02/17 Levetiracetam 750 mg PO BID 05/03/17 Polyethylene Glycol 3350 [Miralax] 17 gm PO PRN PRN 01/31/18 Bisacodyl [Dulcolax] 10 mg PO DAILY PRN tablet 02/24/18 Acetaminophen [Tylenol] 650 mg PO Q6H PRN PRN 01/03/20 Calcium Carbonate [Tums] 600 mg PO BID 01/03/20 Calcium Carbonate/Vitamin D3 [Calcium 600 + Vit D Tablet] 1 ea PO BID 01/03/20 Melatonin 6 mg PO QHS 01/03/20 Ondansetron [Zofran Odt] 8 mg PO Q8H PRN PRN 01/03/20 Ondansetron [Zofran] 8 mg PO Q8H PRN PRN 01/03/20 Quetiapine Fumarate [Seroquel] 25 mg PO QHS 01/03/20 Senna [Senokot] 1 tab PO BID 01/03/20 Sertraline HCl [Zoloft] 150 mg PO QHS 01/03/20 Cephalexin [Keflex] 500 mg PO Q6 #32 cap 01/07/20 Cyanocobalamin [Vitamin B12] 500 mcg PO DAILY@0800 #30 tab 01/07/20 The following prescriptions were given: Cephalexin [Keflex] 500 mg PO Q6 #32 cap Transmission Status: Sent to [facility] Cyanocobalamin [Vitamin B12] 500 mcg PO DAILY@0800 #30 tab Transmission Status: Pending to [facility] Primary Care Physician: Loc Arizmendi DO [Primary Care Provider] - Please follow up with your Primary Care Physician in: 3-5 days Test Results: Test results from this visit will be discussed in further detail at your follow-up appointment, if applicable. Please Follow Up With: Wound Care When: 1 week
--- NOTE | 2020-01-07 14:52 | PCM.DC.SUM ---
Discharge Date and Diagnosis Date of Admission: 01/03/20 Date of Discharge: 01/07/20 - Secondary Discharge Diagnosis Chronic Problems: Chronic Problems (Last Updated 12/16/17 @ 17:[address] Sari Hawk DO) Open wound of left knee (Chronic) Venous insufficiency of both lower extremities (Chronic) Ulcer of left foot (Chronic) Ulcer of left calf (Chronic) Ulcer of left lower leg (Chronic) Glioblastoma (Chronic) Abrasion of right leg (Chronic) Abrasion of left leg (Chronic) Nonhealing ulcer of right lower extremity with fat layer exposed (Chronic) Traumatic open wound of left lower leg (Chronic) Traumatic open wound of right lower leg (Chronic) Non-pressure chronic ulcer of left lower leg with muscle involvement without evidence of necrosis (Chronic) GERD (gastroesophageal reflux disease) (Chronic) Nausea (Chronic) Seizure disorder (Chronic) Hypertension (Chronic) Anxiety (Chronic) Chronic pain (Chronic) Neuropathic pain (Chronic) Complication of skin graft (Chronic) Glioblastoma multiforme (Chronic) Ulcers of both lower legs (Chronic) multiple infected ulcers bilateral legs L97.912 Debility, unspecified (Chronic) Hospital Course and Treatment Imaging Results: XR L Tib/Fib:General: IMPRESSION: No demonstrated fracture, dislocation, or destructive osseous lesion. No demonstrated radiodense foreign body. CT Brain: IMPRESSION: Chronic involutional changes of the brain. Status post right craniotomy. Areas of underlying encephalomalacia and parenchymal calcification, stable in appearance. No demonstrated acute intracranial process. CT C-spine: IMPRESSION: Multilevel degenerative changes, as described above. No demonstrated fracture or subluxation. CT Abd/pelvis: IMPRESSION: Multiple lumbar compression fractures. Multiple old fractures of left lumbar transverse processes. Prominent cortical scarring of the left kidney. No demonstrated urinary calculi or hydronephrosis. Umbilical hernia contains fat, but no bowel. No evidence for acute pathology in the abdomen or pelvis. No evidence for significant acute internal injury. CT Chest: IMPRESSION: Old right rib fractures. Compression fractures of lower thoracic and upper lumbar vertebra appear to be chronic. No evidence for acute cardiopulmonary pathology. No evidence for significant acute internal injury. Report of Operation Date of Procedure: 01/04/20 Pre-Operative Diagnosis: 1. Traumatic hematoma left anterolateral leg. 2. Chronic falls at home. 3. Smoker. 4. Glioblastoma multiforme status post craniectomy and chemoradiation on long-term dexamethasone and Keppra. Post-Operative Diagnosis: Same. Surgery/Procedure Performed:: Surgical preparation left anterolateral leg with incision and drainage and evacuation and excisional debridement traumatic hematoma (33 cm2). Description of Surgical Findings:: The patient is a 59 year old F with history of glioblastoma brain status post craniotomy, chemotherapy on long-term dexamethasone came to ED because of recent falls. Patient is known to me from previous falls that resulted in chronic ulcers that needed debridement and wound care and antibiotics and eventual skin grafting. She was admitted now for falls and she sustained a traumatic hematoma left anterolateral leg. She complains of pain in the left leg. She states she sustained the hematoma about a month ago. She was concerned because of some skin discoloration. X-ray showed no fracture. I was asked to evaluate this patient for surgical options for treatment. Patient was informed of the risks and complications of the procedure including alternatives to surgery. These were discussed with the patient personally. Patient voices understanding and wishes to proceed. Encouraged patient to stop smoking as it may have deleterious effects on wound healing. Size of defect left anterolateral leg - 6 x 5.5 x 1 cm. writer: None Type of Anesthesia:: Local MAC - xylocaine with epinephrine and IV sedation. Specimen's removed: Traumatic hematoma left anterolateral leg to Pathology and Microbiology. Drains: None. Estimated Blood Loss (mL): 25 ml. Consultations 01/03/20 09:04 Consult: Onc/Wound/engineering mathematician Routine Comment: left leg wound Plastics Summary of Care Provided: Per HPI: The patient is a 59 year old F with history of glioblastoma brain status post craniotomy, chemotherapy on long-term dexamethasone came to ED with fall. Patient sled down from the bed on her right side and hurt her right chest, shoulder area and right lumbar area. She has a skin atrophy with multiple bruises and ulcers lower extremities. Has chronic nonhealing ulcer over left leg and skin grafts on left leg and right leg. Skin grafting's were done by Dr. Moya in the past. She did not loss consciousness. She had hit her head. As per her she had last fall about 6 months ago when she went to [facility] In ED, she had multiple x-rays and CT scan which did not show acute change or fracture. CBC and BMP is grossly in normal range Hospital Course: 1. Recurrent falls with weakness to lower extremities, inability to complete ADLs/slowly progressing memory issues/seizure disorder/chronic nonhealing ulcer of the left lower [id number]-old female who is brought in from home by her daughter because of appeared to be memory issues. She seem to be doing okay however she had a left lower extremity ulcer debrided by Dr. Moya in the OR, wound VAC was placed. She was started on Ancef cultures are growing rare gram-positive's. She was discharged today on Keflex as she is able to ambulate on her own and she would prefer to go home with home health and go to a fpc facility. I discussed with her that if her weakness is to get worse that I recommended she present back to the hospital for more intensive rehab. She will be discharged on 8 more days of Keflex as well as a prescription for vitamin B12 as she had macrocytosis on her CBC and a B12 level 404. She will continue her home Keppra as she has a seizure disorder secondary to resected glioblastoma. I did discuss with her the plan for discharge today and she expressed understanding of the risks and benefits of going home and would like to go home today. - Physical Exam Vitals/I&O's: Vital Signs Temp Pulse Resp BP Pulse Ox 97.8 F 66 16 121/70 H 93 01/07/20 09:49 01/07/20 09:49 01/07/20 09:49 01/07/20 09:49 01/07/20 09:49 Oxygen Delivery Method Room Air Weight: 209 lb 14.081 oz Body Mass Index (BMI) 31.8 Intake and Output for Last 24 Hours 01/05/20 01/06/20 01/07/20 23:59 23:59 23:59 Intake Total 2349 / 2589 2617 / 2957 1156 / 1156 Output Total 200 / 200 Balance 2349 / 2389 2417 / 2757 1156 / 1156 General: Alert, Oriented x3, Cooperative, No apparent distress HEENT: Atraumatic, PERRLA, EOMI, Normocephalic Oral: Moist Mucosa Neck: Supple, No JVD Lungs: Clear to auscultation, Normal air movement, No rhonchi, No wheeze, No rales Cardiovascular: Regular rate, Regular Rhythm, Normal S1, Normal S2, No murmurs Abdomen: Soft, Non Tender, Non-Distended, No Hepato-splenomegaly Skin: Ulcer/ Wound - Left lower extremity with wound VAC in place Neurological: Neuro grossly intact, Sensory exam intact to light touch and pain Psych/Mental Status: Normal Affect, Appropriate Microbiology Past 72 Hours 01/04/20 16:41 Wound Drainage - Leg Gram Stain - Final 01/04/20 16:41 Wound Drainage - Leg Wound Culture - Preliminary Gram positive organism Current Medications Acetaminophen (Tylenol) 650 mg PO Q6H PRN PRN PRN Reason: Pain Score 1-10/Temp > 100.7 F Last Admin: 01/06/20 16:20 Dose: 650 mg Documented by: Albuterol Sulfate (Ventolin Aerosols) 2.5 mg INHALATION Q2H PRN PRN PRN Reason: Shortness of Breath/Wheezing Bisacodyl (Dulcolax) 10 mg PO DAILY PRN PRN Reason: Constipation Calcium Carbonate (Os-Guido 500) [facility] Last Admin: 01/07/20 10:19 Dose: 500 mg Documented by: Cholecalciferol (Vitamin D (25mcg)) 5,000 unit PO DAILY [facility] Last Admin: 01/07/20 10:18 Dose: 5,000 unit Documented by: Cyanocobalamin (Vitamin B12) 500 mcg PO DAILY@0800 [facility] Last Admin: 01/07/20 10:18 Dose: 500 mcg Documented by: Dexamethasone (Decadron) [facility] Last Admin: 01/07/20 10:07 Dose: 3 mg Documented by: Dextrose (D50w Syringe) 0 gm IV X1 PRN; Protocol PRN Reason: Hypoglycemia Enoxaparin Sodium (Lovenox) 40 mg SC DAILY [facility] Last Admin: 01/07/20 10:18 Dose: 40 mg Documented by: Famotidine (Pepcid) 20 mg PO BID [facility] Last Admin: 01/07/20 10:18 Dose: 20 mg Documented by: Glucagon () 1 mg IM .X1 PRN PRN Reason: Hypoglycemia Sodium Chloride () 1,000 mls @ 60 mls/hr IV .[id number] [facility] Last Infusion: 01/07/20 14:12 Dose: 0 mls/hr Documented by: Cefazolin Sodium () 1 gm in 50 mls @ 100 mls/hr IV Q8 [facility] Last Admin: 01/07/20 14:11 Dose: 100 mls/hr Documented by: Levetiracetam (Keppra Tablet) 750 mg PO BID [facility] Last Admin: 01/07/20 10:18 Dose: 750 mg Documented by: Morphine Sulfate () 2 mg IV Q3H PRN PRN PRN Reason: Pain Score 6-10/10 Last Admin: 01/07/20 08:59 Dose: 2 mg Documented by: Nitroglycerin (Nitrostat) 0.4 mg SUBLINGUAL Q5M PRN PRN Reason: CARDIAC/CHEST PAIN Nutritional Formula (Rodger - [place] Flavor) [facility] Last Admin: 01/07/20 10:20 Dose: Not Given Documented by: Ondansetron HCl (Zofran) 4 mg IV Q8H PRN PRN PRN Reason: NAUSEA/VOMITING Oxycodone HCl (Oxyir) 5 mg PO Q4H PRN PRN PRN Reason: Pain Score 4-5/10 Last Admin: 01/06/20 20:03 Dose: 5 mg Documented by: Polyethylene Glycol (Miralax) 17 gm PO DAILY PRN PRN Reason: Constipation Prochlorperazine Edisylate (Compazine Iv) 5 mg IV Q4H PRN PRN PRN Reason: Breakthrough nausea/vomiting Quetiapine Fumarate (Seroquel) 25 mg PO QHS [facility] Last Admin: 01/06/20 20:03 Dose: 25 mg Documented by: Senna/Docusate Sodium (Senokot-S, Riddhi-Colace) 2 tablet PO BID PRN PRN PRN Reason: Constipation Sertraline HCl (Zoloft) 100 mg PO DAILY [facility] Last Admin: 01/07/20 10:19 Dose: 100 mg Documented by: Sodium Chloride () 10 - 40 ml IV UD PRN PRN Reason: SALINE FLUSH Last Admin: 01/07/20 09:00 Dose: 10 ml Documented by: Discharge Activity: Return to Normal Activity Call your doctor if you observe: Fever of 101 or Higher, Shortness of breath, Dizziness, Fainting spells, Swelling in the ankles, Chest pain, Increased palpitations (irregular heartbeat) Home Medications: Medications to take at Discharge Dexamethasone 3 mg PO DAILY 03/02/17 Famotidine [Pepcid] 20 mg PO BID 03/02/17 Multivitamin [Daily Multiple Vitamin] 1 each PO DAILY 03/02/17 Levetiracetam 750 mg PO BID 05/03/17 Polyethylene Glycol 3350 [Miralax] 17 gm PO PRN PRN 01/31/18 Bisacodyl [Dulcolax] 10 mg PO DAILY PRN tablet 02/24/18 Acetaminophen [Tylenol] 650 mg PO Q6H PRN PRN 01/03/20 Calcium Carbonate [Tums] 600 mg PO BID 01/03/20 Calcium Carbonate/Vitamin D3 [Calcium 600 + Vit D Tablet] 1 ea PO BID 01/03/20 Melatonin 6 mg PO QHS 01/03/20 Ondansetron [Zofran Odt] 8 mg PO Q8H PRN PRN 01/03/20 Ondansetron [Zofran] 8 mg PO Q8H PRN PRN 01/03/20 Quetiapine Fumarate [Seroquel] 25 mg PO QHS 01/03/20 Senna [Senokot] 1 tab PO BID 01/03/20 Sertraline HCl [Zoloft] 150 mg PO QHS 01/03/20 Cephalexin [Keflex] 500 mg PO Q6 #32 cap 01/07/20 Cyanocobalamin [Vitamin B12] 500 mcg PO DAILY@0800 #30 tab 01/07/20 Following Prescrptions Were Given to Patient: Cephalexin [Keflex] 500 mg PO Q6 #32 cap Transmission Status: Sent to [facility] Cyanocobalamin [Vitamin B12] 500 mcg PO DAILY@0800 #30 tab Transmission Status: Pending to [facility] Primary Care Physician: Loc Arizmendi DO [Primary Care Provider] - Please follow up with your Primary Care Physician in: 3-5 days Please Follow Up With: Wound Care When: 1 week Disposition: Home with Home Health Minutes spent on discharge:: 35 Patient Condition:: Stable Medical Necessity - Tobacco Use Smoking Status: Former smoker - Quit a month ago. Smoked since age of 12 a pack per day, about 47 pack years of smoking Meaningful Use Info Meaningful Use Diagnoses (Choose all that apply): None applicable Inpatient E&M: [id number] [facility]
--- NOTE | 2020-01-07 15:04 | PCM.PN.SRG ---
Subjective: Post op day #3 Patient resting in bed. Wound VAC dressing in place. - Physical Exam Vitals/I&O's: Vital Signs Temp Pulse Resp BP Pulse Ox 97.8 F 66 16 121/70 H 93 01/07/20 09:49 01/07/20 09:49 01/07/20 09:49 01/07/20 09:49 01/07/20 09:49 Oxygen Delivery Method Room Air Weight: 209 lb 14.081 oz Body Mass Index (BMI) 31.8 Intake and Output for Last 24 Hours 01/05/20 01/06/20 01/07/20 23:59 23:59 23:59 Intake Total 2349 / 2589 2617 / 2957 1156 / 1156 Output Total 200 / 200 Balance 2349 / 2389 2417 / 2757 1156 / 1156 General: Alert HEENT: Atraumatic Oral: Moist Mucosa Lungs: Normal air movement Cardiovascular: Regular rate Abdomen: Soft Extremities: Capillary Refill Less than 3 Seconds, Edema, Peripheral Pulses Normal Skin: Ulcer/ Wound - Left anterolateral leg wound with no active bleeding. Wound VAC dressing in place. Musculoskeletal: No Tenderness to Palpation of Joints or Extremities Neurological: Neuro grossly intact Psych/Mental Status: Appropriate Microbiology Past 72 Hours 01/04/20 16:41 Wound Drainage - Leg Gram Stain - Final 01/04/20 16:41 Wound Drainage - Leg Wound Culture - Preliminary Gram positive organism Current Medications Acetaminophen (Tylenol) 650 mg PO Q6H PRN PRN PRN Reason: Pain Score 1-10/Temp > 100.7 F Last Admin: 01/06/20 16:20 Dose: 650 mg Documented by: Albuterol Sulfate (Ventolin Aerosols) 2.5 mg INHALATION Q2H PRN PRN PRN Reason: Shortness of Breath/Wheezing Bisacodyl (Dulcolax) 10 mg PO DAILY PRN PRN Reason: Constipation Calcium Carbonate (Os-Guido 500) [facility] Last Admin: 01/07/20 10:19 Dose: 500 mg Documented by: Cholecalciferol (Vitamin D (25mcg)) 5,000 unit PO DAILY [facility] Last Admin: 01/07/20 10:18 Dose: 5,000 unit Documented by: Cyanocobalamin (Vitamin B12) 500 mcg PO DAILY@0800 [facility] Last Admin: 01/07/20 10:18 Dose: 500 mcg Documented by: Dexamethasone (Decadron) [facility] Last Admin: 01/07/20 10:07 Dose: 3 mg Documented by: Dextrose (D50w Syringe) 0 gm IV X1 PRN; Protocol PRN Reason: Hypoglycemia Enoxaparin Sodium (Lovenox) 40 mg SC DAILY [facility] Last Admin: 01/07/20 10:18 Dose: 40 mg Documented by: Famotidine (Pepcid) 20 mg PO BID [facility] Last Admin: 01/07/20 10:18 Dose: 20 mg Documented by: Glucagon () 1 mg IM .X1 PRN PRN Reason: Hypoglycemia Sodium Chloride () 1,000 mls @ 60 mls/hr IV .[id number] [facility] Last Infusion: 01/07/20 14:12 Dose: 0 mls/hr Documented by: Cefazolin Sodium () 1 gm in 50 mls @ 100 mls/hr IV Q8 [facility] Last Admin: 01/07/20 14:11 Dose: 100 mls/hr Documented by: Levetiracetam (Keppra Tablet) 750 mg PO BID [facility] Last Admin: 01/07/20 10:18 Dose: 750 mg Documented by: Morphine Sulfate () 2 mg IV Q3H PRN PRN PRN Reason: Pain Score 6-10/10 Last Admin: 01/07/20 08:59 Dose: 2 mg Documented by: Nitroglycerin (Nitrostat) 0.4 mg SUBLINGUAL Q5M PRN PRN Reason: CARDIAC/CHEST PAIN Nutritional Formula (Rodger - [place] Flavor) [facility] Last Admin: 01/07/20 10:20 Dose: Not Given Documented by: Ondansetron HCl (Zofran) 4 mg IV Q8H PRN PRN PRN Reason: NAUSEA/VOMITING Oxycodone HCl (Oxyir) 5 mg PO Q4H PRN PRN PRN Reason: Pain Score 4-5/10 Last Admin: 01/06/20 20:03 Dose: 5 mg Documented by: Polyethylene Glycol (Miralax) 17 gm PO DAILY PRN PRN Reason: Constipation Prochlorperazine Edisylate (Compazine Iv) 5 mg IV Q4H PRN PRN PRN Reason: Breakthrough nausea/vomiting Quetiapine Fumarate (Seroquel) 25 mg PO QHS [facility] Last Admin: 01/06/20 20:03 Dose: 25 mg Documented by: Senna/Docusate Sodium (Senokot-S, Riddhi-Colace) 2 tablet PO BID PRN PRN PRN Reason: Constipation Sertraline HCl (Zoloft) 100 mg PO DAILY [facility] Last Admin: 01/07/20 10:19 Dose: 100 mg Documented by: Sodium Chloride () 10 - 40 ml IV UD PRN PRN Reason: SALINE FLUSH Last Admin: 01/07/20 09:00 Dose: 10 ml Documented by: Medical Necessity - Tobacco Use Smoking Status: Former smoker - Quit a month ago. Smoked since age of 12 a pack per day, about 47 pack years of smoking Assessment/Plan All Active Problems (Last Updated 12/16/17 @ 17:[address] Sari Hawk, DO) Open wound of left lower leg (Acute) Traumatic hematoma of left lower leg (Acute) Ulcer of upper extremity (Acute) Ulcer of upper extremity, limited to breakdown of skin (Acute) Skin tear of left lower leg without complication (Acute) Frequent falls (Acute) Other complications of skin graft (allograft) (autograft) (Acute) Failed skin graft (Acute) Wound, open, lower limb with complication (Acute) Infected open wound (Acute) MRSA (methicillin resistant staph aureus) culture positive (Acute) 1. Traumatic hematoma left anterolateral leg. 2. Chronic falls at home. 3. Smoker. 4. Glioblastoma multiforme status post craniectomy and chemoradiation on long-term dexamethasone and Keppra. 5. s/p surgical preparation left anterolateral leg with incision and drainage and evacuation and excisional debridement traumatic hematoma (33 cm2). Wound is stable. VAC in place. Minimal drainage in the canister. Wound VAC dressing changed earlier today. Operative culture shows Gram positive organism. Continue Ancef while hospitalized. Anticipate increased metabolic demands from the injury and from the surgery. Prealbumin was 19.6. Encourage nutritional supplementation with protein to help the healing process. After discharge, she will [facility]. If a plateau develops during the healing process, will proceed with delayed closure with skin grafting. Encouraged patient to stop smoking as it may have deleterious effects on wound healing.
--- NOTE | 2020-01-07 16:17 | CASEMGMT ---
Social Work Note JOZEF received call from Yael at [employer]. Yael states that pt's sister called and filed [facility] report. JOZEF informed Yael that pt and pt's step-daughter/daughter who is listed as POA for pt were all agreeable for pt to return home at discharge. JOZEF updated Yael that pt did well with therapy and has been set up with [facility] for RN, PT/OT and SW through [facility]. JOZEF updated Yael that pt also has aide services 2x a week. JOZEF updated Yael that pt will be discharged home today. Pricilla Cintron OIL BURNER SERVICER AND INSTALLER, VOICE SYSTEMS ENGINEER
== END 2020-01-07 16:22 | disposition home or self-care (01) | DRG 41 ==
LOC: ED 06:04 → MS3 07:55
PROVIDERS: Anesthesiology; Surgery; Admitting Provider Internal Medicine; Emergency Provider Emergency Medicine; PCP Student in an Organized Health Care Education/Training Program; Visit Provider Family Medicine
PROC: 0H9LXZZ Drainage of Left Lower Leg Skin, External Approach (ICD-10-PCS; principal; 2020-01-04 15:05)
DX: R29.6 Repeated falls (principal); L97.925 Non-pressure chronic ulcer of unspecified part of left lower leg with muscle involvement without evidence of necrosis; R53.81 Other malaise; R53.1 Weakness; S80.12XA Contusion of left lower leg, initial encounter; G40.909 Epilepsy, unspecified, not intractable, without status epilepticus; Z85.841 Personal history of malignant neoplasm of brain; W06.XXXA Fall from bed, initial encounter; Y93.89 Activity, other specified; Y92.003 Bedroom of unspecified non-institutional (private) residence as the place of occurrence of the external cause; Y99.8 Other external cause status; K21.9 Gastro-esophageal reflux disease without esophagitis; I10 Essential (primary) hypertension; Z79.899 Other long term (current) drug therapy; Z87.891 Personal history of nicotine dependence; G89.29 Other chronic pain; Z66 Do not resuscitate; F41.9 Anxiety disorder, unspecified
CPT/HCPCS: 36415; 70450; 71260; 72125; 73590; 74177; 80048; 80076; 82306; 82550; 82607; 82746; 83735; 84100; 84134; 84443; 85025; 85027; 86140; 87070; 87075; 87077; 87102; 87176; 87186; 87205; 87206; 87635; 88304; 88305; 92507; 92523; 92610; 93005; 97110; 97116; 97162; 97166; 97530; 97535; 97802; 99251; 99285; G2023; J7030; Q9967; A4216; G0463; J2405; U0003

== ENCOUNTER 2020-01-08 13:54 | Inpatient (IN) | payer MEDICARE, SELFPAY ==
[2020-01-04 14:02] VITALS: BMI 31.8
[2020-01-08] VITALS (7 sets, daily range): BP systolic 123–161; BP diastolic 82–90; PULSE 67–88; RESP 18–22; TEMP 36.1–36.8; O2SAT 94–97; BMI 25.8; BMI 32.4
--- NOTE | 2020-01-08 14:28 | EKG12_ITS ---
Test Reason : Blood Pressure : / mmHG Vent. Rate : 063 BPM Atrial Rate : 063 BPM P-R Int : 134 ms QRS Dur : 084 ms QT Int : 430 ms P-R-T Axes : 059 044 077 degrees QTc Int : 440 ms Normal sinus rhythm with sinus arrhythmia Normal ECG Confirmed by OTAN ORTEGA ([id number]), commercial production editor ESTUARDO ROSA ([id number]) on 01/15/2020 8:12:23 AM Referred By: REBECCA Confirmed By:TOAN ORTEGA
--- NOTE | 2020-01-08 14:29 | ED.VIS.GEN ---
History of Present Illness Chief Complaint: Weakness Informant: Patient, Family Onset: Days - unk; at least 3 days; pt denies new sx w/r/t weakness Context: Gradual Onset Timing: Continuous Quality: weak Location: all over Current Severity: Mild Worsened by: unk Relieved by: unk Associated Symptoms: postoperative soreness right lower leg. headaches. Narrative: Patient had a redo skin graft on her left lower leg yesterday by Dr. Moya. She fell this morning, after tripping. She was using her roller walker. She accidentally ripped the wound VAC off of her operative site when it caught on her walker. This was at least 5 hours prior to my evaluation. Daughter was not able to come in, but relayed that she is concerned because she has had increased falls recently and has been weak all over. When in the hospital for surgery she did not want to go to rehab so she has been getting home PT/OT, the patient states she has been doing this and has been able to do with a 1 or 2. The daughter apparently is concerned that she is not safe at home doing it this way. The patient denies any other focal symptoms except for intermittent headaches, her stable chronic low back pain, and mild postoperative soreness at the surgical site of the left lower leg. States has been eating and drinking relatively well. No issues with urinating or bowel movements. Capacity - Capacity Assessment Tool Can the patient make a choice & communicate that choice?: Yes Can the patient understand benefits, risks and alternatives?: Yes Can the patient make a logical, rational choice?: Yes Is the choice the patient makes consistent w/ their values?: Unable to Determine Is there an impending, emergent risk to the patient?: Unable to Determine Does the patient have an Advance Directive?: Yes i.e. HCPOA: Yes - daughter - Past Medical History (1) MRSA (methicillin resistant staph aureus) culture positive Status: Chronic (2) Anxiety Status: Chronic (3) Chronic pain Status: Chronic (4) Debility, unspecified Status: Chronic (5) GERD (gastroesophageal reflux disease) Status: Chronic (6) Glioblastoma multiforme Status: Chronic (7) Hypertension Status: Chronic (8) Neuropathic pain Status: Chronic (9) Seizure disorder Status: Chronic (10) Venous insufficiency of both lower extremities Status: Chronic Past Medical History - Allergies and Home Meds Allergies/Adverse Reactions: Allergies adhesive tape Adverse Reaction (Verified 01/08/20 13:54) VERY THIN STEROID SKIN WILL REMOVE SKIN IF ON TOO LONG Primary Care Physician: Loc Arizmendi DO [Primary Care Provider] - As soon as possible Kei Moya MD [STAFF PHYSICIAN] - As soon as possible Surgical History: dilatation and curettage, - - skin graft LLE Lives: With Family Smoking Status: Former smoker - Family History Maternal Family History: Reports: COPD - of COPD Paternal Family History: Reports: No pertinent history Review of Systems General: Reports: Malaise. Denies: Chills, Fever, Sweats Eyes: Denies: Visual changes - bilaterally, Diplopia ENT: Denies: Rhinorrhea, Sore throat Cardiovascular: Denies: Chest pain, Palpitations Respiratory: Denies: Dyspnea, Cough, Dyspnea on exertion Gastrointestinal: Denies: Abdominal pain, Nausea, Vomiting, Diarrhea, Melena, Hematochezia Genitourinary: Denies: Dysuria, Hematuria, Frequency Musculoskeletal: Reports: Back pain, Extremity Pain. Denies: Neck pain Skin: Denies: Rash, Wounds Neurological: Reports: Headache. Denies: Weakness, Numbness Physical Exam Vital Signs/Narrative: Vital Signs Temp Pulse Resp BP Pulse Ox 01/08/20 13:56 97.0 F L 72 18 123/84 H 95 Inital Vital Signs reviewed: Yes General: Well nourished, Well developed, Obese, No Acute Distress - Conversive in full sentences. Able to sit up with little assistance. Head: Normocephalic, Atraumatic Eyes: Perrl, EOMI ENT: Moist mucous membranes, No rhinorrhea, - - Edentulous. Negative for: Sinus tenderness Neck: Supple, Nontender, No lymphadenopathy Cardiovascular: Regular rate, Regular rhythm, No murmurs Respiratory: No distress, CTA bilaterally, Chest nontender Abdomen: Soft, Nontender, Nondistended, Normal bowel sounds Back: Nontender, Normal Inspection Extremities: Nontender, No edema Skin: Normal color, No rash, No Trauma, - - Left lower extremity operative wound approximately 5 cm in diameter, wound VAC dressing is still intact, but there is a hole in the plastic above the sponge which is covering the wound still, the hole was open since the wound VAC hardware is gone. Mild blanching erythema around the area with minimal to no tenderness. No induration, abscess, discharge. Neurological: Alert, Oriented x3, Cranial nerves II-XII grossly intact, Normal Strength, Normal Sensation, - - Normal [id number] and [id number] bilaterally Psychological: Normal affect, Normal Mood Diagnostic/Tx/Re-eval Impressions Brain CT 01/08/20 14:30 IMPRESSION: No acute intracranial abnormality. Right craniectomy with surgical cavity and calcifications. Limited CT evaluation for residual/recurrence. Further evaluation with contrast-enhanced MRI can be obtained. Electronically Signed: Abby Choi MD at 15:48 EDT Tel , Service support , Chest X-Ray 01/08/20 15:30 IMPRESSION: No definite acute or significant abnormality seen. Electronically Signed: Mikael Baeza MD at 16:33 EDT , Service support , 01/08/20 14:30 CT Brain [Brain/Head without Contrast] [CT] Stat 01/08/20 15:30 Chest 1 View (Portable) [RAD] Stat Laboratory Results 01/08/20 01/08/20 01/08/20 15:20 15:20 15:20 WBC 5.2 RBC 3.70 L Hgb 12.2 Hct 38.4 MCV 103.8 H MCH 33.0 H MCHC 31.8 L RDW Std Deviation 56.3 H RDW Coeff of Marylu 14.8 H Plt Count 163 MPV 9.3 Immature Gran % (Auto) 2.700 H Neut % (Auto) 74.2 H Lymph % (Auto) 9.1 L [place] % (Auto) 12.0 H Eos % (Auto) 1.0 Baso % (Auto) 1.0 Absolute Neuts (auto) 3.8 Absolute Lymphs (auto) 0.47 L Nucleated RBC % 0 Differential Comment SCANNED Sodium 142 Potassium 3.6 Chloride 105 Carbon Dioxide 30.0 Anion Gap 7 BUN 17 Creatinine 0.81 Estim Creat Clear Calc 73.57 Est GFR (MDRD) Af Amer 92 Est GFR (MDRD) Non-Af 76 BUN/Creatinine Ratio 20.9 H Glucose 93 Calcium 9.2 Troponin I < 0.015 Urine Color Urine Clarity Urine pH Ur Specific [place] Urine Protein Urine Glucose (UA) Urine Ketones Urine Occult Blood Urine Nitrite Urine Bilirubin Urine Urobilinogen Ur Leukocyte Esterase Urine RBC Urine WBC Ur Squamous Epith Cells Amorphous Sediment Urine Bacteria Urine Mucus 01/08/20 16:00 WBC RBC Hgb Hct MCV MCH MCHC RDW Std Deviation RDW Coeff of Marylu Plt Count MPV Immature Gran % (Auto) Neut % (Auto) Lymph % (Auto) [place] % (Auto) Eos % (Auto) Baso % (Auto) Absolute Neuts (auto) Absolute Lymphs (auto) Nucleated RBC % Differential Comment Sodium Potassium Chloride Carbon Dioxide Anion Gap BUN Creatinine Estim Creat Clear Calc Est GFR (MDRD) Af Amer Est GFR (MDRD) Non-Af BUN/Creatinine Ratio Glucose Calcium Troponin I Urine Color Yellow Urine Clarity Sl. Cloudy Urine pH 6.0 Ur Specific [place] 1.020 Urine Protein Negative Urine Glucose (UA) Normal Urine Ketones Negative Urine Occult Blood Negative Urine Nitrite Negative Urine Bilirubin Negative Urine Urobilinogen Normal Ur Leukocyte Esterase Negative Urine RBC 0 SEEN Urine WBC 0-5 SEEN Ur Squamous Epith Cells 0-5 SEEN Amorphous Sediment 1+ URATE Urine Bacteria 0 SEEN Urine Mucus 0 SEEN - Rhythm Strip Rhythm Strip: Sinus Rhythm Rate: 63 Ectopy: None - EKG Initial EKG Interpretation: Sinus Rhythm, No Acute Injury Pattern Prior: Unchanged - Medical Decision Making Work-up fairly unremarkable as above. No obvious signs of major recurrence of her GBM although certainly a plain CT is of relatively limited significance. Spoke with the patient's daughter. As the patient did here in the emergency department after going to the bathroom, it seems she is forgetting about the wound VAC, setting a down walking away from it, which is part of how it was torn away from the dressing/wound in the first place. She tends to be forgetful since her GBM surgery/resection, but she is not confused. Discussed with Dr. Moya, who agrees that the patient has been falling for years and if she is not doing well she should probably be admitted for further PT/OT evaluation and short-term rehab, he will consult for the wound, nursing had wound care nurse come and quickly place a new wound VAC on the operative area after we evaluated her here. Patient was initially agreeable, now she refuses to stay and states she wants to be at home tonight. She understands the risk of going home, and appears to have the capacity to make this decision AGAINST MEDICAL ADVICE. She understands that she could fall and injure herself worse. She also understands that her wound with her new skin graft was exposed to the air and unhooked from the wound VAC device for over 5 hours and it could be at risk, and staying in the hospital would allow her surgeon to evaluate it to see if it needs to be managed differently. She states she does understand, she also understands that it is against her daughter's wishes to go home, and that she could be at risk of another fall and injury if she is indeed as weak as her daughter states she is. She agrees to sign out AGAINST MEDICAL ADVICE and refuses to stay despite all of this risk. Patient remained in the room until her daughter arrived. The 3 of us talked quite a bit, again the patient does appear to have capacity to make these decisions, and we were eventually able to talk her into staying in the hospital, without forcing her. At this time she is agreeable to staying, and understands the benefits of doing so. ED Disposition - Plan for ED Patient: Disposition: Acute Care Hospital [facility] Diagnosis: Debility, unspecified, Frequent falls, Status post skin graft
--- NOTE | 2020-01-08 14:30 | CT_ITS ---
STUDY: CT BRAIN WITHOUT CONTRAST REASON FOR EXAM: Female, 59 years old. PT STATED INCREASED FALL, WEAKNESS, HEADACHE, RADIATION DOSAGE (If Supplied By Facility): CTDIvol = ( 44.99 ) mGy, DLP = ( 796.11 ) mGycm TECHNIQUE: Transaxial CT imaging of the brain was performed without administration of intravenous contrast material. Individualized dose optimization techniques were used for this CT. COMPARISON: May 12, 2019 FINDINGS: Again noted is the right parietal occipital craniectomy. Again noted is a right periatrial calcifications with extensive surrounding white matter hypodensity. Findings are grossly stable in comparison with the prior CT examination. There is cerebral atrophy with widening of the extra-axial spaces and ventricular dilatation. There are areas of decreased attenuation within the white matter tracts of the supratentorial brain, consistent with microvascular disease changes. There is no intracranial hemorrhage. There are no findings of an acute ischemic infarction. CT/Brain/Head without Contrast IMPRESSION: No acute intracranial abnormality. Right craniectomy with surgical cavity and calcifications. Limited CT evaluation for residual/recurrence. Further evaluation with contrast-enhanced MRI can be obtained. Electronically Signed: Abby Choi MD at 15:48 EDT Tel , Service support ,
--- NOTE | 2020-01-08 14:32 | ED.RN ---
spoke with Anitha wound RN to replace wound vac per Dr. Hill.
--- NOTE | 2020-01-08 15:30 | RAD_ITS ---
STUDY: X-RAY CHEST REASON FOR EXAM: Female, 59 years old. Weakness TECHNIQUE: Single AP portable view of the chest. COMPARISON: 05/12/2019. FINDINGS: The lungs are clear and expanded. Stable probable mild scarring in the lung bases. There is no demonstrated pleural abnormality. Normal size heart. Normal mediastinum and michelle. Normal visualized pulmonary arteries. Normal visualized aortic arch and descending thoracic aorta. Normal visualized thoracic spine. Normal visualized ribs, clavicles, and shoulders. There is no demonstrated abnormality of the visualized soft tissue structures of the upper abdomen. RAD/Chest 1 View (Portable) IMPRESSION: No definite acute or significant abnormality seen. Electronically Signed: Mikael Baeza MD at 16:33 EDT , Service support ,
--- NOTE | 2020-01-08 15:32 | NURSING ---
Was called by nursing to apply a new wound VAC dressing to the LLE. Pt states that she got the tubing caught on something at home and the tubing pulled off. since this nurse was unsure how long the dressing was in place, this nurse removed the dressing and Adaptic. cleansed wound and periwound with NS. pat dry. placed drape to all outer wound edges. placed 1 piece of Adaptic and 1 piece of foam into the wound. Good seal noted at 150mmHg low continuous suction. home VAC with critical battery so the wound VAC was plugged in at this time. discussed with nursing to be sure the cord was sent home with patient as well. placed ABD pads under VAC tubing and applied an NICKY wrap to help prevent pt getting tubing caught again at home.
[2020-01-08 15:34] LABS: Absolute Lymphocyte Count 0.47 X10^3/uL (0.83-4.51); Absolute Neutrophil Count 3.8 X10^3/uL (2.0-7.7); Basophil# 0.05 X10^3/uL; Eosinophil# 0.05 X10^3/uL; Hematocrit 38.4 % (37-47); Hemoglobin 12.2 g/dL (12.0-15.0); Lymphocyte # 0.47 X10^3/ul (4.0); Lymphocyte % 9.1 % (19-41); Mean Corp Hgb Conc 31.8 g/dL (32-36); Mean Corpuscular Volume 103.8 fL (81-99); Mean Platelet Vol. 9.3 fl (6.2-12.0); Monocyte# 0.62 X10^3/uL; NRBC Flagged by Analyzer 0 % (0-5); Neutrophil # 3.82 X10^3/uL (2.7-7.7); Neutrophil % 74.2 % (47-70); POSITIVE DIFFERENTIAL YES; Platelet Count 163 K/mm3 (150-450); RBC Distribution Width CV 14.8 % (11.6-14.6); RBC Distribution Width SD 56.3 fl (35.1-43.9); White Blood Count 5.2 K/mm3 (4.4-11.0)
[2020-01-08 15:47] LABS: Differential Indicated SCAN CRITERIA MET
[2020-01-08 15:57] LABS: Differential Comment SCANNED
[2020-01-08 16:18] LABS: Bacteria 0 SEEN /hpf (None Seen); Mucous, Urine 0 SEEN /hpf (<or=2+); Red Blood Cells-Urine 0 SEEN /hpf (0-5)
[2020-01-08 16:23] LABS: Color, Urine Yellow (Yellow); Glucose, Dipstick Normal (Normal); Ketone-Dipstick Negative (Negative); Leukocyte Esterase-Dipstick Negative /ul (Negative); Nitrite-Dipstick Negative (Negative); Occult Blood-Urine Negative /ul (Negative); Protein-Dipstick Negative (Negative); Urine Bilirubin Dipstick Negative (Negative); Urine Clarity Sl. Cloudy (Clear); Urine Urobilinogen Normal (Normal)
[2020-01-08 16:39] LABS: Amorphous Sediment 1+ URATE; Squamous Epithelial Cells - UA 0-5 SEEN /hpf (5-10); White Blood Cells 0-5 SEEN /hpf (0-5)
--- NOTE | 2020-01-08 17:01 | NURSING ---
MED SURG PAINTSIL DEBILITY, POST OP LLE SKIN GRAFT, MULTI FALLS
--- NOTE | 2020-01-08 17:51 | PCM.HP.STD ---
<Azeb Garcia - Last Filed: 01/08/20 18:09> Problem List (1) Status post skin graft Status: Chronic (2) Open wound of left lower leg Status: Chronic Comment: open surgical hematoma wound left anterolateral leg (3) Traumatic hematoma of left lower leg Status: Chronic (4) Open wound of left knee Status: Chronic (5) Venous insufficiency of both lower extremities Status: Chronic (6) Ulcer of left foot Status: Chronic (7) Ulcer of left calf Status: Chronic (8) Ulcer of left lower leg Status: Chronic (9) Ulcer of upper extremity Status: Acute (10) Ulcer of upper extremity, limited to breakdown of skin Status: Chronic (11) Skin tear of left lower leg without complication Status: Chronic (12) Frequent falls Status: Chronic (13) Glioblastoma Status: Chronic (14) Abrasion of right leg Status: Chronic (15) Abrasion of left leg Status: Chronic (16) Nonhealing ulcer of right lower extremity with fat layer exposed Status: Chronic (17) Traumatic open wound of left lower leg Status: Chronic (18) Traumatic open wound of right lower leg Status: Chronic (19) Non-pressure chronic ulcer of left lower leg with muscle involvement without evidence of necrosis Status: Chronic (20) GERD (gastroesophageal reflux disease) Status: Chronic (21) Seizure disorder Status: Chronic (22) Hypertension Status: Chronic (23) Anxiety Status: Chronic (24) Chronic pain Status: Chronic (25) Neuropathic pain Status: Chronic (26) Other complications of skin graft (allograft) (autograft) Status: Chronic (27) Failed skin graft Status: Chronic (28) Complication of skin graft Status: Chronic (29) Glioblastoma multiforme Status: Chronic (30) Ulcers of both lower legs Status: Chronic Comment: multiple infected ulcers bilateral legs L97.919 (31) Wound, open, lower limb with complication Status: Chronic (32) Infected open wound Status: Chronic (33) MRSA (methicillin resistant staph aureus) culture positive Status: Chronic (34) Debility, unspecified Status: Chronic History of Present Illness Date of Admission: 01/08/20 Chief Complaint: Fall, dislodged wound VAC The patient is a 59 year old F who presents the emergency room due to fall with accidental removal of wound VAC. Patient was discharged yesterday following recent I&D with debridement of traumatic hematoma left leg 01/04/[address] Moya. Patient was recommended to go to rehab at that time however she chose to return home with home health, PT/OT. Patient states she uses a Rollator at home and her wound VAC got caught in the Rollator causing her to fall. She denies hitting her head or other injury. Denies dizziness or lightheadedness. Patient has a history of recurrent falls. She has a past medical history of glioblastoma status post craniotomy, chronic pain, history of seizure, chronic nonhealing ulcer of the left lower extremity with failed skin graft. Past Medical History Past Medical History (Chronic Problems): Chronic Problems (Last Updated 12/16/17 @ 17:[address] Sari Hawk, ) Status post skin graft (Chronic) Open wound of left lower leg (Chronic) open surgical hematoma wound left anterolateral leg Traumatic hematoma of left lower leg (Chronic) Open wound of left knee (Chronic) Venous insufficiency of both lower extremities (Chronic) Ulcer of left foot (Chronic) Ulcer of left calf (Chronic) Ulcer of left lower leg (Chronic) Ulcer of upper extremity, limited to breakdown of skin (Chronic) Skin tear of left lower leg without complication (Chronic) Frequent falls (Chronic) Glioblastoma (Chronic) Abrasion of right leg (Chronic) Abrasion of left leg (Chronic) Nonhealing ulcer of right lower extremity with fat layer exposed (Chronic) Traumatic open wound of left lower leg (Chronic) Traumatic open wound of right lower leg (Chronic) Non-pressure chronic ulcer of left lower leg with muscle involvement without evidence of necrosis (Chronic) GERD (gastroesophageal reflux disease) (Chronic) Seizure disorder (Chronic) Hypertension (Chronic) Anxiety (Chronic) Chronic pain (Chronic) Neuropathic pain (Chronic) Other complications of skin graft (allograft) (autograft) (Chronic) Failed skin graft (Chronic) Complication of skin graft (Chronic) Glioblastoma multiforme (Chronic) Ulcers of both lower legs (Chronic) multiple infected ulcers bilateral legs L97.919 Wound, open, lower limb with complication (Chronic) Infected open wound (Chronic) MRSA (methicillin resistant staph aureus) culture positive (Chronic) Debility, unspecified (Chronic) Medical History: Medical History (Last Updated 12/16/17 @ 17:[address] Sari Hawk, ) Other complications of skin graft (allograft) (autograft) (Acute) T86.828 Failed skin graft (Acute) T86.821 Ulcers of both lower legs (Chronic) L97.919, L97.929 multiple infected ulcers bilateral legs L97.919 Allergies adhesive tape Adverse Reaction (Verified 01/08/20 13:54) VERY THIN STEROID SKIN WILL REMOVE SKIN IF ON TOO LONG Home Medications: Ambulatory Orders Medication Instructions Recorded Dexamethasone 3 mg PO DAILY 03/02/17 Melatonin 6 mg PO QHS 01/03/20 Quetiapine Fumarate [Seroquel] 25 mg PO QHS 01/03/20 Senna [Senokot] 1 tab PO BID 01/03/20 Sertraline HCl [Zoloft] 150 mg PO QHS 01/03/20 Acetaminophen [Tylenol Extra 1,000 mg PO BID 01/08/20 Strength] Cephalexin [Keflex] 500 mg PO Q6H 01/08/20 Cyanocobalamin [Vitamin B12] 500 mcg PO DAILY@0800 01/08/20 Famotidine 20 mg PO BID 01/08/20 Levetiracetam [Keppra] 750 mg PO BID 01/08/20 Multivitamins,Therapeutic 1 tab PO DAILY 01/08/20 [Multivitamin] Surgical History: dilatation and curettage, - - skin graft LLE Psychiatric History: No pertinent psych hx 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 Review of Systems Constitutional: Denies: Chills, Fever, Weight Change HEENT: Denies: Head Aches, Sinus Congestion, Sinus Drainage Cardiovascular: Denies: Chest Pain, Palpitations Respiratory: Denies: Cough, Shortness of breath at rest, Sputum production Gastrointestinal: Denies: Abdominal Pain, Nausea, Vomiting Genitourinary: Denies: Dysuria Musculoskeletal: Denies: Joint Pain, Joint Tenderness Skin: Reports: - - Left lower extremity wound, present on admission Neurological: Reports: Balance problems. Denies: Focal weakness, Numbness, Tingling Psychiatric: Denies: Anxiety, Depression, Homicidal Ideations, Suicidal Ideations Hematologic/ Lymphatic: Denies: Easy Bruising, Easy Bleeding VTE Information - Inpt Only VTE Present on Admission: No VTE Mechan Device Prophylaxis: None VTE Pharm Prophylaxis ordered?: Yes - Physical Exam Vitals/I&O's: Vital Signs Temp Pulse Resp BP Pulse Ox 97 F L 74 22 H 157/90 H 95 01/08/20 16:14 01/08/20 16:14 01/08/20 16:14 01/08/20 16:14 01/08/20 16:14 Oxygen Delivery Method Room Air Weight: 170 lb Body Mass Index (BMI) 25.8 General: Alert, Oriented x3, Cooperative HEENT: Atraumatic, PERRLA, EOMI, Normocephalic Neck: Supple, No JVD, Negative Carotid Bruits Lungs: Clear to auscultation, Normal air movement Cardiovascular: Regular rate, No murmurs Abdomen: Bowel Sounds Present, Soft, Non Tender, Non-Distended Extremities: No clubbing, No cyanosis, No edema, Capillary Refill Less than 3 Seconds Skin: - - Left lower extremity wound, wound VAC in place wrapped with Percy wrap Musculoskeletal: No Tenderness to Palpation of Joints or Extremities Neurological: Cranial nerves II-XII grossly intact, Neuro grossly intact Psych/Mental Status: Normal Affect, Appropriate Laboratory Results 01/08/20 15:20: WBC 5.2, RBC 3.70 L, Hgb 12.2, Hct 38.4, MCV 103.8 H, MCH 33.0 H, MCHC 31.8 L, RDW Std Deviation 56.3 H, RDW Coeff of Marylu 14.8 H, Plt Count 163, MPV 9.3, Immature Gran % (Auto) 2.700 H, Neut % (Auto) 74.2 H, Lymph % (Auto) 9.1 L, [place] % (Auto) 12.0 H, Eos % (Auto) 1.0, Baso % (Auto) 1.0, Absolute Neuts (auto) 3.8, Absolute Lymphs (auto) 0.47 L, Nucleated RBC % 0, Differential Comment SCANNED 01/08/20 15:20: Troponin I < 0.015 01/08/20 15:20: Sodium Pending, Potassium Pending, Chloride Pending, Carbon Dioxide Pending, Anion Gap Pending, BUN Pending, Creatinine Pending, Est GFR (MDRD) Af Amer Pending, Est GFR (MDRD) Non-Af Pending, BUN/Creatinine Ratio Pending, Glucose Pending, Calcium Pending 01/08/20 16:00: Urine Color Yellow, Urine Clarity Sl. Cloudy, Urine pH 6.0, Ur Specific [place] 1.020, Urine Protein Negative, Urine Glucose (UA) Normal, Urine Ketones Negative, Urine Occult Blood Negative, Urine Nitrite Negative, Urine Bilirubin Negative, Urine Urobilinogen Normal, Ur Leukocyte Esterase Negative, Urine RBC 0 SEEN, Urine WBC 0-5 SEEN, Ur Squamous Epith Cells 0-5 SEEN, Amorphous Sediment 1+ URATE, Urine Bacteria 0 SEEN, Urine Mucus 0 SEEN Assessment/Plan All Active Problems (Last Updated 12/16/17 @ 17:[address] Sari Hawk DO) Ulcer of upper extremity (Acute) 1. Chronic nonhealing ulcer of the left lower extremity with failed skin graft-recent incision and drainage and evacuation traumatic hematoma left anterolateral leg by Dr. Moya 01/04/2020. Fell at home and wound VAC was removed from her leg. She states the wound VAC became tangled in her Rollator. She was recommended again for SNF placement however she declined and signed out AGAINST MEDICAL ADVICE from emergency room. Continue previously prescribed Keflex to complete course. 2. Glioblastoma status post craniotomy-brain CT without acute abnormality. 3. Chronic pain-PRN pain regimen. 4. History of seizure-continue Keppra regimen. 5. Depression/anxiety-continue sertraline, Seroquel. DVT prophylaxis-Lovenox subcu This patient was seen by CHARLES Drew under the supervision of Dr. Elkins. <Ute Elkins - Last Filed: 01/08/20 20:24> History of Present Illness The patient is a 59 year old F [] Past Medical History Medical History: Medical History (Last Updated 12/16/17 @ 17:[address] Sari Hawk DO) Other complications of skin graft (allograft) (autograft) (Acute) T86.828 Failed skin graft (Acute) T86.821 Ulcers of both lower legs (Chronic) L97.919, L97.929 multiple infected ulcers bilateral legs L97.919 Allergies adhesive tape Adverse Reaction (Verified 01/08/20 13:54) VERY THIN STEROID SKIN WILL REMOVE SKIN IF ON TOO LONG - Physical Exam Vitals/I&O's: Vital Signs Temp Pulse Resp BP Pulse Ox 97 F L 69 18 130/82 H 97 01/08/20 19:54 01/08/20 19:54 01/08/20 19:54 01/08/20 19:54 01/08/20 19:54 Oxygen Delivery Method Room Air Weight: 77.111 kg Body Mass Index (BMI) 25.8 Laboratory Results 01/08/20 15:20: WBC 5.2, RBC 3.70 L, Hgb 12.2, Hct 38.4, MCV 103.8 H, MCH 33.0 H, MCHC 31.8 L, RDW Std Deviation 56.3 H, RDW Coeff of Marylu 14.8 H, Plt Count 163, MPV 9.3, Immature Gran % (Auto) 2.700 H, Neut % (Auto) 74.2 H, Lymph % (Auto) 9.1 L, [place] % (Auto) 12.0 H, Eos % (Auto) 1.0, Baso % (Auto) 1.0, Absolute Neuts (auto) 3.8, Absolute Lymphs (auto) 0.47 L, Nucleated RBC % 0, Differential Comment SCANNED 01/08/20 15:20: Troponin I < 0.015 01/08/20 15:20: Sodium 142, Potassium 3.6, Chloride 105, Carbon Dioxide 30.0, Anion Gap 7, BUN 17, Creatinine 0.81, Estim Creat Clear Calc 73.57, Est GFR (MDRD) Af Amer 92, Est GFR (MDRD) Non-Af 76, BUN/Creatinine Ratio 20.9 H, Glucose 93, Calcium 9.2 01/08/20 16:00: Urine Color Yellow, Urine Clarity Sl. Cloudy, Urine pH 6.0, Ur Specific [place] 1.020, Urine Protein Negative, Urine Glucose (UA) Normal, Urine Ketones Negative, Urine Occult Blood Negative, Urine Nitrite Negative, Urine Bilirubin Negative, Urine Urobilinogen Normal, Ur Leukocyte Esterase Negative, Urine RBC 0 SEEN, Urine WBC 0-5 SEEN, Ur Squamous Epith Cells 0-5 SEEN, Amorphous Sediment 1+ URATE, Urine Bacteria 0 SEEN, Urine Mucus 0 SEEN Current Medications Acetaminophen (Tylenol) 1,000 mg PO BID [facility] Acetaminophen (Tylenol) 650 mg PO Q6H PRN PRN PRN Reason: Pain Score 1-10/Temp > 100.7 F Cyanocobalamin (Vitamin B12) 500 mcg PO DAILY@0800 [facility] Dexamethasone (Decadron) 3 mg PO DAILY@0800 [facility] Famotidine (Pepcid) 20 mg PO BID [facility] Heparin Sodium (Porcine) (Heparin Na) 5,000 unit SC Q8 [facility] Sodium Chloride () 1,000 mls @ 75 mls/hr IV .[id number] [facility] Stop: 01/09/20 09:21 Levetiracetam (Keppra Tablet) 750 mg PO BID [facility] Melatonin (Melatonin) 6 mg PO QHS [facility] Multivitamins (Multivitamin) [facility] Ondansetron HCl (Zofran) 4 mg IV Q8H PRN PRN PRN Reason: NAUSEA/VOMITING Quetiapine Fumarate (Seroquel) 25 mg PO QHS [facility] Senna (Senokot) 1 tablet PO BID [facility] Sertraline HCl (Zoloft) 150 mg PO QHS [facility] Assessment/Plan This patient was seen in conjunction with Azeb Garcia STITCHING DEPARTMENT SUPERVISOR. I have independently interviewed and examined the patient and reviewed pertinent historical, laboratory, and other data. Please refer to her note for patient's presentation, findings, and recommendations. 59-year-old female with past medical history of glioblastoma status post craniotomy, on chemotherapy, and long-term dexamethasone presented after a fall. She has history of chronic nonhealing ulcer over the left leg and has had skin graft on both the left and right leg. Patient underwent surgical preparation of the left anterior lateral leg with incision and drainage and evacuation and excision of the fragment of a traumatic hematoma on 01/04/20. She was discharged on 01/07/20. Patient had a fall today and her wound VAC came off. She admits to having several falls. She was recommended to go to a fci during the recent admission but refused. Patient as well as her daughter are looking forward to patient being admitted to a fci for subacute rehab. Vitals were reviewed -stable Physical Exam: Gen: Comfortable, not pale, not jaundiced, alert oriented x3 CVS:HS I +II, regular, no murmurs RESP: CTA GI: BS present and normal, nontender, no palpable organs EXT: Lower leg is swollen, dressing placed, Percy wraps in place Labs reviewed: ASSESSMENT: 1. Debility, history of recurrent falls 2. Chronic nonhealing ulcer of the left lower extremity, status post recent I&D, evacuation of traumatic hematoma, status post wound VAC 3. Glioblastoma status post craniotomy 4. Chronic pain 5. Seizure disorder 6. Anxiety/depression 7. Dysphagia Meds reviewed Plan: Admit to Medr floor PT/OT/ST to evaluate Case management consult for discharge to long-term facility Wound RN consult Check orthostatic vitals now and in am OBSV E&M: [id number] Initial observation care L3
[2020-01-08 17:55] LABS: Anion Gap 7 (5-15); BUN 17 mg/dL (7-18); BUN/Creat Ratio 20.9 RATIO (10-20); Calcium,Total 9.2 mg/dL (8.5-10.1); Chloride 105 mmol/L (98-107); Creatinine, Serum 0.81 mg/dL (0.55-1.02); EST Glomerular Filtration Rate 76 mL/min (>60); Est Glom Filt Rate - Afr Amer 92 mL/min (>60); Estimated Creatinine Clearance 73.57 ml/min; Glucose 93 mg/dL (74-106); Potassium 3.6 mmol/L (3.5-5.1); Sodium Level 142 mmol/L (136-145)
--- NOTE | 2020-01-08 18:13 | ED.RN ---
spoke with pt's daughter, Chanelle regarding pt not wanting to stay. daughter will be in to talk with patient.
--- NOTE | 2020-01-08 21:27 | NURSING ---
Pt switched over from her wound vac to our hospital wound vac at 150 mmhg.
[2020-01-08] MEDS: 0.9% Saline Lock 10 ML Syringe IV (21:44)
[2020-01-08] MEDS: 0.9% Normal Saline 1,000 ML 75 ML IV (21:44)
[2020-01-08] MEDS: Heparin Injection (Vial) 5,000 UNIT/ML VIAL 5000 UNIT SC (21:45)
[2020-01-08] MEDS: Acetaminophen 500 MG Tablet 1000 MG PO (21:46)
[2020-01-08] MEDS: levETIRAcetam 750 MG Tablet PO (21:46)
[2020-01-08] MEDS: MELATONIN 3 MG TABLET 6 MG PO (21:47)
[2020-01-08] MEDS: Sertraline 50 MG Tablet 150 MG PO (21:47)
[2020-01-08] MEDS: Senna Tablet 1 TABLET PO (21:47)
[2020-01-08] MEDS: Famotidine 20 MG Tablet PO (21:48)
[2020-01-08] MEDS: QUEtiapine 25 MG Tablet PO (21:48)
[2020-01-09 03:23] VITALS: BP 148/83; PULSE 76; RESP 17; TEMP 37.1; O2SAT 93
[2020-01-09 06:05] LABS: Absolute Lymphocyte Count 0.56 X10^3/uL (0.83-4.51); Absolute Neutrophil Count 3.6 X10^3/uL (2.0-7.7); Basophil# 0.04 X10^3/uL; Basophil% 0.8 % (0-1); Eosinophil# 0.09 X10^3/uL; Eosinophils% 1.8 % (0-5); Hematocrit 36.7 % (37-47); Hemoglobin 11.5 g/dL (12.0-15.0); Lymphocyte # 0.56 X10^3/ul (4.0); Lymphocyte % 11.3 % (19-41); Mean Corp Hgb Conc 31.3 g/dL (32-36); Mean Corpuscular Volume 102.2 fL (81-99); Mean Platelet Vol. 9.6 fl (6.2-12.0); Monocyte# 0.52 X10^3/uL; Monocyte% 10.5 % (0-10); NRBC Flagged by Analyzer 0 % (0-5); Neutrophil # 3.59 X10^3/uL (2.7-7.7); Neutrophil % 72.8 % (47-70); POSITIVE DIFFERENTIAL YES; Platelet Count 161 K/mm3 (150-450); RBC Distribution Width CV 14.7 % (11.6-14.6); RBC Distribution Width SD 55.8 fl (35.1-43.9); Red Blood Count 3.59 M/mm3 (4.2-5.4); White Blood Count 4.9 K/mm3 (4.4-11.0)
[2020-01-09 06:14] LABS: Differential Indicated SCAN CRITERIA MET
[2020-01-09 06:27] LABS: AST(SGOT) 23 U/L (15-37); Alanine Aminotransfer ALT/SGPT 26 U/L (13-56); Albumin, Serum 3.1 g/dL (3.2-5.0); Alkaline Phosphatase 82 U/L (45-117); Anion Gap 4 (5-15); BUN 13 mg/dL (7-18); BUN/Creat Ratio 15.2 RATIO (10-20); Calcium,Total 8.8 mg/dL (8.5-10.1); Chloride 105 mmol/L (98-107); Creatinine, Serum 0.85 mg/dL (0.55-1.02); EST Glomerular Filtration Rate 72 mL/min (>60); Est Glom Filt Rate - Afr Amer 87 mL/min (>60); Estimated Creatinine Clearance 70.11 ml/min; Glucose 87 mg/dL (74-106); Potassium 4.4 mmol/L (3.5-5.1); Protein, Total 6.1 g/dL (6.4-8.2); Sodium Level 140 mmol/L (136-145)
[2020-01-09] MEDS: Heparin Injection (Vial) 5,000 UNIT/ML VIAL 5000 UNIT SC ×3 (06:43→21:36)
[2020-01-09 06:53] LABS: Differential Comment SCANNED
[2020-01-09] MEDS: Ondansetron 4 MG/2 ML Vial IV (08:14)
[2020-01-09] MEDS: Acetaminophen 500 MG Tablet 1000 MG PO ×2 (08:17→21:37)
[2020-01-09] MEDS: levETIRAcetam 750 MG Tablet PO ×2 (08:18→21:38)
[2020-01-09] MEDS: Cyanocobalamin 500 MCG Tablet PO (08:18)
[2020-01-09] MEDS: Multivitamins,Therapeutic Tablet 1 TABLET PO (08:18)
[2020-01-09] MEDS: Famotidine 20 MG Tablet PO ×2 (08:19→21:37)
[2020-01-09] MEDS: Senna Tablet 1 TABLET PO ×3 (08:19→21:38)
[2020-01-09 08:29] VITALS: BP 138/91; PULSE 83; RESP 16; TEMP 36.9; O2SAT 94
--- NOTE | 2020-01-09 11:02 | NURSING ---
spoke with daughter update given
[2020-01-09 11:10] VITALS: BP 106/73; PULSE 75; RESP 16; TEMP 36.3; O2SAT 95
[2020-01-09 12:44] VITALS: BP 107/63; BP 116/65; BP 96/68; PULSE 69; PULSE 71; PULSE 75
--- NOTE | 2020-01-09 13:09 | PN_ITS ---
<Azeb Garcia - Last Filed: 01/09/20 13:14> Subjective: Patient seen and examined. No acute events overnight. Agreeable to rehab given wound VAC and recurrent falls. - Physical Exam Vitals/I&O's: Vital Signs Temp Pulse Resp BP Pulse Ox 97.3 F L 69 16 107/63 95 01/09/20 11:10 01/09/20 12:44 01/09/20 11:10 01/09/20 12:44 01/09/20 11:10 Oxygen Delivery Method Room Air Weight: 211 lb 10.3 oz Body Mass Index (BMI) 32.4 Orthostatic Vital Signs Start: 01/09/20 01:08 Freq: q24h Status: Active Protocol: Activity Type Activity Date Activity User E-Sign Co-Sign Detail Recorded Client Recorded Date Recorded By Document 01/09/20 12:44 TDW [id number] 01/09/20 12:45 TDW 01/09/20 12:44 Orthostatic Vitals Standing -Blood Pressure (90/60-120/80) 96/68 -Extremity Use Right Arm -Pulse Rate (60-100) 75 Sitting -Blood Pressure (90/60-120/80) 116/65 -Extremity Use Right Arm -Pulse Rate (60-100) 71 Lying -Blood Pressure (90/60-120/80) 107/63 -Extremity Use Right Arm -Pulse Rate (60-100) 69 Intake and Output for Last 24 Hours 01/07/20 01/08/20 01/09/20 23:59 23:59 23:59 Intake Total 1550 / 1550 Output Total 350 / 350 Balance 1200 / 1200 General: Alert, Oriented x3, Cooperative HEENT: Atraumatic, PERRLA, EOMI, Normocephalic Neck: Supple, No JVD, Negative Carotid Bruits Lungs: Clear to auscultation, Normal air movement Cardiovascular: Regular rate, No murmurs Abdomen: Bowel Sounds Present, Soft, Non Tender Extremities: No clubbing, No cyanosis, No edema, Capillary Refill Less than 3 Seconds Skin: - - Left lower extremity wound, wound VAC in place wrapped with Percy wrap Musculoskeletal: No Tenderness to Palpation of Joints or Extremities Neurological: Cranial nerves II-XII grossly intact, Neuro grossly intact Psych/Mental Status: Normal Affect, Appropriate Laboratory Results 01/08/20 15:20: WBC 5.2, RBC 3.70 L, Hgb 12.2, Hct 38.4, MCV 103.8 H, MCH 33.0 H , MCHC 31.8 L, RDW Std Deviation 56.3 H, RDW Coeff of Marylu 14.8 H, Plt Count 163, MPV 9.3, Immature Gran % (Auto) 2.700 H, Neut % (Auto) 74.2 H, Lymph % (Auto) 9.1 L, [place] % (Auto) 12.0 H, Eos % (Auto) 1.0, Baso % (Auto) 1.0, Absolute Neuts (auto) 3.8, Absolute Lymphs (auto) 0.47 L, Nucleated RBC % 0, Differential Comment SCANNED 01/08/20 15:20: Troponin I < 0.015 01/08/20 15:20: Sodium 142, Potassium 3.6, Chloride 105, Carbon Dioxide 30.0, Anion Gap 7, BUN 17, Creatinine 0.81, Estim Creat Clear Calc 73.57, Est GFR (MDRD) Af Amer 92, Est GFR (MDRD) Non-Af 76, BUN/Creatinine Ratio 20.9 H, Glucose 93, Calcium 9.2 01/08/20 16:00: Urine Color Yellow, Urine Clarity Sl. Cloudy, Urine pH 6.0, Ur S pecific Watrous 1.020, Urine Protein Negative, Urine Glucose (UA) Normal, Urine Ketones Negative, Urine Occult Blood Negative, Urine Nitrite Negative, Urine Bilirubin Negative, Urine Urobilinogen Normal, Ur Leukocyte Esterase Negative, Urine RBC 0 SEEN, Urine WBC 0-5 SEEN, Ur Squamous Epith Cells 0-5 SEEN, Amorphous Sediment 1+ URATE, Urine Bacteria 0 SEEN, Urine Mucus 0 SEEN 01/09/20 05:50: WBC 4.9, RBC 3.59 L, Hgb 11.5 L, Hct 36.7 L, MCV 102.2 H, MCH 32.0, MCHC 31.3 L, RDW Std Deviation 55.8 H, RDW Coeff of Marylu 14.7 H, Plt Count 161, MPV 9.6, Immature Gran % (Auto) 2.800 H, Neut % (Auto) 72.8 H, Lymph % (Auto) 11.3 L, [place] % (Auto) 10.5 H, Eos % (Auto) 1.8, Baso % (Auto) 0.8, Absolute Neuts (auto) 3.6, Absolute Lymphs (auto) 0.56 L, Nucleated RBC % 0, Differential Comment SCANNED 01/09/20 05:50: Sodium 140, Potassium 4.4, Chloride 105, Carbon Dioxide 31.0, Anion Gap 4 L, BUN 13, Creatinine 0.85, Estim Creat Clear Calc 70.11, Est GFR (MDRD) Af Amer 87, Est GFR (MDRD) Non-Af 72, BUN/Creatinine Ratio 15.2, Glucose 87, Calcium 8.8, Total Bilirubin 0.40, AST 23, ALT 26, Alkaline Phosphatase 82, Total Protein 6.1 L, Albumin 3.1 L, Globulin 3.0, Albumin/Globulin Ratio 1.0 Current Medications Acetaminophen (Tylenol) 1,000 mg PO BID [facility] Last Admin: 01/09/20 08:17 Dose: 1,000 mg Documented by: Cyanocobalamin (Vitamin B12) 500 mcg PO DAILY@0800 [facility] Last Admin: 01/09/20 08:18 Dose: 500 mcg Documented by: Dexamethasone (Decadron) 3 mg PO DAILY@0800 [facility] Last Admin: 01/09/20 08:18 Dose: 3 mg Documented by: Famotidine (Pepcid) 20 mg PO BID [facility] Last Admin: 01/09/20 08:19 Dose: 20 mg Documented by: Heparin Sodium (Porcine) (Heparin Na) 5,000 unit SC Q8 [facility] Last Admin: 01/09/20 06:43 Dose: 5,000 unit Documented by: Levetiracetam (Keppra Tablet) 750 mg PO BID [facility] Last Admin: 01/09/20 08:18 Dose: 750 mg Documented by: Melatonin (Melatonin) 6 mg PO QHS [facility] Last Admin: 01/08/20 21:47 Dose: 6 mg Documented by: Multivitamins ([facility]itamin) [facility] Last Admin: 01/09/20 08:18 Dose: 1 tablet Documented by: Nutritional Formula (Rodger - [place] Flavor) [facility] Ondansetron HCl (Zofran) 4 mg IV Q8H PRN PRN PRN Reason: NAUSEA/VOMITING Last Admin: 01/09/20 08:14 Dose: 4 mg Documented by: Quetiapine Fumarate (Seroquel) 25 mg PO QHS [facility] Last Admin: 01/08/20 21:48 Dose: 25 mg Documented by: Senna (Senokot) 1 tablet PO BID [facility] Last Admin: 01/09/20 08:19 Dose: 1 tablet Documented by: Sertraline HCl (Zoloft) 150 mg PO QHS [facility] Last Admin: 01/08/20 21:47 Dose: 150 mg Documented by: Sodium Chloride () 10 - 40 ml IV UD PRN PRN Reason: SALINE FLUSH Last Admin: 01/08/20 21:44 Dose: 10 ml Documented by: Medical Necessity - Tobacco Use Smoking Status: Former smoker Assessment/Plan All Active Problems (Last Updated 12/16/17 @ 17:[address] Sari Hawk, DO) Ulcer of upper extremity (Acute) 1. 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 Moya 01/04/2020. Fell at home and wound VAC was removed from her leg. She states the wound VAC became tangled in her Rollator. Continue previously prescribed Keflex to complete course. Plan for SNF pending acceptance. 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 2. Debility with recurrent falls- PT/OT. SNF pending acceptance. Fall precautions. 3. Dysphagia-speech therapy consult. 4. Glioblastoma status post craniotomy-brain CT without acute abnormality. Given recurrent falls and intermittent confusion, will obtain MRI brain. 5. Chronic pain-PRN pain regimen. 6. History of seizure-continue Keppra regimen. 7. Depression/anxiety-continue sertraline, Seroquel. DVT prophylaxis-Lovenox subcu Discharge planning: SNF pending acceptance. This patient was seen by CHARLES Drew under the supervision of Dr. Mora. <Glynn Mora F - Last Filed: 01/09/20 15:26> - Physical Exam Vitals/I&O's: Vital Signs Temp Pulse Resp BP Pulse Ox 97.3 F L 69 16 107/63 95 01/09/20 11:10 01/09/20 12:44 01/09/20 11:10 01/09/20 12:44 01/09/20 11:10 Oxygen Delivery Method Room Air Weight: 211 lb 10.3 oz Body Mass Index (BMI) 32.4 Orthostatic Vital Signs Start: 01/09/20 01:08 Freq: q24h Status: Active Protocol: Activity Type Activity Date Activity User E-Sign Co-Sign Detail Recorded Client Recorded Date Recorded By Document 01/09/20 12:44 TDW [id number] 01/09/20 12:45 TDW 01/09/20 12:44 Orthostatic Vitals Standing -Blood Pressure (90/60-120/80) 96/68 -Extremity Use Right Arm -Pulse Rate (60-100) 75 Sitting -Blood Pressure (90/60-120/80) 116/65 -Extremity Use Right Arm -Pulse Rate (60-100) 71 Lying -Blood Pressure (90/60-120/80) 107/63 -Extremity Use Right Arm -Pulse Rate (60-100) 69 Intake and Output for Last 24 Hours 01/07/20 01/08/20 01/09/20 23:59 23:59 23:59 Intake Total 1550 / 1550 Output Total 350 / 350 Balance 1200 / 1200 Laboratory Results 01/08/20 15:20: WBC 5.2, RBC 3.70 L, Hgb 12.2, Hct 38.4, MCV 103.8 H, MCH 33.0 H , MCHC 31.8 L, RDW Std Deviation 56.3 H, RDW Coeff of Marylu 14.8 H, Plt Count 163, MPV 9.3, Immature Gran % (Auto) 2.700 H, Neut % (Auto) 74.2 H, Lymph % (Auto) 9.1 L, [place] % (Auto) 12.0 H, Eos % (Auto) 1.0, Baso % (Auto) 1.0, Absolute Neuts (auto) 3.8, Absolute Lymphs (auto) 0.47 L, Nucleated RBC % 0, Differential Comment SCANNED 01/08/20 15:20: Troponin I < 0.015 01/08/20 15:20: Sodium 142, Potassium 3.6, Chloride 105, Carbon Dioxide 30.0, Anion Gap 7, BUN 17, Creatinine 0.81, Estim Creat Clear Calc 73.57, Est GFR (MDRD) Af Amer 92, Est GFR (MDRD) Non-Af 76, BUN/Creatinine Ratio 20.9 H, Glucose 93, Calcium 9.2 01/08/20 16:00: Urine Color Yellow, Urine Clarity Sl. Cloudy, Urine pH 6.0, Ur Specific Wat[place] 1.020, Urine Protein Negative, Urine Glucose (UA) Normal, Urine Ketones Negative, Urine Occult Blood Negative, Urine Nitrite Negative, Urine Bilirubin Negative, Urine Urobilinogen Normal, Ur Leukocyte Esterase Negative, Urine RBC 0 SEEN, Urine WBC 0-5 SEEN, Ur Squamous Epith Cells 0-5 SEEN, Amorphous Sediment 1+ URATE, Urine Bacteria 0 SEEN, Urine Mucus 0 SEEN 01/09/20 05:50: WBC 4.9, RBC 3.59 L, Hgb 11.5 L, Hct 36.7 L, MCV 102.2 H, MCH 32.0, MCHC 31.3 L, RDW Std Deviation 55.8 H, RDW Coeff of Marylu 14.7 H, Plt Count 161, MPV 9.6, Immature Gran % (Auto) 2.800 H, Neut % (Auto) 72.8 H, Lymph % (Auto) 11.3 L, [place] % (Auto) 10.5 H, Eos % (Auto) 1.8, Baso % (Auto) 0.8, Absolute Neuts (auto) 3.6, Absolute Lymphs (auto) 0.56 L, Nucleated RBC % 0, Differential Comment SCANNED 01/09/20 05:50: Sodium 140, Potassium 4.4, Chloride 105, Carbon Dioxide 31.0, Anion Gap 4 L, BUN 13, Creatinine 0.85, Estim Creat Clear Calc 70.11, Est GFR (MDRD) Af Amer 87, Est GFR (MDRD) Non-Af 72, BUN/Creatinine Ratio 15.2, Glucose 87, Calcium 8.8, Total Bilirubin 0.40, AST 23, ALT 26, Alkaline Phosphatase 82, Total Protein 6.1 L, Albumin 3.1 L, Globulin 3.0, Albumin/Globulin Ratio 1.0 Current Medications Acetaminophen (Tylenol) 1,000 mg PO BID [facility] Last Admin: 01/09/20 08:17 Dose: 1,000 mg Documented by: Cyanocobalamin (Vitamin B12) 500 mcg PO DAILY@0800 [facility] Last Admin: 01/09/20 08:18 Dose: 500 mcg Documented by: Dexamethasone (Decadron) 3 mg PO DAILY@0800 [facility] Last Admin: 01/09/20 08:18 Dose: 3 mg Documented by: Famotidine (Pepcid) 20 mg PO BID [facility] Last Admin: 01/09/20 08:19 Dose: 20 mg Documented by: Heparin Sodium (Porcine) (Heparin Na) 5,000 unit SC Q8 [facility] Last Admin: 01/09/20 06:43 Dose: 5,000 unit Documented by: Levetiracetam (Keppra Tablet) 750 mg PO BID [facility] Last Admin: 01/09/20 08:18 Dose: 750 mg Documented by: Melatonin (Melatonin) 6 mg PO QHS [facility] Last Admin: 01/08/20 21:47 Dose: 6 mg Documented by: Multivitamins (Multivitamin) [facility] Last Admin: 01/09/20 08:18 Dose: 1 tablet Documented by: Nutritional Formula (Rodger - [place] Flavor) [facility] Ondansetron HCl (Zofran) 4 mg IV Q8H PRN PRN PRN Reason: NAUSEA/VOMITING Last Admin: 01/09/20 08:14 Dose: 4 mg Documented by: Quetiapine Fumarate (Seroquel) 25 mg PO QHS [facility] Last Admin: 01/08/20 21:48 Dose: 25 mg Documented by: Senna (Senokot) 1 tablet PO BID [facility] Last Admin: 01/09/20 08:19 Dose: 1 tablet Documented by: Sertraline HCl (Zoloft) 150 mg PO QHS [facility] Last Admin: 01/08/20 21:47 Dose: 150 mg Documented by: Sodium Chloride () 10 - 40 ml IV UD PRN PRN Reason: SALINE FLUSH Last Admin: 01/08/20 21:44 Dose: 10 ml Documented by: Addendum: Dr. Mora I personally examined the patient and reviewed the chart. I agree with the above. 59-year-old female who was recently discharged home with a left lower extremity wound and a wound VAC in place presents from home after a fall. Prior to her discharge there is extensive discussion of being sent to a long term facility however she felt she could manage at home. This fall was mechanical in nature and did remove the wound VAC from the wound. Left PT/OT evaluate her and try to get her into a long term facility as she will definitely need this in order to be able to be safe to go home. She is agreeable to this at this time. We will also repeat an MRI of her head given her history of a resected glioblastoma. Inpatient E&M: 22166 Subs Hosp L2
--- NOTE | 2020-01-09 13:14 | MRI_ITS ---
STUDY: MRI BRAIN WITH AND WITHOUT CONTRAST REASON FOR EXAM: Female, 59 years old. frequent falls and intermittent confusion, h/o glioblastoma/craniotomy 2015 TECHNIQUE: Standardized multiplanar fat and water weighted pulse sequences were obtained. IV Yes YES was administered for the contrast portion of the examination. COMPARISON: CT of the brain January 08, 2020 FINDINGS: Mild atrophy and advanced white matter ischemic changes possibly on the basis of prior radiation.. Postsurgical changes status post right parietal craniotomy. There is a tiny subdural effusion at the operative site. There is an irregular thin-walled rim-enhancing mass demonstrating focal calcifications and minor hemosiderin in the right parietal lobe with vasogenic edema and effacement of the neighboring cortical sulci measuring approximately 4.3 x 5.3 x 2.9 cm which may be consistent with residual or recurrent neoplasm. Normal bilateral basal ganglia. Normal thalami. There is no extra-axial fluid accumulation. Normal flow voids within the major intracranial circulation suggesting patency by spin echo criteria. Normal venous enhancement. There is no enhancing intra-axial or extra-axial abnormality. Normal sella turcica, pituitary gland, infundibular stalk, optic chiasm and hypothalamus. Normal tectal plate and pineal gland. Normal midbrain, kamilla and medulla. Normal cerebellum. Normal basal cisterns. Normal bilateral temporal bones. Normal bilateral internal auditory canals. No demonstrated orbital abnormality, within the constraints of a routine brain study. Normal visualized paranasal sinuses. Normal calvarium and skull base. Normal visualized soft tissue structures. Normal visualized upper cervical spine. MRI/Brain W/WO Contrast IMPRESSION: Postsurgical changes and possible postradiation changes status post right parietal craniotomy. Findings which may be consistent with residual or recurrent glioblastoma in the right parietal lobe measuring approximately 4.3 x 3.3 x 2.9 cm. Clinical correlation is recommended Electronically Signed: Gordon Mckinley MD at 16:31 EDT , Service support ,
--- NOTE | 2020-01-09 14:04 | CASEMGMT ---
Social Work Note SW in to speak with pt regarding discharge plans. SW introduced self and role at [facility]. Pt is alert and orientated x3. Pt confirms that she was at home and tripped over the wound vac cord. Pt states that she thought she was doing well at home. SW informed pt that it is being recommended that pt goes to SNF for short term rehabilitation. Pt states that she was at [facility] TCU before and asked about TCU. SW explained that this worker will need to check on beds. Pt states understanding. SW placed a call to [facility] in TCU. [facility] states she has no beds available. SW back in to speak with pt. SW updated pt that TCU doesn't have any beds available at this time. Pt states well I am not sure, I will need to talk to my daughter Marine. SW provided pt with list of SNF that accept pt's insurance. RN updated this worker that Marine as an appointment at 3:00pm and then will be coming to [facility] after the appointment. JOZEF did place a call to pt's daughter Marine as SW received referral that Marine was interested in information regarding guardianship for pt. JOZEF introduced self and role at [facility]. Marine states that pt does really need to go to SNF for therapy as pt wasn't home that long and pt was weak and not getting up all that great. JOZEF explained that pt will need to be agreeable as pt is own person and is alert and orientated x3. 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 Marine states she had the conversation with pt going to SNF the other day and pt was agreeable but then a few minutes after pt would change her mind. Marine confirms that she will be at [facility] later today and will speak to pt regarding SNF. JOZEF explained guardianship process for pt. Marine states that pt's niece Andra works in admissions at [facility] and she has been in contact with her regarding pt and [facility] the first choice for SNF. Marine states that if [facility] is not able to accept then she stated pt has stayed at [facility] for therapy before and would want pt to stay at [facility] again for therapy. Marine states that this worker is able to send referral to [facility]. JOZEF back in to speak with pt. SW updated pt that this worker spoke with daughter Marine and Marine would like pt to go to [facility] where her niece works. Pt agreeable to [facility]. SW placed a call to Andra at [facility], provided referral. SW faxed referral. JOZEF placed a call to Yael at [facility] and updated her that pt is back at [facility]. Plan: SNF pending acceptance and pre-cert. Pricilla Cintron SALESPERSON SEWING MACHINES, REGISTERED PHARMACY TECHNICIAN
--- NOTE | 2020-01-09 14:21 | NURSING ---
pt to mri, wound vac clamped for test
--- NOTE | 2020-01-09 15:40 | CASEMGMT ---
Social Work Note SW received call from Trinh at [facility] stating they are able to accept and will submit for pre-cert. Physician updated pt will need COVID test. Plan: [facility] pending pre-cert Pricilla Cintron REPORTING DEVELOPER, AUTOMOTIVE ELECTRICAL FITTER
[2020-01-09 15:55] VITALS: BP 112/67; PULSE 57; RESP 16; TEMP 36.9; O2SAT 93
--- NOTE | 2020-01-09 16:08 | PCA ---
pt off floor
[2020-01-09 17:30] LABS: Probe Check PASS; Specimen Processing Control PASS
[2020-01-09] MEDS: Sertraline 50 MG Tablet 150 MG PO (21:37)
[2020-01-09] MEDS: MELATONIN 3 MG TABLET 6 MG PO (21:38)
[2020-01-09] MEDS: QUEtiapine 25 MG Tablet PO (21:38)
[2020-01-09 21:57] VITALS: BP 124/73; PULSE 68; RESP 17; TEMP 36.5; O2SAT 95
[2020-01-10] VITALS (7 sets, daily range): BP systolic 96–122; BP diastolic 61–79; PULSE 62–91; RESP 16–18; TEMP 36.6–37; O2SAT 94–98
--- NOTE | 2020-01-10 04:00 | NURSING ---
Brain MRI results from 01/08 Stated Findings which may be consistent with residual or recurrent glioblastoma in the right parietal lobe relayed to hospitalist to be sure physician was aware.
[2020-01-10] MEDS: Heparin Injection (Vial) 5,000 UNIT/ML VIAL 5000 UNIT SC ×3 (05:42→22:30)
--- NOTE | 2020-01-10 08:26 | NURSING ---
Pt may possibly get discharged to the [facility] today. plan to wait to change the wound VAC until tomorrow anyway to get patient back on a [id number]ewp[facility] schedule. Pt still somewhat confused and forgetful this am. wound VAC dressing is intact with good seal noted at 150mmHg low continuous suction.
[2020-01-10] MEDS: Multivitamins,Therapeutic Tablet 1 TABLET PO (09:10)
[2020-01-10] MEDS: Acetaminophen 500 MG Tablet 1000 MG PO ×2 (09:10→22:32)
[2020-01-10] MEDS: Famotidine 20 MG Tablet PO ×2 (09:10→22:31)
[2020-01-10] MEDS: levETIRAcetam 750 MG Tablet PO ×2 (09:10→22:32)
[2020-01-10] MEDS: Cyanocobalamin 500 MCG Tablet PO (09:10)
--- NOTE | 2020-01-10 12:37 | PCM.PN.HOSP ---
<Oren Ireland - Last Filed: 01/10/20 12:37> Reason for Visit: Ongoing weakness however pt ambulated with therapy. Gait reported to be with poor balance. Pt without feve/chills/cough/sob. No TRUONG/Dizziness/LH. Vitals/I&O's: Vital Signs Temp Pulse Resp BP Pulse Ox 98.6 F 69 18 114/66 98 01/10/20 08:51 01/10/20 08:51 01/10/20 09:00 01/10/20 08:51 01/10/20 08:51 Oxygen Delivery Method Room Air Weight: 211 lb 12.8 oz Body Mass Index (BMI) 32.4 Orthostatic Vital Signs Start: 01/09/20 01:08 Freq: q24h Status: Active Protocol: Activity Type Activity Date Activity User E-Sign Co-Sign Detail Recorded Client Recorded Date Recorded By Document 01/09/20 12:44 TDW [id number] 01/09/20 12:45 TDW 01/09/20 12:44 Orthostatic Vitals Standing -Blood Pressure (90/60-120/80) 96/68 -Extremity Use Right Arm -Pulse Rate (60-100) 75 Sitting -Blood Pressure (90/60-120/80) 116/65 -Extremity Use Right Arm -Pulse Rate (60-100) 71 Lying -Blood Pressure (90/60-120/80) 107/63 -Extremity Use Right Arm -Pulse Rate (60-100) 69 Intake and Output for Last 24 Hours 01/08/20 01/09/20 01/10/20 23:59 23:59 23:59 Intake Total 1950 / 1950 890 / 890 Output Total 350 / 350 Balance 1600 / 1600 890 / 890 General: Alert, Oriented x3, Cooperative HEENT: Atraumatic, PERRLA, EOMI, Normocephalic Neck: Supple, No JVD, Negative Carotid Bruits Lungs: Clear to auscultation, Normal air movement Cardiovascular: Regular rate, No murmurs Abdomen: Bowel Sounds Present, Soft, Non Tender Extremities: No edema, Capillary Refill Less than 3 Seconds Skin: No rashes, No breakdown Musculoskeletal: No Tenderness to Palpation of Joints or Extremities Neurological: Cranial nerves II-XII grossly intact Psych/Mental Status: Normal Affect, Appropriate, Alert and oriented to time, place, person, mood and affect Laboratory Results 01/09/20 15:15: COVID-19 (JANET) Negative Current Medications Acetaminophen (Tylenol) 1,000 mg PO BID [facility] Last Admin: 01/10/20 09:10 Dose: 1,000 mg Documented by: Cyanocobalamin (Vitamin B12) 500 mcg PO DAILY@0800 [facility] Last Admin: 01/10/20 09:10 Dose: 500 mcg Documented by: Dexamethasone (Decadron) 3 mg PO DAILY@0800 [facility] Last Admin: 01/10/20 09:10 Dose: 3 mg Documented by: Famotidine (Pepcid) 20 mg PO BID [facility] Last Admin: 01/10/20 09:10 Dose: 20 mg Documented by: Heparin Sodium (Porcine) (Heparin Na) 5,000 unit SC Q8 [facility] Last Admin: 01/10/20 05:42 Dose: 5,000 unit Documented by: Levetiracetam (Keppra Tablet) 750 mg PO BID [facility] Last Admin: 01/10/20 09:10 Dose: 750 mg Documented by: Melatonin (Melatonin) 6 mg PO QHS [facility] Last Admin: 01/09/20 21:38 Dose: 6 mg Documented by: [facility] Admin: 01/10/20 09:10 Dose: 1 tablet Documented by: Nutritional Formula (Rodger - [place] Flavor) [facility] Last Admin: 01/10/20 09:09 Dose: 1 packet Documented by: Nutritional Formula (Lactose Free) (Ensure Enlive) 120 ml PO 4X/DAY [facility] Last Admin: 01/10/20 09:13 Dose: 120 ml Documented by: Ondansetron HCl (Zofran) 4 mg IV Q8H PRN PRN PRN Reason: NAUSEA/VOMITING Last Admin: 01/09/20 08:14 Dose: 4 mg Documented by: Quetiapine Fumarate (Seroquel) 25 mg PO QHS [facility] Last Admin: 01/09/20 21:38 Dose: 25 mg Documented by: Senna (Senokot) 1 tablet PO BID [facility] Last Admin: 01/09/20 21:38 Dose: 1 tablet Documented by: Sertraline HCl (Zoloft) 150 mg PO QHS [facility] Last Admin: 01/09/20 21:37 Dose: 150 mg Documented by: Sodium Chloride () 10 - 40 ml IV UD PRN PRN Reason: SALINE FLUSH Last Admin: 01/08/20 21:44 Dose: 10 ml Documented by: STROKE Vital Signs/Narrative: Vital Signs Temp Pulse Resp BP Pulse Ox 01/10/20 09:00 18 01/10/20 08:51 98.6 F 69 16 114/66 98 Medical Necessity - Tobacco Use Smoking Status: Former smoker Assessment/Plan All Active Problems (Last Updated 12/16/17 @ 17:[address] Sari Hawk DO) Ulcer of upper extremity (Acute) 1. Debility - pt tripped at home and fell due to her wound vac. Poor balance with therapy. Continue PTOT. Plan for SNF if she obtains precert. UA neg. Covid Neg. Trop neg. 2. Hx Glioblastoma - MRI brain obtained as pt with poor balance and intermittent confusion. MRI brain with a lesion c/w glioblastoma. This may be a recurrent tumor. She will need close f/u with her neurosurgeon. Prior craniotomy. On decadron. 3. Dysphagia - ST evals 4. Hx seizure - keppra 5. Depression / anxiety - sertraline/seroquel/melatonin 6. LLE wound - continue vac, wound care consult. DVT ppx: heparin DC planning: awaiting precert. This patient was seen by Oren Ireland PA-C under the supervision of Dr. Mora <Glynn Mora F - Last Filed: 01/10/20 14:45> Vitals/I&O's: Vital Signs Temp Pulse Resp BP Pulse Ox 98.6 F 69 18 114/66 98 01/10/20 08:51 01/10/20 08:51 01/10/20 09:00 01/10/20 08:51 01/10/20 08:51 Oxygen Delivery Method Room Air Weight: 211 lb 12.8 oz Body Mass Index (BMI) 32.4 Orthostatic Vital Signs Start: 01/09/20 01:08 Freq: q24h Status: Active Protocol: Activity Type Activity Date Activity User E-Sign Co-Sign Detail Recorded Client Recorded Date Recorded By Document 01/09/20 12:44 TDW [id number] 01/09/20 12:45 TDW 01/09/20 12:44 Orthostatic Vitals Standing -Blood Pressure (90/60-120/80) 96/68 -Extremity Use Right Arm -Pulse Rate (60-100) 75 Sitting -Blood Pressure (90/60-120/80) 116/65 -Extremity Use Right Arm -Pulse Rate (60-100) 71 Lying -Blood Pressure (90/60-120/80) 107/63 -Extremity Use Right Arm -Pulse Rate (60-100) 69 Intake and Output for Last 24 Hours 01/08/20 01/09/20 01/10/20 23:59 23:59 23:59 Intake Total 1950 / 1950 890 / 890 Output Total 350 / 350 Balance 1600 / 1600 890 / 890 Laboratory Results 01/09/20 15:15: COVID-19 (JANET) Negative Current Medications Acetaminophen (Tylenol) 1,000 mg PO BID [facility] Last Admin: 01/10/20 09:10 Dose: 1,000 mg Documented by: Cyanocobalamin (Vitamin B12) 500 mcg PO DAILY@0800 [facility] Last Admin: 01/10/20 09:10 Dose: 500 mcg Documented by: Dexamethasone (Decadron) 3 mg PO DAILY@0800 [facility] Last Admin: 01/10/20 09:10 Dose: 3 mg Documented by: Famotidine (Pepcid) 20 mg PO BID [facility] Last Admin: 01/10/20 09:10 Dose: 20 mg Documented by: Heparin Sodium (Porcine) (Heparin Na) 5,000 unit SC Q8 [facility] Last Admin: 01/10/20 14:31 Dose: 5,000 unit Documented by: Levetiracetam (Keppra Tablet) 750 mg PO BID [facility] Last Admin: 01/10/20 09:10 Dose: 750 mg Documented by: Melatonin (Melatonin) 6 mg PO QHS [facility] Last Admin: 01/09/20 21:38 Dose: 6 mg Documented by: Multivit[facility] ([facility]itamin) [facility] Last Admin: 01/10/20 09:10 Dose: 1 tablet Documented by: Nutritional Formula (Rodger - [place] Flavor) [facility] Last Admin: 01/10/20 09:09 Dose: 1 packet Documented by: Nutritional Formula (Lactose Free) (Ensure Enlive) 120 ml PO 4X/DAY [facility] Last Admin: 01/10/20 14:30 Dose: 120 ml Documented by: Ondansetron HCl (Zofran) 4 mg IV Q8H PRN PRN PRN Reason: NAUSEA/VOMITING Last Admin: 01/09/20 08:14 Dose: 4 mg Documented by: Quetiapine Fumarate (Seroquel) 25 mg PO QHS [facility] Last Admin: 01/09/20 21:38 Dose: 25 mg Documented by: Senna (Senokot) 1 tablet PO BID [facility] Last Admin: 01/09/20 21:38 Dose: 1 tablet Documented by: Sertraline HCl (Zoloft) 150 mg PO QHS [facility] Last Admin: 01/09/20 21:37 Dose: 150 mg Documented by: Sodium Chloride () 10 - 40 ml IV UD PRN PRN Reason: SALINE FLUSH Last Admin: 01/08/20 21:44 Dose: 10 ml Documented by: Addendum: Dr. Mora I personally examined the patient and reviewed the chart. I agree with the above. 59-year-old female who was recently discharged home with a left lower extremity wound and a wound VAC in place presents from home after a fall. Prior to her discharge there is extensive discussion of being sent to a correction facility however she felt she could manage at home. This fall was mechanical in nature and did remove the wound VAC from the wound. Left PT/OT evaluate her and try to get her into a correction facility as she will definitely need this in order to be able to be safe to go home. She is agreeable to this at this time. Her MRI was repeated because the history of her glioblastoma and the issues with ambulation that have arisen, the MRI was read as possible recurrence of the glioblastoma. This was conveyed to both the patient and her daughter, she will need to follow-up with her neurosurgeon as an outpatient as soon as possible. Inpatient E&M: [id number] [facility] L2
--- NOTE | 2020-01-10 12:58 | CASEMGMT ---
Social Work Note SW placed a call to pt's daughter Marine and left message that pt has been accepted into [facility] and pre-cert is pending. Andra at [facility] was going to inform Marine of pt's out of network benefits. Plan: [facility] pending pre-cert Pricilla Cintron RAIL LOADER, SURVEY COORDINATOR
--- NOTE | 2020-01-10 13:24 | NURSING ---
Daughter called in and states that Oren Ireland left a message on her answering machine and she will have her phone with her. Asked this RN to ask him to call her when he has time. This RN texted Oren and notified him of same. Message was flagged as read.
--- NOTE | 2020-01-10 15:18 | CASEMGMT ---
Social Work Note JOZEF received message from Chanel at [facility] stating pt was denied. Peer to peer number is [phone]. JOZEF updated physician. JOZEF placed a call to pt's daughter Marine and updated that pt was denied. JOZEF educated Marine on the options of going to SNF under pending medicaid, which [facility] doesn't take pending medicaid so pt would need to go to different SNF, physician could do peer to peer if willing, or pt return home. Marine states she is in the process of [facility] and Medicaid but has concerns that if pt goes to SNF under pending medicaid and pt gets denied, they wouldn't be able to afford private pay for SNF. Marine asked about pt's wound vac about how long pt will have it, if there is a smaller one or if there are different options. Marine asked if physician would do peer to peer. JOZEF informed Marine that this worker will ask foreign service teacher nurse regarding wound care and then will ask physician regarding peer to peer. JOZEF spoke with foreign service teacher nurse. Per Anitha pt would at least have wound van for about a month. Only other option would be to see if Dr. Moya would allow silver dressing changes but those would likely need to be done daily and pt would heal faster with the wound vac. JOZEF updated physician regarding peer to peer. Physician states to schedule peer to peer. JOZEF placed a call to [facility] scheduling line. JOZEF spoke with Crystal at [facility]. Crystal scheduled peer to peer, states marked it urgent, [facility] physician will be calling physician at [facility]. JOZEF waiting for peer to peer results. Plan: TRENT Cintron CLERICAL ADVISER, MOBILE HOME LOT UTILITY WORKER
--- NOTE | 2020-01-10 16:05 | CASEMGMT ---
Social Work Note JOZEF updated by physician that peer to peer was denied. JOZEF and RN CM spoke with physician about discharge home tomorrow with HHC. JOZEF placed a call to pt's daughter Marine and updated her that peer to peer was denied. JOZEF explained options now are paying privately for SNF or returning home with HHC. Marine states that they can't afford private pay so pt will just return home with HHC. Marine states pt was getting HHC through [facility] so she prefers for HHC to be arranged through [facility] again. JOZEF updated RN TODD. SW in to update pt on denial and plan for home tomorrow with HHC. Pt agreeable. JOZEF placed a call to Chanel at [facility] and updated her Peer to peer was denied and pt will be returning home with HHC. Chanel states understanding. Plan: Home with [facility] tomorrow Pricilla Cintron REFINERY OPERATOR POLYMERIZATION PLANT, FACING CUTTING MACHINE OPERATOR
[2020-01-10] MEDS: Sertraline 50 MG Tablet 150 MG PO (22:31)
[2020-01-10] MEDS: QUEtiapine 25 MG Tablet PO (22:32)
[2020-01-10] MEDS: MELATONIN 3 MG TABLET 6 MG PO (22:32)
[2020-01-10] MEDS: Senna Tablet 1 TABLET PO (22:32)
[2020-01-11 05:18] VITALS: BP 124/72; PULSE 56; RESP 16; TEMP 36.8; O2SAT 93
[2020-01-11] MEDS: Heparin Injection (Vial) 5,000 UNIT/ML VIAL 5000 UNIT SC (05:23)
--- NOTE | 2020-01-11 08:17 | DCINST_ITS ---
- Discharge Diagnoses Current Active Problems: Current Active and Chronic Problems (Last Updated 12/16/17 @ 17:[address] Sari Hawk DO) Status post skin graft (Chronic) Frequent falls (Chronic) Debility, unspecified (Chronic) You will use the following diet at home:: Cardiac Your food should be the consistency of: Regular Your liquids should be the consistency of: Regular/Thin Discharge Activity: Return to Normal Activity Allergies/Adverse Reactions: Allergies adhesive tape Adverse Reaction (Verified 01/08/20 13:54) VERY THIN STEROID SKIN WILL REMOVE SKIN IF ON TOO LONG bee Allergy (Uncoded 01/08/20 20:22) Hives Medications to take at Discharge Dexamethasone 3 mg PO DAILY 03/02/17 Melatonin 6 mg PO QHS 01/03/20 Quetiapine Fumarate [Seroquel] 25 mg PO QHS 01/03/20 Senna [Senokot] 1 tab PO BID 01/03/20 Sertraline HCl [Zoloft] 150 mg PO QHS 01/03/20 Acetaminophen [Tylenol Extra Strength] 1,000 mg PO BID 01/08/20 Cyanocobalamin [Vitamin B12] 500 mcg PO DAILY@0800 01/08/20 Famotidine 20 mg PO BID 01/08/20 Levetiracetam [Keppra] 750 mg PO BID 01/08/20 Multivitamins,Therapeutic [Multivitamin] 1 tab PO DAILY 01/08/20 Primary Care Physician: Loc Arizmendi DO [Primary Care Provider] - Please follow up with your Primary Care Physician in: 1-2 weeks Test Results: Test results from this visit will be discussed in further detail at your follow- up appointment, if applicable. Please Follow Up With: Neurosurgeon When: 1-2 weeks Proposed Discharge Date: 01/11/20
--- NOTE | 2020-01-11 08:43 | NURSING ---
wound photo: left lower leg
[2020-01-11 08:52] VITALS: BP 110/72; PULSE 73; RESP 16; TEMP 36.4; O2SAT 95
[2020-01-11] MEDS: Senna Tablet 1 TABLET PO (08:58)
[2020-01-11] MEDS: Famotidine 20 MG Tablet PO (08:59)
[2020-01-11] MEDS: levETIRAcetam 750 MG Tablet PO (08:59)
[2020-01-11] MEDS: Multivitamins,Therapeutic Tablet 1 TABLET PO (08:59)
[2020-01-11] MEDS: Acetaminophen 500 MG Tablet 1000 MG PO (08:59)
[2020-01-11] MEDS: Cyanocobalamin 500 MCG Tablet PO (08:59)
--- NOTE | 2020-01-11 11:20 | PHA.DC.MR ---
Pharmacy Service has performed discharge medication reconciliation for this patient. The patient's discharge medication list was reviewed for discrepancies and discrepancies were resolved. Home Medications Dexamethasone 3 mg PO DAILY 03/02/17 Melatonin 6 mg PO QHS 01/03/20 Quetiapine Fumarate [Seroquel] 25 mg PO QHS 01/03/20 Senna [Senokot] 1 tab PO BID 01/03/20 Sertraline HCl [Zoloft] 150 mg PO QHS 01/03/20 Acetaminophen [Tylenol Extra Strength] 1,000 mg PO BID 01/08/20 Cyanocobalamin [Vitamin B12] 500 mcg PO DAILY@0800 01/08/20 Famotidine 20 mg PO BID 01/08/20 Levetiracetam [Keppra] 750 mg PO BID 01/08/20 Multivitamins,Therapeutic [Multivitamin] 1 tab PO DAILY 01/08/20
--- NOTE | 2020-01-11 11:50 | CASEMGMT ---
AMY BROOKS updated that patient has discharge in and will need resumption for HHC. AMY BROOKS called [facility] and updated regarding discharge to home for today and faxed discharge instructions. AMY BROOKS updated patient regarding resumption of HHC with [facility].
--- NOTE | 2020-01-11 11:58 | DS.PCM_ITS ---
<Oren Ireland - Last Filed: 01/11/20 11:58> Discharge Date and Diagnosis Date of Admission: 01/08/20 Date of Discharge: 01/11/20 - Primary Discharge Diagnosis Acute Problems: Generalized debility, fall Glioblastoma Dysphagia Hx seizure DepressionANxiety Chronic LLE wound - Secondary Discharge Diagnosis Chronic Problems: Chronic Problems (Last Updated 12/16/17 @ 17:[address] Sari Hawk, DO) Status post skin graft (Chronic) Open wound of left lower leg (Chronic) open surgical hematoma wound left anterolateral leg Traumatic hematoma of left lower leg (Chronic) Open wound of left knee (Chronic) Venous insufficiency of both lower extremities (Chronic) Ulcer of left foot (Chronic) Ulcer of left calf (Chronic) Ulcer of left lower leg (Chronic) Ulcer of upper extremity, limited to breakdown of skin (Chronic) Skin tear of left lower leg without complication (Chronic) Frequent falls (Chronic) Glioblastoma (Chronic) Abrasion of right leg (Chronic) Abrasion of left leg (Chronic) Nonhealing ulcer of right lower extremity with fat layer exposed (Chronic) Traumatic open wound of left lower leg (Chronic) Traumatic open wound of right lower leg (Chronic) Non-pressure chronic ulcer of left lower leg with muscle involvement without evidence of necrosis (Chronic) GERD (gastroesophageal reflux disease) (Chronic) Seizure disorder (Chronic) Hypertension (Chronic) Anxiety (Chronic) Chronic pain (Chronic) Neuropathic pain (Chronic) Other complications of skin graft (allograft) (autograft) (Chronic) Failed skin graft (Chronic) Complication of skin graft (Chronic) Glioblastoma multiforme (Chronic) Ulcers of both lower legs (Chronic) multiple infected ulcers bilateral legs L97.919 Wound, open, lower limb with complication (Chronic) Infected open wound (Chronic) MRSA (methicillin resistant staph aureus) culture positive (Chronic) Debility, unspecified (Chronic) Hospital Course and Treatment Imaging Results: CT/Brain/Head without Contrast IMPRESSION: No acute intracranial abnormality. Right craniectomy with surgical cavity and calcifications. Limited CT evaluation for residual/recurrence. Further evaluation with contrast-enhanced MRI can be obtained. RAD/Chest 1 View (Portable) IMPRESSION: No definite acute or significant abnormality seen. MRI/Brain W/WO Contrast IMPRESSION: Postsurgical changes and possible postradiation changes status post right parietal craniotomy. Findings which may be consistent with residual or recurrent glioblastoma in the right parietal lobe measuring approximately 4.3 x 3.3 x 2.9 cm. Clinical correlation is recommended Consultations 01/08/20 20:02 Consult: Onc/Wound/vp product management Routine Comment: Operations: None Procedures: None Summary of Care Provided: Hospital Course: The patient is a 59 year old F with pmhx notable for glioblastoma s/p craniotomy, chronic LLE wound, who presented to the ER with c/o weakness and a fall at home. The patient tripped on her wound vac tubing which caught in her rollator and fell to the ground with no head strike. She had previously been recomended to go to SNF following her wound debridement. She was admitted to the med surg floor. PT OT and ST were provided. An MRI of the brain was obtained as she reportedly had intermittent confusion and had balance issues with walking. This showed her previous glioblastoma. I discussed this finding with the patients daughter who explained that they were aware that there was some return of the glioblastoma and that they had discussed it with her neurosurgeon but that she could not have further treatment until her chronic wounds had healed. The patient did well with therapy here. She ambulated well however continued to have balance issues. Her insurance did not agree to her going to an SNF. We arranged for her to have home health care for ongoing therapy. Wound care was provided to take care of placement of her wound vac while here. She will need ongoing wound vac care at home. She was discharged home in stable condition with home health care. She will need to follow-up with her PCP in 1 to 2 weeks, follow-up with her neurosurgeon in 1 to 2 weeks. This patient was seen by Oren Ireland PA-C under the supervision of Doctor Mora.[] - Physical Exam Vitals/I&O's: Vital Signs Temp Pulse Resp BP Pulse Ox 97.5 F L 73 16 110/72 95 01/11/20 08:52 01/11/20 08:52 01/11/20 08:52 01/11/20 08:52 01/11/20 08:52 Oxygen Delivery Method Room Air Weight: 210 lb 5.136 oz Body Mass Index (BMI) 32.4 Orthostatic Vital Signs Start: 01/09/20 01:08 Freq: q24h Status: Active Protocol: Activity Type Activity Date Activity User E-Sign Co-Sign Detail Recorded Client Recorded Date Recorded By Document 01/10/20 15:51 OLIVIER [id number] 01/10/20 15:52 OLIVIER 01/10/20 15:51 Orthostatic Vitals Standing -Blood Pressure (90/60-120/80 mm Hg) 97/64 -Extremity Use Right Arm -Pulse Rate (60-100 beats/min) 91 Sitting -Blood Pressure (90/60-120/80 mm Hg) 108/67 -Extremity Use Right Arm -Pulse Rate (60-100 beats/min) 70 Lying -Blood Pressure (90/60-120/80 mm Hg) 96/61 -Extremity Use Right Arm -Pulse Rate (60-100 beats/min) 62 Intake and Output for Last 24 Hours 01/09/20 01/10/20 01/11/20 23:59 23:59 23:59 Intake Total 1950 / 1950 1440 / 1440 300 / 300 Output Total 350 / 350 1000 / 1000 500 / 500 Balance 1600 / 1600 440 / 440 -200 / -200 General: Alert, Oriented x3, Cooperative HEENT: Atraumatic, PERRLA, EOMI, Normocephalic Neck: Supple, No JVD, Negative Carotid Bruits Lungs: Clear to auscultation, Normal air movement Cardiovascular: Regular rate, No murmurs Abdomen: Bowel Sounds Present, Soft, Non Tender Extremities: No edema, Capillary Refill Less than 3 Seconds Skin: No rashes, No breakdown Musculoskeletal: No Tenderness to Palpation of Joints or Extremities Neurological: Cranial nerves II-XII grossly intact Psych/Mental Status: Normal Affect, Appropriate, Alert and oriented to time, place, person, mood and affect Current Medications Acetaminophen (Tylenol) 1,000 mg PO BID [facility] Last Admin: 01/11/20 08:59 Dose: 1,000 mg Documented by: Cyanocobalamin (Vitamin B12) 500 mcg PO DAILY@0800 [facility] Last Admin: 01/11/20 08:59 Dose: 500 mcg Documented by: Dexamethasone (Decadron) 3 mg PO DAILY@0800 [facility] Last Admin: 01/11/20 08:58 Dose: 3 mg Documented by: Famotidine (Pepcid) 20 mg PO BID [facility] Last Admin: 01/11/20 08:59 Dose: 20 mg Documented by: Heparin Sodium (Porcine) (Heparin Na) 5,000 unit SC Q8 [facility] Last Admin: 01/11/20 05:23 Dose: 5,000 unit Documented by: Levetiracetam (Keppra Tablet) 750 mg PO BID [facility] Last Admin: 01/11/20 08:59 Dose: 750 mg Documented by: Melatonin (Melatonin) 6 mg PO QHS [facility] Last Admin: 01/10/20 22:32 Dose: 6 mg Documented by: [facility] Last Admin: 01/11/20 08:59 Dose: 1 tablet Documented by: Nutritional Formula (Rodger - [place] Flavor) [facility] Last Admin: 01/11/20 08:58 Dose: 1 packet Documented by: Nutritional Formula (Lactose Free) (Ensure Enlive) 120 ml PO 4X/DAY [facility] Last Admin: 01/11/20 08:59 Dose: 120 ml Documented by: Ondansetron HCl (Zofran) 4 mg IV Q8H PRN PRN PRN Reason: NAUSEA/VOMITING Last Admin: 01/09/20 08:14 Dose: 4 mg Documented by: Quetiapine Fumarate (Seroquel) 25 mg PO QHS [facility] Last Admin: 01/10/20 22:32 Dose: 25 mg Documented by: Senna (Senokot) 1 tablet PO BID [facility] Last Admin: 01/11/20 08:58 Dose: 1 tablet Documented by: Sertraline HCl (Zoloft) 150 mg PO QHS [facility] Last Admin: 01/10/20 22:31 Dose: 150 mg Documented by: Sodium Chloride () 10 - 40 ml IV UD PRN PRN Reason: SALINE FLUSH Last Admin: 01/08/20 21:44 Dose: 10 ml Documented by: Discharge Diet: Low fat/ Low Cholesterol, 2000 mg Sodium Diet Discharge Activity: Return to Normal Activity Home Medications: Medications to take at Discharge Dexamethasone 3 mg PO DAILY 03/02/17 Melatonin 6 mg PO QHS 01/03/20 Quetiapine Fumarate [Seroquel] 25 mg PO QHS 01/03/20 Senna [Senokot] 1 tab PO BID 01/03/20 Sertraline HCl [Zoloft] 150 mg PO QHS 01/03/20 Acetaminophen [Tylenol Extra Strength] 1,000 mg PO BID 01/08/20 Cyanocobalamin [Vitamin B12] 500 mcg PO DAILY@0800 01/08/20 Famotidine 20 mg PO BID 01/08/20 Levetiracetam [Keppra] 750 mg PO BID 01/08/20 Multivitamins,Therapeutic [Multivitamin] 1 tab PO DAILY 01/08/20 Primary Care Physician: Loc Arizmendi DO [Primary Care Provider] - Please follow up with your Primary Care Physician in: 1-2 weeks Please Follow Up With: Neurosurgeon When: 1-2 weeks Disposition: Home with Home Health Minutes spent on discharge:: 35 Patient Condition:: Stable Medical Necessity - Tobacco Use Smoking Status: Former smoker Meaningful Use Info Meaningful Use Diagnoses (Choose all that apply): None applicable <Glynn Mora - Last Filed: 01/11/20 14:03> Discharge Date and Diagnosis - Secondary Discharge Diagnosis Chronic Problems: Chronic Problems (Last Updated 12/16/17 @ 17:[address] Sari Hawk DO) Status post skin graft (Chronic) Open wound of left lower leg (Chronic) open surgical hematoma wound left anterolateral leg Traumatic hematoma of left lower leg (Chronic) Open wound of left knee (Chronic) Venous insufficiency of both lower extremities (Chronic) Ulcer of left foot (Chronic) Ulcer of left calf (Chronic) Ulcer of left lower leg (Chronic) Ulcer of upper extremity, limited to breakdown of skin (Chronic) Skin tear of left lower leg without complication (Chronic) Frequent falls (Chronic) Glioblastoma (Chronic) Abrasion of right leg (Chronic) Abrasion of left leg (Chronic) Nonhealing ulcer of right lower extremity with fat layer exposed (Chronic) Traumatic open wound of left lower leg (Chronic) Traumatic open wound of right lower leg (Chronic) Non-pressure chronic ulcer of left lower leg with muscle involvement without evidence of necrosis (Chronic) GERD (gastroesophageal reflux disease) (Chronic) Seizure disorder (Chronic) Hypertension (Chronic) Anxiety (Chronic) Chronic pain (Chronic) Neuropathic pain (Chronic) Other complications of skin graft (allograft) (autograft) (Chronic) Failed skin graft (Chronic) Complication of skin graft (Chronic) Glioblastoma multiforme (Chronic) Ulcers of both lower legs (Chronic) multiple infected ulcers bilateral legs L97.919 Wound, open, lower limb with complication (Chronic) Infected open wound (Chronic) MRSA (methicillin resistant staph aureus) culture positive (Chronic) Debility, unspecified (Chronic) Hospital Course and Treatment Consultations 01/08/20 20:02 Consult: Onc/Wound/vp product management Routine Comment: Summary of Care Provided: The patient is a 59 year old F [] - Physical Exam Vitals/I&O's: Vital Signs Temp Pulse Resp BP Pulse Ox 97.1 F L 81 16 110/84 H 93 01/11/20 12:22 01/11/20 12:22 01/11/20 12:22 01/11/20 12:22 01/11/20 12:22 Oxygen Delivery Method Room Air Weight: 210 lb 5.136 oz Body Mass Index (BMI) 32.4 Orthostatic Vital Signs Start: 01/09/20 01:08 Freq: q24h Status: Active Protocol: Activity Type Activity Date Activity User E-Sign Co-Sign Detail Recorded Client Recorded Date Recorded By Document 01/10/20 15:51 OLIVIER [id number] 01/10/20 15:52 OLIVIER 01/10/20 15:51 Orthostatic Vitals Standing -Blood Pressure (90/60-120/80) 97/64 -Extremity Use Right Arm -Pulse Rate (60-100) 91 Sitting -Blood Pressure (90/60-120/80) 108/67 -Extremity Use Right Arm -Pulse Rate (60-100) 70 Lying -Blood Pressure (90/60-120/80) 96/61 -Extremity Use Right Arm -Pulse Rate (60-100) 62 Intake and Output for Last 24 Hours 01/09/20 01/10/20 01/11/20 23:59 23:59 23:59 Intake Total 1950 / 1950 1440 / 1440 300 / 300 Output Total 350 / 350 1000 / 1000 500 / 500 Balance 1600 / 1600 440 / 440 -200 / -200 Addendum: Dr. Mora I personally examined the patient and reviewed the chart. I agree with the above. 59-year-old female who was recently discharged home with a left lower extremity wound and a wound VAC in place presents from home after a fall. Prior to her discharge there is extensive discussion of being sent to a [facility] facility however she felt she could manage at home. This fall was mechanical in nature and did remove the wound VAC from the wound. Left PT/OT evaluate her and try to get her into a ch[facility] facility as she will definitely need this in order to be able to be safe to go home. She is agreeable to this at this time. Her MRI was repeated because the history of her glioblastoma and the issues with ambulation that have arisen, the MRI was read as possible recurrence of the glioblastoma. This was conveyed to both the patient and her daughter, she will need to follow-up with her neurosurgeon as an outpatient as soon as possible. 01/11/2020: I did a peer to peer yesterday with the insurance company about their denial of her placement in a chcf facility. Their argument was that if she does have a recurrence of a glioblastoma that no monotherapy is can help her and that it does not matter if she is in a prison or at home falling will be a risk and that she would get the same care at home with home health then going to a chcf facility. They are okay with any repeated readmissions secondary to her falling. I discussed this with her and the daughter and they are both okay with going home with home health and following up with neurosurgery based on the MRI results which shows a possible recurrence of her glioblastoma. Expressed understanding of the risks and benefits of discharge today and she was discharged with home health. Inpatient E&M: [id number] Disch Hosp
[2020-01-11 12:22] VITALS: BP 110/84; PULSE 81; RESP 16; TEMP 36.2; O2SAT 93
--- NOTE | 2020-01-11 13:28 | CASEMGMT ---
Social Work Note Pt is discharging home with HHC today. SW placed a call to Yael at [facility] and updated her on discharge. Plan: Home with HHC today Pricilla Cintron [employer], [employer]
--- NOTE | 2020-01-14 14:57 | CASEMGMT ---
RN CM Discharge Follow-up Phone Call: ROSA: Carlos Strata: 3 Call Date: 01/14/20 Discharge Date: 01/11/20 Time of Call: 1455 Duration: 1 min Admitting Diagnosis: Debility RN CM attempted to complete follow-up phone call after recent hospitalization. No answer, mailbox full and unable to leave message. Patient had HHC resumed with [facility]. CM will attempt call again at later time.
== END 2020-01-11 13:14 | disposition home or self-care (01) | DRG 92 ==
LOC: ED 19:28 → MS3 19:39
PROVIDERS: Admitting Provider Internal Medicine; Emergency Provider Emergency Medicine; PCP Student in an Organized Health Care Education/Training Program; Visit Provider Family Medicine
DX: R29.6 Repeated falls (principal); L97.925 Non-pressure chronic ulcer of unspecified part of left lower leg with muscle involvement without evidence of necrosis; C71.9 Malignant neoplasm of brain, unspecified; R53.81 Other malaise; R13.10 Dysphagia, unspecified; K21.9 Gastro-esophageal reflux disease without esophagitis; I10 Essential (primary) hypertension; G40.909 Epilepsy, unspecified, not intractable, without status epilepticus; Z85.841 Personal history of malignant neoplasm of brain; Z87.891 Personal history of nicotine dependence; E66.9 Obesity, unspecified; Z98.890 Other specified postprocedural states; Z79.899 Other long term (current) drug therapy; Z68.32 Body mass index [BMI] 32.0-32.9, adult; G89.29 Other chronic pain; F32.9 Major depressive disorder, single episode, unspecified; F41.9 Anxiety disorder, unspecified
CPT/HCPCS: 36415; 70450; 70553; 71045; 80048; 80053; 81001; 84484; 85025; 87635; 92507; 92523; 92610; 93005; 97116; 97162; 97166; 97530; 97535; 97802; 99284; A9575; G2023; J7030; A4216; J2405; U0003

== ENCOUNTER 2020-02-11 11:15 | Outpatient (RCR) | payer MEDICARE, SELFPAY ==
[2019-06-17 00:35] VITALS: BP 113/73; PULSE 65; RESP 18; TEMP 36.6
[2020-01-08 20:03] VITALS: BMI 32.4
[2020-01-21 10:49] VITALS: BP 130/74; PULSE 80; RESP 18; TEMP 36.1; BMI 30.9
--- NOTE | 2020-01-21 12:21 | PCM.WC.HP ---
(1) Open wound of left lower leg Status: Acute Code(s): S81.802A - Unspecified open wound, left lower leg, initial encounter Comment: open surgical hematoma wound left anterolateral leg (2) Traumatic open wound of right lower leg Status: Acute Code(s): S81.801A - Unspecified open wound, right lower leg, initial encounter (3) Venous insufficiency of both lower extremities Status: Chronic Code(s): I87.2 - Venous insufficiency (chronic) (peripheral) (4) Frequent falls Status: Chronic Code(s): R29.6 - Repeated falls (5) Glioblastoma Status: Chronic Code(s): C71.9 - Malignant neoplasm of brain, unspecified (6) Debility, unspecified Status: Chronic Code(s): R53.81 - Other malaise History of Present Illness Date of Service: 01/21/20 Chief Complaint: Traumatic hematoma on left anterolateral leg that required surgical debridement on 01/04/20. New traumatic wound on right lower leg. History of Wound: The patient is a 59 year old F with history of glioblastoma brain status post craniotomy, chemotherapy on long-term dexamethasone came to ED because of recent falls. Patient is known to me from previous falls that resulted in chronic ulcers that needed debridement and wound care and antibiotics and eventual skin grafting. She was admitted now for falls and she sustained a traumatic hematoma left anterolateral leg. She complains of pain in the left leg. She states she sustained the hematoma about a month ago. She was concerned because of some skin discoloration. X-ray showed no fracture. Surgery on 01/04/20 for Surgical preparation left anterolateral leg with incision and drainage and evacuation and excisional debridement traumatic hematoma (33 cm2). Surgical wound culture positive for Staphylococcus lugdunensis and Staphylococusepidermidis. Both are sensitive to Doxycycline which she was started on after her second hospitalization. She fell at home after tripping on her wound vac tubing and ended up in the ED on 01/08/20 and was then discharged home on 01/11/20. Her insurance did not think that she needed to go someplace for rehab. She presents today with a new traumatic ulcer of her right lower leg that occured after her last hospital discharge. She believes she bumped into the corner of a box or laundry basket. Wound care to the left wound was Wound VAC. The issue is the patient keeps tripping on cord and removing the wound VAC. Will switch her to silver dressing changes to bilateral leg wounds three times per week which home health can do. We will also put her in a 3M 2 layer wrap to help with her compression. This can also be changed by home health 3 times per week. The 3M wraps will help with her edema and also help her from picking at her wounds. She states she has a good appetite. She denies any fever. Past Medical History Past Medical History: Chronic Problems (Last Updated 12/16/17 @ 17:[address] Sari Hawk DO) Status post skin graft (Chronic) Traumatic hematoma of left lower leg (Chronic) Open wound of left knee (Chronic) Venous insufficiency of both lower extremities (Chronic) Ulcer of left foot (Chronic) Ulcer of left calf (Chronic) Ulcer of left lower leg (Chronic) Ulcer of upper extremity, limited to breakdown of skin (Chronic) Skin tear of left lower leg without complication (Chronic) Frequent falls (Chronic) Glioblastoma (Chronic) Abrasion of right leg (Chronic) Abrasion of left leg (Chronic) Nonhealing ulcer of right lower extremity with fat layer exposed (Chronic) Traumatic open wound of left lower leg (Chronic) Non-pressure chronic ulcer of left lower leg with muscle involvement without evidence of necrosis (Chronic) GERD (gastroesophageal reflux disease) (Chronic) Seizure disorder (Chronic) Hypertension (Chronic) Anxiety (Chronic) Chronic pain (Chronic) Neuropathic pain (Chronic) Other complications of skin graft (allograft) (autograft) (Chronic) Failed skin graft (Chronic) Complication of skin graft (Chronic) Glioblastoma multiforme (Chronic) Ulcers of both lower legs (Chronic) multiple infected ulcers bilateral legs L97.919 Wound, open, lower limb with complication (Chronic) Infected open wound (Chronic) MRSA (methicillin resistant staph aureus) culture positive (Chronic) Debility, unspecified (Chronic) Surgical History: dilatation and curettage, - - skin graft LLE Allergies/Adverse Reactions: Allergies adhesive tape Adverse Reaction (Verified 01/08/20 13:54) VERY THIN STEROID SKIN WILL REMOVE SKIN IF ON TOO LONG bee Allergy (Uncoded 01/08/20 20:22) Hives Home Medications: Ambulatory Orders Medication Instructions Recorded Dexamethasone 3 mg PO DAILY 03/02/17 Melatonin 6 mg PO QHS 01/03/20 Quetiapine Fumarate [Seroquel] 25 mg PO QHS 01/03/20 Senna [Senokot] 1 tab PO BID 01/03/20 Sertraline HCl [Zoloft] 150 mg PO QHS 01/03/20 Acetaminophen [Tylenol Extra 1,000 mg PO BID 01/08/20 Strength] Cyanocobalamin [Vitamin B12] 500 mcg PO DAILY@0800 01/08/20 Famotidine 20 mg PO BID 01/08/20 Levetiracetam [Keppra] 750 mg PO BID 01/08/20 Multivitamins,Therapeutic 1 tab PO DAILY 01/08/20 [Multivitamin] doxycycline monohydrate 100 mg 100 mg PO BID 21 Days #42 cap 01/14/20 capsule - Family History Maternal COPD - of COPD Paternal - - Denies known paternal medical history including cardiac history. Smoking Status: Current some day smoker Tobacco Use: Non-smoker Review of Systems Constitutional: Denies: Chills, Fever, Weight Change Eyes: Denies: Pain, Vision Change HEENT: Denies: Difficulty Hearing, Difficulty Swallowing, Sinus Congestion Cardiovascular: Denies: Chest Pain, Palpitations Respiratory: Denies: Cough, Shortness of Breath Gastrointestinal: Denies: Diarrhea, Nausea, Vomiting Musculoskeletal: Reports: Leg Pain - bilateral lower leg pain where her leg wounds are located Skin: Reports: Wounds - Left anterolateral leg surgical wound is beefy pink. New right lower leg traumatic wound. Neurological: Reports: Balance problems - From her Gliobastoma, Confusion, Incoordination Hematologic/ Lymphatic: Reports: Easy Bruising - Physical Exam Vital Signs Temp Pulse Resp BP 96.9 F L 80 18 130/74 H 01/21/20 10:49 01/21/20 10:49 01/21/20 10:49 01/21/20 10:49 General: Alert, Oriented x3 - Patient is alert and oriented x 3 but she is inappropriate and has issues with short term memory., Cooperative HEENT: Atraumatic Oral: Moist Mucosa Lungs: Clear to auscultation, Normal air movement Cardiovascular: Regular rate, Regular Rhythm Abdomen: Soft Extremities: Capillary Refill Less than 3 Seconds, Edema - bilateral lower leg edema Skin: Ulcer/ Wound - Left leg wound is beefy pink, into the muscle. New traumatic right leg wound with biofilm and slough present. Wound Measurements and Assessment WC - Nurse 1 - General Ulcer Measurement Start: 01/21/20 10:49 Freq: Status: Active Protocol: Activity Type Activity Date Activity User E-Sign Co-Sign Detail Recorded Client Recorded Date Recorded By Document 01/21/20 10:49 MW [id number] 01/21/20 11:00 MW 01/21/20 10:49 Wound Center Nurse 1 [Ulcer Assessment] #42 Right Lateral LE -Combined with other wound No -Current Size (cm) - Length 1.5 -Current Size (cm) - Width 4.0 -Current Size (cm) - Depth 0.1 -Total Square Cm 6.00 -Date of Last Picture (Recall this 01/21/20 field) -Photo Taken Yes -Epithelialization None Present -Tunneling No -Undermining/Tunneling No -Circular Undermining No -Exudate Amt Small -Exudate Type Serosanguineous -Wound Margin Thickened -Granulation Amt None Present (0 %) -Granulation Quality N/A -Slough/Fibrin Yes -Necrosis Amt Large (67-100%) -Necrotic Tissue Type Eschar -Structure Exposed N/A -Texture (Riddhi-wound Skin Appearance) Assessed, Localized Edema ,Scarring -Moisture (Riddhi-wound Skin Appearance No Abnormality, ) Assessed -Color (Riddhi-wound Skin Appearance) Assessed, Erythema, Hemosiderin Staining -Temperature (Riddhi-wound Skin No Abnormality Appearance) (Pt Warm) -Tenderness on Palpation (Riddhi-wound Yes Skin Appearance) -Ulcer Cleansing Rinsed/ Irrigated with Saline -Foul Odor after Cleansing No -Anesthetic Used 5% Lidocaine Gel #41 Left Rasmussen post op -Combined with other wound No -Current Size (cm) - Length 6.0 -Current Size (cm) - Width 5.9 -Current Size (cm) - Depth 0.5 -Total Square Cm 35.40 -Date of Last Picture (Recall this 01/21/20 field) -Photo Taken Yes -Epithelialization None Present -Tunneling No -Undermining/Tunneling No -Circular Undermining No -Exudate Amt Large -Exudate Type Serosanguineous -Wound Margin Distinct, Outline Attached -Granulation Amt Large (67-100%) -Granulation Quality Red -Slough/Fibrin Yes -Necrosis Amt Small (1-33%) -Necrotic Tissue Type Adherent Slough -Structure Exposed N/A -Texture (Riddhi-wound Skin Appearance) Assessed, Localized Edema ,Scarring -Moisture (Riddhi-wound Skin Appearance No Abnormality, ) Assessed -Color (Riddhi-wound Skin Appearance) Assessed, Hemosiderin Staining -Temperature (Riddhi-wound Skin No Abnormality Appearance) (Pt Warm) -Tenderness on Palpation (Riddhi-wound Yes Skin Appearance) -Ulcer Cleansing Rinsed/ Irrigated with Saline -Foul Odor after Cleansing No -Anesthetic Used 5% Lidocaine Gel [Edema Assessment] -Lower Limb Edema Present Yes -Right Calf (cm) 39.2 -Right Ankle (cm) 29.5 -Left Calf (cm) 38.0 -Left Ankle (cm) 24.2 WC - Nurse 2 - General Ulcer CM Notes Start: 01/21/20 10:49 Freq: Status: Active Protocol: Activity Type Activity Date Activity User E-Sign Co-Sign Detail Recorded Client Recorded Date Recorded By Document 01/21/20 12:17 PL [id number] 01/21/20 12:19 PL 01/21/20 12:17 Wound Center Nurse 2 [Procedure/Treatment] #42 Right Lateral LE -Time 11:35 -Correct Patient Yes -Correct Side, Site, Position Yes -Correct Procedure Yes -Procedure Performed Yes -Type of Procedure Debridement -Clinical Debridement Subcutaneous -Post Debridement Size (cm) - Length 1.5 -Post Debridement Size (cm) - Width 3.8 -Post Debridement Size (cm) - Depth 0.6 -Total Square Cm 5.70 -Wound/Ulcer Outcome Not Healed -Ulcer Cleansing Rinsed/ Irrigated with Saline -Foul Odor after Cleansing No -Bleeding Controlled with Pressure #41 Left Rasmussen post op -Time 11:35 -Correct Patient Yes -Correct Side, Site, Position Yes -Correct Procedure Yes -Procedure Performed Yes -Type of Procedure Debridement -Clinical Debridement Muscle -Post Debridement Size (cm) - Length 6 -Post Debridement Size (cm) - Width 6.3 -Post Debridement Size (cm) - Depth 0.6 -Total Square Cm 37.8 -Wound/Ulcer Outcome Not Healed -Ulcer Cleansing Rinsed/ Irrigated with Saline -Foul Odor after Cleansing No -Bleeding Controlled with Pressure [See Physician Procedure note for Specifics] Pain Scale: 0-10 Numeric [Pain] -Is Patient Pain Free? Yes Musculoskeletal: No Tenderness to Palpation of Joints or Extremities Neurological: Cranial nerves II-XII grossly intact Psych/Mental Status: Normal Affect, Appropriate Debridement Note Post-Debridement Measurements/Treatment WC - Nurse 2 - General Ulcer CM Notes Start: 01/21/20 10:49 Freq: Status: Active Protocol: Activity Type Activity Date Activity User E-Sign Co-Sign Detail Recorded Client Recorded Date Recorded By Document 01/21/20 12:17 PL [id number] 01/21/20 12:19 PL 01/21/20 12:17 Wound Center Nurse 2 #42 Right Lateral LE -Time 11:35 -Correct Patient Yes -Correct Side, Site, Position Yes -Correct Procedure Yes -Procedure Performed Yes -Type of Procedure Debridement -Clinical Debridement Subcutaneous -Post Debridement Size (cm) - Length 1.5 -Post Debridement Size (cm) - Width 3.8 -Post Debridement Size (cm) - Depth 0.6 -Total Square Cm 5.70 -Wound/Ulcer Outcome Not Healed -Ulcer Cleansing Rinsed/ Irrigated with Saline -Foul Odor after Cleansing No -Bleeding Controlled with Pressure #41 Left Rasmussen post op -Time 11:35 -Correct Patient Yes -Correct Side, Site, Position Yes -Correct Procedure Yes -Procedure Performed Yes -Type of Procedure Debridement -Clinical Debridement Muscle -Post Debridement Size (cm) - Length 6 -Post Debridement Size (cm) - Width 6.3 -Post Debridement Size (cm) - Depth 0.6 -Total Square Cm 37.8 -Wound/Ulcer Outcome Not Healed -Ulcer Cleansing Rinsed/ Irrigated with Saline -Foul Odor after Cleansing No -Bleeding Controlled with Pressure Pain Scale: 0-10 Numeric Is Patient Pain Free? Yes Wound debrided: anterolateral leg wound Laterality: Left Type of Debridement: Excisional debridement Anesthesia Used: 5% Lidocaine Gel Depth: Down to and including healthy tissue, in the subcutaneous layer, to muscle Percentage of wound debrided: 100 Instrument Used: 7mm curette Tissue Removed: Subcutaneous tissue and sloug into the muscle Severity: Fat Layer Exposed Amount of bleeding with debridement: Mild Bleeding Controlled with: Pressure, Compression and gauze - Additional Wound Wound debrided: lower leg wound Laterality: Right Type of Debridement: Excisional debridement Anesthesia Used: 5% Lidocaine Gel Depth: Down to and including healthy tissue, in the subcutaneous layer Percentage of wound debrided: 100 Instrument Used: 7mm curette Tissue Removed: Subcutaneous tissue and slough Severity: Fat Layer Exposed Amount of bleeding with debridement: Mild Bleeding Controlled with: Pressure, Compression and gauze Patient tolerated procedure: Patient tolerated procedure well Assessment/Plan Assessment: 1. Opened surgical wound left anterolateral leg. 2. Traumatic wound right lower leg. 3. History of Glioblastoma. 4. Debility. 5. Frequent falls. 6. Venous insufficency of bilateral lower legs Plan: Patient was evaluated at the wound healing center today. She has a surgical wound on her left lower leg and a new traumatic wound on right lower leg. Surgery on 01/04/20 for Surgical preparation left anterolateral leg with incision and drainage and evacuation and excisional debridement traumatic hematoma (33 cm2). Surgical wound culture positive for Staphylococcus lugdunensis and Staphylococusepidermidis. Both are sensitive to Doxycycline which she was started on after her second hospitalization. She fell at home after tripping on her wound vac tubing and ended up in the ED on 01/08/20 and was then discharged home on 01/11/20. Her insurance did not think that she needed to go someplace for rehab. She presents today with a new traumatic ulcer of her right lower leg that occured after her last hospital discharge. She believes she bumped into the corner of a box or laundry basket. Wound care to the left wound was Wound VAC. The issue is the patient keeps tripping on cord and removing the wound VAC. Will switch her to silver dressing changes to bilateral leg wounds three times per week which home health can do. We will also put her in a 3M 2 layer wrap to help with her compression. This can also be changed by home health 3 times per week. The 3M wraps will help with her edema and also help her from picking at her wounds. Encouraged her to stop smoking as it can have deleterious effects on wound healing. Consult for Palliative care to see if they are able to help her with her chronic conditions. Her step-daughter is having issues with getting the patient the care that she needs. The patient is having frequent falls and her daughter is concerned she could fall and hit her head. Her daughter is having some health issues of her own and states she is not able to drive at this time, so this also makes carrying for the patient more difficulty. Follow up 2 weeks. [id number]: [id number] Global Visit - Left surgical wound- 25 modifier Multi Select Codes - Integumentary Integumentary CPT Codes: 82579 Debbi subq tissue 20 sq cm/< - right leg wound
[2020-02-04 11:47] VITALS: BP 115/68; PULSE 61; RESP 22; TEMP 36.6; BMI 30.9
--- NOTE | 2020-02-04 16:33 | PCM.WC.PN ---
Type of Wound Date of Service: 02/04/20 Chief Complaint: Nonhealing hematoma ulcer left anterolateral leg and nonhealing ulcer right lateral lower leg and traumatic abrasion wound dorsum left hand. History of Wound: Surgery 01/04/20 - Surgical preparation left anterolateral leg with incision and drainage and evacuation and excisional debridement traumatic hematoma (33 cm2). Wound care - Silver dressing with 3M 2 layer wrap. Operative culture - Staphylococcus epidermidis and Staphylococcus lugdunensis, Methicillin resistant. She was placed on Doxycycline. Prealbumin from 01/06/20 was 19.6. Encourage nutritional supplementation with protein to help the healing process. She has a history of falls and has another traumatic nonhealing ulcer right leg and traumatic abrasion dorsum left hand. Today she denies fever. Her appetite is ok. She has a history of glioblastoma brain status post craniotomy, chemotherapy and is on long-term dexamethasone. Progress of Wound: Improved. - Physical Exam Vital Signs Temp Pulse Resp BP 97.8 F 61 22 H 115/68 02/04/20 11:47 02/04/20 11:47 02/04/20 11:47 02/04/20 11:47 Wound Measurements and Assessment WC - Nurse 1 - General Ulcer Measurement Start: 01/21/20 10:49 Freq: Status: Active Protocol: Activity Type Activity Date Activity User E-Sign Co-Sign Detail Recorded Client Recorded Date Recorded By Document 02/04/20 11:47 DL [id number] 02/04/20 12:10 DL 02/04/20 11:47 Wound Center Nurse 1 [Ulcer Assessment] #44 L Hand Dorsal -Current Size (cm) - Length 3 -Current Size (cm) - Width 0.8 -Current Size (cm) - Depth 0.1 -Total Square Cm 2.4 -Photo Taken Yes -Exudate Amt Small -Exudate Type Serosanguineous -Wound Margin Distinct, Outline Attached -Granulation Amt Large (67-100%) -Granulation Quality [place] -Necrosis Amt Small (1-33%) -Necrotic Tissue Type Adherent Slough -Structure Exposed N/A -Texture (Riddhi-wound Skin Appearance) Scarring -Moisture (Riddhi-wound Skin Appearance No Abnormality ) -Color (Riddhi-wound Skin Appearance) Ecchymosis -Temperature (Riddhi-wound Skin No Abnormality Appearance) (Pt Warm) -Tenderness on Palpation (Riddhi-wound No Skin Appearance) -Ulcer Cleansing Wound Cleanser -Foul Odor after Cleansing No -Anesthetic Used 4% Lidocaine Solution #43 L LE sup -Current Size (cm) - Length 1.6 -Current Size (cm) - Width 2.2 -Current Size (cm) - Depth 0.1 -Total Square Cm 3.52 -Photo Taken Yes -Exudate Amt Small -Exudate Type Serosanguineous -Wound Margin Distinct, Outline Attached -Granulation Amt Medium (34-66%) -Granulation Quality [place],Red -Necrosis Amt Small (1-33%) -Necrotic Tissue Type Adherent Slough -Structure Exposed N/A -Texture (Riddhi-wound Skin Appearance) Scarring -Moisture (Riddhi-wound Skin Appearance No Abnormality ) -Color (Riddhi-wound Skin Appearance) No Abnormality -Temperature (Riddhi-wound Skin No Abnormality Appearance) (Pt Warm) -Tenderness on Palpation (Riddhi-wound No Skin Appearance) -Ulcer Cleansing Rinsed/ Irrigated with Saline -Foul Odor after Cleansing No -Anesthetic Used 4% Lidocaine Solution #42 Right Lateral LE -Current Size (cm) - Length 0.8 -Current Size (cm) - Width 2.2 -Current Size (cm) - Depth 0.2 -Total Square Cm 1.76 -Photo Taken No -Exudate Amt Small -Exudate Type Serosanguineous -Wound Margin Distinct, Outline Attached -Granulation Amt Large (67-100%) -Granulation Quality [place] -Necrosis Amt Small (1-33%) -Necrotic Tissue Type Adherent Slough -Structure Exposed N/A -Texture (Irddhi-wound Skin Appearance) Scarring -Moisture (Riddhi-wound Skin Appearance No Abnormality ) -Color (Riddhi-wound Skin Appearance) Hemosiderin Staining -Temperature (Riddhi-wound Skin No Abnormality Appearance) (Pt Warm) -Tenderness on Palpation (Riddhi-wound No Skin Appearance) -Ulcer Cleansing Rinsed/ Irrigated with Saline -Foul Odor after Cleansing No -Anesthetic Used 4% Lidocaine Solution #41 Left [place] post op -Current Size (cm) - Length 4.7 -Current Size (cm) - Width 5 -Current Size (cm) - Depth 0.2 -Total Square Cm 23.5 -Photo Taken No -Exudate Amt Small -Exudate Type Serosanguineous -Wound Margin Distinct, Outline Attached -Granulation Amt Medium (34-66%) -Granulation Quality [place] -Necrosis Amt Medium (34-66%) -Necrotic Tissue Type Adherent Slough -Structure Exposed N/A -Texture (Riddhi-wound Skin Appearance) Scarring -Moisture (Riddhi-wound Skin Appearance No Abnormality ) -Color (Riddhi-wound Skin Appearance) Hemosiderin Staining -Temperature (Riddhi-wound Skin No Abnormality Appearance) (Pt Warm) -Tenderness on Palpation (Riddhi-wound No Skin Appearance) -Ulcer Cleansing Rinsed/ Irrigated with Saline -Foul Odor after Cleansing No -Anesthetic Used 4% Lidocaine Solution [Edema Assessment] -Right Calf (cm) 35 -Right Ankle (cm) 21 -Left Calf (cm) 35.5 -Left Ankle (cm) 22.5 WC - Nurse 2 - General Ulcer CM Notes Start: 01/21/20 10:49 Freq: Status: Active Protocol: Activity Type Activity Date Activity User E-Sign Co-Sign Detail Recorded Client Recorded Date Recorded By Document 02/04/20 12:19 RANDY [id number] 02/04/20 12:28 RANDY 02/04/20 12:19 Wound Center Nurse 2 [Procedure/Treatment] #44 L Hand Dorsal -Time 12:20 -Correct Patient No -Correct Side, Site, Position No -Correct Procedure No -Procedure Performed No -Wound/Ulcer Outcome Not Healed -Ulcer Cleansing Rinsed/ Irrigated with Saline -Foul Odor after Cleansing No -Bioengineered Tissue No -Bleeding Controlled with Pressure -Offloading No -Treatment Response Procedure Tolerated Well #43 L LE sup -Time 12:20 -Correct Patient Yes -Correct Side, Site, Position Yes -Correct Procedure Yes -Procedure Performed Yes -Type of Procedure Debridement -Clinical Debridement Subcutaneous -Post Debridement Size (cm) - Length 1.6 -Post Debridement Size (cm) - Width 2.3 -Post Debridement Size (cm) - Depth 0.1 -Total Square Cm 3.68 -Wound/Ulcer Outcome Not Healed -Ulcer Cleansing Rinsed/ Irrigated with Saline -Foul Odor after Cleansing No -Bioengineered Tissue No -Bleeding Controlled with Pressure -Offloading No -Treatment Response Procedure Tolerated Well #42 Right Lateral LE -Time 12:20 -Correct Patient Yes -Correct Side, Site, Position Yes -Correct Procedure Yes -Procedure Performed Yes -Type of Procedure Debridement -Clinical Debridement Subcutaneous -Post Debridement Size (cm) - Length 0.8 -Post Debridement Size (cm) - Width 2.3 -Post Debridement Size (cm) - Depth 0.2 -Total Square Cm 1.84 -Wound/Ulcer Outcome Not Healed -Ulcer Cleansing Rinsed/ Irrigated with Saline -Foul Odor after Cleansing No -Bioengineered Tissue No -Bleeding Controlled with Pressure -Offloading No -Treatment Response Procedure Tolerated Well #41 Left [place] post op -Time 12:20 -Correct Patient Yes -Correct Side, Site, Position Yes -Correct Procedure Yes -Procedure Performed Yes -Type of Procedure Debridement -Clinical Debridement Subcutaneous -Post Debridement Size (cm) - Length 4.8 -Post Debridement Size (cm) - Width 5.0 -Post Debridement Size (cm) - Depth 0.2 -Total Square Cm 24.00 -Wound/Ulcer Outcome Not Healed -Ulcer Cleansing Rinsed/ Irrigated with Saline -Foul Odor after Cleansing No -Bioengineered Tissue No -Bleeding Controlled with Pressure -Offloading No -Treatment Response Procedure Tolerated Well [See Physician Procedure note for Specifics] Pain Scale: 0-10 Numeric [Pain] -Is Patient Pain Free? Yes Debridement Note Post-Debridement Measurements/Treatment WC - Nurse 2 - General Ulcer CM Notes Start: 01/21/20 10:49 Freq: Status: Active Protocol: Activity Type Activity Date Activity User E-Sign Co-Sign Detail Recorded Client Recorded Date Recorded By Document 01/21/20 12:17 PL [id number] 01/21/20 12:19 PL Document 02/04/20 12:19 RANDY [id number] 02/04/20 12:28 RANDY 01/21/20 02/04/20 12:17 12:19 Wound Center Nurse 2 #44 L Hand Dorsal -Time 12:20 -Correct Patient No -Correct Side, Site, Position No -Correct Procedure No -Procedure Performed No -Wound/Ulcer Outcome Not Healed -Ulcer Cleansing Rinsed/ Irrigated with Saline -Foul Odor after Cleansing No -Bioengineered Tissue No -Bleeding Controlled with Pressure -Offloading No -Treatment Response Procedure Tolerated Well #43 L LE sup -Time 12:20 -Correct Patient Yes -Correct Side, Site, Position Yes -Correct Procedure Yes -Procedure Performed Yes -Type of Procedure Debridement -Clinical Debridement Subcutaneous -Post Debridement Size (cm) - Length 1.6 -Post Debridement Size (cm) - Width 2.3 -Post Debridement Size (cm) - Depth 0.1 -Total Square Cm 3.68 -Wound/Ulcer Outcome Not Healed -Ulcer Cleansing Rinsed/ Irrigated with Saline -Foul Odor after Cleansing No -Bioengineered Tissue No -Bleeding Controlled with Pressure -Offloading No -Treatment Response Procedure Tolerated Well #42 Right Lateral LE -Time 11:35 12:20 -Correct Patient Yes Yes -Correct Side, Site, Position Yes Yes -Correct Procedure Yes Yes -Procedure Performed Yes Yes -Type of Procedure Debridement Debridement -Clinical Debridement Subcutaneous Subcutaneous -Post Debridement Size (cm) - Length 1.5 0.8 -Post Debridement Size (cm) - Width 3.8 2.3 -Post Debridement Size (cm) - Depth 0.6 0.2 -Total Square Cm 5.70 1.84 -Wound/Ulcer Outcome Not Healed Not Healed -Ulcer Cleansing Rinsed/ Rinsed/ Irrigated with Irrigated with Saline Saline -Foul Odor after Cleansing No No -Bioengineered Tissue No -Bleeding Controlled with Pressure Pressure -Offloading No -Treatment Response Procedure Tolerated Well #41 Left [place] post op -Time 11:35 12:20 -Correct Patient Yes Yes -Correct Side, Site, Position Yes Yes -Correct Procedure Yes Yes -Procedure Performed Yes Yes -Type of Procedure Debridement Debridement -Clinical Debridement Muscle Subcutaneous -Post Debridement Size (cm) - Length 6 4.8 -Post Debridement Size (cm) - Width 6.3 5.0 -Post Debridement Size (cm) - Depth 0.6 0.2 -Total Square Cm 37.8 24.00 -Wound/Ulcer Outcome Not Healed Not Healed -Ulcer Cleansing Rinsed/ Rinsed/ Irrigated with Irrigated with Saline Saline -Foul Odor after Cleansing No No -Bioengineered Tissue No -Bleeding Controlled with Pressure Pressure -Offloading No -Treatment Response Procedure Tolerated Well Pain Scale: 0-10 Numeric Is Patient Pain Free? Yes Yes Wound debrided: #41 Left anterolateral leg. Laterality: Left Wound Grade/Stage: 2. Type of Debridement: Excisional debridement Anesthesia Used: 4% Lidocaine Solution Depth: Down to and including healthy tissue Percentage of wound debrided: 100 Instrument Used: 5mm curette Tissue Removed: subcutaneous tissue. Severity: Fat Layer Exposed Amount of bleeding with debridement: Mild Bleeding Controlled with: Pressure Patient tolerated procedure well - Additional Wound Wound debrided: #42 Right lateral lower leg. Laterality: Right Wound Grade/Stage: 2. Type of Debridement: Excisional debridement Anesthesia Used: 4% Lidocaine Solution Depth: Down to and including healthy tissue, in the subcutaneous layer Percentage of wound debrided: 100 Instrument Used: 3mm curette Tissue Removed: subcutaneous tissue. Severity: Fat Layer Exposed Amount of bleeding with debridement: Mild Bleeding Controlled with: Pressure Patient tolerated procedure: Patient tolerated procedure well - Additional Wound Wound debrided: #43 Left leg, superior. Laterality: Left Wound Grade/Stage: 2. Type of Debridement: Excisional debridement Anesthesia Used: 4% Lidocaine Solution Depth: Down to and including healthy tissue, in the subcutaneous layer Percentage of wound debrided: 100 Instrument Used: 3mm curette Tissue Removed: subcutaneous tissue. Severity: Fat Layer Exposed Amount of bleeding with debridement: Mild Bleeding Controlled with: Pressure Patient tolerated procedure: Patient tolerated procedure well - Additional Wound Wound debrided: #44 Dorsum left hand. Wound Grade/Stage: 2. Patient tolerated procedure: - - No debridement was done today as it is a superficial abrasion wound. Assessment/Plan Assessment: 1. Nonhealing hematoma ulcer left anterolateral leg. 2. Nonhealing ulcer left leg, superior. 3. Nonhealing ulcer right lateral lower leg. 4. Traumatic abrasion wound dorsum left hand. 5. History of Glioblastoma. 6. Frequent falls. 7. Venous insufficency of bilateral lower legs Plan: Continue Silver dressing changes to her leg ulcers followed by 3M 2 layer wrap for compression. Apply antibiotic ointment daily to dorsum left hand abrasion wound. Continue Doxycycline for Staphylococcus epidermidis and Staphylococcus lugdunensis, Methicillin resistant. Prealbumin from 01/06/20 was 19.6. Encourage nutritional supplementation with protein to help with the healing process. Encouraged her to stop smoking as it can have deleterious effects on wound healing. Will check with her insurance carrier regarding using advanced skin substitute grafts such as EpiFix placental connective tissue graft to help heal these nonhealing leg ulcers. Followup one week. [id number]: [id number] Debbi subq tissue 20 sq cm/< - -79 Modifier ICD-10 - L97.912, S60.512A, S80.12xA, L97.922, I87.2, R29.6, C71.9
[2020-02-11 11:46] VITALS: BP 109/68; PULSE 77; RESP 16; TEMP 36.1; BMI 30.9
--- NOTE | 2020-02-11 13:19 | PN.PCM_ITS ---
(1) Open wound of left lower leg Status: Chronic Code(s): S81.802A - Unspecified open wound, left lower leg, initial encounter Comment: open surgical hematoma wound left anterolateral leg (2) Traumatic open wound of right lower leg Status: Acute Code(s): S81.801A - Unspecified open wound, right lower leg, initial encounter (3) Venous insufficiency of both lower extremities Status: Chronic Code(s): I87.2 - Venous insufficiency (chronic) (peripheral) (4) Frequent falls Status: Chronic Code(s): R29.6 - Repeated falls (5) Glioblastoma Status: Chronic Code(s): C71.9 - Malignant neoplasm of brain, unspecified (6) Debility, unspecified Status: Chronic Code(s): R53.81 - Other malaise (7) Skin tear of right forearm without complication Status: Acute Code(s): S51.811A - Laceration without foreign body of right forearm, initial encounter (8) Abrasion of hand, left Status: Acute Code(s): S60.512A - Abrasion of left hand, initial encounter Type of Wound Date of Service: 02/11/20 Chief Complaint: Nonhealing hematoma ulcer left anterolateral leg and nonhealing ulcer right lateral lower leg and traumatic abrasion wound dorsum left hand. History of Wound: Surgery 01/04/20 - Surgical preparation left anterolateral leg with incision and drainage and evacuation and excisional debridement traumatic hematoma (33 cm2). Wound care - She did not tolerate the 3M 2 layer wraps. She removed them after one day. Epifix #1 placed on left distal anterior leg and right lateral leg. Collagen hydrogel with adaptic to left proximal anterior leg, right dorsal forearm, left dorsal hand skin tear. Tubigrip double layer to bilateral lower legs. Operative culture - Staphylococcus epidermidis and Staphylococcus lugdunensis, Methicillin resistant. She was placed on Doxycycline. Prealbumin from 01/06/20 was 19.6. Encourage nutritional supplementation with protein to help the healing process. She has a history of falls and has another traumatic nonhealing ulcer right leg and traumatic abrasion dorsum left hand. Today she denies fever. Her appetite is ok. She has a history of glioblastoma brain status post craniotomy, chemotherapy and is on long-term dexamethasone. Progress of Wound: Left inferior surgical ulcer is stable. - Physical Exam Vital Signs Temp Pulse Resp BP 96.9 F L 77 16 109/68 02/11/20 11:46 02/11/20 11:46 02/11/20 11:46 02/11/20 11:46 General: Alert, Oriented x3, Cooperative HEENT: Atraumatic Oral: Moist Mucosa Lungs: Normal air movement Cardiovascular: Regular rate Extremities: Edema - bilateral lower extremities Skin: Ulcer/ Wound - Left distal leg opened area is beefy pink with good granulation tissue. Left proximal leg wound, right leg wound, right dorsal forearm wound, left dorsal hand skin tear. Wound Measurements and Assessment WC - Nurse 1 - General Ulcer Measurement Start: 01/21/20 10:49 Freq: Status: Active Protocol: Activity Type Activity Date Activity User E-Sign Co-Sign Detail Recorded Client Recorded Date Recorded By Document 02/11/20 11:46 [facility] [id number] 02/11/20 12:02 [facility] 02/11/20 11:46 Wound Center Nurse 1 [Ulcer Assessment] #44 L Hand Dorsal -Combined with other wound No -Current Size (cm) - Length 0.1 -Current Size (cm) - Width 0.1 -Current Size (cm) - Depth 0.1 -Total Square Cm 0.01 -Photo Taken No -Epithelialization None Present -Tunneling No -Undermining/Tunneling No -Circular Undermining No -Exudate Amt Small -Exudate Type Serosanguineous -Wound Margin Distinct, Outline Attached -Granulation Amt None Present (0 %) -Slough/Fibrin Yes -Necrosis Amt Large (67-100%) -Necrotic Tissue Type Adherent Slough -Texture (Riddhi-wound Skin Appearance) Assessed, Scarring -Moisture (Riddhi-wound Skin Appearance Assessed,Dry/ ) Scaly -Color (Riddhi-wound Skin Appearance) Assessed -Temperature (Riddhi-wound Skin No Abnormality Appearance) (Pt Warm) -Tenderness on Palpation (Riddhi-wound No Skin Appearance) -Ulcer Cleansing Rinsed/ Irrigated with Saline -Foul Odor after Cleansing No -Anesthetic Used 4% Lidocaine Solution #43 L LE sup -Combined with other wound No -Current Size (cm) - Length 0.1 -Current Size (cm) - Width 0.1 -Current Size (cm) - Depth 0.1 -Total Square Cm 0.01 -Photo Taken No -Epithelialization Large 67-100% -Tunneling No -Undermining/Tunneling No -Circular Undermining No -Exudate Amt None Present -Wound Margin Distinct, Outline Attached -Slough/Fibrin Yes -Necrosis Amt Small (1-33%) -Necrotic Tissue Type Eschar -Texture (Riddhi-wound Skin Appearance) Assessed, Scarring -Moisture (Riddhi-wound Skin Appearance Assessed ) -Color (Riddhi-wound Skin Appearance) Assessed -Temperature (Riddhi-wound Skin No Abnormality Appearance) (Pt Warm) -Tenderness on Palpation (Riddhi-wound No Skin Appearance) -Ulcer Cleansing Rinsed/ Irrigated with Saline -Foul Odor after Cleansing No -Anesthetic Used 4% Lidocaine Solution #42 Right Lateral LE -Combined with other wound No -Current Size (cm) - Length 0.4 -Current Size (cm) - Width 1.7 -Current Size (cm) - Depth 0.3 -Total Square Cm 0.68 -Photo Taken No -Epithelialization Small 1-33% -Tunneling No -Undermining/Tunneling No -Circular Undermining No -Exudate Amt Small -Exudate Type Serosanguineous -Wound Margin Distinct, Outline Attached -Granulation Amt Large (67-100%) -Granulation Quality Red -Slough/Fibrin Yes -Necrosis Amt Small (1-33%) -Necrotic Tissue Type Adherent Slough -Texture (Riddhi-wound Skin Appearance) Assessed, Scarring -Moisture (Riddhi-wound Skin Appearance Assessed,Dry/ ) Scaly -Color (Riddhi-wound Skin Appearance) Assessed -Temperature (Riddhi-wound Skin No Abnormality Appearance) (Pt Warm) -Tenderness on Palpation (Riddhi-wound No Skin Appearance) -Ulcer Cleansing Rinsed/ Irrigated with Saline -Foul Odor after Cleansing No -Anesthetic Used 4% Lidocaine Solution #41 Left [place] post op -Combined with other wound No -Current Size (cm) - Length 4.2 -Current Size (cm) - Width 4.4 -Current Size (cm) - Depth 0.1 -Total Square Cm 18.48 -Photo Taken No -Epithelialization None Present -Tunneling No -Undermining/Tunneling No -Circular Undermining No -Exudate Amt Medium -Exudate Type Serosanguineous -Wound Margin Distinct, Outline Attached -Granulation Amt Large (67-100%) -Granulation Quality Pale,[place] -Slough/Fibrin Yes -Necrosis Amt Small (1-33%) -Necrotic Tissue Type Adherent Slough -Texture (Riddhi-wound Skin Appearance) Assessed, Scarring -Moisture (Riddhi-wound Skin Appearance Assessed ) -Color (Riddhi-wound Skin Appearance) Assessed -Temperature (Riddhi-wound Skin No Abnormality Appearance) (Pt Warm) -Tenderness on Palpation (Riddhi-wound No Skin Appearance) -Ulcer Cleansing Rinsed/ Irrigated with Saline -Foul Odor after Cleansing No -Anesthetic Used 4% Lidocaine Solution [Edema Assessment] -Lower Limb Edema Present Yes -Right Calf (cm) 37.2 -Right Ankle (cm) 21.7 -Left Calf (cm) 39 -Left Ankle (cm) 25.9 WC - Nurse 2 - General Ulcer CM Notes Start: 01/21/20 10:49 Freq: Status: Active Protocol: Activity Type Activity Date Activity User E-Sign Co-Sign Detail Recorded Client Recorded Date Recorded By Document 02/11/20 12:31 RANDY [id number] 02/11/20 12:45 RANDY 02/11/20 12:31 Wound Center Nurse 2 [Procedure/Treatment] #44 L Hand Dorsal -Time 12:36 -Correct Patient Yes -Correct Side, Site, Position Yes -Correct Procedure Yes -Procedure Performed Yes -Type of Procedure Debridement -Clinical Debridement Subcutaneous -Post Debridement Size (cm) - Length 3.0 -Post Debridement Size (cm) - Width 0.9 -Post Debridement Size (cm) - Depth 0.1 -Total Square (cm) 2.70 -Wound/Ulcer Outcome Not Healed -Ulcer Cleansing Rinsed/ Irrigated with Saline -Foul Odor after Cleansing No -Bioengineered Tissue No -Bleeding Controlled with Pressure -Offloading No -Treatment Response Procedure Tolerated Well #43 L LE sup -Time 12:32 -Correct Patient Yes -Correct Side, Site, Position Yes -Correct Procedure Yes -Procedure Performed Yes -Type of Procedure Debridement -Clinical Debridement Subcutaneous -Post Debridement Size (cm) - Length 0.7 -Post Debridement Size (cm) - Width 1.0 -Post Debridement Size (cm) - Depth 0.3 -Total Square (cm) 0.70 -Wound/Ulcer Outcome Not Healed -Ulcer Cleansing Rinsed/ Irrigated with Saline -Foul Odor after Cleansing No -Bioengineered Tissue Yes -Type of bioengineered Tissue EPIFIX -Bleeding Controlled with Pressure -Offloading No -Treatment Response Procedure Tolerated Well #42 Right Lateral LE -Time 12:32 -Correct Patient Yes -Correct Side, Site, Position Yes -Correct Procedure Yes -Procedure Performed Yes -Type of Procedure Debridement -Clinical Debridement Subcutaneous -Post Debridement Size (cm) - Length 0.6 -Post Debridement Size (cm) - Width 1.7 -Post Debridement Size (cm) - Depth 0.4 -Total Square (cm) 1.02 -Wound/Ulcer Outcome Not Healed -Ulcer Cleansing Rinsed/ Irrigated with Saline -Foul Odor after Cleansing No -Bioengineered Tissue Yes -Type of bioengineered Tissue EPIFIX -Expiration Date 09/15/24 -Product Lot Number [id number] -Percent Used 100 -Saline Lot Number [id number] -Bleeding Controlled with Pressure -Offloading No -Treatment Response Procedure Tolerated Well #41 Left [place]ussen post op -Time 12:33 -Correct Patient Yes -Correct Side, Site, Position Yes -Correct Procedure Yes -Procedure Performed Yes -Type of Procedure Debridement -Clinical Debridement Subcutaneous -Post Debridement Size (cm) - Length 3.7 -Post Debridement Size (cm) - Width 4.7 -Post Debridement Size (cm) - Depth 0.3 -Total Square (cm) 17.39 -Wound/Ulcer Outcome Not Healed -Ulcer Cleansing Rinsed/ Irrigated with Saline -Foul Odor after Cleansing No -Bioengineered Tissue No -Type of bioengineered Tissue EPIFIX -Expiration Date 09/15/24 -Product Lot Number [id number] -Percent Used 100 -Saline Lot Number [id number] -Bleeding Controlled with Pressure -Offloading No -Treatment Response Procedure Tolerated Well [See Physician Procedure note for Specifics] Pain Scale: 0-10 Numeric [Pain] -Is Patient Pain Free? Yes Musculoskeletal: No Tenderness to Palpation of Joints or Extremities Neurological: Cranial nerves II-XII grossly intact Psych/Mental Status: Normal Affect, - - Patient answers questions appropriately but has impaired short term memory. She is very forgetful. Debridement Note Post-Debridement Measurements/Treatment WC - Nurse 2 - General Ulcer CM Notes Start: 01/21/20 10:49 Freq: Status: Active Protocol: Activity Type Activity Date Activity User E-Sign Co-Sign Detail Recorded Client Recorded Date Recorded By Document 01/21/20 12:17 PL [id number] 01/21/20 12:19 PL Document 02/04/20 12:19 JF [id number] 02/04/20 12:28 JF Document 02/11/20 12:31 [id number] 02/11/20 12:45 01/21/20 02/04/20 02/11/20 12:17 12:19 12:31 Wound Center Nurse 2 #44 L Hand Dorsal -Time 12:20 12:36 -Correct Patient No Yes -Correct Side, Site, Position No Yes -Correct Procedure No Yes -Procedure Performed No Yes -Type of Procedure Debridement -Clinical Debridement Subcutaneous -Post Debridement Size (cm) - Length 3.0 -Post Debridement Size (cm) - Width 0.9 -Post Debridement Size (cm) - Depth 0.1 -Total Square (cm) 2.70 -Wound/Ulcer Outcome Not Healed Not Healed -Ulcer Cleansing Rinsed/ Rinsed/ Irrigated with Irrigated with Saline Saline -Foul Odor after Cleansing No No -Bioengineered Tissue No No -Bleeding Controlled with Pressure Pressure -Offloading No No -Treatment Response Procedure Procedure Tolerated Well Tolerated Well #43 L LE sup -Time 12:20 12:32 -Correct Patient Yes Yes -Correct Side, Site, Position Yes Yes -Correct Procedure Yes Yes -Procedure Performed Yes Yes -Type of Procedure Debridement Debridement -Clinical Debridement Subcutaneous Subcutaneous -Post Debridement Size (cm) - Length 1.6 0.7 -Post Debridement Size (cm) - Width 2.3 1.0 -Post Debridement Size (cm) - Depth 0.1 0.3 -Total Square (cm) 3.68 0.70 -Wound/Ulcer Outcome Not Healed Not Healed -Ulcer Cleansing Rinsed/ Rinsed/ Irrigated with Irrigated with Saline Saline -Foul Odor after Cleansing No No -Bioengineered Tissue No Yes -Type of bioengineered Tissue EPIFIX -Bleeding Controlled with Pressure Pressure -Offloading No No -Treatment Response Procedure Procedure Tolerated Well Tolerated Well #42 Right Lateral LE -Time 11:35 12:20 12:32 -Correct Patient Yes Yes Yes -Correct Side, Site, Position Yes Yes Yes -Correct Procedure Yes Yes Yes -Procedure Performed Yes Yes Yes -Type of Procedure Debridement Debridement Debridement -Clinical Debridement Subcutaneous Subcutaneous Subcutaneous -Post Debridement Size (cm) - Length 1.5 0.8 0.6 -Post Debridement Size (cm) - Width 3.8 2.3 1.7 -Post Debridement Size (cm) - Depth 0.6 0.2 0.4 -Total Square (cm) 5.70 1.84 1.02 -Wound/Ulcer Outcome Not Healed Not Healed Not Healed -Ulcer Cleansing Rinsed/ Rinsed/ Rinsed/ Irrigated with Irrigated with Irrigated with Saline Saline Saline -Foul Odor after Cleansing No No No -Bioengineered Tissue No Yes -Type of bioengineered Tissue EPIFIX -Expiration Date 09/15/24 -Product Lot Number [id number] -Percent Used 100 -Saline Lot Number [id number] -Bleeding Controlled with Pressure Pressure Pressure -Offloading No No -Treatment Response Procedure Procedure Tolerated Well Tolerated Well #41 Left [place] post op -Time 11:35 12:20 12:33 -Correct Patient Yes Yes Yes -Correct Side, Site, Position Yes Yes Yes -Correct Procedure Yes Yes Yes -Procedure Performed Yes Yes Yes -Type of Procedure Debridement Debridement Debridement -Clinical Debridement Muscle Subcutaneous Subcutaneous -Post Debridement Size (cm) - Length 6 4.8 3.7 -Post Debridement Size (cm) - Width 6.3 5.0 4.7 -Post Debridement Size (cm) - Depth 0.6 0.2 0.3 -Total Square (cm) 37.8 24.00 17.39 -Wound/Ulcer Outcome Not Healed Not Healed Not Healed -Ulcer Cleansing Rinsed/ Rinsed/ Rinsed/ Irrigated with Irrigated with Irrigated with Saline Saline Saline -Foul Odor after Cleansing No No No -Bioengineered Tissue No No -Type of bioengineered Tissue EPIFIX -Expiration Date 09/15/24 -Product Lot Number [id number] -Percent Used 100 -Saline Lot Number [id number] -Bleeding Controlled with Pressure Pressure Pressure -Offloading No No -Treatment Response Procedure Procedure Tolerated Well Tolerated Well Pain Scale: 0-10 Numeric Is Patient Pain Free? Yes Yes Yes Wound debrided: distal leg Laterality: Left Type of Debridement: Excisional debridement Anesthesia Used: 5% Lidocaine Gel Depth: Down to and including healthy tissue, in the subcutaneous layer Percentage of wound debrided: 100 Instrument Used: 7mm curette Tissue Removed: Subcutaneous tissue and slough Severity: Fat Layer Exposed Amount of bleeding with debridement: Mild Bleeding Controlled with: Pressure - Additional Wound Wound debrided: proximal leg Laterality: Left Type of Debridement: Excisional debridement Anesthesia Used: 5% Lidocaine Gel Depth: Down to and including healthy tissue, in the subcutaneous layer Percentage of wound debrided: 100 Instrument Used: 3mm curette Tissue Removed: Subcutaneous tissue and slough Severity: Fat Layer Exposed Amount of bleeding with debridement: Mild Bleeding Controlled with: Pressure Patient tolerated procedure: Patient tolerated procedure well - Additional Wound Wound debrided: leg Laterality: Right Type of Debridement: Excisional debridement Anesthesia Used: 5% Lidocaine Gel Depth: Down to and including healthy tissue, in the subcutaneous layer Percentage of wound debrided: 100 Instrument Used: 5mm curette Tissue Removed: Subcutaneous tissue and slough Severity: Fat Layer Exposed Amount of bleeding with debridement: Mild Bleeding Controlled with: Pressure Patient tolerated procedure: Patient tolerated procedure well - Additional Wound Wound debrided: dorsal hand Laterality: Left Type of Debridement: Excisional debridement Anesthesia Used: 4% Lidocaine Solution Depth: Down to and including healthy tissue, in the subcutaneous layer Instrument Used: 3mm curette Tissue Removed: Subcutaneous tissue and slough Severity: Limited To Skin Breakdown Amount of bleeding with debridement: Mild Bleeding Controlled with: Pressure Patient tolerated procedure: Patient tolerated procedure well Assessment/Plan Assessment: 1. Nonhealing hematoma ulcer left anterolateral leg. 2. Nonhealing ulcer left leg, superior. 3. Nonhealing ulcer right lateral lower leg. 4. Traumatic abrasion wound dorsum left hand. 5. History of Glioblastom a. 6. Frequent falls. 7. Venous insufficency of bilateral lower legs Plan: Wound care - She did not tolerate the 3M 2 layer wraps. She removed them after one day. Epifix #1 placed on left distal anterior leg and right lateral leg, covered by wound veil and secured with steri strips. Collagen hydrogel with adaptic to left proximal anterior leg, right dorsal forearm, left dorsal hand skin tear. Tubigrip double layer to bilateral lower legs. Continue Doxycycline for Staphylococcus epidermidis and Staphylococcus lugdunensis, Methicillin resistant. Prealbumin from 01/06/20 was 19.6. Encourage nutritional supplementation with protein to help with the healing process. Encouraged her to stop smoking as it can have deleterious effects on wound healing. Consulted Palliative care for evaluation to help with chronic disease management and to see if there were any services that she qualifies for. Patient intially did not let them in her house because she didn't like that they were affiliated with hospice. I explained in detail with the patient that although palliative care is associated with hospice, they are two different services. Her daughter stated that they are coming out again this week and she will be there when they come for the evaluation. Patient is also waiting on MRI results to see if her Glioblastoma is increasing in size. Followup one week. [id number]: [id number] Debbi subq tissue 20 sq cm/< - left superior leg, right dorsal forearm [id number]: [id number] Skin sub graft trnk/arm/leg - Right leg
== END 2020-02-15 23:59 ==
LOC: WC 11:15
PROVIDERS: Family Provider Student in an Organized Health Care Education/Training Program; PCP Student in an Organized Health Care Education/Training Program; Visit Provider Surgery
DX: L97.925 Non-pressure chronic ulcer of unspecified part of left lower leg with muscle involvement without evidence of necrosis (principal); L97.911 Non-pressure chronic ulcer of unspecified part of right lower leg limited to breakdown of skin; S60.512A Abrasion of left hand, initial encounter; W01.0XXA Fall on same level from slipping, tripping and stumbling without subsequent striking against object, initial encounter; Y92.009 Unspecified place in unspecified non-institutional (private) residence as the place of occurrence of the external cause; I87.2 Venous insufficiency (chronic) (peripheral); R29.6 Repeated falls; C71.9 Malignant neoplasm of brain, unspecified; R53.81 Other malaise; I10 Essential (primary) hypertension; F41.9 Anxiety disorder, unspecified; G40.909 Epilepsy, unspecified, not intractable, without status epilepticus
CPT/HCPCS: 11042; 11045; 15271; 29581; 99212; Q4186; G0463

== ENCOUNTER 2020-03-17 13:00 | Outpatient (RCR) | payer MEDICARE, SELFPAY ==
[2020-02-16 00:12] VITALS: BP 109/68; PULSE 77; RESP 16; TEMP 36.1
[2020-02-18 14:03] VITALS: BP 115/83; PULSE 84; RESP 18; TEMP 36.4; BMI 30.9
--- NOTE | 2020-02-18 15:35 | PCM.WC.PN ---
(1) Ulcer of left lower extremity with fat layer exposed Status: Chronic Code(s): L97.922 - Non-pressure chronic ulcer of unspecified part of left lower leg with fat layer exposed (2) Skin tear of right forearm without complication Status: Acute Code(s): S51.811A - Laceration without foreign body of right forearm, initial encounter (3) Abrasion of hand, left Status: Acute Code(s): S60.512A - Abrasion of left hand, initial encounter (4) Frequent falls Status: Chronic Code(s): R29.6 - Repeated falls (5) Traumatic open wound of left lower leg Status: Chronic Code(s): S81.802A - Unspecified open wound, left lower leg, initial encounter (6) Traumatic open wound of right lower leg Status: Acute Code(s): S81.801A - Unspecified open wound, right lower leg, initial encounter (7) Glioblastoma Status: Chronic Code(s): C71.9 - Malignant neoplasm of brain, unspecified (8) Debility, unspecified Status: Chronic Code(s): R53.81 - Other malaise Type of Wound Date of Service: 02/18/20 Chief Complaint: Nonhealing hematoma ulcer left anterolateral leg and nonhealing ulcer right lateral lower leg and traumatic abrasion wound dorsum left hand. History of Wound: Surgery 01/04/20 - Surgical preparation left anterolateral leg with incision and drainage and evacuation and excisional debridement traumatic hematoma (33 cm2). Wound care - Epifix #2 placed on left distal anterior leg and right lateral leg. The left proximal anterior leg, right dorsal forearm, left dorsal hand skin tear have healed. Tubigrip double layer to bilateral lower legs. Operative culture - Staphylococcus epidermidis and Staphylococcus lugdunensis, Methicillin resistant. She was placed on Doxycycline. Prealbumin from 01/06/20 was 19.6. Encourage nutritional supplementation with protein to help the healing process. She has a history of falls and has another traumatic nonhealing ulcer right leg and traumatic abrasion dorsum left hand. Today she denies fever. Her appetite is ok. She has a history of glioblastoma brain status post craniotomy, chemotherapy and is on long-term dexamethasone. Progress of Wound: Left inferior lower leg surgical ulcer has improved. The left hadn, left superior leg and right lateral leg opened areas have healed. - Physical Exam Vital Signs Temp Pulse Resp BP 97.5 F L 84 18 115/83 H 02/18/20 14:03 02/18/20 14:03 02/18/20 14:03 02/18/20 14:03 General: Alert, Cooperative HEENT: Atraumatic Oral: Moist Mucosa Lungs: Normal air movement Cardiovascular: Regular rate Extremities: Capillary Refill Less than 3 Seconds Skin: Ulcer/ Wound - Left lower leg surgical ulcer is beefy pink. The left hand, left superior lower leg and right leg opened areas are healed today. Wound Measurements and Assessment WC - Nurse 1 - General Ulcer Measurement Start: 02/18/20 14:03 Freq: Status: Active Protocol: Activity Type Activity Date Activity User E-Sign Co-Sign Detail Recorded Client Recorded Date Recorded By Document 02/18/20 14:03 [facility] [id number] 02/18/20 14:16 [facility] 02/18/20 14:03 Wound Center Nurse 1 [Ulcer Assessment] #44 L Hand Dorsal -Combined with other wound No -Current Size (cm) - Length 0.1 -Current Size (cm) - Width 0.1 -Current Size (cm) - Depth 0.1 -Total Square Cm 0.01 -Epithelialization Large 67-100% #43 L LE sup -Combined with other wound No -Current Size (cm) - Length 0.1 -Current Size (cm) - Width 0.1 -Current Size (cm) - Depth 0.1 -Total Square Cm 0.01 -Epithelialization Large 67-100% #42 Right Lateral LE -Combined with other wound No -Current Size (cm) - Length 0.1 -Current Size (cm) - Width 0.1 -Current Size (cm) - Depth 0.1 -Total Square Cm 0.01 -Epithelialization Large 67-100% #41 Left Samuel post op -Combined with other wound No -Current Size (cm) - Length 3.6 -Current Size (cm) - Width 4.6 -Current Size (cm) - Depth 0.1 -Total Square Cm 16.56 -Photo Taken No -Epithelialization Small 1-33% -Tunneling No -Undermining/Tunneling No -Circular Undermining No -Exudate Amt Medium -Exudate Type Serosanguineous -Wound Margin Distinct, Outline Attached -Granulation Amt Large (67-100%) -Granulation Quality Hyper- granulation, Pale,Red -Slough/Fibrin Yes -Necrosis Amt Small (1-33%) -Necrotic Tissue Type Adherent Slough -Texture (Riddhi-wound Skin Appearance) Assessed, Scarring -Moisture (Riddhi-wound Skin Appearance Assessed, ) Maceration -Color (Riddhi-wound Skin Appearance) Assessed -Temperature (Riddhi-wound Skin No Abnormality Appearance) (Pt Warm) -Tenderness on Palpation (Riddhi-wound No Skin Appearance) -Ulcer Cleansing Rinsed/ Irrigated with Saline -Foul Odor after Cleansing No -Anesthetic Used 4% Lidocaine Solution #40 right lateral samuel -Combined with other wound No -Current Size (cm) - Length 0.1 -Current Size (cm) - Width 0.1 -Current Size (cm) - Depth 0.1 -Total Square Cm 0.01 -Epithelialization Large 67-100% WC - Nurse 2 - General Ulcer CM Notes Start: 02/18/20 14:03 Freq: Status: Active Protocol: Activity Type Activity Date Activity User E-Sign Co-Sign Detail Recorded Client Recorded Date Recorded By Document 02/18/20 15:04 RANDY [id number] 02/18/20 15:14 RANDY 02/18/20 15:04 Wound Center Nurse 2 [Procedure/Treatment] #44 L Hand Dorsal -Correct Patient No -Correct Side, Site, Position No -Correct Procedure No -Procedure Performed No -Post Debridement Size (cm) - Length 0 -Post Debridement Size (cm) - Width 0 -Post Debridement Size (cm) - Depth 0 -Total Square (cm) 0 -Wound/Ulcer Outcome Healed- Epithelialized #43 L LE sup -Correct Patient No -Correct Side, Site, Position No -Correct Procedure No -Procedure Performed No -Post Debridement Size (cm) - Length 0 -Post Debridement Size (cm) - Width 0 -Post Debridement Size (cm) - Depth 0 -Total Square (cm) 0 -Wound/Ulcer Outcome Healed- Epithelialized #42 Right Lateral LE -Correct Patient No -Correct Side, Site, Position No -Correct Procedure No -Procedure Performed No -Post Debridement Size (cm) - Length 0 -Post Debridement Size (cm) - Width 0 -Post Debridement Size (cm) - Depth 0 -Total Square (cm) 0 -Wound/Ulcer Outcome Healed- Epithelialized #41 Left Samuel post op -Time 15:06 -Correct Patient Yes -Correct Side, Site, Position Yes -Correct Procedure Yes -Procedure Performed Yes -Type of Procedure Debridement -Clinical Debridement Subcutaneous -Post Debridement Size (cm) - Length 3.3 -Post Debridement Size (cm) - Width 4.2 -Post Debridement Size (cm) - Depth 0.2 -Total Square (cm) 13.86 -Wound/Ulcer Outcome Not Healed -Ulcer Cleansing Rinsed/ Irrigated with Saline -Foul Odor after Cleansing No -Bioengineered Tissue Yes -Type of bioengineered Tissue EPIFIX -Expiration Date 11/15/24 -Product Lot Number [id number] -Percent Used 100 -Saline Lot Number [id number] -Bleeding Controlled with Pressure -Offloading No -Treatment Response Procedure Tolerated Well [See Physician Procedure note for Specifics] Pain Scale: 0-10 Numeric [Pain] -Is Patient Pain Free? Yes Musculoskeletal: No Tenderness to Palpation of Joints or Extremities Neurological: Neuro grossly intact Psych/Mental Status: Normal Affect, Appropriate Debridement Note Post-Debridement Measurements/Treatment WC - Nurse 2 - General Ulcer CM Notes Start: 02/18/20 14:03 Freq: Status: Active Protocol: Activity Type Activity Date Activity User E-Sign Co-Sign Detail Recorded Client Recorded Date Recorded By Document 02/18/20 15:04 RANDY [id number] 02/18/20 15:14 RANDY 02/18/20 15:04 Wound Center Nurse 2 #44 L Hand Dorsal -Correct Patient No -Correct Side, Site, Position No -Correct Procedure No -Procedure Performed No -Post Debridement Size (cm) - Length 0 -Post Debridement Size (cm) - Width 0 -Post Debridement Size (cm) - Depth 0 -Total Square (cm) 0 -Wound/Ulcer Outcome Healed- Epithelialized #43 L LE sup -Correct Patient No -Correct Side, Site, Position No -Correct Procedure No -Procedure Performed No -Post Debridement Size (cm) - Length 0 -Post Debridement Size (cm) - Width 0 -Post Debridement Size (cm) - Depth 0 -Total Square (cm) 0 -Wound/Ulcer Outcome Healed- Epithelialized #42 Right Lateral LE -Correct Patient No -Correct Side, Site, Position No -Correct Procedure No -Procedure Performed No -Post Debridement Size (cm) - Length 0 -Post Debridement Size (cm) - Width 0 -Post Debridement Size (cm) - Depth 0 -Total Square (cm) 0 -Wound/Ulcer Outcome Healed- Epithelialized #41 Left Samuel post op -Time 15:06 -Correct Patient Yes -Correct Side, Site, Position Yes -Correct Procedure Yes -Procedure Performed Yes -Type of Procedure Debridement -Clinical Debridement Subcutaneous -Post Debridement Size (cm) - Length 3.3 -Post Debridement Size (cm) - Width 4.2 -Post Debridement Size (cm) - Depth 0.2 -Total Square (cm) 13.86 -Wound/Ulcer Outcome Not Healed -Ulcer Cleansing Rinsed/ Irrigated with Saline -Foul Odor after Cleansing No -Bioengineered Tissue Yes -Type of bioengineered Tissue EPIFIX -Expiration Date 11/15/24 -Product Lot Number [id number] -Percent Used 100 -Saline Lot Number [id number] -Bleeding Controlled with Pressure -Offloading No -Treatment Response Procedure Tolerated Well Pain Scale: 0-10 Numeric Is Patient Pain Free? Yes Wound debrided: lower leg ulcer Laterality: Left Type of Debridement: Excisional debridement Anesthesia Used: 5% Lidocaine Gel Depth: Down to and including healthy tissue, in the subcutaneous layer Percentage of wound debrided: 100 Instrument Used: 7mm curette Tissue Removed: Subcutaneous tissue and slough Severity: Fat Layer Exposed Amount of bleeding with debridement: Mild Bleeding Controlled with: Pressure Patient tolerated procedure well Assessment/Plan Assessment: 1. Nonhealing hematoma ulcer left anterolateral leg. 2. Nonhealing ulcer left leg, superior. 3. Nonhealing ulcer right lateral lower leg. 4. Traumatic abrasion wound dorsum left hand. 5. History of Glioblastoma. 6. Frequent falls. 7. Venous insufficency of bilateral lower legs Plan: Wound care -Epifix #2 placed on left distal anterior leg and right lateral leg. The left proximal anterior leg, right dorsal forearm, left dorsal hand skin tear have healed. Tubigrip double layer to bilateral lower legsShe did not tolerate the 3M 2 layer wraps. She removed them after one day. Continue Doxycycline for Staphylococcus epidermidis and Staphylococcus lugdunensis, Methicillin resistant. Prealbumin from 01/06/20 was 19.6. Encourage nutritional supplementation with protein to help with the healing process. Encouraged her to stop smoking as it can have deleterious effects on wound healing. Consulted Palliative care for evaluation to help with chronic disease management and to see if there were any services that she qualifies for. They came last week to evaluate her and she states that they area setting up some services for her but she isn't sure exactly what. Patient is also waiting on MRI results to see if her Glioblastoma is increasing in size. Followup one week. [id number]: [id number] Global Visit
[2020-02-25 14:32] VITALS: BP 95/74; PULSE 71; RESP 20; TEMP 36.9; BMI 30.9
--- NOTE | 2020-02-25 15:34 | PN.PCM_ITS ---
(1) Ulcer of left lower extremity with fat layer exposed Status: Chronic Code(s): L97.922 - Non-pressure chronic ulcer of unspecified part of left lower leg with fat layer exposed (2) Frequent falls Status: Chronic Code(s): R29.6 - Repeated falls (3) Glioblastoma Status: Chronic Code(s): C71.9 - Malignant neoplasm of brain, unspecified (4) Debility, unspecified Status: Chronic Code(s): R53.81 - Other malaise Type of Wound Date of Service: 02/29/20 Chief Complaint: Nonhealing hematoma ulcer left anterolateral leg and nonhealing ulcer right lateral lower leg and traumatic abrasion wound dorsum left hand. History of Wound: Surgery 01/04/20 - Surgical preparation left anterolateral leg with incision and drainage and evacuation and excisional debridement traumatic hematoma (33 cm2). Wound care - Epifix #3 placed on left distal anterior leg and right lateral leg. The left proximal anterior leg, right dorsal forearm, left dorsal hand skin tear have healed. Tubigrip double layer to bilateral lower legs. Operative culture - Staphylococcus epidermidis and Staphylococcus lugdunensis, Methicillin resistant. She was placed on Doxycycline. Prealbumin from 01/06/20 was 19.6. Encourage nutritional supplementation with protein to help the healing process. She has a history of falls and has another traumatic nonhealing ulcer right leg and traumatic abrasion dorsum left hand. Today she denies fever. Her appetite is ok. She has a history of glioblastoma brain status post craniotomy, chemotherapy and is on long-term dexamethasone. Progress of Wound: Left inferior, lateral lower leg surgical ulcer has improved. The left hand, left superior leg and right lateral leg opened areas have healed. - Physical Exam Vital Signs Temp Pulse Resp BP 98.4 F 71 20 H 95/74 02/25/20 14:32 02/25/20 14:32 02/25/20 14:32 02/25/20 14:32 General: Alert, Cooperative HEENT: Atraumatic Oral: Moist Mucosa Lungs: Normal air movement Cardiovascular: Regular rate Extremities: Capillary Refill Less than 3 Seconds, Edema Skin: Ulcer/ Wound - Left distal lateral leg ulcer is beefy pink. Wound Measurements and Assessment WC - Nurse 1 - General Ulcer Measurement Start: 02/18/20 14:03 Freq: Status: Active Protocol: Activity Type Activity Date Activity User E-Sign Co-Sign Detail Recorded Client Recorded Date Recorded By Document 02/25/20 14:32 CAROLINE [id number] 02/25/20 14:45 DL 02/25/20 14:32 Wound Center Nurse 1 [Ulcer Assessment] #41 Left Rasmussen post op -Current Size (cm) - Length 2.8 -Current Size (cm) - Width 4 -Current Size (cm) - Depth 0.1 -Total Square Cm 11.2 -Photo Taken No -Exudate Amt Small -Exudate Type Serosanguineous -Wound Margin Distinct, Outline Attached -Granulation Amt Large (67-100%) -Granulation Quality Hyper- granulation,Red -Necrosis Amt Small (1-33%) -Necrotic Tissue Type Adherent Slough -Structure Exposed N/A -Texture (Riddhi-wound Skin Appearance) Scarring -Color (Riddhi-wound Skin Appearance) Hemosiderin Staining -Temperature (Riddhi-wound Skin No Abnormality Appearance) (Pt Warm) -Tenderness on Palpation (Riddhi-wound No Skin Appearance) -Ulcer Cleansing Wound Cleanser -Foul Odor after Cleansing No -Anesthetic Used 4% Lidocaine Solution [Edema Assessment] -Left Calf (cm) 35.5 -Left Ankle (cm) 23 WC - Nurse 2 - General Ulcer CM Notes Start: 02/18/20 14:03 Freq: Status: Active Protocol: Activity Type Activity Date Activity User E-Sign Co-Sign Detail Recorded Client Recorded Date Recorded By Document 02/25/20 15:07 RANDY [id number] 02/25/20 15:10 02/25/20 15:07 Wound Center Nurse 2 [Procedure/Treatment] #41 Left Rasmussen post op -Time 15:10 -Correct Patient Yes -Correct Side, Site, Position Yes -Correct Procedure Yes -Procedure Performed Yes -Type of Procedure Debridement -Clinical Debridement Subcutaneous -Post Debridement Size (cm) - Length 3.0 -Post Debridement Size (cm) - Width 3.8 -Post Debridement Size (cm) - Depth 0.2 -Total Square (cm) 11.40 -Wound/Ulcer Outcome Not Healed -Ulcer Cleansing Rinsed/ Irrigated with Saline -Foul Odor after Cleansing No -Bioengineered Tissue Yes -Type of bioengineered Tissue EPIFIX -Expiration Date 11/15/24 -Product Lot Number [id number] -Percent Used 100 -Saline Lot Number [id number] -Bleeding Controlled with Pressure -Offloading No -Treatment Response Procedure Tolerated Well [See Physician Procedure note for Specifics] Pain Scale: 0-10 Numeric [Pain] -Is Patient Pain Free? Yes Musculoskeletal: No Tenderness to Palpation of Joints or Extremities Neurological: Cranial nerves II-XII grossly intact Psych/Mental Status: Normal Affect, Appropriate Debridement Note Post-Debridement Measurements/Treatment WC - Nurse 2 - General Ulcer CM Notes Start: 02/18/20 14:03 Freq: Status: Active Protocol: Activity Type Activity Date Activity User E-Sign Co-Sign Detail Recorded Client Recorded Date Recorded By Document 02/18/20 15:04 [id number] 02/18/20 15:14 Document 02/25/20 15:07 [id number] 02/25/20 15:10 02/18/20 02/25/20 15:04 15:07 Wound Center Nurse 2 #44 L Hand Dorsal -Correct Patient No -Correct Side, Site, Position No -Correct Procedure No -Procedure Performed No -Post Debridement Size (cm) - Length 0 -Post Debridement Size (cm) - Width 0 -Post Debridement Size (cm) - Depth 0 -Total Square (cm) 0 -Wound/Ulcer Outcome Healed- Epithelialized #43 L LE sup -Correct Patient No -Correct Side, Site, Position No -Correct Procedure No -Procedure Performed No -Post Debridement Size (cm) - Length 0 -Post Debridement Size (cm) - Width 0 -Post Debridement Size (cm) - Depth 0 -Total Square (cm) 0 -Wound/Ulcer Outcome Healed- Epithelialized #42 Right Lateral LE -Correct Patient No -Correct Side, Site, Position No -Correct Procedure No -Procedure Performed No -Post Debridement Size (cm) - Length 0 -Post Debridement Size (cm) - Width 0 -Post Debridement Size (cm) - Depth 0 -Total Square (cm) 0 -Wound/Ulcer Outcome Healed- Epithelialized #41 Left Rasmussen post op -Time 15:06 15:10 -Correct Patient Yes Yes -Correct Side, Site, Position Yes Yes -Correct Procedure Yes Yes -Procedure Performed Yes Yes -Type of Procedure Debridement Debridement -Clinical Debridement Subcutaneous Subcutaneous -Post Debridement Size (cm) - Length 3.3 3.0 -Post Debridement Size (cm) - Width 4.2 3.8 -Post Debridement Size (cm) - Depth 0.2 0.2 -Total Square (cm) 13.86 11.40 -Wound/Ulcer Outcome Not Healed Not Healed -Ulcer Cleansing Rinsed/ Rinsed/ Irrigated with Irrigated with Saline Saline -Foul Odor after Cleansing No No -Bioengineered Tissue Yes Yes -Type of bioengineered Tissue EPIFIX EPIFIX -Expiration Date 11/15/24 11/15/24 -Product Lot Number [id number] -Percent Used 100 100 -Saline Lot Number [id number] -Bleeding Controlled with Pressure Pressure -Offloading No No -Treatment Response Procedure Procedure Tolerated Well Tolerated Well Pain Scale: 0-10 Numeric Is Patient Pain Free? Yes Yes Wound debrided: Lower lateral leg ulcer Laterality: Left Type of Debridement: Excisional debridement Anesthesia Used: 5% Lidocaine Gel Depth: Down to and including healthy tissue, in the subcutaneous layer Percentage of wound debrided: 100 Instrument Used: 7mm curette Tissue Removed: Subcutaneous tissue and slough Severity: Fat Layer Exposed Amount of bleeding with debridement: Mild Bleeding Controlled with: Pressure, Compression and gauze Patient tolerated procedure well Assessment/Plan Assessment: 1. Nonhealing hematoma ulcer left anterolateral leg. 2. Nonhealing ulcer left leg, superior. 3. Nonhealing ulcer right lateral lower leg. 4. Traumatic abrasion wound dorsum left hand. 5. History of Glioblastoma. 6. Frequent falls. 7. Venous insufficency of bilateral lower legs Plan: Wound care -Epifix #3 placed on left distal, anteriolateral leg. The left proximal anterior leg, right dorsal forearm, left dorsal hand skin tear have healed. Tubigrip double layer to bilateral lower legsShe did not tolerate the 3M 2 layer wraps. She removed them after one day. Continue Doxycycline for Staph ylococcus epidermidis and Staphylococcus lugdunensis, Methicillin resistant. Prealbumin from 01/06/20 was 19.6. Encourage nutritional supplementation with protein to help with the healing process. Encouraged her to stop smoking as it can have deleterious effects on wound healing. Consulted Palliative care for evaluation to help with chronic disease management and to see if there were any services that she qualifies for. They came last week to evaluate her and she states that they area setting up some services for her but she isn't sure exactly what. Patient is also waiting on MRI results to see if her Glioblastoma is increasing in size. Followup one week. [id number]: [id number] Skin sub graft trnk/arm/leg - 58 modifier
[2020-03-03 15:29] VITALS: BP 121/76; PULSE 61; RESP 18; TEMP 36.6; BMI 30.9
--- NOTE | 2020-03-03 17:01 | PCM.WC.PN ---
Type of Wound Date of Service: 03/03/20 Chief Complaint: Nonhealing hematoma ulcer left anterolateral leg. History of Wound: Surgery 01/04/20 - Surgical preparation left anterolateral leg with incision and drainage and evacuation and excisional debridement traumatic hematoma (33 cm2). Wound care - Epifix #3 with Tubigrip. Operative culture - Staphylococcus epidermidis and Staphylococcus lugdunensis, Methicillin resistant. She was placed on Doxycycline and has finished them. Prealbumin from 01/06/20 was 19.6. Encourage nutritional supplementation with protein to help the healing process. Today she denies fever. Her appetite is ok. She has a history of glioblastoma brain status post craniotomy, chemotherapy and is on long-term dexamethasone. Progress of Wound: Improved. - Physical Exam Vital Signs Temp Pulse Resp BP 97.8 F 61 18 121/76 H 03/03/20 15:29 03/03/20 15:29 03/03/20 15:29 03/03/20 15:29 Wound Measurements and Assessment WC - Nurse 1 - General Ulcer Measurement Start: 02/18/20 14:03 Freq: Status: Active Protocol: Activity Type Activity Date Activity User E-Sign Co-Sign Detail Recorded Client Recorded Date Recorded By Document 03/03/20 15:29 PL [id number] 03/03/20 15:41 PL 03/03/20 15:29 Wound Center Nurse 1 [Ulcer Assessment] #41 Left R[place]ussen post op -Combined with other wound No -Current Size (cm) - Length 2.7 -Current Size (cm) - Width 3.2 -Current Size (cm) - Depth 0.1 -Total Square Cm 8.64 -Photo Taken No -Epithelialization None Present -Tunneling No -Undermining/Tunneling No -Exudate Amt Medium -Exudate Type Serosanguineous -Granulation Amt Large (67-100%) -Granulation Quality [place] -Slough/Fibrin Yes -Necrosis Amt Small (1-33%) -Necrotic Tissue Type Adherent Slough -Texture (Riddhi-wound Skin Appearance) No Abnormality -Moisture (Riddhi-wound Skin Appearance No Abnormality ) -Color (Riddhi-wound Skin Appearance) No Abnormality -Temperature (Riddhi-wound Skin No Abnormality Appearance) (Pt Warm) -Ulcer Cleansing Rinsed/ Irrigated with Saline -Foul Odor after Cleansing No -Anesthetic Used 4% Lidocaine Solution WC - Nurse 2 - General Ulcer CM Notes Start: 03/03/20 10:57 Freq: Status: Active Protocol: Activity Type Activity Date Activity User E-Sign Co-Sign Detail Recorded Client Recorded Date Recorded By Document 03/03/20 16:09 RANDY [id number] 03/03/20 16:15 RANDY 03/03/20 16:09 Wound Center Nurse 2 [Procedure/Treatment] -Time 16:13 -Correct Patient Yes -Correct Side, Site, Position Yes -Correct Procedure Yes -Procedure Performed Yes -Type of Procedure Debridement -Clinical Debridement Subcutaneous -Tissue Removed Subcutaneous -Post Debridement (cm) - Length 2.5 -Post Debridement (cm) - Width 3 -Post Debridement (cm) - Depth 0.2 -Total Square (Post) (cm) 7.5 -Area of Debridement (cm) - Length 2.5 -Area of Debridement (cm) - Width 3 -Total Square (Area) (cm) 7.5 -Tunneling No -Undermining/Tunneling No -Circular Undermining No -Wound/Ulcer Outcome Healed- Surgical Closure -Foul Odor after Cleansing No -Bioengineered Tissue Yes -Type of Bioengineered Tissue Epifix Mesh -Expiration Date 11/15/24 -Product Lot Number [id number] -Percent Used 100 -Saline Lot Number [id number] -Offloading No -Treatment Response Procedure Not Tolerated Well -Debridement - Subq, 1st 20sq cm Yes -Apply Skin Sub/25 sq cm - Legs 1 Query Text:Total wound surface area up to 100 sq cm (4). -Epifix Mesh (per sq cm) 11 [See Physician Procedure note for Specifics] Pain Scale: 0-10 Numeric [Pain] -Is Patient Pain Free? Yes Debridement Note Post-Debridement Measurements/Treatment - Nurse 2 - General Ulcer CM Notes Start: 03/03/20 10:57 Freq: Status: Active Protocol: Activity Type Activity Date Activity User E-Sign Co-Sign Detail Recorded Client Recorded Date Recorded By Document 03/03/20 16:09 RANDY [id number] 03/03/20 16:15 RANDY 03/03/20 16:09 Wound Center Nurse 2 #41 Left Rasmussen post op -Time 16:13 -Correct Patient Yes -Correct Side, Site, Position Yes -Correct Procedure Yes -Procedure Performed Yes -Type of Procedure Debridement -Clinical Debridement Subcutaneous -Tissue Removed Subcutaneous -Post Debridement (cm) - Length 2.5 -Post Debridement (cm) - Width 3 -Post Debridement (cm) - Depth 0.2 -Total Square (Post) (cm) 7.5 -Area of Debridement (cm) - Length 2.5 -Area of Debridement (cm) - Width 3 -Total Square (Area) (cm) 7.5 -Tunneling No -Undermining/Tunneling No -Circular Undermining No -Wound/Ulcer Outcome Healed- Surgical Closure -Foul Odor after Cleansing No -Bioengineered Tissue Yes -Type of Bioengineered Tissue Epifix Mesh -Expiration Date 11/15/24 -Product Lot Number [id number] -Percent Used 100 -Saline Lot Number [id number] -Offloading No -Treatment Response Procedure Not Tolerated Well -Debridement - Subq, 1st 20sq cm Yes -Apply Skin Sub/25 sq cm - Legs 1 Query Text:Total wound surface area up to 100 sq cm (4). -Epifix Mesh (per sq cm) 11 Pain Scale: 0-10 Numeric Is Patient Pain Free? Yes Wound debrided: #41 Left anterolateral leg. Laterality: Left Wound Grade/Stage: 2. Type of Debridement: Excisional debridement Anesthesia Used: 4% Lidocaine Solution Depth: Down to and including healthy tissue, in the subcutaneous layer Percentage of wound debrided: 100 Instrument Used: 5mm curette Tissue Removed: subcutaneous tissue. Severity: Fat Layer Exposed Amount of bleeding with debridement: Mild Bleeding Controlled with: Pressure Patient tolerated procedure well, - - Epifix #4 applied today. Expiration - 11/15/24. Product Lot Number - [id number]. Percent Used - 100%. Saline Lot Number - [id number]. Assessment/Plan Assessment: 1. Nonhealing hematoma ulcer left anterolateral leg. 2. History of Glioblastoma. 3. Frequent falls. 4. Venous insufficency of bilateral lower legs Plan: Epifix #4 applied today followed by Tubigrip. She has finished the Doxycycline for operative culture 01/04/20 that showed Staphylococcus epidermidis and Staphylococcus lugdunensis, Methicillin resistant. Prealbumin from 01/06/20 was 19.6. Encourage nutritional supplementation with protein to help with the healing process. Encouraged her to stop smoking as it can have deleterious effects on wound healing. Followup one week. 150xxx-152xx: [id number] Skin sub graft trnk/arm/leg - 58 Modifier ICD-10 - L97.922, S80.12xA, I87.2, R29.6, C71.9
[2020-03-10 14:12] VITALS: BP 118/77; PULSE 77; RESP 16; TEMP 36.8; BMI 30.9
--- NOTE | 2020-03-10 15:10 | PCM.WC.PN ---
(1) Ulcer of left lower extremity with fat layer exposed Status: Chronic Current Visit: Yes Code(s): L97.922 - Non-pressure chronic ulcer of unspecified part of left lower leg with fat layer exposed (2) Traumatic open wound of right lower leg Status: Acute Current Visit: Yes Code(s): S81.801A - Unspecified open wound, right lower leg, initial encounter (3) Frequent falls Status: Chronic Current Visit: Yes Code(s): R29.6 - Repeated falls (4) Glioblastoma Status: Chronic Current Visit: Yes Code(s): C71.9 - Malignant neoplasm of brain, unspecified (5) Debility, unspecified Status: Chronic Current Visit: Yes Code(s): R53.81 - Other malaise Type of Wound Date of Service: 03/10/20 Chief Complaint: Nonhealing hematoma ulcer left anterolateral leg. History of Wound: Surgery 01/04/20 - Surgical preparation left anterolateral leg with incision and drainage and evacuation and excisional debridement traumatic hematoma (33 cm2). She also has a new traumatic puncture wound on her right lateral leg. Wound care - Epifix #4 with Tubigrip. Operative culture - Staphylococcus epidermidis and Staphylococcus lugdunensis, Methicillin resistant. She was placed on Doxycycline and has finished them. Prealbumin from 01/06/20 was 19.6. Encourage nutritional supplementation with protein to help the healing process. Today she denies fever. Her appetite is ok. She has a history of glioblastoma brain status post craniotomy, chemotherapy and is on long-term dexamethasone. Progress of Wound: Left leg ulcer is improved. New traumatic puncture wound on right lateral lower leg. - Physical Exam Vital Signs Temp Pulse Resp BP 98.2 F 77 16 118/77 03/10/20 14:12 03/10/20 14:12 03/10/20 14:12 03/10/20 14:12 General: Alert, No apparent distress HEENT: Atraumatic Oral: Moist Mucosa Lungs: Normal air movement Cardiovascular: Regular rate Extremities: Capillary Refill Less than 3 Seconds, Edema Skin: Ulcer/ Wound - Left leg ulcer is beefy pink with good granulation tissue. She has a new traumatic puncture wound on her right lateral leg that she is unsure how she obtained it. It is pink. Wound Measurements and Assessment WC - Nurse 1 - General Ulcer Measurement Start: 02/18/20 14:03 Freq: Status: Active Protocol: Activity Type Activity Date Activity User E-Sign Co-Sign Detail Recorded Client Recorded Date Recorded By Document 03/10/20 14:12 [facility] [id number] 03/10/20 14:30 [facility] 03/10/20 14:12 Wound Center Nurse 1 [Ulcer Assessment] #45- R LAT LE -Combined with other wound No -Current Size (cm) - Length 1.1 -Current Size (cm) - Width 1.4 -Current Size (cm) - Depth 0.7 -Total Square Cm 1.54 -Date of Last Picture (Recall this 03/10/20 field) -Photo Taken Yes -Epithelialization None Present -Tunneling No -Undermining/Tunneling No -Circular Undermining No -Exudate Amt Small -Exudate Type Serosanguineous -Wound Margin Distinct, Outline Attached -Granulation Amt Large (67-100%) -Granulation Quality Red -Slough/Fibrin Yes -Necrosis Amt Small (1-33%) -Necrotic Tissue Type Adherent Slough -Texture (Riddhi-wound Skin Appearance) Assessed, Localized Edema ,Scarring -Moisture (Riddhi-wound Skin Appearance Assessed ) -Color (Riddhi-wound Skin Appearance) Assessed, Ecchymosis, Erythema -Temperature (Riddhi-wound Skin No Abnormality Appearance) (Pt Warm) -Tenderness on Palpation (Riddhi-wound Yes Skin Appearance) -Ulcer Cleansing SOAPY WATER -Foul Odor after Cleansing No -Anesthetic Used 4% Lidocaine Solution #41 Left [place]ussen post op -Combined with other wound No -Current Size (cm) - Length 2.2 -Current Size (cm) - Width 2.6 -Current Size (cm) - Depth 0.1 -Total Square Cm 5.72 -Photo Taken No -Epithelialization Small 1-33% -Tunneling No -Undermining/Tunneling No -Circular Undermining No -Exudate Amt Medium -Exudate Type Serosanguineous -Wound Margin Distinct, Outline Attached -Granulation Amt Large (67-100%) -Granulation Quality Red -Slough/Fibrin Yes -Necrosis Amt Small (1-33%) -Necrotic Tissue Type Adherent Slough -Texture (Riddhi-wound Skin Appearance) Assessed, Scarring -Moisture (Riddhi-wound Skin Appearance Assessed,Dry/ ) Scaly -Color (Riddhi-wound Skin Appearance) Assessed -Temperature (Riddhi-wound Skin No Abnormality Appearance) (Pt Warm) -Tenderness on Palpation (Riddhi-wound No Skin Appearance) -Ulcer Cleansing soapy water -Foul Odor after Cleansing No -Anesthetic Used 4% Lidocaine Solution [Edema Assessment] -Lower Limb Edema Present Yes -Right Calf (cm) 36.9 -Right Ankle (cm) 20.8 -Left Calf (cm) 39.4 -Left Ankle (cm) 22.7 WC - Nurse 2 - General Ulcer CM Notes Start: 03/03/20 10:57 Freq: Status: Active Protocol: Activity Type Activity Date Activity User E-Sign Co-Sign Detail Recorded Client Recorded Date Recorded By Document 03/10/20 14:50 RANDY [id number] 03/10/20 14:58 RANDY 03/10/20 14:50 Wound Center Nurse 2 [Procedure/Treatment] #45- R LAT LE -Time 14:50 -Correct Patient Yes -Correct Side, Site, Position Yes -Correct Procedure Yes -Procedure Performed Yes -Type of Procedure Debridement -Clinical Debridement Subcutaneous -Tissue Removed Subcutaneous -Post Debridement (cm) - Length 1.2 -Post Debridement (cm) - Width 1.2 -Post Debridement (cm) - Depth 0.7 -Total Square (Post) (cm) 1.44 -Area of Debridement (cm) - Length 1.2 -Area of Debridement (cm) - Width 1.2 -Total Square (Area) (cm) 1.44 -Tunneling No -Undermining/Tunneling No -Circular Undermining No -Wound/Ulcer Outcome Not Healed -Ulcer Cleansing Rinsed/ Irrigated with Saline -Foul Odor after Cleansing No -Bioengineered Tissue No -Bleeding Controlled with Pressure -Offloading No -Treatment Response Procedure Tolerated Well -Debridement - Subq, 1st 20sq cm Yes #41 Left Rasmussen post op -Time 14:51 -Correct Patient Yes -Correct Side, Site, Position Yes -Correct Procedure Yes -Procedure Performed Yes -Type of Procedure Debridement -Clinical Debridement Subcutaneous -Tissue Removed Subcutaneous -Post Debridement (cm) - Length 2.4 -Post Debridement (cm) - Width 2.9 -Post Debridement (cm) - Depth 0.2 -Total Square (Post) (cm) 6.96 -Area of Debridement (cm) - Length 2.4 -Area of Debridement (cm) - Width 2.9 -Total Square (Area) (cm) 6.96 -Tunneling No -Undermining/Tunneling No -Circular Undermining No -Wound/Ulcer Outcome Not Healed -Ulcer Cleansing Rinsed/ Irrigated with Saline -Foul Odor after Cleansing No -Bioengineered Tissue Yes -Type of Bioengineered Tissue Epifix Mesh -Expiration Date 11/15/24 -Product Lot Number [id number] -Percent Used 100 -Saline Lot Number [id number] -Bleeding Controlled with Pressure -Offloading No -Treatment Response Procedure Tolerated Well -Debridement - Subq, 1st 20sq cm No -Epifix Mesh (per sq cm) 11 [See Physician Procedure note for Specifics] Pain Scale: 0-10 Numeric [Pain] -Is Patient Pain Free? Yes Musculoskeletal: Tenderness Neurological: Cranial nerves II-XII grossly intact Psych/Mental Status: Normal Affect, Appropriate Debridement Note Post-Debridement Measurements/Treatment WC - Nurse 2 - General Ulcer CM Notes Start: 03/03/20 10:57 Freq: Status: Active Protocol: Activity Type Activity Date Activity User E-Sign Co-Sign Detail Recorded Client Recorded Date Recorded By Document 03/03/20 16:09 [id number] 03/03/20 16:15 Document 03/10/20 14:50 [id number] 03/10/20 14:58 03/03/20 03/10/20 16:09 14:50 Wound Center Nurse 2 #45- R LAT LE -Time 14:50 -Correct Patient Yes -Correct Side, Site, Position Yes -Correct Procedure Yes -Procedure Performed Yes -Type of Procedure Debridement -Clinical Debridement Subcutaneous -Tissue Removed Subcutaneous -Post Debridement (cm) - Length 1.2 -Post Debridement (cm) - Width 1.2 -Post Debridement (cm) - Depth 0.7 -Total Square (Post) (cm) 1.44 -Area of Debridement (cm) - Length 1.2 -Area of Debridement (cm) - Width 1.2 -Total Square (Area) (cm) 1.44 -Tunneling No -Undermining/Tunneling No -Circular Undermining No -Wound/Ulcer Outcome Not Healed -Ulcer Cleansing Rinsed/ Irrigated with Saline -Foul Odor after Cleansing No -Bioengineered Tissue No -Bleeding Controlled with Pressure -Offloading No -Treatment Response Procedure Tolerated Well -Debridement - Subq, 1st 20sq cm Yes #41 Left [place]asmussen post op -Time 16:13 14:51 -Correct Patient Yes Yes -Correct Side, Site, Position Yes Yes -Correct Procedure Yes Yes -Procedure Performed Yes Yes -Type of Procedure Debridement Debridement -Clinical Debridement Subcutaneous Subcutaneous -Tissue Removed Subcutaneous Subcutaneous -Post Debridement (cm) - Length 2.5 2.4 -Post Debridement (cm) - Width 3 2.9 -Post Debridement (cm) - Depth 0.2 0.2 -Total Square (Post) (cm) 7.5 6.96 -Area of Debridement (cm) - Length 2.5 2.4 -Area of Debridement (cm) - Width 3 2.9 -Total Square (Area) (cm) 7.5 6.96 -Tunneling No No -Undermining/Tunneling No No -Circular Undermining No No -Wound/Ulcer Outcome Healed- Not Healed Surgical Closure -Ulcer Cleansing Rinsed/ Irrigated with Saline -Foul Odor after Cleansing No No -Bioengineered Tissue Yes Yes -Type of Bioengineered Tissue Epifix Mesh Epifix Mesh -Expiration Date 11/15/24 11/15/24 -Product Lot Number [id number] -Percent Used 100 100 -Saline Lot Number [id number] -Bleeding Controlled with Pressure -Offloading No No -Treatment Response Procedure Not Procedure Tolerated Well Tolerated Well -Debridement - Subq, 1st 20sq cm Yes No -Apply Skin Sub - each addt'l 25 sq cm 1 - Legs -Epifix Mesh (per sq cm) 11 11 Pain Scale: 0-10 Numeric Is Patient Pain Free? Yes Yes Wound debrided: Leg ulcer Laterality: Left Type of Debridement: Excisional debridement Anesthesia Used: 5% Lidocaine Gel Depth: in the subcutaneous layer Percentage of wound debrided: 100 Instrument Used: 5mm curette Tissue Removed: Subcutaneous tissue and slough Severity: Fat Layer Exposed Amount of bleeding with debridement: Mild Bleeding Controlled with: Pressure Patient tolerated procedure well - Additional Wound Wound debrided: lateral leg traumatic puncture wound Laterality: Right Type of Debridement: Excisional debridement Anesthesia Used: 5% Lidocaine Gel Depth: Down to and including healthy tissue, in the subcutaneous layer Percentage of wound debrided: 100 Instrument Used: 3mm curette Tissue Removed: Subcutaneous tissue and slough Severity: Fat Layer Exposed Amount of bleeding with debridement: Mild Bleeding Controlled with: Pressure Patient tolerated procedure: Patient tolerated procedure well Assessment/Plan Active Problems (Last Updated 12/16/17 @ 17:[address] Sari Hawk, DO) Ulcer of left lower extremity with fat layer exposed (Chronic) Frequent falls (Chronic) Glioblastoma (Chronic) Traumatic open wound of right lower leg (Acute) Debility, unspecified (Chronic) Assessment: 1. Nonhealing hematoma ulcer left anterolateral leg. 2. History of Glioblastoma. 3. Frequent falls. 4. Venous insufficency of bilateral lower legs Plan: Epifix #5 applied today to both ulcers followed by Tubigrip. She has finished the Doxycycline for operative culture 01/04/20 that showed Staphylococcus epidermidis and Staphylococcus lugdunensis, Methicillin resistant. Prealbumin from 01/06/20 was 19.6. Encourage nutritional supplementation with protein to help with the healing process. Encouraged her to stop smoking as it can have deleterious effects on wound healing. Followup one week. 111xxx-113xx: [id number] Debbi subq tissue 20 sq cm/< - 79 modifier 150xxx-152xx: [id number] Skin sub graft trnk/arm/leg - 58 modifier
[2020-03-17 12:57] VITALS: BP 122/69; PULSE 78; RESP 16; TEMP 36.7; BMI 30.9
--- NOTE | 2020-03-17 15:33 | PCM.WC.PN ---
(1) Ulcer of left lower extremity with fat layer exposed Status: Chronic Code(s): L97.922 - Non-pressure chronic ulcer of unspecified part of left lower leg with fat layer exposed (2) Traumatic open wound of right lower leg Status: Acute Code(s): S81.801A - Unspecified open wound, right lower leg, initial encounter (3) Ulcer of right foot Status: Acute Code(s): L97.519 - Non-pressure chronic ulcer of other part of right foot with unspecified severity (4) Frequent falls Status: Chronic Code(s): R29.6 - Repeated falls (5) Glioblastoma Status: Chronic Code(s): C71.9 - Malignant neoplasm of brain, unspecified (6) Debility, unspecified Status: Chronic Code(s): R53.81 - Other malaise Type of Wound Date of Service: 03/17/20 Chief Complaint: Nonhealing hematoma ulcer left anterolateral leg. History of Wound: Surgery 01/04/20 - Surgical preparation left anterolateral leg with incision and drainage and evacuation and excisional debridement traumatic hematoma (33 cm2). She also has a new traumatic puncture wound on her right dorsal foot. The right lateral leg ulcer is stable. Wound care - Epifix #6 with Tubigrip. Operative culture - Staphylococcus epidermidis and Staphylococcus lugdunensis, Methicillin resistant. She was placed on Doxycycline and has finished them. Prealbumin from 01/06/20 was 19.6. Encourage nutritional supplementation with protein to help the healing process. Today she denies fever. Her appetite is ok. She has a history of glioblastoma brain status post craniotomy, chemotherapy and is on long-term dexamethasone. Progress of Wound: Left leg ulcer is improved. New traumatic puncture wound on right dorsal foot . Right lateral lower leg stable. - Physical Exam Vital Signs Temp Pulse Resp BP 98.1 F 78 16 122/69 H 03/17/20 12:57 03/17/20 12:57 03/17/20 12:57 03/17/20 12:57 General: Alert, No apparent distress HEENT: Atraumatic Oral: Moist Mucosa Lungs: Normal air movement Cardiovascular: Regular rate Extremities: Capillary Refill Less than 3 Seconds, Diminished Peripheral Pulses, Edema Skin: Ulcer/ Wound - Left leg ulcer is beefy pink and improved. Right lower leg traumatic ulcer is mildly improved. New traumatic ulcer to right dorsal foot is red with periwound erythematous. Wound culture obtained today. Wound Measurements and Assessment WC - Nurse 1 - General Ulcer Measurement Start: 02/18/20 14:03 Freq: Status: Active Protocol: Activity Type Activity Date Activity User E-Sign Co-Sign Detail Recorded Client Recorded Date Recorded By Document 03/17/20 12:57 [facility] [id number] 03/17/20 13:09 [facility] 03/17/20 12:57 Wound Center Nurse 1 [Ulcer Assessment] #46 right dorsal foot -Combined with other wound No -Current Size (cm) - Length 0.4 -Current Size (cm) - Width 0.6 -Current Size (cm) - Depth 0.2 -Total Square Cm 0.24 -Date of Last Picture (Recall this 03/17/20 field) -Photo Taken Yes -Epithelialization None Present -Tunneling No -Undermining/Tunneling No -Circular Undermining No -Exudate Amt Medium -Exudate Type Serosanguineous -Wound Margin Flat & Intact -Granulation Amt Large (67-100%) -Granulation Quality [place] -Necrosis Amt Small (1-33%) -Necrotic Tissue Type Adherent Slough -Structure Exposed N/A -Texture (Riddhi-wound Skin Appearance) Assessed, Localized Edema -Moisture (Riddhi-wound Skin Appearance Assessed ) -Color (Riddhi-wound Skin Appearance) Assessed, Erythema -Temperature (Riddhi-wound Skin No Abnormality Appearance) (Pt Warm) -Tenderness on Palpation (Riddhi-wound Yes Skin Appearance) -Ulcer Cleansing Rinsed/ Irrigated with Saline -Foul Odor after Cleansing No -Anesthetic Used 4% Lidocaine Solution #45- R LAT LE -Combined with other wound No -Current Size (cm) - Length 1.1 -Current Size (cm) - Width 0.9 -Current Size (cm) - Depth 0.3 -Total Square Cm 0.99 -Photo Taken No -Epithelialization None Present -Tunneling No -Undermining/Tunneling No -Circular Undermining No -Exudate Amt None Present -Wound Margin Flat & Intact -Granulation Amt None Present (0 %) -Granulation Quality N/A -Slough/Fibrin Yes -Necrosis Amt Large (67-100%) -Necrotic Tissue Type Adherent Slough -Structure Exposed N/A -Texture (Riddhi-wound Skin Appearance) Assessed, Scarring -Moisture (Riddhi-wound Skin Appearance Assessed,Dry/ ) Scaly -Color (Riddhi-wound Skin Appearance) Assessed, Hemosiderin Staining -Temperature (Riddhi-wound Skin No Abnormality Appearance) (Pt Warm) -Tenderness on Palpation (Riddhi-wound Yes Skin Appearance) -Ulcer Cleansing Rinsed/ Irrigated with Saline -Foul Odor after Cleansing No -Anesthetic Used 4% Lidocaine Solution #41 Left Rasmussen post op -Combined with other wound No -Current Size (cm) - Length 1.8 -Current Size (cm) - Width 2.1 -Current Size (cm) - Depth 0.1 -Total Square Cm 3.78 -Photo Taken No -Epithelialization None Present -Tunneling No -Undermining/Tunneling No -Circular Undermining No -Exudate Amt Small -Exudate Type Serosanguineous -Wound Margin Flat & Intact -Granulation Amt Large (67-100%) -Granulation Quality [place] -Slough/Fibrin Yes -Necrosis Amt Small (1-33%) -Necrotic Tissue Type Adherent Slough -Structure Exposed N/A -Texture (Riddhi-wound Skin Appearance) Assessed, Localized Edema ,Scarring -Moisture (Riddhi-wound Skin Appearance Assessed,Dry/ ) Scaly -Color (Riddhi-wound Skin Appearance) Assessed, Hemosiderin Staining -Temperature (Riddhi-wound Skin No Abnormality Appearance) (Pt Warm) -Ulcer Cleansing Rinsed/ Irrigated with Saline -Foul Odor after Cleansing No -Anesthetic Used 4% Lidocaine Solution [Edema Assessment] -Lower Limb Edema Present Yes -Right Calf (cm) 36.4 -Right Ankle (cm) 22.6 -Left Calf (cm) 36.0 -Left Ankle (cm) 23.0 WC - Nurse 2 - General Ulcer CM Notes Start: 03/03/20 10:57 Freq: Status: Active Protocol: Activity Type Activity Date Activity User E-Sign Co-Sign Detail Recorded Client Recorded Date Recorded By Document 03/17/20 13:21 RANDY [id number] 03/17/20 13:31 RANDY 03/17/20 13:21 Wound Center Nurse 2 [Procedure/Treatment] #46 right dorsal foot -Time 13:21 -Correct Patient Yes -Correct Side, Site, Position Yes -Correct Procedure Yes -Procedure Performed Yes -Type of Procedure Debridement -Clinical Debridement Subcutaneous -Tissue Removed Subcutaneous -Post Debridement (cm) - Length 0.7 -Post Debridement (cm) - Width 0.7 -Post Debridement (cm) - Depth 0.5 -Total Square (Post) (cm) 0.49 -Area of Debridement (cm) - Length 0.7 -Area of Debridement (cm) - Width 0.7 -Total Square (Area) (cm) 0.49 -Tunneling No -Undermining/Tunneling No -Circular Undermining No -Wound/Ulcer Outcome Not Healed -Ulcer Cleansing Rinsed/ Irrigated with Saline -Foul Odor after Cleansing No -Bioengineered Tissue No -Bleeding Controlled with Pressure -Offloading No -Treatment Response Procedure Tolerated Well -Debridement - Subq, 1st 20sq cm No #45- R LAT LE -Time 13:22 -Correct Patient Yes -Correct Side, Site, Position Yes -Correct Procedure Yes -Procedure Performed Yes -Type of Procedure Debridement -Clinical Debridement Subcutaneous -Tissue Removed Subcutaneous -Post Debridement (cm) - Length 1.4 -Post Debridement (cm) - Width 1.3 -Post Debridement (cm) - Depth 0.7 -Total Square (Post) (cm) 1.82 -Area of Debridement (cm) - Length 1.4 -Area of Debridement (cm) - Width 1.3 -Total Square (Area) (cm) 1.82 -Tunneling No -Undermining/Tunneling No -Circular Undermining No -Wound/Ulcer Outcome Not Healed -Ulcer Cleansing Rinsed/ Irrigated with Saline -Foul Odor after Cleansing No -Bioengineered Tissue Yes -Type of Bioengineered Tissue Epifix Mesh -Expiration Date 11/15/24 -Product Lot Number [id number] -Percent Used 100 -Saline Lot Number [id number] -Bleeding Controlled with Pressure -Offloading No -Treatment Response Procedure Tolerated Well -Debridement - Subq, 1st 20sq cm Yes -Epifix Mesh (per sq cm) 0 #41 Left Rasmussen post op -Time 13:22 -Correct Patient Yes -Correct Side, Site, Position Yes -Correct Procedure Yes -Procedure Performed Yes -Type of Procedure Debridement -Clinical Debridement Subcutaneous -Tissue Removed Subcutaneous -Post Debridement (cm) - Length 2.3 -Post Debridement (cm) - Width 2.7 -Post Debridement (cm) - Depth 0.2 -Total Square (Post) (cm) 6.21 -Area of Debridement (cm) - Length 2.3 -Area of Debridement (cm) - Width 2.7 -Total Square (Area) (cm) 6.21 -Tunneling No -Undermining/Tunneling No -Circular Undermining No -Wound/Ulcer Outcome Not Healed -Ulcer Cleansing Rinsed/ Irrigated with Saline -Foul Odor after Cleansing No -Bioengineered Tissue Yes -Type of Bioengineered Tissue Epifix Mesh -Expiration Date 11/15/24 -Product Lot Number [id number] -Percent Used 100 -Saline Lot Number [id number] -Bleeding Controlled with Pressure -Offloading No -Treatment Response Procedure Tolerated Well -Debridement - Subq, 1st 20sq cm No -Apply Skin Sub - 1st 25 sq cm - Legs 1 -Epifix Mesh (per sq cm) 11 [See Physician Procedure note for Specifics] Pain Scale: 0-10 Numeric [Pain] -Is Patient Pain Free? Yes Musculoskeletal: Tenderness Neurological: Neuro grossly intact Psych/Mental Status: Normal Affect Debridement Note Post-Debridement Measurements/Treatment WC - Nurse 2 - General Ulcer CM Notes Start: 03/03/20 10:57 Freq: Status: Active Protocol: Activity Type Activity Date Activity User E-Sign Co-Sign Detail Recorded Client Recorded Date Recorded By Document 03/03/20 16:09 [id number] 03/03/20 16:15 Document 03/10/20 14:50 [id number] 03/10/20 14:58 Document 03/17/20 13:21 [id number] 03/17/20 13:31 03/03/20 03/10/20 03/17/20 16:09 14:50 13:21 Wound Center Nurse 2 #46 right dorsal foot -Time 13:21 -Correct Patient Yes -Correct Side, Site, Position Yes -Correct Procedure Yes -Procedure Performed Yes -Type of Procedure Debridement -Clinical Debridement Subcutaneous -Tissue Removed Subcutaneous -Post Debridement (cm) - Length 0.7 -Post Debridement (cm) - Width 0.7 -Post Debridement (cm) - Depth 0.5 -Total Square (Post) (cm) 0.49 -Area of Debridement (cm) - Length 0.7 -Area of Debridement (cm) - Width 0.7 -Total Square (Area) (cm) 0.49 -Tunneling No -Undermining/Tunneling No -Circular Undermining No -Wound/Ulcer Outcome Not Healed -Ulcer Cleansing Rinsed/ Irrigated with Saline -Foul Odor after Cleansing No -Bioengineered Tissue No -Bleeding Controlled with Pressure -Offloading No -Treatment Response Procedure Tolerated Well -Debridement - Subq, 1st 20sq cm No #45- R LAT LE -Time 14:50 13:22 -Correct Patient Yes Yes -Correct Side, Site, Position Yes Yes -Correct Procedure Yes Yes -Procedure Performed Yes Yes -Type of Procedure Debridement Debridement -Clinical Debridement Subcutaneous Subcutaneous -Tissue Removed Subcutaneous Subcutaneous -Post Debridement (cm) - Length 1.2 1.4 -Post Debridement (cm) - Width 1.2 1.3 -Post Debridement (cm) - Depth 0.7 0.7 -Total Square (Post) (cm) 1.44 1.82 -Area of Debridement (cm) - Length 1.2 1.4 -Area of Debridement (cm) - Width 1.2 1.3 -Total Square (Area) (cm) 1.44 1.82 -Tunneling No No -Undermining/Tunneling No No -Circular Undermining No No -Wound/Ulcer Outcome Not Healed Not Healed -Ulcer Cleansing Rinsed/ Rinsed/ Irrigated with Irrigated with Saline Saline -Foul Odor after Cleansing No No -Bioengineered Tissue No Yes -Type of Bioengineered Tissue Epifix Mesh -Expiration Date 11/15/24 -Product Lot Number [id number] -Percent Used 100 -Saline Lot Number [id number] -Bleeding Controlled with Pressure Pressure -Offloading No No -Treatment Response Procedure Procedure Tolerated Well Tolerated Well -Debridement - Subq, 1st 20sq cm Yes Yes -Epifix Mesh (per sq cm) 0 #41 Left Rasmussen post op -Time 16:13 14:51 13:22 -Correct Patient Yes Yes Yes -Correct Side, Site, Position Yes Yes Yes -Correct Procedure Yes Yes Yes -Procedure Performed Yes Yes Yes -Type of Procedure Debridement Debridement Debridement -Clinical Debridement Subcutaneous Subcutaneous Subcutaneous -Tissue Removed Subcutaneous Subcutaneous Subcutaneous -Post Debridement (cm) - Length 2.5 2.4 2.3 -Post Debridement (cm) - Width 3 2.9 2.7 -Post Debridement (cm) - Depth 0.2 0.2 0.2 -Total Square (Post) (cm) 7.5 6.96 6.21 -Area of Debridement (cm) - Length 2.5 2.4 2.3 -Area of Debridement (cm) - Width 3 2.9 2.7 -Total Square (Area) (cm) 7.5 6.96 6.21 -Tunneling No No No -Undermining/Tunneling No No No -Circular Undermining No No No -Wound/Ulcer Outcome Healed- Not Healed Not Healed Surgical Closure -Ulcer Cleansing Rinsed/ Rinsed/ Irrigated with Irrigated with Saline Saline -Foul Odor after Cleansing No No No -Bioengineered Tissue Yes Yes Yes -Type of Bioengineered Tissue Epifix Mesh Epifix Mesh Epifix Mesh -Expiration Date 11/15/24 11/15/24 11/15/24 -Product Lot Number [id number] -Percent Used 100 100 100 -Saline Lot Number [id number] -Bleeding Controlled with Pressure Pressure -Offloading No No No -Treatment Response Procedure Not Procedure Procedure Tolerated Well Tolerated Well Tolerated Well -Debridement - Subq, 1st 20sq cm Yes No No -Apply Skin Sub - 1st 25 sq cm - Legs 1 1 -Apply Skin Sub - each addt'l 25 sq cm 1 - Legs -Epifix Mesh (per sq cm) 11 11 11 Pain Scale: 0-10 Numeric Is Patient Pain Free? Yes Yes Yes - Nurse 3 - General Ulcer D/C NN Start: 03/03/20 23:13 Freq: Status: Active Protocol: Activity Type Activity Date Activity User E-Sign Co-Sign Detail Recorded Client Recorded Date Recorded By Document 03/10/20 15:09 [id number] 03/10/20 15:14 DL 03/10/20 15:09 Wound Care Nurse 3 #45- R LAT LE -Foul Odor after Cleansing No -Other Dressing epifix -Primary Dressing Covered/Secured with Dry Gauze & Roll Gauze, Secured with Tape #41 Left Rasmussen post op -Foul Odor after Cleansing No -Other Dressing epifix -Primary Dressing Covered/Secured with Dry Gauze & Roll Gauze, Secured with Tape Right -Tubular Bandage Double Layer -Size of Tubigrip Used Size E -Size E ($) 1 Left -Tubular Bandage Double Layer -Size of Tubigrip Used Size E -Size E ($) 1 Treatment Response Procedure Tolerated Well Pain Scale: 0-10 Numeric Is Patient Pain Free? Yes WC - Visit Discharge Discharge Condition Stable Ambulatory Status Ambulatory, Walker Transportation Private Auto Wound debrided: lower leg ulcer Laterality: Left Type of Debridement: Excisional debridement Anesthesia Used: 5% Lidocaine Gel Depth: Down to and including healthy tissue, in the subcutaneous layer Percentage of wound debrided: 100 Instrument Used: 7mm curette Tissue Removed: Subcutaneous tissue and slough Severity: Fat Layer Exposed Amount of bleeding with debridement: Mild Bleeding Controlled with: Pressure Patient tolerated procedure well - Additional Wound Wound debrided: lateral lower leg traumatic ulcer Laterality: Right Type of Debridement: Excisional debridement Anesthesia Used: 5% Lidocaine Gel Depth: Down to and including healthy tissue, in the subcutaneous layer Percentage of wound debrided: 100 Instrument Used: 3mm curette Tissue Removed: Subcutaneous tissue and slough Severity: Fat Layer Exposed Amount of bleeding with debridement: Mild Bleeding Controlled with: Pressure Patient tolerated procedure: Patient tolerated procedure well - Additional Wound Wound debrided: new traumatic ulcer right dorsal foot Laterality: Right Type of Debridement: Excisional debridement Anesthesia Used: 5% Lidocaine Gel Depth: Down to and including healthy tissue, in the subcutaneous layer Percentage of wound debrided: 100 Instrument Used: 3mm curette Tissue Removed: Subcutaneous tissue and slough Severity: Fat Layer Exposed Amount of bleeding with debridement: Mild Bleeding Controlled with: Pressure Patient tolerated procedure: Patient tolerated procedure well Assessment/Plan Assessment: 1. Nonhealing hematoma ulcer left anterolateral leg. 2. History of Glioblastoma. 3. Frequent falls. 4. Venous insufficency of bilateral lower legs Plan: Epifix #6 applied today to both the left leg and right lateral leg ulcers. 100% of the product was used. New traumatic ulcer of right dorsal foot debrided and wound culture obtained due to how the periwound is erythematous. Depending on the results of the cultures, it may necessitate the need for antibiotic therapy. Patient has no idea how she obtained this new ulcer. Will apply Silver daily to the right dorsal foot ulcer. Tubigrips bilaterally used for compression. She has finished the Doxycycline for operative culture 01/04/20 that showed Staphylococcus epidermidis and Staphylococcus lugdunensis, Methicillin resistant. Prealbumin from 01/06/20 was 19.6. Encourage nutritional supplementation with protein to help with the healing process. Encouraged her to stop smoking as it can have deleterious effects on wound healing. Followup one week. She will have a courtesy visit next week with another provider because of the holiday on her normally scheduled day. 111xxx-113xx: [id number] Debbi subq tissue 20 sq cm/< - 79 modifier 150xxx-152xx: [id number] Skin sub graft trnk/arm/leg - 58 modifer
== END 2020-03-17 23:59 ==
LOC: WC 13:00
PROVIDERS: Family Provider Student in an Organized Health Care Education/Training Program; PCP Student in an Organized Health Care Education/Training Program; Referring Provider Surgery; Visit Provider Surgery
DX: L97.822 Non-pressure chronic ulcer of other part of left lower leg with fat layer exposed (principal); R29.6 Repeated falls; C71.9 Malignant neoplasm of brain, unspecified; S81.831A Puncture wound without foreign body, right lower leg, initial encounter; X58.XXXA Exposure to other specified factors, initial encounter
CPT/HCPCS: 11042; 11045; 15271; 87070; 87075; 87077; 87186; 87205; Q4186

== ENCOUNTER 2020-04-02 15:10 | Inpatient (IN) | payer MEDICARE, SELFPAY ==
[2020-04-02 15:11] VITALS: BP 121/76; PULSE 72; RESP 15; TEMP 36.2; O2SAT 96; BMI 31.3
--- NOTE | 2020-04-02 15:52 | EKG12_ITS ---
Test Reason : FALL Blood Pressure : / mmHG Vent. Rate : 067 BPM Atrial Rate : 067 BPM P-R Int : 134 ms QRS Dur : 090 ms QT Int : 454 ms P-R-T Axes : 050 047 071 degrees QTc Int : 479 ms Sinus rhythm with marked sinus arrhythmia Otherwise normal ECG Confirmed by DONNA BAILEY, RADHA ([id number]), editor news ESTUARDO ROSA ([id number]) on 04/07/2020 1:26:35 PM Referred By: MERNA Confirmed By:RADHA THOMPSON MD
--- NOTE | 2020-04-02 15:52 | CT_ITS ---
STUDY: CT BRAIN WITHOUT CONTRAST REASON FOR EXAM: Female, 59 years old. INCREASED FALLS/TRUONG. HISTORY OF GLIOBLASTOMA AND SURGERY RADIATION DOSAGE (If Supplied By Facility): CTDIvol = ( 44.99 ) mGy, DLP = ( 796.11 ) mGycm TECHNIQUE: Transaxial CT imaging of the brain was performed without administration of intravenous contrast material. Individualized dose optimization techniques were used for this CT. COMPARISON: CT of the brain 01/08/2020. FINDINGS: Normal soft tissue structures. Postop change status post right parietal craniotomy Mild atrophy and moderate diffuse periventricular white matter ischemic changes possibly due to postradiation or chemotherapeutic changes. There is persistent vasogenic edema in the right parieto-occipital region with associated parenchymal calcifications which may be consistent with residual neoplasm. Normal basal ganglia and thalami. Normal brainstem. Normal cerebellum. Tiny chronic subdural effusion at the operative site. There is no intracranial hemorrhage. There are no findings of an acute ischemic infarction. Normal visualized paranasal sinuses. Examination is stable when compared with previous exam. CT/Brain/Head without Contrast IMPRESSION: No evidence for acute intracranial bleed Postsurgical changes and possible post radiation or chemotherapeutic white matter changes. Probable residual neoplasm stable since previous study. Electronically Signed: Gordon Mckinley MD at 17:05 EDT , Service support ,
--- NOTE | 2020-04-02 15:59 | ED.VIS.GEN ---
History of Present Illness Chief Complaint: Fall Informant: Patient, Family Narrative: Patient presents with family secondary to increased falls. Over the last week or 2 she is had increased confusion and more frequent falls. She does have a history of balance problems. Family states that she has had visual hallucinations and seeing people in her home. Today when home health came to assist her she was found laying in the neighbor's backyard. Family states that the only medication changes that she was recently started on Bactrim. - Past Medical History (1) Anxiety Status: Chronic (2) Chronic pain Status: Chronic (3) GERD (gastroesophageal reflux disease) Status: Chronic (4) Glioblastoma multiforme Status: Chronic (5) Hypertension Status: Chronic (6) Seizure disorder Status: Chronic Past Medical History - Allergies and Home Meds Allergies/Adverse Reactions: Allergies adhesive tape Adverse Reaction (Verified 04/02/20 15:11) VERY THIN STEROID SKIN WILL REMOVE SKIN IF ON TOO LONG bee Allergy (Uncoded 04/02/20 15:11) Hives Primary Care Physician: Loc Arizmendi DO [Primary Care Provider] - Prior records reviewed: Yes Surgical History: dilatation and curettage, - - skin graft LLE Lives: Alone Smoking Status: Current some day smoker - Family History Paternal Family History: Reports: - - Denies known paternal medical history including cardiac history. Maternal Family History: Reports: COPD - of COPD Review of Systems General: Denies: Chills, Fever Eyes: Denies: Visual changes - bilaterally ENT: Denies: Bilateral ear pain Cardiovascular: Reports: Chest pain - Rib pain Respiratory: Denies: Dyspnea Gastrointestinal: Denies: Abdominal pain, Nausea, Vomiting Musculoskeletal: Reports: Extremity Pain Skin: Reports: Wounds Neurological: Reports: Headache, Weakness Allergy: Denies: Uticaria Physical Exam Vital Signs/Narrative: Vital Signs Temp Pulse Resp BP Pulse Ox 04/02/20 15:11 97.2 F L 72 15 121/76 H 96 Inital Vital Signs reviewed: Yes General: Well nourished, Well developed Head: Normocephalic ENT: Moist mucous membranes Neck: Supple Cardiovascular: Regular rate, Regular rhythm Respiratory: No distress, CTA bilaterally Abdomen: Soft, Nontender Extremities: - - Patient has 2 skin tears noted to the left forearm, measuring 3 and 4 cm. She has multiple healing wounds noted to her lower legs with large areas of old appearing ecchymoses. Neurological: Alert, - - No focal neurologic deficits. Psychological: Normal affect Diagnostic/Tx/Re-eval Impressions Brain CT 04/02/20 15:52 IMPRESSION: No evidence for acute intracranial bleed Postsurgical changes and possible post radiation or chemotherapeutic white matter changes. Probable residual neoplasm stable since previous study. Electronically Signed: Gordon Mckinley MD at 17:05 EDT , Service support , Chest X-Ray 04/02/20 16:50 IMPRESSION: Mild discoid atelectasis at both lung bases. No acute cardiopulmonary pathology No definitive evidence for acute rib fracture however this may be further assessed with rib series if clinically warranted Electronically Signed: Gordon Mckinley MD at 17:31 EDT , Service support , 04/02/20 15:52 Brain/Head without Contrast [CT] Stat 04/02/20 16:50 Chest 1 View (Portable) [RAD] Stat Laboratory Results 04/02/20 04/02/20 04/02/20 16:10 16:15 16:15 WBC 7.4 RBC 4.00 L Hgb 12.8 Hct 38.8 MCV 97.0 MCH 32.0 MCHC 33.0 RDW Std Deviation 52.3 H RDW Coeff of Marylu 14.6 Plt Count 200 MPV 10.3 Immature Gran % (Auto) 1.400 H Neut % (Auto) 75.4 H Lymph % (Auto) 9.2 L [place] % (Auto) 12.4 H Eos % (Auto) 0.9 Baso % (Auto) 0.7 Absolute Neuts (auto) 5.6 Absolute Lymphs (auto) 0.68 L Nucleated RBC % 0 Sodium 136 Potassium 4.1 Chloride 105 Carbon Dioxide 27.0 Anion Gap 4 L BUN 22 H Creatinine 1.11 H Estim Creat Clear Calc 53.69 Est GFR (MDRD) Af Amer 64 Est GFR (MDRD) Non-Af 53 L BUN/Creatinine Ratio 19.8 Glucose 85 Calcium 9.3 Total Bilirubin 0.40 Direct Bilirubin 0.09 AST 32 ALT 32 Alkaline Phosphatase 64 Total Protein 6.9 Albumin 3.8 Globulin 3.1 Urine Color Yellow Urine Clarity Sl Cldy Urine pH 5.0 Ur Specific [place] 1.025 Urine Protein 30 H Urine Glucose (UA) Normal Urine Ketones 15 H Urine Occult Blood 10 H Urine Nitrite Negative Urine Bilirubin Negative Urine Urobilinogen 1 H Ur Leukocyte Esterase 500 H Urine RBC 0 SEEN Urine WBC 50-100 SEEN Ur Squamous Epith Cells 0-5 SEEN Urine Bacteria 4+ Urine Mucus 0 SEEN - EKG Initial EKG Interpretation: Sinus Rhythm - Sinus at 67 with no acute ischemia. - Medical Decision Making Head CT, chest x-ray, and laboratory evaluation is unremarkable. Patient does, however, have a UTI. This could certainly worsen her balance problems and lead to increased falls and confusion. As the patient does live alone I think she should be brought in the hospital for initial treatment and evaluation by physical therapy. She will be given a dose of Rocephin and urine culture will be sent. I will speak with the hospitalist. ED Disposition - Plan for ED Patient: Disposition: Acute Care Hospital [facility] Diagnosis: Cystitis, Falls, Confusion Referrals: Loc Arizmendi DO [Primary Care Provider] -
[2020-04-02 16:28] LABS: Mucous, Urine 0 SEEN /hpf (<or=2+); Red Blood Cells-Urine 0 SEEN /hpf (0-5)
[2020-04-02 16:31] LABS: Absolute Lymphocyte Count 0.68 X10^3/uL (0.83-4.51); Absolute Neutrophil Count 5.6 X10^3/uL (2.0-7.7); Basophil# 0.05 X10^3/uL; Basophil% 0.7 % (0-1); Eosinophil# 0.07 X10^3/uL; Eosinophils% 0.9 % (0-5); Hematocrit 38.8 % (37-47); Hemoglobin 12.8 g/dL (12.0-15.0); Lymphocyte # 0.68 X10^3/ul (4.0); Lymphocyte % 9.2 % (19-41); Mean Platelet Vol. 10.3 fl (6.2-12.0); Monocyte# 0.92 X10^3/uL; Monocyte% 12.4 % (0-10); NRBC Flagged by Analyzer 0 % (0-5); Neutrophil # 5.58 X10^3/uL (2.7-7.7); Neutrophil % 75.4 % (47-70); Platelet Count 200 K/mm3 (150-450); RBC Distribution Width CV 14.6 % (11.6-14.6); RBC Distribution Width SD 52.3 fl (35.1-43.9); White Blood Count 7.4 K/mm3 (4.4-11.0)
[2020-04-02 16:50] LABS: AST(SGOT) 32 U/L (15-37); Alanine Aminotransfer ALT/SGPT 32 U/L (13-56); Albumin, Serum 3.8 g/dL (3.2-5.0); Alkaline Phosphatase 64 U/L (45-117); Anion Gap 4 (5-15); BUN 22 mg/dL (7-18); BUN/Creat Ratio 19.8 RATIO (10-20); Bilirubin, Direct 0.09 mg/dL (0.00-0.30); Calcium,Total 9.3 mg/dL (8.5-10.1); Chloride 105 mmol/L (98-107); Creatinine, Serum 1.11 mg/dL (0.55-1.02); EST Glomerular Filtration Rate 53 mL/min (>60); Est Glom Filt Rate - Afr Amer 64 mL/min (>60); Estimated Creatinine Clearance 53.69 ml/min; Globulin 3.1 g/dL (2.2-4.2); Glucose 85 mg/dL (74-106); Potassium 4.1 mmol/L (3.5-5.1); Protein, Total 6.9 g/dL (6.4-8.2); Sodium Level 136 mmol/L (136-145)
--- NOTE | 2020-04-02 16:50 | RAD_ITS ---
STUDY: X-RAY CHEST REASON FOR EXAM: Female, 59 years old. INCREASED FALLING OVER THE LAST COUPLE DAYS; TWICE TODAY. PT WITH HEADACHE, RIB PAIN, AND BILATERAL LEG PAIN. TECHNIQUE: AP portable COMPARISON: 01/08/2020 FINDINGS: There is mild discoid atelectasis or scarring in both lower lobes. There is no demonstrated pleural abnormality. Normal size heart. Normal mediastinum and michelle. Normal visualized pulmonary arteries. Normal visualized aortic arch and descending thoracic aorta. Dorsal spine and shoulders demonstrate degenerative change. Normal visualized ribs, and clavicles.. There is no demonstrated abnormality of the visualized soft tissue structures of the upper abdomen. RAD/Chest 1 View (Portable) IMPRESSION: Mild discoid atelectasis at both lung bases. No acute cardiopulmonary pathology No definitive evidence for acute rib fracture however this may be further assessed with rib series if clinically warranted Electronically Signed: Gordon Mckinley MD at 17:31 EDT , Service support ,
[2020-04-02 16:55] LABS: Glucose, Dipstick Normal (Normal); Ketone-Dipstick 15 mg/dl (Negative); Leukocyte Esterase-Dipstick 500 /ul (Negative); Nitrite-Dipstick Negative (Negative); Occult Blood-Urine 10 /ul (Negative); Protein-Dipstick 30 mg/dl (Negative); Specific Gravity, Urine 1.025 (1.002-1.030); Urine Bilirubin Dipstick Negative (Negative); Urine Urobilinogen 1 mg/dl (Normal)
[2020-04-02 16:56] LABS: Color, Urine Yellow (Yellow); Urine Clarity Sl Cldy (Clear)
[2020-04-02 17:11] VITALS: BP 128/74; PULSE 62; RESP 16; O2SAT 96
[2020-04-02 17:21] LABS: White Blood Cells 50-100 SEEN /hpf (0-5)
[2020-04-02 17:22] LABS: Bacteria 4+ /hpf (None Seen); Squamous Epithelial Cells - UA 0-5 SEEN /hpf (5-10)
--- NOTE | 2020-04-02 19:06 | ED.RN ---
2 SKIN TEARS ON LEFT FOREARM, 1 ON RIGHT WRIST. SEVERAL SMALLER TEARS/ABRASIONS ON LEFT LOWER LEG. SCATTERED WOUNDS ON BILATERAL LOWERS EXTREMITIES IN VARIOUS STAGES OF HEALING. SKIN TEARS DRESSED WITH ADAPTIC AND OR TELFA AND WRAP.
[2020-04-02 19:22] VITALS: BP 130/81; PULSE 73; RESP 16; TEMP 36.6; O2SAT 97
[2020-04-02 19:23] VITALS: BMI 31.3
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
--- NOTE | 2020-04-02 19:45 | ED.RN ---
PER DAUGHTER DELORES PITTMAN, PT CAN GET COMBATIVE AT NIGHT. THEO WORKS WONDERS FOR HER. ALSO CAN CALL DAUGHTER ANY TIME DURING NIGHT IN ATTEMPT TO CALM PT. [phone]
[2020-04-02] MEDS: Ceftriaxone 1 GM/50 ML BAG IV (19:55)
[2020-04-02 20:08] VITALS: BMI 28.7
[2020-04-02 20:12] VITALS: BP 115/66; PULSE 72; RESP 16; TEMP 36.6; O2SAT 99
[2020-04-02] MEDS: Lactated Ringers 1,000 ML 75 ML IV (21:37)
[2020-04-02] MEDS: Famotidine 20 MG Tablet PO (21:37)
[2020-04-02] MEDS: QUEtiapine 25 MG Tablet PO (21:37)
[2020-04-02] MEDS: levETIRAcetam 750 MG Tablet PO (21:37)
[2020-04-02] MEDS: Sertraline 100 MG Tablet 150 MG PO (21:37)
[2020-04-02] MEDS: oxyCODONE 5 MG Tablet PO (21:45)
[2020-04-02] MEDS: MELATONIN 3 MG TABLET PO (21:45)
[2020-04-02] MEDS: 0.9% Saline Lock 10 ML Syringe IV (21:46)
[2020-04-02 22:05] VITALS: O2SAT 92
[2020-04-03 02:23] VITALS: BP 103/67; PULSE 57; RESP 16; TEMP 36.1; O2SAT 95
[2020-04-03 05:59] LABS: Absolute Lymphocyte Count 0.58 X10^3/uL (0.83-4.51); Basophil# 0.03 X10^3/uL; Basophil% 0.7 % (0-1); Eosinophil# 0.07 X10^3/uL; Eosinophils% 1.6 % (0-5); Hematocrit 38.5 % (37-47); Hemoglobin 12.2 g/dL (12.0-15.0); Lymphocyte # 0.58 X10^3/ul (4.0); Lymphocyte % 13.2 % (19-41); Mean Corp Hgb Conc 31.7 g/dL (32-36); Mean Corpuscular Hgb 31.3 pg (27.0-32.0); Mean Corpuscular Volume 98.7 fL (81-99); Monocyte# 0.61 X10^3/uL; Monocyte% 13.9 % (0-10); NRBC Flagged by Analyzer 0 % (0-5); Neutrophil # 3.04 X10^3/uL (2.7-7.7); POSITIVE DIFFERENTIAL YES; Platelet Count 155 K/mm3 (150-450); RBC Distribution Width CV 14.8 % (11.6-14.6); RBC Distribution Width SD 53.9 fl (35.1-43.9); White Blood Count 4.4 K/mm3 (4.4-11.0)
[2020-04-03 06:00] LABS: Differential Indicated SCAN CRITERIA MET
[2020-04-03 06:28] LABS: ALB/GLOB Ratio 1.1 RATIO (0.9-2.4); AST(SGOT) 20 U/L (15-37); Alanine Aminotransfer ALT/SGPT 27 U/L (13-56); Albumin, Serum 3.2 g/dL (3.2-5.0); Alkaline Phosphatase 61 U/L (45-117); Anion Gap 6 (5-15); BUN 13 mg/dL (7-18); BUN/Creat Ratio 17.5 RATIO (10-20); Calcium,Total 8.2 mg/dL (8.5-10.1); Chloride 107 mmol/L (98-107); Creatinine, Serum 0.74 mg/dL (0.55-1.02); EST Glomerular Filtration Rate 84 mL/min (>60); Est Glom Filt Rate - Afr Amer 102 mL/min (>60); Estimated Creatinine Clearance 80.53 ml/min; Globulin 2.9 g/dL (2.2-4.2); Glucose 80 mg/dL (74-106); Magnesium 1.9 mg/dL (1.6-2.6); Phosphorus 3.3 mg/dL (2.5-4.9); Potassium 3.6 mmol/L (3.5-5.1); Protein, Total 6.1 g/dL (6.4-8.2); Sodium Level 138 mmol/L (136-145); Thyroid Stim Hormone (TSH) 1.48 uIU/mL (0.358-3.74)
[2020-04-03 06:32] LABS: Atypical Lymphocyte RARE %; Differential Comment SCANNED
[2020-04-03] MEDS: Multivitamins,Therapeutic Tablet 1 TABLET PO (08:19)
[2020-04-03] MEDS: Cyanocobalamin 500 MCG Tablet PO (08:20)
[2020-04-03 09:15] VITALS: BP 90/55; PULSE 66; RESP 16; TEMP 36.8; O2SAT 95
--- NOTE | 2020-04-03 09:32 | NURSING ---
wound photo: left arm
--- NOTE | 2020-04-03 09:33 | NURSING ---
wound photo: bilateral lower legs
--- NOTE | 2020-04-03 09:33 | NURSING ---
skin photo: left posterior thigh bruise
[2020-04-03] MEDS: Enoxaparin 40 MG/0.4 ML Syringe SC (09:58)
[2020-04-03] MEDS: levETIRAcetam 750 MG Tablet PO ×2 (09:58→21:47)
[2020-04-03] MEDS: Famotidine 20 MG Tablet PO ×2 (09:58→21:47)
--- NOTE | 2020-04-03 10:46 | PCM.PN.HOSP ---
Patient Problems: Active and Suspected Problems (Last Reviewed 04/02/20 @ 19:[address] Lisa Ridley, DO) Cystitis (Acute) Falls (Acute) Confusion (Acute) Subjective: Doing better and feels a little better today. No issues overnight. Vitals/I&O's: Vital Signs Temp Pulse Resp BP Pulse Ox 96.9 F L 57 L 16 103/67 95 04/03/20 02:23 04/03/20 02:23 04/03/20 02:23 04/03/20 02:23 04/03/20 02:23 Oxygen Delivery Method Room Air Weight: 188 lb 11.451 oz Body Mass Index (BMI) 28.7 Intake and Output for Last 24 Hours 04/01/20 04/02/20 04/03/20 23:59 23:59 23:59 Intake Total 50 / 50 920 / 920 Balance 50 / 50 920 / 920 General: Alert, Oriented x3, Cooperative, No apparent distress HEENT: Atraumatic, PERRLA, EOMI, Normocephalic Oral: Moist Mucosa Neck: Supple, No JVD Lungs: Clear to auscultation, Normal air movement, No rhonchi, No wheeze, No rales Cardiovascular: Regular rate, Regular Rhythm, Normal S1, Normal S2, No murmurs Abdomen: Soft, Non Tender, Non-Distended, No Hepato-splenomegaly Skin: Ulcer/ Wound - Left lower extremity, chronic Neurological: Neuro grossly intact, Sensory exam intact to light touch and pain Psych/Mental Status: Normal Affect, Appropriate Laboratory Results 04/02/20 16:10: Urine Color Yellow, Urine Clarity Sl Cldy, Urine pH 5.0, Ur Specific Lander 1.025, Urine Protein 30 H, Urine Glucose (UA) Normal, Urine Ketones 15 H, Urine Occult Blood 10 H, Urine Nitrite Negative, Urine Bilirubin Negative, Urine Urobilinogen 1 H, Ur Leukocyte Esterase 500 H, Urine RBC 0 SEEN, Urine WBC 50-100 SEEN, Ur Squamous Epith Cells 0-5 SEEN, Urine Bacteria 4+, Urine Mucus 0 SEEN 04/02/20 16:15: WBC 7.4, RBC 4.00 L, Hgb 12.8, Hct 38.8, MCV 97.0, MCH 32.0, MCHC 33.0, RDW Std Deviation 52.3 H, RDW Coeff of Marylu 14.6, Plt Count 200, MPV 10.3, Immature Gran % (Auto) 1.400 H, Neut % (Auto) 75.4 H, Lymph % (Auto) 9.2 L, Brown % (Auto) 12.4 H, Eos % (Auto) 0.9, Baso % (Auto) 0.7, Absolute Neuts (auto) 5.6, Absolute Lymphs (auto) 0.68 L, Nucleated RBC % 0 04/02/20 16:15: Sodium 136, Potassium 4.1, Chloride 105, Carbon Dioxide 27.0, Anion Gap 4 L, BUN 22 H, Creatinine 1.11 H, Estim Creat Clear Calc 53.69, Est GFR (MDRD) Af Amer 64, Est GFR (MDRD) Non-Af 53 L, BUN/Creatinine Ratio 19.8, Glucose 85, Calcium 9.3, Total Bilirubin 0.40, Direct Bilirubin 0.09, AST 32, ALT 32, Alkaline Phosphatase 64, Total Protein 6.9, Albumin 3.8, Globulin 3.1 04/03/20 05:35: WBC 4.4, RBC 3.90 L, Hgb 12.2, Hct 38.5, MCV 98.7, MCH 31.3, MCHC 31.7 L, RDW Std Deviation 53.9 H, RDW Coeff of Marylu 14.8 H, Plt Count 155, MPV 10.0, Immature Gran % (Auto) 1.600 H, Neut % (Auto) 69.0, Lymph % (Auto) 13.2 L, Brown % (Auto) 13.9 H, Eos % (Auto) 1.6, Baso % (Auto) 0.7, Absolute Neuts (auto) 3.0, Absolute Lymphs (auto) 0.58 L, Nucleated RBC % 0, Differential Comment SCANNED, Atypical Lymphocytes RARE 04/03/20 05:35: Sodium 138, Potassium 3.6, Chloride 107, Carbon Dioxide 25.0, Anion Gap 6, BUN 13, Creatinine 0.74, Estim Creat Clear Calc 80.53, Est GFR (MDRD) Af Amer 102, Est GFR (MDRD) Non-Af 84, BUN/Creatinine Ratio 17.5, Glucose 80, Calcium 8.2 L, Phosphorus 3.3, Magnesium 1.9, Total Bilirubin 0.30, AST 20, ALT 27, Alkaline Phosphatase 61, Total Protein 6.1 L, Albumin 3.2, Globulin 2.9, Albumin/Globulin Ratio 1.1, TSH 1.48 04/03/20 05:35: Miscellaneous Test Cancelled 04/03/20 05:35: Levetiracetam Pending Current Medications Albuterol Sulfate (Ventolin Aerosols) 2.5 mg INHALATION Q2H PRN PRN PRN Reason: Shortness of Breath/Wheezing Cyanocobalamin (Vitamin B12) 500 mcg PO DAILY@0800 [facility] Last Admin: 04/03/20 08:20 Dose: 500 mcg Documented by: Dexamethasone (Decadron) 3 mg PO DAILYCM [facility] Last Admin: 04/03/20 08:19 Dose: 3 mg Documented by: Docusate Sodium (Colace) 100 mg PO BID PRN PRN PRN Reason: Constipation Enoxaparin Sodium (Lovenox) 40 mg SC DAILY [facility] Last Admin: 04/03/20 09:58 Dose: 40 mg Documented by: Famotidine (Pepcid) 20 mg PO BID [facility] Last Admin: 04/03/20 09:58 Dose: 20 mg Documented by: Ceftriaxone Sodium 2 gm/ (Sodium Chloride) 50 mls @ 100 mls/hr IV Q24 [facility] Last Admin: 04/03/20 09:54 Dose: 100 mls/hr Documented by: Lactated Ringer's () 1,000 mls @ 75 mls/hr IV .[id number] [facility] Last Infusion: 04/03/20 09:53 Dose: 0 mls/hr Documented by: Levetiracetam (Keppra Tablet) 750 mg PO BID [facility] Last Admin: 04/03/20 09:58 Dose: 750 mg Documented by: Melatonin (Melatonin) 3 mg PO QHS PRN PRN PRN Reason: INSOMNIA Last Admin: 04/02/20 21:45 Dose: 3 mg Documented by: [facility]ivit[facility] ([facility]amin) [facility] Last Admin: 04/03/20 08:19 Dose: 1 tablet Documented by: Nutritional Formula (Lactose Free) (Ensure Enlive) 120 ml PO 4X/DAY [facility] Last Admin: 04/03/20 10:01 Dose: 120 ml Documented by: Ondansetron HCl (Zofran) 4 mg IV Q8H PRN PRN PRN Reason: NAUSEA/VOMITING Oxycodone HCl (Oxyir) 5 mg PO Q4H PRN PRN PRN Reason: Pain Score 4-10/10 Last Admin: 04/02/20 21:45 Dose: 5 mg Documented by: Quetiapine Fumarate (Seroquel) 25 mg PO QHS [facility] Last Admin: 04/02/20 21:37 Dose: 25 mg Documented by: Sertraline HCl (Zoloft) 150 mg PO QHS [facility] Last Admin: 04/02/20 21:37 Dose: 150 mg Documented by: Sodium Chloride () 10 - 40 ml IV UD PRN PRN Reason: SALINE FLUSH Last Admin: 04/02/20 21:46 Dose: 10 ml Documented by: Medical Necessity - Tobacco Use Smoking Status: Current some day smoker Tobacco Use: Cigarettes Assessment/Plan All Active Problems (Last Reviewed 04/02/20 @ 19:[address] Lisa Ridley, DO) Cystitis (Acute) Falls (Acute) Confusion (Acute) Abrasion of hand, left (Acute) Traumatic hematoma of left lower leg (Acute) Ulcer of upper extremity (Acute) Skin tear of left lower leg without complication (Acute) Abrasion of right leg (Acute) Abrasion of left leg (Acute) 1. Recurrent falls with weakness to her lower extremities, inability to complete ADLs/metabolic encephalopathy secondary to UTI/slowly progressing memory issues/seizure disorder -She is status post craniectomy and chemoradiation for a glioblastoma -After surgery she has been on long-term dexamethasone and Keppra -Urine culture is pending, continue with Rocephin -She is also had changes in her mood with intermittent bursts of anger and volatile emotions at home, she was therefore placed on 150 mg of Zoloft as well as Seroquel 25 mg at bedtime, she will need to follow-up with [facility] where she had a craniectomy -Continue with PT/OT -Case management to evaluate possible placement 2. 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 GERD -Stable -Continue with Pepcid DVT: Lovenox Inpatient E&M: [id number] [facility] Hosp L2
[2020-04-03] MEDS: Lactated Ringers 1,000 ML 75 ML IV (10:55)
[2020-04-03 11:00] VITALS: BP 93/59; PULSE 64; RESP 16; TEMP 36.7; O2SAT 95
[2020-04-03 11:01] VITALS: BP 106/71; BP 111/63; BP 93/59; PULSE 64; PULSE 76; PULSE 97
--- NOTE | 2020-04-03 11:42 | CASEMGMT ---
Social Work Assessment Referral Date: 04/03/2020 Date of Assessment: 04/03/2020 Reason for consult: Falls Informant: SW Personal Status: SW met with pt to complete initial assessment. SW introduced self and role at [facility]. Pt alert and to name, place, unsure of time. Pt thought it was March 06 and the day was Tuesday. Pt states that she lives alone in a one story home with one step to enter. Pt states that her MIL lives across the street and her five siblings live within five minutes of her. Pt states that she has a ramp to enter the home and DME include cane, walker, and wheelchair. Pt states that she was independent with ADLs. PCP is Dr. Arizmendi and Pharmacy is [facility] in [place]? Per previous notes, pt's preferred pharmacy was [facility] in [place]. Pt states that she is currently active with [facility]. Pt states that she also gets MOW, unsure if she has a CM through [facility]. Pt states that Hospice has also been out to see her but cannot state if she is active with Hospice or Palliative, states she may be active with Palliative care. Pt informed this worker to call Marine because she will know if pt has Palliative or not. Pt states that her daughter Marine is HCPOA. Pt states that her cousin, brother, ALETA are good support for her. Pt states Marine has her own heart issues going on. Pt states that her cousin and her cousin's daughter are planning on moving in with her. Pt then states that she had a niece and her niece's that were living with her and they weren't supposed to be living with her but no one believes her that they were living with her. Pt states that her daughter Marine has told her that no one is living with her. Per H+P, pt has had increased confusion, visual hallucinations and paranoia. Pt also has a UTI. Substance Abuse Hx: Pt states that she smokes cigarettes now and then. Pt states that she has been stressed lately due to family issues. SW offered support to pt. Pt denied additional substance abuse/use. Mental Health Hx: Per H+P, pt has anxiety and depression HHC: Pt active with [facility] SNF: Pt states she has been to [facility] before and TCU SW spoke with pt regarding discharge plans. Pt states she prefers to return home at discharge. SW informed pt that PT/OT will work with pt and make recommendations at discharge. Pt states if it is needed, she would be agreeable to SNF. Per previous notes, pt did have and APS report made. JOZEF placed a call to Yael at [facility] and asked about APS referral. Yael states pt has no active APS case. The last time APS saw pt was in February and at that time, pt's niece and her boyfriend were not living with pt. Yael states that pt's step daughter Marine is involved and pt's care and pt had a Palliative Referral made through [facility]. JOZEF placed a call to pt's daughter Marine and left message to call this worker back regarding pt. JOZEF placed a call to [facility], spoke with Betty and asked if pt is active with Palliative. Betty states she will relay message to staff and give this worker a call back to let this worker know if pt is active with Palliative. Plan: TBD pending PT/OT Pricilla Cintron BLOOD OR BLOOD BANK TECHNICIAN, DEPUTY CHIEF COUNSEL
--- NOTE | 2020-04-03 13:42 | CASEMGMT ---
Social Work Note JOZEF received call from pt's daughter Marine. Marine confirms that pt lives alone and she and pt's Mother In Law help as much as they can. Marine states she is only able to visit pt 1x week. Marine states pt has weekly wound center appointments that she does to. Marine states pt has been needing more assistance in the home and pt has been more confused lately. Marine states pt has been having hallucinations both visual and auditory for the last six months. Pt has [facility] with an RN that visits every 3 days, JOZEF, and is active with [facility]. Marine states pt does have a bath aide but it just depends on pt's mood if she allows the bath aide to come into the home. Marine states pt can go to being pleasant to being aggressive. Marine has safety concerns with pt living home alone due to pt's increased confusion, hallucinations, falls, and pt's inability to clean or sweep the home. Marine confirms that at one time pt's niece and boyfriend was living with pt and that was last year from January 2019-May 2019. Marine states pt's nice and boyfriend were stealing from pt, trashing pt's house, signing and cashing pt's check and they had to get an eviction notice to them for them to leave. Marine states pt's niece and boyfriend have a do not contact for pt. Marine states pt still thinks that they are in her home, especially at night, and pt will call Marine throughout the night. Marine states that they have changed the locks three times to try and show pt that her niece and the boyfriend can't get into the home. Marine states pt does have a walker at home but pt has to be prompted to use walker. Marine states that if pt is alone, she will not use her walker and that leads to her falling. Marine think that it is pt's brain cancer that is affecting her. Marine states that she would like pt to go to a SNF and prefers [facility] as pt has a nice that works there. JOZEF explained referral process and that pt will need pre-cert. Marine states that pt has also been to TCU before. SW in to speak with pt. Pt didn't remember that PT/OT worked with her today. Per PT/OT pt walked min assist of 1, 22 ft. SW informed pt that recommendation is SNF and informed pt that Marine prefers [facility]. Pt confirms that she has a niece that works at [facility] and is agreeable to referral being sent. SW placed a call to [facility] and updated Andra on referral. SW faxed referral. Plan: SNF pending acceptance and pre-cert Pricilla Cintron CROP RANCH HAND, ENDLESS TRACK VEHICLE MECHANIC
[2020-04-03 13:56] VITALS: BP 99/69; PULSE 68; RESP 14; TEMP 37.1; O2SAT 95
--- NOTE | 2020-04-03 14:23 | CASEMGMT ---
Social Work Note JOZEF received message from Rosy RN at [facility]. Pt is active with [facility]. JOZEF placed a call to Rosy ([phone]). Rosy confirms pt is active with Palliative Care. Roys also states concerns with pt returning home at discharge. Rosy states pt has had recent MRI of the brain that showed increase size of pt's brain tumor. Rosy states pt hasn't seen an oncologist in a year. Rosy asked to be updated when pt discharges. Pricilla Cintron PHYSICS TEACHER, PACK WORKER
--- NOTE | 2020-04-03 14:36 | CASEMGMT ---
Social Work Note Per medical record librarian questions, pt has completed HCPOA and LW, haven't provided copy to [facility] and unable to bring in copy. Pricilla Cintron CUT PLUG PACKER, MOLDING UTILITY WORKER
--- NOTE | 2020-04-03 14:49 | CASEMGMT ---
Social Work Note SW received call from Andra at [facility] stating they are able to accept pt and will submit for pre-cert. Plan: [facility] pending pre-cert Pricilla Cintron MSW, ACADEMIC GUIDANCE SPECIALIST
[2020-04-03 19:53] VITALS: BP 101/71; PULSE 61; RESP 16; TEMP 36.8; O2SAT 94
[2020-04-03] MEDS: Sertraline 100 MG Tablet 150 MG PO (21:47)
[2020-04-03] MEDS: QUEtiapine 25 MG Tablet PO (21:47)
[2020-04-04] MEDS: Lactated Ringers 1,000 ML 75 ML IV (00:11)
[2020-04-04 02:00] VITALS: BP 141/83; PULSE 55; RESP 16; TEMP 36.6; O2SAT 94
[2020-04-04 02:49] VITALS: PULSE 55
[2020-04-04] MEDS: Famotidine 20 MG Tablet PO (09:00)
[2020-04-04] MEDS: levETIRAcetam 750 MG Tablet PO (09:00)
[2020-04-04] MEDS: oxyCODONE 5 MG Tablet PO (09:00)
[2020-04-04] MEDS: Multivitamins,Therapeutic Tablet 1 TABLET PO (09:01)
[2020-04-04] MEDS: Cyanocobalamin 500 MCG Tablet PO (09:01)
[2020-04-04] MEDS: Enoxaparin 40 MG/0.4 ML Syringe SC (09:01)
[2020-04-04 09:28] VITALS: BP 99/65; PULSE 61; RESP 18; TEMP 36.8; O2SAT 95
--- NOTE | 2020-04-04 10:11 | PN_ITS ---
Patient Problems: Active and Suspected Problems (Last Reviewed 04/02/20 @ 19:[address] Lisa Ridley, DO) Cystitis (Acute) Falls (Acute) Confusion (Acute) Subjective: Doing well up and walking with physical therapy today. Vitals/I&O's: Vital Signs Temp Pulse Resp BP Pulse Ox 98.3 F 61 18 99/65 95 04/04/20 09:28 04/04/20 09:28 04/04/20 09:28 04/04/20 09:28 04/04/20 09:28 Oxygen Delivery Method Room Air Weight: 188 lb 11.451 oz Body Mass Index (BMI) 28.7 Orthostatic Vital Signs Start: 04/03/20 11:01 Freq: q24h Status: Active Protocol: Activity Type Activity Date Activity User E-Sign Co-Sign Detail Recorded Client Recorded Date Recorded By Document 04/03/20 11:01 KHADIJAH [id number] 04/03/20 11:07 KHADIJAH 04/03/20 11:01 Orthostatic Vitals Standing -Blood Pressure (90/60-120/80) 106/71 -Extremity Use Right Arm -Pulse Rate (60-100) 97 Sitting -Blood Pressure (90/60-120/80) 111/63 -Extremity Use Right Arm -Pulse Rate (60-100) 76 Lying -Blood Pressure (90/60-120/80) 93/59 L -Extremity Use Right Arm -Pulse Rate (60-100) 64 Intake and Output for Last 24 Hours 04/02/20 04/03/20 04/04/20 23:59 23:59 23:59 Intake Total 50 / 50 1648.75 / 1948.75 2277.5 / 2277.5 Output Total 300 / 400 400 / 400 Balance 50 / 50 1348.75 / 1548.75 1877.5 / 1877.5 General: Alert, Oriented x3, Cooperative, No apparent distress HEENT: Atraumatic, PERRLA, EOMI, Normocephalic Oral: Moist Mucosa Neck: Supple, No JVD Lungs: Clear to auscultation, Normal air movement, No rhonchi, No wheeze, No rales Cardiovascular: Regular rate, Regular Rhythm, Normal S1, Normal S2, No murmurs Abdomen: Soft, Non Tender, Non-Distended, No Hepato-splenomegaly Skin: Ulcer/ Wound - Left lower extremity, chronic Neurological: Neuro grossly intact, Sensory exam intact to light touch and pain Psych/Mental Status: Normal Affect, Appropriate Current Medications Acetaminophen (Tylenol) 650 mg PO Q6H PRN PRN PRN Reason: Pain Score 1-10/10 Albuterol Sulfate (Ventolin Aerosols) 2.5 mg INHALATION Q2H PRN PRN PRN Reason: Shortness of Breath/Wheezing Cyanocobalamin (Vitamin B12) 500 mcg PO DAILY@0800 [facility] Last Admin: 04/04/20 09:01 Dose: 500 mcg Documented by: Dexamethasone (Decadron) 3 mg PO DAILYCM [facility] Last Admin: 04/04/20 09:00 Dose: 3 mg Documented by: Docusate Sodium (Colace) 100 mg PO BID PRN PRN PRN Reason: Constipation Enoxaparin Sodium (Lovenox) 40 mg SC DAILY [facility] Last Admin: 04/04/20 09:01 Dose: 40 mg Documented by: Famotidine (Pepcid) 20 mg PO BID [facility] Last Admin: 04/04/20 09:00 Dose: 20 mg Documented by: Ceftriaxone Sodium 2 gm/ (Sodium Chloride) 50 mls @ 100 mls/hr IV Q24 [facility] Last Admin: 04/04/20 09:17 Dose: 100 mls/hr Documented by: Lactated Ringer's () 1,000 mls @ 75 mls/hr IV .[id number] [facility] Last Infusion: 04/04/20 09:17 Dose: 0 mls/hr Documented by: Levetiracetam (Keppra Tablet) 750 mg PO BID [facility] Last Admin: 04/04/20 09:00 Dose: 750 mg Documented by: Melatonin (Melatonin) 3 mg PO QHS PRN PRN PRN Reason: INSOMNIA Last Admin: 04/02/20 21:45 Dose: 3 mg Documented by: Multivitamins ([facility]itamin) [facility] Last Admin: 04/04/20 09:01 Dose: 1 tablet Documented by: Nutritional Formula (Lactose Free) (Ensure Enlive) 120 ml PO 4X/DAY [facility] Last Admin: 04/04/20 09:01 Dose: 120 ml Documented by: Ondansetron HCl (Zofran) 4 mg IV Q8H PRN PRN PRN Reason: NAUSEA/VOMITING Oxycodone HCl (Oxyir) 5 mg PO Q4H PRN PRN PRN Reason: Pain Score 4-10/10 Last Admin: 04/04/20 09:00 Dose: 5 mg Documented by: Quetiapine Fumarate (Seroquel) 25 mg PO QHS [facility] Last Admin: 04/03/20 21:47 Dose: 25 mg Documented by: Sertraline HCl (Zoloft) 150 mg PO QHS [facility] Last Admin: 04/03/20 21:47 Dose: 150 mg Documented by: Sodium Chloride () 10 - 40 ml IV UD PRN PRN Reason: SALINE FLUSH Last Admin: 04/02/20 21:46 Dose: 10 ml Documented by: STROKE Vital Signs/Narrative: Vital Signs Temp Pulse Resp BP Pulse Ox 04/04/20 09:28 98.3 F 61 18 99/65 95 Medical Necessity - Tobacco Use Smoking Status: Current some day smoker Tobacco Use: Cigarettes Assessment/Plan All Active Problems (Last Reviewed 04/02/20 @ 19:[address] Lisa Ridley, DO) Cystitis (Acute) Falls (Acute) Confusion (Acute) Abrasion of hand, left (Acute) Traumatic hematoma of left lower leg (Acute) Ulcer of upper extremity (Acute) Skin tear of left lower leg without complication (Acute) Abrasion of right leg (Acute) Abrasion of left leg (Acute) 1. Recurrent falls with weakness to her lower extremities, inability to complete ADLs/metabolic encephalopathy secondary to UTI/slowly progressing memory issues/seizure disorder -She is status post craniectomy and chemoradiation for a glioblastoma -After surgery she has been on long-term dexamethasone and Keppra -Urine culture is pending, continue with Rocephin -She is also had changes in her mood with intermittent bursts of anger and volatile emotions at home, she was therefore placed on 150 mg of Zoloft as well as Seroquel 25 mg at bedtime, she will need to follow-up with [facility] where she had a craniectomy -Continue with PT/OT -Case management to evaluate possible placement 2. 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 GERD -Stable -Continue with Pepcid DVT: Lovenox Inpatient E&M: [id number] Subs Hosp L2
--- NOTE | 2020-04-04 14:24 | PCM.TXEXTCAR ---
- Diet 04/02/20 20:36 Diet: Regular - General Food consistency:: Regular Liquid Consistency:: Regular/Thin Is pt able to select menu?: Yes - Routine Orders/Code Status Code Status: Full Code - Wound(s) rfa Wound Type: Abrasion top rt foot Wound Type: Abrasion left elbow Wound Type: Skin Tear lfa Wound Type: Skin Tear Dressing Change: Adaptic left calf Wound Type: Abrasion Dressing Change: Adaptic posterior rt calf Wound Type: Abrasion left lateral wrist/forearm Wound Type: Skin Tear Dressing Change: Adaptic - Therapies Physical Therapy: Eval and Treat Occupational Therapy: Eval and Treat - Allergies/Procedures Done in Hospital Allergies/Adverse Reactions: Allergies adhesive tape Adverse Reaction (Verified 04/02/20 15:11) VERY THIN STEROID SKIN WILL REMOVE SKIN IF ON TOO LONG bee Allergy (Uncoded 04/02/20 15:11) Hives Procedures: None - Type of Care/Length of Stay Estimated LOS: Convalescent Care Less Than 30 days Type of Care Needed: Skilled Rehab Potential: Good Prognosis: Good - Additional Orders/Day of Discharge Day of Discharge: 04/04/20 - Dietary and Speech Recommendations Dietitian Recommendations/Changes: Continue Regular diet. Continue ONS Ensure Enlive 120 ml w/ medpass and will provide 2 extra oz protein w/ meals - Follow Up Care Primary Care Physician: Loc Arizmendi DO [Primary Care Provider] - Please follow up with your Primary Care Physician in: 3-5 days
[2020-04-04 14:28] VITALS: BP 121/66; PULSE 61; RESP 16; TEMP 37.2; O2SAT 95
--- NOTE | 2020-04-04 14:48 | CASEMGMT ---
Social Work Note JOZEF received call from Andra at [facility] stating pre-cert has been obtained and pt is able to discharge today. Physician updated. JOZEF updated Andra that pt's COVID test is still pending. Andra states pt can admit today without COVID test as pt is not showing any symptoms. RN updated this worker that pt's daughter Marine was at [facility] and stated she could transport pt. JOZEF updated Andra that pt's daughter Marine will be transporting pt. Andra states understanding. JOZEF faxed completed discharge paperwork to [facility] including transfer to extended care facility, signed medication list, any scripts and COVID screening tool. Original in SNF folder and copy on pt's chart. SW in to update pt on acceptance to [facility] and discharge today. Pt states understanding. JOZEF placed a call to pt's daughter Marine and left message that pt is able to discharge whenever Marine is available to transport pt. RN updated. JOZEF completed convalescent 7000 in [facility]. Original in SNF folder and copy on pt's chart. Plan: [facility] skilled today with pt's family transport pt. Pricilla Cintron VICE PRESIDENT OF SOFTWARE ENGINEERING, TABLE GAMES SUPERVISOR
--- NOTE | 2020-04-04 15:12 | DS.PCM_ITS ---
Discharge Date and Diagnosis - Problem List Patient Problems: Active and Suspected Problems (Last Reviewed 04/02/20 @ 19:[address] Lisa Ridley DO) Cystitis (Acute) Falls (Acute) Confusion (Acute) Date of Admission: 04/02/20 Date of Discharge: 04/04/20 - Primary Discharge Diagnosis Acute Problems: Active Problems (Last Reviewed 04/02/20 @ 19:[address] Lisa Ridley DO) Cystitis (Acute) Falls (Acute) Confusion (Acute) - Secondary Discharge Diagnosis Chronic Problems: Chronic Problems (Last Reviewed 04/02/20 @ 19:[address] Lisa Ridley DO) Ulcer of left lower extremity with fat layer exposed (Chronic) Status post skin graft (Chronic) Open wound of left lower leg (Chronic) open surgical hematoma wound left anterolateral leg Venous insufficiency of both lower extremities (Chronic) Ulcer of upper extremity, limited to breakdown of skin (Chronic) Frequent falls (Chronic) Glioblastoma (Chronic) GERD (gastroesophageal reflux disease) (Chronic) Seizure disorder (Chronic) Hypertension (Chronic) Anxiety (Chronic) Chronic pain (Chronic) Neuropathic pain (Chronic) Other complications of skin graft (allograft) (autograft) (Chronic) Failed skin graft (Chronic) Complication of skin graft (Chronic) Glioblastoma multiforme (Chronic) Ulcers of both lower legs (Chronic) multiple infected ulcers bilateral legs L97.919 Wound, open, lower limb with complication (Chronic) Hospital Course and Treatment Imaging Results: Clinical Impression(s) from Imaging Studies Brain CT 04/02/20 15:52 IMPRESSION: No evidence for acute intracranial bleed Postsurgical changes and possible post radiation or chemotherapeutic white matter changes. Probable residual neoplasm stable since previous study. Electronically Signed: Gordon Mckinley MD at 17:05 EDT , Service support , Chest X-Ray 04/02/20 16:50 IMPRESSION: Mild discoid atelectasis at both lung bases. No acute cardiopulmonary pathology No definitive evidence for acute rib fracture however this may be further assessed with rib series if clinically warranted Electronically Signed: Gordon Mckinley MD at 17:31 EDT , Service support , Consultations 04/02/20 20:35 Consult: Onc/Wound/fish machine feeder Routine Comment: Operations: None Procedures: None Summary of Care Provided: Per HPI: The patient is a 59 year old F who is well known to the hospitalist service for debility and failure to thrive who presented to the ED on 04/02/2020 with increased confusion and more frequent falls. Per family she has been having visual hallucinations and paranoia and has been carrying around a knife to protect herself. She recently dropped a knife on her foot and cut her foot. She was recently placed on bactrim but is unable to tell me why. She is a very poor historian and although is currently A&O x4 is able to give me very little information. She does have a h/o a GBM that was dx in 2016 and was treated with surgery and ? XRT. She was brought to the ED today after a home health nurse found her lying on the ground of her neighbors yard. In the ED a CT was done and shows no changes. Her CBC is overall unremarkable. She has an elevated sCr at 1.11. Her UA looks infected with + leuk esterase and + WBC/4+ bacteria. Her VSS and her EKG is at baseline when compared to prior. On exam she has multiple ecc hymotic areas on her arms and legs and is c/o L sided rib pain a CXR was done and does not show any rib fractures. Hospital Course: 1. Recurrent falls with weakness to her lower extremities, inability to complete ADLs/metabolic encephalopathy secondary to UTI/slowly progressing memory issues/seizure disorder secondary to treatment of her glioblastoma- 59-year-old female who is been in the hospital a few times within the last 6 months because of episodes of metabolic encephalopathy as well as recurrent falls. This time she appears to have been diagnosed as an outpatient with a UTI and was started on Bactrim. She was transitioned to Rocephin here in the hospital and seems to be doing well with that. She will be transitioned to Omnicef as an outpatient when she is discharged today to detention facility for further rehab. No changes were made to her long-term medications of Decadron, Keppra, Seroquel, and Zoloft to continue to help with her seizure disorder as well as issues from the chemoradiation and craniectomy for her glioblastoma. She is supposed to follow[facility]up with [facility] who has been treating her glioblastoma in the past. Urine culture is demonstrating 1000- 10,000 CFU's, this is likely consistent with partial treatment with the Bactrim as an outpatient. Therefore we will continue with 5-day treatment of Torito on discharge. I discussed discharge plan with her she expressed understanding of the risks and benefits of going to a detention facility. 2. 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 Her wound appears much better compared to what it was in December after she had the wound VAC placed. Appreciate wound care nurses assessment of her. Her home medications were continued where appropriate. Patient Problems: Active and Suspected Problems (Last Reviewed 04/02/20 @ 19:[address] Lisa Ridley DO) Cystitis (Acute) Falls (Acute) Confusion (Acute) - Physical Exam Vitals/I&O's: Vital Signs Temp Pulse Resp BP Pulse Ox 98.9 F 61 16 121/66 H 95 04/04/20 14:28 04/04/20 14:28 04/04/20 14:28 04/04/20 14:28 04/04/20 14:28 Oxygen Delivery Method Room Air Weight: 188 lb 11.451 oz Body Mass Index (BMI) 28.7 Orthostatic Vital Signs Start: 04/03/20 11:01 Freq: q24h Status: Active Protocol: Activity Type Activity Date Activity User E-Sign Co-Sign Detail Recorded Client Recorded Date Recorded By Document 04/03/20 11:01 [id number] 04/03/20 11:07 [id number] 04/03/20 11:01 Orthostatic Vitals Standing -Blood Pressure (90/60-120/80) 106/71 -Extremity Use Right Arm -Pulse Rate (60-100) 97 Sitting -Blood Pressure (90/60-120/80) 111/63 -Extremity Use Right Arm -Pulse Rate (60-100) 76 Lying -Blood Pressure (90/60-120/80) 93/59 L -Extremity Use Right Arm -Pulse Rate (60-100) 64 Intake and Output for Last 24 Hours 04/02/20 04/03/20 04/04/20 23:59 23:59 23:59 Intake Total 50 / 50 1648.75 / 1948.75 3155.0 / 3155.0 Output Total 300 / 400 400 / 400 Balance 50 / 50 1348.75 / 1548.75 2755.0 / 2755.0 General: Alert, Oriented x3, Cooperative, No apparent distress HEENT: Atraumatic, PERRLA, EOMI, Normocephalic Oral: Moist Mucosa Neck: Supple, No JVD Lungs: Clear to auscultation, Normal air movement, No rhonchi, No wheeze, No rales Cardiovascular: Regular rate, Regular Rhythm, Normal S1, Normal S2, No murmurs Abdomen: Soft, Non Tender, Non-Distended, No Hepato-splenomegaly Skin: Ulcer/ Wound - Left lower extremity, chronic Neurological: Neuro grossly intact, Sensory exam intact to light touch and pain Psych/Mental Status: Normal Affect, Appropriate Microbiology Past 72 Hours 04/02/20 16:10 Urine Catheter - Catheter Urine Culture - Preliminary Gram negative kristopher Laboratory Results 04/04/20 13:55: COVID-19 (JANET) Pending Current Medications Acetaminophen (Tylenol) 650 mg PO Q6H PRN PRN PRN Reason: Pain Score 1-10/10 Albuterol Sulfate (Ventolin Aerosols) 2.5 mg INHALATION Q2H PRN PRN PRN Reason: Shortness of Breath/Wheezing Cyanocobalamin (Vitamin B12) 500 mcg PO DAILY@0800 [facility] Last Admin: 04/04/20 09:01 Dose: 500 mcg Documented by: [facility] Admin: 04/04/20 09:00 Dose: 3 mg Documented by: Docusate Sodium (Colace) 100 mg PO BID PRN PRN PRN Reason: Constipation Enoxaparin Sodium (Lovenox) 40 mg SC DAILY [facility] Last Admin: 04/04/20 09:01 Dose: 40 mg Documented by: Famotidine (Pepcid) 20 mg PO BID [facility] Last Admin: 04/04/20 09:00 Dose: 20 mg Documented by: Ceftriaxone Sodium 2 gm/ (Sodium Chloride) 50 mls @ 100 mls/hr IV Q24 [facility] Last Infusion: 04/04/20 09:47 Dose: Infused Documented by: Lactated Ringer's () 1,000 mls @ 75 mls/hr IV .[id number] [facility] Last Infusion: 09/18/20 14:28 Dose: Infused Documented by: Levetiracetam (Keppra Tablet) 750 mg PO BID [facility] Last Admin: 04/04/20 09:00 Dose: 750 mg Documented by: Melatonin (Melatonin) 3 mg PO QHS PRN PRN PRN Reason: INSOMNIA Last Admin: 04/02/20 21:45 Dose: 3 mg Documented by: [facility]it[facility] ([facility]itamin) [facility] Last Admin: 04/04/20 09:01 Dose: 1 tablet Documented by: Nutritional Formula (Lactose Free) (Ensure Enlive) 120 ml PO 4X/DAY [facility] Last Admin: 04/04/20 09:01 Dose: 120 ml Documented by: Ondansetron HCl (Zofran) 4 mg IV Q8H PRN PRN PRN Reason: NAUSEA/VOMITING Oxycodone HCl (Oxyir) 5 mg PO Q4H PRN PRN PRN Reason: Pain Score 4-10/10 Last Admin: 04/04/20 09:00 Dose: 5 mg Documented by: Quetiapine Fumarate (Seroquel) 25 mg PO QHS [facility] Last Admin: 04/03/20 21:47 Dose: 25 mg Documented by: Sertraline HCl (Zoloft) 150 mg PO QHS [facility] Last Admin: 04/03/20 21:47 Dose: 150 mg Documented by: Sodium Chloride () 10 - 40 ml IV UD PRN PRN Reason: SALINE FLUSH Last Admin: 04/02/20 21:46 Dose: 10 ml Documented by: Call your doctor if you observe: Fever of 101 or Higher, Shortness of breath, Dizziness, Fainting spells, Swelling in the ankles, Chest pain, Increased palpitations (irregular heartbeat) Home Medications: Medications to take at Discharge Dexamethasone 3 mg PO DAILY 03/02/17 Melatonin 6 mg PO QHS 01/03/20 Quetiapine Fumarate [Seroquel] 25 mg PO QHS 01/03/20 Senna [Senokot] 1 tab PO BID 01/03/20 Sertraline HCl [Zoloft] 150 mg PO QHS 01/03/20 Acetaminophen [Tylenol Extra Strength] 1,000 mg PO BID 01/08/20 Cyanocobalamin [Vitamin B12] 500 mcg PO DAILY@0800 01/08/20 Famotidine 20 mg PO BID 01/08/20 Levetiracetam [Keppra] 750 mg PO BID 01/08/20 Multivitamins,Therapeutic [Multivitamin] 1 tab PO DAILY 01/08/20 Cefdinir [Omnicef [equiv]] 300 mg PO Q12H #10 cap 04/04/20 Following Prescriptions Were Given to Patient: Cefdinir [Omnicef [equiv]] 300 mg PO Q12H #10 cap Primary Care Physician: Loc Arizmendi DO [Primary Care Provider] - Please follow up with your Primary Care Physician in: 3-5 days Disposition: [facility] facility Minutes spent on discharge:: 35 Patient Condition:: Stable Medical Necessity - Tobacco Use Smoking Status: Current some day smoker Tobacco Use: Cigarettes Meaningful Use Info Meaningful Use Diagnoses (Choose all that apply): None applicable Inpatient E&M: [address] [facility]
--- NOTE | 2020-04-04 15:31 | NURSING ---
Report given to [facility].
--- NOTE | 2020-04-04 16:06 | CASEMGMT ---
Social Work Note SW received call from pt's daughter Marine stating she will be at [facility] in about 15-20 minutes and will transport pt to [facility] [place]. RN updated. SW placed a call to Andra at [facility] [place] and updated her. SW updated irrigation technician to fax COVID results to [facility] [place] once they are available for pt. Pricilla Cintron INVENTORY TECHNICIAN, FORENSIC ANTHROPOLOGIST
[2020-04-10 06:55] LABS: KEPPRA (LEVETIRACETAM) 28.4 ug/mL (10.0-40.0)
== END 2020-04-04 17:07 | disposition skilled nursing facility (03) | DRG 689 ==
LOC: ED 19:09 → MS3 19:51
PROVIDERS: Admitting Provider Internal Medicine; Emergency Provider Emergency Medicine; PCP Student in an Organized Health Care Education/Training Program; Visit Provider Family Medicine
DX: N30.00 Acute cystitis without hematuria (principal); G93.41 Metabolic encephalopathy; N17.9 Acute kidney failure, unspecified; L97.925 Non-pressure chronic ulcer of unspecified part of left lower leg with muscle involvement without evidence of necrosis; F22 Delusional disorders; R29.6 Repeated falls; I10 Essential (primary) hypertension; K21.9 Gastro-esophageal reflux disease without esophagitis; G40.909 Epilepsy, unspecified, not intractable, without status epilepticus; Z79.899 Other long term (current) drug therapy; R07.81 Pleurodynia; Z85.841 Personal history of malignant neoplasm of brain; F32.9 Major depressive disorder, single episode, unspecified; R62.7 Adult failure to thrive; R53.81 Other malaise; F17.210 Nicotine dependence, cigarettes, uncomplicated; Z79.2 Long term (current) use of antibiotics
CPT/HCPCS: 36415; 70450; 71045; 80048; 80053; 80076; 80177; 81001; 83735; 84100; 84443; 85025; 87077; 87086; 87088; 87186; 87635; 93005; 97110; 97116; 97162; 97166; 97530; 97802; 99251; 99284; C9803; J7030; J7120; A4216; G0463; J0696; U0003

== ENCOUNTER → 2020-06-20 16:11 | Outpatient (CLI) | payer MEDICARE, SELFPAY ==
[2020-06-20 18:16] LABS: Hemoglobin A1c 5.4 % (3.8-5.6)
[2020-06-20 20:45] LABS: Color, Urine Yellow (Yellow); Glucose, Dipstick Normal (Normal); Ketone-Dipstick Negative (Negative); Leukocyte Esterase-Dipstick 100 /ul (Negative); Nitrite-Dipstick Negative (Negative); Occult Blood-Urine 10 /ul (Negative); Protein-Dipstick 15 mg/dl (Negative); Urine Bilirubin Dipstick Negative (Negative); Urine Clarity Cloudy (Clear); Urine Urobilinogen Normal (Normal)
== END ==
PROVIDERS: PCP Student in an Organized Health Care Education/Training Program; Referring Provider Student in an Organized Health Care Education/Training Program; Visit Provider Student in an Organized Health Care Education/Training Program
DX: R73.03 Prediabetes (principal); Z87.440 Personal history of urinary (tract) infections
CPT/HCPCS: 81002; 83036; 87086; 87088

== ENCOUNTER 2020-07-04 19:20 | Emergency (ER) | payer MEDICARE, SELFPAY ==
[2020-07-04 19:23] VITALS: BP 108/74; PULSE 82; RESP 17; TEMP 37; O2SAT 94; BMI 32.4
--- NOTE | 2020-07-04 19:33 | CT_ITS ---
STUDY: CT CERVICAL SPINE WITHOUT CONTRAST REASON FOR EXAM: Female, 60 years old. FELL DOWN BASEMENT STAIRS. HX OF BRAIN TUMOR (GLIOBLASTOMA) HAD A CRANIOTOMY./Acute traumatic injury of the cervical spine. RADIATION DOSAGE (If Supplied By Facility): CTDIvol = ( 26.49 ) mGy, DLP = ( 474.52 ) mGycm TECHNIQUE: High resolution transaxial imaging was performed without contrast material. Sagittal and coronal images were reconstructed. Individualized dose optimization techniques were used for this CT. COMPARISON: Prior cervical spine imaging no 01/03/2020 FINDINGS: Normal craniovertebral junction. Normal anterior atlantoaxial articulation. Normal odontoid process. There is straightening of the normal cervical lordosis. Demineralized osseous structures without acute fracture deformity. Old mild superior endplate compression of T1 included in the [id number]. Moderate disc narrowing and uncovertebral arthrosis at C5-6 without central stenosis. Mild foraminal narrowing. Minimal degenerative changes at other cervical levels. Normal visualized soft tissue structures. CT/Spine Cervical without Contras IMPRESSION: Straightening of the cervical spine with otherwise normal alignment. Demineralized osseous structures without acute fracture of the cervical spine. Degenerative disc and joint changes at C5-6 resulting in mild bilateral foraminal narrowing. Otherwise minimal degenerative changes. Old mild superior endplate compression deformity of T1 included in the [id number] stable from prior exam. Electronically Signed: Cande Soria MD at 20:33 EST , Service support ,
[2020-07-04 19:36] VITALS: BP 106/77; PULSE 86; RESP 17; TEMP 37; O2SAT 96
--- NOTE | 2020-07-04 19:39 | ED.DCSUM_ITS ---
History of Present Illness Chief Complaint: Fall Informant: Patient, Family Onset: Today Current Severity: Moderate Maximum Severity: Moderate Narrative: Patient presents after fall down approximately 15 stairs. Patient denies striking her head or loss of consciousness. She does have multiple skin tears as well as a near degloving over the anterior right lower leg. - Past Medical History (1) GERD (gastroesophageal reflux disease) Status: Chronic (2) Glioblastoma multiforme Status: Chronic (3) Hypertension Status: Chronic (4) Seizure disorder Status: Chronic Past Medical History - Allergies and Home Meds Allergies/Adverse Reactions: Allergies adhesive tape Adverse Reaction (Verified 04/02/20 15:11) VERY THIN STEROID SKIN WILL REMOVE SKIN IF ON TOO LONG bee Allergy (Uncoded 04/02/20 15:11) Hives Primary Care Physician: Loc Arizmendi DO [Primary Care Provider] - Prior records reviewed: Yes Surgical History: dilatation and curettage, - - skin graft LLE Lives: With Family Smoking Status: Current every day smoker - Family History Paternal Family History: Reports: - - Denies known paternal medical history including cardiac history. Maternal Family History: Reports: COPD - of COPD Review of Systems General: Denies: Chills, Fever Eyes: Denies: Visual changes - bilaterally ENT: Denies: Bilateral ear pain Cardiovascular: Denies: Chest pain Respiratory: Denies: Dyspnea, Cough Gastrointestinal: Denies: Abdominal pain, Vomiting Musculoskeletal: Reports: Back pain, Extremity Pain Skin: Reports: Wounds Neurological: Denies: Headache Hematologic: Reports: Easy bruising Physical Exam Vital Signs/Narrative: Vital Signs Temp Pulse Resp BP Pulse Ox 07/04/20 19:23 98.6 F 82 17 108/74 94 Inital Vital Signs reviewed: Yes General: Well nourished, Well developed Head: Normocephalic Eyes: Perrl, EOMI ENT: Moist mucous membranes Neck: Supple, - - No C-spine tenderness. Cardiovascular: Regular rate, Regular rhythm Respiratory: No distress, CTA bilaterally Abdomen: Soft, Nontender Extremities: - - Mild deformity to left wrist. Mild to moderate deformity right wrist. Patient able to wiggle fingers of both sides. Skin: - - Left forearm has a 5 x 2 cm skin tear. Left samuel has a 5 cm linear skin tear. Right forearm has a 5 x 2 and a 2 x 2 centimeter skin tear. The right samuel has a large 20 x 10 cm degloving injury over the anterior surface. Neurological: Alert, - - Oriented x1-2, at baseline per daughter at bedside. Psychological: Normal affect Diagnostic/Tx/Re-eval Impressions Cervical Spine CT 07/04/20 19:33 IMPRESSION: Straightening of the cervical spine with otherwise normal alignment. Demineralized osseous structures without acute fracture of the cervical spine. Degenerative disc and joint changes at C5-6 resulting in mild bilateral foraminal narrowing. Otherwise minimal degenerative changes. Old mild superior endplate compression deformity of T1 included in the [id number] stable from prior exam. Electronically Signed: Cande Soria MD at 20:33 EST , Service support , Brain CT 07/04/20 20:10 IMPRESSION: No acute intracranial findings or changes. Negative for hemorrhage, hematoma or acute extra-axial fluid collection. Stable postoperative changes of the posterior right craniotomy. Stable underlying parenchymal calcifications and encephalomalacia. Electronically Signed: Cande Soria MD at 20:28 EST , Service support , 07/04/20 19:33 CT Cervical [Spine Cervical without Contras] [CT] Stat 07/04/20 20:10 Brain/Head without Contrast [CT] Stat 07/04/20 20:22 Chest 1 View (Portable) [RAD] Stat Wrist min 3 Views [RAD] Stat Wrist min 3 Views [RAD] Stat Xray Tibia [Tibia & Fibula 2 Views] [RAD] Stat - Medical Decision Making Patient was given [address] scan of the head and neck are unremarkable. X-rays per my review reveal bilateral distal radius fractures with angulation. Chest x-ray reveals chronic changes. Right tib-fib x-ray reveals no fracture. With the significant skin loss and wound over the right anterior samuel I do believe she should be transferred to a trauma center. Patient is known to our plastic surgeon here, however I was not able to reach him tonight. With the patient's significant fall I do feel she would be better served in a trauma facility. Patient has been accepted in transfer at [facility]. I will place temporary Ortho-Glass splints on bilateral wrist. Patient be transferred to the ER at [facility] for further treatment. ED Disposition - Plan for ED Patient: Disposition: [facility] Diagnosis: Wrist fracture, bilateral, Fall, Degloving injury of right lower leg Referrals: Loc Arizmendi DO [Primary Care Provider] -
[2020-07-04] MEDS: fentaNYL 100 MCG/2 ML Ampul 25 MCG IV ×2 (19:58→21:35)
[2020-07-04] MEDS: Diphth,Pertuss(Acell),Tet Vac 0.5 ML Vial IM (19:58)
[2020-07-04 20:03] VITALS: BP 106/77; PULSE 86; RESP 17; TEMP 37; O2SAT 96
--- NOTE | 2020-07-04 20:10 | CT_ITS ---
Prior head CT exam of 04/02/2020 STUDY: CT BRAIN WITHOUT CONTRAST REASON FOR EXAM: Female, 60 years old. FELL DOWN BASEMENT STAIRS. HX OF BRAIN TUMOR (GLIOBLASTOMA) HAD A CRANIOTOMY./Acute traumatic head injury. RADIATION DOSAGE (If Supplied By Facility): CTDIvol = ( 44.99 ) mGy, DLP = ( 796.11 ) mGycm TECHNIQUE: Transaxial CT imaging of the brain was performed without administration of intravenous contrast material. Individualized dose optimization techniques were used for this CT. COMPARISON: No relevant priors. FINDINGS: Normal soft tissue structures. Status post right parietal craniotomy. There is mild cerebral atrophy with widening of the extra-axial spaces and ventricular dilatation. There are areas of decreased attenuation within the white matter tracts of the supratentorial brain, consistent with microvascular disease changes. Stable encephalomalacia and parenchymal calcifications in the right hemisphere directly under the craniotomy. Minimal chronic subdural collection under the craniotomy unchanged from prior exam. Normal basal ganglia and thalami. Normal brainstem. Normal cerebellum. There is no intracranial hemorrhage. There are no findings of an acute ischemic infarction. Mild areas of mucosal thickening in the inferior maxillary sinuses. CT/Brain/Head without Contrast IMPRESSION: No acute intracranial findings or changes. Negative for hemorrhage, hematoma or acute extra-axial fluid collection. Stable postoperative changes of the posterior right craniotomy. Stable underlying parenchymal calcifications and encephalomalacia. Electronically Signed: Cande Soria MD at 20:28 EST , Service support ,
--- NOTE | 2020-07-04 20:22 | RAD_ITS ---
STUDY: X-RAY - RIGHT TIBIA AND FIBULA REASON FOR EXAM: Female, 60 years old. FALL DOWN STAIRS; OPEN DEEP WOUND/pain TECHNIQUE: 2 view(s) of the tibia and fibula were obtained. COMPARISON: None. FINDINGS: Normal visualized tibia. Normal visualized fibula. There is no demonstrated acute fracture. Large lateral soft tissue injury without foreign body. RAD/Tibia & Fibula 2 Views IMPRESSION: Large soft tissue injury without underlying fracture, dislocation or foreign body. Electronically Signed: Cande Soria MD at 21:07 EST , Service support ,
--- NOTE | 2020-07-04 20:22 | RAD_ITS ---
STUDY: X-RAY - LEFT WRIST REASON FOR EXAM: Female, 60 years old. FALL DOWN STAIRS; WRIST PAIN TECHNIQUE: 3 view(s) of the wrist were obtained. COMPARISON: None. FINDINGS: Acute comminuted interarticular fracture of the distal radius with slight posterior displacement and marked dorsal impaction and dorsal angulation of the radiocarpal joint. Fracture of the ulnar styloid process. Normal carpal bones. Normal carpal articulations. Normal carpometacarpal articulation of the thumb. Normal second through fifth carpometacarpal articulations. Benign slightly expansile lytic lesion of the distal fifth metacarpal consistent with an enchondroma. Negative for pathologic fracture. Fracture related soft tissue swelling. RAD/Wrist min 3 Views IMPRESSION: Acute comminuted interarticular dorsal impaction fracture of the distal radius with severe dorsal impaction and angulation of the radial carpal joint. Acute fracture of the ulnar styloid process. 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 Electronically Signed: Cande Soria MD at 21:15 EST , Service support ,
--- NOTE | 2020-07-04 20:22 | RAD_ITS ---
STUDY: X-RAY CHEST REASON FOR EXAM: Female, 60 years old. FALL DOWN STAIRS; PAIN TECHNIQUE: 1 view COMPARISON: Prior chest radiograph of 04/02/2020 FINDINGS: The lung alfonso are generally well expanded. There is one transverse thin area of linear scarring at the right lung base. Negative for pneumothorax, major contusion or pleural effusion. Normal size heart. Normal mediastinum and michelle. Normal visualized pulmonary arteries. There is atherosclerotic tortuosity of the aortic arch and descending thoracic aorta. Normal visualized thoracic spine. Old rib fractures. There is no demonstrated abnormality of the visualized soft tissue structures of the upper abdomen. RAD/Chest 1 View (Portable) IMPRESSION: No acute cardiopulmonary findings or changes. Negative for new consolidation, pleural effusion or pneumothorax. Old bilateral rib fractures. Electronically Signed: Cande Soria MD at 21:06 EST , Service support ,
--- NOTE | 2020-07-04 20:22 | RAD_ITS ---
STUDY: X-RAY - RIGHT WRIST REASON FOR EXAM: Female, 60 years old. pt fell down basement stairs, hx of brain tumor, kassandra wrist pain TECHNIQUE: 3 view(s) of the wrist were obtained. COMPARISON: None. FINDINGS: Comminuted intra-articular fracture of the distal radius with dorsal impaction, 4 mm of dorsal displacement and moderate dorsal angulation of the radiocarpal joint. Acute fracture of the ulnar styloid process. Normal radiocarpal articulation. Normal distal radioulnar articulation. Normal carpal bones. Normal carpal articulations. Mild degenerative arthrosis of the first carpometacarpal joint. Normal second through fifth carpometacarpal articulations. Normal visualized metacarpal bones. Fracture related soft tissue swelling. RAD/Wrist min 3 Views IMPRESSION: Acute comminuted intra-articular fracture of the distal radius with moderate dorsal impaction, 4 mm of dorsal displacement and moderate dorsal angulation of the radiocarpal joint. Acute fracture of the ulnar styloid process. Electronically Signed: Cande Soria MD at 21:10 EST , Service support ,
[2020-07-04 21:00] LABS: Absolute Lymphocyte Count 1.02 X10^3/uL (0.83-4.51); Basophil# 0.05 X10^3/uL; Basophil% 0.5 % (0-1); Eosinophil# 0.01 X10^3/uL; Eosinophils% 0.1 % (0-5); Hematocrit 39.6 % (37-47); Hemoglobin 13.1 g/dL (12.0-15.0); Lymphocyte # 1.02 X10^3/ul (4.0); Lymphocyte % 10.3 % (19-41); Mean Corp Hgb Conc 33.1 g/dL (32-36); Mean Corpuscular Hgb 33.3 pg (27.0-32.0); Mean Corpuscular Volume 100.8 fL (81-99); Mean Platelet Vol. 9.8 fl (6.2-12.0); Monocyte# 0.62 X10^3/uL; Monocyte% 6.2 % (0-10); NRBC Flagged by Analyzer 0 % (0-5); Neutrophil # 8.01 X10^3/uL (2.7-7.7); Neutrophil % 80.5 % (47-70); Platelet Count 195 K/mm3 (150-450); RBC Distribution Width CV 14.8 % (11.6-14.6); RBC Distribution Width SD 55.3 fl (35.1-43.9); Red Blood Count 3.93 M/mm3 (4.2-5.4)
[2020-07-04 21:03] VITALS: BP 115/86; PULSE 67; RESP 18; TEMP 37; O2SAT 94
[2020-07-04 21:13] LABS: Anion Gap 6 (5-15); BUN 14 mg/dL (7-18); BUN/Creat Ratio 17.9 RATIO (10-20); Calcium,Total 8.8 mg/dL (8.5-10.1); Chloride 108 mmol/L (98-107); Creatinine, Serum 0.78 mg/dL (0.55-1.02); EST Glomerular Filtration Rate 79 mL/min (>60); Est Glom Filt Rate - Afr Amer 96 mL/min (>60); Estimated Creatinine Clearance 72.72 ml/min; Glucose 101 mg/dL (74-106); Potassium 3.9 mmol/L (3.5-5.1); Sodium Level 140 mmol/L (136-145)
[2020-07-04 21:29] VITALS: BP 115/86; PULSE 67; RESP 18; O2SAT 94
[2020-07-04 21:30] LABS: International Normalized Ratio 0.9; Prothrombin Time (Protime)PT. 11.8 SECONDS (11.7-14.9)
[2020-07-04 21:31] LABS: Partial Thromboplast Time 24.9 Seconds (24.1-36.2)
--- NOTE | 2020-07-04 21:50 | ED.RN ---
this nurse attempted to call report to [facility] once previously at [id number] and no answer.
--- NOTE | 2020-07-04 21:53 | ED.RN ---
this rn tried to call report to [facility] rang busy for 5min then line went .
--- NOTE | 2020-07-05 01:09 | ED.RN ---
DOPPLED PULSE IN RIGHT FOOT AT 1923, PULSE PRESENT, FOOT COOL, SWOLLEN, BRUISED.
== END 2020-07-04 21:56 | disposition short-term general hospital (02) ==
PROVIDERS: Emergency Provider Emergency Medicine; PCP Student in an Organized Health Care Education/Training Program
DX: S52.572A Other intraarticular fracture of lower end of left radius, initial encounter for closed fracture (principal); S52.612A Displaced fracture of left ulna styloid process, initial encounter for closed fracture; S52.571A Other intraarticular fracture of lower end of right radius, initial encounter for closed fracture; S52.611A Displaced fracture of right ulna styloid process, initial encounter for closed fracture; S89.81XA Other specified injuries of right lower leg, initial encounter; K21.9 Gastro-esophageal reflux disease without esophagitis; I10 Essential (primary) hypertension; G40.909 Epilepsy, unspecified, not intractable, without status epilepticus; Z79.899 Other long term (current) drug therapy; F17.200 Nicotine dependence, unspecified, uncomplicated; W10.9XXA Fall (on) (from) unspecified stairs and steps, initial encounter; Y93.89 Activity, other specified; Y92.89 Other specified places as the place of occurrence of the external cause; Y99.8 Other external cause status
CPT/HCPCS: 29125; 70450; 71045; 72125; 73110; 73590; 80048; 85025; 85610; 85730; 90715; 96374; 96376; 99285; A4216

== ENCOUNTER 2020-07-15 13:12 | Outpatient (RCR) | payer MEDICARE, SELFPAY ==
[2020-03-18 00:19] VITALS: BP 122/69; PULSE 78; RESP 16; TEMP 36.7
--- NOTE | 2020-03-21 10:54 | WC ---
Orders received from Wanda Ewing that patient had a positive wound culture. Wanda called in Bactrim DS to [facility] in [place]. I called and left a VM with Chanelle her step daughter of tima. I asked that she call our nurses line to let me know that she received the message.
--- NOTE | 2020-07-15 14:00 | PCM.PN.BLA ---
Progress Note The pt is a 60 YO female with a PMH of hypertension, glioblastoma multiforme, seizure disorder, depression/anxiety and GERD who presented to the [facility] emergency department on 07/04/2020 after falling down 15 stairs. Was no loss of consciousness. She had multiple skin tears as well as a near degloving injury over the anterior right lower extremity. Unremarkable CT brain with no acute findings. She fractured both wrists. She was transferred from [facility] ED to [facility] to see the trauma surgeon who attempted to suture what skin was left together. She was then transferred to [facility] with a wound vac. She presented to the wound care center today for follow up care. The odor from the wounds can be detected outside the exam room a few doors away. The wound on the anterior R samuel is necrotic and has purulent DC. The skin is paper thin and looks as though she has been on a lot of steroids in the past. The sutures are not holding the tissue together and the underlying skin is black/necrotic with purulent malodorous DC. She has a large skin tear on the LUE that does not appear to be infected. She is alert and able to converse with me. She is having severe, uncontrolled pain. I did not remove the splint from the RUE. HRRR DP is palpable BL. Lungs - CTA anterior and lateral + edema of the distal LE's - better per the dtr. MM are dry The abd is soft and NT Impressions 1. necrosis of wound of the R anterior samuel with cellulitis present. Can not determine the extent of the wound due to necrosis and eschar. It may go to bone. Admit to the hospital. D/W Dr. Oma Ridley and she will be the admitting doc with Dr. Moya as a consult. Dr. Moya was notified of the consult and will see her after she arrives on [place] 3. Office Visits / Consults: [id number] OV L2 New
== END 2020-07-17 23:59 ==
LOC: WC 13:12
PROVIDERS: Family Provider Student in an Organized Health Care Education/Training Program; PCP Student in an Organized Health Care Education/Training Program; Referring Provider Nurse Practitioner Family; Visit Provider Internal Medicine
DX: S41.112A Laceration without foreign body of left upper arm, initial encounter (principal); W10.9XXA Fall (on) (from) unspecified stairs and steps, initial encounter; I10 Essential (primary) hypertension; K21.9 Gastro-esophageal reflux disease without esophagitis; L03.115 Cellulitis of right lower limb; S81.811A Laceration without foreign body, right lower leg, initial encounter
CPT/HCPCS: 99212; G0463

== ENCOUNTER 2020-07-15 16:21 | Inpatient (IN) | payer MEDICARE, SELFPAY ==
[2020-07-15 14:40] VITALS: BMI 30.2
[2020-07-15 15:00] VITALS: BP 115/79; PULSE 80; RESP 18; TEMP 37; O2SAT 94
[2020-07-15 15:25] VITALS: BMI 30.3
--- NOTE | 2020-07-15 15:51 | CASEMGMT ---
Social Work Received referral from SUSHANT Holland who spoke with Dr. Ridley. Dr. Ridley stating pt is from [place] but family does not want her to return there and would prefer TCU. SW met with pt in room and introduced self and role. Pt is awake and willing to talk to SW however pt displaying some confusion. SW inquired about dgt and pt gave permission for to call [place] and states that Marine is decision maker. Phone call to [place]. Pt was living at home and fell down a flight of stairs. Pt admitted to [facility] and from there admitted to [place] on 07/09/20. Marine does not want pt to return to [place] but would prefer admission to [facility] TCU upon discharge. Phone call to [facility] in TCU and they would have a bed available for pt on . Pt will need precert and negative covid test prior to admission. Pt dgt made aware. SW will continue to follow for d/c planning. TOSHA Tracy
--- NOTE | 2020-07-15 16:31 | NURSING ---
wound photo: right lower leg
--- NOTE | 2020-07-15 16:32 | NURSING ---
wound photo: right lower leg
--- NOTE | 2020-07-15 16:32 | NURSING ---
wound photo: left lower leg
--- NOTE | 2020-07-15 16:33 | NURSING ---
wound photo: left arm
--- NOTE | 2020-07-15 16:34 | NURSING ---
wound photo: right arm
[2020-07-15 17:36] LABS: Absolute Lymphocyte Count 0.64 X10^3/uL (0.83-4.51); Absolute Neutrophil Count 6.9 X10^3/uL (2.0-7.7); Basophil# 0.04 X10^3/uL; Basophil% 0.5 % (0-1); Hematocrit 35.4 % (37-47); Hemoglobin 11.5 g/dL (12.0-15.0); Lymphocyte # 0.64 X10^3/ul (4.0); Lymphocyte % 7.7 % (19-41); Mean Corp Hgb Conc 32.5 g/dL (32-36); Mean Corpuscular Hgb 32.6 pg (27.0-32.0); Mean Corpuscular Volume 100.3 fL (81-99); Monocyte# 0.56 X10^3/uL; Monocyte% 6.7 % (0-10); NRBC Flagged by Analyzer 0 % (0-5); Neutrophil # 6.91 X10^3/uL (2.7-7.7); Neutrophil % 82.6 % (47-70); Platelet Count 274 K/mm3 (150-450); RBC Distribution Width CV 14.2 % (11.6-14.6); RBC Distribution Width SD 52.1 fl (35.1-43.9); Red Blood Count 3.53 M/mm3 (4.2-5.4); White Blood Count 8.4 K/mm3 (4.4-11.0)
--- NOTE | 2020-07-15 17:53 | PCM.CONS.GEN ---
Reason for Consult Date of Consultation: 07/15/20 Reason for Consultation: Necrotic infected hematoma right anterior leg. REFERRING PHYSICIAN: Dr. Perez. SURFACE WATER TECHNICIAN: Dr. Moya. History of Present Illness: The patient is a 60 year old F with history of glioblastoma brain status post craniotomy, chemotherapy on long-term dexamethasone recently fell down her stairs on 07/04/20. She went to the ED and x-rays showed bilateral wrist fractures. She also sustained multiple skin tears and a large hematoma skin tear right anterior leg. Some sutures were placed. She was transferred to [facility] for further care. She presented to the ED earlier today and was noted to have malodorous drainage from the right leg. There is overlying skin necrosis from the hematoma which is now infected. Patient is known to me from previous falls that resulted in chronic ulcers that needed debridement and wound care and antibiotics and eventual skin grafting. I was asked to evaluate this patient for surgical options for treatment. Past Medical History Past Medical History (Chronic Problems): Chronic Problems (Last Reviewed 07/15/20 @ 19:[address] Lisa Ridley DO) Falls (Chronic) Confusion (Chronic) Ulcer of left lower extremity with fat layer exposed (Chronic) Status post skin graft (Chronic) Venous insufficiency of both lower extremities (Chronic) Frequent falls (Chronic) Glioblastoma (Chronic) GERD (gastroesophageal reflux disease) (Chronic) Seizure disorder (Chronic) Hypertension (Chronic) Anxiety (Chronic) Chronic pain (Chronic) Neuropathic pain (Chronic) Other complications of skin graft (allograft) (autograft) (Chronic) Failed skin graft (Chronic) Complication of skin graft (Chronic) Glioblastoma multiforme (Chronic) Ulcers of both lower legs (Chronic) multiple infected ulcers bilateral legs L97.919 Wound, open, lower limb with complication (Chronic) Medical History: Medical History (Last Reviewed 07/15/20 @ 19:[address] Lisa Ridley DO) Other complications of skin graft (allograft) (autograft) (Chronic) T86.828 Failed skin graft (Chronic) T86.821 Ulcers of both lower legs (Chronic) L97.919, L97.929 multiple infected ulcers bilateral legs L97.919 Allergies adhesive tape Adverse Reaction (Verified 04/02/20 15:11) VERY THIN STEROID SKIN WILL REMOVE SKIN IF ON TOO LONG bee Allergy (Uncoded 04/02/20 15:11) Hives Home Medications: Ambulatory Orders Medication Instructions Recorded Dexamethasone 3 mg PO DAILY 03/02/17 Melatonin 6 mg PO QHS 01/03/20 Senna [Senokot] 1 tab PO BID 01/03/20 Sertraline HCl [Zoloft] 150 mg PO QHS 01/03/20 Acetaminophen [Tylenol Extra 1,000 mg PO BID PRN 01/08/20 Strength] Famotidine 20 mg PO BID 01/08/20 Levetiracetam [Keppra] 750 mg PO BID 01/08/20 Multivitamins,Therapeutic 1 tab PO DAILY 01/08/20 [Multivitamin] Lorazepam 1 mg PO QHS 07/04/20 Calcium Carbonate [Tums] 1,000 mg PO BIDCM 07/15/20 Cholecalciferol (VIT D3) [Vitamin 2,000 unit PO DAILY 07/15/20 D] Enoxaparin [Lovenox] 30 mg SQ BID 07/15/20 Oxycodone HCl 5 mg PO Q8H PRN PRN 07/15/20 Surgical History: dilatation and curettage, - - skin graft LLE. 01/04/20 - Surgical preparation left anterolateral leg with incision and drainage and evacuation and excisional debridement traumatic hematoma (33 cm2). 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 Maternal History Items: COPD - of COPD Review of Systems Comment: Constitutional: Reports: Weakness. Denies: Anorexia, Chills, Fever, Malaise, Weight Change, Fatigue. Eyes: Denies: Blurred vision, Drainage, Eyelid Inflammation, Pain, Redness, Vision Change. HEENT: Denies: Hard of Hearing, Head Aches, Nasal bleeding, Nasal Congestion, Post Nasal Drip, Sinus Congestion, Sinus Drainage, Sore Throat, Visual Changes. Cardiovascular: Denies: Chest Pain, Claudication, Chest Pressure, Chest Tightness, Edema, Heaviness, Light Headedness, Orthopnea, Palpitations, Paroxysmal Noc. Dyspnea, Syncope. Respiratory: Denies: Cough, Hemoptysis, Pleuritic Pain, Shortness of Breath, Shortness of breath at rest, Shortness of breath upon exertion, Sputum production, Wheezing. Gastrointestinal: Denies: Abdominal Pain, Constipation, Diarrhea, Dyspepsia, Hematemesis, Hematochezia, Nausea, Melena, Vomiting. Genitourinary: Denies: Dysuria, Frequency, Hematuria, Hesitancy, Incontinence, Nocturia, Retention, Urgency. Musculoskeletal: Reports: Arm Pain - B, Leg Pain - R LE. Skin: Reports: Wounds. Denies: Dryness, Jaundice, Lesions, Pruritis, Rash, Skin Changes. Neurological: Reports: Balance problems, Confusion, Focal weakness - L sided, Seizures. Denies: Slurred speech, Difficulty swallowing, Headaches, Incoordination, Numbness, Tingling, Tremor. Psychiatric: Reports: Anxiety, Depression. Endocrine: Denies: Change in Body Habitus, Heat/ Cold Intolerance, Polydipsia, Polyuria. Hematologic/ Lymphatic: Reports: Easy Bruising. Denies: Adenopathy, Anemia, Petechiae, Purpura Patient Problems: Active and Suspected Problems (Last Reviewed 07/15/20 @ 19:[address] Lisa Ridley, DO) Leg wound, right (Acute) Wrist fracture, bilateral (Acute) - Physical Exam Vitals/I&O's: General: Alert, Oriented x3, Cooperative. HEENT: PERRLA, EOMI, ecchymosis under L eye Oral: Moist Mucosa. Neck: Supple, nontender. No cervical adenopathy. Lungs: Clear to auscultation. Cardiovascular: Regular rate, Regular Rhythm. Abdomen: Soft, Non-Distended. Extremities: No clubbing, No cyanosis, Capillary Refill Less than 3 Seconds, Edema - trace B LE, Peripheral Pulses Normal Skin: Ulcer/ Wound - On the right anterior leg is an area of skin necrosis with underlying hematoma. Some malodorous drainage noted. Some oozing blood noted. There are some sutures from a degloving skin flap. Area measures 22 x 18 cm. Has bilateral wrist splints from recent fractures. On the right knee is a longitudinal laceration measuring 6 cm. On the left medial leg is a horizontal laceration measuring 6 cm. On the left proximal dorsal forearm is a skin tear measuring 2 x 4 cm. On the right proximal ulnar forearm is a skin tear measuring 4 x 3 cm. On the right mid dorsal ulnar forearm is a skin tear measuring 3 x 3 cm. On the right distal dorsal forearm at wrist is a skin tear measuring 2 x 1 cm. These multiple wounds are tender to palpation. Lymphatic: No Cervical, Supraclavicular, or Inguinal Adenopathy Neurological: Cranial nerves II-XII grossly intact, - - L Sided weakness Psych/Mental Status: Normal Affect, Appropriate Vital Signs Temp Pulse Resp BP Pulse Ox 98.6 F 80 18 115/79 94 07/15/20 15:00 07/15/20 15:00 07/15/20 15:00 07/15/20 15:00 07/15/20 15:00 Oxygen Delivery Method Room Air Weight: 187 lb 11.2 oz Body Mass Index (BMI) 30.2 Laboratory Results 07/15/20 17:15: WBC Pending, RBC Pending, Hgb Pending, Hct Pending, MCV Pending, MCH Pending, MCHC Pending, RDW Std Deviation Pending, RDW Coeff of Marylu Pending, Plt Count Pending, Neut % (Auto) Pending, Absolute Neuts (auto) Pending 07/15/20 17:15: Sodium Pending, Potassium Pending, Chloride Pending, Carbon Dioxide Pending, Anion Gap Pending, BUN Pending, Creatinine Pending, Est GFR (MDRD) Af Amer Pending, Est GFR (MDRD) Non-Af Pending, BUN/Creatinine Ratio Pending, Glucose Pending, Calcium Pending, Magnesium Pending, Total Bilirubin Pending, AST Pending, ALT Pending, Alkaline Phosphatase Pending, Total Protein Pending, Albumin Pending Current Medications Acetaminophen (Acetaminophen 500 Mg Tablet) 1,000 mg PO BID PRN PRN Reason: Pain Score 1-10 Al Hydroxide/Mg Hydroxide (Mag Hydrox/Al Hydrox/Simeth 30 Ml Udc) 30 ml PO Q6H PRN PRN PRN Reason: Gastric Burning Albuterol Sulfate (Albuterol 2.5 Mg/3 Ml Vial.Neb.) 2.5 mg INHALATION Q2H PRN PRN PRN Reason: Shortness of Breath/Wheezing Calcium Carbonate (Calcium Carbonate 500 Mg Tablet) [facility] Cholecalciferol (Cholecalciferol (Vit D3) 1,000 Unit (25mcg)) 2,000 unit PO DAILY [facility] Dexamethasone (Dexamethasone 2 Mg Tablet) [facility] Docusate Sodium (Docusate Sodium 100 Mg Capsule) 100 mg PO BID PRN PRN PRN Reason: Constipation Enoxaparin Sodium (Enoxaparin 30 Mg/0.3 Ml Syringe) 30 mg SC BID [facility] Stop: 07/30/20 22:01 Famotidine (Famotidine 20 Mg Tablet) 20 mg PO BID [facility] Hydromorphone HCl (Hydromorphone 0.5 Mg/0.5 Ml Syringe) 0.5 mg IV Q4H PRN PRN PRN Reason: Pain Score 6-10 Lactated Ringer's () 1,000 mls @ 70 mls/hr IV .[id number] [facility] Levetiracetam (Levetiracetam 250 Mg Tablet) 750 mg PO BID [facility] Lorazepam (Lorazepam 1 Mg Tablet) 1 mg PO QHS [facility] Melatonin (Melatonin 3 Mg Tablet) 6 mg PO QHS [facility] Multivitamins (Multivitamins,Therapeutic Tablet) 1 tablet PO DAILYCM [facility] Ondansetron HCl (Ondansetron 4 Mg/2 Ml Vial) 4 mg IV Q8H PRN PRN PRN Reason: NAUSEA/VOMITING Oxycodone HCl (Oxycodone 5 Mg Tablet) 5 mg PO Q8H PRN PRN PRN Reason: Pain Score 4-10 Polyethylene Glycol (Polyethylene Glycol 3350 17 Gm Packet) 17 gm PO DAILY [facility] Senna (Senna Tablet) 1 tablet PO BID [facility] Sertraline HCl (Sertraline 50 Mg Tablet) 150 mg PO QHS [facility] Assessment/Plan All Active Problems (Last Reviewed 07/15/20 @ 19:[address] Lisa Ridley, DO) Abrasion of multiple sites of upper extremity and shoulder (Acute) Abrasion of multiple sites of lower extremity (Acute) Hematoma of right lower extremity (Acute) Abscess of right lower extremity (Acute) Leg wound, right (Acute) Wrist fracture, bilateral (Acute) 1. Traumatic infected necrotic hematoma abscess right anterior leg. 2. Chronic falls at home. 3. Smoker. 4. Glioblastoma multiforme status post craniectomy and chemoradiation on long-term dexamethasone and Keppra. 5. Multiple skin tears upper and lower extremities from her recent fall. 6. Recent bilateral wrist fractures, splinted. Patient has a traumatic infected necrotic hematoma abscess right anterior leg with some compromised skin. Recommend operative intervention with surgical preparation right anterior leg with incision and drainage and evacuation and excisional debridement traumatic infected necrotic hematoma abscess. Will send tissue to Pathology for analysis to rule out carcinoma and to Microbiology for culture. A positive culture will necessitate antibiotic therapy. Will treat perioperatively with Ancef. Will leave the wound open and proceed with postop wound care with the VAC. After discharge, she will followup at the Wound Center. If a plateau develops during the healing process, will proceed with delayed closure with skin grafting. Surgery will be done tomorrow under local anesthesia and IV sedation. With her current immunocompromised medical status, this infected hematoma can worsen and can become life threatening. Patient was informed of the risks and complications of the procedure including alternatives to surgery. These were discussed with the patient personally. Patient voices understanding and wishes to proceed. Encouraged patient to stop smoking as it may have deleterious effects on wound healing. Anticipate increased metabolic demands from the injury and from the surgery. Will check a Prealbumin and encourage nutritional supplementation with protein to help the healing process. We discussed the current risks associated with COVID-19. While it is understood that there is a community spread of COVID-19, the risk of dinora COVID-19 while at [facility] ([facility]) is very low; however, the risk cannot be completely mitigated because of the community spread of the disease. We discussed in detail the risk of exposure to and/or potential harm posed by the COVID-19 virus with having a surgery/procedure at this time versus the risk of delaying the surgery/procedure. It is not possible to know either the risk of delaying the surgery or procedure or chance of getting an infection with perfect accuracy, but a joint decision was made to proceed at this time with the scheduled surgery/procedure as indicated on the consent form. Patient was notified that we will need to comply with any screening or testing [facility] wishes to perform or that surgery may be delayed for any positive results. Discussed with the patient that I was tested for COVID-19 on 01/17/20 which was negative and on 01/31/20 which was negative and on 02/14/20 which was negative and on 02/28/20 which was negative and on 03/13/20 which was negative and on 04/03/20 which was negative and on 04/24/20 which was negative and on 05/29/20 which was negative and on 06/19/20 which was negative and on 07/08/20 which was negative. My testing regimen at this time is to be COVID-19 tested every 2 weeks or so. Procedure Criteria Procedure Type: Elective COVID Risk Discussion: The surgeon/proceduralist and patient have discussed in detail the risk of exposure to and/or potential harm posed by the COVID-19 virus with having a surgery/procedure at this time versus the risk of delaying the surgery/procedure. It is not possible to know either the risk of delaying the surgery or procedure or chance of getting an infection with perfect accuracy, but a joint decision was made between the patient and the surgeon/proceduralist to proceed at this time with the scheduled surgery/procedure as indicated on the consent form. Inpatient E&M: 59451 Init Hosp L2 - ICD-10 - L02.415, I96. S80.11xA, W19.xxxA, F17.200, C71.9, S40.819A, S80.819A
[2020-07-15 17:54] LABS: ALB/GLOB Ratio 0.8 RATIO (0.9-2.4); AST(SGOT) 33 U/L (15-37); Alanine Aminotransfer ALT/SGPT 44 U/L (13-56); Alkaline Phosphatase 310 U/L (45-117); Anion Gap 6 (5-15); BUN 25 mg/dL (7-18); BUN/Creat Ratio 30.8 RATIO (10-20); Calcium,Total 9.1 mg/dL (8.5-10.1); Chloride 105 mmol/L (98-107); Creatinine, Serum 0.81 mg/dL (0.55-1.02); EST Glomerular Filtration Rate 76 mL/min (>60); Est Glom Filt Rate - Afr Amer 92 mL/min (>60); Estimated Creatinine Clearance 67.41 ml/min; Glucose 131 mg/dL (74-106); Magnesium 1.9 mg/dL (1.6-2.6); Potassium 4.1 mmol/L (3.5-5.1); Sodium Level 137 mmol/L (136-145)
--- NOTE | 2020-07-15 18:17 | PCM.RX.CS ---
Consult Pharmacy has been consulted to manage selected antiobiotic: Vancomycin Type of Consult: New start Suspected Infection: Skin/Soft tissue Labs: Sodium 137 mmol/L (136-145) 07/15/20 17:15 Potassium 4.1 mmol/L (3.5-5.1) 07/15/20 17:15 Chloride 105 mmol/L (98-107) 07/15/20 17:15 Carbon Dioxide 26.0 mmol/L (21.0-32.0) 07/15/20 17:15 Anion Gap 6 (5-15) 07/15/20 17:15 BUN 25 mg/dL (7-18) H 07/15/20 17:15 Creatinine 0.81 mg/dL (0.55-1.02) 07/15/20 17:15 Est GFR (MDRD) Af Amer 92 mL/min (>60) 07/15/20 17:15 Est GFR (MDRD) Non-Af 76 mL/min (>60) 07/15/20 17:15 BUN/Creatinine Ratio 30.8 RATIO (10-20) H 07/15/20 17:15 Glucose 131 mg/dL (74-106) H 07/15/20 17:15 Microbiology: Microbiology 07/15/20 17:15 Mucosa - Nose SARS-CoV-2 Antigen (Rapid) - Final Goal Trough: 10-15 mcg/mL Pharmacy Plan for Drug Dosing: NEW START IV VANCOMYCIN Consulting Physician: GRAEME Indication: CELLULITIS Goal Trough: 10-15 SrCr: 0.81 CrCl: 67.4 ML/MIN Vancomycin Dose: 1000MG Q12H, trough prior to the 4th dose Pharmacy Service will continue to monitor and adjust dosing as required. Labs to be done on [date and time ordered]: 07/17/20 @ 0600
[2020-07-15] MEDS: Calcium Carbonate 500 MG Tablet 1000 MG PO (18:30)
[2020-07-15] MEDS: levoFLOXacin 500 MG Tablet PO (18:37)
[2020-07-15] MEDS: Vancomycin IV 1,000 MG/200 ML BAG 200 MG IV (19:35)
[2020-07-15] MEDS: 0.9% Saline Lock 10 ML Syringe IV (19:35)
--- NOTE | 2020-07-15 19:41 | HP.PCM_ITS ---
Problem List (1) Leg wound, right Status: Acute (2) Skin tear of right forearm without complication Status: Inactive (3) Ulcer of right foot Status: Inactive (4) Cystitis Status: Inactive (5) Falls Status: Chronic (6) Confusion Status: Chronic (7) Abrasion of hand, left Status: Inactive (8) Ulcer of right lower extremity with fat layer exposed Status: Inactive (9) Ulcer of left lower extremity with fat layer exposed Status: Chronic (10) Status post skin graft Status: Chronic (11) Open wound of left lower leg Status: Inactive Comment: open surgical hematoma wound left anterolateral leg (12) Traumatic hematoma of left lower leg Status: Inactive (13) Open wound of left knee Status: Inactive (14) Venous insufficiency of both lower extremities Status: Chronic (15) Ulcer of left foot Status: Inactive (16) Ulcer of left calf Status: Inactive (17) Ulcer of left lower leg Status: Inactive (18) Ulcer of upper extremity Status: Inactive (19) Ulcer of upper extremity, limited to breakdown of skin Status: Inactive (20) Skin tear of left lower leg without complication Status: Inactive (21) Frequent falls Status: Chronic (22) Glioblastoma Status: Chronic (23) Abrasion of right leg Status: Inactive (24) Abrasion of left leg Status: Inactive (25) Nonhealing ulcer of right lower extremity with fat layer exposed Status: Inactive (26) Traumatic open wound of left lower leg Status: Inactive (27) Traumatic open wound of right lower leg Status: Inactive (28) Non-pressure chronic ulcer of left lower leg with muscle involvement without evidence of necrosis Status: Inactive (29) GERD (gastroesophageal reflux disease) Status: Chronic (30) Seizure disorder Status: Chronic (31) Hypertension Status: Chronic (32) Anxiety Status: Chronic (33) Chronic pain Status: Chronic (34) Neuropathic pain Status: Chronic (35) Other complications of skin graft (allograft) (autograft) Status: Chronic (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 She had a fall down the stairs on 07/03 and presented to this ED with a R LE deep wound and B wrist fractures and given that this was the result of a trauma she was sent to [facility] for further care. She was seen by plastics and they sutured some of the skin and ortho placed her in B UE wrist splints and she was discharged to [place]. Per the daughter she really got no wound care from what she could tell while she was there and was seen in the wound center today and after evaluating the wounds Dr. Perez was concern about the about necrosis and need for operative care so she was sent as a direct admission. Dr. Moya was notified and will see the pt and take her to the OR tomorrow. Per d/w the daughter, she would like her to be able to go to the TCU at d/c. Past Medical History Past Medical History (Chronic Problems): Chronic Problems (Last Reviewed 04/02/20 @ 19:[address] Lisa Ridley, DO) Falls (Chronic) Confusion (Chronic) Ulcer of left lower extremity with fat layer exposed (Chronic) Status post skin graft (Chronic) Venous insufficiency of both lower extremities (Chronic) Frequent falls (Chronic) Glioblastoma (Chronic) GERD (gastroesophageal reflux disease) (Chronic) Seizure disorder (Chronic) Hypertension (Chronic) Anxiety (Chronic) Chronic pain (Chronic) Neuropathic pain (Chronic) Other complications of skin graft (allograft) (autograft) (Chronic) Failed skin graft (Chronic) Complication of skin graft (Chronic) Glioblastoma multiforme (Chronic) Ulcers of both lower legs (Chronic) multiple infected ulcers bilateral legs L97.919 Wound, open, lower limb with complication (Chronic) Medical History: Medical History (Last Reviewed 07/15/20 @ 19:[address] Lisa Ridley DO) Other complications of skin graft (allograft) (autograft) (Chronic) T86.828 Failed skin graft (Chronic) T86.821 Ulcers of both lower legs (Chronic) L97.919, L97.929 multiple infected ulcers bilateral legs L97.919 Allergies adhesive tape Adverse Reaction (Verified 04/02/20 15:11) VERY THIN STEROID SKIN WILL REMOVE SKIN IF ON TOO LONG bee Allergy (Uncoded 04/02/20 15:11) Hives Home Medications: Ambulatory Orders Medication Instructions Recorded Dexamethasone 3 mg PO DAILY 03/02/17 Melatonin 6 mg PO QHS 01/03/20 Senna [Senokot] 1 tab PO BID 01/03/20 Sertraline HCl [Zoloft] 150 mg PO QHS 01/03/20 Acetaminophen [Tylenol Extra 1,000 mg PO BID PRN 01/08/20 Strength] Famotidine 20 mg PO BID 01/08/20 Levetiracetam [Keppra] 750 mg PO BID 01/08/20 Multivitamins,Therapeutic 1 tab PO DAILY 01/08/20 [Multivitamin] Lorazepam 1 mg PO QHS 07/04/20 Calcium Carbonate [Tums] 1,000 mg PO BIDCM 07/15/20 Cholecalciferol (VIT D3) [Vitamin 2,000 unit PO DAILY 07/15/20 D] Enoxaparin [Lovenox] 30 mg SQ BID 07/15/20 Oxycodone HCl 5 mg PO Q8H PRN PRN 07/15/20 Surgical History: dilatation and curettage, - - skin graft LLE Psychiatric History: No pertinent psych hx 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 Review of Systems Constitutional: Reports: Weakness. Denies: Anorexia, Chills, Fever, Malaise, Weight Change, Fatigue Eyes: Denies: Blurred vision, Drainage, Eyelid Inflammation, Pain, Redness, Vision Change HEENT: Denies: Hard of Hearing, Head Aches, Nasal bleeding, Nasal Congestion, Post Nasal Drip, Sinus Congestion, Sinus Drainage, Sore Throat, Visual Changes Cardiovascular: Denies: Chest Pain, Claudication, Chest Pressure, Chest Tightness, Edema, Heaviness, Light Headedness, Orthopnea, Palpitations, Paroxysmal Noc. Dyspnea, Syncope Respiratory: Denies: Cough, Hemoptysis, Pleuritic Pain, Shortness of Breath, Shortness of breath at rest, Shortness of breath upon exertion, Sputum production, Wheezing Gastrointestinal: Denies: Abdominal Pain, Constipation, Diarrhea, Dyspepsia, Hematemesis, Hematochezia, Nausea, Melena, Vomiting Genitourinary: Denies: Dysuria, Frequency, Hematuria, Hesitancy, Incontinence, Nocturia, Retention, Urgency Musculoskeletal: Reports: Arm Pain - B, Leg Pain - R LE Skin: Reports: Wounds. Denies: Dryness, Jaundice, Lesions, Pruritis, Rash, Skin Changes Neurological: Reports: Balance problems, Confusion, Focal weakness - L sided, Seizures. Denies: Slurred speech, Difficulty swallowing, Headaches, Incoordination, Numbness, Tingling, Tremor Psychiatric: Reports: Anxiety, Depression Endocrine: Denies: Change in Body Habitus, Heat/ Cold Intolerance, Polydipsia, Polyuria Hematologic/ Lymphatic: Reports: Easy Bruising. Denies: Adenopathy, Anemia, Petechiae, Purpura VTE Information - Inpt Only VTE Present on Admission: No VTE Mechan Device Prophylaxis: None VTE Pharm Prophylaxis ordered?: Yes - Physical Exam Vitals/I&O's: Vital Signs Temp Pulse Resp BP Pulse Ox 98.6 F 80 18 115/79 94 07/15/20 15:00 07/15/20 15:00 07/15/20 15:00 07/15/20 15:00 07/15/20 15:00 Oxygen Delivery Method Room Air Weight: 85.139 kg Body Mass Index (BMI) 30.2 Intake and Output for Last 24 Hours 07/13/20 07/14/20 07/15/20 23:59 23:59 23:59 Intake Total 250.75 / 250.75 Balance 250.75 / 250.75 General: Alert, Oriented x3, Cooperative, No apparent distress, Well developed, Well nourished, - - daughter at bedside HEENT: PERRLA, EOMI, Normocephalic, - - ecchymosis under L eye Oral: Moist Mucosa, No Gingival or Mucosal Lesions/ Ulcerations Neck: Supple, Trachea Midline, Thyroid Normal Size and Texture Lungs: Clear to auscultation, Normal air movement, No rhonchi, No wheeze, No rales Cardiovascular: Regular rate, Regular Rhythm, Normal S1, Normal S2, No murmurs, No Ectopic Activity, No rub noted, No Gallop Abdomen: Bowel Sounds Present, Soft, Non Tender, Non-Distended, Obese Extremities: No clubbing, No cyanosis, Capillary Refill Less than 3 Seconds, Edema - trace B LE, Peripheral Pulses Normal Skin: No rashes, Ulcer/ Wound - R LE with areas of necrosis, stitches in place, oozing blood, Skin Tear - B UE under splints, - Musculoskeletal: No Muscle Wasting, Arthritic Changes, Tenderness - R LE and B UE Lymphatic: No Cervical, Supraclavicular, or Inguinal Adenopathy Neurological: Cranial nerves II-XII grossly intact, - - L Sided weakness Psych/Mental Status: Normal Affect, Appropriate Microbiology Past 72 Hours 07/15/20 17:15 Mucosa - Nose SARS-CoV-2 Antigen (Rapid) - Final Laboratory Results 07/15/20 17:15: WBC 8.4, RBC 3.53 L, Hgb 11.5 L, Hct 35.4 L, MCV 100.3 H, MCH 32.6 H, MCHC 32.5, RDW Std Deviation 52.1 H, RDW Coeff of Marylu 14.2, Plt Count 274, MPV 10.0, Immature Gran % (Auto) 2.500 H, Neut % (Auto) 82.6 H, Lymph % (Auto) 7.7 L, [place] % (Auto) 6.7, Eos % (Auto) 0.0, Baso % (Auto) 0.5, Absolute Neuts (auto) 6.9, Absolute Lymphs (auto) 0.64 L, Nucleated RBC % 0 07/15/20 17:15: Sodium 137, Potassium 4.1, Chloride 105, Carbon Dioxide 26.0, Anion Gap 6, BUN 25 H, Creatinine 0.81, Estim Creat Clear Calc 67.41, Est GFR (MDRD) Af Amer 92, Est GFR (MDRD) Non-Af 76, BUN/Creatinine Ratio 30.8 H, Glucose 131 H, Calcium 9.1, Magnesium 1.9, Total Bilirubin 0.40, AST 33, ALT 44, Alkaline Phosphatase 310 H, Total Protein 7.0, Albumin 3.0 L, Globulin 4.0, Albumin/Globulin Ratio 0.8 L Current Medications Acetaminophen (Acetaminophen 500 Mg Tablet) 1,000 mg PO BID PRN PRN Reason: Pain Score 1-10 Al Hydroxide/Mg Hydroxide (Mag Hydrox/Al Hydrox/Simeth 30 Ml Udc) 30 ml PO Q6H PRN PRN PRN Reason: Gastric Burning Albuterol Sulfate (Albuterol 2.5 Mg/3 Ml Vial.Neb.) 2.5 mg INHALATION Q2H PRN PRN PRN Reason: Shortness of Breath/Wheezing Calcium Carbonate ([facility]cium [facility] Admin: 07/15/20 18:30 Dose: 1,000 mg Documented by: Cholecalciferol (Cholecalciferol (Vit D3) 1,000 Unit (25mcg)) 2,000 unit PO DAILY [facility] Dexamethasone (Dex[facility] 2 Mg Tablet) [facility] Docusate Sodium (Docusate Sodium 100 Mg Capsule) 100 mg PO BID PRN PRN PRN Reason: Constipation Enoxaparin Sodium (Enoxaparin 30 Mg/0.3 Ml Syringe) 30 mg SC BID [facility] Stop: 07/30/20 22:01 Famotidine (Famotidine 20 Mg Tablet) 20 mg PO BID [facility] Hydromorphone HCl (Hydromorphone 0.5 Mg/0.5 Ml Syringe) 0.5 mg IV Q4H PRN PRN PRN Reason: Pain Score 6-10 Lactated Ringer's () 1,000 mls @ 70 mls/hr IV .[id number] [facility] Vancomycin IV Pharmacy to Dose (1 ea/ Sodium Chloride) 500 mls @ 250 mls/hr IV X1 PRN; Protocol PRN Reason: Rx to Dose Vancomycin HCl (Vancomycin) 1,000 mg in 200 mls @ 200 mls/hr IV Q12H [facility] Last Admin: 07/15/20 19:35 Dose: 200 mls/hr Documented by: Sodium Chloride () 250 mls @ 15 mls/hr IV .[id number] PRN PRN Reason: Additional IVPB Infusion Last Infusion: 07/15/20 19:38 Dose: 0 mls/hr Documented by: Levetiracetam (Levetiracetam 250 Mg Tablet) 750 mg PO BID [facility] Levofloxacin (Levofloxacin 500 Mg Tablet) 500 mg PO DAILY@0600 [facility] Last Admin: 07/15/20 18:37 Dose: 500 mg Documented by: Lorazepam (Lorazepam 1 Mg Tablet) 1 mg PO QHS [facility] Melatonin (Melatonin 3 Mg Tablet) 6 mg PO QHS [facility] Multivitamins (Multivitamins,Therapeutic Tablet) 1 tablet PO DAILYCM [facility] Ondansetron HCl (Ondansetron 4 Mg/2 Ml Vial) 4 mg IV Q8H PRN PRN PRN Reason: NAUSEA/VOMITING Oxycodone HCl (Oxycodone 5 Mg Tablet) 5 mg PO Q8H PRN PRN PRN Reason: Pain Score 4-10 Polyethylene Glycol (Polyethylene Glycol 3350 17 Gm Packet) 17 gm PO DAILY [facility] Senna (Senna Tablet) 1 tablet PO BID [facility] Sertraline HCl (Sertraline 50 Mg Tablet) 150 mg PO QHS [facility] Sodium Chloride (0.9% Saline Lock 10 Ml Syringe) 10 - 40 ml IV UD PRN PRN Reason: SALINE FLUSH Last Admin: 07/15/20 19:35 Dose: 10 ml Documented by: Assessment/Plan All Active Problems (Last Reviewed 04/02/20 @ 19:[address] Lisa Ridley, DO) Leg wound, right (Acute) Wrist fracture, bilateral (Acute) R LE Wound with Necrosis -Vanc and Zosyn -check MRSA -OR tomorrow -PT/INR and PTT in am -NPO after MN with IVF -pain meds (PO and prn IV for breakthrough) -bowel regimen -[place] consulted -Wound care consulted B Wrist fractures -splints -f/u with ortho as outpt Seizure D/O -keppra -will check keppra level to make sure toxicity is not contributing to falls H/O GBM -no current issues -had had stable MRI -continue steroids Wounds B LE and UE -none look infected at this time -consult wound care GERD Continue Famotidine Vit D deficiency -cont supplementation Depression -continue Zoloft Failure to Thrive and Debility -PT/OT DVT prophylaxis -Lovenox Code status -DNR CCA no ETT per d/w daughter today Inpatient E&M: 76446 Init Hosp L3
[2020-07-15 19:45] VITALS: O2SAT 94
[2020-07-15] MEDS: LORazepam 1 MG Tablet PO (22:06)
[2020-07-15] MEDS: Sertraline 50 MG Tablet 150 MG PO (22:06)
[2020-07-15] MEDS: Senna Tablet 1 TABLET PO (22:06)
[2020-07-15] MEDS: levETIRAcetam 250 MG Tablet 750 MG PO (22:06)
[2020-07-15] MEDS: MELATONIN 3 MG TABLET 6 MG PO (22:06)
[2020-07-15] MEDS: Famotidine 20 MG Tablet PO (22:07)
[2020-07-15 22:14] VITALS: BP 113/87; PULSE 75; RESP 18; TEMP 36.7; O2SAT 97
[2020-07-16] VITALS (11 sets, daily range): BP systolic 96–116; BP diastolic 67–76; PULSE 71–86; RESP 16–20; TEMP 36.3–37; O2SAT 92–98; BMI 30.2; BMI 30.3
[2020-07-16] MEDS: Lactated Ringers 1,000 ML 70 ML IV ×2 (02:09→14:39)
--- NOTE | 2020-07-16 06:00 | EKG12_ITS ---
Test Reason : PRE-OP Blood Pressure : / mmHG Vent. Rate : 066 BPM Atrial Rate : 066 BPM P-R Int : 140 ms QRS Dur : 096 ms QT Int : 426 ms P-R-T Axes : 055 041 091 degrees QTc Int : 446 ms Normal sinus rhythm Nonspecific T wave abnormality Abnormal ECG When compared with ECG of 02-APR-2020 16:17, No significant change was found Confirmed by BIBIANA BAILEY, CHRISTIANE ([id number]), editor house organ ESTUARDO ROSA ([id number]) on 07/21/2020 9:37:33 AM Referred By: Wanda Ewing Confirmed By:JU MCCARTY MD
[2020-07-16] MEDS: Vancomycin IV 1,000 MG/200 ML BAG 200 MG IV ×2 (06:32→18:18)
[2020-07-16] MEDS: levoFLOXacin 500 MG Tablet PO (06:35)
[2020-07-16 07:40] LABS: Absolute Lymphocyte Count 0.71 X10^3/uL (0.83-4.51); Absolute Neutrophil Count 4.3 X10^3/uL (2.0-7.7); Basophil# 0.04 X10^3/uL; Basophil% 0.7 % (0-1); Eosinophil# 0.08 X10^3/uL; Eosinophils% 1.3 % (0-5); Hematocrit 32.7 % (37-47); Hemoglobin 10.5 g/dL (12.0-15.0); Lymphocyte # 0.71 X10^3/ul (4.0); Lymphocyte % 11.9 % (19-41); Mean Corp Hgb Conc 32.1 g/dL (32-36); Mean Corpuscular Hgb 32.3 pg (27.0-32.0); Mean Corpuscular Volume 100.6 fL (81-99); Mean Platelet Vol. 9.7 fl (6.2-12.0); Monocyte# 0.62 X10^3/uL; Monocyte% 10.4 % (0-10); NRBC Flagged by Analyzer 0 % (0-5); Neutrophil # 4.32 X10^3/uL (2.7-7.7); Neutrophil % 72.2 % (47-70); Platelet Count 225 K/mm3 (150-450); RBC Distribution Width CV 14.2 % (11.6-14.6); RBC Distribution Width SD 53.4 fl (35.1-43.9); Red Blood Count 3.25 M/mm3 (4.2-5.4)
[2020-07-16 07:48] LABS: International Normalized Ratio 1.1; Prothrombin Time (Protime)PT. 13.2 SECONDS (11.7-14.9)
[2020-07-16 07:53] LABS: Anion Gap 5 (5-15); BUN 21 mg/dL (7-18); BUN/Creat Ratio 27.6 RATIO (10-20); Calcium,Total 8.9 mg/dL (8.5-10.1); Chloride 104 mmol/L (98-107); Creatinine, Serum 0.76 mg/dL (0.55-1.02); EST Glomerular Filtration Rate 82 mL/min (>60); Est Glom Filt Rate - Afr Amer 99 mL/min (>60); Estimated Creatinine Clearance 71.85 ml/min; Glucose 117 mg/dL (74-106); Partial Thromboplast Time 31.2 Seconds (24.1-36.2); Potassium 3.5 mmol/L (3.5-5.1); Sodium Level 136 mmol/L (136-145)
--- NOTE | 2020-07-16 08:12 | PN_ITS ---
Patient Problems: Active and Suspected Problems (Last Reviewed 07/15/20 @ 19:[address] Lisa Ridley, DO) Leg wound, right (Acute) Wrist fracture, bilateral (Acute) Reason for Visit: leg wound Subjective: No new complaints. Anxious about when surgery will be. Vitals/I&O's: Vital Signs Temp Pulse Resp BP Pulse Ox 37.0 C 74 16 112/76 98 07/16/20 03:15 07/16/20 03:15 07/16/20 03:15 07/16/20 03:15 07/16/20 03:15 Oxygen Delivery Method Room Air Weight: 85.139 kg Body Mass Index (BMI) 30.2 Intake and Output for Last 24 Hours 07/14/20 07/15/20 07/16/20 23:59 23:59 23:59 Intake Total 450.75 / 650.75 590.33 / 590.33 Output Total 150 / 150 Balance 450.75 / 650.75 440.33 / 440.33 General: Alert, No apparent distress HEENT: Atraumatic, Normocephalic Oral: Moist Mucosa, No Gingival or Mucosal Lesions/ Ulcerations Neck: No Nodes, Thyroid Normal Size and Texture Lungs: Clear to auscultation, Normal air movement, No rhonchi, No wheeze Cardiovascular: Regular rate, Regular Rhythm, Normal S1, Normal S2 Extremities: - - legs wrapped--did not remove. Reviewed images provided by Anitha Santamaria: large area of unroofing of sink on right anterior samuel. Sutures in place, but some unroofed skin comprises the unroofed skin. Psych/Mental Status: Normal Affect, Appropriate Microbiology Past 72 Hours 07/15/20 17:15 Mucosa - Nose SARS-CoV-2 Antigen (Rapid) - Final Laboratory Results 07/15/20 17:15: WBC 8.4, RBC 3.53 L, Hgb 11.5 L, Hct 35.4 L, MCV 100.3 H, MCH 32.6 H, MCHC 32.5, RDW Std Deviation 52.1 H, RDW Coeff of Marylu 14.2, Plt Count 274, MPV 10.0, Immature Gran % (Auto) 2.500 H, Neut % (Auto) 82.6 H, Lymph % (Auto) 7.7 L, Wetzel % (Auto) 6.7, Eos % (Auto) 0.0, Baso % (Auto) 0.5, Absolute Neuts (auto) 6.9, Absolute Lymphs (auto) 0.64 L, Nucleated RBC % 0 07/15/20 17:15: Sodium 137, Potassium 4.1, Chloride 105, Carbon Dioxide 26.0, Anion Gap 6, BUN 25 H, Creatinine 0.81, Estim Creat Clear Calc 67.41, Est GFR (MDRD) Af Amer 92, Est GFR (MDRD) Non-Af 76, BUN/Creatinine Ratio 30.8 H, Glucose 131 H, Calcium 9.1, Magnesium 1.9, Total Bilirubin 0.40, AST 33, ALT 44, Alkaline Phosphatase 310 H, Total Protein 7.0, Albumin 3.0 L, Globulin 4.0, Albumin/Globulin Ratio 0.8 L 07/16/20 07:04: WBC 6.0, RBC 3.25 L, Hgb 10.5 L, Hct 32.7 L, MCV 100.6 H, MCH 32.3 H, MCHC 32.1, RDW Std Deviation 53.4 H, RDW Coeff of Marylu 14.2, Plt Count 225, MPV 9.7, Immature Gran % (Auto) 3.500 H, Neut % (Auto) 72.2 H, Lymph % (Auto) 11.9 L, Wetzel % (Auto) 10.4 H, Eos % (Auto) 1.3, Baso % (Auto) 0.7, Absolute Neuts (auto) 4.3, Absolute Lymphs (auto) 0.71 L, Nucleated RBC % 0 07/16/20 07:04: Sodium 136, Potassium 3.5, Chloride 104, Carbon Dioxide 27.0, Anion Gap 5, BUN 21 H, Creatinine 0.76, Estim Creat Clear Calc 71.85, Est GFR (MDRD) Af Amer 99, Est GFR (MDRD) Non-Af 82, BUN/Creatinine Ratio 27.6 H, Glucose 117 H, Calcium 8.9 07/16/20 07:04: PT 13.2, INR 1.1, APTT 31.2 Current Medications Acetaminophen (Acetaminophen 500 Mg Tablet) 1,000 mg PO BID PRN PRN Reason: Pain Score 1-10 Al Hydroxide/Mg Hydroxide (Mag Hydrox/Al Hydrox/Simeth 30 Ml Udc) 30 ml PO Q6H PRN PRN PRN Reason: Gastric Burning Albuterol Sulfate (Albuterol 2.5 Mg/3 Ml Vial.Neb.) 2.5 mg INHALATION Q2H PRN PRN PRN Reason: Shortness of Breath/Wheezing Calcium Carbonate (Calcium Carbonate 500 Mg Tablet) 1,000 mg PO BIDCM [facility] Last Admin: 07/15/20 18:30 Dose: 1,000 mg Documented by: Cholecalciferol (Cholecalciferol (Vit D3) 1,000 Unit (25mcg)) 2,000 unit PO DAILY [facility] Dexamethasone (Dexamethasone 2 Mg Tablet) 3 mg PO DAILYCM [facility] Docusate Sodium (Docusate Sodium 100 Mg Capsule) 100 mg PO BID PRN PRN PRN Reason: Constipation Enoxaparin Sodium (Enoxaparin 30 Mg/0.3 Ml Syringe) 30 mg SC BID [facility] Stop: 07/30/20 22:01 Last Admin: 07/15/20 22:15 Dose: Not Given Documented by: Famotidine (Famotidine 20 Mg Tablet) 20 mg PO BID [facility] Last Admin: 07/15/20 22:07 Dose: 20 mg Documented by: Hydromorphone HCl (Hydromorphone 0.5 Mg/0.5 Ml Syringe) 0.5 mg IV Q4H PRN PRN PRN Reason: Pain Score 6-10 Lactated Ringer's () 1,000 mls @ 70 mls/hr IV .[id number] [facility] Last Infusion: 07/16/20 06:32 Dose: 0 mls/hr Documented by: Vancomycin IV Pharmacy to Dose (1 ea/ Sodium Chloride) 500 mls @ 250 mls/hr IV X1 PRN; Protocol PRN Reason: Rx to Dose Vancomycin HCl (Vancomycin) 1,000 mg in 200 mls @ 200 mls/hr IV Q12H [facility] Last Admin: 07/16/20 06:32 Dose: 200 mls/hr Documented by: Sodium Chloride () 250 mls @ 15 mls/hr IV .[id number] PRN PRN Reason: Additional IVPB Infusion Last Infusion: 07/16/20 02:09 Dose: 0 mls/hr Documented by: Levetiracetam (Levetiracetam 250 Mg Tablet) 750 mg PO BID [facility] Last Admin: 07/15/20 22:06 Dose: 750 mg Documented by: Levofloxacin (Levofloxacin 500 Mg Tablet) 500 mg PO DAILY@0600 [facility] Last Admin: 07/16/20 06:35 Dose: 500 mg Documented by: Lorazepam (Lorazepam 1 Mg Tablet) 1 mg PO QHS [facility] Last Admin: 07/15/20 22:06 Dose: 1 mg Documented by: Melatonin (Melatonin 3 Mg Tablet) 6 mg PO QHS [facility] Last Admin: 07/15/20 22:06 Dose: 6 mg Documented by: Multivitamins (Multivitamins,Therapeutic Tablet) [facility] Ondansetron HCl (Ondansetron 4 Mg/2 Ml Vial) 4 mg IV Q8H PRN PRN PRN Reason: NAUSEA/VOMITING Oxycodone HCl (Oxycodone 5 Mg Tablet) 5 mg PO Q8H PRN PRN PRN Reason: Pain Score 4-10 Polyethylene Glycol (Polyethylene Glycol 3350 17 Gm Packet) 17 gm PO DAILY [facility] Senna (Senna Tablet) 1 tablet PO BID [facility] Last Admin: 07/15/20 22:06 Dose: 1 tablet Documented by: Sertraline HCl (Sertraline 50 Mg Tablet) 150 mg PO QHS [facility] Last Admin: 07/15/20 22:06 Dose: 150 mg Documented by: Sodium Chloride (0.9% Saline Lock 10 Ml Syringe) 10 - 40 ml IV UD PRN PRN Reason: SALINE FLUSH Last Admin: 07/15/20 19:35 Dose: 10 ml Documented by: Medical Necessity - Tobacco Use Smoking Status: Current every day smoker Tobacco Use: Cigarettes Assessment/Plan All Active Problems (Last Reviewed 07/15/20 @ 19:[address] Lisa Ridley, DO) Leg wound, right (Acute) Wrist fracture, bilateral (Acute) 1. R leg wound * with possible necrosis * on pip/tazo and vanc * PRS to take to OR at some point today * follow up surgical cultures (no cultures ordered at present) 2. Bilateral wrist fxrs * continue splints * outpt ortho follow up. 3. seizure disorder * on levetiracetam 4. Debility * PT OT * back to SNF upon discharge. Look into TCU per family request 5. Chronic conditions: * GBM: stable. Follow up with oncology. On Dexamethasone, which certainly impedes skin healing * GERD: H2B * Vitamin D deficiency: 6. VTE prophylaxis: LMWH Inpatient E&M: 19405 Subs Hosp L2
[2020-07-16] MEDS: Docusate Sodium 100 MG Capsule PO (09:19)
[2020-07-16] MEDS: levETIRAcetam 250 MG Tablet 750 MG PO ×2 (09:19→21:37)
[2020-07-16] MEDS: Senna Tablet 1 TABLET PO ×2 (09:20→21:38)
[2020-07-16] MEDS: Famotidine 20 MG Tablet PO ×2 (09:20→21:38)
[2020-07-16] MEDS: Acetaminophen 500 MG Tablet 1000 MG PO ×2 (09:20→21:37)
[2020-07-16] MEDS: dexAMETHasone 2 MG TABLET 3 MG PO (09:20)
--- NOTE | 2020-07-16 09:38 | CASEMGMT ---
Social Work Note SW spoke with Alina in TCU. Pt is going for surgery today. Alina will submit for pre-cert after pt has surgery today. Plan: TCU pending pre-cert Pricilla POSEY, ONCOLOGIST
--- NOTE | 2020-07-16 10:49 | NURSING ---
Pt currently off unit for surgery. will follow for wound care post op.
[2020-07-16] MEDS: Lidocaine 1%/Epi 1:200 (30ml) 30 ML AMPUL (12:11)
--- NOTE | 2020-07-16 12:39 | PCM.OPRPT ---
Report of Operation Date of Procedure: 07/16/20 Pre-Operative Diagnosis: 1. Traumatic infected necrotic hematoma abscess right anterior leg. 2. Chronic falls at home. 3. Smoker. 4. Glioblastoma multiforme status post craniectomy and chemoradiation on long-term dexamethasone and Keppra. 5. Multiple skin tears upper and lower extremities from her recent fall. 6. Recent bilateral wrist fractures, splinted. Post-Operative Diagnosis: 1. Traumatic infected necrotic hematoma abscess right anterior leg. 2. Chronic falls at home. 3. Smoker. 4. Glioblastoma multiforme status post craniectomy and chemoradiation on long-term dexamethasone and Keppra. 5. Multiple skin tears upper and lower extremities from her recent fall. 6. Recent bilateral wrist fractures, splinted. 7. Traumatic hematoma right posterior leg. Surgery/Procedure Performed:: 1. Surgical preparation right anterior leg with incision and drainage and evacuation and excisional debridement traumatic infected necrotic hematoma abscess including overlying compromised skin with necrosis (522 cm2). 2. Surgical preparation right posterior leg with incision and drainage and evacuation and excisional debridement traumatic hematoma (34 cm2). Description of Surgical Findings:: The patient is a 60 year old F with history of glioblastoma brain status post craniotomy, chemotherapy on long-term dexamethasone recently fell down her stairs on 07/04/20. She went to the ED and x-rays showed bilateral wrist fractures. She also sustained multiple skin tears and a large hematoma skin tear right anterior leg. Some sutures were placed. She was transferred to [place] for further care. She presented to the ED earlier today and was noted to have malodorous drainage from the right leg. There is overlying skin necrosis from the hematoma which is now infected. Patient is known to me from previous falls that resulted in chronic ulcers that needed debridement and wound care and antibiotics and eventual skin grafting. I was asked to evaluate this patient for surgical options for treatment. Patient was informed of the risks and complications of the procedure including alternatives to surgery. These were discussed with the patient personally. Patient voices understanding and wishes to proceed. Size of defect right anterior leg - 18 x 29 x 2 cm. Size of defect right posterior leg - 8.5 x 4 x 1 cm. coat joiner lockstitch: Lars Colon. Type of Anesthesia:: General Specimen's removed: Traumatic infected necrotic hematoma right anterior leg and traumatic hematoma right posterior leg to Pathology and Microbiology. Drains: None. Estimated Blood Loss (mL): 100 ml. Description of Procedure: Patient was taken to OR in supine position and was placed under general anesthesia. The right leg was prepped and draped in the usual fashion. SCD's were placed on the left leg for DVT prophylaxis. Perioperative antibiotics were given intravenously. For the procedure, I wore an N95 mask and wore proper eyewear protection. The traumatic hematoma right anterior leg was infiltrated with xylocaine and epinephrine. After waiting 5 minutes for the anesthetic to take effect, I proceeded with an incision and drainage of the hematoma around the necrotic skin on the right anterior leg. No pus was seen but there was some liquefaction of the large hematoma with associated odor signifying an infection. The infected hematoma extended to the underlying muscle and fascia and was adherent. The fascia was inflamed yet viable. Some of the fascia was excised and debrided. No necrotizing process was seen. The underlying visible muscle appeared viable. The overlying necrotic skin as well as associated fat necrosis surrounding the infected hematoma was excised and debrided. It was noted there was an additional hematoma on the right posterior leg. I proceeded with an incision and drainage and evacuation of the hematoma right posterior leg. No pus was seen but there was some liquefaction of hematoma. There was no associated odor at this time. The hematoma extended to the underlying muscle and fascia and was adherent. The fascia was inflamed yet viable. No necrotizing process was seen. An incision was made in the fascia and the underlying muscle appeared viable. The associated fat necrosis surrounding the hematoma was excised and debrided. Hemostasis was obtained with electrocautery. The wound was irrigated with saline. The estimated blood loss including the hematoma was about 100 ml. The size of the defect right anterior leg after incision and drainage and evacuation and excisional debridement of this traumatic necrotic infected hematoma abscess was 18 x 29 x 2 cm or 522 cm2. The size of the defect right posterior leg after incision and drainage and evacuation and excisional debridement of this traumatic hematoma was 8.5 x 4 x 1 cm or 34 cm2. Tissue that was removed from these hematomas was sent to Pathology for analysis to rule out carcinoma and to Microbiology for culture. A positive culture will necessitate antibiotic therapy. The wounds were dressed with Mepitel nonadherent dressing followed by Kerlix gauze and Betadine followed by dry Kerlix gauze and ABD pads and a compression NICKY wrap. Patient tolerated the procedure well and was sent to PACU in satisfactory condition. Patient will be sent upstairs for continued postop care. The NPWT device may be applied tomorrow. Because of the amount of bleeding seen, I may wait a couple of days before applying the VAC and just proceed with continued Betadine dressings or Dakin's dressing changes with an nicky wrap for compression. After discharge she [facility]. Depending on the healing, she may benefit from delayed closure with skin grafting or with the use of advanced skin substitute grafts. She will keep her right leg elevated when sitting. Grafts/Implants Used: None. - Complications None. - Admit VTE Documentation VTE Present on Admission: No VTE Mechan Device Prophylaxis: SCD's VTE Pharm Prophylaxis ordered?: Yes Surgery Charges CPT - 49203 ICD-10 - S81.801A, L02.415, I96, S80.11xA, W19.xxxA, F17.200, C71.9, S40.819A, S80.819A 46644 S81.801A, L02.415, I96, S80.11xA, W19.xxxA, F17.200, C71.9, S40.819A, S80.819A 16831 S81.801A, L02.415, I96, S80.11xA, W19.xxxA, F17.200, C71.9, S40.819A, S80.819A 12828 S81.801A, L02.415, I96, S80.11xA, W19.xxxA, F17.200, C71.9, S40.819A, S80.819A 50848 S81.801A, L02.415, I96, S80.11xA, W19.xxxA, F17.200, C71.9, S40.819A, S80.819A 75572 S81.801A, L02.415, I96, S80.11xA, W19.xxxA, F17.200, C71.9, S40.819A, S80.819A 42216 L02.415, I96, S80.11xA, S81.801A, W19.xxxA, F17.200, C71.9, S40.819A, S80.819A 56150 L02.415, I96, S80.11xA, S81.801A, W19.xxxA, F17.200, C71.9, S40.819A, S80.819A
--- NOTE | 2020-07-16 13:00 | TISS_PTH ---
PATIENT: GEORGINA SKINNER LOC: [facility] U#:[id number] AGE/SX: 60/F ROOM: W[facility]312 RE07/15/[address]: Dr. Melissa Jerome MD : 1960 BED: 1 DIS: 07/22/2020 SPEC #: [id number] RECD: 07/16/20 13:00 STATUS: NANCY RESilvino #: [id number] MARRY: 07/16/20 13:[address]: Kei Moya DEPT: SURGICAL PATHOLOGY RECD BY: Thao Paz ENTERED: 07/16/20 14:04 SP TYPE: Tissue Bx OTHR DR: Dr. Israel Anne, DO Dr. Loc Arizmendi, DO MD Dr. Lisa Mcintosh, Tissues: TISSUE SURGICALLY REMOVED Procedures: Surgery Specimen Level IV Comments: @ Ordering doctor for SUIV edited from to @ by GAUTAM at 07/17/20 0950 @ Submitting doctor edited from to @ by RGOOD at 07/17/20 0950 HEADER OPERATION: Incision, drainage anterior leg PRE-OP DIAGNOSIS: Necrotic infected hematoma right anterior leg TISSUE SUBMITTED: Debrided right anterior leg tissue MICROSCOPIC DIAGNOSIS Skin and soft tissue of right anterior leg, excision: Ulceration with associated acute and chronic inflammation and granulation. AM:nathan 07/21/2020 MICROSCOPIC DESCRIPTION Slides are reviewed. GROSS DESCRIPTION Received in fixative is one container labeled with the patient's name and designated right anterior leg tissue. The specimen consists of multiple irregular fragments of vargas-yellow fibrofatty tissue with adherent fragments of vargas to grayish-black skin. The specimen in aggregate measures 15 x 11 x 3 cm. Serial sections do not reveal mass lesions. Carding Machine Feeder sections are submitted in four cassettes. / AM:nathan 07/17/20 TC:2 CPT: 36083
[2020-07-16] MEDS: oxyCODONE 5 MG Tablet PO ×2 (15:02→23:11)
--- NOTE | 2020-07-16 15:37 | CHAPLAIN ---
Type of Pastoral Visit ___ Initial Visit ___ Follow-up Visit ___ On-call Visit ___ General Patient Visit ___ Spiritual Assessment ___ Family Conference ___ Bereavement ___ Rapid Response ___ Code Blue ___ Other (describe below) Pastoral Care Referral From ___ Patient ___ Family ___ Nurse ___ Physician ___ Medical File Clerk ___ Corporate Safety Manager ___ Other (describe below) Sacrament/Intervention ___ Active listening ___ Anointing ___ Bahai ___ Bereavement ___ Communion ___ Kaitlin exploration ___ ___ Life review ___ Prayer ___ Reconciliation ___ Sacrament of Sick ___ Supportive presence ___ Wedding ___ Other (describe below) Pastoral Comments patient unavailable and calling card left in room
[2020-07-16] MEDS: 0.9% Normal Saline 1,000 ML 70 ML IV (17:27)
[2020-07-16] MEDS: Calcium Carbonate 500 MG Tablet 1000 MG PO (17:28)
[2020-07-16] MEDS: Polyethylene Glycol 3350 17 GM PACKET PO (17:29)
[2020-07-16] MEDS: LORazepam 1 MG Tablet PO (21:37)
[2020-07-16] MEDS: MELATONIN 3 MG TABLET 6 MG PO (21:37)
[2020-07-16] MEDS: Enoxaparin 30 MG/0.3 ML Syringe SC (21:38)
[2020-07-16] MEDS: Sertraline 50 MG Tablet 150 MG PO (21:38)
[2020-07-17 02:45] VITALS: BMI 30.3
[2020-07-17 02:47] VITALS: BP 107/58; PULSE 60; RESP 16; TEMP 36.8; O2SAT 92
[2020-07-17 05:41] VITALS: BMI 30.3
[2020-07-17 06:27] LABS: Hematocrit 27.6 % (37-47); Hemoglobin 8.8 g/dL (12.0-15.0); Mean Corp Hgb Conc 31.9 g/dL (32-36); Mean Corpuscular Hgb 32.2 pg (27.0-32.0); Mean Corpuscular Volume 101.1 fL (81-99); Mean Platelet Vol. 9.8 fl (6.2-12.0); Platelet Count 204 K/mm3 (150-450); RBC Distribution Width CV 14.1 % (11.6-14.6); RBC Distribution Width SD 51.8 fl (35.1-43.9); Red Blood Count 2.73 M/mm3 (4.2-5.4); White Blood Count 8.8 K/mm3 (4.4-11.0)
[2020-07-17] MEDS: Vancomycin IV 1,000 MG/200 ML BAG 200 MG IV ×2 (06:30→19:12)
[2020-07-17 06:35] VITALS: O2SAT 93
[2020-07-17 06:42] LABS: Erythrocyte Sedimentation Rate 88 mm/hr (0-30)
[2020-07-17] MEDS: levoFLOXacin 500 MG Tablet PO (06:45)
[2020-07-17] MEDS: Acetaminophen 500 MG Tablet 1000 MG PO ×2 (06:48→22:12)
[2020-07-17 06:53] LABS: Vancomycin, Trough Level 11.2 ug/mL (5.0-15.0)
[2020-07-17 06:59] LABS: ALB/GLOB Ratio 0.8 RATIO (0.9-2.4); AST(SGOT) 26 U/L (15-37); Alanine Aminotransfer ALT/SGPT 44 U/L (13-56); Albumin, Serum 2.5 g/dL (3.2-5.0); Alkaline Phosphatase 232 U/L (45-117); Anion Gap 5 (5-15); BUN 18 mg/dL (7-18); BUN/Creat Ratio 26.6 RATIO (10-20); Calcium,Total 8.5 mg/dL (8.5-10.1); Chloride 105 mmol/L (98-107); Creatinine, Serum 0.68 mg/dL (0.55-1.02); EST Glomerular Filtration Rate 94 mL/min (>60); Est Glom Filt Rate - Afr Amer 113 mL/min (>60); Glucose 107 mg/dL (74-106); Potassium 3.4 mmol/L (3.5-5.1); Prealbumin 13.9 mg/dL (20.0-40.0); Protein, Total 5.5 g/dL (6.4-8.2); Sodium Level 137 mmol/L (136-145)
--- NOTE | 2020-07-17 07:16 | PCS.PANDOC ---
PANDEMIC DOCUMENTATION INITIATED: Date: 06/23/2020 Time:
[2020-07-17] MEDS: Multivitamins,Therapeutic Tablet 1 TABLET PO (07:58)
[2020-07-17] MEDS: Famotidine 20 MG Tablet PO ×2 (07:58→21:14)
[2020-07-17] MEDS: levETIRAcetam 250 MG Tablet 750 MG PO ×2 (07:58→21:11)
[2020-07-17] MEDS: dexAMETHasone 2 MG TABLET 3 MG PO (07:59)
[2020-07-17] MEDS: Polyethylene Glycol 3350 17 GM PACKET PO (08:01)
[2020-07-17] MEDS: Docusate Sodium 100 MG Capsule PO (08:02)
[2020-07-17] MEDS: Calcium Carbonate 500 MG Tablet 1000 MG PO ×2 (08:02→17:04)
[2020-07-17] MEDS: Senna Tablet 1 TABLET PO ×2 (08:02→21:14)
[2020-07-17] MEDS: oxyCODONE 5 MG Tablet PO (08:02)
[2020-07-17] MEDS: Enoxaparin 30 MG/0.3 ML Syringe SC ×2 (08:03→21:14)
--- NOTE | 2020-07-17 08:33 | PCM.RX.CS ---
Consult Pharmacy has been consulted to manage selected antiobiotic: Vancomycin Type of Consult: Follow-up Suspected Infection: Skin/Soft tissue Labs: Sodium 137 mmol/L (136-145) 07/17/20 06:15 Potassium 3.4 mmol/L (3.5-5.1) L 07/17/20 06:15 Chloride 105 mmol/L (98-107) 07/17/20 06:15 Carbon Dioxide 27.0 mmol/L (21.0-32.0) 07/17/20 06:15 Anion Gap 5 (5-15) 07/17/20 06:15 BUN 18 mg/dL (7-18) 07/17/20 06:15 Creatinine 0.68 mg/dL (0.55-1.02) 07/17/20 06:15 Est GFR (MDRD) Af Amer 113 mL/min (>60) 07/17/20 06:15 Est GFR (MDRD) Non-Af 94 mL/min (>60) 07/17/20 06:15 BUN/Creatinine Ratio 26.6 RATIO (10-20) H 07/17/20 06:15 Glucose 107 mg/dL (74-106) H 07/17/20 06:15 Vancomycin Trough 11.2 ug/mL (5.0-15.0) 07/17/20 06:15 Microbiology: Microbiology 07/16/20 12:00 Tissue - Leg, Right Gram Stain - Final 07/15/20 17:15 Mucosa - Nose SARS-CoV-2 Antigen (Rapid) - Final Goal Trough: 10-15 mcg/mL Pharmacy Plan for Drug Dosing: VANCOMYCIN LEVEL RECEIVED Current Vancomycin Dose: 1000mg q12h (at 0630,1830) Number of Doses Received: 4 doses Vancomycin Level: 11.2 Hours Since Last Dose: 12 Renal Function: SrCr is 0.68 Renal Function Trend: stable Lab/Micro: Vancomycin Plan/Comments: trough level is within goal range of 10-15. recommend continuing same dose of 1000mg q12h and drawing another trough level 07/19/20 at 0600 Pending Level: 07/19/20 at 0600 Pharmacy Service will continue to monitor and adjust dosing as required. Follow-Up Labs: Trough Vancomycin - 07/19/20 @ 0600
--- NOTE | 2020-07-17 09:05 | PN_ITS ---
Patient Problems: Active and Suspected Problems (Last Reviewed 07/15/20 @ 19:[address] Lisa Ridley DO) Leg wound, right (Acute) Wrist fracture, bilateral (Acute) Reason for Visit: necrotic leg wound Subjective: Surgery report reviewed. Has some discomfort in right leg, but just received oxycodone. Objective: Right lower extremity evaluated with wound RN: large anterior wound involving much of the anterior samuel, scant bleeding distally. Margins clean. Posterior leg wound much smaller with clean margins. Vitals/I&O's: Vital Signs Temp Pulse Resp BP Pulse Ox 36.8 C 60 16 107/58 L 93 07/17/20 02:47 07/17/20 02:47 07/17/20 02:47 07/17/20 02:47 07/17/20 06:35 Oxygen Flow Rate (L/min) 2 Oxygen Delivery Method Room Air Weight: 85.139 kg Body Mass Index (BMI) 30.2 Intake and Output for Last 24 Hours 07/15/20 07/16/20 07/17/20 23:59 23:59 23:59 Intake Total 450.75 / 650.75 2711.33 / 2951.33 1511 / 1511 Output Total 500 / 800 300 / 300 Balance 450.75 / 650.75 2211.33 / 2151.33 1211 / 1211 General: Alert, No apparent distress HEENT: Atraumatic, Normocephalic Oral: Moist Mucosa, No Gingival or Mucosal Lesions/ Ulcerations Neck: No Nodes, Thyroid Normal Size and Texture Lungs: Clear to auscultation, Normal air movement, No rhonchi, No wheeze, No rales Cardiovascular: Regular rate, Regular Rhythm, Normal S1, Normal S2, No murmurs Abdomen: Bowel Sounds Present, Soft, Non Tender, Non-Distended, No Hepato-splen omegaly Extremities: - - bilateral wrists in splints. Psych/Mental Status: Normal Affect, Appropriate Microbiology Past 72 Hours 07/16/20 12:00 Tissue - Leg, Right Gram Stain - Final 07/15/20 17:15 Mucosa - Nose SARS-CoV-2 Antigen (Rapid) - Final Laboratory Results 07/17/20 06:15: Vancomycin Trough 11.2 07/17/20 06:15: WBC 8.8, RBC 2.73 L, Hgb 8.8 L, Hct 27.6 L, MCV 101.1 H, MCH 32.2 H, MCHC 31.9 L, RDW Std Deviation 51.8 H, RDW Coeff of Marylu 14.1, Plt Count 204, MPV 9.8, ESR 88 H 07/17/20 06:15: Sodium 137, Potassium 3.4 L, Chloride 105, Carbon Dioxide 27.0, Anion Gap 5, BUN 18, Creatinine 0.68, Estim Creat Clear Calc 80.30, Est GFR (MDRD) Af Amer 113, Est GFR (MDRD) Non-Af 94, BUN/Creatinine Ratio 26.6 H, Glucose 107 H, Calcium 8.5, Total Bilirubin 0.30, AST 26, ALT 44, Alkaline Phosphatase 232 H, C-React Prot Ext Range 54.50 H, Total Protein 5.5 L, Albumin 2.5 L, Globulin 3.0, Albumin/Globulin Ratio 0.8 L, Prealbumin 13.9 L Current Medications Acetaminophen (Acetaminophen 500 Mg Tablet) 1,000 mg PO BID PRN PRN Reason: Pain Score 1-10 Last Admin: 07/17/20 06:48 Dose: 1,000 mg Documented by: Al Hydroxide/Mg Hydroxide (Mag Hydrox/Al Hydrox/Simeth 30 Ml Udc) 30 ml PO Q6H PRN PRN PRN Reason: Gastric Burning Albuterol Sulfate (Albuterol 2.5 Mg/3 Ml Vial.Neb.) 2.5 mg INHALATION Q2H PRN PRN PRN Reason: Shortness of Breath/Wheezing Calcium Carbonate (Calcium Carbonate 500 Mg Tablet) [facility] Last Admin: 07/17/20 08:02 Dose: 1,000 mg Documented by: Cholecalciferol (Cholecalciferol (Vit D3) 1,000 Unit (25mcg)) 2,000 unit PO DAILY [facility] Last Admin: 07/17/20 08:02 Dose: 2,000 unit Documented by: Dexamethasone (Dexamethasone 2 Mg Tablet) [facility] Last Admin: 07/17/20 07:59 Dose: 3 mg Documented by: Docusate Sodium (Docusate Sodium 100 Mg Capsule) 100 mg PO BID PRN PRN PRN Reason: Constipation Last Admin: 07/17/20 08:02 Dose: 100 mg Documented by: Enoxaparin Sodium (Enoxaparin 30 Mg/0.3 Ml Syringe) 30 mg SC BID [facility] Stop: 07/30/20 22:01 Last Admin: 07/17/20 08:03 Dose: 30 mg Documented by: Famotidine (Famotidine 20 Mg Tablet) 20 mg PO BID [facility] Last Admin: 07/17/20 07:58 Dose: 20 mg Documented by: Hydromorphone HCl (Hydromorphone 1 Mg/Ml Syringe) 1 mg IV Q4H PRN PRN PRN Reason: Pain Score 6-10 Vancomycin IV Pharmacy to Dose (1 ea/ Sodium Chloride) 500 mls @ 250 mls/hr IV X1 PRN; Protocol PRN Reason: Rx to Dose Vancomycin HCl (Vancomycin) 1,000 mg in 200 mls @ 200 mls/hr IV Q12H [facility] Last Infusion: 07/17/20 07:51 Dose: Infused Documented by: Sodium Chloride () 250 mls @ 15 mls/hr IV .[id number] PRN PRN Reason: Additional IVPB Infusion Last Infusion: 07/17/20 07:51 Dose: 0 mls/hr Documented by: Sodium Chloride () 1,000 mls @ 70 mls/hr IV .[id number] [facility] Last Infusion: 07/17/20 07:52 Dose: 70 mls/hr Documented by: Piperacillin Sod/Tazobactam (Sod 3.375 gm/ Sodium Chloride) 50 mls @ 12.5 mls/hr IV Q8 [facility] Last Admin: 07/17/20 07:49 Dose: 12.5 mls/hr Documented by: Levetiracetam (Levetiracetam 250 Mg Tablet) 750 mg PO BID [facility] Last Admin: 07/17/20 07:58 Dose: 750 mg Documented by: Levofloxacin (Levofloxacin 500 Mg Tablet) 500 mg PO DAILY@0600 [facility] Last Admin: 07/17/20 06:45 Dose: 500 mg Documented by: Lorazepam (Lorazepam 1 Mg Tablet) 1 mg PO QHS [facility] Last Admin: 07/16/20 21:37 Dose: 1 mg Documented by: Melatonin (Melatonin 3 Mg Tablet) 6 mg PO QHS [facility] Last Admin: 07/16/20 21:37 Dose: 6 mg Documented by: Multivitamins (Multivitamins,Therapeutic Tablet) 1 tablet PO DAILYCM [facility] Last Admin: 07/17/20 07:58 Dose: 1 tablet Documented by: Ondansetron HCl (Ondansetron 4 Mg/2 Ml Vial) 4 mg IV Q8H PRN PRN PRN Reason: NAUSEA/VOMITING Oxycodone HCl (Oxycodone 5 Mg Tablet) 5 mg PO Q8H PRN PRN PRN Reason: Pain Score 4-10 Last Admin: 07/17/20 08:02 Dose: 5 mg Documented by: Polyethylene Glycol (Polyethylene Glycol 3350 17 Gm Packet) 17 gm PO DAILY [facility] Last Admin: 07/17/20 08:01 Dose: 17 gm Documented by: Senna (Senna Tablet) 1 tablet PO BID [facility] Last Admin: 07/17/20 08:02 Dose: 1 tablet Documented by: Sertraline HCl (Sertraline 50 Mg Tablet) 150 mg PO QHS [facility] Last Admin: 07/16/20 21:38 Dose: 150 mg Documented by: Sodium Chloride (0.9% Saline Lock 10 Ml Syringe) 10 - 40 ml IV UD PRN PRN Reason: SALINE FLUSH Last Admin: 07/15/20 19:35 Dose: 10 ml Documented by: Sodium Hypochlorite (Dakin's Roxie Half Strength (=0.25%)) 1 applic TOPICAL DAILY [facility]; Protocol STROKE Vital Signs/Narrative: Vital Signs Pulse Ox 07/17/20 06:35 93 Medical Necessity - Tobacco Use Smoking Status: Current every day smoker Tobacco Use: Cigarettes Assessment/Plan All Active Problems (Last Reviewed 07/15/20 @ 19:[address] Lisa Ridley, DO) Leg wound, right (Acute) Wrist fracture, bilateral (Acute) 1. R leg wound with necrotic hematoma and abscess * 07/06: 1. incision and drainage and evacuation and excisional debridement traumatic infected necrotic hematoma abscess including overlying compromised skin with necrosis (522 cm2). 2. Surgical preparation right posterior leg with incision and drainage and evacuation and excisional debridement traumatic hematoma (34 cm2). * on pip/tazo and vanc * follow up surgical cultures, thus far negative (antibiotics begun before cul tures taken) * DW wound care, will attempt wound vac today 2. Bilateral wrist fxrs * continue splints * outpt ortho follow up. 3. seizure disorder * on levetiracetam 4. Debility * PT OT * back to SNF upon discharge. Look into TCU per family request 5. Chronic conditions: * GBM: stable. Follow up with oncology. On Dexamethasone, which certainly impedes skin healing * GERD: H2B * Vitamin D deficiency: 6. VTE prophylaxis: LMWH Inpatient E&M: 26131 Subs Hosp L2
--- NOTE | 2020-07-17 09:18 | NURSING ---
voicemail message x2 left on daughter [employer] cell phone number- requesting return phone call to [facility] with phone number provided. will get picc line consent from daughter who is POA
[2020-07-17 09:39] VITALS: BP 96/63; PULSE 70; RESP 16; TEMP 36.9; O2SAT 93
--- NOTE | 2020-07-17 09:39 | NURSING ---
AccessRN called for PICC line placement. Aware that consent has been obtained from daughter POA.
[2020-07-17] MEDS: 0.9% Normal Saline 1,000 ML 70 ML IV (09:43)
--- NOTE | 2020-07-17 09:44 | CASEMGMT ---
Social Work Note SW spoke with Alina in TCU. Alina to submit for pre-cert once PT/OT works with pt. No PT/OT notes available at this time. Pricilla Cintron DIE MACHINE OPERATOR, HEEL FINISHER
--- NOTE | 2020-07-17 10:50 | PN.SURG_ITS ---
Patient Problems: Active and Suspected Problems (Last Reviewed 07/15/20 @ 19:[address] Lisa Ridley DO) Leg wound, right (Acute) Wrist fracture, bilateral (Acute) Subjective: Post op day #1 Patient is resting in bed. - Physical Exam Vitals/I&O's: Vital Signs Temp Pulse Resp BP Pulse Ox 98.4 F 70 16 96/63 93 07/17/20 09:39 07/17/20 09:39 07/17/20 09:39 07/17/20 09:39 07/17/20 09:39 Oxygen Flow Rate (L/min) 2 Oxygen Delivery Method Room Air Weight: 187 lb 11.19 oz Body Mass Index (BMI) 30.2 Intake and Output for Last 24 Hours 07/15/20 07/16/20 07/17/20 23:59 23:59 23:59 Intake Total 450.75 / 650.75 2711.33 / 2951.33 1867.83 / 1867.83 Output Total 500 / 800 300 / 300 Balance 450.75 / 650.75 2211.33 / 2151.33 1567.83 / 1567.83 General: Alert, Cooperative HEENT: Atraumatic Oral: Moist Mucosa Lungs: Normal air movement Cardiovascular: Regular rate Extremities: Capillary Refill Less than 3 Seconds, Edema Skin: Ulcer/ Wound - Right anterior leg wound to the muscle. When the dressing was removed, there was bleeding on the distal portion that required pressure and eventually silver nitrate to get the bleeding/oozing to stop. Posterior right leg/calf wound is beefy pink. She has skin tears on bilateral knees. Musculoskeletal: Tenderness - Bilateral wrists, knees and right leg are tender. Neurological: Cranial nerves II-XII grossly intact Psych/Mental Status: Normal Affect Microbiology Past 72 Hours 07/16/20 12:00 Tissue - Leg, Right Gram Stain - Final 07/16/20 12:00 Tissue - Leg, Right Wound Culture - Preliminary Gram negative kristopher GNR lactose environmental monitoring specialist 07/15/20 17:15 Mucosa - Nose SARS-CoV-2 Antigen (Rapid) - Final Laboratory Results 07/17/20 06:15: Vancomycin Trough 11.2 07/17/20 06:15: WBC 8.8, RBC 2.73 L, Hgb 8.8 L, Hct 27.6 L, MCV 101.1 H, MCH 32.2 H, MCHC 31.9 L, RDW Std Deviation 51.8 H, RDW Coeff of Marylu 14.1, Plt Count 204, MPV 9.8, ESR 88 H 07/17/20 06:15: Sodium 137, Potassium 3.4 L, Chloride 105, Carbon Dioxide 27.0, Anion Gap 5, BUN 18, Creatinine 0.68, Estim Creat Clear Calc 80.30, Est GFR (MDRD) Af Amer 113, Est GFR (MDRD) Non-Af 94, BUN/Creatinine Ratio 26.6 H, Glucose 107 H, Calcium 8.5, Total Bilirubin 0.30, AST 26, ALT 44, Alkaline Phosphatase 232 H, C-React Prot Ext Range 54.50 H, Total Protein 5.5 L, Albumin 2.5 L, Globulin 3.0, Albumin/Globulin Ratio 0.8 L, Prealbumin 13.9 L Current Medications Acetaminophen (Acetaminophen 500 Mg Tablet) 1,000 mg PO BID PRN PRN Reason: Pain Score 1-10 Last Admin: 07/17/20 06:48 Dose: 1,000 mg Documented by: Al Hydroxide/Mg Hydroxide (Mag Hydrox/Al Hydrox/Simeth 30 Ml Udc) 30 ml PO Q6H PRN PRN PRN Reason: Gastric Burning Albuterol Sulfate (Albuterol 2.5 Mg/3 Ml Vial.Neb.) 2.5 mg INHALATION Q2H PRN PRN PRN Reason: Shortness of Breath/Wheezing Calcium Carbonate ([facility] Last Admin: 07/17/20 08:02 Dose: 1,000 mg Documented by: Cholecalciferol (Cholecalciferol (Vit D3) 1,000 Unit (25mcg)) 2,000 unit PO DAILY [facility] Last Admin: 07/17/20 08:02 Dose: 2,000 unit Documented by: Dexamethasone (Dexamethasone 2 Mg Tablet) [facility] Last Admin: 07/17/20 07:59 Dose: 3 mg Documented by: Docusate Sodium (Docusate Sodium 100 Mg Capsule) 100 mg PO BID PRN PRN PRN Reason: Constipation Last Admin: 07/17/20 08:02 Dose: 100 mg Documented by: Enoxaparin Sodium (Enoxaparin 30 Mg/0.3 Ml Syringe) 30 mg SC BID [facility] Stop: 07/30/20 22:01 Last Admin: 07/17/20 08:03 Dose: 30 mg Documented by: Famotidine (Famotidine 20 Mg Tablet) 20 mg PO BID [facility] Last Admin: 07/17/20 07:58 Dose: 20 mg Documented by: Hydromorphone HCl (Hydromorphone 1 Mg/Ml Syringe) 0.5 mg IV Q4H PRN PRN PRN Reason: BREAKTHROUGH PAIN (>4/10) Vancomycin IV Pharmacy to Dose (1 ea/ Sodium Chloride) 500 mls @ 250 mls/hr IV X1 PRN; Protocol PRN Reason: Rx to Dose Vancomycin HCl (Vancomycin) 1,000 mg in 200 mls @ 200 mls/hr IV Q12H [facility] Last Infusion: 07/17/20 07:51 Dose: Infused Documented by: Sodium Chloride () 250 mls @ 15 mls/hr IV .[id number] PRN PRN Reason: Additional IVPB Infusion Last Infusion: 07/17/20 07:51 Dose: 0 mls/hr Documented by: Sodium Chloride () 1,000 mls @ 70 mls/hr IV .[id number] [facility] Last Infusion: 07/17/20 12:15 Dose: 0 mls/hr Documented by: Piperacillin Sod/Tazobactam (Sod 3.375 gm/ Sodium Chloride) 50 mls @ 12.5 mls/hr IV Q8 [facility] Last Infusion: 07/17/20 12:15 Dose: Infused Documented by: Levetiracetam (Levetiracetam 250 Mg Tablet) 750 mg PO BID [facility] Last Admin: 07/17/20 07:58 Dose: 750 mg Documented by: Levofloxacin (Levofloxacin 500 Mg Tablet) 500 mg PO DAILY@0600 [facility] Last Admin: 07/17/20 06:45 Dose: 500 mg Documented by: Lorazepam (Lorazepam 1 Mg Tablet) 1 mg PO QHS [facility] Last Admin: 07/16/20 21:37 Dose: 1 mg Documented by: Melatonin (Melatonin 3 Mg Tablet) 6 mg PO QHS [facility] Last Admin: 07/16/20 21:37 Dose: 6 mg Documented by: Multivitamins (Multivitamins,Therapeutic Tablet) [facility] Last Admin: 07/17/20 07:58 Dose: 1 tablet Documented by: Ondansetron HCl (Ondansetron 4 Mg/2 Ml Vial) 4 mg IV Q8H PRN PRN PRN Reason: NAUSEA/VOMITING Oxycodone HCl (Oxycodone 5 Mg Tablet) 5 mg PO Q4H PRN PRN Reason: Pain Score 4-5 Oxycodone HCl (Oxycodone 5 Mg Tablet) 10 mg PO Q4H PRN PRN PRN Reason: Pain Score 6-10 Polyethylene Glycol (Polyethylene Glycol 3350 17 Gm Packet) 17 gm PO DAILY [facility] Last Admin: 07/17/20 08:01 Dose: 17 gm Documented by: Senna (Senna Tablet) 1 tablet PO BID [facility] Last Admin: 07/17/20 08:02 Dose: 1 tablet Documented by: Sertraline HCl (Sertraline 50 Mg Tablet) 150 mg PO QHS [facility] Last Admin: 07/16/20 21:38 Dose: 150 mg Documented by: Sodium Chloride (0.9% Saline Lock 10 Ml Syringe) 10 - 40 ml IV UD PRN PRN Reason: SALINE FLUSH Last Admin: 07/15/20 19:35 Dose: 10 ml Documented by: Sodium Hypochlorite (Dakin's Roxie Half Strength (=0.25%)) 1 applic TOPICAL DAILY [facility]; Protocol Last Admin: 07/17/20 10:57 Dose: 1 applicatio Documented by: Medical Necessity - Tobacco Use Smoking Status: Current every day smoker Tobacco Use: Cigarettes Assessment/Plan All Active Problems (Last Reviewed 07/15/20 @ 19:[address] Lisa Ridley, DO) Leg wound, right (Acute) Wrist fracture, bilateral (Acute) . Traumatic infected necrotic hematoma abscess right anterior leg. 2. Chronic falls at home. 3. Smoker. 4. Glioblastoma multiforme status post craniectomy and chemoradiation on long- term dexamethasone and Keppra. 5. Multiple skin tears upper and lower extremities from her recent fall. 6. Recent bilateral wrist fractures, splinted. 7. Traumatic hematoma right posterior leg. Dressing changed on right anterior leg and right posterior leg/calf wounds. Dakin's moistened gauze applied and topped with ABDs and Kerlix. Wounds are painful while dressing changes are occurring. There was some bleeding on the distal portion of the anterior leg wound. Pressure was held and it required silver nitrate to help get the bleeding to stop. Will do Dakin's moistened gauze topped with ABD and Kerlix dressing changes daily. Will wrap with ABD for compression. Preliminary wound cultures positive for Gram negative kristopher and GNR lactose environmental monitoring specialist. She is currently on IV Vancomycin, Zosyn and Levaquin. Prealbumin today is 13.9. Hgb 8.8 will continue to monitor. The plan is for her to go to TCU upon discharge. When she is discharged from TCU she will follow up with us at the wound center.
[2020-07-17] MEDS: DAKIN'S SOL HALF STRENGTH (=0.25%) 1 APPLIC TOPICAL (10:57)
--- NOTE | 2020-07-17 11:28 | NURSING ---
wound photo: right anterior lower leg
--- NOTE | 2020-07-17 11:31 | NURSING ---
wound photo: right posterior lower leg
--- NOTE | 2020-07-17 12:02 | CHAPLAIN ---
Type of Pastoral Visit _x__ Initial Visit ___ Follow-up Visit ___ On-call Visit ___ General Patient Visit ___ Spiritual Assessment ___ Family Conference ___ Bereavement ___ Rapid Response ___ Code Blue ___ Other (describe below) Pastoral Care Referral From _x__ Patient ___ Family ___ Nurse ___ Physician ___ Manager Marketing Communications ___ Shell Mold Bonding Machine Operator ___ Other (describe below) Sacrament/Intervention _x__ Active listening ___ Anointing ___ Oriental Orthodox ___ Bereavement ___ Communion _x__ Kaitlin exploration ___ _x__ Life review _x__ Prayer ___ Reconciliation ___ Sacrament of Sick _x__ Supportive presence ___ Wedding ___ Other (describe below) Pastoral Comments patient was receiving wound care from RN and was very welcoming of visit and spiritual care support; pt gives compliments of good care and presents with positive and optimistic words such as with Swapnil my life is good and He is always with me; pt had devotional book at her side and this pie filler offered to read today's selection and pt agreed; pt talks about family and kaitlin; PT came to do assessment at this time;
--- NOTE | 2020-07-17 12:15 | NURSING ---
iv very positional and even with multiple attempts at resecuring- as soon as nursing staff out of room, pt forgets and bends arm causing alarms to ring almost constantly- ivacs both turned off- PICCteam should be arrving between [id number]
--- NOTE | 2020-07-17 13:32 | CASEMGMT ---
Social Work Note JOZEF received message from Alina in TCU stating she attempted to submit for pre-cert but [facility] currently still has an open SNF case with pt and that needs to be closed on their end before TCU can submit for pre-cert. JOZEF placed a call to Micaela at [facility] and spoke with her regarding pt's open SNF case with [facility]. Micaela states she is not sure how to close it but will call Andra and see what she has to do. JOZEF placed a call back to Alina in TCU and updated her that [facility] is working on it. Alina states pt's insurance [employer] is working today. Plan: TCU pending pre-cert Pricilla Cintron CANDLEMAKING LABORER, FIRE EXTINGUISHER REPAIRER
[2020-07-17 14:23] VITALS: BMI 30.3
[2020-07-17 14:26] VITALS: BP 98/71; PULSE 65; RESP 18; TEMP 37; O2SAT 93
--- NOTE | 2020-07-17 15:03 | NURSING ---
pt threw her purewick on the floor, raising voice to said nurse, unable to reason with pt unlike this am pt was able to be reasoned with. mood very labile at present despite attempts to de-escalate
--- NOTE | 2020-07-17 15:26 | CASEMGMT ---
Addendum entered by Pricilla Cintron 07/17/20 16:29: JOZEF received call from pt's daughter Marine. SW updated Marine that pre-cert is still pending, if pre-cert is not obtained today pt will be at [facility] through the weekend. Marine states understanding, asked for medical update. JOZEF informed Marine this worker will have RN call her at some point today. JOZEF updated RN that Marine would like to be called for medical update. Addendum entered by Pricilla Cintron 07/17/20 16:11: JOZEF placed green sheet on chart in the event pre-cert is obtained. Plan: TCU pending pre-cert Original Note: Social Work Note JOZEF attempted to call pt's daughter Marine to provide update, no answer, JOZEF left message for Marine to call this worker back for update. Plan: TCU pending pre-cert Pricilla Cintron DERRICK WORKER, SKIN CARVER
[2020-07-17 15:31] VITALS: BP 111/74; PULSE 68; O2SAT 95
[2020-07-17] MEDS: oxyCODONE 5 MG Tablet 10 MG PO ×2 (15:36→22:11)
[2020-07-17] MEDS: 0.9% Saline Lock 10 ML Syringe IV (17:11)
[2020-07-17 21:04] VITALS: BP 99/64; PULSE 73; RESP 20; TEMP 37.4; O2SAT 92
[2020-07-17] MEDS: LORazepam 1 MG Tablet PO (21:12)
[2020-07-17] MEDS: Sertraline 50 MG Tablet 150 MG PO (21:13)
[2020-07-17] MEDS: MELATONIN 3 MG TABLET 6 MG PO (21:14)
[2020-07-18] VITALS (7 sets, daily range): BP systolic 86–112; BP diastolic 55–65; PULSE 64–93; RESP 16–18; TEMP 36.5–37.2; O2SAT 93–95
[2020-07-18] MEDS: HYDROmorphone 1 MG/ML Syringe 0.5 MG IV ×2 (01:05→17:36)
[2020-07-18 03:53] LABS: Absolute Lymphocyte Count 0.64 X10^3/uL (0.83-4.51); Absolute Neutrophil Count 5.5 X10^3/uL (2.0-7.7); Basophil# 0.04 X10^3/uL; Basophil% 0.6 % (0-1); Eosinophil# 0.06 X10^3/uL; Eosinophils% 0.9 % (0-5); Hemoglobin 8.3 g/dL (12.0-15.0); Lymphocyte # 0.64 X10^3/ul (4.0); Lymphocyte % 9.1 % (19-41); Mean Corp Hgb Conc 31.9 g/dL (32-36); Mean Corpuscular Hgb 32.4 pg (27.0-32.0); Mean Corpuscular Volume 101.6 fL (81-99); Mean Platelet Vol. 9.5 fl (6.2-12.0); Monocyte# 0.65 X10^3/uL; Monocyte% 9.3 % (0-10); NRBC Flagged by Analyzer 0 % (0-5); Neutrophil # 5.45 X10^3/uL (2.7-7.7); Neutrophil % 77.7 % (47-70); Platelet Count 186 K/mm3 (150-450); RBC Distribution Width CV 14.1 % (11.6-14.6); Red Blood Count 2.56 M/mm3 (4.2-5.4)
[2020-07-18 04:16] LABS: Anion Gap 5 (5-15); BUN 13 mg/dL (7-18); BUN/Creat Ratio 18.8 RATIO (10-20); Calcium,Total 8.4 mg/dL (8.5-10.1); Chloride 105 mmol/L (98-107); Creatinine, Serum 0.69 mg/dL (0.55-1.02); EST Glomerular Filtration Rate 91 mL/min (>60); Est Glom Filt Rate - Afr Amer 110 mL/min (>60); Estimated Creatinine Clearance 79.14 ml/min; Glucose 93 mg/dL (74-106); Potassium 3.8 mmol/L (3.5-5.1); Sodium Level 137 mmol/L (136-145)
[2020-07-18] MEDS: levoFLOXacin 500 MG Tablet PO (05:16)
[2020-07-18] MEDS: 0.9% Normal Saline 1,000 ML 70 ML IV ×2 (05:25→22:07)
[2020-07-18] MEDS: Vancomycin IV 1,000 MG/200 ML BAG 200 MG IV ×2 (06:02→18:01)
--- NOTE | 2020-07-18 07:25 | PN_ITS ---
Patient Problems: Active and Suspected Problems (Last Reviewed 07/15/20 @ 19:[address] Lisa Ridley DO) Leg wound, right (Acute) Wrist fracture, bilateral (Acute) Reason for Visit: Right lower extremity necrotic wound Subjective: Patient is a 60-year-old lady with multiple comorbidities admitted with right lower extremity necrotic wound. Admitted to regular nursing floor with consultation placed to plastic surgery. Objective: GENERAL: cooperative HEENT: Atraumatic; EYES; Anicteric, Normal Conjunctiva NECK; supple, normal thyroid, RESPIRATORY: Diminished to auscultation CARDIOVASCULAR: Regular S1 S2, GI: soft, normoactive bowel sounds, : No Renal angle tenderness; EXTREMITIES: In surgical dressing MUSCULOSKELETAL: no muscle waisting NEURO: Awake; no lateralizing signs. SKIN:reas of ecchymosis on both upper and lower extremities PSYCH; Flat affect Vitals/I&O's: Vital Signs Temp Pulse Resp BP Pulse Ox 98.9 F 64 18 100/64 93 07/18/20 03:30 07/18/20 03:30 07/18/20 03:30 07/18/20 03:30 07/18/20 03:30 Oxygen Flow Rate (L/min) 2 Oxygen Delivery Method Room Air Weight: 85.139 kg Body Mass Index (BMI) 30.2 Intake and Output for Last 24 Hours 07/16/20 07/17/20 07/18/20 23:59 23:59 23:59 Intake Total 2711.33 / 2951.33 2444.83 / 2444.83 868.34 / 868.34 Output Total 500 / 800 1100 / 1100 Balance 2211.33 / 2151.33 1344.83 / 1344.83 868.34 / 868.34 Microbiology Past 72 Hours 07/16/20 12:00 Tissue - Leg, Right Gram Stain - Final 07/16/20 12:00 Tissue - Leg, Right Wound Culture - Preliminary Acinetobacter baumannii GNR lactose electrical design technician 07/15/20 17:15 Mucosa - Nose SARS-CoV-2 Antigen (Rapid) - Final Laboratory Results 07/18/20 03:40: WBC 7.0, RBC 2.56 L, Hgb 8.3 L, Hct 26.0 L, MCV 101.6 H, MCH 32.4 H, MCHC 31.9 L, RDW Std Deviation 53.0 H, RDW Coeff of Marylu 14.1, Plt Count 186, MPV 9.5, Immature Gran % (Auto) 2.400 H, Neut % (Auto) 77.7 H, Lymph % (Auto) 9.1 L, [place] % (Auto) 9.3, Eos % (Auto) 0.9, Baso % (Auto) 0.6, Absolute Neuts (auto) 5.5, Absolute Lymphs (auto) 0.64 L, Nucleated RBC % 0 07/18/20 03:40: Sodium 137, Potassium 3.8, Chloride 105, Carbon Dioxide 27.0, Anion Gap 5, BUN 13, Creatinine 0.69, Estim Creat Clear Calc 79.14, Est GFR (MDRD) Af Amer 110, Est GFR (MDRD) Non-Af 91, BUN/Creatinine Ratio 18.8, Glucose 93, Calcium 8.4 L Current Medications Acetaminophen (Acetaminophen 500 Mg Tablet) 1,000 mg PO BID PRN PRN Reason: Pain Score 1-10 Last Admin: 07/17/20 22:12 Dose: 1,000 mg Documented by: Al Hydroxide/Mg Hydroxide (Mag Hydrox/Al Hydrox/Simeth 30 Ml Udc) 30 ml PO Q6H PRN PRN PRN Reason: Gastric Burning Albuterol Sulfate (Albuterol 2.5 Mg/3 Ml Vial.Neb.) 2.5 mg INHALATION Q2H PRN PRN PRN Reason: Shortness of Breath/Wheezing Calcium Carbonate (Calcium Carbonate 500 Mg Tablet) [facility] Last Admin: 07/17/20 17:04 Dose: 1,000 mg Documented by: Cholecalciferol (Cholecalciferol (Vit D3) 1,000 Unit (25mcg)) 2,000 unit PO DAILY [facility] Last Admin: 07/17/20 08:02 Dose: 2,000 unit Documented by: Dexamethasone (Dexamethasone 2 Mg Tablet) [facility] Last Admin: 07/17/20 07:59 Dose: 3 mg Documented by: Docusate Sodium (Docusate Sodium 100 Mg Capsule) 100 mg PO BID PRN PRN PRN Reason: Constipation Last Admin: 07/17/20 08:02 Dose: 100 mg Documented by: Enoxaparin Sodium (Enoxaparin 30 Mg/0.3 Ml Syringe) 30 mg SC BID [facility] Stop: 07/30/20 22:01 Last Admin: 07/17/20 21:14 Dose: 30 mg Documented by: Famotidine (Famotidine 20 Mg Tablet) 20 mg PO BID [facility] Last Admin: 07/17/20 21:14 Dose: 20 mg Documented by: Hydromorphone HCl (Hydromorphone 1 Mg/Ml Syringe) 0.5 mg IV Q4H PRN PRN PRN Reason: BREAKTHROUGH PAIN (>4/10) Last Admin: 07/18/20 01:05 Dose: 0.5 mg Documented by: Vancomycin IV Pharmacy to Dose (1 ea/ Sodium Chloride) 500 mls @ 250 mls/hr IV X1 PRN; Protocol PRN Reason: Rx to Dose Vancomycin HCl (Vancomycin) 1,000 mg in 200 mls @ 200 mls/hr IV Q12H [facility] Last Admin: 07/18/20 06:02 Dose: 200 mls/hr Documented by: Sodium Chloride () 250 mls @ 15 mls/hr IV .[id number] PRN PRN Reason: Additional IVPB Infusion Last Infusion: 07/17/20 07:51 Dose: 0 mls/hr Documented by: Sodium Chloride () 1,000 mls @ 70 mls/hr IV .[id number] [facility] Last Infusion: 07/18/20 06:05 Dose: 0 mls/hr Documented by: Piperacillin Sod/Tazobactam (Sod 3.375 gm/ Sodium Chloride) 50 mls @ 12.5 mls/hr IV Q8 [facility] Last Admin: 07/18/20 05:16 Dose: 12.5 mls/hr Documented by: Levetiracetam (Levetiracetam 250 Mg Tablet) 750 mg PO BID [facility] Last Admin: 07/17/20 21:11 Dose: 750 mg Documented by: Levofloxacin (Levofloxacin 500 Mg Tablet) 500 mg PO DAILY@0600 [facility] Last Admin: 07/18/20 05:16 Dose: 500 mg Documented by: Lorazepam (Lorazepam 1 Mg Tablet) 1 mg PO QHS [facility] Last Admin: 07/17/20 21:12 Dose: 1 mg Documented by: Melatonin (Melatonin 3 Mg Tablet) 6 mg PO QHS [facility] Last Admin: 07/17/20 21:14 Dose: 6 mg Documented by: Multivitamins (Multivitamins,Therapeutic Tablet) 1 tablet PO DAILYCM [facility] Last Admin: 07/17/20 07:58 Dose: 1 tablet Documented by: Nicotine (Nicotine 14 Mg Patch) 14 mg TD DAILY [facility] Last Admin: 07/17/20 17:04 Dose: 14 mg Documented by: Ondansetron HCl (Ondansetron 4 Mg/2 Ml Vial) 4 mg IV Q8H PRN PRN PRN Reason: NAUSEA/VOMITING Oxycodone HCl (Oxycodone 5 Mg Tablet) 5 mg PO Q4H PRN PRN Reason: Pain Score 4-5 Oxycodone HCl (Oxycodone 5 Mg Tablet) 10 mg PO Q4H PRN PRN PRN Reason: Pain Score 6-10 Last Admin: 07/17/20 22:11 Dose: 10 mg Documented by: Polyethylene Glycol (Polyethylene Glycol 3350 17 Gm Packet) 17 gm PO DAILY [facility] Last Admin: 07/17/20 08:01 Dose: 17 gm Documented by: Senna (Senna Tablet) 1 tablet PO BID [facility] Last Admin: 07/17/20 21:14 Dose: 1 tablet Documented by: Sertraline HCl (Sertraline 50 Mg Tablet) 150 mg PO QHS [facility] Last Admin: 07/17/20 21:13 Dose: 150 mg Documented by: Sodium Chloride (0.9% Saline Lock 10 Ml Syringe) 10 - 40 ml IV UD PRN PRN Reason: SALINE FLUSH Last Admin: 07/17/20 17:11 Dose: 10 ml Documented by: Sodium Hypochlorite (Dakin's Roxie Half Strength (=0.25%)) 1 applic TOPICAL DAILY [facility]; Protocol Last Admin: 07/17/20 10:57 Dose: 1 applicatio Documented by: STROKE Vital Signs/Narrative: Vital Signs Temp Pulse Resp BP Pulse Ox 07/18/20 03:30 98.9 F 64 18 100/64 93 Medical Necessity - Tobacco Use Smoking Status: Current every day smoker Tobacco Use: Cigarettes Assessment/Plan All Active Problems (Last Reviewed 07/15/20 @ 19:[address] Lisa Ridley, DO) Abrasion of multiple sites of upper extremity and shoulder (Acute) Abrasion of multiple sites of lower extremity (Acute) Hematoma of right lower extremity (Acute) Abscess of right lower extremity (Acute) Leg wound, right (Acute) Wrist fracture, bilateral (Acute) Patient is a 60-year-old lady with multiple comorbidities admitted with right lower extremity necrotic wound. Admitted to regular nursing floor with consultation placed to plastic surgery. 1.Traumatic infected necrotic hematoma abscess right anterior leg. -Status post incision and drainage and evacuation and excisional debridement traumatic infected necrotic hematoma abscess including overlying compromised skin with necrosis on 07/16/[address] Moya. Patient wound culture so far positive for multidrug-resistant organisms (Acinetobacter and gram-negative rods. Patient is on Zosyn and Vanco tobramycin added to therapy consult placed to infectious disease 2. Physical deconditioning with multiple falls - Requested for PT OT eval and psychiatric social worker supervisor to assist with discharge planning 3. Bilateral wrist fractures ?Patient in splints 4. Glioblastoma multiforme -status post craniectomy and chemoradiation on long-term dexamethasone and Keppra. 5. GERD ?Patient is on H2 blockers 6. Anemia - Secondary to chronic disorder monitoring H&H and transfuse if patient becomes symptomatic or hemoglobin falls below 7 7. Vitamin D deficiency ?Patient is on calcium as well as cholecalciferol 8. Depression with anxiety ?Patient is on SSRI 9. DVT prophylaxis ?Enoxaparin Inpatient E&M: 54012 Subs Hosp L2
[2020-07-18] MEDS: Calcium Carbonate 500 MG Tablet 1000 MG PO ×2 (10:24→16:59)
[2020-07-18] MEDS: dexAMETHasone 2 MG TABLET 3 MG PO (10:24)
[2020-07-18] MEDS: Famotidine 20 MG Tablet PO ×2 (10:25→22:09)
[2020-07-18] MEDS: Multivitamins,Therapeutic Tablet 1 TABLET PO (10:28)
[2020-07-18] MEDS: levETIRAcetam 250 MG Tablet 750 MG PO ×2 (10:28→22:09)
[2020-07-18] MEDS: Acetaminophen 500 MG Tablet 1000 MG PO (12:20)
[2020-07-18] MEDS: Senna Tablet 1 TABLET PO ×2 (12:20→22:09)
[2020-07-18] MEDS: Polyethylene Glycol 3350 17 GM PACKET PO (12:20)
[2020-07-18] MEDS: Menthol/Lanolin/Calamine/Znox 113 GM Tube 1 APPLIC TOPICAL ×2 (12:21→22:13)
[2020-07-18] MEDS: Enoxaparin 30 MG/0.3 ML Syringe SC ×2 (12:21→22:07)
[2020-07-18] MEDS: DAKIN'S SOL HALF STRENGTH (=0.25%) 1 APPLIC TOPICAL (16:59)
--- NOTE | 2020-07-18 19:09 | PCM.PN.SRG ---
Patient Problems: Active and Suspected Problems (Last Reviewed 07/15/20 @ 19:[address] Lisa Ridley DO) Leg wound, right (Acute) Wrist fracture, bilateral (Acute) Subjective: Postop #2 Patient is resting comfortably. Tolerated the Dakin's dressing change. - Physical Exam Vitals/I&O's: Vital Signs Temp Pulse Resp BP Pulse Ox 98.2 F 73 16 93/65 94 07/18/20 17:00 07/18/20 17:00 07/18/20 17:00 07/18/20 17:00 07/18/20 17:00 Oxygen Flow Rate (L/min) 2 Oxygen Delivery Method Room Air Weight: 187 lb 11.19 oz Body Mass Index (BMI) 30.2 Intake and Output for Last 24 Hours 07/16/20 07/17/20 07/18/20 23:59 23:59 23:59 Intake Total 2711.33 / 2951.33 2444.83 / 2444.83 2534.26 / 2534.26 Output Total 500 / 800 1100 / 1100 Balance 2211.33 / 2151.33 1344.83 / 1344.83 2534.26 / 2534.26 General: Alert, Oriented x3 HEENT: PERRLA, EOMI Oral: Moist Mucosa Neck: Supple Abdomen: Soft, Non-Distended Skin: Ulcer/ Wound - right leg wounds are stable. No active bleeding noted. Wounds redressed with Dakin's dressing change. She tolerated it well. Neurological: Cranial nerves II-XII grossly intact Psych/Mental Status: Normal Affect Microbiology Past 72 Hours 07/16/20 12:00 Tissue - Leg, Right Gram Stain - Final 07/16/20 12:00 Tissue - Leg, Right Wound Culture - Preliminary Acinetobacter baumannii GNR lactose show host 07/16/20 12:00 Tissue - Leg, Right Anaerobic Culture - Preliminary Checking for anaerobes, further studies to follow. 07/15/20 17:15 Mucosa - Nose SARS-CoV-2 Antigen (Rapid) - Final Laboratory Results 07/18/20 03:40: WBC 7.0, RBC 2.56 L, Hgb 8.3 L, Hct 26.0 L, MCV 101.6 H, MCH 32.4 H, MCHC 31.9 L, RDW Std Deviation 53.0 H, RDW Coeff of Marylu 14.1, Plt Count 186, MPV 9.5, Immature Gran % (Auto) 2.400 H, Neut % (Auto) 77.7 H, Lymph % (Auto) 9.1 L, Long % (Auto) 9.3, Eos % (Auto) 0.9, Baso % (Auto) 0.6, Absolute Neuts (auto) 5.5, Absolute Lymphs (auto) 0.64 L, Nucleated RBC % 0 07/18/20 03:40: Sodium 137, Potassium 3.8, Chloride 105, Carbon Dioxide 27.0, Anion Gap 5, BUN 13, Creatinine 0.69, Estim Creat Clear Calc 79.14, Est GFR (MDRD) Af Amer 110, Est GFR (MDRD) Non-Af 91, BUN/Creatinine Ratio 18.8, Glucose 93, Calcium 8.4 L 07/18/20 18:00: S.aureus Protein A PCR Pending, MRSA (PCR) Pending Current Medications Acetaminophen (Acetaminophen 500 Mg Tablet) 1,000 mg PO BID PRN PRN Reason: Pain Score 1-10 Last Admin: 07/18/20 12:20 Dose: 1,000 mg Documented by: Al Hydroxide/Mg Hydroxide (Mag Hydrox/Al Hydrox/Simeth 30 Ml Udc) 30 ml PO Q6H PRN PRN PRN Reason: Gastric Burning Albuterol Sulfate (Albuterol 2.5 Mg/3 Ml Vial.Neb.) 2.5 mg INHALATION Q2H PRN PRN PRN Reason: Shortness of Breath/Wheezing Calamine/Phenol (Menthol/Lanolin/Calamine/Znox 113 Gm Tube) 1 applic TOPICAL BID [facility]; Protocol Last Admin: 07/18/20 12:21 Dose: 1 applicatio Documented by: Calcium Carbonate ([facility]) [facility] Last Admin: 07/18/20 16:59 Dose: 1,000 mg Documented by: Cholecalciferol (Cholecalciferol (Vit D3) 1,000 Unit (25mcg)) 2,000 unit PO DAILY [facility] Last Admin: 07/18/20 10:29 Dose: 2,000 unit Documented by: Dexamethasone (Dex[facility] 2 Mg Tablet) [facility] Last Admin: 07/18/20 10:24 Dose: 3 mg Documented by: Docusate Sodium (Docusate Sodium 100 Mg Capsule) 100 mg PO BID PRN PRN PRN Reason: Constipation Last Admin: 07/17/20 08:02 Dose: 100 mg Documented by: Enoxaparin Sodium (Enoxaparin 30 Mg/0.3 Ml Syringe) 30 mg SC BID [facility] Stop: 07/30/20 22:01 Last Admin: 07/18/20 12:21 Dose: 30 mg Documented by: Famotidine (Famotidine 20 Mg Tablet) 20 mg PO BID [facility] Last Admin: 07/18/20 10:25 Dose: 20 mg Documented by: Hydromorphone HCl (Hydromorphone 1 Mg/Ml Syringe) 0.5 mg IV Q4H PRN PRN PRN Reason: BREAKTHROUGH PAIN (>4/10) Last Admin: 07/18/20 17:36 Dose: 0.5 mg Documented by: Vancomycin IV Pharmacy to Dose (1 ea/ Sodium Chloride) 500 mls @ 250 mls/hr IV X1 PRN; Protocol PRN Reason: Rx to Dose Vancomycin HCl (Vancomycin) 1,000 mg in 200 mls @ 200 mls/hr IV Q12H [facility] Last Infusion: 07/18/20 19:01 Dose: Infused Documented by: Sodium Chloride () 250 mls @ 15 mls/hr IV .[id number] PRN PRN Reason: Additional IVPB Infusion Last Infusion: 07/18/20 18:33 Dose: 15 mls/hr Documented by: Sodium Chloride () 1,000 mls @ 70 mls/hr IV .[id number] [facility] Last Infusion: 07/18/20 19:01 Dose: 70 mls/hr Documented by: Piperacillin Sod/Tazobactam (Sod 3.375 gm/ Sodium Chloride) 50 mls @ 12.5 mls/hr IV Q8 [facility] Last Infusion: 07/18/20 18:33 Dose: Infused Documented by: Colistimethate Sodium 150 mg/ (Sodium Chloride) 50 mls @ 100 mls/hr IV Q8 [facility] Tigecycline 50 mg/ Sodium (Chloride) 105 mls @ 105 mls/hr IV Q12 [facility] Tigecycline 100 mg/ Sodium (Chloride) 110 mls @ 110 mls/hr IV X1 ONE Stop: 07/19/20 12:59 Levetiracetam (Levetiracetam 250 Mg Tablet) 750 mg PO BID [facility] Last Admin: 07/18/20 10:28 Dose: 750 mg Documented by: Lorazepam (Lorazepam 1 Mg Tablet) 1 mg PO QHS [facility] Last Admin: 07/17/20 21:12 Dose: 1 mg Documented by: Melatonin (Melatonin 3 Mg Tablet) 6 mg PO QHS [facility] Last Admin: 07/17/20 21:14 Dose: 6 mg Documented by: Multivitamins (Multivitamins,Therapeutic Tablet) [facility] Last Admin: 07/18/20 10:28 Dose: 1 tablet Documented by: Nicotine (Nicotine 14 Mg Patch) 14 mg TD DAILY [facility] Last Admin: 07/18/20 10:30 Dose: 14 mg Documented by: Ondansetron HCl (Ondansetron 4 Mg/2 Ml Vial) 4 mg IV Q8H PRN PRN PRN Reason: NAUSEA/VOMITING Oxycodone HCl (Oxycodone 5 Mg Tablet) 5 mg PO Q4H PRN PRN Reason: Pain Score 4-5 Oxycodone HCl (Oxycodone 5 Mg Tablet) 10 mg PO Q4H PRN PRN PRN Reason: Pain Score 6-10 Last Admin: 07/17/20 22:11 Dose: 10 mg Documented by: Polyethylene Glycol (Polyethylene Glycol 3350 17 Gm Packet) 17 gm PO DAILY [facility] Last Admin: 07/18/20 12:20 Dose: 17 gm Documented by: Senna (Senna Tablet) 1 tablet PO BID [facility] Last Admin: 07/18/20 12:20 Dose: 1 tablet Documented by: Sertraline HCl (Sertraline 50 Mg Tablet) 150 mg PO QHS [facility] Last Admin: 07/17/20 21:13 Dose: 150 mg Documented by: Sodium Chloride (0.9% Saline Lock 10 Ml Syringe) 10 - 40 ml IV UD PRN PRN Reason: SALINE FLUSH Last Admin: 07/17/20 17:11 Dose: 10 ml Documented by: Sodium Hypochlorite (Dakin's Roxie Half Strength (=0.25%)) 1 applic TOPICAL DAILY [facility]; Protocol Last Admin: 07/18/20 16:59 Dose: 1 applicatio Documented by: Medical Necessity - Tobacco Use Smoking Status: Current every day smoker Tobacco Use: Cigarettes Assessment/Plan All Active Problems (Last Reviewed 07/15/20 @ 19:[address] Lisa Ridley, DO) Acute postoperative anemia due to expected blood loss (Acute) Open wound of right lower extremity with complication (Acute) Abrasion of multiple sites of upper extremity and shoulder (Acute) Abrasion of multiple sites of lower extremity (Acute) Hematoma of right lower extremity (Acute) Abscess of right lower extremity (Acute) Leg wound, right (Acute) Wrist fracture, bilateral (Acute) 1. Traumatic infected necrotic hematoma abscess right anterior leg. 2. Chronic falls at home. 3. Smoker. 4. Glioblastoma multiforme status post craniectomy and chemoradiation on long-term dexamethasone and Keppra. 5. Multiple skin tears upper and lower extremities from her recent fall. 6. Recent bilateral wrist fractures, splinted. 7. Acute postoperative anemia from expected blood loss. Wounds are stable. No active bleeding. Redressed with Dakin's dressing changes. Operative cultures show Acinetobacter baumannii and Gram negative kristopher lactose show host. Tigecycline and Colistimethate added to Vancomycin and Zosyn. Prealbumin was 13.9. Encourage nutritional supplementation with protein to help the healing process. With the complexity of her wounds and the need for IV antibiotics, she will need to go to an ECF at discharge until the wounds have stabilized. After discharge from the ECF, she will [facility]. If a plateau develops during the healing process, will proceed with delayed closure with skin grafting. Encouraged patient to stop smoking as it may have deleterious effects on wound healing. Patient's Hgb was 8.3. It was 8.8 yesterday and 10.5 the day of surgery. She has anemia of chronic disease, acute on chronic, from expected blood loss. She had operative blood loss of 100 ml. She also has IV dilution. Her I's/O's are positive 4 liters. Will start Iron supplementation. Will recheck the Hgb tomorrow.
--- NOTE | 2020-07-18 20:06 | NURSING ---
Covid 19 emergency charting in effect
[2020-07-18 20:33] LABS: M R Staph aureus DNA By PCR Negative (Negative); Probe Check PASS; Specimen Processing Control PASS; Staph aureus DNA By PCR NEGATIVE (Negative)
--- NOTE | 2020-07-18 20:50 | RAD_ITS ---
STUDY: X-RAY - LEFT WRIST REASON FOR EXAM: Female, 60 years old. post op TECHNIQUE: 3 view(s) of the wrist were obtained. COMPARISON: None. FINDINGS: Cast obscures bone detail. Continued shortening of the distal radial fracture. Mild lateral displacement. Continued dorsal angulation of the distal fracture fragment. No dislocations. IMPRESSION: Limited by cast. Continued impaction and dorsal angulation of the distal radial fracture fragment. Electronically Signed: Mikael Baeza MD at 21:22 EST , Service support , RAD/Wrist min 3 Views
--- NOTE | 2020-07-18 20:50 | RAD_ITS ---
STUDY: X-RAY - RIGHT WRIST REASON FOR EXAM: Female, 60 years old. post op TECHNIQUE: 3 view(s) of the wrist were obtained. COMPARISON: 07/04/2020. FINDINGS: Cast obscures bone detail. Continued shortening of the distal radial fracture. Continued dorsal angulation of the distal fracture fragment. No dislocations. IMPRESSION: Limited by cast. Continued impaction and dorsal angulation of the distal radial fracture fragment. Electronically Signed: Mikael Baeza MD at 21:20 EST , Service support , RAD/Wrist min 3 Views
[2020-07-18] MEDS: LORazepam 1 MG Tablet PO (22:08)
[2020-07-18] MEDS: oxyCODONE 5 MG Tablet 10 MG PO (22:08)
[2020-07-18] MEDS: Sertraline 50 MG Tablet 150 MG PO (22:09)
[2020-07-18] MEDS: MELATONIN 3 MG TABLET 6 MG PO (22:09)
[2020-07-19 03:29] VITALS: BP 103/67; PULSE 82; RESP 16; TEMP 36.9; O2SAT 94
[2020-07-19 06:32] LABS: Hematocrit 26.7 % (37-47); Hemoglobin 8.4 g/dL (12.0-15.0); Mean Corp Hgb Conc 31.5 g/dL (32-36); Mean Corpuscular Hgb 31.7 pg (27.0-32.0); Mean Corpuscular Volume 100.8 fL (81-99); Mean Platelet Vol. 9.6 fl (6.2-12.0); Platelet Count 198 K/mm3 (150-450); RBC Distribution Width SD 51.4 fl (35.1-43.9); Red Blood Count 2.65 M/mm3 (4.2-5.4); White Blood Count 7.1 K/mm3 (4.4-11.0)
[2020-07-19] MEDS: Vancomycin IV 1,000 MG/200 ML BAG 200 MG IV (06:32)
[2020-07-19 06:58] LABS: Vancomycin, Trough Level 12.3 ug/mL (5.0-15.0)
[2020-07-19 07:09] LABS: Anion Gap 5 (5-15); BUN 10 mg/dL (7-18); BUN/Creat Ratio 15.4 RATIO (10-20); Calcium,Total 8.6 mg/dL (8.5-10.1); Chloride 103 mmol/L (98-107); Creatinine, Serum 0.65 mg/dL (0.55-1.02); EST Glomerular Filtration Rate 98 mL/min (>60); Est Glom Filt Rate - Afr Amer 119 mL/min (>60); Estimated Creatinine Clearance 84.01 ml/min; Glucose 94 mg/dL (74-106); Magnesium 1.8 mg/dL (1.6-2.6); Potassium 3.8 mmol/L (3.5-5.1); Sodium Level 137 mmol/L (136-145)
--- NOTE | 2020-07-19 07:19 | PCM.RX.CS ---
Consult Pharmacy has been consulted to manage selected antiobiotic: Vancomycin Type of Consult: Follow-up Suspected Infection: Skin/Soft tissue Prior Doses of Antibiotics Received/Current Regimen: currently on 1000mg IV q12h Labs: Sodium 137 mmol/L (136-145) 07/19/20 06:10 Potassium 3.8 mmol/L (3.5-5.1) 07/19/20 06:10 Chloride 103 mmol/L (98-107) 07/19/20 06:10 Carbon Dioxide 29.0 mmol/L (21.0-32.0) 07/19/20 06:10 Anion Gap 5 (5-15) 07/19/20 06:10 BUN 10 mg/dL (7-18) 07/19/20 06:10 Creatinine 0.65 mg/dL (0.55-1.02) 07/19/20 06:10 Est GFR (MDRD) Af Amer 119 mL/min (>60) 07/19/20 06:10 Est GFR (MDRD) Non-Af 98 mL/min (>60) 07/19/20 06:10 BUN/Creatinine Ratio 15.4 RATIO (10-20) 07/19/20 06:10 Glucose 94 mg/dL (74-106) 07/19/20 06:10 Random Tobramycin 0.50 ug/mL 07/19/20 03:40 Vancomycin Trough 12.3 ug/mL (5.0-15.0) 07/19/20 06:10 Microbiology: Microbiology 07/16/20 12:00 Tissue - Leg, Right Gram Stain - Final 07/16/20 12:00 Tissue - Leg, Right Wound Culture - Preliminary Acinetobacter baumannii Klebsiella oxytoca 07/16/20 12:00 Tissue - Leg, Right Anaerobic Culture - Preliminary Checking for anaerobes, further studies to follow. 07/15/20 17:15 Mucosa - Nose SARS-CoV-2 Antigen (Rapid) - Final Weight used for dosin.1 kg Estimated Creatinine Clearance: 84ml/min Goal Trough: 10-15 mcg/mL Pharmacy Plan for Drug Dosing: Trough drawn this morning was 12.3. This is within goal range of 10-15 so will continue same dosing. Repeat trough again in 4 days. Pharmacy Service will continue to monitor and adjust dosing as required. Follow-Up Labs: Trough Vancomycin Labs to be done on [date and time ordered]: 07/23/20 0600
--- NOTE | 2020-07-19 07:50 | PN_ITS ---
Patient Problems: Active and Suspected Problems (Last Reviewed 07/15/20 @ 19:[address] Lisa Ridley, DO) Leg wound, right (Acute) Wrist fracture, bilateral (Acute) Reason for Visit: Right lower extremity necrotic wound Subjective: 07/19/2020; antibiotic therapy discussed with Dr. Funez with infectious disease plan is to discontinue previous antibiotics and patient started on colistin and Tygacil Objective: GENERAL: cooperative HEENT: Atraumatic; EYES; Anicteric, Normal Conjunctiva NECK; supple, normal thyroid, RESPIRATORY: Diminished to auscultation CARDIOVASCULAR: Regular S1 S2, GI: soft, normoactive bowel sounds, : No Renal angle tenderness; EXTREMITIES: Right lower extremity in surgical dressing MUSCULOSKELETAL: no muscle waisting NEURO: Awake; no lateralizing signs. SKIN: Multiple areas of ecchymosis on both upper and lower extremities PSYCH; Flat affect Vitals/I&O's: Vital Signs Temp Pulse Resp BP Pulse Ox 98.5 F 82 16 103/67 94 07/19/20 03:29 07/19/20 03:29 07/19/20 03:29 07/19/20 03:29 07/19/20 03:29 Oxygen Flow Rate (L/min) 2 Oxygen Delivery Method Room Air Weight: 85.139 kg Body Mass Index (BMI) 30.2 Intake and Output for Last 24 Hours 07/17/20 07/18/20 07/19/20 23:59 23:59 23:59 Intake Total 2444.83 / 2444.83 2751.26 / 2751.26 350 / 350 Output Total 1100 / 1100 875 / 875 Balance 1344.83 / 1344.83 2751.26 / 2751.26 -525 / -525 Microbiology Past 72 Hours 07/16/20 12:00 Tissue - Leg, Right Gram Stain - Final 07/16/20 12:00 Tissue - Leg, Right Wound Culture - Preliminary Acinetobacter baumannii Klebsiella oxytoca 07/16/20 12:00 Tissue - Leg, Right Anaerobic Culture - Preliminary Checking for anaerobes, further studies to follow. Laboratory Results 07/18/20 18:00: S.aureus Protein A PCR NEGATIVE, MRSA (PCR) Negative 07/19/20 03:40: Random Tobramycin 0.50 07/19/20 06:10: Vancomycin Trough 12.3 07/19/20 06:10: WBC 7.1, RBC 2.65 L, Hgb 8.4 L, Hct 26.7 L, MCV 100.8 H, MCH 31.7, MCHC 31.5 L, RDW Std Deviation 51.4 H, RDW Coeff of Marylu 14.0, Plt Count 198, MPV 9.6 07/19/20 06:10: Sodium 137, Potassium 3.8, Chloride 103, Carbon Dioxide 29.0, Anion Gap 5, BUN 10, Creatinine 0.65, Estim Creat Clear Calc 84.01, Est GFR (MDRD) Af Amer 119, Est GFR (MDRD) Non-Af 98, BUN/Creatinine Ratio 15.4, Glucose 94, Calcium 8.6, Magnesium 1.8 Current Medications Acetaminophen (Acetaminophen 500 Mg Tablet) 1,000 mg PO BID PRN PRN Reason: Pain Score 1-10 Last Admin: 07/18/20 12:20 Dose: 1,000 mg Documented by: Al Hydroxide/Mg Hydroxide (Mag Hydrox/Al Hydrox/Simeth 30 Ml Udc) 30 ml PO Q6H PRN PRN PRN Reason: Gastric Burning Albuterol Sulfate (Albuterol 2.5 Mg/3 Ml Vial.Neb.) 2.5 mg INHALATION Q2H PRN PRN PRN Reason: Shortness of Breath/Wheezing Calamine/Phenol (Menthol/Lanolin/Calamine/Znox 113 Gm Tube) 1 applic TOPICAL BID [facility]; Protocol Last Admin: 07/18/20 22:13 Dose: 1 applicatio Documented by: Calcium Carbonate (Calcium Carbonate 500 Mg Tablet) [facility] Last Admin: 07/18/20 16:59 Dose: 1,000 mg Documented by: Cholecalciferol (Cholecalciferol (Vit D3) 1,000 Unit (25mcg)) 2,000 unit PO DAILY [facility] Last Admin: 07/18/20 10:29 Dose: 2,000 unit Documented by: Dexamethasone (Dexamethasone 2 Mg Tablet) [facility] Last Admin: 07/18/20 10:24 Dose: 3 mg Documented by: Docusate Sodium (Docusate Sodium 100 Mg Capsule) 100 mg PO BID PRN PRN PRN Reason: Constipation Last Admin: 07/17/20 08:02 Dose: 100 mg Documented by: Enoxaparin Sodium (Enoxaparin 30 Mg/0.3 Ml Syringe) 30 mg SC BID [facility] Stop: 07/30/20 22:01 Last Admin: 07/18/20 22:07 Dose: 30 mg Documented by: Famotidine (Famotidine 20 Mg Tablet) 20 mg PO BID [facility] Last Admin: 07/18/20 22:09 Dose: 20 mg Documented by: Hydromorphone HCl (Hydromorphone 1 Mg/Ml Syringe) 0.5 mg IV Q4H PRN PRN PRN Reason: BREAKTHROUGH PAIN (>4/10) Last Admin: 07/18/20 17:36 Dose: 0.5 mg Documented by: Vancomycin IV Pharmacy to Dose (1 ea/ Sodium Chloride) 500 mls @ 250 mls/hr IV X1 PRN; Protocol PRN Reason: Rx to Dose Vancomycin HCl (Vancomycin) 1,000 mg in 200 mls @ 200 mls/hr IV Q12H [facility] Last Admin: 07/19/20 06:32 Dose: 200 mls/hr Documented by: Sodium Chloride () 250 mls @ 15 mls/hr IV .[id number] PRN PRN Reason: Additional IVPB Infusion Last Infusion: 07/18/20 18:33 Dose: 15 mls/hr Documented by: Sodium Chloride () 1,000 mls @ 70 mls/hr IV .[id number] [facility] Last Admin: 07/18/20 22:07 Dose: 70 mls/hr Documented by: Piperacillin Sod/Tazobactam (Sod 3.375 gm/ Sodium Chloride) 50 mls @ 12.5 mls/hr IV Q8 [facility] Last Admin: 07/19/20 06:09 Dose: 12.5 mls/hr Documented by: Colistimethate Sodium 150 mg/ (Sodium Chloride) 50 mls @ 100 mls/hr IV Q8 [facility] Tigecycline 50 mg/ Sodium (Chloride) 105 mls @ 105 mls/hr IV Q12 [facility] Tigecycline 100 mg/ Sodium (Chloride) 110 mls @ 110 mls/hr IV X1 ONE Stop: 07/19/20 12:59 Tobramycin Sulfate 420 mg/ (Dextrose) 60.5 mls @ 100 mls/hr IV Q24H [facility] Levetiracetam (Levetiracetam 250 Mg Tablet) 750 mg PO BID [facility] Last Admin: 07/18/20 22:09 Dose: 750 mg Documented by: Lorazepam (Lorazepam 1 Mg Tablet) 1 mg PO QHS [facility] Last Admin: 07/18/20 22:08 Dose: 1 mg Documented by: Melatonin (Melatonin 3 Mg Tablet) 6 mg PO QHS [facility] Last Admin: 07/18/20 22:09 Dose: 6 mg Documented by: Multivitamins (Multivitamins,Therapeutic Tablet) [facility] Last Admin: 07/18/20 10:28 Dose: 1 tablet Documented by: Nicotine (Nicotine 14 Mg Patch) 14 mg TD DAILY [facility] Last Admin: 07/18/20 10:30 Dose: 14 mg Documented by: Ondansetron HCl (Ondansetron 4 Mg/2 Ml Vial) 4 mg IV Q8H PRN PRN PRN Reason: NAUSEA/VOMITING Oxycodone HCl (Oxycodone 5 Mg Tablet) 5 mg PO Q4H PRN PRN Reason: Pain Score 4-5 Oxycodone HCl (Oxycodone 5 Mg Tablet) 10 mg PO Q4H PRN PRN PRN Reason: Pain Score 6-10 Last Admin: 07/18/20 22:08 Dose: 10 mg Documented by: Polyethylene Glycol (Polyethylene Glycol 3350 17 Gm Packet) 17 gm PO DAILY [facility] Last Admin: 07/18/20 12:20 Dose: 17 gm Documented by: Polysaccharide Iron Complex (Iron Polysaccharide Complex 150 Mg Capsule) [facility] Senna (Senna Tablet) 1 tablet PO BID [facility] Last Admin: 07/18/20 22:09 Dose: 1 tablet Documented by: Sertraline HCl (Sertraline 50 Mg Tablet) 150 mg PO QHS [facility] Last Admin: 07/18/20 22:09 Dose: 150 mg Documented by: Sodium Chloride (0.9% Saline Lock 10 Ml Syringe) 10 - 40 ml IV UD PRN PRN Reason: SALINE FLUSH Last Admin: 07/17/20 17:11 Dose: 10 ml Documented by: Sodium Hypochlorite (Dakin's Roxie Half Strength (=0.25%)) 1 applic TOPICAL DAILY [facility]; Protocol Last Admin: 07/18/20 16:59 Dose: 1 applicatio Documented by: Medical Necessity - Tobacco Use Smoking Status: Current every day smoker Tobacco Use: Cigarettes Assessment/Plan All Active Problems (Last Reviewed 07/15/20 @ 19:[address] Lisa Ridley, DO) Acute postoperative anemia due to expected blood loss (Acute) Open wound of right lower extremity with complication (Acute) Abrasion of multiple sites of upper extremity and shoulder (Acute) Abrasion of multiple sites of lower extremity (Acute) Hematoma of right lower extremity (Acute) Abscess of right lower extremity (Acute) Leg wound, right (Acute) Wrist fracture, bilateral (Acute) Patient is a 60-year-old lady with multiple comorbidities admitted with right lower extremity necrotic wound. Admitted to regular nursing floor with consultation placed to plastic surgery. 1. Traumatic infected necrotic hematoma abscess right anterior leg. -Status post incision and drainage and evacuation and excisional debridement traumatic infected necrotic hematoma abscess including overlying compromised skin with necrosis on 07/16/[address] Moya. Patient wound culture so far positive for multidrug-resistant organisms (Acinetobacter and gram-negative rods. Patient is on Zosyn and Vanco tobramycin added to therapy consult placed to infectious disease -07/19/2020; Microbiology 07/16/20 12:00 Gram Stain - Final Tissue - Leg, Right Wound Culture - Preliminary Acinetobacter baumannii Klebsiella oxytoca Anaerobic Culture - Preliminary Checking for anaerobes, further studies to follow. Antibiotic therapy discussed with Dr. Funez with infectious disease plan is to discontinue previous antibiotics and patient started on colistin and Tygacil 2. Physical deconditioning with multiple falls - Requested for PT OT eval and social work case manager to assist with discharge planning 3. Bilateral wrist fractures ?Patient in splints -07/19/2020 orthopedic consult requested by family placed 4. Glioblastoma multiforme -status post craniectomy and chemoradiation on long-term dexamethasone and Keppra. 5. GERD ?Patient is on H2 blockers 6. Anemia - Secondary to chronic disorder monitoring H&H and transfuse if patient becomes symptomatic or hemoglobin falls below 7 7. Vitamin D deficiency ?Patient is on calcium as well as cholecalciferol 8. Depression with anxiety ?Patient is on SSRI 9. DVT prophylaxis ?Enoxaparin Inpatient E&M: [id number] [facility]
[2020-07-19 09:24] VITALS: BP 107/56; PULSE 77; RESP 18; TEMP 37.3; O2SAT 93
[2020-07-19] MEDS: oxyCODONE 5 MG Tablet 10 MG PO (09:29)
[2020-07-19] MEDS: dexAMETHasone 2 MG TABLET 3 MG PO (09:33)
[2020-07-19] MEDS: Multivitamins,Therapeutic Tablet 1 TABLET PO (09:35)
[2020-07-19] MEDS: levETIRAcetam 250 MG Tablet 750 MG PO ×2 (09:36→22:54)
[2020-07-19] MEDS: Calcium Carbonate 500 MG Tablet 1000 MG PO ×2 (09:40→17:02)
[2020-07-19] MEDS: Iron Polysaccharide Complex 150 MG CAPSULE PO (09:41)
[2020-07-19] MEDS: DAKIN'S SOL HALF STRENGTH (=0.25%) 1 APPLIC TOPICAL (09:42)
[2020-07-19] MEDS: Menthol/Lanolin/Calamine/Znox 113 GM Tube 1 APPLIC TOPICAL ×2 (09:42→22:50)
[2020-07-19] MEDS: Enoxaparin 30 MG/0.3 ML Syringe SC ×2 (09:43→22:51)
[2020-07-19] MEDS: Polyethylene Glycol 3350 17 GM PACKET PO (09:43)
[2020-07-19] MEDS: Famotidine 20 MG Tablet PO ×2 (09:46→22:52)
[2020-07-19] MEDS: Senna Tablet 1 TABLET PO ×2 (09:46→22:52)
--- NOTE | 2020-07-19 11:10 | PCM.CONS.GEN ---
Reason for Consult Date of Consultation: 07/19/20 Reason for Consultation: bilateral wrist fractures. requested by dr smith History of Present Illness: The patient is a 60 year old F with history of glioblastoma and chronic mental status changes presents today with bilateral wrist pain. Patient fell on July 04. She was initially transferred to [facility] where close reductions were performed. Patient's history is somewhat unreliable so I did speak with her daughter. By report she had closed reductions from the emergency room physician. There was initial plan for open reduction internal fixation at least for the right wrist. However based on the swelling and associated skin tears they elected to allow soft tissues to rest. The plan was for maintaining the splints and doing regular dressing changes. Splints have not been well maintained through that time and are loose fitting at this time. I was consulted today to review the case and determine appropriate treatment plan at this time. Patient notes that she does have caregivers that help take care of her each day. She reports that she does take care of certain ADLs such as dressing her own self and bathing but does rely on others to help with tasks around the home. Patient's daughter also notes that she has limited understanding and is often noncompliant based on her limited understanding. Patient denies any associated numbness and tingling. Pain is worse with motion better with immobilization. She has recently been admitted for infected hematoma on her lower extremity and is currently on antibiotics for this she is also had recent debridements and plans for further debridements from plastic surgery. Past Medical History Past Medical History (Chronic Problems): Chronic Problems (Last Reviewed 07/15/20 @ 19:[address] Lisa Ridley, DO) Falls (Chronic) Confusion (Chronic) Ulcer of left lower extremity with fat layer exposed (Chronic) Status post skin graft (Chronic) Venous insufficiency of both lower extremities (Chronic) Frequent falls (Chronic) Glioblastoma (Chronic) GERD (gastroesophageal reflux disease) (Chronic) Seizure disorder (Chronic) Hypertension (Chronic) Anxiety (Chronic) Chronic pain (Chronic) Neuropathic pain (Chronic) Other complications of skin graft (allograft) (autograft) (Chronic) Failed skin graft (Chronic) Complication of skin graft (Chronic) Glioblastoma multiforme (Chronic) Ulcers of both lower legs (Chronic) multiple infected ulcers bilateral legs L97.919 Wound, open, lower limb with complication (Chronic) Medical History: Medical History (Last Reviewed 07/15/20 @ 19:[address] Lisa Ridley, DO) Other complications of skin graft (allograft) (autograft) (Chronic) T86.828 Failed skin graft (Chronic) T86.821 Ulcers of both lower legs (Chronic) L97.919, L97.929 multiple infected ulcers bilateral legs L97.919 Allergies adhesive tape Adverse Reaction (Verified 04/02/20 15:11) VERY THIN STEROID SKIN WILL REMOVE SKIN IF ON TOO LONG bee Allergy (Uncoded 04/02/20 15:11) Hives Home Medications: Ambulatory Orders Medication Instructions Recorded Dexamethasone 3 mg PO DAILY 03/02/17 Melatonin 6 mg PO QHS 01/03/20 Senna [Senokot] 1 tab PO BID 01/03/20 Sertraline HCl [Zoloft] 150 mg PO QHS 01/03/20 Acetaminophen [Tylenol Extra 1,000 mg PO BID PRN 01/08/20 Strength] Famotidine 20 mg PO BID 01/08/20 Levetiracetam [Keppra] 750 mg PO BID 01/08/20 Multivitamins,Therapeutic 1 tab PO DAILY 01/08/20 [Multivitamin] Lorazepam 1 mg PO QHS 07/04/20 Calcium Carbonate [Tums] 1,000 mg PO BIDCM 07/15/20 Cholecalciferol (VIT D3) [Vitamin 2,000 unit PO DAILY 07/15/20 D] Enoxaparin [Lovenox] 30 mg SQ BID 07/15/20 Oxycodone HCl 5 mg PO Q8H PRN PRN 07/15/20 Surgical History: dilatation and curettage, - - skin graft LLE. 01/04/20 - Surgical preparation left anterolateral leg with incision and drainage and evacuation and excisional debridement traumatic hematoma (33 cm2). Psychiatric History: No pertinent psych hx TRAUMA COORDINATOR History: No pertinent TRAUMA COORDINATOR history Lives: Alone Smoking Status: Current every day smoker Tobacco Use: Cigarettes - *Family History Maternal History Items: COPD - of COPD Paternal History Items: - - Denies known paternal medical history including cardiac history. Review of Systems Constitutional: Denies: Anorexia, Chills, Fever HEENT: Reports: Difficulty Hearing Cardiovascular: Denies: Chest Pain, Chest Tightness Respiratory: Denies: Cough Gastrointestinal: Denies: Abdominal Pain Genitourinary: Denies: Dysuria Musculoskeletal: Reports: Joint Pain, Joint Tenderness Skin: Reports: Wounds - Lower extremity. Patient has ecchymosis of bilateral upper extremities. Neurological: Reports: - - Chronic altered mental status Psychiatric: Reports: - - Altered mental status chronic Patient Problems: Active and Suspected Problems (Last Reviewed 07/15/20 @ 19:[address] Lisa Ridley, DO) Leg wound, right (Acute) Wrist fracture, bilateral (Acute) Objective: Bilateral wrist x-rays were reviewed from July 04 and also from yesterday. These show that any previous reduction has been lost. She has significantly dorsally displaced and angulated wrist fractures bilaterally. With associated shortening and loss of radial inclination. - Physical Exam Vitals/I&O's: Vital Signs Temp Pulse Resp BP Pulse Ox 99.1 F 77 18 107/56 L 93 07/19/20 09:24 07/19/20 09:24 07/19/20 09:24 07/19/20 09:24 07/19/20 09:24 Oxygen Flow Rate (L/min) 2 Oxygen Delivery Method Room Air Weight: 187 lb 11.19 oz Body Mass Index (BMI) 30.2 Intake and Output for Last 24 Hours 07/17/20 07/18/20 07/19/20 23:59 23:59 23:59 Intake Total 2444.83 / 2444.83 2751.26 / 2751.26 600 / 600 Output Total 1100 / 1100 875 / 875 Balance 1344.83 / 1344.83 2751.26 / 2751.26 -275 / -275 General: Alert, Cooperative, No apparent distress HEENT: Atraumatic Neck: No JVD Lungs: - - Nonlabored breathing Cardiovascular: - Abdomen: Non-Distended, Obese Extremities: - - Right wrist exam: Patient has splint in place. No noted ulcerations from the splint proximally and distally. Patient does have an eschar over the distal hand. Positive thumbs up, okay sign, cross his fingers. Sensations intact light touch R/M/U. Musculoskeletal: - - Left wrist: Loose fitting splint in place and proximalized. No noted ulcerations from the splint proximally and distally. Patient does have an eschar over the distal hand. Positive thumbs up, okay sign, cross his fingers. Sensations intact light touch R/M/U. Microbiology Past 72 Hours 07/16/20 12:00 Tissue - Leg, Right Gram Stain - Final 07/16/20 12:00 Tissue - Leg, Right Wound Culture - Preliminary Acinetobacter baumannii Klebsiella oxytoca 07/16/20 12:00 Tissue - Leg, Right Anaerobic Culture - Preliminary Checking for anaerobes, further studies to follow. Laboratory Results 07/18/20 18:00: S.aureus Protein A PCR NEGATIVE, MRSA (PCR) Negative 07/19/20 03:40: Random Tobramycin 0.50 07/19/20 06:10: Vancomycin Trough 12.3 07/19/20 06:10: WBC 7.1, RBC 2.65 L, Hgb 8.4 L, Hct 26.7 L, MCV 100.8 H, MCH 31.7, MCHC 31.5 L, RDW Std Deviation 51.4 H, RDW Coeff of Marylu 14.0, Plt Count 198, MPV 9.6 07/19/20 06:10: Sodium 137, Potassium 3.8, Chloride 103, Carbon Dioxide 29.0, Anion Gap 5, BUN 10, Creatinine 0.65, Estim Creat Clear Calc 84.01, Est GFR (MDRD) Af Amer 119, Est GFR (MDRD) Non-Af 98, BUN/Creatinine Ratio 15.4, Glucose 94, Calcium 8.6, Magnesium 1.8 Current Medications Acetaminophen (Acetaminophen 500 Mg Tablet) 1,000 mg PO BID PRN PRN Reason: Pain Score 1-10 Last Admin: 07/18/20 12:20 Dose: 1,000 mg Documented by: Al Hydroxide/Mg Hydroxide (Mag Hydrox/Al Hydrox/Simeth 30 Ml Udc) 30 ml PO Q6H PRN PRN PRN Reason: Gastric Burning Albuterol Sulfate (Albuterol 2.5 Mg/3 Ml Vial.Neb.) 2.5 mg INHALATION Q2H PRN PRN PRN Reason: Shortness of Breath/Wheezing Calamine/Phenol (Menthol/Lanolin/Calamine/Znox 113 Gm Tube) 1 applic TOPICAL BID [facility]; Protocol Last Admin: 07/19/20 09:42 Dose: 1 applicatio Documented by: Calcium Carbonate (Calcium Carbonate 500 Mg Tablet) [facility] Last Admin: 07/19/20 09:40 Dose: 1,000 mg Documented by: Cholecalciferol (Cholecalciferol (Vit D3) 1,000 Unit (25mcg)) 2,000 unit PO DAILY [facility] Last Admin: 07/19/20 09:47 Dose: 2,000 unit Documented by: Dexamethasone (Dexamethasone 2 Mg Tablet) [facility] Last Admin: 07/19/20 09:33 Dose: 3 mg Documented by: Docusate Sodium (Docusate Sodium 100 Mg Capsule) 100 mg PO BID PRN PRN PRN Reason: Constipation Last Admin: 07/17/20 08:02 Dose: 100 mg Documented by: Enoxaparin Sodium (Enoxaparin 30 Mg/0.3 Ml Syringe) 30 mg SC BID [facility] Stop: 07/30/20 22:01 Last Admin: 07/19/20 09:43 Dose: 30 mg Documented by: Famotidine (Famotidine 20 Mg Tablet) 20 mg PO BID [facility] Last Admin: 07/19/20 09:46 Dose: 20 mg Documented by: Hydromorphone HCl (Hydromorphone 1 Mg/Ml Syringe) 0.5 mg IV Q4H PRN PRN PRN Reason: BREAKTHROUGH PAIN (>4/10) Last Admin: 07/18/20 17:36 Dose: 0.5 mg Documented by: Sodium Chloride () 250 mls @ 15 mls/hr IV .[id number] PRN PRN Reason: Additional IVPB Infusion Last Infusion: 07/18/20 18:33 Dose: 15 mls/hr Documented by: Sodium Chloride () 1,000 mls @ 70 mls/hr IV .[id number] [facility] Last Admin: 07/18/20 22:07 Dose: 70 mls/hr Documented by: Colistimethate Sodium 150 mg/ (Sodium Chloride) 50 mls @ 100 mls/hr IV Q12 [facility] Tigecycline 50 mg/ Sodium (Chloride) 105 mls @ 105 mls/hr IV Q12 [facility] Tigecycline 100 mg/ Sodium (Chloride) 110 mls @ 110 mls/hr IV X1 ONE Stop: 07/19/20 11:59 Last Admin: 07/19/20 11:02 Dose: 110 mls/hr Documented by: Levetiracetam (Levetiracetam 250 Mg Tablet) 750 mg PO BID [facility] Last Admin: 07/19/20 09:36 Dose: 750 mg Documented by: Lorazepam (Lorazepam 1 Mg Tablet) 1 mg PO QHS [facility] Last Admin: 07/18/20 22:08 Dose: 1 mg Documented by: Melatonin (Melatonin 3 Mg Tablet) 6 mg PO QHS [facility] Last Admin: 07/18/20 22:09 Dose: 6 mg Documented by: Multivitamins (Multivitamins,Therapeutic Tablet) [facility] Last Admin: 07/19/20 09:35 Dose: 1 tablet Documented by: Nicotine (Nicotine 14 Mg Patch) 14 mg TD DAILY [facility] Last Admin: 07/19/20 09:52 Dose: 14 mg Documented by: Ondansetron HCl (Ondansetron 4 Mg/2 Ml Vial) 4 mg IV Q8H PRN PRN PRN Reason: NAUSEA/VOMITING Oxycodone HCl (Oxycodone 5 Mg Tablet) 5 mg PO Q4H PRN PRN Reason: Pain Score 4-5 Oxycodone HCl (Oxycodone 5 Mg Tablet) 10 mg PO Q4H PRN PRN PRN Reason: Pain Score 6-10 Last Admin: 07/19/20 09:29 Dose: 10 mg Documented by: Polyethylene Glycol (Polyethylene Glycol 3350 17 Gm Packet) 17 gm PO DAILY [facility] Last Admin: 07/19/20 09:43 Dose: 17 gm Documented by: Polysaccharide Iron Complex (Iron Polysaccharide Complex 150 Mg Capsule) [facility] Last Admin: 07/19/20 09:41 Dose: 150 mg Documented by: Senna (Senna Tablet) 1 tablet PO BID [facility] Last Admin: 07/19/20 09:46 Dose: 1 tablet Documented by: Sertraline HCl (Sertraline 50 Mg Tablet) [facility] Last Admin: 07/18/20 22:09 Dose: 150 mg Documented by: Sodium Chloride (0.9% Saline Lock 10 Ml Syringe) 10 - 40 ml IV UD PRN PRN Reason: SALINE FLUSH Last Admin: 07/17/20 17:11 Dose: 10 ml Documented by: Sodium Hypochlorite (Dakin's Roxie Half Strength (=0.25%)) 1 applic TOPICAL DAILY [facility]; Protocol Last Admin: 07/19/20 09:42 Dose: 1 applicatio Documented by: Assessment/Plan All Active Problems (Last Reviewed 07/15/20 @ 19:[address] Lisa Ridley, DO) Acute postoperative anemia due to expected blood loss (Acute) Open wound of right lower extremity with complication (Acute) Abrasion of multiple sites of upper extremity and shoulder (Acute) Abrasion of multiple sites of lower extremity (Acute) Hematoma of right lower extremity (Acute) Abscess of right lower extremity (Acute) Leg wound, right (Acute) Wrist fracture, bilateral (Acute) Bilateral wrist fractures 2 weeks old with loss of reduction and associated skin tears. I did not remove the splints on the floor splinting material was not available. Also with the plan to be mentioned in the following paragraph address the wounds. Patient does have altered mental status and limited ability to follow directions. She also has limited ability to care for self. This was all confirmed with her family. After I spoke with the power of title attorney I explained that based on her current infection as well as her overall functional level and health surgery was unlikely to have benefits that outweigh risks. However, patient does need the splint changed and based on this as well as underlying wounds I recommended that we proceed with repeat reduction in the operating room with examination of the wounds and dressing changes at that time. Risks and benefits of this procedure were discussed with the family including the risks of anesthesia as well as the risk of further skin tears or complications with the splint including ulcerations of the skin. Based on the loss of reduction from proceeding with regular dressing changes at this time what I would recommend is that we do an appropriate dressing change and not change the splint. Family understands this could lead to further wound necrosis as we are not able to regularly follow the wound and a well-formed splint will be placed in order to maintain reduction. After discussion of these risks and benefits as well as risks and benefits of surgery the power of title attorney was agreeable to the treatment plan. We will plan for close reduction in the operating room tomorrow morning with examination of the wounds and dressing changes at that time. Family does understand that if the wound is significantly bad we may not attempt another reduction in order to protect her soft tissues. Overall based on the patient's limited function, medical comorbidities and active infected hematoma I do not feel the patient is a good candidate for open reduction internal fixation however, she would benefit from increase stabilization with percutaneous pinning. This plan was discussed with the family and they do understand that the pin sites could be an infection risk however she will be on antibiotics. They are agreeable to the treatment plan and we will plan to proceed tomorrow. She is on scheduled antibiotics and will not require additional antibiotics for surgery. She has been made n.p.o. after midnight.
[2020-07-19] MEDS: 0.9% Normal Saline 1,000 ML 70 ML IV (14:52)
[2020-07-19 14:55] VITALS: BP 107/63; PULSE 78; RESP 16; TEMP 37.1; O2SAT 93
[2020-07-19] MEDS: Juven (unflavored) Packet 1 PACKET PO (17:02)
[2020-07-19] MEDS: LORazepam 1 MG Tablet PO (22:50)
[2020-07-19] MEDS: MELATONIN 3 MG TABLET 6 MG PO (22:51)
[2020-07-19] MEDS: Sertraline 50 MG Tablet 150 MG PO (22:53)
[2020-07-19 22:55] VITALS: BP 102/64; PULSE 79; RESP 20; TEMP 37.5; O2SAT 93
[2020-07-20] VITALS (11 sets, daily range): BP systolic 96–132; BP diastolic 47–74; PULSE 58–74; RESP 16–20; TEMP 36.4–37.3; O2SAT 89–97; BMI 30.3
[2020-07-20] MEDS: 0.9% Saline Lock 10 ML Syringe IV (05:53)
[2020-07-20] MEDS: 0.9% Normal Saline 1,000 ML 70 ML IV ×2 (05:55→16:32)
[2020-07-20 06:31] LABS: Hematocrit 26.2 % (37-47); Hemoglobin 8.2 g/dL (12.0-15.0); Mean Corp Hgb Conc 31.3 g/dL (32-36); Mean Corpuscular Hgb 31.4 pg (27.0-32.0); Mean Corpuscular Volume 100.4 fL (81-99); Mean Platelet Vol. 9.9 fl (6.2-12.0); Platelet Count 230 K/mm3 (150-450); RBC Distribution Width CV 13.8 % (11.6-14.6); Red Blood Count 2.61 M/mm3 (4.2-5.4); White Blood Count 7.2 K/mm3 (4.4-11.0)
[2020-07-20 07:17] LABS: Anion Gap 4 (5-15); BUN 18 mg/dL (7-18); BUN/Creat Ratio 31.9 RATIO (10-20); Calcium,Total 8.5 mg/dL (8.5-10.1); Chloride 106 mmol/L (98-107); Creatinine, Serum 0.56 mg/dL (0.55-1.02); EST Glomerular Filtration Rate 115 mL/min (>60); Est Glom Filt Rate - Afr Amer 140 mL/min (>60); Estimated Creatinine Clearance 97.51 ml/min; Glucose 79 mg/dL (74-106); Potassium 4.1 mmol/L (3.5-5.1); Sodium Level 139 mmol/L (136-145)
--- NOTE | 2020-07-20 07:30 | RAD_ITS ---
STUDY: X-RAY - RIGHT WRIST REASON FOR EXAM: Female, 60 years old. right wrist closed reduction with pinning TECHNIQUE: 2 view(s) of the wrist were obtained. COMPARISON: 07/18/2020 FINDINGS: Fluoroscopy the right wrist was utilized and operating room and 2 images suspended for interpretation.. RAD/Wrist 2 Views IMPRESSION: Fluoroscopy during surgery. Electronically Signed: Edgardo Medina MD at 9:00 EST Tel , Service support ,
--- NOTE | 2020-07-20 07:30 | RAD_ITS ---
STUDY: X-RAY - LEFT WRIST REASON FOR EXAM: Female, 60 years old. Left wrist closed reduction with pinning TECHNIQUE: 4 view(s) of the wrist were obtained. COMPARISON: 07/18/2020 FINDINGS: Fluoroscopy of the left wrist was utilized and operating room and 4 images are limited for interpretation.. RAD/Wrist 2 Views IMPRESSION: Fluoroscopy during surgery. Electronically Signed: Edgardo Medina MD at 9:01 EST Tel , Service support ,
[2020-07-20] MEDS: Bacitracin 500 UNITS/GM PACKET (08:15)
--- NOTE | 2020-07-20 08:17 | PCM.PN.HOSP ---
Patient Problems: Active and Suspected Problems (Last Reviewed 07/15/20 @ 19:[address] Lisa Ridley, DO) Leg wound, right (Acute) Wrist fracture, bilateral (Acute) Reason for Visit: Right lower extremity necrotic wound ?Bilateral wrist fracture Subjective: She was seen in consultation by Dr. Cohen who did perform Right extra-articular distal radius close reduction percutaneous pinning. Left extra-articular distal radius closed reduction percutaneous pinning Objective: GENERAL: cooperative HEENT: Atraumatic; EYES; Anicteric, Normal Conjunctiva NECK; supple, normal thyroid, RESPIRATORY: Diminished to auscultation CARDIOVASCULAR: Regular S1 S2, GI: soft, normoactive bowel sounds, : No Renal angle tenderness; EXTREMITIES: Right lower extremity in surgical dressing MUSCULOSKELETAL: no muscle waisting NEURO: Awake; no lateralizing signs. SKIN: Multiple areas of ecchymosis on both upper and lower extremities PSYCH; Flat affect Vitals/I&O's: Vital Signs Temp Pulse Resp BP Pulse Ox 99.1 F 67 18 99/63 92 07/20/20 04:55 07/20/20 04:55 07/20/20 04:55 07/20/20 04:55 07/20/20 04:55 Oxygen Flow Rate (L/min) 2 Oxygen Delivery Method Room Air Weight: 85.139 kg Body Mass Index (BMI) 30.2 Intake and Output for Last 24 Hours 07/18/20 07/19/20 07/20/20 23:59 23:59 23:59 Intake Total 2751.26 / 2751.26 1810 / 1810 1105 / 1105 Output Total 875 / 875 Balance 2751.26 / 2751.26 935 / 935 1105 / 1105 Microbiology Past 72 Hours 07/16/20 12:00 Tissue - Leg, Right Gram Stain - Final 07/16/20 12:00 Tissue - Leg, Right Wound Culture - Preliminary Acinetobacter baumannii Klebsiella oxytoca 07/16/20 12:00 Tissue - Leg, Right Anaerobic Culture - Preliminary Checking for anaerobes, further studies to follow. Laboratory Results 07/20/20 05:48: WBC 7.2, RBC 2.61 L, Hgb 8.2 L, Hct 26.2 L, MCV 100.4 H, MCH 31.4, MCHC 31.3 L, RDW Std Deviation 51.0 H, RDW Coeff of Marylu 13.8, Plt Count 230, MPV 9.9 07/20/20 05:48: Sodium 139, Potassium 4.1, Chloride 106, Carbon Dioxide 29.0, Anion Gap 4 L, BUN 18, Creatinine 0.56, Estim Creat Clear Calc 97.51, Est GFR (MDRD) Af Amer 140, Est GFR (MDRD) Non-Af 115, BUN/Creatinine Ratio 31.9 H, Glucose 79, Calcium 8.5 Current Medications Acetaminophen (Acetaminophen 500 Mg Tablet) 1,000 mg PO BID PRN PRN Reason: Pain Score 1-10 Last Admin: 07/18/20 12:20 Dose: 1,000 mg Documented by: Al Hydroxide/Mg Hydroxide (Mag Hydrox/Al Hydrox/Simeth 30 Ml Udc) 30 ml PO Q6H PRN PRN PRN Reason: Gastric Burning Albuterol Sulfate (Albuterol 2.5 Mg/3 Ml Vial.Neb.) 2.5 mg INHALATION Q2H PRN PRN PRN Reason: Shortness of Breath/Wheezing Calamine/Phenol (Menthol/Lanolin/Calamine/Znox 113 Gm Tube) 1 applic TOPICAL BID [facility]; Protocol Last Admin: 07/19/20 22:50 Dose: 1 applicatio Documented by: Calcium Carbonate (Calcium Carbonate 500 Mg Tablet) [facility] Last Admin: 07/19/20 17:02 Dose: 1,000 mg Documented by: Cholecalciferol (Cholecalciferol (Vit D3) 1,000 Unit (25mcg)) 2,000 unit PO DAILY [facility] Last Admin: 07/19/20 09:47 Dose: 2,000 unit Documented by: Dexamethasone (Dexamethasone 2 Mg Tablet) [facility] Last Admin: 07/19/20 09:33 Dose: 3 mg Documented by: Docusate Sodium (Docusate Sodium 100 Mg Capsule) 100 mg PO BID PRN PRN PRN Reason: Constipation Last Admin: 07/17/20 08:02 Dose: 100 mg Documented by: Enoxaparin Sodium (Enoxaparin 30 Mg/0.3 Ml Syringe) 30 mg SC BID [facility] Stop: 07/30/20 22:01 Last Admin: 07/19/20 22:51 Dose: 30 mg Documented by: Famotidine (Famotidine 20 Mg Tablet) 20 mg PO BID [facility] Last Admin: 07/19/20 22:52 Dose: 20 mg Documented by: Hydromorphone HCl (Hydromorphone 1 Mg/Ml Syringe) 0.5 mg IV Q4H PRN PRN PRN Reason: BREAKTHROUGH PAIN (>4/10) Last Admin: 07/18/20 17:36 Dose: 0.5 mg Documented by: Sodium Chloride () 250 mls @ 15 mls/hr IV .[id number] PRN PRN Reason: Additional IVPB Infusion Last Infusion: 07/18/20 18:33 Dose: 15 mls/hr Documented by: Sodium Chloride () 1,000 mls @ 70 mls/hr IV .[id number] [facility] Last Admin: 07/20/20 05:55 Dose: 70 mls/hr Documented by: Colistimethate Sodium 150 mg/ (Sodium Chloride) 50 mls @ 100 mls/hr IV Q12 [facility] Last Infusion: 07/19/20 23:30 Dose: Infused Documented by: Tigecycline 50 mg/ Sodium (Chloride) 105 mls @ 105 mls/hr IV Q12 [facility] Last Infusion: 07/20/20 01:50 Dose: Infused Documented by: L-Arginine/L-Glutamine/Calcium HMB (Rodger (Unflavored) Packet) [facility] Last Admin: 07/19/20 17:02 Dose: 1 packet Documented by: Levetiracetam (Levetiracetam 250 Mg Tablet) 750 mg PO BID [facility] Last Admin: 07/19/20 22:54 Dose: 750 mg Documented by: Lorazepam (Lorazepam 1 Mg Tablet) 1 mg PO QHS [facility] Last Admin: 07/19/20 22:50 Dose: 1 mg Documented by: Melatonin ([facility] 3 Mg Tablet) [facility] Last Admin: 07/19/20 22:51 Dose: 6 mg Documented by: Multivitamins (Multivitamins,Therapeutic Tablet) [facility] Last Admin: 07/19/20 09:35 Dose: 1 tablet Documented by: Nicotine (Nicotine 14 Mg Patch) 14 mg TD DAILY [facility] Last Admin: 07/19/20 09:52 Dose: 14 mg Documented by: Ondansetron HCl (Ondansetron 4 Mg/2 Ml Vial) 4 mg IV Q8H PRN PRN PRN Reason: NAUSEA/VOMITING Oxycodone HCl (Oxycodone 5 Mg Tablet) 5 mg PO Q4H PRN PRN Reason: Pain Score 4-5 Oxycodone HCl (Oxycodone 5 Mg Tablet) 10 mg PO Q4H PRN PRN PRN Reason: Pain Score 6-10 Last Admin: 07/19/20 09:29 Dose: 10 mg Documented by: Polyethylene Glycol (Polyethylene Glycol 3350 17 Gm Packet) 17 gm PO DAILY [facility] Last Admin: 07/19/20 09:43 Dose: 17 gm Documented by: Polysaccharide Iron Complex (Iron Polysaccharide Complex 150 Mg Capsule) [facility] Last Admin: 07/19/20 09:41 Dose: 150 mg Documented by: Senna (Senna Tablet) 1 tablet PO BID [facility] Last Admin: 07/19/20 22:52 Dose: 1 tablet Documented by: Sertraline HCl (Sertraline 50 Mg Tablet) 150 mg PO QHS [facility] Last Admin: 07/19/20 22:53 Dose: 150 mg Documented by: Sodium Chloride (0.9% Saline Lock 10 Ml Syringe) 10 - 40 ml IV UD PRN PRN Reason: SALINE FLUSH Last Admin: 07/20/20 05:53 Dose: 10 ml Documented by: Sodium Hypochlorite (Dakin's Roxie Half Strength (=0.25%)) 1 applic TOPICAL DAILY [facility]; Protocol Last Admin: 07/19/20 09:42 Dose: 1 applicatio Documented by: STROKE Vital Signs/Narrative: Vital Signs Temp Pulse Resp BP Pulse Ox 07/20/20 04:55 99.1 F 67 18 99/63 92 Medical Necessity - Tobacco Use Smoking Status: Current every day smoker Tobacco Use: Cigarettes Assessment/Plan All Active Problems (Last Reviewed 07/15/20 @ 19:[address] Lisa Ridley, DO) Acute postoperative anemia due to expected blood loss (Acute) Open wound of right lower extremity with complication (Acute) Abrasion of multiple sites of upper extremity and shoulder (Acute) Abrasion of multiple sites of lower extremity (Acute) Hematoma of right lower extremity (Acute) Abscess of right lower extremity (Acute) Leg wound, right (Acute) Wrist fracture, bilateral (Acute) Patient is a 60-year-old lady with multiple comorbidities admitted with right lower extremity necrotic wound. Admitted to regular nursing floor with consultation placed to plastic surgery. 1. Traumatic infected necrotic hematoma abscess right anterior leg. -Status post incision and drainage and evacuation and excisional debridement traumatic infected necrotic hematoma abscess including overlying compromised skin with necrosis on 07/16/[address] Moya. Patient wound culture so far positive for multidrug-resistant organisms (Acinetobacter and Klebsiella oxytoca. Patient is on Zosyn and Vanco tobramycin added to therapy consult placed to infectious disease -07/19/2020; Microbiology 07/16/20 12:00 Gram Stain - Final Tissue - Leg, Right Wound Culture - Preliminary Acinetobacter baumannii Klebsiella oxytoca Anaerobic Culture - Preliminary Checking for anaerobes, further studies to follow. Antibiotic therapy discussed with Dr. Funez with infectious disease plan is to discontinue previous antibiotics and patient started on colistin and Tygacil -07/20/2020; colistin and Tygacil started on 07/19/2020. Defer duration of antibiotic therapy to ID. Patient scheduled to be seen by Dr. Funez on 07/21/2020 2. Physical deconditioning with multiple falls - Requested for PT OT eval and social sciences instructor to assist with discharge planning 3. Bilateral wrist fractures ?Patient in splints -07/19/2020 orthopedic consult requested by family placed - 07/20/2020; seen in consultation by Dr. Cohen who did perform Right extra-articular distal radius close reduction percutaneous pinning. Left extra-articular distal radius closed reduction percutaneous pinning on 07/20/2020 4. Glioblastoma multiforme -status post craniectomy and chemoradiation on long-term dexamethasone and Keppra. 5. GERD ?Patient is on H2 blockers 6. Anemia - Secondary to chronic disorder monitoring H&H and transfuse if patient becomes symptomatic or hemoglobin falls below 7 7. Vitamin D deficiency ?Patient is on calcium as well as cholecalciferol 8. Depression with anxiety ?Patient is on SSRI 9. DVT prophylaxis ?Enoxaparin Inpatient E&M: [id number] [facility] Hosp L3
--- NOTE | 2020-07-20 08:47 | PCM.OPRPT ---
Report of Operation Date of Procedure: 07/20/20 Pre-Operative Diagnosis: 1. Right extra-articular distal radius fracture, displaced comminuted. 2. Left extra-articular distal radius fracture, displaced comminuted Post-Operative Diagnosis: 1. Right extra-articular distal radius fracture, displaced comminuted. 2. Left extra-articular distal radius fracture, displaced comminuted Surgery/Procedure Performed:: Right extra-articular distal radius close reduction percutaneous pinning. Left extra-articular distal radius closed reduction percutaneous pinning Description of Surgical Findings:: Stable reductions. We were able to obtain limited reduction secondary to being 2 weeks old and patient had fragile skin however we were able to improve the position of both fractures. mechanical facilities technician: None Type of Anesthesia:: General Anesthesiologist: Mati Chappell Special Medications: Patient was receiving antibiotics on the floor Specimen's removed: No specimens Estimated Blood Loss (mL): 5 mL Fluids Replaced: Crystalloid Description of Procedure: On the date of the procedure bilateral upper extremities were marked in the preoperative area. Patient was brought back to the operating room where they were transferred to the table in the supine position. Anesthesia assumed control of the C-spine and airway and remained controlled throughout the remainder of the procedure. After administering anesthetic all bony prominences identified well-padded. At this point we directed our attention to the left upper extremity. Table was turned 90 degrees in the room for x-ray access. Patient was examined and did have a 2 and half by 3 and half centimeter ulceration on the proximal dorsal forearm. Betadine solution was used to prep the hand and forearm. Surgeon then scrubbed. Upon reentering the room the left upper extremity was draped in a standard orthopedic fashion. Timeout was called and when agreed upon the side, the site, treated performed, patient identity and antibiotics given. At this time x-ray was brought in and we looked at the preoperative x-rays and position of the fracture. Fracture manipulation was performed improving the fracture position. Patient did lack appropriate height and inclination but we were able to restore some of her dorsal angulation. Certainly was better than the preoperative. Two 0.062 K wires were then passed under x-ray guidance. Once we are happy with the pin positions in fracture position pins were bent and cut. Caps were placed. Xeroform was placed around the pin sites we did use a 15 blade to make sure that there were no excessive pressure at the pin sites due to the angulation of the pins. Once this was done bacitracin and Adaptic were used to dress the ulceration. An AP splint was then placed. Drapes were removed. At this point we directed our attention to the right upper extremity. Table was turned 90 degrees in the room for x-ray access. Patient was examined and did have a patient did have 2 smaller ulcerations 1 proximal and 1 distal on the dorsal forearm. Betadine solution was used to prep the hand and forearm. Surgeon then scrubbed. Upon reentering the room the left upper extremity was draped in a standard orthopedic fashion. Timeout had previously been called we again agreed on the appropriate sides. At this time x-ray was brought in and we looked at the preoperative x-rays and position of the fracture. Fracture manipulation was performed improving the fracture position. Patient did lack appropriate height and inclination but we were able to restore some of her dorsal angulation. Certainly was better than the preoperative. Two 0.062 K wires were then passed under x-ray guidance. Once we are happy with the pin positions in fracture position pins were bent and cut. Caps were placed. Xeroform was placed around the pin sites we did use a 15 blade to make sure that there were no excessive pressure at the pin sites due to the angulation of the pins. Once this was done bacitracin and Adaptic were used to dress the ulcerations. While dressing these ulcerations we did note that the distal forearm ulceration did have an increased skin tear. An AP splint was then placed. Drapes were removed. Patient was then awakened by anesthesia then transferred the [facility] and transferred to PACU for recovery. Postoperative plan: Patient will remain in her splint for 2 weeks. At which point we will remove the splints and attempt to switch her to a removable brace and allow for further dressing changes. She will be nonweightbearing on bilateral wrists. She is able to bear weight through her elbows for a platform walker if she can tolerate it. Grafts/Implants Used: For 0.062 K wires - Complications Patient did have an extension of her right distal forearm skin tear - Admit VTE Documentation VTE Present on Admission: No VTE Mechan Device Prophylaxis: SCD's VTE Pharm Prophylaxis ordered?: Yes
[2020-07-20] MEDS: dexAMETHasone 2 MG TABLET 3 MG PO (11:08)
[2020-07-20] MEDS: Multivitamins,Therapeutic Tablet 1 TABLET PO (11:09)
[2020-07-20] MEDS: Calcium Carbonate 500 MG Tablet 1000 MG PO ×2 (11:09→16:36)
[2020-07-20] MEDS: Iron Polysaccharide Complex 150 MG CAPSULE PO (11:10)
[2020-07-20] MEDS: Menthol/Lanolin/Calamine/Znox 113 GM Tube 1 APPLIC TOPICAL ×2 (11:36→23:06)
[2020-07-20] MEDS: Enoxaparin 30 MG/0.3 ML Syringe SC ×2 (11:36→23:10)
[2020-07-20] MEDS: Famotidine 20 MG Tablet PO ×2 (11:46→23:11)
[2020-07-20] MEDS: Senna Tablet 1 TABLET PO ×2 (11:46→23:12)
[2020-07-20] MEDS: levETIRAcetam 250 MG Tablet 750 MG PO ×2 (11:48→23:09)
[2020-07-20] MEDS: Polyethylene Glycol 3350 17 GM PACKET PO (11:48)
[2020-07-20] MEDS: Acetaminophen 500 MG Tablet 1000 MG PO (13:54)
[2020-07-20] MEDS: DAKIN'S SOL HALF STRENGTH (=0.25%) 1 APPLIC TOPICAL (15:00)
[2020-07-20] MEDS: Juven (unflavored) Packet 1 PACKET PO (16:36)
[2020-07-20] MEDS: LORazepam 1 MG Tablet PO (23:05)
[2020-07-20] MEDS: Sertraline 50 MG Tablet 150 MG PO (23:07)
[2020-07-20] MEDS: MELATONIN 3 MG TABLET 6 MG PO (23:11)
[2020-07-21 03:20] VITALS: BMI 30.3
[2020-07-21 04:16] VITALS: BP 110/72; PULSE 65; RESP 18; TEMP 37.2; O2SAT 93
--- NOTE | 2020-07-21 06:43 | PCM.PN.ORT ---
Patient Problems: Active and Suspected Problems (Last Reviewed 07/15/20 @ 19:[address] Lisa Ridley, DO) Leg wound, right (Acute) Wrist fracture, bilateral (Acute) Subjective: The patient was sitting in bed upon examination. Patient denies any chest pain, shortness of breath, dizziness, lightheadedness, nausea or vomiting, or calf pain. Pain is controlled on medications. No adverse overnight events. She does complain of soreness in bilateral wrists. She denies any numbness and tingling. Objective: Vital signs stable and afebrile. Patient's bilateral splints are fitting well. Patient does have continued swelling to bilateral fingers. Sensation is intact to light touch to fingers. Unable to perform capillary refill due to nail ecuad[place] Patient is able to move her fingers with flexion to the splint and full extension bilaterally No pain with range of motion of bilateral elbows. - Physical Exam Vitals/I&O's: Vital Signs Temp Pulse Resp BP Pulse Ox 99.0 F 65 18 110/72 93 07/21/20 04:16 07/21/20 04:16 07/21/20 04:16 07/21/20 04:16 07/21/20 04:16 Oxygen Flow Rate (L/min) 1 Oxygen Delivery Method Room Air Weight: 85.139 kg Body Mass Index (BMI) 30.2 Intake and Output for Last 24 Hours 07/19/20 07/20/20 07/21/20 23:59 23:59 23:59 Intake Total 1810 / 1810 2693.17 / 2743.17 155 / 155 Output Total 875 / 875 600 / 600 100 / 100 Balance 935 / 935 2093.17 / 2143.17 55 / 55 General: Alert, Oriented x3, Cooperative, No apparent distress Microbiology Past 72 Hours 07/16/20 12:00 Tissue - Leg, Right Gram Stain - Final 07/16/20 12:00 Tissue - Leg, Right Wound Culture - Preliminary Acinetobacter baumannii Klebsiella oxytoca 07/16/20 12:00 Tissue - Leg, Right Anaerobic Culture - Preliminary Checking for anaerobes, further studies to follow. Laboratory Results 07/20/20 05:48: Sodium 139, Potassium 4.1, Chloride 106, Carbon Dioxide 29.0, Anion Gap 4 L, BUN 18, Creatinine 0.56, Estim Creat Clear Calc 97.51, Est GFR (MDRD) Af Amer 140, Est GFR (MDRD) Non-Af 115, BUN/Creatinine Ratio 31.9 H, Glucose 79, Calcium 8.5 Current Medications Acetaminophen (Acetaminophen 500 Mg Tablet) 1,000 mg PO BID PRN PRN Reason: Pain Score 1-10 Last Admin: 07/20/20 13:54 Dose: 1,000 mg Documented by: Al Hydroxide/Mg Hydroxide (Mag Hydrox/Al Hydrox/Simeth 30 Ml Udc) 30 ml PO Q6H PRN PRN PRN Reason: Gastric Burning Albuterol Sulfate (Albuterol 2.5 Mg/3 Ml Vial.Neb.) 2.5 mg INHALATION Q2H PRN PRN PRN Reason: Shortness of Breath/Wheezing Calamine/Phenol (Menthol/Lanolin/Calamine/Znox 113 Gm Tube) 1 applic TOPICAL BID [facility]; Protocol Last Admin: 07/20/20 23:06 Dose: 1 applicatio Documented by: Calcium Carbonate (Calcium Carbonate 500 Mg Tablet) [facility] Last Admin: 07/20/20 16:36 Dose: 1,000 mg Documented by: Cholecalciferol (Cholecalciferol (Vit D3) 1,000 Unit (25mcg)) 2,000 unit PO DAILY [facility] Last Admin: 07/20/20 11:47 Dose: 2,000 unit Documented by: Dexamethasone (Dexamethasone 2 Mg Tablet) [facility] Last Admin: 07/20/20 11:08 Dose: 3 mg Documented by: Docusate Sodium (Docusate Sodium 100 Mg Capsule) 100 mg PO BID PRN PRN PRN Reason: Constipation Last Admin: 07/17/20 08:02 Dose: 100 mg Documented by: Enoxaparin Sodium (Enoxaparin 30 Mg/0.3 Ml Syringe) 30 mg SC BID [facility] Stop: 07/30/20 22:01 Last Admin: 07/20/20 23:10 Dose: 30 mg Documented by: Famotidine (Famotidine 20 Mg Tablet) 20 mg PO BID [facility] Last Admin: 07/20/20 23:11 Dose: 20 mg Documented by: Hydromorphone HCl (Hydromorphone 1 Mg/Ml Syringe) 0.5 mg IV Q4H PRN PRN PRN Reason: BREAKTHROUGH PAIN (>4/10) Last Admin: 07/18/20 17:36 Dose: 0.5 mg Documented by: Sodium Chloride () 250 mls @ 15 mls/hr IV .[id number] PRN PRN Reason: Additional IVPB Infusion Last Infusion: 07/18/20 18:33 Dose: 15 mls/hr Documented by: Sodium Chloride () 1,000 mls @ 70 mls/hr IV .[id number] [facility] Last Admin: 07/20/20 16:32 Dose: 70 mls/hr Documented by: Colistimethate Sodium 150 mg/ (Sodium Chloride) 50 mls @ 100 mls/hr IV Q12 [facility] Last Infusion: 07/20/20 23:50 Dose: Infused Documented by: Tigecycline 50 mg/ Sodium (Chloride) 105 mls @ 105 mls/hr IV Q12 [facility] Last Infusion: 07/21/20 01:22 Dose: Infused Documented by: L-Arginine/L-Glutamine/Calcium HMB (Rodger (Unflavored) Packet) [facility] Last Admin: 07/20/20 16:36 Dose: 1 packet Documented by: Levetiracetam (Levetiracetam 250 Mg Tablet) 750 mg PO BID [facility] Last Admin: 07/20/20 23:09 Dose: 750 mg Documented by: Lorazepam (Lorazepam 1 Mg Tablet) 1 mg PO QHS [facility] Last Admin: 07/20/20 23:05 Dose: 1 mg Documented by: Melatonin (Melatonin 3 Mg Tablet) 6 mg PO QHS [facility] Last Admin: 07/20/20 23:11 Dose: 6 mg Documented by: Multivitamins (Multivitamins,Therapeutic Tablet) [facility] Last Admin: 07/20/20 11:09 Dose: 1 tablet Documented by: Nicotine (Nicotine 14 Mg Patch) 14 mg TD DAILY [facility] Last Admin: 07/20/20 11:46 Dose: 14 mg Documented by: Ondansetron HCl (Ondansetron 4 Mg/2 Ml Vial) 4 mg IV Q8H PRN PRN PRN Reason: NAUSEA/VOMITING Oxycodone HCl (Oxycodone 5 Mg Tablet) 5 mg PO Q4H PRN PRN Reason: Pain Score 4-5 Oxycodone HCl (Oxycodone 5 Mg Tablet) 10 mg PO Q4H PRN PRN PRN Reason: Pain Score 6-10 Last Admin: 07/19/20 09:29 Dose: 10 mg Documented by: Polyethylene Glycol (Polyethylene Glycol 3350 17 Gm Packet) 17 gm PO DAILY [facility] Last Admin: 07/20/20 11:48 Dose: 17 gm Documented by: Polysaccharide Iron Complex (Iron Polysaccharide Complex 150 Mg Capsule) 150 mg PO DAILYCM [facility] Last Admin: 07/20/20 11:10 Dose: 150 mg Documented by: Senna (Senna Tablet) 1 tablet PO BID [facility] Last Admin: 07/20/20 23:12 Dose: 1 tablet Documented by: Sertraline HCl (Sertraline 50 Mg Tablet) 150 mg PO QHS [facility] Last Admin: 07/20/20 23:07 Dose: 150 mg Documented by: Sodium Chloride (0.9% Saline Lock 10 Ml Syringe) 10 - 40 ml IV UD PRN PRN Reason: SALINE FLUSH Last Admin: 07/20/20 05:53 Dose: 10 ml Documented by: Sodium Hypochlorite (Dakin's Roxie Half Strength (=0.25%)) 1 applic TOPICAL DAILY [facility]; Protocol Last Admin: 07/20/20 15:00 Dose: 1 applicatio Documented by: Medical Necessity - Tobacco Use Smoking Status: Current every day smoker Tobacco Use: Cigarettes Assessment/Plan All Active Problems (Last Reviewed 07/15/20 @ 19:[address] Lisa Ridley, DO) Acute postoperative anemia due to expected blood loss (Acute) Open wound of right lower extremity with complication (Acute) Abrasion of multiple sites of upper extremity and shoulder (Acute) Abrasion of multiple sites of lower extremity (Acute) Hematoma of right lower extremity (Acute) Abscess of right lower extremity (Acute) Leg wound, right (Acute) Wrist fracture, bilateral (Acute) 1. S/P right wrist extra-articular distal radius closed reduction percutaneous pinning and left wrist extra-articular distal radius closed reduction percutaneous pinning POD #1 2. Continue Pain Medications: Continue pain medications per medicine 3. PT/OT: Continue with bilateral splints with the left wrist percutaneous pinning. Okay for range of motion of the fingers as well as elevation for swelling control. Nonweightbearing bilateral upper extremities for 6 weeks. Okay to use weightbearing through her elbows for a platform walker if patient can tolerate. 4. Encouraged Incentive Spirometry 5. Continue postoperative medical care per medicine 6. Disposition: Orthopedically stable, okay for discharge when medically stable. Patient will require 2-week follow-up at [place] [facility] [place] with Dr. Xander Cohen for repeat x-rays of bilateral wrists and skin assessment. We will continue with the splints and attempt to switch her to a removable brace to allow for further dressing changes at 2-week visit. Patient will remain nonweightbearing on bilateral wrists for minimum 6 weeks. Patient can bear weight through her elbows with a platform walker if she can tolerate. Continue pain medications per medicine. Please contact orthopedics with any concerns or questions.
[2020-07-21] MEDS: 0.9% Normal Saline 1,000 ML 70 ML IV ×2 (07:00→21:14)
[2020-07-21 07:06] LABS: Hemoglobin 8.4 g/dL (12.0-15.0); Mean Corp Hgb Conc 32.3 g/dL (32-36); Mean Corpuscular Hgb 31.9 pg (27.0-32.0); Mean Corpuscular Volume 98.9 fL (81-99); Mean Platelet Vol. 9.8 fl (6.2-12.0); Platelet Count 229 K/mm3 (150-450); RBC Distribution Width CV 13.8 % (11.6-14.6); RBC Distribution Width SD 49.4 fl (35.1-43.9); Red Blood Count 2.63 M/mm3 (4.2-5.4); White Blood Count 6.2 K/mm3 (4.4-11.0)
[2020-07-21 07:25] VITALS: O2SAT 93
[2020-07-21 07:37] LABS: Anion Gap 5 (5-15); BUN 19 mg/dL (7-18); Calcium,Total 8.2 mg/dL (8.5-10.1); Chloride 105 mmol/L (98-107); Creatinine, Serum 0.58 mg/dL (0.55-1.02); EST Glomerular Filtration Rate 113 mL/min (>60); Est Glom Filt Rate - Afr Amer 137 mL/min (>60); Estimated Creatinine Clearance 94.15 ml/min; Glucose 79 mg/dL (74-106); Potassium 3.9 mmol/L (3.5-5.1); Sodium Level 138 mmol/L (136-145)
--- NOTE | 2020-07-21 08:18 | PN_ITS ---
Patient Problems: Active and Suspected Problems (Last Reviewed 07/15/20 @ 19:[address] Lisa Ridley, DO) Wrist fracture, bilateral (Acute) Subjective: Chief complaint: Follow-up after admission for right anterior leg traumatic infected necrotic hematoma/abscess, bilateral wrist fractures status post repair. Patient seen and examined. No acute events overnight. Today, she mentioned that her both wrists pain as well as left leg pain is manageable with pain medication. Currently, her pain level is around 7 out of 10 in severity but manageable. Denies any other complaints. Her vital signs are stable. - Physical Exam Vitals/I&O's: Vital Signs Temp Pulse Resp BP Pulse Ox 99.0 F 65 18 110/72 93 07/21/20 04:16 07/21/20 04:16 07/21/20 04:16 07/21/20 04:16 07/21/20 07:25 Oxygen Flow Rate (L/min) 1 Oxygen Delivery Method Room Air Weight: 187 lb 11.19 oz Body Mass Index (BMI) 30.2 Intake and Output for Last 24 Hours 07/19/20 07/20/20 07/21/20 23:59 23:59 23:59 Intake Total 1810 / 1810 2693.17 / 2743.17 1155 / 1155 Output Total 875 / 875 600 / 600 100 / 100 Balance 935 / 935 2093.17 / 2143.17 1055 / 1055 General: Alert, Oriented x3, Cooperative, No apparent distress HEENT: Atraumatic, PERRLA, EOMI, Normocephalic Oral: Moist Mucosa, No Gingival or Mucosal Lesions/ Ulcerations Neck: Supple, No JVD, Negative Carotid Bruits, Trachea Midline, Thyroid Normal Size and Texture Lungs: Clear to auscultation, No rhonchi, No wheeze, No rales, Diminished Cardiovascular: Regular rate, Regular Rhythm, Normal S1, Normal S2, PMI Normal Abdomen: Bowel Sounds Present, Soft, Non Tender, Non-Distended, No Hepato- splenomegaly, Obese Extremities: No clubbing, No cyanosis, No edema Skin: No rashes, Ulcer/ Wound Lymphatic: No Cervical, Supraclavicular, or Inguinal Adenopathy Neurological: Cranial nerves II-XII grossly intact, Motor Exam 5/5 strength throughout Psych/Mental Status: Normal Affect, Appropriate, Alert and oriented to time, place, person, mood and affect Microbiology Past 72 Hours 07/16/20 12:00 Tissue - Leg, Right Gram Stain - Final 07/16/20 12:00 Tissue - Leg, Right Wound Culture - Preliminary Acinetobacter baumannii Klebsiella oxytoca 07/16/20 12:00 Tissue - Leg, Right Anaerobic Culture - Preliminary Checking for anaerobes, further studies to follow. Laboratory Results 07/21/20 06:50: WBC 6.2, RBC 2.63 L, Hgb 8.4 L, Hct 26.0 L, MCV 98.9, MCH 31.9, MCHC 32.3, RDW Std Deviation 49.4 H, RDW Coeff of Marylu 13.8, Plt Count 229, MPV 9.8 07/21/20 06:50: Sodium 138, Potassium 3.9, Chloride 105, Carbon Dioxide 28.0, Anion Gap 5, BUN 19 H, Creatinine 0.58, Estim Creat Clear Calc 94.15, Est GFR (MDRD) Af Amer 137, Est GFR (MDRD) Non-Af 113, BUN/Creatinine Ratio 33.0 H, Glucose 79, Calcium 8.2 L Current Medications Acetaminophen (Acetaminophen 500 Mg Tablet) 1,000 mg PO BID PRN PRN Reason: Pain Score 1-10 Last Admin: 07/20/20 13:54 Dose: 1,000 mg Documented by: Al Hydroxide/Mg Hydroxide (Mag Hydrox/Al Hydrox/Simeth 30 Ml Udc) 30 ml PO Q6H PRN PRN PRN Reason: Gastric Burning Albuterol Sulfate (Albuterol 2.5 Mg/3 Ml Vial.Neb.) 2.5 mg INHALATION Q2H PRN PRN PRN Reason: Shortness of Breath/Wheezing Calamine/Phenol (Menthol/Lanolin/Calamine/Znox 113 Gm Tube) 1 applic TOPICAL BID [facility]; Protocol Last Admin: 07/20/20 23:06 Dose: 1 applicatio Documented by: Calcium Carbonate (Calcium Carbonate 500 Mg Tablet) 1,000 mg PO BIDCM [facility] Last Admin: 07/20/20 16:36 Dose: 1,000 mg Documented by: Cholecalciferol (Cholecalciferol (Vit D3) 1,000 Unit (25mcg)) 2,000 unit PO DAILY [facility] Last Admin: 07/20/20 11:47 Dose: 2,000 unit Documented by: Dexamethasone (Dexamethasone 2 Mg Tablet) 3 mg PO DAILYCM [facility] Last Admin: 07/20/20 11:08 Dose: 3 mg Documented by: Docusate Sodium (Docusate Sodium 100 Mg Capsule) 100 mg PO BID PRN PRN PRN Reason: Constipation Last Admin: 07/17/20 08:02 Dose: 100 mg Documented by: Enoxaparin Sodium (Enoxaparin 30 Mg/0.3 Ml Syringe) 30 mg SC BID [facility] Stop: 07/30/20 22:01 Last Admin: 07/20/20 23:10 Dose: 30 mg Documented by: Famotidine (Famotidine 20 Mg Tablet) 20 mg PO BID [facility] Last Admin: 07/20/20 23:11 Dose: 20 mg Documented by: Hydromorphone HCl (Hydromorphone 1 Mg/Ml Syringe) 0.5 mg IV Q4H PRN PRN PRN Reason: BREAKTHROUGH PAIN (>4/10) Last Admin: 07/18/20 17:36 Dose: 0.5 mg Documented by: Sodium Chloride () 250 mls @ 15 mls/hr IV .[id number] PRN PRN Reason: Additional IVPB Infusion Last Infusion: 07/18/20 18:33 Dose: 15 mls/hr Documented by: Sodium Chloride () 1,000 mls @ 70 mls/hr IV .[id number] [facility] Last Admin: 07/21/20 07:00 Dose: 70 mls/hr Documented by: Colistimethate Sodium 150 mg/ (Sodium Chloride) 50 mls @ 100 mls/hr IV Q12 [facility] Last Infusion: 07/20/20 23:50 Dose: Infused Documented by: Tigecycline 50 mg/ Sodium (Chloride) 105 mls @ 105 mls/hr IV Q12 [facility] Last Infusion: 07/21/20 01:22 Dose: Infused Documented by: L-Arginine/L-Glutamine/Calcium HMB (Rodger (Unflavored) Packet) [facility] Last Admin: 07/20/20 16:36 Dose: 1 packet Documented by: Levetiracetam (Levetiracetam 250 Mg Tablet) 750 mg PO BID [facility] Last Admin: 07/20/20 23:09 Dose: 750 mg Documented by: Lorazepam (Lorazepam 1 Mg Tablet) 1 mg PO QHS [facility] Last Admin: 07/20/20 23:05 Dose: 1 mg Documented by: Melatonin (Melatonin 3 Mg Tablet) 6 mg PO QHS [facility] Last Admin: 07/20/20 23:11 Dose: 6 mg Documented by: Multivitamins (Multivitamins,Therapeutic Tablet) 1 tablet [facility] Last Admin: 07/20/20 11:09 Dose: 1 tablet Documented by: Nicotine (Nicotine 14 Mg Patch) 14 mg TD DAILY [facility] Last Admin: 07/20/20 11:46 Dose: 14 mg Documented by: Ondansetron HCl (Ondansetron 4 Mg/2 Ml Vial) 4 mg IV Q8H PRN PRN PRN Reason: NAUSEA/VOMITING Oxycodone HCl (Oxycodone 5 Mg Tablet) 5 mg PO Q4H PRN PRN Reason: Pain Score 4-5 Oxycodone HCl (Oxycodone 5 Mg Tablet) 10 mg PO Q4H PRN PRN PRN Reason: Pain Score 6-10 Last Admin: 07/19/20 09:29 Dose: 10 mg Documented by: Polyethylene Glycol (Polyethylene Glycol 3350 17 Gm Packet) 17 gm PO DAILY [facility] Last Admin: 07/20/20 11:48 Dose: 17 gm Documented by: Polysaccharide Iron Complex (Iron Polysaccharide Complex 150 Mg Capsule) 150 mg [facility] Last Admin: 07/20/20 11:10 Dose: 150 mg Documented by: Senna (Senna Tablet) 1 tablet PO BID [facility] Last Admin: 07/20/20 23:12 Dose: 1 tablet Documented by: Sertraline HCl ([facility]ine 50 Mg Tablet) [facility] Admin: 07/20/20 23:07 Dose: 150 mg Documented by: Sodium Chloride (0.9% Saline Lock 10 Ml Syringe) 10 - 40 ml IV UD PRN PRN Reason: SALINE FLUSH Last Admin: 07/20/20 05:53 Dose: 10 ml Documented by: Sodium Hypochlorite (Dakin's Roxie Half Strength (=0.25%)) 1 applic TOPICAL DAILY [facility]; Protocol Last Admin: 07/20/20 15:00 Dose: 1 applicatio Documented by: Medical Necessity - Tobacco Use Smoking Status: Current every day smoker Tobacco Use: Cigarettes Assessment/Plan All Active Problems (Last Reviewed 07/15/20 @ 19:[address] Lisa Ridley, DO) Hematoma of right lower extremity (Acute) Abscess of right lower extremity (Acute) Wrist fracture, bilateral (Acute) This is a 60 years old female patient was directly admitted from the [facility] for right lower extremity necrotic infected hematoma after she had mechanical fall on July 03, 2020 and she was transferred to [facility], also found to have bilateral wrist fractures for which she underwent surgical repair. #1 acute traumatic infected necrotic hematoma/abscess of the right anterior leg: Status post incision, drainage and excisional debridement, postoperative day 5. She is on IV tigecycline and colistimethate. She has been afebrile, vital signs are stable. Wound culture revealed to proceed oxytocin and Acinetobacter. Infectious disease on the case as well as plastic surgery. Plan to continue same treatment, patient will need placement to [facility] facility. #2 acute traumatic bilateral comminuted/displaced distal radius fractures: Status post closed reduction and percutaneous pinning. Status post closed reduction and percutaneous pinning, postop day 0. Currently, her pain is manageable. She is on IV Dilaudid and OxyIR as needed. Orthopedic surgery on the case. #3 physical debility/functional decline/frequent falls: PT OT evaluation and treatment, plan for placement to [facility] facility. #4 seizure disorder: Stable, continue Keppra. #5 glioblastoma multiforme: Stable, she is on long-term Decadron 3 mg p.o. juancho y, continued. #6 GERD: Continue Pepcid twice daily. #7 anemia: It is anemia of chronic disease. Hemoglobin has been around 10 to 11 g/dL, it was down to 8.8 g on admission which is probably due to blood loss during surgery. Today hemoglobin is 8.4 g/dL, no active bleeding. Plan to monitor, transfuse if hemoglobin is than 8 g/dL. #8 anxiety and depression: Continue Ativan, melatonin and Zoloft. #9 DVT prophylaxis: Subcu Lovenox. This note was generated with [employer] dictation software. It may contain incorrect words, spelling, and punctuation that were not noted in checking the note before signing. Inpatient E&M: 79434 Subs Hosp L2
--- NOTE | 2020-07-21 09:29 | CASEMGMT ---
Addendum entered by Pricilla Cintron 07/21/20 16:02: SW received call from pt's daughter Chanelle. SW updated Chanelle that pre-cert has been obtained and is good until tomorrow. SW updated Chanelle that if pt is medically ready tomorrow, pt could admit to TCU tomorrow. SW explained that if pt doesn't admit to TCU tomorrow then pre-cert will need to be resubmitted. Chanelle states understanding. Addendum entered by Pricilla Cintron 07/21/20 14:56: SW in to speak with pt. SW updated pt that pt's daughter Chanelle would like pt to admit to [facility] TCU and insurance approval has been obtained. Pt states understanding, agreeable to [facility] TCU. SW attempted to call pt's daughter Chanelle and update her, no answer, SW left message. Plan: TCU likely tomorrow. Pre-cert is only good until tomorrow. It pt doesn't admit to TCU tomorrow, a new pre-cert will be needed. Addendum entered by Pricilla Cintron 07/21/20 10:18: SW received call from Alina in TCU. Pt's pre-cert is good until tomorrow. Pt has to admit to TCU tomorrow or pre-cert will need to be resubmitted. Plan: TCU likely tomorrow. Original Note: Social Work Note SW updated that pre-cert was obtained Tuesday but pt was not medically ready for discharge. Pt will likely be ready for discharge tomorrow. JOZEF placed a call to Alina in TCU, Alina states she will check with pt's insurance but will likely need to resubmit for pre-cert. JOZEF informed Alina that if pre-cert is needed again to resubmit for pre-cert today as pt will likely be ready for discharge tomorrow. Alina states understanding. Plan: TCU, TCU checking if pre-cert will be needed again Pricilla Cintron [employer], [employer] DEVEL[employer]
[2020-07-21 09:45] VITALS: BP 102/53; PULSE 67; RESP 16; TEMP 36.8; O2SAT 95
[2020-07-21] MEDS: Multivitamins,Therapeutic Tablet 1 TABLET PO (10:34)
[2020-07-21] MEDS: Menthol/Lanolin/Calamine/Znox 113 GM Tube 1 APPLIC TOPICAL ×2 (10:34→21:13)
[2020-07-21] MEDS: Calcium Carbonate 500 MG Tablet 1000 MG PO ×2 (10:34→17:17)
[2020-07-21] MEDS: dexAMETHasone 2 MG TABLET 3 MG PO (10:34)
[2020-07-21] MEDS: Enoxaparin 30 MG/0.3 ML Syringe SC (10:34)
[2020-07-21] MEDS: Famotidine 20 MG Tablet PO ×2 (10:34→21:12)
[2020-07-21] MEDS: Iron Polysaccharide Complex 150 MG CAPSULE PO (10:34)
[2020-07-21] MEDS: levETIRAcetam 250 MG Tablet 750 MG PO ×2 (10:35→21:12)
[2020-07-21] MEDS: Juven (unflavored) Packet 1 PACKET PO ×2 (10:35→17:17)
--- NOTE | 2020-07-21 10:44 | NURSING ---
wound photo: right anterior lower leg
--- NOTE | 2020-07-21 10:45 | NURSING ---
wound photo: right posterior lower leg
[2020-07-21] MEDS: Acetaminophen 500 MG Tablet 1000 MG PO (10:46)
[2020-07-21] MEDS: 0.9 % NaCl (Sterile) Posiflush 10 mL IV (11:16)
[2020-07-21 14:48] VITALS: BP 102/55; PULSE 72; RESP 18; TEMP 36.9; O2SAT 95
--- NOTE | 2020-07-21 15:30 | CON.PCM_ITS ---
Problem List (1) Abscess of right lower extremity Status: Acute Reason for Consult: XDR AcB Consulted by: Dr. Jerome History of Present Illness: The patient is a 60 year old F admitted from the wound center with RLE necrotic wound. She had a fall down the stairs on 07/03 and presented to this ED with a R LE deep wound and B wrist fractures and given that this was the result of a trauma she was sent to [facility] for further care. She was seen by plastics and they sutured some of the skin and ortho placed her in B UE wrist splints and she was discharged to [place]. Admitted here, seen by Dr. Moya, taken to OR 07/16. Surg cx with XDR AcB and some klebs. Was on vanc/zosyn/levaquin. Abx adjusted to tigecycline and colistin. Feeling ok, family member at bedside. Full ROS performed and neg except as noted above. - Medical History Past Medical History (Chronic Problems): Chronic Problems (Last Reviewed 07/15/20 @ 19:[address] Lisa Ridley, DO) Confusion (Chronic) Ulcer of left lower extremity with fat layer exposed (Chronic) Status post skin graft (Chronic) Venous insufficiency of both lower extremities (Chronic) GERD (gastroesophageal reflux disease) (Chronic) Seizure disorder (Chronic) Hypertension (Chronic) Anxiety (Chronic) Chronic pain (Chronic) Neuropathic pain (Chronic) Other complications of skin graft (allograft) (autograft) (Chronic) Failed skin graft (Chronic) Complication of skin graft (Chronic) Glioblastoma multiforme (Chronic) Ulcers of both lower legs (Chronic) multiple infected ulcers bilateral legs L97.919 Wound, open, lower limb with complication (Chronic) Allergies/Adverse Reactions: Allergies adhesive tape Adverse Reaction (Verified 04/02/20 15:11) VERY THIN STEROID SKIN WILL REMOVE SKIN IF ON TOO LONG bee Allergy (Uncoded 04/02/20 15:11) Hives Home Medications: Ambulatory Orders Medication Instructions Recorded Dexamethasone 3 mg PO DAILY 03/02/17 Melatonin 6 mg PO QHS 01/03/20 Senna [Senokot] 1 tab PO BID 01/03/20 Sertraline HCl [Zoloft] 150 mg PO QHS 01/03/20 Acetaminophen [Tylenol Extra 1,000 mg PO BID PRN 01/08/20 Strength] Famotidine 20 mg PO BID 01/08/20 Levetiracetam [Keppra] 750 mg PO BID 01/08/20 Multivitamins,Therapeutic 1 tab PO DAILY 01/08/20 [Multivitamin] Lorazepam 1 mg PO QHS 07/04/20 Calcium Carbonate [Tums] 1,000 mg PO BIDCM 07/15/20 Cholecalciferol (VIT D3) [Vitamin 2,000 unit PO DAILY 07/15/20 D] Enoxaparin [Lovenox] 30 mg SQ BID 07/15/20 Oxycodone HCl 5 mg PO Q8H PRN PRN 07/15/20 - Social History Tobacco Use: cigarettes Vital Signs Temp Pulse Resp BP Pulse Ox 98.4 F 72 18 102/55 L 95 07/21/20 14:48 07/21/20 14:48 07/21/20 14:48 07/21/20 14:48 07/21/20 14:48 Oxygen Flow Rate (L/min) 1 Oxygen Delivery Method Room Air Weight: 85.139 kg Body Mass Index (BMI) 30.2 Microbiology Past 72 Hours 07/16/20 12:00 Gram Stain - Final Tissue - Leg, Right Wound Culture - Preliminary Acinetobacter baumannii Klebsiella oxytoca Anaerobic Culture - Final No anaerobic bacteria isolated. Laboratory Tests Past 24 Hrs 07/21/20 07/21/20 06:50 06:50 WBC 6.2 RBC 2.63 L Hgb 8.4 L Hct 26.0 L MCV 98.9 MCH 31.9 MCHC 32.3 RDW Std Deviation 49.4 H RDW Coeff of Marylu 13.8 Plt Count 229 MPV 9.8 Sodium 138 Potassium 3.9 Chloride 105 Carbon Dioxide 28.0 Anion Gap 5 BUN 19 H Creatinine 0.58 Estim Creat Clear Calc 94.15 Est GFR (MDRD) Af Amer 137 Est GFR (MDRD) Non-Af 113 BUN/Creatinine Ratio 33.0 H Glucose 79 Calcium 8.2 L - Other Studies Radiology: [] reviewed Other Studies: [] Route of nutrition/ use of supplements: [] Nutritional Intake: [] IV Site: [] Valente Catheter: [] - Physical Exam General: Alert, Cooperative, No apparent distress HEENT: Atraumatic, PERRLA, EOMI Neck: Supple, No Nodes Lungs: Clear to auscultation, Normal air movement Cardiovascular: Regular rate, Regular Rhythm Abdomen: Soft, Non Tender, Non-Distended Skin: Ulcer/ Wound - reviewed photos IV Site: PICC Musculoskeletal: No Tenderness to Palpation of Joints or Extremities Neurological: Cranial nerves II-XII grossly intact - Assessment/Plan Antibiotics: [] Assessment/Plan: [] Active and Suspected Problems (Last Reviewed 07/15/20 @ 19:[address] Lisa Han ee, DO) Wrist fracture, bilateral (Acute) XDR AcB RLE deep wound infection - now s/p OR 07/16/[address] Moya. Surg cx also with klebs. Abx broadened to colistin and tigecycline, [place] [facility] [place] tige, and colistin. Will order contact iso. Will follow, thank you
[2020-07-21 20:45] VITALS: BP 136/83; PULSE 78; RESP 20; TEMP 37.2; O2SAT 98
[2020-07-21] MEDS: MELATONIN 3 MG TABLET 6 MG PO (21:11)
[2020-07-21] MEDS: Sertraline 50 MG Tablet 150 MG PO (21:11)
[2020-07-21] MEDS: LORazepam 1 MG Tablet PO (21:12)
[2020-07-22 03:50] VITALS: BP 102/46; PULSE 93; RESP 18; TEMP 37.1; O2SAT 94
[2020-07-22 07:09] VITALS: O2SAT 92
[2020-07-22 07:15] LABS: Hematocrit 26.9 % (37-47); Hemoglobin 8.5 g/dL (12.0-15.0)
[2020-07-22 07:55] VITALS: BP 119/71; PULSE 77; RESP 18; TEMP 36.8; O2SAT 93
[2020-07-22] MEDS: Calcium Carbonate 500 MG Tablet 1000 MG PO (08:04)
[2020-07-22] MEDS: dexAMETHasone 2 MG TABLET 3 MG PO (08:04)
[2020-07-22] MEDS: Acetaminophen 500 MG Tablet 1000 MG PO (08:05)
[2020-07-22] MEDS: Famotidine 20 MG Tablet PO (08:05)
[2020-07-22] MEDS: Iron Polysaccharide Complex 150 MG CAPSULE PO (08:05)
[2020-07-22] MEDS: levETIRAcetam 250 MG Tablet 750 MG PO (08:05)
[2020-07-22] MEDS: Multivitamins,Therapeutic Tablet 1 TABLET PO (08:05)
[2020-07-22] MEDS: Juven (unflavored) Packet 1 PACKET PO (08:06)
[2020-07-22] MEDS: Menthol/Lanolin/Calamine/Znox 113 GM Tube 1 APPLIC TOPICAL (08:06)
[2020-07-22] MEDS: Enoxaparin 30 MG/0.3 ML Syringe SC (08:06)
--- NOTE | 2020-07-22 08:52 | NURSING ---
Wound VAC dressing intact to the right lower leg at 150mmHg low continuous suction. pt has a moderate amount of drainage noted in the canister. pt resting comfortably at this time.
--- NOTE | 2020-07-22 10:17 | PN.ID_ITS ---
Patient Problems: Active and Suspected Problems (Last Reviewed 07/15/20 @ 19:[address] Lisa Ridley, DO) Abscess of right lower extremity (Acute) Wrist fracture, bilateral (Acute) Subjective: Feeling ok, no fever, no n/v/d. - Physical Exam Vitals/I&O's: Vital Signs Temp Pulse Resp BP Pulse Ox 98.3 F 77 18 119/71 93 07/22/20 07:55 07/22/20 07:55 07/22/20 07:55 07/22/20 07:55 07/22/20 07:55 Oxygen Flow Rate (L/min) 1 Oxygen Delivery Method Room Air Weight: 85.139 kg Body Mass Index (BMI) 30.2 Intake and Output for Last 24 Hours 07/20/20 07/21/20 07/22/20 23:59 23:59 23:59 Intake Total 2693.17 / 2743.17 3365.33 / 3365.33 1085.5 / 1085.5 Output Total 600 / 600 1000 / 1000 Balance 2093.17 / 2143.17 2365.33 / 2365.33 1085.5 / 1085.5 General: Alert, Cooperative, No apparent distress Lungs: Clear to auscultation, Normal air movement Cardiovascular: Regular rate, Regular Rhythm Abdomen: Soft, Non Tender, Non-Distended Skin: No rashes Microbiology Past 72 Hours 07/16/20 12:00 Tissue - Leg, Right Gram Stain - Final 07/16/20 12:00 Tissue - Leg, Right Wound Culture - Preliminary Acinetobacter baumannii Klebsiella oxytoca 07/16/20 12:00 Tissue - Leg, Right Anaerobic Culture - Final No anaerobic bacteria isolated. Laboratory Results 07/22/20 06:13: Hgb 8.5 L, Hct 26.9 L Current Medications Acetaminophen (Acetaminophen 500 Mg Tablet) 1,000 mg PO BID PRN PRN Reason: Pain Score 1-10 Last Admin: 07/22/20 08:05 Dose: 1,000 mg Documented by: Al Hydroxide/Mg Hydroxide (Mag Hydrox/Al Hydrox/Simeth 30 Ml Udc) 30 ml PO Q6H PRN PRN PRN Reason: Gastric Burning Albuterol Sulfate (Albuterol 2.5 Mg/3 Ml Vial.Neb.) 2.5 mg INHALATION Q2H PRN PRN PRN Reason: Shortness of Breath/Wheezing Calamine/Phenol (Menthol/Lanolin/Calamine/Znox 113 Gm Tube) 1 applic TOPICAL BID [facility]; Protocol Last Admin: 07/22/20 08:06 Dose: 1 applicatio Documented by: Calcium Carbonate (Calcium Carbonate 500 Mg [facility]t) [facility] Last Admin: 07/22/20 08:04 Dose: 1,000 mg Documented by: Cholecalciferol (Cholecalciferol (Vit D3) 1,000 Unit (25mcg)) 2,000 unit PO DAILY [facility] Last Admin: 07/22/20 08:05 Dose: 2,000 unit Documented by: Dexamethasone (Dexamethasone 2 Mg Tablet) [facility] Last Admin: 07/22/20 08:04 Dose: 3 mg Documented by: Docusate Sodium (Docusate Sodium 100 Mg Capsule) 100 mg PO BID PRN PRN PRN Reason: Constipation Last Admin: 07/17/20 08:02 Dose: 100 mg Documented by: Enoxaparin Sodium (Enoxaparin 30 Mg/0.3 Ml Syringe) 30 mg SC DAILY [facility] Stop: 07/30/20 22:01 Last Admin: 07/22/20 08:06 Dose: 30 mg Documented by: Famotidine (Famotidine 20 Mg Tablet) 20 mg PO BID [facility] Last Admin: 07/22/20 08:05 Dose: 20 mg Documented by: Heparin Sodium (Beef Lung) (Heparin Pf Lock 10 Units/Ml 50 Units/5 Ml Syringe) 50 units IV UD PRN PRN Reason: PICC Line Heparin Flush Hydromorphone HCl (Hydromorphone 1 Mg/Ml Syringe) 0.5 mg IV Q4H PRN PRN PRN Reason: BREAKTHROUGH PAIN (>4/10) Last Admin: 07/18/20 17:36 Dose: 0.5 mg Documented by: Sodium Chloride () 250 mls @ 15 mls/hr IV .[id number] PRN PRN Reason: Additional IVPB Infusion Last Infusion: 07/18/20 18:33 Dose: 15 mls/hr Documented by: Sodium Chloride () 1,000 mls @ 70 mls/hr IV .[id number] [facility] Last Infusion: 07/22/20 09:53 Dose: 0 mls/hr Documented by: Colistimethate Sodium 150 mg/ (Sodium Chloride) 50 mls @ 100 mls/hr IV Q12 [facility] Last Admin: 07/22/20 09:53 Dose: 100 mls/hr Documented by: Tigecycline 50 mg/ Sodium (Chloride) 105 mls @ 105 mls/hr IV Q12 [facility] Last Infusion: 07/21/20 23:05 Dose: Infused Documented by: L-Arginine/L-Glutamine/Calcium HMB (Rodger (Unflavored) Packet) [facility] Last Admin: 07/22/20 08:06 Dose: 1 packet Documented by: Levetiracetam (Levetiracetam 250 Mg Tablet) 750 mg PO BID [facility] Last Admin: 07/22/20 08:05 Dose: 750 mg Documented by: Lorazepam (Lorazepam 1 Mg Tablet) 1 mg PO QHS [facility] Last Admin: 07/21/20 21:12 Dose: 1 mg Documented by: Melatonin (Melatonin 3 Mg Tablet) 6 mg PO QHS [facility] Last Admin: 07/21/20 21:11 Dose: 6 mg Documented by: Multivitamins (Multivitamins,Therapeutic Tablet) [facility] Last Admin: 07/22/20 08:05 Dose: 1 tablet Documented by: Nicotine (Nicotine 14 Mg Patch) 14 mg TD DAILY [facility] Last Admin: 07/22/20 08:04 Dose: 14 mg Documented by: Ondansetron HCl (Ondansetron 4 Mg/2 Ml Vial) 4 mg IV Q8H PRN PRN PRN Reason: NAUSEA/VOMITING Oxycodone HCl (Oxycodone 5 Mg Tablet) 5 mg PO Q4H PRN PRN Reason: Pain Score 4-5 Oxycodone HCl (Oxycodone 5 Mg Tablet) 10 mg PO Q4H PRN PRN PRN Reason: Pain Score 6-10 Last Admin: 07/19/20 09:29 Dose: 10 mg Documented by: Polyethylene Glycol (Polyethylene Glycol 3350 17 Gm Packet) 17 gm PO DAILY [facility] Last Admin: 07/22/20 08:06 Dose: Not Given Documented by: Polysaccharide Iron Complex (Iron Polysaccharide Complex 150 Mg Capsule) [facility] Last Admin: 07/22/20 08:05 Dose: 150 mg Documented by: Senna (Senna Tablet) 1 tablet PO BID [facility] Last Admin: 07/22/20 08:06 Dose: Not Given Documented by: Sertraline HCl (Sertraline 50 Mg Tablet) 150 mg PO QHS [facility] Last Admin: 07/21/20 21:11 Dose: 150 mg Documented by: Sodium Chloride (0.9% Saline Lock 10 Ml Syringe) 10 - 40 ml IV UD PRN PRN Reason: SALINE FLUSH Last Admin: 07/20/20 05:53 Dose: 10 ml Documented by: Sodium Chloride (0.9 % Nacl (Sterile) Posiflush 10 Ml) 10 - 40 ml IV UD PRN PRN Reason: Port access or dressing change Last Admin: 07/21/20 11:16 Dose: 20 ml Documented by: Medical Necessity - Tobacco Use Smoking Status: Current every day smoker Tobacco Use: Cigarettes Route of nutrition/ use of supplements: [] Nutritional Intake: [] IV Site: [] Valente Catheter: [] - Assessment/Plan Antibiotics: [] Assessment/Plan: [] Active and Suspected Problems (Last Reviewed 07/15/20 @ 19:[address] Lisa Ridley, DO) Wrist fracture, bilateral (Acute) XDR AcB RLE deep wound infection - now s/p OR 07/16/[address] Moya. Surg cx also with klebs. Abx broadened to colistin and tigecycline, [place] [facility] [place] judy, tige, and colistin. Will follow, d/w case packer and sealer. Wrote for one more week of colistin and tigecycline. Will need at least twice weekly bmp while on colistin.
--- NOTE | 2020-07-22 10:40 | CASEMGMT ---
Addendum entered by Pricilla Cintron 07/22/20 11:35: Pt is medically cleared for discharge. JOZEF placed a call to Alina in TCU and left message that pt will be discharged to TCU. SW in to speak with pt, SW updated pt that she will be discharged to TCU today. JOZEF updated pt that this worker will call her daughter Chanelle to update, pt states understanding. JOZEF placed a call to pt's daughter Chanelle and updated her that pt will be discharged to TCU today. Chanelle states understanding. Plan: TCU today Original Note: Social Work Note PT is going to be on IV antibiotics at discharge. JOZEF placed a call to Alina in TCU and provided antibiotics. Alina states she priced checked antibiotics, pt is able to admit to TCU. Plan: TCU Pricilla Cintron RECYCLING COORDINATOR, VULCANIZED FIBER UNIT OPERATOR
--- NOTE | 2020-07-22 10:57 | PCM.TXEXTCAR ---
- Diet 07/20/20 18:31 Diet: Regular - General Type of Dietary Supplement:: 120 mL Ensure Enlive Is pt able to select menu?: No Diet Comments: set up meal tray/ easy to chew foods/softer foods - Routine Orders/Code Status Code Status: DNRCC-A - Wound(s) rt fa Wound Type: Surgical Incision Dressing Change: Adaptic LT FA Wound Type: Surgical Incision Dressing Change: Adaptic LT LOWER LEG Wound Type: Laceration Dressing Change: Mepilex RT KNEE Wound Type: Skin Tear Dressing Change: Adaptic with dry dressing RT LOWER LEG Wound Type: Surgical Incision Dressing Change: Adaptic right anterior lower leg Wound Type: Open Surgical Wound Dressing Change: applied KCI wound VAC right posterior lower leg Wound Type: Open Surgical Wound Dressing Change: applied KCI wound VAC - Suggestions for Active Care Change Position every (hours): 3 Hours to sit in a chair: 2 Times a day to sit in chair: 3 - Therapies Weight Bearing: Weight bearing as tolerated Physical Therapy: Eval and Treat Occupational Therapy: Eval and Treat - Allergies/Procedures Done in Hospital Allergies/Adverse Reactions: Allergies adhesive tape Adverse Reaction (Verified 04/02/20 15:11) VERY THIN STEROID SKIN WILL REMOVE SKIN IF ON TOO LONG bee Allergy (Uncoded 04/02/20 15:11) Hives - Type of Care/Length of Stay Estimated LOS: Convalescent Care Less Than 30 days Type of Care Needed: Skilled Rehab Potential: Good Prognosis: Good - Additional Orders/Day of Discharge H&P will serve as current which was dated: 07/15/20 Day of Discharge: 07/22/20 - Dietary and Speech Recommendations Dietitian Recommendations/Changes: Continue regular diet, 120mL ensure w/ meals. Will add Rodger BID for wound healing. - Follow Up Care Primary Care Physician: Loc Arizmendi DO [Primary Care Provider] - Please follow up with your Primary Care Physician in: 1 week. Please Follow Up With: Rell Cohen MD When: followup in 2 weeks from discharge Please Follow Up With: Kei Moya MD When: 1-2 weeks. Please Follow Up With: Christiano Funez MD When: 1-2 weeks.
--- NOTE | 2020-07-22 13:05 | PCM.DC.SUM ---
Discharge Date and Diagnosis - Problem List Patient Problems: Active and Suspected Problems (Last Reviewed 07/15/20 @ 19:[address] Lisa Ridley DO) Abscess of right lower extremity (Acute) Wrist fracture, bilateral (Acute) Date of Admission: 07/15/20 Date of Discharge: 07/22/20 - Primary Discharge Diagnosis Acute Problems: Active Problems (Last Reviewed 07/15/20 @ 19:[address] Lsia Ridley DO) #1 Acute traumatic Acinetobacter/Klebsiella oxytoca infected necrotic hematoma/abscess of the right anterior leg, status post incision, drainage and excisional debridement. #2 acute traumatic bilateral comminuted displaced distal radius fractures, status post closed reduction and percutaneous pinning. #3 chronic anemia. #4 physical debility/functional decline/frequent falls. - Secondary Discharge Diagnosis Chronic Problems: Chronic Problems (Last Reviewed 07/15/20 @ 19:[address] Lisa Ridley DO) Confusion (Chronic) Ulcer of left lower extremity with fat layer exposed (Chronic) Status post skin graft (Chronic) Venous insufficiency of both lower extremities (Chronic) GERD (gastroesophageal reflux disease) (Chronic) Seizure disorder (Chronic) Hypertension (Chronic) Anxiety (Chronic) Chronic pain (Chronic) Neuropathic pain (Chronic) Other complications of skin graft (allograft) (autograft) (Chronic) Failed skin graft (Chronic) Complication of skin graft (Chronic) Glioblastoma multiforme (Chronic) Ulcers of both lower legs (Chronic) multiple infected ulcers bilateral legs L97.919 Wound, open, lower limb with complication (Chronic) Hospital Course and Treatment Imaging Results: Clinical Impression(s) from Imaging Studies Wrist X-Ray 07/18/20 20:50 Wrist X-Ray 07/18/20 20:50 Wrist X-Ray 07/20/20 07:30 IMPRESSION: Fluoroscopy during surgery. Electronically Signed: Edgardo Medina MD at 9:00 EST Tel , Service support , Wrist X-Ray 07/20/20 07:30 IMPRESSION: Fluoroscopy during surgery. Electronically Signed: Edgardo Medina MD at 9:01 EST Tel , Service support , Consultations 07/15/20 16:35 Consult: Onc/Wound/botany teacher Routine Comment: Dr. Moya, plastic surgery. Dr. Cohen, orthopedic surgery. Dr. Funez, infectious disease. Operations: None Procedures: - - Incision, drainage and debridement of the right leg. Closed reduction and percutaneous pinning of bilateral radial fractures. Summary of Care Provided: Patient seen and examined on the day of discharge and appeared to be stable to be discharged to TCU. Her pain is manageable with the current pain medication regimen. Denied any new complaints. Her vital signs were stable. This is a 60 years old female patient was directly admitted from the [facility] care [facility] for right lower extremity necrotic infected hematoma after she had mechanical fall on July 03, 2020 and she was transferred to [facility], also found to have bilateral wrist fractures for which she underwent surgical repair. #1 acute traumatic infected necrotic hematoma/abscess of the right anterior leg: Status post incision, drainage and excisional debridement. she was treated with IV antibiotics namely IV tigecycline and colistimethate. Infectious disease consulted. Wound culture revealed Acetobacter and Klebsiella oxytoca. She had wound VAC inserted after surgery. Upon discharge, patient discharged on IV tigecycline and colistimethate for 1 more week of treatment. Plan to follow-up with plastic surgery as well as ID as outpatient. #2 acute traumatic bilateral comminuted/displaced distal radius fractures: Status post closed reduction and percutaneous pinning. Status post closed reduction and percutaneous pinning. This was done by Dr. Cohen. Currently, her pain is manageable. Patient discharged on OxyIR as needed for pain, plan to follow-up with orthopedic surgery as outpatient. #3 physical debility/functional decline/frequent falls: Discharged to SNF for further PT OT. #4 seizure disorder: Stable, continued on Keppra. #5 glioblastoma multiforme: Stable, continued on Decadron #6 GERD: Continued on Pepcid. #7 anemia: It is anemia of chronic disease. Hemoglobin has been around 10 to 11 g/dL, it was down to 8.8 g on admission which is probably due to blood loss during surgery. Discharge hemoglobin is 8.4 g/dL, no active bleeding. #8 anxiety and depression: Continued on Ativan, melatonin and Zoloft. Patient discharged to transitional care unit in a stable medical condition, discharged on IV antibiotics as mentioned above, plan to follow-up with plastic surgery in 1 to 2 weeks, follow-up with orthopedic surgery in 2 weeks, follow-up with ID in 1 to 2 weeks and recommended follow-up with PCP in 1 week. This note was generated with [employer] dictation software. It may contain incorrect words, spelling, and punctuation that were not noted in checking the note before signing. Patient Problems: Active and Suspected Problems (Last Reviewed 07/15/20 @ 19:[address] Lisa Ridley, DO) Abscess of right lower extremity (Acute) Wrist fracture, bilateral (Acute) - Physical Exam Vitals/I&O's: Vital Signs Temp Pulse Resp BP Pulse Ox 98.3 F 77 18 119/71 93 07/22/20 07:55 07/22/20 07:55 07/22/20 07:55 07/22/20 07:55 07/22/20 07:55 Oxygen Flow Rate (L/min) 1 Oxygen Delivery Method Room Air Weight: 187 lb 11.19 oz Body Mass Index (BMI) 30.2 Intake and Output for Last 24 Hours 07/20/20 07/21/20 07/22/20 23:59 23:59 23:59 Intake Total 2693.17 / 2743.17 3365.33 / 3365.33 1600.5 / 1600.5 Output Total 600 / 600 1000 / 1000 400 / 400 Balance 2093.17 / 2143.17 2365.33 / 2365.33 1200.5 / 1200.5 General: Alert, Oriented x3, Cooperative, No apparent distress HEENT: Atraumatic, PERRLA, EOMI, Normocephalic Oral: Moist Mucosa, No Gingival or Mucosal Lesions/ Ulcerations Neck: Supple, No JVD, Negative Carotid Bruits, Trachea Midline, Thyroid Normal Size and Texture Lungs: Clear to auscultation, No rhonchi, No wheeze, No rales Cardiovascular: Regular rate, Regular Rhythm, Normal S1, Normal S2, PMI Normal Abdomen: Bowel Sounds Present, Soft, Non Tender, Non-Distended, No Hepato-splenomegaly, Obese Extremities: No clubbing, No cyanosis, No edema Skin: No rashes, Ulcer/ Wound Lymphatic: No Cervical, Supraclavicular, or Inguinal Adenopathy Neurological: Cranial nerves II-XII grossly intact, Neuro grossly intact Psych/Mental Status: Normal Affect, Appropriate Microbiology Past 72 Hours 07/16/20 12:00 Tissue - Leg, Right Gram Stain - Final 07/16/20 12:00 Tissue - Leg, Right Wound Culture - Preliminary Acinetobacter baumannii Klebsiella oxytoca 07/16/20 12:00 Tissue - Leg, Right Anaerobic Culture - Final No anaerobic bacteria isolated. Laboratory Results 07/22/20 06:13: Hgb 8.5 L, Hct 26.9 L Current Medications Acetaminophen (Acetaminophen 500 Mg Tablet) 1,000 mg PO BID PRN PRN Reason: Pain Score 1-10 Last Admin: 07/22/20 08:05 Dose: 1,000 mg Documented by: Al Hydroxide/Mg Hydroxide (Mag Hydrox/Al Hydrox/Simeth 30 Ml Udc) 30 ml PO Q6H PRN PRN PRN Reason: Gastric Burning Albuterol Sulfate (Albuterol 2.5 Mg/3 Ml Vial.Neb.) 2.5 mg INHALATION Q2H PRN PRN PRN Reason: Shortness of Breath/Wheezing Calamine/Phenol (Menthol/Lanolin/Calamine/Znox 113 Gm Tube) 1 applic TOPICAL BID [facility]; Protocol Last Admin: 07/22/20 08:06 Dose: 1 applicatio Documented by: Calcium Carbonate (Calcium Carbonate 500 Mg Tablet) [facility] Last Admin: 07/22/20 08:04 Dose: 1,000 mg Documented by: Cholecalciferol (Cholecalciferol (Vit D3) 1,000 Unit (25mcg)) 2,000 unit PO DAILY [facility] Last Admin: 07/22/20 08:05 Dose: 2,000 unit Documented by: Dexamethasone (Dexamethasone 2 Mg Tablet) [facility] Last Admin: 07/22/20 08:04 Dose: 3 mg Documented by: Docusate Sodium (Docusate Sodium 100 Mg Capsule) 100 mg PO BID PRN PRN PRN Reason: Constipation Last Admin: 07/17/20 08:02 Dose: 100 mg Documented by: Enoxaparin Sodium (Enoxaparin 30 Mg/0.3 Ml Syringe) 30 mg SC DAILY [facility] Stop: 07/30/20 22:01 Last Admin: 07/22/20 08:06 Dose: 30 mg Documented by: Famotidine (Famotidine 20 Mg Tablet) 20 mg PO BID [facility] Last Admin: 07/22/20 08:05 Dose: 20 mg Documented by: Heparin Sodium (Beef Lung) (Heparin Pf Lock 10 Units/Ml 50 Units/5 Ml Syringe) 50 units IV UD PRN PRN Reason: PICC Line Heparin Flush Hydromorphone HCl (Hydromorphone 1 Mg/Ml Syringe) 0.5 mg IV Q4H PRN PRN PRN Reason: BREAKTHROUGH PAIN (>4/10) Last Admin: 07/18/20 17:36 Dose: 0.5 mg Documented by: Sodium Chloride () 250 mls @ 15 mls/hr IV .[id number] PRN PRN Reason: Additional IVPB Infusion Last Infusion: 07/18/20 18:33 Dose: 15 mls/hr Documented by: Sodium Chloride () 1,000 mls @ 70 mls/hr IV .[id number] [facility] Last Infusion: 07/22/20 11:43 Dose: 70 mls/hr Documented by: Colistimethate Sodium 150 mg/ (Sodium Chloride) 50 mls @ 100 mls/hr IV Q12 [facility] Last Infusion: 07/22/20 10:25 Dose: Infused Documented by: Tigecycline 50 mg/ Sodium (Chloride) 105 mls @ 105 mls/hr IV Q12 [facility] Last Infusion: 07/22/20 11:42 Dose: Infused Documented by: L-Arginine/L-Glutamine/Calcium HMB (Rodger (Unflavored) Packet) 1 [facility] Last Admin: 07/22/20 08:06 Dose: 1 packet Documented by: Levetiracetam (Levetiracetam 250 Mg Tablet) 750 mg PO BID [facility] Last Admin: 07/22/20 08:05 Dose: 750 mg Documented by: Lorazepam (Lorazepam 1 Mg Tablet) 1 mg PO QHS [facility] Last Admin: 07/21/20 21:12 Dose: 1 mg Documented by: [facility] Mg [facility] Last Admin: 07/21/20 21:11 Dose: 6 mg Documented by: Multivitamins (Multivitamins,Therapeutic Tablet) 1 tablet [facility] Last Admin: 07/22/20 08:05 Dose: 1 tablet Documented by: Nicotine (Nicotine 14 Mg Patch) 14 mg TD DAILY [facility] Last Admin: 07/22/20 08:04 Dose: 14 mg Documented by: Ondansetron HCl (Ondansetron 4 Mg/2 Ml Vial) 4 mg IV Q8H PRN PRN PRN Reason: NAUSEA/VOMITING Oxycodone HCl (Oxycodone 5 Mg Tablet) 5 mg PO Q4H PRN PRN Reason: Pain Score 4-5 Oxycodone HCl (Oxycodone 5 Mg Tablet) 10 mg PO Q4H PRN PRN PRN Reason: Pain Score 6-10 Last Admin: 07/19/20 09:29 Dose: 10 mg Documented by: Polyethylene Glycol (Polyethylene Glycol 3350 17 Gm Packet) 17 gm PO DAILY [facility] Last Admin: 07/22/20 08:06 Dose: Not Given Documented by: Polysaccharide Iron Complex (Iron Polysaccharide Complex 150 Mg Capsule) 150 [facility] Last Admin: 07/22/20 08:05 Dose: 150 mg Documented by: Senna (Senna Tablet) 1 tablet PO BID [facility] Last Admin: 07/22/20 08:06 Dose: Not Given Documented by: Sertraline HCl (Sertraline 50 Mg Tablet) 150 mg PO QHS [facility] Last Admin: 07/21/20 21:11 Dose: 150 mg Documented by: Sodium Chloride (0.9% Saline Lock 10 Ml Syringe) 10 - 40 ml IV UD PRN PRN Reason: SALINE FLUSH Last Admin: 07/20/20 05:53 Dose: 10 ml Documented by: Sodium Chloride (0.9 % Nacl (Sterile) Posiflush 10 Ml) 10 - 40 ml IV UD PRN PRN Reason: Port access or dressing change Last Admin: 07/21/20 11:16 Dose: 20 ml Documented by: Home Medications: Medications to take at Discharge Dexamethasone 3 mg PO DAILY 03/02/17 Melatonin 6 mg PO QHS 01/03/20 Senna [Senokot] 1 tab PO BID 01/03/20 Sertraline HCl [Zoloft] 150 mg PO QHS 01/03/20 Acetaminophen [Tylenol Extra Strength] 1,000 mg PO BID PRN 01/08/20 Famotidine 20 mg PO BID 01/08/20 Levetiracetam [Keppra] 750 mg PO BID 01/08/20 Multivitamins,Therapeutic [Multivitamin] 1 tab PO DAILY 01/08/20 Lorazepam 1 mg PO QHS 07/04/20 Calcium Carbonate [Tums] 1,000 mg PO BIDCM 07/15/20 Cholecalciferol (VIT D3) [Vitamin D3] 2,000 unit PO DAILY 07/15/20 Enoxaparin [Lovenox] 30 mg SQ BID 07/15/20 Colistimethate [Coly-Mycin M] 150 mg IV Q12 07/22/20 Iron Polysaccharide Complex [Ferrex 150] 150 mg PO DAILYCM 07/22/20 Oxycodone [Oxyir] 10 mg PO Q4H PRN PRN 3 Days #30 tab 07/22/20 Tigecycline [Tygacil] 50 mg IV Q12 07/22/20 Following Prescriptions Were Given to Patient: Oxycodone [Oxyir] 10 mg PO Q4H PRN PRN 3 Days #30 tab PRN Reason: Pain Score 6-10 Prescription Printed Primary Care Physician: Loc Arizmendi DO [Primary Care Provider] - Please follow up with your Primary Care Physician in: 1 week. Please Follow Up With: Rell Cohen MD When: followup in 2 weeks from discharge Please Follow Up With: Kei Moya MD When: 1-2 weeks. Please Follow Up With: Christiano Funez MD When: 1-2 weeks. Disposition: Longterm facility Minutes spent on discharge:: 34 Patient Condition:: Stable Medical Necessity - Tobacco Use Smoking Status: Current every day smoker Tobacco Use: Cigarettes Meaningful Use Info Meaningful Use Diagnoses (Choose all that apply): None applicable Inpatient E&M: 70907 Disch Hosp
--- NOTE | 2020-07-22 13:22 | NURSING ---
Report called to [facility] Rush in TCU
[2020-07-22 13:49] VITALS: BP 101/63; PULSE 78; RESP 18; TEMP 36.4; O2SAT 91
--- NOTE | 2020-07-22 14:20 | NURSING ---
Pt transported to TCU via bed and placed in room 7. Assisted to TCU bed with TCU staff.
== END 2020-07-22 14:30 | disposition skilled nursing facility (03) | DRG 571 ==
PROVIDERS: Internal Medicine; Specialist; Surgery; Admitting Provider Internal Medicine; PCP Student in an Organized Health Care Education/Training Program; Visit Provider Hospitalist
PROC: 0JBN0ZZ Excision of Right Lower Leg Subcutaneous Tissue and Fascia, Open Approach (ICD-10-PCS; principal; 2020-07-16 12:50)
PROC: 0PSJ34Z Reposition Left Radius with Internal Fixation Device, Percutaneous Approach (ICD-10-PCS; principal; 2020-07-20 07:30)
DX: L02.415 Cutaneous abscess of right lower limb (principal); I96 Gangrene, not elsewhere classified; D84.821 Immunodeficiency due to drugs; L97.812 Non-pressure chronic ulcer of other part of right lower leg with fat layer exposed; Z16.24 Resistance to multiple antibiotics; C71.9 Malignant neoplasm of brain, unspecified; S52.571D Other intraarticular fracture of lower end of right radius, subsequent encounter for closed fracture with routine healing; S52.572D Other intraarticular fracture of lower end of left radius, subsequent encounter for closed fracture with routine healing; R29.6 Repeated falls; R53.81 Other malaise; W10.9XXD Fall (on) (from) unspecified stairs and steps, subsequent encounter; K21.9 Gastro-esophageal reflux disease without esophagitis; I10 Essential (primary) hypertension; Z79.899 Other long term (current) drug therapy; F17.210 Nicotine dependence, cigarettes, uncomplicated; G40.909 Epilepsy, unspecified, not intractable, without status epilepticus; E55.9 Vitamin D deficiency, unspecified; R62.7 Adult failure to thrive; Z66 Do not resuscitate; S80.12XA Contusion of left lower leg, initial encounter; D63.8 Anemia in other chronic diseases classified elsewhere; F41.9 Anxiety disorder, unspecified; F32.9 Major depressive disorder, single episode, unspecified; B96.1 Klebsiella pneumoniae [K. pneumoniae] as the cause of diseases classified elsewhere; B96.89 Other specified bacterial agents as the cause of diseases classified elsewhere
CPT/HCPCS: 36415; 36569; 73100; 73110; 76000; 80048; 80053; 80200; 80202; 83735; 84134; 85014; 85018; 85025; 85027; 85610; 85652; 85730; 86140; 87070; 87075; 87077; 87102; 87176; 87186; 87205; 87206; 87426; 87640; 88305; 93005; 97110; 97162; 97166; 97530; 97535; 97803; 99212; 99251; J7030; J7050; J7120; A4216; G0463; J2405; J3243; J3490

== ENCOUNTER 2020-07-22 14:46 | Inpatient (IN) | payer MEDICARE, SELFPAY ==
[2020-07-16 09:14] VITALS: BMI 30.2
[2020-07-22 14:53] VITALS: BP 115/71; PULSE 76; RESP 16; TEMP 37.1; O2SAT 93; BMI 29.5
[2020-07-22] MEDS: Famotidine 20 MG Tablet PO (18:08)
[2020-07-22] MEDS: levETIRAcetam 750 MG Tablet PO (18:08)
[2020-07-22] MEDS: Calcium Carbonate 500 MG Tablet 1000 MG PO (18:08)
[2020-07-22] MEDS: Senna Tablet 1 TABLET PO (18:09)
[2020-07-22] MEDS: Enoxaparin 30 MG/0.3 ML Syringe SC (18:09)
--- NOTE | 2020-07-22 20:57 | PCM.HP.STD ---
Problem List (1) Debility Status: Acute (2) Traumatic hematoma of right lower leg with infection Status: Acute (3) Insomnia Status: Chronic (4) Wrist fracture, bilateral Status: Acute (5) GERD (gastroesophageal reflux disease) Status: Chronic (6) Seizure disorder Status: Chronic (7) Hypertension Status: Chronic (8) Anxiety Status: Chronic (9) Chronic pain Status: Chronic (10) Glioblastoma multiforme Status: Chronic (11) Wound, open, lower limb with complication Status: Chronic History of Present Illness Date of Admission: 07/22/20 Chief Complaint: Here for rehabilitation, strengthening, intravenous antibiotics, prior to discharge home with . 07/03/20 Fall with right lower extremity wound, bilateral wrist fractures, treated at [facility], wounds sutured, wrists splinted, transferred to [facility]. 07/15/20 The patient is a 60 year old Female with below past medical history directly admitted to [facility] from Wound center with necrotic right lower extremity wound. Dr. Perez evaluated right lower extremity wound at wound center, determined patient needed hospitalization. Vancomycin, Zosyn for right lower extremity wound infection, check MRSA. Consult Plastic Surgery. 07/16/20 Plastic surgery incised and drained right lower extremity anterior/posterior necrotic hematoma, abscess. 07/16/20 Vancomycin, Zosyn, follow up surgical cultures. PT/OT for Longterm Facility. 07/17/20 Attempt Wound Vac placement. Surgical cultures negative but antibiotics started before cultures taken. Continue Vancomycin, Zosyn. 07/17/20 Surgical cultures growing gram negative rods, GNR lactose wrapper sheeter. on Vancomycin, Zosyn, Levaquin. 07/20/20 Orthopedics performed bilateral distal radius close reduction percutaneous pinning of bilateral wrist fractures. 07/21/20 Infectious Disease consulted for right lower extremity deep wound infection. Wound cultures growing extensively drug resistant Acinetobacter baumanii, Klebsiella Oxytoca. Antibiotics broadened to Colistin, Tigecycline. Contact isolation. 07/22/20 Admit to TCU with debility, here for rehabilitation, strengthening, intravenous antibiotics, prior to discharge home with . Past Medical History Past Medical History (Chronic Problems): Chronic Problems (Last Reviewed 07/15/20 @ 19:[address] Lisa Ridley DO) Insomnia (Chronic) Confusion (Chronic) Ulcer of left lower extremity with fat layer exposed (Chronic) Status post skin graft (Chronic) Venous insufficiency of both lower extremities (Chronic) GERD (gastroesophageal reflux disease) (Chronic) Seizure disorder (Chronic) Hypertension (Chronic) Anxiety (Chronic) Chronic pain (Chronic) Neuropathic pain (Chronic) Other complications of skin graft (allograft) (autograft) (Chronic) Failed skin graft (Chronic) Complication of skin graft (Chronic) Glioblastoma multiforme (Chronic) Ulcers of both lower legs (Chronic) multiple infected ulcers bilateral legs L97.919 Wound, open, lower limb with complication (Chronic) Medical History: Medical History (Last Reviewed 07/15/20 @ 19:[address] Lisa Ridley, DO) Other complications of skin graft (allograft) (autograft) (Chronic) T86.828 Failed skin graft (Chronic) T86.821 Ulcers of both lower legs (Chronic) L97.919, L97.929 multiple infected ulcers bilateral legs L97.919 Allergies adhesive tape Adverse Reaction (Verified 04/02/20 15:11) VERY THIN STEROID SKIN WILL REMOVE SKIN IF ON TOO LONG bee Allergy (Uncoded 04/02/20 15:11) Hives Home Medications: Ambulatory Orders Medication Instructions Recorded Dexamethasone 3 mg PO DAILY 03/02/17 Melatonin 6 mg PO QHS 01/03/20 Senna [Senokot] 1 tab PO BID 01/03/20 Sertraline HCl [Zoloft] 150 mg PO QHS 01/03/20 Acetaminophen [Tylenol Extra 1,000 mg PO BID PRN 01/08/20 Strength] Famotidine 20 mg PO BID 01/08/20 Levetiracetam [Keppra] 750 mg PO BID 01/08/20 Multivitamins,Therapeutic 1 tab PO DAILY 01/08/20 [Multivitamin] Lorazepam 1 mg PO QHS 07/04/20 Calcium Carbonate [Tums] 1,000 mg PO BIDCM 07/15/20 Cholecalciferol (VIT D3) [Vitamin 2,000 unit PO DAILY 07/15/20 D3] Enoxaparin [Lovenox] 30 mg SQ BID 07/15/20 Colistimethate [Coly-Mycin M] 150 mg IV Q12 07/22/20 Iron Polysaccharide Complex 150 mg PO DAILYCM 07/22/20 [Ferrex 150] Oxycodone [Oxyir] 10 mg PO Q4H PRN PRN 3 Days #30 tab 07/22/20 Tigecycline [Tygacil] 50 mg IV Q12 07/22/20 Surgical History: dilatation and curettage, - - skin graft LLE. 01/04/20 - Surgical preparation left anterolateral leg with incision and drainage and evacuation and excisional debridement traumatic hematoma (33 cm2). Brain tumor resection 10/2015. 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 Maternal History Items: COPD - of COPD Review of Systems Constitutional: Denies: Chills, Fever, Weight Change HEENT: Denies: Head Aches, Sinus Congestion, Sinus Drainage Cardiovascular: Denies: Chest Pain, Palpitations Respiratory: Denies: Cough, Shortness of breath at rest, Sputum production Gastrointestinal: Denies: Abdominal Pain, Nausea, Vomiting Genitourinary: Denies: Dysuria Musculoskeletal: Denies: Joint Pain, Joint Tenderness Skin: Denies: Rash, Wounds Neurological: Denies: Numbness, Tingling, Focal weakness Psychiatric: Denies: Anxiety, Depression, Homicidal Ideations, Suicidal Ideations Hematologic/ Lymphatic: Denies: Easy Bruising, Easy Bleeding VTE Information - Inpt Only VTE Present on Admission: No VTE Mechan Device Prophylaxis: Knee High DANELLE Hose VTE Pharm Prophylaxis ordered?: Yes Patient Problems: Active and Suspected Problems (Last Reviewed 07/15/20 @ 19:[address] Lisa Ridley, DO) Debility (Acute) Traumatic hematoma of right lower leg with infection (Acute) Wrist fracture, bilateral (Acute) - Physical Exam Vitals/I&O's: Vital Signs Temp Pulse Resp BP Pulse Ox 98.7 F 76 16 115/71 93 07/22/20 14:53 07/22/20 14:53 07/22/20 14:53 07/22/20 14:53 07/22/20 14:53 Oxygen Delivery Method Room Air Weight: 88.2 kg Body Mass Index (BMI) 29.5 General: Alert, Oriented x3, Cooperative HEENT: Atraumatic, PERRLA, EOMI, Normocephalic Neck: Supple, No JVD, Negative Carotid Bruits Lungs: Clear to auscultation, Normal air movement Cardiovascular: Regular rate, No murmurs Abdomen: Bowel Sounds Present, Soft, Non Tender Extremities: No edema, Capillary Refill Less than 3 Seconds, - - Bilateral upper extremities splinted. Bilateral lower extremities dressed. Skin: No rashes, No breakdown Musculoskeletal: No Tenderness to Palpation of Joints or Extremities Neurological: Cranial nerves II-XII grossly intact Psych/Mental Status: Normal Affect, Appropriate Laboratory Results 07/22/20 17:15: COVID-19 (JANET) Pending Current Medications Acetaminophen (Acetaminophen 500 Mg Tablet) 1,000 mg PO BID PRN PRN Reason: Pain Score 1-10 Calcium Carbonate (Calcium Carbonate 500 Mg Tablet) [facility] Last Admin: 07/22/20 18:08 Dose: 1,000 mg Documented by: Cholecalciferol (Cholecalciferol (Vit D3) 1,000 Unit (25mcg)) 2,000 unit PO DAILY [facility] Dexamethasone (Dexamethasone 2 Mg Tablet) [facility] Enoxaparin Sodium (Enoxaparin 30 Mg/0.3 Ml Syringe) 30 mg SC BID [facility] Stop: 07/30/20 23:59 Last Admin: 07/22/20 18:09 Dose: 30 mg Documented by: Famotidine (Famotidine 20 Mg Tablet) 20 mg PO BID [facility] Last Admin: 07/22/20 18:08 Dose: 20 mg Documented by: Heparin Sodium (Beef Lung) (Heparin Pf Lock 10 Units/Ml 50 Units/5 Ml Syringe) 50 units IV UD PRN PRN Reason: PICC Line Heparin Flush Colistimethate Sodium 150 mg/ (Sodium Chloride) 50 mls @ 100 mls/hr IV Q12H [facility] Tigecycline 50 mg/ Sodium (Chloride) 105 mls @ 105 mls/hr IV Q12H [facility] Levetiracetam (Levetiracetam 750 Mg Tablet) 750 mg PO BID [facility] Last Admin: 07/22/20 18:08 Dose: 750 mg Documented by: Lorazepam (Lorazepam 1 Mg Tablet) 1 mg PO QHS [facility] Melatonin (Melatonin 3 Mg Tablet) 6 mg PO QHS [facility] Multivitamins (Multivitamins,Therapeutic Tablet) [facility] tablet [facility] Nutritional Formula (Lactose Free) (Ensure Enlive 120 Ml Liquid) 120 ml PO 4X/DAY [facility] Last Admin: 07/22/20 18:18 Dose: 120 ml Documented by: Oxycodone HCl (Oxycodone 5 Mg Tablet) 10 mg PO Q4H PRN PRN PRN Reason: Pain Score 6-10 Polysaccharide Iron Complex (Iron Polysaccharide Complex 150 Mg Capsule) 150 mg PO DAILYCM [facility] Senna (Senna Tablet) 1 tablet PO BID [facility] Last Admin: 07/22/20 18:09 Dose: 1 tablet Documented by: Sertraline HCl (Sertraline 50 Mg Tablet) 150 mg PO QHS [facility] Sodium Chloride (0.9% Saline Lock 10 Ml Syringe) 10 - 40 ml IV UD PRN PRN Reason: Open End PICC Flush Sodium Chloride (0.9 % Nacl (Sterile) Posiflush 10 Ml) 10 - 40 ml IV UD PRN PRN Reason: Port access or dressing change Tuberculin PPD (Tuberculin,Purif.Prot.Deriv. 50 Tu/Ml Vial) 5 tu ID X1 ONE Stop: 07/23/20 10:01 Tuberculin PPD (Tuberculin,Purif.Prot.Deriv. 50 Tu/Ml Vial) 5 tu ID X1 ONE Stop: 07/30/20 10:01 Assessment/Plan All Active Problems (Last Reviewed 07/15/20 @ 19:[address] Lisa Ridley, DO) Debility (Acute) Traumatic hematoma of right lower leg with infection (Acute) Hematoma of right lower extremity (Acute) Abscess of right lower extremity (Acute) Wrist fracture, bilateral (Acute) 60 year old female with below past medical history hospitalized for right lower extremity wound/abscess requiring debridement, 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 Debility - PT/OT. Pain - Tylenol 1000MG Q6H PRN pain (1-5), Oxycodone 10MG Q4H PRN pain (6-10). Bowel - Miralax 17GM daily, Senna/colace 2 tablets BID, MOM 30ML daily PRN, Dulcolax 10MG AR daily PRN. Adult immunization - Administer Prevnar 13, Pneumovax 23, Fluzone, COVID19 vaccine, as appropriate. DVT prophylaxis - Lovenox 30MG SC BID. Calcium deficiency - TUMS 1000MG BID. Vitamin D deficiency - D3 2000IU daily. XDR Minerva Luis right lower extremity infection - Colistimethate 150MG IV Q12H, Tigecycline 50MG IV Q12H, consult Dr. Funez. Glioblastoma Multiforme - Dexamethasone 3MG daily. Nutrition - MVI daily, Ensure Enlive 120ML 4x/day. GERD - Famotidine 20MG BID. Iron deficiency anemia - Ferrex 150MG daily. Seizure disorder - Keppra 750MG BID. 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 Insomnia -Melatonin 6MG QHS. Depression - Sertraline 150MG QHS, stable chronic skilled nursing use, GDR not recommended.
[2020-07-22] MEDS: LORazepam 1 MG Tablet PO (21:54)
[2020-07-22] MEDS: Sertraline 50 MG Tablet 150 MG PO (21:56)
[2020-07-22] MEDS: MELATONIN 3 MG TABLET 6 MG PO (21:56)
[2020-07-23 05:00] VITALS: BP 148/56; PULSE 70; RESP 16; TEMP 37.2; O2SAT 94
[2020-07-23 05:14] LABS: Absolute Lymphocyte Count 0.89 X10^3/uL (0.83-4.51); Absolute Neutrophil Count 4.3 X10^3/uL (2.0-7.7); Basophil# 0.04 X10^3/uL; Basophil% 0.6 % (0-1); Eosinophil# 0.03 X10^3/uL; Eosinophils% 0.5 % (0-5); Hematocrit 27.7 % (37-47); Hemoglobin 8.8 g/dL (12.0-15.0); Lymphocyte # 0.89 X10^3/ul (4.0); Lymphocyte % 14.1 % (19-41); Mean Corp Hgb Conc 31.8 g/dL (32-36); Mean Corpuscular Volume 97.5 fL (81-99); Monocyte# 0.87 X10^3/uL; Monocyte% 13.8 % (0-10); NRBC Flagged by Analyzer 0 % (0-5); Neutrophil # 4.27 X10^3/uL (2.7-7.7); Neutrophil % 67.7 % (47-70); Platelet Count 253 K/mm3 (150-450); RBC Distribution Width CV 13.7 % (11.6-14.6); RBC Distribution Width SD 49.1 fl (35.1-43.9); Red Blood Count 2.84 M/mm3 (4.2-5.4); White Blood Count 6.3 K/mm3 (4.4-11.0)
[2020-07-23 05:34] LABS: Anion Gap 7 (5-15); BUN 25 mg/dL (7-18); BUN/Creat Ratio 32.6 RATIO (10-20); Calcium,Total 8.4 mg/dL (8.5-10.1); Chloride 101 mmol/L (98-107); Creatinine, Serum 0.77 mg/dL (0.55-1.02); EST Glomerular Filtration Rate 81 mL/min (>60); Est Glom Filt Rate - Afr Amer 98 mL/min (>60); Estimated Creatinine Clearance 76.42 ml/min; Glucose 76 mg/dL (74-106); Potassium 3.8 mmol/L (3.5-5.1); Sodium Level 136 mmol/L (136-145)
[2020-07-23] MEDS: Senna/Docusate Sodium 1 Tablet 2 TABLET PO ×2 (06:41→17:46)
[2020-07-23] MEDS: Polyethylene Glycol 3350 17 GM PACKET PO (06:41)
[2020-07-23] MEDS: Menthol/Lanolin/Calamine/Znox 113 GM Tube 1 APPLIC TOPICAL ×2 (06:45→22:33)
[2020-07-23] MEDS: Nystatin Powder 15gm Bottle 1 APPLIC TOPICAL ×2 (06:45→22:40)
[2020-07-23] MEDS: Famotidine 20 MG Tablet PO ×2 (06:46→17:45)
[2020-07-23] MEDS: levETIRAcetam 750 MG Tablet PO ×2 (06:46→17:45)
[2020-07-23] MEDS: Enoxaparin 30 MG/0.3 ML Syringe SC ×2 (06:47→17:43)
[2020-07-23] MEDS: Iron Polysaccharide Complex 150 MG CAPSULE PO (10:01)
[2020-07-23] MEDS: dexAMETHasone 2 MG TABLET 3 MG PO (10:01)
[2020-07-23] MEDS: Acetaminophen 500 MG Tablet 1000 MG PO (10:01)
[2020-07-23] MEDS: Tuberculin,Purif.prot.deriv. 50 TU/ML Vial 5 ML ID (10:02)
[2020-07-23] MEDS: Multivitamins,Therapeutic Tablet 1 TABLET PO (10:02)
--- NOTE | 2020-07-23 10:06 | PCA ---
While doing 9am rounds patient laying sideways in bed trying to get up. bed alarm is on and in place. Patient says she can get up herself Reminded patient to ring for assistance.changed call light to the touch pad. reoriented to call light and to ring. nurse updated
[2020-07-23] MEDS: Calcium Carbonate 500 MG Tablet 1000 MG PO ×2 (10:16→17:43)
[2020-07-23] MEDS: 0.9% Saline Lock 10 ML Syringe IV ×2 (10:58→22:46)
[2020-07-23] MEDS: oxyCODONE 5 MG Tablet 10 MG PO (11:01)
--- NOTE | 2020-07-23 11:43 | NURSING ---
wound photo: right anterior lower leg
--- NOTE | 2020-07-23 11:45 | NURSING ---
wound photo: right posterior lower leg
--- NOTE | 2020-07-23 11:46 | NURSING ---
wound photo: left lower leg
--- NOTE | 2020-07-23 16:05 | PCM.PN.ID ---
Patient Problems: Active and Suspected Problems (Last Reviewed 07/15/20 @ 19:[address] Lisa Ridley, DO) Debility (Acute) Traumatic hematoma of right lower leg with infection (Acute) Wrist fracture, bilateral (Acute) Subjective: Feeling better, no fever, no n/v/d - Physical Exam Vitals/I&O's: Vital Signs Temp Pulse Resp BP Pulse Ox 98.9 F 70 16 148/56 H 94 07/23/20 05:00 07/23/20 05:00 07/23/20 05:00 07/23/20 05:00 07/23/20 05:00 Oxygen Delivery Method Room Air Weight: 88.2 kg Body Mass Index (BMI) 29.5 Intake and Output for Last 24 Hours 07/21/20 07/22/20 07/23/20 23:59 23:59 23:59 Intake Total 530 / 530 724.75 / 724.75 Balance 530 / 530 724.75 / 724.75 General: Alert, Cooperative, No apparent distress Lungs: Clear to auscultation, Normal air movement Cardiovascular: Regular rate, Regular Rhythm Abdomen: Soft, Non Tender, Non-Distended Skin: Ulcer/ Wound - reviewed photos Laboratory Results 07/22/20 17:15: COVID-19 (JAENT) Pending 07/23/20 04:10: WBC 6.3, RBC 2.84 L, Hgb 8.8 L, Hct 27.7 L, MCV 97.5, MCH 31.0, MCHC 31.8 L, RDW Std Deviation 49.1 H, RDW Coeff of Marylu 13.7, Plt Count 253, MPV 10.0, Immature Gran % (Auto) 3.300 H, Neut % (Auto) 67.7, Lymph % (Auto) 14.1 L, Robeson % (Auto) 13.8 H, Eos % (Auto) 0.5, Baso % (Auto) 0.6, Absolute Neuts (auto) 4.3, Absolute Lymphs (auto) 0.89, Nucleated RBC % 0 07/23/20 04:10: Sodium 136, Potassium 3.8, Chloride 101, Carbon Dioxide 28.0, Anion Gap 7, BUN 25 H, Creatinine 0.77, Estim Creat Clear Calc 76.42, Est GFR (MDRD) Af Amer 98, Est GFR (MDRD) Non-Af 81, BUN/Creatinine Ratio 32.6 H, Glucose 76, Calcium 8.4 L Current Medications Acetaminophen (Acetaminophen 500 Mg Tablet) 1,000 mg PO Q6H PRN PRN PRN Reason: Pain Score 1-5 Last Admin: 07/23/20 10:01 Dose: 1,000 mg Documented by: Bisacodyl (Bisacodyl 10 Mg Suppository) 10 mg RECTAL DAILY PRN PRN Reason: Constipation Calamine/Phenol (Menthol/Lanolin/Calamine/Znox 113 Gm Tube) 1 applic TOPICAL 0600,2200 [facility]; Protocol Last Admin: 07/23/20 06:45 Dose: 1 applicatio Documented by: Calcium Carbonate (Calcium Carbonate 500 Mg Tablet) [facility] Last Admin: 07/23/20 10:16 Dose: 1,000 mg Documented by: Cholecalciferol (Cholecalciferol (Vit D3) 1,000 Unit (25mcg)) 2,000 unit PO DAILY [facility] Last Admin: 07/23/20 06:47 Dose: 2,000 unit Documented by: Dexamethasone (Dexamethasone 2 Mg Tablet) [facility] Last Admin: 07/23/20 10:01 Dose: 3 mg Documented by: Enoxaparin Sodium (Enoxaparin 30 Mg/0.3 Ml Syringe) 30 mg SC BID [facility] Stop: 07/30/20 23:59 Last Admin: 07/23/20 06:47 Dose: 30 mg Documented by: Famotidine (Famotidine 20 Mg Tablet) 20 mg PO BID [facility] Last Admin: 07/23/20 06:46 Dose: 20 mg Documented by: Heparin Sodium (Beef Lung) (Heparin Pf Lock 10 Units/Ml 50 Units/5 Ml Syringe) 50 units IV UD PRN PRN Reason: PICC Line Heparin Flush Heparin Sodium (Beef Lung) (Heparin Pf Lock 10 Units/Ml 50 Units/5 Ml Syringe) 50 units IV UD PRN PRN Reason: PICC Line Heparin Flush Hydrocortisone (Hydrocortisone 2.5% Crm) 1 applic TOPICAL TID PRN PRN; Protocol PRN Reason: RASH/TOPICAL IRRITATION Colistimethate Sodium 150 mg/ (Sodium Chloride) 50 mls @ 100 mls/hr IV Q12H [facility] Last Infusion: 07/23/20 10:46 Dose: Infused Documented by: Tigecycline 50 mg/ Sodium (Chloride) 105 mls @ 105 mls/hr IV Q12H [facility] Last Infusion: 07/23/20 12:39 Dose: Infused Documented by: Sodium Chloride () 250 mls @ 15 mls/hr IV .[id number] PRN PRN Reason: Saline Flush Last Infusion: 07/23/20 13:37 Dose: 0 mls/hr Documented by: Sodium Chloride () 250 mls @ 15 mls/hr IV .[id number] PRN PRN Reason: Additional IVPB Infusion Levetiracetam (Levetiracetam 750 Mg Tablet) 750 mg PO BID [facility] Last Admin: 07/23/20 06:46 Dose: 750 mg Documented by: Lorazepam (Lorazepam 1 Mg Tablet) 1 mg PO QHS [facility] Last Admin: 07/22/20 21:54 Dose: 1 mg Documented by: Magnesium Hydroxide (Magnesium Hydroxide 30 Ml Udc) 30 ml PO DAILY PRN PRN Reason: Constipation Melatonin (Melatonin 3 Mg Tablet) 6 mg PO QHS [facility] Last Admin: 07/22/20 21:56 Dose: 6 mg Documented by: Multivitamins (Multivitamins,Therapeutic Tablet) [facility] Last Admin: 07/23/20 10:02 Dose: 1 tablet Documented by: Nutritional Formula (Nutritional Supplement (Rodger) Packet) [facility] Nutritional Formula (Lactose Free) (Ensure Enlive 120 Ml Liquid) 120 ml PO 4X/DAY [facility] Last Admin: 07/23/20 11:47 Dose: 120 ml Documented by: Nystatin (Nystatin Powder 15gm Bottle) 1 applic TOPICAL 0600,2200 [facility]; Protocol Last Admin: 07/23/20 06:45 Dose: 1 applicatio Documented by: Oxycodone HCl (Oxycodone 5 Mg Tablet) 10 mg PO Q4H PRN PRN PRN Reason: Pain Score 6-10 Last Admin: 07/23/20 11:01 Dose: 10 mg Documented by: Polyethylene Glycol (Polyethylene Glycol 3350 17 Gm Packet) 17 gm PO DAILY [facility] Last Admin: 07/23/20 06:41 Dose: 17 gm Documented by: Polysaccharide Iron Complex (Iron Polysaccharide Complex 150 Mg Capsule) [facility] Last Admin: 07/23/20 10:01 Dose: 150 mg Documented by: Senna/Docusate Sodium (Senna/Docusate Sodium 1 Tablet) 2 tablet PO BID [facility] Last Admin: 07/23/20 06:41 Dose: 2 tablet Documented by: Sertraline HCl (Sertraline 50 Mg Tablet) 150 mg PO QHS [facility] Last Admin: 07/22/20 21:56 Dose: 150 mg Documented by: Sodium Chloride (0.9% Saline Lock 10 Ml Syringe) 10 - 40 ml IV UD PRN PRN Reason: Open End PICC Flush Last Admin: 07/23/20 10:58 Dose: 10 ml Documented by: Sodium Chloride (0.9 % Nacl (Sterile) Posiflush 10 Ml) 10 - 40 ml IV UD PRN PRN Reason: Port access or dressing change Sodium Chloride (0.9% Saline Lock 10 Ml Syringe) 10 - 40 ml IV UD PRN PRN Reason: Open End PICC Flush Sodium Chloride (0.9 % Nacl (Sterile) Posiflush 10 Ml) 10 - 40 ml IV UD PRN PRN Reason: Port access or dressing change Tuberculin PPD (Tuberculin,Purif.Prot.Deriv. 50 Tu/Ml Vial) 5 tu ID X1 ONE Stop: 07/30/20 10:01 Medical Necessity - Tobacco Use Smoking Status: Current every day smoker Tobacco Use: Cigarettes Route of nutrition/ use of supplements: [] Nutritional Intake: [] IV Site: [] Valente Catheter: [] - Assessment/Plan Antibiotics: [] Assessment/Plan: [] Active and Suspected Problems (Last Reviewed 07/15/20 @ 19:[address] Lisa Ridley, DO) Debility (Acute) Traumatic hematoma of right lower leg with infection (Acute) Wrist fracture, bilateral (Acute) XDR AcB RLE deep wound infection - now s/p OR 07/16/[address] Moya. Surg cx also with klebs. Abx broadened to colistin and tigecycline, [place] [facility] [place]y, tige, and colistin. Plan on one week of abx at TCU. Will follow
--- NOTE | 2020-07-23 16:50 | CHAPLAIN ---
Type of Pastoral Visit _x__ Initial Visit ___ Follow-up Visit ___ On-call Visit ___ General Patient Visit ___ Spiritual Assessment ___ Family Conference ___ Bereavement ___ Rapid Response ___ Code Blue ___ Other (describe below) Pastoral Care Referral From _x__ Patient ___ Family ___ Nurse ___ Physician ___ Iron Worker Apprentice ___ Service Writer ___ Other (describe below) Sacrament/Intervention _x__ Active listening ___ Anointing ___ Yazdanism ___ Bereavement ___ Communion _x__ Kaitlin exploration ___ ___ Life review _x__ Prayer ___ Reconciliation ___ Sacrament of Sick _x__ Supportive presence ___ Wedding ___ Other (describe below) Pastoral Comments
[2020-07-23] MEDS: LORazepam 1 MG Tablet PO (22:29)
[2020-07-23] MEDS: Sertraline 50 MG Tablet 150 MG PO (22:41)
[2020-07-23] MEDS: MELATONIN 3 MG TABLET 6 MG PO (22:41)
[2020-07-24 04:59] VITALS: BP 150/73; PULSE 60; RESP 16; TEMP 36.8; O2SAT 95
[2020-07-24] MEDS: Nystatin Powder 15gm Bottle 1 APPLIC TOPICAL ×2 (05:01→20:55)
[2020-07-24] MEDS: Menthol/Lanolin/Calamine/Znox 113 GM Tube 1 APPLIC TOPICAL ×2 (05:01→20:55)
[2020-07-24] MEDS: Polyethylene Glycol 3350 17 GM PACKET PO (05:01)
[2020-07-24] MEDS: Senna/Docusate Sodium 1 Tablet 2 TABLET PO ×2 (05:02→17:38)
[2020-07-24] MEDS: Famotidine 20 MG Tablet PO ×2 (05:02→17:38)
[2020-07-24] MEDS: levETIRAcetam 750 MG Tablet PO ×2 (05:02→17:38)
[2020-07-24] MEDS: Enoxaparin 30 MG/0.3 ML Syringe SC ×2 (05:02→17:36)
[2020-07-24] MEDS: Multivitamins,Therapeutic Tablet 1 TABLET PO (09:44)
[2020-07-24] MEDS: Iron Polysaccharide Complex 150 MG CAPSULE PO (09:44)
[2020-07-24] MEDS: Calcium Carbonate 500 MG Tablet 1000 MG PO ×2 (09:45→17:36)
[2020-07-24] MEDS: dexAMETHasone 2 MG TABLET 3 MG PO (09:45)
[2020-07-24] MEDS: oxyCODONE 5 MG Tablet 10 MG PO (09:56)
[2020-07-24 10:00] VITALS: PULSE 73; RESP 18; O2SAT 92
[2020-07-24] MEDS: 0.9% Saline Lock 10 ML Syringe IV ×3 (10:44→22:13)
[2020-07-24] MEDS: Acetaminophen 500 MG Tablet 1000 MG PO (11:26)
--- NOTE | 2020-07-24 13:42 | NURSING ---
Resident and family updated on current COVID status of the unit.
[2020-07-24 13:52] VITALS: BP 90/59; PULSE 73; RESP 16; TEMP 36.2; O2SAT 93
--- NOTE | 2020-07-24 16:19 | CASEMGMT ---
Social Work Discussed code status with pt but pt referred SW to dtr for answers. Spoke with dtr - dtr stated her mom would prefer DNR-CCA, no intubation. Nursing notified. Dtr is POA, which is on file. Dtr provided additional information on DC plans. Pt will return living with her sister in [place], at address listed. Pt will have close to 24/7 care, but does need to tx, toilet and ambulate independently. Sister and hired aide can assist with bathing/dressing if needed. Sister has small house with 5 steps to enter. Dtr requests pt not DC home with wound vac because she is confused and pulled out tubing multiple times a day and the [facility] nurse had to come out. Dtr inquired about Medicaid application. Emailed spencer. Discussed Passport services as well. [facility] Dtr expressed understanding and appreciative of assistance. Will continue to follow. Annette Kaplan, LEAF SUCKER [employer]ATOR [employer]
--- NOTE | 2020-07-24 16:58 | NURSING ---
PT FAMILY UPDATED BY SERGIORESIDENT CARE AID.
[2020-07-24 18:06] VITALS: BP 99/55; PULSE 65
[2020-07-24] MEDS: LORazepam 1 MG Tablet PO (20:50)
[2020-07-24] MEDS: Sertraline 50 MG Tablet 150 MG PO (20:51)
[2020-07-24] MEDS: MELATONIN 3 MG TABLET 6 MG PO (20:51)
[2020-07-25] MEDS: LORazepam 1 MG Tablet PO (01:09)
[2020-07-25 05:00] VITALS: BP 131/79; PULSE 67; RESP 16; TEMP 36.8; O2SAT 97
[2020-07-25] MEDS: Polyethylene Glycol 3350 17 GM PACKET PO (07:07)
[2020-07-25] MEDS: Nystatin Powder 15gm Bottle 1 APPLIC TOPICAL ×2 (07:07→21:40)
[2020-07-25] MEDS: Enoxaparin 30 MG/0.3 ML Syringe SC ×2 (07:07→17:33)
[2020-07-25] MEDS: levETIRAcetam 750 MG Tablet PO ×2 (07:09→17:36)
[2020-07-25] MEDS: Senna/Docusate Sodium 1 Tablet 2 TABLET PO ×2 (07:09→17:37)
[2020-07-25] MEDS: Famotidine 20 MG Tablet PO ×2 (07:10→17:36)
[2020-07-25] MEDS: Menthol/Lanolin/Calamine/Znox 113 GM Tube 1 APPLIC TOPICAL ×2 (07:10→21:39)
[2020-07-25] MEDS: dexAMETHasone 2 MG TABLET 3 MG PO (09:28)
[2020-07-25] MEDS: Multivitamins,Therapeutic Tablet 1 TABLET PO (09:29)
[2020-07-25] MEDS: Calcium Carbonate 500 MG Tablet 1000 MG PO ×2 (09:29→17:32)
[2020-07-25] MEDS: Iron Polysaccharide Complex 150 MG CAPSULE PO (09:29)
[2020-07-25] MEDS: oxyCODONE 5 MG Tablet 10 MG PO ×2 (09:36→23:25)
[2020-07-25] MEDS: 0.9% Saline Lock 10 ML Syringe IV ×3 (10:45→17:58)
--- NOTE | 2020-07-25 11:18 | NURSING ---
AMY CHRISTIANSON/WOUND NURSE CHANGED WOUND VAC THIS MORNING.
--- NOTE | 2020-07-25 13:43 | PCM.PN.SRG ---
Patient Problems: Active and Suspected Problems (Last Reviewed 07/15/20 @ 19:[address] Lisa Ridley, DO) Debility (Acute) Traumatic hematoma of right lower leg with infection (Acute) Wrist fracture, bilateral (Acute) Subjective: Postop #9 Patient resting comfortably in bed. - Physical Exam Vitals/I&O's: Vital Signs Temp Pulse Resp BP Pulse Ox 98.3 F 67 16 131/79 H 97 07/25/20 05:00 07/25/20 05:00 07/25/20 05:00 07/25/20 05:00 07/25/20 05:00 Oxygen Delivery Method Room Air Weight: 194 lb 7.163 oz Body Mass Index (BMI) 29.5 Intake and Output for Last 24 Hours 07/23/20 07/24/20 07/25/20 23:59 23:59 23:59 Intake Total 979.00 / 979.00 1313.75 / 1313.75 622.5 / 622.5 Balance 979.00 / 979.00 1313.75 / 1313.75 622.5 / 622.5 General: No apparent distress Oral: Moist Mucosa Lungs: Normal air movement Cardiovascular: Regular rate Extremities: Capillary Refill Less than 3 Seconds, Edema Skin: Ulcer/ Wound - Right leg ulcer wound VAC dressing in place. Photos viewed. Left leg with skin tears are stable. Musculoskeletal: Tenderness Neurological: Cranial nerves II-XII grossly intact Psych/Mental Status: Normal Affect Laboratory Results 07/22/20 17:15: COVID-19 (JANET) Not Detected Current Medications Acetaminophen (Acetaminophen 500 Mg Tablet) 1,000 mg PO Q6H PRN PRN PRN Reason: Pain Score 1-5 Last Admin: 07/24/20 11:26 Dose: 1,000 mg Documented by: Bisacodyl (Bisacodyl 10 Mg Suppository) 10 mg RECTAL DAILY PRN PRN Reason: Constipation Calamine/Phenol (Menthol/Lanolin/Calamine/Znox 113 Gm Tube) 1 applic TOPICAL 0600,2200 [facility]; Protocol Last Admin: 07/25/20 07:10 Dose: 1 applicatio Documented by: Calcium Carbonate (Calcium Carbonate 500 Mg Tablet) 1,000 mg PO BIDCM [facility] Last Admin: 07/25/20 09:29 Dose: 1,000 mg Documented by: Cholecalciferol (Cholecalciferol (Vit D3) 1,000 Unit (25mcg)) 2,000 unit PO DAILY [facility] Last Admin: 07/25/20 07:09 Dose: 2,000 unit Documented by: Dexamethasone (Dexamethasone 2 Mg Tablet) 3 mg PO DAILYCM [facility] Last Admin: 07/25/20 09:28 Dose: 3 mg Documented by: Enoxaparin Sodium (Enoxaparin 30 Mg/0.3 Ml Syringe) 30 mg SC BID [facility] Stop: 07/30/20 23:59 Last Admin: 07/25/20 07:07 Dose: 30 mg Documented by: Famotidine (Famotidine 20 Mg Tablet) 20 mg PO BID [facility] Last Admin: 07/25/20 07:10 Dose: 20 mg Documented by: Heparin Sodium (Beef Lung) (Heparin Pf Lock 10 Units/Ml 50 Units/5 Ml Syringe) 50 units IV UD PRN PRN Reason: PICC Line Heparin Flush Heparin Sodium (Beef Lung) (Heparin Pf Lock 10 Units/Ml 50 Units/5 Ml Syringe) 50 units IV UD PRN PRN Reason: PICC Line Heparin Flush Hydrocortisone (Hydrocortisone 2.5% Crm) 1 applic TOPICAL TID PRN PRN; Protocol PRN Reason: RASH/TOPICAL IRRITATION Colistimethate Sodium 150 mg/ (Sodium Chloride) 50 mls @ 100 mls/hr IV Q12H [facility] Last Infusion: 07/25/20 11:20 Dose: Infused Documented by: Tigecycline 50 mg/ Sodium (Chloride) 105 mls @ 105 mls/hr IV Q12H [facility] Last Infusion: 07/25/20 12:47 Dose: Infused Documented by: Sodium Chloride () 250 mls @ 15 mls/hr IV .[id number] PRN PRN Reason: Saline Flush Last Infusion: 07/25/20 00:55 Dose: 0 mls/hr Documented by: Sodium Chloride () 250 mls @ 15 mls/hr IV .[id number] PRN PRN Reason: Additional IVPB Infusion Levetiracetam (Levetiracetam 750 Mg Tablet) 750 mg PO BID [facility] Last Admin: 07/25/20 07:09 Dose: 750 mg Documented by: Lorazepam (Lorazepam 1 Mg Tablet) 1 mg PO QHS [facility] Last Admin: 07/24/20 20:50 Dose: 1 mg Documented by: Lorazepam (Lorazepam 1 Mg Tablet) 1 mg PO Q6H PRN PRN PRN Reason: RESTLESSNESS Last Admin: 07/25/20 01:09 Dose: 1 mg Documented by: Magnesium Hydroxide (Magnesium Hydroxide 30 Ml Udc) 30 ml PO DAILY PRN PRN Reason: Constipation Melatonin (Melatonin 3 Mg Tablet) 6 mg PO QHS [facility] Last Admin: 07/24/20 20:51 Dose: 6 mg Documented by: Multivitamins ([facility]) [facility] Admin: 07/25/20 09:29 Dose: 1 tablet Documented by: Nutritional Formula ([facility]utritional Supplement (Rodger) Packet) [facility] Last Admin: 07/25/20 09:27 Dose: 1 packet Documented by: Nutritional Formula (Lactose Free) (Ensure Enlive 120 Ml Liquid) 120 ml PO 4X/DAY [facility] Last Admin: 07/25/20 11:27 Dose: Not Given Documented by: Nystatin (Nystatin Powder 15gm Bottle) 1 applic TOPICAL 0600,2200 [facility]; Protocol Last Admin: 07/25/20 07:07 Dose: 1 applicatio Documented by: Oxycodone HCl (Oxycodone 5 Mg Tablet) 10 mg PO Q4H PRN PRN PRN Reason: Pain Score 6-10 Last Admin: 07/25/20 09:36 Dose: 10 mg Documented by: Polyethylene Glycol (Polyethylene Glycol 3350 17 Gm Packet) 17 gm PO DAILY [facility] Last Admin: 07/25/20 07:07 Dose: 17 gm Documented by: Polysaccharide Iron Complex (Iron Polysaccharide Complex 150 Mg Capsule) [facility] Last Admin: 07/25/20 09:29 Dose: 150 mg Documented by: Senna/Docusate Sodium (Senna/Docusate Sodium 1 Tablet) 2 tablet PO BID [facility] Last Admin: 07/25/20 07:09 Dose: 2 tablet Documented by: Sertraline HCl (Sertraline 50 Mg Tablet) 150 mg PO QHS [facility] Last Admin: 07/24/20 20:51 Dose: 150 mg Documented by: Sodium Chloride (0.9% Saline Lock 10 Ml Syringe) 10 - 40 ml IV UD PRN PRN Reason: Open End PICC Flush Last Admin: 07/25/20 11:23 Dose: 40 ml Documented by: Sodium Chloride (0.9 % Nacl (Sterile) Posiflush 10 Ml) 10 - 40 ml IV UD PRN PRN Reason: Port access or dressing change Sodium Chloride (0.9% Saline Lock 10 Ml Syringe) 10 - 40 ml IV UD PRN PRN Reason: Open End PICC Flush Sodium Chloride (0.9 % Nacl (Sterile) Posiflush 10 Ml) 10 - 40 ml IV UD PRN PRN Reason: Port access or dressing change Tuberculin PPD (Tuberculin,Purif.Prot.Deriv. 50 Tu/Ml Vial) 5 tu ID [id number] ONE Stop: 07/30/20 10:01 Medical Necessity - Tobacco Use Smoking Status: Current every day smoker Tobacco Use: Cigarettes Assessment/Plan All Active Problems (Last Reviewed 07/15/20 @ 19:[address] Lisa Ridley, DO) Debility (Acute) Traumatic hematoma of right lower leg with infection (Acute) Hematoma of right lower extremity (Acute) Abscess of right lower extremity (Acute) Wrist fracture, bilateral (Acute) 1. Traumatic infected necrotic hematoma abscess right anterior leg. 2. Chronic falls at home. 3. Smoker. 4. Glioblastoma multiforme status post craniectomy and chemoradiation on long-term dexamethasone and Keppra. 5. Multiple skin tears upper and lower extremities from her recent fall. 6. Recent bilateral wrist fractures, splinted. 7. Acute postoperative anemia from expected blood loss. Wounds are stable. No active bleeding. Wound VAC dressing changed earlier today. Operative cultures show Acinetobacter baumannii and Klebsiella oxytoca. She is on Tigecycline and Colistimethate. ID is consulted. Prealbumin was 13.9 on 07/17/20. Encourage nutritional supplementation with protein to help the healing process. After discharge from TCU, [facility]. If a plateau develops during the healing process, will proceed with delayed closure with skin grafting. Encouraged patient to stop smoking as it may have deleterious effects on wound healing. Hgb 8.8 today, up from 8.5 yesterday. She has anemia of chronic disease, acute on chronic, from expected blood loss.
[2020-07-25 15:14] VITALS: BP 99/66; PULSE 79; RESP 16; TEMP 36.6; O2SAT 94
--- NOTE | 2020-07-25 15:45 | PCM.PN.RX ---
<MarieDonna - Last Filed: 07/25/20 15:45> Progress Note - Pharmacy Subjective: TCU Admission Objective: Allergies adhesive tape Adverse Reaction (Verified 04/02/20 15:11) VERY THIN STEROID SKIN WILL REMOVE SKIN IF ON TOO LONG bee Allergy (Uncoded 04/02/20 15:11) Hives Current Medications Generic Name Dose Route Start Last Admin Trade Name Freq PRN Reason Stop Dose Admin Acetaminophen 1,000 mg 07/22/20 21:22 07/24/20 11:26 Acetaminophen 500 Mg Tablet PO 1,000 mg Q6H PRN PRN Administration Pain Score 1-5 Bisacodyl 10 mg 07/22/20 21:22 Bisacodyl 10 Mg Suppository RECTAL DAILY PRN Constipation Calamine/Phenol 1 applic 07/23/20 06:00 07/25/20 07:10 Menthol/Lanolin/Calamine/Znox 113 Gm Tube TOPICAL 1 applicatio 0600,2200 [facility] Administration Protocol Calcium Carbonate 1,000 mg 07/22/20 17:00 07/25/20 09:29 Calcium Carbonate 500 Mg Tablet PO 1,000 mg BIDCM [facility] Administration Cholecalciferol 2,000 unit 07/23/20 06:00 07/25/20 07:09 Cholecalciferol (Vit D3) 1,000 Unit (25mcg) PO 2,000 unit DAILY [facility] Administration Dexamethasone 3 mg 07/23/20 08:00 07/25/20 09:28 Dexamethasone 2 Mg Tablet PO 3 mg DAILYCM [facility] Administration Enoxaparin Sodium 30 mg 07/22/20 18:00 07/25/20 07:07 Enoxaparin 30 Mg/0.3 Ml Syringe SC 07/30/20 23:59 30 mg BID [facility] Administration Famotidine 20 mg 07/22/20 18:00 07/25/20 07:10 Famotidine 20 Mg Tablet PO 20 mg BID [facility] Administration Heparin Sodium (Beef Lung) 50 units 07/22/20 18:59 Heparin Pf Lock 10 Units/Ml 50 Units/5 Ml Syringe IV UD PRN PICC Line Heparin Flush Heparin Sodium (Beef Lung) 50 units 07/22/20 21:20 Heparin Pf Lock 10 Units/Ml 50 Units/5 Ml Syringe IV UD PRN PICC Line Heparin Flush Hydrocortisone 1 applic 07/23/20 08:04 Hydrocortisone 2.5% Crm TOPICAL TID PRN PRN RASH/TOPICAL IRRITATION Protocol Colistimethate Sodium 150 mg/ 50 mls @ 100 mls/hr 07/22/20 22:00 07/25/20 11:20 Sodium Chloride IV Infused Q12H [facility] Infusion Tigecycline 50 mg/ Sodium 105 mls @ 105 mls/hr 07/22/20 22:30 07/25/20 12:47 Chloride IV Infused Q12H [facility] Infusion Sodium Chloride 250 mls @ 15 mls/hr 07/22/20 21:34 07/25/20 00:55 IV 0 mls/hr .[id number] PRN Infusion Saline Flush Sodium Chloride 250 mls @ 15 mls/hr 07/22/20 21:34 IV .[id number] PRN Additional IVPB Infusion Levetiracetam 750 mg 07/22/20 18:00 07/25/20 07:09 Levetiracetam 750 Mg Tablet PO 750 mg BID [facility] Administration Lorazepam 1 mg 07/22/20 22:00 07/24/20 20:50 Lorazepam 1 Mg Tablet PO 1 mg QHS [facility] Administration Lorazepam 0.5 mg 07/25/20 14:13 Lorazepam 0.5 Mg Tablet PO Q6H PRN PRN RESTLESSNESS Magnesium Hydroxide 30 ml 07/22/20 21:21 Magnesium Hydroxide 30 Ml Udc PO DAILY PRN Constipation Melatonin 6 mg 07/22/20 22:00 07/24/20 20:51 Melatonin 3 Mg Tablet PO 6 mg QHS [facility] Administration Multivitamins 1 tablet 07/23/20 08:00 07/25/20 09:29 Multivitamins,Therapeutic Tablet PO 1 tablet DAILYCM [facility] Administration Nutritional Formula 1 packet 07/23/20 17:00 07/25/20 09:27 Nutritional Supplement (Rodger) Packet PO 1 packet BIDCM [facility] Administration Nutritional Formula (Lactose Free) 120 ml 07/22/20 17:00 07/25/20 11:27 Ensure Enlive 120 Ml Liquid PO Not Given 4X/DAY [facility] Nystatin 1 applic 07/23/20 06:00 07/25/20 07:07 Nystatin Powder 15gm Bottle TOPICAL 1 applicatio 0600,2200 [facility] Administration Protocol Oxycodone HCl 10 mg 07/22/20 15:30 07/25/20 09:36 Oxycodone 5 Mg Tablet PO 10 mg Q4H PRN PRN Administration Pain Score 6-10 Polyethylene Glycol 17 gm 07/23/20 06:00 07/25/20 07:07 Polyethylene Glycol 3350 17 Gm Packet PO 17 gm DAILY [facility] Administration Polysaccharide Iron Complex 150 mg 07/23/20 08:00 07/25/20 09:29 Iron Polysaccharide Complex 150 Mg Capsule PO 150 mg DAILYCM [facility] Administration Senna/Docusate Sodium 2 tablet 07/23/20 06:00 07/25/20 07:09 Senna/Docusate Sodium 1 Tablet PO 2 tablet BID [facility] Administration Sertraline HCl 150 mg 07/22/20 22:00 07/24/20 20:51 Sertraline 50 Mg Tablet PO 150 mg QHS [facility] Administration Sodium Chloride 10 - 40 ml 07/22/20 18:59 07/25/20 11:23 0.9% Saline Lock 10 Ml Syringe IV 40 ml UD PRN Administration Open End PICC Flush Sodium Chloride 10 - 40 ml 07/22/20 18:59 0.9 % Nacl (Sterile) Posiflush 10 Ml IV UD PRN Port access or dressing change Sodium Chloride 10 - 40 ml 07/22/20 21:20 0.9% Saline Lock 10 Ml Syringe IV UD PRN Open End PICC Flush Sodium Chloride 10 - 40 ml 07/22/20 21:20 0.9 % Nacl (Sterile) Posiflush 10 Ml IV UD PRN Port access or dressing change Tuberculin PPD 5 tu 07/30/20 10:00 Tuberculin,Purif.Prot.Deriv. 50 Tu/Ml Vial ID 07/30/20 10:01 X1 ONE Problem List (Last Reviewed 07/15/20 @ 19:[address] Lisa Ridley, DO) Debility (Acute) Traumatic hematoma of right lower leg with infection (Acute) Insomnia (Chronic) Wrist fracture, bilateral (Acute) GERD (gastroesophageal reflux disease) (Chronic) Seizure disorder (Chronic) Hypertension (Chronic) Anxiety (Chronic) Chronic pain (Chronic) Glioblastoma multiforme (Chronic) Wound, open, lower limb with complication (Chronic) Vital Signs Temp Pulse Resp BP Pulse Ox 97.9 F 79 16 99/66 94 07/25/20 15:14 07/25/20 15:14 07/25/20 15:14 07/25/20 15:14 07/25/20 15:14 Oxygen Delivery Method Room Air Weight: 88.2 kg Body Mass Index (BMI) 29.5 Sodium 136 mmol/L (136-145) 07/23/20 04:10 Potassium 3.8 mmol/L (3.5-5.1) 07/23/20 04:10 Chloride 101 mmol/L (98-107) 07/23/20 04:10 Carbon Dioxide 28.0 mmol/L (21.0-32.0) 07/23/20 04:10 Anion Gap 7 (5-15) 07/23/20 04:10 BUN 25 mg/dL (7-18) H 07/23/20 04:10 Creatinine 0.77 mg/dL (0.55-1.02) 07/23/20 04:10 Est GFR (MDRD) Af Amer 98 mL/min (>60) 07/23/20 04:10 Est GFR (MDRD) Non-Af 81 mL/min (>60) 07/23/20 04:10 BUN/Creatinine Ratio 32.6 RATIO (10-20) H 07/23/20 04:10 Glucose 76 mg/dL (74-106) 07/23/20 04:10 Assessment/Plan: 1. Pain: acetaminophen 1000mg PO Q6H PRN pain 1-5 or fever and oxycodone 10mg PO Q4H PRN pain 6-10/10. Please continue to monitor for increased pain, PRN usage, constipation, and respiratory depression. *2. XDR: A. Bajasmineii right lower extremity infection: Colistimethate 150mg IV Q12H, Tigecycline 50mg IV Q12H. Please continue to monitor temperature, WBC, microbiology as clinically appropriate, GI side effects. Please consider adding a stop date. Thanks. 3. DVT prophylaxis: enoxaparin 30mg SC BID thru 07/30/20. Please continue to monitor for S/S of bleeding/DVT, hemoglobin (last 8.8 g/dL), platelets (last 253,000), and renal function. 4. Glioblastoma Multiforme: dexamethasone 3mg PO daily with meals. Please continue to monitor for S/S of infection and blood glucose as clinically appropriate. 5. GERD: famotidine 20mg PO BID. Please continue to monitor for S/S of GERD. 6. Iron deficiency anemia: Ferrex 150mg PO daily. Please continue to monitor hemoglobin (last 8.8 g/dL) and for dark stools. 7. Seizure disorder: levetiracetam 750mg PO BID. Please continue to monitor for S/S of seizure. 8. Insomnia: melatonin 6mg PO QHS. Please continue to monitor for S/S of insomnia. 9. Overall nutrition/vitamin deficiencies: calcium carbonate 1000mg PO BIDCM, cholecalciferol 2000units PO daily, and multivitamin 1T PO DAILYCM. Please continue to monitor serum calcium levels as clinically appropriate (last 8.4 mg/dL) and vitamin D levels. Psychotropic Medications: 1. Anxiety: lorazepam 1mg PO QHS and 0.5mg PO Q6H PRN restlessness. Please see physician note regarding GDR. Please continue to monitor for restlessness. 2. Depression: sertraline 150mg PO QHS. Please see physician note regarding GDR. Please continue to monitor for GI side effects. Unnecessary Medications: None Bowel Regimen: Miralax 17gm PO daily, senna/docusate 2T PO BID, MOM 30ml PO daily PRN constipation, and [id number] rectal daily PRN constipation. Please continue to monitor for constipation and PRN usage. Date of Note:: 07/25/20 - Provider Comments Provider responsibility: Provider responsible to enter orders to implement recommendations <Regis Kirk Chi - Last Filed: 07/25/20 16:11> Progress Note - Pharmacy Subjective: [] Objective: Allergies adhesive tape Adverse Reaction (Verified 04/02/20 15:11) VERY THIN STEROID SKIN WILL REMOVE SKIN IF ON TOO LONG bee Allergy (Uncoded 04/02/20 15:11) Hives Current Medications Generic Name Dose Route Start Last Admin Trade Name Freq PRN Reason Stop Dose Admin Acetaminophen 1,000 mg 07/22/20 21:22 07/24/20 11:26 Acetaminophen 500 Mg Tablet PO 1,000 mg Q6H PRN PRN Administration Pain Score 1-5 Bisacodyl 10 mg 07/22/20 21:22 Bisacodyl 10 Mg Suppository RECTAL DAILY PRN Constipation Calamine/Phenol 1 applic 07/23/20 06:00 07/25/20 07:10 Menthol/Lanolin/Calamine/Znox 113 Gm Tube TOPICAL 1 applicatio 0600,2200 [facility] Administration Protocol Calcium Carbonate 1,000 mg 07/22/20 17:00 07/25/20 09:29 Calcium Carbonate 500 Mg Tablet PO 1,000 mg BIDCM [facility] Administration Cholecalciferol 2,000 unit 07/23/20 06:00 07/25/20 07:09 Cholecalciferol (Vit D3) 1,000 Unit (25mcg) PO 2,000 unit DAILY [facility] Administration Dexamethasone 3 mg 07/23/20 08:00 07/25/20 09:28 Dexamethasone 2 Mg Tablet PO 3 mg DAILYCM [facility] Administration Enoxaparin Sodium 30 mg 07/22/20 18:00 07/25/20 07:07 Enoxaparin 30 Mg/0.3 Ml Syringe SC 07/30/20 23:59 30 mg BID [facility] Administration Famotidine 20 mg 07/22/20 18:00 07/25/20 07:10 Famotidine 20 Mg Tablet PO 20 mg BID [facility] Administration Heparin Sodium (Beef Lung) 50 units 07/22/20 18:59 Heparin Pf Lock 10 Units/Ml 50 Units/5 Ml Syringe IV UD PRN PICC Line Heparin Flush Heparin Sodium (Beef Lung) 50 units 07/22/20 21:20 Heparin Pf Lock 10 Units/Ml 50 Units/5 Ml Syringe IV UD PRN PICC Line Heparin Flush Hydrocortisone 1 applic 07/23/20 08:04 Hydrocortisone 2.5% Crm TOPICAL TID PRN PRN RASH/TOPICAL IRRITATION Protocol Colistimethate Sodium 150 mg/ 50 mls @ 100 mls/hr 07/22/20 22:00 07/25/20 11:20 Sodium Chloride IV Infused Q12H [facility] Infusion Tigecycline 50 mg/ Sodium 105 mls @ 105 mls/hr 07/22/20 22:30 07/25/20 12:47 Chloride IV Infused Q12H [facility] Infusion Sodium Chloride 250 mls @ 15 mls/hr 07/22/20 21:34 07/25/20 00:55 IV 0 mls/hr .[id number] PRN Infusion Saline Flush Sodium Chloride 250 mls @ 15 mls/hr 07/22/20 21:34 IV .[id number] PRN Additional IVPB Infusion Levetiracetam 750 mg 07/22/20 18:00 07/25/20 07:09 Levetiracetam 750 Mg Tablet PO 750 mg BID [facility] Administration Lorazepam 1 mg 07/22/20 22:00 07/24/20 20:50 Lorazepam 1 Mg Tablet PO 1 mg QHS [facility] Administration Lorazepam 0.5 mg 07/25/20 14:13 Lorazepam 0.5 Mg Tablet PO Q6H PRN PRN RESTLESSNESS Magnesium Hydroxide 30 ml 07/22/20 21:21 Magnesium Hydroxide 30 Ml Udc PO DAILY PRN Constipation Melatonin 6 mg 07/22/20 22:00 07/24/20 20:51 Melatonin 3 Mg Tablet PO 6 mg QHS [facility] Administration Multivitamins 1 tablet 07/23/20 08:00 07/25/20 09:29 Multivitamins,Therapeutic Tablet PO 1 tablet DAILYCM [facility] Administration Nutritional Formula 1 packet 07/23/20 17:00 07/25/20 09:27 Nutritional Supplement (Rodger) Packet PO 1 packet BIDCM [facility] Administration Nutritional Formula (Lactose Free) 120 ml 07/22/20 17:00 07/25/20 11:27 Ensure Enlive 120 Ml Liquid PO Not Given 4X/DAY [facility] Nystatin 1 applic 07/23/20 06:00 07/25/20 07:07 Nystatin Powder 15gm Bottle TOPICAL 1 applicatio 0600,2200 [facility] Administration Protocol Oxycodone HCl 10 mg 07/22/20 15:30 07/25/20 09:36 Oxycodone 5 Mg Tablet PO 10 mg Q4H PRN PRN Administration Pain Score 6-10 Polyethylene Glycol 17 gm 07/23/20 06:00 07/25/20 07:07 Polyethylene Glycol 3350 17 Gm Packet PO 17 gm DAILY [facility] Administration Polysaccharide Iron Complex 150 mg 07/23/20 08:00 07/25/20 09:29 Iron Polysaccharide Complex 150 Mg Capsule PO 150 mg DAILY [facility] Administration Senna/Docusate Sodium 2 tablet 07/23/20 06:00 07/25/20 07:09 Senna/Docusate Sodium 1 Tablet PO 2 tablet BID [facility] Administration Sertraline HCl 150 mg 07/22/20 22:00 07/24/20 20:51 Sertraline 50 Mg Tablet PO 150 mg QHS [facility] Administration Sodium Chloride 10 - 40 ml 07/22/20 18:59 07/25/20 11:23 0.9% Saline Lock 10 Ml Syringe IV 40 ml UD PRN Administration Open End PICC Flush Sodium Chloride 10 - 40 ml 07/22/20 18:59 0.9 % Nacl (Sterile) Posiflush 10 Ml IV UD PRN Port access or dressing change Sodium Chloride 10 - 40 ml 07/22/20 21:20 0.9% Saline Lock 10 Ml Syringe IV UD PRN Open End PICC Flush Sodium Chloride 10 - 40 ml 07/22/20 21:20 0.9 % Nacl (Sterile) Posiflush 10 Ml IV UD PRN Port access or dressing change Tuberculin PPD 5 tu 07/30/20 10:00 Tuberculin,Purif.Prot.Deriv. 50 Tu/Ml Vial ID 07/30/20 10:01 X1 ONE Problem List (Last Reviewed 07/15/20 @ 19:[address] Lisa Ridley, DO) Debility (Acute) Traumatic hematoma of right lower leg with infection (Acute) Insomnia (Chronic) Wrist fracture, bilateral (Acute) GERD (gastroesophageal reflux disease) (Chronic) Seizure disorder (Chronic) Hypertension (Chronic) Anxiety (Chronic) Chronic pain (Chronic) Glioblastoma multiforme (Chronic) Wound, open, lower limb with complication (Chronic) Vital Signs Temp Pulse Resp BP Pulse Ox 97.9 F 79 16 99/66 94 07/25/20 15:14 07/25/20 15:14 07/25/20 15:14 07/25/20 15:14 07/25/20 15:14 Oxygen Delivery Method Room Air Weight: 88.2 kg Body Mass Index (BMI) 29.5 Sodium 136 mmol/L (136-145) 07/23/20 04:10 Potassium 3.8 mmol/L (3.5-5.1) 07/23/20 04:10 Chloride 101 mmol/L (98-107) 07/23/20 04:10 Carbon Dioxide 28.0 mmol/L (21.0-32.0) 07/23/20 04:10 Anion Gap 7 (5-15) 07/23/20 04:10 BUN 25 mg/dL (7-18) H 07/23/20 04:10 Creatinine 0.77 mg/dL (0.55-1.02) 07/23/20 04:10 Est GFR (MDRD) Af Amer 98 mL/min (>60) 07/23/20 04:10 Est GFR (MDRD) Non-Af 81 mL/min (>60) 07/23/20 04:10 BUN/Creatinine Ratio 32.6 RATIO (10-20) H 07/23/20 04:10 Glucose 76 mg/dL (74-106) 07/23/20 04:10 Assessment/Plan: Psychotropic Medications: Unnecessary Medications: Bowel Regimen: - Provider Comments Provider responsibility: Provider responsible to enter orders to implement recommendations Provider Comments to Recommendations by Pharmacy: Agree
[2020-07-25] MEDS: MELATONIN 3 MG TABLET 6 MG PO (21:40)
[2020-07-25] MEDS: Sertraline 50 MG Tablet 150 MG PO (21:41)
[2020-07-26 04:38] VITALS: BP 128/71; PULSE 65; RESP 18; TEMP 36.6; O2SAT 95
[2020-07-26] MEDS: Menthol/Lanolin/Calamine/Znox 113 GM Tube 1 APPLIC TOPICAL ×2 (04:42→20:10)
[2020-07-26] MEDS: Polyethylene Glycol 3350 17 GM PACKET PO (04:43)
[2020-07-26] MEDS: Famotidine 20 MG Tablet PO ×2 (04:44→17:18)
[2020-07-26] MEDS: levETIRAcetam 750 MG Tablet PO ×2 (04:44→17:18)
[2020-07-26] MEDS: Senna/Docusate Sodium 1 Tablet 2 TABLET PO ×2 (04:44→17:19)
[2020-07-26] MEDS: Nystatin Powder 15gm Bottle 1 APPLIC TOPICAL ×2 (04:45→20:14)
[2020-07-26] MEDS: Enoxaparin 30 MG/0.3 ML Syringe SC ×2 (04:45→17:19)
[2020-07-26] MEDS: Multivitamins,Therapeutic Tablet 1 TABLET PO (08:20)
[2020-07-26] MEDS: Iron Polysaccharide Complex 150 MG CAPSULE PO (08:20)
[2020-07-26] MEDS: Calcium Carbonate 500 MG Tablet 1000 MG PO ×2 (08:20→17:18)
[2020-07-26] MEDS: dexAMETHasone 2 MG TABLET 3 MG PO (08:21)
[2020-07-26 10:00] VITALS: PULSE 71; RESP 16; O2SAT 95
[2020-07-26] MEDS: 0.9% Saline Lock 10 ML Syringe IV ×2 (11:14→21:57)
[2020-07-26 15:42] VITALS: BP 107/71; PULSE 68; RESP 18; TEMP 36.1; O2SAT 93
[2020-07-26] MEDS: LORazepam 0.5 MG Tablet PO (15:43)
--- NOTE | 2020-07-26 15:50 | PCA ---
patient was getting irritated thinking it was am when it was 230 pm wanting to know where her breakfast was. i has oriented her back to what time it was and date. she became even more irritated with staff. reported to RN.
[2020-07-26] MEDS: MELATONIN 3 MG TABLET 6 MG PO (20:08)
[2020-07-26] MEDS: Sertraline 50 MG Tablet 150 MG PO (20:08)
[2020-07-26] MEDS: oxyCODONE 5 MG Tablet 10 MG PO (20:09)
[2020-07-26] MEDS: LORazepam 1 MG Tablet PO (20:09)
--- NOTE | 2020-07-26 20:56 | NURSING ---
Patient yelling out, this nurse ran into room. Found patient laying opposite way, head hanging out of bed almost to floor. Feet and head raised up. Called for assistance to get patient into bed correctly. x3 assisted patient to correct position. Patient yelling profanity at staff. Wound vac and IV pump alarming. IV pump fixed. Applied more draping to wound vac. Air stopped leaking. Smudger called for sitter if available. At this time, Ayaan BECKER is in room with patient 1:1.
[2020-07-27 04:31] VITALS: BP 122/71; PULSE 65; RESP 18; TEMP 36.5; O2SAT 97
[2020-07-27] MEDS: Polyethylene Glycol 3350 17 GM PACKET PO (06:02)
[2020-07-27] MEDS: levETIRAcetam 750 MG Tablet PO ×2 (06:03→17:25)
[2020-07-27] MEDS: Famotidine 20 MG Tablet PO ×2 (06:03→17:25)
[2020-07-27] MEDS: Senna/Docusate Sodium 1 Tablet 2 TABLET PO ×2 (06:03→17:24)
[2020-07-27] MEDS: Enoxaparin 30 MG/0.3 ML Syringe SC ×2 (06:03→17:24)
[2020-07-27] MEDS: 0.9% Saline Lock 10 ML Syringe IV ×2 (06:31→09:53)
[2020-07-27] MEDS: Nystatin Powder 15gm Bottle 1 APPLIC TOPICAL ×2 (08:08→21:10)
[2020-07-27] MEDS: Iron Polysaccharide Complex 150 MG CAPSULE PO (08:09)
[2020-07-27] MEDS: dexAMETHasone 2 MG TABLET 3 MG PO (08:09)
[2020-07-27] MEDS: Menthol/Lanolin/Calamine/Znox 113 GM Tube 1 APPLIC TOPICAL ×2 (08:09→21:09)
[2020-07-27] MEDS: Multivitamins,Therapeutic Tablet 1 TABLET PO (08:10)
[2020-07-27] MEDS: Calcium Carbonate 500 MG Tablet 1000 MG PO ×2 (08:11→16:30)
[2020-07-27 14:47] VITALS: BP 118/78; PULSE 63; RESP 14; TEMP 36.1; O2SAT 93
[2020-07-27] MEDS: LORazepam 0.5 MG Tablet PO (17:23)
[2020-07-27] MEDS: oxyCODONE 5 MG Tablet 10 MG PO (21:03)
[2020-07-27] MEDS: LORazepam 1 MG Tablet PO (21:03)
[2020-07-27] MEDS: MELATONIN 3 MG TABLET 6 MG PO (21:04)
[2020-07-27] MEDS: Sertraline 50 MG Tablet 150 MG PO (21:04)
[2020-07-27 21:58] VITALS: O2SAT 97
[2020-07-28 02:42] VITALS: BP 129/75; PULSE 60; RESP 18; TEMP 37; O2SAT 97
[2020-07-28] MEDS: Menthol/Lanolin/Calamine/Znox 113 GM Tube 1 APPLIC TOPICAL ×2 (05:37→23:25)
[2020-07-28] MEDS: Nystatin Powder 15gm Bottle 1 APPLIC TOPICAL ×2 (05:37→23:26)
[2020-07-28] MEDS: Senna/Docusate Sodium 1 Tablet 2 TABLET PO ×2 (05:38→17:49)
[2020-07-28] MEDS: Famotidine 20 MG Tablet PO ×2 (05:38→17:49)
[2020-07-28] MEDS: Polyethylene Glycol 3350 17 GM PACKET PO (05:38)
[2020-07-28] MEDS: levETIRAcetam 750 MG Tablet PO ×2 (05:38→17:50)
[2020-07-28] MEDS: Enoxaparin 30 MG/0.3 ML Syringe SC ×2 (05:38→17:49)
[2020-07-28] MEDS: Multivitamins,Therapeutic Tablet 1 TABLET PO (09:39)
[2020-07-28] MEDS: dexAMETHasone 2 MG TABLET 3 MG PO (09:39)
[2020-07-28] MEDS: Iron Polysaccharide Complex 150 MG CAPSULE PO (09:39)
[2020-07-28] MEDS: oxyCODONE 5 MG Tablet 10 MG PO (09:45)
[2020-07-28 10:00] VITALS: PULSE 84; RESP 16; O2SAT 93
[2020-07-28] MEDS: 0.9% Saline Lock 10 ML Syringe IV ×2 (10:18→11:01)
--- NOTE | 2020-07-28 13:31 | NURSING ---
wound photo: right anterior lower leg
--- NOTE | 2020-07-28 13:31 | NURSING ---
wound photo: right posterior lower leg
[2020-07-28 14:05] VITALS: BP 112/66; PULSE 81; RESP 22; TEMP 36.3; O2SAT 94
--- NOTE | 2020-07-28 14:16 | NURSING ---
AMY CHRISTIANSON/WOUND NURSE CHANGED WOUND VAC TODAY.
--- NOTE | 2020-07-28 16:04 | PN.ID_ITS ---
Patient Problems: Active and Suspected Problems (Last Reviewed 07/15/20 @ 19:[address] Lisa Ridley, DO) Debility (Acute) Traumatic hematoma of right lower leg with infection (Acute) Wrist fracture, bilateral (Acute) Subjective: Moans with dressing changes per wound nurse, no fever - Physical Exam Vitals/I&O's: Vital Signs Temp Pulse Resp BP Pulse Ox 97.4 F L 81 22 H 112/66 94 07/28/20 14:05 07/28/20 14:05 07/28/20 14:05 07/28/20 14:05 07/28/20 14:05 Oxygen Delivery Method Room Air Weight: 88.2 kg Body Mass Index (BMI) 29.5 Intake and Output for Last 24 Hours 07/26/20 07/27/20 07/28/20 23:59 23:59 23:59 Intake Total 1583 / 1583 1396.75 / 1396.75 635 / 635 Balance 1583 / 1583 1396.75 / 1396.75 635 / 635 General: No apparent distress, Lethargic Skin: Ulcer/ Wound - reviewed photos Microbiology Past 72 Hours 07/28/20 11:35 Nasal Secretion SARS-CoV-2 Antigen (Rapid) - Final Current Medications Acetaminophen (Acetaminophen 500 Mg Tablet) 1,000 mg PO Q6H PRN PRN PRN Reason: Pain Score 1-5 Last Admin: 07/24/20 11:26 Dose: 1,000 mg Documented by: Bisacodyl (Bisacodyl 10 Mg Suppository) 10 mg RECTAL DAILY PRN PRN Reason: Constipation Calamine/Phenol (Menthol/Lanolin/Calamine/Znox 113 Gm Tube) 1 applic TOPICAL 0600,2200 [facility]; Protocol Last Admin: 07/28/20 05:37 Dose: 1 applicatio Documented by: Calcium Carbonate (Calcium Carbonate 500 Mg Tablet) [facility] Last Admin: 07/28/20 09:54 Dose: Not Given Documented by: Cholecalciferol (Cholecalciferol (Vit D3) 1,000 Unit (25mcg)) 2,000 unit PO DAILY [facility] Last Admin: 07/28/20 05:38 Dose: 2,000 unit Documented by: Dexamethasone (Dexamethasone 2 Mg Tablet) [facility] Last Admin: 07/28/20 09:39 Dose: 3 mg Documented by: Enoxaparin Sodium (Enoxaparin 30 Mg/0.3 Ml Syringe) 30 mg SC BID [facility] Stop: 07/30/20 23:59 Last Admin: 07/28/20 05:38 Dose: 30 mg Documented by: Famotidine (Famotidine 20 Mg Tablet) 20 mg PO BID [facility] Last Admin: 07/28/20 05:38 Dose: 20 mg Documented by: Heparin Sodium (Beef Lung) (Heparin Pf Lock 10 Units/Ml 50 Units/5 Ml Syringe) 50 units IV UD PRN PRN Reason: PICC Line Heparin Flush Last Admin: 07/25/20 18:08 Dose: 50 units Documented by: Heparin Sodium (Beef Lung) (Heparin Pf Lock 10 Units/Ml 50 Units/5 Ml Syringe) 50 units IV UD PRN PRN Reason: PICC Line Heparin Flush Hydrocortisone (Hydrocortisone 2.5% Crm) 1 applic TOPICAL TID PRN PRN; Protocol PRN Reason: RASH/TOPICAL IRRITATION Colistimethate Sodium 150 mg/ (Sodium Chloride) 50 mls @ 100 mls/hr IV Q12H [facility] Last Infusion: 07/28/20 11:02 Dose: Infused Documented by: Tigecycline 50 mg/ Sodium (Chloride) 105 mls @ 105 mls/hr IV Q12H [facility] Last Infusion: 07/28/20 12:27 Dose: Infused Documented by: Sodium Chloride () 250 mls @ 15 mls/hr IV .[id number] PRN PRN Reason: Saline Flush Last Infusion: 07/27/20 13:12 Dose: 0 mls/hr Documented by: Sodium Chloride () 250 mls @ 15 mls/hr IV .[id number] PRN PRN Reason: Additional IVPB Infusion Levetiracetam (Levetiracetam 750 Mg Tablet) 750 mg PO BID [facility] Last Admin: 07/28/20 05:38 Dose: 750 mg Documented by: Lorazepam (Lorazepam 1 Mg Tablet) 1 mg PO QHS [facility] Last Admin: 07/27/20 21:03 Dose: 1 mg Documented by: Lorazepam (Lorazepam 0.5 Mg Tablet) 0.5 mg PO Q6H PRN PRN PRN Reason: RESTLESSNESS Last Admin: 07/27/20 17:23 Dose: 0.5 mg Documented by: Magnesium Hydroxide (Magnesium Hydroxide 30 Ml Udc) 30 ml PO DAILY PRN PRN Reason: Constipation Melatonin (Melatonin 3 Mg Tablet) 6 mg PO QHS [facility] Last Admin: 07/27/20 21:04 Dose: 6 mg Documented by: Multivitamins (Multivitamins,Therapeutic Tablet) [facility] Last Admin: 07/28/20 09:39 Dose: 1 tablet Documented by: Nutritional Formula (Nutritional Supplement (Rodger) Packet) [facility] Last Admin: 07/28/20 09:38 Dose: 1 packet Documented by: Nutritional Formula (Lactose Free) (Ensure Enlive 120 Ml Liquid) 120 ml PO 4X/DAY [facility] Last Admin: 07/28/20 11:09 Dose: 120 ml Documented by: Nystatin (Nystatin Powder 15gm Bottle) 1 applic TOPICAL 0600,2200 [facility]; Protocol Last Admin: 07/28/20 05:37 Dose: 1 applicatio Documented by: Oxycodone HCl (Oxycodone 5 Mg Tablet) 10 mg PO Q4H PRN PRN PRN Reason: Pain Score 6-10 Last Admin: 07/28/20 09:45 Dose: 10 mg Documented by: Polyethylene Glycol (Polyethylene Glycol 3350 17 Gm Packet) 17 gm PO DAILY [facility] Last Admin: 07/28/20 05:38 Dose: 17 gm Documented by: Polysaccharide Iron Complex (Iron Polysaccharide Complex 150 Mg Capsule) 150 [facility] Last Admin: 07/28/20 09:39 Dose: 150 mg Documented by: Senna/Docusate Sodium (Senna/Docusate Sodium 1 Tablet) 2 tablet PO BID [facility] Last Admin: 07/28/20 05:38 Dose: 2 tablet Documented by: Sertraline HCl (Sertraline 50 Mg Tablet) 150 mg PO QHS [facility] Last Admin: 07/27/20 21:04 Dose: 150 mg Documented by: Sodium Chloride (0.9% Saline Lock 10 Ml Syringe) 10 - 40 ml IV UD PRN PRN Reason: Open End PICC Flush Last Admin: 07/28/20 11:01 Dose: 40 ml Documented by: Sodium Chloride (0.9 % Nacl (Sterile) Posiflush 10 Ml) 10 - 40 ml IV UD PRN PRN Reason: Port access or dressing change Sodium Chloride (0.9% Saline Lock 10 Ml Syringe) 10 - 40 ml IV UD PRN PRN Reason: Open End PICC Flush Sodium Chloride (0.9 % Nacl (Sterile) Posiflush 10 Ml) 10 - 40 ml IV UD PRN PRN Reason: Port access or dressing change Tuberculin PPD (Tuberculin,Purif.Prot.Deriv. 50 Tu/Ml Vial) 5 tu ID X1 ONE Stop: 07/30/20 10:01 Medical Necessity - Tobacco Use Smoking Status: Current every day smoker Tobacco Use: Cigarettes Route of nutrition/ use of supplements: [] Nutritional Intake: [] IV Site: [] Valente Catheter: [] - Assessment/Plan Antibiotics: [] Assessment/Plan: [] Active and Suspected Problems (Last Reviewed 07/15/20 @ 19:[address] Lisa Ridley DO) Debility (Acute) Traumatic hematoma of right lower leg with infection (Acute) Wrist fracture, bilateral (Acute) XDR AcB RLE deep wound infection - now s/p OR 07/16/[address] Moya. Surg cx also with klebs. Abx broadened to colistin and tigecycline, [place] [facility] [place]y, tige, and colistin. Will stop abx today. D/w wound care. Will follow as needed
[2020-07-28] MEDS: Calcium Carbonate 500 MG Tablet 1000 MG PO (17:50)
--- NOTE | 2020-07-28 18:34 | NURSING ---
pt lethargic today, difficult to do therapy. dr gee updated, new order to decrease PRN & HS ativan.
[2020-07-28] MEDS: MELATONIN 3 MG TABLET 6 MG PO (23:25)
[2020-07-28] MEDS: LORazepam 0.5 MG Tablet PO (23:25)
[2020-07-28] MEDS: Sertraline 50 MG Tablet 150 MG PO (23:26)
[2020-07-29] MEDS: Polyethylene Glycol 3350 17 GM PACKET PO (04:45)
[2020-07-29] MEDS: Menthol/Lanolin/Calamine/Znox 113 GM Tube 1 APPLIC TOPICAL ×2 (04:48→21:53)
[2020-07-29] MEDS: levETIRAcetam 750 MG Tablet PO ×2 (04:48→17:44)
[2020-07-29] MEDS: Enoxaparin 30 MG/0.3 ML Syringe SC ×2 (04:48→17:45)
[2020-07-29] MEDS: Senna/Docusate Sodium 1 Tablet 2 TABLET PO ×2 (04:49→17:45)
[2020-07-29] MEDS: Nystatin Powder 15gm Bottle 1 APPLIC TOPICAL ×2 (04:49→21:53)
[2020-07-29] MEDS: Famotidine 20 MG Tablet PO ×2 (04:49→17:44)
[2020-07-29 04:50] VITALS: BP 110/73; PULSE 63; RESP 18; TEMP 36.6; O2SAT 94
[2020-07-29] MEDS: Calcium Carbonate 500 MG Tablet 1000 MG PO ×2 (09:29→17:44)
[2020-07-29] MEDS: Multivitamins,Therapeutic Tablet 1 TABLET PO (09:29)
[2020-07-29] MEDS: Iron Polysaccharide Complex 150 MG CAPSULE PO (09:29)
--- NOTE | 2020-07-29 10:16 | NURSING ---
ALL CARE GIVEN IN ROOM DUE TO PT IN PRECAUTIONS FOR KLEBSIELLA AND ACINETOBACTER.
[2020-07-29] MEDS: dexAMETHasone 2 MG TABLET 3 MG PO (10:27)
[2020-07-29] MEDS: oxyCODONE 5 MG Tablet 10 MG PO (13:08)
[2020-07-29 14:00] VITALS: BP 132/85; PULSE 71; RESP 16; TEMP 36.7; O2SAT 98
--- NOTE | 2020-07-29 16:48 | CHAPLAIN ---
Type of Pastoral Visit ___ Initial Visit _x__ Follow-up Visit ___ On-call Visit ___ General Patient Visit ___ Spiritual Assessment ___ Family Conference ___ Bereavement ___ Rapid Response ___ Code Blue ___ Other (describe below) Pastoral Care Referral From _x__ Patient ___ Family ___ Nurse ___ Physician ___ Artificial Snow Making Machine Operator ___ Dietary Aid ___ Other (describe below) Sacrament/Intervention _x__ Active listening ___ Anointing ___ Alevism ___ Bereavement ___ Communion _x__ Kaitlin exploration ___ _x__ Life review _x__ Prayer ___ Reconciliation ___ Sacrament of Sick _x__ Supportive presence ___ Wedding ___ Other (describe below) Pastoral Comments patient received a phone call from her who is incarcerated during this visit; assisted pt in answering the phone and receiving the call; held phone and introduced self to caller; read devotional for patient who had her book with her; presence given
[2020-07-29] MEDS: LORazepam 0.5 MG Tablet PO (21:52)
[2020-07-29] MEDS: MELATONIN 3 MG TABLET 6 MG PO (21:53)
[2020-07-29] MEDS: Sertraline 50 MG Tablet 150 MG PO (21:54)
[2020-07-30 04:54] VITALS: BP 143/100; PULSE 65; RESP 18; TEMP 36.6; O2SAT 99
[2020-07-30] MEDS: Menthol/Lanolin/Calamine/Znox 113 GM Tube 1 APPLIC TOPICAL ×2 (04:55→21:44)
[2020-07-30] MEDS: Senna/Docusate Sodium 1 Tablet 2 TABLET PO ×2 (04:56→17:56)
[2020-07-30] MEDS: Polyethylene Glycol 3350 17 GM PACKET PO (04:56)
[2020-07-30] MEDS: Enoxaparin 30 MG/0.3 ML Syringe SC ×2 (04:56→18:02)
[2020-07-30] MEDS: levETIRAcetam 750 MG Tablet PO ×2 (04:57→17:54)
[2020-07-30] MEDS: Nystatin Powder 15gm Bottle 1 APPLIC TOPICAL ×2 (04:57→21:45)
[2020-07-30] MEDS: Famotidine 20 MG Tablet PO ×2 (04:57→17:56)
[2020-07-30 05:45] LABS: Absolute Lymphocyte Count 0.76 X10^3/uL (0.83-4.51); Absolute Neutrophil Count 5.4 X10^3/uL (2.0-7.7); Basophil# 0.03 X10^3/uL; Basophil% 0.4 % (0-1); Eosinophil# 0.04 X10^3/uL; Eosinophils% 0.6 % (0-5); Hematocrit 32.3 % (37-47); Hemoglobin 9.9 g/dL (12.0-15.0); Lymphocyte # 0.76 X10^3/ul (4.0); Lymphocyte % 10.6 % (19-41); Mean Corp Hgb Conc 30.7 g/dL (32-36); Mean Corpuscular Hgb 30.2 pg (27.0-32.0); Mean Corpuscular Volume 98.5 fL (81-99); Mean Platelet Vol. 9.8 fl (6.2-12.0); Monocyte# 0.69 X10^3/uL; Monocyte% 9.6 % (0-10); NRBC Flagged by Analyzer 0 % (0-5); Neutrophil # 5.38 X10^3/uL (2.7-7.7); Platelet Count 273 K/mm3 (150-450); RBC Distribution Width SD 51.2 fl (35.1-43.9); Red Blood Count 3.28 M/mm3 (4.2-5.4); White Blood Count 7.2 K/mm3 (4.4-11.0)
[2020-07-30 06:01] LABS: Anion Gap 4 (5-15); BUN 46 mg/dL (7-18); BUN/Creat Ratio 25.4 RATIO (10-20); Calcium,Total 9.2 mg/dL (8.5-10.1); Chloride 103 mmol/L (98-107); Creatinine, Serum 1.81 mg/dL (0.55-1.02); EST Glomerular Filtration Rate 30 mL/min (>60); Est Glom Filt Rate - Afr Amer 36 mL/min (>60); Estimated Creatinine Clearance 32.51 ml/min; Glucose 87 mg/dL (74-106); Potassium 3.6 mmol/L (3.5-5.1); Sodium Level 138 mmol/L (136-145)
[2020-07-30] MEDS: dexAMETHasone 2 MG TABLET 3 MG PO (08:58)
[2020-07-30] MEDS: Iron Polysaccharide Complex 150 MG CAPSULE PO (08:58)
[2020-07-30] MEDS: Calcium Carbonate 500 MG Tablet 1000 MG PO ×2 (08:58→17:54)
[2020-07-30] MEDS: Multivitamins,Therapeutic Tablet 1 TABLET PO (08:58)
[2020-07-30] MEDS: 0.9% Saline Lock 10 ML Syringe IV ×2 (09:16→21:53)
[2020-07-30 10:00] VITALS: PULSE 63; O2SAT 95
[2020-07-30] MEDS: Alteplase 2 MG/2 ML Vial IV (10:23)
--- NOTE | 2020-07-30 10:24 | NURSING ---
Addendum entered by Jen Maradiaga 07/30/20 11:32: CATHFLO EFFECTIVE, ABLE TO FLUSH BOTH LUMENS AND GOOD BLOOD RETURN FOR BOTH. Original Note: TOTAL OCCLUSION TO DUAL PICC, ATTEMPTED TO GET CATHFLO IN BOTH, WAS ABLE TO GET APPROX 0.3ML IN RED LUMEN. WILL CHECK BACK IN 30 MINUTES.
[2020-07-30] MEDS: 0.9% Normal Saline 1,000 ML 75 ML IV (11:17)
[2020-07-30] MEDS: Tuberculin,Purif.prot.deriv. 50 TU/ML Vial 5 ML ID (11:45)
[2020-07-30 13:58] VITALS: BP 134/88; PULSE 64; RESP 20; TEMP 36.2; O2SAT 95
--- NOTE | 2020-07-30 15:14 | NURSING ---
wound vac dressing schedule changed to twice a week on Tuesday and
--- NOTE | 2020-07-30 17:46 | NURSING ---
Track Manager Note: Video call placed with resident to daughter and granddaughter. Resident asking when her daughter would be visiting. Daughter and I both reminded her of the current limitations due to COVID. Daughter very encouraging regarding therapy and her progress. Both thankful for call.
--- NOTE | 2020-07-30 18:04 | NURSING ---
Creatinine 1.81, and creatinine clearance 32.51, pharmacist Natalie called to clarify that it is ok to give lovenox, pharmacist instructed nurse to give lovenox, stating it is ok as long as creatinine clearance is above 30
--- NOTE | 2020-07-30 18:06 | CASEMGMT ---
Social Work IDT met with patient and dtr via conference call for care plan meeting. Discussed patient's progress in therapy. pt is max x2 for bed mobility, edgar lift, STS max x2 with platform walker. Pt is mod-max for UE ADLs, dependent x2 for LE ADLS, toileting at bed level. Pt is on soft, bite sized textures, thin liquid diet, and needing some assistance with holding cups,etc. due to shakiness. ST working on cognitive assessment and swallowing. Pt's alertness fluctuates. Recommending 24/7 care at this time. Pt is on a regular, FLOR diet, 50-100% intake, receiving Rodger and ensure. Pt is out of isolation 08/05, has wound vac, receiving IV fluids, pain meds and Ativan, and has padding on bedrails for safety. Pt's IV ATB stopped 07/28. ID to continue to evaluate need. [facility] and continued stay is not guaranteed. Explained insurance must see long term needs and/or continued significant progress in therapy. Encouraged dtr to begin thinking of alternative DC plan in case pt has not returned to [facility] at time of LCD by insurance. Dtr stated she has a SNF list and TOLU spencer from acute that she is working on. She will provide TOLU spencer to this worker once complete. SW to continue to assist with DC planning. Annette Kaplan, TATY TARIQW
[2020-07-30] MEDS: LORazepam 0.5 MG Tablet PO (21:43)
[2020-07-30] MEDS: MELATONIN 3 MG TABLET 6 MG PO (21:45)
[2020-07-30] MEDS: Sertraline 50 MG Tablet 150 MG PO (21:46)
[2020-07-31] MEDS: 0.9% Saline Lock 10 ML Syringe IV ×2 (00:31→14:06)
[2020-07-31] MEDS: 0.9% Normal Saline 1,000 ML 75 ML IV ×2 (00:32→14:10)
[2020-07-31 04:34] VITALS: BP 162/95; PULSE 76; RESP 16; TEMP 36.7; O2SAT 97
[2020-07-31] MEDS: Menthol/Lanolin/Calamine/Znox 113 GM Tube 1 APPLIC TOPICAL ×2 (04:41→21:24)
[2020-07-31] MEDS: Polyethylene Glycol 3350 17 GM PACKET PO (04:41)
[2020-07-31] MEDS: Senna/Docusate Sodium 1 Tablet 2 TABLET PO ×2 (04:42→17:52)
[2020-07-31] MEDS: Famotidine 20 MG Tablet PO ×2 (04:42→17:52)
[2020-07-31] MEDS: Nystatin Powder 15gm Bottle 1 APPLIC TOPICAL ×2 (04:43→21:23)
[2020-07-31] MEDS: levETIRAcetam 750 MG Tablet PO ×2 (04:43→17:51)
[2020-07-31 06:06] LABS: Anion Gap 1 (5-15); BUN 32 mg/dL (7-18); BUN/Creat Ratio 19.2 RATIO (10-20); Chloride 109 mmol/L (98-107); Creatinine, Serum 1.67 mg/dL (0.55-1.02); EST Glomerular Filtration Rate 33 mL/min (>60); Est Glom Filt Rate - Afr Amer 40 mL/min (>60); Estimated Creatinine Clearance 35.23 ml/min; Glucose 99 mg/dL (74-106); Potassium 3.5 mmol/L (3.5-5.1); Sodium Level 142 mmol/L (136-145)
[2020-07-31] MEDS: dexAMETHasone 2 MG TABLET 3 MG PO (09:05)
[2020-07-31] MEDS: Iron Polysaccharide Complex 150 MG CAPSULE PO (09:05)
[2020-07-31] MEDS: Multivitamins,Therapeutic Tablet 1 TABLET PO (09:06)
[2020-07-31] MEDS: Calcium Carbonate 500 MG Tablet 1000 MG PO ×2 (09:07→17:51)
[2020-07-31] MEDS: oxyCODONE 5 MG Tablet 10 MG PO (10:16)
--- NOTE | 2020-07-31 10:33 | NURSING ---
removed saline lock from right arm per rn.pt tolerated well.
--- NOTE | 2020-07-31 11:46 | NURSING ---
all care given in room due to pt in precautions for klebsiella and Acinetobacter.
--- NOTE | 2020-07-31 12:53 | NURSING ---
IN TO SEE PT AND SAMMY,AMY/WOUND NURSE CHANGED WOUND VAC.
[2020-07-31 13:41] VITALS: BP 128/74; PULSE 74; RESP 16; TEMP 36.3; O2SAT 96
--- NOTE | 2020-07-31 16:19 | PN.SURG_ITS ---
Patient Problems: Active and Suspected Problems (Last Reviewed 07/15/20 @ 19:[address] Lisa Ridley, DO) Debility (Acute) Traumatic hematoma of right lower leg with infection (Acute) Wrist fracture, bilateral (Acute) Subjective: Post op #15 Sitting in bed. - Physical Exam Vitals/I&O's: Vital Signs Temp Pulse Resp BP Pulse Ox 97.4 F L 74 16 128/74 H 96 07/31/20 13:41 07/31/20 13:41 07/31/20 13:41 07/31/20 13:41 07/31/20 13:41 Oxygen Delivery Method Room Air Weight: 190 lb 8 oz Body Mass Index (BMI) 29.5 Intake and Output for Last 24 Hours 07/29/20 07/30/20 07/31/20 23:59 23:59 23:59 Intake Total 720 / 720 1120 / 1120 2473.75 / 2473.75 Balance 720 / 720 1120 / 1120 2473.75 / 2473.75 General: Alert, Oriented x3, Cooperative HEENT: Atraumatic Oral: Moist Mucosa Lungs: Normal air movement Cardiovascular: Regular rate Abdomen: Soft Extremities: Capillary Refill Less than 3 Seconds, Edema Skin: Ulcer/ Wound - Right anterior leg wound is stable, beefy pink, granulation tissue present, decrease in depth of wound. Right posterior leg wound is stable, pink and decreasing in size. Wound VAC dressings are being changed now. She is tolerating the wound VAC well. Musculoskeletal: No Tenderness to Palpation of Joints or Extremities Neurological: Cranial nerves II-XII grossly intact Psych/Mental Status: Normal Affect, Appropriate Microbiology Past 72 Hours 07/28/20 11:35 Nasal Secretion SARS-CoV-2 Antigen (Rapid) - Final Laboratory Results 07/31/20 05:40: Sodium 142, Potassium 3.5, Chloride 109 H, Carbon Dioxide 32.0, Anion Gap 1 L, BUN 32 H, Creatinine 1.67 H, Estim Creat Clear Calc 35.23, Est GFR (MDRD) Af Amer 40 L, Est GFR (MDRD) Non-Af 33 L, BUN/Creatinine Ratio 19.2, Glucose 99, Calcium 9.0 Current Medications Acetaminophen (Acetaminophen 500 Mg Tablet) 1,000 mg PO Q6H PRN PRN PRN Reason: Pain Score 1-5 Last Admin: 07/24/20 11:26 Dose: 1,000 mg Documented by: Bisacodyl (Bisacodyl 10 Mg Suppository) 10 mg RECTAL DAILY PRN PRN Reason: Constipation Calamine/Phenol (Menthol/Lanolin/Calamine/Znox 113 Gm Tube) 1 applic TOPICAL 0600,2200 [facility]; Protocol Last Admin: 07/31/20 04:41 Dose: 1 applicatio Documented by: Calcium Carbonate (Calcium Carbonate 500 Mg Tablet) [facility] Last Admin: 07/31/20 09:07 Dose: 1,000 mg Documented by: Cholecalciferol (Cholecalciferol (Vit D3) 1,000 Unit (25mcg)) 2,000 unit PO DAILY [facility] Last Admin: 07/31/20 04:42 Dose: 2,000 unit Documented by: Dexamethasone (Dexamethasone 2 Mg Tablet) [facility] Last Admin: 07/31/20 09:05 Dose: 3 mg Documented by: Famotidine (Famotidine 20 Mg Tablet) 20 mg PO BID [facility] Last Admin: 07/31/20 04:42 Dose: 20 mg Documented by: Heparin Sodium (Beef Lung) (Heparin Pf Lock 10 Units/Ml 50 Units/5 Ml Syringe) 50 units IV UD PRN PRN Reason: PICC Line Heparin Flush Last Admin: 07/25/20 18:08 Dose: 50 units Documented by: Heparin Sodium (Beef Lung) (Heparin Pf Lock 10 Units/Ml 50 Units/5 Ml Syringe) 50 units IV UD PRN PRN Reason: PICC Line Heparin Flush Hydrocortisone (Hydrocortisone 2.5% Crm) 1 applic TOPICAL TID PRN PRN; Protocol PRN Reason: RASH/TOPICAL IRRITATION Sodium Chloride () 250 mls @ 15 mls/hr IV .[id number] PRN PRN Reason: Saline Flush Last Infusion: 07/30/20 11:48 Dose: Infused Documented by: Sodium Chloride () 250 mls @ 15 mls/hr IV .[id number] PRN PRN Reason: Additional IVPB Infusion Sodium Chloride () 1,000 mls @ 75 mls/hr IV .[id number] [facility] Last Admin: 07/31/20 14:10 Dose: 75 mls/hr Documented by: Levetiracetam (Levetiracetam 750 Mg Tablet) 750 mg PO BID [facility] Last Admin: 07/31/20 04:43 Dose: 750 mg Documented by: Lorazepam (Lorazepam 0.5 Mg Tablet) 0.25 mg PO Q6H PRN PRN PRN Reason: RESTLESSNESS Lorazepam (Lorazepam 0.5 Mg Tablet) 0.5 mg PO QHS [facility] Last Admin: 07/30/20 21:43 Dose: 0.5 mg Documented by: Magnesium Hydroxide (Magnesium Hydroxide 30 Ml Udc) 30 ml PO DAILY PRN PRN Reason: Constipation Melatonin (Melatonin 3 Mg Tablet) [facility] Last Admin: 07/30/20 21:45 Dose: 6 mg Documented by: Multivitamins (Multivitamins,Therapeutic Tablet) [facility] Last Admin: 07/31/20 09:06 Dose: 1 tablet Documented by: Nutritional Formula (Nutritional Supplement (Rodger) Packet) [facility] Last Admin: 07/31/20 09:05 Dose: 1 packet Documented by: Nutritional Formula (Lactose Free) (Ensure Enlive 120 Ml Liquid) 120 ml PO 4X/DAY [facility] Last Admin: 07/31/20 11:44 Dose: 120 ml Documented by: Nystatin (Nystatin Powder 15gm Bottle) 1 applic TOPICAL 0600,2200 [facility]; Protocol Last Admin: 07/31/20 04:43 Dose: 1 applicatio Documented by: Oxycodone HCl (Oxycodone 5 Mg Tablet) 10 mg PO Q4H PRN PRN PRN Reason: Pain Score 6-10 Last Admin: 07/31/20 10:16 Dose: 10 mg Documented by: Polyethylene Glycol (Polyethylene Glycol 3350 17 Gm Packet) 17 gm PO DAILY [facility] Last Admin: 07/31/20 04:41 Dose: 17 gm Documented by: Polysaccharide Iron Complex (Iron Polysaccharide Complex 150 Mg Capsule) [facility] Last Admin: 07/31/20 09:05 Dose: 150 mg Documented by: Senna/Docusate Sodium (Senna/Docusate Sodium 1 Tablet) 2 tablet PO BID [facility] Last Admin: 07/31/20 04:42 Dose: 2 tablet Documented by: Sertraline HCl (Sertraline 50 Mg Tablet) 150 mg PO QHS [facility] Last Admin: 07/30/20 21:46 Dose: 150 mg Documented by: Sodium Chloride (0.9% Saline Lock 10 Ml Syringe) 10 - 40 ml IV UD PRN PRN Reason: Open End PICC Flush Last Admin: 07/31/20 14:06 Dose: 20 ml Documented by: Sodium Chloride (0.9 % Nacl (Sterile) Posiflush 10 Ml) 10 - 40 ml IV UD PRN PRN Reason: Port access or dressing change Sodium Chloride (0.9% Saline Lock 10 Ml Syringe) 10 - 40 ml IV UD PRN PRN Reason: Open End PICC Flush Sodium Chloride (0.9 % Nacl (Sterile) Posiflush 10 Ml) 10 - 40 ml IV UD PRN PRN Reason: Port access or dressing change Medical Necessity - Tobacco Use Smoking Status: Current every day smoker Tobacco Use: Cigarettes Assessment/Plan All Active Problems (Last Reviewed 07/15/20 @ 19:[address] Lisa Ridley, DO) Debility (Acute) Traumatic hematoma of right lower leg with infection (Acute) Hematoma of right lower extremity (Acute) Abscess of right lower extremity (Acute) Wrist fracture, bilateral (Acute) 1. Traumatic infected necrotic hematoma abscess right anterior leg. 2. Chronic falls at home. 3. Smoker. 4. Glioblastoma multiforme status post craniectomy and chemoradiation on long- term dexamethasone and Keppra. 5. Multiple skin tears upper and lower extremities from her recent fall. 6. Recent bilateral wrist fractures, splinted. 7. Acute postoperative anemia from expected blood loss. Wounds are stable. No active bleeding. Wound VAC dressing changed earlier today. Operative cultures show Acinetobacter baumannii and Klebsiella oxytoca. She is on Tigecycline and Colistimethate. ID is consulted. Prealbumin was 13.9 on 07/17/20. Encourage nutritional supplementation with protein to help the healing process. After discharge from TCU, she [facility]. If a plateau develops during the healing process, will proceed with delayed closure with skin grafting. Encouraged patient to stop smoking as it may have deleterious effects on wound healing. Hgb 9.9 on 07/30/20. She is trending up. She has anemia of chronic disease, a cute on chronic, from expected blood loss.
[2020-07-31 21:20] VITALS: RESP 16; O2SAT 94
[2020-07-31] MEDS: Sertraline 50 MG Tablet 150 MG PO (21:21)
[2020-07-31] MEDS: LORazepam 0.5 MG Tablet PO (21:21)
[2020-07-31] MEDS: MELATONIN 3 MG TABLET 6 MG PO (21:23)
[2020-07-31] MEDS: Hydrocortisone 2.5% Crm 1 APPLIC TOPICAL (21:32)
[2020-08-01] MEDS: 0.9% Normal Saline 1,000 ML 75 ML IV ×2 (03:47→17:42)
[2020-08-01] MEDS: 0.9% Saline Lock 10 ML Syringe IV ×2 (03:48→13:34)
[2020-08-01] MEDS: Polyethylene Glycol 3350 17 GM PACKET PO (03:50)
[2020-08-01] MEDS: Menthol/Lanolin/Calamine/Znox 113 GM Tube 1 APPLIC TOPICAL ×2 (03:50→21:11)
[2020-08-01] MEDS: Hydrocortisone 2.5% Crm 1 APPLIC TOPICAL ×3 (03:50→20:35)
[2020-08-01] MEDS: Nystatin Powder 15gm Bottle 1 APPLIC TOPICAL ×2 (03:55→21:17)
[2020-08-01] MEDS: Famotidine 20 MG Tablet PO ×2 (03:55→17:02)
[2020-08-01] MEDS: Senna/Docusate Sodium 1 Tablet 2 TABLET PO ×2 (03:55→17:01)
[2020-08-01] MEDS: levETIRAcetam 750 MG Tablet PO ×2 (03:56→17:01)
[2020-08-01 03:59] VITALS: BP 133/88; PULSE 60; RESP 18; TEMP 36.9; O2SAT 96
[2020-08-01] MEDS: dexAMETHasone 2 MG TABLET 3 MG PO (08:56)
[2020-08-01] MEDS: Calcium Carbonate 500 MG Tablet 1000 MG PO ×2 (08:56→17:00)
[2020-08-01] MEDS: Iron Polysaccharide Complex 150 MG CAPSULE PO (08:56)
[2020-08-01] MEDS: Multivitamins,Therapeutic Tablet 1 TABLET PO (08:57)
--- NOTE | 2020-08-01 09:18 | MDS.RN ---
Information for the mds was obtained from review of the clinical record, interview of resident, staff, and direct observation of resident's care.
[2020-08-01 10:00] VITALS: PULSE 67; RESP 18; O2SAT 93
--- NOTE | 2020-08-01 12:42 | NURSING ---
Pt in room crying wanting to go home. Talked to pt stated she would call police if we did not let her out of here. Called Pt's daughter and she is talking with her on the phone at this time. Will continue to monitor.
[2020-08-01] MEDS: LORazepam 0.5 MG Tablet 0.25 MG PO (12:53)
[2020-08-01 15:30] VITALS: BP 212/65; PULSE 71; RESP 18; TEMP 36.8; O2SAT 94
--- NOTE | 2020-08-01 15:56 | NURSING ---
pt was upset earlier around 1530 and was kicking and yelling asking to take the BP cuff off BP read 212/65. Pt calmed down and BP was checked at this time BP 155/82.
[2020-08-01 16:01] VITALS: BP 155/62; PULSE 69
--- NOTE | 2020-08-01 16:15 | CASEMGMT ---
Social Work Notified Dr. Kirk of pt's increase in pain, being emotional, requesting to go home and wishes for hospice. spoke with pt and in agreement with hospice. Pt and nursing spoke with dtr. SW followed up with dtr and provided ongoing emotional support, supportive listening, answering questions about hospice and DC plans. Discussed pt can DC home but due to safety with attempting to get out of bed at times, increased confusion at night, recommending 24/7 supervision. Pt is more comfortable in bed and hospice staff can assist with personal care. Dtr stated she will talk with sister and niece who live at the house, but could hire aides out of pocket and TOLU/[facility]port will take time. Discussed pt transferring to SNF with hospice. Dtr's choices are the [facility] and [facility]. Explained pt would need TOLU pending number to admit and those facilities will have to accept with MCDP#, which does not always happen. Explained if pt goes home and does not go well, pt can always transfer to SNF. SW at SNF or hospice will continue to assist with TOLU process. Dtr stated pt is active with [facility] but would like [facility]. Explained insurance update 08/06, thus take time to grieve and process information, then talk to family over the weekend, and SW and dtr can reconvene Tuesday with outcomes, and goal to have pt DC'd by 08/06. Dtr agrees and expressed great appreciation for SW emotional and DC assistance. Referrals made to [facility], [facility] and [facility]. Contacted S for any update on TOLU spencer. SW to continue to follow. Annette Kaplan, TATY TARIQW
[2020-08-01] MEDS: oxyCODONE 5 MG Tablet 10 MG PO (21:08)
[2020-08-01] MEDS: LORazepam 0.5 MG Tablet PO (21:08)
[2020-08-01] MEDS: MELATONIN 3 MG TABLET 6 MG PO (21:13)
[2020-08-01] MEDS: Sertraline 50 MG Tablet 150 MG PO (21:13)
--- NOTE | 2020-08-02 00:05 | NURSING ---
Patient moved to room #1 to be closer to nurses station for safety.
[2020-08-02 02:02] VITALS: BP 122/61; PULSE 64; RESP 18; TEMP 37.1; O2SAT 93
[2020-08-02 04:59] VITALS: PULSE 62; RESP 16; O2SAT 97
[2020-08-02] MEDS: Famotidine 20 MG Tablet PO ×2 (05:13→17:12)
[2020-08-02] MEDS: levETIRAcetam 750 MG Tablet PO ×2 (05:13→17:12)
[2020-08-02] MEDS: Senna/Docusate Sodium 1 Tablet 2 TABLET PO ×2 (05:14→17:12)
[2020-08-02] MEDS: Polyethylene Glycol 3350 17 GM PACKET PO (05:14)
[2020-08-02] MEDS: Hydrocortisone 2.5% Crm 1 APPLIC TOPICAL (05:17)
[2020-08-02] MEDS: Nystatin Powder 15gm Bottle 1 APPLIC TOPICAL ×2 (05:18→22:21)
[2020-08-02] MEDS: Iron Polysaccharide Complex 150 MG CAPSULE PO (07:59)
[2020-08-02] MEDS: Calcium Carbonate 500 MG Tablet 1000 MG PO ×2 (07:59→17:12)
[2020-08-02] MEDS: dexAMETHasone 2 MG TABLET 3 MG PO (07:59)
[2020-08-02] MEDS: Multivitamins,Therapeutic Tablet 1 TABLET PO (07:59)
[2020-08-02] MEDS: 0.9% Saline Lock 10 ML Syringe IV (08:30)
[2020-08-02] MEDS: 0.9% Normal Saline 1,000 ML 75 ML IV ×2 (08:33→21:52)
[2020-08-02 13:28] VITALS: BP 104/55; PULSE 77; RESP 16; TEMP 36.6; O2SAT 96
[2020-08-02] MEDS: oxyCODONE 5 MG Tablet 10 MG PO (15:42)
[2020-08-02] MEDS: LORazepam 0.5 MG Tablet PO (21:52)
[2020-08-02] MEDS: Sertraline 50 MG Tablet 150 MG PO (21:53)
[2020-08-02] MEDS: MELATONIN 3 MG TABLET 6 MG PO (21:54)
[2020-08-02] MEDS: Menthol/Lanolin/Calamine/Znox 113 GM Tube 1 APPLIC TOPICAL (21:56)
[2020-08-03 05:00] VITALS: BP 152/71; PULSE 67; RESP 18; TEMP 36.7; O2SAT 94
[2020-08-03] MEDS: Polyethylene Glycol 3350 17 GM PACKET PO (05:16)
[2020-08-03] MEDS: Hydrocortisone 2.5% Crm 1 APPLIC TOPICAL (05:16)
[2020-08-03] MEDS: Famotidine 20 MG Tablet PO ×2 (05:17→16:53)
[2020-08-03] MEDS: Menthol/Lanolin/Calamine/Znox 113 GM Tube 1 APPLIC TOPICAL ×2 (05:18→21:57)
[2020-08-03] MEDS: Nystatin Powder 15gm Bottle 1 APPLIC TOPICAL ×2 (05:18→21:57)
[2020-08-03] MEDS: Senna/Docusate Sodium 1 Tablet 2 TABLET PO (05:18)
[2020-08-03] MEDS: levETIRAcetam 750 MG Tablet PO ×2 (05:18→16:53)
[2020-08-03] MEDS: dexAMETHasone 2 MG TABLET 3 MG PO (08:41)
[2020-08-03] MEDS: Multivitamins,Therapeutic Tablet 1 TABLET PO (08:41)
[2020-08-03] MEDS: Iron Polysaccharide Complex 150 MG CAPSULE PO (08:41)
[2020-08-03] MEDS: Calcium Carbonate 500 MG Tablet 1000 MG PO ×2 (08:41→16:52)
[2020-08-03] MEDS: 0.9% Normal Saline 1,000 ML 75 ML IV (11:11)
[2020-08-03] MEDS: LORazepam 0.5 MG Tablet 0.25 MG PO (11:43)
[2020-08-03 13:51] VITALS: BP 114/72; PULSE 76; RESP 16; TEMP 36.4; O2SAT 94
--- NOTE | 2020-08-03 15:04 | NURSING ---
wound vac canister changed d/t being full. good seal.
[2020-08-03] MEDS: oxyCODONE 5 MG Tablet 10 MG PO (15:49)
[2020-08-03] MEDS: LORazepam 0.5 MG Tablet PO (21:54)
[2020-08-03] MEDS: Sertraline 50 MG Tablet 150 MG PO (21:55)
[2020-08-03] MEDS: MELATONIN 3 MG TABLET 6 MG PO (21:55)
[2020-08-03 22:00] VITALS: PULSE 64; RESP 18; O2SAT 95
[2020-08-04] MEDS: 0.9% Normal Saline 1,000 ML 75 ML IV (01:06)
[2020-08-04 05:00] VITALS: BP 174/76; RESP 18; TEMP 36.9; O2SAT 97
[2020-08-04] MEDS: Menthol/Lanolin/Calamine/Znox 113 GM Tube 1 APPLIC TOPICAL ×2 (06:24→22:01)
[2020-08-04] MEDS: levETIRAcetam 750 MG Tablet PO ×2 (06:24→18:09)
[2020-08-04] MEDS: Famotidine 20 MG Tablet PO ×2 (06:24→18:10)
[2020-08-04] MEDS: Nystatin Powder 15gm Bottle 1 APPLIC TOPICAL ×2 (06:25→22:03)
--- NOTE | 2020-08-04 07:19 | NURSING ---
This amberes removed wound vac this am applied a wet to dry dressing to patient right anterior and posterior samuel area. Luis A Barreto reinforced dressing this am before this nurse removed the wound vac. Continue to get a low pressure on the monitor but the seal was good per the wound vac.
[2020-08-04] MEDS: Calcium Carbonate 500 MG Tablet 1000 MG PO ×2 (08:52→18:09)
[2020-08-04] MEDS: dexAMETHasone 2 MG TABLET 3 MG PO (08:53)
[2020-08-04] MEDS: Multivitamins,Therapeutic Tablet 1 TABLET PO (08:53)
[2020-08-04] MEDS: Iron Polysaccharide Complex 150 MG CAPSULE PO (08:53)
--- NOTE | 2020-08-04 09:22 | NURSING ---
This nurse called Dr. Cohen's office to ask whether pins were internally or externally placed and explained daughter wants to take pt home with hospice but daughter and hospice would like the pins removed before pt d/c's home with hospice if pins are external. Office clinical specialists states she will ask the doctor and get back to us. Pt has appointment at [facility] today and they will let us know what they decide to do.
[2020-08-04 10:00] VITALS: PULSE 77; O2SAT 96
--- NOTE | 2020-08-04 12:06 | CASEMGMT ---
Social Work Spoke with pt's dtr and hospice about wishes for pt to DC home with hospice 08/05. Hospice to deliver DME to the home this date. Pt is scheduled to get pins removed by ortho this date. Pt will get wound vac removed prior to DC. Cot transport scheduled through [facility] for 11 am. Plan: Home with [facility] 08/05 with family support. TATY ZarateW
--- NOTE | 2020-08-04 12:47 | NURSING ---
Recieved a call from the nursing staff stating that patient is being discharged home tomorrow with Hospice. the wound VAC had been removed this am per nursing staff and a wet to dry dressing was applied. pt will be leaving soon for an appt with Dr Cohen. will leave wound VAC off and change dressings again tomorrow prior to discharge home. wound VAC has been painful for pt. will monitor.
[2020-08-04 14:45] VITALS: BP 99/63; PULSE 77; RESP 16; TEMP 36.1; O2SAT 94
--- NOTE | 2020-08-04 16:15 | NURSING ---
Pt returned from Ortho appointment, eternal pins were removed from kassandra wrists today, pin sites located to bilateral wrists close to thumb covered in adaptic by [facility] ortho, old skin tear scabbed over TIRE TRUCKER to right elbox, skin tear to right posterior wrist and left posterior forearm also covered in adaptic, removable wrist braces to kassandra wrists. Per daughter pt is to be picked around 11am tomorrow and adaptic to kassandra wrists to be changed daily per [facility] orth[facility], pt did not return from appointment with any paperwork. RN updated
[2020-08-04] MEDS: Senna/Docusate Sodium 1 Tablet 2 TABLET PO (18:10)
[2020-08-04] MEDS: oxyCODONE 5 MG Tablet 10 MG PO (18:15)
--- NOTE | 2020-08-04 18:44 | DCINST_ITS ---
- Discharge Diagnoses Current Active Problems: Current Active and Chronic Problems (Last Reviewed 07/15/20 @ 19:[address] Lisa Ridley, DO) Debility (Acute) Traumatic hematoma of right lower leg with infection (Acute) Insomnia (Chronic) Wrist fracture, bilateral (Acute) GERD (gastroesophageal reflux disease) (Chronic) Seizure disorder (Chronic) Hypertension (Chronic) Anxiety (Chronic) Chronic pain (Chronic) Glioblastoma multiforme (Chronic) Wound, open, lower limb with complication (Chronic) You will use the following diet at home:: No restrictions, Regular Your food should be the consistency of: Regular Your liquids should be the consistency of: Regular/Thin Discharge Activity: Return to Normal Activity Weight Bearing Status: Weight bearing as tolerated Call your doctor if you observe: Fever of 101 or Higher, Inability to urinate, Inability to have a bowel movement, Shortness of breath, Chest pain, Uncontrolled pain Allergies/Adverse Reactions: Allergies adhesive tape Adverse Reaction (Verified 04/02/20 15:11) VERY THIN STEROID SKIN WILL REMOVE SKIN IF ON TOO LONG bee Allergy (Uncoded 04/02/20 15:11) Hives Medications to take at Discharge Dexamethasone 3 mg PO DAILY 03/02/17 Melatonin 6 mg PO QHS 01/03/20 Sertraline HCl [Zoloft] 150 mg PO QHS 01/03/20 Famotidine 20 mg PO BID 01/08/20 Levetiracetam [Keppra] 750 mg PO BID 01/08/20 Lorazepam 1 mg PO QHS 07/04/20 Acetaminophen [Tylenol] 1,000 mg PO Q6H PRN PRN tab 08/04/20 Hydrocortisone 2.5% Crm [Hytone] 1 applic TOPICAL TID PRN PRN #1 tube 08/04/20 Lorazepam [Ativan] 0.25 mg PO Q6H PRN PRN tab 08/04/20 Menthol/Lanolin/Calamine/Znox [Calmoseptine Ointment] 1 applic TOPICAL 0600,2200 tube 08/04/20 Nystatin Powder [Mycostatin Powder] 1 applic TOPICAL 0600,2200 bottle 08/04/20 Oxycodone [Oxyir] 10 mg PO Q4H PRN PRN #36 tablet 08/04/20 Polyethylene Glycol 3350 [Miralax] 17 gm PO DAILY #30 packet 08/04/20 Senna/Docusate Sodium [Senokot-S] 2 tab PO BID #120 tab 08/04/20 The following prescriptions were given: Hydrocortisone 2.5% Crm [Hytone] 1 applic TOPICAL TID PRN PRN #1 tube PRN Reason: RASH/TOPICAL IRRITATION Transmission Status: Pending to [id number] Polyethylene Glycol 3350 [Miralax] 17 gm PO DAILY #30 packet Transmission Status: Pending to [id number] Oxycodone [Oxyir] 10 mg PO Q4H PRN PRN #36 tablet PRN Reason: Pain Score 6-10 Transmission Status: Received by [id number] Senna/Docusate Sodium [Senokot-S] 2 tab PO BID #120 tab Transmission Status: Pending to [id number] Primary Care Physician: Loc Arizmendi DO [Primary Care Provider] - Please follow up with your Primary Care Physician in: As needed. Test Results: Test results from this visit will be discussed in further detail at your follow- up appointment, if applicable. Please Follow Up With: Rell Cohen MD When: N/A. Please Follow Up With: Kei Moya MD When: N/A. Please Follow Up With: Christiano Funez MD When: N/A. Proposed Discharge Date: 08/05/20
--- NOTE | 2020-08-04 18:46 | DS.PCM_ITS ---
Discharge Date and Diagnosis - Problem List Patient Problems: Active and Suspected Problems (Last Reviewed 07/15/20 @ 19:[address] Lisa Ridley DO) Debility (Acute) Traumatic hematoma of right lower leg with infection (Acute) Wrist fracture, bilateral (Acute) Date of Admission: 07/22/20 Date of Discharge: 08/05/20 - Primary Discharge Diagnosis Acute Problems: Active Problems (Last Reviewed 07/15/20 @ 19:[address] Lisa Ridley DO) Debility (Acute) Traumatic hematoma of right lower leg with infection (Acute) Wrist fracture, bilateral (Acute) - Secondary Discharge Diagnosis Chronic Problems: Chronic Problems (Last Reviewed 07/15/20 @ 19:[address] Lisa Ridley DO) Insomnia (Chronic) Confusion (Chronic) Ulcer of left lower extremity with fat layer exposed (Chronic) Status post skin graft (Chronic) Venous insufficiency of both lower extremities (Chronic) GERD (gastroesophageal reflux disease) (Chronic) Seizure disorder (Chronic) Hypertension (Chronic) Anxiety (Chronic) Chronic pain (Chronic) Neuropathic pain (Chronic) Other complications of skin graft (allograft) (autograft) (Chronic) Failed skin graft (Chronic) Complication of skin graft (Chronic) Glioblastoma multiforme (Chronic) Ulcers of both lower legs (Chronic) multiple infected ulcers bilateral legs L97.919 Wound, open, lower limb with complication (Chronic) Hospital Course and Treatment Imaging Results: 07/22/20 15:53 Diet: Regular - General Food consistency:: Regular Liquid Consistency:: Regular/Thin Dietary Modifications:: No Added Salt Is pt able to select menu?: No Diet Comments: Easy to chew foods/softer foods Microbiology 08/04/20 11:30 Nasal Secretion SARS-CoV-2 Antigen (Rapid) - Final Consultations 07/22/20 16:16 Consult: Onc/Wound/psychologist personnel Routine Comment: Wound Vac Operations: None Procedures: None Summary of Care Provided: The patient is a 60 year old Female with below past medical history hospitalized for right lower extremity wound/abscess requiring debridement, 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 Resident tired of fighting, she is dying. Discharge home with [facility], Family support. Patient Problems: Active and Suspected Problems (Last Reviewed 07/15/20 @ 19:[address] Lisa Ridley, DO) Debility (Acute) Traumatic hematoma of right lower leg with infection (Acute) Wrist fracture, bilateral (Acute) - Physical Exam Vitals/I&O's: Vital Signs Temp Pulse Resp BP Pulse Ox 97.0 F L 77 16 99/63 94 08/04/20 14:45 08/04/20 14:45 08/04/20 14:45 08/04/20 14:45 08/04/20 14:45 Oxygen Delivery Method Room Air Weight: 86.409 kg Body Mass Index (BMI) 29.5 Intake and Output for Last 24 Hours 08/02/20 08/03/20 08/04/20 23:59 23:59 23:59 Intake Total 2838.75 / 2838.75 1638.75 / 1638.75 2360 / 2360 Balance 2838.75 / 2838.75 1638.75 / 1638.75 2360 / 2360 Microbiology Past 72 Hours 08/04/20 11:30 Nasal Secretion SARS-CoV-2 Antigen (Rapid) - Final Current Medications Acetaminophen (Acetaminophen 500 Mg Tablet) 1,000 mg PO Q6H PRN PRN PRN Reason: Pain Score 1-5 Last Admin: 07/24/20 11:26 Dose: 1,000 mg Documented by: Bisacodyl (Bisacodyl 10 Mg Suppository) 10 mg RECTAL DAILY PRN PRN Reason: Constipation Calamine/Phenol (Menthol/Lanolin/Calamine/Znox 113 Gm Tube) 1 applic TOPICAL 0600,2200 [facility]; Protocol Last Admin: 08/04/20 06:24 Dose: 1 applicatio Documented by: Calcium Carbonate ([facility] Carbon[facility] 500 [facility] Last Admin: 08/04/20 18:09 Dose: 1,000 mg Documented by: Cholecalciferol (Cholecalciferol (Vit D3) 1,000 Unit (25mcg)) 2,000 unit PO DAILY [facility] Last Admin: 08/04/20 06:24 Dose: 2,000 unit Documented by: Dexamethasone (Dexamethasone 2 Mg Tablet) [facility] Last Admin: 08/04/20 08:53 Dose: 3 mg Documented by: Famotidine (Famotidine 20 Mg Tablet) 20 mg PO BID [facility] Last Admin: 08/04/20 18:10 Dose: 20 mg Documented by: Heparin Sodium (Beef Lung) (Heparin Pf Lock 10 Units/Ml 50 Units/5 Ml Syringe) 50 units IV UD PRN PRN Reason: PICC Line Heparin Flush Last Admin: 07/25/20 18:08 Dose: 50 units Documented by: Heparin Sodium (Beef Lung) (Heparin Pf Lock 10 Units/Ml 50 Units/5 Ml Syringe) 50 units IV UD PRN PRN Reason: PICC Line Heparin Flush Hydrocortisone (Hydrocortisone 2.5% Crm) 1 applic TOPICAL TID PRN PRN; Protocol PRN Reason: RASH/TOPICAL IRRITATION Last Admin: 08/03/20 05:16 Dose: 1 applicatio Documented by: Sodium Chloride () 250 mls @ 15 mls/hr IV .[id number] PRN PRN Reason: Saline Flush Last Infusion: 07/30/20 11:48 Dose: Infused Documented by: Sodium Chloride () 250 mls @ 15 mls/hr IV .[id number] PRN PRN Reason: Additional IVPB Infusion Levetiracetam (Levetiracetam 750 Mg Tablet) 750 mg PO BID [facility] Last Admin: 08/04/20 18:09 Dose: 750 mg Documented by: Lorazepam (Lorazepam 0.5 Mg Tablet) 0.25 mg PO Q6H PRN PRN PRN Reason: RESTLESSNESS Last Admin: 08/03/20 11:43 Dose: 0.25 mg Documented by: Lorazepam (Lorazepam 0.5 Mg Tablet) 0.5 mg PO QHS [facility] Last Admin: 08/03/20 21:54 Dose: 0.5 mg Documented by: Magnesium Hydroxide (Magnesium Hydroxide 30 Ml Udc) 30 ml PO DAILY PRN PRN Reason: Constipation Melatonin (Melatonin 3 Mg Tablet) 6 mg PO QHS [facility] Last Admin: 08/03/20 21:55 Dose: 6 mg Documented by: Multivitamins (Multivitamins,Therapeutic Tablet) [facility] Last Admin: 08/04/20 08:53 Dose: 1 tablet Documented by: Nutritional Formula (Nutritional Supplement (Rodger) Packet) [facility] Last Admin: 08/04/20 18:09 Dose: 1 packet Documented by: Nutritional Formula (Lactose Free) (Ensure Enlive 120 Ml Liquid) 120 ml PO 4X/DAY [facility] Last Admin: 08/04/20 18:08 Dose: 120 ml Documented by: Nystatin (Nystatin Powder 15gm Bottle) 1 applic TOPICAL 0600,2200 [facility]; Protocol Last Admin: 08/04/20 06:25 Dose: 1 applicatio Documented by: Oxycodone HCl (Oxycodone 5 Mg Tablet) 10 mg PO Q4H PRN PRN PRN Reason: Pain Score 6-10 Last Admin: 08/04/20 18:15 Dose: 10 mg Documented by: Polyethylene Glycol (Polyethylene Glycol 3350 17 Gm Packet) 17 gm PO DAILY [facility] Last Admin: 08/04/20 06:24 Dose: Not Given Documented by: Polysaccharide Iron Complex (Iron Polysaccharide Complex 150 Mg Capsule) [facility] Last Admin: 08/04/20 08:53 Dose: 150 mg Documented by: Senna/Docusate Sodium (Senna/Docusate Sodium 1 Tablet) 2 tablet PO BID [facility] Last Admin: 08/04/20 18:10 Dose: 2 tablet Documented by: Sertraline HCl (Sertraline 50 Mg Tablet) 150 mg PO QHS [facility] Last Admin: 08/03/20 21:55 Dose: 150 mg Documented by: Sodium Chloride (0.9% Saline Lock 10 Ml Syringe) 10 - 40 ml IV UD PRN PRN Reason: Open End PICC Flush Last Admin: 08/02/20 08:30 Dose: 20 ml Documented by: Sodium Chloride (0.9 % Nacl (Sterile) Posiflush 10 Ml) 10 - 40 ml IV UD PRN PRN Reason: Port access or dressing change Sodium Chloride (0.9% Saline Lock 10 Ml Syringe) 10 - 40 ml IV UD PRN PRN Reason: Open End PICC Flush Sodium Chloride (0.9 % Nacl (Sterile) Posiflush 10 Ml) 10 - 40 ml IV UD PRN PRN Reason: Port access or dressing change Discharge Diet: No Restrictions Discharge Activity: Return to Normal Activity Weight Bearing Status: Weight bearing as tolerated Call your doctor if you observe: Fever of 101 or Higher, Inability to urinate, Inability to have a bowel movement, Shortness of breath, Chest pain, Uncontrolled pain Home Medications: Medications to take at Discharge Dexamethasone 3 mg PO DAILY 03/02/17 Melatonin 6 mg PO QHS 06/18/20 Sertraline HCl [Zoloft] 150 mg PO QHS 01/03/20 Famotidine 20 mg PO BID 01/08/20 Levetiracetam [Keppra] 750 mg PO BID 01/08/20 Lorazepam 1 mg PO QHS 07/04/20 Acetaminophen [Tylenol] 1,000 mg PO Q6H PRN PRN tab 08/04/20 Hydrocortisone 2.5% Crm [Hytone] 1 applic TOPICAL TID PRN PRN #1 tube 08/04/20 Lorazepam [Ativan] 0.25 mg PO Q6H PRN PRN tab 08/04/20 Menthol/Lanolin/Calamine/Znox [Calmoseptine Ointment] 1 applic TOPICAL 0600,2200 tube 08/04/20 Nystatin Powder [Mycostatin Powder] 1 applic TOPICAL 0600,2200 bottle 08/04/20 Oxycodone [Oxyir] 10 mg PO Q4H PRN PRN #36 tablet 08/04/20 Polyethylene Glycol 3350 [Miralax] 17 gm PO DAILY #30 packet 08/04/20 Senna/Docusate Sodium [Senokot-S] 2 tab PO BID #120 tab 08/04/20 Following Prescriptions Were Given to Patient: Hydrocortisone 2.5% Crm [Hytone] 1 applic TOPICAL TID PRN PRN #1 tube PRN Reason: RASH/TOPICAL IRRITATION Transmission Status: [facility] to [id number] Polyethylene Glycol 3350 [Miralax] 17 gm PO DAILY #30 packet Transmission Status: Pending to [id number] Oxycodone [Oxyir] 10 mg PO Q4H PRN PRN #36 tablet PRN Reason: Pain Score 6-10 Transmission Status: Received by [id number] Senna/Docusate Sodium [Senokot-S] 2 tab PO BID #120 tab Transmission Status: Pending to [id number] Primary Care Physician: Loc Arizmendi DO [Primary Care Provider] - Please follow up with your Primary Care Physician in: As needed. Please Follow Up With: Rell Cohen MD When: N/A. Please Follow Up With: Kei Moya MD When: N/A. Please Follow Up With: Christiano Funez MD When: N/A. Disposition: Home with Hospice Minutes spent on discharge:: 35 Patient Condition:: Poor Medical Necessity - Tobacco Use Smoking Status: Current every day smoker Tobacco Use: Cigarettes Meaningful Use Info Meaningful Use Diagnoses (Choose all that apply): None applicable
--- NOTE | 2020-08-04 20:10 | NURSING ---
Patient agitated with staff. Patient refusing all oral medications. Patient trying to get out of bed without staff assistance. Dr. Kirk notified of this, new orders given.
[2020-08-04] MEDS: LORazepam 2 MG/ML Syringe 1 MG IM (20:27)
[2020-08-04] MEDS: LORazepam 0.5 MG Tablet PO (21:58)
[2020-08-04] MEDS: MELATONIN 3 MG TABLET 6 MG PO (22:00)
[2020-08-04] MEDS: Sertraline 50 MG Tablet 150 MG PO (22:01)
--- NOTE | 2020-08-04 22:44 | NURSING ---
Noted skin tear to left upper arm with removal of picc dressing, adaptic and gauze applied under iv opsite and secured with additional tape
[2020-08-05] MEDS: Senna/Docusate Sodium 1 Tablet 2 TABLET PO (04:40)
[2020-08-05] MEDS: levETIRAcetam 750 MG Tablet PO (04:40)
[2020-08-05] MEDS: Famotidine 20 MG Tablet PO (04:40)
[2020-08-05] MEDS: Menthol/Lanolin/Calamine/Znox 113 GM Tube 1 APPLIC TOPICAL (04:45)
[2020-08-05] MEDS: Hydrocortisone 2.5% Crm 1 APPLIC TOPICAL (04:45)
[2020-08-05] MEDS: Nystatin Powder 15gm Bottle 1 APPLIC TOPICAL (04:46)
[2020-08-05 04:50] VITALS: BP 160/92; PULSE 65; RESP 16; TEMP 36.9; O2SAT 95
[2020-08-05] MEDS: dexAMETHasone 2 MG TABLET 3 MG PO (08:46)
[2020-08-05] MEDS: Iron Polysaccharide Complex 150 MG CAPSULE PO (08:46)
[2020-08-05] MEDS: Multivitamins,Therapeutic Tablet 1 TABLET PO (08:47)
[2020-08-05] MEDS: Calcium Carbonate 500 MG Tablet 1000 MG PO (08:47)
[2020-08-05] MEDS: oxyCODONE 5 MG Tablet 10 MG PO (09:00)
[2020-08-05 09:07] VITALS: BP 96/64; PULSE 77; RESP 18; TEMP 37.6; O2SAT 94
[2020-08-05 10:00] VITALS: PULSE 77; RESP 18; O2SAT 94
== END 2020-08-05 11:05 | disposition hospice, home (50) | DRG 560 ==
PROVIDERS: Admitting Provider Family Medicine Geriatric Medicine; PCP Student in an Organized Health Care Education/Training Program; Referring Provider Family Medicine Geriatric Medicine; Visit Provider Family Medicine Geriatric Medicine
DX: S62.102D Fracture of unspecified carpal bone, left wrist, subsequent encounter for fracture with routine healing (principal); C71.9 Malignant neoplasm of brain, unspecified; Z16.30 Resistance to unspecified antimicrobial drugs; S62.101D Fracture of unspecified carpal bone, right wrist, subsequent encounter for fracture with routine healing; W19.XXXD Unspecified fall, subsequent encounter; G40.909 Epilepsy, unspecified, not intractable, without status epilepticus; Z23 Encounter for immunization; K21.9 Gastro-esophageal reflux disease without esophagitis; I10 Essential (primary) hypertension; S80.11XD Contusion of right lower leg, subsequent encounter; F41.9 Anxiety disorder, unspecified; G89.29 Other chronic pain; F17.210 Nicotine dependence, cigarettes, uncomplicated; F32.9 Major depressive disorder, single episode, unspecified; S81.811D Laceration without foreign body, right lower leg, subsequent encounter; L08.9 Local infection of the skin and subcutaneous tissue, unspecified; D50.0 Iron deficiency anemia secondary to blood loss (chronic); B96.89 Other specified bacterial agents as the cause of diseases classified elsewhere
CPT/HCPCS: 80048; 85025; 87426; 87635; 90732; 92507; 92523; 92610; 97110; 97163; 97167; 97530; 97535; 97802; 99406; G0009; J2997; J7030; J7050; U0005; A4216; J3243; J3490; U0003